=== PATIENT | female | born 1950 | race Caucasian/White ===

== ENCOUNTER → 2018-07-31 08:36 | Outpatient (CLI) | payer MEDICARE, OTHER, SELFPAY | PROVIDERS: PCP Nurse Practitioner Family; Visit Provider Physician Assistant | DX: R05 Cough (principal) | CPT/HCPCS: 87070; 87205 ==

== ENCOUNTER → 2018-12-16 09:51 | Outpatient (CLI) | payer MEDICARE, OTHER, SELFPAY ==
--- NOTE | 2018-12-16 | CA_ITS ---
PROCEDURE: 2-D M-mode and color Doppler study INDICATIONS FOR THE TEST: Chest pain COPD Heart Murmur Tobacco Smoking Palpitations+ Fatigue Syncope Edema Hypertension+Diabetes Mellitus Rheumatic Fever SOB+FERNANDEZ Obesity Hyperlipidemia+ Family History HD Additional History stents,cad,cabg PATIENT INFORMATION HEIGHT: 64 WEIGHT:187 GENDER: Female B/P:160/85 2-D/M-MODE INTERPRETATION: 2-D MEASUREMENTS OBSERVED VALUES IN CMS Right Ventricular Dimension (RVDd) 2.5 Interventricular Septum (Thickness)(IVsd) 0.9 Left Ventricular Internal Dimensions(LVIDd) 4.3 Left Ventricular Posterior Wall (Thickness)(LVPWd) 1.1 Aortic Root 3.0 Aortic Cusp Separation 1.6 Left Atrial Dimensions (LAD) 4.2 2D 1. Left atrium is mildly enlarged, left ventricle is mildly dilated, there is mild concentric left ventricular hypertrophy, visually estimated ejection fraction 50% with no regional wall motion abnormality. 2. The right atrium is mildly enlarged, right ventricle is mildly dilated with normal contractility. 3. The aortic valve is minimally thickened and fibrosed. 4. The mitral and tricuspid valve leaflets are minimally thickened. 5. The pulmonic valve is poorly visualized. 6. No significant pericardial effusion noted. DOPPLER INTERROGATION: Doppler interrogation of the aortic, mitral and tricuspid valvular presence of mild mitral and tricuspid regurgitation, tricuspid regurgitation jet velocity is inadequate for calculation of the right ventricular systolic pressure, diastolic parameters are inconclusive. CONCLUSION: 1. Biatrial enlargement, mildly dilated left ventricle, visually estimated ejection fraction of 50% with no regional wall motion abnormality, diastolic parameters are inconclusive. 2. Mildly enlarged right ventricle with normal contractility. 3. Mild mitral and tricuspid regurgitation 4. No significant pericardial effusion noted.
== END ==
PROVIDERS: PCP Nurse Practitioner Family; Visit Provider Nurse Practitioner Family
DX: R00.2 Palpitations (principal); I48.91 Unspecified atrial fibrillation; I25.10 Atherosclerotic heart disease of native coronary artery without angina pectoris
CPT/HCPCS: 93306

== ENCOUNTER → 2018-12-26 07:10 | Outpatient (CLI) | payer MEDICARE, OTHER, SELFPAY ==
--- NOTE | 2018-12-26 07:12 | NM_ITS ---
History and Indications: Hyperlipidemia, coronary artery disease, atrial fibrillation, status post bypass surgery. Procedure: Patient received 0.4 mg of intravenous Lexiscan, resting heart rate was 61 bpm resting blood pressure 157/82. With Lexiscan maximum heart rate achieved was 84 bpm which is less than 85% of the maximum predicted heart rate and a blood pressure was 139/88. With Lexiscan patient complained of shortness of breath and headache. Electrocardiogram: Resting echocardiogram showed atrial fibrillation nonspecific ST-T changes, with Lexiscan there is less than 1.[address] segment depression noted from the baseline EKG. The EKG portion of the Lexiscan Myoview is nondiagnostic. Cardiac stress and resting SPECT images: Cardiac stress and resting SPECT images were obtained using technetium 99 Myoview 31.8 mCi stress and 10.1 mCi at rest. Gated SPECT further analysis of segmental wall motion and calculation of the ejection fraction also done. Cardiac stress and resting SPECT show uniform myocardial activity without segmental abnormality, computer derived ejection fraction is 55% with no regional wall motion abnormality, right ventricle is normal size and contractility. Conclusion: 1. The EKG portion of the Lexiscan Myoview is nondiagnostic. 2. No scintigraphic evidence of reversible ischemia seen, greater derived ejection fraction is 55% with no regional wall motion abnormality, right ventricle is normal size and contractility. 3. Normal Lexiscan Myoview study.
--- NOTE | 2018-12-26 07:12 | CI_ITS ---
Cerebrovascular Exam Indications: 780.4 Dizziness and giddiness. AF IMPRESSIONS 1. The bilateral vertebral arteries are patent with normal antegrade flow. 2. Study suggests less than 20% stenosis involving the right internal carotid artery and the left internal carotid artery. 3. Tortuous carotid arteries seen bilaterally. Carotid duplex study. Complete study and Doppler flow study including spectral analysis, color and [place] scale imaging. Height: Height: 162.6cm. Height: 64in. Weight: Weight: 84.8kg. Weight: 186.6lb. Body mass index: BMI: 32.1kg/m^2. Body surface area: BSA: 1.99m^2. Location: Vascular laboratory. Patient status: Outpatient. Tables: Arterial flow: + +--------+--------+ Location V sys V ed + +--------+--------+ Right CCA - proximal 69.1cm/s 20.4cm/s + +--------+--------+ Right CCA - distal 53.4cm/s 17.3cm/s + +--------+--------+ Right ECA 63.6cm/s -------- + +--------+--------+ Right ICA - proximal 53.4cm/s 12.6cm/s + +--------+--------+ Right ICA - mid 64.4cm/s 26.7cm/s + +--------+--------+ Right ICA - distal 54.2cm/s 20.4cm/s + +--------+--------+ Right vertebral 46.4cm/s -------- + +--------+--------+ Left CCA - proximal 64cm/s 18.8cm/s + +--------+--------+ Left CCA - distal 40.1cm/s 16.5cm/s + +--------+--------+ Left ECA 63.6cm/s -------- + +--------+--------+ Left ICA - proximal 40.9cm/s 15.7cm/s + +--------+--------+ Left ICA - mid 77.8cm/s 27.5cm/s + +--------+--------+ Left ICA - distal 44cm/s 18.1cm/s + +--------+--------+ Left vertebral 36.9cm/s -------- + +--------+--------+ Velocity ratios: + + + + + + Right, V sys Right, V ed Left, V sys Left, V ed + + + + + + Max ICA/dist CCA 1.21 1.54 1.94 1.67 + + + + + + (Report amended ) Electronically signed by: Zhao Paul [id number]
--- NOTE | 2018-12-26 09:51 | HMH.ITSHM ---
Current Home Medications as stated by this patient Supriya Andres or call center support representative. []eliquis atorvastatin asa metoprolol
== END ==
PROVIDERS: PCP Nurse Practitioner Family; Visit Provider Internal Medicine Cardiovascular Disease
DX: E66.9 Obesity, unspecified (principal); E78.5 Hyperlipidemia, unspecified; I10 Essential (primary) hypertension; I25.10 Atherosclerotic heart disease of native coronary artery without angina pectoris; I25.2 Old myocardial infarction; I48.91 Unspecified atrial fibrillation; J44.9 Chronic obstructive pulmonary disease, unspecified; R06.83 Snoring; R09.89 Other specified symptoms and signs involving the circulatory and respiratory systems; R40.0 Somnolence; R53.83 Other fatigue; Z87.891 Personal history of nicotine dependence; Z95.1 Presence of aortocoronary bypass graft
CPT/HCPCS: 78452; 93017; 93880; A9502; J2785

== ENCOUNTER → 2019-01-16 11:45 | Outpatient (CLI) | payer MEDICARE, OTHER, SELFPAY ==
--- NOTE | 2019-01-16 12:00 | XR_ITS ---
XR chest 2V HISTORY: ITS.REASON: amiodarone therapy/pre start ORDERING PHYSICIAN: Heath Noriega MD PATIENT AGE: 68 years COMPARISON: None FINDINGS: Prior CABG. Normal heart size. No lobar consolidation or collapse or significant chronic changes evident. Minimal increased density is present in the left CP angle nonspecific. Follow-up may confirm stability. Coronary artery calcification and/or stent noted. No acute bony findings. There is an old left humeral neck fracture IMPRESSION: Prior CABG. Opacity noted in the left CP angle nonspecific. No significant fibrotic change evident
[2019-01-16 13:17] LABS: Alanine Aminotransferase 26 U/L (12-78); Albumin Level 3.5 gm/dL (3.4-5.0); Alkaline Phosphatase 114 U/L (46-116); Aspartate Amino Transferase 15 U/L (15-37); Bilirubin,Direct 0.2 mg/dL (0.0-0.2); Bilirubin,Indirect 0.6 mg/dL (0.0-0.9); Bilirubin,Total 0.8 mg/dL (0.2-1.0); Free T4 (Free Thyroxine) 0.95 ng/dl (0.76-1.46); Thyroid Stimulating Hormone 1.17 uIU/ml (0.358-3.740); Total Protein,Serum 6.6 gm/dL (6.4-8.2)
== END ==
PROVIDERS: Visit Provider Internal Medicine Cardiovascular Disease
DX: E78.5 Hyperlipidemia, unspecified (principal); I10 Essential (primary) hypertension; I25.10 Atherosclerotic heart disease of native coronary artery without angina pectoris; I25.2 Old myocardial infarction; I48.91 Unspecified atrial fibrillation; J44.9 Chronic obstructive pulmonary disease, unspecified; R06.02 Shortness of breath; R53.83 Other fatigue; Z79.899 Other long term (current) drug therapy; Z87.891 Personal history of nicotine dependence; Z95.1 Presence of aortocoronary bypass graft
CPT/HCPCS: 36415; 71046; 80076; 84439; 84443

== ENCOUNTER 2019-05-08 16:28 | Observation (INO) ==
--- NOTE | 2019-05-08 16:46 | Emergency Department Note ---
ED Disposition Clinical Impression: Thoracic compression fracture, Troponin level elevated Disposition: Admitted as Observation Condition on Discharge: Good Referrals: Provider,Referral, [Referring] - Time of Disposition: 20:25 - Critical Care Critical Care Time: No Attestation: On 05/08/19, the high probability of a clinically significant, sudden or life threatening deterioration of the following system(s) required my full and direct attention, intervention and personal management. The time I documented below is in addition to time spent performing reported procedures but includes the following listed in this critical care notation. Medical Decision Making - Medical Records Medical records reviewed: Yes: I reviewed the patient's medical records. - Donald Inquiry Pt receiving controlled substance: No Donald was queried for this patient: No Vital Signs: 05/08/19 16:29 05/08/19 16:41 05/08/19 20:10 Temperature 97.7 F 98.2 F Temperature Source Temporal Artery Scan Oral Pulse Rate [Left Radial] 138 H 74 55 L Respiratory Rate 22 18 Blood Pressure [Left Arm] 110/73 107/75 L 117/69 Blood Pressure Mean [Left Arm] 85 85 85 Blood Pressure Source [Left Arm] Automatic Cuff Automatic Cuff Blood Pressure Position [Left Arm] Sitting Supine 02 Sat by Pulse Oximetry 96 95 99 Oxygen Delivery Method Room Air Room Air - Lab Data Lab results reviewed: Yes: I reviewed the patient's lab results. Lab Results 05/08/19 16:30: WBC 7.6, RBC 5.33, Hgb 15.5, Hct 47.5 H, MCV 89.2, MCH 29.1, MCHC 32.6, RDW 13.8, Plt Count 360, MPV 7.4, Neut % (Auto) 38.9, Lymph % (Auto) 53.9 H, [place] % (Auto) 4.0, Eos % (Auto) 2.9, Baso % (Auto) 0.3, Neut # (Auto) 3.0, Lymph # (Auto) 4.1, [place] # (Auto) 0.3, Eos # (Auto) 0.2, Baso # (Auto) 0.0, Total Counted 100, Neutrophils % (Manual) 42, Lymphocytes % (Manual) 52 H, Monocytes % (Manual) 4, Eosinophils % (Manual) 2, Platelet Estimate Clumped, RBC Morphology Normal 05/08/19 16:30: Sodium 141, Potassium 3.8, Chloride 106, Carbon Dioxide 26, Anion Gap 12.8, BUN 13, Creatinine 1.07 H, Estimated Creat Clear 68, Estimated GFR 51 L, Est GFR ( Amer) 62, Glucose 143 H, Calcium 9.1, Total Bilirubin 0.8, AST 22, ALT 31, Alkaline Phosphatase 116, Troponin I < 0.02, Total Protein 6.8, Albumin 3.6, Globulin 3.2, Albumin/Globulin Ratio 1.1 05/08/19 16:30: D-Dimer 550 H* 05/08/19 16:30: B-Natriuretic Peptide 75 05/08/19 18:40: Troponin I 0.10 H Result diagrams: 05/08/19 16:30 05/08/19 16:30 Orders (Tests/Meds): ED MEDICATIONS Discontinued Medications Generic Name Dose Route Start Last Admin Trade Name Freq PRN Reason Stop Dose Admin Ioversol 75 ml 05/08/19 19:07 05/08/19 19:07 Rad-Optiray 350 100ml Vial IV 05/08/19 19:08 75 ml ONCE ONE Administration Protocol Ketorolac Tromethamine 15 mg 05/08/19 16:42 05/08/19 16:59 Toradol 30mg/Ml Vial IV 05/08/19 16:43 15 mg ONCE ONE Administration Morphine Sulfate 2 mg 05/08/19 16:40 Morphine 2mg/Ml Syringe IV 05/08/19 16:41 ONCE ONE Ondansetron HCl 4 mg 05/08/19 16:40 05/08/19 16:58 Zofran 4mg/2ml Vial IV 05/08/19 16:41 4 mg ONCE ONE Administration Sodium Chloride 10 ml 05/08/19 19:07 05/08/19 19:07 Rad-Saline Flush 10ml Syringe IV 05/08/19 19:08 10 ml ONCE ONE Administration ORDERS Category Date Time Status CT chest w con Stat Cat Scan 05/08/19 18:30 Taken EKG Request [ECG Request by /Nse] Stat Y 05/08/19 19:49 Ordered - PAULINE Score for Non-Stemi Age of Patient: 60-69 years old Heart Rate: 70-89 bpm Systolic Blood Pressure: 100-119 mmHg CHF [place] Class: I-No CHF Other Risk Factors: None General Adult HPI - General Chief complaint: Shortness of Breath/Dyspnea Stated complaint: sudden onset of diaphoresis, soa Time Seen by Provider: 05/08/19 16:43 Mode of Arrival: EMS Source of Information: Patient, Relative Limitations: No Limitations Description of Symptoms (Recalled from ER Triage Doc. by RN): pt with onset of pain in between her shoulder blades and diaphoresis; history of afib, which she is gonna be treated with an ablation next week - History of Present Illness HPI narrative: two weeks mid-thoracic back pain, markedly worsened today. Severe dyspnea associated with the pain, somewhat better by arrival. History of remote CABG. AFib, due to appointment for ablation next week at - Related Data Home Medications Medication Instructions Recorded Confirmed apixaban 5 mg tablet 5 mg PO BID 12/19/18 05/08/19 atorvastatin 40 mg tablet 40 mg PO DAILY 12/19/18 05/08/19 fluticasone fur. 100 mcg-umeclid 1 inh INHALATION DAILY 12/19/18 05/08/19 62.5 mcg-vilant 25 mcg inhalat.powder metoprolol succinate ER 50 mg 50 mg PO DAILY 12/19/18 05/08/19 tablet,extended release 24 hr ropinirole 1 mg tablet 1 mg PO BID tab 12/19/18 05/08/19 sennosides 8.6 mg tablet 8.6 mg PO BID PRN 12/19/18 05/08/19 temazepam 15 mg capsule 15 mg PO DAILY PRN cap 12/19/18 05/08/19 Guaifenesin/Dextromethorphan 1 tab PO BID 05/08/19 05/08/19 [Mucinex Dm ER 1,200-60 mg Tab] Allergies Allergy/AdvReac Type Severity Reaction Status Date / Time codeine Allergy Mild Verified 01/31/19 11:11 diazepam [From Valium] Allergy Mild Verified 01/31/19 11:11 diphenhydramine Allergy Mild Verified 01/31/19 11:11 [From Benadryl] Penicillins Allergy Mild Verified 01/31/19 11:11 [facility] History - Hepatitis A Screen Drug use history?: No High risk sexual behaviors?: No History of sexually transmitted infection?: No Currently employed?: No Childcare worker?: No Do you have indoor plumbing?: Yes Do you have electricity?: Yes Attestation statement:: This patient has been screened for Hepatitis A risk factors. I have reviewed the patient's past medical history: Yes Medical History: Reports:: Atrial Fibrillation, Chronic Obstructive Pulmonary Disease (COPD), Coronary Artery Disease, Hyperlipidemia, Hypertension Denies:: Internal Pacemaker, Seizures Other Medical History: Denies: Blood Transfusion Reaction Other Surgeries: Yes: CABG, Colonoscopy, Hysterectomy-Total, Other (cardioversionX2). No: Pacemaker Amputation: No Fractures: No - Social History Smoking Status: Former smoker Tobacco Type: cigarettes #Yrs smoked (if former smoker): 45 Alcohol Intake: never Substance Use Type: denies use Occupational Status: retired Housing: house Household Members: spouse Family Hx:: Coronary Artery Disease, Heart Attack Comment: Mother-[place]@60's. Father-[place]@unknown age. Sister-CAD ROS Obtained: Yes All systems reviewed & no additional complaints - Constitutional Constitutional: Denies fever(s) - Eyes Eyes: Denies blurry vision - Cardiovascular Cardiovascular: Denies chest pain, Denies chest pain at rest, Reports dyspnea - Respiratory Respiratory: Yes chest congestion, Yes cough - Gastrointestinal Gastrointestingal: Denies: abdominal pain, diarrhea, vomiting - Musculoskeletal Musculoskeletal: Denies joint swelling, Denies limited range of motion, Denies muscle cramps, Denies muscle weakness - Neurologic Neurologic: Denies tingling/numbness/burning sensations - Hematologic/Lymphatic Henatologic/Lymphatic: Denies easy bleeding, Denies easy bruising Physical Exam - General General appearance: alert, in distress - Eye Eye exam: Present: normal appearance, PERRL, EOMI - ENT ENT exam: Present: normal exam, normal oropharynx, mucous membranes moist, TM's normal bilaterally, normal external ear exam - Neck Neck exam: Present: normal inspection, full ROM, trachea midline. Absent: meningismus, lymphadenopathy - Chest Chest inspection: Present: other (cabg scar). Absent: normal inspection - Respiratory Respiratory exam: Absent: normal lung sounds bilaterally, respiratory distress, wheezes - Cardiovascular Cardiovascular exam: Present: regular rate, normal rhythm. Absent: JVD - Abdominal Exam Abdominal exam: Present: soft. Absent: distention, tenderness, guarding, pulsatile mass, hernia - Extremities Exam Extremities exam: Present: normal inspection, full ROM, normal capillary refill. Absent: calf tenderness - Back Exam Back exam: Present: normal inspection. Absent: tenderness - Neurological Exam Neurological exam: Present: alert, oriented X3 - Psychiatric Psychiatric exam: Present: normal affect, normal mood - Skin Skin exam: Present: warm, dry, intact, normal color
[2019-05-08 16:48] LABS: Basophils % 0.3 % (0.1-2.0); Eosinophils # 0.2 K/mm3 (0.0-0.4); Eosinophils % 2.9 % (0.1-12.0); Hematocrit 47.5 % (37.0-47.0); Hemoglobin 15.5 g/dL (12.2-16.2); Lymphocytes # 4.1 K/mm3 (0.7-4.5); Lymphocytes % 53.9 % (10-50); Mean Corpuscular HGB Conc 32.6 g/dL (31.8-35.4); Mean Corpuscular Volume 89.2 fl (81-99); Mean Platelet Volume 7.4 fl (7.4-10.4); Monocytes # 0.3 K/mm3 (0.1-1.0); Neutrophils % 38.9 % (37.0-80.0); Platelet Count 360 K/mm3 (142-424); Red Blood Count 5.33 M/mm3 (4.20-5.40); Red Cell Distribution Width 13.8 % (11.5-17.5); White Blood Count 7.6 K/mm3 (4.8-10.8)
[2019-05-08 16:59] LABS: Alanine Aminotransferase 31 U/L (12-78); Albumin Level 3.6 gm/dL (3.4-5.0); Albumin/Globulin Ratio 1.1 (1.1-1.8); Alkaline Phosphatase 116 U/L (46-116); Anion Gap 12.8 mEq/L (5-15); Aspartate Amino Transferase 22 U/L (15-37); Bilirubin,Total 0.8 mg/dL (0.2-1.0); Blood Urea Nitrogen 13 mg/dL (7-18); Calcium 9.1 mg/dL (8.5-10.1); Carbon Dioxide 26 mmol/L (21.0-32.0); Chloride 106 mmol/L (98-107); Globulin 3.2 gm/dl (1.3-3.2); Glucose 143 mg/dL (74-106); Sodium 141 mmol/L (136-145); Total Protein,Serum 6.8 gm/dL (6.4-8.2)
[2019-05-08 17:32] LABS: Eosinophils % 2 % (0-3); Lymphocytes % 52 % (10-50); Monocytes % 4 % (2-9); Neutrophils % 42 % (42-76); RBC Morphology Normal; Total Cells Counted 100
[2019-05-09 05:57] LABS: Basophils % 0.5 % (0.1-2.0); Eosinophils # 0.5 K/mm3 (0.0-0.4); Eosinophils % 8.2 % (0.1-12.0); Hematocrit 38.5 % (37.0-47.0); Mean Corpuscular Volume 90.3 fl (81-99); Mean Platelet Volume 7.6 fl (7.4-10.4); Monocytes # 0.4 K/mm3 (0.1-1.0); Monocytes % 6.1 % (1.7-9.3); Neutrophils # 3.6 K/mm3 (1.8-7.8); Neutrophils % 55.2 % (37.0-80.0); Platelet Count 259 K/mm3 (142-424); Red Blood Count 4.26 M/mm3 (4.20-5.40); Red Cell Distribution Width 13.8 % (11.5-17.5); White Blood Count 6.6 K/mm3 (4.8-10.8)
[2019-05-09 06:11] LABS: Calcium 8.2 mg/dL (8.5-10.1)
[2019-05-09 06:24] LABS: Hemoglobin 12.3 g/dL (12.2-16.2)
--- NOTE | 2019-05-09 08:42 | History & Physical Report ---
*Admission Date: 05/08/19 *Chief complaint: Back pain/chest pain/shortness of air *History of present illness: 68-year-old white female with history of coronary disease, atrial fibrillation- scheduled for ablation early next week-who was found by a friend of hers with shortness of air, chest pain and back pain. Encouraged to come to the hospital. She was found to have acute compression fracture of T7, old compression fracture of T4-but she adamantly denies any kind of mechanism of injury. She was also found to have mildly elevated troponin levels. Admitted overnight for further evaluation. [facility] History I have reviewed the patient's past medical history: Yes Medical History: Reports:: Arrhythmia, Atrial Fibrillation, Cancer, Congestive Heart Failure, Chronic Obstructive Pulmonary Disease (COPD), Coronary Artery Disease, Hyperlipidemia, Hypertension, Myocardial Infarction (THREE) Denies:: Diabetes Mellitus Type 1, Diabetes Mellitus Type 2, Internal Pacemaker, MRSA, Seizures *Have you ever received a pneumonia vaccine?: Yes *Have you received a flu vaccine this season?: Yes Other Medical History: Reports: Chemotherapy. Denies: Blood Transfusion Reacti on Laterality Cases: Bilateral: Total Knee Replacement Other Surgeries: Yes: CABG, Cardiac Catheterization, Colonoscopy, Colon Resection, Hysterectomy-Total, Hysterectomy-Partial, Other (cardioversionX2). No: Pacemaker Amputation: No Fractures: No - *Social History Educational Level: Attended College Smoking Status: Former smoker Tobacco Type: cigarettes #Yrs smoked (if former smoker): 45 Alcohol Intake: never Substance Use Type: denies use *Occupational Status:: retired Housing: house Household Members: spouse *Travel in the last 8 weeks: None - Psychiatric History Expresses thoughts of harming self/others: None Suicide Plan Description: No Plan Family Hx:: Cancer, Coronary Artery Disease, Diabetes, Heart Attack, Hyperlipidemia, Hypertension Review of Systems - Review of Systems Review of systems:: pertinent systems reviewed and negative unless documented below - Constitutional Reports excessive sweating, Reports lack of energy, Denies anorexia, Denies body ache(s) - Eyes Denies blind spots, Denies blurry vision - ENT Denies abnormal hearing - *Cardiovascular Reports chest pain, Reports chest pain at rest, Reports excessive sweating, Reports shortness of breath - *Respiratory Denies change in phlegm color, Denies chest congestion, Denies cough - *Gastrointestinal Reports abdominal pain, Reports belching, Reports bloating - *Musculoskeletal Denies abnormal walking, Denies joint pain - Integumentary/Breasts Denies acne - *Neurologic Reports abnormal walking, Denies tingling/numbness/burning sensations - Psychiatric Denies abnormal sleep pattern, Denies lack of enjoyment - Endocrine Denies cold intolerance, Denies excessive sweating Meds Home Medications Medication Instructions Recorded Confirmed Type apixaban 5 mg tablet 5 mg PO BID 12/19/18 05/08/19 History atorvastatin 40 mg tablet 40 mg PO DAILY 12/19/18 05/08/19 History fluticasone fur. 100 mcg-umeclid 1 inh INHALATION DAILY 12/19/18 05/08/19 History 62.5 mcg-vilant 25 mcg inhalat.powder metoprolol succinate ER 50 mg 100 mg PO DAILY 12/19/18 05/08/19 History tablet,extended release 24 hr ropinirole 1 mg tablet 2 mg PO HS tab 12/19/18 05/08/19 History sennosides 8.6 mg tablet 8.6 mg PO DAILY 12/19/18 05/08/19 History temazepam 15 mg capsule 15 mg PO DAILY PRN cap 12/19/18 05/08/19 History Guaifenesin/Dextromethorphan 1 tab PO BID 05/08/19 05/08/19 History [Mucinex Dm ER 1,200-60 mg Tab] Allergies Allergy/AdvReac Type Severity Reaction Status Date / Time codeine Allergy Mild Verified 01/31/19 11:11 diazepam [From Valium] Allergy Mild Verified 01/31/19 11:11 diphenhydramine Allergy Mild Verified 01/31/19 11:11 [From Benadryl] Penicillins Allergy Mild Verified 01/31/19 11:11 Exam Vital signs and Labs for Last 24 Hours: Temp Pulse Resp BP Pulse Ox 98.2 F 51 L 22 112/65 98 05/09/19 04:00 05/09/19 04:00 05/09/19 08:19 05/09/19 04:00 05/09/19 04:00 Laboratory Results - last 24 hr 05/08/19 16:30: WBC 7.6, RBC 5.33, Hgb 15.5, Hct 47.5 H, MCV 89.2, MCH 29.1, MCHC 32.6, RDW 13.8, Plt Count 360, MPV 7.4, Neut % (Auto) 38.9, Lymph % (Auto) 53.9 H, [place] % (Auto) 4.0, Eos % (Auto) 2.9, Baso % (Auto) 0.3, Neut # (Auto) 3.0, Lymph # (Auto) 4.1, [place] # (Auto) 0.3, Eos # (Auto) 0.2, Baso # (Auto) 0.0, Total Counted 100, Neutrophils % (Manual) 42, Lymphocytes % (Manual) 52 H, Monocytes % (Manual) 4, Eosinophils % (Manual) 2, Platelet Estimate Clumped, RBC Morphology Normal 05/08/19 16:30: Sodium 141, Potassium 3.8, Chloride 106, Carbon Dioxide 26, Anion Gap 12.8, BUN 13, Creatinine 1.07 H, Estimated Creat Clear 68, Estimated GFR 51 L, Est GFR ( Amer) 62, Glucose 143 H, Calcium 9.1, Total Bilirubin 0.8, AST 22, ALT 31, Alkaline Phosphatase 116, Troponin I < 0.02, Total Protein 6.8, Albumin 3.6, Globulin 3.2, Albumin/Globulin Ratio 1.1 05/08/19 16:30: D-Dimer 550 H* 05/08/19 16:30: B-Natriuretic Peptide 75 05/08/19 18:40: Troponin I 0.10 H 05/08/19 23:42: Troponin I 0.11 H 05/09/19 05:38: WBC 6.6, RBC 4.26, Hgb 12.3 D, Hct 38.5, MCV 90.3, MCH 28.9, MCHC 32.0, RDW 13.8, Plt Count 259 D, MPV 7.6, Neut % (Auto) 55.2, Lymph % (Auto) 30.0, [place] % (Auto) 6.1, Eos % (Auto) 8.2, Baso % (Auto) 0.5, Neut # (Auto) 3.6, Lymph # (Auto) 2.0, [place] # (Auto) 0.4, Eos # (Auto) 0.5 H, Baso # (Auto) 0.0 05/09/19 05:38: Sodium 143, Potassium 4.0, Chloride 110 H, Carbon Dioxide 27, Anion Gap 10.0, BUN 11, Creatinine 0.87, Estimated Creat Clear 74, Estimated GFR 65, Est GFR ( Amer) 79 D, Glucose 99 D, Calcium 8.2 L I & O for Last 24 hours: Intake & Output 05/06/19 05/07/19 05/08/19 05/09/19 11:59 11:59 11:59 11:59 Intake Total 1295 / 1295 Balance 1295 / 1295 Weight 189 lb 9 oz Narrative: Patient is awake, alert, pleasant. Obesity noted. Lungs are clear back patient cannot take a deep breath because of some splinting pain in her back. No overt back tenderness or gibbus deformity noted. Patient is able to move her arms and legs well and equally. Heart rate irregular but rate controlled. Abdomen soft. No visible JVD or edema, otherwise ENT exam intact. Assessment and Plan (1) Atrial fibrillation Current visit: Yes Status: Acute Category: Medical Code(s): I48.91 - Unspecified atrial fibrillation Currently on appropriate anticoagulation although patient is only been taking her medication once a day because of cost reasons. Continue to take this medication. Plan for catheterization given her symptoms in preparation for ablation on Sunday. (2) Thoracic compression fracture Current visit: Yes Status: Acute Category: Medical Code(s): S22.000A - Wedge compression fracture of unspecified thoracic vertebra, initial encounter for closed fracture I think this is the cause of most of her pain. Pain clinic evaluation for kyphoplasty evaluation. Continue morphine. If cleared by cardiology can go home with oral pain medication after catheterization procedure (3) Troponin level elevated Current visit: Yes Status: Acute Category: Medical Code(s): R74.8 - Abnormal levels of other serum enzymes See above notes. (4) CAD (coronary artery disease) Current visit: No Status: Chronic Qualifiers: Coronary Disease-Associated Artery/Lesion type: [place] artery [place] vs. transplanted heart: [place] heart Associated angina: with other forms of angina Qualified Code(s): I25.118 - Atherosclerotic heart disease of [place] coronary artery with other forms of angina pectoris Category: Medical Code(s): I25.10 - Atherosclerotic heart disease of [place] coronary artery without angina pectoris See above notes.
--- NOTE | 2019-05-09 09:01 | Consult Report ---
History of Present Illness Consult date: 05/09/19 Requesting physician: Michael Baez Consult reason: chest pain Chief complaint: SOA, chest discomfort Additional Medical History:: 1. CAD A. CABG, 2002 B. History of SD's C. History of AMY with last one about 2014, [place], [place] 2. Atrial fibrillation, permanent, on anticoagulation therapy A. 2 failed cardioversions with plans for ablation therapy, 04/2019, at 3. Compression fractures of thoracic spine, discovered 04/2019 4. Hypertension 5. Hyperlipidemia 6. COPD History of present illness: 68-year-old white female with history of coronary disease, atrial fibrillation- scheduled for ablation early next week-who was found by a friend of hers with shortness of air, chest pain and back pain. Encouraged to come to the hospital. She was found to have acute compression fracture of T7, old compression fracture of T4-but she adamantly denies any kind of mechanism of injury. She was also found to have mildly elevated troponin levels. Admitted overnight for further evaluation The above per Dr. Baez Patient relates some mid back discomfort radiating around to underneath the right breast for 1 to 2 weeks. However yesterday while out fishing with her grandson patient did develop some mid scapular discomfort that was worse with movement and deep breathing but was associated with a new complaint of shortness of breath. Upon returning home and taking a shower the patient states symptoms worsened. After finishing her shower and having her grandson rubs some central wall on her back for pain relief patient developed severe anterior redness and diaphoresis which was very concerning to her. Shortness of breath did worsen. Upon advisement from a family member patient did come to the emergency department via EMS for further evaluation. Previous episodes of angina did include shortness of breath and chest discomfort. EKG here shows sinus rhythm with no acute ST segment changes. Initial troponin was normal but follow-up troponins have returned mildly elevated. Cardiology consulted for evaluation recommendation. [facility] History Medical History: Reports:: Arrhythmia, Atrial Fibrillation, Cancer, Congestive Heart Failure, Chronic Obstructive Pulmonary Disease (COPD), Coronary Artery Disease, Hyperlipidemia, Hypertension, Myocardial Infarction (THREE) Denies:: Diabetes Mellitus Type 1, Diabetes Mellitus Type 2, Internal Pacemaker, MRSA, Seizures *Have you ever received a pneumonia vaccine?: Yes *Have you received a flu vaccine this season?: Yes Other Medical History: Reports: Chemotherapy. Denies: Blood Transfusion Reaction Laterality Cases: Bilateral: Total Knee Replacement Other Surgeries: Yes: CABG, Cardiac Catheterization, Colonoscopy, Colon Resection, Hysterectomy-Total, Hysterectomy-Partial, Other (cardioversionX2). No: Pacemaker Amputation: No Fractures: No - *Social History Educational Level: Attended College Smoking Status: Former smoker Tobacco Type: cigarettes #Yrs smoked (if former smoker): 45 Alcohol Intake: never Substance Use Type: denies use *Occupational Status:: retired Housing: house Household Members: spouse *Travel in the last 8 weeks: None - Psychiatric History Expresses thoughts of harming self/others: None Suicide Plan Description: No Plan Family Hx:: Cancer, Coronary Artery Disease, Diabetes, Heart Attack, Hyperlipidemia, Hypertension Meds Home Medications Medication Instructions Recorded Confirmed Type apixaban 5 mg tablet 5 mg PO BID 12/19/18 05/08/19 History atorvastatin 40 mg tablet 40 mg PO DAILY 12/19/18 05/08/19 History fluticasone fur. 100 mcg-umeclid 1 inh INHALATION DAILY 12/19/18 05/08/19 History 62.5 mcg-vilant 25 mcg inhalat.powder metoprolol succinate ER 50 mg 100 mg PO DAILY 12/19/18 05/08/19 History tablet,extended release 24 hr ropinirole 1 mg tablet 2 mg PO HS tab 12/19/18 05/08/19 History sennosides 8.6 mg tablet 8.6 mg PO DAILY 12/19/18 05/08/19 History temazepam 15 mg capsule 15 mg PO DAILY PRN cap 12/19/18 05/08/19 History Guaifenesin/Dextromethorphan 1 tab PO BID 05/08/19 05/08/19 History [Mucinex Dm ER 1,200-60 mg Tab] Allergies Allergy/AdvReac Type Severity Reaction Status Date / Time codeine Allergy Mild Verified 01/31/19 11:11 diazepam [From Valium] Allergy Mild Verified 01/31/19 11:11 diphenhydramine Allergy Mild Verified 01/31/19 11:11 [From Benadryl] Penicillins Allergy Mild Verified 01/31/19 11:11 Review of Systems - *Cardiovascular Reports chest pain with activity, Reports shortness of breath - *Respiratory Reports shortness of breath, Reports shortness of breath with activity - *Gastrointestinal Denies abdominal pain, Denies loose stools, Denies nausea, Denies vomiting - *Genitourinary Denies blood in urine - *Musculoskeletal Reports back pain, Denies joint pain - *Neurologic Reports abnormal walking, Denies abnormal hearing, Denies tingling/numbness/burning sensations Exam Vital signs and Labs for Last 24 Hours: Temp Pulse Resp BP Pulse Ox 98.5 F 54 L 22 129/84 94 L 05/09/19 08:00 05/09/19 08:00 05/09/19 08:19 05/09/19 08:00 05/09/19 08:00 Laboratory Results - last 24 hr 05/08/19 16:30: WBC 7.6, RBC 5.33, Hgb 15.5, Hct 47.5 H, MCV 89.2, MCH 29.1, MCHC 32.6, RDW 13.8, Plt Count 360, MPV 7.4, Neut % (Auto) 38.9, Lymph % (Auto) 53.9 H, [place] % (Auto) 4.0, Eos % (Auto) 2.9, Baso % (Auto) 0.3, Neut # (Auto) 3.0, Lymph # (Auto) 4.1, [place] # (Auto) 0.3, Eos # (Auto) 0.2, Baso # (Auto) 0.0, Total Counted 100, Neutrophils % (Manual) 42, Lymphocytes % (Manual) 52 H, Monocytes % (Manual) 4, Eosinophils % (Manual) 2, Platelet Estimate Clumped, RBC Morphology Normal 05/08/19 16:30: Sodium 141, Potassium 3.8, Chloride 106, Carbon Dioxide 26, Anion Gap 12.8, BUN 13, Creatinine 1.07 H, Estimated Creat Clear 68, Estimated GFR 51 L, Est GFR ( Amer) 62, Glucose 143 H, Calcium 9.1, Total Bilirubin 0.8, AST 22, ALT 31, Alkaline Phosphatase 116, Troponin I < 0.02, Total Protein 6.8, Albumin 3.6, Globulin 3.2, Albumin/Globulin Ratio 1.1 05/08/19 16:30: D-Dimer 550 H* 05/08/19 16:30: B-Natriuretic Peptide 75 05/08/19 18:40: Troponin I 0.10 H 05/08/19 23:42: Troponin I 0.11 H 05/09/19 05:38: WBC 6.6, RBC 4.26, Hgb 12.3 D, Hct 38.5, MCV 90.3, MCH 28.9, MCHC 32.0, RDW 13.8, Plt Count 259 D, MPV 7.6, Neut % (Auto) 55.2, Lymph % (Auto) 30.0, [place] % (Auto) 6.1, Eos % (Auto) 8.2, Baso % (Auto) 0.5, Neut # (Auto) 3.6, Lymph # (Auto) 2.0, [place] # (Auto) 0.4, Eos # (Auto) 0.5 H, Baso # (Auto) 0.0 05/09/19 05:38: Sodium 143, Potassium 4.0, Chloride 110 H, Carbon Dioxide 27, Anion Gap 10.0, BUN 11, Creatinine 0.87, Estimated Creat Clear 74, Estimated GFR 65, Est GFR ( Amer) 79 D, Glucose 99 D, Calcium 8.2 L I & O for Last 24 hours: Intake & Output 05/06/19 05/07/19 05/08/19 05/09/19 11:59 11:59 11:59 11:59 Intake Total 1295 / 1295 Balance 1295 / 1295 Weight 189 lb 9 oz - *Routine HEENT Exam Head: Present: normocephalic Eye: Present: EOMI, PERRL ENT: Present: mucous membranes moist - *Routine Neck Exam Present: supple. Absent: JVD, carotid bruit - *Routine Respiratory Exam Present: CTA bilaterally. Absent: accessory muscle use, rales, rhonchi, wheezes - *Routine Cardiovascular Exam Present: irregularly irregular. Absent: murmur, gallop, rubs - *Routine Abdominal Exam Present: soft. Absent: tenderness, distended, guarding - *Routine Extremities Exam Absent: edema, calf tenderness - *Routine Neurological Exam Present: alert, oriented X3, moving all extremities Assessment and Plan (1) Angina pectoris Current visit: Yes Status: Acute Category: Medical Code(s): I20.9 - Angina pectoris, unspecified (2) Troponin level elevated Current visit: Yes Status: Acute Category: Medical Code(s): R74.8 - Abnormal levels of other serum enzymes (3) Thoracic compression fracture Current visit: Yes Status: Acute Category: Medical Code(s): S22.000A - Wedge compression fracture of unspecified thoracic vertebra, initial encounter for closed fracture (4) Atrial fibrillation Current visit: Yes Status: Acute Category: Medical Code(s): I48.91 - Unspecified atrial fibrillation (5) CAD (coronary artery disease) Current visit: No Status: Chronic Qualifiers: Coronary Disease-Associated Artery/Lesion type: [place] artery [place] vs. transplanted heart: [place] heart Associated angina: with other forms of angina Qualified Code(s): I25.118 - Atherosclerotic heart disease of [place] coronary artery with other forms of angina pectoris Category: Medical Code(s): I25.10 - Atherosclerotic heart disease of [place] coronary artery without angina pectoris (6) COPD (chronic obstructive pulmonary disease) Current visit: No Status: Chronic Qualifiers: COPD type: unspecified COPD Qualified Code(s): J44.9 - Chronic obstructive pulmonary disease, unspecified Category: Medical Code(s): J44.9 - Chronic obstructive pulmonary disease, unspecified (7) HTN (hypertension) Current visit: No Status: Chronic Qualifiers: Hypertension type: essential hypertension Qualified Code(s): I10 - Essential (primary) hypertension Category: Medical Code(s): I10 - Essential (primary) hypertension (8) Hx of CABG Current visit: No Status: Chronic Category: Surgical Code(s): Z95.1 - Presence of aortocoronary bypass graft - Assessment and plan all Dx Assessment and Plan for all problems:: 1. With acute worsening shortness of breath in a patient with coronary artery disease and bypass surgery 16 years ago with subsequent coronary stenting since then with plans for atrial fibrillation ablation therapy next week and elevated troponins at this time, would recommend proceeding with left heart catheterization to evaluate for recurrent coronary artery disease. Patient is very concerned that something is wrong and would like to proceed with this. 2. Compression fracture discomfort per Dr. Baez 3. Further recommendations pending above results.
--- NOTE | 2019-05-09 09:21 | Pharmacy Consult Notes ---
[facility] Pharmacy VTE Monitoring - Patient Demographics Admission date: 05/08/19 Report Date: 05/09/19 Time: 09:20 Allergies/Adverse Reactions: Patient Allergies codeine Allergy (Mild, Verified 01/31/19 11:11) diazepam [From Valium] Allergy (Mild, Verified 01/31/19 11:11) diphenhydramine [From Benadryl] Allergy (Mild, Verified 01/31/19 11:11) Penicillins Allergy (Mild, Verified 01/31/19 11:11) Height: 1.63 m Weight: 85.984 kg Patient Problems: Current Active Problems (Updated 05/09/19 @ 09:12 by EMMY Roblero) Thoracic compression fracture (Acute) Troponin level elevated (Acute) Atrial fibrillation (Acute) Angina pectoris (Acute) - VTE Risk Labs: VTE Related Lab Results Hgb 12.3 g/dL (12.2-16.2) D 05/09/19 05:38 Hct 38.5 % (37.0-47.0) 05/09/19 05:38 Plt Count 259 K/mm3 (142-424) D 05/09/19 05:38 BUN 11 mg/dL (7-18) 05/09/19 05:38 Creatinine 0.87 mg/dL (0.55-1.02) 05/09/19 05:38 Estimated Creat Clear 74 mL/min (50-200) 05/09/19 05:38 - Prophylaxis VTE Prophylaxis Ordered?: Yes Types of VTE Prophylaxis: Pharmacological Pharmacologic Type: Other (ELIQUIS) - VTE Diagnosis Confirmed Treatment or plan recommended: Continue Current Treatment
[2019-05-10 04:47] LABS: Anion Gap 11.2 mEq/L (5-15); Calcium 7.9 mg/dL (8.5-10.1)
[2019-05-10 04:58] LABS: Basophils % 0.5 % (0.1-2.0); Eosinophils # 0.5 K/mm3 (0.0-0.4); Eosinophils % 9.1 % (0.1-12.0); Hemoglobin 12.1 g/dL (12.2-16.2); Lymphocytes # 1.7 K/mm3 (0.7-4.5); Lymphocytes % 31.6 % (10-50); Mean Corpuscular Volume 92.5 fl (81-99); Mean Platelet Volume 7.4 fl (7.4-10.4); Monocytes # 0.3 K/mm3 (0.1-1.0); Monocytes % 6.4 % (1.7-9.3); Neutrophils # 2.8 K/mm3 (1.8-7.8); Neutrophils % 52.4 % (37.0-80.0); Platelet Count 250 K/mm3 (142-424); Red Blood Count 4.11 M/mm3 (4.20-5.40); Red Cell Distribution Width 13.9 % (11.5-17.5); White Blood Count 5.3 K/mm3 (4.8-10.8)
--- NOTE | 2019-05-10 10:43 | Progress Note ---
Internal Medicine - PN: Subj *Date: 05/10/19 *Time: 10:39 Interval history: [facility] yesterday.... results as noted. Still with severe back pain at site of compression fracture. No edema... less SOA and no angina Exam Vital signs and Labs for Last 24 Hours: Temp Pulse Resp BP Pulse Ox 98.1 F 48 L 20 131/47 L 95 05/10/19 08:00 05/10/19 08:00 05/10/19 08:00 05/10/19 08:00 05/10/19 08:00 Laboratory Results - last 24 hr 05/09/19 17:12: Activated Clotting Time 317 H* 05/10/19 04:15: WBC 5.3, RBC 4.11 L, Hgb 12.1 L, Hct 38.0, MCV 92.5, MCH 29.6, MCHC 32.0, RDW 13.9, Plt Count 250, MPV 7.4, Neut % (Auto) 52.4, Lymph % (Auto) 31.6, [place] % (Auto) 6.4, Eos % (Auto) 9.1, Baso % (Auto) 0.5, Neut # (Auto) 2.8, Lymph # (Auto) 1.7, [place] # (Auto) 0.3, Eos # (Auto) 0.5 H, Baso # (Auto) 0.0 05/10/19 04:15: Sodium 145, Potassium 4.2, Chloride 111 H, Carbon Dioxide 27, Anion Gap 11.2, BUN 15 D, Creatinine 0.96, Estimated Creat Clear 74, Estimated GFR 58 L, Est GFR ( Amer) 70, Glucose 103, Calcium 7.9 L I & O for Last 24 hours: Intake & Output 05/07/19 05/08/19 05/09/19 05/10/19 11:59 11:59 11:59 11:59 Intake Total 1295 / 1295 2406 / 2406 Output Total 200 / 200 150 / 150 Balance 1095 / 1095 2256 / 2256 Weight 189 lb 9 oz 198 lb Narrative: A and O times three. LUngs clear. Irregular but rate controlled - soft murmur. Lots of thoracic pain -unchanged. Able to move legs/arms. No neuro deficits. No edema Assessment and Plan (1) Angina pectoris Current visit: Yes Status: Acute Category: Medical Code(s): I20.9 - Angina pectoris, unspecified (2) Troponin level elevated Current visit: Yes Status: Acute Category: Medical Code(s): R74.8 - Abnormal levels of other serum enzymes (3) Thoracic compression fracture Current visit: Yes Status: Acute Category: Medical Code(s): S22.000A - Wedge compression fracture of unspecified thoracic vertebra, initial encounter for closed fracture (4) Atrial fibrillation Current visit: Yes Status: Acute Category: Medical Code(s): I48.91 - Unspecified atrial fibrillation (5) CAD (coronary artery disease) Current visit: No Status: Chronic Qualifiers: Coronary Disease-Associated Artery/Lesion type: [place] artery [place] vs. transplanted heart: [place] heart Associated angina: with other forms of angina Qualified Code(s): I25.118 - Atherosclerotic heart disease of [place] coronary artery with other forms of angina pectoris Category: Medical Code(s): I25.10 - Atherosclerotic heart disease of [place] coronary artery without angina pectoris (6) COPD (chronic obstructive pulmonary disease) Current visit: No Status: Chronic Qualifiers: COPD type: unspecified COPD Qualified Code(s): J44.9 - Chronic obstructive pulmonary disease, unspecified Category: Medical Code(s): J44.9 - Chronic obstructive pulmonary disease, unspecified (7) HTN (hypertension) Current visit: No Status: Chronic Qualifiers: Hypertension type: essential hypertension Qualified Code(s): I10 - Essential (primary) hypertension Category: Medical Code(s): I10 - Essential (primary) hypertension (8) Hx of CABG Current visit: No Status: Chronic Category: Surgical Code(s): Z95.1 - Presence of aortocoronary bypass graft - Assessment and plan all Dx Assessment and Plan for all problems:: Appreciate cards and input. Continue pain rx. ? PT eval. Close f/u and ? DC in AM... if unable to ambulate would recommend inpatient pain eval on Sunday
--- NOTE | 2019-05-11 08:21 | Progress Note ---
Internal Medicine - PN: Subj *Date: 05/11/19 *Time: 08:19 Interval history: Patient has had no cardiac symptoms overnight. Has been able to get up and go to the bathroom with significant assistance because of significant pain and immobility. She has significant thoracic pain radiating into the left scapular area. P.o. hydrocodone is minimally effective, morphine is also minimally effective but works faster. Exam Vital signs and Labs for Last 24 Hours: Temp Pulse Resp BP Pulse Ox 98.0 F 49 L 17 158/92 H 95 05/11/19 07:59 05/11/19 07:59 05/11/19 07:59 05/11/19 07:59 05/11/19 07:59 I & O for Last 24 hours: Intake & Output 05/08/19 05/09/19 05/10/19 05/11/19 11:59 11:59 11:59 11:59 Intake Total 1295 / 1295 2406 / 2406 1952 Output Total 200 / 200 151 / 151 Balance 1095 / 1095 2255 / 2255 1952 Weight 189 lb 9 oz 198 lb 203 lb Narrative: Pleasant, alert, oriented x3. Respiratory status is excellent with good air movement. Heart rate regular. No murmurs. Abdomen soft and nontender. No ankle edema. Significant pain in the mid thoracic area. Assessment and Plan (1) Angina pectoris Current visit: Yes Status: Acute Category: Medical Code(s): I20.9 - Angina pectoris, unspecified (2) Troponin level elevated Current visit: Yes Status: Acute Category: Medical Code(s): R74.8 - Abnormal levels of other serum enzymes (3) Thoracic compression fracture Current visit: Yes Status: Acute Category: Medical Code(s): S22.000A - Wedge compression fracture of unspecified thoracic vertebra, initial encounter for closed fracture (4) Atrial fibrillation Current visit: Yes Status: Acute Category: Medical Code(s): I48.91 - Unspecified atrial fibrillation (5) CAD (coronary artery disease) Current visit: No Status: Chronic Qualifiers: Coronary Disease-Associated Artery/Lesion type: [place] artery [place] vs. transplanted heart: [place] heart Associated angina: with other forms of angina Qualified Code(s): I25.118 - Atherosclerotic heart disease of [place] coronary artery with other forms of angina pectoris Category: Medical Code(s): I25.10 - Atherosclerotic heart disease of [place] coronary artery without angina pectoris (6) COPD (chronic obstructive pulmonary disease) Current visit: No Status: Chronic Qualifiers: COPD type: unspecified COPD Qualified Code(s): J44.9 - Chronic obstructive pulmonary disease, unspecified Category: Medical Code(s): J44.9 - Chronic obstructive pulmonary disease, unspecified (7) HTN (hypertension) Current visit: No Status: Chronic Qualifiers: Hypertension type: essential hypertension Qualified Code(s): I10 - Essential (primary) hypertension Category: Medical Code(s): I10 - Essential (primary) hypertension (8) Hx of CABG Current visit: No Status: Chronic Category: Surgical Code(s): Z95.1 - Presence of aortocoronary bypass graft - Assessment and plan all Dx Assessment and Plan for all problems:: Overall patient is stable from a cardiac standpoint. Unfortunately, pain is not well controlled on oral agents. Pain and immobility issues are a significant safety risk to this patient. Transition to Percocet tablets to see if this helps her pain a little better for this acute fracture issue, pain consultation tomorrow.
--- NOTE | 2019-05-12 08:04 | Progress Note ---
Internal Medicine - PN: Subj *Date: 05/12/19 *Time: 08:03 Interval history: Patient continues to have lots of back pain, notes that Percocet might last a little bit longer than the [place]. No cardiac complaints Exam Vital signs and Labs for Last 24 Hours: Temp Pulse Resp BP Pulse Ox 98.3 F 53 L 20 131/89 94 L 05/12/19 04:00 05/12/19 04:00 05/12/19 04:00 05/12/19 04:00 05/12/19 04:00 I & O for Last 24 hours: Intake & Output 05/09/19 05/10/19 05/11/19 05/12/19 11:59 11:59 11:59 11:59 Intake Total 1295 / 1295 2406 / 2406 1952 480 / 480 Output Total 200 / 200 151 / 151 Balance 1095 / 1095 2255 / 2255 1952 480 / 480 Weight 189 lb 9 oz 198 lb 203 lb 199 lb 9 oz Narrative: Heart rate regular. Lungs clear. Abdomen soft, no edema. Continues to have some pain from her thoracic movements. Assessment and Plan (1) Angina pectoris Current visit: Yes Status: Acute Category: Medical Code(s): I20.9 - Angina pectoris, unspecified (2) Troponin level elevated Current visit: Yes Status: Acute Category: Medical Code(s): R74.8 - Abnormal levels of other serum enzymes (3) Thoracic compression fracture Current visit: Yes Status: Acute Category: Medical Code(s): S22.000A - Wedge compression fracture of unspecified thoracic vertebra, initial encounter for closed fracture (4) Atrial fibrillation Current visit: Yes Status: Acute Category: Medical Code(s): I48.91 - Unspecified atrial fibrillation (5) CAD (coronary artery disease) Current visit: No Status: Chronic Qualifiers: Coronary Disease-Associated Artery/Lesion type: [place] artery [place] vs. transplanted heart: [place] heart Associated angina: with other forms of angina Qualified Code(s): I25.118 - Atherosclerotic heart disease of [place] coronary artery with other forms of angina pectoris Category: Medical Code(s): I25.10 - Atherosclerotic heart disease of [place] coronary artery without angina pectoris (6) COPD (chronic obstructive pulmonary disease) Current visit: No Status: Chronic Qualifiers: COPD type: unspecified COPD Qualified Code(s): J44.9 - Chronic obstructive pulmonary disease, unspecified Category: Medical Code(s): J44.9 - Chronic obstructive pulmonary disease, unspecified (7) HTN (hypertension) Current visit: No Status: Chronic Qualifiers: Hypertension type: essential hypertension Qualified Code(s): I10 - Essential (primary) hypertension Category: Medical Code(s): I10 - Essential (primary) hypertension (8) Hx of CABG Current visit: No Status: Chronic Category: Surgical Code(s): Z95.1 - Presence of aortocoronary bypass graft - Assessment and plan all Dx Assessment and Plan for all problems:: Slight improvement. Pain management consult today. Once this is done she can go home with Percocet therapy or other agents as recommended by pain clinic. Cardiology follow-up scheduled for tomorrow with EP.
--- NOTE | 2019-05-12 10:40 | Progress Note ---
Subjective Date: 05/12/19 Time: 10:37 Principal diagnosis: SOA Interval history: 68 yo WF in bed. Still with back pain. Pain management consult pending. No chest pain. Exam Vital signs and Labs for Last 24 Hours: Temp Pulse Resp BP Pulse Ox 97.9 F 53 L 18 155/82 H 94 L 05/12/19 08:00 05/12/19 08:35 05/12/19 08:00 05/12/19 08:00 05/12/19 08:35 I & O for Last 24 hours: Intake & Output 05/09/19 05/10/19 05/11/19 05/12/19 11:59 11:59 11:59 11:59 Intake Total 1295 / 1295 2406 / 2406 1952 600 / 600 Output Total 200 / 200 151 / 151 Balance 1095 / 1095 2255 / 2255 1952 600 / 600 Weight 189 lb 9 oz 198 lb 203 lb 199 lb 9 oz - *Routine HEENT Exam Head: Present: normocephalic Eye: Present: EOMI, PERRL ENT: Present: mucous membranes moist - *Routine Respiratory Exam Present: CTA bilaterally. Absent: accessory muscle use, rales, rhonchi, wheezes - *Routine Cardiovascular Exam Present: RRR. Absent: murmur, gallop, rubs - *Routine Extremities Exam Absent: edema, calf tenderness - *Routine Neurological Exam Present: alert, oriented X3, moving all extremities Progress Note: A&P (1) Angina pectoris Status: Acute Current Visit: Yes (2) Troponin level elevated Status: Acute Current Visit: Yes (3) Thoracic compression fracture Status: Acute Current Visit: Yes (4) Atrial fibrillation Status: Acute Current Visit: Yes (5) CAD (coronary artery disease) Status: Chronic Current Visit: No (6) COPD (chronic obstructive pulmonary disease) Status: Chronic Current Visit: No (7) HTN (hypertension) Status: Chronic Current Visit: No (8) Hx of CABG Status: Chronic Current Visit: No Assessment and Plan for All Diagnoses:: 1. s/p AMY to LAD, on ASA and plavix. In 30 days, ASA can be discontinued. 2. A. fib, now sinus rhythm. On Eliquis. 3. Bradycardia, on metoprolol which was recently increased due to HTN. Will reduce to 50 mg daily. 4. HTN, partially exacerbated by pain. Monitor once pain is under better control. Recommend adding losartan 25 mg daily and titrating as needed. 5. Cardiac status stable. OK for discharge when ready by PCP.
--- NOTE | 2019-05-12 13:55 | Discharge Summary ---
General - General Admission date:: 05/08/19 Discharge date: 05/12/19 HPI HPI: 68-year-old white female with history of coronary disease, atrial fibrillation- scheduled for ablation early next week-who was found by a friend of hers with shortness of air, chest pain and back pain. Encouraged to come to the hospital. She was found to have acute compression fracture of T7, old compression fracture of T4-but she adamantly denies any kind of mechanism of injury. She was also found to have mildly elevated troponin levels. Admitted overnight for further evaluation. Hospital Course Hospital Course: Patient was admitted, found to have acute coronary syndrome, and taken to heart cath which revealed the following anatomy and stent was placed as noted below: ANGIOGRAPHIC RESULTS: 1. The left main artery normal 2. The left anterior descending artery has a stent in the proximal segment which is widely patent however right at the junction between the mid and proximal LAD is a focal 80-90% stenosis. The mid LAD has a stent which has 80% concentric in-stent restenosis. 3. The circumflex artery vessel and has 10-20% stenoses 4. The right coronary artery is a dominant vessel and has proximal 20-30% stenosis with mid vessel 20% stenoses and distal 20-30% stenoses 5. The NAYAK ventriculogram reveals ejection fraction of 45% with mid anterior apical hypokinesis 6. The left ventricular end-diastolic pressure 20 mmHg 7. The left internal mammary artery is atretic and physiologically occluded IMPRESSION: 1. Severe proximal to mid LAD disease as described above 2. Successful stenting of the proximal to mid LAD severe to critical disease reduced to 0% with 2 drug-eluting stents in a contiguous manner 3. Left ventricular dysfunction with regional wall motion abnormality accompanied by mildly elevated LVEDP 4. Physiologically and anatomically occluded OLIVO graft PLAN: 1. Aspirin and Plavix plus Xarelto 15 mg daily for one month. Following one month aspirin can be discontinued and Plavix 75 mg daily should be continued combined with Xarelto 15 mg daily for chronic atrial fibrillation 2. LDL less than 55 3. Cardiac rehabilitation 4. Risk factor modification Patient did well from a cardiac perspective but continued to have intractable back pain and was kept for intravenous pain medication and transitioning to p.o. narcotics. She was able to do fairly well with oxycodone over the past 24 hours and pain clinic was consulted, unfortunately they cannot offer intervention because of the blood thinner situation for the next 6 months but recommended follow-up in 3 weeks with thoracic bracing and narcotic therapy as noted. Patient will be discharged today with Percocet therapy, she has an appointment tomorrow with electrophysiology for atrial fibrillation reevaluation. She will see us in our office on . Objective Vital signs: Temp Pulse Resp BP Pulse Ox 97.9 F 60 16 145/89 H 97 05/12/19 11:24 05/12/19 11:24 05/12/19 11:24 05/12/19 11:24 05/12/19 11:24 Narrative: See notes from exam dated this morning DS: Diagnosis - Discharge Diagnosis (1) Angina pectoris Status: Resolved (2) Troponin level elevated Status: Resolved (3) Thoracic compression fracture Status: Acute (4) Atrial fibrillation Status: Chronic (5) CAD (coronary artery disease) Status: Chronic (6) COPD (chronic obstructive pulmonary disease) Status: Chronic (7) HTN (hypertension) Status: Chronic (8) Hx of CABG Status: Chronic (9) Acute coronary syndrome Status: Acute Discharge Plan - Patient Discharge Instructions ACTIVITY: Continue current activity DIET: continue same diet Patient Instructions: Cardiac Catheterization, DI for Cardiac Catheterization, DI for Shortness of Breath, DI for Surgical Site Infection, DI for Chest Pain - Follow up Plan Follow up with: Uriel Sharma MD [Staff Physician] - 06/09/19 10:45 am Kalpana Mcguire APRN [Primary Care Provider] - 05/15/19 Disposition: Home, Self-Intermediate Medications: Home Medications Medication Instructions Recorded Confirmed Type apixaban 5 mg tablet 5 mg PO BID 12/19/18 05/08/19 History atorvastatin 40 mg tablet 40 mg PO DAILY 12/19/18 05/08/19 History fluticasone fur. 100 mcg-umeclid 1 inh INHALATION DAILY 12/19/18 05/08/19 History 62.5 mcg-vilant 25 mcg inhalat.powder metoprolol succinate ER 50 mg 50 mg PO BID 12/19/18 05/09/19 History tablet,extended release 24 hr ropinirole 1 mg tablet 2 mg PO HS tab 12/19/18 05/08/19 History sennosides 8.6 mg tablet 8.6 mg PO DAILY 12/19/18 05/08/19 History temazepam 15 mg capsule 15 mg PO HSP PRN cap 12/19/18 05/09/19 History Guaifenesin/Dextromethorphan 1 tab PO BID 05/08/19 05/08/19 History [Mucinex Dm ER 1,200-60 mg Tab] Clopidogrel Bisulfate [Plavix 75mg 75 mg PO DAILY #30 tab 05/12/19 Rx Tab] Oxycodone HCl/Acetaminophen 1 tab PO Q4H PRN #30 tab 05/12/19 Rx [Percocet 5/325mg tablet] Prescriptions/Medication Reconciliation: New Aspirin [Aspirin 81mg chewable tab] 81 mg PO DAILY tab.chew Oxycodone HCl/Acetaminophen [Percocet 5/325mg tablet] 1 tab PO Q4H PRN #30 tab PRN Reason: Moderate To Severe Pain Clopidogrel Bisulfate [Plavix 75mg Tab] 75 mg PO DAILY #30 tab Continued temazepam 15 mg capsule 15 mg PO HSP PRN cap PRN Reason: Sleep ropinirole 1 mg tablet 2 mg PO HS tab apixaban 5 mg tablet 5 mg PO BID atorvastatin 40 mg tablet 40 mg PO DAILY metoprolol succinate ER 50 mg tablet,extended release 24 hr 50 mg PO BID sennosides 8.6 mg tablet 8.6 mg PO DAILY fluticasone fur. 100 mcg-umeclid 62.5 mcg-vilant 25 mcg inhalat.powder 1 inh INHALATION DAILY Guaifenesin/Dextromethorphan [Mucinex Dm ER 1,200-60 mg Tab] 1 tab PO BID
--- NOTE | 2019-06-16 09:08 | Consult Report ---
[facility] Pain Management SOAP Note Subjective:: Date of service 05/12/2019 Patient is a pleasant 68-year-old white female who is inpatient for a fracture of the T7 spinal level. Patient and I discussed a kyphoplasty she is having quite a bit of pain rating her pain a 9 out of 10 she states that opioids or not being very beneficial in relieving this. Patient I talked about options including kyphoplasty, epidurals, bracing. Patient is interested in this however patient is on multiple anticoagulation therapy. After contacting the cardiology office it was determined she cannot come off of this at this time. Patient and I discussed bracing and potential kyphoplasty in the future. We will see her back in the office. At this time I believe a short course of narcotics will be beneficial for her. She is been instructed to call the office if she has any issues. We will have a lumbar brace ordered for her. Dr. Sharma has reviewed this note and agrees with this plan of care. This note was dictated using voice recognition software and may contain errors or omissions
== END 2019-05-12 15:22 | disposition home or self-care (01) ==
LOC: ER 16:28 → 2ND 21:03 → INTOOBSV 21:13 → 2ND 21:14
PROVIDERS: ADMIT Family Medicine; ATTEND Internal Medicine Adolescent Medicine
CPT/HCPCS: 36415; 71010; 71045; 71260; 80048; 80053; 83880; 84484; 85007; 85025; 85347; 85378; 92928; 93005; 93459; 96374; 96375; 99152; 99153; 99285; C1725; C1760; C1769; C1874; C1876; C1894; C9600; G0378; J1644; J2405; Q9967

== ENCOUNTER → 2019-05-16 10:03 | Outpatient (POV) | payer MEDICARE, OTHER, SELFPAY ==
[2019-05-16 10:46] LABS: Hematocrit 43.2 % (37.0-47.0); Hemoglobin 13.6 g/dL (12.2-16.2)
[2019-05-16 11:43] LABS: Blood Urea Nitrogen 16 mg/dL (7-18); Estimated Glomerular Filt Rate 50 ml/min (>60); GFR (African American) 60 ML/MIN (>60)
== END ==
PROVIDERS: Internal Medicine; PCP Nurse Practitioner Family; Visit Provider Anesthesiology
DX: I48.1 Persistent atrial fibrillation (principal)
CPT/HCPCS: 36415; 82565; 84520; 85014; 85018; 93005

== ENCOUNTER → 2019-05-26 09:33 | Outpatient (CLI) | payer MEDICARE, SELFPAY ==
--- NOTE | 2019-05-26 09:34 | CA_ITS ---
PROCEDURE: 2-D M-mode and color Doppler study INDICATIONS FOR THE TEST: Chest pain COPD + Heart Murmur Tobacco Smoking Palpitations Fatigue Syncope Edema Hypertension+Diabetes Mellitus Rheumatic Fever SOB+FERNANDEZ Obesity Hyperlipidemia+ Family History HD Additional History BRADYCARDIA HR DROPPED TO THE 40'S PATIENT INFORMATION HEIGHT: 64 WEIGHT:195 GENDER: Female B/P:122/74 2-D/M-MODE INTERPRETATION: 2-D MEASUREMENTS OBSERVED VALUES IN CMS Right Ventricular Dimension (RVDd) 2.7 Interventricular Septum (Thickness)(IVsd) 1.1 Left Ventricular Internal Dimensions(LVIDd) 5.5 Left Ventricular Posterior Wall (Thickness)(LVPWd) 0.8 Aortic Root 3.0 Aortic Cusp Separation 1.9 Left Atrial Dimensions (LAD) 4.3 2D 1. Left Atrium is mildly enlarged, left ventricle is normal size, mild concentric left ventricular hypertrophy, visually estimated ejection fraction 50% with no regional wall motion abnormality. 2. The right atrium and right ventricle are mildly enlarged with normal contractility. 3. The aortic valve is thickened and calcified leaflet continue to display mobility. 4. The mitral and tricuspid valve leaflets are minimally thickened 5. The pulmonic valve is poorly visualized. 6. No significant pericardial effusion noted. DOPPLER INTERROGATION: Doppler interrogation of the aortic, mitral and tricuspid valvular presence of mild aortic, moderate mitral and mild tricuspid regurgitation, calculated right ventricular systolic pressure 39 mmHg consistent with mild pulmonary hypertension, grade 1 diastolic dysfunction seen with tissue Doppler evidence of raised left atrial pressure. CONCLUSION: 1. Biatrial enlargement, normal left ventricular size, visually estimated ejection fraction 50% with no regional wall motion abnormality, mild concentric left ventricular hypertrophy seen. Grade 1 diastolic dysfunction seen with tissue Doppler evidence of raised left atrial pressure. 2. Mildly enlarged right ventricle with normal contractility. 3. Thickened and calcified aortic valve without aortic stenosis, there is mild aortic insufficiency. 4. Moderate mitral and mild tricuspid regurgitation, calculated right ventricular systolic pressure 39 mmHg consistent with mild pulmonary hypertension. 5. No significant pericardial effusion noted.
== END ==
PROVIDERS: PCP Nurse Practitioner Family; Visit Provider Internal Medicine Cardiovascular Disease
DX: E78.2 Mixed hyperlipidemia (principal); I10 Essential (primary) hypertension; I24.9 Acute ischemic heart disease, unspecified; I25.118 Atherosclerotic heart disease of native coronary artery with other forms of angina pectoris; I25.2 Old myocardial infarction; I48.0 Paroxysmal atrial fibrillation; J44.9 Chronic obstructive pulmonary disease, unspecified; R06.02 Shortness of breath; S22.020S Wedge compression fracture of second thoracic vertebra, sequela; Z87.891 Personal history of nicotine dependence; Z95.1 Presence of aortocoronary bypass graft
CPT/HCPCS: 93306

== ENCOUNTER → 2019-06-09 10:36 | Outpatient (POV) | payer MEDICARE, SELFPAY ==
[2019-06-09 10:51] VITALS: BP 153/75; PULSE 53; RESP 18; O2SAT 98; BMI 30.9
--- NOTE | 2019-06-09 11:11 | HMH.PAINSOAP ---
[facility] Pain Management SOAP Note Subjective:: Patient is a pleasant 68-year-old who presents today for follow-up. Patient was recently in the hospital for [place], and coincidentally at that time was found to have a compression fracture. Patient was referred to us for pain management. At that time we planned for an L4-L5 epidural steroid injection, however the patient was unable to come off of her Plavix at that time. As a result, we were unable to perform the procedure. The patient is currently taking Percocet 5 mg 1 p.o. 3 times daily. It is ordered for 4 times daily, but the patient says she is able to take 3 a day and manage her pain. She rates her pain a 6 out of 10 today. Patient says that her pain is tolerable if she is at rest. She is limited her activity due to the pain. She is still interested in injective therapy. She is scheduled to see her jewel sorter on Sunday to discuss holding her Plavix for an epidural. Review of Systems General: No recent weight changes, no fever, no sleep disturbances Respiratory: No cough, no shortness of air, no recurring pulmonary infections Cardiovascular/peripheral vascular: No chest pain, no palpitations, no edema, no shortness of breath Gastrointestinal: No new onset incontinence, normal bowel movements reported Genitourinary: No new onset incontinence Musculoskeletal: Back pain Psychiatric: Normal mood/affect Neurological: [Denies weakness in extremities], [denies balance issues] Objective:: Physical exam General: Alert and oriented x3, no acute distress, pleasant and cooperative, [on room air] Lungs: Respirations even and unlabored, symmetrical chest expansion Eyes: PERRL Musculoskeletal: Flexion and extension of lumbar spine somewhat guarded secondary to pain, deep tendon reflexes normal, strength in upper and lower extremities [5/5], [abnormal gait noted] Neurological: Speech clear, remarketing manager equal, no gross sensory deficit Assessment:: Back pain Plan:: The patient will see her jewel sorter this upcoming week to determine if she is able to come off her Plavix. We will see her back in 2 weeks to discuss possible epidural steroid injection at L4 and L5. She will continue anti-inflammatories and a home stretching program until we see her back. She is been instructed to call the office if she has any concerns prior to her next appointment. Dr. Sharma has reviewed this note and agrees with this plan of care. This note was dictated using voice recognition software and make contain errors or omissions.
--- NOTE | 2019-06-09 11:14 | P.CONS_ITS ---
[facility] Pain Management SOAP Note Subjective:: Patient is a pleasant 68-year-old who presents today for follow-up. Patient was recently in the hospital for [place], and coincidentally at that time was found to have a compression fracture. Patient was referred to us for pain management. At that time we planned for an L4-L5 epidural steroid injection, however the patient was unable to come off of her Plavix at that time. As a result, we were unable to perform the procedure. The patient is currently taking Percocet 5 mg 1 p.o. 3 times daily. It is ordered for 4 times daily, but the patient says she is able to take 3 a day and manage her pain. She rates her pain a 6 out of 10 today. Patient says that her pain is tolerable if she is at rest. She is limited her activity due to the pain. She is still interested in injective therapy. She is scheduled to see her coin teller on Sunday to discuss holding her Plavix for an epidural. Review of Systems General: No recent weight changes, no fever, no sleep disturbances Respiratory: No cough, no shortness of air, no recurring pulmonary infections Cardiovascular/peripheral vascular: No chest pain, no palpitations, no edema, no shortness of breath Gastrointestinal: No new onset incontinence, normal bowel movements reported Genitourinary: No new onset incontinence Musculoskeletal: Back pain Psychiatric: Normal mood/affect Neurological: [Denies weakness in extremities], [denies balance issues] Objective:: Physical exam General: Alert and oriented x3, no acute distress, pleasant and cooperative, [on room air] Lungs: Respirations even and unlabored, symmetrical chest expansion Eyes: PERRL Musculoskeletal: Flexion and extension of lumbar spine somewhat guarded secondary to pain, deep tendon reflexes normal, strength in upper and lower extremities [5/5], [abnormal gait noted] Neurological: Speech clear, extract operator equal, no gross sensory deficit Assessment:: Back pain Plan:: The patient will see her coin teller this upcoming week to determine if she is able to come off her Plavix. We will see her back in 2 weeks to discuss possible epidural steroid injection at L4 and L5. She will continue anti- inflammatories and a home stretching program until we see her back. She is been instructed to call the office if she has any concerns prior to her next appointment. Dr. Sharma has reviewed this note and agrees with this plan of care. This note was dictated using voice recognition software and make contain errors or omissions.
== END ==
PROVIDERS: PCP Nurse Practitioner Family; Visit Provider Clinical Nurse Specialist Family Health
DX: M54.9 Dorsalgia, unspecified (principal)
CPT/HCPCS: 99212

== ENCOUNTER → 2019-06-23 08:53 | Outpatient (POV) | payer MEDICARE, OTHER, SELFPAY ==
[2019-06-23 09:00] VITALS: BP 137/78; PULSE 58; RESP 18; O2SAT 92
--- NOTE | 2019-06-23 09:12 | HMH.PAINSOAP ---
[facility] Pain Management SOAP Note Subjective:: Patient is a pleasant 68-year-old white female who presents today for follow-up. Patient had a T7 spinal compression fracture. She is having quite a lot of pain in her thoracic spine radiating into her intercostal space. She rates her pain a 6 out of 10. She is on narcotic medication however she feels like she would rather not take it. Patient I discussed a short term of anti-inflammatories along with low-dose gabapentin at nighttime. She is currently on Plavix and is unable to come off of it for another 4-1/2 months. ROS General: no recent weight change, no fever, no sleep disturbances Respiratory: no cough, no shortness of air, no recurring pulmonary infections Cardiovascular/Peripheral Vascular: No chest pain, No palpitations, no edema, no shortness of breath. Gastrointestinal: no incontinence, normal bowel movements reported Genitourinary: no incontinence Musculoskeletal: Back pain Psychiatric: normal mood/ affect Neurological: [denies weakness in extremities], [denies balance issues] Objective:: Physical Exam General: Alert and oriented x3, no acute distress, pleasant and cooperative, [on room air] Lungs: Resps E/U, Symmetrical chest expansion, Eyes: PERRL Musculoskeletal: Flexion and extension of thoracic spine somewhat guarded secondary to pain, deep tendon reflexes normal, strength in upper and lower extremities [5/5], slightly antalgic gait noted Neurological: speech clear, analytical lab analyst equal, no gross sensory deficits Assessment:: T7 compression fracture Plan:: We will send the patient for physical therapy evaluation. We will also start her on some anti-inflammatories for short round diclofenac 75 mg 1 p.o. twice daily we will also start her on gabapentin 100 mg at nighttime to see if this is beneficial she is been instructed to call the office if she has any issues prior to her next appointment we will see her in 1 month reassess her symptoms at that time. Dr. Sharma has reviewed this note and agrees with this plan of care. This note was dictated using voice recognition software and may contain errors or omissions
--- NOTE | 2019-06-23 09:16 | P.CONS_ITS ---
[facility] Pain Management SOAP Note Subjective:: Patient is a pleasant 68-year-old white female who presents today for follow-up. Patient had a T7 spinal compression fracture. She is having quite a lot of pain in her thoracic spine radiating into her intercostal space. She rates her pain a 6 out of 10. She is on narcotic medication however she feels like she would rather not take it. Patient I discussed a short term of anti- inflammatories along with low-dose gabapentin at nighttime. She is currently on Plavix and is unable to come off of it for another 4-1/2 months. ROS General: no recent weight change, no fever, no sleep disturbances Respiratory: no cough, no shortness of air, no recurring pulmonary infections Cardiovascular/Peripheral Vascular: No chest pain, No palpitations, no edema, no shortness of breath. Gastrointestinal: no incontinence, normal bowel movements reported Genitourinary: no incontinence Musculoskeletal: Back pain Psychiatric: normal mood/ affect Neurological: [denies weakness in extremities], [denies balance issues] Objective:: Physical Exam General: Alert and oriented x3, no acute distress, pleasant and cooperative, [on room air] Lungs: Resps E/U, Symmetrical chest expansion, Eyes: PERRL Musculoskeletal: Flexion and extension of thoracic spine somewhat guarded secondary to pain, deep tendon reflexes normal, strength in upper and lower extremities [5/5], slightly antalgic gait noted Neurological: speech clear, occasional babysitter equal, no gross sensory deficits Assessment:: T7 compression fracture Plan:: We will send the patient for physical therapy evaluation. We will also start her on some anti-inflammatories for short round diclofenac 75 mg 1 p.o. twice daily we will also start her on gabapentin 100 mg at nighttime to see if this is beneficial she is been instructed to call the office if she has any issues prior to her next appointment we will see her in 1 month reassess her symptoms at that time. Dr. Sharma has reviewed this note and agrees with this plan of care. This note was dictated using voice recognition software and may contain errors or omissions
== END ==
PROVIDERS: PCP Nurse Practitioner Family; Visit Provider Clinical Nurse Specialist Family Health
DX: M48.54XD Collapsed vertebra, not elsewhere classified, thoracic region, subsequent encounter for fracture with routine healing
CPT/HCPCS: 99212

== ENCOUNTER → 2019-07-09 10:26 | Outpatient (CLI) | payer MEDICARE, SELFPAY ==
[2019-07-09 15:54] LABS: Alanine Aminotransferase 30 U/L (12-78); Albumin Level 3.5 gm/dL (3.4-5.0); Alkaline Phosphatase 95 U/L (46-116); Aspartate Amino Transferase 23 U/L (15-37); Bilirubin,Direct 0.1 mg/dL (0.0-0.2); Bilirubin,Indirect 0.5 mg/dL (0.0-0.9); Bilirubin,Total 0.6 mg/dL (0.2-1.0); Cholesterol 183 mg/dL (140-200); HDL Cholesterol 46 mg/dL (29-89); LDL Cholesterol 98 mg/dL (0-130); Total Protein,Serum 6.7 gm/dL (6.4-8.2); Triglycerides 197 mg/dL (30-200); VLDL Cholesterol 39 mg/dL (0-40)
[2019-07-09 17:45] LABS: Anion Gap 11.4 mEq/L (5-15); Blood Urea Nitrogen 23 mg/dL (7-18); Calcium 9.3 mg/dL (8.5-10.1); Carbon Dioxide 30 mmol/L (21.0-32.0); Chloride 105 mmol/L (98-107); Creatinine,Serum 1.05 mg/dL (0.55-1.02); Estimated Glomerular Filt Rate 52 ml/min (>60); GFR (African American) 63 ML/MIN (>60); Glucose 86 mg/dL (74-106); Potassium 4.4 mmoL/L (3.5-5.1); Sodium 142 mmol/L (136-145)
== END ==
PROVIDERS: Internal Medicine; Visit Provider Internal Medicine Cardiovascular Disease
DX: R06.02 Shortness of breath; I25.118 Atherosclerotic heart disease of native coronary artery with other forms of angina pectoris; I48.0 Paroxysmal atrial fibrillation; E78.2 Mixed hyperlipidemia; I25.2 Old myocardial infarction; Z87.891 Personal history of nicotine dependence; Z95.1 Presence of aortocoronary bypass graft
CPT/HCPCS: 36415; 80048; 80061; 80076

== ENCOUNTER 2019-07-10 14:00 | Outpatient (RCR) | payer MEDICARE, SELFPAY ==
--- NOTE | 2019-06-25 11:48 | HMH.PTOPEV ---
PT Outpatient Evaluation Rehab PT Outpatient Evaluation Start: 06/25/19 11:27 Freq: Status: Active Protocol: Document 06/25/19 11:30 JARED (Rec: 06/25/19 11:48 JARED [id number]) Electronically Signed By Ac Bennett, PT 06/25/19 11:30 Outpatient Therapy Subjective History Subjective History Pt reports acute onset LBP following a lifting injury in mid April 2019. Pt reports midline LBP and mid back pain, with intermittent referred/ radicular pain into B lower ribs, and L LE/hip/glut area. Recent Xrays have revealed acute compression @T7, old compression fx @T4. Pt reports increased anxiety during this episode of pain, and subsequently sustained an CA, and underwent stent placement in April as well. PMH: LBP, COPD Chief Complaint Pain,Stiff Symptom Type Ache,Throb,Sharp,Dull,Stabbing ,Burning Symptoms Relieved By Rest/Positioning,Heat Symptoms Aggravated By Sitting,Standing,Bending/ Stooping,Physical Activity, Twisting,Walking Prior Functional Limitations None Current Functional Limitations Reaching,Lifting,Housework, Standing,Sitting,Walking Symptom Description Constant but Variable Level of pain today (0-10) 5 Pain scale - at its best (0-10) 5 Pain scale - at its worst (0-10) 10 Lumbopelvic Eval Posture Thoracic Spine Posture Standing Position Neutral Lumbar Spine Posture Standing Position Neutral Gait Observation General Gait Pattern Observation Antalgic Gait Palapation tenderness left thoracic spinal tenderness Yes: 3/4 lumbar spinal tenderness Yes: 3/4 paraspinal tenderness Yes: 3/4 buttock tenderness Yes: 3/4 Lumbar/Sacral Palpation Findings Tenderness,Muscle Guarding right thoracic spinal tenderness Yes: 2/4 lumbar spinal tenderness Yes: 3/4 paraspinal tenderness Yes: 3/4 buttock tenderness Yes: 1/4 Lumbar/Sacral Palpation Findings Tenderness,Muscle Guarding Accessory Movement T-spine Vertebrae Accessory Movements Central P/A [place] that Elicit Symptoms T10 bilateral T11 bilateral T12 bilateral L-spine Vertebrae Accessory Movements Central P/A [place] that Elicit Symptoms
== END 2019-07-10 14:05 | disposition home or self-care (01) ==
LOC: PT 14:00
PROVIDERS: PCP Nurse Practitioner Family; Visit Provider Clinical Nurse Specialist Family Health
DX: M54.5 Low back pain (principal)
CPT/HCPCS: 97010; 97014; 97035; 97163; G0283

== ENCOUNTER → 2019-07-21 11:08 | Outpatient (POV) | payer MEDICARE, OTHER, SELFPAY ==
[2019-07-21 11:33] VITALS: BP 126/81; PULSE 55; RESP 18; O2SAT 99
--- NOTE | 2019-07-21 11:33 | P.CONS_ITS ---
[facility] Pain Management SOAP Note Subjective:: Patient is a pleasant 68-year-old white female who presents today for follow-up. She rates her pain a 0 out of 10 she is doing extremely well she is status post a T7 spinal compression fracture. She is been doing diclofenac 75 mg 1 p.o. twice daily along with gabapentin 100 mg at nighttime along with physical therapy. Overall she is doing extremely well. Very happy with her progress. ROS General: no recent weight change, no fever, no sleep disturbances Respiratory: no cough, no shortness of air, no recurring pulmonary infections Cardiovascular/Peripheral Vascular: No chest pain, No palpitations, no edema, no shortness of breath. Gastrointestinal: no incontinence, normal bowel movements reported Genitourinary: no incontinence Musculoskeletal: Back pain intermittently Psychiatric: normal mood/ affect Neurological: [denies weakness in extremities], [denies balance issues] Objective:: Physical Exam General: Alert and oriented x3, no acute distress, pleasant and cooperative, [on room air] Lungs: Resps E/U, Symmetrical chest expansion, Eyes: PERRL Musculoskeletal: Flexion and extension of thoracic spine somewhat guarded secondary to pain, deep tendon reflexes normal, strength in upper and lower extremities [5/5], slightly antalgic gait noted Neurological: speech clear, security and compliance analyst equal, no gross sensory deficits Assessment:: T7 compression fracture Plan:: We will continue the physical therapy along with diclofenac 75 mg 1 p.o. twice daily and gabapentin 100 mg at nighttime given the efficacy of this we will make sure that she has refills on this. We will also see her back in 8 weeks reassess her symptoms at that time she is been instructed to call the office if she has any issues prior to her next appointment. Dr. Sharma has reviewed this note and agrees with this plan of care. This note was dictated using voice recognition software and may contain errors or omissions Pain Management Hx Components *Have you ever received a pneumonia vaccine?: No *Have you received a flu vaccine this season?: No - *Social History *Occupational Status:: retired *Travel in the last 8 weeks: None
--- NOTE | 2019-08-25 12:15 | PC.NURSE ---
DICLOFENAC 75MG BID AND GABAPENTIN 100MG QHS WITH 2 REFILLS CALLED INTO [facility] PER PROVIDER ORDER
== END ==
PROVIDERS: PCP Nurse Practitioner Family; Visit Provider Clinical Nurse Specialist Family Health
DX: M48.54XD Collapsed vertebra, not elsewhere classified, thoracic region, subsequent encounter for fracture with routine healing (principal)
CPT/HCPCS: 99212

== ENCOUNTER → 2019-08-19 09:57 | Outpatient (POV) | payer MEDICARE, SELFPAY | PROVIDERS: Visit Provider Dermatology | DX: Z00.00 Encounter for general adult medical examination without abnormal findings (principal) ==

== ENCOUNTER → 2019-09-16 09:03 | Outpatient (POV) | payer MEDICARE, SELFPAY ==
[2019-09-16 09:21] VITALS: BP 150/90; PULSE 54; RESP 18; O2SAT 99; BMI 30.9
--- NOTE | 2019-09-16 09:23 | HMH.PAINSOAP ---
[facility] Pain Management SOAP Note Subjective:: Patient is a pleasant 68-year-old white female who presents today for follow-up. She is being treated for T7 compression fracture. Patient wanted to have epidural steroid injections for pain relief, however, the patient says that during the time of her planned injection, the patient had a myocardial infarction. As a result, she is now on anticoagulation therapy and unable to come off her medication at this time for an injection. Patient is scheduled to see her caregivers homecare today to discuss plans to hold her anticoagulation for possible injection. Patient currently takes diclofenac 75 mg 1 tablet p.o. twice daily and gabapentin 100 mg at bedtime. Patient says she gets most relief at night. She does rate her pain a 6 out of 10 today. She denies any side effects to her medications. She would like to increase her gabapentin today to see if she can get more relief. Review of Systems General: No recent weight changes, no fever, no sleep disturbances Respiratory: No cough, no shortness of air, no recurring pulmonary infections Cardiovascular/peripheral vascular: No chest pain, no palpitations, no edema, no shortness of breath Gastrointestinal: No new onset incontinence, normal bowel movements reported Genitourinary: No new onset incontinence Musculoskeletal: Back pain Psychiatric: Normal mood/affect Neurological: [Denies weakness in extremities], [denies balance issues] Objective:: Physical exam General: Alert and oriented x3, no acute distress, pleasant and cooperative, [on room air] Lungs: Respirations even and unlabored, symmetrical chest expansion Eyes: PERRL Musculoskeletal: Flexion and extension of thoracic and lumbar spine somewhat guarded secondary to pain, deep tendon reflexes normal, strength in upper and lower extremities [5/5], normal gait noted Neurological: Speech clear, shirt sorter equal, no gross sensory deficit Assessment:: T7 compression fracture Plan:: We will increase the patient's gabapentin 200 mg 1 tablet p.o. twice daily. She will continue with diclofenac 75 mg 1 tablet p.o. twice daily. Patient will also continue with a home stretching program. We will see the patient back in 2 weeks to reassess her symptoms. She has been instructed to contact the clinic if she has any concerns before her next appointment. Dr. Sharma has reviewed this note and agrees with this plan of care. This note was dictated using voice recognition software and make contain errors or omissions. [facility] History Medical History: Reports:: Arrhythmia, Atrial Fibrillation, Cancer, Congestive Heart Failure, Chronic Obstructive Pulmonary Disease (COPD), Coronary Artery Disease, Hyperlipidemia, Hypertension, Myocardial Infarction Denies:: Diabetes Mellitus Type 1, Diabetes Mellitus Type 2, Internal Pacemaker, MRSA, Seizures *Have you ever received a pneumonia vaccine?: Yes *Have you received a flu vaccine this season?: Yes Other Medical History: Reports: Chemotherapy. Denies: Blood Transfusion Reaction Other Surgeries: Yes: CABG, Cardiac Catheterization, Colonoscopy, Colon Resection, Coronary Stent, Hysterectomy-Total, Hysterectomy-Partial, Other (cardioversionX2). No: Pacemaker Amputation: No Fractures: No - *Social History Smoking Status: Former smoker Tobacco Type: cigarettes #Yrs smoked (if former smoker): 45 Alcohol Intake: never Substance Use Type: denies use *Occupational Status:: other Housing: house Household Members: spouse *Travel in the last 8 weeks: None Family Hx:: Cancer, Coronary Artery Disease, Diabetes, Heart Attack, Hyperlipidemia, Hypertension
--- NOTE | 2019-09-16 09:26 | P.CONS_ITS ---
[facility] Pain Management SOAP Note Subjective:: Patient is a pleasant 68-year-old white female who presents today for follow-up. She is being treated for T7 compression fracture. Patient wanted to have epidural steroid injections for pain relief, however, the patient says that during the time of her planned injection, the patient had a myocardial infarction. As a result, she is now on anticoagulation therapy and unable to come off her medication at this time for an injection. Patient is scheduled to see her caser today to discuss plans to hold her anticoagulation for possible injection. Patient currently takes diclofenac 75 mg 1 tablet p.o. twice daily and gabapentin 100 mg at bedtime. Patient says she gets most relief at night. She does rate her pain a 6 out of 10 today. She denies any side effects to her medications. She would like to increase her gabapentin today to see if she can get more relief. Review of Systems General: No recent weight changes, no fever, no sleep disturbances Respiratory: No cough, no shortness of air, no recurring pulmonary infections Cardiovascular/peripheral vascular: No chest pain, no palpitations, no edema, no shortness of breath Gastrointestinal: No new onset incontinence, normal bowel movements reported Genitourinary: No new onset incontinence Musculoskeletal: Back pain Psychiatric: Normal mood/affect Neurological: [Denies weakness in extremities], [denies balance issues] Objective:: Physical exam General: Alert and oriented x3, no acute distress, pleasant and cooperative, [on room air] Lungs: Respirations even and unlabored, symmetrical chest expansion Eyes: PERRL Musculoskeletal: Flexion and extension of thoracic and lumbar spine somewhat guarded secondary to pain, deep tendon reflexes normal, strength in upper and lower extremities [5/5], normal gait noted Neurological: Speech clear, 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 twice daily. She will continue with diclofenac 75 mg 1 tablet p.o. twice daily. Patient will also continue with a home stretching program. We will see the patient back in 2 weeks to reassess her symptoms. She has been instructed to contact the clinic if she has any concerns before her next appointment. Dr. Sharma has reviewed this note and agrees with this plan of care. This note was dictated using voice recognition software and make contain errors or omissions. [facility] History Medical History: Reports:: Arrhythmia, Atrial Fibrillation, Cancer, Congestive Heart Failure, Chronic Obstructive Pulmonary Disease (COPD), Coronary Artery Disease, Hyperlipidemia, Hypertension, Myocardial Infarction Denies:: Diabetes Mellitus Type 1, Diabetes Mellitus Type 2, Internal Pacemaker, MRSA, Seizures *Have you ever received a pneumonia vaccine?: Yes *Have you received a flu vaccine this season?: Yes Other Medical History: Reports: Chemotherapy. Denies: Blood Transfusion Reaction Other Surgeries: Yes: CABG, Cardiac Catheterization, Colonoscopy, Colon Resection, Coronary Stent, Hysterectomy-Total, Hysterectomy-Partial, Other (cardioversionX2). No: Pacemaker Amputation: No Fractures: No - *Social History Smoking Status: Former smoker Tobacco Type: cigarettes #Yrs smoked (if former smoker): 45 Alcohol Intake: never Substance Use Type: denies use *Occupational Status:: other Housing: house Household Members: spouse *Travel in the last 8 weeks: None Family Hx:: Cancer, Coronary Artery Disease, Diabetes, Heart Attack, Hyperlipidemi
== END ==
PROVIDERS: PCP Nurse Practitioner Family; Visit Provider Clinical Nurse Specialist Family Health
DX: M48.56XA Collapsed vertebra, not elsewhere classified, lumbar region, initial encounter for fracture
CPT/HCPCS: 99212

== ENCOUNTER → 2019-09-30 11:22 | Outpatient (POV) | payer MEDICARE, SELFPAY ==
[2019-09-30 11:35] VITALS: BP 168/87; PULSE 70; RESP 18; O2SAT 98; BMI 30.9
--- NOTE | 2019-09-30 13:08 | HMH.PAINSOAP ---
[facility] Pain Management SOAP Note Subjective:: Patient is a pleasant 68-year-old white female who presents today for follow-up. Patient was increased in regards to her at gabapentin and was doing well with this. Patient still rates her pain a 6 out of 10 her pain is worse at nighttime. She is currently waiting for an ablation for her A. fib. She is on chronic anticoagulation therapy that she cannot come off of it at this time. Also her pain is in her back and legs. ROS General: no recent weight change, no fever, no sleep disturbances Respiratory: no cough, no shortness of air, no recurring pulmonary infections Cardiovascular/Peripheral Vascular: No chest pain, No palpitations, no edema, no shortness of breath. Gastrointestinal: no new onset incontinence, normal bowel movements reported Genitourinary: no new onset incontinence Musculoskeletal: Back pain, leg pain Psychiatric: normal mood/ affect Neurological: [denies new onset weakness in extremities], [denies new onset balance issues] Objective:: Physical Exam General: Alert and oriented x3, no acute distress, pleasant and cooperative, [on room air] Lungs: Resps E/U, Symmetrical chest expansion, Eyes: PERRL Musculoskeletal: Flexion and extension of lumbar spine somewhat guarded secondary to pain, deep tendon reflexes normal, strength in upper and lower extremities [5/5], antalgic gait noted Neurological: speech clear, transportation design engineer equal, no gross sensory deficits Assessment:: T7 compression fracture Plan:: We will increase the patient's gabapentin 100 mg 1 p.o. 4 times daily patient can take 2 pills at nighttime. I will follow-up with her after her ablation reassess her symptoms at that time she is been instructed to call the office if she has any issues prior to her next appointment. Dr. Sharma has reviewed this note and agrees with this plan of care. This note was dictated using voice recognition software and may contain errors or omissions [facility] History I have reviewed the patient's past medical history: Yes Medical History: Reports:: Arrhythmia, Atrial Fibrillation, Cancer, Congestive Heart Failure, Chronic Obstructive Pulmonary Disease (COPD), Coronary Artery Disease, Hyperlipidemia, Hypertension, Myocardial Infarction Denies:: Diabetes Mellitus Type 1, Diabetes Mellitus Type 2, Internal Pacemaker, MRSA, Seizures *Have you ever received a pneumonia vaccine?: No *Have you received a flu vaccine this season?: No Other Medical History: Reports: Chemotherapy. Denies: Blood Transfusion Reaction Other Surgeries: Yes: CABG, Cardiac Catheterization, Colonoscopy, Colon Resection, Coronary Stent, Hysterectomy-Total, Hysterectomy-Partial, Other (cardioversionX2). No: Pacemaker Amputation: No Fractures: No - *Social History Smoking Status: Former smoker Tobacco Type: cigarettes #Yrs smoked (if former smoker): 45 Alcohol Intake: never Substance Use Type: denies use *Occupational Status:: other Housing: house Household Members: spouse *Travel in the last 8 weeks: None Family Hx:: Cancer, Coronary Artery Disease, Diabetes, Heart Attack, Hyperlipidemia, Hypertension
== END ==
PROVIDERS: PCP Nurse Practitioner Family; Visit Provider Clinical Nurse Specialist Family Health
DX: M48.56XA Collapsed vertebra, not elsewhere classified, lumbar region, initial encounter for fracture (principal)
CPT/HCPCS: 99212

== ENCOUNTER → 2019-12-03 16:09 | Outpatient (CLI) | payer MEDICARE, SELFPAY ==
[2019-12-03 18:47] LABS: Blood Urea Nitrogen 16 mg/dL (7-18); Creatinine,Serum 1.08 mg/dL (0.55-1.02); Estimated Glomerular Filt Rate 51 ml/min (>60); GFR (African American) 61 ML/MIN (>60)
[2019-12-05 15:24] LABS: Alanine Aminotransferase 17 U/L (12-78); Albumin Level 3.9 gm/dL (3.4-5.0); Albumin/Globulin Ratio 1.1 (1.1-1.8); Alkaline Phosphatase 107 U/L (46-116); Anion Gap 11.9 mEq/L (5-15); Aspartate Amino Transferase 11 U/L (15-37); Bilirubin,Total 0.6 mg/dL (0.2-1.0); Blood Urea Nitrogen 16 mg/dL (7-18); Calcium 9.4 mg/dL (8.5-10.1); Carbon Dioxide 31 mmol/L (21.0-32.0); Chloride 105 mmol/L (98-107); Chol/HDL Ratio 5.7 (1-3.5); Cholesterol 306 mg/dL (140-200); Creatinine,Serum 1.04 mg/dL (0.55-1.02); Estimated Glomerular Filt Rate 53 ml/min (>60); GFR (African American) 64 ML/MIN (>60); Globulin 3.6 gm/dl (1.3-3.2); Glucose 91 mg/dL (74-106); HDL Cholesterol 54 mg/dL (29-89); LDL Cholesterol 191 mg/dL (0-130); Potassium 4.9 mmoL/L (3.5-5.1); Sodium 143 mmol/L (136-145); Thyroid Stimulating Hormone 1.48 uIU/ml (0.358-3.740); Total Protein,Serum 7.5 gm/dL (6.4-8.2); Triglycerides 307 mg/dL (30-200); VLDL Cholesterol 61 mg/dL (0-40)
== END ==
PROVIDERS: Visit Provider Nurse Practitioner Family
DX: I10 Essential (primary) hypertension (principal); Z79.899 Other long term (current) drug therapy
CPT/HCPCS: 36415; 80053; 80061; 82565; 84443; 84520

== ENCOUNTER → 2019-12-10 13:35 | Outpatient (CLI) | payer MEDICARE, SELFPAY ==
--- NOTE | 2019-12-10 13:38 | CT_ITS ---
PROCEDURE: CT CHEST W CON CLINCAL INDICATION: LUNG NODULE Follow-up lung nodule, COPD, shortness of air COMPARISON: CHESTW CT chest w con from 05/08/2019 TECHNIQUE: IV Contrast: 75ml Optiray 350 Axial images obtained with sagittal and coronal reformats. All CT scans at the facility use one or more dose reduction, viz: automated exposure control, ma/kV adjustment per patient size (including targeted exams where dose is matched to indication, i.e. head), or iterative reconstruction technique. FINDINGS: Prior CABG. There is tortuosity/mild ectasia the thoracic aorta. No evidence of aortic dissection. No evidence of pulmonary embolus. The right hemidiaphragm is elevated with consolidation in the right lower lobe posteriorly with air bronchograms and atelectatic changes in the right lung base centrally. Patchy density is present in the left lower lobe laterally suggesting some mild pneumonitis in this region. The noncalcified nodule in the right middle lobe previously described is not reproduced on today's exam. The left upper lobe nodule now appear to contain a focus of calcification. No new nodules are evident. Increasing wedge compression changes are present at T7 vertebral body with loss of height anteriorly of approximately 50 percent with a well-circumscribed lucent defect in the mid aspect of the vertebral body. There is a small hiatal hernia. IMPRESSION: 1. Previously noted left upper lobe nodule appears to contain a focus of calcification consistent with a granuloma. Previously noted right middle lobe nodule is not identified on today's exam. 2. Consolidation in the right lower lobe posteriorly with air bronchograms consistent with pneumonia with elevated right hemidiaphragm and right basilar atelectasis. Patchy density is present in the left lung base laterally consistent with an area of pneumonitis. 3. Increasing wedge compression changes of T7 without obvious retropulsion Dictated by: Zhao Paul MD 12/11/2019 14:02 Electronically signed by Zhao Paul MD in [facility] 12/11/2019 14:02
== END ==
PROVIDERS: PCP Nurse Practitioner Family; Visit Provider Nurse Practitioner Family
DX: R91.1 Solitary pulmonary nodule (principal)
CPT/HCPCS: 71260; Q9967

== ENCOUNTER → 2020-02-05 16:00 | Outpatient (CLI) | payer MEDICARE, SELFPAY ==
--- NOTE | 2020-02-05 16:08 | XR_ITS ---
PROCEDURE: XR CHEST 2V CLINICAL HISTORY: FATIGUE,SOB,DIZZINESS Fatigue and shortness of breath COMPARISON: CXR2V XR chest 2V from 01/16/2019 CT CHEST W CON from 12/10/2019 FINDINGS: There has been a prior CABG. Coronary artery stent is present as well. Atelectatic changes are present in the left lung base. There is increased density in the right lung base consistent with right-sided effusion with volume loss with elevation of the hemidiaphragm. Upper lobes are clear. There are wedge compression changes involving T7 which is increased compared to the previous exam. There is an old left humeral neck fracture. IMPRESSION: Right-sided pleural effusion with right basilar volume loss and left basilar atelectasis. Wedge compression changes of T7 with loss of height of approximately 50 percent which has developed since the previous exam. Dictated by: Zhao Paul MD 02/05/2020 16:26 Electronically signed by Zhao Paul MD in [facility] 02/05/2020 16:26
[2020-02-05 17:04] LABS: Basophils # 0.1 K/mm3 (0-0.2); Basophils % 0.8 % (0.1-2.0); Eosinophils # 0.3 K/mm3 (0.0-0.4); Eosinophils % 3.6 % (0.1-12.0); Hematocrit 44.4 % (37.0-47.0); Hemoglobin 14.9 g/dL (12.2-16.2); Lymphocytes # 2.1 K/mm3 (0.7-4.5); Lymphocytes % 24.2 % (10-50); Mean Corpuscular HGB Conc 33.5 g/dL (31.8-35.4); Mean Corpuscular Hemoglobin 30.5 pg (27.0-31.2); Mean Corpuscular Volume 90.9 fl (81-99); Mean Platelet Volume 7.9 fl (7.4-10.4); Monocytes # 0.4 K/mm3 (0.1-1.0); Monocytes % 4.7 % (1.7-9.3); Neutrophils # 5.8 K/mm3 (1.8-7.8); Neutrophils % 66.7 % (37.0-80.0); Platelet Count 295 K/mm3 (142-424); Red Blood Count 4.88 M/mm3 (4.20-5.40); White Blood Count 8.6 K/mm3 (4.8-10.8)
[2020-02-05 18:23] LABS: Alanine Aminotransferase 17 U/L (12-78); Albumin Level 4.3 g/dl (3.5-5.0); Albumin/Globulin Ratio 1.6 (1.1-1.8); Alkaline Phosphatase 78 U/L (38-126); Anion Gap 16.2 mEq/L (5-15); Aspartate Amino Transferase 23 U/L (14-36); Bilirubin,Total 1.2 mg/dl (0.2-1.3); Blood Urea Nitrogen 20 mg/dl (7-17); Calcium 10.2 mg/dl (8.4-10.2); Carbon Dioxide 28 mmol/L (22.0-30.0); Chloride 102 mmol/L (98-107); Estimated Glomerular Filt Rate 41 ml/min (>60); GFR (African American) 49 ML/MIN (>60); Globulin 2.7 g/dL (1.3-3.2); Glucose 92 mg/dl (74-100); Potassium 4.2 mmoL/L (3.5-5.1); Sodium 142 mmol/L (136-145)
[2020-02-05 18:53] LABS: Thyroid Stimulating Hormone 0.04 uIU/mL (0.465-4.68)
[2020-02-06 19:15] LABS: Triiodothryronine (T3) Uptake 41 % (23.5-40.5)
[2020-02-06 20:55] LABS: Free T4 (Free Thyroxine) 1.18 ng/dl (0.78-2.19)
[2020-02-07 04:43] LABS: Vitamin B12 1370 pg/mL (232-1245)
[2020-02-07 09:38] LABS: Vitamin D 25 Hydroxy 18.2 ng/mL (30.0-100.0)
[2020-02-09 14:05] LABS: Thyroid Peroxidase Antibodies 19 IU/mL (0-34)
== END ==
PROVIDERS: PCP Nurse Practitioner Family; Visit Provider Nurse Practitioner Family
DX: R42 Dizziness and giddiness (principal); R06.02 Shortness of breath; R53.83 Other fatigue; E55.9 Vitamin D deficiency, unspecified
CPT/HCPCS: 36415; 71046; 80053; 82607; 82652; 84439; 84443; 84479; 85025; 86376; 93225; 93226

== ENCOUNTER → 2020-02-11 07:39 | Outpatient (CLI) | payer MEDICARE, SELFPAY | PROVIDERS: PCP Nurse Practitioner Family; Visit Provider Nurse Practitioner Family | DX: R42 Dizziness and giddiness (principal); R06.02 Shortness of breath; R53.83 Other fatigue | CPT/HCPCS: 93306 ==

== ENCOUNTER → 2020-02-16 06:52 | Outpatient (CLI) | payer MEDICARE, SELFPAY ==
--- NOTE | 2020-02-16 06:55 | NM_ITS ---
PROCEDURE: NM THYROID IMAGE UPTAKE CLINICAL INDICATION: HYPERTHYROIDISM COMPARISON: No exams were available for comparison TECHNIQUE: Dose: 347 uCi I 123 p.o. FINDINGS: Uptake: 6 hour uptake is 7 percent. 24 hour uptake is 11 percent. These values are within normal limits. The thyroid gland is mildly enlarged on both sides with mild prominence of the isthmus. No hot or cold nodules are evident. IMPRESSION: Normal 6 and 24 hour radioiodine uptake with thyromegaly without obvious hyper or hypoactive nodule Dictated by: Zhao Paul MD 02/17/2020 15:56 Electronically signed by Zhao Paul MD in [facility] 02/17/2020 15:56
--- NOTE | 2020-02-16 07:26 | HMH.ITSHM ---
Current Home Medications as stated by this patient Supriya Andres or senior account representative. []TEMAZEPAM ROPINIROLE LOSARTAN FUROSEMIDE FLUTICASONE FAMOTIDINE ATORVASTATIN APIXABAN CLOPIDOGREL
== END ==
PROVIDERS: PCP Nurse Practitioner Family; Visit Provider Nurse Practitioner Family
DX: E05.90 Thyrotoxicosis, unspecified without thyrotoxic crisis or storm (principal)
CPT/HCPCS: 78014; A9516

== ENCOUNTER → 2020-02-17 06:55 | Outpatient (CLI) | payer MEDICARE, SELFPAY ==
--- NOTE | 2020-02-17 07:02 | FL_ITS ---
PROCEDURE: FLUORO UP TO 1 HOUR CLINICAL INDICATION: ELEVATED DIAPHRAM COMPARISON: XR CHEST 2V from 02/05/2020 FINDINGS: Fluoroscopy time: 47 seconds. The patient was observed and instructed to take deep sniff is in. There was paradoxical motion of the right hemidiaphragm with the hemidiaphragm initially moving up on inspiration. Later during the inspiration the diaphragm did move downward. There was normal downward excursion motion of the left hemidiaphragm IMPRESSION: Paradoxical motion of the right hemidiaphragm on inspiration consistent with paralysis of the right hemidiaphragm Dictated by: Zhao Paul MD 02/17/2020 15:49 Electronically signed by Zhao Paul MD in [facility] 02/17/2020 15:49
== END ==
PROVIDERS: PCP Nurse Practitioner Family; Visit Provider Nurse Practitioner Family
DX: J98.6 Disorders of diaphragm (principal); E05.90 Thyrotoxicosis, unspecified without thyrotoxic crisis or storm
CPT/HCPCS: 76000

== ENCOUNTER → 2020-02-18 07:42 | Outpatient (CLI) | payer MEDICARE, SELFPAY ==
--- NOTE | 2020-02-18 | CA_ITS ---
APPROVED REPORT Exam: Pharmacologic Technologist: Francine Davis Ht: 5 ft 4 in Wt: 180 lbs BSA: 1.87 m2 HR: 63 bpm BP: 106/74 mmHg Indications: Chest pain Medical History Medications: Furosemide (LASIX),,,,, Losartan,,,,, Atorvastatin,,,,, Temazepam,,,,, CloPIdogrel,,,,, Famotidine,,,,, BisOPROLOL,,,,, Apixaban,,,,, Evolocumab,,,,, Stress Test Details Test: LEXISCAN HR Resting HR: 62 bpm Max Heart Rate (APMHR): 152 bpm Max HR Achieved: 90 bpm Target HR (85% APMHR): 129 bpm % of APMHR: 59 Recovery HR: 73 bpm BP Resting BP: 106.0/74.0 mmHg Max BP: 126.0/75.0 mmHg Recovery BP: 116.0/73.0 mmHg ECG Clinical Exercise duration: 04:03 min Highest Stage Achieved: Exercise capacity: 1.0 METs Stress ECG Conclusion Resting ECG: Normal sinus rhythm, right axis deviation, NS ST abnormalties Symptoms: Shortness of air, malaise. No chest pain Arrhythmias/Ectopy: None ST-T Changes: Approximately 1mm downsloping ST depression inferiorly and 0.75mm laterally. Conclusion: Non-diagnostic Lexiscan stress. Myoview images reported separately. Electronically signed by : Heath Noriega, 02/19/2020 15:32:31
--- NOTE | 2020-02-18 07:42 | NM_ITS ---
APPROVED REPORT Exam: Nuclear Stress Test Indication: cad, 5 stints, cabg, htn, hyperlipidemia, former tob user, c.p., sob Patient Location: Outpatient Stress Tech: Francine Davis NC Tech:Sharon Sanchez, ARRT, RT (R)(N) Ht: 5 ft 4 in Wt: 180 lbs Bra Size: 38c HR: 63 bpm BP: 106/74 mmHg BSA: 1.87 m2 BMI: 30.8 History: cad, 5 stints, cabg, htn, hyperlipidemia, former tob user, c.p., sob Procedure: Patient received a 0.4 mg of intravenous Lexiscan, resting heart rate 63 bpm, resting blood pressure 106/74 mmHg, with Lexiscan maximum heart rate achived was 87 bpm which is Less than 85 % of the maximum predicted heart rate and blood pressure was 126/75 mmHg. soa, malaise Electrocardiogram Resting electrocardiogram showed sinus rhythm nonspecific ST-T changes, with Lexiscan there is additional [address] segment depression noted from the baseline EKG. The EKG portion of the Lexiscan Myoview is nondiagnostic due to baseline abnormality, however due to marked ST segment depression with Lexiscan additional ischemia cannot be excluded. Cardiac Stress and Resting SPECT Images: Cardiac Stress and Resting SPECT images were obtained using technetium 99m Myoview 32.3 mCi stress and 10.29 mCi at rest. Gated SPECT for analysis of segmental wall motion and calculation of the ejection fraction also done. Cardiac stress and resting SPECT images show uniform myocardial activity without segmental perfusion abnormality, computer derived ejection fraction is 52% with no regional wall motion abnormality, right ventricle is mildly enlarged with normal contractility. Conclusion: 1. The EKG portion of the Lexiscan Myoview is nondiagnostic due to baseline abnormal EKG. However due to marked ST segment depression from abnormal baseline EKG additional ischemia cannot be excluded. 2. No scintigraphic evidence of reversible ischemia, computer derived ejection fraction is 52% with no regional wall motion abnormality however due to EKG changes with Lexiscan possibility of balanced ischemia cannot be excluded. 3. Likely abnormal Lexiscan Myoview study. Electronically signed by : Heath Noriega, 02/19/2020 15:35:43
--- NOTE | 2020-02-18 07:59 | HMH.ITSHM ---
Current Home Medications as stated by this patient Supriya Andres or shared services representative. []TEMAZEPAM ROPINIROLE LOSARTAN FUROSEMIDE FLUTICASONE FAMOTIDINE EVOLOCUMAB BISOPROLOL ATORVASTATIN APIXABAN CLOPIDOGREL
== END ==
PROVIDERS: PCP Nurse Practitioner Family; Visit Provider Nurse Practitioner Family
DX: I25.118 Atherosclerotic heart disease of native coronary artery with other forms of angina pectoris (principal); R06.02 Shortness of breath
CPT/HCPCS: 78452; 93017; A9502; J2785

== ENCOUNTER → 2020-02-20 07:46 | Outpatient (CLI) | payer MEDICARE, SELFPAY ==
[2020-02-20 09:34] LABS: Chloride 101 mmol/L (98-107); Potassium 4.2 mmoL/L (3.5-5.1); Sodium 139 mmol/L (136-145)
[2020-02-20 09:37] LABS: Anion Gap 12.2 mEq/L (5-15); Blood Urea Nitrogen 32 mg/dl (7-17); Calcium 9.1 mg/dl (8.4-10.2); Carbon Dioxide 30 mmol/L (22.0-30.0); Estimated Glomerular Filt Rate 37 ml/min (>60); GFR (African American) 45 ML/MIN (>60); Glucose 99 mg/dl (74-100)
== END ==
PROVIDERS: Visit Provider Nurse Practitioner Family
DX: I50.9 Heart failure, unspecified (principal); R06.02 Shortness of breath
CPT/HCPCS: 36415; 80048

== ENCOUNTER → 2020-04-23 12:45 | Outpatient (CLI) | payer MEDICARE, SELFPAY ==
--- NOTE | 2020-04-23 12:48 | MM_ITS ---
PROCEDURE: MM DIG SCREENING MAMM BI W/CAD Digital Breast Tomosynthesis Included CLINICAL INDICATION: SCREENING There is no personal or family history of breast cancer. COMPARISON: The patient has had previous mammograms but is not sure where they were obtained and when TECHNIQUE: Standard CC and MLO images and 3D Tomosynthesis was obtained. R2 CAD reviewed. FINDINGS: Minimal fibroglandular densities are seen in the subareolar regions and central portions of both breast on a background of fatty breast parenchyma. There is faint arterial calcification in each breast. There are 2 small nodular densities left breast with benign features however since there are no previous studies for comparison recommend the patient return for six-month follow-up left mammogram to assure interval stability. There is no suspicious lesion in either breast and no suspicious microcalcifications. IMPRESSION: Fatty type breast parenchyma with 2 nodular benign-appearing densities left breast BI-RAD Category: 3 Probably Benign Finding Short Term Follow-up FOLLOW-UP: 6M 6Month Follow-up (A letter has been sent to the patient regarding results of the study.) Dictated by: Dr. Reji Dave MD 04/23/2020 14:[address] Reji Dave MD in [facility] 04/23/2020 14:09
== END ==
PROVIDERS: PCP Nurse Practitioner Family; Visit Provider Internal Medicine Adolescent Medicine
DX: Z12.31 Encounter for screening mammogram for malignant neoplasm of breast (principal)
CPT/HCPCS: 77063; 77067

== ENCOUNTER 2020-04-30 07:40 | Day surgery (SDC) | payer MEDICARE, SELFPAY ==
[2020-04-30] VITALS (11 sets, daily range): BP systolic 100–131; BP diastolic 56–85; PULSE 46–57; RESP 16–20; TEMP 36.7; O2SAT 94–99; BMI 30.9
[2020-04-30 08:12] LABS: Basophils # 0.1 K/mm3 (0-0.2); Basophils % 0.7 % (0.1-2.0); Eosinophils # 0.4 K/mm3 (0.0-0.4); Eosinophils % 4.6 % (0.1-12.0); Hematocrit 42.5 % (37.0-47.0); Hemoglobin 14.7 g/dL (12.2-16.2); Lymphocytes # 2.9 K/mm3 (0.7-4.5); Lymphocytes % 33.2 % (10-50); Mean Corpuscular HGB Conc 34.5 g/dL (31.8-35.4); Mean Corpuscular Hemoglobin 31.8 pg (27.0-31.2); Mean Corpuscular Volume 92.2 fl (81-99); Mean Platelet Volume 7.9 fl (7.4-10.4); Monocytes # 0.5 K/mm3 (0.1-1.0); Monocytes % 5.9 % (1.7-9.3); Neutrophils # 4.8 K/mm3 (1.8-7.8); Neutrophils % 55.6 % (37.0-80.0); Platelet Count 317 K/mm3 (142-424); Red Blood Count 4.61 M/mm3 (4.20-5.40); White Blood Count 8.6 K/mm3 (4.8-10.8)
[2020-04-30 08:18] LABS: Chloride 107 mmol/L (98-107)
[2020-04-30 08:19] LABS: Sodium 140 mmol/L (136-145)
[2020-04-30 08:21] LABS: Blood Urea Nitrogen 20 mg/dl (7-17); Creatinine Clearance Estimated 58 mL/min (50-200); Estimated Glomerular Filt Rate 45 ml/min (>60); GFR (African American) 54 ML/MIN (>60)
[2020-04-30 08:22] LABS: Calcium 9.3 mg/dl (8.4-10.2); Carbon Dioxide 27 mmol/L (22.0-30.0); Glucose 111 mg/dl (74-100)
--- NOTE | 2020-04-30 10:00 | IR_ITS ---
APPROVED REPORT Patient Location: Outpatient Poly Operator: GLENN Louise RT (R) PROCEDURES Right heart catheterization Left heart catheterization Left ventriculogram Selective coronary angiogram Left internal mammary angiography Drug-eluting stent deployment to the mid LAD INDICATION Coronary artery disease, Pulmonary hypertension, Recalcitrant angina pectoris, Abnormal stress test, History of coronary bypass surgery Informed consent was obtained prior to the procedure. COMPLICATIONS NONE Estimated Blood Loss: LESS THAN 10 MLS TECHNIQUE One percent lidocaine used to anesthetize the right groin. The right femoral artery was accessed via the Seldinger technique and a 5 Slovak sheath was placed in the right femoral artery. A JL 4, JR4 catheter were used to perform left heart catheterization, left ventriculogram selective coronary angiography as well as selective engagement of the left internal mammary artery. A 7 Slovak sheath was also placed in the right femoral vein. Therapeutic heparin was administered and a JL4 guide catheter was placed in the left main artery after the 5 Slovak arterial sheath was exchanged for a 6 Slovak sheath. A choice floppy wire was placed distal [place]ul in the LAD where a 2.25 x 12 mm resolute adelso stent was deployed at 22 dennise reducing the stenosis. There was a an eccentric kink or depression in the stent therefore a 2.5 x 8 mm noncompliant balloon was then deployed at 24 dennise reducing this eccentric kink to less than 10%. RADHA-3 flow was present before and after the procedure. At the end of the procedure the apparatus was removed the groin was reprepped gloves were changed sheath was removed good hemostasis was achieved using Perclose device. At this point the femoral venous sheath was used to perform right heart catheterization where saturations were performed as well as a hemodynamic profile. At the end of the procedure the patient was transferred to the postop holding area in stable addition for sheath removal. ANGIOGRAPHIC RESULTS The left main artery Normal The left anterior descending artery Has a stent in the proximal through mid segment which is widely patent in the proximal segment however there is a 90% focal in-stent restenotic lesion in the distal portion of the mid LAD. Distal to the stent there is a 30% transitioning stenosis. No competitive flow is identified from the left internal mammary artery The circumflex artery Is a nondominant vessel and has mild 10% luminal irregularities The right coronary artery Is a large dominant vessel with mild calcified 20 to 30% proximal and mid vessel and distal stenoses. The posterior descending artery has a proximal concentric 40% stenosis The NAYAK ventriculogram reveals Mildly reduced at 45 to 50% The left ventricular end-diastolic pressure 12 mmHg The left internal mammary artery is physiologically occluded in its ostial proximal segment and provides no antegrade flow to the LAD Right atrial pressure 10 mmHg Pulmonary pressure 42/18 mmHg Pulmonary occlusion pressure 12 mmHg Right atrial saturation 81% Pulmonary artery saturation 81% IMPRESSION Occluded left internal mammary artery graft Severe stenosis in the mid LAD Successful stenting of the mid LAD severe stenosis reduced to less than 10% with one drug-eluting stent Mildly reduced ejection fraction Moderate pulmonary hypertension Normal to mildly elevated left-sided filling pressures PLAN 1. Dual antiplatelet therapy 2. Risk factor modification 3. Cardiac rehabilitation 4. Avoidance of tobacco products Electronically signed by : Frank Abdalla, 04/30/2020 10:48:58
[2020-04-30 12:54] LABS: CATHL Arterial O2 SAT 81.5 % (90-100)
[2020-04-30 13:01] LABS: CATHL Venous O2 SAT 81.9 % (75-80)
[2020-04-30 13:04] LABS: CATHL Activated Clotting Time 333 SEC (74-125)
--- NOTE | 2020-04-30 14:15 | HMH.PHACLD ---
Supriya Andres has received discharge medication counseling on the following medications: PATIENT IS CURRENTLY TAKING ATORVASTATIN 40 MG HS, LOSARTAN 25 MG DAILY, BISOPROLOL 5 MG, AND CLOPIDOGREL 75 MG DAILY. MD NOT WANTING TO START ASPIRIN AT THIS TIME.
== END 2020-04-30 14:30 | disposition home or self-care (01) ==
LOC: CATHLAB 07:42
PROVIDERS: PCP Nurse Practitioner Family; Visit Provider Internal Medicine
DX: I25.118 Atherosclerotic heart disease of native coronary artery with other forms of angina pectoris; I27.20 Pulmonary hypertension, unspecified; E78.2 Mixed hyperlipidemia; I10 Essential (primary) hypertension; Z95.1 Presence of aortocoronary bypass graft; I48.91 Unspecified atrial fibrillation; Z79.01 Long term (current) use of anticoagulants; Z88.0 Allergy status to penicillin; Z88.8 Allergy status to other drugs, medicaments and biological substances; I25.728 Atherosclerosis of autologous artery coronary artery bypass graft(s) with other forms of angina pectoris; Z88.5 Allergy status to narcotic agent; J44.9 Chronic obstructive pulmonary disease, unspecified; Z79.899 Other long term (current) drug therapy
CPT/HCPCS: 80048; 82810; 85025; 85347; 92928; 93461; 99152; 99153; C1725; C1760; C1769; C1876; C1894; C9600; J1644; Q9967

== ENCOUNTER 2020-05-18 08:55 | Outpatient (RCR) | payer MEDICARE, MEDICAID, SELFPAY | END 2020-09-02 13:41 | disposition home or self-care (01) | LOC: PT 08:55 | PROVIDERS: Visit Provider Internal Medicine | DX: Z95.5 Presence of coronary angioplasty implant and graft (principal) | CPT/HCPCS: 93798 ==

== ENCOUNTER → 2020-06-09 14:31 | Outpatient (CLI) | payer MEDICARE, MEDICAID, SELFPAY ==
[2020-06-09 15:38] LABS: Chloride 101 mmol/L (98-107); Potassium 4.8 mmoL/L (3.5-5.1); Sodium 141 mmol/L (136-145)
[2020-06-09 15:41] LABS: Anion Gap 14.8 mEq/L (5-15); Blood Urea Nitrogen 14 mg/dl (7-17); Calcium 10.2 mg/dl (8.4-10.2); Carbon Dioxide 30 mmol/L (22.0-30.0); Estimated Glomerular Filt Rate 45 ml/min (>60); GFR (African American) 54 ML/MIN (>60); Glucose 98 mg/dl (74-100)
[2020-06-09 15:41] LABS: Bilirubin,Unconjugated 0.9 mg/dL (0.0-1.1)
[2020-06-09 15:42] LABS: Alanine Aminotransferase 14 U/L (12-78); Albumin Level 4.3 g/dl (3.5-5.0); Alkaline Phosphatase 85 U/L (38-126); Aspartate Amino Transferase 24 U/L (14-36); Bilirubin,Direct 0.1 mg/dl (0.0-0.4); Bilirubin,Indirect 0.9 mg/dL (0.0-0.9); Chol/HDL Ratio 1.4 (1-3.5); Cholesterol 103 mg/dl (140-200); HDL Cholesterol 76 mg/dl (40-60); Total Protein,Serum 7.1 g/dl (6.3-8.2); Triglycerides 154 mg/dl (30-150); VLDL Cholesterol 31 mg/dL (0-40)
[2020-06-09 15:54] LABS: Direct LDL Cholesterol < 30.00 mg/dL (100-129)
== END ==
PROVIDERS: Nurse Practitioner Family; Visit Provider Internal Medicine Cardiovascular Disease
DX: I10 Essential (primary) hypertension (principal); I25.10 Atherosclerotic heart disease of native coronary artery without angina pectoris; R06.02 Shortness of breath; E78.5 Hyperlipidemia, unspecified; I48.91 Unspecified atrial fibrillation; Z86.79 Personal history of other diseases of the circulatory system; Z95.1 Presence of aortocoronary bypass graft; Z98.890 Other specified postprocedural states
CPT/HCPCS: 36415; 80048; 80061; 80076

== ENCOUNTER → 2020-06-18 14:15 | Outpatient (CLI) | payer MEDICARE, MEDICAID, SELFPAY ==
[2020-06-18 16:04] LABS: Chol/HDL Ratio 1.4 (1-3.5); Cholesterol 92 mg/dl (140-200); HDL Cholesterol 68 mg/dl (40-60); Triglycerides 151 mg/dl (30-150); VLDL Cholesterol 30 mg/dL (0-40)
[2020-06-18 16:28] LABS: Direct LDL Cholesterol < 30.00 mg/dL (100-129)
== END ==
PROVIDERS: Visit Provider Nurse Practitioner Family
DX: E78.5 Hyperlipidemia, unspecified (principal)
CPT/HCPCS: 36415; 80061

== ENCOUNTER → 2020-07-08 13:28 | Outpatient (POV) | payer MEDICARE, MEDICAID, SELFPAY ==
[2020-07-08 13:53] VITALS: BP 133/72; PULSE 72; RESP 18; O2SAT 98; BMI 29.0
--- NOTE | 2020-07-08 15:25 | HMH.PAINSOAP ---
[facility] Pain Management SOAP Note Subjective:: Patient is a pleasant 68-year-old white female who presents today for follow-up. She is being treated for low back pain that is going into her left buttock left groin and the back of her left leg. Patient does have a history of a T7 compression fracture. Unfortunately, she was unable to undergo kyphoplasty because she is on Eliquis and Plavix for a history of atrial fibrillation. She did go for an ablation for her atrial fibrillation. Patient says she has had this low back pain with radiation into her left buttock and legs for about 6 months. The pain has progressively gotten worse. She does rate her pain an 8 out of 10 today. She does have tenderness over her left SI joint. Review of Systems General: No recent weight changes, no fever, no sleep disturbances Respiratory: No cough, no shortness of air, no recurring pulmonary infections Cardiovascular/peripheral vascular: No chest pain, no palpitations, no edema, no shortness of breath Gastrointestinal: No new onset incontinence, normal bowel movements reported Genitourinary: No new onset incontinence Musculoskeletal: Low back pain, left buttock pain, left groin pain Psychiatric: Normal mood/affect Neurological: [Denies weakness in extremities], [denies balance issues] Objective:: Physical exam General: Alert and oriented x3, no acute distress, pleasant and cooperative, [on room air] Lungs: Respirations even and unlabored, symmetrical chest expansion Eyes: PERRL Musculoskeletal: Flexion and extension of lumbar spine somewhat guarded secondary to pain, deep tendon reflexes normal, strength in upper and lower extremities [5/5], [abnormal gait noted], positive [place]'s test, positive Angel Luis's test, positive distraction test Neurological: Speech clear, 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 She has a positive Johnny, Angel Luis's, distraction test as well. We will schedule her for a left SI joint injection to see if this gives her relief. She will follow-up with us in the clinic after her injection to reassess her symptoms. She has been instructed to contact clinic if she has any concerns before next appointment. The patient and I specifically discussed risk factors for COVID19. These risks include, but are not limited to age greater than 60, heart or lung disease, diabetes, immunosuppression, and travel. We also discussed NSAIDs may worsen COVID19 infection or symptoms. Patient should not use NSAIDs to treat COVID19 signs or symptoms. Patient was also informed that any type of corticosteroid of any form (oral or injection) will decrease the patient's immune system response and may increase the likelihood of COVID19 infection and symptoms. And [facility] History I have reviewed the patient's past medical history: Yes Medical History: Reports:: Arrhythmia, Atrial Fibrillation, Congestive Heart Failure, Chronic Obstructive Pulmonary Disease (COPD), Coronary Artery Disease, Diabetes Mellitus Type 2, Hyperlipidemia, Hypertension, Myocardial Infarction Denies:: Cancer, Diabetes Mellitus Type 1, Internal Pacemaker, MRSA, Seizures *Have you ever received a pneumonia vaccine?: Yes *Have you received a flu vaccine this season?: Yes Other Medical History: Reports: Chemotherapy. Denies: Blood Transfusion Reaction Other Surgeries: Yes: CABG, Cardiac Catheterization, Colonoscopy, Colon Resection, Coronary Stent, Hysterectomy-Total, Hysterectomy-Partial, Other (cardioversionX2). No: Pacemaker Amputation: No Fractures: No - *Social History Smoking Status: Never smoker Tobacco Type: cigarettes #Yrs smoked (if former smoker): 45 Alcohol Intake: never Substance Use Type: denies use *Occupational Status:: other Housing: house Household Members: spouse
== END ==
PROVIDERS: PCP Nurse Practitioner Family; Visit Provider Clinical Nurse Specialist Family Health
DX: S22.000A Wedge compression fracture of unspecified thoracic vertebra, initial encounter for closed fracture (principal); M46.1 Sacroiliitis, not elsewhere classified
CPT/HCPCS: 99212

== ENCOUNTER 2020-07-16 11:04 | Day surgery (SDC) | payer MEDICARE, OTHER, SELFPAY ==
[2020-07-16 11:18] VITALS: BP 136/79; PULSE 55; RESP 18; TEMP 36.1; O2SAT 94; BMI 28.3
--- NOTE | 2020-07-16 12:10 | HMH.PMPROC ---
- Procedure Date: 07/16/20 Time: 12:10 Anesthesiologist:: Uriel Sharma MD Complications:: None Pre-procedure Diagnosis:: Sacroiliitis Post-procedure Diagnosis:: Same Indications for Procedure:: This patient is a pleasant 69-year-old white female who we have been treating for previous compression fracture at the T7 vertebral body. She is unable to come off her anticoagulation so she cannot have a kyphoplasty. She is also tender over her left SI joint. She has positive Angel Luis's test on left side. She is positive Johnny test on left side. She has a positive SI joint compression test on left side. We will do a left SI joint injection under fluoroscopy today to help her with her pain symptoms. Procedure Details:: Left SI joint injection under fluoroscopy Informed consent was obtained and the risks and benefits of the procedure was explained to the patient. Patient was taken to the procedure room. Patient was placed prone on the procedure table. The left hip was prepped using ChloraPrep. The skin and subcutaneous tissues were anesthetized using lidocaine. I placed a 22-gauge spinal needle into the inferior aspect of the left SI joint. Needle placement was confirmed with dye. After this we injected 5 mL bupivacaine 0.25% and Depo-Medrol 40 mg into the left SI joint. The patient tolerated the procedure well with no complication. Plan and Disposition:: We will follow-up with her in 2 weeks. Will reevaluate symptoms at that time.
[2020-07-16 12:17] VITALS: BP 116/78; PULSE 85; RESP 18
[2020-07-16 12:19] VITALS: BP 118/78; PULSE 71; RESP 18
[2020-07-16 12:25] VITALS: BP 120/68; PULSE 50; RESP 20; O2SAT 94
== END 2020-07-16 12:25 | disposition home or self-care (01) ==
LOC: SC.PAINP 11:05
PROVIDERS: PCP Nurse Practitioner Family; Visit Provider Anesthesiology
DX: M46.1 Sacroiliitis, not elsewhere classified (principal); I10 Essential (primary) hypertension; I25.10 Atherosclerotic heart disease of native coronary artery without angina pectoris; E78.5 Hyperlipidemia, unspecified; J44.9 Chronic obstructive pulmonary disease, unspecified; Z82.49 Family history of ischemic heart disease and other diseases of the circulatory system; Z95.818 Presence of other cardiac implants and grafts; Z95.1 Presence of aortocoronary bypass graft; I48.91 Unspecified atrial fibrillation; Z88.0 Allergy status to penicillin; Z88.8 Allergy status to other drugs, medicaments and biological substances; Z79.899 Other long term (current) drug therapy
CPT/HCPCS: 27096; G0260; J1040; Q9966

== ENCOUNTER → 2020-08-05 08:45 | Outpatient (CLI) | payer MEDICARE, MEDICAID, SELFPAY ==
--- NOTE | 2020-08-05 08:54 | XR_ITS ---
PROCEDURE: XR CHEST PORTABLE CLINICAL HISTORY: SHORTNESS OF BREATH COMPARISON: CR CXR2V XR chest 2V from 01/16/[address] CHEST W CON from 12/10/2019 CR XR CHEST 2V from 02/05/2020 FINDINGS: There has been a prior median sternotomy. The heart size is normal. Coronary artery stent is present on the left. Right hemidiaphragm is elevated. There is infiltrate in the right lung base. There is suggestion of a small right pleural effusion. There are degenerative changes of the shoulders. No acute bony abnormalities. IMPRESSION: Right lower lobe pneumonia with possible small effusion Dictated by: Zhao Paul MD 08/05/2020 09:30 Zhao Paul MD in [facility] 08/05/2020 09:30
[2020-08-06 13:04] LABS: Covid-19 Nasal PCR Sendout Lex Positive
== END ==
PROVIDERS: PCP Nurse Practitioner Family; Visit Provider Nurse Practitioner Family
DX: R06.02 Shortness of breath (principal); Z20.828 Contact with and (suspected) exposure to other viral communicable diseases
CPT/HCPCS: 71045; U0004

== ENCOUNTER 2020-08-08 21:05 | Emergency (ER) | payer MEDICARE, MEDICAID, SELFPAY ==
[2020-08-08 21:20] VITALS: BP 112/75; PULSE 79; RESP 16; TEMP 36.6; O2SAT 98; BMI 28.8
--- NOTE | 2020-08-08 21:37 | XR_ITS ---
PROCEDURE: XR CHEST PORTABLE CLINICAL INDICATION: cough COMPARISON: CR CXR2V XR chest 2V from 01/16/[address] CHEST W CON from 12/10/2019 CR XR CHEST 2V from 02/05/2020 CR XR CHEST PORTABLE from 08/05/2020 FINDINGS: Prior CABG. Unremarkable cardiovascular structures. Coronary artery calcifications. Infiltrate present in the right mid lower lung zone slightly improved. There is some increased markings in the left lung base suggesting atelectasis or infiltrate. This has developed since the previous exam. There is an old left humeral neck fracture IMPRESSION: Mixed response with persistent but improving infiltrate in the right lower lobe and right midlung with increased markings in the left lower lobe which may be due to atelectasis or developing infiltrate. Dictated by: Zhao Paul MD 08/09/2020 07:53 Zhao Paul MD in [facility] 08/09/2020 07:53
[2020-08-08 21:59] VITALS: BP 124/86; PULSE 65; RESP 18; O2SAT 93
[2020-08-08 22:00] LABS: Basophils % 0.2 % (0.1-2.0); Eosinophils % 0.4 % (0.1-12.0); Hematocrit 42.3 % (37.0-47.0); Hemoglobin 14.7 g/dL (12.2-16.2); Lymphocytes # 1.4 K/mm3 (0.7-4.5); Lymphocytes % 31.3 % (10-50); Mean Corpuscular HGB Conc 34.8 g/dL (31.8-35.4); Mean Corpuscular Hemoglobin 31.9 pg (27.0-31.2); Mean Corpuscular Volume 91.9 fl (81-99); Monocytes # 0.3 K/mm3 (0.1-1.0); Monocytes % 7.1 % (1.7-9.3); Neutrophils # 2.7 K/mm3 (1.8-7.8); Platelet Count 213 K/mm3 (142-424); Red Cell Distribution Width 13.6 % (11.5-17.5); White Blood Count 4.4 K/mm3 (4.8-10.8)
[2020-08-08 22:02] LABS: Chloride 101 mmol/L (98-107); Sodium 134 mmol/L (136-145)
[2020-08-08 22:03] LABS: Potassium 3.5 mmoL/L (3.5-5.1)
[2020-08-08 22:05] LABS: Alanine Aminotransferase 16 U/L (12-78); Albumin Level 3.9 g/dl (3.5-5.0); Albumin/Globulin Ratio 1.1 (1.1-1.8); Alkaline Phosphatase 74 U/L (38-126); Anion Gap 14.5 mEq/L (5-15); Aspartate Amino Transferase 41 U/L (14-36); Bilirubin,Total 0.9 mg/dl (0.2-1.3); Blood Urea Nitrogen 10 mg/dl (7-17); Carbon Dioxide 22 mmol/L (22.0-30.0); Creatinine Clearance Estimated 65 mL/min (50-200); Estimated Glomerular Filt Rate 62 ml/min (>60); GFR (African American) 75 ML/MIN (>60); Globulin 3.7 g/dL (1.3-3.2); Glucose 105 mg/dl (74-100); Total Protein,Serum 7.6 g/dl (6.3-8.2)
[2020-08-08 22:11] VITALS: BP 100/83; PULSE 77; RESP 18; O2SAT 93
[2020-08-08 22:11] LABS: C-Reactive Protein 62.1 mg/L (0-4)
[2020-08-08 22:14] LABS: Microscopic, Urine URINE MICROSCOPIC (MICROSCOPIC)
[2020-08-08 22:25] LABS: Appearance,Urine CLOUDY (Clear); Blood, Urine TRACE-I (Negative); Color,Urine DK YELLOW (Yellow); Glucose,Urine (UA) Negative (Negative); Ketones,Urine TRACE (Negative); Leukocyte Esterase,Urine Negative (Negative); Nitrate,Urine Negative (Negative); PH,Urine 5.5 (5.0-8.5); Protein,Urine 1+ (Negative); Specific Gravity, Urine >= 1.030 (1.005-1.030); Urobilinogen,Urine 0.2 EU/dl (0.2)
[2020-08-08 22:28] LABS: Erythrocyte Sedimentation Rate 26 mm/hr (0-30)
[2020-08-08 22:29] LABS: Bilirubin,Urine Negative (Negative)
[2020-08-08 22:30] LABS: Mucus,Urine 1+ /lpf; Squamous Epithelial Cell,Urine 50-100 #/hpf (0-5)
--- NOTE | 2020-08-08 22:45 | PC.NURSE ---
called respiratory for albuterol inhaler puff. spoke with will.
[2020-08-08 23:00] VITALS: BP 101/69; PULSE 76; RESP 16; O2SAT 95
[2020-08-08 23:30] VITALS: BP 114/77; PULSE 62; RESP 14; O2SAT 96
--- NOTE | 2020-08-08 23:35 | PC.NURSE ---
pt unable to give sample at this time. sitting upright in bed, family at bedside.
--- NOTE | 2020-08-08 23:57 | HMH.EDNVD ---
ED Disposition Clinical Impression: Gastroenteritis, COVID-19 Disposition: Home, Self-Care Condition on Discharge: Good Instructions: DI for Diarrhea and Traveler's Diarrhea -- Adult Additional Instructions: fluids and call pcp this am Referrals: Kalpana Mcguire APRN [Primary Care Provider] - - Critical Care Critical Care Time: No Attestation: On 08/08/20, the high probability of a clinically significant, sudden or life threatening deterioration of the following system(s) required my full and direct attention, intervention and personal management. The time I documented below is in addition to time spent performing reported procedures but includes the following listed in this critical care notation. Medical Decision Making - Medical Records Medical records reviewed: Yes: I reviewed the patient's medical records. - Donald Inquiry Pt receiving controlled substance: No Vital Signs: 08/08/20 21:20 08/08/20 21:59 08/08/20 22:11 Temperature 97.8 F Temperature Source Oral Pulse Rate [Right Brachial] 79 65 77 Respiratory Rate 16 18 18 Blood Pressure [Right Arm] 112/75 124/86 100/83 L Blood Pressure Mean [Right Arm] 87 98 88 Blood Pressure Source [Right Arm] Automatic Cuff Blood Pressure Position [Right Arm] Sitting 02 Sat by Pulse Oximetry 98 93 L 93 L Oxygen Delivery Method Room Air Room Air Room Air Oxygen Flow Rate (LPM) 08/08/20 23:00 08/08/20 23:30 08/09/20 00:00 Temperature Temperature Source Pulse Rate [Right Brachial] 76 62 70 Respiratory Rate 16 14 15 Blood Pressure [Right Arm] 101/69 L 114/77 99/48 L Blood Pressure Mean [Right Arm] 79 89 65 Blood Pressure Source [Right Arm] Automatic Cuff Automatic Cuff Automatic Cuff Blood Pressure Position [Right Arm] Sitting Sitting Sitting 02 Sat by Pulse Oximetry 95 96 93 L Oxygen Delivery Method Nasal Cannula Room Air Nasal Cannula Oxygen Flow Rate (LPM) 2 08/09/20 00:30 08/09/20 01:00 08/09/20 02:51 Temperature Temperature Source Pulse Rate [Right Brachial] 78 66 66 Respiratory Rate 15 16 18 Blood Pressure [Right Arm] 104/73 L 116/94 H 109/75 L Blood Pressure Mean [Right Arm] 83 101 86 Blood Pressure Source [Right Arm] Automatic Cuff Blood Pressure Position [Right Arm] Sitting 02 Sat by Pulse Oximetry 92 L 94 L 95 Oxygen Delivery Method Nasal Cannula Room Air Oxygen Flow Rate (LPM) 2 - Lab Data Lab results reviewed: Yes: I reviewed the patient's lab results. Lab Results 08/08/20 21:09: WBC 4.4 L, RBC 4.60, Hgb 14.7, Hct 42.3, MCV 91.9, MCH 31.9 H, MCHC 34.8, RDW 13.6, Plt Count 213, MPV 9.0, Neut % (Auto) 61.0, Lymph % (Auto) 31.3, [place] % (Auto) 7.1, Eos % (Auto) 0.4, Baso % (Auto) 0.2, Neut # (Auto) 2.7, Lymph # (Auto) 1.4, [place] # (Auto) 0.3, Eos # (Auto) 0.0, Baso # (Auto) 0.0, ESR 26 08/08/20 21:09: Sodium 134 L, Potassium 3.5, Chloride 101, Carbon Dioxide 22, Anion Gap 14.5, BUN 10, Creatinine 0.90, Estimated Creat Clear 65, Estimated GFR 62, Est GFR ( Amer) 75, Glucose 105 H, Calcium 9.0, Total Bilirubin 0.9, AST 41 H, ALT 16, Alkaline Phosphatase 74, C-Reactive Protein 62.1 H, Total Protein 7.6, Albumin 3.9, Globulin 3.7 H, Albumin/Globulin Ratio 1.1 08/08/20 21:09: Lactate 1.0 08/08/20 22:09: Urine Color Dk yellow, Urine Appearance Cloudy, Urine pH 5.5, Ur Specific [place] >= 1.030, Urine Protein 1+, Urine Glucose (UA) Negative, Urine Ketones Trace, Urine Blood Trace-i, Urine Nitrate Negative, Urine Bilirubin Negative, Urine Urobilinogen 0.2, Ur Leukocyte Esterase Negative, Urine RBC 3-5, Urine WBC 3-5, Ur Squamous Epith Cells 50-100, Urine Mucus 1+ 08/09/20 00:36: Stl Aeromonas (PCR) Not detected, Stl C. cayetanensis PCR Not detected, Stool Rotavirus (PCR) Not detected, Stl Adenov F 40/41 PCR Not detected, Stool Astrovirus (PCR) Not detected, Stool Campylobacter PCR Not detected, Stl C.difficile Tox PCR Not detected, Stool Cryptosporidium PCR Not detected, Stl E.coli Shiga Tox PCR Not detected, Stool E coli O157 P
[2020-08-09] VITALS: BP 99/48; PULSE 70; RESP 15; O2SAT 93
[2020-08-09 00:30] VITALS: BP 104/73; PULSE 78; RESP 15; O2SAT 92
[2020-08-09 00:45] LABS: Adenovirus F 40/41, stool Not Detected (NotDetected); Astrovirus Not Detected (NotDetected); Campylobacter Not Detected (NotDetected); Clostridium Difficile A/B, PCR Not Detected (NotDetected); Cryptosporidium Not Detected (NotDetected); Cyclospora Cayetanesis Not Detected (NotDetected); Entamoeba histolytica Not Detected (NotDetected); Enteroaggregative E coli Not Detected (NotDetected); Enteropathogenic E coli Not Detected (NotDetected); Enterotoxigenic E coli Not Detected (NotDetected); Giardia lamblia Not Detected (NotDetected); Norovirus Not Detected (NotDetected); Plesimonas Shigalloides, PCR Not Detected (NotDetected); Rotavirus A Not Detected (NotDetected); Salmonella, PCR Not Detected (NotDetected); Sapovirus Not Detected (NotDetected); Shiga-like toxin E coli Not Detected (NotDetected); Shigella Enterovasive E coli Not Detected (NotDetected); Vibrio Cholerae Not Detected (NotDetected); Vibrio, PCR Not Detected (NotDetected); Yersinia Entercolitica, PCR Not Detected (NotDetected)
[2020-08-09 01:00] VITALS: BP 116/94; PULSE 66; RESP 16; O2SAT 94
[2020-08-09 02:51] VITALS: BP 109/75; PULSE 66; RESP 18; O2SAT 95
[2020-08-09 03:33] VITALS: BP 109/75; PULSE 66; RESP 24; TEMP 36.9; O2SAT 95
== END 2020-08-09 03:38 | disposition home or self-care (01) ==
PROVIDERS: Emergency Provider Emergency Medicine; PCP Nurse Practitioner Family
DX: K52.9 Noninfective gastroenteritis and colitis, unspecified (principal); U07.1 COVID-19; J18.9 Pneumonia, unspecified organism; I48.20 Chronic atrial fibrillation, unspecified; I25.2 Old myocardial infarction; E78.5 Hyperlipidemia, unspecified; I10 Essential (primary) hypertension; Z79.899 Other long term (current) drug therapy; Z88.0 Allergy status to penicillin; Z88.6 Allergy status to analgesic agent; Z88.8 Allergy status to other drugs, medicaments and biological substances
CPT/HCPCS: 71045; 80053; 81001; 83605; 85025; 85651; 86140; 87040; 87506; 96365; 96375; 99284; J2405

== ENCOUNTER 2020-08-11 15:27 | Inpatient (IN) | payer MEDICARE, MEDICAID, SELFPAY ==
[2020-08-11] VITALS (10 sets, daily range): BP systolic 109–127; BP diastolic 72–79; PULSE 58–81; RESP 18–22; TEMP 36.4–37.3; O2SAT 83–100; BMI 34.3; BMI 28.8
--- NOTE | 2020-08-11 15:35 | HMH.EDGENADL ---
ED Disposition Clinical Impression: COVID-19 Respiratory failure with hypoxia Qualifiers: Chronicity: acute Qualified Code(s): J96.01 - Acute respiratory failure with hypoxia Disposition: Admitted As Inpatient Condition on Discharge: Good Referrals: PCP,No [Non-Staff] - - Critical Care Critical Care Time: No Attestation: On , the high probability of a clinically significant, sudden or life threatening deterioration of the following system(s) required my full and direct attention, intervention and personal management. The time I documented below is in addition to time spent performing reported procedures but includes the following listed in this critical care notation. Medical Decision Making - Medical Records Medical records reviewed: Yes: I reviewed the patient's medical records. MR Comment: 69-year-old female presents the emergency department stating that she has been feeling weak, has not been able to eat over the last 4 to 5 days, has a recent diagnosis of COVID + status. She arrives the ED hemodynamically stable but is 83 to 84% on room air, does not normally have an oxygen requirement. She is 93 to 94% on 3 L and appears more comfortable. She states that she aches all over, but denies any chest pain other worrisome complaint at this time. Will get labs including lactate, chest x-ray, EKG, treat with Decadron and a bolus of fluids given that she is dehydrated and reassess. Reassessment, patient remained stable on 3 L supplemental oxygen. Labs at this time are nonactionable. Chest x-ray personally reviewed and shows patchy bilateral infiltrates. Started an oral Z-Fredo, maintenance fluids, and she will be admitted for further treatment. - Donald Inquiry Pt receiving controlled substance: No Vital Signs: 08/11/20 15:27 08/11/20 16:15 Temperature 99.1 F Temperature Source Oral Pulse Rate [Left Radial] 81 72 Respiratory Rate 19 Blood Pressure [Right Arm] 109/75 L 119/72 Blood Pressure Mean [Right Arm] 86 87 Blood Pressure Source [Right Arm] Automatic Cuff Automatic Cuff Blood Pressure Position [Right Arm] Sitting Sitting 02 Sat by Pulse Oximetry 83 L 93 L Oxygen Delivery Method Room Air Room Air - Lab Data Lab Results 08/11/20 15:40: WBC 5.3, RBC 4.49, Hgb 14.3, Hct 40.2, MCV 89.5, MCH 31.9 H, MCHC 35.7 H, RDW 14.0, Plt Count 304 D, MPV 8.5, Neut % (Auto) 72.1, Lymph % (Auto) 22.3, [place] % (Auto) 4.6, Eos % (Auto) 0.4, Baso % (Auto) 0.5, Neut # (Auto) 3.8, Lymph # (Auto) 1.2, [place] # (Auto) 0.3, Eos # (Auto) 0.0, Baso # (Auto) 0.0 08/11/20 15:40: Sodium 137, Potassium 3.4 L, Chloride 97 L, Carbon Dioxide 29 D, Anion Gap 14.4, BUN 10, Creatinine 0.80, Estimated Creat Clear 77, Estimated GFR 71, Est GFR ( Amer) 86, Glucose 108 H, Calcium 9.3, Total Bilirubin 0.8, AST 32, ALT 13, Alkaline Phosphatase 89, Total Protein 7.0, Albumin 3.6, Globulin 3.4 H, Albumin/Globulin Ratio 1.1 08/11/20 15:40: Lactate 1.3 08/11/20 15:40: Troponin I < 0.01 Result diagrams: 08/11/20 15:40 08/11/20 15:40 Orders (Tests/Meds): ED MEDICATIONS Generic Name Dose Route Start Last Admin Trade Name Freq PRN Reason Stop Dose Admin Dexamethasone Sodium Phosphate 8 mg 08/11/20 16:45 Decadron 4mg/Ml 5ml Mdv IV 09/10/20 16:44 Q12H CORDELIA Sodium Chloride 1,000 mls @ 999 mls/hr 08/11/20 16:00 08/11/20 16:22 Sod Chlor 0.9% 1000ml Bag IV 08/11/20 17:00 999 mls/hr .Q1H1M CORDELIA Administration Sodium Chloride 1,000 mls @ 75 mls/hr 08/11/20 16:45 Sod Chlor 0.9% 1000ml Bag IV 09/10/20 16:44 .[id number] CORDELIA Discontinued Medications Generic Name Dose Route Start Last Admin Trade Name Freq PRN Reason Stop Dose Admin Azithromycin 500 mg 08/11/20 16:38 Zithromax 250mg Tablet PO 08/11/20 16:39 ONCE ONE Protocol Dexamethasone Sodium Phosphate 10 mg 08/11/20 15:48 08/11/20 16:22 Decadron 4mg/Ml 1ml Vial IV 08/11/20 15:49 10 mg ONCE ONE Administration ORDERS Categ
--- NOTE | 2020-08-11 15:45 | XR_ITS ---
PROCEDURE: XR CHEST PORTABLE CLINICAL HISTORY: cough, SOA Cough, shortness of air, positive [place] virus COMPARISON: CT CT CHEST W CON from 12/10/2019 CR XR CHEST 2V from 02/05/2020 CR XR CHEST PORTABLE from 08/05/2020 CR XR CHEST PORTABLE from 08/08/2020 FINDINGS: Prior CABG. Coronary artery stent is present. Chronic changes are present with increased density in the right upper and right lower lobe and left lower lobe consistent with bilateral pneumonia which is worse. There are degenerative changes of the shoulders. No acute bony abnormalities. IMPRESSION: Worsening bilateral pneumonia Dictated by: Zhao Paul MD 08/11/2020 16:20 Zhao Paul MD in [facility] 08/11/2020 16:20
[2020-08-11 15:58] LABS: Basophils % 0.5 % (0.1-2.0); Eosinophils % 0.4 % (0.1-12.0); Hematocrit 40.2 % (37.0-47.0); Hemoglobin 14.3 g/dL (12.2-16.2); Lymphocytes # 1.2 K/mm3 (0.7-4.5); Lymphocytes % 22.3 % (10-50); Mean Corpuscular HGB Conc 35.7 g/dL (31.8-35.4); Mean Corpuscular Hemoglobin 31.9 pg (27.0-31.2); Mean Corpuscular Volume 89.5 fl (81-99); Mean Platelet Volume 8.5 fl (7.4-10.4); Monocytes # 0.3 K/mm3 (0.1-1.0); Monocytes % 4.6 % (1.7-9.3); Neutrophils # 3.8 K/mm3 (1.8-7.8); Neutrophils % 72.1 % (37.0-80.0); Platelet Count 304 K/mm3 (142-424); Red Blood Count 4.49 M/mm3 (4.20-5.40); White Blood Count 5.3 K/mm3 (4.8-10.8)
[2020-08-11 16:03] LABS: Alanine Aminotransferase 13 U/L (12-78); Albumin Level 3.6 g/dl (3.5-5.0); Albumin/Globulin Ratio 1.1 (1.1-1.8); Alkaline Phosphatase 89 U/L (38-126); Anion Gap 14.4 mEq/L (5-15); Aspartate Amino Transferase 32 U/L (14-36); Bilirubin,Total 0.8 mg/dl (0.2-1.3); Blood Urea Nitrogen 10 mg/dl (7-17); Calcium 9.3 mg/dl (8.4-10.2); Carbon Dioxide 29 mmol/L (22.0-30.0); Chloride 97 mmol/L (98-107); Creatinine Clearance Estimated 77 mL/min (50-200); Estimated Glomerular Filt Rate 71 ml/min (>60); GFR (African American) 86 ML/MIN (>60); Globulin 3.4 g/dL (1.3-3.2); Glucose 108 mg/dl (74-100); Potassium 3.4 mmoL/L (3.5-5.1); Sodium 137 mmol/L (136-145)
[2020-08-11 16:08] LABS: Lactic Acid 1.3 mmol/L (0.7-2.1)
--- NOTE | 2020-08-11 16:20 | PC.NURSE ---
Spoke with pt's daughter Yin Hartman, made her aware of the visitor policy and she understood. She is sitting in the car and would like to have updates as they become available. [phone]
--- NOTE | 2020-08-11 16:22 | PC.NURSE ---
Dr Sasha leija. He is with another pt at this time and will return call.
--- NOTE | 2020-08-11 16:35 | PC.NURSE ---
Dr Blackburn speaking with Dr Baez at this time.
[2020-08-11 16:38] LABS: Troponin I < 0.01 ng/ml (0.00-0.034)
--- NOTE | 2020-08-11 16:56 | PC.NURSE ---
Pt to be admitted to 263 per Entry Level Mechanical Engineer.
[2020-08-11 16:57] LABS: C-Reactive Protein 120.3 mg/L (0-4)
--- NOTE | 2020-08-11 17:06 | PC.NURSE ---
Dr Blackburn speaking with pt's daughter at this time.
--- NOTE | 2020-08-11 17:15 | PC.NURSE ---
contacted the covid unit to attempt give report on pt, spoke with Rose Davis,RN stated staff is in with another critical pt at this time, unable to take report at this time. tile layer supervisor is aware of situation with critical pt and delay in report. Will continue to monitor pt in ER until staff is able to take report.
[2020-08-11 17:30] LABS: Ferritin 411 ng/ml (11.1-264)
--- NOTE | 2020-08-11 17:50 | PC.NURSE ---
pt resting comfortably in bed at this time, will continue to monitor
--- NOTE | 2020-08-11 18:33 | PC.NURSE ---
report called to kaylee thomson rn will transport pt to [facility] unit
--- NOTE | 2020-08-11 19:21 | PC.NURSE ---
Pt to floor at approx 1900. Report given to S Yolanda, RN. Did page Dr. Nguyễn, mason apprentice to make aware of consult. Haven't spoke with him at this time. VSS when arriving to floor.
[2020-08-12] VITALS (7 sets, daily range): BP systolic 104–148; BP diastolic 74–89; PULSE 40–63; RESP 18–22; TEMP 36.4–37.1; O2SAT 90–96; BMI 28.8
--- NOTE | 2020-08-12 01:21 | PC.NURSE ---
She is A&Ox4. She has some home meds that are in a biohazard bag in her room. Not all of her home meds are in that bag. She was incontinent of urine. Mary-care provided per staff. Is currently wearing a depends. She continues in contact and airborne precautions. She denies pain other than restless legs. MD customer retention specialist was paged and she received a 2mg dose of requip which is a home medication. She reports a non-productive cough. Denies weakness and nausea. She had one BM that was diarrhea this shift.
--- NOTE | 2020-08-12 04:19 | PC.NURSE ---
She continues to be incontinent of bowel. Non-productive cough noted. Continues on 4LPM n/c.
[2020-08-12 07:14] LABS: ABG Base Excess -1.2 mmol/L (-2.4-2.3); ABG HCO3 23.4 mmhg (22.0-26.0); ABG Oxygen Saturation 89 % (90-100); ABG PH 7.42 mmol/L (7.35-7.45); ABG PO2 56.7 mmhg (80-100); ABG TCO2 24.5 mmhg (23-27)
[2020-08-12 07:18] LABS: Allen's Test ACCEPTABLE; Oxygen 4LPM %; Source L RADIAL
--- NOTE | 2020-08-12 07:20 | HMH.HP ---
*Admission Date: 08/11/20 *Chief complaint: Cough/shortness of air *History of present illness: MR Comment: 69-year-old female presents the emergency department stating that she has been feeling weak, has not been able to eat over the last 4 to 5 days, has a recent diagnosis of COVID + status. She arrives the ED hemodynamically stable but is 83 to 84% on room air, does not normally have an oxygen requirement. She is 93 to 94% on 3 L and appears more comfortable. She states that she aches all over, but denies any chest pain other worrisome complaint at this time. Will get labs including lactate, chest x-ray, EKG, treat with Decadron and a bolus of fluids given that she is dehydrated and reassess. Reassessment, patient remained stable on 3 L supplemental oxygen. Labs at this time are nonactionable. Chest x-ray personally reviewed and shows patchy bilateral infiltrates. Started an oral Z-Fredo, maintenance fluids, and she will be admitted for further treatment. History as above per emergency department. Patient was seen in our office about 10 days ago, diagnosed with the coronavirus 19 pneumonitis as noted above but did have lobar infiltrates and was given azithromycin and Omnicef p.o. She initially improved but then began to have increasing dyspnea, increasing oxygen requirement and admitted through the ER as noted above. [facility] History I have reviewed the patient's past medical history: Yes Medical History: Reports:: Arrhythmia, Atrial Fibrillation, Cancer (Sarcoma), Congestive Heart Failure, Chronic Obstructive Pulmonary Disease (COPD), Coronary Artery Disease, Hyperlipidemia, Hypertension, Myocardial Infarction Denies:: Diabetes Mellitus Type 1, Diabetes Mellitus Type 2, Internal Pacemaker, MRSA, Seizures *Have you ever received a pneumonia vaccine?: No *Have you received a flu vaccine this season?: No Other Medical History: Reports: Chemotherapy. Denies: Blood Transfusion Reaction Other Surgeries: Yes: CABG, Cardiac Catheterization, Colonoscopy, Colon Resection, Coronary Stent, Hysterectomy-Total, Hysterectomy-Partial, Open Heart Surgery, Other (cardioversionX2). No: Pacemaker Amputation: No Fractures: No - *Social History Last grade of school completed: 11th or 12th Smoking Status: Never smoker Tobacco Type: cigarettes #Yrs smoked (if former smoker): 45 Alcohol Intake: never Substance Use Type: denies use *Occupational Status:: retired Housing: house Household Members: spouse *Travel in the last 8 weeks: None Family Hx:: Other Review of Systems - Review of Systems Review of systems:: pertinent systems reviewed and negative unless documented below Meds Home Medications Medication Instructions Recorded Confirmed Type apixaban 5 mg tablet 5 mg PO BID 12/19/18 08/11/20 History fluticasone fur. 100 mcg-umeclid 1 inh INHALATION DAILY 12/19/18 08/11/20 History 62.5 mcg-vilant 25 mcg inhalat.powder ropinirole 1 mg tablet 2 mg PO HS tab 12/19/18 08/11/20 History temazepam 15 mg capsule 15 mg PO HSP PRN cap 12/19/18 08/11/20 History famotidine 20 mg tablet 20 mg PO DAILY 05/16/19 08/11/20 History Clopidogrel Bisulfate [Plavix 75mg 75 mg PO DAILY 06/23/19 08/11/20 History Tab] atorvastatin 40 mg tablet 80 mg PO DAILY tab 02/12/20 08/11/20 History evolocumab 140 mg/mL subcutaneous 140 mg SQ Q2W 02/12/20 08/11/20 History pen injector ergocalciferol (vitamin D2) 1,250 1,250 mcg PO QWEEK cap 04/22/20 08/11/20 History mcg (50,000 unit) capsule escitalopram oxalate 20 mg tablet 20 mg PO DAILY tab 04/22/20 08/11/20 History aspirin 81 mg tablet,delayed 81 mg PO DAILY 05/13/20 08/11/20 History release Furosemide [Furosemide 40MG tAB] 40 mg PO DAILY 07/16/20 08/11/20 History Spironolactone [Spironolactone 25 mg PO DAILY 07/16/20 08/11/20 History 25mg Tablet] bisoproloL fumarate [Bisoprolol 5 mg PO DAILY 07/16/20 08/11/20 History Fumarate] L.acidoph,Paracasei, B.lactis 1 each PO DAILY 08/11/20 08/11/20 His
[2020-08-12 07:25] LABS: Anion Gap 11.9 mEq/L (5-15); Blood Urea Nitrogen 12 mg/dl (7-17); Calcium 8.7 mg/dl (8.4-10.2); Carbon Dioxide 30 mmol/L (22.0-30.0); Chloride 101 mmol/L (98-107); Creatinine Clearance Estimated 65 mL/min (50-200); Estimated Glomerular Filt Rate 83 ml/min (>60); GFR (African American) 101 ML/MIN (>60); Glucose 138 mg/dl (74-100); Potassium 3.9 mmoL/L (3.5-5.1); Sodium 139 mmol/L (136-145)
[2020-08-12 07:27] LABS: INR 1.06 (0.9-1.1); Prothrombin Time 10.9 seconds (9.4-11.8)
[2020-08-12 07:30] LABS: Basophils % 0.6 % (0.1-2.0); C-Reactive Protein 98.1 mg/L (0-4); Eosinophils % 0.2 % (0.1-12.0); Lymphocytes # 0.4 K/mm3 (0.7-4.5); Lymphocytes % 15.8 % (10-50); Mean Corpuscular HGB Conc 34.2 g/dL (31.8-35.4); Mean Corpuscular Hemoglobin 31.5 pg (27.0-31.2); Mean Corpuscular Volume 92.2 fl (81-99); Mean Platelet Volume 8.6 fl (7.4-10.4); Monocytes # 0.1 K/mm3 (0.1-1.0); Neutrophils # 2.1 K/mm3 (1.8-7.8); Neutrophils % 79.5 % (37.0-80.0); Platelet Count 284 K/mm3 (142-424); Red Blood Count 4.12 M/mm3 (4.20-5.40); Red Cell Distribution Width 13.7 % (11.5-17.5); White Blood Count 2.6 K/mm3 (4.8-10.8)
--- NOTE | 2020-08-12 08:19 | PC.NURSE ---
did relay to pulmonology that patient had consult. spoke with nelson in office
--- NOTE | 2020-08-12 09:56 | P.CONPHA_ITS ---
[facility] Pharmacy VTE Monitoring - Patient Demographics Admission date: 08/11/20 Report Date: 08/12/20 Time: 09:56 Allergies/Adverse Reactions: Patient Allergies codeine Allergy (Mild, Verified 07/16/20 11:25) diphenhydramine [From Benadryl] Allergy (Mild, Verified 07/16/20 11:25) Penicillins Allergy (Mild, Verified 08/11/20 22:03) isosorbide Adverse Reaction (Intermediate, Verified 07/16/20 11:25) Severe CH[place]Y diazepam [From Valium] Adverse Reaction (Mild, Verified 07/16/20 11:25) Agitated Height: 1.63 m Weight: 76.204 kg Patient Problems: Current Active Problems COVID-19 (Acute) Respiratory failure with hypoxia (Acute) Lobar pneumonia (Acute) - VTE Risk Labs: VTE Related Lab Results Hgb 13.0 g/dL (12.2-16.2) 08/12/20 05:20 Hct 38.0 % (37.0-47.0) 08/12/20 05:20 Plt Count 284 K/mm3 (142-424) 08/12/20 05:20 PT 10.9 seconds (9.4-11.8) 08/12/20 05:20 INR 1.06 (0.9-1.1) 08/12/20 05:20 BUN 12 mg/dl (7-17) 08/12/20 05:20 Creatinine 0.70 mg/dl (0.52-1.04) 08/12/20 05:20 Estimated Creat Clear 65 mL/min (50-200) 08/12/20 05:20 - Prophylaxis VTE Prophylaxis Ordered?: Yes Types of VTE Prophylaxis: Pharmacological Pharmacologic Type: Other (ELIQUIS)
--- NOTE | 2020-08-12 10:43 | HMH.PULMCON ---
*Admission Date: 08/11/20 *Reason for consult:: Acute hypoxic respiratory failure. *History of present illness: Ms. Andres is a 69-year-old female more than [id number] smoking history last smoked 6 months ago on Trelegy inhaler at home, not on any home oxygen, CAD status post bypass surgery was presented to the ER with worsening respiratory failure. On further cording patient states that she was diagnosed with COVID-19 infection by nasal MRSA PCR 03 September during which she was discharged home with azithromycin antibiotics. However her clinical status gradually declined and presented to the ED during which her O2 sats were at 8485% and she was eventually admitted to the hospital for further management and pulmonary was consulted. During the last 1 week other than worsening shortness of breath patient denies any fevers, muscle aches, denies any productive cough. [facility] History Medical History: Reports:: Arrhythmia, Atrial Fibrillation, Cancer (Sarcoma), Congestive Heart Failure, Chronic Obstructive Pulmonary Disease (COPD), Coronary Artery Disease, Hyperlipidemia, Hypertension, Myocardial Infarction Denies:: Diabetes Mellitus Type 1, Diabetes Mellitus Type 2, Internal Pacemaker, MRSA, Seizures *Have you ever received a pneumonia vaccine?: No *Have you received a flu vaccine this season?: No Other Medical History: Reports: Chemotherapy. Denies: Blood Transfusion Reaction Other Surgeries: Yes: CABG, Cardiac Catheterization, Colonoscopy, Colon Resection, Coronary Stent, Hysterectomy-Total, Hysterectomy-Partial, Open Heart Surgery, Other (cardioversionX2). No: Pacemaker Amputation: No Fractures: No - *Social History Last grade of school completed: 11th or 12th Smoking Status: Never smoker Tobacco Type: cigarettes #Yrs smoked (if former smoker): 45 Alcohol Intake: never Substance Use Type: denies use *Occupational Status:: retired Housing: house Household Members: spouse *Travel in the last 8 weeks: None Family Hx:: Other [facility] Pulmonology ROS - Eyes Denies blind spots, Denies blurry vision - ENT Denies abnormal hearing, Denies bleeding gums - *Cardiovascular Denies chest pain, Denies chest pain at rest, Denies chest pain with activity - *Respiratory Respiratory: Yes shortness of breath, Yes chest congestion, Yes non-productive cough, Yes dyspnea, Yes dyspnea on exertion - *Gastrointestinal Gastrointestingal: Reports: system reviewed and no additional complaints, except as docu - *Musculoskeletal Musculoskeletal: Reports system reviewed and no additional complaints, except as docu - Endocrine Denies cold intolerance, Denies excessive sweating - Hematologic/Lymphatic Denies easy bleeding Meds Home Medications Medication Instructions Recorded Confirmed Type apixaban 5 mg tablet 5 mg PO BID 12/19/18 08/11/20 History fluticasone fur. 100 mcg-umeclid 1 inh INHALATION DAILY 12/19/18 08/11/20 History 62.5 mcg-vilant 25 mcg inhalat.powder ropinirole 1 mg tablet 2 mg PO HS tab 12/19/18 08/11/20 History temazepam 15 mg capsule 15 mg PO HSP PRN cap 12/19/18 08/11/20 History famotidine 20 mg tablet 20 mg PO DAILY 05/16/19 08/11/20 History Clopidogrel Bisulfate [Plavix 75mg 75 mg PO DAILY 06/23/19 08/11/20 History Tab] atorvastatin 40 mg tablet 80 mg PO DAILY tab 02/12/20 08/11/20 History evolocumab 140 mg/mL subcutaneous 140 mg SQ Q2W 02/12/20 08/11/20 History pen injector ergocalciferol (vitamin D2) 1,250 1,250 mcg PO QWEEK cap 04/22/20 08/11/20 History mcg (50,000 unit) capsule escitalopram oxalate 20 mg tablet 20 mg PO DAILY tab 04/22/20 08/11/20 History aspirin 81 mg tablet,delayed 81 mg PO DAILY 05/13/20 08/11/20 History release Furosemide [Furosemide 40MG tAB] 40 mg PO DAILY 07/16/20 08/11/20 History Spironolactone [Spironolactone 25 mg PO DAILY 07/16/20 08/11/20 History 25mg Tablet] bisoproloL fumarate [Bisoprolol 5 mg PO DAILY 07/16/20 08/11/20 History Fumarate] Gary William B.l
--- NOTE | 2020-08-12 12:11 | HMH.PHAINT ---
MEDICATION RECONCILIATION COMPLETED ON PATIENT USING EXTERNAL FILL HISTORY FROM PHARMACY AND LIST FROM MD OFFICE. -GALDINO LEALD
--- NOTE | 2020-08-12 16:28 | PC.NURSE ---
Addendum entered by Shahid Landers RN 08/12/20 16:46: PT CURRENTLY ON 5LNC Original Note: PT HAS BEEN AO*4 T/O SHIFT, PT CURRENTLY ON 4L NC O2 SAT 93%, LUNGS SOUNDS DIMINISHED BUT CLEAR, PT AFEBRILE T/O SHIFT, UP TO BSC *2, DIARRHEA NOTED *1, PT HAS HAD LITTLE APPETITE, PO INTAKE OF FLUIDS ENCOURAGED BUT STILL INADEQUATE, PT HAS RESTED MOST OF DAY STATING THAT SHE DID NOT SLEEP WELL LAST NIGHT. NO NEEDS AT THIS TIME. WILL CONTINUE TO MONITOR.
--- NOTE | 2020-08-12 21:40 | PC.NURSE ---
in the amount of time that it takes patient to get to bedside commode, reapply brief and get back to bed patient desats to 67% on 5 l nc. patient return to mid 80s on 5 l nc within 5 min but it takes approximately 30 minutes to recover back up into the 90s. discussed with patient the need to decrease activity level. next plan will be to leave the brief off when getting up to bedside commode. nurse will also place venturi mask and non rebreather at bedside.
[2020-08-13] VITALS (11 sets, daily range): BP systolic 101–141; BP diastolic 64–81; PULSE 46–78; RESP 18–26; TEMP 36.2–37; O2SAT 91–98; BMI 29.7
--- NOTE | 2020-08-13 01:51 | PC.NURSE ---
0000 patient began coughing and complaining of nausea. dr. cheyenne leija. with coughing and gagging episode patient o2 sats drop to 87% on 5 l nc. when patient coughs she has an episode of diarrhea, and desats back to 86-87 on 5 lnc with any activity. 0115 have made numerous attempts to contact physician, warehouse distribution specialist notified of current condition of patient. one time dose of zofran ordered. patient continues to desat and taking longer amount of time to recover to 89%. 0130 unable to achieve sats of 88% switched to venturi mask at 50% dr. cheyenne leija. 0145 continue to be able to get o2 sats greater than 87%, switched to non rebreather. have been unable to reach provider relations advocate physician. 0200 o2 sats now 95% on non rebreather.
--- NOTE | 2020-08-13 05:14 | PC.NURSE ---
patient has had rough shift. breath sounds have remained diminished throughout, has become more difficult to main sats greater than 90% without use of non rebreather. since non rebreather placed o2 sats have remained 93-96%. respiratory rate has remain below 20. cough has become more persistent but remains non productive. patient continues to gag when coughing.
[2020-08-13 06:01] LABS: Basophils % 0.3 % (0.1-2.0); Eosinophils % 0.1 % (0.1-12.0); Hemoglobin 13.7 g/dL (12.2-16.2); Lymphocytes % 10.9 % (10-50); Mean Corpuscular Hemoglobin 32.8 pg (27.0-31.2); Mean Corpuscular Volume 91.1 fl (81-99); Mean Platelet Volume 8.1 fl (7.4-10.4); Monocytes # 0.4 K/mm3 (0.1-1.0); Monocytes % 4.7 % (1.7-9.3); Neutrophils # 7.3 K/mm3 (1.8-7.8); Neutrophils % 83.9 % (37.0-80.0); Platelet Count 381 K/mm3 (142-424); Red Blood Count 4.17 M/mm3 (4.20-5.40); Red Cell Distribution Width 13.6 % (11.5-17.5); White Blood Count 8.7 K/mm3 (4.8-10.8)
[2020-08-13 06:03] LABS: Chloride 106 mmol/L (98-107); Sodium 142 mmol/L (136-145)
[2020-08-13 06:04] LABS: Potassium 3.6 mmoL/L (3.5-5.1)
[2020-08-13 06:06] LABS: Alanine Aminotransferase 16 U/L (12-78); Albumin Level 3.2 g/dl (3.5-5.0); Alkaline Phosphatase 66 U/L (38-126); Aspartate Amino Transferase 33 U/L (14-36); Bilirubin,Total 0.7 mg/dl (0.2-1.3); Blood Urea Nitrogen 16 mg/dl (7-17); Creatinine Clearance Estimated 67 mL/min (50-200); Estimated Glomerular Filt Rate 83 ml/min (>60); GFR (African American) 101 ML/MIN (>60); Globulin 3.1 g/dL (1.3-3.2); Total Protein,Serum 6.3 g/dl (6.3-8.2)
[2020-08-13 06:07] LABS: Anion Gap 10.6 mEq/L (5-15); Calcium 9.1 mg/dl (8.4-10.2); Carbon Dioxide 29 mmol/L (22.0-30.0); Glucose 112 mg/dl (74-100)
[2020-08-13 06:12] LABS: C-Reactive Protein 50.2 mg/L (0-4)
--- NOTE | 2020-08-13 08:06 | HMH.ACPN2 ---
Internal Medicine - PN: Subj *Date: 08/13/20 *Time: 13:56 Interval history: 69-year-old with COVID-19 positive pneumonia. Worsening respiratory distress overnight. Transition to high flow nasal cannula this morning. Pulmonology assisting in care, appreciate their recommendations. Patient with poor p.o. intake, encouraging boost/protein supplement shakes. Remains afebrile, very fatigued. Reports feeling short of breath. Denies nausea or vomiting. Exam Vital signs and Labs for Last 24 Hours: Temp Pulse Resp BP Pulse Ox 97.8 F 52 L 20 135/80 98 08/13/20 00:00 08/13/20 04:00 08/13/20 02:27 08/13/20 02:27 08/13/20 02:27 Laboratory Results - last 24 hr 08/13/20 05:20: WBC 8.7 D, RBC 4.17 L, Hgb 13.7, Hct 38.0, MCV 91.1, MCH 32.8 H, MCHC 36.0 H, RDW 13.6, Plt Count 381 D, MPV 8.1, Neut % (Auto) 83.9 H, Lymph % (Auto) 10.9, [place] % (Auto) 4.7, Eos % (Auto) 0.1, Baso % (Auto) 0.3, Neut # (Auto) 7.3, Lymph # (Auto) 1.0, [place] # (Auto) 0.4, Eos # (Auto) 0.0, Baso # (Auto) 0.0 08/13/20 05:20: Sodium 142, Potassium 3.6, Chloride 106, Carbon Dioxide 29, Anion Gap 10.6, BUN 16 D, Creatinine 0.70, Estimated Creat Clear 67, Estimated GFR 83, Est GFR ( Amer) 101, Glucose 112 H, Calcium 9.1, Total Bilirubin 0.7, AST 33, ALT 16, Alkaline Phosphatase 66, C-Reactive Protein 50.2 H D, Total Protein 6.3, Albumin 3.2 L, Globulin 3.1, Albumin/Globulin Ratio 1.0 L I & O for Last 24 hours: Intake & Output 08/10/20 08/11/20 08/12/20 08/13/20 23:59 23:59 23:59 23:59 Intake Total 1184 / 2385 1201 / 1201 Output Total 880 / 883 3 / 3 Balance 304 / 1502 1198 / 1198 Weight 76.204 kg 76.204 kg 79 kg - Constitutional moderate distress - *Routine HEENT Exam Head: Present: normocephalic Eye: Present: EOMI, PERRL ENT: Present: mucous membranes moist - *Routine Neck Exam Present: supple. Absent: lymphadenopathy - *Routine Respiratory Exam Present: accessory muscle use, CTA bilaterally. Absent: wheezes - *Routine Cardiovascular Exam Present: RRR - *Routine Abdominal Exam Present: soft, normoactive bowel sounds. Absent: tenderness - *Routine Extremities Exam Absent: cyanosis, clubbing, edema - *Routine Skin Exam Present: warm. Absent: rash - *Routine Neurological Exam Present: alert, oriented X3 Assessment and Plan (1) COVID-19 Current visit: Yes Status: Acute Category: Medical Code(s): U07.1 - COVID-19 (2) Lobar pneumonia Current visit: Yes Status: Acute Category: Medical Code(s): J18.1 - Lobar pneumonia, unspecified organism (3) Respiratory failure with hypoxia Current visit: Yes Status: Acute Qualifiers: Chronicity: acute Qualified Code(s): J96.01 - Acute respiratory failure with hypoxia Category: Medical Code(s): J96.91 - Respiratory failure, unspecified with hypoxia (4) CAD (coronary artery disease) Current visit: No Status: Chronic Qualifiers: Category: Medical Code(s): I25.10 - Atherosclerotic heart disease of [place] coronary artery without angina pectoris (5) COPD (chronic obstructive pulmonary disease) Current visit: No Status: Chronic Qualifiers: Category: Medical Code(s): J44.9 - Chronic obstructive pulmonary disease, unspecified (6) HTN (hypertension) Current visit: No Status: Chronic Qualifiers: Category: Medical Code(s): I10 - Essential (primary) hypertension - Assessment and plan all Dx Assessment and Plan for all problems:: 69-year-old female with acute hypoxemic respiratory failure secondary to COVID-19 pna. Continue high flow nasal cannula with goal saturation greater than 92%. At this time we will continue Remdesivir, dexamethasone, vitamin supplementation, and anticoagulation. Pulmonology consulted, appreciate recommendations. Blood cultures are pending, continue broad-spectrum antibiotics in the meantime. Improvement in her inflammatory markers with decrease in CRP. Continue sup
--- NOTE | 2020-08-13 09:36 | PC.NURSE ---
RT Placed pt on Vapotherm at this time 30L,60%. Sats ranging from 88-94%
--- NOTE | 2020-08-13 10:02 | HMH.PULMPN ---
Internal Medicine - PN: Subj *Date: 08/13/20 *Time: 10:02 Interval history: Patient oxygen requirements escalated overnight needing nonrebreather. This morning patient is saturating 99% on 100% nonrebreather. Exam Vital signs and Labs for Last 24 Hours: Temp Pulse Resp BP Pulse Ox 97.8 F 52 L 20 135/80 92 L 08/13/20 00:00 08/13/20 08:00 08/13/20 02:27 08/13/20 02:27 08/13/20 09:35 Laboratory Results - last 24 hr 08/13/20 05:20: WBC 8.7 D, RBC 4.17 L, Hgb 13.7, Hct 38.0, MCV 91.1, MCH 32.8 H, MCHC 36.0 H, RDW 13.6, Plt Count 381 D, MPV 8.1, Neut % (Auto) 83.9 H, Lymph % (Auto) 10.9, [place] % (Auto) 4.7, Eos % (Auto) 0.1, Baso % (Auto) 0.3, Neut # (Auto) 7.3, Lymph # (Auto) 1.0, [place] # (Auto) 0.4, Eos # (Auto) 0.0, Baso # (Auto) 0.0 08/13/20 05:20: Sodium 142, Potassium 3.6, Chloride 106, Carbon Dioxide 29, Anion Gap 10.6, BUN 16 D, Creatinine 0.70, Estimated Creat Clear 67, Estimated GFR 83, Est GFR ( Amer) 101, Glucose 112 H, Calcium 9.1, Total Bilirubin 0.7, AST 33, ALT 16, Alkaline Phosphatase 66, C-Reactive Protein 50.2 H D, Total Protein 6.3, Albumin 3.2 L, Globulin 3.1, Albumin/Globulin Ratio 1.0 L I & O for Last 24 hours: Intake & Output 08/10/20 08/11/20 08/12/20 08/13/20 23:59 23:59 23:59 23:59 Intake Total 1184 / 2385 1201 / 1201 Output Total 880 / 883 3 / 3 Balance 304 / 1502 1198 / 1198 Weight 168 lb 168 lb 174 lb 2.643 oz - Constitutional mild distress - *Routine Respiratory Exam Present: rhonchi. Absent: accessory muscle use - *Routine Abdominal Exam Present: soft, normoactive bowel sounds. Absent: tenderness, distended, rebound - *Routine Extremities Exam Absent: cyanosis, clubbing, edema Assessment and Plan (1) Lobar pneumonia Current visit: Yes Status: Acute Category: Medical Code(s): J18.1 - Lobar pneumonia, unspecified organism (2) COVID-19 Current visit: Yes Status: Acute Category: Medical Code(s): U07.1 - COVID-19 (3) Respiratory failure with hypoxia Current visit: Yes Status: Acute Qualifiers: Chronicity: acute Qualified Code(s): J96.01 - Acute respiratory failure with hypoxia Category: Medical Code(s): J96.91 - Respiratory failure, unspecified with hypoxia (4) CAD (coronary artery disease) Current visit: No Status: Chronic Qualifiers: Category: Medical Code(s): I25.10 - Atherosclerotic heart disease of [place] coronary artery without angina pectoris (5) COPD (chronic obstructive pulmonary disease) Current visit: No Status: Chronic Qualifiers: Category: Medical Code(s): J44.9 - Chronic obstructive pulmonary disease, unspecified (6) HTN (hypertension) Current visit: No Status: Chronic Qualifiers: Category: Medical Code(s): I10 - Essential (primary) hypertension - Assessment and plan all Dx Assessment and Plan for all problems:: #COVID-19 pneumonia: #Acute hypoxic respiratory failure: 69-year-old female with history of COPD on triple inhaler therapy, CAD status post bypass, on anticoagulation and apixaban at home presented with worsening COVID-19 infection. Chest x-ray showed bilateral worsening pulmonary infiltrates compared to prior consistent with worsening hypoxic respiratory failure Blood cultures pending. Lymphopenia noted on CBC along with elevated ferritin and CRP. Plan: -Change oxygen supplementation to high flow nasal cannula, starting 100% at 40 L. Will wean FiO2 as tolerated with O2 sat goal of 92% and above while patient is awake. -Nutrition consult to maintain adequate calorie goal intake. If patient is unable to attain her calorie goal would consider tube feeding. -Continue Remdesavir and dexamethasone -Community-acquired pneumonia treatment with ceftriaxone and azithromycin -Consider obtaining viral PCR -Continue Trelegy inhaler along with Albuterol as needed Q6 hrs Thank you for involving pulmonary in this patient care. We will continue to follow.
[2020-08-13 10:38] LABS: Adenovirus F 40/41, stool Not Detected (NotDetected); Astrovirus Not Detected (NotDetected); Campylobacter Not Detected (NotDetected); Clostridium Difficile A/B, PCR Not Detected (NotDetected); Cryptosporidium Not Detected (NotDetected); Cyclospora Cayetanesis Not Detected (NotDetected); Entamoeba histolytica Not Detected (NotDetected); Enteroaggregative E coli Not Detected (NotDetected); Enteropathogenic E coli Not Detected (NotDetected); Enterotoxigenic E coli Not Detected (NotDetected); Giardia lamblia Not Detected (NotDetected); Norovirus Not Detected (NotDetected); Plesimonas Shigalloides, PCR Not Detected (NotDetected); Rotavirus A Not Detected (NotDetected); Salmonella, PCR Not Detected (NotDetected); Sapovirus Not Detected (NotDetected); Shiga-like toxin E coli Not Detected (NotDetected); Shigella Enterovasive E coli Not Detected (NotDetected); Vibrio Cholerae Not Detected (NotDetected); Vibrio, PCR Not Detected (NotDetected); Yersinia Entercolitica, PCR Not Detected (NotDetected)
--- NOTE | 2020-08-13 15:04 | PC.NURSE ---
RT attempted to get sputum sample, pt stated that she had coughed up stuff earlier in the day and would cough what she could in the cup. No sodium chloride neb ordered at this time.
--- NOTE | 2020-08-13 21:54 | PC.NURSE ---
2100 patient complaining of nausea at this time, dr. sheppard paged, new orders placed by physician.
--- NOTE | 2020-08-13 21:55 | PC.NURSE ---
2140 phenergan 12.5 mg ivpb given per order.
[2020-08-14] VITALS (10 sets, daily range): BP systolic 102–135; BP diastolic 66–83; PULSE 45–72; RESP 16–26; TEMP 36.2–37; O2SAT 91–97
--- NOTE | 2020-08-14 06:17 | PC.NURSE ---
patient has remained complaint free of nausea since receiving phenergan. rested with eyes closed. o2 sats have remained 90-92% on vapotherm 30 l and 60 % fio2. resp rate has been less than 20,patient appears unlabored at rest but continues to be soa with activity. breath sounds remain diminished throughout all sanders.
[2020-08-14 06:40] LABS: Basophils % 0.1 % (0.1-2.0); Eosinophils % 0.2 % (0.1-12.0); Hematocrit 33.5 % (37.0-47.0); Hemoglobin 11.6 g/dL (12.2-16.2); Lymphocytes # 0.8 K/mm3 (0.7-4.5); Lymphocytes % 11.1 % (10-50); Mean Corpuscular HGB Conc 34.7 g/dL (31.8-35.4); Mean Corpuscular Hemoglobin 32.1 pg (27.0-31.2); Mean Corpuscular Volume 92.5 fl (81-99); Mean Platelet Volume 7.9 fl (7.4-10.4); Monocytes # 0.4 K/mm3 (0.1-1.0); Monocytes % 6.5 % (1.7-9.3); Neutrophils # 5.6 K/mm3 (1.8-7.8); Platelet Count 342 K/mm3 (142-424); Red Blood Count 3.62 M/mm3 (4.20-5.40); Red Cell Distribution Width 13.7 % (11.5-17.5); White Blood Count 6.9 K/mm3 (4.8-10.8)
[2020-08-14 06:47] LABS: Chloride 108 mmol/L (98-107); Potassium 3.2 mmoL/L (3.5-5.1); Sodium 140 mmol/L (136-145)
[2020-08-14 06:49] LABS: Alanine Aminotransferase 11 U/L (12-78); Aspartate Amino Transferase 22 U/L (14-36); Blood Urea Nitrogen 15 mg/dl (7-17); Creatinine Clearance Estimated 67 mL/min (50-200); Estimated Glomerular Filt Rate 99 ml/min (>60); GFR (African American) 120 ML/MIN (>60)
[2020-08-14 06:50] LABS: Albumin Level 2.5 g/dl (3.5-5.0); Alkaline Phosphatase 55 U/L (38-126); Anion Gap 8.2 mEq/L (5-15); Bilirubin,Total 0.5 mg/dl (0.2-1.3); Carbon Dioxide 27 mmol/L (22.0-30.0); Globulin 2.6 g/dL (1.3-3.2); Glucose 90 mg/dl (74-100); Magnesium 1.7 mg/dl (1.6-2.3); Total Protein,Serum 5.1 g/dl (6.3-8.2)
--- NOTE | 2020-08-14 07:38 | HMH.ACPN2 ---
Internal Medicine - PN: Subj *Date: 08/14/20 *Time: 14:18 Interval history: Ms. Andres reports feeling fatigued this morning but somewhat better. She is stable on high flow nasal cannula with ability to wean to an FiO2 of 60%, flow of 30 L. Overall appears slightly better than yesterday, not in as much distress. Remains afebrile. Nausea improving, diarrhea improving with Imodium. Tolerating 25 to 50% of her trays. Denies chest pain, confusion, emesis. Exam Vital signs and Labs for Last 24 Hours: Temp Pulse Resp BP Pulse Ox 97.6 F 56 L 20 120/68 91 L 08/14/20 04:00 08/14/20 04:00 08/14/20 04:00 08/14/20 04:00 08/14/20 04:00 Laboratory Results - last 24 hr 08/13/20 08:00: Stl Aeromonas (PCR) Not detected, Stl C. cayetanensis PCR Not detected, Stool Rotavirus (PCR) Not detected, Stl Adenov F 40/41 PCR Not detected, Stool Astrovirus (PCR) Not detected, Stool Campylobacter PCR Not detected, Stl C.difficile Tox PCR Not detected, Stool Cryptosporidium PCR Not detected, Stl E.coli Shiga Tox PCR Not detected, Stool E coli O157 PCR Not detected, Stl Enterotoxigenic E PCR Not detected, Stool EPEC (PCR) Not detected, Stool EAEC (PCR) Not detected, Stl E. histolytica PCR Not detected, Stool Giardia Lamblia PCR Not detected, Stool Salmonella PCR Not detected, Stool Sapovirus (PCR) Not detected, Stl P. shigelloides PCR Not detected, Stl Shigella/EIEC PCR Not detected, St Y.enterocolitica PCR Not detected, Stool Vibrio (PCR) Not detected, Stl Vibrio cholerae PCR Not detected, Stl Norovirus GI/GII PCR Not detected 08/14/20 06:05: WBC 6.9, RBC 3.62 L, Hgb 11.6 L, Hct 33.5 L, MCV 92.5, MCH 32.1 H, MCHC 34.7, RDW 13.7, Plt Count 342, MPV 7.9, Neut % (Auto) 82.0 H, Lymph % (Auto) 11.1, [place] % (Auto) 6.5, Eos % (Auto) 0.2, Baso % (Auto) 0.1, Neut # (Auto) 5.6, Lymph # (Auto) 0.8, [place] # (Auto) 0.4, Eos # (Auto) 0.0, Baso # (Auto) 0.0 08/14/20 06:05: Sodium 140, Potassium 3.2 L, Chloride 108 H, Carbon Dioxide 27, Anion Gap 8.2, BUN 15, Creatinine 0.60, Estimated Creat Clear 67, Estimated GFR 99, Est GFR ( Amer) 120, Glucose 90, Calcium 8.0 L D, Magnesium 1.7, Total Bilirubin 0.5, AST 22 D, ALT 11 L D, Alkaline Phosphatase 55, Total Protein 5.1 L, Albumin 2.5 L D, Globulin 2.6, Albumin/Globulin Ratio 1.0 L I & O for Last 24 hours: Intake & Output 08/11/20 08/12/20 08/13/20 08/14/20 23:59 23:59 23:59 23:59 Intake Total 1184 / 2385 2414 / 2414 900 / 900 Output Total 880 / 883 3 / 3 400 / 400 Balance 304 / 1502 2411 / 2411 500 / 500 Weight 76.204 kg 76.204 kg 79 kg Microbiology Reports for the Last 24 Hours: Microbiology 08/11/20 15:40 Blood Blood Culture - Preliminary NO GROWTH AFTER 48 HOURS 08/11/20 15:40 Blood Blood Culture - Preliminary NO GROWTH AFTER 48 HOURS Narrative: - Constitutional interval improvement in distress, less labored on Vapotherm - *Routine HEENT Exam Head: Present: normocephalic Eye: Present: EOMI, PERRL ENT: Present: mucous membranes moist - *Routine Neck Exam Present: supple. Absent: lymphadenopathy - *Routine Respiratory Exam Present: accessory muscle use, CTA bilaterally. Absent: wheezes - *Routine Cardiovascular Exam Present: RRR - *Routine Abdominal Exam Present: soft, normoactive bowel sounds. Absent: tenderness - *Routine Extremities Exam Absent: cyanosis, clubbing, edema - *Routine Skin Exam Present: warm. Absent: rash - *Routine Neurological Exam Present: alert, oriented X3 Assessment and Plan (1) COVID-19 Current visit: Yes Status: Acute Category: Medical Code(s): U07.1 - COVID-19 (2) Lobar pneumonia Current visit: Yes Status: Acute Category: Medical Code(s): J18.1 - Lobar pneumonia, unspecified organism (3) Respiratory failure with hypoxia Current visit: Yes Status: Acute Qualifiers: Chronicity: acute Qualified Code(s): J96.01 - Acute respiratory failure
--- NOTE | 2020-08-14 14:45 | PC.NURSE ---
1400 - Vapotherm settings weaned to 30 L @ 50 %. Pt tolerating well w/ current sat 93 % at rest.
--- NOTE | 2020-08-14 18:12 | PC.NURSE ---
Pt remains on vapotherm tolerating settings well of FIO2 of 50% on 30 L. Sats have maintained > 90% w/ it currently 94% at rest. Lungs are diminished throughout upon auscultation Pt has had more of a productive cough this shift compared to yesterday. Duonebs have been added to JAN. Sputum was collected this shift and sent to lab. Does have coughing episodes in which she will desat to mid 80's and takes a few minutes to recover. Pt appear unlabored while resting in bed, but resp rate does increase up to 30 times a min w/ activity. Incentive spirometer available at bedside, this nurse educated pt on use and witnessed teach back. IS @ best this shift is 500. No peripheral edema noted. Pulses present and equal. Bed bath and linens changed per staff this shift. Rectum noted to be excoriated d/t multiple episodes of diarrhea from yesterday, barrier cream applied as needed. No BM this shift. Has voided per bedpan this shift, d/t weakness and labored breathing. Pt did get up to BSC this afternoon and did well w/ only slight desat to high 80's during transfer, but recovering quickly once in bed. Urine is clear and straw colored. No BM this shift. No needs voiced this shift. Pt is currently resting in bed using cellphone. Call emilia w/in reach. Report to be given to oncoming nurse.
[2020-08-15] VITALS (12 sets, daily range): BP systolic 135–163; BP diastolic 74–91; PULSE 48–67; RESP 20–22; TEMP 36.4–36.9; O2SAT 91–97; BMI 30.6
--- NOTE | 2020-08-15 02:36 | PC.NURSE ---
have been unable to titrate oxygen down this shift. sats remaining 90-91% while sleeping. patient has been resting well with unlabored breathing pattern.
--- NOTE | 2020-08-15 06:01 | PC.NURSE ---
patient has been awake since 0400 vitals signs. vapotherm settings remain the same. o2 sats greater than 90 except with coughing episode. patient coughing episodes increased this am as well but remain non production. states that chest feels tight, improved after breathing treatment.
[2020-08-15 06:04] LABS: Basophils % 0.3 % (0.1-2.0); Eosinophils % 0.2 % (0.1-12.0); Hematocrit 36.2 % (37.0-47.0); Hemoglobin 12.3 g/dL (12.2-16.2); Lymphocytes # 0.9 K/mm3 (0.7-4.5); Mean Corpuscular HGB Conc 33.9 g/dL (31.8-35.4); Mean Corpuscular Hemoglobin 31.8 pg (27.0-31.2); Mean Corpuscular Volume 93.6 fl (81-99); Mean Platelet Volume 7.8 fl (7.4-10.4); Monocytes # 0.6 K/mm3 (0.1-1.0); Monocytes % 6.6 % (1.7-9.3); Neutrophils # 6.8 K/mm3 (1.8-7.8); Neutrophils % 81.9 % (37.0-80.0); Platelet Count 372 K/mm3 (142-424); Red Blood Count 3.87 M/mm3 (4.20-5.40); Red Cell Distribution Width 13.8 % (11.5-17.5); White Blood Count 8.3 K/mm3 (4.8-10.8)
[2020-08-15 06:12] LABS: Chloride 108 mmol/L (98-107); Potassium 3.6 mmoL/L (3.5-5.1); Sodium 141 mmol/L (136-145)
[2020-08-15 06:14] LABS: Blood Urea Nitrogen 16 mg/dl (7-17); Creatinine Clearance Estimated 69 mL/min (50-200); Estimated Glomerular Filt Rate 83 ml/min (>60); GFR (African American) 101 ML/MIN (>60)
[2020-08-15 06:15] LABS: Alanine Aminotransferase 15 U/L (12-78); Albumin Level 2.7 g/dl (3.5-5.0); Alkaline Phosphatase 67 U/L (38-126); Anion Gap 8.6 mEq/L (5-15); Aspartate Amino Transferase 24 U/L (14-36); Bilirubin,Total 0.6 mg/dl (0.2-1.3); Calcium 8.5 mg/dl (8.4-10.2); Carbon Dioxide 28 mmol/L (22.0-30.0); Globulin 2.8 g/dL (1.3-3.2); Glucose 101 mg/dl (74-100); Magnesium 1.8 mg/dl (1.6-2.3); Total Protein,Serum 5.5 g/dl (6.3-8.2)
--- NOTE | 2020-08-15 08:34 | HMH.ACPN ---
Internal Medicine - PN: Subj *Date: 08/15/20 *Time: 08:34 Exam Vital signs and Labs for Last 24 Hours: Temp Pulse Resp BP Pulse Ox 97.8 F 58 L 20 135/74 91 L 08/15/20 08:00 08/15/20 08:00 08/15/20 08:00 08/15/20 08:00 08/15/20 08:00 Laboratory Results - last 24 hr 08/15/20 05:35: WBC 8.3, RBC 3.87 L, Hgb 12.3, Hct 36.2 L, MCV 93.6, MCH 31.8 H, MCHC 33.9, RDW 13.8, Plt Count 372, MPV 7.8, Neut % (Auto) 81.9 H, Lymph % (Auto) 11.0, [place] % (Auto) 6.6, Eos % (Auto) 0.2, Baso % (Auto) 0.3, Neut # (Auto) 6.8, Lymph # (Auto) 0.9, [place] # (Auto) 0.6, Eos # (Auto) 0.0, Baso # (Auto) 0.0 08/15/20 05:35: Sodium 141, Potassium 3.6, Chloride 108 H, Carbon Dioxide 28, Anion Gap 8.6, BUN 16, Creatinine 0.70, Estimated Creat Clear 69, Estimated GFR 83, Est GFR ( Amer) 101, Glucose 101 H, Calcium 8.5, Magnesium 1.8, Total Bilirubin 0.6, AST 24, ALT 15 D, Alkaline Phosphatase 67, Total Protein 5.5 L, Albumin 2.7 L, Globulin 2.8, Albumin/Globulin Ratio 1.0 L I & O for Last 24 hours: Intake & Output 08/12/20 08/13/20 08/14/20 08/15/20 23:59 23:59 23:59 23:59 Intake Total 1184 / 2385 2414 / 2414 2759 / 2759 240 / 240 Output Total 880 / 883 3 3 1350 / 1350 400 / 400 Balance 304 / 1502 2411 / 2411 1409 / 1409 -160 / -160 Weight 76.204 kg 79 kg 81.363 kg Microbiology Reports for the Last 24 Hours: Microbiology 08/14/20 15:00 Sputum - Expectorated Sputum Gram Stain - Final 08/14/20 15:00 Sputum - Expectorated Sputum Sputum Culture - Preliminary Assessment and Plan (1) COVID-19 Current visit: Yes Status: Acute Category: Medical Code(s): U07.1 - COVID-19 (2) Lobar pneumonia Current visit: Yes Status: Acute Category: Medical Code(s): J18.1 - Lobar pneumonia, unspecified organism (3) Respiratory failure with hypoxia Current visit: Yes Status: Acute Qualifiers: Chronicity: acute Qualified Code(s): J96.01 - Acute respiratory failure with hypoxia Category: Medical Code(s): J96.91 - Respiratory failure, unspecified with hypoxia (4) CAD (coronary artery disease) Current visit: No Status: Chronic Qualifiers: Category: Medical Code(s): I25.10 - Atherosclerotic heart disease of [place] coronary artery without angina pectoris (5) COPD (chronic obstructive pulmonary disease) Current visit: No Status: Chronic Qualifiers: Category: Medical Code(s): J44.9 - Chronic obstructive pulmonary disease, unspecified (6) HTN (hypertension) Current visit: No Status: Chronic Qualifiers: Category: Medical Code(s): I10 - Essential (primary) hypertension The patient's infection will respond to the chosen ABx?: Yes Is the patient receiving the right drug, dose, and route?: Yes Could a more targeted ABx be ordered?: No (SPUTUM CX PENDING OF DOCUMENTATION)
--- NOTE | 2020-08-15 08:43 | HMH.ACPN2 ---
Internal Medicine - PN: Subj *Date: 08/15/20 *Time: 11:00 Interval history: Patient remained stable. Diarrhea has slowed. Remains afebrile. Tolerating Vapotherm at 50% FiO2. Complains of significant fatigue, shortness of breath stable. No chest pain or confusion. Eating 25-50% of her trays. Exam Vital signs and Labs for Last 24 Hours: Temp Pulse Resp BP Pulse Ox 97.8 F 58 L 20 135/74 91 L 08/15/20 08:00 08/15/20 08:00 08/15/20 08:00 08/15/20 08:00 08/15/20 08:00 Laboratory Results - last 24 hr 08/15/20 05:35: WBC 8.3, RBC 3.87 L, Hgb 12.3, Hct 36.2 L, MCV 93.6, MCH 31.8 H, MCHC 33.9, RDW 13.8, Plt Count 372, MPV 7.8, Neut % (Auto) 81.9 H, Lymph % (Auto) 11.0, [place] % (Auto) 6.6, Eos % (Auto) 0.2, Baso % (Auto) 0.3, Neut # (Auto) 6.8, Lymph # (Auto) 0.9, [place] # (Auto) 0.6, Eos # (Auto) 0.0, Baso # (Auto) 0.0 08/15/20 05:35: Sodium 141, Potassium 3.6, Chloride 108 H, Carbon Dioxide 28, Anion Gap 8.6, BUN 16, Creatinine 0.70, Estimated Creat Clear 69, Estimated GFR 83, Est GFR ( Amer) 101, Glucose 101 H, Calcium 8.5, Magnesium 1.8, Total Bilirubin 0.6, AST 24, ALT 15 D, Alkaline Phosphatase 67, Total Protein 5.5 L, Albumin 2.7 L, Globulin 2.8, Albumin/Globulin Ratio 1.0 L I & O for Last 24 hours: Intake & Output 08/12/20 08/13/20 08/14/20 08/15/20 23:59 23:59 23:59 23:59 Intake Total 1184 / 2385 2414 / 2414 2759 / 2759 240 / 240 Output Total 880 / 883 3 / 3 1350 / 1350 400 / 400 Balance 304 / 1502 2411 / 2411 1409 / 1409 -160 / -160 Weight 76.204 kg 79 kg 81.363 kg Microbiology Reports for the Last 24 Hours: Microbiology 08/14/20 15:00 Sputum - Expectorated Sputum Gram Stain - Final 08/14/20 15:00 Sputum - Expectorated Sputum Sputum Culture - Preliminary Narrative: - Constitutional Mild distress, minimal labored breathing on Vapotherm - *Routine HEENT Exam Head: Present: normocephalic Eye: Present: EOMI, PERRL ENT: Present: mucous membranes moist - *Routine Neck Exam Present: supple. Absent: lymphadenopathy - *Routine Respiratory Exam Present: accessory muscle use, crackles diffusely through posterior lung sanders. No wheezes - *Routine Cardiovascular Exam Present: bradycardia, reg rhythm - *Routine Abdominal Exam Present: soft, normoactive bowel sounds. Absent: tenderness - *Routine Extremities Exam Absent: cyanosis, clubbing, edema - *Routine Skin Exam Present: warm. Absent: rash - *Routine Neurological Exam Present: alert, oriented X3 Assessment and Plan (1) COVID-19 Current visit: Yes Status: Acute Category: Medical Code(s): U07.1 - COVID-19 (2) Lobar pneumonia Current visit: Yes Status: Acute Category: Medical Code(s): J18.1 - Lobar pneumonia, unspecified organism (3) Respiratory failure with hypoxia Current visit: Yes Status: Acute Qualifiers: Chronicity: acute Qualified Code(s): J96.01 - Acute respiratory failure with hypoxia Category: Medical Code(s): J96.91 - Respiratory failure, unspecified with hypoxia (4) CAD (coronary artery disease) Current visit: No Status: Chronic Qualifiers: Category: Medical Code(s): I25.10 - Atherosclerotic heart disease of [place] coronary artery without angina pectoris (5) COPD (chronic obstructive pulmonary disease) Current visit: No Status: Chronic Qualifiers: Category: Medical Code(s): J44.9 - Chronic obstructive pulmonary disease, unspecified (6) HTN (hypertension) Current visit: No Status: Chronic Qualifiers: Category: Medical Code(s): I10 - Essential (primary) hypertension (7) Gastroenteritis Current visit: No Status: Acute Category: Medical Code(s): K52.9 - Noninfective gastroenteritis and colitis, unspecified Suspect secondary to COVID-19 infection. Stool sample was negative for infectious etiology. Diarrhea and nausea have become well documented symptoms of COVID-19. Imodium as needed to slow diarrhea. PRN t
--- NOTE | 2020-08-15 08:46 | XR_ITS ---
PROCEDURE: XR CHEST PORTABLE Referring Doctor: Phi Green Patient Age:69Y CLINICAL HISTORY: Pneumonia, worsening SOA Covid positive COMPARISON: 08/11/2020, 08/08/2020 08/05/[address] chest from November 2019 FINDINGS: AP portable upright CXR performed today and compared to most recent 08/11/2020 and 08/08/2020 CXR Today's study shows significant progression of bilateral pneumonia. These rather diffuse progressive bilateral patchy infiltrates are most pronounced at the periphery of both right and left lung Right lung:. Progressive pneumonic infiltrate is seen throughout the right lung only sparing the right apex. Infiltrate is most pronounced peripherally at the right mid lung involving the right upper lobe but also with additional infiltrate more evident at the right infrahilar region and throughout RLL Left lung: Patchy areas infiltrate most evident at periphery of left mid lung Additional infiltrate is also seen throughout the left lower lobe most evident at medial left base retrocardiac region of left. The left hemidiaphragm most obscured in this retrocardiac region; and overall otherwise is less well-defined reflecting the more diffuse left lower lobe airspace disease. Cardiac silhouette appears slightly enlarged compared to previous studies...-This may in part be due to less optimal inspiration and the slight lordotic projection but I believe is there is a additional finding to be noted. Median sternotomy again observed. Pulmonary vasculature appears more pronounced today with suggestion of mild vascular engorgement. Osseous structures unremarkable IMPRESSION: 1... Appears to be significant progression Of Bilateral Pneumonic Infiltrates radiographically, since 08/11/2020 CXR (Final note: On further review would question some extrinsic overlying densities which may exaggerate these findings-particularly the bilateral peripheral infiltrates. Recommend follow-up CXR in a.m. to better evaluate) 2.. Cardiac silhouette appears slight larger with additional mild vascular engorgement suggested. This may in part due to less optimal inspiration but is noted Dictated by: Loc Stack MD 08/15/2020 12:00 Loc Stack MD in [place] 08/15/2020 12:00
--- NOTE | 2020-08-15 10:41 | PC.NURSE ---
IS @ best this AM = 250
--- NOTE | 2020-08-15 15:57 | PC.NURSE ---
Pt's SPO2 consistently above 95%, RT at bedside now to wean to 45% FIO2.
--- NOTE | 2020-08-15 16:19 | PC.NURSE ---
Has been up to chair since before lunch time. Tolerating settings on vapotherm w/ no c/o being SOA while resting. Pt continues to have productive cough occasionally, usually provoked by activity. Has been assisted back and forth to BSC, tolerates activity well. Pt does desat for breif time to high 80's but recovers quickly. At rest pt does not appear labored or in distress. IS remains at bedside, pt does use indendently throughout shift w/ encouragement. Is sinus edward on tely. Voiding clear straw colored urine w/o difficulty. Has had one BM this shift. Daughter was updated on pt's current status this AM by this nurse and Dr. Green and again this afternoon by telephone. No needs voiced by pt at this time. Will continue to monitor.
[2020-08-16] VITALS (16 sets, daily range): BP systolic 105–162; BP diastolic 64–93; PULSE 48–79; RESP 18–24; TEMP 36.2–37; O2SAT 84–97; BMI 30.7
[2020-08-16 06:42] LABS: Basophils % 0.2 % (0.1-2.0); Eosinophils % 0.4 % (0.1-12.0); Hematocrit 34.5 % (37.0-47.0); Hemoglobin 11.8 g/dL (12.2-16.2); Lymphocytes # 0.9 K/mm3 (0.7-4.5); Lymphocytes % 10.2 % (10-50); Mean Corpuscular HGB Conc 34.4 g/dL (31.8-35.4); Mean Corpuscular Hemoglobin 32.1 pg (27.0-31.2); Mean Corpuscular Volume 93.3 fl (81-99); Mean Platelet Volume 8.1 fl (7.4-10.4); Monocytes # 0.7 K/mm3 (0.1-1.0); Monocytes % 7.6 % (1.7-9.3); Neutrophils # 7.3 K/mm3 (1.8-7.8); Neutrophils % 81.6 % (37.0-80.0); Platelet Count 393 K/mm3 (142-424); Red Blood Count 3.69 M/mm3 (4.20-5.40); Red Cell Distribution Width 13.8 % (11.5-17.5)
[2020-08-16 06:46] LABS: Chloride 105 mmol/L (98-107); Potassium 3.2 mmoL/L (3.5-5.1); Sodium 139 mmol/L (136-145)
[2020-08-16 06:48] LABS: Alanine Aminotransferase 16 U/L (12-78); Aspartate Amino Transferase 25 U/L (14-36); Blood Urea Nitrogen 13 mg/dl (7-17); Creatinine Clearance Estimated 69 mL/min (50-200); Estimated Glomerular Filt Rate 99 ml/min (>60); GFR (African American) 120 ML/MIN (>60)
[2020-08-16 06:49] LABS: Albumin Level 2.6 g/dl (3.5-5.0); Albumin/Globulin Ratio 0.9 (1.1-1.8); Alkaline Phosphatase 65 U/L (38-126); Anion Gap 9.2 mEq/L (5-15); Bilirubin,Total 0.7 mg/dl (0.2-1.3); Calcium 8.2 mg/dl (8.4-10.2); Carbon Dioxide 28 mmol/L (22.0-30.0); Globulin 2.8 g/dL (1.3-3.2); Glucose 101 mg/dl (74-100); Magnesium 1.7 mg/dl (1.6-2.3); Total Protein,Serum 5.4 g/dl (6.3-8.2)
--- NOTE | 2020-08-16 06:52 | PC.NURSE ---
patient has better night than previously. patient able to get up and down to bedside commode, lowest sats has been 82% with activity and recovers back to 90-92% and sustains while at rest. breath sounds course and diminished throughout all sanders, breathing does become labored with activity and coughing episode. heart rate has sustained 40s to 50s.
[2020-08-16 06:55] LABS: C-Reactive Protein 56.6 mg/L (0-4)
--- NOTE | 2020-08-16 08:12 | HMH.ACPN2 ---
Internal Medicine - PN: Subj *Date: 08/16/20 *Time: 08:12 Interval history: Overall patient did well through the night. Remains on high flow nasal cannula oxygen but FiO2 was able to be reduced to 35%. She feels well and is alert, pleasant and oriented. Exam Vital signs and Labs for Last 24 Hours: Temp Pulse Resp BP Pulse Ox 97.1 F L 60 18 162/91 H 94 L 08/16/20 04:38 08/16/20 07:00 08/16/20 04:38 08/16/20 04:38 08/16/20 07:00 Laboratory Results - last 24 hr 08/16/20 05:55: WBC 9.0, RBC 3.69 L, Hgb 11.8 L, Hct 34.5 L, MCV 93.3, MCH 32.1 H, MCHC 34.4, RDW 13.8, Plt Count 393, MPV 8.1, Neut % (Auto) 81.6 H, Lymph % (Auto) 10.2, [place] % (Auto) 7.6, Eos % (Auto) 0.4, Baso % (Auto) 0.2, Neut # (Auto) 7.3, Lymph # (Auto) 0.9, [place] # (Auto) 0.7, Eos # (Auto) 0.0, Baso # (Auto) 0.0 08/16/20 05:55: Sodium 139, Potassium 3.2 L, Chloride 105, Carbon Dioxide 28, Anion Gap 9.2, BUN 13, Creatinine 0.60, Estimated Creat Clear 69, Estimated GFR 99, Est GFR ( Amer) 120, Glucose 101 H, Calcium 8.2 L, Magnesium 1.7, Total Bilirubin 0.7, AST 25, ALT 16, Alkaline Phosphatase 65, C-Reactive Protein 56.6 H, Total Protein 5.4 L, Albumin 2.6 L, Globulin 2.8, Albumin/Globulin Ratio 0.9 L I & O for Last 24 hours: Intake & Output 08/13/20 08/14/20 08/15/20 08/16/20 11:59 11:59 11:59 11:59 Intake Total 1831 / 1831 2433 / 2433 1659 / 1659 2579 / 2579 Output Total 383 / 383 850 / 850 1300 / 1300 1550 / 1550 Balance 1448 / 1448 1583 / 1583 359 / 359 1029 / 1029 Weight 174 lb 2.643 oz 179 lb 6 oz 180 lb Microbiology Reports for the Last 24 Hours: Microbiology 08/14/20 15:00 Sputum - Expectorated Sputum Gram Stain - Final 08/14/20 15:00 Sputum - Expectorated Sputum Sputum Culture - Preliminary Narrative: Patient is alert, oriented. No complaints of dyspnea. Heart rate regular. Lungs have good air movement. Abdomen soft and nontender. No rash. Cranial nerves intact. No conjunctivitis. Oropharynx clear. Assessment and Plan (1) COVID-19 Current visit: Yes Status: Acute Category: Medical Code(s): U07.1 - COVID-19 (2) Lobar pneumonia Current visit: Yes Status: Acute Category: Medical Code(s): J18.1 - Lobar pneumonia, unspecified organism (3) Respiratory failure with hypoxia Current visit: Yes Status: Acute Qualifiers: Chronicity: acute Qualified Code(s): J96.01 - Acute respiratory failure with hypoxia Category: Medical Code(s): J96.91 - Respiratory failure, unspecified with hypoxia (4) CAD (coronary artery disease) Current visit: No Status: Chronic Qualifiers: Category: Medical Code(s): I25.10 - Atherosclerotic heart disease of [place] coronary artery without angina pectoris (5) COPD (chronic obstructive pulmonary disease) Current visit: No Status: Chronic Qualifiers: Category: Medical Code(s): J44.9 - Chronic obstructive pulmonary disease, unspecified (6) HTN (hypertension) Current visit: No Status: Chronic Qualifiers: Category: Medical Code(s): I10 - Essential (primary) hypertension (7) Gastroenteritis Current visit: No Status: Acute Category: Medical Code(s): K52.9 - Noninfective gastroenteritis and colitis, unspecified - Assessment and plan all Dx Assessment and Plan for all problems:: Patient is stabilized and slightly improved. We will continue current management in regards to antivirals, supportive care in the ICU and continue to wean oxygen as tolerated. She is done a good job of being up to the chair and moving about in her room.
--- NOTE | 2020-08-16 09:40 | DIET.NUTRFU ---
Pt with small PO improvements with 25% recorded at dinner yesterday and 75% at lunch. Pt diet is being supplemented with Ensure shakes TID and an additional scoop of Beneprotein added to appropriate food at each meal. Will continue to monitor pt for PO improvements.
--- NOTE | 2020-08-16 09:44 | HMH.PULMPN ---
Internal Medicine - PN: Subj *Date: 08/16/20 *Time: 09:44 Interval history: No acute events overnight. Patient respiratory status improved now on 35 L and 40% FiO2, saturating 92% to 94% Exam Vital signs and Labs for Last 24 Hours: Temp Pulse Resp BP Pulse Ox 97.1 F L 60 18 162/91 H 94 L 08/16/20 04:38 08/16/20 07:00 08/16/20 04:38 08/16/20 04:38 08/16/20 07:00 Laboratory Results - last 24 hr 08/16/20 05:55: WBC 9.0, RBC 3.69 L, Hgb 11.8 L, Hct 34.5 L, MCV 93.3, MCH 32.1 H, MCHC 34.4, RDW 13.8, Plt Count 393, MPV 8.1, Neut % (Auto) 81.6 H, Lymph % (Auto) 10.2, [place] % (Auto) 7.6, Eos % (Auto) 0.4, Baso % (Auto) 0.2, Neut # (Auto) 7.3, Lymph # (Auto) 0.9, [place] # (Auto) 0.7, Eos # (Auto) 0.0, Baso # (Auto) 0.0 08/16/20 05:55: Sodium 139, Potassium 3.2 L, Chloride 105, Carbon Dioxide 28, Anion Gap 9.2, BUN 13, Creatinine 0.60, Estimated Creat Clear 69, Estimated GFR 99, Est GFR ( Amer) 120, Glucose 101 H, Calcium 8.2 L, Magnesium 1.7, Total Bilirubin 0.7, AST 25, ALT 16, Alkaline Phosphatase 65, C-Reactive Protein 56.6 H, Total Protein 5.4 L, Albumin 2.6 L, Globulin 2.8, Albumin/Globulin Ratio 0.9 L I & O for Last 24 hours: Intake & Output 08/13/20 08/14/20 08/15/20 08/16/20 23:59 23:59 23:59 23:59 Intake Total 2414 / 2414 2759 / 2759 2294 / 2294 525 / 525 Output Total 3 / 3 1350 / 1350 1150 / 1150 1200 / 1200 Balance 2411 / 2411 1409 / 1409 1144 / 1144 -675 / -675 Weight 174 lb 2.643 oz 179 lb 6 oz 180 lb Microbiology Reports for the Last 24 Hours: Microbiology 08/14/20 15:00 Sputum - Expectorated Sputum Gram Stain - Final 08/14/20 15:00 Sputum - Expectorated Sputum Sputum Culture - Preliminary Radiology Reports for the Last 24 Hours: Chest x-ray from yesterday showed bilateral worsening pulmonary infiltrates. - Constitutional mild distress - *Routine HEENT Exam Head: Present: normocephalic, atraumatic. Absent: cushingoid faces - *Routine Neck Exam Present: supple, full ROM. Absent: JVD, carotid bruit, lymphadenopathy, thyromegaly - *Routine Respiratory Exam Present: rhonchi, wheezes. Absent: accessory muscle use, distant breath sounds - *Routine Abdominal Exam Present: soft, normoactive bowel sounds. Absent: tenderness, distended, rebound - *Routine Extremities Exam Absent: cyanosis, clubbing, edema Assessment and Plan (1) COVID-19 Current visit: Yes Status: Acute Category: Medical Code(s): U07.1 - COVID-19 (2) Lobar pneumonia Current visit: Yes Status: Acute Category: Medical Code(s): J18.1 - Lobar pneumonia, unspecified organism (3) Respiratory failure with hypoxia Current visit: Yes Status: Acute Qualifiers: Chronicity: acute Qualified Code(s): J96.01 - Acute respiratory failure with hypoxia Category: Medical Code(s): J96.91 - Respiratory failure, unspecified with hypoxia (4) CAD (coronary artery disease) Current visit: No Status: Chronic Qualifiers: Category: Medical Code(s): I25.10 - Atherosclerotic heart disease of [place] coronary artery without angina pectoris (5) COPD (chronic obstructive pulmonary disease) Current visit: No Status: Chronic Qualifiers: Category: Medical Code(s): J44.9 - Chronic obstructive pulmonary disease, unspecified (6) HTN (hypertension) Current visit: No Status: Chronic Qualifiers: Category: Medical Code(s): I10 - Essential (primary) hypertension (7) Gastroenteritis Current visit: No Status: Acute Category: Medical Code(s): K52.9 - Noninfective gastroenteritis and colitis, unspecified - Assessment and plan all Dx Assessment and Plan for all problems:: #COVID-19 pneumonia: #Acute hypoxic respiratory failure: 69-year-old female with history of COPD on triple inhaler therapy, CAD status post bypass, on anticoagulation and apixaban at home presented with worsening COVID-19 infection. Repeat chest x-ray from over the weekend chest x-ray showe
--- NOTE | 2020-08-16 11:22 | PC.NURSE ---
0900 - VAPOTHERM DECREASED TO 20 L @ 45% BY DR. ESCOBAR.
--- NOTE | 2020-08-16 13:40 | PC.NURSE ---
Pt has productive cough with large amount of thick dark colored sputum.
--- NOTE | 2020-08-16 17:25 | PC.NURSE ---
Addendum entered by Gricel Dean RN 08/16/20 17:55: PRODUCTIVE COUGH* Original Note: A&OX4. PT HAS TOLERATED 20L 45% ON THE VAPOTHERM THROUHGOUT SHIFT. RESPIRATIONS REGULAR AND UNLABORED. RUL NOTED W FINE CRACKLES. DIMINISHED THROUGHOUT. OCCASIONAL NONPRODUCTIVE COUGH NOTED. NO EDEMA NOTED. HAND PIZZA COOK EQUAL. +2 PULSES NOTED THROUGHOUT. PT HAS BEEN SINUS [place]ABELA TO NSR ON TELE. NO COMPLAINTS OF SOB OR PAIN THUS FAR. PT RECEIVED A BATH AND LINEN CHANGE TODAY AND TOLERATED WELL. SHE VOIDS PER BSC WITH STANDBY ASSIST. CLEAR YELLOW URINE NOTED. PT HAS HAD 2 BMS TODAY THAT HAVE BEEN BROWN AND LOOSE. ACTIVE BOWEL SOUNDS HEARD IN ALL 4 QUADRANTS. SOFT AND NONTENDER ABDOMEN. PT HAS REMAINED AFEBRILE. NS INFUSING AT 75ML/HR. PT'S APPETITE HAS BEEN A LITTLE BETTER TODAY SINCE ADMISSION. PT IS CURRENTLY LYING IN BED W CALL LIGHT WITHIN REACH. BED IN LOWEST POSITION. VSS. WILL CONTINUE TO MONITOR.
[2020-08-17] VITALS (16 sets, daily range): BP systolic 115–144; BP diastolic 66–93; PULSE 50–75; RESP 14–22; TEMP 36.7–37.1; O2SAT 89–97; BMI 31.3
--- NOTE | 2020-08-17 00:49 | PC.NURSE ---
at 0000 pt's sats between 84-86% and sustaining, RT called and adjustments to Vapotherm made, 25 LPM and 50 % FiO2
--- NOTE | 2020-08-17 06:59 | HMH.ACPN2 ---
Internal Medicine - PN: Subj *Date: 08/17/20 *Time: 14:33 Interval history: Ms. Andres had some desaturations overnight with a decrease to flow of 20 L on Vapotherm. Required increase of her FiO2 to 50% to maintain saturations of approximately 88 to 89%. Continues to appear fatigued however remains stable. Up with assistance to bedside commode. Tolerating p.o. intake Exam Vital signs and Labs for Last 24 Hours: Temp Pulse Resp BP Pulse Ox 98.8 F 56 L 20 142/86 H 89 L 08/17/20 04:00 08/17/20 04:00 08/17/20 04:00 08/17/20 04:00 08/17/20 04:00 I & O for Last 24 hours: Intake & Output 08/14/20 08/15/20 08/16/20 08/17/20 23:59 23:59 23:59 23:59 Intake Total 2759 / 2759 2294 / 2294 2268 / 2388 120 / 120 Output Total 1350 / 1350 1150 / 1150 1202 / 1202 Balance 1409 / 1409 1144 / 1144 1066 / 1186 120 / 120 Weight 81.363 kg 81.647 kg 83.121 kg Microbiology Reports for the Last 24 Hours: Microbiology 08/11/20 15:40 Blood Blood Culture - Final NO GROWTH AFTER 5 DAYS 08/11/20 15:40 Blood Blood Culture - Final NO GROWTH AFTER 5 DAYS 08/14/20 15:00 Sputum - Expectorated Sputum Gram Stain - Final 08/14/20 15:00 Sputum - Expectorated Sputum Sputum Culture - Preliminary Narrative: - Constitutional Mild distress, minimal labored breathing on Vapotherm - *Routine HEENT Exam Head: Present: normocephalic Eye: Present: EOMI, PERRL ENT: Present: mucous membranes moist - *Routine Neck Exam Present: supple. Absent: lymphadenopathy - *Routine Respiratory Exam Present: accessory muscle use, crackles intervally improved but still present diffusely with deep inspiration through posterior lung sanders. No wheezes - *Routine Cardiovascular Exam Present: bradycardia, reg rhythm - *Routine Abdominal Exam Present: soft, normoactive bowel sounds. Absent: tenderness - *Routine Extremities Exam Absent: cyanosis, clubbing, edema - *Routine Skin Exam Present: warm. Absent: rash - *Routine Neurological Exam Present: alert, oriented X3 Assessment and Plan (1) COVID-19 Current visit: Yes Status: Acute Category: Medical Code(s): U07.1 - COVID-19 (2) Lobar pneumonia Current visit: Yes Status: Acute Category: Medical Code(s): J18.1 - Lobar pneumonia, unspecified organism (3) Respiratory failure with hypoxia Current visit: Yes Status: Acute Qualifiers: Chronicity: acute Qualified Code(s): J96.01 - Acute respiratory failure with hypoxia Category: Medical Code(s): J96.91 - Respiratory failure, unspecified with hypoxia (4) CAD (coronary artery disease) Current visit: No Status: Chronic Qualifiers: Category: Medical Code(s): I25.10 - Atherosclerotic heart disease of [place] coronary artery without angina pectoris (5) COPD (chronic obstructive pulmonary disease) Current visit: No Status: Chronic Qualifiers: Category: Medical Code(s): J44.9 - Chronic obstructive pulmonary disease, unspecified (6) HTN (hypertension) Current visit: No Status: Chronic Qualifiers: Category: Medical Code(s): I10 - Essential (primary) hypertension (7) Gastroenteritis Current visit: No Status: Acute Category: Medical Code(s): K52.9 - Noninfective gastroenteritis and colitis, unspecified - Assessment and plan all Dx Assessment and Plan for all problems:: 69-year-old female with ARDS, acute hypoxemic respiratory failure, COVID-19 pneumonia. Continues to tolerate Vapotherm. Some mild improvement in her FiO2 requirement. Pulmonology consulted to assist in care, appreciate their recommendations. Continue p.o. nutrition, tolerating well. Plan as follows: -Continue oxygen supplementation via high flow nasal cannula -if oxygen saturations remained stable on current high flow settings, will wean to 6 L nasal cannula -Continue Remdesavir and dexamethasone, plan to comp
--- NOTE | 2020-08-17 07:30 | PC.NURSE ---
shift summary, pt rested well t/o shift, up to BSC one time during shift, pt O2 did drop to 84% when up, O2 sats while at rest have been between 89-93 %, HR has been between 56-75, lungs are diminished t/o with fine crackles on the right and diminished t/o,
[2020-08-17 07:44] LABS: Chloride 108 mmol/L (98-107); Sodium 141 mmol/L (136-145)
[2020-08-17 07:45] LABS: Potassium 3.3 mmoL/L (3.5-5.1)
[2020-08-17 07:47] LABS: Alanine Aminotransferase 20 U/L (12-78); Albumin Level 2.4 g/dl (3.5-5.0); Albumin/Globulin Ratio 0.9 (1.1-1.8); Alkaline Phosphatase 67 U/L (38-126); Anion Gap 7.3 mEq/L (5-15); Aspartate Amino Transferase 31 U/L (14-36); Bilirubin,Total 0.5 mg/dl (0.2-1.3); Blood Urea Nitrogen 18 mg/dl (7-17); Carbon Dioxide 29 mmol/L (22.0-30.0); Creatinine Clearance Estimated 71 mL/min (50-200); Estimated Glomerular Filt Rate 99 ml/min (>60); GFR (African American) 120 ML/MIN (>60); Globulin 2.7 g/dL (1.3-3.2); Glucose 90 mg/dl (74-100); Total Protein,Serum 5.1 g/dl (6.3-8.2)
[2020-08-17 07:56] LABS: Basophils % 0.1 % (0.1-2.0); Eosinophils % 0.4 % (0.1-12.0); Hematocrit 34.5 % (37.0-47.0); Hemoglobin 11.7 g/dL (12.2-16.2); Lymphocytes % 10.3 % (10-50); Mean Corpuscular HGB Conc 33.9 g/dL (31.8-35.4); Mean Corpuscular Hemoglobin 31.9 pg (27.0-31.2); Mean Platelet Volume 8.3 fl (7.4-10.4); Monocytes # 0.6 K/mm3 (0.1-1.0); Monocytes % 6.7 % (1.7-9.3); Neutrophils # 7.8 K/mm3 (1.8-7.8); Neutrophils % 82.5 % (37.0-80.0); Platelet Count 379 K/mm3 (142-424); Red Blood Count 3.67 M/mm3 (4.20-5.40); Red Cell Distribution Width 14.1 % (11.5-17.5); White Blood Count 9.5 K/mm3 (4.8-10.8)
--- NOTE | 2020-08-17 08:34 | HMH.PULMPN ---
Internal Medicine - PN: Subj *Date: 08/17/20 *Time: 09:37 Interval history: She denies any new complaints. No acute events overnight. Oxygen requirements remain stable. Exam Vital signs and Labs for Last 24 Hours: Temp Pulse Resp BP Pulse Ox 98.2 F 73 18 121/77 92 L 08/17/20 08:00 08/17/20 08:00 08/17/20 08:00 08/17/20 08:00 08/17/20 08:00 Laboratory Results - last 24 hr 08/17/20 05:50: WBC 9.5, RBC 3.67 L, Hgb 11.7 L, Hct 34.5 L, MCV 94.0, MCH 31.9 H, MCHC 33.9, RDW 14.1, Plt Count 379, MPV 8.3, Neut % (Auto) 82.5 H, Lymph % (Auto) 10.3, [place] % (Auto) 6.7, Eos % (Auto) 0.4, Baso % (Auto) 0.1, Neut # (Auto) 7.8, Lymph # (Auto) 1.0, [place] # (Auto) 0.6, Eos # (Auto) 0.0, Baso # (Auto) 0.0 08/17/20 05:50: Sodium 141, Potassium 3.3 L, Chloride 108 H, Carbon Dioxide 29, Anion Gap 7.3, BUN 18 H D, Creatinine 0.60, Estimated Creat Clear 71, Estimated GFR 99, Est GFR ( Amer) 120, Glucose 90, Calcium 8.0 L, Total Bilirubin 0.5, AST 31, ALT 20, Alkaline Phosphatase 67, Total Protein 5.1 L, Albumin 2.4 L, Globulin 2.7, Albumin/Globulin Ratio 0.9 L I & O for Last 24 hours: Intake & Output 08/14/20 08/15/20 08/16/20 08/17/20 23:59 23:59 23:59 23:59 Intake Total 2759 / 2759 2294 / 2294 2268 / 2388 600 / 600 Output Total 1350 / 1350 1150 / 1150 1202 / 1202 250 / 250 Balance 1409 / 1409 1144 / 1144 1066 / 1186 350 / 350 Weight 179 lb 6 oz 180 lb 183 lb 4 oz Microbiology Reports for the Last 24 Hours: Microbiology 08/14/20 15:00 Sputum - Expectorated Sputum Gram Stain - Final 08/14/20 15:00 Sputum - Expectorated Sputum Sputum Culture - Preliminary 08/11/20 15:40 Blood Blood Culture - Final NO GROWTH AFTER 5 DAYS 08/11/20 15:40 Blood Blood Culture - Final NO GROWTH AFTER 5 DAYS - Constitutional mild distress - *Routine HEENT Exam Head: Present: normocephalic, atraumatic - *Routine Neck Exam Present: supple, full ROM. Absent: JVD - *Routine Respiratory Exam Present: respiratory distress, rhonchi. Absent: accessory muscle use - *Routine Cardiovascular Exam Present: Normal S1, Normal S2 - *Routine Abdominal Exam Present: soft, normoactive bowel sounds. Absent: tenderness, distended, rebound - *Routine Extremities Exam Present: cyanosis, clubbing, edema Assessment and Plan (1) COVID-19 Current visit: Yes Status: Acute Category: Medical Code(s): U07.1 - COVID-19 (2) Lobar pneumonia Current visit: Yes Status: Acute Category: Medical Code(s): J18.1 - Lobar pneumonia, unspecified organism (3) Respiratory failure with hypoxia Current visit: Yes Status: Acute Qualifiers: Chronicity: acute Qualified Code(s): J96.01 - Acute respiratory failure with hypoxia Category: Medical Code(s): J96.91 - Respiratory failure, unspecified with hypoxia (4) CAD (coronary artery disease) Current visit: No Status: Chronic Qualifiers: Category: Medical Code(s): I25.10 - Atherosclerotic heart disease of [place] coronary artery without angina pectoris (5) COPD (chronic obstructive pulmonary disease) Current visit: No Status: Chronic Qualifiers: Category: Medical Code(s): J44.9 - Chronic obstructive pulmonary disease, unspecified (6) HTN (hypertension) Current visit: No Status: Chronic Qualifiers: Category: Medical Code(s): I10 - Essential (primary) hypertension (7) Gastroenteritis Current visit: No Status: Acute Category: Medical Code(s): K52.9 - Noninfective gastroenteritis and colitis, unspecified - Assessment and plan all Dx Assessment and Plan for all problems:: #COVID-19 pneumonia: #Acute hypoxic respiratory failure: 69-year-old female with history of COPD on triple inhaler therapy, CAD status post bypass, on anticoagulation and apixaban at home presented with worsening COVID-19 infection. Blood cultures no growth 48 hours. Oxygen requirements i
--- NOTE | 2020-08-17 18:00 | PC.NURSE ---
Pt has been pleasant and cooperative this shift. A&O X4. No complaints of pain or SOA. Pt is currently receiving O2 @ 6 LPM via NC with sats. >90%. Lung sounds reveal fine crackles on the RT side. LT side lung sounds are diminished. Skin is C/D/I. No edema noted. Pt ambulates independently to the BS and voids clear, yellow urine without issue. 1 large, soft, brown BM this shift. 20 G peripheral IV in the LT AC and 22 G peripheral IV in the LT wrist DC'd today due to dislodgment. A new 20 G peripheral IV in the LT forearm was inserted. NS is infusing @ 75 ML/HR. VSS. Call light within reach. Will continue to monitor.
[2020-08-18] VITALS (13 sets, daily range): BP systolic 127–144; BP diastolic 76–89; PULSE 58–70; RESP 16–24; TEMP 36.4–36.9; O2SAT 92–98; BMI 31.9
--- NOTE | 2020-08-18 03:43 | PC.NURSE ---
Addendum entered by Francia Connors RN 08/18/20 05:56: Note to add: this nurse applied humidification to pt's o2 this shift. Original Note: Pt has rested intermittently this shift. Pt has continued to tolerate 6 L nc appropriately. Pt does desat when getting up to use the BSC between 83-86%, but will go back up to 90-94% within seconds. Expiratory wheezing is heard bilaterally upon auscultation with fine crackles heard in the RUL. IS used q1hwa. Active bowel sounds in all 4 quads. PIV in LFA remains patent and is infusing NS @ 75 ml/hr. Pt is able to ambulate independently to BSC with a steady gait and satisfactory balance. Pt is urinating clear, yellow urine. Pt has had one BM this shift. BM was soft and brown with a mild odor. Call light is within reach. No other acute changes or complaints at this time. Will continue to monitor.
[2020-08-18 06:07] LABS: Basophils % 0.3 % (0.1-2.0); Chloride 105 mmol/L (98-107); Eosinophils # 0.1 K/mm3 (0.0-0.4); Eosinophils % 1.2 % (0.1-12.0); Hematocrit 34.3 % (37.0-47.0); Hemoglobin 11.2 g/dL (12.2-16.2); Lymphocytes # 0.8 K/mm3 (0.7-4.5); Lymphocytes % 8.6 % (10-50); Mean Corpuscular HGB Conc 32.7 g/dL (31.8-35.4); Mean Corpuscular Hemoglobin 31.3 pg (27.0-31.2); Mean Corpuscular Volume 95.8 fl (81-99); Mean Platelet Volume 8.7 fl (7.4-10.4); Monocytes # 0.5 K/mm3 (0.1-1.0); Monocytes % 5.3 % (1.7-9.3); Neutrophils # 7.4 K/mm3 (1.8-7.8); Neutrophils % 84.5 % (37.0-80.0); Platelet Count 266 K/mm3 (142-424); Potassium 3.4 mmoL/L (3.5-5.1); Red Blood Count 3.59 M/mm3 (4.20-5.40); Sodium 140 mmol/L (136-145); White Blood Count 8.7 K/mm3 (4.8-10.8)
[2020-08-18 06:10] LABS: Alanine Aminotransferase 23 U/L (12-78); Albumin Level 2.6 g/dl (3.5-5.0); Alkaline Phosphatase 67 U/L (38-126); Anion Gap 9.4 mEq/L (5-15); Aspartate Amino Transferase 33 U/L (14-36); Bilirubin,Total 0.6 mg/dl (0.2-1.3); Blood Urea Nitrogen 21 mg/dl (7-17); Calcium 8.2 mg/dl (8.4-10.2); Carbon Dioxide 29 mmol/L (22.0-30.0); Creatinine Clearance Estimated 72 mL/min (50-200); Estimated Glomerular Filt Rate 99 ml/min (>60); GFR (African American) 120 ML/MIN (>60); Globulin 2.7 g/dL (1.3-3.2); Glucose 111 mg/dl (74-100); Magnesium 1.6 mg/dl (1.6-2.3); Total Protein,Serum 5.3 g/dl (6.3-8.2)
[2020-08-18 06:15] LABS: C-Reactive Protein 42.3 mg/L (0-4)
--- NOTE | 2020-08-18 07:51 | HMH.ACPN2 ---
Internal Medicine - PN: Subj *Date: 08/18/20 *Time: 07:51 Interval history: Patient is pleasant, talkative, oriented x3. In good spirits, eating breakfast well. Exam Vital signs and Labs for Last 24 Hours: Temp Pulse Resp BP Pulse Ox 98.4 F 62 20 134/89 98 08/18/20 04:00 08/18/20 07:03 08/18/20 04:00 08/18/20 04:00 08/18/20 07:03 Laboratory Results - last 24 hr 08/17/20 05:50: WBC 9.5, RBC 3.67 L, Hgb 11.7 L, Hct 34.5 L, MCV 94.0, MCH 31.9 H, MCHC 33.9, RDW 14.1, Plt Count 379, MPV 8.3, Neut % (Auto) 82.5 H, Lymph % (Auto) 10.3, [place] % (Auto) 6.7, Eos % (Auto) 0.4, Baso % (Auto) 0.1, Neut # (Auto) 7.8, Lymph # (Auto) 1.0, [place] # (Auto) 0.6, Eos # (Auto) 0.0, Baso # (Auto) 0.0 08/18/20 05:20: WBC 8.7, RBC 3.59 L, Hgb 11.2 L, Hct 34.3 L, MCV 95.8, MCH 31.3 H, MCHC 32.7, RDW 14.0, Plt Count 266 D, MPV 8.7, Neut % (Auto) 84.5 H, Lymph % (Auto) 8.6 L, [place] % (Auto) 5.3, Eos % (Auto) 1.2, Baso % (Auto) 0.3, Neut # (Auto) 7.4, Lymph # (Auto) 0.8, [place] # (Auto) 0.5, Eos # (Auto) 0.1, Baso # (Auto) 0.0 08/18/20 05:20: Magnesium 1.6, C-Reactive Protein 42.3 H D 08/18/20 05:20: Sodium 140, Potassium 3.4 L, Chloride 105, Carbon Dioxide 29, Anion Gap 9.4, BUN 21 H, Creatinine 0.60, Estimated Creat Clear 72, Estimated GFR 99, Est GFR ( Amer) 120, Glucose 111 H D, Calcium 8.2 L, Total Bilirubin 0.6, AST 33, ALT 23, Alkaline Phosphatase 67, Total Protein 5.3 L, Albumin 2.6 L, Globulin 2.7, Albumin/Globulin Ratio 1.0 L I & O for Last 24 hours: Intake & Output 08/15/20 08/16/20 08/17/20 08/18/20 11:59 11:59 11:59 11:59 Intake Total 1659 / 1659 2579 / 2579 2343 / 2343 2892 / 2892 Output Total 1300 / 1300 1551 / 1551 251 / 251 1380 / 1380 Balance 359 / 359 1028 / 1028 2092 / 2092 1512 / 1512 Weight 179 lb 6 oz 180 lb 183 lb 4 oz 187 lb 3.2 oz Microbiology Reports for the Last 24 Hours: Microbiology 08/14/20 15:00 Sputum - Expectorated Sputum Gram Stain - Final 08/14/20 15:00 Sputum - Expectorated Sputum Sputum Culture - Preliminary Narrative: Patient's oxygen levels have improved, she is been weaned down to 6 L nasal cannula, no Vapotherm. Lungs have some dry fibrous crackles but air movement is symmetric. Heart rate regular. Abdomen soft. No edema or clubbing. Good distal perfusion. Neurologic exam intact. Assessment and Plan (1) COVID-19 Current visit: Yes Status: Acute Category: Medical Code(s): U07.1 - COVID-19 (2) Lobar pneumonia Current visit: Yes Status: Acute Category: Medical Code(s): J18.1 - Lobar pneumonia, unspecified organism (3) Respiratory failure with hypoxia Current visit: Yes Status: Acute Qualifiers: Chronicity: acute Qualified Code(s): J96.01 - Acute respiratory failure with hypoxia Category: Medical Code(s): J96.91 - Respiratory failure, unspecified with hypoxia (4) CAD (coronary artery disease) Current visit: No Status: Chronic Qualifiers: Category: Medical Code(s): I25.10 - Atherosclerotic heart disease of [place] coronary artery without angina pectoris (5) COPD (chronic obstructive pulmonary disease) Current visit: No Status: Chronic Qualifiers: Category: Medical Code(s): J44.9 - Chronic obstructive pulmonary disease, unspecified (6) HTN (hypertension) Current visit: No Status: Chronic Qualifiers: Category: Medical Code(s): I10 - Essential (primary) hypertension (7) Gastroenteritis Current visit: No Status: Acute Category: Medical Code(s): K52.9 - Noninfective gastroenteritis and colitis, unspecified - Assessment and plan all Dx Assessment and Plan for all problems:: Overall improvement. Continue current supportive care and oxygen therapy. Continue current excepted cocktail for COVID-19. Anticipate discharge in the next couple of days if we can get her oxygen down to the 4 L range.
--- NOTE | 2020-08-18 11:02 | HMH.PULMPN ---
Internal Medicine - PN: Subj *Date: 08/18/20 *Time: 11:02 Interval history: No acute events overnight. Patient respiratory status improved, currently on 5 L nasal cannula Exam Vital signs and Labs for Last 24 Hours: Temp Pulse Resp BP Pulse Ox 98.2 F 67 24 127/79 94 L 08/18/20 08:00 08/18/20 08:00 08/18/20 08:00 08/18/20 08:00 08/18/20 08:00 Laboratory Results - last 24 hr 08/18/20 05:20: WBC 8.7, RBC 3.59 L, Hgb 11.2 L, Hct 34.3 L, MCV 95.8, MCH 31.3 H, MCHC 32.7, RDW 14.0, Plt Count 266 D, MPV 8.7, Neut % (Auto) 84.5 H, Lymph % (Auto) 8.6 L, [place] % (Auto) 5.3, Eos % (Auto) 1.2, Baso % (Auto) 0.3, Neut # (Auto) 7.4, Lymph # (Auto) 0.8, [place] # (Auto) 0.5, Eos # (Auto) 0.1, Baso # (Auto) 0.0 08/18/20 05:20: Magnesium 1.6, C-Reactive Protein 42.3 H D 08/18/20 05:20: Sodium 140, Potassium 3.4 L, Chloride 105, Carbon Dioxide 29, Anion Gap 9.4, BUN 21 H, Creatinine 0.60, Estimated Creat Clear 72, Estimated GFR 99, Est GFR ( Amer) 120, Glucose 111 H D, Calcium 8.2 L, Total Bilirubin 0.6, AST 33, ALT 23, Alkaline Phosphatase 67, Total Protein 5.3 L, Albumin 2.6 L, Globulin 2.7, Albumin/Globulin Ratio 1.0 L I & O for Last 24 hours: Intake & Output 08/15/20 08/16/20 08/17/20 08/18/20 23:59 23:59 23:59 23:59 Intake Total 2294 / 2294 2268 / 2388 2267 / 2627 1225 / 1225 Output Total 1150 / 1150 1202 / 1202 980 / 1630 650 / 650 Balance 1144 / 1144 1066 / 1186 1287 / 997 575 / 575 Weight 179 lb 6 oz 180 lb 183 lb 4 oz 187 lb 3.2 oz Microbiology Reports for the Last 24 Hours: Microbiology 08/14/20 15:00 Sputum - Expectorated Sputum Gram Stain - Final 08/14/20 15:00 Sputum - Expectorated Sputum Sputum Culture - Final Yeast - Constitutional mild distress Assessment and Plan (1) COVID-19 Current visit: Yes Status: Acute Category: Medical Code(s): U07.1 - COVID-19 (2) Lobar pneumonia Current visit: Yes Status: Acute Category: Medical Code(s): J18.1 - Lobar pneumonia, unspecified organism (3) Respiratory failure with hypoxia Current visit: Yes Status: Acute Qualifiers: Chronicity: acute Qualified Code(s): J96.01 - Acute respiratory failure with hypoxia Category: Medical Code(s): J96.91 - Respiratory failure, unspecified with hypoxia (4) CAD (coronary artery disease) Current visit: No Status: Chronic Qualifiers: Category: Medical Code(s): I25.10 - Atherosclerotic heart disease of [place] coronary artery without angina pectoris (5) COPD (chronic obstructive pulmonary disease) Current visit: No Status: Chronic Qualifiers: Category: Medical Code(s): J44.9 - Chronic obstructive pulmonary disease, unspecified (6) HTN (hypertension) Current visit: No Status: Chronic Qualifiers: Category: Medical Code(s): I10 - Essential (primary) hypertension (7) Gastroenteritis Current visit: No Status: Acute Category: Medical Code(s): K52.9 - Noninfective gastroenteritis and colitis, unspecified - Assessment and plan all Dx Assessment and Plan for all problems:: #COVID-19 pneumonia: #Acute hypoxic respiratory failure: Clinical status improving, currently requiring 5 L nasal cannula. Febrile no evidence of leukocytosis Sputum culture showing yeast, likely contaminant. Will opt not to treat at this point of time given clinical improvement. Completed 5-day treatment for her community-acquired pneumonia. Plan: -Wean oxygen supplementation via nasal cannula to maintain saturations 92 or above -Continue Remdesavir and dexamethasone -Continue Trelegy inhaler along with Albuterol as needed Q6 hrs Thank you for involving pulmonary in this patient care. We will continue to follow.
--- NOTE | 2020-08-18 11:47 | DIET.NUTRFU ---
Pt PO intake has improved with an 81% average at her last 4 meals. Pt is receiving ensure shakes TID and beneprotein to help supplement diet. Will continue to monitor.
--- NOTE | 2020-08-18 14:44 | HMH.PTEV ---
Physical Therapy Evaluation Rehab PT IP Evaluation Start: 08/18/20 12:11 Freq: ONCE Status: Active Protocol: Document 08/18/20 14:13 IVANA (Rec: 08/18/20 14:43 IVANA [id number]) Subjective/History History History Pt. reported to ED on 08/11/20 with feeling of weakness and not able to eat for 4-5 days, with a recent + COVID test. Tom Comfort SPT Subjective Subjective Pt. reported that she has some weakness but is doing better. She reported that if she gets rid of her cough she would feel much better. Rehab PT IP Eval Objective Appearance Patient Behavior Appropriate,Cooperative Patient Orientation Person,Place,Name,Birthday Difficulty following instructions none Speech Pattern Clear,Appropriate Ambulation Patient Able to Ambulate Yes Ambulation Observation IP General Gait Pattern Observation No Deviations/Normal Ambulation Distance (feet) 10 Ambulation Assistive Device None Ambulation Ability Supervision/Stand by,Contact Guard/Hand Hold Balance Ability to Arise Able, uses arms to help Sitting Balance Steady, safe Standing Balance Unsteady Dynamic Sitting Balance Ability Good Transfers Bed Transfer Ability Independent Chair Transfer Ability Independent,Supervision/Stand by Sit to Stand Bed Transfer Ability Supervision/Stand by Sit to Stand Chair Transfer Ability Supervision/Stand by ROM All Extremities PT ROM Status WFL MMT All Extremities PT MMT WFL Rehab PT IP prob,goals,plan Problems Date of Evaluation: 08/18/20 PT IP Problems Transfers,Gait,Self care Rehab Potential Rehab Potential Fair Equipment Needs Assistive Devices Straight Cane Plan PT Intervention Plan Transfers,Gait,Self care, Safety,Therapeutic Exercise PT Plan Frequency BID Duration LOS Discharge Goals Bed Transfer Ability Independent Sit to Stand Chair Transfer Ability Independent Ambulation Assistive Device Straight Cane Ambulation Distance (feet) 30 Discharge Plan PT Discharge Plan Pt. would benefit from home [facility] to be able to increase cardiopulmonary endurance as well as improve overall
--- NOTE | 2020-08-18 15:21 | PC.NURSE ---
PATIENT A&OX4, LUNG SOUNDS: EXPIRATORY RHONCHI NOTED. PULSES EQUAL, EDEMA NOTED ON MID RIGHT ARM. THIS RN INSTRUCTED TO PATIENT TO NOT LEAN ON RIGHT SIDE. PATIENT VERBALIZED AN UNDERSTANDING BUT CONTINUES TO DO SO. PATIENT HAS HAD SEVERAL EPISODES OF COUGHING. PATIENT O2 DROPS IN THE LOW 80S AND RECOVERS TO MID 90S QUICKLY. PATIENT IS NOW ON 3L NC, STATS MID 90S. PATIENT UP TO BEDSIDE COMMODE, PATIENT FEELS WEAK. THIS RN ORDERED PT CONSULT PER DR. HAYNES. NO OTHER CONCERNS AT THIS TIME.
[2020-08-19] VITALS: PULSE 70
[2020-08-19 03:37] VITALS: BP 138/90; PULSE 58; RESP 16; TEMP 36.3; O2SAT 92
--- NOTE | 2020-08-19 03:53 | PC.NURSE ---
Pt continues to be unable to sleep, Temazepam administered without effectiveness. Pt has had intermittent non-productive, has denies need for guafenesin. Pt receiving oxygen at 2.5L/min via nc with sats >=92. Pt c/o headache earlier in shift, tylenol administered as ordered. Tylenol was somewhat effective per pt with pain decrease from 8 to 4. Per pt, her biggest problem is the inability to sleep.
[2020-08-19 04:00] VITALS: PULSE 60
--- NOTE | 2020-08-19 04:09 | PC.NURSE ---
At approximately 0345, pt cardiac rhythm changed from NSR to Afib with rate in the 50's and 60's.
[2020-08-19 04:35] LABS: Chloride 107 mmol/L (98-107)
[2020-08-19 04:36] LABS: Sodium 140 mmol/L (136-145)
[2020-08-19 04:38] LABS: Alanine Aminotransferase 21 U/L (12-78); Alkaline Phosphatase 68 U/L (38-126); Aspartate Amino Transferase 26 U/L (14-36); Bilirubin,Total 0.5 mg/dl (0.2-1.3); Blood Urea Nitrogen 23 mg/dl (7-17); Creatinine Clearance Estimated 72 mL/min (50-200); Estimated Glomerular Filt Rate 99 ml/min (>60); GFR (African American) 120 ML/MIN (>60)
[2020-08-19 04:39] LABS: Albumin Level 2.5 g/dl (3.5-5.0); Albumin/Globulin Ratio 0.9 (1.1-1.8); Calcium 8.4 mg/dl (8.4-10.2); Carbon Dioxide 29 mmol/L (22.0-30.0); Globulin 2.7 g/dL (1.3-3.2); Glucose 95 mg/dl (74-100); Total Protein,Serum 5.2 g/dl (6.3-8.2)
[2020-08-19 05:00] VITALS: BMI 32.4
[2020-08-19 06:05] VITALS: PULSE 62; PULSE 66; O2SAT 92
[2020-08-19 08:00] VITALS: BP 118/64; PULSE 60; PULSE 70; RESP 20; O2SAT 94; O2SAT 95
--- NOTE | 2020-08-19 08:10 | HMH.DCSUM ---
General - General Admission date:: 08/11/20 Discharge date: 08/19/20 HPI HPI: MR Comment: 69-year-old female presents the emergency department stating that she has been feeling weak, has not been able to eat over the last 4 to 5 days, has a recent diagnosis of COVID + status. She arrives the ED hemodynamically stable but is 83 to 84% on room air, does not normally have an oxygen requirement. She is 93 to 94% on 3 L and appears more comfortable. She states that she aches all over, but denies any chest pain other worrisome complaint at this time. Will get labs including lactate, chest x-ray, EKG, treat with Decadron and a bolus of fluids given that she is dehydrated and reassess. Reassessment, patient remained stable on 3 L supplemental oxygen. Labs at this time are nonactionable. Chest x-ray personally reviewed and shows patchy bilateral infiltrates. Started an oral Z-Fredo, maintenance fluids, and she will be admitted for further treatment. History as above per emergency department. Patient was seen in our office about 10 days ago, diagnosed with the coronavirus 19 pneumonitis as noted above but did have lobar infiltrates and was given azithromycin and Omnicef p.o. She initially improved but then began to have increasing dyspnea, increasing oxygen requirement and admitted through the ER as noted above. Hospital Course Hospital Course: Patient was admitted to hospital. Pulmonary was consulted given her significant pulmonary comorbidities. High flow oxygen was started for a couple of days with Vapotherm device, peak FiO2 was at 45%. Patient was started on the currently accepted coronavirus 19 cocktail including vitamins, Remdesivir and anticoagulation therapy. She improved over the next 3 or 4 days, high flow oxygen was able to be weaned and she was weaned down to a 2 L nasal cannula yesterday. She did very nicely overnight, this is her oxygen baseline. This morning she was doing great. She will be discharged home with home health for PT/OT/correction for oxygenation monitoring, and she will follow-up with our office in 5 days. Please note that I performed a [id number] visit with the patient today, she can leave her house only with a great deal of difficulty and dyspnea. She is suitable for the above-noted home health services. Objective Vital signs: Temp Pulse Resp BP Pulse Ox 97.4 F L 66 16 138/90 92 L 08/19/20 03:37 08/19/20 06:05 08/19/20 03:37 08/19/20 03:37 08/19/20 06:05 no acute distress - *Routine HEENT Exam Head: Present: normocephalic Eye: Present: EOMI, PERRL ENT: Present: mucous membranes moist - *Routine Neck Exam Present: supple - *Routine Respiratory Exam Present: prolonged expiratory phase, rales, wheezes Comments: Pulmonary exam back to baseline. Much better air excursion - *Routine Cardiovascular Exam Present: RRR - *Routine Abdominal Exam Present: soft, normoactive bowel sounds. Absent: tenderness - *Routine Extremities Exam Absent: cyanosis, clubbing, edema - *Routine Skin Exam Present: warm. Absent: rash - Detailed Eye Exam Eyelids: Bilateral normal inspection Results Labs on day of discharge: Labs from last 24 hours 08/19/20 04:00 Sodium 140 Potassium 4.0 Chloride 107 Carbon Dioxide 29 Anion Gap 8.0 BUN 23 H Creatinine 0.60 Estimated Creat Clear 72 Estimated GFR 99 Est GFR ( Amer) 120 Glucose 95 Calcium 8.4 Total Bilirubin 0.5 AST 26 ALT 21 Alkaline Phosphatase 68 Total Protein 5.2 L Albumin 2.5 L Globulin 2.7 Albumin/Globulin Ratio 0.9 L DS: Diagnosis - Discharge Diagnosis (1) COVID-19 Status: Resolved (2) Lobar pneumonia Status: Resolved (3) Respiratory failure with hypoxia Status: Resolved (4) CAD (coronary artery disease) Status: Chronic (5) COPD (chronic obstructive pulmonary disease) Status: Chronic (6) HTN (hypertension) Status: Chronic
--- NOTE | 2020-08-19 08:15 | SW/DCPLANNER ---
Addendum entered by Silvia Carreon 08/19/20 11:20: PATIENT CHOSE [facility] AND REFERRAL WAS SENT AND CONFIRMED FOR SERVICES TO START IN THE AM... PATIENT WILL LEAVE THIS AFTERNOON WHEN FAMILY CAN COME AND GET HER... Original Note: PATIENT ADMITTED TO [facility] ON 08/11 WITH A POSITIVE COVID... SHE HAS DONE WELL AND IS READY FOR A DISPOSITION HOME WITH HOME HEALTH SERVICES.... SHE WILL RECEIVE PT/OT AND [facility]...THIS WILL BE SET UP AND CONFIRMED ONCE PATIENT LETS ME KNOW THE AGENCY SHE WISHES TO USE...
--- NOTE | 2020-08-19 09:26 | HMH.PULMPN ---
Internal Medicine - PN: Subj *Date: 08/19/20 *Time: 09:30 Interval history: Patient denies any new complaints. No acute events overnight. Exam Vital signs and Labs for Last 24 Hours: Temp Pulse Resp BP Pulse Ox 97.4 F L 70 20 118/64 94 L 08/19/20 03:37 08/19/20 08:00 08/19/20 08:00 08/19/20 08:00 08/19/20 08:00 Laboratory Results - last 24 hr 08/19/20 04:00: Sodium 140, Potassium 4.0, Chloride 107, Carbon Dioxide 29, Anion Gap 8.0, BUN 23 H, Creatinine 0.60, Estimated Creat Clear 72, Estimated GFR 99, Est GFR ( Amer) 120, Glucose 95, Calcium 8.4, Total Bilirubin 0.5, AST 26, ALT 21, Alkaline Phosphatase 68, Total Protein 5.2 L, Albumin 2.5 L, Globulin 2.7, Albumin/Globulin Ratio 0.9 L I & O for Last 24 hours: Intake & Output 08/16/20 08/17/20 08/18/20 08/19/20 23:59 23:59 23:59 23:59 Intake Total 2268 / 2388 2267 / 2627 2204 / 2204 1182 / 1182 Output Total 1202 / 1202 980 / 1630 1250 / 1600 900 / 900 Balance 1066 / 1186 1287 / 997 954 / 604 282 / 282 Weight 180 lb 183 lb 4 oz 187 lb 3.2 oz 190 lb 1.6 oz Microbiology Reports for the Last 24 Hours: Microbiology 08/14/20 15:00 Sputum - Expectorated Sputum Gram Stain - Final 08/14/20 15:00 Sputum - Expectorated Sputum Sputum Culture - Final Yeast - *Routine HEENT Exam Head: Present: normocephalic, atraumatic - *Routine Neck Exam Present: supple, full ROM. Absent: JVD, carotid bruit - *Routine Respiratory Exam Present: rhonchi. Absent: accessory muscle use, respiratory distress - *Routine Cardiovascular Exam Present: Normal S1, Normal S2 - *Routine Abdominal Exam Present: soft, normoactive bowel sounds. Absent: tenderness, distended - *Routine Extremities Exam Absent: cyanosis, clubbing, edema Assessment and Plan (1) COVID-19 Current visit: Yes Status: Resolved Category: Medical Code(s): U07.1 - COVID-19 (2) Lobar pneumonia Current visit: Yes Status: Resolved Category: Medical Code(s): J18.1 - Lobar pneumonia, unspecified organism (3) Respiratory failure with hypoxia Current visit: Yes Status: Resolved Qualifiers: Chronicity: acute Qualified Code(s): J96.01 - Acute respiratory failure with hypoxia Category: Medical Code(s): J96.91 - Respiratory failure, unspecified with hypoxia (4) CAD (coronary artery disease) Current visit: No Status: Chronic Qualifiers: Category: Medical Code(s): I25.10 - Atherosclerotic heart disease of [place] coronary artery without angina pectoris (5) COPD (chronic obstructive pulmonary disease) Current visit: No Status: Chronic Qualifiers: Category: Medical Code(s): J44.9 - Chronic obstructive pulmonary disease, unspecified (6) HTN (hypertension) Current visit: No Status: Chronic Qualifiers: Category: Medical Code(s): I10 - Essential (primary) hypertension - Assessment and plan all Dx Assessment and Plan for all problems:: #COVID-19 pneumonia: #Acute hypoxic respiratory failure: Clinical status and oxygen requirements improving Febrile no evidence of leukocytosis Sputum culture showing yeast, likely contaminant. Will opt not to treat at this point of time given clinical improvement. Completed 5-day treatment for her community-acquired pneumonia. Plan: -Wean oxygen supplementation via nasal cannula to maintain saturations 92 or above -Continue Remdesavir to complete a total of 5-day course -Stop dexamethasone on discharge -Assess the need for home oxygen before discharge -Continue Trelegy inhaler along with Albuterol as needed Q6 hrs -We will follow in the pulmonary clinic 4 weeks after discharge with full PFTs and lung volumes
[2020-08-19 10:45] VITALS: PULSE 74; PULSE 75
[2020-08-19 14:58] LABS: Covid-19 Nasal PCR Sendout Lex POSITIVE
== END 2020-08-19 11:39 | disposition home health service (06) | DRG 177 ==
LOC: ER 16:15 → ICU 16:57
PROVIDERS: Internal Medicine Adolescent Medicine; Internal Medicine Pulmonary Disease; Admitting Provider Internal Medicine Adolescent Medicine; Emergency Provider Emergency Medicine; PCP Nurse Practitioner Family; Visit Provider Internal Medicine Adolescent Medicine
DX: U07.1 COVID-19 (principal); J12.89 Other viral pneumonia; J96.01 Acute respiratory failure with hypoxia; I25.10 Atherosclerotic heart disease of native coronary artery without angina pectoris; Z95.5 Presence of coronary angioplasty implant and graft; J44.9 Chronic obstructive pulmonary disease, unspecified; Z95.1 Presence of aortocoronary bypass graft; I25.2 Old myocardial infarction; I11.0 Hypertensive heart disease with heart failure; I50.9 Heart failure, unspecified; I48.91 Unspecified atrial fibrillation; K52.9 Noninfective gastroenteritis and colitis, unspecified; E78.5 Hyperlipidemia, unspecified; Z79.52 Long term (current) use of systemic steroids; Z79.01 Long term (current) use of anticoagulants; Z79.02 Long term (current) use of antithrombotics/antiplatelets; Z79.82 Long term (current) use of aspirin; Z88.0 Allergy status to penicillin; Z88.8 Allergy status to other drugs, medicaments and biological substances; Z88.5 Allergy status to narcotic agent
CPT/HCPCS: 36415; 71045; 80048; 80053; 81001; 82728; 82803; 83605; 83735; 84484; 85025; 85610; 85651; 86140; 87040; 87070; 87205; 87506; 87507; 94640; 94760; 94761; 96365; 96375; 97161; 99284; 99285; J2405; U0004

== ENCOUNTER → 2020-10-25 12:49 | Outpatient (CLI) | payer MEDICARE, MEDICAID, SELFPAY ==
--- NOTE | 2020-10-25 12:56 | MM_ITS ---
PROCEDURE: MM DIG MAMM DX UNILAT LT CAD Digital Breast Tomosynthesis Included CLINICAL INDICATION: Follow-up abnormal mammogram COMPARISON: MG MM DIG SCREENING MAMM BI W/CAD from 04/23/2020 TECHNIQUE: Standard CC and MLO images and 3D Tomosynthesis was obtained. R2 CAD reviewed. FINDINGS: There is average fibroglandular tissue. No malignant appearing mass or malignant-appearing microcalcification is evident. The nodular area of concern on the previous mammogram is once again noted and represents a skin lesion. Marker was placed over this nodule for confirmation. IMPRESSION: Benign findings. Recommend resume screening mammogram bilaterally March 2021 BI-RAD Category: 2 Benign Finding(s) FOLLOW-UP: 6M 6Month Follow-up (A letter has been sent to the patient regarding results of the study.) Dictated by: Zhao Paul MD 11/05/2020 10:22 Zhao Paul MD in [place] 11/05/2020 10:22
== END ==
PROVIDERS: PCP Nurse Practitioner Family; Visit Provider Internal Medicine Adolescent Medicine
DX: R92.8 Other abnormal and inconclusive findings on diagnostic imaging of breast (principal)
CPT/HCPCS: 77061; 77065; G0279

== ENCOUNTER → 2020-11-08 09:31 | Outpatient (POV) | payer MEDICARE, MEDICAID, SELFPAY ==
[2020-11-08 10:04] VITALS: BP 125/92; PULSE 75; RESP 18; TEMP 36.8; O2SAT 98; BMI 29.2
--- NOTE | 2020-11-08 10:21 | P.CONS_ITS ---
[facility] Pain Management SOAP Note Subjective:: Patient is a pleasant 69-year-old white female who we are treating for left hip pain. Patient after her left SI joint injection was diagnosed with Covid and was unable to return for any appointments. This time she is doing well however her left hip pain is significant. She has a positive Johnny test Angel Luis's test SI joint compression test and distraction test on the left side. She is extremely tender over left greater trochanteric bursa. She rates her pain today a 7 out of 10. She is interested in injection therapy. Patient's tried and failed over 3 months of anti-inflammatory medications. ROS General: no recent weight change, no fever, no sleep disturbances Respiratory: no cough, no shortness of air, no recurring pulmonary infections Cardiovascular/Peripheral Vascular: No chest pain, No palpitations, no edema, no shortness of breath. Gastrointestinal: no new onset incontinence, normal bowel movements reported Genitourinary: no new onset incontinence Musculoskeletal: Left hip pain left SI joint pain Psychiatric: normal mood/ affect Neurological: [denies new onset weakness in extremities], [denies new onset balance issues] Objective:: Physical Exam General: Alert and oriented x3, no acute distress, pleasant and cooperative, [on room air] Lungs: Resps E/U, Symmetrical chest expansion, Eyes: PERRL Musculoskeletal: Flexion and extension of lumbar spine somewhat guarded secondary to pain, deep tendon reflexes normal, strength in upper and lower extremities [5/5], [abnormal gait noted] Neurological: speech clear, acid wash operator equal, no gross sensory deficits Assessment:: Sacroiliitis, greater trochanteric bursitis Plan:: We will schedule the patient for left greater trochanteric bursa injection and left SI joint injection. I will follow-up with the patient after this reassess her symptoms at that time she has been instructed to call the office if she has any issues prior to her next appointment. Dr. Sharma has reviewed this note and agrees with this plan of care. This note was dictated using voice recognition software and may contain errors or omissions [facility] History I have reviewed the patient's past medical history: Yes Medical History: Reports:: Arrhythmia, Atrial Fibrillation, Cancer (Sarcoma), Congestive Heart Failure, Chronic Obstructive Pulmonary Disease (COPD), Coronary Artery Disease, Hyperlipidemia, Hypertension, Myocardial Infarction Denies:: Diabetes Mellitus Type 1, Diabetes Mellitus Type 2, Internal Pacemaker, MRSA, Seizures *Have you ever received a pneumonia vaccine?: Yes *Have you received a flu vaccine this season?: Yes Other Medical History: Reports: Chemotherapy. Denies: Blood Transfusion Reaction Other Surgeries: Yes: CABG, Cardiac Catheterization, Colonoscopy, Colon Resection, Coronary Stent, Hysterectomy-Total, Hysterectomy-Partial, Open Heart Surgery, Other (cardioversionX2). No: Pacemaker Amputation: No Fractures: No - *Social History Smoking Status: Never smoker Tobacco Type: cigarettes #Yrs smoked (if former smoker): 45 Alcohol Intake: never Substance Use Type: denies use *Occupational Status:: other Housing: house Household Members: spouse *Travel in the last 8 weeks: None Family Hx:: Other
== END ==
PROVIDERS: PCP Internal Medicine Adolescent Medicine; Visit Provider Clinical Nurse Specialist Family Health
DX: M46.1 Sacroiliitis, not elsewhere classified (principal)
CPT/HCPCS: 99212

== ENCOUNTER 2020-11-15 15:13 | Day surgery (SDC) | payer MEDICARE, MEDICAID, SELFPAY ==
[2020-11-15 15:18] VITALS: BP 148/82; PULSE 68; RESP 18; TEMP 36.6; O2SAT 98
[2020-11-15 15:53] VITALS: BP 133/72; BP 133/74; PULSE 73; PULSE 85; RESP 18; O2SAT 98
--- NOTE | 2020-11-15 15:58 | HMH.PMPROC ---
- Procedure Date: 11/15/20 Time: 15:58 Anesthesiologist:: Alyssa Peres APRN Complications:: None Pre-procedure Diagnosis:: Sacroiliitis, bursitis Post-procedure Diagnosis:: Same Indications for Procedure:: Patient is a pleasant 61-year-old white female who returns for left hip pain. Patient after her last left SI joint injection was diagnosed with Covid and was unable to return for any appointments. This time she is doing well however her left pain is significantly worse. She has a positive Johnny test Angel Luis's test SI joint compression test distraction test on the left side. She is also extremely tender over the left greater trochanteric bursa. She rates her pain today a 7 out of 10. We will set her up for left SI left greater trochanteric bursa today. Procedure Details:: Informed consent was obtained and the risks and benefits of the procedure were explained to the patient. Patient was taken to the procedure room. Patient was placed prone on the procedure table. The left hip was prepped using ChloraPrep as a cleansing solution. The skin and subcutaneous tissues were anesthetized using lidocaine. Using fluoroscopic guidance I placed a 22-gauge spinal needle into the inferior aspect of the left SI joint. After this I injected 5 mL bupivacaine 0.25% and Depo-Medrol 40 mg into the left SI joint. The patient tolerated the procedure well with no complication. We then moved onto the left greater trochanteric bursa After informed consent was obtained and the risk and benefits were explained to the patient the patient was taken to the procedure room and placed in supine position. Under fluoroscopic guidance the area of maximal tenderness was identified. The skin overlying the left hip region was prepped with ChloraPrep and draped in sterile fashion. Strict aseptic technique was observed throughout the entire procedure. The skin was anesthetized with 1% lidocaine without epinephrine. A 22-gauge spinal needle was passed to the area of the greater trochanteric bursa using fluoroscopic guidance. 1.5 mL's of Omnipaque 300 preservative-free contrast was injected into the joint to confirm location 3 mL's of a solution containing 0.25% bupivacaine and 40 mg of Depo-Medrol were injected into the bursa the patient tolerated this well with no complications. The needle was withdrawn and bandages were placed over the puncture site. Plan and Disposition:: We will see the patient back in several weeks reassess her symptoms at that time she has been instructed to call the office if she has any issues prior to her next appointment. Dr. Sharma has reviewed this note and agrees with this plan of care. This note was dictated using voice recognition software and may contain errors or omissions
[2020-11-15 16:05] VITALS: BP 134/82; PULSE 63; RESP 18; O2SAT 98
== END 2020-11-15 16:05 | disposition home or self-care (01) ==
LOC: SC.PAINP 15:18
PROVIDERS: PCP Internal Medicine Adolescent Medicine; Visit Provider Clinical Nurse Specialist Family Health
DX: M46.1 Sacroiliitis, not elsewhere classified (principal); M71.9 Bursopathy, unspecified
CPT/HCPCS: 20610; 27096; 77002; G0260; J1030; Q9966

== ENCOUNTER → 2020-12-09 11:11 | Outpatient (POV) | payer MEDICARE, MEDICAID, SELFPAY ==
[2020-12-09 12:06] VITALS: BP 132/78; PULSE 74; RESP 18; TEMP 36.6; O2SAT 98; BMI 29.3
--- NOTE | 2020-12-09 12:28 | HMH.PAINSOAP ---
[facility] Pain Management SOAP Note Subjective:: Patient is a pleasant 70-year-old white female who presents today for follow-up after left SI joint injection left greater trochanteric bursa injection. Patient is doing very well. She rates her pain today a 3 out of 10. She would like to see how long this injection last for her. She has had 80% relief of her symptomology. She is much more active. ROS General: no recent weight change, no fever, no sleep disturbances Respiratory: no cough, no shortness of air, no recurring pulmonary infections Cardiovascular/Peripheral Vascular: No chest pain, No palpitations, no edema, no shortness of breath. Gastrointestinal: no new onset incontinence, normal bowel movements reported Genitourinary: no new onset incontinence Musculoskeletal: Left hip pain left SI joint pain Psychiatric: normal mood/ affect Neurological: [denies new onset weakness in extremities], [denies new onset balance issues] Objective:: Physical Exam General: Alert and oriented x3, no acute distress, pleasant and cooperative, [on room air] Lungs: Resps E/U, Symmetrical chest expansion, Eyes: PERRL Musculoskeletal: Flexion and extension of lumbar spine somewhat guarded secondary to pain, deep tendon reflexes normal, strength in upper and lower extremities [5/5], slightly antalgic gait noted Neurological: speech clear, sausage stringer equal, no gross sensory deficits Assessment:: Sacroiliitis, bursitis Plan:: We will see the patient back on an as-needed basis. Patient will call our office if her pain begins to return. Dr. Sharma has reviewed this note and agrees with this plan of care. This note was dictated using voice recognition software and may contain errors or omissions [facility] History I have reviewed the patient's past medical history: Yes Medical History: Reports:: Arrhythmia, Atrial Fibrillation, Congestive Heart Failure, Chronic Obstructive Pulmonary Disease (COPD), Coronary Artery Disease, Hyperlipidemia, Hypertension, Myocardial Infarction Denies:: Cancer, Diabetes Mellitus Type 1, Diabetes Mellitus Type 2, Internal Pacemaker, MRSA, Seizures *Have you ever received a pneumonia vaccine?: Yes *Have you received a flu vaccine this season?: Yes Other Medical History: Reports: Chemotherapy. Denies: Blood Transfusion Reaction Other Surgeries: Yes: CABG, Cardiac Catheterization, Colonoscopy, Colon Resection, Coronary Stent, Hysterectomy-Total, Hysterectomy-Partial, Open Heart Surgery, Other (cardioversionX2). No: Pacemaker Amputation: No Fractures: No - *Social History Smoking Status: Never smoker Tobacco Type: cigarettes #Yrs smoked (if former smoker): 45 Alcohol Intake: never Substance Use Type: denies use *Occupational Status:: other Housing: house Household Members: spouse *Travel in the last 8 weeks: None Family Hx:: Other
== END ==
PROVIDERS: PCP Internal Medicine Adolescent Medicine; Visit Provider Clinical Nurse Specialist Family Health
DX: M46.1 Sacroiliitis, not elsewhere classified (principal); M71.9 Bursopathy, unspecified
CPT/HCPCS: 99212; G0463

== ENCOUNTER 2021-01-11 09:25 | Emergency (ER) | payer MEDICARE, MEDICAID, SELFPAY ==
--- NOTE | 2021-01-11 09:35 | XR_ITS ---
CLINICAL INDICATION: Cough, shortness of air, nonsmoker, history of CABG COMPARISON: CR CXR2V XR chest 2V from 01/16/[address] CHEST W CON from 12/10/2019 CR XR CHEST 2V from 02/05/2020 CR XR CHEST PORTABLE from 08/11/2020 CR XR CHEST PORTABLE from 08/15/2020 FINDINGS: Two AP portable upright chest images revealed prior median sternotomy and coronary stent placement. Bibasilar increased markings suspicious for infiltrate. Clinical correlation to exclude COVID pneumonia is recommended. Cardiac silhouette is upper limits of normal for portable technique. There is atherosclerotic calcification of the aortic arch. Mediastinal structures are otherwise unremarkable. There is persistent deformity from old left humeral head fracture. IMPRESSION: Bibasilar infiltrate. Consider COVID pneumonia as a possibility. Other chronic findings as described above. Dictated by: Nitza Alvarez 01/11/2021 11:24 Nitza Alvarez in [place] 01/11/2021 11:24
--- NOTE | 2021-01-11 09:35 | ECG_ITS ---
APPROVED REPORT Exam: Resting ECG HR:85 bpm ECG Measurements Heart Rate 85 AXES NJ 164 P 67 QRSd 98 QRS 49 QT 410 T 8 QTc 487 Conclusion Normal sinus rhythm with sinus arrhythmia Nonspecific ST and T wave abnormality Prolonged QT Abnormal ECG Electronically signed by : Michael Baez, 01/11/2021 18:54:22
--- NOTE | 2021-01-11 09:37 | HMH.EDGENADL ---
ED Disposition Clinical Impression: COPD exacerbation Disposition: Home, Self-Care Condition on Discharge: Fair Instructions: DI for Chronic Obstructive Pulmonary Disease, DI for Shortness of Breath Additional Instructions: You have been evaluated for dyspnea, diagnosed with a COPD exacerbation. Please take steroids and antibiotics as prescribed. Use steroid and albuterol inhalers at home. Follow-up with your primary care doctor before the end of the week. Return to the emergency department for any new or worsening symptoms, chest pain, shortness of breath, other concerns. Prescriptions: Ipratropium/Albuterol Sulfate [Combivent Respimat Inh] 2 puff IH QID #1 inh Transmission Status: Pending to [facility] levoFLOXacin [Levaquin 750mg tablet] 750 mg PO DAILY #5 tab Transmission Status: Pending to [facility] predniSONE [Prednisone 20mg Tab] 40 mg PO DAILY 5 Days #10 tab Transmission Status: Pending to [facility] Referrals: Kalpana Mcguire APRN [Primary Care Provider] - Time of Disposition: 11:17 - Critical Care Critical Care Time: No Attestation: On , the high probability of a clinically significant, sudden or life threatening deterioration of the following system(s) required my full and direct attention, intervention and personal management. The time I documented below is in addition to time spent performing reported procedures but includes the following listed in this critical care notation. Medical Decision Making - Medical Records Medical records reviewed: Yes: I reviewed the patient's medical records. - Donald Inquiry Pt receiving controlled substance: No Vital Signs: 01/11/21 09:46 01/11/21 09:51 01/11/21 11:03 Temperature 98.7 F Temperature Source Oral Pulse Rate [Left Radial] 99 H 86 82 Respiratory Rate 22 Blood Pressure [Right Arm] 118/76 116/72 100/54 L Blood Pressure Mean [Right Arm] 90 86 69 Blood Pressure Source [Right Arm] Automatic Cuff Automatic Cuff Automatic Cuff Blood Pressure Position [Right Arm] Sitting Sitting Sitting 02 Sat by Pulse Oximetry 93 L 94 L 96 Oxygen Delivery Method Nasal Cannula Nasal Cannula Nasal Cannula Oxygen Flow Rate (LPM) 4 4 4 - Lab Data Lab Results 01/11/21 09:15: WBC 7.7, RBC 4.62, Hgb 13.8, Hct 41.8, MCV 90.5, MCH 29.9, MCHC 33.1, RDW 13.8, Plt Count 306, MPV 7.7, Neut % (Auto) 65.4, Lymph % (Auto) 22.0, [place] % (Auto) 5.7, Eos % (Auto) 6.0, Baso % (Auto) 0.8, Neut # (Auto) 5.0, Lymph # (Auto) 1.7, [place] # (Auto) 0.4, Eos # (Auto) 0.5 H, Baso # (Auto) 0.1 01/11/21 09:15: Sodium 141, Potassium 3.7, Chloride 104, Carbon Dioxide 31 H, Anion Gap 9.7, BUN 9, Creatinine 1.00, Estimated Creat Clear 68, Estimated GFR 55 L, Est GFR ( Amer) 67, Glucose 107 H, Calcium 9.9, Total Bilirubin 0.5, AST 31, ALT 21, Alkaline Phosphatase 100, Troponin I < 0.01, Total Protein 7.6 D, Albumin 4.3, Globulin 3.3 H, Albumin/Globulin Ratio 1.3 01/11/21 09:15: NT-Pro-B Natriuret Pep 678 H 01/11/21 10:12: D-Dimer 0.47 Result diagrams: 01/11/21 09:15 01/11/21 09:15 Orders (Tests/Meds): ED MEDICATIONS Discontinued Medications Generic Name Dose Route Start Last Admin Trade Name Tigreq PRN Reason Stop Dose Admin Albuterol/Ipratropium 3 ml 01/11/21 09:36 01/11/21 10:39 Albuterol/Ipratropium 3 Ml Neb 01/11/21 09:37 Not Given ONCE ONE Albuterol/Ipratropium 2 puff 01/11/21 10:36 01/11/21 10:30 Combivent 20mcg/100mcg Respimat Inhaler 01/11/21 10:37 2 puff ONCE ONE Administration Methylprednisolone Sodium Succinate 125 mg 01/11/21 09:36 01/11/21 10:04 Methylprednisolone Sod Succ 125mg Vial IV 01/11/21 09:37 125 mg ONCE ONE Administration Miscellaneous 1 unit 01/11/21 10:36 Aerochamber/Optihaler MC 01/11/21 10:37 ONCE ONE ORDERS Category Date Time Status CXR AP view [XR chest AP] Stat Exams 01/11/21 09:35 Taken Covid-19 Nasal PCR ([facility]) Routine L
[2021-01-11 09:46] VITALS: BP 118/76; PULSE 99; RESP 22; TEMP 37.1; O2SAT 93; BMI 29.0
[2021-01-11 09:51] VITALS: BP 116/72; PULSE 86; O2SAT 94
--- NOTE | 2021-01-11 09:59 | PC.NURSE ---
Rad at bedside
[2021-01-11 10:10] LABS: VBG Base Excess 2.8 mmol/L (-2.4-2.3); VBG HCO3 28.6 mmol/L (23-30); VBG Oxygen Saturation 88.8 % (50-70); VBG PH 7.34 mmol/L (7.31-7.41); VBG PO2 56.4 mmol/L (28-40); VBG Total CO2 30.2 mmol/L (23-27)
[2021-01-11 10:11] LABS: Basophils # 0.1 K/mm3 (0-0.2); Basophils % 0.8 % (0.1-2.0); Eosinophils # 0.5 K/mm3 (0.0-0.4); Hematocrit 41.8 % (37.0-47.0); Hemoglobin 13.8 g/dL (12.2-16.2); Lymphocytes # 1.7 K/mm3 (0.7-4.5); Mean Corpuscular HGB Conc 33.1 g/dL (31.8-35.4); Mean Corpuscular Hemoglobin 29.9 pg (27.0-31.2); Mean Corpuscular Volume 90.5 fl (81-99); Mean Platelet Volume 7.7 fl (7.4-10.4); Monocytes # 0.4 K/mm3 (0.1-1.0); Monocytes % 5.7 % (1.7-9.3); Neutrophils % 65.4 % (37.0-80.0); Platelet Count 306 K/mm3 (142-424); Red Blood Count 4.62 M/mm3 (4.20-5.40); Red Cell Distribution Width 13.8 % (11.5-17.5); White Blood Count 7.7 K/mm3 (4.8-10.8)
[2021-01-11 10:13] LABS: Chloride 104 mmol/L (98-107); Sodium 141 mmol/L (136-145)
[2021-01-11 10:16] LABS: Alanine Aminotransferase 21 U/L (12-78); Albumin Level 4.3 g/dl (3.5-5.0); Albumin/Globulin Ratio 1.3 (1.1-1.8); Alkaline Phosphatase 100 U/L (38-126); Aspartate Amino Transferase 31 U/L (14-36); Bilirubin,Total 0.5 mg/dl (0.2-1.3); Blood Urea Nitrogen 9 mg/dl (7-17); Carbon Dioxide 31 mmol/L (22.0-30.0); Creatinine Clearance Estimated 68 mL/min (50-200); Estimated Glomerular Filt Rate 55 ml/min (>60); GFR (African American) 67 ML/MIN (>60); Globulin 3.3 g/dL (1.3-3.2); Total Protein,Serum 7.6 g/dl (6.3-8.2)
[2021-01-11 10:17] LABS: Calcium 9.9 mg/dl (8.4-10.2); Glucose 107 mg/dl (74-100)
[2021-01-11 10:26] LABS: NT Pro Brain Natriuretic Pep. 678 pg/mL (0-125)
[2021-01-11 10:30] LABS: Troponin I < 0.01 ng/ml (0.00-0.034)
[2021-01-11 10:34] LABS: Anion Gap 9.7 mEq/L (5-15); Potassium 3.7 mmoL/L (3.5-5.1)
[2021-01-11 10:35] LABS: D-Dimer 0.47 ug/mL (0.0-0.5)
[2021-01-11 11:03] VITALS: BP 100/54; PULSE 82; O2SAT 96
[2021-01-11 11:42] VITALS: BP 101/66; PULSE 84; RESP 18; TEMP 36.6; O2SAT 96
--- NOTE | 2021-01-11 13:01 | PC.NURSE ---
notified pt of positive covid swab
[2021-01-12 05:49] LABS: VBG PCO2 54.3 mmol/L (35-51)
== END 2021-01-11 11:45 | disposition home or self-care (01) ==
PROVIDERS: Emergency Provider Emergency Medicine; PCP Nurse Practitioner Family
DX: U07.1 COVID-19 (principal); J44.1 Chronic obstructive pulmonary disease with (acute) exacerbation; I25.10 Atherosclerotic heart disease of native coronary artery without angina pectoris; Z86.16 Personal history of COVID-19; I48.91 Unspecified atrial fibrillation; E78.5 Hyperlipidemia, unspecified; I10 Essential (primary) hypertension; I25.2 Old myocardial infarction; Z90.79 Acquired absence of other genital organ(s); Z79.899 Other long term (current) drug therapy; Z88.0 Allergy status to penicillin; Z88.8 Allergy status to other drugs, medicaments and biological substances
CPT/HCPCS: 71045; 80053; 82803; 83880; 84484; 85025; 85378; 93005; 96374; 99283; U0003

== ENCOUNTER → 2021-01-27 10:56 | Outpatient (CLI) | payer MEDICARE, MEDICAID, SELFPAY ==
[2021-01-27 12:27] LABS: Chol/HDL Ratio 1.8 (1-3.5); Cholesterol 110 mg/dl (140-200); HDL Cholesterol 62 mg/dl (40-60); Triglycerides 140 mg/dl (30-150); VLDL Cholesterol 28 mg/dL (0-40)
[2021-01-27 12:39] LABS: Direct LDL Cholesterol < 30.00 mg/dL (100-129)
[2021-01-27 12:43] LABS: 25-OH Vitamin D, Total 43.7 ng/mL (30-100)
[2021-01-27 13:34] LABS: Hemoglobin A1C 5.8 % (4.0-6.0)
== END ==
PROVIDERS: Visit Provider Nurse Practitioner Family
DX: I25.10 Atherosclerotic heart disease of native coronary artery without angina pectoris (principal); E78.5 Hyperlipidemia, unspecified; E55.9 Vitamin D deficiency, unspecified; R73.09 Other abnormal glucose
CPT/HCPCS: 36415; 80061; 82306; 83036

== ENCOUNTER → 2021-02-07 08:58 | Outpatient (POV) | payer MEDICARE, MEDICAID, SELFPAY ==
[2021-02-07 09:24] VITALS: BP 142/74; PULSE 74; RESP 18; O2SAT 98; BMI 30.9
--- NOTE | 2021-02-07 09:29 | P.CONS_ITS ---
[facility] Pain Management SOAP Note Subjective:: Patient is a pleasant 70-year-old white female who presents today for follow-up. Patient had a left SI joint injection left greater trochanteric bursa injection back in October and did extremely well until just recently. She had over 80% relief for over 3 months. She rates her pain a 7 out of 10 it is returning. Patient has a positive Johnny test SI joint compression test Angel Luis's test and distraction test on the left side she also has extreme point tenderness over the left greater trochanteric bursa. ROS General: no recent weight change, no fever, no sleep disturbances Respiratory: no cough, no shortness of air, no recurring pulmonary infections Cardiovascular/Peripheral Vascular: No chest pain, No palpitations, no edema, no shortness of breath. Gastrointestinal: no new onset incontinence, normal bowel movements reported Genitourinary: no new onset incontinence Musculoskeletal: Hip pain, left SI joint pain Psychiatric: normal mood/ affect Neurological: [denies new onset weakness in extremities], [denies new onset balance issues] Objective:: Physical Exam General: Alert and oriented x3, no acute distress, pleasant and cooperative, [on room air] Lungs: Resps E/U, Symmetrical chest expansion, Eyes: PERRL Musculoskeletal: Flexion and extension of lumbar spine somewhat guarded secondary to pain, deep tendon reflexes normal, strength in upper and lower extremities [5/5], [abnormal gait noted] Neurological: speech clear, library media technician equal, no gross sensory deficits Assessment:: Sacroiliitis, bursitis Plan:: We will schedule the patient for a left SI joint injection left greater tro chanteric bursa injection given the efficacy of this in the past I do believe it would benefit her. She has been instructed to call the office if she has any issues prior to her next appointment. Dr. Sharma has reviewed this note and agrees with this plan of care. This note was dictated using voice recognition software and may contain errors or omissions [facility] History I have reviewed the patient's past medical history: Yes Medical History: Reports:: Arrhythmia, Atrial Fibrillation, Congestive Heart Failure, Chronic Obstructive Pulmonary Disease (COPD), Coronary Artery Disease, Hyperlipidemia, Hypertension, Myocardial Infarction Denies:: Cancer, Diabetes Mellitus Type 1, Diabetes Mellitus Type 2, Internal Pacemaker, MRSA, Seizures *Have you ever received a pneumonia vaccine?: Yes *Have you received a flu vaccine this season?: No Other Medical History: Reports: Chemotherapy. Denies: Blood Transfusion Reaction Other Surgeries: Yes: CABG, Cardiac Catheterization, Colonoscopy, Colon Resection, Coronary Stent, Hysterectomy-Total, Hysterectomy-Partial, Open Heart Surgery, Other (cardioversionX2). No: Pacemaker Amputation: No Fractures: No - *Social History Smoking Status: Unknown if ever smoked Tobacco Type: cigarettes #Yrs smoked (if former smoker): 45 Alcohol Intake: never Substance Use Type: denies use *Occupational Status:: other Housing: house Household Members: spouse *Travel in the last 8 weeks: None Family Hx:: Other
== END ==
PROVIDERS: PCP Internal Medicine Adolescent Medicine; Visit Provider Clinical Nurse Specialist Family Health
DX: M46.1 Sacroiliitis, not elsewhere classified (principal); M71.9 Bursopathy, unspecified
CPT/HCPCS: 99212; G0463

== ENCOUNTER 2021-02-11 09:58 | Day surgery (SDC) | payer MEDICARE, MEDICAID, SELFPAY ==
[2021-02-11 10:35] VITALS: BP 142/73; PULSE 61; RESP 20; TEMP 36.2; O2SAT 97; BMI 30.9
[2021-02-11 11:38] VITALS: BP 132/78; PULSE 85; RESP 18; O2SAT 99
--- NOTE | 2021-02-11 11:39 | P.PCN_ITS ---
- Procedure Date: 02/11/21 Time: 11:39 Anesthesiologist:: Uriel Sharma MD Complications:: None Pre-procedure Diagnosis:: Sacroiliitis and trochanteric bursitis Post-procedure Diagnosis:: Same Indications for Procedure:: This patient is a pleasant 70-year-old white female who we are treating for left-sided hip pain. She previously had a left SI joint injection left trochanteric bursa injection back in October. She did very well for approximately 3 months. Her pain is just now starting to return. She presents for repeat left SI joint injection left trochanteric bursa injection under fluoroscopy today. Procedure Details:: Left SI joint injection under fluoroscopy Informed consent was obtained and the risks and benefits of the procedure was explained to the patient. Patient was taken to the procedure room. Patient was placed prone on the procedure table. The left hip was prepped using ChloraPrep. The skin and subcutaneous tissues were anesthetized using lidocaine. I placed a 22-gauge spinal needle into the inferior aspect of the left SI joint. Needle placement was confirmed with dye. After this we injected 5 mL bupivacaine 0.25% and Depo-Medrol 40 mg into the left SI joint. The patient tolerated the procedure well with no complication. Left trochanteric bursa injection under fluoroscopy informed consent was obtained and the risk and benefits of the procedure was explained to the patient. The patient was taken to procedure room and placed prone on the procedure table. The left hip was prepped using ChloraPrep. The skin and subcutaneous tissues were anesthetized using lidocaine. I placed a 22- gauge spinal needle under fluoroscopic guidance and advanced until it contacted the left greater trochanter. Needle placement was confirmed with dye. After this we injected 5 mL bupivacaine 0.25% and Depo-Medrol 40 mg. Patient tolerated the procedure well with no complications. Plan and Disposition:: We will follow-up with her in 2 weeks. Will reevaluate her symptoms at that time.
[2021-02-11 12:00] VITALS: BP 117/77; PULSE 57; RESP 20; O2SAT 97
== END 2021-02-11 12:00 | disposition home or self-care (01) ==
LOC: SC.PAINP 10:01
PROVIDERS: PCP Internal Medicine Adolescent Medicine; Visit Provider Anesthesiology
DX: M46.1 Sacroiliitis, not elsewhere classified (principal); M70.62 Trochanteric bursitis, left hip; J44.9 Chronic obstructive pulmonary disease, unspecified; I10 Essential (primary) hypertension; I25.10 Atherosclerotic heart disease of native coronary artery without angina pectoris; E78.5 Hyperlipidemia, unspecified; I48.19 Other persistent atrial fibrillation; Z87.39 Personal history of other diseases of the musculoskeletal system and connective tissue; Z88.0 Allergy status to penicillin; Z88.6 Allergy status to analgesic agent; Z88.8 Allergy status to other drugs, medicaments and biological substances; Z79.899 Other long term (current) drug therapy
CPT/HCPCS: 20610; 27096; 77002; G0260; J1030; Q9966

== ENCOUNTER → 2021-03-10 11:09 | Outpatient (POV) | payer MEDICARE, MEDICAID, SELFPAY ==
[2021-03-10 11:16] VITALS: BP 132/71; PULSE 69; RESP 18; O2SAT 98; BMI 30.9
--- NOTE | 2021-03-10 11:28 | P.CONS_ITS ---
[facility] Pain Management SOAP Note Subjective:: Patient is a pleasant 70-year-old white female who presents today for follow-up after left SI joint injection. She rates her pain a 0 out of 10 overall doing extremely well at her last injection she got over 3 months relief. Patient would like to follow-up on an as-needed basis. ROS General: no recent weight change, no fever, no sleep disturbances Respiratory: no cough, no shortness of air, no recurring pulmonary infections Cardiovascular/Peripheral Vascular: No chest pain, No palpitations, no edema, no shortness of breath. Gastrointestinal: no new onset incontinence, normal bowel movements reported Genitourinary: no new onset incontinence Musculoskeletal: SI joint pain at times Psychiatric: normal mood/ affect Neurological: [denies new onset weakness in extremities], [denies new onset balance issues] Objective:: Physical Exam General: Alert and oriented x3, no acute distress, pleasant and cooperative, [on room air] Lungs: Resps E/U, Symmetrical chest expansion, Eyes: PERRL Musculoskeletal: Flexion and extension of lumbar spine somewhat guarded secondary to pain, deep tendon reflexes normal, strength in upper and lower extremities [5/5], normal gait noted Neurological: speech clear, gear shaver set up operator equal, no gross sensory deficits Assessment:: Sacroiliitis Plan:: We will follow up with the patient on an as-needed basis she has been instructed to call our office if her pain begins to return. Dr. Sharma has reviewed this note and agrees with this plan of care. This note was dictated using voice recognition software and may contain errors or omissions [facility] History I have reviewed the patient's past medical history: Yes Medical History: Reports:: Arrhythmia, Atrial Fibrillation, Congestive Heart Failure, Chronic Obstructive Pulmonary Disease (COPD), Coronary Artery Disease, Hyperlipidemia, Hypertension, Myocardial Infarction Denies:: Cancer, Diabetes Mellitus Type 1, Diabetes Mellitus Type 2, Internal Pacemaker, MRSA, Seizures *Have you ever received a pneumonia vaccine?: Yes *Have you received a flu vaccine this season?: Yes Other Medical History: Reports: Chemotherapy. Denies: Blood Transfusion Reaction Other Surgeries: Yes: CABG, Cardiac Catheterization, Colonoscopy, Colon Resection, Coronary Stent, Hysterectomy-Total, Hysterectomy-Partial, Open Heart Surgery, Other (cardioversionX2). No: Pacemaker Amputation: No Fractures: No - *Social History Smoking Status: Unknown if ever smoked Tobacco Type: cigarettes #Yrs smoked (if former smoker): 45 Alcohol Intake: never Substance Use Type: denies use *Occupational Status:: retired Housing: house Household Members: spouse *Travel in the last 8 weeks: None Family Hx:: Other
== END ==
PROVIDERS: PCP Internal Medicine Adolescent Medicine; Visit Provider Clinical Nurse Specialist Family Health
DX: M46.1 Sacroiliitis, not elsewhere classified (principal)
CPT/HCPCS: 99212; G0463

== ENCOUNTER → 2021-05-26 14:51 | Outpatient (CLI) | payer MEDICARE, MEDICAID, SELFPAY ==
[2021-05-26 15:44] LABS: Basophils # 0.1 K/mm3 (0-0.2); Eosinophils # 0.3 K/mm3 (0.0-0.4); Eosinophils % 3.3 % (0.1-12.0); Hematocrit 44.6 % (37.0-47.0); Hemoglobin 15.2 g/dL (12.2-16.2); Lymphocytes # 2.8 K/mm3 (0.7-4.5); Lymphocytes % 34.9 % (10-50); Mean Corpuscular Hemoglobin 30.8 pg (27.0-31.2); Mean Corpuscular Volume 90.5 fl (81-99); Monocytes # 0.6 K/mm3 (0.1-1.0); Monocytes % 7.1 % (1.7-9.3); Neutrophils # 4.3 K/mm3 (1.8-7.8); Neutrophils % 53.7 % (37.0-80.0); Platelet Count 325 K/mm3 (142-424); Red Blood Count 4.93 M/mm3 (4.20-5.40); Red Cell Distribution Width 14.2 % (11.5-17.5); White Blood Count 8.1 K/mm3 (4.8-10.8)
[2021-05-26 16:01] LABS: Hemoglobin A1C 5.6 % (4.0-6.0)
[2021-05-26 16:25] LABS: 25-OH Vitamin D, Total 61.1 ng/mL (30-100)
[2021-05-26 16:36] LABS: Alanine Aminotransferase 20 U/L (12-78); Albumin Level 4.2 g/dl (3.5-5.0); Albumin/Globulin Ratio 1.6 (1.1-1.8); Alkaline Phosphatase 103 U/L (38-126); Anion Gap 10.9 mEq/L (5-15); Aspartate Amino Transferase 26 U/L (14-36); Bilirubin,Total 0.8 mg/dl (0.2-1.3); Blood Urea Nitrogen 12 mg/dl (7-17); Calcium 9.6 mg/dl (8.4-10.2); Carbon Dioxide 29 mmol/L (22.0-30.0); Chloride 103 mmol/L (98-107); Chol/HDL Ratio 1.4 (1-3.5); Cholesterol 129 mg/dl (140-200); Estimated Glomerular Filt Rate 55 ml/min (>60); GFR (African American) 67 ML/MIN (>60); Globulin 2.6 g/dL (1.3-3.2); Glucose 95 mg/dl (74-100); HDL Cholesterol 89 mg/dl (40-60); Potassium 3.9 mmoL/L (3.5-5.1); Sodium 139 mmol/L (136-145); Total Protein,Serum 6.8 g/dl (6.3-8.2); Triglycerides 105 mg/dl (30-150); VLDL Cholesterol 21 mg/dL (0-40)
[2021-05-26 16:51] LABS: Direct LDL Cholesterol < 30.00 mg/dL (100-129)
== END ==
PROVIDERS: Visit Provider Nurse Practitioner Family
DX: Z00.00 Encounter for general adult medical examination without abnormal findings (principal); I25.10 Atherosclerotic heart disease of native coronary artery without angina pectoris; R73.09 Other abnormal glucose; E78.5 Hyperlipidemia, unspecified; E55.9 Vitamin D deficiency, unspecified
CPT/HCPCS: 36415; 80053; 80061; 82306; 83036; 85025

== ENCOUNTER → 2021-06-20 09:31 | Outpatient (POV) | payer MEDICARE, MEDICAID, SELFPAY ==
[2021-06-20 09:36] VITALS: BP 137/82; PULSE 63; RESP 18; O2SAT 95
--- NOTE | 2021-06-20 11:08 | HMH.PAINSOAP ---
[facility] Pain Management SOAP Note Subjective:: Patient is a 70-year-old white female who presents today for follow-up. She was last seen in the clinic on 03/10/2021 for sacroiliitis. Patient is here today with complaints of left low back pain with radiation into her left buttock, left leg and groin. She says that it is radiating intermittently to her left leg and foot. Pain presented about 10 days ago and is progressively worsened. Patient says that she got excellent relief with her previous SI injection since February until 10 days ago. She got up to 90% relief. Her pain is a 7 out of 10 today. She is having difficulty sitting in the chair without repositioning often. She is also having pain with standing or walking. Patient is unable to take anti-inflammatories due to history of GI upset. She has tried and failed physical therapy along with continued home stretching. Patient is very tearful today, as she is planning bypass surgery with her this upcoming week. She says that she needs to have relief and be more functional so that she can care for him following the surgery. She is tender to palpation to her left SI joint today. She has a positive Angel Luis's, compression, distraction test. Review of Systems General: No recent weight changes, no fever, no sleep disturbances Respiratory: No cough, [no shortness of air], no recurring pulmonary infections Cardiovascular/peripheral vascular: No chest pain, no palpitations, [no edema], no shortness of breath Gastrointestinal: No new onset incontinence, normal bowel movements reported Genitourinary: No new onset incontinence Musculoskeletal: [] Left low back pain, left groin pain, left leg pain, left hip pain Psychiatric: [Normal mood/affect] Neurological: [Denies weakness in extremities], [denies balance issues] Objective:: Physical exam General: Alert and oriented x3, no acute distress, pleasant and cooperative, [on room air] Lungs: Respirations even and unlabored, symmetrical chest expansion Eyes: PERRL Musculoskeletal: Flexion and extension of [] lumbar [spine] somewhat guarded secondary to pain, strength in upper and lower extremities [5/5], [antalgic gait noted], positive Angel Luis's, compression, distraction test Neurological: Speech clear, [cell pourer equal], no gross sensory deficit Assessment:: Sacroiliitis left Plan:: We will plan for left SI joint injection today in the clinic. Patient is having low back pain with radiation into her left buttock, left hip, left groin. She has had this injection in the past and got excellent relief. We will see her back after her injection for reevaluation of symptoms. Risks and benefits of the procedure have been explained to the patient. Patient would like to proceed with the procedure. Possible side effects of corticosteroids have been discussed with the patient. Patient has been instructed to contact the clinic with any concerns before the next appointment. Dr. Sharma has reviewed this note and agrees with this plan of care. This note was dictated using voice recognition software and make contain errors or omissions. [facility] History I have reviewed the patient's past medical history: Yes Medical History: Reports:: Arrhythmia, Atrial Fibrillation, Congestive Heart Failure, Chronic Obstructive Pulmonary Disease (COPD), Coronary Artery Disease, Hyperlipidemia, Hypertension, Myocardial Infarction Denies:: Cancer, Diabetes Mellitus Type 1, Diabetes Mellitus Type 2, Internal Pacemaker, MRSA, Seizures *Have you ever received a pneumonia vaccine?: Yes *Have you received a flu vaccine this season?: Yes Other Medical History: Reports: Chemotherapy. Denies: Blood Transfusion Reaction Other Surgeries: Yes: CABG, Cardiac Catheterization, Colonoscopy, Colon Resection, Coronary Stent, Hysterectomy-Total, Hysterectomy-Partial, Open Heart Surgery, Other (cardioversionX2). No: Pacemaker Amputation: No Fractures: No - *Social History Smoking Status: Unkn
== END ==
PROVIDERS: PCP Internal Medicine Adolescent Medicine; Visit Provider Clinical Nurse Specialist Family Health
DX: M46.1 Sacroiliitis, not elsewhere classified (principal)
CPT/HCPCS: 99212; G0463

== ENCOUNTER 2021-06-20 14:46 | Day surgery (SDC) | payer MEDICARE, MEDICAID, SELFPAY ==
[2021-06-20 15:02] VITALS: BP 134/89; PULSE 66; RESP 18; TEMP 36.6; O2SAT 97
[2021-06-20 15:46] VITALS: BP 127/85; PULSE 55; RESP 18; O2SAT 95
[2021-06-20 15:48] VITALS: BP 116/68; PULSE 57; RESP 18; O2SAT 94
--- NOTE | 2021-06-20 15:51 | HMH.PMPROC ---
- Procedure Date: 06/20/21 Time: 15:51 Anesthesiologist:: Chelsea Alcocer APRN Complications:: None Pre-procedure Diagnosis:: Sacroiliitis left Post-procedure Diagnosis:: Same Indications for Procedure:: Patient is a pleasant 70-year-old white female who presents today for left low back pain. Her pain is radiating into the left buttock, left hip and left groin. It is also going into the leg. Patient says her pain is worse with standing or walking and does improve somewhat with sitting. She is planning to care for her who will be undergoing bypass surgery on Sunday. She was tearful today in clinic. As result, we did discuss doing an injection this evening to see if she can get relief before caring for her . She does have a positive Angel Luis's, compression, distraction test which was noted in the clinic today. She rated her pain a 9 or 10 out of 10. She is tender to palpation to her left SI joint as well today. Risks and benefits of the procedure have been explained to the patient. Patient would like to proceed with the procedure. Possible side effects of corticosteroids have been discussed with the patient. Physical exam General: Alert and oriented x3, no acute distress, pleasant and cooperative, [on room air] Lungs: Respirations even and unlabored, symmetrical chest expansion Eyes: PERRL Musculoskeletal: Flexion and extension of lumbar [spine] somewhat guarded secondary to pain, strength in upper and lower extremities [5/5], [antalgic gait noted] Neurological: Speech clear, [district administrative assistant equal], no gross sensory deficit Procedure Details:: Informed consent was obtained and the risk and benefits of the procedure were explained to the patient. The patient was taken to the procedure room and noninvasive monitors were placed including noninvasive blood pressure cuff and pulse oximeter. The patient was placed prone on the procedure table. The left hip was cleansed using chlorhexidine as a cleansing solution. C-arm fluoroscopy was used to view the left SI joint. The skin and subcutaneous tissue were anesthetized using lidocaine 1.5% and 25-gauge needle. After this a 22-gauge spinal needle was inserted under fluoroscopic guidance into the inferior aspect of the right SI joint. Omnipaque dye was injected and good spread was seen throughout the joint. After this approximately 5 mils of bupivacaine 0.25% and Depo-Medrol 40 mg were incrementally injected into the sacroiliac joint. The patient tolerated the procedure well with no complications. Plan and Disposition:: We will see the patient back 2 weeks. She has been instructed to contact the clinic if she has any concerns before her next appointment. Patient has been instructed to contact the clinic with any concerns before the next appointment. Dr. Sharma has reviewed this note and agrees with this plan of care. This note was dictated using voice recognition software and make contain errors or omissions.
[2021-06-20 15:56] VITALS: BP 123/75; PULSE 54; RESP 20; O2SAT 98
== END 2021-06-20 15:57 | disposition home or self-care (01) ==
LOC: SC.PAINP 14:47
PROVIDERS: PCP Internal Medicine Adolescent Medicine; Visit Provider Clinical Nurse Specialist Family Health
DX: M46.1 Sacroiliitis, not elsewhere classified (principal)
CPT/HCPCS: 27096; 99212; G0260; G0463; J1040; Q9966

== ENCOUNTER → 2021-07-25 10:37 | Outpatient (POV) | payer MEDICARE, MEDICAID, SELFPAY ==
[2021-07-25 10:44] VITALS: BP 124/64; PULSE 72; RESP 18; O2SAT 94
--- NOTE | 2021-07-25 10:55 | HMH.PAINSOAP ---
[facility] Pain Management SOAP Note Subjective:: Patient is a 70-year-old white female who presents today for follow-up after left SI joint injection. Patient says little to no relief with her last injection. She does admit, however, to having to spend nights in the hospital immediately after the injection. She spent time in the hospital with her who was undergoing bypass surgery Patient says that the pain did worsen as she was sitting for prolonged periods. She is having difficulty sitting on her left side at this time. Patient has pain in her left low back with radiation into left buttock, left hip and groin. She feels a catching sensation in her left groin as well. She has had left SI injections in the past with Dr. Sharma and is gotten significant relief up to 80% relief for greater than 2 to 3 weeks. We did discuss proceeding with repeat injection with Dr. Sharma. She is in agreement. She does have a positive Angel Luis's, compression, distraction test. She is tender to palpation to her left SI joint today. She does continue with home stretching and anti-inflammatories. Review of Systems General: No recent weight changes, no fever, no sleep disturbances Respiratory: No cough, no shortness of air, no recurring pulmonary infections Cardiovascular/peripheral vascular: No chest pain, no palpitations, no edema, no shortness of breath Gastrointestinal: No new onset incontinence, normal bowel movements reported Genitourinary: No new onset incontinence Musculoskeletal: Left low back pain with radiation into left buttock, left groin, left hip Psychiatric: [Normal mood/affect] Neurological: [Denies weakness in extremities], [denies balance issues] Objective:: Physical exam General: Alert and oriented x3, no acute distress, pleasant and cooperative, [on room air] Lungs: Respirations even and unlabored, symmetrical chest expansion Eyes: PERRL Musculoskeletal: Flexion and extension of lumbar [spine] somewhat guarded secondary to pain, strength in upper and lower extremities [5/5], [antalgic gait noted], positive Angel Luis's test, positive compression test, positive distraction test Neurological: Speech clear, [charge weigher equal], no gross sensory deficit Assessment:: Sacroiliitis left, low back pain Plan:: We will schedule the patient for left SI joint injection and see her back in the clinic afterwards for reevaluation of symptoms. Dr. Sharma has performed this injection in the past but she is gotten significant relief. Risks and benefits of the procedure have been explained to the patient. Patient would like to proceed with the procedure. Possible side effects of corticosteroids have been discussed with the patient. Patient has been instructed to contact the clinic with any concerns before the next appointment. Dr. Sharma has reviewed this note and agrees with this plan of care. This note was dictated using voice recognition software and make contain errors or omissions. [facility] History I have reviewed the patient's past medical history: Yes Medical History: Reports:: Arrhythmia, Atrial Fibrillation, Congestive Heart Failure, Chronic Obstructive Pulmonary Disease (COPD), Coronary Artery Disease, Hyperlipidemia, Hypertension, Myocardial Infarction Denies:: Cancer, Diabetes Mellitus Type 1, Diabetes Mellitus Type 2, Internal Pacemaker, MRSA, Seizures *Have you ever received a pneumonia vaccine?: No *Have you received a flu vaccine this season?: No Other Medical History: Reports: Chemotherapy. Denies: Blood Transfusion Reaction Other Surgeries: Yes: CABG, Cardiac Catheterization, Cardiac Surgery, Colonoscopy, Colon Resection, Coronary Stent, Hysterectomy-Total, Hysterectomy-Partial, Open Heart Surgery, Other (cardioversionX2). No: Pacemaker Amputation: No Fractures: No - *Social History Smoking Status: Unknown if ever smoked Tobacco Type: cigarettes #Yrs smoked (if former smoker): 45 Alcohol Intake: never Substance Use Type: denies use *Occu
== END ==
PROVIDERS: Visit Provider Clinical Nurse Specialist Family Health
DX: M46.1 Sacroiliitis, not elsewhere classified (principal); M54.5 Low back pain
CPT/HCPCS: 99212; G0463

== ENCOUNTER 2021-07-29 14:28 | Day surgery (SDC) | payer MEDICARE, MEDICAID, SELFPAY ==
[2021-07-29 14:40] VITALS: BP 133/84; PULSE 61; RESP 18; TEMP 36.4; O2SAT 96; BMI 29.2
[2021-07-29 14:44] VITALS: BP 141/81; PULSE 53; RESP 18; O2SAT 97
[2021-07-29 14:45] VITALS: BP 132/72; PULSE 52; RESP 18; O2SAT 97
--- NOTE | 2021-07-29 14:56 | P.PCN_ITS ---
- Procedure Date: 07/29/21 (n) Time: 14:59 Anesthesiologist:: Uriel Sharma MD Complications:: None Pre-procedure Diagnosis:: Sacroiliitis Post-procedure Diagnosis:: Same Indications for Procedure:: Patient is a pleasant 70-year-old white female who we are treating for left- sided hip pain. She is tender over the left SI joint. She does have a positive Angel Luis's test on left side. She has positive SI joint compression test on the left side. She has a positive distraction test on left side. We will do a left SI joint injection under fluoroscopy today to help her with her pain symptoms. Procedure Details:: Left SI joint injection under fluoroscopy Informed consent was obtained and the risks and benefits of the procedure was explained to the patient. Patient was taken to the procedure room. Patient was placed prone on the procedure table. The left hip was prepped using ChloraPrep. The skin and subcutaneous tissues were anesthetized using lidocaine. I placed a 22-gauge spinal needle into the inferior aspect of the left SI joint. Needle placement was confirmed with dye. After this we injected 5 mL bupivacaine 0.25% and Depo-Medrol 40 mg into the left SI joint. The patient tolerated the procedure well with no complication. Plan and Disposition:: We will follow-up with her in 2 weeks. Will reevaluate symptoms at that time.
[2021-07-29 15:00] VITALS: BP 128/90; PULSE 61; RESP 20; O2SAT 96
== END 2021-07-29 15:00 | disposition home or self-care (01) ==
LOC: SC.PAINP 14:29
PROVIDERS: PCP Nurse Practitioner Family; Visit Provider Anesthesiology
DX: M46.1 Sacroiliitis, not elsewhere classified (principal); I25.2 Old myocardial infarction; E78.5 Hyperlipidemia, unspecified; I11.0 Hypertensive heart disease with heart failure; I50.9 Heart failure, unspecified; I48.91 Unspecified atrial fibrillation; J44.9 Chronic obstructive pulmonary disease, unspecified; Z95.5 Presence of coronary angioplasty implant and graft
CPT/HCPCS: 27096; G0260; J1040; Q9966

== ENCOUNTER → 2021-08-25 14:33 | Outpatient (POV) | payer MEDICARE, MEDICAID, SELFPAY ==
[2021-08-25 14:40] VITALS: BP 141/80; PULSE 63; RESP 18; O2SAT 97; BMI 30.5
--- NOTE | 2021-08-25 14:48 | HMH.PAINSOAP ---
[facility] Pain Management SOAP Note Subjective:: Patient is a 70-year-old white female who presents today for follow-up. She has been treated for sacroiliitis. She does report to have gotten excellent relief with the injection. She typically gets between 2 to 3 months of relief following the injections. She primarily has pain on the left side. She rates her pain a 0 out of 10 today. Review of Systems General: No recent weight changes, no fever, no sleep disturbances Respiratory: No cough, no shortness of air, no recurring pulmonary infections Cardiovascular/peripheral vascular: No chest pain, no palpitations, no edema, no shortness of breath Gastrointestinal: No new onset incontinence, normal bowel movements reported Genitourinary: No new onset incontinence Musculoskeletal: No pain at this time Psychiatric: [Normal mood/affect] Neurological: [Denies weakness in extremities], [denies balance issues] Objective:: Physical exam General: Alert and oriented x3, no acute distress, pleasant and cooperative, [on room air] Lungs: Respirations even and unlabored, symmetrical chest expansion Eyes: PERRL Musculoskeletal: Flexion and extension of [] [spine] nonguarded, strength in upper and lower extremities [5/5], normal gait noted Neurological: Speech clear, [mineralogy professor equal], no gross sensory deficit Assessment:: Sacroiliitis left Plan:: Patient is doing well following her injection. She would like to follow-up with us as needed. She has been instructed to contact clinic if she has any concerns for next visit. Patient has been instructed to contact the clinic with any concerns before the next appointment. Dr. Sharma has reviewed this note and agrees with this plan of care. This note was dictated using voice recognition software and make contain errors or omissions. [facility] History I have reviewed the patient's past medical history: Yes Medical History: Reports:: Arrhythmia, Atherosclerotic Heart Disease, Atrial Fibrillation, Congestive Heart Failure, Chronic Obstructive Pulmonary Disease (COPD), Coronary Artery Disease, Hyperlipidemia, Hypertension, Myocardial Infarction Denies:: Cancer, Diabetes Mellitus Type 1, Diabetes Mellitus Type 2, Internal Pacemaker, MRSA, Seizures *Have you ever received a pneumonia vaccine?: Yes *Have you received a flu vaccine this season?: Yes Other Medical History: Reports: Arthritis, Chemotherapy. Denies: Blood Transfusion Reaction Other Surgeries: Yes: CABG, Cardiac Catheterization, Cardiac Surgery, Colonoscopy, Colon Resection, Coronary Stent, Hysterectomy-Total, Hysterectomy-Partial, Open Heart Surgery, Other (cardioversionX2). No: Pacemaker Amputation: No Fractures: No - *Social History Smoking Status: Unknown if ever smoked Tobacco Type: cigarettes #Yrs smoked (if former smoker): 45 Alcohol Intake: never Substance Use Type: denies use *Occupational Status:: unemployed Housing: house Household Members: spouse *Travel in the last 8 weeks: None Family Hx:: Other
== END ==
PROVIDERS: Visit Provider Clinical Nurse Specialist Family Health
DX: M46.1 Sacroiliitis, not elsewhere classified (principal)
CPT/HCPCS: 99212; G0463

== ENCOUNTER → 2021-09-12 08:58 | Outpatient (CLI) | payer MEDICARE, MEDICAID, SELFPAY ==
[2021-09-12 09:59] LABS: Chloride 106 mmol/L (98-107); Potassium 4.7 mmoL/L (3.5-5.1); Sodium 141 mmol/L (136-145)
[2021-09-12 10:01] LABS: Alanine Aminotransferase 17 U/L (12-78); Aspartate Amino Transferase 26 U/L (14-36); Blood Urea Nitrogen 10 mg/dl (7-17); Estimated Glomerular Filt Rate 71 ml/min (>60); GFR (African American) 86 ML/MIN (>60)
[2021-09-12 10:02] LABS: Albumin Level 3.5 g/dl (3.5-5.0); Albumin/Globulin Ratio 1.3 (1.1-1.8); Alkaline Phosphatase 103 U/L (38-126); Anion Gap 10.7 mEq/L (5-15); Bilirubin,Total 0.5 mg/dl (0.2-1.3); Calcium 9.3 mg/dl (8.4-10.2); Carbon Dioxide 29 mmol/L (22.0-30.0); Globulin 2.7 g/dL (1.3-3.2); Glucose 114 mg/dl (74-100); Total Protein,Serum 6.2 g/dl (6.3-8.2)
== END ==
PROVIDERS: Visit Provider Nurse Practitioner Family
DX: E78.2 Mixed hyperlipidemia (principal)
CPT/HCPCS: 36415; 80053

== ENCOUNTER → 2021-09-13 12:58 | Outpatient (CLI) | payer MEDICARE, MEDICAID, SELFPAY ==
--- NOTE | 2021-09-13 13:02 | XR_ITS ---
PROCEDURE: XR CHEST 2V CLINICAL HISTORY: SOB COMPARISON: CT CT CHEST W CON from 12/10/2019 CR XR CHEST PORTABLE from 08/11/2020 CR XR CHEST PORTABLE from 08/15/2020 CR XR CHEST AP from 01/11/2021 FINDINGS: Prior CABG. Borderline cardiomegaly without failure with coronary artery stents and or calcification noted. The lungs are clear without infiltrates, suspicious nodules, or pleural effusions. No acute bony abnormalities. IMPRESSION: No acute findings. Dictated by: Zhao Paul MD 09/13/2021 13:59 Zhao Paul MD in [place] 09/13/2021 13:59
== END ==
PROVIDERS: PCP Nurse Practitioner Family; Visit Provider Nurse Practitioner Family
DX: R06.02 Shortness of breath (principal)
CPT/HCPCS: 71046

== ENCOUNTER → 2021-10-05 10:13 | Outpatient (CLI) | payer MEDICARE, MEDICAID, SELFPAY ==
[2021-10-05 13:45] LABS: Chol/HDL Ratio 4.2 (1-3.5); Cholesterol 226 mg/dl (140-200); HDL Cholesterol 54 mg/dl (40-60); Triglycerides 339 mg/dl (30-150); VLDL Cholesterol 68 mg/dL (0-40)
[2021-10-05 13:56] LABS: Direct LDL Cholesterol 89.17 mg/dL (100-129)
== END ==
PROVIDERS: Visit Provider Nurse Practitioner Family
DX: E78.2 Mixed hyperlipidemia (principal)
CPT/HCPCS: 36415; 80061

== ENCOUNTER → 2021-10-08 10:27 | Outpatient (CLI) | payer MEDICARE, MEDICAID, SELFPAY ==
[2021-10-08 10:47] LABS: Basophils # 0.1 K/mm3 (0-0.2); Basophils % 1.1 % (0.1-2.0); Eosinophils # 0.3 K/mm3 (0.0-0.4); Hematocrit 44.6 % (37.0-47.0); Hemoglobin 14.8 g/dL (12.2-16.2); Lymphocytes # 1.7 K/mm3 (0.7-4.5); Mean Corpuscular HGB Conc 33.2 g/dL (31.8-35.4); Mean Corpuscular Hemoglobin 31.7 pg (27.0-31.2); Mean Corpuscular Volume 95.5 fl (81-99); Mean Platelet Volume 8.3 fl (7.4-10.4); Monocytes # 0.5 K/mm3 (0.1-1.0); Monocytes % 7.6 % (1.7-9.3); Neutrophils # 3.6 K/mm3 (1.8-7.8); Neutrophils % 58.3 % (37.0-80.0); Platelet Count 355 K/mm3 (142-424); Red Blood Count 4.67 M/mm3 (4.20-5.40); Red Cell Distribution Width 14.3 % (11.5-17.5); White Blood Count 6.2 K/mm3 (4.8-10.8)
[2021-10-08 13:03] LABS: Alanine Aminotransferase 21 U/L (12-78); Albumin/Globulin Ratio 1.5 (1.1-1.8); Alkaline Phosphatase 100 U/L (38-126); Anion Gap 8.4 mEq/L (5-15); Aspartate Amino Transferase 38 U/L (14-36); Bilirubin,Total 0.6 mg/dl (0.2-1.3); Blood Urea Nitrogen 11 mg/dl (7-17); Calcium 9.5 mg/dl (8.4-10.2); Carbon Dioxide 28 mmol/L (22.0-30.0); Chloride 105 mmol/L (98-107); Estimated Glomerular Filt Rate 71 ml/min (>60); GFR (African American) 86 ML/MIN (>60); Globulin 2.7 g/dL (1.3-3.2); Glucose 103 mg/dl (74-100); Potassium 4.4 mmoL/L (3.5-5.1); Sodium 137 mmol/L (136-145); Total Protein,Serum 6.7 g/dl (6.3-8.2)
[2021-10-08 13:32] LABS: Thyroid Stimulating Hormone 1.47 uIU/mL (0.465-4.68)
[2021-10-08 13:50] LABS: Vitamin B12 962 pg/mL (239-931)
== END ==
PROVIDERS: Visit Provider Nurse Practitioner Family
DX: R53.83 Other fatigue (principal)
CPT/HCPCS: 36415; 80053; 82607; 82652; 84443; 85025

== ENCOUNTER 2021-11-04 09:55 | Day surgery (SDC) | payer MEDICARE, MEDICAID, SELFPAY ==
[2021-11-04 10:08] VITALS: BP 135/93; PULSE 61; RESP 18; TEMP 36.5; O2SAT 97; BMI 29.2
[2021-11-04 10:21] VITALS: BP 120/78; PULSE 54; RESP 18; O2SAT 96
[2021-11-04 10:25] VITALS: BP 120/78; PULSE 55; RESP 18; O2SAT 96
--- NOTE | 2021-11-04 10:27 | P.PCN_ITS ---
- Procedure Date: 11/04/21 Time: 10:27 Anesthesiologist:: Uriel Sharma MD Complications:: None Pre-procedure Diagnosis:: Sacroiliitis Post-procedure Diagnosis:: Same Indications for Procedure:: Patient is a pleasant 70-year-old white female who we are treating for left- sided hip pain. She is tender over her left SI joint. She does have a positive Angel Luis's test on the left side. Positive Johnny test on the left side. Positive SI joint compression test on the left side. Positive distraction test on the left side. We will plan on the left SI joint injection today. She does get good relief from these injections about 80 to 90% for several months. Procedure Details:: Left SI joint injection under fluoroscopy Informed consent was obtained and the risks and benefits of the procedure was explained to the patient. Patient was taken to the procedure room. Patient was placed prone on the procedure table. The left hip was prepped using ChloraPrep. The skin and subcutaneous tissues were anesthetized using lidocaine. I placed a 22-gauge spinal needle into the inferior aspect of the left SI joint. Needle placement was confirmed with dye. After this we injected 5 mL bupivacaine 0.25% and Depo-Medrol 40 mg into the left SI joint. The patient tolerated the procedure well with no complication. Plan and Disposition:: We will follow-up with her in 2 weeks. Will reevaluate symptoms at that time.
[2021-11-04 10:35] VITALS: BP 144/82; PULSE 51; RESP 20; O2SAT 94
== END 2021-11-04 10:35 | disposition home or self-care (01) ==
LOC: SC.PAINP 09:56
PROVIDERS: PCP Nurse Practitioner Family; Visit Provider Anesthesiology
DX: M46.1 Sacroiliitis, not elsewhere classified (principal); I25.2 Old myocardial infarction; I50.9 Heart failure, unspecified; I25.10 Atherosclerotic heart disease of native coronary artery without angina pectoris; E78.5 Hyperlipidemia, unspecified; I48.91 Unspecified atrial fibrillation; I11.0 Hypertensive heart disease with heart failure; J44.9 Chronic obstructive pulmonary disease, unspecified; Z99.81 Dependence on supplemental oxygen; G43.909 Migraine, unspecified, not intractable, without status migrainosus; F41.9 Anxiety disorder, unspecified; Z95.5 Presence of coronary angioplasty implant and graft
CPT/HCPCS: 27096; G0260; J1040; Q9966

== ENCOUNTER → 2021-11-21 10:38 | Outpatient (POV) | payer MEDICARE, MEDICAID, SELFPAY ==
--- NOTE | 2021-11-21 10:51 | P.CONS_ITS ---
[facility] Pain Management SOAP Note Subjective:: Patient is a pleasant 70-year-old female who comes in here today for follow-up after a left SI joint injection on November 04, 2021. Patient is currently being treated for sacroiliitis. Patient says that she gets an SI injection almost every 3 months and historically gets significant relief. After the procedure, patient says she had tremendous relief of about 90 to 100%. She rates her pain today as 0 out of 10. She denies any issues after the procedure. [facility] #[id number] with an active morphine equivalent of 0. Drug screens have been reviewed and appropriate. General: No recent weight changes, no fever, no sleep disturbances Respiratory: No cough, no shortness of air, no recurring pulmonary infections Cardiovascular/peripheral vascular: No chest pain, no palpitations, no edema, no shortness of breath Gastrointestinal: No new onset incontinence, normal bowel movements reported Genitourinary: No new onset incontinence Musculoskeletal: left hip pain Psychiatric: [Normal mood/affect] Neurological: [Denies weakness in extremities], [denies balance issues] No of Objective:: General: Alert and oriented x3, no acute distress, pleasant and cooperative, [on room air] Lungs: Respirations even and unlabored, symmetrical chest expansion Eyes: PERRL Musculoskeletal: improving left hip pain, +obdulio, +fortine, +compression and distraction Neurological: Speech clear, no gross sensory deficit Assessment:: Sacroiliitis Plan:: Patient had significant relief of about 90-100% after the left SI injection. She will call us if she needs another injection in about 2-3 months. Patient has been instructed to contact the clinic with any concerns before the next appointment. This note was dictated using voice recognition software and make contain errors or omissions. [facility] History Medical History: Reports:: Arrhythmia, Atherosclerotic Heart Disease, Atrial Fibrillation, Congestive Heart Failure, Chronic Obstructive Pulmonary Disease (COPD), Coronary Artery Disease, Hyperlipidemia, Hypertension, Myocardial Infarction Denies:: Cancer, Diabetes Mellitus Type 1, Diabetes Mellitus Type 2, Internal Pacemaker, MRSA, Seizures *Have you ever received a pneumonia vaccine?: No *Have you received a flu vaccine this season?: No Other Medical History: Reports: Arthritis, Chemotherapy. Denies: Blood Transfusion Reaction Other Surgeries: Yes: CABG, Cardiac Catheterization, Cardiac Surgery, Colonoscopy, Colon Resection, Coronary Stent, Hysterectomy-Total, Hysterectomy- Partial, Open Heart Surgery, Other (cardioversionX2). No: Pacemaker Amputation: No Fractures: No - *Social History Smoking Status: Unknown if ever smoked Tobacco Type: cigarettes #Yrs smoked (if former smoker): 45 Alcohol Intake: never Substance Use Type: denies use *Occupational Status:: retired Housing: house Household Members: spouse *Travel in the last 8 weeks: None Family Hx:: Other
[2021-11-21 10:53] VITALS: BP 112/82; PULSE 65; RESP 18; O2SAT 97
== END ==
PROVIDERS: Visit Provider Family Medicine
DX: M46.1 Sacroiliitis, not elsewhere classified (principal)
CPT/HCPCS: 99202; G0463

== ENCOUNTER 2022-01-20 10:31 | Day surgery (SDC) | payer MEDICARE, MEDICAID, SELFPAY ==
[2022-01-20 11:02] VITALS: BP 146/92; PULSE 65; RESP 20; TEMP 36.6; O2SAT 96; BMI 30.9
[2022-01-20 11:33] VITALS: BP 165/94; PULSE 61; RESP 18; O2SAT 96
[2022-01-20 11:34] VITALS: BP 162/92; PULSE 55; RESP 20; O2SAT 95
[2022-01-20 11:50] VITALS: BP 145/96; PULSE 65; RESP 20; O2SAT 96
--- NOTE | 2022-01-20 12:30 | HMH.PMPROC ---
- Procedure Date: 01/20/22 Time: 12:34 Anesthesiologist:: Jina Karimi MD Complications:: None Pre-procedure Diagnosis:: Left-sided sacroiliitis, left-sided hip pain, chronic low back pain Post-procedure Diagnosis:: Same Indications for Procedure:: Patient is a very pleasant 71-year-old white female who presents today with chronic low back pain and left-sided hip pain related to the above diagnosis. She has tried and failed conservative treatment including oral pain medications and home stretching program for greater than 6 weeks. She is previously undergone a left-sided SI joint injection on November 04, 2021 and typically gets about 90 to 100% pain relief for approximately 3 months. She states that her pain has since returned and she is requesting a repeat injection today. The plan for today is for the patient to undergo a repeat left-sided SI joint injection under fluoroscopy. Procedure Details:: Left SI joint injection under fluoroscopy Informed consent was obtained and the risks and benefits of the procedure was explained to the patient. Patient was taken to the procedure room. Patient was placed prone on the procedure table. The left hip was prepped using ChloraPrep. The skin and subcutaneous tissues were anesthetized using lidocaine. I placed a 22-gauge spinal needle into the inferior aspect of the left SI joint. Needle placement was confirmed with dye. After this we injected 5 mL bupivacaine 0.25% and Depo-Medrol 40 mg into the left SI joint. The patient tolerated the procedure well with no complication. Plan and Disposition:: We will follow-up with this patient in 2 weeks. Will reevaluate pain symptoms at that time.
== END 2022-01-20 11:50 | disposition home or self-care (01) ==
LOC: SC.PAINP 10:32
PROVIDERS: PCP Nurse Practitioner Family; Visit Provider Anesthesiology Pain Medicine
DX: M46.1 Sacroiliitis, not elsewhere classified (principal); M25.552 Pain in left hip; M54.50 Low back pain, unspecified; G89.29 Other chronic pain
CPT/HCPCS: 27096; G0260; J1040; Q9966

== ENCOUNTER → 2022-02-09 11:18 | Outpatient (POV) | payer MEDICARE, MEDICAID, SELFPAY ==
[2022-02-09 11:39] VITALS: BP 134/89; PULSE 76; RESP 20; TEMP 36.8; O2SAT 100
--- NOTE | 2022-02-09 12:56 | HMH.PAINSOAP ---
[facility] Pain Management SOAP Note Subjective:: Patient is a pleasant 71-year-old female who is here for a follow up after a left SI injection on January 20, 2022. Patient is currently being treated for left-sided sacroiliitis, left-sided hip pain, chronic low back pain. After the procedure, patients reports significant relief of about 90 to 100% relief and rates pain today at 0 out of 10. Patient denies any issues after the procedure. ORT score is low risk. Donald number [id number] with an active morphine equivalent 0. Drug screens have been reviewed and appropriate. General: No recent weight changes, no fever, no sleep disturbances Respiratory: No cough, no shortness of air, no recurring pulmonary infections Cardiovascular/peripheral vascular: No chest pain, no palpitations, no edema, no shortness of breath Gastrointestinal: No new onset incontinence, normal bowel movements reported Genitourinary: No new onset incontinence Musculoskeletal: Improving left hip pain Psychiatric: [Normal mood/affect] Neurological: [Denies weakness in extremities], [denies balance issues] Objective:: General: Alert and oriented x3, no acute distress, pleasant and cooperative, [on room air] Lungs: Respirations even and unlabored, symmetrical chest expansion Eyes: PERRL Musculoskeletal: Increased range of motion of the left hip;Flexion and extension of [lumbar] [spine] somewhat guarded secondary to pain Neurological: Speech clear, no gross sensory deficit Assessment:: Left sacroiliitis Chronic low back pain Plan:: Patient had significant relief of about 90 to 100% after her left SI injection. She reports no issues with this injection. We will follow with this patient 3 months. Patient has been instructed to contact the clinic with any concerns before the next appointment. Dr. Sharma has reviewed this note and agrees with this plan of care. This note was dictated using voice recognition software and make contain errors or omissions. [facility] History Medical History: Reports:: Arrhythmia, Atherosclerotic Heart Disease, Atrial Fibrillation, Congestive Heart Failure, Chronic Obstructive Pulmonary Disease (COPD), Coronary Artery Disease, Hyperlipidemia, Hypertension, Myocardial Infarction Denies:: Cancer, Diabetes Mellitus Type 1, Diabetes Mellitus Type 2, Internal Pacemaker, MRSA, Seizures *Have you ever received a pneumonia vaccine?: Yes *Have you received a flu vaccine this season?: Yes Other Medical History: Reports: Arthritis, Chemotherapy. Denies: Blood Transfusion Reaction Other Surgeries: Yes: CABG, Cardiac Catheterization, Cardiac Surgery, Colonoscopy, Colon Resection, Coronary Stent, Hysterectomy-Total, Hysterectomy-Partial, Open Heart Surgery, Other (cardioversionX2). No: Pacemaker Amputation: No Fractures: No - *Social History Smoking Status: Unknown if ever smoked Tobacco Type: cigarettes #Yrs smoked (if former smoker): 45 Alcohol Intake: never Substance Use Type: denies use *Occupational Status:: retired Housing: house Household Members: spouse *Travel in the last 8 weeks: None Family Hx:: No significant family history
== END ==
PROVIDERS: Visit Provider Student in an Organized Health Care Education/Training Program
DX: M46.1 Sacroiliitis, not elsewhere classified (principal); M54.50 Low back pain, unspecified; G89.29 Other chronic pain
CPT/HCPCS: 99212; G0463

== ENCOUNTER → 2022-03-28 08:39 | Outpatient (CLI) | payer MEDICARE, MEDICAID, SELFPAY ==
[2022-03-28 10:39] LABS: Chol/HDL Ratio 5.2 (1-3.5); Cholesterol 281 mg/dl (140-200); HDL Cholesterol 54 mg/dl (40-60); Triglycerides 279 mg/dl (30-150); VLDL Cholesterol 56 mg/dL (0-40)
[2022-03-28 10:50] LABS: Direct LDL Cholesterol 125.38 mg/dL (100-129)
== END ==
PROVIDERS: Visit Provider Nurse Practitioner Family
DX: E78.2 Mixed hyperlipidemia (principal)
CPT/HCPCS: 36415; 80061

== ENCOUNTER → 2022-05-18 09:47 | Outpatient (POV) | payer MEDICARE, SELFPAY ==
--- NOTE | 2022-05-18 10:45 | P.CONS_ITS ---
[facility] Pain Management SOAP Note Subjective:: Patient is a pleasant 71-year-old white female who is here for 3-month follow-up after a left SI injection on January 20, 2022. Patient is currently being treated for left-sided sacroiliitis, left-sided hip pain, chronic low back pain. Patient states that her pain is a 0 out of 10 today. She reports that the injection gave her significant relief of 100% overall and denies any problems following the procedure. Her Donald number is [id number]. It has been reviewed and is appropriate. Review of Systems: General: No recent weight changes, no fever, no sleep disturbances Respiratory: No cough, no shortness of air, no recurring pulmonary infections Cardiovascular/peripheral vascular: No chest pain, no palpitations, no edema, no shortness of breath Gastrointestinal: No new onset incontinence, normal bowel movements reported Genitourinary: No new onset incontinence Musculoskeletal: Low back pain Psychiatric: [Normal mood/affect] Neurological: [Denies weakness in extremities], [denies balance issues] Objective:: Physical Exam: General: Alert and oriented x3, no acute distress, pleasant and cooperative Lungs: Respirations even and unlabored, symmetrical chest expansion Eyes: PERRL Musculoskeletal: Flexion and extension of lumbar [spine] somewhat guarded seco ndary to pain, [antalgic gait noted] Neurological: Speech clear, no gross sensory deficit Assessment:: Patient is being treated for left-sided sacroiliitis, left-sided hip pain, chronic low back pain Plan:: Patient states she has continued to have significant relief of 100% from her previous left SI injection. she reports no issues with the injection. Patient will return to clinic in 3 months for follow-up. If at the upcoming follow up visit she continues to have minimal to no pain we will schedule her for a 6- month follow-up. Patient has been instructed to contact the clinic with any concerns before the next appointment. Dr. Sharma has reviewed this note and agrees with this plan of care. This note was dictated using voice recognition software and make contain errors or omissions. [facility] History I have reviewed the patient's past medical history: Yes Medical History: Reports:: Arrhythmia, Atherosclerotic Heart Disease, Atrial Fibrillation, Congestive Heart Failure, Chronic Obstructive Pulmonary Disease (COPD), Coronary Artery Disease, Hyperlipidemia, Hypertension, Myocardial Infarction Denies:: Cancer, Diabetes Mellitus Type 1, Diabetes Mellitus Type 2, Internal Pacemaker, MRSA, Seizures *Have you ever received a pneumonia vaccine?: Yes *Have you received a flu vaccine this season?: Yes Other Medical History: Reports: Arthritis, Chemotherapy. Denies: Blood Transfusion Reaction Other Surgeries: Yes: CABG, Cardiac Catheterization, Cardiac Surgery, Colonoscopy, Colon Resection, Coronary Stent, Hysterectomy-Total, Hysterectomy- Partial, Open Heart Surgery, Other (cardioversionX2). No: Pacemaker Amputation: No Fractures: No - *Social History Smoking Status: Unknown if ever smoked Tobacco Type: cigarettes #Yrs smoked (if former smoker): 45 Alcohol Intake: never Substance Use Type: denies use *Occupational Status:: retired Housing: house Household Members: spouse *Travel in the last 8 weeks: Inside the [place] Family Hx:: No significant family history
[2022-05-18 11:00] VITALS: BP 162/98; PULSE 94; RESP 20; O2SAT 95; BMI 31.7
== END ==
PROVIDERS: Visit Provider Student in an Organized Health Care Education/Training Program
DX: M46.1 Sacroiliitis, not elsewhere classified (principal); M54.50 Low back pain, unspecified; G89.29 Other chronic pain
CPT/HCPCS: 99212; G0463

== ENCOUNTER 2022-07-10 21:00 | Emergency (ER) | payer MEDICARE, SELFPAY ==
[2022-07-10 21:02] VITALS: BP 152/125; PULSE 78; RESP 20; TEMP 36.8; O2SAT 96; BMI 30.9
--- NOTE | 2022-07-10 21:11 | ECG_ITS ---
APPROVED REPORT Exam: Resting ECG HR:73 bpm ECG Measurements Heart Rate 73 AXES PA 177 P 30 QRSd 104 QRS -1 QT 413 T -25 QTc 438 Conclusion SINUS RHYTHM WITH MARKED SINUS ARRHYTHMIA MINIMAL VOLTAGE CRITERIA FOR LVH, CONSIDER NORMAL VARIANT [MEETS CRITERIA IN ONE OF: R(aVL), S(V1), R(V5), R(V5/V6)+S(V1)] ST DEVIATION AND MODERATE T-WAVE ABNORMALITY, CONSIDER ANTEROLATERAL ISCHEMIA [-0.1+ mV T-WAVE IN V3-V6] ST DEVIATION AND MODERATE T-WAVE ABNORMALITY, CONSIDER INFERIOR ISCHEMIA [-0.1+ mV T-WAVE IN II/aVF] ABNORMAL ECG INTERPRETATION BASED ON A DEFAULT AGE OF 40 YEARS UNCONFIRMED REPORT Electronically signed by : Michael Baez MD 07/11/2022 13:51:06
--- NOTE | 2022-07-10 21:24 | XR_ITS ---
PROCEDURE INFORMATION: Exam: XR Chest Exam date and time: 07/10/2022 9:35 PM Age: 71 years old Clinical indication: Chest wall pain; Prior surgery; Additional info: Rib pain TECHNIQUE: Imaging protocol: Radiologic exam of the chest. Views: 2 views. COMPARISON: CR XR CHEST 2V 09/13/2021 1:35 PM FINDINGS: Lungs: No focal consolidation. Pleural spaces: No pleural effusion. No pneumothorax. Heart/Mediastinum: Unremarkable cardiomediastinal silhouette. Bones/joints: No acute osseous findings. IMPRESSION: No focal consolidation.
--- NOTE | 2022-07-10 21:38 | CT_ITS ---
PROCEDURE INFORMATION: Exam: CTA Chest With Contrast Exam date and time: 07/10/2022 9:52 PM Age: 71 years old Clinical indication: Chest wall pain and left-sided; Prior surgery; Additional info: Rib pain TECHNIQUE: Imaging protocol: Computed tomographic angiography of the chest with contrast. 3D rendering (Not supervised by radiologist): MIP and/or 3D reconstructed images were created by the technologist. Radiation optimization: All CT scans at this facility use at least one of these dose optimization techniques: automated exposure control; mA and/or kV adjustment per patient size (includes targeted exams where dose is matched to clinical indication); or iterative reconstruction. Contrast material: ISOVUE; Contrast volume: 70 ml; Contrast route: INTRAVENOUS (IV); COMPARISON: CT CHEST W CON 12/10/2019 1:50 PM FINDINGS: Pulmonary arteries: The study is somewhat limited secondary to respiratory motion artifact without definite evidence of pulmonary embolism. Aorta: Atherosclerotic calcifications in the aorta. Lungs: Nonspecific bibasilar opacities, favoring atelectasis or pneumonia. Several calcified lung granulomas. Pleural spaces: No pneumothorax. No pleural effusion. Heart: Coronary artery disease. Cardiomegaly. Lymph nodes: No axillary or intrathoracic lymphadenopathy. Diaphragm: Small hiatal hernia. Gallbladder and bile ducts: Cholelithiasis. Spleen: Several calcified granulomas in the spleen. Adrenal glands: Mild left adrenal thickening. Bones/joints: Median sternotomy. Stable moderate compression deformity of the midthoracic vertebral body. Soft tissues: No discreet soft tissue mass. IMPRESSION: 1. The study is somewhat limited secondary to respiratory motion artifact without definite evidence of pulmonary embolism. 2. Nonspecific bibasilar opacities, favoring atelectasis or pneumonia. Recommend imaging follow-up until complete resolution.
--- NOTE | 2022-07-10 21:38 | HMH.EDGENADL ---
ED Disposition Clinical Impression: Acute costochondritis Cholelithiasis Qualifiers: Cholelithiasis location: gallbladder Cholecystitis presence: without cholecystitis Biliary obstruction: without biliary obstruction Qualified Code(s): K80.20 - Calculus of gallbladder without cholecystitis without obstruction Disposition: Home, Self-Care Condition on Discharge: Good Instructions: DI for Acute Pain -- Adult Additional Instructions: call pcp in am Referrals: Kalpana Mcguire APRN [Primary Care Provider] - - Critical Care Critical Care Time: No Attestation: On 07/10/22, the high probability of a clinically significant, sudden or life threatening deterioration of the following system(s) required my full and direct attention, intervention and personal management. The time I documented below is in addition to time spent performing reported procedures but includes the following listed in this critical care notation. Medical Decision Making - Medical Records Medical records reviewed: Yes: I reviewed the patient's medical records. - Donald Inquiry Pt receiving controlled substance: No Vital Signs: 07/10/22 21:02 07/10/22 23:22 Temperature 98.3 F 98.1 F Temperature Source Oral Oral Pulse Rate 61 Pulse Rate [Left Radial] 78 Respiratory Rate 20 16 Blood Pressure 150/91 H Blood Pressure [Right Arm] 152/125 H Blood Pressure Mean [Right Arm] 134 02 Sat by Pulse Oximetry 96 Oxygen Delivery Method Room Air Room Air - Lab Data Lab results reviewed: Yes: I reviewed the patient's lab results. Lab Results 07/10/22 21:24: WBC 10.3, RBC 4.63, Hgb 14.2, Hct 44.5, MCV 96.2, MCH 30.7, MCHC 31.9, RDW 13.9, Plt Count 396, MPV 7.7, Neut % (Auto) 81.2 H, Lymph % (Auto) 13.9, [place] % (Auto) 3.2, Eos % (Auto) 1.2, Baso % (Auto) 0.5, Neut # (Auto) 8.4 H, Lymph # (Auto) 1.4, [place] # (Auto) 0.3, Eos # (Auto) 0.1, Baso # (Auto) 0.1, ESR 11 07/10/22 21:24: Sodium 134 L, Potassium 4.6, Chloride 104, Carbon Dioxide 26, Anion Gap 8.6, BUN 15, Creatinine 0.80, Estimated Creat Clear 67, Estimated GFR 71, Est GFR ( Amer) 86, Glucose 100, Calcium 9.2, Total Bilirubin 0.4, AST 38 H, ALT 30, Alkaline Phosphatase 105, Total Protein 6.6, Albumin 3.8, Globulin 2.8, Albumin/Globulin Ratio 1.4 07/10/22 21:24: C-Reactive Protein 10.7 H, Amylase 38, Procalcitonin 0.058 07/10/22 21:24: Troponin I < 0.01, Lipase 100 Result diagrams: 07/10/22 21:24 07/10/22 21:24 Orders (Tests/Meds): ED MEDICATIONS Generic Name Dose Route Start Last Admin Trade Name Freq PRN Reason Stop Dose Admin Sodium Chloride 1,000 mls @ 999 mls/hr 07/10/22 21:30 07/10/22 22:10 Sod Chlor 0.9% 1000ml Bag IV 07/10/22 22:30 999 mls/hr .Q1H1M CORDELIA Administration Sodium Chloride 10 ml 07/10/22 21:27 Sodium Chloride 0.9% 10ml Flush Syringe IV 08/09/22 21:26 NEEDED PRN Maintain IV Site Discontinued Medications Generic Name Dose Route Start Last Admin Trade Name Freq PRN Reason Stop Dose Admin Hydromorphone HCl 1 mg 07/10/22 22:54 07/10/22 23:16 Hydromorphone 2mg/Ml Syringe IV 07/10/22 22:55 1 mg ONCE ONE Administration Iopamidol 70 ml 07/10/22 22:07 07/10/22 22:09 Iopamidol-370 (76%);100ml Bottle IV 07/10/22 22:08 70 ml ONCE ONE Administration Ketorolac Tromethamine 30 mg 07/10/22 21:42 07/10/22 23:29 Ketorolac 30mg/Ml Vial IV 07/10/22 21:43 Not Given ONCE ONE Ketorolac Tromethamine 15 mg 07/10/22 21:48 07/10/22 22:11 Ketorolac 30mg/Ml Vial IV 07/10/22 21:49 15 mg ONCE ONE Administration Methylprednisolone Sodium Succinate 125 mg 07/10/22 21:43 07/10/22 22:10 Methylprednisolone Sod Succ 125mg Vial IV 07/10/22 21:44 125 mg ONCE ONE Administration Sodium Chloride 50 ml 07/10/22 22:07 07/10/22 22:09 0.9 % Sodium Chloride 50 Ml Vial IV 07/10/22 22:08 50 ml ONCE ONE Administration Sodium Chloride 10 ml 07/10/22 22:07 07/10/22 22:09 Sodium Chloride 0.9% 10ml Syr (
[2022-07-10 21:45] LABS: Basophils # 0.1 K/mm3 (0-0.2); Basophils % 0.5 % (0.1-2.0); Eosinophils # 0.1 K/mm3 (0.0-0.4); Eosinophils % 1.2 % (0.1-12.0); Hematocrit 44.5 % (37.0-47.0); Hemoglobin 14.2 g/dL (12.2-16.2); Lymphocytes # 1.4 K/mm3 (0.7-4.5); Lymphocytes % 13.9 % (10-50); Mean Corpuscular HGB Conc 31.9 g/dL (31.8-35.4); Mean Corpuscular Hemoglobin 30.7 pg (27.0-31.2); Mean Corpuscular Volume 96.2 fl (81-99); Mean Platelet Volume 7.7 fl (7.4-10.4); Monocytes # 0.3 K/mm3 (0.1-1.0); Monocytes % 3.2 % (1.7-9.3); Neutrophils # 8.4 K/mm3 (1.8-7.8); Neutrophils % 81.2 % (37.0-80.0); Platelet Count 396 K/mm3 (142-424); Red Blood Count 4.63 M/mm3 (4.20-5.40); Red Cell Distribution Width 13.9 % (11.5-17.5); White Blood Count 10.3 K/mm3 (4.8-10.8)
[2022-07-10 21:47] LABS: Alanine Aminotransferase 30 U/L (12-78); Albumin Level 3.8 g/dl (3.5-5.0); Albumin/Globulin Ratio 1.4 (1.1-1.8); Alkaline Phosphatase 105 U/L (38-126); Anion Gap 8.6 mEq/L (5-15); Aspartate Amino Transferase 38 U/L (14-36); Bilirubin,Total 0.4 mg/dl (0.2-1.3); Blood Urea Nitrogen 15 mg/dl (7-17); Calcium 9.2 mg/dl (8.4-10.2); Carbon Dioxide 26 mmol/L (22.0-30.0); Chloride 104 mmol/L (98-107); Creatinine Clearance Estimated 67 mL/min (50-200); Estimated Glomerular Filt Rate 71 ml/min (>60); GFR (African American) 86 ML/MIN (>60); Globulin 2.8 g/dL (1.3-3.2); Glucose 100 mg/dl (74-100); Potassium 4.6 mmoL/L (3.5-5.1); Sodium 134 mmol/L (136-145); Total Protein,Serum 6.6 g/dl (6.3-8.2)
[2022-07-10 21:49] LABS: Amylase 38 U/L (30-110); Lipase 100 U/L (23-300)
[2022-07-10 21:55] LABS: C-Reactive Protein 10.7 mg/L (0-4)
[2022-07-10 22:00] LABS: Troponin I < 0.01 ng/ml (0.00-0.034)
[2022-07-10 22:08] LABS: Procalcitonin 0.058 ng/mL (0.0-2.0)
[2022-07-10 22:26] LABS: Erythrocyte Sedimentation Rate 11 mm/hr (0-30)
[2022-07-10 23:22] VITALS: BP 150/91; PULSE 61; RESP 16; TEMP 36.7; O2SAT 96
== END 2022-07-10 23:39 | disposition home or self-care (01) ==
PROVIDERS: Emergency Provider Emergency Medicine; PCP Nurse Practitioner Family
DX: M94.0 Chondrocostal junction syndrome [Tietze] (principal); K80.20 Calculus of gallbladder without cholecystitis without obstruction
CPT/HCPCS: 71046; 71275; 80053; 82150; 83690; 84145; 84484; 85025; 85651; 86140; 93005; 96361; 96374; 96375; 99285; Q9967

== ENCOUNTER 2022-07-19 16:00 | Outpatient (RCR) | payer MEDICARE, MEDICAID, SELFPAY ==
--- NOTE | 2022-07-13 10:56 | HMH.PTOPEV ---
PT Outpatient Evaluation Rehab PT Outpatient Evaluation Start: 07/13/22 10:04 Freq: Status: Active Protocol: Document 07/13/22 10:37 CECILY (Rec: 07/13/22 10:56 CECILY [id number]) Electronically Signed By Miguel Cox, PT 07/13/22 10:37 Outpatient Therapy Subjective History Subjective History Patient is a 71 year old female presenting to outpatient PT with reports of L sided anterolateral/ posterior rib pain between segements T5-T10. Initial injury occurred while performing a reaching/pulling activity with the left hand while having the L foot elevated approx 1 week ago. Patient reports that she felt/ head an audible pop prior to onset of pain. No recent imaging to report. Comorbidities include hx of COPD, cardio bypass, multiple SC's, HTN, HL and B TKA. Chief Complaint Pain,Spasms Symptom Type Ache,Throb Symptoms Relieved By Rest/Positioning,Heat,Ice,OTC Meds Symptoms Aggravated By Bending/Stooping,Physical Activity,Lifting Prior Functional Limitations None Current Functional Limitations Reaching,Lifting,Housework, Dressing,Sleeping,Standing, Recreation Activity,Walking, Bending/Stooping Symptom Description Constant but Variable Level of pain today (0-10) 8 Pain scale - at its best (0-10) 7 Pain scale - at its worst (0-10) 10 Cervical Eval Palpation Cervical Muscles L Thoracic Paraspinals Cervical/Thoracic Palpation Findings Tenderness,Spasm Posture Head/C-Spine Posture Sitting Position Extended Head/C-Spine Posture Standing Position Extended Flexibility Deficits Pectoralis Minor Muscle Length (R) Moderate Tightness,(L) Moderate Tightness Passive Joint Mobility Cervical PIVM WNL: R OA L OA R AA L AA R C2/3 L C2/3 R C3/4 L C3/4 R C4/5 L C4/5
--- NOTE | 2022-07-19 16:16 | XR_ITS ---
PROCEDURE INFORMATION: Exam: XR Thoracic Spine Exam date and time: 07/19/2022 5:00 PM Age: 71 years old Clinical indication: Pain in thoracic spine; Additional info: Thoracic pain TECHNIQUE: Imaging protocol: Radiologic exam of the thoracic spine. Views: 3 views. COMPARISON: CR XR CHEST 2V 07/10/2022 9:35 PM FINDINGS: Bones/joints: Generalized osteopenia. Compression fracture deformity T7 vertebral body, age indeterminate. Soft tissues: Unremarkable. IMPRESSION: 1. Generalized osteopenia. 2. Compression fracture deformity T7 vertebral body, age indeterminate.
== END 2022-07-19 16:05 | disposition home or self-care (01) ==
LOC: PT 16:00
PROVIDERS: PCP Nurse Practitioner Family; Visit Provider Nurse Practitioner Family
DX: R07.81 Pleurodynia (principal)
CPT/HCPCS: 72072; 97010; 97110; 97140; 97163

== ENCOUNTER → 2022-07-19 16:58 | Outpatient (CLI) | payer MEDICARE, MEDICAID, SELFPAY | PROVIDERS: PCP Nurse Practitioner Family; Visit Provider Nurse Practitioner Family | DX: M54.6 Pain in thoracic spine (principal) ==

== ENCOUNTER 2022-10-12 09:18 | Emergency (ER) | payer MEDICARE, MEDICAID, SELFPAY ==
[2022-10-12] VITALS (7 sets, daily range): BP systolic 105–155; BP diastolic 86–94; PULSE 80–86; RESP 16–22; TEMP 36.8; O2SAT 92–96; BMI 31.7
--- NOTE | 2022-10-12 09:22 | ECG_ITS ---
APPROVED REPORT Exam: Resting ECG HR:84 bpm ECG Measurements Heart Rate 84 AXES AZ 171 P 77 QRSd 132 QRS -12 QT 441 T -82 QTc 482 Conclusion SINUS RHYTHM WITH SINUS ARRHYTHMIA INTRAVENTRICULAR CONDUCTION DELAY [130+ ms QRS DURATION] ABNORMAL ECG UNCONFIRMED REPORT Electronically signed by : Michael Baez MD 10/12/2022 21:14:57
--- NOTE | 2022-10-12 09:28 | XR_ITS ---
FINAL REPORT CLINICAL HISTORY: pneumonia vs CHF exacerbation COMPARISON: June 2022 FINDINGS: There is mild cardiomegaly. Multiple sternotomy wires are present. The aorta is unfolded. There are mild chronic changes in the lung bases. There is no acute cardiopulmonary process. There is no pleural effusion. There is no pneumothorax. The bony thorax is intact. IMPRESSION: No acute cardiopulmonary process. Reviewed, Interpreted and Dictated by Luciano Apple MD Transcribed by Joe Sosa Authenticated and [facility]
--- NOTE | 2022-10-12 09:31 | HMH.EDGENADL ---
Discharge Plan Disposition Patient Disposition: Home, Self-Care Condition: Good Prescriptions Prescriptions: New prednisone 50 mg tablet 50 mg PO DAILY 5 Days Qty: 5 0RF doxycycline hyclate 100 mg tablet 100 mg PO BID 5 Days Qty: 10 0RF No Action Repatha SureClick 140 mg/mL pen injector 140 mg SQ Q2W escitalopram oxalate 20 mg tablet 20 mg PO DAILY temazepam 15 mg capsule 15 mg PO HSP PRN (Reason: Sleep) Eliquis 5 mg tablet 5 mg PO BID Trelegy Ellipta 100-62.5-25 mcg blister with device 1 puff IH DAILY famotidine [Pepcid] 20 mg tablet 20 mg PO BID aspirin [Adult Low Dose Aspirin] 81 mg tablet,delayed release (DR/EC) 81 mg PO DAILY spironolactone 25 mg tablet 25 mg PO DAILY Qty: 90 1RF furosemide 40 mg tablet 40 mg PO DAILY Qty: 90 1RF clopidogrel 75 MG tablet 75 mg PO DAILY bisoprolol fumarate 5 MG tablet See Rx Instructions .Route .COMPLEX Rx Instructions: TAKE ONE TABLET BY MOUTH ONCE A DAY bupropion HCl 300 MG tablet extended release 24 hr 300 mg PO DAILY zinc gluconate 50 MG tablet 250 mg PO DAILY L.acidoph, paracasei,B. lactis 1 EACH capsule 1 each PO DAILY atorvastatin 80 MG tablet 80 mg PO DAILY ropinirole 1 MG tablet 2 mg PO HS omeprazole 40 MG capsule,delayed release(DR/EC) 40 mg PO DAILY losartan 25 MG tablet 25 mg PO DAILY cholecalciferol (vitamin D3) 1,250 MCG capsule 50,000 unit PO WEEKLY cholecalciferol (vitamin D3) 50 MCG tablet 2,000 unit PO DAILY ipratropium-albuterol 120 PUFF mist 2 puff IH QID Clinical Impressions Clinical Impression: COPD exacerbation Instructions Patient Instructions: DI for Chronic Obstructive Pulmonary Disease Discharge ED Provider: Ac Caraballo General Adult HPI General Chief complaint: Shortness of Breath/Dyspnea Stated complaint: Shortness of Breath Time Seen by Provider: 10/12/22 09:20 History of Present Illness HPI narrative: Patient is a 71-year-old female with a past medical history of atrial fibrillation, shortness of breath, COPD, hypertension, hyperlipidemia, CAD who presents with concern for shortness of breath. She states that over the last week she is gotten progressively more short of breath. She said that she had some abnormal sputum production a few days ago but has since slowed down because she feels like she cannot cough it up anymore. She says that she is unable to lie flat and is actually sleeping almost upright. She states that she does have oxygen at home that she has been wearing intermittently. She says at rest she feels okay but if she gets up and moves around her symptoms get substantially worse. Denies any chest pain. Denies any nausea or vomiting. Denies any fever or chills. Related Data Home Medications Medication Instructions Recorded Confirmed apixaban 5 mg tablet (Eliquis) 5 mg PO BID Blood thinner 12/19/18 02/09/22 fluticasone fur. 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 lactis 10 1 each PO DAILY Diet supplement 08/11/20 02/09/22 billion cell capsule zinc gluconate 50 mg tablet 250 mg PO DAILY vitamins 08/11/20 02/09/22 atorvastatin 80 mg tablet 80 mg PO DAILY Cholesterol 08/12/20 02/09/22 cholecalciferol (vitamin D3) 1,250 50,000 unit PO WEEKLY Suppl
[2022-10-12 09:42] LABS: Basophils # 0.1 K/mm3 (0-0.2); Eosinophils # 0.8 K/mm3 (0.0-0.4); Eosinophils % 12.5 % (0.1-12.0); Hematocrit 42.1 % (37.0-47.0); Hemoglobin 13.7 g/dL (12.2-16.2); Lymphocytes # 1.6 K/mm3 (0.7-4.5); Lymphocytes % 26.3 % (10-50); Mean Corpuscular HGB Conc 32.6 g/dL (31.8-35.4); Mean Corpuscular Hemoglobin 31.4 pg (27.0-31.2); Mean Corpuscular Volume 96.1 fl (81-99); Mean Platelet Volume 8.2 fl (7.4-10.4); Monocytes # 0.3 K/mm3 (0.1-1.0); Monocytes % 5.5 % (1.7-9.3); Neutrophils # 3.4 K/mm3 (1.8-7.8); Neutrophils % 54.7 % (37.0-80.0); Platelet Count 336 K/mm3 (142-424); Red Blood Count 4.37 M/mm3 (4.20-5.40); Red Cell Distribution Width 14.8 % (11.5-17.5); White Blood Count 6.2 K/mm3 (4.8-10.8)
[2022-10-12 09:51] LABS: Coronavirus 19, PCR Not Detected (NotDetected); Influenza A, PCR Not Detected (NotDetected); Influenza B, PCR Not Detected (NotDetected)
[2022-10-12 09:56] LABS: Alanine Aminotransferase 22 U/L (12-78); Albumin Level 4.3 g/dl (3.5-5.0); Albumin/Globulin Ratio 1.5 (1.1-1.8); Alkaline Phosphatase 96 U/L (38-126); Anion Gap 13.6 mEq/L (5-15); Aspartate Amino Transferase 43 U/L (14-36); Bilirubin,Total 0.7 mg/dl (0.2-1.3); Blood Urea Nitrogen 12 mg/dl (7-17); Calcium 9.5 mg/dl (8.4-10.2); Carbon Dioxide 27 mmol/L (22.0-30.0); Chloride 105 mmol/L (98-107); Creatinine Clearance Estimated 69 mL/min (50-200); Estimated Glomerular Filt Rate 62 ml/min (>60); GFR (African American) 75 ML/MIN (>60); Globulin 2.8 g/dL (1.3-3.2); Glucose 106 mg/dl (74-100); Potassium 3.6 mmoL/L (3.5-5.1); Sodium 142 mmol/L (136-145); Total Protein,Serum 7.1 g/dl (6.3-8.2)
[2022-10-12 10:01] LABS: C-Reactive Protein 4.7 mg/L (0-4)
[2022-10-12 10:10] LABS: NT Pro Brain Natriuretic Pep. 640 pg/mL (0-125)
[2022-10-12 10:13] LABS: Troponin I < 0.01 ng/ml (0.00-0.034)
[2022-10-12 10:15] LABS: Procalcitonin 0.055 ng/mL (0.0-2.0)
--- NOTE | 2022-10-12 10:22 | PC.NURSE ---
Updated pt. Call light within reach. No concerns voiced at this time.
--- NOTE | 2022-10-12 11:33 | INFXCTL.NOTE ---
Updated pt. Daughter at bedside. Call light within reach.
== END 2022-10-12 11:47 | disposition home or self-care (01) ==
PROVIDERS: Emergency Provider Student in an Organized Health Care Education/Training Program; PCP Nurse Practitioner Family
DX: J44.1 Chronic obstructive pulmonary disease with (acute) exacerbation (principal); Z86.16 Personal history of COVID-19; I10 Essential (primary) hypertension; E78.5 Hyperlipidemia, unspecified; Z99.81 Dependence on supplemental oxygen; I25.10 Atherosclerotic heart disease of native coronary artery without angina pectoris; I48.91 Unspecified atrial fibrillation
CPT/HCPCS: 71045; 80053; 83880; 84145; 84484; 85025; 86140; 93005; 94640; 96374; 99285; C9803; U0003; U0005

== ENCOUNTER 2022-10-15 22:56 | Inpatient (IN) | payer MEDICARE, MEDICAID, SELFPAY ==
--- NOTE | 2022-10-15 | ECG_ITS ---
APPROVED REPORT Exam: Resting ECG HR:76 bpm ECG Measurements Heart Rate 76 AXES OK 161 P 86 QRSd 99 QRS 63 QT 385 T 257 QTc [address] DEVIATION AND MODERATE T-WAVE ABNORMALITY, CONSIDER ANTEROLATERAL ISCHEMIA [-0.1+ mV T-WAVE IN V3-V6] ST DEVIATION AND MODERATE T-WAVE ABNORMALITY, CONSIDER INFERIOR ISCHEMIA [-0.1+ mV T-WAVE IN II/aVF] ABNORMAL ECG UNCONFIRMED REPORT Electronically signed by : Michael Baez MD 10/16/2022 19:45:42
[2022-10-15 22:56] VITALS: BP 153/100; PULSE 74; RESP 20; TEMP 37.2; O2SAT 93; BMI 30.9
[2022-10-15 23:12] LABS: ABG Base Excess 2.1 mmol/L (-2.4-2.3); ABG HCO3 26.4 mmhg (22.0-26.0); ABG Oxygen Saturation 93 % (90-100); ABG PH 7.43 mmol/L (7.35-7.45); ABG PO2 63.4 mmhg (80-100); ABG TCO2 27.7 mmhg (23-27); Allen's Test Y; Oxygen 2 %
[2022-10-15 23:13] LABS: Source Right Radial
--- NOTE | 2022-10-15 23:20 | XR_ITS ---
PROCEDURE INFORMATION: Exam: XR Chest Exam date and time: 10/15/2022 11:25 PM Age: 71 years old Clinical indication: Shortness of breath; Prior surgery; Surgery date: 6+ months; Surgery type: Open heart; Additional info: Short of breath TECHNIQUE: Imaging protocol: Radiologic exam of the chest. Views: 2 views. COMPARISON: CR XR CHEST PORTABLE 10/12/2022 9:59 AM FINDINGS: Lungs: Mild hyperexpansion and hyperlucency with mild diaphragmatic flattening suggesting possible COPD. Mild central vascular congestion. No gross pulmonary infiltrates or pulmonary edema pattern. Mild bronchial wall thickening suspected which could indicate bronchitis or bronchial edema. Pleural spaces: No pleural effusion. No pneumothorax. Heart/Mediastinum: Mild cardiomegaly. Prior median sternotomy. No tracheal/mediastinal shift. Vasculature: Moderate aortic ectasia/tortuosity and calcific atherosclerosis. Bones/joints: No acute osseous abnormalities are identified. Osteopenia. Chronic moderate anterior wedge compression deformity T7 unchanged. Chronic appearing fracture left anterolateral 5th rib. IMPRESSION: 1. Evidence of COPD. 2. Cardiomegaly and vascular congestive changes without gross features of acute decompensation. 3. Minor bronchial wall thickening is suspected which could represent changes of bronchitis or bronchial edema. 4. Additional nonemergent findings detailed above.
[2022-10-15 23:34] LABS: Alanine Aminotransferase 30 U/L (12-78); Albumin Level 4.5 g/dl (3.5-5.0); Albumin/Globulin Ratio 1.5 (1.1-1.8); Alkaline Phosphatase 89 U/L (38-126); Anion Gap 13.9 mEq/L (5-15); Aspartate Amino Transferase 48 U/L (14-36); Bilirubin,Total 0.7 mg/dl (0.2-1.3); Blood Urea Nitrogen 24 mg/dl (7-17); Calcium 9.8 mg/dl (8.4-10.2); Carbon Dioxide 31 mmol/L (22.0-30.0); Chloride 103 mmol/L (98-107); Creatinine Clearance Estimated 67 mL/min (50-200); Estimated Glomerular Filt Rate 62 ml/min (>60); GFR (African American) 75 ML/MIN (>60); Glucose 103 mg/dl (74-100); Potassium 3.9 mmoL/L (3.5-5.1); Sodium 144 mmol/L (136-145); Total Protein,Serum 7.5 g/dl (6.3-8.2)
[2022-10-15 23:36] LABS: Basophils # 0.1 K/mm3 (0-0.2); Basophils % 0.8 % (0.1-2.0); Eosinophils # 0.1 K/mm3 (0.0-0.4); Eosinophils % 0.8 % (0.1-12.0); Hematocrit 47.3 % (37.0-47.0); Hemoglobin 15.3 g/dL (12.2-16.2); Lymphocytes % 22.5 % (10-50); Mean Corpuscular HGB Conc 32.4 g/dL (31.8-35.4); Mean Corpuscular Hemoglobin 31.2 pg (27.0-31.2); Mean Corpuscular Volume 96.2 fl (81-99); Mean Platelet Volume 8.1 fl (7.4-10.4); Monocytes # 0.7 K/mm3 (0.1-1.0); Monocytes % 8.4 % (1.7-9.3); Neutrophils % 67.6 % (37.0-80.0); Platelet Count 453 K/mm3 (142-424); Red Blood Count 4.91 M/mm3 (4.20-5.40); Red Cell Distribution Width 13.9 % (11.5-17.5); White Blood Count 8.9 K/mm3 (4.8-10.8)
[2022-10-15 23:39] LABS: C-Reactive Protein 2.2 mg/L (0-4)
[2022-10-15 23:48] LABS: Troponin I < 0.01 ng/ml (0.00-0.034)
[2022-10-15 23:53] LABS: Procalcitonin 0.049 ng/mL (0.0-2.0)
[2022-10-16] VITALS (15 sets, daily range): BP systolic 148–181; BP diastolic 07–109; PULSE 20–92; RESP 18–24; TEMP 36.6–37.2; O2SAT 2–99; BMI 32.0
--- NOTE | 2022-10-16 00:13 | HMH.EDSOB ---
Discharge Plan Disposition Patient Disposition: Admitted As Inpatient Chief Complaint: Shortness of Breath/Dyspnea Prescriptions Prescriptions: No Action Repatha SureClick 140 mg/mL pen injector 140 mg SQ Q2W escitalopram oxalate 20 mg tablet 20 mg PO DAILY temazepam 15 mg capsule 15 mg PO HSP PRN (Reason: Sleep) Eliquis 5 mg tablet 5 mg PO BID Trelegy Ellipta 100-62.5-25 mcg blister with device 1 puff IH DAILY famotidine [Pepcid] 20 mg tablet 20 mg PO BID aspirin [Adult Low Dose Aspirin] 81 mg tablet,delayed release (DR/EC) 81 mg PO DAILY spironolactone 25 mg tablet 25 mg PO DAILY Qty: 90 1RF furosemide 40 mg tablet 40 mg PO DAILY Qty: 90 1RF clopidogrel 75 MG tablet 75 mg PO DAILY bisoprolol fumarate 5 MG tablet See Rx Instructions .Route .COMPLEX Rx Instructions: TAKE ONE TABLET BY MOUTH ONCE A DAY bupropion HCl 300 MG tablet extended release 24 hr 300 mg PO DAILY zinc gluconate 50 MG tablet 250 mg PO DAILY L.acidoph, paracasei,B. lactis 1 EACH capsule 1 each PO DAILY atorvastatin 80 MG tablet 80 mg PO DAILY ropinirole 1 MG tablet 2 mg PO HS omeprazole 40 MG capsule,delayed release(DR/EC) 40 mg PO DAILY losartan 25 MG tablet 25 mg PO DAILY cholecalciferol (vitamin D3) 1,250 MCG capsule 50,000 unit PO WEEKLY cholecalciferol (vitamin D3) 50 MCG tablet 2,000 unit PO DAILY ipratropium-albuterol 120 PUFF mist 2 puff IH QID prednisone 50 mg tablet 50 mg PO DAILY 5 Days Qty: 5 0RF doxycycline hyclate 100 mg tablet 100 mg PO BID 5 Days Qty: 10 0RF Referrals Follow up/Referrals: Michael Baez MD [Primary Care Provider] - See instructions Clinical Impressions Clinical Impression: Acute exacerbation of chronic obstructive airways disease Discharge ED Provider: Antwan Bae Resp/SOB HPI General Chief Complaint: Shortness of Breath/Dyspnea Stated Complaint: SOA Time Seen by Provider: 10/16/22 00:13 Mode of Arrival: EMS Source of Information: Patient, EMS and Medical Record Limitations: No Limitations Description of Symptoms (Recalled from ER Triage Doc. by RN): pt states that her breathing as gotten bad over the past 2 weeks she called for short of air and difficulty breathing because she couldnt take it any more History of Present Illness pt with hx of copd and ht dis and was seen in the ed a few days ago - has pavel mclain MD Complaint: shortness of breath and cough Onset (ago): day(s) Context: recent illness Severity: moderate Consistency/Duration: intermittent Known history of: COPD Associated symptoms: denies other symptoms Treatment prior to arrival: none Related Data Home oxygen amount: none Home Medications Medication Instructions Recorded Confirmed apixaban 5 mg tablet (Eliquis) 5 mg PO BID Blood thinner 12/19/18 02/09/22 fluticasone fur. 100 mcg-umeclid 1 puff IH DAILY COPD 12/19/18 02/09/22 62.5 mcg-vilant 25 mcg inhalat.powder (Trelegy Ellipta) temazepam 15 mg capsule 15 mg PO HSP PRN Sleep 12/19/18 02/09/22 famotidine 20 mg tablet (Pepcid) 20 mg PO BID GERD 05/16/19 02/09/22 clopidogrel 75 mg tablet 75 mg PO DAILY PLATELET INHIBITOR 06/23/19 02/09/22 evolocumab 140 mg/mL subcutaneous 140 mg SQ Q2W Cholesterol 02/12/20 02/09/22 pen injector (Repatha SureClick) escitalopram oxalate 20 mg tablet 20 mg PO DAILY Depression 04/22/20 02/09/22 aspirin 81 mg tablet,delayed 81 mg PO DAILY HEART HEALTH 05/13/20 02/09/22 release (Adult Low Dose Aspirin) L.acidoph, paracasei,B. lactis 10 1 each PO DAILY Diet supplement 08/11/20 02/09/22 billion cell capsule zinc gluconate 50 mg tablet 250 mg PO DAILY vitamins 08/11/20 02/09/22 atorvastatin 80 mg tablet 80 mg PO DAILY Cholesterol 08/12/20 02/09/22 cholecalciferol (vitamin D3) 1,250 50,000 unit PO WEEKLY Supplement 08/12/20 02/09/22 mcg (50,000 unit) capsule cholecalciferol (vitamin
[2022-10-16 00:19] LABS: Coronavirus 19, PCR Not Detected (NotDetected); Influenza A, PCR Not Detected (NotDetected); Influenza B, PCR Not Detected (NotDetected)
[2022-10-16 00:22] LABS: Microscopic, Urine URINE MICROSCOPIC (MICROSCOPIC)
[2022-10-16 00:23] LABS: Appearance,Urine CLEAR (Clear); Blood, Urine Negative (Negative); Color,Urine YELLOW (Yellow); Glucose,Urine (UA) Negative (Negative); Ketones,Urine TRACE (Negative); Leukocyte Esterase,Urine Negative (Negative); Nitrate,Urine Negative (Negative); Protein,Urine Negative (Negative); Specific Gravity, Urine >= 1.030 (1.005-1.030); Urobilinogen,Urine 0.2 EU/dl (0.2)
[2022-10-16 00:25] LABS: Bilirubin,Urine 1+ (Negative)
[2022-10-16 00:26] LABS: Bacteria,Urine Trace /lpf; Calcium Oxalate Crystals,Urine Trace /lpf; Lactic Acid 1.5 mmol/L (0.7-2.1)
[2022-10-16 00:39] LABS: NT Pro Brain Natriuretic Pep. 947 pg/mL (0-125)
[2022-10-16 00:56] LABS: Adenovirus,PCR Not Detected (NotDetected); Bordetella Pertussis Not Detected (NotDetected); Chlamydophila Pneumoniae, PCR Not Detected (NotDetected); Coronavirus 19, PCR Not Detected (NotDetected); Coronavirus 229E Not Detected (NotDetected); Coronavirus NL63 Not Detected (NotDetected); Coronavirus OC43 Not Detected (NotDetected); Coronovirus HKU1,PCR Not Detected (NotDetected); Human Metapneumovirus Not Detected (NotDetected); Influenza A, PCR Not Detected (NotDetected); Influenza AH1, 2009 Not Detected (NotDetected); Influenza AH1, PCR Not Detected (NotDetected); Influenza AH3,PCR Not Detected (NotDetected); Influenza B, PCR Not Detected (NotDetected); Mycoplasma Pneumoniae, PCR Not Detected (NotDetected); Parainfluenza 1, PCR Not Detected (NotDetected); Parainfluenza 2, PCR Not Detected (NotDetected); Parainfluenza 3, PCR Not Detected (NotDetected); Parainfluenza 4, PCR Not Detected (NotDetected); Respiratory Syncytial Virus Not Detected (NotDetected); Rhinovirus/Enterovirus Not Detected (NotDetected)
--- NOTE | 2022-10-16 01:07 | EXP.HP ---
History of Present Illness *Admission Date: 10/16/22 *Reason for visit:: Shortness of air, cough *History of present illness: Ms. Andres is a 71-year-old female with a past medical history that is positive for COPD, uses home oxygen as needed, Chronic Atrial Fibrillation on chronic anticoagulation, Depression, Anxiety, RLS and Hypertension. She presents to [facility] due to ongoing shortness of air associated with a non-productive cough x 1 week duration, orthopnea and paroxysmal nocturnal dyspnea. The patient was previously seen in the ER on 10/12/2022 and diagnosed with COPD exacerbation. She reports that she was given Prednisone and Doxycycline and took as prescribed, however despite taking the medications she continued to feel extremely short of air and is now having to wear her oxygen constantly. Cxray performed in the ER was concerning for COPD and vascular congestion. ABG obtained showed a mild hypoxemia, EKG showed a Sinus Arrythmia. Troponin was within the normal limits. The patient will be admitted with initial impression: Acute Exacerbation of COPD, a full respiratory panel will be ordered, the patient was given Steroids in the ER, she will be started on long-acting bronchodilator therapy, continued on inhaled corticosteroids, and given antibiotics. The plan of care was discussed in length and detail with the patient at bedside. She verbalized understanding and agreement with the plan of care. [facility] Medical History Anxiety Atrial fibrillation COPD (chronic obstructive pulmonary disease) Depression SOB (shortness of breath) Surgical History (Updated 10/16/22 @ 04:12 by Abby Austin RN) H/O: hysterectomy History of bilateral knee replacement History of colon resection Social History (Updated 10/16/22 @ 03:34 by Abby Austin RN) Smoking Status: Former smoker pack-years: 45 years smoked: 56 how long ago did patient quit smoking: july 2022 quit status: quit date established second hand exposure: No alcohol intake: never substance use type: denies use current occupational status: retired and other Travel in the last 8 weeks: None household members: spouse and children housing: house lives independently: No marital status: education level: college current occupational exposures/hazards: No caffeine: Yes Review of Systems Review of Systems Review of systems:: pertinent systems reviewed and negative unless documented below Constitutional Constitutional: Reports system reviewed and no additional complaints, except as documented Eyes Eyes: Reports system reviewed and no additional complaints, except as documented ENT Ears, Nose, Mouth, and Throat: Reports system reviewed and no additional complaints, except as documented *Cardiovascular Cardiovascular: Reports dyspnea, Reports dyspnea on exertion and Reports orthopnea *Respiratory Respiratory: Reports cough, Reports dyspnea and Reports dyspnea on exertion *Gastrointestinal Gastrointestinal: Reports system reviewed and no additional complaints, except as documented *Genitourinary Genitourinary: Reports system reviewed and no additional complaints, except as documented *Musculoskeletal Musculoskeletal: Reports system reviewed and no additional complaints, except as documented Integumentary/Breasts Skin/Breast: Reports system reviewed and no additional complaints, except as documented *Neurologic Neurologic: Reports system reviewed and no additional complaints, except as documented Psychiatric Psychiatric: Reports system reviewed and no additional complaints, except as documented Endocrine Endocrine: Reports system reviewed and no additional complaints, except as documented Hematologic/Lymphatic Hematologic/Lymphatic: Reports system reviewed and no additional complaints, except as documented Allergic/Immunologic Allergic/Immunologic:
--- NOTE | 2022-10-16 01:21 | PC.NURSE ---
PT ARRIVED TO FLOOR AT THIS TIME
[2022-10-16 02:44] LABS: Troponin I < 0.01 ng/ml (0.00-0.034)
--- NOTE | 2022-10-16 04:37 | PC.NURSE ---
pt admitted this shift, pt is alert and oriented x4, skin pwd without edema, lung sounds with expiratory rhonchi and inspiratory wheezes noted, o2 sats 94% on 2L pnc, telemetry reveals NSR, pt unable to lay flat and sits up to sleep, Rachid VANN called regarding vte prophylaxis, pt with HTN noted and that medication list was updated, no new orders at this time and stated pt does not need vte prophylaxis, no other issues or concerns at this time.
[2022-10-16 06:13] LABS: Troponin I < 0.01 ng/ml (0.00-0.034)
--- NOTE | 2022-10-16 08:09 | HMH.PHAINT1 ---
Pharmacy Intervention Comments: Medication reconciliation completed via external fill history and patient interview. Of note, patient takes senokot every night due to previous colon surgeries. -Lucila Talamantes, PharmD Candidate 2022
--- NOTE | 2022-10-16 15:14 | PC.NURSE ---
PRE NANDINI, ORDER REQUIP 2MG PO NOW.
[2022-10-17] VITALS (17 sets, daily range): BP systolic 136–167; BP diastolic 88–97; PULSE 71–88; RESP 17–18; TEMP 36.6–37.4; O2SAT 92–99; BMI 32.5
--- NOTE | 2022-10-17 06:00 | PC.NURSE ---
no changes from previous assessment, pt is alert and oriented x4, lung sounds with inspiratory and expiratory rhonchi and scattered wheezes, no acute distress, 02 sats remain 93-96% on 2L of O2, pt with cough most of night, will along to oncoming RN pt requests cough medication or expectorant, states she gets SOA during coughing, no edema noted, no other issues or concerns noted at this time.
--- NOTE | 2022-10-17 14:25 | EXP.PHA.CONS ---
Pharmacy Consult Date: 10/17/22 Time: 14:25 Referring provider: DR. Dot PAZ Reason for Consult:: VANCOMYCIN DOSING Allergies Allergy/AdvReac Type Severity Reaction Status Date / Time codeine Allergy Mild Verified 11/04/21 10:14 diphenhydramine Allergy Mild Verified 11/04/21 10:14 [From Benadryl] Penicillins Allergy Mild Verified 11/04/21 10:14 isosorbide AdvReac Intermediate Severe CHENEY Verified 11/04/21 10:14 diazepam [From Valium] AdvReac Mild Agitated Verified 11/04/21 10:14 Home Medications Medication Instructions Recorded Confirmed Type apixaban 5 mg tablet (Eliquis) 5 mg PO BID Blood thinner 12/19/18 10/16/22 History temazepam 15 mg capsule 15 mg PO HSP PRN Sleep 12/19/18 10/16/22 History famotidine 20 mg tablet (Pepcid) 20 mg PO BID GERD 05/16/19 10/16/22 History evolocumab 140 mg/mL subcutaneous 140 mg SQ Q2W Cholesterol 02/12/20 10/16/22 History pen injector (Naeem Burton) escitalopram oxalate 20 mg tablet 20 mg PO DAILY Depression 04/22/20 10/16/22 History aspirin 81 mg tablet,delayed 81 mg PO DAILY HEART HEALTH 05/13/20 10/16/22 History release (Adult Low Dose Aspirin) L.acidoph, paracasei,B. lactis 10 1 each PO DAILY Diet supplement 08/11/20 10/16/22 History billion cell capsule atorvastatin 80 mg tablet 80 mg PO DAILY Cholesterol 08/12/20 10/16/22 History losartan 25 mg tablet 25 mg PO DAILY Hypertension 08/12/20 10/16/22 History ropinirole 1 mg tablet 2 mg PO HS SLEEP 08/12/20 10/16/22 History bisoprolol fumarate 5 mg tablet 5 mg PO DAILY Hypertension 06/20/21 10/16/22 History bupropion HCl 300 mg 24 hr tablet, 300 mg PO DAILY Anxiety 11/04/21 10/16/22 History extended release doxycycline hyclate 100 mg tablet 100 mg PO BID 5 days #10 tabs 10/12/22 10/16/22 Rx budesonide 160 mcg-glycopyr 9 2 inh inhalation BID COPD 10/16/22 10/16/22 History mcg-formot 4.8 mcg/actuation HFA inhaler (Breztri Aerosphere) cetirizine 10 mg tablet 10 mg PO DAILY allergies 10/16/22 10/16/22 History furosemide 20 mg tablet 20 mg PO DAILY Edema 10/16/22 10/16/22 History ipratropium 20 mcg-albuterol 100 1 puff inhalation Q3H PRN copd 10/16/22 10/16/22 History mcg/actuation mist for inhalation (Combivent Respimat) prednisone 10 mg tablet 50 mg PO DAILY COPD 10/16/22 10/16/22 History sennosides 8.6 mg tablet (Senokot) 8.6 mg PO HS constipation 10/16/22 10/16/22 History New Prescriptions to Start Prescriptions: Height: 1.63 m Weight: 86.296 kg Laboratory Results:: N/A Medical History: Medical History (Updated 10/16/22 @ 01:21 by Rachid Torres DNP) Anxiety Atrial fibrillation COPD (chronic obstructive pulmonary disease) Depression SOB (shortness of breath) Assessment and Plan Assessment and plan all Dx Assessment and Plan for all problems:: Pharmacokinetic dosing service Objective: Patient: Floor: Age: 71 yo Serum creatinine: 0.90 mg/dL Height: 64.2 Inches Weight (kg): 86.3 Assessment: IBW (kg): 55.16 Dosing wt(kg): 86.3 Estimated Creatinine clearance (ml/min): 50.6 CRCL method: Cockcroft and Gault using ibw(default). Drug selected: Vancomycin Loading dose (mg): Vd (liters): 64.7 (factor used: 0.75 L/kg) Abdirahman (hr-1): 0.046 Half life (hrs): 15.07 CLvanco=?? 2.976 L/hr Recommended dose: 1500 mg Interval: 24 hrs Infusion time (hrs): 2.0 Predicted peak (mcg/mL): 33.1 Predicted trough (mcg/mL): 12.03 Total body weight is being used for vancomycin dosing. Recommendations: Give Vancomycin 1500 mg q 24 hrs with an expected Cpeak of 33.1 mcg/ml and an expected Ctrough of 12.03 mcg/ml AUC 0-24 /GABY Data: GABY 0.5 mcg/mL:?? AUC/GABY:? 1008.1 GABY 1.0 mcg/mL:?? AUC/GABY:? 504.0 --------- GABY 1.5 mcg/mL:?? AUC/GABY:? 336.0 GABY 2.0 mcg/mL:?? AUC/M
--- NOTE | 2022-10-17 15:25 | HMH.OTEV ---
OT Inpatient Evaluation Rehab OT IP Evaluation Start: 10/17/22 13:42 Freq: ONCE Status: Complete Protocol: [facility] 10/17/22 15[facility] (Rec: 10/17/22 15:25 [facility] [id number]) Rehab OT IP Assessment Subjective History Pt oriented x 4 on arrival. Pt agreeable to engage in therapy evaluation. Pt was admitted via ED on 10/16/22 due to Shortness of air and cough. Prior to being in the hospital, pt lived at home with her . Pt reports she was independent with all ADLs and IADLs. She did not require any type of AE during ambulation or ADLs. She did wear oxygen at times. Pt was still driving. Pt has a past medical history of: Anxiety Atrial fibrillation COPD (chronic obstructive pulmonary disease) Depression SOB (shortness of breath) Subjective I do feel better now. Objective Patient Orientation Person,Place,Year Upper Extremity Gross ROM WFL Bed Mobility bed mobility-scooting,bed mobility - supine/sit,bed mobility - rolling Assist Level Independent Transfer Training Sit/Stand Transfer Assist Level Independent Chair Transfer Ability Independent Chair Transfer Technique Sit to/from Ambulatory Chair Transfer Assistive Devices None Lower Body Dressing Ability Independent Rehab OT IP prob,goals,plan Problems Date of Evaluation: 10/17/22 Rehab Potential Rehab Potential Innapropriate for Skilled Therapy Discharge Plan OT Discharge Plan At this time, pt appears to be at her baseline with functional transfers and ADLs. Pt can return home once medically stable per physician . Thank you for having OT a part of patients plan of care. Eval Complexity Eval Charge Codes 57812 - Moderate Complexity G Codes G -code Required No PHYSICIAN
--- NOTE | 2022-10-17 15:41 | HMH.PTEV ---
Physical Therapy Evaluation Rehab PT IP Evaluation Start: 10/17/22 13:42 Freq: ONCE Status: Active Protocol: Document 10/17/22 15:38 IVANA (Rec: 10/17/22 15:41 IANROSINA [id number]) Subjective/History History History Mrs. Andres is a 71 y/o female admitted to [facility] for COPD exacerbation Subjective Subjective Pt reports I PLOF - only imtermittant uses of supp O2 and AD's Rehab PT IP Eval Objective Appearance Patient Behavior Appropriate,Cooperative Patient Orientation Place,Name,Birthday,Year, Situation Difficulty following instructions none Speech Pattern Clear,Appropriate Ambulation Patient Able to Ambulate Yes Ambulation Observation IP General Gait Pattern Observation No Deviations/Normal Ambulation Distance (feet) 300 Ambulation Assistive Device None Ambulation Ability Independent,Supervision/Stand by Balance Ability to Arise Able, uses arms to help Sitting Balance Steady, safe Standing Balance Narrow stance w/o support Dynamic Sitting Balance Ability Normal Dynamic Standing Balance Ability Good Transfers Bed Transfer Ability Independent Chair Transfer Ability Independent Sit to Stand Bed Transfer Ability Independent Sit to Stand Chair Transfer Ability Independent Rehab PT IP prob,goals,plan Problems Date of Evaluation: 10/17/22 Rehab Potential Rehab Potential Innapropriate for Skilled Therapy Discharge Plan PT Discharge Plan Pt has no need for skilled therapy at this time - pt safe to return home once medically stable G -code Required Yes Eval Complexity Eval Charge Codes 96824 - Low Complexity G Codes PT Current Status Mobility PT Current Status Modifier CH-0% impaired, limited or restricted PT Goal Status Mobility PT Goal Status Modifer CH-0% impaired, limited or restricted PHYSICIAN CERTIFICATION: I certify the specified therapy services for Supriya Andres are required, authorized, and reviewed every 30 days.
--- NOTE | 2022-10-17 16:00 | EXP.PULM.CON ---
History of Present Illness History of present illness: Ms. Andres is a 71-year-old female greater than [id number] smoking history carries a diagnosis of asthma COPD overlap syndrome on triple inhaler therapy at home presented to the hospital complaining of worsening respiratory's along with worsening wheezing and shortness of breath and pulmonary was called for further management. [facility] Medical History (Updated 10/17/22 @ 16:04 by Virgilio Nguyễn MD) Acute respiratory failure with hypoxia Anxiety Atrial fibrillation COPD (chronic obstructive pulmonary disease) COPD exacerbation Depression SOB (shortness of breath) Surgical History (Updated 10/16/22 @ 04:12 by Abby Austin, RN) H/O: hysterectomy History of bilateral knee replacement History of colon resection Social History (Updated 10/16/22 @ 03:34 by Abby Austin, RN) Smoking Status: Former smoker pack-years: 45 years smoked: 56 how long ago did patient quit smoking: july 2022 quit status: quit date established second hand exposure: No alcohol intake: never substance use type: denies use current occupational status: retired and other Travel in the last 8 weeks: None household members: spouse and children housing: house lives independently: No marital status: education level: college current occupational exposures/hazards: No caffeine: Yes Review of Systems Constitutional Constitutional: Reports anorexia, Reports body ache(s) and Reports fatigue Eyes Eyes: Denies eye discharge, Denies dry eyes, Denies irritation and Denies itchy eyes ENT Ears, Nose, Mouth, and Throat: Denies epistaxis, Denies facial pain, Denies lip swelling and Denies throat swelling *Cardiovascular Cardiovascular: Reports dyspnea and Reports dyspnea on exertion *Respiratory Respiratory: Reports chest congestion, Reports cough, Reports dyspnea, Reports dyspnea on exertion, Reports excessive phlegm production and Reports wheezing *Gastrointestinal Gastrointestinal: Denies abdominal pain, Denies belching and Denies cramping *Musculoskeletal Musculoskeletal: Reports back pain, Reports myalgias and Reports other (No small joint swelling or Pain) *Neurologic Neurologic: Reports system reviewed and no additional complaints, except as documented Psychiatric Psychiatric: Denies homicidal ideation and Denies suicidal ideation Endocrine Endocrine: Reports fatigue and Denies heat intolerance Hematologic/Lymphatic Hematologic/Lymphatic: Denies easy bleeding and Denies lymphadenopathy Allergic/Immunologic Allergic/Immunologic: Denies itchy eyes, Denies lip swelling, Denies throat swelling and Reports wheezing Pulmonology Exam Inpatient Vital signs and Labs for Last 24 Hours: Temp Pulse Resp BP Pulse Ox 99.4 F 80 17 157/88 H 92 L 10/17/22 15:23 10/17/22 15:23 10/17/22 15:23 10/17/22 15:23 10/17/22 15:23 I & O for Labs for Last 24 Hours: Intake & Output 10/14/22 10/15/22 10/16/22 10/17/22 23:59 23:59 23:59 23:59 Intake Total 1340 / 1340 600 / 600 Output Total 0 / 0 0 / 0 Balance 1340 / 1340 600 / 600 Weight 180 lb 187 lb 9 oz 190 lb 4 oz Microbiology Reports for the Last 24 Hours: Microbiology 10/15/22 23:59 Blood Blood Culture - Preliminary 10/15/22 23:59 Blood Blood Culture - Preliminary 10/16/22 04:22 Sputum - Expectorated Sputum Gram Stain - Final 10/16/22 04:22 Sputum - Expectorated Sputum Sputum Culture - Preliminary Head: Present normocephalic and atraumatic ENT: Present normal exam, normal oropharynx and mucous membranes moist Neck: Present normal inspection and full ROM Respiratory: Present respiratory distress, wheezes, diminished air movement and able to speak in complete sentences Cardiac: Present S1/S2, Tachycardia and radial pulses present GI: Present soft and distention; Absent tenderness or guarding Rectal (female): Present deferred (female): Present deferred Skin: Pres
--- NOTE | 2022-10-17 18:56 | PC.NURSE ---
PT HAS BEEN PLEASANT THIS SHIFT. C/O SOA ON EXERTION/RESTING, MD NOTIFIED IN AM ROUNDS. RHONCHI T/O BILAT LUNGS, O2 ON 2L TOLERATING WELL AT 97%, PRODUCTIVE COUGH. NO C/O N/V/P. TELE WITH NSR. CB AND PERSONAL ITEMS WITHIN REACH. NO CONCERNS VOICED AT THIS TIME.
--- NOTE | 2022-10-17 20:07 | EXP.ACUTE.PN ---
Subjective *Date: 10/17/22 *Time: 11:00 Interval history: Doing well, feels improved. Wants to stay an extra day to make sure she gets better. Medical Exam Vital signs and Labs for Last 24 Hours: Vital Signs Temp Pulse Pulse Resp BP Pulse Ox FiO2 10/17/22 18:48 28 10/17/22 18:47 79 10/17/22 18:47 71 10/17/22 16:00 84 10/17/22 15:23 99.4 F 80 17 157/88 H 92 L 10/17/22 14:35 79 10/17/22 14:35 77 10/17/22 12:00 83 10/17/22 11:07 98.8 F 88 17 140/97 H 95 10/17/22 10:26 85 10/17/22 10:26 87 10/17/22 10:26 95 10/17/22 08:00 83 10/17/22 07:35 98.8 F 82 18 144/90 H 93 L 10/17/22 06:01 76 10/17/22 06:01 86 10/17/22 06:01 96 10/17/22 04:00 80 10/17/22 00:00 80 10/17/22 00:00 94 L 10/17/22 03:56 98.5 F 87 18 136/91 H 92 L 10/17/22 01:53 71 10/17/22 01:53 85 10/16/22 23:29 98.3 F 75 20 161/105 H 94 L Intake and Output 10/17/22 10/17/22 10/17/22 07:59 15:59 23:59 Intake Total 300 / 840 300 / 840 240 / 840 Output Total 0 / 0 0 / 0 0 / 0 Balance 300 / 840 300 / 840 240 / 840 Intake: Intake, Oral Amount 300 / 840 300 / 840 240 / 840 Output: Output, Urine Amount 0 / 0 0 / 0 0 / 0 Other: Number of Unmeasured Voids 1 1 1 Weight 86.296 kg 86.296 kg Patient Weight 10/17/22 23:59 Weight 86.296 kg I & O for Labs for Last 24 Hours: Intake & Output 10/14/22 10/15/22 10/16/22 10/17/22 23:59 23:59 23:59 23:59 Intake Total 1340 / 1340 840 / 840 Output Total 0 / 0 0 / 0 Balance 1340 / 1340 840 / 840 Weight 81.647 kg 85.077 kg 86.296 kg Microbiology Reports for the Last 24 Hours: Microbiology 10/15/22 23:59 Blood Blood Culture - Preliminary 10/15/22 23:59 Blood Blood Culture - Preliminary 10/16/22 04:22 Sputum - Expectorated Sputum Gram Stain - Final 10/16/22 04:22 Sputum - Expectorated Sputum Sputum Culture - Preliminary Constitutional: Present no acute distress and chronically ill appearing Respiratory: Present accessory muscle use, rhonchi and wheezes Cardiac: Present Reg Rate and Rhythm and S1/S2 GI: Present soft; Absent tenderness Rectal (female): Present deferred (female): Present deferred Extremities: Absent tenderness Skin: Present intact Assessment and Plan *Assessment and plan (1) COPD with acute exacerbation: Status: Acute Category: Medical Code(s): J44.1 - Chronic obstructive pulmonary disease with (acute) exacerbation (2) Atrial fibrillation: Status: Acute Category: Medical Code(s): I48.91 - Unspecified atrial fibrillation (3) Hypertension: Status: Acute Category: Medical Code(s): I10 - Essential (primary) hypertension (4) Hyperlipidemia: Status: Acute Category: Medical Code(s): E78.5 - Hyperlipidemia, unspecified (5) Restless leg syndrome: Status: Acute Category: Medical Code(s): G25.81 - Restless legs syndrome (6) Elevated brain natriuretic peptide (BNP) level: Status: Acute Category: Medical Code(s): R79.89 - Other specified abnormal findings of blood chemistry Plan 71-year-old female with past medical history COPD presents with ongoing shortness of air with COPD exacerbation clinically improving Acute Exacerbation of COPD -Continue oxygen supplementation to maintain O2 saturation goal of 90% above.? Wean as tolerated. DuoNebs every 4 hours scheduled along with budesonide every 12 scheduled Continue ceftriaxone azithromycin for her PNM, can be weaned to levofloxacin upon discharge Continue prednisone 40 mg daily.? We will closely monitor. - Elevated BNP The patient is reporting Orthopnea and Paroxysmal nocturnal dyspnea Elevated BNP Gave dose of Lasix Will obtain Echo in the am for evaluation - Atrial Fibrillation Will continue home
[2022-10-18] VITALS (11 sets, daily range): BP systolic 143–159; BP diastolic 78–97; PULSE 74–89; RESP 17–18; TEMP 36.6–36.7; O2SAT 93–99; BMI 32.3
--- NOTE | 2022-10-18 05:17 | PC.NURSE ---
Addendum entered by Abby Austin RN 10/18/22 05:19: pt remains htn with sbp noted 150-160's and dpb 88-97. Original Note: pt has slept intermittently through the night, pt is alert and oriented x4, lung sounds bilaterally with expiratory rhonchi, 02 sats 93-99% on 02 at 2L pnc, telemetry reveals NSR, skin pwd without edema, no acute distress, no other issues or concerns at this time.
[2022-10-18 06:31] LABS: Basophils # 0.1 K/mm3 (0-0.2); Basophils % 0.5 % (0.1-2.0); Eosinophils # 0.1 K/mm3 (0.0-0.4); Eosinophils % 0.7 % (0.1-12.0); Hemoglobin 13.5 g/dL (12.2-16.2); Lymphocytes # 3.5 K/mm3 (0.7-4.5); Lymphocytes % 29.7 % (10-50); Mean Corpuscular Hemoglobin 31.1 pg (27.0-31.2); Mean Corpuscular Volume 97.1 fl (81-99); Mean Platelet Volume 8.3 fl (7.4-10.4); Monocytes % 8.3 % (1.7-9.3); Neutrophils # 7.2 K/mm3 (1.8-7.8); Neutrophils % 60.9 % (37.0-80.0); Platelet Count 413 K/mm3 (142-424); Red Blood Count 4.33 M/mm3 (4.20-5.40); White Blood Count 11.9 K/mm3 (4.8-10.8)
[2022-10-18 06:39] LABS: Alanine Aminotransferase 24 U/L (12-78); Albumin Level 3.5 g/dl (3.5-5.0); Albumin/Globulin Ratio 1.4 (1.1-1.8); Alkaline Phosphatase 102 U/L (38-126); Aspartate Amino Transferase 33 U/L (14-36); Bilirubin,Total 0.6 mg/dl (0.2-1.3); Blood Urea Nitrogen 19 mg/dl (7-17); Calcium 9.1 mg/dl (8.4-10.2); Carbon Dioxide 27 mmol/L (22.0-30.0); Chloride 99 mmol/L (98-107); Creatinine Clearance Estimated 71 mL/min (50-200); Estimated Glomerular Filt Rate 71 ml/min (>60); GFR (African American) 86 ML/MIN (>60); Globulin 2.5 g/dL (1.3-3.2); Glucose 91 mg/dl (74-100); Magnesium 1.6 mg/dl (1.6-2.3); Phosphorous 3.5 mg/dl (2.5-4.5)
--- NOTE | 2022-10-18 06:44 | PC.NURSE ---
critical potassium level 3.0 called to Nitza VANN, stated she will put orders in for oral potassium.
--- NOTE | 2022-10-18 06:45 | PC.NURSE ---
lab called with critical potassium 3.0; called Nitza VANN with results and stated she will put orders in to give some po potassium
--- NOTE | 2022-10-18 09:56 | EXP.PULM.PN ---
Subjective *Date: 10/18/22 *Time: 13:38 Interval history: No acute respiratory vents overnight. Patient continued be needing oxygen requirements. Admits improving respiratory distress, continue to have wheezing and shortness of breath. Pulmonology Exam Inpatient Vital signs and Labs for Last 24 Hours: Temp Pulse Resp BP Pulse Ox FiO2 97.8 F 79 17 159/88 H 99 28 10/18/22 07:20 10/18/22 07:20 10/18/22 07:20 10/18/22 07:20 10/18/22 07:20 10/17/22 18:48 Laboratory Results - last 24 hr 10/18/22 05:58: WBC 11.9 H D, RBC 4.33, Hgb 13.5, Hct 42.0, MCV 97.1, MCH 31.1, MCHC 32.0, RDW 14.0, Plt Count 413, MPV 8.3, Neut % (Auto) 60.9, Lymph % (Auto) 29.7, [place] % (Auto) 8.3, Eos % (Auto) 0.7, Baso % (Auto) 0.5, Neut # (Auto) 7.2, Lymph # (Auto) 3.5, [place] # (Auto) 1.0, Eos # (Auto) 0.1, Baso # (Auto) 0.1 10/18/22 05:58: Sodium 129 L, Potassium 3.0 L D, Chloride 99, Carbon Dioxide 27, Anion Gap 6.0, BUN 19 H, Creatinine 0.80, Estimated Creat Clear 71, Estimated GFR 71, Est GFR ( Amer) 86, Glucose 91, Calcium 9.1, Phosphorus 3.5, Magnesium 1.6, Total Bilirubin 0.6, AST 33 D, ALT 24, Alkaline Phosphatase 102, Total Protein 6.0 L, Albumin 3.5, Globulin 2.5, Albumin/Globulin Ratio 1.4 I & O for Labs for Last 24 Hours: Intake & Output 10/15/22 10/16/22 10/17/22 10/18/22 23:59 23:59 23:59 23:59 Intake Total 1340 / 1340 840 / 1090 550 / 550 Output Total 0 / 0 0 / 0 250 / 250 Balance 1340 / 1340 840 / 1090 300 / 300 Weight 180 lb 187 lb 9 oz 190 lb 4 oz 189 lb 3.2 oz Microbiology Reports for the Last 24 Hours: Microbiology 10/15/22 23:59 Blood Blood Culture - Preliminary 10/15/22 23:59 Blood Blood Culture - Preliminary 10/16/22 04:22 Sputum - Expectorated Sputum Gram Stain - Final 10/16/22 04:22 Sputum - Expectorated Sputum Sputum Culture - Preliminary Constitutional: Present mild distress Head: Present normocephalic and atraumatic ENT: Present normal exam, normal oropharynx and mucous membranes moist Neck: Present normal inspection and full ROM Respiratory: Present respiratory distress, wheezes and able to speak in complete sentences Cardiac: Present S1/S2, Tachycardia and radial pulses present GI: Present soft and distention; Absent tenderness or guarding Rectal (female): Present deferred (female): Present deferred Skin: Present intact; Absent cyanosis or jaundice Neuro: Present alert, awake and oriented x 3 Extremities: Present normal inspection; Absent clubbing or cyanosis Psychiatric: Present normal affect and cooperative Assessment and Plan *Assessment and plan (1) COPD exacerbation: Status: Acute Category: Medical Code(s): J44.1 - Chronic obstructive pulmonary disease with (acute) exacerbation (2) Acute respiratory failure with hypoxia: Status: Acute Category: Medical Code(s): J96.01 - Acute respiratory failure with hypoxia Plan #COPD exacerbation: #Acute respiratory failure with hypoxia: Ms. Andres is a 71-year-old female greater than [id number] smoking history carries a diagnosis of asthma COPD overlap syndrome on triple inhaler therapy at home presented to the hospital complaining of worsening respiratory's along with worsening wheezing and shortness of breath and pulmonary was called for further management. Chest x-ray on admission no acute airspace disease/dense consolidation. No evidence of leukocytosis. Auscultation bilateral diffuse expiratory wheezing. Patient needing 2 to 3 L. Oxygen supplementation to maintain O2 saturation goal of 90% and above. She only uses oxygen at as-needed basis at baseline. Significant peripheral eosinophilia noted. No PFTs available for review. Interval update: Echo performed, EF 50 to 55% with septal akinesis. RVSP normal at less than 35. Blood cultures in both bottles grew staph epi mec-A gene positive. Currently receiving vancomycin, plan was made to repeat blood cultures today, discharge on Linezolid
[2022-10-18 10:29] LABS: Sodium 138 mmol/L (136-145)
--- NOTE | 2022-10-18 11:34 | EXP.DC.SUM ---
General Admission date:: 10/16/22 Discharge date: 10/18/22 HPI HPI HPI: Ms. Andres is a 71-year-old female with a past medical history that is positive for COPD, uses home oxygen as needed, Chronic Atrial Fibrillation on chronic anticoagulation, Depression, Anxiety, RLS and Hypertension. She presents to [facility] due to ongoing shortness of air associated with a non-productive cough x 1 week duration, orthopnea and paroxysmal nocturnal dyspnea. The patient was previously seen in the ER on 10/12/2022 and diagnosed with COPD exacerbation. She reports that she was given Prednisone and Doxycycline and took as prescribed, however despite taking the medications she continued to feel extremely short of air and is now having to wear her oxygen constantly. Cxray performed in the ER was concerning for COPD and vascular congestion. ABG obtained showed a mild hypoxemia, EKG showed a Sinus Arrythmia. Troponin was within the normal limits. The patient will be admitted with initial impression: Acute Exacerbation of COPD, a full respiratory panel will be ordered, the patient was given Steroids in the ER, she will be started on long-acting bronchodilator therapy, continued on inhaled corticosteroids, and given antibiotics. The plan of care was discussed in length and detail with the patient at bedside. She verbalized understanding and agreement with the plan of care. Hospital Course Hospital Course Hospital Course: Patient was admitted for COPD exacerbation and started on antibiotics and prednisone and inhalers.The patient had clinical improvement first 24 hours of admission. Pulmonology was consulted for recommendations regarding severe COPD. Patient was continued on duo nebs and budesonide And oral steroids. Patient had continued clinical improvement and felt good to go home with home health therapy.. Blood cultures obtained on admission returned positive in 2 bottles for staph epidermidis. Patient clinically did not appear bacteremic, however since both bottles were positive it was considered a true result. Risks and benefits of long-term antibiotics and PICC line were discussed with the patient. Following shared decision making with consultant dietitian and patient it was decided to discharge patient the patient with short-term primary care follow-up on linezolid p.o. Blood cultures were obtained prior to discharge and will continue to be followed. Recommend outpatient Zyvox with early PCP follow-up and following blood cultures obtained prior to discharge. Will need home health therapy. Exam Data for Last 24 hours Vital signs and Labs for Last 24 Hours: Temp Pulse Resp BP Pulse Ox FiO2 97.9 F 82 17 143/81 H 96 28 10/18/22 10:50 10/18/22 10:50 10/18/22 10:50 10/18/22 10:50 10/18/22 10:50 10/17/22 18:48 Laboratory Results - last 24 hr 10/15/22 23:59: Urine Color Yellow, Urine Appearance Clear, Urine pH 5.0, Ur Specific [place] >= 1.030, Urine Protein Negative, Urine Glucose (UA) Negative, Urine Ketones Trace, Urine Blood Negative, Urine Nitrate Negative, Urine Bilirubin 1+ A, Urine Urobilinogen 0.2, Ur Leukocyte Esterase Negative, Urine RBC 3-5, Urine WBC 3-5, Ur Squamous Epith Cells 5-10, Calcium Oxalate Crystal Trace, Urine Bacteria Trace 10/18/22 05:58: WBC 11.9 H D, RBC 4.33, Hgb 13.5, Hct 42.0, MCV 97.1, MCH 31.1, MCHC 32.0, RDW 14.0, Plt Count 413, MPV 8.3, Neut % (Auto) 60.9, Lymph % (Auto) 29.7, [place] % (Auto) 8.3, Eos % (Auto) 0.7, Baso % (Auto) 0.5, Neut # (Auto) 7.2, Lymph # (Auto) 3.5, [place] # (Auto) 1.0, Eos # (Auto) 0.1, Baso # (Auto) 0.1 10/18/22 05:58: Sodium 138, Potassium 3.0 L D, Chloride 99, Carbon Dioxide 27, Anion Gap 15.0, BUN 19 H, Creatinine 0.80, Estimated Creat Clear 71, Estimated GFR 71, Est GFR ( Amer) 86, Glucose 91, Calcium 9.1, Phosphorus 3.5, Magnesium 1.6, Total Bilirubin 0.6, AST 33 D, ALT 24, Alkaline Phosphatase 102, Total Protein 6.0 L, Albumin 3.5, Globulin 2.5, Albumin/Glob
[2022-10-18 11:37] LABS: Potassium 3.5 mmoL/L (3.5-5.1)
--- NOTE | 2022-10-18 13:56 | CARE MANAGER ---
MD ordered home health for patient, referral was sent to [facility] due to insurance contract. They will see the patient upon discharge.
--- NOTE | 2022-10-18 14:07 | HMH.PHAINT1 ---
Pharmacy Intervention Comments: Discharge counseling completed at bedside with the patient. Discussed new medications (linezolid and prednisone taper), continued medications, and discontinued/changed medications. Overviewed indication and possible side effects/mitigation strategies of each no medication. Discussed signs of serotonin syndrome with patient and she verbalized her understanding. 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 No other questions or concerns at this time.
--- NOTE | 2022-10-18 14:24 | PC.NURSE ---
Pt RA sat was 88% at rest
--- NOTE | 2022-10-18 14:49 | PC.NURSE ---
Spoke with Dr. Dot Abdalla about pt getting IV Vanc. He stated that he was going to d/c Vanc and can take PO ABX.
--- NOTE | 2022-10-18 15:10 | PC.NURSE ---
Spoke with Dr. Rendon and he stated that he was going to call in [facility] to [place] for pt.
--- NOTE | 2022-10-23 15:04 | CARE MANAGER ---
Attempted post-discharge phone call, no answer.
== END 2022-10-18 15:21 | disposition home health service (06) | DRG 177 ==
LOC: ER 10-16 00:34 → 2ND 10-16 01:37
PROVIDERS: Nurse Practitioner Critical Care Medicine; Nurse Practitioner Family; Admitting Provider Student in an Organized Health Care Education/Training Program; Emergency Provider Emergency Medicine; PCP Internal Medicine Adolescent Medicine; Visit Provider Student in an Organized Health Care Education/Training Program
DX: J15.6 Pneumonia due to other Gram-negative bacteria (principal); J96.01 Acute respiratory failure with hypoxia; J44.1 Chronic obstructive pulmonary disease with (acute) exacerbation; I48.20 Chronic atrial fibrillation, unspecified; J44.0 Chronic obstructive pulmonary disease with (acute) lower respiratory infection; I10 Essential (primary) hypertension; E78.5 Hyperlipidemia, unspecified; G25.81 Restless legs syndrome; Z79.01 Long term (current) use of anticoagulants; Z79.899 Other long term (current) drug therapy; Z87.891 Personal history of nicotine dependence; Z99.81 Dependence on supplemental oxygen; F41.9 Anxiety disorder, unspecified; F32.A Depression, unspecified; Z96.653 Presence of artificial knee joint, bilateral
CPT/HCPCS: 36415; 71046; 80053; 81001; 82803; 83605; 83735; 83880; 84100; 84132; 84145; 84484; 85025; 85378; 86140; 87040; 87070; 87077; 87186; 87205; 87581; 87632; 87798; 93005; 93306; 94640; 94761; 97161; 97166; 99285; C9803; J0456; U0003; U0005

== ENCOUNTER → 2022-12-04 15:13 | Outpatient (POV) | payer MEDICARE, MEDICAID, SELFPAY ==
--- NOTE | 2022-12-04 15:38 | EXP.PAIN.SOA ---
[facility] Pain Management SOAP Note Subjective:: Patient is a pleasant 71-year-old female who presents today for follow-up. We are currently treating the patient for chronic sacroiliitis. Today she rates her pain a 8 out of 10. Patient denies any new trauma or injury. Patient states that approximately 3/4 few weeks ago she started having right-sided SI pain. Patient states she did wait to see if it was going to dissipate however it continued with no improvement. Previously the patient has had multiple left SI injections due to chronic sacroiliitis. Patient does get typically 100% relief lasting several months with these injections. Patient does describe this as a aching, throbbing sensation that is worse with increased activity. Patient cannot tolerate prolonged sitting, standing, walking due to the pain. Patient states this is affecting her ability to perform activities of daily living such as cooking and cleaning. Patient is currently managed with temazepam 15 mg daily from her primary care doctor. Patient denies any side effects from this medication. She states this medication does help with her anxiety. Her Donald is [phone]. Its been reviewed and appropriate. Review of Systems: General: No recent weight changes, no fever, no sleep disturbances Respiratory: No cough, no shortness of air, no recurring pulmonary infections Cardiovascular/peripheral vascular: No chest pain, no palpitations, no edema, no shortness of breath Gastrointestinal: No new onset incontinence, normal bowel movements reported Genitourinary: No new onset incontinence Musculoskeletal: Low back pain, right leg pain Psychiatric: [Normal mood/affect] Neurological: [Denies weakness in extremities], [denies balance issues] Objective:: Physical Exam: General: Alert and oriented x3, no acute distress, pleasant and cooperative Lungs: Respirations even and unlabored, symmetrical chest expansion Eyes: PERRL Musculoskeletal: Flexion and extension of lumbar [spine] somewhat guarded secondary to pain, [antalgic gait noted] extreme point tenderness along right SI and positive right, Angel Luis's, Edwin's, Gaenslen's, compression and distraction exam Neurological: Speech clear, no gross sensory deficit ORT score updated with minimal risk of 1 Assessment:: Low back pain, chronic sacroiliitis, chronic pain Plan:: Patient is experiencing significant pain along her low back radiating into her right leg. Patient did have limited range of motion of her lumbar spine and extreme point tenderness along her right SI with right positive Angel Luis's, Edwin's, Gaenslen's, compression and distraction exam. In the past the patient has gotten upwards of 90 to 100% relief with previous left SI injections. I have discussed with the patient that she may benefit from diagnostic right SI injection. Risk and benefits were discussed with the patient. She would like to proceed forward with this plan of care. I will order the patient prednisone 20 mg twice daily for 5 days and tizanidine 4 mg twice daily with a 14-day supply until we can get her in for this injection. We will schedule her for diagnostic right SI injection. Patient has been instructed to contact the clinic with any concerns before the next appointment. Dr. Sharma has reviewed this note and agrees with this plan of care. This note was dictated using voice recognition software and make contain errors or omissions. [facility] Disclaimer: The information contained in this section may have been updated after the patient was seen, as this information can be updated by other users. Medical History (Updated 11/06/22 @ 13:26 by Virgilio Nguyễn MD) Acute respiratory failure with hypoxia Allergic rhinitis Anxiety Asthma Atrial fibrillation COPD (chronic obstructive pulmonary disease) COPD (chronic obstructive pulmonary disease) COPD exacerbation Depression Dyspnea on exertion Encounter for screening for malignant neoplasm of lung in current smoker with 30
[2022-12-04 15:49] VITALS: BP 119/74; PULSE 79; RESP 18; O2SAT 97; BMI 33.5
== END | disposition home or self-care (01) ==
PROVIDERS: PCP Internal Medicine Adolescent Medicine; Visit Provider Nurse Practitioner Family
DX: M46.1 Sacroiliitis, not elsewhere classified (principal); M54.50 Low back pain, unspecified; G89.29 Other chronic pain
CPT/HCPCS: 99212; G0463

== ENCOUNTER → 2022-12-09 09:40 | Outpatient (CLI) | payer MEDICARE, MEDICAID, SELFPAY ==
[2022-12-09 10:44] LABS: Basophils % 0.4 % (0.1-2.0); Eosinophils % 0.2 % (0.1-12.0); Hemoglobin 14.5 g/dL (12.2-16.2); Lymphocytes # 2.3 K/mm3 (0.7-4.5); Lymphocytes % 26.4 % (10-50); Mean Corpuscular HGB Conc 31.5 g/dL (31.8-35.4); Mean Corpuscular Hemoglobin 30.9 pg (27.0-31.2); Mean Platelet Volume 7.5 fl (7.4-10.4); Monocytes # 0.6 K/mm3 (0.1-1.0); Monocytes % 6.3 % (1.7-9.3); Neutrophils # 5.8 K/mm3 (1.8-7.8); Neutrophils % 66.6 % (37.0-80.0); Platelet Count 517 K/mm3 (142-424); Red Cell Distribution Width 14.2 % (11.5-17.5); White Blood Count 8.8 K/mm3 (4.8-10.8)
[2022-12-09 10:56] LABS: Hemoglobin A1C 5.4 % (4.0-6.0)
[2022-12-09 11:03] LABS: Chloride 104 mmol/L (98-107)
[2022-12-09 11:04] LABS: Potassium 5.2 mmoL/L (3.5-5.1); Sodium 142 mmol/L (136-145)
[2022-12-09 11:06] LABS: Alanine Aminotransferase 19 U/L (12-78); Aspartate Amino Transferase 21 U/L (14-36); Blood Urea Nitrogen 21 mg/dl (7-17); Estimated Glomerular Filt Rate 49 ml/min (>60); GFR (African American) 59 ML/MIN (>60)
[2022-12-09 11:07] LABS: Albumin/Globulin Ratio 1.4 (1.1-1.8); Alkaline Phosphatase 89 U/L (38-126); Anion Gap 12.2 mEq/L (5-15); Bilirubin,Total 0.6 mg/dl (0.2-1.3); Calcium 9.6 mg/dl (8.4-10.2); Carbon Dioxide 31 mmol/L (22.0-30.0); Chol/HDL Ratio 2.6 (1-3.5); Cholesterol 201 mg/dl (140-200); Globulin 2.9 g/dL (1.3-3.2); Glucose 99 mg/dl (74-100); HDL Cholesterol 76 mg/dl (40-60); Total Protein,Serum 6.9 g/dl (6.3-8.2); Triglycerides 135 mg/dl (30-150); VLDL Cholesterol 27 mg/dL (0-40)
[2022-12-09 11:21] LABS: Direct LDL Cholesterol 66.75 mg/dL (100-129)
[2022-12-09 11:26] LABS: Free Thyroxine Index 2.4 ug/dL (5.93-13.13); T4 (Thyroxine) 7.7 ug/dl (5.53-11.0); Triiodothryronine (T3) Uptake 31 % (23.5-40.5)
[2022-12-09 11:40] LABS: Thyroid Stimulating Hormone 0.81 uIU/mL (0.465-4.68)
== END ==
LOC: LAB 09:41
PROVIDERS: PCP Internal Medicine Adolescent Medicine; Visit Provider Internal Medicine Adolescent Medicine
DX: I25.10 Atherosclerotic heart disease of native coronary artery without angina pectoris (principal); E78.5 Hyperlipidemia, unspecified; E05.90 Thyrotoxicosis, unspecified without thyrotoxic crisis or storm; E55.9 Vitamin D deficiency, unspecified; J43.9 Emphysema, unspecified; I48.91 Unspecified atrial fibrillation; Z79.899 Other long term (current) drug therapy
CPT/HCPCS: 36415; 80053; 80061; 83036; 84436; 84443; 84479; 85025

== ENCOUNTER → 2022-12-25 08:04 | Outpatient (CLI) | payer MEDICARE, MEDICAID, SELFPAY ==
--- NOTE | 2022-12-25 08:13 | MM_ITS ---
PROCEDURE INFORMATION: Exam: MG Bilateral Screening 3D Mammography Exam date and time: 12/25/2022 8:21 AM Age: 72 years old Clinical indication: Screening mammogram TECHNIQUE: Imaging protocol: Bilateral Screening tomosynthesis and 2D mammography including computer-aided detection (CAD) when performed. COMPARISON: 1. MG MM DIG MAMM DX UNILAT LT CAD 10/25/2020 1:00 PM 2. MG MM DIG SCREENING MAMM BI W/CAD 04/23/2020 1:10 PM FINDINGS: MAMMOGRAPHY: Breast composition: There are scattered areas of fibroglandular density. Mass: None. Architectural distortion: No new or suspicious architectural distortion. Calcifications: No new or suspicious calcifications are present Asymmetric density: No new or suspicious asymmetric density is present Skin thickening: None. Axillary adenopathy: None. IMPRESSION: No mammographic evidence of malignancy. Recommend annual screening mammography unless otherwise clinically indicated. ASSESSMENT: BI-RADS category 1: Negative
--- NOTE | 2022-12-25 08:14 | XR_ITS ---
FINAL REPORT TECHNIQUE: Bone densitometry calculations of the lumbar spine and hips were obtained. CLINICAL HISTORY: . post menopausal screening FINDINGS: DEXA BONE DENSITY AXIAL SKELETON Using L1-4, the bone mineral density of the spine is 0.924 g/cm2, corresponding to T-score of -1.1. Using the left hip, the bone mineral density of the femoral neck is 0.576 g/cm2, corresponding to a T-score of -2.5. Using the right hip, the bone mineral density of the femoral neck is 0.576 g/cm2, corresponding to a T-score of -2.5. NOTE: T-score: Standard deviation compared with peak bone mass of young adult mean. *Following the recommendations of the International Society of Bone Densitometry, classification of hip BMD is based on the lower of two T-scores; total hip or femoral neck. IMPRESSION: Osteoporosis: Lowest T-score is at or below -2.5. This patient's T-score meets the World Health Organization criteria for osteoporosis. FRAX not reported because: Some T-score at or spine total or hip total or femoral neck at or below -2.5. Reviewed, Interpreted and Dictated by Guillermo Banegas III, MD Transcribed by Rosetta Howard Authenticated and [facility]
== END ==
PROVIDERS: PCP Internal Medicine Adolescent Medicine; Visit Provider Internal Medicine Adolescent Medicine
DX: Z12.31 Encounter for screening mammogram for malignant neoplasm of breast (principal); Z78.0 Asymptomatic menopausal state
CPT/HCPCS: 77063; 77067; 77080

== ENCOUNTER → 2022-12-25 11:28 | Outpatient (POV) | payer MEDICARE, SELFPAY ==
--- NOTE | 2022-12-25 12:37 | EXP.PAIN.SOA ---
[facility] Pain Management SOAP Note Subjective:: Patient is a pleasant 72-year-old female who presents today for injection denial. We are currently treating the patient for chronic sacroiliitis. Today she rates her pain a 7 out of 10. Patient denies any new trauma or injury. Patient denies any change location or type of pain she experiences. Patient does describe this as a aching, throbbing sensation that is worse with increased activity. Patient cannot tolerate prolonged walking, standing, sitting due to the pain. Patient does state this affects her ability to perform activities of daily living such as cooking and cleaning. Patient is currently managed with temazepam 15 mg daily from her primary care doctor and baclofen 5 mg twice a day from our office. Patient denies any side effects from these medications. Patient does have a history of chronic sacroiliitis and had multiple injections in the past that provided upwards of 90 to 100% relief lasting several months. Patient does see physical therapy through home health and is been going for approximately 3 months with minimal improvement. Patient states she did just have an MRI at for follow-up of her scoliosis. Her Donald is [id number]. Its been reviewed and appropriate. Review of Systems: General: No recent weight changes, no fever, no sleep disturbances Respiratory: No cough, no shortness of air, no recurring pulmonary infections Cardiovascular/peripheral vascular: No chest pain, no palpitations, no edema, no shortness of breath Gastrointestinal: No new onset incontinence, normal bowel movements reported Genitourinary: No new onset incontinence Musculoskeletal: Low back pain, right leg pain Psychiatric: [Normal mood/affect] Neurological: [Denies weakness in extremities], [denies balance issues] Objective:: Physical Exam: General: Alert and oriented x3, no acute distress, pleasant and cooperative Lungs: Respirations even and unlabored, symmetrical chest expansion Eyes: PERRL Musculoskeletal: Flexion and extension of lumbar [spine] somewhat guarded secondary to pain, [antalgic gait noted] extreme point tenderness along right SI with positive right Angel Luis's, Edwin's, Gaenslen's, compression and distraction exam Neurological: Speech clear, no gross sensory deficit [facility] 12/22/2022 X-ray lumbar spine Findings: Multilevel degenerative changes identified diffusely throughout the thoracic and lumbar spine. No inducible instability in flexion or extension views with disc space narrowing most prominent at L3-L4 level. Mild anterior listhesis identified of L4 on L5 which is stable in both flexion and extension views. Mild curvature identified of the thoracic spine with convexity to the right of approximately 17 degrees Assessment:: Chronic sacroiliitis Plan:: Patient continues to experience significant pain in her low back along the right side with radiating symptoms into her right hip and groin. Patient did have limited range of motion of her lumbar spine along with positive right Angel Luis's, Edwin's, Gaenslen's, compression and distraction exam and extreme point tenderness along her right SI. Patient's updated imaging from [facility] did show multilevel degenerative disc disease with disc space narrowing most prominent at L3/L4 level and mild anterior listhesis of L4 on L5. I have discussed with the patient that she still may benefit from a diagnostic right SI injection. Risk and benefits were discussed with the patient. She would like to proceed forward with this plan of care. Patient's prior denial from insurance was related to not having any recent physical therapy, chiropractor or supervised home exercise program. Patient has and is currently seeing physical therapy through home health and has been going for approximately 3 months with minimal improvement. We will resubmit to insurance for a diagnostic right SI injection and contact the patient once we have approval. Patient has
[2022-12-25 12:43] VITALS: BP 134/80; PULSE 67; RESP 18; O2SAT 97; BMI 31.7
== END ==
PROVIDERS: PCP Internal Medicine Adolescent Medicine; Visit Provider Nurse Practitioner Family
DX: M46.1 Sacroiliitis, not elsewhere classified (principal)
CPT/HCPCS: 77063; 77067; 77080; 99212; G0463

== ENCOUNTER → 2023-01-02 09:43 | Outpatient (POV) | payer MEDICARE, MEDICAID, SELFPAY ==
[2023-01-02 10:06] VITALS: BP 155/93; PULSE 66; RESP 20; TEMP 36.7; O2SAT 97; BMI 31.7
--- NOTE | 2023-01-02 10:37 | A.OFFVIS_ITS ---
[facility] Pain Management SOAP Note Subjective:: This patient is a very pleasant 72-year-old female that comes to our clinic today for follow-up visit after receiving denial from insurance company regarding a right sacroiliac joint injection. Patient has had a right sacroiliac joint injection in the past with significant improvement terms of her overall symptoms. Symptoms include right low lumbar pain described as constant, sharp, stabbing at times. Right buttock pain with radiation into the right anterior thigh and knee joint. She rates her pain 8/10. Patient has positive Angel Luis's test on the right. Positive Gaenslen test on the right. Patient has tried and failed NSAIDs as well as acetaminophen. Patient has physical therapy which comes to her house once a week since August 2022 to present. The physical therapist comes every Sunday. The therapist is from [employer] [facility] [employer] [facility] [employer]. Patient states physical therapy seems to improve her overall symptoms in the lumbar spine. However, is not improving the right low lumbar back/buttock and right leg radicular symptoms. Patient continues with home exercise program which was provided to her from the physical therapy company. This does not seem to be helping the above symptoms. Upon examination patient has extreme point tenderness over the right sacroiliac joint. Patient's home exercise program includes stretching, ambulating and exercises. Objective:: Patient is awake alert Alva x3. In no acute distress. Flexion-extension lumbar spine very guarded secondary to pain. Deep tendon reflexes upper lower extremities normal. Motor strength upper lower extremities normal. There is no gross sensory deficit. Gait is normal. Assessment:: Degenerative disc disease lumbar spine multiple levels. Lumbar radiculopathy. Bilateral sacroiliitis. Plan:: Discussed in detail with the patient regarding treatment options. We will resubmit to insurance for right sacroiliac joint injection of cortisone. Patient has had this injection in the past with significant improvement lasting 3 to 6 months. She wishes to proceed. We will submit for approval. [facility] Disclaimer: The information contained in this section may have been updated after the patient was seen, as this information can be updated by other users. Medical History (Updated 11/06/22 @ 13:26 by Virgilio Nguyễn MD) Acute respiratory failure with hypoxia Allergic rhinitis Anxiety Asthma Atrial fibrillation COPD (chronic obstructive pulmonary disease) COPD (chronic obstructive pulmonary disease) COPD exacerbation Depression Dyspnea on exertion Encounter for screening for malignant neoplasm of lung in current smoker with 30 pack year history or greater Eosinophilia History of smoking 30 or more pack years SOB (shortness of breath) Surgical History H/O: hysterectomy History of bilateral knee replacement History of colon resection Family History Other No significant family history Social History Smoking Status: Former smoker pack-years: 45 years smoked: 56 how long ago did patient quit smoking: july 2022 quit status: quit date established second hand exposure: No alcohol intake: never substance use type: denies use current occupational status: other Travel in the last 8 weeks: None household members: spouse and children housing: house lives independently: No marital status: education level: college current occupational exposures/hazards: No caffeine:
== END ==
PROVIDERS: PCP Internal Medicine Adolescent Medicine; Visit Provider Nurse Anesthetist, Certified Registered
DX: M51.16 Intervertebral disc disorders with radiculopathy, lumbar region (principal); M46.1 Sacroiliitis, not elsewhere classified
CPT/HCPCS: 99212; G0463

== ENCOUNTER 2023-01-09 09:23 | Day surgery (SDC) | payer MEDICARE, MEDICAID, SELFPAY ==
[2023-01-09 09:40] VITALS: BP 147/86; PULSE 69; RESP 18; TEMP 36.4; O2SAT 96; BMI 31.7
[2023-01-09 09:47] VITALS: BP 152/85; PULSE 66; RESP 18; O2SAT 98
[2023-01-09 09:48] VITALS: BP 152/85; PULSE 66; RESP 18; O2SAT 98
[2023-01-09 09:52] VITALS: BP 157/91; PULSE 69; RESP 18; O2SAT 96
--- NOTE | 2023-01-09 10:06 | P.PCN_ITS ---
Procedure Date: 01/09/23 Time: 09:45 Anesthesiologist:: Romero Hough CRNA Complications:: None Pre-procedure Diagnosis:: Right sacroiliitis Post-procedure Diagnosis:: Same. Indications for Procedure:: Patient is a very pleasant 72-year-old female that comes our clinic today for right sacroiliac joint injection. Patient describes her right posterior hip pain as constant, dull, aching. Patient has had sacroiliac joint injections bilaterally in the past. Patient reports significant improvement in terms of her overall low lumbar and posterior hip pain. She rates her pain today 7/10. Procedure Details:: Procedure: Right sacroliliac joint injection under fluoroscopy Informed consent was obtained and the risk and benefits of the procedure were explained to the patient.~ The patient was taken to the procedure room and noninvasive monitors were placed including noninvasive blood pressure cuff and pulse oximeter.~ The patient was placed prone on the procedure table.~ The~ right hip was cleansed using Betadine as a cleansing solution.~ C-arm fluorosocpy was used to view the right SI joint.~ The skin and subcutaneous tissues were anesthetized using Lidocaine 1.5% and a 25-gauge needle.~ After this, a 22-gauge spinal needle was inserted under fluoroscopic guidance into the inferior aspect of the right SI joint.~ Omnipaque dye was injected and a good spread was seen throughout the joint.~ After this, approximately 5 mL of bupi vacaine 0.25% and Depo-Medrol 40 mg was incrementally injected into the sacroiliac joint.~ The patient tolerated the procedure well with no complications.~ The patient was observed in the Pain Clinic, then discharged home neurologically intact.~ Plan and Disposition:: Patient was discharged without incident.
== END 2023-01-09 09:52 | disposition home or self-care (01) ==
LOC: SC.PAINP 09:24
PROVIDERS: PCP Internal Medicine Adolescent Medicine; Visit Provider Nurse Anesthetist, Certified Registered
DX: M46.1 Sacroiliitis, not elsewhere classified (principal)
CPT/HCPCS: 27096; G0260; J1040

== ENCOUNTER → 2023-01-22 12:22 | Outpatient (CLI) | payer MEDICARE, MEDICAID, SELFPAY ==
--- NOTE | 2023-01-22 13:56 | PC.NURSE ---
Pt completed PFT and 6 Minute walk test. Albuterol 0.083% given via HHN, per protocol, Pt tolerated tx well.
--- NOTE | 2023-01-22 14:17 | CT_ITS ---
FINAL REPORT TECHNIQUE: Axial CT images of the chest were obtained without contrast. Low-dose protocol was utilized. This study was performed with techniques to keep radiation doses as low as reasonably achievable (ALARA). Individualized dose reduction techniques using automated exposure control or adjustment of mA and/or kV according to the patient's size were employed. CLINICAL HISTORY: quit smoking 2 months ago. smoked 2ppd x50 years copd, emphysema, cad, chf COMPARISON: CTA 07/10/2022 FINDINGS: CT CHEST WITHOUT, LOW DOSE SCREENING CT Di Vol: 2.90 mGy DLP: 96.38 mGy*cm There is no axillary, mediastinal, or hilar adenopathy. The heart size is normal. There are prominent coronary artery calcifications. There is no pleural or pericardial effusion. The lung windows show no suspicious mass or nodule. The lungs are clear. Limited images of the upper abdomen demonstrate probable gallstones in the gallbladder. Otherwise no abnormality identified. IMPRESSION: LR Category 1S: 12 month follow-up low-dose chest CT is recommended. S modifier: Prominent coronary artery calcifications. Reviewed, Interpreted and Dictated by Marisabel Lawson MD Transcribed by Silvia Sanford Authenticated and [facility]
== END ==
LOC: RT 12:22
PROVIDERS: PCP Internal Medicine Adolescent Medicine; Visit Provider Internal Medicine Pulmonary Disease
DX: R06.09 Other forms of dyspnea (principal); Z87.891 Personal history of nicotine dependence; Z12.2 Encounter for screening for malignant neoplasm of respiratory organs
CPT/HCPCS: 71271; 94060; 94618; 94726; 94729

== ENCOUNTER → 2023-01-31 15:12 | Outpatient (CLI) | payer MEDICARE, MEDICAID, SELFPAY ==
[2023-01-31 16:16] LABS: Basophils # 0.1 K/mm3 (0-0.2); Basophils % 1.5 % (0.1-2.0); Eosinophils # 0.3 K/mm3 (0.0-0.4); Eosinophils % 3.3 % (0.1-12.0); Hematocrit 49.5 % (37.0-47.0); Hemoglobin 16.4 g/dL (12.2-16.2); Lymphocytes # 2.6 K/mm3 (0.7-4.5); Lymphocytes % 33.6 % (10-50); Mean Corpuscular HGB Conc 33.2 g/dL (31.8-35.4); Mean Corpuscular Hemoglobin 31.5 pg (27.0-31.2); Monocytes # 0.5 K/mm3 (0.1-1.0); Monocytes % 6.3 % (1.7-9.3); Neutrophils # 4.3 K/mm3 (1.8-7.8); Neutrophils % 55.3 % (37.0-80.0); Platelet Count 374 K/mm3 (142-424); Red Blood Count 5.21 M/mm3 (4.20-5.40); Red Cell Distribution Width 13.9 % (11.5-17.5); White Blood Count 7.9 K/mm3 (4.8-10.8)
[2023-02-04 20:18] LABS: D001-IgE D pteronyssinus <0.10 kU/L (Class 0); D002-IgE D farinae <0.10 kU/L (Class 0); E001-IgE Cat Dander <0.10 kU/L (Class 0); E005-IgE Dog Dander 0.15 kU/L (Class 0/I); E072-IgE Mouse Urine <0.10 kU/L (Class 0); G002-IgE Bermuda Grass <0.10 kU/L (Class 0); G006-IgE Timothy Grass <0.10 kU/L (Class 0); I006-IgE Cockroach, German <0.10 kU/L (Class 0); Immunoglobulin E, Total 919 IU/mL (6-495); M001-IgE Penicillium chrysogen <0.10 kU/L (Class 0); M002-IgE Cladosporium herbarum <0.10 kU/L (Class 0); M003-IgE Aspergillus fumigatus <0.10 kU/L (Class 0); M006-IgE Alternaria alternata <0.10 kU/L (Class 0); T001-IgE Maple/Box Elder <0.10 kU/L (Class 0); T003-IgE Common Silver Birch <0.10 kU/L (Class 0); T006-IgE Cedar, Mountain <0.10 kU/L (Class 0); T007-IgE Oak, White <0.10 kU/L (Class 0); T008-IgE Elm, American <0.10 kU/L (Class 0); T010-IgE Walnut <0.10 kU/L (Class 0); T011-IgE Maple Leaf Sycamore <0.10 kU/L (Class 0); T014-IgE Cottonwood <0.10 kU/L (Class 0); T015-IgE Ash, White <0.10 kU/L (Class 0); T022-IgE Pecan, Hickory <0.10 kU/L (Class 0); T070-IgE White Mulberry <0.10 kU/L (Class 0); W001-IgE Ragweed, Short <0.10 kU/L (Class 0); W011-IgE Thistle, Russian <0.10 kU/L (Class 0); W014-IgE Pigweed, Common <0.10 kU/L (Class 0); W018-IgE Sheep Sorrel <0.10 kU/L (Class 0)
[2023-02-05 16:14] LABS: Strongyloides IgG Antibody Negative (Negative)
== END ==
LOC: LAB 15:13
PROVIDERS: PCP Internal Medicine Adolescent Medicine; Visit Provider Internal Medicine Pulmonary Disease
DX: J45.909 Unspecified asthma, uncomplicated (principal); D72.19 Other eosinophilia
CPT/HCPCS: 36415; 82785; 85025; 86003; 86682

== ENCOUNTER 2023-02-07 13:02 | Outpatient (CLI) | payer MEDICARE, MEDICAID, SELFPAY ==
[2023-02-07 13:12] VITALS: BP 127/78; PULSE 73; RESP 18; TEMP 36.6; O2SAT 97
== END 2023-02-07 13:40 | disposition home or self-care (01) ==
LOC: INF 13:02
PROVIDERS: PCP Nurse Practitioner Family; Visit Provider Nurse Practitioner Family
DX: M81.0 Age-related osteoporosis without current pathological fracture (principal)
CPT/HCPCS: 96372; J0897

== ENCOUNTER → 2023-02-07 14:00 | Outpatient (POV) | payer MEDICARE, MEDICAID, SELFPAY ==
--- NOTE | 2023-02-07 14:31 | EXP.PAIN.SOA ---
[facility] Pain Management SOAP Note Subjective:: Patient is a pleasant 72-year-old female who presents today for follow-up of right SI injection on 01/09/2023. We are currently treating the patient for degenerative disc disease of lumbar spine multilevels with lumbar radiculopathy symptoms, bilateral sacroiliitis. Today she states that she had at least 60 to 70% improvement following that last injection lasting approximately 2 weeks. She states the last couple of weeks she has noticed that it slowly has came back to her baseline. She does rate her pain a 6 out of 10 today. Patient denies any new trauma or injury. Patient denies any change to the location or type of pain she experiences. Patient does state it is all in her right low back with radiating symptoms into her right hip and right upper thigh stopping before her knee. She does describe this as a aching, throbbing sensation that is worse with increased activity. She does state that she cannot tolerate activities of daily living such as cooking and cleaning. She states that even yesterday she was unable to complete doing the dishes because she had to frequently stop and take breaks due to her worsening pain. Patient has tried [id number] Tylenol and ibuprofen with minimal improvement. She is also been to physical therapy every Sunday however she still has not gotten additional improvement around her low back along the right side into her right leg. She is currently prescribed temazepam 15 mg daily from her primary care doctor. Patient denies any side effects from this medication. Her Donald is [phone]. Its been reviewed and appropriate. Review of Systems: General: No recent weight changes, no fever, no sleep disturbances Respiratory: No cough, no shortness of air, no recurring pulmonary infections Cardiovascular/peripheral vascular: No chest pain, no palpitations, no edema, no shortness of breath Gastrointestinal: No new onset incontinence, normal bowel movements reported Genitourinary: No new onset incontinence Musculoskeletal: Low back pain, right leg pain Psychiatric: [Normal mood/affect] Neurological: [Denies weakness in extremities], [denies balance issues] Objective:: Physical Exam: General: Alert and oriented x3, no acute distress, pleasant and cooperative Lungs: Respirations even and unlabored, symmetrical chest expansion Eyes: PERRL Musculoskeletal: Flexion and extension of lumbar [spine] somewhat guarded secondary to pain, [antalgic gait noted] extreme point tenderness along right SI with positive right Angel Luis's, Edwin's, Gaenslen's, compression and distraction exam Neurological: Speech clear, no gross sensory deficit Assessment:: Degenerative disc disease of lumbar spine multilevels with lumbar radiculopathy symptoms, bilateral sacroiliitis Plan:: Patient is experiencing worsening pain in her right low back with radiating symptoms into her right upper thigh. Patient did have limited range of motion of her lumbar spine along with extreme point tenderness at her right SI. Patient did have a positive right Angel Luis's, Edwin's, Gaenslen's, compression and distraction exam. I have discussed with the patient that she may benefit from a repeat right SI injection. Risk and benefits were discussed with the patient and she would like to proceed forward with this plan of care. We will schedule her for a right SI injection. Patient has been instructed to contact the clinic with any concerns before the next appointment. Dr. Sharma has reviewed this note and agrees with this plan of care. This note was dictated using voice recognition software and make contain errors or omissions. [facility] Disclaimer: The information contained in this section may have been updated after the patient was seen, as this information can be updated by other users. Medical History Acute respiratory failure with hypoxia Allergic rhinitis Anxiety Asthma Atrial fi
[2023-02-07 15:06] VITALS: BP 136/84; PULSE 72; RESP 20; BMI 31.7
== END ==
LOC: SC.PAIN 14:01
PROVIDERS: PCP Internal Medicine Adolescent Medicine; Visit Provider Nurse Practitioner Family
DX: M51.16 Intervertebral disc disorders with radiculopathy, lumbar region (principal); M46.1 Sacroiliitis, not elsewhere classified
CPT/HCPCS: 96372; 99212; G0463; J0897

== ENCOUNTER 2023-02-20 08:32 | Day surgery (SDC) | payer MEDICARE, MEDICAID, SELFPAY ==
[2023-02-20 08:41] VITALS: BP 129/80; PULSE 70; RESP 18; TEMP 36.3; O2SAT 92; BMI 31.7
[2023-02-20 09:01] VITALS: BP 120/87; PULSE 71; RESP 18; O2SAT 96
[2023-02-20 09:02] VITALS: BP 120/87; PULSE 71; RESP 18; O2SAT 96
--- NOTE | 2023-02-20 09:06 | EXP.PAIN.PRO ---
Procedure Date: 02/20/23 Time: 09:00 Anesthesiologist:: Romero Hough CRNA Complications:: None Pre-procedure Diagnosis:: Right sacroiliitis Post-procedure Diagnosis:: Same Indications for Procedure:: Very pleasant 72-year-old female that comes our clinic today for right sacroiliac joint injection. Patient has had this in the past with significant improvement terms of her overall right posterior hip pain. Patient states today she has difficulty transitioning from sitting to standing. Difficulty ambulating for any length of time. She rates her pain 7/10. Procedure Details:: Procedure: Right sacroliliac joint injection under fluoroscopy Informed consent was obtained and the risk and benefits of the procedure were explained to the patient.~ The patient was taken to the procedure room and noninvasive monitors were placed including noninvasive blood pressure cuff and pulse oximeter.~ The patient was placed prone on the procedure table.~ The~ right hip was cleansed using Betadine as a cleansing solution.~ C-arm fluorosocpy was used to view the right SI joint.~ The skin and subcutaneous tissues were anesthetized using Lidocaine 1.5% and a 25-gauge needle.~ After this, a 22-gauge spinal needle was inserted under fluoroscopic guidance into the inferior aspect of the right SI joint.~ Omnipaque dye was injected and a good spread was seen throughout the joint.~ After this, approximately 5 mL of bupivacaine 0.25% and Depo-Medrol 40 mg was incrementally injected into the sacroiliac joint.~ The patient tolerated the procedure well with no complications.~ The patient was observed in the Pain Clinic, then discharged home neurologically intact.~ Plan and Disposition:: Patient was discharged without incident.
[2023-02-20 09:07] VITALS: BP 126/83; PULSE 69; RESP 18; O2SAT 93
== END 2023-02-20 09:07 | disposition home or self-care (01) ==
PROVIDERS: PCP Internal Medicine Adolescent Medicine; Visit Provider Nurse Anesthetist, Certified Registered
DX: M46.1 Sacroiliitis, not elsewhere classified (principal)
CPT/HCPCS: 27096; G0260; J1040

== ENCOUNTER → 2023-02-26 11:13 | Outpatient (POV) | payer MEDICARE, MEDICAID, SELFPAY ==
--- NOTE | 2023-02-26 11:40 | EXP.PAIN.SOA ---
[facility] Pain Management SOAP Note Subjective:: Patient is a pleasant 72-year-old female who presents today for follow-up of right SI injection on 02/20/2023. We are currently treating the patient for degenerative disc disease of lumbar spine multilevels with lumbar radiculopathy symptoms, bilateral sacroiliitis.? Today she states she has had upwards of 85 percent relief following this injection however now she is experiencing a pain in a new location. Patient does state that she is having significant sharp aching pains in the middle of her right buttocks. Patient denies any new trauma or injury. She states that it is constant and worse with activity such as walking. Patient cannot tolerate prolonged sitting, standing, walking due to her pain. Patient states that it does have some tingling symptoms going down into her right thigh. She states the pain makes it that she cannot do any activities of daily living such as cooking and cleaning.? Patient has tried [id number] Tylenol and ibuprofen with minimal improvement.? She has been to physical therapy every Sunday however she has not gotten significant relief.? She is currently prescribed temazepam 15 mg daily from her primary care doctor.? Patient denies any side effects from this medication.? Her Donald is [phone].? Its been reviewed and appropriate. Review of Systems: General: No recent weight changes, no fever, no sleep disturbances Respiratory: No cough, no shortness of air, no recurring pulmonary infections Cardiovascular/peripheral vascular: No chest pain, no palpitations,? no edema, no shortness of breath Gastrointestinal: No new onset incontinence, normal bowel movements reported Genitourinary: No new onset incontinence Musculoskeletal: Right buttocks pain Psychiatric: [Normal mood/affect] Neurological: [Denies weakness in extremities], [denies balance issues] Objective:: Physical Exam: General: Alert and oriented x3, no acute distress, pleasant and cooperative Lungs: Respirations even and unlabored, symmetrical chest expansion Eyes: PERRL Musculoskeletal: Flexion and extension of lumbar [spine] somewhat guarded secondary to pain, [antalgic gait noted] Neurological: Speech clear, no gross sensory deficit Assessment:: Degenerative disc disease of lumbar spine multilevels with lumbar radiculopathy symptoms, bilateral sacroiliitis, right piriformis syndrome Plan:: Patient is experiencing significant pain in her right buttocks with limited range of motion of her lumbar spine. Patient did have extreme point tenderness along her right piriformis muscle. I have discussed with the patient that she may benefit from piriformis injection. Risk and benefits were discussed with the patient and she would like to proceed forward with this plan of care. I will also order the patient methocarbamol 500 mg twice daily and provide a 2-week supply of this medication. I have counseled the patient to discontinue all other muscle relaxers while taking this medication. Patient will be scheduled for a right piriformis injection. Patient has been instructed to contact the clinic with any concerns before the next appointment. Dr. Sharma has reviewed this note and agrees with this plan of care. This note was dictated using voice recognition software and make contain errors or omissions. [facility] Disclaimer: The information contained in this section may have been updated after the patient was seen, as this information can be updated by other users. Medical History Acute respiratory failure with hypoxia Allergic rhinitis Anxiety Asthma Atrial fibrillation COPD (chronic obstructive pulmonary disease) COPD (chronic obstructive pulmonary disease) COPD exacerbation Depression Dyspnea on exertion Encounter for screening for malignant neoplasm of lung in current smoker with 30 pack year history or greater Eosinophilia History of smoking 30 or more pack years SOB (
[2023-02-26 12:45] VITALS: BP 160/90; PULSE 77; RESP 18; O2SAT 97; BMI 38.4
== END | disposition home or self-care (01) ==
PROVIDERS: PCP Internal Medicine Adolescent Medicine; Visit Provider Nurse Practitioner Family
DX: M51.16 Intervertebral disc disorders with radiculopathy, lumbar region (principal); M46.1 Sacroiliitis, not elsewhere classified; G57.01 Lesion of sciatic nerve, right lower limb
CPT/HCPCS: 99212; G0463

== ENCOUNTER 2023-03-06 09:17 | Day surgery (SDC) | payer MEDICARE, MEDICAID, SELFPAY ==
[2023-03-06 09:34] VITALS: BP 139/85; PULSE 64; RESP 18; TEMP 36.4; O2SAT 94; BMI 31.7
[2023-03-06 09:44] VITALS: BP 138/87; BP 154/91; PULSE 66; PULSE 72; RESP 18; O2SAT 94; O2SAT 98
--- NOTE | 2023-03-06 09:44 | EXP.PAIN.PRO ---
Procedure Date: 03/06/23 Time: 09:44 Anesthesiologist:: Romero Hough CRNA Complications:: None Pre-procedure Diagnosis:: Right piriformis syndrome. Post-procedure Diagnosis:: Same Indications for Procedure:: Very pleasant 72-year-old female that comes our clinic today with right piriformis syndrome pain. She has extreme point tenderness over the right piriformis muscle. She rates the pain 7/10. Procedure Details:: Details of the procedure explained to the patient. The patient taken the procedure room placed in the prone position on the fluoroscopy table. The area over the right buttock was cleaned using chlorhexidine as a cleansing solution. Using fluoroscopy guidance and a 22-gauge 3-1/2 inch spinal needle the right piriformis muscle was accessed. Needle position was confirmed using 0.5 cc of contrast dye with lateral spread noted. At this time after negative aspiration 4 cc of 0.25% Marcaine +40 mg Depo-Medrol was injected. Patient tolerated procedure without difficulty. No complications. Plan and Disposition:: Patient was discharged without incident.
== END 2023-03-06 09:44 | disposition home or self-care (01) ==
PROVIDERS: PCP Internal Medicine Adolescent Medicine; Visit Provider Nurse Anesthetist, Certified Registered
DX: G57.01 Lesion of sciatic nerve, right lower limb (principal)
CPT/HCPCS: 20552; 77002; J1040; Q9966

== ENCOUNTER → 2023-03-21 09:57 | Outpatient (POV) | payer MEDICARE, MEDICAID, SELFPAY ==
--- NOTE | 2023-03-21 10:25 | EXP.PAIN.SOA ---
[facility] Pain Management SOAP Note Subjective:: Patient is a pleasant 72-year-old female who presents today for follow-up of right piriformis injection on 03/06/2023. We are currently treating the patient for degenerative disc disease of lumbar spine multilevels with lumbar radiculopathy symptoms, bilateral sacroiliitis, right-sided piriformis syndrome. Today she states that she only had a few hours of relief following this injection. During those few hours she did state that her pain was 90% improved or better. She does rate her pain a 8 out of 10. Patient states she cannot tolerate prolonged sitting, standing or walking due to the pain. She does state that she has some difficulty ambulating with her hip on the right side. Activities such as going up the stairs or getting into a vehicle are difficult. Patient does use a cane for help with ambulation. She does state that she recently had a arthritis injection from her primary care doctor that is an injection every 6 months and that her pain seemed to change following this. Patient was recently started on methocarbamol 500 mg twice a day and she states that this did help however she only took it at night. Patient states that it did seem like it worked well with her sleeping medication to provide additional relief when she got up. Patient has tried [id number] Tylenol and ibuprofen with no additional relief. She has been to physical therapy with no additional improvement. Patient is currently prescribed temazepam 15 mg daily from her primary care doctor. Patient denies any side effects from this medication. Her Donald is [phone]. Its been reviewed and appropriate. Review of Systems: General: No recent weight changes, no fever, no sleep disturbances Respiratory: No cough, no shortness of air, no recurring pulmonary infections Cardiovascular/peripheral vascular: No chest pain, no palpitations, no edema, no shortness of breath Gastrointestinal: No new onset incontinence, normal bowel movements reported Genitourinary: No new onset incontinence Musculoskeletal: Right buttocks pain, right hip pain Psychiatric: [Normal mood/affect] Neurological: [Denies weakness in extremities], [denies balance issues] Objective:: Physical Exam: General: Alert and oriented x3, no acute distress, pleasant and cooperative Lungs: Respirations even and unlabored, symmetrical chest expansion Eyes: PERRL Musculoskeletal: Flexion and extension of right hip, lumbar [spine] somewhat guarded secondary to pain, [antalgic gait noted] Neurological: Speech clear, no gross sensory deficit Assessment:: Degenerative disc disease of lumbar spine multilevels with lumbar radiculopathy symptoms, bilateral sacroiliitis, right piriformis syndrome Plan:: Patient continues to experience significant pain in her right buttocks/hip area with limited range of motion. I have discussed with the patient that she may benefit from a intra-articular hip injection. Patient has tried and failed conservative therapy such as oral medications, heat and ice, topicals, physical therapy, at home stretching and exercise for longer than 6 weeks risk and benefits were discussed with the patient and she would like to proceed forward with this plan of care. I will also increase the methocarbamol to 750 mg and change it to at bedtime and order her compounding cream. Patient will be scheduled for a right hip intra-articular injection. Patient has been instructed to contact the clinic with any concerns before the next appointment. Dr. Sharma has reviewed this note and agrees with this plan of care. This note was dictated using voice recognition software and make contain errors or omissions. [facility] Disclaimer: The information contained in this section may have been updated after the patient was seen, as this information can be updated by other users. Medical History Acute respiratory failure with hypoxia Allerg
[2023-03-21 10:39] VITALS: BP 145/96; PULSE 72; RESP 20; O2SAT 97; BMI 34.1
== END | disposition home or self-care (01) ==
PROVIDERS: PCP Internal Medicine Adolescent Medicine; Visit Provider Nurse Practitioner Family
DX: M51.16 Intervertebral disc disorders with radiculopathy, lumbar region (principal); M46.1 Sacroiliitis, not elsewhere classified; G57.01 Lesion of sciatic nerve, right lower limb
CPT/HCPCS: 99212; G0463

== ENCOUNTER 2023-03-27 08:06 | Day surgery (SDC) | payer MEDICARE, MEDICAID, SELFPAY ==
[2023-03-27 08:20] VITALS: BP 166/98; PULSE 77; RESP 16; TEMP 36.4; O2SAT 96; BMI 31.7
[2023-03-27 08:48] VITALS: BP 141/87; PULSE 79; RESP 18; O2SAT 96
[2023-03-27 08:49] VITALS: BP 141/87; PULSE 79; RESP 19; O2SAT 96
[2023-03-27 08:58] VITALS: BP 151/91; PULSE 69; RESP 18; O2SAT 96
--- NOTE | 2023-03-27 09:21 | EXP.PAIN.PRO ---
Procedure Date: 03/27/23 Time: 08:45 Anesthesiologist:: Romero Hough CRNA Complications:: None Pre-procedure Diagnosis:: Osteoarthritis right hip Post-procedure Diagnosis:: Same. Indications for Procedure:: Patient is a pleasant 72-year-old female comes our clinic today for a right intra-articular hip injection. Patient has had bilateral intra-articular hip injections in the past. Patient reports left hip doing very well since initial injection. However, right hip is painful. She has difficulty with ambulation. She rates pain 8/10. She reports the initial intra-articular hip injection on the right only lasted 10 to 12 days. I discussed in detail with the patient regarding arthritis in the right hip and the need for a surgical consultation. She is requesting a consultation at the [facility]. We will arrange this for her. Procedure Details:: Details of the procedure were explained to the patient. The patient was taken to procedure room placed in the supine position. The area over the right hip was cleaned using chlorhexidine as a cleansing solution. Using fluoroscopy guidance a 3 and half inch 22-gauge spinal needle was used to access the right hip joint without difficulty. After negative aspiration 3 cc of 1% lidocaine +3 cc of 0.25% Marcaine and 40 mg of Depo-Medrol was injected. Needle was withdrawn. Band-Aid applied. Patient tolerated procedure without difficulty. There are no complications. Plan and Disposition:: Patient was discharged without incident.
== END 2023-03-27 08:58 | disposition home or self-care (01) ==
LOC: SC.PAINP 08:08
PROVIDERS: PCP Internal Medicine Adolescent Medicine; Visit Provider Nurse Anesthetist, Certified Registered
DX: M16.11 Unilateral primary osteoarthritis, right hip (principal)
CPT/HCPCS: 20610; 77002; J1040

== ENCOUNTER → 2023-04-11 09:09 | Outpatient (POV) | payer MEDICARE, MEDICAID, SELFPAY ==
--- NOTE | 2023-04-11 09:19 | EXP.PAIN.SOA ---
[facility] Pain Management SOAP Note Subjective:: Patient is a pleasant 72-year-old female who presents today for follow-up of right intra-articular injection on 03/27/2023.? We are currently treating the patient for degenerative disc disease of lumbar spine multilevels with lumbar radiculopathy symptoms, bilateral sacroiliitis, right-sided piriformis syndrome.? She states she had no improvement following this injection. She does rate her pain today an 8 out of 10. Patient denies any changes to the location or type of pain she experiences or any additional trauma or injury. Patient previously had a piriformis injection but only lasted a few hours giving 90% relief. She continues to be unable to tolerate prolonged sitting, standing or walking due to the pain.? She does state that she has some difficulty ambulating with her hip on the right side.? Activities such as going up the stairs or getting into a vehicle are difficult.? Patient does use a cane for help with ambulation.? At her last visit we did increase her methocarbamol to 750 mg at bedtime and order her compounding cream. Today she states that the muscle relaxer increase did help specifically helping her rest more. She does state that she has not noticed significant relief with the compounding cream. Patient has had bilateral knee replacements in the past by Dr. Lopez. At her last injection she was sent for referral for however she states she has not heard anything today she is requesting that we send a referral to Dr. Lopez for possible hip replacement. She has tried [id number] medications such as Tylenol and ibuprofen along with physical therapy with no additional relief. She is managed with temazepam 15 mg daily from her primary care doctor.? Patient denies any side effects from this medication.? Her Donald is [phone].? Its been reviewed and appropriate. Review of Systems: General: No recent weight changes, no fever, no sleep disturbances Respiratory: No cough, no shortness of air, no recurring pulmonary infections Cardiovascular/peripheral vascular: No chest pain, no palpitations,? no edema, no shortness of breath Gastrointestinal: No new onset incontinence, normal bowel movements reported Genitourinary: No new onset incontinence Musculoskeletal: Right buttocks pain, right hip pain Psychiatric: [Normal mood/affect] Neurological: [Denies weakness in extremities], [denies balance issues] Objective:: Physical Exam: General: Alert and oriented x3, no acute distress, pleasant and cooperative Lungs: Respirations even and unlabored, symmetrical chest expansion Eyes: PERRL Musculoskeletal: Flexion and extension of lumbar [spine] somewhat guarded secondary to pain, [antalgic gait noted] Neurological: Speech clear, no gross sensory deficit Assessment:: Degenerative disc disease of lumbar spine multilevels with lumbar radiculopathy symptoms, bilateral sacroiliitis, right-sided piriformis syndrome, right hip pain Plan:: Patient continues to have extensive pain in her right hip. I will send a referral today for Dr. Lopez for possible right hip replacement. I will send in a refill of her methocarbamol 750 mg at bedtime and provide a 1 month supply of this medication. Patient will follow-up in clinic for reevaluation of symptoms and follow-up in 1 month. Patient has been instructed to contact the clinic with any concerns before the next appointment. Dr. Sharma has reviewed this note and agrees with this plan of care. This note was dictated using voice recognition software and make contain errors or omissions. [facility] Disclaimer: The information contained in this section may have been updated after the patient was seen, as this information can be updated by other users. Medical History Acute respiratory failure with hypoxia Allergic rhinitis Anxiety Asthma Atrial fibrillation COPD (chronic obstructive pulmonary disease) COPD (chronic obstructive
[2023-04-11 09:21] VITALS: BP 124/85; PULSE 76; RESP 20; O2SAT 94; BMI 31.6
== END | disposition home or self-care (01) ==
PROVIDERS: PCP Internal Medicine Adolescent Medicine; Visit Provider Nurse Practitioner Family
DX: M51.16 Intervertebral disc disorders with radiculopathy, lumbar region (principal); M46.1 Sacroiliitis, not elsewhere classified; G57.01 Lesion of sciatic nerve, right lower limb; M25.551 Pain in right hip
CPT/HCPCS: 99212; G0463

== ENCOUNTER → 2023-04-16 10:32 | Outpatient (CLI) | payer MEDICARE, MEDICAID, SELFPAY ==
--- NOTE | 2023-04-16 10:46 | XR_ITS ---
FINAL REPORT CLINICAL HISTORY: RT HIP PAIN FINDINGS: RIGHT HIP Two views of the right hip an AP view of the pelvis demonstrate no acute fracture or dislocation. There are moderate degenerative changes of the right hip with moderate to severe degenerative changes of the left hip. There is a chronic calcification superior to the right greater trochanter. Degenerative changes are seen of the lower lumbar spine. Soft tissues are without acute abnormality. IMPRESSION: Degenerative changes without acute bony abnormality. Reviewed, Interpreted and Dictated by Guillermo Banegas III, MD Transcribed by Violette Sparks Authenticated and [facility]
== END ==
PROVIDERS: PCP Internal Medicine Adolescent Medicine; Visit Provider Anesthesiology
DX: M25.551 Pain in right hip (principal)
CPT/HCPCS: 73502

== ENCOUNTER → 2023-05-03 13:54 | Outpatient (CLI) | payer MEDICARE, MEDICAID, SELFPAY ==
--- NOTE | 2023-05-03 14:01 | XR_ITS ---
FINAL REPORT CLINICAL HISTORY: Shortness of breath COMPARISON: 10/15/2022 FINDINGS: There is no evidence of effusion or other pleural disease. The mediastinum has a normal appearance. The cardiac silhouette is unremarkable. Status post CABG. IMPRESSION: Unremarkable chest exam. Reviewed, Interpreted and Dictated by Shameka Kilgore MD Transcribed by Silvia Sanford Authenticated and [facility]
== END ==
LOC: RAD 13:55
PROVIDERS: PCP Internal Medicine Adolescent Medicine; Visit Provider Internal Medicine Pulmonary Disease
DX: R06.02 Shortness of breath (principal)
CPT/HCPCS: 71046

== ENCOUNTER → 2023-05-10 14:04 | Outpatient (POV) | payer MEDICARE, MEDICAID, SELFPAY ==
--- NOTE | 2023-05-10 14:20 | EXP.PAIN.SOA ---
[facility] Pain Management SOAP Note Subjective:: Patient is a pleasant 72-year-old female who presents today for follow-up. We are currently treating the patient for degenerative disc disease of lumbar spine with lumbar radiculopathy symptoms, chronic sacroiliitis, right-sided piriformis syndrome, chronic pain syndrome. Today she rates her pain an 8 out of 10. Patient denies any new trauma or injury. Patient denies any change to location or type of pain she experiences. Patient does continue to have significant pain in her low back and legs as well as her right hip. Patient does state her pain is an aching, throbbing sensation that is worse with increased activity. She states the pain does interfere with her ability to perform activities of daily living such as cooking or cleaning or even simple ambulation. Patient does state that she feels like she has no life due to her constant pain symptoms. She does state that she has finally heard from Dr. Lopez's office and that she is scheduled for May 21 for consultation. Patient has tried skmp-olx-pyuxdod medications such as Tylenol and ibuprofen along with heat and ice and topicals along with physical therapy with no additional relief. Patient does continue to do exercises at home however this is dependent on how bad her pain is from day-to-day. Patient is currently managed with temazepam 15 mg daily from her primary care doctor and compounding cream and methocarbamol 750 mg at bedtime from our office. Patient denies any side effects from these medications. She states she did notice some improvement with the muscle relaxer at bedtime however she continues to have constant pain. Her Donald is [id number]. Its been reviewed and appropriate. Review of Systems: General: No recent weight changes, no fever, no sleep disturbances Respiratory: No cough, no shortness of air, no recurring pulmonary infections Cardiovascular/peripheral vascular: No chest pain, no palpitations, no edema, no shortness of breath Gastrointestinal: No new onset incontinence, normal bowel movements reported Genitourinary: No new onset incontinence Musculoskeletal: Low back pain, bilateral leg pain Psychiatric: [Normal mood/affect] Neurological: [Denies weakness in extremities], [denies balance issues] Objective:: Physical Exam: General: Alert and oriented x3, no acute distress, pleasant and cooperative Lungs: Respirations even and unlabored, symmetrical chest expansion Eyes: PERRL Musculoskeletal: Flexion and extension of lumbar [spine] somewhat guarded secondary to pain, [antalgic gait noted] Neurological: Speech clear, no gross sensory deficit Assessment:: Degenerative disc disease of lumbar spine with lumbar radiculopathy symptoms, chronic sacroiliitis, right-sided piriformis syndrome, chronic pain syndrome Plan:: Patient is experiencing significant pain in her low back and legs with limited range of motion. I have discussed with the patient that she may benefit from a lumbar epidural steroid injection. Risk and benefits were discussed with the patient and she would like to proceed forward with this plan of care. Patient is on Eliquis and will have to come off this medication prior to her injection. I will also change her methocarbamol to 1000 mg at bedtime and provide a 1 month supply of this medication. Patient has tried and failed conservative therapy such as oral medications, heat and ice, topicals, physical therapy, at home stretching exercises for longer than 6 weeks. Patient will be scheduled for an LESI L4-L5. Patient has been instructed to contact the clinic with any concerns before the next appointment. Dr. Sharma has reviewed this note and agrees with this plan of care. This note was dictated using voice recognition software and make contain errors or omissions. [facility] Disclaimer: The information contained in this section may have been updated after the patient was seen, as this information can be updated by other users. [facility]
[2023-05-10 15:15] VITALS: BP 144/92; PULSE 85; RESP 18; TEMP 36.6; O2SAT 98; BMI 31.7
== END | disposition home or self-care (01) ==
PROVIDERS: PCP Internal Medicine Adolescent Medicine; Visit Provider Nurse Practitioner Family
DX: M51.16 Intervertebral disc disorders with radiculopathy, lumbar region (principal); M46.1 Sacroiliitis, not elsewhere classified; G57.01 Lesion of sciatic nerve, right lower limb; G89.4 Chronic pain syndrome
CPT/HCPCS: 99212; G0463

== ENCOUNTER 2023-05-22 08:39 | Day surgery (SDC) | payer MEDICARE, MEDICAID, SELFPAY ==
[2023-05-22 08:59] VITALS: BP 131/79; PULSE 84; RESP 18; TEMP 36.9; O2SAT 92; BMI 32.5
[2023-05-22 09:13] VITALS: BP 171/93; PULSE 82; RESP 18; O2SAT 96
[2023-05-22 09:14] VITALS: BP 171/93; PULSE 82; RESP 18; O2SAT 96
--- NOTE | 2023-05-22 09:20 | EXP.PAIN.PRO ---
Procedure Date: 05/22/23 Time: 09:05 Anesthesiologist:: Romero Hough CRNA Complications:: None Pre-procedure Diagnosis:: Degenerative disc lumbar spine. Lumbar radiculopathy. Lumbar spondylosis. Multilevel lumbar facet arthropathy. Post-procedure Diagnosis:: Same Indications for Procedure:: Patient is a very pleasant 72-year-old female that comes our clinic today for lumbar epidural steroid injection at the L4-5 level. Patient complains of low back pain as well as bilateral hip and leg radicular symptoms. Patient rates her pain 7/10. Procedure Details:: Procedure: Lumbar epidural steroid injection under fluoroscopy Informed consent was obtained and the risks and benefits of the procedure were explained to the patient. The patient was taken to the procedure room and noninvasive monitors placed, including noninvasive blood pressure cuff and pulse oximeter. The back was viewed using C-arm Fluoroscopy and prepped using Chloraprep as a cleansing solution and the L4-L5 interspace was palpated. Skin and subcutaneous tissues were anesthetized using lidocaine 1.5% and a 25-gauge needle. After this, an 18-gauge Touhy epidural needle was placed into the L4-L5 interspace and advanced using fluoroscopic guidance and loss of resistance to air until the epidural space was encountered. After confirmation of needle placement in the epidural space, with dye, a solution containing normal saline, 3 mL and Depo-Medrol 80 mg were incrementally injected into the lumbar epidural space. The patient tolerated the procedure well with no complications. The patient was observed in the Pain Clinic and then discharged home neurologically intact. Plan and Disposition:: Patient was discharged without incident.
[2023-05-22 09:27] VITALS: BP 140/95; PULSE 77; RESP 18; O2SAT 92
== END 2023-05-22 09:27 | disposition home or self-care (01) ==
PROVIDERS: PCP Internal Medicine Adolescent Medicine; Visit Provider Nurse Anesthetist, Certified Registered
DX: M51.16 Intervertebral disc disorders with radiculopathy, lumbar region (principal); M47.26 Other spondylosis with radiculopathy, lumbar region
CPT/HCPCS: 62323; J1040

== ENCOUNTER → 2023-06-06 09:35 | Outpatient (POV) | payer MEDICARE, MEDICAID, SELFPAY ==
[2023-06-06 09:46] VITALS: BP 136/89; PULSE 56; RESP 18; O2SAT 96; BMI 31.2
--- NOTE | 2023-06-06 09:50 | EXP.PAIN.SOA ---
[facility] Pain Management SOAP Note Subjective:: Patient is a pleasant 72-year-old female who presents today for follow-up of lumbar epidural steroid injection L4-L5 on 05/22/2023. We are currently treating the patient for degenerative disc disease of lumbar spine with lumbar radiculopathy symptoms, chronic sacroiliitis, right-sided piriformis syndrome, chronic pain, bilateral hip pain. Today she states that she has had at least 80% improvement of her low back symptoms and feels like it is still continuing to provide additional relief. She does rate her pain today a 7 out of 10 but states this is more related to her bilateral hip pain. She does describe this as an aching, throbbing sensation that is worse with increased activity and ambulation. It does interfere with her ability perform activities of daily living such as cooking and cleaning. She does believe that a lot of it does have to do with her arthritis. She is currently managed with temazepam 15 mg daily from her primary care doctor and methocarbamol 1000 mg at bedtime from our office along with compounding cream. Patient denies any side effects from these medications. She is requesting a refill of her muscle relaxer. She does continue to use a cane to help with ambulation. Her Donald is [id number]. Its been reviewed and appropriate. Review of Systems: General: No recent weight changes, no fever, no sleep disturbances Respiratory: No cough, no shortness of air, no recurring pulmonary infections Cardiovascular/peripheral vascular: No chest pain, no palpitations, no edema, no shortness of breath Gastrointestinal: No new onset incontinence, normal bowel movements reported Genitourinary: No new onset incontinence Musculoskeletal: Bilateral hip pain Psychiatric: [Normal mood/affect] Neurological: [Denies weakness in extremities], [denies balance issues] Objective:: Physical Exam: General: Alert and oriented x3, no acute distress, pleasant and cooperative Lungs: Respirations even and unlabored, symmetrical chest expansion Eyes: PERRL Musculoskeletal: Flexion and extension of bilateral hips somewhat guarded secondary to pain, [antalgic gait noted] Neurological: Speech clear, no gross sensory deficit Assessment:: Degenerative disc disease of lumbar spine with lumbar radiculopathy symptoms, chronic sacroiliitis, right-sided piriformis syndrome, chronic pain, bilateral hip pain Plan:: Patient has done extremely well with her lumbar epidural steroid injection and has had significant improvement of her low back pain. Patient is experiencing worsening pain in her bilateral hips with limited range of motion. I have discussed with the patient that she may benefit from bilateral hip injections. Risk and benefits were discussed with the patient and she would like to proceed forward with this plan of care. I will refill the patient's methocarbamol 1000 mg at bedtime and provide a 1 month supply of this medication. Patient will be scheduled for bilateral hip intra-articular injections. Patient has been instructed to contact the clinic with any concerns before the next appointment. Dr. Sharma has reviewed this note and agrees with this plan of care. This note was dictated using voice recognition software and make contain errors or omissions. [facility] Disclaimer: The information contained in this section may have been updated after the patient was seen, as this information can be updated by other users. Medical History (Updated 05/24/23 @ 11:39 by Virgilio Nguyễn MD) Acute respiratory failure with hypoxia Allergic rhinitis Anxiety Asthma Asthma exacerbation Atrial fibrillation COPD (chronic obstructive pulmonary disease) COPD (chronic obstructive pulmonary disease) COPD exacerbation Depression Dyspnea on exertion Encounter for screening for malignant neoplasm of lung in current smoker with 30 pack year history or greater Eosinophilia History of smoking 30 or more pack years Pneumonia SOB (shortness
== END | disposition home or self-care (01) ==
PROVIDERS: PCP Internal Medicine Adolescent Medicine; Visit Provider Nurse Practitioner Family
DX: M51.16 Intervertebral disc disorders with radiculopathy, lumbar region (principal); M46.1 Sacroiliitis, not elsewhere classified; G57.01 Lesion of sciatic nerve, right lower limb; G89.29 Other chronic pain; M25.551 Pain in right hip; M25.552 Pain in left hip
CPT/HCPCS: 99212; G0463

== ENCOUNTER 2023-06-19 08:47 | Day surgery (SDC) | payer MEDICARE, MEDICAID, SELFPAY ==
[2023-06-19 09:00] VITALS: BP 143/93; PULSE 80; RESP 18; TEMP 36.4; O2SAT 97; BMI 31.7
--- NOTE | 2023-06-19 09:33 | P.PCN_ITS ---
Procedure Date: 06/19/23 Time: 09:20 Anesthesiologist:: Romero Hough CRNA Complications:: None Pre-procedure Diagnosis:: Degenerative osteoarthritis bilateral hips. Chronic hip pain. Post-procedure Diagnosis:: Same. Indications for Procedure:: Patient is a very pleasant 72-year-old female that comes our clinic today for bilateral intra-articular hip injections. Patient complains of anterior hip pain bilaterally. Difficulty with ambulation due to bilateral hip pain. Transitioning from sitting to standing increases pain. She rates her pain 8/10 Procedure Details:: Details of the procedure were explained to the patient. The patient was taken to procedure room placed in the supine position. The area over the right hip was cleaned using chlorhexidine as a cleansing solution. Using fluoroscopy guidance a 3 and half inch 22-gauge spinal needle was used to access the right hip joint without difficulty. After negative aspiration 3 cc of 1% lidocaine +3 cc of 0.25% Marcaine and 40 mg of Depo-Medrol was injected. Needle was wi thdrawn. Band-Aid applied. Patient tolerated procedure without difficulty. There are no complications. Plan and Disposition:: Patient was discharged without incident.
[2023-06-19 09:39] VITALS: BP 144/94; PULSE 75; RESP 18; O2SAT 99
== END 2023-06-19 09:36 | disposition home or self-care (01) ==
PROVIDERS: PCP Internal Medicine Adolescent Medicine; Visit Provider Nurse Anesthetist, Certified Registered
DX: M16.0 Bilateral primary osteoarthritis of hip (principal); M25.551 Pain in right hip; M25.552 Pain in left hip; G89.29 Other chronic pain
CPT/HCPCS: 20610; 77002; J1040

== ENCOUNTER → 2023-07-04 09:28 | Outpatient (POV) | payer MEDICARE, MEDICAID, SELFPAY ==
[2023-07-04 09:44] VITALS: BP 132/91; PULSE 65; RESP 18; O2SAT 94; BMI 30.9
--- NOTE | 2023-07-04 09:58 | EXP.PAIN.SOA ---
[facility] Pain Management SOAP Note Subjective:: Patient is a pleasant 72-year-old female who presents today for follow-up of bilateral intra-articular hip injections on 06/19/2023. We are currently treating the patient for degenerative disc disease of lumbar spine with lumbar radiculopathy symptoms, bilateral hip pain, chronic pain, chronic sacroiliitis, right-sided piriformis syndrome. Today she rates her pain a 7 out of 10. Patient denies any new trauma or injury or any change location or type of pain she experiences. Patient states she did have 90 to 100% relief on her right hip and feels like it still providing additional relief however her left hip only gave approximately 70% relief lasting only 3 days. Today she does state that her pain is all in her left hip and describes it as an aching sensation that is worse with increased activity. Patient does state the pain interferes with her ability to perform activities of daily living such as cooking and cleaning. Patient does use a cane to help with ambulation. Patient is currently prescribed temazepam 15 mg daily from her PCP and methocarbamol 1000 milligrams at bedtime from our office along with compounding cream. She denies any side effects from this medication. Her Donald is [id number]. It has been reviewed and appropriate. Review of Systems: General: No recent weight changes, no fever, no sleep disturbances Respiratory: No cough, no shortness of air, no recurring pulmonary infections Cardiovascular/peripheral vascular: No chest pain, no palpitations, no edema, no shortness of breath Gastrointestinal: No new onset incontinence, normal bowel movements reported Genitourinary: No new onset incontinence Musculoskeletal: Left hip pain Psychiatric: [Normal mood/affect] Neurological: [Denies weakness in extremities], [denies balance issues] Objective:: Physical Exam: General: Alert and oriented x3, no acute distress, pleasant and cooperative Lungs: Respirations even and unlabored, symmetrical chest expansion Eyes: PERRL Musculoskeletal: Flexion and extension of left hip somewhat guarded secondary to pain, [antalgic gait noted] Neurological: Speech clear, no gross sensory deficit Assessment:: Degenerative disc disease of lumbar spine with lumbar radiculopathy symptoms, bilateral hip pain, chronic pain syndrome, chronic sacroiliitis, right piriformis syndrome Plan:: Patient has had 90 to 100% improvement of her right hip sensations however she is experiencing worsening pain in her left hip with limited range of motion. I have discussed with the patient that she may benefit from a repeat left hip intra-articular injection. Risk and benefits were discussed with patient and she would like to proceed forward with this plan of care. I will also send in refills of her methocarbamol 1000 mg at bedtime and provide a 1 month supply of this medication. Patient will be scheduled for a left hip intra-articular injection. Patient has been instructed to contact the clinic with any concerns before the next appointment. Dr. Sharma has reviewed this note and agrees with this plan of care. This note was dictated using voice recognition software and make contain errors or omissions. [facility] Disclaimer: The information contained in this section may have been updated after the patient was seen, as this information can be updated by other users. Medical History Acute respiratory failure with hypoxia Allergic rhinitis Anxiety Asthma Asthma exacerbation Atrial fibrillation Centrilobular emphysema COPD (chronic obstructive pulmonary disease) COPD (chronic obstructive pulmonary disease) COPD exacerbation Depression Dyspnea on exertion Encounter for screening for malignant neoplasm of lung in current smoker with 30 pack year history or greater Eosinophilia History of smoking 30 or more pack years Peripheral eosinophilia Pneumonia Severe persistent asthma SOB (shortness of breath) Stopped smoking with greater than 30 p
== END | disposition home or self-care (01) ==
PROVIDERS: PCP Internal Medicine Adolescent Medicine; Visit Provider Nurse Practitioner Family
DX: M51.16 Intervertebral disc disorders with radiculopathy, lumbar region (principal); M25.551 Pain in right hip; M25.552 Pain in left hip; G89.29 Other chronic pain; M46.1 Sacroiliitis, not elsewhere classified; G57.01 Lesion of sciatic nerve, right lower limb
CPT/HCPCS: 99212; G0463

== ENCOUNTER 2023-07-17 08:52 | Day surgery (SDC) | payer MEDICARE, MEDICAID, SELFPAY ==
[2023-07-17 09:14] VITALS: BP 123/84; PULSE 73; RESP 18; TEMP 36.8; O2SAT 91; BMI 30.9
[2023-07-17 09:25] VITALS: BP 121/85; PULSE 71; RESP 18; O2SAT 96
[2023-07-17 09:27] VITALS: BP 121/85; PULSE 71; RESP 18; O2SAT 96
[2023-07-17 09:32] VITALS: BP 139/68; PULSE 68; RESP 18; O2SAT 91
--- NOTE | 2023-07-17 09:44 | P.PCN_ITS ---
Procedure Date: 07/17/23 Time: 09:00 Anesthesiologist:: Romero Hough CRNA Complications:: None Pre-procedure Diagnosis:: Osteoarthritis left hip. Chronic left hip pain. Post-procedure Diagnosis:: Same. Indications for Procedure:: Very pleasant 72-year-old female that comes our clinic today for intra-articular left hip injection. She has had this procedure in the past with significant improvements lasting 2 to 3 months. She complains of left hip pain while sitting, standing, ambulating. Pain intensifies with activity. She rates her pain 9/10. Procedure Details:: Details of the procedure were explained to the patient. The patient was taken to procedure room placed in the supine position. The area over the right hip was cleaned using chlorhexidine as a cleansing solution. Using fluoroscopy guidance a 3 and half inch 22-gauge spinal needle was used to access the right hip joint without difficulty. After negative aspiration 3 cc of 1% lidocaine +3 cc of 0.25% Marcaine and 40 mg of Depo-Medrol was injected. Needle was wit hdrawn. Band-Aid applied. Patient tolerated procedure without difficulty. There are no complications. Plan and Disposition:: Patient was discharged without incident.
== END 2023-07-17 09:32 | disposition home or self-care (01) ==
PROVIDERS: PCP Internal Medicine Adolescent Medicine; Visit Provider Nurse Anesthetist, Certified Registered
DX: M16.12 Unilateral primary osteoarthritis, left hip (principal); M25.552 Pain in left hip; G89.29 Other chronic pain
CPT/HCPCS: 20610; 77002; J1040

== ENCOUNTER 2023-08-20 14:32 | Outpatient (CLI) | payer MEDICARE, MEDICAID, SELFPAY ==
[2023-08-20 14:51] VITALS: BP 135/89; PULSE 67; RESP 18; O2SAT 96
== END 2023-08-20 14:51 | disposition home or self-care (01) ==
LOC: INF 14:34
PROVIDERS: PCP Internal Medicine Adolescent Medicine; Visit Provider Nurse Practitioner Family
DX: M81.0 Age-related osteoporosis without current pathological fracture (principal)
CPT/HCPCS: 96372; J0897

== ENCOUNTER → 2023-09-20 13:26 | Outpatient (CLI) | payer MEDICARE, MEDICAID, SELFPAY ==
--- NOTE | 2023-09-20 13:30 | XR_ITS ---
FINAL REPORT CLINICAL HISTORY: SOB COMPARISON: 05/03/2023 FINDINGS: TWO-VIEW CHEST There is cardiomegaly. The patient is status post median sternotomy. There is mild atelectasis at the lung bases. There is no pneumothorax. IMPRESSION: Bibasilar atelectasis. Reviewed, Interpreted and Dictated by Guillermo Banegas III, MD Transcribed by Ilda Rodriguez Authenticated and [facility]
== END ==
PROVIDERS: PCP Internal Medicine Adolescent Medicine; Visit Provider Internal Medicine Pulmonary Disease
DX: R06.02 Shortness of breath (principal)
CPT/HCPCS: 71046

== ENCOUNTER → 2023-10-24 15:21 | Outpatient (POV) | payer MEDICARE, SELFPAY ==
--- NOTE | 2023-10-24 15:37 | EXP.PAIN.SOA ---
[facility] Pain Management SOAP Note Subjective:: Patient is a pleasant 72-year-old female who presents today for follow-up. We are currently treating the patient for degenerative disc disease of lumbar spine with lumbar radiculopathy symptoms, bilateral hip pain, chronic pain, chronic sacroiliitis, right-sided piriformis syndrome. Today she rates her pain a 8 out of 10. Patient denies any new trauma or injury. She does state that she has back to having a sacroiliitis flareup along the left side. She does describe this as an aching, throbbing sensation with it radiating into her hip and groin. Patient does state the pain interferes with her ability perform activities of daily living such as cooking and cleaning. Patient also cannot tolerate prolonged sitting along the left side. Patient has previously had significant relief following SI injections and is interested in repeating this at today's visit. Patient continues to use a cane to help with ambulation. Patient is currently prescribed temazepam 15 mg daily from her PCP and methocarbamol 1000 mg at bedtime from our office with compounding cream. She denies any side effects from this medication. She is requesting a refill of her muscle relaxer at today's visit. Her Donald has been reviewed and appropriate. Review of Systems: General: No recent weight changes, no fever, no sleep disturbances Respiratory: No cough, no shortness of air, no recurring pulmonary infections Cardiovascular/peripheral vascular: No chest pain, no palpitations, no edema, no shortness of breath Gastrointestinal: No new onset incontinence, normal bowel movements reported Genitourinary: No new onset incontinence Musculoskeletal: Left hip pain, left groin pain Psychiatric: [Normal mood/affect] Neurological: [Denies weakness in extremities], [denies balance issues] Objective:: Physical Exam: General: Alert and oriented x3, no acute distress, pleasant and cooperative Lungs: Respirations even and unlabored, symmetrical chest expansion Eyes: PERRL Musculoskeletal: Flexion and extension of lumbar [spine] somewhat guarded secondary to pain, [antalgic gait noted] positive point tenderness along left SI and left greater trochanteric bursa with a positive Angel Luis's, Edwin's, Gaenslen's, compression and distraction exam Neurological: Speech clear, no gross sensory deficit Assessment:: Degenerative disc disease of lumbar spine with lumbar radiculopathy symptoms, bilateral hip pain, chronic pain syndrome, chronic sacroiliitis, right-sided piriformis syndrome Plan:: Patient is experiencing worsening pain in her low back along the left side and into her left hip and left groin. Patient did have a positive point tenderness along her left SI and left greater trochanteric bursa with a positive Angel Luis's, Edwin's, Gaenslen's, compression and distraction exam. I have discussed with the patient that she may benefit from left SI and left bursa injection. Risk and benefits were discussed with the patient and she would like to proceed forward with this plan of care. Patient does have a history of chronic sacroiliitis. We will schedule the patient for a left SI and left bursa injection. I will refill the patient's methocarbamol 1000 mg at bedtime and provide a 1 month supply of this medication. Patient has been instructed to contact the clinic with any concerns before the next appointment. Dr. Sharma has reviewed this note and agrees with this plan of care. This note was dictated using voice recognition software and make contain errors or omissions. [facility] Disclaimer: The information contained in this section may have been updated after the patient was seen, as this information can be updated by other users. Medical History Acute respiratory failure with hypoxia Allergic rhinitis Anxiety Asthma Asthma exacerbation Atrial fibrillation Centrilobular emphysema COPD (chronic obstructive pulmonary disease) COPD (chronic obstructive pulmonary disease)
[2023-10-24 15:54] VITALS: BP 161/94; PULSE 71; RESP 18; O2SAT 95; BMI 29.2
== END | disposition home or self-care (01) ==
PROVIDERS: PCP Internal Medicine Adolescent Medicine; Visit Provider Nurse Practitioner Family
DX: M51.16 Intervertebral disc disorders with radiculopathy, lumbar region (principal); M25.551 Pain in right hip; M25.552 Pain in left hip; G89.4 Chronic pain syndrome; M46.1 Sacroiliitis, not elsewhere classified; G57.01 Lesion of sciatic nerve, right lower limb
CPT/HCPCS: 99212; G0463

== ENCOUNTER 2023-12-05 18:55 | Emergency (ER) | payer MEDICARE, SELFPAY ==
[2023-12-05 19:09] VITALS: BP 164/109; PULSE 52; RESP 22; TEMP 36.9; O2SAT 96; BMI 29.2
[2023-12-05 19:21] VITALS: BP 171/105; PULSE 52; RESP 15; O2SAT 94
--- NOTE | 2023-12-05 19:28 | PC.NURSE ---
in room talking with patient at this time.
[2023-12-05 19:32] VITALS: BP 195/125; PULSE 57; RESP 14; O2SAT 93
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
[2023-12-05] MEDS: APIXABAN 5MG TABLET 5 MG PO (20:08)
[2023-12-05] MEDS: BISOPROLOL 5MG TABLET 5 MG PO (20:09)
[2023-12-05] MEDS: METHOCARBAMOL 500MG TABLET 1000 MG PO (20:09)
[2023-12-05] MEDS: LORATADINE 10MG TABLET 10 MG PO (20:09)
[2023-12-05] MEDS: ROPINIROLE 1MG TABLET 2 MG PO (20:09)
[2023-12-05] MEDS: FAMOTIDINE 20MG TABLET 20 MG PO (20:10)
[2023-12-05] MEDS: FUROSEMIDE 40 MG TABLET 20 MG PO (20:10)
[2023-12-05] MEDS: CITALOPRAM 40MG TABLET 20 MG PO (20:19)
[2023-12-05] MEDS: TEMAZEPAM 15MG CAPSULE 15 MG PO (20:19)
[2023-12-05] MEDS: ASPIRIN EC 81MG TABLET 81 MG PO (20:20)
[2023-12-05 20:31] VITALS: BP 195/125; PULSE 57; RESP 20; TEMP 36.9; O2SAT 93
== END 2023-12-05 20:40 | disposition home or self-care (01) ==
PROVIDERS: Emergency Provider Emergency Medicine; PCP Internal Medicine Adolescent Medicine
DX: G25.81 Restless legs syndrome (principal); I10 Essential (primary) hypertension; I25.10 Atherosclerotic heart disease of native coronary artery without angina pectoris; J44.9 Chronic obstructive pulmonary disease, unspecified; I48.91 Unspecified atrial fibrillation; F17.210 Nicotine dependence, cigarettes, uncomplicated
CPT/HCPCS: 99283

== ENCOUNTER 2023-12-25 09:54 | Day surgery (SDC) | payer MEDICARE, SELFPAY ==
[2023-12-25 10:17] VITALS: BP 151/83; PULSE 63; RESP 16; TEMP 36.5; O2SAT 96; BMI 28.3
[2023-12-25] MEDS: BUPIVACAINE 0.25% 10ML INJ 25 MG IJ (10:27)
[2023-12-25] MEDS: LIDOCAINE 1% 5ML PF VIAL 5 ML (10:29)
[2023-12-25 10:30] VITALS: BP 156/94; PULSE 63; RESP 18; O2SAT 96
[2023-12-25] MEDS: methylPREDNISolone ACETATE 80MG/ML VIAL 80 MG (10:30)
--- NOTE | 2023-12-25 10:38 | EXP.PAIN.PRO ---
Procedure Date: 12/25/23 Time: 10:30 Anesthesiologist:: Romero Hough CRNA Complications:: None Pre-procedure Diagnosis:: Left sacroiliitis Post-procedure Diagnosis:: Same Indications for Procedure:: Patient is a very pleasant 73-year-old female comes our clinic today for left sacroiliac joint injection. She has extreme point tenderness over the left sacroiliac joint area. She reports difficulty transitioning from sitting to standing. Difficulty with ambulation for any distance due to left posterior hip pain. She rates her pain 8/10. Procedure Details:: Procedure: Left sacroiliac injection under fluoroscopy Informed consent was obtained and the risk and benefits of the procedure were explained to the patient.~ The patient was taken to the procedure room and noninvasive monitors were placed including noninvasive blood pressure cuff and pulse oximeter.~ The patient was placed prone on the procedure table.~ The~ left hip was cleansed using Betadine as a cleansing solution.~ C-arm fluorosocpy was used to view the left SI joint.~ The skin and subcutaneous tissues were anesthetized using Lidocaine 1.5% and a 25-gauge needle.~ After this, a 22-gauge spinal needle was inserted under fluoroscopic guidance into the inferior aspect of the left SI joint.~ Omnipaque dye was injected and a good spread was seen throughout the joint.~ After this, approximately 5 mL of bupivacaine 0.25% and Depo-Medrol 40 mg was incrementally injected into the sacroiliac joint.~ The patient tolerated the procedure well with no complications.~ The patient was observed in the Pain Clinic for a period of 30-45 minutes, then discharged home neurologically intact.~ Plan and Disposition:: Patient was discharged without incident.
[2023-12-25 10:39] VITALS: BP 156/94; PULSE 63; RESP 18; O2SAT 96
[2023-12-25 10:44] VITALS: BP 159/99; PULSE 63; RESP 18; O2SAT 96
== END 2023-12-25 10:44 | disposition home or self-care (01) ==
PROVIDERS: PCP Internal Medicine Adolescent Medicine; Visit Provider Nurse Anesthetist, Certified Registered
DX: M46.1 Sacroiliitis, not elsewhere classified (principal)
CPT/HCPCS: 27096; G0260; J1040

== ENCOUNTER 2024-01-08 08:20 | Day surgery (SDC) | payer MEDICARE, SELFPAY ==
[2024-01-08 08:51] VITALS: BP 181/95; PULSE 68; RESP 18; TEMP 36.5; O2SAT 96; BMI 29.0
[2024-01-08] MEDS: BUPIVACAINE 0.25% 10ML INJ 25 MG IJ (09:24)
[2024-01-08] MEDS: LIDOCAINE 1% 5ML PF VIAL 5 ML (09:24)
[2024-01-08] MEDS: methylPREDNISolone ACETATE 80MG/ML VIAL 80 MG (09:24)
[2024-01-08 09:30] VITALS: BP 183/96; PULSE 61; RESP 18; O2SAT 96
--- NOTE | 2024-01-08 09:44 | P.PCN_ITS ---
Procedure Date: 01/08/24 Time: 09:20 Anesthesiologist:: Romero Hough CRNA Complications:: None Pre-procedure Diagnosis:: Left trochanteric bursitis Post-procedure Diagnosis:: Same. Indications for Procedure:: Very pleasant 71-year-old female who comes our clinic today for left trochanteric bursa injection. She has extreme point tenderness over the left lateral hip area. She rates her pain 9/10. Patient states she is unable to sleep at night on that side due to intense pain. Ambulation is causing pain over the left lateral hip. Procedure Details:: Procedure:Left trochanteric bursa injection under fluoroscopy We then moved to the left trochanteric bursa.~ C-arm fluoroscopy was used to view the left greater trochanter.~ The skin and subcutaneous tissues overlying the left greater trochanter were anesthetized using lidocaine, 1.5% and a 25- gauge needle.~ After this, a 22-gauge spinal needle was inserted and advanced until it contacted the left greater trochanter.~ Dye was injected and good spread was seen throughout the left trochanteric bursa. After this, approximately 5 mL of bupivacaine, 0.25% and Depo-Medrol, 40 mg was incrementally injected into the left trochanteric bursa.~ The patient tolerated the procedure well with no complications. Plan and Disposition:: Patient was discharged without incident.
== END 2024-01-08 09:30 | disposition home or self-care (01) ==
LOC: SC.PAINP 08:21
PROVIDERS: PCP Internal Medicine Adolescent Medicine; Visit Provider Nurse Anesthetist, Certified Registered
DX: M70.62 Trochanteric bursitis, left hip (principal)
CPT/HCPCS: 20610; J1040

== ENCOUNTER 2024-01-11 12:19 | Outpatient (CLI) | payer MEDICARE, SELFPAY ==
[2024-01-11 13:34] LABS: Basophils % 0.3 % (0.1-2.0); Eosinophils % 0.2 % (0.1-12.0); Hematocrit 48.6 % (37.0-47.0); Hemoglobin 16.1 g/dL (12.2-16.2); Lymphocytes # 2.4 K/mm3 (0.7-4.5); Lymphocytes % 20.6 % (10-50); Mean Corpuscular HGB Conc 33.2 g/dL (31.8-35.4); Mean Corpuscular Hemoglobin 31.2 pg (27.0-31.2); Mean Corpuscular Volume 93.9 fl (81-99); Mean Platelet Volume 8.2 fl (7.4-10.4); Monocytes # 0.6 K/mm3 (0.1-1.0); Neutrophils # 8.5 K/mm3 (1.8-7.8); Neutrophils % 73.9 % (37.0-80.0); Platelet Count 313 K/mm3 (142-424); Red Blood Count 5.18 M/mm3 (4.20-5.40); Red Cell Distribution Width 13.6 % (11.5-17.5); White Blood Count 11.5 K/mm3 (4.8-10.8)
[2024-01-11 14:10] LABS: Alanine Aminotransferase 22 U/L (12-78); Albumin Level 3.8 g/dl (3.5-5.0); Albumin/Globulin Ratio 1.6 (1.1-1.8); Alkaline Phosphatase 65 U/L (38-126); Aspartate Amino Transferase 24 U/L (14-36); Bilirubin,Total 0.6 mg/dl (0.2-1.3); Blood Urea Nitrogen 10 mg/dl (7-17); Carbon Dioxide 27 mmol/L (22.0-30.0); Chloride 108 mmol/L (98-107); Chol/HDL Ratio 2.4 (1-3.5); Cholesterol 196 mg/dl (140-200); Estimated Glomerular Filt Rate 71 ml/min (>60); GFR (African American) 85 ML/MIN (>60); Globulin 2.4 g/dL (1.3-3.2); Glucose 93 mg/dl (74-100); HDL Cholesterol 82 mg/dl (40-60); Sodium 140 mmol/L (136-145); Total Protein,Serum 6.2 g/dl (6.3-8.2); Triglycerides 194 mg/dl (30-150); VLDL Cholesterol 39 mg/dL (0-40)
[2024-01-11 14:21] LABS: Direct LDL Cholesterol 76.71 mg/dL (100-129)
[2024-01-11 14:41] LABS: Thyroid Stimulating Hormone 2.22 uIU/mL (0.465-4.68)
== END 2024-01-11 23:59 ==
LOC: LAB 12:20
PROVIDERS: PCP Internal Medicine Adolescent Medicine; Visit Provider Internal Medicine Adolescent Medicine
DX: I25.10 Atherosclerotic heart disease of native coronary artery without angina pectoris (principal); E78.5 Hyperlipidemia, unspecified; G25.81 Restless legs syndrome; F17.210 Nicotine dependence, cigarettes, uncomplicated
CPT/HCPCS: 36415; 80053; 80061; 84443; 85025

== ENCOUNTER 2024-01-18 10:11 | Outpatient (CLI) | payer MEDICARE, SELFPAY ==
--- NOTE | 2024-01-18 10:18 | CT_ITS ---
FINAL REPORT TECHNIQUE: Thin section axial images were obtained from the lung apices to the upper abdomen by computed tomography. Reformatted images were obtained and reviewed. This study was performed with techniques to keep radiation doses al low as reasonably achievable (ALARA). Individualized dose reduction techniques using automated exposure control or adjustment of mA and/or kV according to the patient's size were employed. CLINICAL HISTORY: lung cancer screening COMPARISON: 01/22/2023 FINDINGS: CHEST CT LOW DOSE 72-year-old female, former smoker who quit 1 year ago, [id number] history. CTDI vol (mGy): 2.9 DLP (mGy-cm): 86.47 There is no axillary adenopathy. There is no mediastinal or hilar mass or adenopathy. The heart is normal in size, with dense coronary artery calcifications present.. There is no pericardial or pleural effusion. A left upper lobe calcified granuloma is present. There are median sternotomy wires present. Lung window images demonstrate no suspicious infiltrate or nodule. Limited images of the upper abdomen are unremarkable. Notes that the gallbladder is not well-visualized on this examination. IMPRESSION: Lung-RADS category 1S, with the S recommendation for severe coronary artery changes.. Recommend 12 month follow up low dose chest CT. Reviewed, Interpreted and Dictated by Luciano Apple MD Transcribed by Antonia Sepulveda Authenticated and . [facility]
== END 2024-01-18 23:59 ==
LOC: RAD 10:12
PROVIDERS: PCP Internal Medicine Adolescent Medicine; Visit Provider Internal Medicine Pulmonary Disease
DX: F17.210 Nicotine dependence, cigarettes, uncomplicated (principal)
CPT/HCPCS: 71271

== ENCOUNTER 2024-02-06 11:44 | Outpatient (POV) | payer MEDICARE, SELFPAY ==
[2024-02-06 11:57] VITALS: BP 168/101; PULSE 68; RESP 18; O2SAT 97; BMI 31.2
--- NOTE | 2024-02-06 12:11 | A.OFFVIS_ITS ---
[facility] Pain Management SOAP Note Subjective:: Patient is a pleasant 73-year-old female who presents today for follow-up of left greater trochanteric bursa injection on 01/08/2024 today she rates her pain a 9 out of 10. She denies any new trauma or injury. She states that she did have about 60% improvement following this injection and it did last about 2 weeks however she is back to her baseline. Patient does state today that her symptoms are more involving the entire left leg. She states the pain radiates from her low back to her hip down all the way to her foot. Patient states that this is a constant aching, throbbing sensation with numbness and tingling. She states the pain is interfering with her activities of daily living such as cooking and cleaning and that she has no quality of life. Patient states that due to her heart history she has very limited options for medication. Patient states the pain is just debilitating and all she wants to do is laying down due to the constant pain. Patient continues to use a cane to help with ambulation. Patient is currently prescribed temazepam 15 mg daily from her PCP and me thocarbamol 1000 mg at bedtime from our office with compounding cream. She denies any side effects from this medication. She does state due to the worsening pain she has taken one of the methocarbamol 500 mg during the day and it has helped a little bit. Patient does also continue to use her restless leg medication from her primary care provider for her charley horses that she experiences on a regular basis in her feet. Her Donald has been reviewed and appropriate. Review of Systems: General: No recent weight changes, no fever, no sleep disturbances Respiratory: No cough, no shortness of air, no recurring pulmonary infections Cardiovascular/peripheral vascular: No chest pain, no palpitations, no edema, no shortness of breath Gastrointestinal: No new onset incontinence, normal bowel movements reported Genitourinary: No new onset incontinence Musculoskeletal: Low back pain, left hip pain, left leg pain, left foot pain Psychiatric: [Normal mood/affect] Neurological: [Denies weakness in extremities], [denies balance issues] Objective:: Physical Exam: General: Alert and oriented x3, no acute distress, pleasant and cooperative Lungs: Respirations even and unlabored, symmetrical chest expansion Eyes: PERRL Musculoskeletal: Flexion and extension of lumbar [spine] somewhat guarded secondary to pain, [antalgic gait noted] positive left leg raise with decreased sensation to light touch and decreased reflexes Neurological: Speech clear, no gross sensory deficit Assessment:: degenerative disc disease of lumbar spine with lumbar radiculopathy symptoms, bilateral hip pain, chronic pain, chronic sacroiliitis, right-sided piriformis syndrome, left leg pain Plan:: Patient is experiencing worsening pain in her low back with radiating symptoms down her entire left extremity. Patient did have limited range of motion of her lumbar spine with a positive left leg raise and decreased sensation to light touch and decreased reflexes during today's exam. I have discussed with the patient that she may benefit from a left transforaminal epidural steroid injection. Risk and benefits were discussed with patient and she would like to proceed forward with this plan of care. Patient is not on any blood thinners. I have counseled the patient in future we will plan on increasing her methocarbamol prescription to 500 mg 4 times daily to allow for her to take this twice during the day and 2 tablets at night. Patient is agreeable to this change. Patient has tried and failed conservative therapy such as oral medication, heat and ice, topicals, previous history of physical therapy and at home stretching exercise. Patient does have significant comorbidities including coronary artery disease, atrial fibrillation and significant COPD that do not allow for her to have current physical therapy due to the aggravating symptoms. Patient will be scheduled for a left transforaminal epidural steroid injection L4-L5 and L5-S1 under fluoroscopy. Patient has not had this injection in the past. Patient has been instructed to contact the clinic with any concerns before the next appointment. Dr. Sharma has reviewed this note and agrees with this plan of care. This note was dictated using voice recognition software and make contain errors or omissions. [facility] Disclaimer: The information contained in this section may have been updated after the patient was seen, as this information can be updated by other users. Medical History Acute respiratory failure with hypoxia Allergic rhinitis Anxiety Asthma Asthma exacerbation Atrial fibrillation Centrilobular emphysema COPD (chronic obstructive pulmonary disease) COPD (chronic obstructive pulmonary disease) COPD exacerbation Depression Dyspnea on exertion Encounter for screening for malignant neoplasm of lung in current smoker with 30 pack year history or greater Eosinophilia History of smoking 30 or more pack years Peripheral eosinophilia Pneumonia Severe persistent asthma SOB (shortness of breath) Stopped smoking with greater than 30 pack year history Surgical History H/O: hysterectomy History of bilateral knee replacement History of colon resection Family History Other No significant family history Social History Smoking Status: Current every day smoker tobacco type: cigarettes years smoked: 56 how long ago did patient quit smoking: july 2022 quit status: quit date established second hand exposure: No alcohol intake: never substance use type: denies use current occupational status: retired Travel in the last 8 weeks: None household members: spouse and children housing: house lives independently: No marital status: education level: college current occupational exposures/hazards: No caffeine: Yes
== END 2024-02-06 23:59 ==
LOC: SC.PAIN 11:45
PROVIDERS: PCP Internal Medicine Adolescent Medicine; Visit Provider Nurse Practitioner Family
DX: M51.16 Intervertebral disc disorders with radiculopathy, lumbar region (principal); M25.551 Pain in right hip; M25.552 Pain in left hip; G89.29 Other chronic pain; M46.1 Sacroiliitis, not elsewhere classified; G57.01 Lesion of sciatic nerve, right lower limb; M79.605 Pain in left leg
CPT/HCPCS: 99212; G0463

== ENCOUNTER 2024-03-11 13:01 | Day surgery (SDC) | payer MEDICARE, SELFPAY ==
[2024-03-11 13:21] VITALS: BP 141/97; PULSE 60; RESP 18; O2SAT 96; BMI 29.2
[2024-03-11 13:41] VITALS: BP 172/94; PULSE 62; RESP 18; O2SAT 98
[2024-03-11] MEDS: methylPREDNISolone ACETATE 80MG/ML VIAL 80 MG (13:41)
[2024-03-11] MEDS: IOPAMIDOL-200 (41%);10ML VIAL 2 ML IV (13:41)
[2024-03-11] MEDS: LIDOCAINE 1% 5ML PF VIAL 5 ML (13:41)
[2024-03-11 13:42] VITALS: BP 172/94; PULSE 62; RESP 18; O2SAT 94
--- NOTE | 2024-03-11 13:47 | EXP.PAIN.PRO ---
Procedure Date: 03/11/24 Time: 13:20 Anesthesiologist:: Romero Hough CRNA Complications:: None Pre-procedure Diagnosis:: Degenerative disc lumbar spine multilevels. Lumbar radiculopathy. Lumbar spondylosis. Multilevel lumbar facet arthropathy. Lumbar spondylolisthesis 4 5. Post-procedure Diagnosis:: Same. Indications for Procedure:: Patient is a very pleasant 73-year-old female comes our clinic today for left transforaminal epidural steroid injection L4-5, L5-S1. Patient has low lumbar back pain left greater than right. Left hip and leg radicular pain to the foot. She rates her pain today 9/10. She describes the pain as constant, dull, sharp, stabbing. Procedure Details:: Details of the procedure were explained to the patient. The patient was taken the procedure room placed in the prone position. The area of the lumbar spine was cleansed using chlorhexidine as a cleansing solution. At this time using fluoroscopy guidance markers were placed on the left lateral border of the L4 and L5 vertebral body. The skin and subcutaneous tissue was anesthetized using 1% lidocaine and 25-gauge needle. At this time using a 22-gauge 3-1/2 inch spinal needle the left upper one third of the L4-5 foramen was accessed. The same was done at the left L5-S1 foramen. Needle positions were confirmed and a lateral view using fluoroscopy and contrast dye. At this time 1 cc of 1% lidocaine +20 mg of Depo-Medrol was injected at each level after negative aspiration. Lucas were removed. Band-Aid applied. Patient tolerated the procedure without difficulty. There are no complications. Plan and Disposition:: Patient was discharged without incident.
[2024-03-11 13:50] VITALS: BP 139/89; PULSE 59; RESP 18; O2SAT 96
== END 2024-03-11 13:50 | disposition home or self-care (01) ==
PROVIDERS: PCP Internal Medicine Adolescent Medicine; Visit Provider Nurse Anesthetist, Certified Registered
DX: M51.16 Intervertebral disc disorders with radiculopathy, lumbar region (principal); M47.26 Other spondylosis with radiculopathy, lumbar region; M43.16 Spondylolisthesis, lumbar region
CPT/HCPCS: 64483; 64484; J1010; Q9966

== ENCOUNTER 2024-03-20 10:41 | Outpatient (CLI) | payer MEDICARE, SELFPAY ==
[2024-03-20 10:55] VITALS: BP 155/87; PULSE 66; RESP 16; TEMP 36.9; O2SAT 97
[2024-03-20] MEDS: DENOSUMAB 60 MG/ML SYRINGE SQ (10:55)
== END 2024-03-20 11:10 | disposition home or self-care (01) ==
LOC: INF 10:41
PROVIDERS: PCP Internal Medicine Adolescent Medicine; Visit Provider Internal Medicine Adolescent Medicine
DX: M81.0 Age-related osteoporosis without current pathological fracture (principal); M19.90 Unspecified osteoarthritis, unspecified site
CPT/HCPCS: 96372; J0897

== ENCOUNTER 2024-03-26 10:19 | Outpatient (POV) | payer MEDICARE, SELFPAY ==
[2024-03-26 10:30] VITALS: BP 155/96; PULSE 82; RESP 18; O2SAT 95; BMI 31.2
--- NOTE | 2024-03-26 11:16 | A.OFFVIS_ITS ---
[facility] Pain Management SOAP Note Subjective:: Patient is a pleasant 73-year-old female who presents today for follow-up of left transforaminal epidural steroid injection L4-L5 and L5-S1 on 03/11/2024. Today she rates her pain a 0 out of 10. Patient states she has had at least 90% improvement feels like it is continuing to help. Patient states that this is by far the best injection she has gotten. She states she has improved function and is able to do more with decreased pain symptoms. Patient does state that she still has some pain however it is much more manageable. She states that the left groin pain comes and goes with increased ambulation but it is still better than what it had been. Her Donald has been reviewed and is appropriate. Review of Systems: General: No recent weight changes, no fever, no sleep disturbances Respiratory: No cough, no shortness of air, no recurring pulmonary infections Cardiovascular/peripheral vascular: No chest pain, no palpitations, no edema, no shortness of breath Gastrointestinal: No new onset incontinence, normal bowel movements reported Genitourinary: No new onset incontinence Musculoskeletal: Low back pain Psychiatric: [Normal mood/affect] Neurological: [Denies weakness in extremities], [denies balance issues] Objective:: Physical Exam: General: Alert and oriented x3, no acute distress, pleasant and cooperative Lungs: Respirations even and unlabored, symmetrical chest expansion Eyes: PERRL Musculoskeletal: Flexion and extension of lumbar [spine] somewhat guarded secondary to pain, [antalgic gait noted] Neurological: Speech clear, no gross sensory deficit Assessment:: Degenerative disc disease of lumbar spine with lumbar radiculopathy symptoms, lumbar spondylosis, lumbar facet arthropathy, chronic pain syndrome Plan:: Patient has had significant improvement following her left transforaminal epidural does not require any additional injection therapy. Patient will return to clinic in 1 month for reevaluation of symptoms and plan of care. Patient has been instructed to contact the clinic with any concerns before the next appointment. Dr. Sharma has reviewed this note and agrees with this plan of care. This note was dictated using voice recognition software and make contain errors or omissions. [facility] Disclaimer: The information contained in this section may have been updated after the patient was seen, as this information can be updated by other users. Medical History Peripheral eosinophilia Severe persistent asthma Stopped smoking with greater than 30 pack year history Centrilobular emphysema Asthma exacerbation Pneumonia Eosinophilia Allergic rhinitis Dyspnea on exertion Encounter for screening for malignant neoplasm of lung in current smoker with 30 pack year history or greater Asthma History of smoking 30 or more pack years Acute respiratory failure with hypoxia COPD exacerbation Atrial fibrillation Anxiety Depression COPD (chronic obstructive pulmonary disease) SOB (shortness of breath) COPD (chronic obstructive pulmonary disease) Surgical History History of colon resection History of bilateral knee replacement H/O: hysterectomy Family History Other No significant family history Social History (Updated 03/20/24 @ 14:24 by Bethany Marquez) Smoking Status: Former smoker years smoked: 56 how long ago did patient quit smoking: july 2022 quit status: quit date established second hand exposure: No alcohol intake: never substance use type: denies use current occupational status: retired Travel in the last 8 weeks: None household members: spouse and children housing: house lives independently: No marital status: education level: college current occupational exposures/hazards: No caffeine: Yes
== END 2024-03-26 23:59 | disposition home or self-care (01) ==
LOC: SC.PAIN 10:19
PROVIDERS: PCP Internal Medicine Adolescent Medicine; Visit Provider Nurse Practitioner Family
DX: M51.16 Intervertebral disc disorders with radiculopathy, lumbar region (principal); M47.26 Other spondylosis with radiculopathy, lumbar region; G89.4 Chronic pain syndrome
CPT/HCPCS: 99212; G0463

== ENCOUNTER 2024-04-10 15:03 | Emergency (ER) | payer MEDICARE, SELFPAY ==
[2024-04-10 15:04] VITALS: BP 135/89; PULSE 65; RESP 16; TEMP 36.5; O2SAT 93
[2024-04-10 15:25] LABS: Microscopic, Urine URINE MICROSCOPIC (MICROSCOPIC)
[2024-04-10 15:37] LABS: Appearance,Urine CLEAR (Clear); Blood, Urine TRACE-I (Negative); Color,Urine DARK YELLOW (Yellow); Glucose,Urine (UA) Negative (Negative); Ketones,Urine TRACE (Negative); Leukocyte Esterase,Urine Negative (Negative); Nitrate,Urine Negative (Negative); Protein,Urine 1+ (Negative); Specific Gravity, Urine >= 1.030 (1.005-1.030); Urobilinogen,Urine 0.2 EU/dl (0.2)
[2024-04-10 15:38] LABS: Bilirubin,Urine 2+ (Negative)
[2024-04-10 16:00] VITALS: BP 135/89; PULSE 63; O2SAT 95
[2024-04-10 16:06] LABS: Bacteria,Urine Trace /lpf; RBC,Urine Occasional #/hpf (0-3)
--- NOTE | 2024-04-10 16:09 | CT_ITS ---
PROCEDURE INFORMATION: Exam: CT Abdomen And Pelvis With Contrast Exam date and time: 04/10/2024 5:33 PM Age: 73 years old Clinical indication: Abdominal pain; Flank; Right; Additional info: Abdominal pain, R flank rad to rlq TECHNIQUE: Imaging protocol: Computed tomography of the abdomen and pelvis with contrast. Radiation optimization: All CT scans at this facility use at least one of these dose optimization techniques: automated exposure control; mA and/or kV adjustment per patient size (includes targeted exams where dose is matched to clinical indication); or iterative reconstruction. Contrast material: ISOVUE; Contrast volume: 75 ml; Contrast route: IV; COMPARISON: CR XR HIP RT 2-3V W/PELVIS 04/16/2023 10:48 AM FINDINGS: Lungs: Mild atelectasis in the lung bases. Small fatty Bochdalek's hernia in the posterior right basilar distribution with no evidence of associated bowel herniation or solid organ herniation. Heart: Mild cardiomegaly. Coronary arteries: Moderate coronary artery calcification. Esophagus: The visualized distal esophagus is largely contracted without gross abnormality. Liver: Normal contour. Subcentimeter probable cyst in the posterior right hepatic lobe which does not require further evaluation. No intrahepatic biliary ductal dilatation. Gallbladder and bile ducts: Normal. No calcified stones. No ductal dilation. Pancreas: Normal. No inflammatory changes or ductal dilation. Spleen: Normal. No splenomegaly. Adrenal glands: Left adrenal nodule measuring 9 mm short axis, unchanged from 07/10/2022 where it measured -5 Hounsfield units on early phase chest CTA consistent with benign adenoma. This does not require further assessment. Right adrenal gland is unremarkable. Kidneys and ureters: No acute abnormalities. No hydronephrosis or hydroureter. No urinary tract stones are identified. Stomach and bowel: The stomach is largely contracted. Small bowel is nondilated. Mildly excessive fluid content in the distal small bowel. Moderate fluid content throughout the colon. This suggests diarrheal state, possibly mild generalized enterocolitis or ileus. Moderate distal colonic diverticulosis without diverticulitis. Appendix: The appendix is normal in caliber and demonstrates no evidence of appendicitis. Intraperitoneal space: No peritoneal free fluid or air. Vasculature: No acute process. No abdominal aortic aneurysm. Moderate calcific atherosclerosis. Lymph nodes: No adenopathy. Urinary bladder: Unremarkable as visualized. Reproductive: Prior hysterectomy. Bones/joints: There is mild superior endplate compression deformity of L2 which is new since 01/18/[address] lateral tie man image, with about 15% loss of vertebral body height. No retropulsion. Minor paraspinous swelling. No hematoma. Prior median sternotomy. Severe disc degenerative changes L5-S1 and L2-L3. Grade 1 anterolisthesis L4-L5. Soft tissues: Small fatty bilateral inguinal hernias with no asociated bowel herniation or strangulation. IMPRESSION: 1. Acute appearing mild superior endplate compression deformity of L2 with minor paraspinous swelling but no hematoma or retropulsion. 2. Moderate fluid content throughout the colon and to a lesser degree the distal small bowel suggesting diarrheal state, possibly mild generalized enterocolitis or ileus. No evidence of obstruction or perforation. 3. Diverticulosis without diverticulitis. 4. Additional nonemergent findings detailed above.
[2024-04-10 16:30] VITALS: BP 147/91; PULSE 63; O2SAT 93
--- NOTE | 2024-04-10 16:34 | [facility].EDGENADL ---
Discharge Plan Disposition Patient Disposition: Home, Self-Care Condition: Good Prescriptions Prescriptions: New naproxen 500 mg tablet 500 mg PO BID Qty: 20 0RF metoclopramide HCl [Reglan] 5 mg tablet 5 mg PO Q8HP PRN (Reason: nausea and vomiting) Qty: 12 0RF No Action Repatha SureClick 140 mg/mL pen injector 140 mg SQ Q2W Rx Instructions: Missed 10/13 dose ipratropium-albuterol 0.5 mg-3 mg(2.5 mg base)/3 mL solution for nebulization 3 ml inhalation QID PRN (Reason: shortness of breath or wheezing) 90 Days Qty: 360 3RF Combivent Respimat 20-100 mcg/actuation mist 1 puff inhalation Q6H PRN (Reason: shortness of breath or wheezing) 90 Days Qty: 4 3RF azelastine 137 mcg (0.1 %) aerosol,spray 2 spray intranasal HS 90 Days Qty: 30 2RF Rx Instructions: administer into each nostril fluticasone propionate [Flonase Allergy Relief] 50 mcg/actuation spray,suspension 2 spray intranasal DAILY 90 Days Qty: 16 2RF Rx Instructions: administer into each nostril Breztri Aerosphere 160-9-4.8 mcg/actuation HFA aerosol inhaler 2 inh inhalation BID 90 Days Qty: 10.7 3RF montelukast 10 mg tablet 10 mg PO DAILY 90 Days Qty: 90 3RF cetirizine 10 mg tablet 10 mg PO DAILY Fasenra Pen 30 mg/mL auto-injector 30 mg SQ Q4W Rx Instructions: 30 mg administered once every 4 weeks for the first 3 doses, and then once every 8 weeks thereafter by subcutaneous injection azelastine 137 mcg (0.1 %) aerosol,spray 2 spray intranasal BID Rx Instructions: administer into each nostril fluticasone propionate [Flonase Allergy Relief] 50 mcg/actuation spray,suspension 2 spray intranasal DAILY Rx Instructions: administer into each nostril aspirin [Adult Low Dose Aspirin] 81 mg tablet,delayed release (DR/EC) 81 mg PO DAILY 3 Days Qty: 3 0RF ropinirole 1 MG tablet 2 mg PO HS 3 Days Qty: 6 0RF bisoprolol fumarate 5 MG tablet 5 mg PO DAILY 3 Days Qty: 3 0RF famotidine [Pepcid] 20 mg tablet 20 mg PO BID 3 Days Qty: 0 0RF temazepam 15 mg capsule 15 mg PO HSP PRN (Reason: Sleep) 3 Days Qty: 3 0RF furosemide 20 mg tablet 20 mg PO DAILY 3 Days Qty: 0 0RF escitalopram oxalate 20 mg tablet 20 mg PO DAILY 3 Days Qty: 3 0RF bupropion HCl 300 MG tablet extended release 24 hr 150 mg PO DAILY Qty: 3 0RF Eliquis 5 mg tablet 5 mg PO BID 3 Days Qty: 6 0RF methocarbamol 500 mg tablet See Rx Instructions .ROUTE .COMPLEX Qty: 60 0RF Dose Instruction: TAKE TWO TABLETS (1,000 MG) BY MOUTH AT BEDTIME Rx Instructions: TAKE TWO TABLETS (1,000 MG) BY MOUTH AT BEDTIME Referrals Follow up/Referrals: Michael Baez MD [Primary Care Provider] - See instructions Activity Restrictions/Add. Instructions Additional Instructions/Restrictions: You were evaluated in the emergency department today. Please follow-up closely with your primary care provider. 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 You may also take Tylenol as needed for pain. Return to the emergency department for new or worsening symptoms. Clinical Impressions Clinical Impression: Enterocolitis Instructions Patient Instructions: DI for Low Back Pain, DI for Colitis Discharge ED Provider: Brianna Keith General Adult HPI General Chief complaint: PAIN Stated complaint: back pain, abd pain Time Seen by Provider: 04/10/24 15:54 Mode of Arrival: Ambulatory Source of Information: Patient Limitations: No Limitations Description of Symptoms (Recalled from ER Triage Doc. by RN): Pt c/o RLQ and right flank pain that started aprox. 7-10 days ago. She denies any changes in bowel or bladder. Denies N/V/D. Pt states pain is different than her normal chronic back pain. She rates this pain 8 out of 10 and it is worse with movement. Minimally tender on palpation. History of Present Illness HPI narrative: This patient is a 73-year-old female who reports a history of colitis, diverticulitis, hypertension, hyperlipidemia, COPD, atrial fibrillation, cholelithiasis, prior colon resection, and prior hysterectomy presenting to the emergency department for evaluation with concern for right-sided flank pain radiating into her right lower quadrant. She states it initially started in the left flank approximate 7 to 10 days ago but then progressed to the right and has become severe. She also states that she has a little bit of burning when she pees. She cannot get comfortable and and it does not seem to be positional according to the patient. No saddle anesthesia, incontinence, retention, new numbness or tingling, or other concerns. She also had no fevers, changes in bowel movements, nausea, or vomiting. Related Data Home Medications Medication Instructions Recorded Confirmed evolocumab 140 mg/mL subcutaneous 140 mg SQ Q2W Cholesterol 02/12/20 03/26/24 pen injector (Naeem Burton) cetirizine 10 mg tablet 10 mg PO DAILY allergies 10/16/22 03/26/24 azelastine 137 mcg (0.1 %) nasal 2 spray intranasal BID Breathing 12/04/22 03/26/24 spray aerosol problems fluticasone propionate 50 2 spray intranasal DAILY Breathing 12/04/22 03/26/24 mcg/actuation nasal problems spray,suspension (Flonase Allergy Relief) benralizumab 30 mg/mL subcutaneous 30 mg SQ Q4W Breathing Problems 06/06/23 03/26/24 auto-injector (Fasenra Pen) Previous Rx's Medication Instructions Recorded apixaban 5 mg tablet (Eliquis) 5 mg PO BID Blood thinner 3 days 12/05/23 #6 tabs aspirin 81 mg tablet,delayed 81 mg PO DAILY HEART HEALTH 3 days 12/05/23 release (Adult Low Dose Aspirin) #3 tabs bisoprolol fumarate 5 mg tablet 5 mg PO DAILY Hypertension 3 days 12/05/23 #3 tabs bupropion HCl 300 mg 24 hr tablet, 150 mg (1/2 x 300 mg) PO DAILY 12/05/23 extended release Anxiety #3 tabs escitalopram oxalate 20 mg tablet 20 mg PO DAILY Depression 3 days 12/05/23 #3 tabs famotidine 20 mg tablet (Pepcid) 20 mg PO BID GERD 3 days #0 tabs 12/05/23 furosemide 20 mg tablet 20 mg PO DAILY Edema 3 days #0 tabs 12/05/23 ropinirole 1 mg tablet 2 mg (2 x 1 mg) PO HS SLEEP 3 days 12/05/23 #6 tabs temazepam 15 mg capsule 15 mg PO HSP PRN Sleep 3 days #3 12/05/23 caps budesonide 160 mcg-glycopyr 9 2 inh inhalation BID 90 days #10.7 12/24/23 mcg-formot 4.8 mcg/actuation HFA grams inhaler (Breztri Aerosphere) montelukast 10 mg tablet 10 mg PO DAILY 90 days #90 tabs 12/24/23 azelastine 137 mcg (0.1 %) nasal 2 spray intranasal HS 90 days #30 01/01/24 spray aerosol mL fluticasone propionate 50 2 spray intranasal DAILY 90 days 01/01/24 mcg/actuation nasal #16 grams spray,suspension (Flonase Allergy Relief) ipratropium 0.5 mg-albuterol 3 mg 3 ml inhalation QID PRN shortness 01/01/24 (2.5 mg base)/3 mL nebulization of breath or wheezing 90 days #360 soln mL ipratropium 20 mcg-albuterol 100 1 puff inhalation Q6H PRN 01/01/24 mcg/actuation mist for inhalation shortness of breath or wheezing 90 (Combivent Respimat) days #4 grams methocarbamol 500 mg tablet See Rx Instructions .Route 02/20/24 .COMPLEX #60 tabs metoclopramide HCl 5 mg tablet 5 mg PO Q8HP PRN nausea and 04/10/24 (Reglan) vomiting #12 tabs naproxen 500 mg tablet 500 mg PO BID #20 tabs 04/10/24 Allergies Allergy/AdvReac Type Severity Reaction Status Date / Time codeine Allergy Mild Verified 03/20/24 14:23 diphenhydramine Allergy Mild Verified 03/20/24 14:23 [From Benadryl] Penicillins Allergy Mild Verified 03/20/24 14:23 isosorbide AdvReac Intermediate Severe CH[place]Y Verified 03/20/24 14:23 diazepam [From Valium] AdvReac Mild Agitated Verified 03/20/24 14:23 PFSH PFSH Disclaimer: The information contained in this section may have been updated after the patient was seen, as this information can be updated by other users. Medical History Peripheral eosinophilia Severe persistent asthma Stopped smoking with greater than 30 pack year history Centrilobular emphysema Asthma exacerbation Pneumonia Eosinophilia Allergic rhinitis Dyspnea on exertion Encounter for screening for malignant neoplasm of lung in current smoker with 30 pack year history or greater Asthma History of smoking 30 or more pack years Acute respiratory failure with hypoxia COPD exacerbation Atrial fibrillation Anxiety Depression COPD (chronic obstructive pulmonary disease) SOB (shortness of breath) COPD (chronic obstructive pulmonary disease) Surgical History History of colon resection History of bilateral knee replacement H/O: hysterectomy Family History Other No significant family history Social History Smoking Status: Never smoker years smoked: 56 how long ago did patient quit smoking: july 2022 quit status: quit date established second hand exposure: No alcohol intake: never substance use type: denies use current occupational status: retired Travel in the last 8 weeks: None household members: spouse and children housing: house lives independently: No marital status: education level: college current occupational exposures/hazards: No caffeine: Yes ROS Obtained: Yes All systems reviewed & no additional complaints except as documented Physical Exam General General appearance: alert and in no apparent distress Comment: Uncomfortable appearing Head Head exam: atraumatic and normocephalic Eye Eye exam: Present normal appearance, PERRL and EOMI ENT ENT exam: Present normal exam, normal oropharynx, mucous membranes moist and normal external ear exam Neck Neck exam: Present normal inspection, full ROM and trachea midline; Absent tenderness Chest Chest inspection: Present normal inspection and symmetric chest wall rise; Absent tenderness Respiratory Respiratory exam: Present normal lung sounds bilaterally; Absent respiratory distress, wheezes, stridor or accessory muscle use Cardiovascular Cardiovascular exam: Present regular rate and normal rhythm Abdominal Exam Abdominal exam: Present soft and tenderness (R sided); Absent distention, guarding, rebound or rigidity Extremities Exam Extremities exam: Present normal inspection, full ROM and normal capillary refill; Absent tenderness or edema Back Exam Back exam: Present normal inspection and full ROM; Absent tenderness Neurological Exam Neurological exam: Present alert, oriented X3, CN II-XII intact and normal gait; Absent motor sensory deficit Psychiatric Psychiatric exam: Present normal affect and normal mood Skin Skin exam: Present warm and dry Medical Decision Making Medical Records Medical records reviewed: Yes I reviewed the patient's medical records. Donald Inquiry Pt receiving controlled substance: No Vital Signs: 04/10/24 15:04 04/10/24 16:00 04/10/24 16:30 Temperature 97.7 F Temperature Source Oral Pulse Rate 63 63 Pulse Rate [Right Radial] 65 Respiratory Rate 16 Blood Pressure 135/89 147/91 H Blood Pressure [Right Arm] 135/89 Blood Pressure Mean [Right Arm] 104 Blood Pressure Source [Right Arm] Automatic Cuff Blood Pressure Position [Right Arm] Sitting 02 Sat by Pulse Oximetry 93 L 95 93 L Oxygen Delivery Method Room Air Room Air Room Air 04/10/24 17:00 04/10/24 18:00 04/10/24 19:14 Temperature 97.7 F Temperature Source Oral Pulse Rate 54 L 54 L 59 L Pulse Rate [Right Radial] Respiratory Rate 20 Blood Pressure 154/89 H 157/102 H 158/93 H Blood Pressure [Right Arm] Blood Pressure Mean [Right Arm] Blood Pressure Source [Right Arm] Blood Pressure Position [Right Arm] 02 Sat by Pulse Oximetry 93 L 95 Oxygen Delivery Method Room Air Room Air Room Air Lab Data Lab results reviewed: Yes I reviewed the patient's lab results. Lab Results 04/10/24 15:15: Urine Color Dark yellow, Urine Appearance Clear, Urine pH 6.0, Ur Specific [place] >= 1.030, Urine Protein 1+, Urine Glucose (UA) Negative, Urine Ketones Trace, Urine Blood Trace-i, Urine Nitrate Negative, Urine Bilirubin 2+ A, Urine Urobilinogen 0.2, Ur Leukocyte Esterase Negative, Urine RBC Occasional, Urine WBC 3-5, Ur Squamous Epith Cells 5-10, Urine Bacteria Trace 04/10/24 16:47: WBC 8.4, RBC 4.68, Hgb 14.7, Hct 46.0, MCV 98.5, MCH 31.4 H, MCHC 31.9, RDW 14.4, Plt Count 347, MPV 7.5, Neut % (Auto) 66.1, Lymph % (Auto) 26.3, Vance % (Auto) 6.9, Eos % (Auto) 0.2, Baso % (Auto) 0.6, Neut # (Auto) 5.5, Lymph # (Auto) 2.2, Vance # (Auto) 0.6, Eos # (Auto) 0.0, Baso # (Auto) 0.1, Sodium 141, Potassium 3.7, Chloride 110 H, Carbon Dioxide 27, Anion Gap 7.7, BUN 12, Creatinine 0.80, Estimated Creat Clear 64, Estimated GFR 71, Est GFR ( Amer) 85, Glucose 96, Calcium 8.2 L, Total Bilirubin 0.6, AST 28, ALT 18, Alkaline Phosphatase 84, Total Protein 6.5, Albumin 3.6, Globulin 2.9, Albumin/Globulin Ratio 1.2, Lipase 75 04/10/24 16:47 04/10/24 16:47 Orders (Tests/Meds): ED MEDICATIONS Discontinued Medications Generic Name Dose Route Start Last Admin Trade Name Freq PRN Reason Stop Dose Admin Acetaminophen 1,000 mg 04/10/24 16:10 04/10/24 17:05 Acetaminophen 1,000mg/100ml Vial IV 04/10/24 16:11 1,000 mg ONCE ONE Administration Lactated Ringer's 500 mls @ 999 mls/hr 04/10/24 16:10 04/10/24 17:05 Lactated Ringer's 1000 Ml Bag IV 04/10/24 16:40 999 mls/hr .Q31M ONE Administration Iopamidol 75 ml 04/10/24 17:33 04/10/24 17:34 Iopamidol-370 (76%);100ml Bottle IV 04/10/24 17:34 75 ml ONCE ONE Administration Ketorolac Tromethamine 15 mg 04/10/24 16:10 04/10/24 17:05 Ketorolac 30mg/Ml Vial IV 04/10/24 16:11 15 mg ONCE ONE Administration Sodium Chloride 10 ml 04/10/24 17:33 04/10/24 17:33 Sodium Chloride 0.9% 10ml Syr (Rad Only) IV 04/10/24 17:34 10 ml ONCE ONE Administration ORDERS Category Date Time Status CT abdomen pelvis w con Stat Cat Scan 04/10/24 16:09 Completed Complete Blood Count Auto Diff Stat Lab 04/10/24 16:47 Completed Comprehensive Metabolic Panel Stat Lab 04/10/24 16:47 Completed Lipase Stat Lab 04/10/24 16:47 Completed UA [Urinalysis and Microscopic] Stat Lab 04/10/24 15:15 Completed Medical Decision Narrative: In summary, this patient is a 73-year-old female presenting to the Emergency Department for evaluation of right flank and right lower quadrant abdominal pain as well as back pain. Differential diagnoses considered include but are not limited to cholecystitis, cholelithiasis, colitis, appendicitis, cystitis, pyelonephritis, ureterolithiasis, musculoskeletal pain. Ruling out the most morbid conditions drove assessment. It should be noted patient's history includes chronic back pain, COPD, hypertension, hyperlipidemia, CAD which [] at goal therapy. This complicates all aspects of care by increasing patient's risk for morbidity. On exam, the patient is uncomfortable appearing with relatively benign abdominal exam. She is neurologically intact without alarm findings concerning for spinal cord compression or other acute pathology involving the spine. Workup included CBC, CMP, lipase, lactic acid, urinalysis, and CT abdomen pelvis with IV contrast. She was given a bolus of IV fluids as well as IV acetaminophen and Toradol for symptomatic improvement. I independently interpreted CT scan prior to the radiologist read and noted findings concerning for potential colitis. Please see their read for final interpretation. They noted enterocolitis. They also noted L2 fracture, which patient states that she already knows about and is receiving treatment for. She states this is chronic. Labs were obtained that demonstrated no acutely concerning abnormalities.. On reassessment, patient had good improvement after administration of event as above. She is resting comfortably. I advised her that she likely has enterocolitis at this time and advised that I feel she is appropriate for discharge home with instructions for supportive management and very close follow-up with her primary care provider given her extensive colonic history. I do not feel that antibiotics are beneficial, as she does not have any complication such as abscess or perforation. She was given prescription for naproxen to take as well as prescription for Zofran to have on hand as needed for nausea and vomiting. She was discharged after all questions were answered. Critical Care Critical Care Time Critical Care Time: No
[2024-04-10 17:00] VITALS: BP 154/89; PULSE 54; O2SAT 93
[2024-04-10 17:00] LABS: Basophils # 0.1 K/mm3 (0-0.2); Basophils % 0.6 % (0.1-2.0); Eosinophils % 0.2 % (0.1-12.0); Hemoglobin 14.7 g/dL (12.2-16.2); Lymphocytes # 2.2 K/mm3 (0.7-4.5); Lymphocytes % 26.3 % (10-50); Mean Corpuscular HGB Conc 31.9 g/dL (31.8-35.4); Mean Corpuscular Hemoglobin 31.4 pg (27.0-31.2); Mean Corpuscular Volume 98.5 fl (81-99); Mean Platelet Volume 7.5 fl (7.4-10.4); Monocytes # 0.6 K/mm3 (0.1-1.0); Monocytes % 6.9 % (1.7-9.3); Neutrophils # 5.5 K/mm3 (1.8-7.8); Neutrophils % 66.1 % (37.0-80.0); Platelet Count 347 K/mm3 (142-424); Red Blood Count 4.68 M/mm3 (4.20-5.40); Red Cell Distribution Width 14.4 % (11.5-17.5); White Blood Count 8.4 K/mm3 (4.8-10.8)
[2024-04-10] MEDS: LACTATED RINGERS 1000ML 500 ML 999 ML IV (17:05)
[2024-04-10] MEDS: KETOROLAC 30MG/ML VIAL 15 MG IV (17:05)
[2024-04-10] MEDS: ACETAMINOPHEN 1,000MG/100ML VIAL 1000 MG IV (17:05)
[2024-04-10 17:10] LABS: Chloride 110 mmol/L (98-107); Sodium 141 mmol/L (136-145)
[2024-04-10 17:11] LABS: Potassium 3.7 mmoL/L (3.5-5.1)
[2024-04-10 17:13] LABS: Alanine Aminotransferase 18 U/L (12-78); Alkaline Phosphatase 84 U/L (38-126); Anion Gap 7.7 mEq/L (5-15); Aspartate Amino Transferase 28 U/L (14-36); Bilirubin,Total 0.6 mg/dl (0.2-1.3); Blood Urea Nitrogen 12 mg/dl (7-17); Calcium 8.2 mg/dl (8.4-10.2); Carbon Dioxide 27 mmol/L (22.0-30.0); Creatinine Clearance Estimated 64 mL/min (50-200); Estimated Glomerular Filt Rate 71 ml/min (>60); GFR (African American) 85 ML/MIN (>60); Glucose 96 mg/dl (74-100); Lipase 75 U/L (23-300)
[2024-04-10 17:14] LABS: Albumin Level 3.6 g/dl (3.5-5.0); Albumin/Globulin Ratio 1.2 (1.1-1.8); Globulin 2.9 g/dL (1.3-3.2); Total Protein,Serum 6.5 g/dl (6.3-8.2)
[2024-04-10] MEDS: SODIUM CHLORIDE 0.9% 10ML SYR (RAD ONLY) 10 ML IV (17:33)
[2024-04-10] MEDS: IOPAMIDOL-370 (76%);100ML BOTTLE 75 ML IV (17:34)
[2024-04-10 18:00] VITALS: BP 157/102; PULSE 54; O2SAT 95
[2024-04-10 19:14] VITALS: BP 158/93; PULSE 59; RESP 20; TEMP 36.5; O2SAT 95
== END 2024-04-10 19:17 | disposition home or self-care (01) ==
PROVIDERS: Emergency Provider Emergency Medicine; PCP Internal Medicine Adolescent Medicine
DX: R10.31 Right lower quadrant pain (principal); K52.9 Noninfective gastroenteritis and colitis, unspecified; J44.9 Chronic obstructive pulmonary disease, unspecified; E78.5 Hyperlipidemia, unspecified; I10 Essential (primary) hypertension; I48.0 Paroxysmal atrial fibrillation; Z87.19 Personal history of other diseases of the digestive system
CPT/HCPCS: 74177; 80053; 81001; 83690; 85025; 96374; 96375; 99284; J0131; Q9967

== ENCOUNTER 2024-04-18 11:45 | Outpatient (POV) | payer MEDICARE, SELFPAY ==
--- NOTE | 2024-04-18 12:21 | A.OFFVIS_ITS ---
[facility] Pain Management SOAP Note Subjective:: Patient is a pleasant 73-year-old female who presents today for follow-up of ER visit. Today she rates her pain a 10 out of 10. Patient states her pain is all they are in her low back. Patient denies any recent fall or injuries. She states that she thought that she had a possible kidney stone and went to the ER for evaluation and it was determined that she actually had a compression fracture of L2. Patient had recently had imaging as new as January 18, 2024 that did not show this compression fracture. Patient does have a significant history of osteoporosis and is on injection therapy for this. Patient does state the pain is a sharp shooting pain that does interfere with the simplest activities such as cooking or cleaning or even simple ambulation or sitting still. She states the pain is constant and is debilitating. Patient states that the pain is so severe she even feels nauseous currently. Patient does have a heart history and is on blood thinner from a provider in [place]. Her Donald has been reviewed and is appropriate. Review of Systems: General: No recent weight changes, no fever, no sleep disturbances Respiratory: No cough, no shortness of air, no recurring pulmonary infections Cardiovascular/peripheral vascular: No chest pain, no palpitations, no edema, no shortness of breath Gastrointestinal: No new onset incontinence, normal bowel movements reported Genitourinary: No new onset incontinence Musculoskeletal: Low back pain Psychiatric: [Normal mood/affect] Neurological: [Denies weakness in extremities], [denies balance issues] Objective:: Physical Exam: General: Alert and oriented x3, no acute distress, pleasant and cooperative Lungs: Respirations even and unlabored, symmetrical chest expansion Eyes: PERRL Musculoskeletal: Flexion and extension of lumbar [spine] somewhat guarded secondary to pain, [antalgic gait noted] Neurological: Speech clear, no gross sensory deficit TECHNIQUE: Imaging protocol: Computed tomography of the abdomen and pelvis with contrast. Radiation optimization: All CT scans at this facility use at least one of these dose optimization techniques: automated exposure control; mA and/or kV adjustment per patient size (includes targeted exams where dose is matched to clinical indication); or iterative reconstruction. Contrast material: ISOVUE; Contrast volume: 75 ml; Contrast route: IV; COMPARISON: CR XR HIP RT 2-3V W/PELVIS 04/16/2023 10:48 AM FINDINGS: Lungs: Mild atelectasis in the lung bases. Small fatty Bochdalek's hernia in the posterior right basilar distribution with no evidence of associated bowel herniation or solid organ herniation. Heart: Mild cardiomegaly. Coronary arteries: Moderate coronary artery calcification. Esophagus: The visualized distal esophagus is largely contracted without gross abnormality. Liver: Normal contour. Subcentimeter probable cyst in the posterior right hepatic lobe which does not require further evaluation. No intrahepatic biliary ductal dilatation. Gallbladder and bile ducts: Normal. No calcified stones. No ductal dilation. Pancreas: Normal. No inflammatory changes or ductal dilation. Spleen: Normal. No splenomegaly. Adrenal glands: Left adrenal nodule measuring 9 mm short axis, unchanged from 07/10/2022 where it measured -5 Hounsfield units on early phase chest CTA consistent with benign adenoma. This does not require further assessment. Right adrenal gland is unremarkable. Kidneys and ureters: No acute abnormalities. No hydronephrosis or hydroureter. No urinary tract stones are identified. Stomach and bowel: The stomach is largely contracted. Small bowel is nondilated. Mildly excessive fluid content in the distal small bowel. Moderate fluid content throughout the colon. This suggests diarrheal state, possibly mild generalized enterocolitis or ileus. Moderate distal colonic diverticulosis without diverticulitis. Appendix: The appendix is normal in caliber and demonstrates no evidence of appendicitis. Intraperitoneal space: No peritoneal free fluid or air. Vasculature: No acute process. No abdominal aortic aneurysm. Moderate calcific atherosclerosis. Lymph nodes: No adenopathy. Urinary bladder: Unremarkable as visualized. Reproductive: Prior hysterectomy. Bones/joints: There is mild superior endplate compression deformity of L2 which is new since 01/18/[address] lateral management assistant image, with about 15% loss of vertebral body height. No retropulsion. Minor paraspinous swelling. No hematoma. Prior median sternotomy. Severe disc degenerative changes L5-S1 and L2-L3. Grade 1 anterolisthesis L4-L5. Soft tissues: Small fatty bilateral inguinal hernias with no asociated bowel herniation or strangulation. IMPRESSION: 1. Acute appearing mild superior endplate compression deformity of L2 with minor paraspinous swelling but no hematoma or retropulsion. 2. Moderate fluid content throughout the colon and to a lesser degree the distal small bowel suggesting diarrheal state, possibly mild generalized enterocolitis or ileus. No evidence of obstruction or perforation. 3. Diverticulosis without diverticulitis. 4. Additional nonemergent findings detailed above. Assessment:: Degenerative disc disease of lumbar spine with lumbar radiculopathy symptoms, lumbar facet arthropathy, lumbar spondylosis, chronic paibn syndrome, acute L2 compression fracture Plan:: Patient is experiencing significant pain related to a new compression fracture. I have discussed with patient that she may be a beneficial candidate of the kyphoplasty procedure. Risk and benefits and educational handouts were given to the patient and she would like to proceed forward with this plan of care. I will order MRI without contrast of her lumbar spine. Due to the prolonged positioning I will send in a one-time dose of diazepam 2 mg to be given approximately 1 hour prior to this imaging. Patient agrees with this plan of care. I will also send in a prescription of [place] 5 mg 3 times daily as needed with a 2-week supply of this medication. Patient will be ordered a back brace to add support and stabilization and take away some pressure around the L2 compression fracture. Patient was also counseled that we will try and get her in for a lumbar epidural steroid injection. Risk and benefits were discussed with the patient and she would like to proceed forward with this option as well. We will reach out to her salvage inspector wood [employer] in [place] and confirm she can stop her Eliquis temporarily for this injection. Patient will be scheduled for an L1-L2 lumbar epidural steroid injection under fluoroscopy. Patient did previously have a lumbar epidural back of April 2023 that did provide 80% relief lasting several months. Patient is unable to tolerate current physical therapy due to the acute compression fracture and comorbidities. Patient is agreeable to have the kyphoplasty done in [place] if needed due to Dr. Sharma not being back in the operating room until May 23. Risks and benefits of the medication have been explained in detail to the patient. The patient does understand the risk of dependence on the medication when given over a prolonged period. Patient has been advised of risks of oversedation with the prescribed medication. Narcan has been offered to the paitent in the event of oversedation. Patient has been advised that a family member should also be educated regarding administration of Narcan. The patient has been advised to consult with his/her primary care provider and pharmacist regarding drug-drug interaction of medications currently prescribed. Patient has been prescribed a controlled substance after being counseled on the medication, medication safety, and possible side effects. Opioid contract was reviewed and signed by the patient, and that they have agreed to all of the terms set forth by our compliance program. Patient has been instructed to contact the clinic with any concerns before the next appointment. Dr. Sharma has reviewed this note and agrees with this plan of care. This note was dictated using voice recognition software and make contain errors or omissions. [facility] Disclaimer: The information contained in this section may have been updated after the patient was seen, as this information can be updated by other users. Medical History Peripheral eosinophilia Severe persistent asthma Stopped smoking with greater than 30 pack year history Centrilobular emphysema Asthma exacerbation Pneumonia Eosinophilia Allergic rhinitis Dyspnea on exertion Encounter for screening for malignant neoplasm of lung in current smoker with 30 pack year history or greater Asthma History of smoking 30 or more pack years Acute respiratory failure with hypoxia COPD exacerbation Atrial fibrillation Anxiety Depression COPD (chronic obstructive pulmonary disease) SOB (shortness of breath) COPD (chronic obstructive pulmonary disease) Surgical History History of colon resection History of bilateral knee replacement H/O: hysterectomy Family History Other No significant family history Social History Smoking Status: Never smoker years smoked: 56 how long ago did patient quit smoking: july 2022 quit status: quit date established second hand exposure: No alcohol intake: never substance use type: denies use current occupational status: other Travel in the last 8 weeks: None household members: spouse and children housing: house lives independently: No marital status: education level: college current occupational exposures/hazards: No caffeine: Yes
[2024-04-18 12:24] VITALS: BP 186/101; PULSE 65; RESP 18; O2SAT 97; BMI 66.2
== END 2024-04-18 23:59 | disposition home or self-care (01) ==
PROVIDERS: PCP Internal Medicine Adolescent Medicine; Visit Provider Nurse Practitioner Family
DX: M51.16 Intervertebral disc disorders with radiculopathy, lumbar region (principal); M47.26 Other spondylosis with radiculopathy, lumbar region; G89.4 Chronic pain syndrome; M48.56XA Collapsed vertebra, not elsewhere classified, lumbar region, initial encounter for fracture
CPT/HCPCS: 99212; G0463

== ENCOUNTER 2024-04-29 13:50 | Day surgery (SDC) | payer MEDICARE, SELFPAY ==
[2024-04-29 14:04] VITALS: BP 135/90; PULSE 69; RESP 18; TEMP 36.2; O2SAT 93
--- NOTE | 2024-04-29 14:07 | P.PCN_ITS ---
Procedure Date: 04/29/24 Time: 14:00 Anesthesiologist:: Romero Hough CRNA Complications:: None Pre-procedure Diagnosis:: Degenerative disc lumbar spine multilevels. Lumbar radiculopathy. Lumbar spondylosis. Multilevel lumbar facet arthropathy. Compression fracture L2. Post-procedure Diagnosis:: Same. Indications for Procedure:: Patient is a pleasant 73-year-old female comes our clinic today for L1-2 epidural steroid injection. Patient has L2 compression fracture. Patient reports thoracolumbar pain is significant. She describes pain as constant, dull, aching. She rates her pain 9/10. Procedure Details:: Procedure: Lumbar epidural steroid injection under fluoroscopy Informed consent was obtained and the risks and benefits of the procedure were explained to the patient. The patient was taken to the procedure room and noninv asive monitors placed, including noninvasive blood pressure cuff and pulse oximeter. The back was viewed using C-arm Fluoroscopy and prepped using Chloraprep as a cleansing solution and the L1-2 interspace was palpated. Skin and subcutaneous tissues were anesthetized using lidocaine 1.5% and a 25-gauge needle. After this, an 18-gauge Touhy epidural needle was placed into the L1-2 interspace and advanced using fluoroscopic guidance and loss of resistance to air until the epidural space was encountered. After confirmation of needle placement in the epidural space, with dye, a solution containing normal saline, 3 mL and Depo-Medrol 80 mg were incrementally injected into the lumbar epidural space. The patient tolerated the procedure well with no complications. The patient was observed in the Pain Clinic and then discharged home neurologically intact. Plan and Disposition:: Patient was discharged without incident.
[2024-04-29 14:25] VITALS: BP 145/85; PULSE 65; RESP 18; TEMP 36.7; O2SAT 95
[2024-04-29] MEDS: methylPREDNISolone ACETATE 80MG/ML VIAL 80 MG (14:25)
[2024-04-29 14:30] VITALS: BP 158/99; PULSE 58; RESP 20; O2SAT 96
[2024-04-29 14:31] VITALS: BP 158/99; PULSE 58; RESP 20; O2SAT 96
== END 2024-04-29 14:25 | disposition home or self-care (01) ==
PROVIDERS: PCP Internal Medicine Adolescent Medicine; Visit Provider Nurse Anesthetist, Certified Registered
DX: M51.16 Intervertebral disc disorders with radiculopathy, lumbar region (principal); M47.26 Other spondylosis with radiculopathy, lumbar region
CPT/HCPCS: 62323; J1010

== ENCOUNTER 2024-05-03 09:48 | Outpatient (CLI) | payer MEDICARE, SELFPAY ==
--- NOTE | 2024-05-03 | MR_ITS ---
FINAL REPORT CLINICAL HISTORY: . FINDINGS: Multiplanar MR imaging of the lumbar spine was performed without contrast. There is motion artifact on many sequences. On the sagittal T2-weighted images, disc degeneration is seen throughout. There is mild retrolisthesis of L1 on L2 and L2 on L3. There is a mild, L2 superior endplate compression fracture with approximately 40% loss of anterior height. A Schmorl's node is seen in the inferior endplate of L1. No bony mass is identified. The conus is seen at approximately the L1 level and has an unremarkable appearance. T12-L1: Annular disc bulge. L1-2: Annular disc bulge with facet arthropathy and osteophytes. There is moderate bilateral neuroforaminal narrowing. L2-3: Annular disc bulge with facet arthropathy and osteophytes. There is severe right and moderate left neuroforaminal narrowing. L3-4: Annular disc bulge with facet arthropathy. There is mild bilateral neuroforaminal narrowing. L4-5: Annular disc bulge with facet arthropathy. There is mild right and moderate left neuroforaminal narrowing. L5-S1: Annular disc bulge with facet arthropathy and osteophytes. There is mild bilateral neuroforaminal narrowing. IMPRESSION: Multilevel degenerative disc disease with severe right neuroforaminal narrowing at L2-3. Mild L2 superior endplate compression fracture with 40% loss of height. Reviewed, Interpreted and Dictated by Guillermo Banegas III, MD Transcribed by Violette Sparks Authenticated and [facility]
== END 2024-05-03 23:59 | disposition home or self-care (01) ==
LOC: RAD 09:50
PROVIDERS: PCP Nurse Practitioner Family; Visit Provider Nurse Practitioner Family
DX: M48.56XA Collapsed vertebra, not elsewhere classified, lumbar region, initial encounter for fracture (principal); M54.50 Low back pain, unspecified
CPT/HCPCS: 72148; 76376

== ENCOUNTER 2024-05-07 13:07 | Outpatient (POV) | payer MEDICARE, SELFPAY ==
[2024-05-07 13:35] VITALS: BP 160/94; BP 176/100; PULSE 62; RESP 16; O2SAT 97; BMI 29.2
--- NOTE | 2024-05-07 14:25 | EXP.PAIN.SOA ---
[facility] Pain Management SOAP Note Subjective:: Patient denies anyPatient is a pleasant 73-year-old female who presents today for MRI follow-up. Today she rates her pain a 7 out of 10 while sitting however immediately when she goes to standing it is a 10 out of 10. A new trauma or injury. She states she still continues to have the chronic pain they are at her mid to low back related to her compression fracture with radiating symptoms down. Patient does state that the lumbar epidural did help provide some relief however it is only more noticeable with sitting. Patient states that pain is still very severe and interferes with her ability perform activities of daily living such as cooking and cleaning. Patient at her last visit was prescribed [place] 5 mg 3 times a day however she states that she had severe itching and could not take this and discontinued its use. Patient does state that she takes methocarbamol for muscle spasms however it really only helps when she takes it at bedtime. Patient states that she really has not tried other medications. Patient is still using her back brace to help allow additional support for her compression fracture. Patient does state that she would like to still proceed forward with a kyphoplasty. Her Donald has been reviewed and is appropriate. Review of Systems: General: No recent weight changes, no fever, no sleep disturbances Respiratory: No cough, no shortness of air, no recurring pulmonary infections Cardiovascular/peripheral vascular: No chest pain, no palpitations, no edema, no shortness of breath Gastrointestinal: No new onset incontinence, normal bowel movements reported Genitourinary: No new onset incontinence Musculoskeletal: Low back pain Psychiatric: [Normal mood/affect] Neurological: [Denies weakness in extremities], [denies balance issues] Objective:: Physical Exam: General: Alert and oriented x3, no acute distress, pleasant and cooperative Lungs: Respirations even and unlabored, symmetrical chest expansion Eyes: PERRL Musculoskeletal: Flexion and extension of lumbar [spine] somewhat guarded secondary to pain, [antalgic gait noted] Neurological: Speech clear, no gross sensory deficit Assessment:: Degenerative disc disease of lumbar spine with lumbar radiculopathy symptoms, lumbar facet arthropathy, lumbar spondylosis, chronic pain syndrome, acute L2 compression fracture Plan:: I have discussed with the patient that we will plan on proceeding forward with a kyphoplasty. Again I did review over the risk and benefits and she would like to move forward with this. Patient states the pain is very unbearable and does radiate down. I will send in baclofen 5 mg 3 times daily and provide a 2-week supply of this medication as well as send in a prescription of tramadol 50 mg 3 times daily with a 2-week supply of this medication. Patient is scheduled to go on a family vacation that they are leaving on Sunday. We will plan on having her and for her kyphoplasty at the [facility] location on 19 May. Risks and benefits of the medication have been explained in detail to the patient. The patient does understand the risk of dependence on the medication when given over a prolonged period. Patient has been advised of risks of oversedation with the prescribed medication. Narcan has been offered to the paitent in the event of oversedation. Patient has been advised that a family member should also be educated regarding administration of Narcan. The patient has been advised to consult with his/her primary care provider and pharmacist regarding drug-drug interaction of medications currently prescribed. Patient has been prescribed a controlled substance after being counseled on the medication, medication safety, and possible side effects. Opioid contract was reviewed and signed by the patient, and that they have agreed to all of the terms set forth by our compliance program. Patient has been instructed to contact the clinic with any concerns before the next appointment. Dr. Sharma has reviewed this note and agrees with this plan of care. This note was dictated using voice recognition software and make contain errors or omissions. [facility] Disclaimer: The information contained in this section may have been updated after the patient was seen, as this information can be updated by other users. Medical History Peripheral eosinophilia Severe persistent asthma Stopped smoking with greater than 30 pack year history Centrilobular emphysema Asthma exacerbation Pneumonia Eosinophilia Allergic rhinitis Dyspnea on exertion Encounter for screening for malignant neoplasm of lung in current smoker with 30 pack year history or greater Asthma History of smoking 30 or more pack years Acute respiratory failure with hypoxia COPD exacerbation Atrial fibrillation Anxiety Depression COPD (chronic obstructive pulmonary disease) SOB (shortness of breath) COPD (chronic obstructive pulmonary disease) Surgical History History of colon resection History of bilateral knee replacement H/O: hysterectomy Family History Other No significant family history Social History Smoking Status: Never smoker years smoked: 56 how long ago did patient quit smoking: july 2022 quit status: quit date established second hand exposure: No alcohol intake: never substance use type: denies use current occupational status: other Travel in the last 8 weeks: None household members: spouse and children housing: house lives independently: No marital status: education level: college current occupational exposures/hazards: No caffeine: Yes
--- NOTE | 2024-05-07 14:33 | A.OFFVIS_ITS ---
[facility] Pain Management SOAP Note Subjective:: Patient is a pleasant 73-year-old female who presents today for MRI follow-up. Today she rates her pain a 7 out of 10 while sitting but goes to a 10 out of 10 with standing. Patient does states she continues to have constant chronic pain related to her acute compression fracture. Patient states she did read up on the information regarding the kyphoplasty and would like to proceed forward with this plan of care. She does state that she is scheduled to leave on vacation with her family coming up on Sunday and will be gone a week. Patient does state the pain medication we sent and she had a severe itching reaction and discontinued this. Patient was prescribed [place] 5 mg 3 times daily. Patient does states she takes methocarbamol at night and it seems to help okay. Patient is interested in any options we can provide to help improve her pain between now and her surgical procedure. Her Donald has been reviewed and is appropriate. Review of Systems: General: No recent weight changes, no fever, no sleep disturbances Respiratory: No cough, no shortness of air, no recurring pulmonary infections Cardiovascular/peripheral vascular: No chest pain, no palpitations, no edema, no shortness of breath Gastrointestinal: No new onset incontinence, normal bowel movements reported Genitourinary: No new onset incontinence Musculoskeletal: Low back pain Psychiatric: [Normal mood/affect] Neurological: [Denies weakness in extremities], [denies balance issues] Objective:: Physical Exam: General: Alert and oriented x3, no acute distress, pleasant and cooperative Lungs: Respirations even and unlabored, symmetrical chest expansion Eyes: PERRL Musculoskeletal: Flexion and extension of lumbar [spine] somewhat guarded secondary to pain, [antalgic gait noted] Neurological: Speech clear, no gross sensory deficit Assessment:: Degenerative disc disease of lumbar spine with lumbar radiculopathy symptoms, lumbar facet arthropathy, lumbar spondylosis, chronic pain syndrome, acute L2 compression fracture Plan:: Patient continues to experience significant pain throughout her low back with radiating symptoms due to her acute compression fracture. Patient has already been submitted to insurance for the kyphoplasty and we will plan on doing this in [place] in order to get her in as soon as possible. We will discontinue the [place] and send in a 2-week supply for tramadol 50 mg 3 times daily and baclofen 5 mg 3 times daily. Patient has been instructed to contact our office with any questions or concerns between now and her next visit. Patient did present today still wearing her back brace to help with additional support around her compression fracture site. Risks and benefits of the medication have been explained in detail to the patient. The patient does understand the risk of dependence on the medication when given over a prolonged period. Patient has been advised of risks of oversedation with the prescribed medica tion. Narcan has been offered to the paitent in the event of oversedation. Patient has been advised that a family member should also be educated regarding administration of Narcan. The patient has been advised to consult with his/her primary care provider and pharmacist regarding drug-drug interaction of medications currently prescribed. Patient has been prescribed a controlled substance after being counseled on the medication, medication safety, and possible side effects. Opioid contract was reviewed and signed by the patient, and that they have agreed to all of the terms set forth by our compliance program. Patient has been instructed to contact the clinic with any concerns before the next appointment. Dr. Sharma has reviewed this note and agrees with this plan of care. This note was dictated using voice recognition software and make contain errors or omissions. [facility] Disclaimer: The information contained in this section may have been updated after the patient was seen, as this information can be updated by other users. Medical History Peripheral eosinophilia Severe persistent asthma Stopped smoking with greater than 30 pack year history Centrilobular emphysema Asthma exacerbation Pneumonia Eosinophilia Allergic rhinitis Dyspnea on exertion Encounter for screening for malignant neoplasm of lung in current smoker with 30 pack year history or greater Asthma History of smoking 30 or more pack years Acute respiratory failure with hypoxia COPD exacerbation Atrial fibrillation Anxiety Depression COPD (chronic obstructive pulmonary disease) SOB (shortness of breath) COPD (chronic obstructive pulmonary disease) Surgical History History of colon resection History of bilateral knee replacement H/O: hysterectomy Family History Other No significant family history Social History Smoking Status: Never smoker years smoked: 56 how long ago did patient quit smoking: july 2022 quit status: quit date established second hand exposure: No alcohol intake: never substance use type: denies use current occupational status: other Travel in the last 8 weeks: None household members: spouse and children housing: house lives independently: No marital status: education level: college current occupational exposures/hazards: No caffeine: Yes
== END 2024-05-07 23:59 | disposition home or self-care (01) ==
PROVIDERS: PCP Internal Medicine Adolescent Medicine; Visit Provider Nurse Practitioner Family
DX: M51.16 Intervertebral disc disorders with radiculopathy, lumbar region (principal); M47.26 Other spondylosis with radiculopathy, lumbar region; G89.4 Chronic pain syndrome; M48.56XD Collapsed vertebra, not elsewhere classified, lumbar region, subsequent encounter for fracture with routine healing
CPT/HCPCS: 99212; G0463

== ENCOUNTER 2024-05-19 13:48 | Outpatient (POV) | payer MEDICARE, SELFPAY ==
[2024-05-19 14:03] VITALS: BP 156/94; PULSE 58; RESP 18; TEMP 36.8; O2SAT 98; BMI 36.6
--- NOTE | 2024-05-19 14:12 | A.OFFVIS_ITS ---
[facility] Pain Management SOAP Note Subjective:: Patient is a pleasant 73-year-old female who presents today for medication refill and follow-up. Today she rates her pain a 7 out of 10. She denies any new trauma or injury. Patient is scheduled for kyphoplasty on June 05 there in the [facility] location. Patient does state from our last visit that the medication we prescribed is working much better and that she has been able to sleep easier with overall improvement. Patient is still wearing her back brace and states that she did end up going on vacation and that there were times that were more painful however she did still have a very nice time with her family and that it helped having the distraction. Patient is currently managed with tramadol 50 mg 3 times a day and baclofen 5 mg 3 times daily. She denies any side effects to this medication. She is requesting a refill. Her Donald has been reviewed and is appropriate. Review of Systems: General: No recent weight changes, no fever, no sleep disturbances Respiratory: No cough, no shortness of air, no recurring pulmonary infections Cardiovascular/peripheral vascular: No chest pain, no palpitations, no edema, no shortness of breath Gastrointestinal: No new onset incontinence, normal bowel movements reported Genitourinary: No new onset incontinence Musculoskeletal: Low back pain Psychiatric: [Normal mood/affect] Neurological: [Denies weakness in extremities], [denies balance issues] Objective:: Physical Exam: General: Alert and oriented x3, no acute distress, pleasant and cooperative Lungs: Respirations even and unlabored, symmetrical chest expansion Eyes: PERRL Musculoskeletal: Flexion and extension of lumbar [spine] somewhat guarded secondary to pain, [antalgic gait noted] Neurological: Speech clear, no gross sensory deficit Assessment:: Degenerative disc disease of lumbar spine with lumbar radiculopathy symptoms, lumbar facet arthropathy, lumbar spondylosis, chronic pain syndrome, acute L2 compression fracture Plan:: I will refill the patient's tramadol and baclofen and provide a 1 month supply of this medication. Patient will return to clinic in 1 month for reevaluation of symptoms and plan of care. Medication [facility] Disclaimer: The information contained in this section may have been updated after the patient was seen, as this information can be updated by other users. Medical History Peripheral eosinophilia Severe persistent asthma Stopped smoking with greater than 30 pack year history Centrilobular emphysema Asthma exacerbation Pneumonia Eosinophilia Allergic rhinitis Dyspnea on exertion Encounter for screening for malignant neoplasm of lung in current smoker with 30 pack year history or greater Asthma History of smoking 30 or more pack years Acute respiratory failure with hypoxia COPD exacerbation Atrial fibrillation Anxiety Depression COPD (chronic obstructive pulmonary disease) SOB (shortness of breath) COPD (chronic obstructive pulmonary disease) Surgical History History of colon resection History of bilateral knee replacement H/O: hysterectomy Family History Other No significant family history Social History Smoking Status: Never smoker years smoked: 56 how long ago did patient quit smoking: july 2022 quit status: quit date established second hand exposure: No alcohol intake: never substance use type: denies use current occupational status: other Travel in the last 8 weeks: None household members: spouse and children housing: house lives independently: No marital status: education level: college current occupational exposures/hazards: No caffeine: Yes
== END 2024-05-19 23:59 | disposition home or self-care (01) ==
PROVIDERS: Visit Provider Nurse Practitioner Family
DX: G89.4 Chronic pain syndrome (principal); M47.26 Other spondylosis with radiculopathy, lumbar region; M51.36 Other intervertebral disc degeneration, lumbar region
CPT/HCPCS: 99212; G0463

== ENCOUNTER 2024-06-24 09:42 | Outpatient (CLI) | payer MEDICARE, SELFPAY ==
[2024-06-24] MEDS: ALBUTEROL 0.083% 2.5 MG/3 ML NEB IH (13:23)
--- NOTE | 2024-06-24 13:23 | PC.NURSE ---
Pre and Post Spirometry completed without incident, Albuterol 0.083% given via HHN per written protocol, Pt tolerated tx well.
== END 2024-06-24 23:59 | disposition home or self-care (01) ==
LOC: RT 09:44
PROVIDERS: PCP Internal Medicine Adolescent Medicine; Visit Provider Internal Medicine Pulmonary Disease
DX: R06.02 Shortness of breath (principal); J44.9 Chronic obstructive pulmonary disease, unspecified; Z87.891 Personal history of nicotine dependence
CPT/HCPCS: 94060; J7613

== ENCOUNTER 2024-07-22 12:18 | Outpatient (CLI) | payer MEDICARE, SELFPAY ==
--- NOTE | 2024-07-22 12:21 | MM_ITS ---
PROCEDURE INFORMATION: Exam: MG Bilateral Screening 3D Mammography Exam date and time: 07/22/2024 12:53 PM Age: 73 years old Clinical indication: Screening examination TECHNIQUE: Imaging protocol: Bilateral Screening tomosynthesis and 2D mammography including computer-aided detection (CAD) when performed. COMPARISON: 1. MG MM DIG SCREENING MAMM BI W/CAD 12/25/2022 8:21 AM 2. MG MM DIG MAMM DX UNILAT LT CAD 10/25/2020 1:00 PM FINDINGS: MAMMOGRAPHY: Breast composition: There are scattered areas of fibroglandular density. Mass: None. Architectural distortion: None. Calcifications: No suspicious calcifications. Asymmetric density: None. Skin thickening: None. Axillary adenopathy: None. IMPRESSION: No mammographic evidence of malignancy. Annual screening is recommended unless otherwise clinically indicated. ASSESSMENT: BI-RADS Category 1: Negative
--- NOTE | 2024-07-22 12:22 | CT_ITS ---
FINAL REPORT CLINICAL HISTORY: SCREENING FORMER SMOKER QUIT 2 YEARS AGO, 2PPD X52 YEARS WHEN SMOKING COMPARISON: 01/18/2024 FINDINGS: Axial images were obtained from the lung apex to the mid abdomen by computed tomography. Low-dose protocol was utilized. CTDl vol(mGy): 2.90 DLP (mGy-cm): 84.65 FINDINGS: There is no axillary adenopathy. There is no hilar or mediastinal adenopathy. There are marked coronary artery calcifications. The heart size is normal. There is no pericardial or pleural effusion. Limited images of the upper abdomen are unremarkable. Lung window images demonstrate calcified granuloma in the left upper lobe. There is scarring in the lung bases. There is no suspicious pulmonary nodule. IMPRESSION: Lung RADS category 1. Recommend 12 month follow-up low-dose chest CT. Reviewed, Interpreted and Dictated by Luciano Apple MD Transcribed by Fariba Armijo Authenticated and [facility]
== END 2024-07-22 23:59 | disposition home or self-care (01) ==
LOC: RAD 12:18
PROVIDERS: PCP Internal Medicine Adolescent Medicine; Visit Provider Internal Medicine Adolescent Medicine
DX: Z12.31 Encounter for screening mammogram for malignant neoplasm of breast (principal); Z87.891 Personal history of nicotine dependence
CPT/HCPCS: 71271; 77063; 77067

== ENCOUNTER 2024-09-01 11:16 | Outpatient (CLI) | payer MEDICARE, SELFPAY ==
--- NOTE | 2024-09-01 11:25 | XR_ITS ---
FINAL REPORT CLINICAL HISTORY: PAIN IN RIGHT HIP, CHRONIC FINDINGS: RIGHT HIP Two views of the right hip demonstrate no acute fracture or dislocation. There is moderate to severe right and severe left degenerative change. The visualized bony structures are well aligned. No soft tissue abnormality is seen. IMPRESSION: Moderate to severe degenerative changes of the hips without acute bony abnormality. Reviewed, Interpreted and Dictated by Guillermo Banegas III, MD Transcribed by Violette Sparks Authenticated and [facility]
== END 2024-09-01 23:59 | disposition home or self-care (01) ==
LOC: RAD 11:18
PROVIDERS: PCP Internal Medicine Adolescent Medicine; Visit Provider Anesthesiology
DX: M25.551 Pain in right hip (principal)
CPT/HCPCS: 73502

== ENCOUNTER 2024-09-22 10:50 | Outpatient (CLI) | payer MEDICARE, SELFPAY ==
[2024-09-22] MEDS: DENOSUMAB 60 MG/ML SYRINGE SUBCUT (11:30)
[2024-09-22 11:33] VITALS: BP 133/80; PULSE 62; RESP 19; O2SAT 95
== END 2024-09-22 11:33 | disposition home or self-care (01) ==
LOC: INF 10:51
PROVIDERS: PCP Internal Medicine Adolescent Medicine; Visit Provider Internal Medicine Adolescent Medicine
DX: M19.90 Unspecified osteoarthritis, unspecified site (principal)
CPT/HCPCS: 96372; J0897

== ENCOUNTER 2024-10-12 20:24 | Inpatient (IN) | payer MEDICARE, SELFPAY ==
[2024-10-12] VITALS (10 sets, daily range): BP systolic 138–159; BP diastolic 97–117; PULSE 103–118; RESP 21–42; TEMP 36.8–37.2; O2SAT 92–97; BMI 25.7
--- NOTE | 2024-10-12 20:32 | XR_ITS ---
PROCEDURE INFORMATION: Exam: XR Chest Exam date and time: 10/12/2024 8:39 PM Age: 73 years old Clinical indication: Shortness of breath TECHNIQUE: Imaging protocol: Radiologic exam of the chest. Views: 1 view. COMPARISON: CT LUNG SCREENING 07/22/2024 12:27 PM FINDINGS: Lungs: No evidence of acute pulmonary disease or infiltrates Pleural spaces: No large effusion or pneumothorax. Heart/Mediastinum: No evidence of mediastinal widening or cardiac silhouette enlargement; the mediastinum and heart appear within normal limits for contour and size. Vasculature: There are calcifications of the aortic arch. Bones/joints: Old left proximal humeral fracture. The patient is status post median sternotomy. IMPRESSION: No dense parenchymal consolidation, pleural effusion, or pneumothorax.
[2024-10-12 20:38] LABS: Basophils # 0.1 K/mm3 (0-0.2); Basophils % 0.5 % (0.1-2.0); Hematocrit 47.3 % (37.0-47.0); Lymphocytes # 2.6 K/mm3 (0.7-4.5); Lymphocytes % 23.1 % (10-50); Mean Corpuscular HGB Conc 33.8 g/dL (31.8-35.4); Mean Corpuscular Hemoglobin 31.1 pg (27.0-31.2); Mean Corpuscular Volume 91.8 fl (81-99); Monocytes # 0.7 K/mm3 (0.1-1.0); Monocytes % 6.2 % (1.7-9.3); Neutrophils # 7.9 K/mm3 (1.8-7.8); Neutrophils % 70.1 % (37.0-80.0); Platelet Count 362 K/mm3 (142-424); Red Blood Count 5.16 M/mm3 (4.20-5.40); Red Cell Distribution Width 14.2 % (11.5-17.5); White Blood Count 11.2 K/mm3 (4.8-10.8)
[2024-10-12 20:43] LABS: VBG Base Excess -1.1 mmol/L (-2.4-2.3); VBG HCO3 24.9 mmol/L (23-30); VBG Oxygen Saturation 93.4 % (50-70); VBG PCO2 49.4 mmol/L (35-51); VBG PH 7.32 mmol/L (7.31-7.41); VBG PO2 68.1 mmol/L (28-40); VBG Total CO2 26.5 mmol/L (23-27)
[2024-10-12 20:48] LABS: Albumin Level 3.8 g/dl (3.5-5.0); Chloride 111 mmol/L (98-107); Sodium 141 mmol/L (136-145)
[2024-10-12 20:49] LABS: Potassium 3.4 mmoL/L (3.5-5.1)
[2024-10-12 20:51] LABS: Alanine Aminotransferase 14 U/L (12-78); Albumin/Globulin Ratio 1.5 (1.1-1.8); Alkaline Phosphatase 62 U/L (38-126); Anion Gap 9.4 mEq/L (5-15); Aspartate Amino Transferase 27 U/L (14-36); Bilirubin,Total 0.9 mg/dl (0.2-1.3); Blood Urea Nitrogen 6 mg/dl (7-17); Calcium 7.8 mg/dl (8.4-10.2); Carbon Dioxide 24 mmol/L (22.0-30.0); Creatinine Clearance Estimated 55 mL/min (50-200); Estimated Glomerular Filt Rate 121 ml/min (>60); GFR (African American) 147 ML/MIN (>60); Globulin 2.6 g/dL (1.3-3.2); Glucose 115 mg/dl (74-100); Total Protein,Serum 6.4 g/dl (6.3-8.2)
[2024-10-12] MEDS: IPRATROPIUM/ALBUTEROL 3 ML NEB 9 ML IH (20:52)
[2024-10-12] MEDS: ACETAMINOPHEN 1,000MG/100ML VIAL 1000 MG IV (20:54)
[2024-10-12] MEDS: 0.9 % SODIUM CHLORIDE 500 ML IV (20:54)
[2024-10-12] MEDS: CEFTRIAXONE SODIUM 2 GM in 0.9 % SODIUM CHLORIDE 100 ML IV (20:55)
[2024-10-12] MEDS: AZITHROMYCIN 500 MG in 0.9 % SODIUM CHLORIDE 250 ML 250 MG IV (20:55)
[2024-10-12 20:58] LABS: Adenovirus,PCR Not Detected (NotDetected); Bordetella Pertussis Not Detected (NotDetected); Chlamydophila Pneumoniae, PCR Not Detected (NotDetected); Coronavirus 19, PCR Not Detected (NotDetected); Coronavirus 229E Not Detected (NotDetected); Coronavirus NL63 Not Detected (NotDetected); Coronavirus OC43 Not Detected (NotDetected); Coronovirus HKU1,PCR Not Detected (NotDetected); Human Metapneumovirus Not Detected (NotDetected); Influenza A, PCR Not Detected (NotDetected); Influenza AH1, 2009 Not Detected (NotDetected); Influenza AH1, PCR Not Detected (NotDetected); Influenza AH3,PCR Not Detected (NotDetected); Influenza B, PCR Not Detected (NotDetected); Mycoplasma Pneumoniae, PCR Not Detected (NotDetected); Parainfluenza 1, PCR Not Detected (NotDetected); Parainfluenza 2, PCR Not Detected (NotDetected); Parainfluenza 3, PCR Not Detected (NotDetected); Parainfluenza 4, PCR Not Detected (NotDetected); Respiratory Syncytial Virus Not Detected (NotDetected); Rhinovirus/Enterovirus Not Detected (NotDetected)
[2024-10-12 21:11] LABS: Magnesium 1.8 mg/dl (1.6-2.3)
--- NOTE | 2024-10-12 21:14 | HMH.EDGENADL ---
Discharge Plan Disposition Patient Disposition: Admitted Clinical Impressions Clinical Impression: SOB (shortness of breath), Pneumonia, Acute hypoxemic respiratory failure Discharge ED Provider: Joe Michelle General Adult HPI <Kenyatta Bach (ED), LENS BLOCK GAUGER - Last Filed: 10/12/24 21:16> General Chief complaint: Shortness of Breath/Dyspnea Stated complaint: shortness of air Time Seen by Provider: 10/12/24 20:31 Mode of Arrival: EMS Source of Information: Patient, Relative and EMS Limitations: No Limitations Description of Symptoms (Recalled from ER Triage Doc. by RN): 73 F presents from home via EMS with c/o increased shortness of air. Patient arrives on 2L/NC in the tripod position with purse lip breathing. Patient has history of COPD with acute exacerbations at times. Patient reports this episode started a few hours ago and has gotten worse. Room air saturation was 91%, but patient wears the 2L/NC prn and requests it stay on. Related Data Home Medications ?Medication ?Instructions ?Recorded ?Confirmed albuterol sulfate 90 mcg/actuation 2 inh inhalation Q4-6H PRN 10/12/24 10/13/24 aerosol inhaler Shortness of breath apixaban 5 mg tablet (Eliquis) 5 mg PO BID 10/12/24 10/13/24 bisoprolol fumarate 5 mg tablet 5 mg PO DAILY 10/12/24 10/13/24 escitalopram oxalate 20 mg tablet 20 mg PO DAILY 10/12/24 10/13/24 famotidine 20 mg tablet 20 mg PO BID 10/12/24 10/13/24 montelukast 10 mg tablet 10 mg PO DAILY 10/12/24 10/13/24 ropinirole 1 mg tablet 3 mg PO HS 10/12/24 10/13/24 temazepam 15 mg capsule 15 mg PO HS 10/12/24 10/13/24 trazodone 50 mg tablet 50 mg PO HS 10/12/24 10/13/24 vibegron 75 mg tablet (Gemtesa) 75 mg PO DAILY 10/12/24 10/13/24 benralizumab 30 mg/mL subcutaneous 30 mg SQ Q56D 10/13/24 10/13/24 auto-injector (Fasenra Pen) budesonide 160 mcg-glycopyr 9 2 inh inhalation BID 10/13/24 10/13/24 mcg-formot 4.8 mcg/actuation HFA inhaler (Breztri Aerosphere) evolocumab 140 mg/mL subcutaneous 140 mg SQ Q14D 10/13/24 10/13/24 pen injector (Repatha SureClick) fluticasone propionate 50 2 spray intranasal DAILY 10/13/24 10/13/24 mcg/actuation nasal spray,suspension Allergies Allergy/AdvReac Type Severity Reaction Status Date / Time codeine Allergy Mild Gastrointestinal Verified 10/12/24 22:19 Upset diphenhydramine (From Allergy Mild Flushing Verified 10/12/24 22:19 Benadryl) Penicillins Allergy Mild Hives Verified 10/12/24 22:19 isosorbide AdvReac Intermediate Severe [place] Verified 06/24/24 10:58 diazepam (From Valium) AdvReac Mild Agitated Verified 06/24/24 10:58 <Joe Michelle MD - Last Filed: 10/13/24 15:27> History of Present Illness HPI narrative: Please note that above description of symptoms, in this electronic medical record under categorization of recalled from ER triage doctor by RN are reflective of an initial nursing assessment, however, is not reflective of my full history and physical exam that was personally taken and clarified. Consequentially, this preceding description of symptoms, which may include the patient's categorized chief complaint in the EMR, do not reflect my personal clinical impression, and the ultimate description of history of present illness and patient stated complaints should be deferred to this section of the note. Unless stated otherwise or congruent with this section of the note, additional signs, symptoms, or incongruence should be interpreted as inaccurate with my clinical impression. [facility] <Kenyatta Bach (RUPAL)EDWAR - Last Filed: 10/12/24 21:16> [facility] Disclaimer: The information contained in this section may have been updated after the patient was seen, as this information can be updated by other users. Medical History (Updated 10/13/24 @ 02:04 by Franky Jones APRN) Thoracic compression fracture Former smoker Fatigue Angina pectoris Gastroenteritis COVID-19 COPD exacerbation Acute costochondritis COPD exacerbation COPD with acute exacerbation Restless leg syndrome Enterocolitis Peripheral eosinophilia Severe persistent asthma Stopped smoking with greater than 30 pack year history Centrilobular emphysema Asthma exacerbation Pneumonia Eosinophilia (Unknown) Allergic rhinitis Dyspnea on exertion Encounter for screening for malignant neoplasm of lung in current smoker with 30 pack year history or greater Asthma History of smoking 30 or more pack years Acute respiratory failure with hypoxia COPD exacerbation Atrial fibrillation Anxiety Depression COPD (chronic obstructive pulmonary disease) SOB (shortness of breath) COPD (chronic obstructive pulmonary disease) Surgical History (Updated 10/13/24 @ 02:00 by Franky Jones APRN) Hx of CABG Status post ablation of atrial fibrillation History of colon resection History of bilateral knee replacement H/O: hysterectomy Family History Other No significant family history Social History (Updated 10/13/24 @ 00:01 by Maria T Stratton RN) Smoking Status: Former smoker years smoked: 56 how long ago did patient quit smoking: july 2022 quit status: quit date established second hand exposure: No alcohol intake: never substance use type: denies use current occupational status: retired and other Travel in the last 8 weeks: None household members: spouse and children housing: house lives independently: No marital status: education level: college current occupational exposures/hazards: No caffeine: Yes Other Medical History Have you received the Flu Vaccine for this season: Yes Have you received the Pneumonia Vaccine: Yes <Joe Michelle MD - Last Filed: 10/13/24 15:27> ROS Obtained: Yes All systems reviewed & no additional complaints except as documented Physical Exam <Joe Michelle MD - Last Filed: 10/13/24 15:27> General General appearance: alert, anxious and in distress (Respiratory, anxious) Head Head exam: atraumatic and normocephalic Eye Eye exam: Present normal appearance, PERRL and EOMI Neck Neck exam: Present normal inspection, full ROM and trachea midline Respiratory Respiratory exam: Present wheezes (Diffuse end expiratory wheezes, but quiet breath sounds throughout), accessory muscle use and prolonged expiratory phase; Absent respiratory distress or stridor Cardiovascular Cardiovascular exam: Present normal rhythm, tachycardia and other (Pulses equal symmetric in upper and lower extremities) Abdominal Exam Abdominal exam: Present soft; Absent distention, tenderness or pulsatile mass Extremities Exam Extremities exam: Absent edema Neurological Exam Neurological exam: Present alert, oriented X3 and CN II-XII intact; Absent motor sensory deficit Skin Skin exam: Present warm and dry; Absent diaphoresis or erythema Medical Decision Making <Kenyatta Bach (ED), LENS BLOCK GAUGER - Last Filed: 10/12/24 21:16> Medical Records Screening: Per USPSTF and CDC recommendations, given the prevalence of disease in our region, it is our hospital?s policy to screen for HIV and viral Hepatitis for all patients aged 18 and over and those with ongoing risk factors. Vital Signs: 10/12/24 20:24 10/12/24 21:00 10/12/24 21:17 Temperature 99 F Temperature Source Oral Pulse Rate 103 H 118 H Pulse Rate [Apical] 106 H Respiratory Rate 30 H 21 33 H Blood Pressure 138/99 H 141/117 H Blood Pressure [Right Arm] 142/106 H Blood Pressure Mean Blood Pressure Mean [Right Arm] 118 Blood Pressure Source Blood Pressure Source [Right Arm] Automatic Cuff Blood Pressure Position Blood Pressure Position [Right Arm] Sitting 02 Sat by Pulse Oximetry 92 L 96 94 L Oxygen Delivery Method Nasal Cannula Oxygen Flow Rate (LPM) 2 10/12/24 21:30 10/12/24 21:45 10/12/24 22:15 Temperature Temperature Source Pulse Rate 113 H 116 H Pulse Rate [Apical] Respiratory Rate 21 27 H 28 H Blood Pressure 147/114 H 145/102 H 153/97 H Blood Pressure [Right Arm] Blood Pressure Mean 116 Blood Pressure Mean [Right Arm] Blood Pressure Source Blood Pressure Source [Right Arm] Blood Pressure Position Blood Pressure Position [Right Arm] 02 Sat by Pulse Oximetry 94 L 94 L Oxygen Delivery Method BiPAP Oxygen Flow Rate (LPM) 10/12/24 22:56 10/12/24 23:00 10/12/24 23:03 Temperature Temperature Source Pulse Rate Pulse Rate [Apical] Respiratory Rate 42 H Blood Pressure Blood Pressure [Right Arm] Blood Pressure Mean Blood Pressure Mean [Right Arm] Blood Pressure Source Blood Pressure Source [Right Arm] Blood Pressure Position Blood Pressure Position [Right Arm] 02 Sat by Pulse Oximetry Oxygen Delivery Method Vapotherm Vapotherm Vapotherm Oxygen Flow Rate (LPM) 30 10/12/24 23:16 10/12/24 23:21 Temperature 98.2 F Temperature Source Axillary Pulse Rate 116 H 110 H Pulse Rate [Apical] Respiratory Rate 32 H Blood Pressure 159/101 H Blood Pressure [Right Arm] Blood Pressure Mean Blood Pressure Mean [Right Arm] Blood Pressure Source Automatic Cuff Blood Pressure Source [Right Arm] Blood Pressure Position Sitting Blood Pressure Position [Right Arm] 02 Sat by Pulse Oximetry Oxygen Delivery Method Vapotherm Oxygen Flow Rate (LPM) 35 Lab Data Lab Results 10/12/24 20:22: WBC 11.2 H, RBC 5.16, Hgb 16.0, Hct 47.3 H, MCV 91.8, MCH 31.1, MCHC 33.8, RDW 14.2, Plt Count 362, MPV 7.0 L, Neut % (Auto) 70.1, Lymph % (Auto) 23.1, [place] % (Auto) 6.2, Eos % (Auto) 0.0 L, Baso % (Auto) 0.5, Neut # (Auto) 7.9 H, Lymph # (Auto) 2.6, [place] # (Auto) 0.7, Eos # (Auto) 0.0, Baso # (Auto) 0.1, Sodium 141, Potassium 3.4 L, Chloride 111 H, Carbon Dioxide 24, Anion Gap 9.4, BUN 6 L, Creatinine 0.50 L, Estimated Creat Clear 55, Estimated GFR 121, Est GFR ( Amer) 147, Glucose 115 H, Calcium 7.8 L, Total Bilirubin 0.9, AST 27, ALT 14, Alkaline Phosphatase 62, Total Protein 6.4, Albumin 3.8, Globulin 2.6, Albumin/Globulin Ratio 1.5, HIV 1&2 Antibody Rapid Nonreactive 10/12/24 20:41: VBG pH 7.32, VBG pCO2 49.4, VBG pO2 68.1 H, VBG HCO3 24.9, VBG Total CO2 26.5, VBG O2 Saturation 93.4 H, VBG Base Excess -1.1, VBG Lactic Acid 2.0 10/12/24 20:47: Lactate 1.0, Magnesium 1.8, Troponin I < 0.01, NT-Pro-B Natriuret Pep 709 H, Chlamy pneumoniae PCR Not detected, Adenovirus (PCR) Not detected, B. pertussis DNA (PCR) Not detected, Coronavirus OC43 (PCR) Not detected, Coronavirus HKU1 (PCR) Not detected, Coronavirus 229E (PCR) Not detected, SARS-CoV-2 (PCR) Not detected, Coronavirus NL63 (PCR) Not detected, Human Metapneumovir PCR Not detected, Influenza A (H1) PCR Not detected, Influ A (H1N1/09) PCR Not detected, Influenza A (H3) PCR Not detected, Influenza Type A (PCR) Not detected, Influenza Type B (PCR) Not detected, M. pneumoniae (PCR) Not detected, Parainfluenza 1 (PCR) Not detected, Parainfluenza 2 (PCR) Not detected, Parainfluenza 3 (PCR) Not detected, Parainfluenza 4 (PCR) Not detected, RSV (PCR) Not detected, Entero/Rhino (PCR) Not detected 10/13/24 05:20 10/13/24 05:20 Orders (Tests/Meds): ED MEDICATIONS Generic Name Dose Route Start Last Admin Trade Name Freq PRN Reason Stop Dose Admin Acetaminophen 650 mg 10/12/24 23:21 Acetaminophen 325mg Tab PO 11/11/24 23:20 Q6HP PRN Fever or Mild Pain (1-3) Albuterol/Ipratropium 3 ml 10/13/24 18:00 Ipratropium/Albuterol 3 Ml [facility] 11/12/24 17:59 Q4RT [facility] Apixaban 5 mg 10/13/24 09:00 10/13/24 08:53 Apixaban 5mg Tablet PO 11/12/24 08:59 5 mg BID CORDELIA Administration Azithromycin 500 mg 10/13/24 09:00 10/13/24 08:54 Azithromycin 250mg Tablet PO 10/17/24 08:59 500 mg DAILY CORDELIA Administration Bisoprolol Fumarate 5 mg 10/13/24 09:00 10/13/24 08:53 Bisoprolol 5mg Tablet PO 11/12/24 08:59 5 mg DAILY CORDELIA Administration Budesonide 0.5 mg 10/13/24 08:55 10/13/24 14:15 Budesonide 0.5mg/2ml [facility] 11/12/24 08:54 Not Given BIDRT CORDELIA Citalopram Hydrobromide 40 mg 10/13/24 09:00 10/13/24 08:53 Citalopram 40mg Tablet PO 11/12/24 08:59 40 mg DAILY CORDELIA Administration Famotidine 20 mg 10/13/24 09:00 10/13/24 08:53 Famotidine 20mg Tablet PO 11/12/24 08:59 20 mg BID CORDELIA Administration Guaifenesin 600 mg 10/13/24 01:00 10/13/24 08:53 Guaifenesin 600 Mg Tab.Er.12h PO 11/12/24 00:59 600 mg BID CORDELIA Administration Ceftriaxone Sodium 1 gm/ 50 mls @ 100 mls/hr 10/13/24 09:00 10/13/24 10:04 Sodium Chloride IV 10/18/24 09:59 100 mls/hr Q24H CORDELIA Administration Magnesium Hydroxide 30 ml 10/12/24 23:21 Milk Of Magnesia 30ml Udc PO 11/11/24 23:20 BIDP PRN Constipation Methylprednisolone Sodium Succinate 40 mg 10/13/24 09:00 10/13/24 10:04 Methylprednisolone Sod Succ 40mg Vial IV 11/12/24 08:59 40 mg DAILY CORDELIA Administration Morphine Sulfate 1 mg 10/13/24 00:08 Morphine 2mg/Ml Syringe IV 11/12/24 00:07 Q1HP PRN Severe Pain (7-10) Ondansetron HCl 4 mg 10/12/24 23:21 Ondansetron 4mg/2ml Vial IV 11/11/24 23:20 Q6HP PRN Nausea Ropinirole HCl 1 mg 10/13/24 21:00 Ropinirole 1mg Tablet PO 11/12/24 20:59 HS CORDELIA Sodium Chloride 10 ml 10/12/24 23:21 Sodium Chloride 0.9% 10ml Flush Syringe IV 11/11/24 23:20 NEEDED PRN Maintain IV Site Sodium Chloride 3 ml 10/13/24 09:21 10/13/24 09:38 Sodium Chloride 3% 15ml Neb 11/12/24 09:20 3 ml ONCE PRN Administration [employer] Temazepam 15 mg 10/13/24 21:00 Temazepam 15mg Capsule PO 11/12/24 20:59 HS [facility] Trazodone HCl 50 mg 10/13/24 21:00 Trazodone 50mg Tablet PO 11/12/24 20:59 HS [facility] Discontinued Medications Generic Name Dose Route Start Last Admin Trade Name Freq PRN Reason Stop Dose Admin Acetaminophen 1,000 mg 10/12/24 20:32 10/12/24 20:54 Acetaminophen 1,000mg/100ml Vial IV 10/12/24 20:33 1,000 mg ONCE ONE Administration Albuterol/Ipratropium 9 ml 10/12/24 20:44 10/12/24 20:52 Ipratropium/Albuterol 3 Ml Neb 10/12/24 20:45 9 ml ONCE ONE Administration Albuterol/Ipratropium 3 ml 10/13/24 12:00 10/13/24 14:19 Ipratropium/Albuterol 3 Ml Neb 11/12/24 11:59 3 ml Q6RT CORDELIA Administration Furosemide 20 mg 10/13/24 00:59 10/13/24 01:05 Furosemide 20 Mg/2 Ml Vial IV 10/13/24 01:00 20 mg ONCE ONE Administration Furosemide 40 mg 10/13/24 08:27 10/13/24 08:57 Furosemide 40mg/4ml Vial IV 10/13/24 08:28 Not Given ONCE ONE Haloperidol Lactate 2.5 mg 10/12/24 21:41 10/12/24 21:45 Haloperidol Lactate 5 Mg/Ml Vial IV 10/12/24 21:42 2.5 mg ONCE ONE Administration Haloperidol Lactate 2.5 mg 10/12/24 22:24 10/12/24 22:24 Haloperidol Lactate 5 Mg/Ml Vial IV 10/12/24 22:25 2.5 mg ONCE ONE Administration Ceftriaxone Sodium 2 gm/ 100 mls @ 200 mls/hr 10/12/24 20:45 10/12/24 20:55 Sodium Chloride IV 10/12/24 21:14 200 mls/hr ONCE ONE Administration Azithromycin 500 mg/ Sodium 250 mls @ 250 mls/hr 10/12/24 20:39 10/12/24 20:55 Chloride IV 10/12/24 20:40 250 mls/hr ONCE ONE Administration Sodium Chloride 500 mls @ 500 mls/hr 10/12/24 20:38 10/12/24 20:54 Sod Chloride 0.9% 500ml Bag IV 10/12/24 21:37 500 mls/hr .Q1H CORDELIA Administration Magnesium Sulfate 2 gm in 50 mls @ 50 mls/hr 10/12/24 21:28 10/12/24 21:31 Magnesium Sulfate 2gm/50ml Premix IV 10/12/24 22:27 50 mls/hr ONCE ONE Administration Magnesium Sulfate 2 gm in 50 mls @ 50 mls/hr 10/12/24 22:36 10/12/24 22:37 Magnesium Sulfate 2gm/50ml Premix IV 10/12/24 23:35 50 mls/hr ONCE ONE Administration Iopamidol 70 ml 10/12/24 22:11 10/12/24 22:12 Iopamidol-370 (76%);100ml Bottle IV 10/12/24 22:12 70 ml ONCE ONE Administration Ketamine HCl 20 mg 10/12/24 22:35 10/12/24 22:37 Ketamine 50mg/1ml Syringe IV 10/12/24 22:36 20 mg ONCE ONE Administration Levalbuterol HCl 3.75 mg 10/12/24 22:35 10/12/24 23:02 Levalbuterol 1.25mg/3ml Neb IH 10/12/24 22:36 3.75 mg ONCE ONE Administration Levalbuterol HCl 1.25 mg 10/13/24 06:00 10/13/24 06:29 Levalbuterol 1.25mg/3ml Neb 11/12/24 05:59 1.25 mg QIDRT CORDELIA Administration Lorazepam 1 mg 10/12/24 21:38 10/12/24 21:42 Lorazepam 2mg/Ml Vial IV 10/12/24 21:39 Not Given ONCE ONE Morphine Sulfate 2 mg 10/12/24 23:12 10/13/24 00:05 Morphine 2mg/Ml Syringe IV 10/12/24 23:13 2 mg ONCE ONE Administration Morphine Sulfate 2 mg 10/12/24 23:21 Morphine 2mg/Ml Syringe IV 11/11/24 23:20 Q2HP PRN Severe Pain (7-10) Ondansetron HCl 4 mg 10/12/24 21:38 10/12/24 21:39 Ondansetron 4mg/2ml Vial IV 10/12/24 21:39 4 mg ONCE ONE Administration Potassium Chloride 60 meq 10/12/24 21:29 10/12/24 21:31 Potassium Chloride 20meq Tab PO 10/12/24 21:30 60 meq ONCE ONE Administration Ropinirole HCl 1 mg 10/12/24 22:55 10/12/24 22:56 Ropinirole 1mg Tablet PO 10/12/24 22:56 1 mg ONCE ONE Administration Sodium Chloride 10 ml 10/12/24 20:32 Sodium Chloride 0.9% 10ml Flush Syringe IV 11/11/24 20:31 NEEDED PRN Maintain IV Site Sodium Chloride 10 ml 10/12/24 21:38 Sodium Chloride 0.9% 10ml Vial IV 11/11/24 21:37 NEEDED PRN to Dilute Lorazepam inj Sodium Chloride 50 ml 10/12/24 22:11 10/12/24 22:12 0.9 % Sodium Chloride 50 Ml Vial IV 10/12/24 22:12 50 ml ONCE ONE Administration Sodium Chloride 10 ml 10/12/24 22:11 10/12/24 22:13 Sodium Chloride 0.9% 10ml Syr (Rad Only) IV 11/11/24 22:10 10 ml NEEDED PRN Administration Maintain IV Site Tramadol HCl 50 mg 10/13/24 00:10 10/13/24 08:57 Tramadol 50mg Tablet PO 11/12/24 00:09 Not Given TID CORDELIA ORDERS Category Date Time Status CTA Chest [CT angio chest PE protocol] Stat Cat Scan 10/12/24 21:43 Completed XR chest portable Stat Exams 10/12/24 20:32 Completed CMP [Comprehensive Metabolic Panel] Stat Lab 10/12/24 20:22 Completed Complete Blood Count Auto Diff Stat Lab 10/12/24 20:22 Completed Full Resp Panel w/COVID ([facility]) Routine Lab 10/12/24 20:47 Completed HIV (1&2) Antibody Rapid Stat Lab 10/12/24 20:22 Completed Hep C Ab with Reflex to RNA Stat Lab 10/12/24 20:22 Received Lactic Acid Stat Lab 10/12/24 20:47 Completed Magnesium Stat Lab 10/12/24 20:47 Completed NT Pro Brain Natriuretic Pep. Stat Lab 10/12/24 20:47 Completed Troponin I Q3H Lab 10/13/24 00:15 Completed Troponin I Q3H Lab 10/13/24 02:55 Completed Troponin I Stat Lab 10/12/24 20:47 Completed Blood Culture Stat Micro 10/12/24 20:47 Received Venous Blood Gas Routine RT 10/12/24 20:41 Completed <Joe Michelle MD - Last Filed: 10/13/24 15:27> Medical Records Medical records reviewed: Yes I reviewed the patient's medical records. Donald Inquiry Pt receiving controlled substance: No Donald was queried for this patient: No Vital Signs: 10/12/24 20:24 10/12/24 21:00 10/12/24 21:17 Temperature 99 F Temperature Source Oral Pulse Rate 103 H 118 H Pulse Rate [Apical] 106 H Respiratory Rate 30 H 21 33 H Blood Pressure 138/99 H 141/117 H Blood Pressure [Right Arm] 142/106 H Blood Pressure Mean Blood Pressure Mean [Right Arm] 118 Blood Pressure Source Blood Pressure Source [Right Arm] Automatic Cuff Blood Pressure Position Blood Pressure Position [Right Arm] Sitting 02 Sat by Pulse Oximetry 92 L 96 94 L Oxygen Delivery Method Nasal Cannula Oxygen Flow Rate (LPM) 2 10/12/24 21:30 10/12/24 21:45 10/12/24 22:15 Temperature Temperature Source Pulse Rate 113 H 116 H Pulse Rate [Apical] Respiratory Rate 21 27 H 28 H Blood Pressure 147/114 H 145/102 H 153/97 H Blood Pressure [Right Arm] Blood Pressure Mean 116 Blood Pressure Mean [Right Arm] Blood Pressure Source Blood Pressure Source [Right Arm] Blood Pressure Position Blood Pressure Position [Right Arm] 02 Sat by Pulse Oximetry 94 L 94 L Oxygen Delivery Method BiPAP Oxygen Flow Rate (LPM) 10/12/24 22:56 10/12/24 23:00 10/12/24 23:03 Temperature Temperature Source Pulse Rate Pulse Rate [Apical] Respiratory Rate 42 H Blood Pressure Blood Pressure [Right Arm] Blood Pressure Mean Blood Pressure Mean [Right Arm] Blood Pressure Source Blood Pressure Source [Right Arm] Blood Pressure Position Blood Pressure Position [Right Arm] 02 Sat by Pulse Oximetry Oxygen Delivery Method Vapotherm Vapotherm Vapotherm Oxygen Flow Rate (LPM) 30 10/12/24 23:16 10/12/24 23:21 Temperature 98.2 F Temperature Source Axillary Pulse Rate 116 H 110 H Pulse Rate [Apical] Respiratory Rate 32 H Blood Pressure 159/101 H Blood Pressure [Right Arm] Blood Pressure Mean Blood Pressure Mean [Right Arm] Blood Pressure Source Automatic Cuff Blood Pressure Source [Right Arm] Blood Pressure Position Sitting Blood Pressure Position [Right Arm] 02 Sat by Pulse Oximetry Oxygen Delivery Method Vapotherm Oxygen Flow Rate (LPM) 35 Lab Data Lab Results 10/12/24 20:22: WBC 11.2 H, RBC 5.16, Hgb 16.0, Hct 47.3 H, MCV 91.8, MCH 31.1, MCHC 33.8, RDW 14.2, Plt Count 362, MPV 7.0 L, Neut % (Auto) 70.1, Lymph % (Auto) 23.1, [place] % (Auto) 6.2, Eos % (Auto) 0.0 L, Baso % (Auto) 0.5, Neut # (Auto) 7.9 H, Lymph # (Auto) 2.6, [place] # (Auto) 0.7, Eos # (Auto) 0.0, Baso # (Auto) 0.1, Sodium 141, Potassium 3.4 L, Chloride 111 H, Carbon Dioxide 24, Anion Gap 9.4, BUN 6 L, Creatinine 0.50 L, Estimated Creat Clear 55, Estimated GFR 121, Est GFR ( Amer) 147, Glucose 115 H, Calcium 7.8 L, Total Bilirubin 0.9, AST 27, ALT 14, Alkaline Phosphatase 62, Total Protein 6.4, Albumin 3.8, Globulin 2.6, Albumin/Globulin Ratio 1.5, HIV 1&2 Antibody Rapid Nonreactive 10/12/24 20:41: VBG pH 7.32, VBG pCO2 49.4, VBG pO2 68.1 H, VBG HCO3 24.9, VBG Total CO2 26.5, VBG O2 Saturation 93.4 H, VBG Base Excess -1.1, VBG Lactic Acid 2.0 10/12/24 20:47: Lactate 1.0, Magnesium 1.8, Troponin I < 0.01, NT-Pro-B Natriuret Pep 709 H, Chlamy pneumoniae PCR Not detected, Adenovirus (PCR) Not detected, B. pertussis DNA (PCR) Not detected, Coronavirus OC43 (PCR) Not detected, Coronavirus HKU1 (PCR) Not detected, Coronavirus 229E (PCR) Not detected, SARS-CoV-2 (PCR) Not detected, Coronavirus NL63 (PCR) Not detected, Human Metapneumovir PCR Not detected, Influenza A (H1) PCR Not detected, Influ A (H1N1/09) PCR Not detected, Influenza A (H3) PCR Not detected, Influenza Type A (PCR) Not detected, Influenza Type B (PCR) Not detected, M. pneumoniae (PCR) Not detected, Parainfluenza 1 (PCR) Not detected, Parainfluenza 2 (PCR) Not detected, Parainfluenza 3 (PCR) Not detected, Parainfluenza 4 (PCR) Not detected, RSV (PCR) Not detected, Entero/Rhino (PCR) Not detected Orders (Tests/Meds): ED MEDICATIONS Generic Name Dose Route Start Last Admin Trade Name Freq PRN Reason Stop Dose Admin Acetaminophen 650 mg 10/12/24 23:21 Acetaminophen 325mg Tab PO 11/11/24 23:20 Q6HP PRN Fever or Mild Pain (1-3) Albuterol/Ipratropium 3 ml 10/13/24 18:00 Ipratropium/Albuterol 3 Ml [facility] 11/12/24 17:59 Q4RT COR[facility] Apixaban 5 mg 10/13/24 09:00 10/13/24 08:53 Apixaban 5mg Tablet PO 11/12/24 08:59 5 mg BID CORDELIA Administration Azithromycin 500 mg 10/13/24 09:00 10/13/24 08:54 Azithromycin 250mg Tablet PO 10/17/24 08:59 500 mg DAILY CORDELIA Administration Bisoprolol Fumarate 5 mg 10/13/24 09:00 10/13/24 08:53 Bisoprolol 5mg Tablet PO 11/12/24 08:59 5 mg DAILY CORDELIA Administration Budesonide 0.5 mg 10/13/24 08:55 10/13/24 14:15 Budesonide 0.5mg/2ml [facility] 11/12/24 08:54 Not Given BIDRT CORDELIA Citalopram Hydrobromide 40 mg 10/13/24 09:00 10/13/24 08:53 Citalopram 40mg Tablet PO 11/12/24 08:59 40 mg DAILY CORDELIA Administration Famotidine 20 mg 10/13/24 09:00 10/13/24 08:53 Famotidine 20mg Tablet PO 11/12/24 08:59 20 mg BID CORDELIA Administration Guaifenesin 600 mg 10/13/24 01:00 10/13/24 08:53 Guaifenesin 600 Mg Tab.Er.12h PO 11/12/24 00:59 600 mg BID CORDELIA Administration Ceftriaxone Sodium 1 gm/ 50 mls @ 100 mls/hr 10/13/24 09:00 10/13/24 10:04 Sodium Chloride IV 10/18/24 09:59 100 mls/hr Q24H CORDELIA Administration Magnesium Hydroxide 30 ml 10/12/24 23:21 Milk Of Magnesia 30ml Udc PO 11/11/24 23:20 BIDP PRN Constipation Methylprednisolone Sodium Succinate 40 mg 10/13/24 09:00 10/13/24 10:04 Methylprednisolone Sod Succ 40mg Vial IV 11/12/24 08:59 40 mg DAILY CORDELIA Administration Morphine Sulfate 1 mg 10/13/24 00:08 Morphine 2mg/Ml Syringe IV 11/12/24 00:07 Q1HP PRN Severe Pain (7-10) Ondansetron HCl 4 mg 10/12/24 23:21 Ondansetron 4mg/2ml Vial IV 11/11/24 23:20 Q6HP PRN Nausea Ropinirole HCl 1 mg 10/13/24 21:00 Ropinirole 1mg Tablet PO 11/12/24 20:59 HS [facility] Sodium Chloride 10 ml 10/12/24 23:21 Sodium Chloride 0.9% 10ml Flush Syringe IV 11/11/24 23:20 NEEDED PRN Maintain IV Site Sodium Chloride 3 ml 10/13/24 09:21 10/13/24 09:38 Sodium Chloride 3% 15ml [facility] 11/12/24 09:20 3 ml ONCE PRN Administration [employer] Temazepam 15 mg 10/13/24 21:00 Temazepam 15mg Capsule PO 11/12/24 20:59 HS [facility] Trazodone HCl 50 mg 10/13/24 21:00 Trazodone 50mg Tablet PO 11/12/24 20:59 HS [facility] Discontinued Medications Generic Name Dose Route Start Last Admin Trade Name Freq PRN Reason Stop Dose Admin Acetaminophen 1,000 mg 10/12/24 20:32 10/12/24 20:54 Acetaminophen 1,000mg/100ml Vial IV 10/12/24 20:33 1,000 mg ONCE ONE Administration Albuterol/Ipratropium 9 ml 10/12/24 20:44 10/12/24 20:52 Ipratropium/Albuterol 3 Ml Neb 10/12/24 20:45 9 ml ONCE ONE Administration Albuterol/Ipratropium 3 ml 10/13/24 12:00 10/13/24 14:19 Ipratropium/Albuterol 3 Ml Neb 11/12/24 11:59 3 ml Q6RT CORDELIA Administration Furosemide 20 mg 10/13/24 00:59 11/18/24 01:05 Furosemide 20 Mg/2 Ml Vial IV 10/13/24 01:00 20 mg ONCE ONE Administration Furosemide 40 mg 10/13/24 08:27 10/13/24 08:57 Furosemide 40mg/4ml Vial IV 10/13/24 08:28 Not Given ONCE ONE Haloperidol Lactate 2.5 mg 10/12/24 21:41 10/12/24 21:45 Haloperidol Lactate 5 Mg/Ml Vial IV 10/12/24 21:42 2.5 mg ONCE ONE Administration Haloperidol Lactate 2.5 mg 10/12/24 22:24 10/12/24 22:24 Haloperidol Lactate 5 Mg/Ml Vial IV 10/12/24 22:25 2.5 mg ONCE ONE Administration Ceftriaxone Sodium 2 gm/ 100 mls @ 200 mls/hr 10/12/24 20:45 10/12/24 20:55 Sodium Chloride IV 10/12/24 21:14 200 mls/hr ONCE ONE Administration Azithromycin 500 mg/ Sodium 250 mls @ 250 mls/hr 10/12/24 20:39 10/12/24 20:55 Chloride IV 10/12/24 20:40 250 mls/hr ONCE ONE Administration Sodium Chloride 500 mls @ 500 mls/hr 10/12/24 20:38 10/12/24 20:54 Sod Chloride 0.9% 500ml Bag IV 10/12/24 21:37 500 mls/hr .Q1H CORDELIA Administration Magnesium Sulfate 2 gm in 50 mls @ 50 mls/hr 10/12/24 21:28 10/12/24 21:31 Magnesium Sulfate 2gm/50ml Premix IV 10/12/24 22:27 50 mls/hr ONCE ONE Administration Magnesium Sulfate 2 gm in 50 mls @ 50 mls/hr 10/12/24 22:36 10/12/24 22:37 Magnesium Sulfate 2gm/50ml Premix IV 10/12/24 23:35 50 mls/hr ONCE ONE Administration Iopamidol 70 ml 10/12/24 22:11 10/12/24 22:12 Iopamidol-370 (76%);100ml Bottle IV 10/12/24 22:12 70 ml ONCE ONE Administration Ketamine HCl 20 mg 10/12/24 22:35 10/12/24 22:37 Ketamine 50mg/1ml Syringe IV 10/12/24 22:36 20 mg ONCE ONE Administration Levalbuterol HCl 3.75 mg 10/12/24 22:35 10/12/24 23:02 Levalbuterol 1.25mg/3ml [facility] 10/12/24 22:36 3.75 mg ONCE ONE Administration Levalbuterol HCl 1.25 mg 10/13/24 06:00 10/13/24 06:29 Levalbuterol 1.25mg/3ml [facility] 11/12/24 05:59 1.25 mg QIDRT CORDELIA Administration Lorazepam 1 mg 10/12/24 21:38 10/12/24 21:42 Lorazepam 2mg/Ml Vial IV 10/12/24 21:39 Not Given ONCE ONE Morphine Sulfate 2 mg 10/12/24 23:12 10/13/24 00:05 Morphine 2mg/Ml Syringe IV 10/12/24 23:13 2 mg ONCE ONE Administration Morphine Sulfate 2 mg 10/12/24 23:21 Morphine 2mg/Ml Syringe IV 11/11/24 23:20 Q2HP PRN Severe Pain (7-10) Ondansetron HCl 4 mg 10/12/24 21:38 10/12/24 21:39 Ondansetron 4mg/2ml Vial IV 10/12/24 21:39 4 mg ONCE ONE Administration Potassium Chloride 60 meq 10/12/24 21:29 10/12/24 21:31 Potassium Chloride 20meq Tab PO 10/12/24 21:30 60 meq ONCE ONE Administration Ropinirole HCl 1 mg 10/12/24 22:55 10/12/24 22:56 Ropinirole 1mg Tablet PO 10/12/24 22:56 1 mg ONCE ONE Administration Sodium Chloride 10 ml 10/12/24 20:32 Sodium Chloride 0.9% 10ml Flush Syringe IV 11/11/24 20:31 NEEDED PRN Maintain IV Site Sodium Chloride 10 ml 10/12/24 21:38 Sodium Chloride 0.9% 10ml Vial IV 11/11/24 21:37 NEEDED PRN to Dilute Lorazepam inj Sodium Chloride 50 ml 10/12/24 22:11 10/12/24 22:12 0.9 % Sodium Chloride 50 Ml Vial IV 10/12/24 22:12 50 ml ONCE ONE Administration Sodium Chloride 10 ml 10/12/24 22:11 10/12/24 22:13 Sodium Chloride 0.9% 10ml Syr (Rad Only) IV 11/11/24 22:10 10 ml NEEDED PRN Administration Maintain IV Site Tramadol HCl 50 mg 10/13/24 00:10 10/13/24 08:57 Tramadol 50mg Tablet PO 11/12/24 00:09 Not Given TID CORDELIA ORDERS Category Date Time Status CTA Chest [CT angio chest PE protocol] Stat Cat Scan 10/12/24 21:43 Completed XR chest portable Stat Exams 10/12/24 20:32 Completed CMP [Comprehensive Metabolic Panel] Stat Lab 10/12/24 20:22 Completed Complete Blood Count Auto Diff Stat Lab 10/12/24 20:22 Completed Full Resp Panel w/COVID ([facility]) Routine Lab 10/12/24 20:47 Completed HIV (1&2) Antibody Rapid Stat Lab 10/12/24 20:22 Completed Hep C Ab with Reflex to RNA Stat Lab 10/12/24 20:22 Received Lactic Acid Stat Lab 10/12/24 20:47 Completed Magnesium Stat Lab 10/12/24 20:47 Completed NT Pro Brain Natriuretic Pep. Stat Lab 10/12/24 20:47 Completed Troponin I Q3H Lab 10/13/24 00:15 Completed Troponin I Q3H Lab 10/13/24 02:55 Completed Troponin I Stat Lab 10/12/24 20:47 Completed Blood Culture Stat Micro 10/12/24 20:47 Received Venous Blood Gas Routine RT 10/12/24 20:41 Completed ECG Data Tracing #1: I reviewed this ECG and interpreted as documented below: (Sinus tachycardia [address] depressions in V3 through V6 with no reciprocal elevations. Intermittent PVCs. Right axis deviation. DE 171, QRS 104, QTc 415) Medical Decision Narrative: 73-year-old female history of hypertension, hyperlipidemia, COPD 2 liters nasal cannula, CAD, CHF, paroxysmal A-fib on Eliquis presenting with shortness of breath. Patient was feeling fine and just before arrival, became acutely short of breath. No chest pain, nausea, vomiting, syncope, lower extremity edema, cough, fevers, chills, or any other concerns. Just severe respiratory distress. On arrival, patient tachypneic, tachycardic, increased work of breathing in moderate respiratory distress. Patient was given DuoNebs for almost no bilateral breath sounds, increased work of breathing. Placed on nonrebreather mask. Patient continued have increased work of breathing, so BiPAP was placed, patient given 3 more DuoNebs with BiPAP,resulting in improvement in respiratory rate as well as heart rate. Chest x-ray without acute intrathoracic abnormality. Patient also given Solu-Medrol. Continuing to have severe anxiety, patient states she is allergic to benzodiazepines as well as Benadryl. She was given 5 mg of Haldol prior to being told patient had restless leg syndrome. This worked temporarily. Shortly thereafter, stating her respiratory distress is getting worse, I feel patient and family are driving her anxiety in the setting of difficulty breathing, baseline severe anxiety, as well as restless leg syndrome having just gotten Haldol. Patient was given some dissociative ketamine, which helped significantly in terms of anxiety, respiratory rate, heart rate, oxygen saturation. Independent interpretation of workup largely nonconcerning. Nonactionable CBC, chemistry, VBG. CT PE was ordered out of abundance of concern, given no obvious explanation of patient's symptoms. This was negative on independent interpretation. EKG also independently interpreted and nonischemic. Troponins negative, BNP negative. Conversation had with family regarding comfort, I feel she does have the likelihood of tiring out, however I do not have a reason that she is in respiratory distress other than severe anxiety. Ultimately, opted out of intubation due to clinical concern for anxiety. Hospital medicine contacted and case was discussed, patient to be admitted for acute hypoxemic respiratory failure and respiratory distress as well as severe anxiety. Because patient high risk for clinical decompensation, deemed appropriate for inpatient admission. Results were relayed to patient who voiced understanding and patient was agreeable to inpatient admission and management. Patient was admitted to the hospital for further definitive management. [employer] Operator disclaimer Much of this encounter note is an electronic risk tech spoken language to printed text. Electronic risk tech of the spoken language may permit errors. Although I have reviewed the note, some errors may still exist. Critical Care <Joe Michelle MD - Last Filed: 10/13/24 15:27> Critical Care Time Critical Care Time: Yes (resp) Attestation: On 10/12/24, the high probability of a clinically significant, sudden or life threatening deterioration of the following system(s) required my full and direct attention, intervention and personal management. The time I documented below is in addition to time spent performing reported procedures but includes the following listed in this critical care notation. Total Time Total Critical Care Time: 120
[2024-10-12 21:15] LABS: HIV (1&2) Antibody Rapid NONREACTIVE (NONREACTIVE)
--- NOTE | 2024-10-12 21:16 | ECG_ITS ---
APPROVED REPORT Exam: Resting ECG HR:116 bpm ECG Measurements Heart Rate 116 AXES NJ 171 P 82 QRSd 104 QRS 95 QT 346 T 71 QTc 415 Conclusion SINUS TACHYCARDIA BORDERLINE RIGHT AXIS DEVIATION [QRS AXIS > 90] ST DEVIATION AND MODERATE T-WAVE ABNORMALITY, CONSIDER ANTEROLATERAL ISCHEMIA [-0.1+ mV T-WAVE IN V3-V6] ABNORMAL ECG Electronically signed by : FELIX ALVARADO, 10/16/2024 07:42:34
[2024-10-12 21:21] LABS: NT Pro Brain Natriuretic Pep. 709 pg/mL (0-125)
[2024-10-12 21:24] LABS: Troponin I < 0.01 ng/ml (0.00-0.034)
[2024-10-12] MEDS: POTASSIUM CHLORIDE 20MEQ TAB 60 MEQ PO (21:31)
[2024-10-12] MEDS: MAGNESIUM SULFATE IN WATER 2 GM/50 ML PIGGYBACK IV ×2 (21:31→22:37)
[2024-10-12] MEDS: ONDANSETRON 4MG/2ML VIAL 4 MG IV (21:39)
--- NOTE | 2024-10-12 21:43 | CT_ITS ---
PROCEDURE INFORMATION: Exam: CTA Chest With Contrast Exam date and time: 10/12/2024 9:55 PM Age: 73 years old Clinical indication: Shortness of breath and other: Resp distress; Additional info: New onset SOA, normal co2, resp distress TECHNIQUE: Imaging protocol: Computed tomographic angiography of the chest with contrast. Exam focused on the arteries. 3D rendering (Not supervised by radiologist): MIP and/or 3D reconstructed images were created by the technologist. Radiation optimization: All CT scans at this facility use at least one of these dose optimization techniques: automated exposure control; mA and/or kV adjustment per patient size (includes targeted exams where dose is matched to clinical indication); or iterative reconstruction. Contrast material: ISOUVE 370; Contrast volume: 70 ml; Contrast route: INTRAVENOUS (IV); COMPARISON: 1. CT ANGIO CHEST PE PROTOCOL 07/10/2022 9:[address] LUNG SCREENING 07/22/2024 12:[address] LUNG SCREENING 01/18/2024 10:20 AM FINDINGS: Pulmonary arteries: There is fair opacification of the pulmonary arterial tree. No central pulmonary arterial filling defect is seen. Aorta: Unremarkable. No aortic aneurysm. No aortic dissection. Other arteries: Subsegmental vessels are not well evaluated due to technical factors. Lungs: The calcified granulomas noted in the left upper lobe. There are some consolidative changes in the right middle lobe which could reflect early or resolving infection. Pleural spaces: Unremarkable. No pneumothorax. No pleural effusion. Heart: Unremarkable. No cardiomegaly. No pericardial effusion. Coronary arteries: There is moderate coronary atherosclerotic disease/calcification although evaluation is limited secondary to the non gated nature of the study. Lymph nodes: Unremarkable. No enlarged lymph nodes. Diaphragm: There is a small right Bochdalek hernia. Gallbladder and biliary ducts: There is cholelithiasis within an otherwise normal gallbladder. Pancreas: There is fatty replacement of the pancreas. Kidneys: Punctate nonobstructing left midpole intrarenal calculus. Intestine: There are scattered colonic diverticula. Bones/joints: There is cement material within the L2 vertebral body consistent with prior augmentation. The patient is status post median sternotomy. Soft tissues: Unremarkable. Other findings: Motion artifact mildly limits evaluation. IMPRESSION: 1. No central pulmonary arterial filling defect is seen. Subsegmental vessels are not well evaluated due to motion and technical factors. 2. There are some consolidative changes in the right middle lobe which could reflect early or resolving infection.
[2024-10-12] MEDS: HALOPERIDOL LACTATE 5 MG/ML VIAL 2.5 MG IV ×2 (21:45→22:24)
[2024-10-12] MEDS: IOPAMIDOL-370 (76%);100ML BOTTLE 70 ML IV (22:12)
[2024-10-12] MEDS: 0.9 % SODIUM CHLORIDE 50 ML VIAL IV (22:12)
[2024-10-12] MEDS: SODIUM CHLORIDE 0.9% 10ML SYR (RAD ONLY) 10 ML IV (22:13)
[2024-10-12] MEDS: KETAMINE 50MG/1ML SYRINGE 20 MG IV (22:37)
[2024-10-12] MEDS: ROPINIROLE 1MG TABLET 1 MG PO (22:56)
[2024-10-12] MEDS: LEVALBUTEROL 1.25MG/3ML NEB 3.75 MG IH (23:02)
[2024-10-12] MEDS: MORPHINE 2MG/ML SYRINGE 2 MG IV (23:13)
[2024-10-13] VITALS (16 sets, daily range): BP systolic 134–154; BP diastolic 88–108; PULSE 68–100; RESP 14–21; TEMP 36.4–36.8; O2SAT 92–97; BMI 25.7
[2024-10-13] MEDS: MORPHINE 2MG/ML SYRINGE 2 MG IV (00:05)
[2024-10-13] MEDS: TRAMADOL 50MG TABLET 50 MG PO (00:12)
--- NOTE | 2024-10-13 00:43 | P.HP_ITS ---
<Statement entered by Shahid Nunez MD - 10/17/24 13:12> I personally examined the patient with the following modifications to the plan of care. Patient presented with COPD/asthma exacerbation. Improved with Duonebs and steroids, and able to wean to 3L NC. History of Present Illness *Admission Date: 10/13/24 *Reason for visit:: Sudden attack of hypoxia/anxiety *History of present illness: This 73-year-old female, who is a 55-year smoker. Was at home today doing well when suddenly within an hour got to where she was unable to breathe. She was brought to the emergency room and fairly significant distress. Respiratory rates in the 40s saturations in the 80s despite oxygen. Multiple things were used including BiPAP, medication which she used to include Haldol, morphine. To try to calm the patient.. These did not appear to work well but once the patient was on the floor and received a second dose of morphine began to improve. She also had received multiple nebulizer treatments.. While in the room the nurse noted that the patient finally coughed and sounded very wet in her upper airway, and then actually improved and her breathing become less labored after that Unsure if it was a combination of medications and DuoNebs, that cleared the s ecretions that had the patient feeling better also treating her anxiety. Or that she just had a mucous plug and it finally moved after all the treatment. Oxygen saturation is back to her baseline. The patient's history consist of large amounts of pain issues that are chronic., I talked to the patient she said she had quit her tramadol a week ago. She said she stopped it because it was not working. She said she only had the 1 prescription. She only had 1 prescription in the end of April and 1 in August. Question whether or not if she has been taking on a regular basis that this was tramadol withdrawals?? 1 source that he can take as little as 10 days depending upon your health. Patient is now much more comfortable in the room, still on oxygen. Patient still reports feeling short of breath, family in the room. [facility] Disclaimer: The information contained in this section may have been updated after the patient was seen, as this information can be updated by other users. Medical History (Updated 10/13/24 @ 02:04 by Franky Karen, BOOK SALESM[employer]) Thoracic compression fracture Former smoker Fatigue Angina pectoris Gastroenteritis COVID-19 COPD exacerbation Acute costochondritis COPD exacerbation COPD with acute exacerbation Restless leg syndrome Enterocolitis Peripheral eosinophilia Severe persistent asthma Stopped smoking with greater than 30 pack year history Centrilobular emphysema Asthma exacerbation Pneumonia Eosinophilia (Unknown) Allergic rhinitis Dyspnea on exertion Encounter for screening for malignant neoplasm of lung in current smoker with 30 pack year history or greater Asthma History of smoking 30 or more pack years Acute respiratory failure with hypoxia COPD exacerbation Atrial fibrillation Anxiety Depression COPD (chronic obstructive pulmonary disease) SOB (shortness of breath) COPD (chronic obstructive pulmonary disease) Surgical History (Updated 10/13/24 @ 02:00 by Franky Jones APRN) Hx of CABG Status post ablation of atrial fibrillation History of colon resection History of bilateral knee replacement H/O: hysterectomy Family History Other No significant family history Social History (Updated 10/13/24 @ 00:01 by Maria T Stratton RN) Smoking Status: Former smoker years smoked: 56 how long ago did patient quit smoking: july 2022 quit status: quit date established second hand exposure: No alcohol intake: never substance use type: denies use current occupational status: retired and other Travel in the last 8 weeks: None household members: spouse and children housing: house lives independently: No marital status: education level: college current occupational exposures/hazards: No caffeine: Yes Other Medical History Have you received the Flu Vaccine for this season: Yes Have you received the Pneumonia Vaccine: Yes Review of Systems Review of Systems Review of systems:: pertinent systems reviewed and negative unless documented below Constitutional Constitutional: Reports as per HPI Comments: When patient first examined in the emergency room was in severe respiratory di stress,. also noting that she was given Haldol which caused her restless legs to become worse. But with medications multiple breathing treatments patient was moved to the room on the second floor. And she is 80% better now Eyes Eyes: Reports as per HPI ENT Ears, Nose, Mouth, and Throat: Reports as per HPI *Cardiovascular Cardiovascular: Reports as per HPI and Reports dyspnea Comments: Tachycardia history of A-fib *Respiratory Respiratory: Reports as per HPI, Reports chest congestion, Reports dyspnea and Reports wheezing *Gastrointestinal Gastrointestinal: Reports as per HPI *Genitourinary Genitourinary: Reports as per HPI *Musculoskeletal Musculoskeletal: Reports as per HPI Integumentary/Breasts Skin/Breast: Reports as per HPI *Neurologic Neurologic: Reports as per HPI Psychiatric Psychiatric: Reports as per HPI Endocrine Endocrine: Reports as per HPI Hematologic/Lymphatic Hematologic/Lymphatic: Reports as per HPI Allergic/Immunologic Allergic/Immunologic: Reports as per HPI and Reports wheezing Meds Home Medications and Allergies Home Medications ?Medication ?Instructions ?Recorded ?Confirmed ?Type albuterol sulfate 90 mcg/actuation 2 inh inhalation Q4-6H Shortness 10/12/24 10/12/24 History aerosol inhaler of breath apixaban 5 mg tablet (Eliquis) 5 mg PO BID 10/12/24 10/12/24 History bisoprolol fumarate 5 mg tablet 5 mg PO DAILY 10/12/24 10/12/24 History escitalopram oxalate 20 mg tablet 20 mg PO DAILY 10/12/24 10/12/24 History famotidine 20 mg tablet 20 mg PO DAILY 10/12/24 10/12/24 History montelukast 10 mg tablet 10 mg PO DAILY 10/12/24 10/12/24 History ropinirole 1 mg tablet 1 mg PO HS 10/12/24 10/12/24 History temazepam 15 mg capsule 15 mg PO HS 10/12/24 10/12/24 History tramadol 50 mg tablet 50 mg PO BID 10/12/24 10/12/24 History trazodone 50 mg tablet 50 mg PO HS 10/12/24 10/12/24 History vibegron 75 mg tablet (Gemtesa) 75 mg PO DAILY 10/12/24 10/12/24 History New Prescriptions to Start Prescriptions: Allergies Allergy/AdvReac Type Severity Reaction Status Date / Time codeine Allergy Mild Gastrointestinal Verified 10/12/24 22:19 Upset diphenhydramine (From Allergy Mild Flushing Verified 10/12/24 22:19 Benadryl) Penicillins Allergy Mild Hives Verified 10/12/24 22:19 isosorbide AdvReac Intermediate Severe CHENEY Verified 06/24/24 10:58 diazepam (From Valium) AdvReac Mild Agitated Verified 06/24/24 10:58 Exam Data for Last 24 hours Vital signs and Labs for Last 24 Hours: Temp Pulse Resp BP Pulse Ox O2 Del Method O2 Flow Rate 98.3 F 113 H 32 H 159/101 H 94 L Vapotherm 35 10/13/24 00:00 10/12/24 23:30 10/12/24 23:16 10/12/24 23:16 10/12/24 22:15 10/12/24 23:16 10/12/24 23:16 FiO2 50 10/12/24 23:03 Laboratory Results - last 24 hr 10/12/24 20:22: WBC 11.2 H, RBC 5.16, Hgb 16.0, Hct 47.3 H, MCV 91.8, MCH 31.1, MCHC 33.8, RDW 14.2, Plt Count 362, MPV 7.0 L, Neut % (Auto) 70.1, Lymph % (Auto) 23.1, Millard % (Auto) 6.2, Eos % (Auto) 0.0 L, Baso % (Auto) 0.5, Neut # (Auto) 7.9 H, Lymph # (Auto) 2.6, Millard # (Auto) 0.7, Eos # (Auto) 0.0, Baso # (Auto) 0.1, Sodium 141, Potassium 3.4 L, Chloride 111 H, Carbon Dioxide 24, Anion Gap 9.4, BUN 6 L, Creatinine 0.50 L, Estimated Creat Clear 55, Estimated GFR 121, Est GFR ( Amer) 147, Glucose 115 H, Calcium 7.8 L, Total Bilirubin 0.9, AST 27, ALT 14, Alkaline Phosphatase 62, Total Protein 6.4, Albumin 3.8, Globulin 2.6, Albumin/Globulin Ratio 1.5, HIV 1&2 Antibody Rapid Nonreactive 10/12/24 20:41: VBG pH 7.32, VBG pCO2 49.4, VBG pO2 68.1 H, VBG HCO3 24.9, VBG Total CO2 26.5, VBG O2 Saturation 93.4 H, VBG Base Excess -1.1, VBG Lactic Acid 2.0 10/12/24 20:47: Lactate 1.0, Magnesium 1.8, Troponin I < 0.01, NT-Pro-B Natriuret Pep 709 H, Chlamy pneumoniae PCR Not detected, Adenovirus (PCR) Not detected, B. pertussis DNA (PCR) Not detected, Coronavirus OC43 (PCR) Not detected, Coronavirus HKU1 (PCR) Not detected, Coronavirus 229E (PCR) Not detected, SARS-CoV-2 (PCR) Not detected, Coronavirus NL63 (PCR) Not detected, Human Metapneumovir PCR Not detected, Influenza A (H1) PCR Not detected, Influ A (H1N1/09) PCR Not detected, Influenza A (H3) PCR Not detected, Influenza Type A (PCR) Not detected, Influenza Type B (PCR) Not detected, M. pneumoniae (PCR) Not detected, Parainfluenza 1 (PCR) Not detected, Parainfluenza 2 (PCR) Not detected, Parainfluenza 3 (PCR) Not detected, Parainfluenza 4 (PCR) Not detected, RSV (PCR) Not detected, Entero/Rhino (PCR) Not detected I & O for Last 24 hours: Intake & Output 10/10/24 10/11/24 10/12/24 10/13/24 05:59 05:59 05:59 05:59 Output Total 0 / 0 Balance 0 / 0 Weight 150 lb Radiology Reports for the Last 24 Hours: CT scan of the rt lungs show 1 small area of infiltrate, but the rest is clear does not give a reason for why the patient is feeling short of breath. Trach and bronchus was examined could not see anything that would indicate a mucous plug. Constitutional Constitutional: severe distress, obese and chronically ill appearing *Routine HEENT Exam Head: Present normocephalic and atraumatic Eye: Present EOMI and PERRL ENT: Present mucous membranes dry, oropharynx clear and external ear normal Comments: Looks older than stated age *Routine Neck Exam Neck: Present supple and full ROM Comments: Auscultation of the throat gave sounds of clear airflow without restriction Routine Chest/Breast/Axilla Exam Comments: No tenderness was found throughout the chest wall *Routine Respiratory Exam Respiratory: Present accessory muscle use, decreased breath sounds, prolonged expiratory phase, rhonchi, wheezes, distant breath sounds and diminished air movement Comments: Patient was in respiratory distress with rate between 30-40 most of the time in the emergency room now has improved to being right around 30. Lung sounds remain equal bilaterally with slight crackles, has received multiple breathing treatments so there is no wheezing at this time *Routine Cardiovascular Exam Cardiovascular: Present Normal S1, Normal S2 and tachycardia (Rate in the 130s hard to auscultate) Comments: No significant murmurs heard *Routine Abdominal Exam Abdominal: Present soft, normoactive bowel sounds and obese *Routine Rectal Exam Rectal:: deferred *Routine Genitalia Exam Genitalia:: deferred *Routine Extremities Exam Extremities: Present full ROM and normal capillary refill Routine Back/Spine/Pelvis Exam Back/Spine: Present full ROM Comments: Patient has a long history of chronic back pain. But moves very well able to stand walk sit *Routine Skin Exam Skin: Present intact, warm and normal turgor Comments: Skin color were quite ashen when she was in the emergency room but now has returned to more of a pink *Routine Neurological Exam Neurological: Present alert Comments: Better now alert oriented able to speak but during the panic attack basically was too busy trying to breathe Routine Psychiatric Exam Psychiatric: Present cooperative Comments: 1 in the emergency room patient was in such distress hard to evaluate psychiatric. Now that she is on the floor she is able to answer my questions talks to me. States she still not able to breathe. But finding no significant psychiatric issues H&P: Result Impressions 1. Respiratory distress of unknown cause, 2. Tachycardia 3. Exacerbation of COPD. Imaging and Cardiology CT scan - chest: Status: image reviewed by me Additional comments: Right middle lobe show some consolidation early infection versus resolving, for [id number] smoker her lungs actually look pretty good Assessment and Plan *Assessment and plan (1) Acute hypoxemic respiratory failure: Status: Acute Category: Medical Code(s): J96.01 - Acute respiratory failure with hypoxia (2) Atrial fibrillation: Status: Acute Qualifiers: Atrial fibrillation type: persistent (not longstanding) Qualified Code(s): I48.19 - Other persistent atrial fibrillation Category: Medical Code(s): I48.91 - Unspecified atrial fibrillation (3) Dyspnea on exertion: Status: Chronic Category: Medical Code(s): R06.09 - Other forms of dyspnea (4) History of smoking 30 or more pack years: Status: Chronic Category: Social Hx Code(s): Z87.891 - Personal history of nicotine dependence (5) HTN (hypertension): Status: Chronic Qualifiers: Hypertension type: primary hypertension Qualified Code(s): I10 - Essential (primary) hypertension Category: Medical Code(s): I10 - Essential (primary) hypertension (6) Restless leg syndrome, uncontrolled: Status: Acute Category: Medical Code(s): G25.81 - Restless legs syndrome (7) Anxiety disorder: Status: Acute Qualifiers: Anxiety disorder type: unspecified anxiety disorder Qualified Code(s): F41.9 - Anxiety disorder, unspecified Category: Medical Code(s): F41.9 - Anxiety disorder, unspecified Plan 1. For respiratory failure with acute hypoxemia, patient was treated in the emergency room with multiple nebulizers. Tried on BiPAP, tried on different oxygen delivery mechanisms.. Patient also given Haldol, morphine,, . There has been some success after she was moved up to the floor able to keep her off of the BiPAP keeping her on the nasal cannul /. pulse air. Patient was once again given another dose of morphine.. Patient did have 1 prescription for Ultram she said she did not take the whole thing as it was not helping her chronic pain.. But had been on it for 2 weeks or more and decided to stop taking it. Question whether this was some type of withdrawal from the Ultram/tramadol. Patient is improved but says she still feels short of breath at the present time in her hospital room. But she is a able to talk in full sentences and does not appear to be distress and the color of her skin has improved immensely 2. Restless leg syndrome. Patient has medication for this but was given Haldol in the ER to try to calm her which made her restless legs even worse, presently has returned to normal 3. Chronic atrial fibs with tachycardia during this attack heart rate is now down to right around 100 bpm. 4. Smoker, greater than 55 years of smoking., Family indicated to me that patient is still continuing to smoke daily. Plan: Will also have cardiology and pulmonary consult, check medications to see if any of these are causing any type of anxiety problem. Will also restart tramadol give it 3 times a day while she is here if this was the cause by coming off the tramadol this should help her get back to baseline.
[2024-10-13 00:48] LABS: Troponin I 0.01 ng/ml (0.00-0.034)
[2024-10-13] MEDS: FUROSEMIDE 20 MG/2 ML VIAL IV (01:05)
[2024-10-13] MEDS: guaiFENesin 600 MG TAB.ER.12H PO ×2 (01:25→08:53)
[2024-10-13 03:22] LABS: Troponin I 0.02 ng/ml (0.00-0.034)
[2024-10-13] MEDS: LEVALBUTEROL 1.25MG/3ML NEB 1.25 MG IH (06:29)
[2024-10-13 06:50] LABS: Alanine Aminotransferase 18 U/L (12-78); Albumin Level 4.2 g/dl (3.5-5.0); Albumin/Globulin Ratio 1.4 (1.1-1.8); Alkaline Phosphatase 72 U/L (38-126); Anion Gap 13.5 mEq/L (5-15); Aspartate Amino Transferase 34 U/L (14-36); Bilirubin,Total 0.9 mg/dl (0.2-1.3); Blood Urea Nitrogen 9 mg/dl (7-17); Carbon Dioxide 23 mmol/L (22.0-30.0); Chloride 108 mmol/L (98-107); Creatinine Clearance Estimated 55 mL/min (50-200); Estimated Glomerular Filt Rate 98 ml/min (>60); GFR (African American) 119 ML/MIN (>60); Magnesium 2.4 mg/dl (1.6-2.3); Potassium 4.5 mmoL/L (3.5-5.1); Sodium 140 mmol/L (136-145); Total Protein,Serum 7.2 g/dl (6.3-8.2)
[2024-10-13 06:51] LABS: Calcium 7.9 mg/dl (8.4-10.2); Glucose 124 mg/dl (74-100)
[2024-10-13 07:53] LABS: Basophils % 0.2 % (0.1-2.0); Eosinophils % 0.1 % (0.1-12.0); Hematocrit 45.7 % (37.0-47.0); Hemoglobin 15.9 g/dL (12.2-16.2); Lymphocytes # 0.6 K/mm3 (0.7-4.5); Mean Corpuscular HGB Conc 34.7 g/dL (31.8-35.4); Mean Corpuscular Hemoglobin 31.5 pg (27.0-31.2); Mean Corpuscular Volume 90.8 fl (81-99); Mean Platelet Volume 7.5 fl (7.4-10.4); Monocytes # 0.4 K/mm3 (0.1-1.0); Monocytes % 3.7 % (1.7-9.3); Neutrophils # 8.7 K/mm3 (1.8-7.8); Platelet Count 347 K/mm3 (142-424); Red Blood Count 5.03 M/mm3 (4.20-5.40); Red Cell Distribution Width 14.4 % (11.5-17.5); White Blood Count 9.7 K/mm3 (4.8-10.8)
[2024-10-13 07:54] LABS: MANUAL DIFFERENTIAL MANUAL DIFFERENTIAL (MANUAL DIFF)
[2024-10-13 08:07] LABS: VBG Base Excess -1.1 mmol/L (-2.4-2.3); VBG HCO3 23.7 mmol/L (23-30); VBG Oxygen Saturation 99.2 % (50-70); VBG PCO2 39.4 mmol/L (35-51); VBG PO2 147.9 mmol/L (28-40)
[2024-10-13 08:09] LABS: Lactate Venous 2.2 mmol/L (0.4-2.0)
[2024-10-13 08:26] LABS: Lymphocytes % 9 % (10-50); Monocytes % 1 % (2-9); Neutrophils % 90 % (42-76); Total Cells Counted 100
[2024-10-13 08:27] LABS: Platelet Estimate Normal; RBC Morphology Normal
--- NOTE | 2024-10-13 08:27 | CA_ITS ---
APPROVED REPORT EXAM: Comprehensive 2D, Doppler, and color-flow Echocardiogram [employer] Manager: Aviva Simpson CRT Ht: 5 ft 4 in Wt: 150lbs BSA: 1.73 BP: 159/101 mmHg Indications: Atrial Fibrillation, ablation, CABG, anxiety, stenrs, eval HF 2D Dimensions LA Volume 25.90 mL LA Volume Index 14.60 mL/m2 (M/F) 16-34 M-Mode Dimensions RVDd 2.84 cm (0.9-2.6) LA Diam 3.66 cm (1.9-4.0) LVDd 4.78 cm (3.5-5.7) LVDs 3.46 cm (3.5-5.7) IVSd 1.34 cm (0.6-1.1) PWd 1.15 cm (0.6-1.1) EF (Teich) 53.50% FS 27.60% EDV (Teich) 106.50 mL TAPSE 2.56 (<1.7) ESV (Teich) 49.50 mL LV Diastology E Decel Time 150 (160-240 msec) E/A Ratio 1.21 MED A' 8.10 cm/s LAT A' 15.00 cm/s Aortic Valve AO Peak GR. 6.90 mmHg Mitral Valve MV E Max Radu. 76.0 (40-130 cm/s) MV A Velocity 63.0 (40-130 cm/s) E/A Ratio 1.21 MV PHT 44.0 ms Pulmonary Valve PV Peak Velocity 94.0 (50-150 cm/s) Tricuspid Valve TR P. Velocity 183.00 cm/s RAP Estimate 10.00 mmHg RVSP 23.50 mmHg Left Ventricle The left ventricle is normal size. The left ventricular systolic function is mildly to moderately reduced. There is normal left ventricular wall thickness. There is severe hypokinesis of the septal and anteroseptal LV enamorado. Diastolic function is indeterminate. LVEF is 40%. Right Ventricle The right ventricle is normal size. The right ventricular systolic function is normal. Atria Left atrium is mildly dilated. The right atrium is mildly dilated. There is no Doppler evidence of interatrial shunt. Aortic Valve The aortic valve is mildly thickened. Mild aortic regurgitation. There is no aortic valvular stenosis. Mitral Valve The mitral valve leaflets are mildly thickened. No evidence of mitral valve stenosis. Mild mitral regurgitation. Tricuspid Valve The tricuspid valve leaflets are thin and pliable. Trace tricuspid regurgitation. There is insufficient TR jet to estimate RVSP. Pulmonic Valve The pulmonary valve is normal in structure. Trace pulmonic regurgitation. Great Vessels The aortic root is normal in size. The ascending aorta is not well-visualized. IVC is normal in size and collapses >50% with inspiration. Pericardium There is no pericardial effusion. Other Information Study Quality: Fair Conclusion Mild to moderate reduction in LV systolic function (LVEF 40%). Severe hypokinesis of the septal and anteroseptal LV enamorado. Normal RV size and function.. Mild biatrial dilation. Mild AI, mild MR. Electronically signed by : Mary Chrsitiansen MD 10/13/2024 23:00:56
--- NOTE | 2024-10-13 08:44 | HMH.PHAINT1 ---
Pharmacy Intervention Comments: HOME MEDICATIONS VERIFIED VIA OUTPATIENT PHARMACY AND PATIENT INTERVIEW
[2024-10-13] MEDS: FAMOTIDINE 20MG TABLET 20 MG PO (08:53)
[2024-10-13] MEDS: BISOPROLOL 5MG TABLET 5 MG PO (08:53)
[2024-10-13] MEDS: CITALOPRAM 40MG TABLET 40 MG PO (08:53)
[2024-10-13] MEDS: APIXABAN 5MG TABLET 5 MG PO ×2 (08:53→20:13)
[2024-10-13] MEDS: AZITHROMYCIN 250MG TABLET 500 MG PO (08:54)
[2024-10-13] MEDS: SODIUM CHLORIDE 3% 15ML NEB 3 ML IH (09:38)
--- NOTE | 2024-10-13 09:46 | P.CONS_ITS ---
History of Present Illness History of present illness: Ms. Andres is a 73-year-old female 32-fllz-pvad smoking history asthma COPD overlap syndrome eosinophilia allergic rhinitis presented to the ER with sudden onset worsening shortness of breath and pulmonary was called for further evaluation and management. She at baseline not using any oxygen supplementation. Patient admits gradually worsening respiratory status for the last 4 to 5 days. Denies any known sick contacts. Admits worsening cough and productive phlegm, greenish PFSH PFSH Disclaimer: The information contained in this section may have been updated after the patient was seen, as this information can be updated by other users. Medical History (Updated 10/13/24 @ 02:04 by Franky Jones APRN) Thoracic compression fracture Former smoker Fatigue Angina pectoris Gastroenteritis COVID-19 COPD exacerbation Acute costochondritis COPD exacerbation COPD with acute exacerbation Restless leg syndrome Enterocolitis Peripheral eosinophilia Severe persistent asthma Stopped smoking with greater than 30 pack year history Centrilobular emphysema Asthma exacerbation Pneumonia Eosinophilia (Unknown) Allergic rhinitis Dyspnea on exertion Encounter for screening for malignant neoplasm of lung in current smoker with 30 pack year history or greater Asthma History of smoking 30 or more pack years Acute respiratory failure with hypoxia COPD exacerbation Atrial fibrillation Anxiety Depression COPD (chronic obstructive pulmonary disease) SOB (shortness of breath) COPD (chronic obstructive pulmonary disease) Surgical History (Updated 10/13/24 @ 02:00 by Franky Jones APRN) Hx of CABG Status post ablation of atrial fibrillation History of colon resection History of bilateral knee replacement H/O: hysterectomy Family History Other No significant family history Social History (Updated 10/13/24 @ 00:01 by Maria T Stratton RN) Smoking Status: Former smoker years smoked: 55 how long ago did patient quit smoking: july 2022 quit status: quit date established second hand exposure: No alcohol intake: never substance use type: denies use current occupational status: retired and other Travel in the last 8 weeks: None household members: spouse and children housing: house lives independently: No marital status: education level: college current occupational exposures/hazards: No caffeine: Yes Review of Systems Constitutional Constitutional: Reports anorexia, Reports body ache(s) and Reports fatigue Eyes Eyes: Denies eye discharge, Denies dry eyes, Denies irritation and Denies itchy eyes ENT Ears, Nose, Mouth, and Throat: Denies epistaxis, Denies facial pain, Denies lip swelling and Denies throat swelling *Cardiovascular Cardiovascular: Reports dyspnea and Reports dyspnea on exertion *Respiratory Respiratory: Reports change in phlegm color, Reports chest congestion, Reports cough, Reports dyspnea, Reports dyspnea on exertion, Reports excessive phlegm production and Reports wheezing *Gastrointestinal Gastrointestinal: Denies abdominal pain, Denies belching and Denies cramping *Musculoskeletal Musculoskeletal: Reports back pain, Reports myalgias and Reports other (No small joint swelling or Pain) *Neurologic Neurologic: Reports as per HPI Psychiatric Psychiatric: Denies homicidal ideation and Denies suicidal ideation Endocrine Endocrine: Reports fatigue and Denies heat intolerance Hematologic/Lymphatic Hematologic/Lymphatic: Denies easy bleeding and Denies lymphadenopathy Allergic/Immunologic Allergic/Immunologic: Denies itchy eyes, Denies lip swelling, Denies throat swelling and Reports wheezing Pulmonology Exam Inpatient Vital signs and Labs for Last 24 Hours: Temp Pulse Resp BP Pulse Ox O2 Del Method O2 Flow Rate 98.2 F 84 18 141/95 H 93 L Nasal Cannula 3 10/13/24 08:00 10/13/24 09:40 10/13/24 09:40 10/13/24 08:00 10/13/24 09:35 10/13/24 09:35 10/13/24 09:35 FiO2 40 10/13/24 08:00 Laboratory Results - last 24 hr 10/12/24 20:22: WBC 11.2 H, RBC 5.16, Hgb 16.0, Hct 47.3 H, MCV 91.8, MCH 31.1, MCHC 33.8, RDW 14.2, Plt Count 362, MPV 7.0 L, Neut % (Auto) 70.1, Lymph % (Auto) 23.1, [place] % (Auto) 6.2, Eos % (Auto) 0.0 L, Baso % (Auto) 0.5, Neut # (Auto) 7.9 H, Lymph # (Auto) 2.6, [place] # (Auto) 0.7, Eos # (Auto) 0.0, Baso # (Auto) 0.1, Sodium 141, Potassium 3.4 L, Chloride 111 H, Carbon Dioxide 24, Anion Gap 9.4, BUN 6 L, Creatinine 0.50 L, Estimated Creat Clear 55, Estimated GFR 121, Est GFR ( Amer) 147, Glucose 115 H, Calcium 7.8 L, Total Bilirubin 0.9, AST 27, ALT 14, Alkaline Phosphatase 62, Total Protein 6.4, Albumin 3.8, Globulin 2.6, Albumin/Globulin Ratio 1.5, HIV 1&2 Antibody Rapid Nonreactive 10/12/24 20:41: VBG pH 7.32, VBG pCO2 49.4, VBG pO2 68.1 H, VBG HCO3 24.9, VBG Total CO2 26.5, VBG O2 Saturation 93.4 H, VBG Base Excess -1.1, VBG Lactic Acid 2.0 10/12/24 20:47: Lactate 1.0, Magnesium 1.8, Troponin I < 0.01, NT-Pro-B Natriuret Pep 709 H, Chlamy pneumoniae PCR Not detected, Adenovirus (PCR) Not detected, B. pertussis DNA (PCR) Not detected, Coronavirus OC43 (PCR) Not detected, Coronavirus HKU1 (PCR) Not detected, Coronavirus 229E (PCR) Not detected, SARS-CoV-2 (PCR) Not detected, Coronavirus NL63 (PCR) Not detected, Human Metapneumovir PCR Not detected, Influenza A (H1) PCR Not detected, Influ A (H1N1/09) PCR Not detected, Influenza A (H3) PCR Not detected, Influenza Type A (PCR) Not detected, Influenza Type B (PCR) Not detected, M. pneumoniae (PCR) Not detected, Parainfluenza 1 (PCR) Not detected, Parainfluenza 2 (PCR) Not detected, Parainfluenza 3 (PCR) Not detected, Parainfluenza 4 (PCR) Not detected, RSV (PCR) Not detected, Entero/Rhino (PCR) Not detected 10/13/24 00:15: Troponin I 0.01 10/13/24 02:55: Troponin I 0.02 10/13/24 05:20: WBC 9.7, RBC 5.03, Hgb 15.9, Hct 45.7, MCV 90.8, MCH 31.5 H, MCHC 34.7, RDW 14.4, Plt Count 347, MPV 7.5, Neut % (Auto) 90.0 H, Lymph % (Auto) 6.0 L, [place] % (Auto) 3.7, Eos % (Auto) 0.1, Baso % (Auto) 0.2, Neut # (Auto) 8.7 H, Lymph # (Auto) 0.6 L, [place] # (Auto) 0.4, Eos # (Auto) 0.0, Baso # (Auto) 0.0, Total Counted 100, Neutrophils % (Manual) 90 H, Lymphocytes % (Manual) 9 L, Monocytes % (Manual) 1 L, Platelet Estimate Normal, RBC Morphology Normal, Sodium 140, Potassium 4.5 D, Chloride 108 H, Carbon Dioxide 23, Anion Gap 13.5, BUN 9 D, Creatinine 0.60, Estimated Creat Clear 55, Estimated GFR 98, Est GFR ( Amer) 119, Glucose 124 H, Calcium 7.9 L, Magnesium 2.4 H D, Total Bilirubin 0.9, AST 34 D, ALT 18 D, Alkaline Phosphatase 72, Total Protein 7.2, Albumin 4.2 D, Globulin 3.0, Albumin/Globulin Ratio 1.4 10/13/24 06:00: VBG pH 7.40, VBG pCO2 39.4, VBG pO2 147.9 H, VBG HCO3 23.7, VBG Total CO2 25.0, VBG O2 Saturation 99.2 H, VBG Base Excess -1.1, VBG Lactic Acid 2.2 H I & O for Labs for Last 24 Hours: Intake & Output 10/10/24 10/11/24 10/12/24 10/13/24 23:59 23:59 23:59 23:59 Intake Total 60 / 60 Output Total 0 / 0 1650 / 1650 Balance 0 / 0 -1590 / -1590 Weight 150 lb 150 lb 9.6 oz Constitutional: Present moderate distress Head: Present normocephalic and atraumatic ENT: Present normal exam, normal oropharynx and mucous membranes moist Neck: Present normal inspection and full ROM Respiratory: Present prolonged expiratory phase, respiratory distress and diminished air movement; Absent wheezes or able to speak in complete sentences Cardiac: Present S1/S2, Tachycardia and radial pulses present GI: Present soft and distention; Absent tenderness or guarding Rectal (female): Present deferred (female): Present deferred Skin: Present intact; Absent cyanosis or jaundice Neuro: Present alert, awake and oriented x 3 Extremities: Present normal inspection; Absent clubbing or cyanosis Psychiatric: Present normal affect and cooperative Meds Home Medications and Allergies Home Medications ?Medication ?Instructions ?Recorded ?Confirmed ?Type albuterol sulfate 90 mcg/actuation 2 inh inhalation Q4-6H PRN 10/12/24 10/13/24 History aerosol inhaler Shortness of breath apixaban 5 mg tablet (Eliquis) 5 mg PO BID 10/12/24 10/13/24 History bisoprolol fumarate 5 mg tablet 5 mg PO DAILY 10/12/24 10/13/24 History escitalopram oxalate 20 mg tablet 20 mg PO DAILY 10/12/24 10/13/24 History famotidine 20 mg tablet 20 mg PO BID 10/12/24 10/13/24 History montelukast 10 mg tablet 10 mg PO DAILY 10/12/24 10/13/24 History ropinirole 1 mg tablet 3 mg PO HS 10/12/24 10/13/24 History temazepam 15 mg capsule 15 mg PO HS 10/12/24 10/13/24 History trazodone 50 mg tablet 50 mg PO HS 10/12/24 10/13/24 History vibegron 75 mg tablet (Gemtesa) 75 mg PO DAILY 10/12/24 10/13/24 History benralizumab 30 mg/mL subcutaneous 30 mg SQ Q56D 10/13/24 10/13/24 History auto-injector (Fasenra Pen) budesonide 160 mcg-glycopyr 9 2 inh inhalation BID 10/13/24 10/13/24 History mcg-formot 4.8 mcg/actuation HFA inhaler (Breztri Aerosphere) evolocumab 140 mg/mL subcutaneous 140 mg SQ Q14D 10/13/24 10/13/24 History pen injector (Repatha SureClick) fluticasone propionate 50 2 spray intranasal DAILY 10/13/24 10/13/24 History mcg/actuation nasal spray,suspension New Prescriptions to Start Prescriptions: Allergies Allergy/AdvReac Type Severity Reaction Status Date / Time codeine Allergy Mild Gastrointestinal Verified 10/12/24 22:19 Upset diphenhydramine (From Allergy Mild Flushing Verified 10/12/24 22:19 Benadryl) Penicillins Allergy Mild Hives Verified 10/12/24 22:19 isosorbide AdvReac Intermediate Severe [place] Verified 06/24/24 10:58 diazepam (From Valium) AdvReac Mild Agitated Verified 06/24/24 10:58 Results Laboratory Findings 10/13/24 05:20 10/13/24 05:20 Abnormal lab findings: Abnormal Labs 10/12/24 10/12/24 10/12/24 20:22 20:41 20:47 WBC 11.2 H Hct 47.3 H MCH MPV 7.0 L Neut % (Auto) Lymph % (Auto) Eos % (Auto) 0.0 L Neut # (Auto) 7.9 H Lymph # (Auto) Neutrophils % (Manual) Lymphocytes % (Manual) Monocytes % (Manual) VBG pO2 68.1 H VBG O2 Saturation 93.4 H VBG Lactic Acid Potassium 3.4 L Chloride 111 H BUN 6 L Creatinine 0.50 L Glucose 115 H Calcium 7.8 L Magnesium NT-Pro-B Natriuret Pep 709 H 10/13/24 10/13/24 05:20 06:00 WBC Hct MCH 31.5 H MPV Neut % (Auto) 90.0 H Lymph % (Auto) 6.0 L Eos % (Auto) Neut # (Auto) 8.7 H Lymph # (Auto) 0.6 L Neutrophils % (Manual) 90 H Lymphocytes % (Manual) 9 L Monocytes % (Manual) 1 L VBG pO2 147.9 H VBG O2 Saturation 99.2 H VBG Lactic Acid 2.2 H Potassium Chloride 108 H BUN Creatinine Glucose 124 H Calcium 7.9 L Magnesium 2.4 H D NT-Pro-B Natriuret Pep Assessment and Plan *Assessment and plan (1) Acute hypoxemic respiratory failure: Status: Acute Category: Medical Code(s): J96.01 - Acute respiratory failure with hypoxia (2) Asthma exacerbation: Status: Chronic Qualifiers: Asthma severity: moderate Asthma persistence: persistent Qualified Code(s): J45.41 - Moderate persistent asthma with (acute) exacerbation Category: Medical Code(s): J45.901 - Unspecified asthma with (acute) exacerbation (3) Pneumonia: Status: Chronic Category: Medical Code(s): J18.9 - Pneumonia, unspecified organism Plan Ms. Andres is a 73-year-old female 21-cezf-xisp smoking history asthma COPD overlap syndrome eosinophilia allergic rhinitis presented to the ER with sudden onset worsening shortness of breath and pulmonary was called for further evaluation and management. She at baseline not using any oxygen supplementation. Patient admits gradually worsening respiratory status for the last 4 to 5 days. Denies any known sick contacts. Admits worsening cough and productive phlegm, greenish Febrile. Hemodynamically stable. Mild neutrophilic predominant leukocytosis. Blood gas upon admission did not show any evidence of hypoxic/hypercarbic respiratory failure. Comprehensive respiratory viral PCR panel negative. CT PE protocol suboptimal, no obvious segmental pulmonary embolism noted. Faint infiltrate in the right middle lobe. No other consolidative/airspace changes noted. Patient being managed for CAP and COPD exacerbation with ceftriaxone and azithromycin, nebulization therapies and steroids. Patient just received nebulization therapies but no significant wheezing noted on auscultation. New oxygen requirements. Plan: Continue oxygen supplementation maintain O2 saturation around 90% to maintain O2 saturation goal of 90% and above DuoNebs every 4 hours along with Pulmicort every 12 scheduled Continue ceftriaxone azithromycin Continue methylprednisolone 40 IV Q24 hrs Incentive spirometry and flutter valve next
[2024-10-13] MEDS: METHYLPREDNISOLONE SOD SUCC 40MG VIAL 40 MG IV (10:04)
[2024-10-13] MEDS: CEFTRIAXONE 1 GM 1 GM in 0.9 % SODIUM CHLORIDE 50 ML IV (10:04)
[2024-10-13] MEDS: IPRATROPIUM/ALBUTEROL 3 ML NEB IH ×4 (11:37→22:04)
[2024-10-13 12:08] LABS: Reflex Lactic Add Lactic Reflex
[2024-10-13 12:40] LABS: Lactic Acid Follow Up (RFLX 1) 0.9 mmol/L (0.7-2.1)
--- OUTSIDE RECORDS SUMMARY | 2024-10-13 13:24 | XMS_ITS | Encounter Summary ---
Author Organization [facility] Address [address] [place] [address] Care Team Providers Care Air Cargo Specialist Name Role Phone Michael Baez MD Primary Care Provider [phone] Acacia Scott BENZOL OPERATOR Unavailable [phone] Encounter Details Date Type Department Care Team (Late st Contact Info) Description 09/29/2024 3:30 PM EST Office Visit [facility] [place] [address], [address] [place] [address] Acacia Scott, BENZOL OPERATOR [address] [place] [address] Mixed hyperlipidemia (Primary Dx); Coronary artery disease involving [place] coronary artery of [place] heart without angina pectoris; PAF (paroxysmal atrial fibrillation) (CMS/HCC); Primary hypertension Social History Tobacco Use Types Packs/Day Years Used Date Smoking Tobacco: Former Cigarettes 2 63.1 0 11/26/1959 - 12/2022 Smokeless Tobacco: Never Tobacco Cessation:Counseling Given: Not Answered Alcohol Use Standard Drinks/Week Comments Never 0 (1 standard drink = 0.6 oz pur e alcohol) PHQ-2 Answer Date Recorded Patient Health Questionnaire-2 Score 0 03/31/2024 CAGE ASSESSMENT Answer Date Recorded Cage unable to access Not on file 08/17/2022 Cage max number of drinks Not on file 2021 Cage Beverages a week Not on file 08/17/2022 Have you ever felt you should CUT down on your d rinking? 0 08/17/2022 Have you been ANNOYED by people criticizing your drinking? 0 08/17/2022 Have you felt GUILTY about your drinking? 0 08/17/2022 Have you had a drink first t pippa in the morning ([employer]IST) to 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 0 08/17/2022 CAGE Questionnaire Score 0 022 Comments No Sex and Gender Information Value Date Recorded Sex Assigned at Not on file Legal Sex Female 7:36 PM EDT Gender Identity Not on file Sexual Orientation Not on file documented as of this encounter Last Filed Vital Signs Vital Sign Reading Time Taken Comments Blood Pressure 138/85 09/29/2024 2:55 PM EST Pulse 67 09/29/2024 2:55 PM EST Temperature - - Respiratory Rate - - Oxygen Saturation 97% 09/29/2024 2:55 PM EST Inhaled Oxygen Concentration - - Weight 69 kg (152 lb 1.9 oz) 09/29/2024 2:55 PM EST Height 162.6 cm (5' 4 ) 09/29/2024 2:55 PM EST Body Mass Index 26.11 09/29/2024 2:55 PM EST documented in this encounter Miscellaneous Notes * Progress Notes - Acacia Scott APRN - 09/29/2024 3:30 PM EST Images from the original note were not included. Supriya Andres is a 73 y.o. female with CAD s/p CABG, stent to LAD with AMY in May 2019 and as recent as 04/30/2020 she was found to have ISRS of the distal portion of the mid LAD with a mildly reduced EF of 45-50% (both done by Dr. Abdalla at [facility]). She also has a h/o AF, CORNELIA, HTN, and hyperlipidemia. She has been followed by Dr. Mar for the AF and underwent PVI on October 29, 2019. Today: Here for routine follow-up. Had c/o leg pain so repatha was held since last visit but no improvement in her symptoms so my PharmD encouraged her to resume it. She has lost about 20 lbs due to decreased appetite from severe hip pain. No formal exercise due to the hip pain. CMR- Ruled out possible apical outpouching/aneurysm. Cardiac Catherization 04/30/2020 -Left Main artery normal -Left anterior descending artery has a stent in the proximal through mid segment which is widely patent in the proximal segment however there is a 90% focal in stent restenotic lesion in the distal portion of the mid LAD. -Distal to the stent there is a 30% transitioning stenosis. -Circumflex artery is a nondominant vessel and has mild 10% luminal irregularities. -Right coronary artery is a large dominant vessel with mild calcified 20-30% proximal and mid vessel and distal stenoses. The posterior descending artery has a proximal concentric 40% stenosis. -EF 45-50% -the left internal mammary artery is physiologically occluded in its ostial proximal segment and provides no antegrade flow to the LAD Review of symptoms See HPI 14 Point ROS reviewed and is otherwise negative except as per HPI. Past Medical History Past Medical History: Diagnosis Date Abnormal ECG Asthma Atrial fibrillation ([facility]) CHF (congestive heart failure) ([facility]) 2002 COPD (chronic obstructive pulmonary disease) ([facility]) Coronary artery disease 2001 Gastroesophageal reflux disease without esophagitis Hypercholesteremia Hypertension CO (myocardial infarction) ([facility]) Obstructive sleep apnea (adult) (pediatric) CORNELIA on CPAP Old myocardial infarction History of myocardial infarction Restless leg syndrome Surgical History Past Surgical History: Procedure Laterality Date ABLATION OF DYSRHYTHMIC FOCUS AORTIC VALVE REPLACEMENT BILIARY DRAINAGE N/A Atrial Cardioversion from [facility] CARDIAC CATHETERIZATION CAROTID STENT CATH STENT PLACEMENT/ CATH PLACEMENT OF STENT N/A Cath Stent Placement from [facility] COLON SURGERY N/A Colon Surgery from [facility] CORONARY ANGIOPLASTY CORONARY ARTERY BYPASS GRAFT N/A CABG from [facility] CORONARY STENT PLACEMENT HYSTERECTOMY N/A Hysterectomy from [facility] TOTAL KNEE ARTHROPLASTY Bilateral Knee Replacement from [facility] Family History family history includes Coronary artery disease in her father and mother. Social History reports that she quit smoking about 21 months ago. Her smoking use included cigarettes. She startedsmoking about 64 years ago. She has a 126.2 pack-year smoking history. She has never used smokelesstobacco. She reports that she does not drink alcohol and does not use drugs. Medications Current Outpatient Medications Medication Sig Dispense Refill albuterol 108 (90 Base) MCG/ACT inhaler Inhale 2 puffs every 4 (four) hours if needed. aspirin 81 MG chewable tablet Chew 1 tablet (81 mg) 1 (one) time each day in the morning. Breztri Aerosphere 160-9-4.8 MCG/ACT aerosol Inhale 1 puff 2 (two) times a day. buPROPion XL (Wellbutrin XL) 300 MG 24 hr tablet Take 1 tablet (300 mg) by mouth 1 (one) time each day in the morning. Combivent Respimat 20-100 MCG/ACT inhaler Inhale 1 puff 4 (four) times a day. Eliquis 5 MG tablet Take 1 tablet (5 mg) by mouth 2 (two) times a day. 180 tablet 3 Evolocumab 140 MG/ML solution auto-injector Inject 1 mL (140 mg) under the skin every 14 (fourteen)days. 6 mL 1 famotidine (Pepcid) 20 MG tablet Take 1 tablet (20 mg) by mouth 2 (two) times a day if needed. Fasenra Pen 30 MG/ML solution auto-injector injection Inject 1 mL (30 mg) under the skin every 56 (Fifty-six) days. fluticasone (Flonase) 50 MCG/ACT nasal spray Administer 1 spray into each nostril 1 (one) time eachday. Gemtesa 75 MG tablet ipratropium-albuterol (Duo-Neb) 0.5-2.5 mg/3 mL nebulizer solution Take 3 mL by nebulization every 6 (six) hours if needed. isosorbide mononitrate ER (Imdur) 30 MG 24 hr tablet 1 tablet (30 mg). losartan (Cozaar) 25 MG tablet Take 1 tablet (25 mg total) by mouth 1 (one) time each day. (Patientnot taking: Reported on 10/07/2024) 90 tablet 3 montelukast (Singulair) 10 MG tablet Take 1 tablet (10 mg) by mouth every night. (Patient not taking: Reported on 10/07/2024) omalizumab (Xolair) 150 MG/ML injection every 28 (twenty-eight) days. (Patient not taking: Reportedon 10/07/2024) rOPINIRole (Requip) 1 MG tablet Take 1 tablet (1 mg) by mouth 3 (three) times a day. 1 tab in the morning, 1 tab in the evening, 1 tab nightly temazepam (Restoril) 15 MG capsule Take 1 capsule (15 mg) by mouth every night. amoxicillin (Amoxil) 500 MG capsule bisoprolol (Zebeta) 5 MG tablet Take 1 tablet (5 mg total) by mouth 1 (one) time each day in the morning. 30 tablet 0 cetirizine (ZyrTEC) 10 MG tablet Take 1 tablet (10 mg total) by mouth every night. 30 tablet 11 escitalopram (Lexapro) 20 MG tablet Take 1 tablet (20 mg total) by mouth 1 (one) time each day. 30 tablet 2 furosemide (Lasix) 20 MG tablet Take 1 tablet (20 mg total) by mouth 1 (one) time each day. 30 tablet 11 No current facility-administered medications for this visit. Physical Exam Constitutional: Appearance: Normal appearance. Cardiovascular: Rate and Rhythm: Normal rate and regular rhythm. Heart sounds: Normal heart sounds. Pulmonary: Effort: Pulmonary effort is normal. Breath sounds: Normal breath sounds. Skin: General: Skin is warm and dry. Neurological: General: No focal deficit present. Mental Status: She is alert and oriented to person, place, and time. Psychiatric: Mood and Affect: Mood normal. Behavior: Behavior normal. Visit Vitals BP 138/85 Pulse 67 Ht 1.626 m (5' 4 ) Wt 69 kg (152 lb 1.9 oz) SpO2 97% BMI 26.11 kg/m?? Cardiac Testing Imaging No echocardiogram results found for the past 12 months Labs Lab Results Component Value Date HGB 14.6 08/20/2022 HCT 42.9 08/20/2022 PLT 302 08/20/2022 ALT 14 03/31/2024 AST 24 03/31/2024 NA 143 03/31/2024 K 3.6 (L) 03/31/2024 CREATININE 0.86 03/31/2024 BUN 9 03/31/2024 CO2 26 03/31/2024 TSH 2.36 08/07/2022 INR 1.0 08/07/2022 Assessment and Plan CAD -s/p ISRS of LAD -AMY placed to mid LAD 2018 -asymptomatic and doing well -Continue Aspirin BB and repatha. -Continue cholesterol management-goal LDL <70 PAF -Continue f/u with EP -Rate controlled with BB -Anticoagulated with Eliquis for CHADS-VASC score of 3 HTN -BP WNL; continue to monitor at home -Continue current medications HLD -Continue Repatha; LDL <70 Pre-op risk assessment -Class III risk from a cardiac perspective if she wanted to pursue a hip replacement -LVEF normal per CMR 11/2022 -Will just need to get an updated EKG before surgery Follow-up in 6 months A total time of 30 minutes was spent addressing the current illness, reviewing records (prior imaging, lab work, etc), and formulating a plan. The patient is agreeable to the plan and all pertinent questions were answered. Acacia Scott APRN documented in this encounter Plan of Treatment Upcoming Encounters Date Type Department Care Team (Late st Contact Info) Description 03/30/2025 2:00 PM EDT Office Visit [facility] [place] [address], [address] [place] [address] Acacia Scott APRN [address] [place] [address] Scheduled Procedures Name Priority Associated Diagnoses Date/Ti me ARTHROPLASTY, HIP, TOTAL Arthritis of right hip documented as of this encounter Visit Diagnoses Diagnosis Mixed hyperlipidemia- Primary Coronary artery disease involving [place] coronary artery of [place] heart without angina pectoris PAF (paroxysmal atrial fibrillation) ([facility]) Atrial fibrillation Primary hypertension Unspecified essential hypertension documented in this encounter Additional Health Concerns Assessment Noted Time A fall risk assessment has been complete d for the patient 09/29/2024 3:09 PM EST A Body Mass Index follow-up plan has been documented for the patient 10/08/2024 9:40 PM EST documented as of this encounter Care Teams Air Cargo Specialist Relationship Specialty Start Date End Date Michael Baez MD [address] [place] [address] PCP - General 04/08/21 Acacia Scott APRN [address] [place] [address] Nurse Practitioner Cardiology 03/27/22 documented as of this encounter
--- OUTSIDE RECORDS SUMMARY | 2024-10-13 13:24 | XMS_ITS | Encounter Summary ---
Author Organization [facility] Address [address] [place] [address] Care Team Providers Care Crew Supervisor Name Role Phone Michael Baez MD Primary Care Provider + [phone] Acacia Scott FISCAL AGENT Unavailable [phone] Encounter Details Date Type Department Care Team (Late st Contact Info) Description 04/22/2024 Telephone [facility] [place] [address] [facility], [address] [place] [address] Teressa Burt, PharmD [address] [place] [address] Social History Tobacco Use Types Packs/Day Years Used Date Smoking Tobacco: Former Cigarettes 2 63.1 0 11/26/1959 - 12/2022 Smokeless Tobacco: Never Alcohol Use Standard Drinks/Week Comments Never 0 [...] drink first t pippa in the morning (EYE-HOST AND HOSTESS) to 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 0 08/17/2022 CAGE Questionnaire Score 0 022 Comments Unknown Sex and Gender Information Value Date Recorded Sex Assigned at Not on file Legal Sex Female 7:36 PM EDT Gender Identity Not on file Sexual Orientation Not on file documented as of this encounter Miscellaneous Notes * Telephone Encounter - Teressa Burt PharmD - 04/22/2024 11:50 AM EDT Called patient today for HLD management at the request of Acacia Scott. Patient did not answer so left a voicemail asking for return call to [phone]. Teressa Burt PharmD, BCACP [facility] [address] [address], [address] [place] [address] documented in this encounter Plan of Treatment Upcoming Encounters Date Type Department Care Team (Late st Contact Info) Description 03/30/2025 2:00 PM EDT Office Visit [facility] [place] [address] [facility], [address] [place] [address] Acacia Scott APRN [address] [place] [address] Scheduled Procedures Name Priority Associated Diagnoses Date/Ti me ARTHROPLASTY, HIP, TOTAL Arthritis of right hip documented as of this encounter Visit Diagnoses Not on filedocumented in this encounter Additional Health Concerns Assessment Noted Time A fall risk assessment has been complete d for the patient 03/31/2024 3:39 PM EDT A Body Mass Index follow-up plan has been documented for the patient 04/10/2024 10:45 PM EDT documented as of this encounter Care Teams Crew Supervisor Relationship Specialty Start Date End Date Michael Baez MD [address] [place] [address] PCP - General 04/08/21 Acacia Scott APRN [address] [place] [address] Nurse Practitioner Cardiology 03/27/22 documented as of this encounter
--- OUTSIDE RECORDS SUMMARY | 2024-10-13 13:24 | XMS_ITS | Encounter Summary ---
Author Organization [facility] Address [address] [place] [id number] Care Team Providers Care Power Transformer Repairer Name Role Phone Michael Baez MD Primary Care Provider [phone] Acacia Scott APRN Unavailable [phone] Virgilio Nguyễn MD Unavailable [phone] Reason for Visit * Reason Comments Consult * Consultation (Routine) - Closed Specialty Diagnoses / Procedures Referred By Contac t Referred To Contact Orthopaedic Surgery Diagnoses Pain in right hip Uriel Sharma MD [address] [facility] [address] [place] [address] Phone: tel: fax: Aubrey Gonzáles MD [address] [facility] [address] [place] [address] Phone: tel: fax: Referral ID Status Reason Start Date Expiration Date V isits Requested Visits Authorized [id number] Closed Specialty Services Required 09/24/2024 03/26/2026 1 1 Encounter Details Date Type Department Care Team ([facility] st Contact Info) Description 10/07/2024 11:40 AM EST Office Visit Medical Office Building [facility] [address] , [address] [place] [address] Romero Pizano MD [address] [facility] [address] [place] [address] Hip pain, right (Primary Dx); Pain in right hip Social History Tobacco Use Types Packs/Day Years [...] drink first t pippa in the morning (EYE-SLD INCLUSION TEACHER) to steady your nerves or to get [...] Sign Reading Time Taken Comments Blood Pressure 136/82 10/07/2024 11:22 AM EST Pulse 73 10/07/2024 11:22 AM EST Temperature - - Respiratory Rate - - Oxygen Saturation 95% 10/07/2024 11:22 AM EST Inhaled Oxygen Concentration - - Weight 69 kg (152 lb 1.9 oz) 10/07/2024 11:22 AM EST Height 162.6 cm (5' 4 ) 10/07/2024 11:22 AM EST Body Mass Index 26.11 10/07/2024 11:22 AM EST documented in this encounter Miscellaneous Notes * Progress Notes - Brianna Schneider, RN - 10/07/2024 11:40 AM EST Patient was provided with Total Joint Education Packet. Patient was educated using information provided in packet. Patient instructed to schedule PT appointment 4-7 days after surgery date and to schedule prior to having procedure. All questions answered. Contact information for Joint Replacement Nu rse given for patient to call should any questions arise before or after surgery. Pt then met with engineering director to arrange surgery and Joint Replacement Class date. Reviewed patients allergies, medications, medical and surgical history, and pharmacy verified. Instructed patient to stop NSAIDS, ASA, and OTC vitamins & supplements 1 week prior to procedure. Instructed to ensure any hormone replacement, if taken, is stopped 1 month prior to surgery. Also any dermatological procedures or dental work need to be performed 1 month prior to procedure. Patient instructed to review educational material and write down any questions or concerns in the notes section and bring the packet to the hospital and all appointments. Patient stated understanding. Cardiac clearance is in chart. Also requires pulmonology clearance. Request sent to Dr. Vahid Nguyễn. * Progress Notes - Romero Pizano MD - 10/07/2024 11:40 AM EST Chief complaint right hip pain History present illness patient is a 73-year-old female who is seen today for evaluation of right hip pain she has a long history with respect to chronic pain in both her left hip and her right hip she has had multiple injections currently takes narcotic pain medicine and is using a cane she statesthat the pain is in her right buttock radiates to the groin it is worse with activity better with re st the injections have given her good relief her last injection was 4-6 weeks ago and this is worn off and she is now in significant pain. She is here today requesting a total hip replacement. She denies any fevers chills or other constitutional signs or symptoms. Past medical history, surgical, social, family, history, medications, and allergies were all reviewed in the intake questionnaire. Patient completed a 15 point review of systems which is scanned into the medical documentation. Pertinent positives and negatives are listed in history of present illness. Patient is pleasant with normal affect. They are awake, alert, oriented and in no acute distress. Skin exam shows no sign of abnormal change. Cardiopulmonary examination shows a regular rate and rhythm with no respiratory difficulty on room air. Exam of the left lower extremity was difficult secondary to guarding and significant pain any motion around the hip cause significant pain in the groin patient did not tolerate internal external rotation of the hip her knee exam was benign low back examshowed a negative straight leg raise distal circulation motor and sensation were grossly intact. X-rays show moderate to severe osteoarthritis of the right hip with osteophytic changes subchondralsclerosis subchondral cyst and lack of joint space Assessment right hip arthritis in patient with chronic complex pain disorder I had a long pleasant discussion with the patient I do believe she would benefit from a total hip replacement however with her history with narcotics and chronic chronic complex pain I do worry that she will have a difficult time with the postoperative recovery as she states that she does not have any other options she was maximized all of her other treatment modalities she does wished to proceedvoiced understanding for the significant pain problems as well as with her cardiopulmonary function. She will need clearance prior to proceeding with total hip replacement we fill of the necessary paperwork and will proceed once she has this appropriate clear she will need to discontinue her Eliquis 3 days before she voiced understand documented in this encounter Plan of Treatment Upcoming Encounters Date Type Department Care Team (Late st Contact Info) Description 03/30/2025 2:00 PM EDT Office Visit [facility] [place] [address] [facility] [address], [address] [place] [address] [place] Acacia L, APARTMENT COMMUNITY ASSISTANT MANAGER [address] [place] [address] Scheduled Procedures Name Priority Associated Diagnoses Date/Ti me ARTHROPLASTY, HIP, TOTAL Arthritis of right hip documented as of this encounter Results * New Patient: XR Hip (AP Pelvis Standing with Waylon Marker / Frog Leg Lateral Standing) (10/07/2024 11:09 AM EST) Anatomical Region Laterality Modality Lower Extremities, Hip Right Digital R adiography Impressions 10/07/2024 12:11 PM EST 1. Mild osteoarthritis of the right hip. 2. Severe osteoarthritis of the left hip. CRITICAL RESULT: ?? No. COMMUNICATION: Per this written report. Drafted by Corey Thompson MD on 10/07/2024 12:09 PM Final report signed by Corey Thompson MD on 10/07/2024 12:11 PM Narrative 10/07/2024 12:11 PM EST CLINICAL INDICATION: hip pain TECHNIQUE: XR HIP RIGHT 2 OR 3 VIEWS COMPARISON: None. FINDINGS: 2 views of the right hip show osteophyte formation with normal hip joint space and alignment. Superior lateral left hip joint space narrowing with gltl-oh-qwzd articulation and osteophyte formation. Generalized osteopenia. Pubic symphysis is normal. Changes of vertebroplasty at L2. Moderate degenerative disc changes at L4-L5. No significant abnormality of the sacroiliac joints. Procedure Note Corey Thompson MD - 10/07/2024 CLINICAL INDICATION: hip pain TECHNIQUE: XR HIP RIGHT 2 OR 3 VIEWS COMPARISON: None. FINDINGS: 2 views of the right hip show osteophyte formation with normal hip jointspace and alignment. Superior lateral left hip joint space narrowing lgjyjwri-vd-lcjx articulation and osteophyte formation. Generalizedosteopenia. Pubic symphysis is normal. Changes of vertebroplasty at L2.Moderate degenerative disc changes at L4-L5. No significant abnormality ofthe sacroiliac joints. IMPRESSION: 1.Mild osteoarthritis of the right hip. 2.Severe osteoarthritis of the left hip. CRITICAL RESULT: No. COMMUNICATION: Per this written report. Drafted by Corey Thompson MD on 10/07/2024 12:09 PM Final report signed by Corey Thompson MD on 10/07/2024 12:11 PM Romero Pizano MD IMG XR PROCEDURES Final R esult documented in this encounter Visit Diagnoses Diagnosis Hip pain, right- Primary Pain in joint, pelvic region and thigh Pain in right hip Hip pain, right Pain in joint, pelvic region and thigh documented in this encounter Additional Health Concerns Assessment Noted Time A fall risk assessment has been complete d for the patient 10/07/2024 11:20 AM EST A Body Mass Index follow-up plan has been documented for the patient 10/07/2024 1:08 PM EST documented as of this encounter Care Teams Power Transformer Repairer Relationship Specialty Start Date End Date Michael Baez MD [address] [place] [address] PCP - General 04/08/21 Acacia Scott APRN [address] [place] [address] Nurse Practitioner Cardiology 03/27/22 Virgilio Nguyễn MD [address] [facility] [address] [place] [address] Referring Physician 10/07/24 documented as of this encounter
--- OUTSIDE RECORDS SUMMARY | 2024-10-13 13:24 | XMS_ITS | Encounter Summary ---
Author Organization Healthcare Address [address] [place] [address] Care Team Providers Care Cold Molding Press Operator Name Role Phone Michael Baez MD Primary Care Provider + [phone] Acacia Scott AUTOMOTIVE PAINTER HELPER Unavailable [phone] Encounter Details Date Type Department Care Team (Late st Contact Info) Description 08/05/2024 Telephone [facility] [address] [place] [phone] Kalani Godfrey, PharmD Special[facility] [address] [place] [address] Social History Tobacco Use Types Packs/Day Years [...] drink first t pippa in the morning (EYE-CUSTOMER ADVISOR) to 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 0 08/17/2022 CAGE Questionnaire Score 0 022 Comments Unknown Sex and Gender Information Value Date Recorded Sex Assigned at Not on file Legal Sex Female 7:36 PM EDT Gender Identity Not on file Sexual Orientation Not on file documented as of this encounter Plan of Treatment Upcoming Encounters Date Type Department Care Team ([facility] st Contact Info) Description 03/30/2025 2:00 PM EDT Office Visit [facility] [place] [address] [facility], [address] [place] [address] Acacia Scott APRN [address] [place] [address] Scheduled Procedures Name Priority Associated [...] documented as of this encounter Care Teams Cold Molding Press Operator Relationship Specialty Start Date End Date Michael Baez MD [address] [place] [address] PCP - General 04/08/21 Acacia Scott APRN [address] [place] [address] Nurse Practitioner Cardiology 03/27/22 documented as of this encounter
--- OUTSIDE RECORDS SUMMARY | 2024-10-13 13:24 | XMS_ITS | Encounter Summary ---
Author Organization Healthcare Address [address] [place] [address] Care Team Providers Care Director Of Critical Care Name Role Phone Michael Baez MD Primary Care Provider + [phone] Acacia Scott FOOD AND BEVERAGE ANALYST Unavailable [phone] Encounter Details Date Type Department Care Team (Latest Contact Info) Description 09/22/2024 Travel Social History Tobacco Use Types Packs/Day Years [...] drink first t pippa in the morning (EYE-HARDWARE INSTALLER) to steady your nerves or to get [...] Description 03/30/2025 2:00 PM EDT Office Visit [facility] [place] [address] [facility], [address] [place] [address] Acacia Scott APRN [address] [place] [address] Scheduled Procedures Name Priority Associated [...] documented as of this encounter Care Teams Director Of Critical Care Relationship Specialty Start Date End Date Michael Baez MD [address] [facility] [address] [place] [address] PCP - General 04/08/21 Acacia Scott APRN [address] [place] [phone] Nurse Practitioner Cardiology 03/27/22 documented as of this encounter
--- OUTSIDE RECORDS SUMMARY | 2024-10-13 13:24 | XMS_ITS | Encounter Summary ---
Author Organization [facility] Address [address] [place] [address] Care Team Providers Care Mock Up Builder Name Role Phone Michael Baez MD Primary Care Provider + [phone] Acacia Scott APRN Unavailable [phone] Virgilio Nguyễn MD Unavailable [phone] Encounter Details Date Type Department Care Team (Latest Contact Info) Description 10/07/2024 11:00 AM EST - 10/07/2024 11:59 PM EST Hospital Encounter Medical Office Building Radiology [address] [place] [address] Hip pain, right Discharge Disposition: Home or Self Care Social History Tobacco Use Types Packs/Day Years [...] drink first t pippa in the morning (EYE-CARBON ACCOUNTANT) to 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 0 08/17/2022 CAGE Questionnaire Score 0 022 Comments No Sex and Gender Information Value Date Recorded Sex Assigned at Not on file Legal Sex Female 7:36 PM EDT Gender Identity Not on file Sexual Orientation Not on file documented as of this encounter Medications at Time of Discharge albuterol 108 (90 Base) MCG/ACT inhaler Inhale 2 puffs every 4 (four) hours if needed. 02/05/2020 amoxicillin (Amoxil) 500 MG capsule 09/30/2024 aspirin 81 MG chewable tablet Chew 1 tablet (81 mg) 1 (one) time each day in the morning. Breztri Aerosphere 160-9-4.8 MCG/ACT aerosol Inhale 1 puff 2 (two) times a day. 08/14/2022 buPROPion XL (Wellbutrin XL) 300 MG 24 hr tablet Take 1 tablet (300 mg) by mouth 1 (one) time each day in the morning. 07/18/2022 Combivent Respimat 20-100 MCG/ACT inhaler Inhale 1 puff 4 (four) times a day. 01/11/2021 Eliquis 5 MG tablet Take 1 tablet (5 mg) by mouth 2 (two) times a day. 180 tablet 3 02/13/2024 5 Evolocumab 140 MG/ML solution auto-injector Inject 1 mL (140 mg) under the skin every 14 (fourteen) days. 6 mL 1 08/22/2024 famotidine (Pepcid) 20 MG tablet Take 1 tablet (20 mg) by mouth 2 (two) times a day if needed. 08/15/2021 Fasenra Pen 30 MG/ML solution auto-injector injection Inject 1 mL (30 mg) under the skin every 56 (Fifty-six) days. 03/13/2024 fluticasone (Flonase) 50 MCG/ACT nasal spray Administer 1 spray into each nostril 1 (one) time each day. 11/06/2022 Gemtesa 75 MG tablet ipratropium-albut willow (Duo-Neb) 0.5-2.5 mg/3 mL nebulizer solution Take 3 mL by nebulization every 6 (six) hours if needed. 06/16/2022 isosorbide mononitrate ER (Imdur) 30 MG 24 hr tablet 1 tablet (30 mg). losartan (Cozaar) 25 MG tablet Take 1 tablet (25 mg total) by mouth 1 (one) time each day. 90 tablet 3 08/18/2021 montelukast (Singulair) 10 MG tablet Take 1 tablet (10 mg) by mouth every night. 11/06/2022 omalizumab (Xolair) 150 MG/ML injection every 28 (twenty-eight) days. rOPINIRole (Requip) 1 MG tablet Take 1 tablet (1 mg) by mouth 3 (three) times a day. 1 tab in the morning, 1 tab in the evening, 1 tab nightly 08/15/2021 temazepam (Restoril) 15 MG capsule Take 1 capsule (15 mg) by mouth every night. 08/14/2022 documented as of this encounter Plan of Treatment Upcoming Encounters Date Type Department Care Team (Late st Contact Info) Description 03/30/2025 2:00 PM EDT Office Visit [facility] [place] [address] [facility], [address] [place] [address] Acacia Scott, SPLICING MACHINE OPERATOR [address] [place] [address] Scheduled Procedures Name Priority Associated Diagnoses Date/Ti me ARTHROPLASTY, HIP, TOTAL Arthritis of right hip documented as of this encounter Procedures Procedure Name Priority Date/Time Associated Diagnosis Comments XR HIP RIGHT 2 OR 3 VIEWS Routine 10/07/2024 11:09 AM EST Hip pain, right documented in this encounter Results * New Patient: XR [...] lateral left hip joint space narrowing with wnvp-tm-kzay articulation and osteophyte formation. Generalized osteopenia. Pubic [...] Superior lateral left hip joint space narrowing abdrxnel-aj-osjl articulation and osteophyte formation. Generalizedosteopenia. Pubic symphysis [...] this encounter Visit Diagnoses Diagnosis Hip pain, right Pain in joint, pelvic region and thigh documented in this encounter Additional Health Concerns Assessment Noted Time A fall risk assessment has been complete d for the patient 10/07/2024 11:20 AM EST A Body Mass Index follow-up plan has been documented for the patient 10/07/2024 1:08 PM EST documented as of this encounter Care Teams Mock Up Builder Relationship Specialty Start Date End Date Michael Baez MD [address] [place] [address] PCP - General 04/08/21 Acacia Scott APRN [address] [place] [address] Nurse Practitioner Cardiology 03/27/22 Virgilio Nguynễ MD [address] [facility] [address] [place] [address] Referring Physician 10/07/24 documented as of this encounter
--- OUTSIDE RECORDS SUMMARY | 2024-10-13 13:24 | XMS_ITS | Encounter Summary ---
Author Organization Healthcare Address [address] [place] [address] Care Team Providers Care Warper Creeler Name Role Phone Michael Baez MD Primary Care Provider + [phone] Acacia Scott ELECTRICAL INSTRUMENTATION TECHNICIAN Unavailable [phone] Encounter Details Date Type Department Care Team (Latest Contact Info) Description 09/29/2024 Travel Social History Tobacco Use Types Packs/Day [...] drink first t pippa in the morning (EYE-STRUCTURAL STEEL EQUIPMENT ERECTOR) to steady your nerves or to get [...] Description 03/30/2025 2:00 PM EDT Office Visit [facility] [place] [address] [facility], [address] [place] [address] Acacia Scott APRN [address] [place] [address] Scheduled Procedures Name Priority Associated [...] documented as of this encounter Care Teams Warper Creeler Relationship Specialty Start Date End Date Michael Baez MD [address] [place] [address] PCP - General 04/08/21 Acacia Scott APRN [address] [place] [address] Nurse Practitioner Cardiology 03/27/22 documented as of this encounter
--- OUTSIDE RECORDS SUMMARY | 2024-10-13 13:24 | XMS_ITS | Encounter Summary ---
Author Organization [facility] Address [address] [place] [address] Care Team Providers Care Security Flex Utility Officer Name Role Phone Michael Baez MD Primary Care Provider + [phone] Acacia Scott STEM THRESHING MACHINE OPERATOR Unavailable [phone] Reason for Visit * Reason Onset Date Comments Med Refill 08/22/2024 Encounter Details Date Type Department Care Team (Late st Contact Info) Description 08/22/2024 Refill [facility] [place] [address] [facility], [address] [place] [address] Acacia Scott, STEM THRESHING MACHINE OPERATOR [address] [place] [address] Social History Tobacco Use Types [...] drink first t pippa in the morning (EYE-DEVOPS ENGINEER) to steady your nerves or to get [...] Description 03/30/2025 2:00 PM EDT Office Visit [facility] [place] [address] [facility], [address] [place] [address] Acacia Scott APRN [address] [place] [address] Scheduled Procedures Name Priority Associated [...] documented as of this encounter Care Teams Security Flex Utility Officer Relationship Specialty Start Date End Date Michael Baez MD [address] [place] [address] PCP - General 04/08/21 Acacia Scott APRN [address] [place] [address] Nurse Practitioner Cardiology 03/27/22 documented as of this encounter
--- OUTSIDE RECORDS SUMMARY | 2024-10-13 13:24 | XMS_ITS | Encounter Summary ---
Author Organization [facility] Address [address] [place] [address] Care Team Providers Care Farebox Repairer Name Role Phone Michael Baez MD Primary Care Provider + [phone] Acacia Scott POULTRY HELPER Unavailable [phone] Reason for Visit * Reason Onset Date Comments Med Refill 04/29/2024 Encounter Details Date Type Department Care Team (Late st Contact Info) Description 04/29/2024 Refill [facility] [place] [address] [facility], [address] [place] [address] Acacia Scott, POULTRY HELPER [address] [place] [address] Social History Tobacco Use Types [...] drink first t pippa in the morning (EYE-GAS MASK ASSEMBLER) to steady your nerves or to get [...] Description 03/30/2025 2:00 PM EDT Office Visit [facility] [place] [address] [facility], [address] [place] [address] Acacia Scott APRN [address] [place] [address] Scheduled Procedures Name Priority Associated [...] documented as of this encounter Care Teams Farebox Repairer Relationship Specialty Start Date End Date Michael Baez MD [address] [place] [address] PCP - General 04/08/21 Acacia Scott APRN [address] [place] [address] Nurse Practitioner Cardiology 03/27/22 documented as of this encounter
--- OUTSIDE RECORDS SUMMARY | 2024-10-13 13:24 | XMS_ITS | Encounter Summary ---
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) to steady your nerves or to get [...] Upcoming Encounters Date Type Department Care Team ([facility] st Contact Info) Description 03/30/2025 2:00 PM EDT Office Visit [facility] [place] [address] [facility], [address] [place] [address] Acacia Scott APRN [address] [place] [address] Scheduled Procedures Name Priority Associated Diagnoses Date/Ti me ARTHROPLASTY, HIP, TOTAL Arthritis of right hip documented as of this encounter Procedures Procedure Name Priority Date/Time Associated Diagnosis Comments XR MSK OUTSIDE IMAGES 09/01/2024 11:29 AM EDT documented in this encounter Results * XR MSK OUTSIDE IMAGES (09/01/2024 11:29 AM EDT) Anatomical Region Laterality Modality Radiographic Debra ging 09/01/2024 11:2 9 AM EDT us External Provider IMG XR PROCEDURES Final Result documented in this encounter Visit Diagnoses Not on filedocumented in this encounter Additional Health Concerns Assessment Noted Time A fall risk assessment has been complete d for the patient 03/31/2024 3:39 PM EDT A Body Mass Index follow-up plan has been documented for the patient 04/10/2024 10:45 PM EDT documented as of this encounter Care Teams Predictive Maintenance Technician Relationship Specialty Start Date End Date Michael Baez MD [address] [place] [address] PCP - General 04/08/21 Acacia Scott APRN [address] [place] [address] Nurse Practitioner Cardiology 03/27/22 Virgilio Nguyễn MD [address] [place] [address] Referring Physician 10/07/24 documented as of this encounter"
--- OUTSIDE RECORDS SUMMARY | 2024-10-13 13:24 | XMS_ITS | Encounter Summary ---
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-VIBRATOR OPERATOR) to steady your nerves or to [...] Description 03/30/2025 2:00 PM EDT Office Visit [facility] [place] [address] [facility] [address], [address] [place] [id number] Acacia Scott APRN [address] [place] [address] Scheduled Procedures Name Priority Associated [...] documented as of this encounter Care Teams Bundle Clerk Relationship Specialty Start Date End Date Michael Baez MD [address] [facility] [address] [place] [address] PCP - General 04/08/21 Acacia Scott APRN [address] [place] [id number] Nurse Practitioner Cardiology 03/27/22 documented as of this encounter
--- OUTSIDE RECORDS SUMMARY | 2024-10-13 13:24 | XMS_ITS | Encounter Summary ---
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) to steady your nerves or to get [...] Description 03/30/2025 2:00 PM EDT Office Visit [facility] [place] [address] [facility], [address] [place] [address] Acacia Scott APRN [address] [place] [address] Scheduled Procedures Name Priority Associated [...] documented as of this encounter Care Teams Worm Grower Relationship Specialty Start Date End Date Michael Baez MD [address] [place] [address] PCP - General 04/08/21 Acacia Scott APRN [address] [place] [phone] Nurse Practitioner Cardiology 03/27/22 Virgilio Nguyễn MD [address] [place] [address] Referring Physician 10/07/24 documented as of this encounter
--- OUTSIDE RECORDS SUMMARY | 2024-10-13 13:24 | XMS_ITS | Clinical Summary ---
Author Organization [facility] Address [address] [place] [address] Care Team Providers Care Speech Writer Name Role Phone Michael Baez MD Primary Care Provider + [phone] Acacia Scott APRN Unavailable [phone] Virgilio Nguyễn MD Unavailable [phone] Allergies Active Allergy Reactions Criticality Noted Date Comments Codeine Hives,Itching,Nausea And Vomiting,Rash Medium 2008 Diazepam Other - please document in the comment field Low 2008 states it makes me crazy and antsy , paradoxical reaction Diphenhydramine Anaphylaxis,Hives,It ch ing,Rash High 2008 Isosorbide Headache High 03/11/2024 Penicillins Hives,Shortness of breath,Itching,Rash High 02/16/2009 Tolerated ceftriaxone for 5 days Medications albuterol 108 (90 Base) MCG/ACT inhaler Inhale 2 puffs every 4 (four) hours if needed. 0 Active aspirin 81 MG chewable tablet Chew 1 tablet (81 mg) 1 (one) time each day in the morning. Active famotidine (Pepcid) 20 MG tablet Take 1 tablet (20 mg) by mouth 2 (two) times a day if needed. 1 Active Combivent Respimat 20-100 MCG/ACT inhaler Inhale 1 puff 4 (four) times a day. 1 Active rOPINIRole (Requip) 1 MG tablet Take 1 tablet (1 mg) by mouth 3 (three) times a day. 1 tab in the morning, 1 tab in the evening, 1 tab nightly 1 Active losartan (Cozaar) 25 MG tablet Take 1 tablet (25 mg total) by mouth 1 (one) time each day. 90 tablet 3 1 Active Additional Information Patient not taking.Reported on 10/07/2024 Breztri Aerosphere 160-9-4.8 MCG/ACT aerosol Inhale 1 puff 2 (two) times a day. 2 Active buPROPion XL (Wellbutrin XL) 300 MG 24 hr tablet Take 1 tablet (300 mg) by mouth 1 (one) time each day in the morning. 2 Active ipratropium-alb uterol (Duo-Neb) 0.5-2.5 mg/3 mL nebulizer solution Take 3 mL by nebulization every 6 (six) hours if needed. 2 Active temazepam (Restoril) 15 MG capsule Take 1 capsule (15 mg) by mouth every night. 2 Active bisoprolol (Zebeta) 5 MG tablet Take 1 tablet (5 mg total) by mouth 1 (one) time each day in the morning. 30 tablet 2 Active cetirizine (ZyrTEC) 10 MG tablet Take 1 tablet (10 mg total) by mouth every night. 30 tablet 11 2 Active escitalopram (Lexapro) 20 MG tablet Take 1 tablet (20 mg total) by mouth 1 (one) time each day. 30 tablet 2 2 Active furosemide (Lasix) 20 MG tablet Take 1 tablet (20 mg total) by mouth 1 (one) time each day. 30 tablet 11 2 Active omalizumab (Xolair) 150 MG/ML injection every 28 (twenty-eight) days. Active fluticasone (Flonase) 50 MCG/ACT nasal spray Administer 1 spray into each nostril 1 (one) time each day. 2 Active montelukast (Singulair) 10 MG tablet Take 1 tablet (10 mg) by mouth every night. 2 Active Eliquis 5 MG tablet Take 1 tablet (5 mg) by mouth 2 (two) times a day. 180 tablet 3 4 02/08/20 25 Active Fasenra Pen 30 MG/ML solution auto-injector injection Inject 1 mL (30 mg) under the skin every 56 (Fifty-six) days. 4 Active Evolocumab 140 MG/ML solution auto-injector Inject 1 mL (140 mg) under the skin every 14 (fourteen) days. 6 mL 1 4 Active isosorbide mononitrate ER (Imdur) 30 MG 24 hr tablet 1 tablet (30 mg). Active Gemtesa 75 MG tablet Active amoxicillin (Amoxil) 500 MG capsule 4 Active Active Problems Problem Noted Date Diagnosed Date Arthritis of right hip 10/07/2024 Acute coronary syndrome 10/07/2024 Muscle cramps 04/10/2024 Abnormal echocardiogram 10/02/2022 COPD exacerbation 08/15/2022 Elevated troponin 08/15/2022 RLS (restless legs syndrome) 08/15/2022 Gastroesophageal reflux disease without esophagi tis 07/18/2022 Mixed hyperlipidemia 08/28/2021 Hypercholesterolemia 01/02/2020 Coronary artery disease invo lving [place] coronary artery of [place] heart without angina pectoris 05/13/2019 Compression fracture of vertebra 05/13/2019 Hypertension 05/02/2019 Palpitations 05/02/2019 Sleep apnea 05/02/2019 PAF (paroxysmal atrial fibrillation) 02/13/2019 Chronic obstructive lung disease 09/11/2017 Encounters Date Type Department Care Team Description 10/07/2024 11:40 AM EST Office Visit [facility] [address], [address] [place] [address] Romero Pizano MD Hip pain, right (Primary Dx); Pain in right hip 10/07/2024 11:00 AM EST - 10/07/2024 11:59 PM EST Hospital Encounter Medical Office Building Radiology [address] [place] [address] Hip pain, right Discharge Disposition: Home or Self Care 10/07/2024 Travel 09/29/2024 3:30 PM EST Office Visit [facility] [place] [address], [address] [place] [address] Acacia Scott, EQUINE PHARMACOLOGY TECHNICIAN Mixed hyperlipidemia (Primary Dx); Coronary artery disease involving [place] coronary artery of [place] heart without angina pectoris; PAF (paroxysmal atrial fibrillation) (CMS/HCC); Primary hypertension 09/29/2024 Travel 09/22/2024 Travel 09/01/2024 Orders Only External Location [address] [place] [address] Provider, External 08/22/2024 Refill [facility] [place] [address], [address] [place] [address] Acacia Scott APRN 08/05/2024 Telephone [facility] [address] [place] [address] Kalani Godfrey, PharmD from Last 3 Months Immunizations Name Administration Dates Next Due Influenza, high-dose, quadrivalent 12/11/2019, Pneumococcal Polysaccharide PPV23 05/26/2021 Family History Medical History Relation Name Comments Coronary artery disease Father Coronary artery disease Mother Relation Name Status Comments Father Mother Social History Tobacco Use Types Packs/Day Years [...] drink first t pippa in the morning (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 0 08/17/2022 CAGE Questionnaire Score 0 022 Comments No Sex and Gender Information Value Date Recorded Sex Assigned at Not on file Legal Sex Female 7:36 PM EDT Gender Identity Not on file Sexual Orientation Not on file Last Filed Vital Signs Vital Sign Reading Time Taken Comments Blood Pressure 136/82 10/07/2024 11:22 AM EST Pulse 73 10/07/2024 11:22 AM EST Temperature 36.8 ??C (98.3 ??F) 08/26/2022 8:34 AM ED T Respiratory Rate 16 08/26/2022 8:34 AM EDT Oxygen Saturation 95% 10/07/2024 11:22 AM EST Inhaled Oxygen Concentration - - Weight 69 kg (152 lb 1.9 oz) 10/07/2024 11:22 AM EST Height 162.6 cm (5' 4 ) 10/07/2024 11:22 AM EST Body Mass Index 26.11 10/07/2024 11:22 AM EST Plan of Treatment Upcoming Encounters Date Type Department Care Team (Late st Contact Info) Description 03/30/2025 2:00 PM EDT Office Visit [facility] [place] [address], [address] [place] [address] [place] Acacia L, EQUINE PHARMACOLOGY TECHNICIAN [address] [place] [address] Scheduled Procedures Name Priority Associated Diagnoses Date/Ti me ARTHROPLASTY, HIP, TOTAL Arthritis of right hip Health Maintenance Due Date Last Done Comments Dental Oral Exam 1950 Dental Prophylaxis 1950 Dental X-Ray: Bitewings 1950 Dental X-Ray: Full Mouth 1950 [facility]-Bone Density Scan 1950 [facility]Medicare Annual Wellness (AWV) 1950 [facility]-Infant/Child/Adol SDOH Screenings 1951 [facility]- SDOH Screenings 1969 [facility]-Adult SDOH Screenings 1969 [facility]-DTaP,Tdap,and Td Vaccines (1 - Tdap) 1970 CT Colonography 1996 Colonoscopy 1996 FIT-DNA 1996 FIT 1996 FOBT 1996 Sigmoidoscopy 1996 [facility]-Colorectal Cancer Screening 1996 [facility]-Breast Cancer Screening 2001 [facility]-Zoster Vaccines (1 of 2) 2001 [facility]-RSV Vaccine: 60+ Years or (1 - Risk 60-74 years 1-dose series) 2011 [facility]-Pneumococcal Vaccine: 65+ Years (2 of 2 - PCV) 05/26/2022 05/26/2021 [facility]-Lung Cancer Screening 08/07/2023 08/07/2022 [id number] Vaccine ( season) 2024 [facility]-Depression Screening 03/31/2025 03/31/2024 [facility]-Hepatitis C Screening Completed 08/07/2022 [facility]-Influenza Vaccine Completed 08/04/2024 , 12/11/2019, 08/22/2018 [facility]-Obesity Intervention Completed 024, 09/29/2024, 03/31/2024, Additional history exists [facility]-HIB Vaccines Aged Out No longer e ligible based on patient's age to complete this topic [facility]-HPV Vaccines Aged Out No longer e ligible based on patient's age to complete this topic [facility]-Hepatitis A Vaccines Aged Out No longer eligible based on patient's age to complete this topic [facility]-IPV Vaccines Aged Out No longer e ligible based on patient's age to complete this topic [facility]-Rotavirus Vaccines Aged Out No lo nger eligible based on patient's age to complete this topic Procedures Procedure Name Priority Date/Time Associated Diagnosis Comments XR HIP RIGHT 2 OR 3 VIEWS Routine 10/07/2024 11:09 AM EST Hip pain, right XR MSK OUTSIDE IMAGES 09/01/2024 11:[address] CHEST WO IV CONTRAST STAT 08/07/2022 1:12 PM EDT HEPATITIS C ANTIBODY - ED W/REFLEX TO HCV QUANT PCR STAT 08/07/2022 11:09 AM EDT from Last 3 Months or Most Recently Relevant to Health Maintenance Results * New Patient: XR Hip (AP [...] lateral left hip joint space narrowing with [id number] articulation and osteophyte formation. Generalized osteopenia. Pubic [...] Superior lateral left hip joint space narrowing [id number] articulation and osteophyte formation. Generalizedosteopenia. Pubic symphysis [...] Corey Thompson MD on 10/07/2024 12:11 PM us Romero Pizano MD IMG XR PROCEDURES Final R esult * XR MSK OUTSIDE IMAGES (09/01/2024 11:29 AM EDT) Anatomical Region Laterality Modality Radiographic Debra ging 09/01/2024 11:2 9 AM EDT us External Provider IMG XR PROCEDURES Final Result * CT Chest wo IV Contrast (08/07/2022 1:12 PM EDT) Anatomical Region Laterality Modality Chest Computed Tomogra phy Impressions 08/07/2022 1:47 PM EDT 1. No acute abnormality seen in the chest. Multiple incidental findings as described above. 2. No acute fracture or malalignment is appreciated. There is chronic appearing loss of vertebral height centrally at the T7 level. There is kyphosis centered around this deformity 3. No visualized acute abnormality. There is subtle irregularity of the anterior aspect of the mid to lower sacrum on the sagittal images. Consider correlation with point tenderness CRITICAL RESULT: ?? No. COMMUNICATION: Per this written report.. Dictated by Supriya Slaughter MD on 08/07/2022 1:25 PM Signed by Supriya Slaughter MD on 08/07/2022 1:47 PM Narrative 08/07/2022 1:47 PM EDT Exam/Procedure: CT LUMBAR SPINE WO IV CONTRAST, CT THORACIC SPINE WO IV CONTRAST, CT CHEST WO IV CONTRAST ordered by GUILLERMO PHILIP, [id number] CLINICAL INDICATION: Low back pain, no red flags TECHNIQUE: Imaging of the chest was performed from thoracic inlet through upper abdomen, using spiral technique, without administration of IV contrast. ??Reformatted images in the coronal and sagittal planes were generated from the axial data set to facilitate diagnostic accuracy. Axial images of the thoracic spine were obtained from the CT of the chest. Reformatted sagittal and coronal images were derived from the axial data set for additional evaluation and/or surgical planning. CT of the lumbar spine: Axial images were obtained from the L1 level through the proximal femurs without IV contrast. Reformatted sagittal and coronal images were derived from the axial data set Total DLP (Dose-Length Product): 857.69 mGy.cm. Please note: The reported value represents the total of one or more individual components during the CT acquisition on this date and at this time, and as such, the same value may appear in more than one CT report depending on the interpreting/reporting physicians. COMPARISON: None. FINDINGS: Chest: Lack of IV contrast limits evaluation of thoracic organs and vessels. Aorta/Vessels: Thoracic aorta is tortuous and there is a moderate degree of calcified atherosclerotic disease that also extends into the great vessels. ?? Pleural/Pericardial Space: No pneumothorax. No pleural effusions. No pericardial effusion. Lymph Nodes: There is a 1 cm short axis lymph node seen in the precarinal space Lungs: There is atelectasis in the posterior aspect of the lingula and linear atelectasis seen in the bilateral dependent lower lobes Mediastinum: There is cardiomegaly. There is calcified atherosclerotic disease. A coronary artery stent. Chest Wall: There are median sternotomy wires. Bones: There is mild loss of vertebral height and all levels of the thoracic spine. However at the T7 level where there is approximately 50% loss of vertebral height centrally. There is no acute abnormality. There is no retropulsion into the spinal canal. There is midthoracic dextroscoliosis and kyphosis. Anterior lateral left fifth rib chronic fracture. Upper Abdomen: Unremarkable. CT of the thoracic spine Vertebrae: No acute fracture. There is mild loss of vertebral height throughout the thoracic spine. This is most prominent with 50% loss of vertebral height centrally at the T7 vertebrae. At that level there is kyphosis. Alignment: There is kyphosis and there is angulation of the thoracic spine with the vertex rightward focused the T7 level. There is no acute malalignment. Paraspinal soft tissues. No acute abnormality. CT of the lumbar spine: Vertebrae: No acute fracture is appreciated. There is degenerative disc disease that is most prominent at the L2-3 level. There is sclerosis and endplate osteophytosis at all levels. At the lower portion of the sacrum on the lateral view there is concern for age-indeterminate fracture versus slightly expansile lesion. This is not well visualized on the ??axial images. Alignment: Grossly normal. Paraspinal soft tissues. No acute abnormality Procedure Note Supriya Slaughter MD - 08/07/2022 Exam/Procedure: CT LUMBAR SPINE WO IV CONTRAST, CT THORACIC SPINE WO IVCONTRAST, CT CHEST WO IV CONTRAST ordered by GUILLERMO PHILIP, [id number] CLINICAL INDICATION: Low back pain, no red flags TECHNIQUE: Imaging of the chest was performed from thoracic inlet through upperabdomen, using spiral technique, without administration of IV contrast.Reformatted images in the coronal and sagittal planes were generated fromthe axial data set to facilitate diagnostic accuracy. Axial images of the thoracic spine were obtained from the CT of the chest.Reformatted sagittal and coronal images were derived from the axial dataset for additional evaluation and/or surgical planning. CT of the lumbar spine: Axial images were obtained from the L1 levelthrough the proximal femurs without IV contrast. Reformatted sagittal and coronal images were derived from the axial dataset Total DLP (Dose-Length Product): 857.69 mGy.cm. Please note: The reportedvalue represents the total of one or more individual components during theCT acquisition on this date and at this time, and as such, the same valuemay appear in more than one CT report depending on theinterpreting/reporting physicians. COMPARISON: None. FINDINGS: Chest: Lack of IV contrast limits evaluation of thoracic organs and vessels. Aorta/Vessels: Thoracic aorta is tortuous and there is a moderate degreeof calcified atherosclerotic disease that also extends into the greatvessels. Pleural/Pericardial Space: No pneumothorax. No pleural effusions. Nopericardial effusion. Lymph Nodes: There is a 1 cm short axis lymph node seen in the precarinalspace Lungs: There is atelectasis in the posterior aspect of the lingula andlinear atelectasis seen in the bilateral dependent lower lobes Mediastinum: There is cardiomegaly. There is calcified atheroscleroticdisease. A coronary artery stent. Chest Wall: There are median sternotomy wires. Bones: There is mild loss of vertebral height and all levels of thethoracic spine. However at the T7 level where there is approximately 50%loss of vertebral height centrally. There is no acute abnormality. Thereis no retropulsion into the spinal canal. There is midthoracicdextroscoliosis and kyphosis. Anterior lateral left fifth rib chronicfracture. Upper Abdomen: Unremarkable. CT of the thoracic spine Vertebrae: No acute fracture. There is mild loss of vertebral heightthroughout the thoracic spine. This is most prominent with 50% loss ofvertebral height centrally at the T7 vertebrae. At that level there iskyphosis. Alignment: There is kyphosis and there is angulation of the thoracic spinewith the vertex rightward focused the T7 level. There is no acutemalalignment. Paraspinal soft tissues. No acute abnormality. CT of the lumbar spine: Vertebrae: No acute fracture is appreciated. There is degenerative discdisease that is most prominent at the L2-3 level. There is sclerosis andendplate osteophytosis at all levels. At the lower portion of the sacrumon the lateral view there is concern for age-indeterminate fracture versusslightly expansile lesion. This is not well visualized on the axialimages. Alignment: Grossly normal. Paraspinal soft tissues. No acute abnormality IMPRESSION: 1. No acute abnormality seen in the chest. Multiple incidental findings asdescribed above. 2. No acute fracture or malalignment is appreciated. There is chronicappearing loss of vertebral height centrally at the T7 level. There iskyphosis centered around this deformity 3. No visualized acute abnormality. There is subtle irregularity of theanterior aspect of the mid to lower sacrum on the sagittal images.Consider correlation with point tenderness CRITICAL RESULT: No. COMMUNICATION: Per this written report.. Dictated by Supriay Slaughter MD on 08/07/2022 1:25 PM Signed by Supriya Slaughter MD on 08/07/2022 1:47 PM Guillermo Philip MD IMG CT PROCEDURES Final R esult * Hepatitis C Antibody - ED (08/07/2022 11:09 AM EDT) Hepatitis C Antibody Negative Negative 08/07/2022 1:34 PM EDT [facility] Blood Venous blood specimen / Unknown Venipuncture / Unknown 08/07/2022 11:09 AM EDT 08/07/2022 11:15 AM EDT Guillermo Philip MD LAB BLOOD ORDERABLES Anastacia l Result [facility] [address] [place] [address] from Last 3 Months or Most Recently Relevant to Health Maintenance Insurance [employer] MEDICARE Advance Directives * Full Code (Latest Code Status on File) Date Activated Date Inactivated Comments 08/15/2022 10:23 PM 08/26/2022 6:51 PM Question Answer Comments Patient has decision-making capacity? Yes Care Teams Speech Writer Relationship Specialty Start Date End Date Michael Baez MD [address] [place] [address] PCP - General 04/08/21 Acacia Scott APRN [address] [place] [phone] Nurse Practitioner Cardiology 03/27/22 Virgilio Nguyễn MD [address] [place] [address] Referring Physician 10/07/24
--- OUTSIDE RECORDS SUMMARY | 2024-10-13 13:25 | XMS_ITS | Encounter Summary ---
Author Organization Healthcare Address [address] [place] [address] Care Team Providers Care Artificial Breeding Technician Name Role Phone Michael Baez MD Primary Care Provider + [phone] Acacia Scott SHREDDER OPERATOR Unavailable [phone] Encounter Details Date Type Department Care Team (Late st Contact Info) Description 12/22/2022 Telephone [facility] [address], [address] [place] [address] Amelia Bee W, SHREDDER OPERATOR, DNP [address] [place] [address] Social History Tobacco Use Types Packs/Day Years Used Date Smoking Tobacco: Some Days Cigarettes Smokeless Tobacco: Never Alcohol Use Standard Drinks/Week Comments Never 0 (1 standard drink = 0.6 oz pur e alcohol) CAGE ASSESSMENT Answer Date Recorded Cage unable [...] drink first t pippa in the morning (EYE-OXYGEN PLANT OPERATOR) to 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 0 08/17/2022 CAGE Questionnaire Score 0 022 Comments Unknown Sex and Gender Information Value Date Recorded Sex Assigned at Not on file Legal Sex Female 7:36 PM EDT Gender Identity Not on file Sexual Orientation Not on file COVID-19 Exposure Response Date Recorded In the last 10 days, have yo u been in contact with someone who was confirmed or suspected to have Coronavirus/COVID-19? No / Unsure 12/21/2022 10:49 AM EST documented as of this encounter Miscellaneous Notes * Telephone Encounter - Amelia Bee APRN, DNP - 12/22/2022 2:52 PM EST Attempted to call patient, call would not go through . Has active Agrivida, message sent. documented in this encounter Plan of Treatment Upcoming Encounters Date Type Department Care Team (Late st Contact Info) Description 03/30/2025 2:00 PM EDT Office Visit [facility] [place] [address] [facility], [address] [place] [address] Acacia Scott APRN [address] [place] [address] Scheduled Procedures Name Priority Associated Diagnoses Date/Ti me ARTHROPLASTY, HIP, TOTAL Arthritis of right hip documented as of this encounter Visit Diagnoses Not on filedocumented in this encounter Additional Health Concerns Assessment Noted Time A fall risk assessment has been complete d for the patient 12/22/2022 11:06 AM EST A Body Mass Index follow-up plan has been documented for the patient 12/22/2022 2:41 PM EST documented as of this encounter Care Teams Artificial Breeding Technician Relationship Specialty Start Date End Date Michael Baez MD [address] [place] [address] PCP - General 04/08/21 Acacia Scott APRN [address] [place] [address] Nurse Practitioner Cardiology 03/27/22 documented as of this encounter
--- OUTSIDE RECORDS SUMMARY | 2024-10-13 13:25 | XMS_ITS | Encounter Summary ---
Author Organization Healthcare Address [address] [place] [address] Care Team Providers Care Line Haul Driver Name Role Phone Michael Baez MD Primary Care Provider + [phone] Acacia Scott DISC PAD GRINDING MACHINE FEEDER Unavailable [phone] Encounter Details Date Type Department Care Team (Latest Contact Info) Description 12/15/2022 Travel Social History Tobacco Use Types Packs/Day [...] drink first t pippa in the morning (EYE-MEDICATION ASSISTANT) to steady your nerves or to get [...] suspected to have Coronavirus/COVID-19? No / Unsure 12/15/2022 1:03 PM EST documented as of this encounter Plan of Treatment Upcoming Encounters Date Type Department Care Team (Late st Contact Info) Description 03/30/2025 2:00 PM EDT Office Visit [facility] [place] [address] [facility], [address] [place] [address] Acacia Scott APRN [address] [place] [address] Scheduled Procedures Name Priority Associated Diagnoses Date/Ti me ARTHROPLASTY, HIP, TOTAL Arthritis of right hip documented as of this encounter Visit Diagnoses Not on filedocumented in this encounter Additional Health Concerns Assessment Noted Time A fall risk assessment has been complete d for the patient 11/03/2022 8:37 AM EST documented as of this encounter Care Teams Line Haul Driver Relationship Specialty Start Date End Date Michael Baez MD [facility] [address] [place] [address] PCP - General 04/08/21 Acacia Scott APRN [address] [place] [address] Nurse Practitioner Cardiology 03/27/22 documented as of this encounter
--- OUTSIDE RECORDS SUMMARY | 2024-10-13 13:25 | XMS_ITS | Encounter Summary ---
Author Organization Healthcare Address [address] [place] [address] Care Team Providers Care Burnisher Name Role Phone Michael Baez MD Primary Care Provider + [phone] BallingerAcacia hendricks WOOD LATHER Unavailable [phone] Encounter Details Date Type Department Care Team (Latest Contact Info) Description 12/20/2022 Travel Social History Tobacco Use Types Packs/Day [...] drink first t pippa in the morning (EYE-RAYON CONER) to steady your nerves or to get [...] suspected to have Coronavirus/COVID-19? No / Unsure 12/20/2022 10:06 AM EST documented as of this encounter Plan of Treatment Upcoming Encounters Date Type Department Care Team (Late st Contact Info) Description 03/30/2025 2:00 PM EDT Office Visit [facility] [place] [address] [facility], [address] [place] [address] Acacia Scott APRN [address] [place] [address] Scheduled Procedures Name Priority Associated Diagnoses Date/Ti me ARTHROPLASTY, HIP, TOTAL Arthritis of right hip documented as of this encounter Visit Diagnoses Not on filedocumented in this encounter Additional Health Concerns Assessment Noted Time A fall risk assessment has been complete d for the patient 11/03/2022 8:37 AM EST documented as of this encounter Care Teams Burnisher Relationship Specialty Start Date End Date Michael Baez MD [facility] [address] [place] [address] PCP - General 04/08/21 Acacia Scott APRN [address] [place] [address] Nurse Practitioner Cardiology 03/27/22 documented as of this encounter
--- OUTSIDE RECORDS SUMMARY | 2024-10-13 13:25 | XMS_ITS | Encounter Summary ---
Author Organization Healthcare Address [address] [place] [address] Care Team Providers Care Cage Maker Machine Name Role Phone Michael Baez MD Primary Care Provider + [phone] HenriettaAcacia hendricks HOME CARE ATTENDANT Unavailable [phone] Encounter Details Date Type Department Care Team (Latest Contact Info) Description 09/24/2023 Travel Social History Tobacco Use Types Packs/Day [...] drink first t pippa in the morning (EYE-TRACK LAYER HEAD) to steady your nerves or to get [...] Encounters Date Type Department Care Team (Late Contact Info) Description 03/30/2025 2:00 PM EDT Office Visit [facility] [place] [address] [facility], [address] [place] [address] Acacia Scott APRN [address] [place] [address] Scheduled Procedures Name Priority Associated Diagnoses Date/Ti me ARTHROPLASTY, HIP, TOTAL Arthritis of right hip documented as of this encounter Visit Diagnoses Not on filedocumented in this encounter Additional Health Concerns Assessment Noted Time A fall risk assessment has been complete d for the patient 12/26/2022 12:47 PM EST A Body Mass Index follow-up plan has been documented for the patient 12/26/2022 1:45 PM EST documented as of this encounter Care Teams Cage Maker Machine Relationship Specialty Start Date End Date Michael Baez MD [address] [place] [address] PCP - General 04/08/21 Acacia Scott APRN [address] [place] [address] Nurse Practitioner Cardiology 03/27/22 documented as of this encounter
--- OUTSIDE RECORDS SUMMARY | 2024-10-13 13:25 | XMS_ITS | Encounter Summary ---
Author Organization Healthcare Address [address] [place] [address] Care Team Providers Care Project Accountant Name Role Phone Michael Baez MD Primary Care Provider + [phone] Acacia Scott DESKTOP SPECIALIST Unavailable [phone] Encounter Details Date Type Department Care Team (Late st Contact Info) Description 12/26/2022 1:00 PM EST Office Visit [facility] [place] [address] [facility], [address] [place] [address] Acacia Scott, DESKTOP SPECIALIST [address] [place] [address] ASCVD (arteriosclerotic cardiovascular disease) (Primary Dx); Paroxysmal atrial fibrillation (CMS/HCC); Primary hypertension; Mixed hyperlipidemia Social History Tobacco Use Types Packs/Day Years Used Date Smoking Tobacco: Some Days Cigarettes Smokeless Tobacco: Never Tobacco Cessation:Ready to Q uit: Not Asked; Counseling Given: Not Answered Alcohol Use Standard Drinks/Week [...] drink first t pippa in the morning (EYE-ASSISTANT HEAD CASHIER) to steady your nerves or to get [...] AM EST documented as of this encounter Last Filed Vital Signs Vital Sign Reading Time Taken Comments Blood Pressure 138/82 12/26/2022 12:46 PM EST Pulse - - Temperature - - Respiratory Rate - - Oxygen Saturation - - Inhaled Oxygen Concentration - - Weight 85.7 kg (189 lb) 12/26/2022 12:46 PM EST Height 162.6 cm (5' 4 ) 12/26/2022 12:46 PM EST Body Mass Index 32.44 12/26/2022 12:46 PM EST documented in this encounter Miscellaneous Notes * Progress Notes - Acacia Scott APRN - 12/26/2022 1:00 PM EST Images from the original note were not included. Patient Verification Patient identity has been confirmed using name and date of ? Yes Authorizations and Agreements/Telemedicine Consent sent and consent confirmed? Yes Patient Location: Patient's Home Patient confirms they are physically located in [place]? Yes If the patient is not physically located in [place], the provider has confirmed with Legal thatthe provider is authorized to provide services in patient's stated location? Yes Provider Location: HealthCare Facility Audio and video or audio only? Audio and video Total visit time: 20 minutes Supriya Andres is a 72 y.o. female with CAD s/p CABG, stent to LAD with AMY in May 2019 and as recent as 04/30/2020 she was found to have ISRS of the distal portion of the mid LAD with a mildly reduced EF of 45-50% (both done by Dr. Abdalla at [facility]). She also has a h/o AF, CORNELIA, HTN, and hyperlipidemia. She has been followed by Dr. Mar for the AF and underwent PVI on October 29, 2019. Here today to follow-up on Cardiac MRI that was ordered after an incidental finding of apical inferior wall outpouching on echo during a hospital visit last fall. Has been doing well from a cardiac perspective. Denies any chest pain, orthopnea, palpitations, dizziness, syncope, fatigue or edema. She is having a lot of back pain that she is seeing a specialist for and insurance won't approve injections. She did have labs last week that we have requested but unavailable at time of visit. Still smoking Cardiac Catherization 04/30/2020 -Left Main artery normal [...] and provides no antegrade flow to the LAD. Review of symptoms See HPI 14 Point ROS reviewed and is otherwise negative except as per HPI. Past Medical History Past Medical History: Diagnosis Date Asthma Atrial fibrillation ([facility]) COPD (chronic obstructive pulmonary disease) (CMS/[facility]) Gastroesophageal reflux disease without esophagitis Hypercholesteremia Hypertension Obstructive sleep apnea (adult) (pediatric) CORNELIA on CPAP Old myocardial infarction History of myocardial infarction Restless leg syndrome Surgical History Past Surgical History: Procedure Laterality Date BILIARY DRAINAGE N/A Atrial Cardioversion from [facility] CATH STENT PLACEMENT/ CATH PLACEMENT OF STENT N/A Cath Stent Placement from [facility] COLON SURGERY N/A Colon Surgery from [facility] CORONARY ARTERY BYPASS GRAFT N/A CABG from [facility] HYSTERECTOMY N/A Hysterectomy from [facility] TOTAL KNEE ARTHROPLASTY N/A Knee Replacement from [facility] Family History family history includes Coronary artery disease in her father and mother. Social History reports that she has been smoking cigarettes. She has been smoking an average of .25 packs per day.She has never used smokeless tobacco. She reports that she does not drink alcohol and does not use drugs. Medications Current Outpatient Medications Medication Sig Dispense Refill albuterol 108 (90 Base) MCG/ACT inhaler Inhale 2 puffs every 4 (four) hours if needed. aspirin 81 MG chewable tablet Chew 81 mg 1 (one) time each day in the morning. Breztri Aerosphere 160-9-4.8 MCG/ACT aerosol Inhale 1 puff 2 (two) times a day. buPROPion XL (Wellbutrin XL) 300 MG 24 hr tablet Take 1 tablet by mouth 1 (one) time each day in the morning. cetirizine (ZyrTEC) 10 MG tablet Take 1 tablet (10 mg total) by mouth every night. 30 tablet 11 Combivent Respimat 20-100 MCG/ACT inhaler Inhale 1 puff 4 (four) times a day. EPINEPHrine (Epipen) 0.3 MG/0.3ML injection syringe Inject 1 Syringe into the muscle if needed for anaphylaxis. Inject into upper leg. Call 911 after use. Evolocumab (Repatha SureClick) 140 MG/ML solution auto-injector Inject 140 mg as directed every 14 (fourteen) days. Inject 140mg (1 pen) sub-q every 2 weeks 6 mL 1 famotidine (Pepcid) 20 MG tablet Take 20 mg by mouth 2 (two) times a day if needed. fluticasone (Flonase) 50 MCG/ACT nasal spray furosemide (Lasix) 20 MG tablet Take 1 tablet (20 mg total) by mouth 1 (one) time each day. 30 tablet 11 ipratropium-albuterol (Duo-Neb) 0.5-2.5 mg/3 mL nebulizer solution Take 3 mL by nebulization every 6 (six) hours if needed. losartan (Cozaar) 25 MG tablet Take 1 tablet (25 mg total) by mouth 1 (one) time each day. 90 tablet 3 methocarbamol (Robaxin) 500 MG tablet Take 1 tablet (500 mg total) by mouth at night if needed for muscle spasms. 15 tablet 0 montelukast (Singulair) 10 MG tablet omalizumab (Xolair) 150 MG/ML injection Xolair 150 mg/mL subcutaneous syringe Inject by subcutaneous route. rOPINIRole (Requip) 1 MG tablet Take 1 mg by mouth 3 (three) times a day. 1 tab in the morning, 1 tab in the evening, 1 tab nightly temazepam (Restoril) 15 MG capsule Take 1 capsule by mouth every night. bisoprolol (Zebeta) 5 MG tablet Take 1 tablet (5 mg total) by mouth 1 (one) time each day in the morning. 30 tablet 0 Eliquis 5 MG tablet Take 1 tablet (5 mg total) by mouth 2 (two) times a day. 180 tablet 1 escitalopram (Lexapro) 20 MG tablet Take 1 tablet (20 mg total) by mouth 1 (one) time each day. 30 tablet 2 No current facility-administered medications for this visit. Physical Exam (Video Visit only) Constitutional: Appearance: Normal appearance. Neurological: Mental Status: She is alert and oriented to person, place, and time. Psychiatric: Mood and Affect: Mood normal. Behavior: Behavior normal. Visit Vitals BP 138/82 Ht 1.626 m (5' 4 ) Wt 85.7 kg (189 lb) BMI 32.44 kg/m?? Cardiac Testing Imaging Echo, Adult Transthoracic Complete Result Date: 08/17/2022 Left Ventricle: The left ventricular systolic function is normal.The LVEF is visually estimated at 50 - 55%. The septal wall is akinetic. The septal motion is most consistent with a conduction abnormality. In the two chamber view, cannot exclude the presence of an outpouching at the apical inferiorwall. Suggest repeat echocardiography with contrast or cardiac MR to evaluate for possible aneurysmal formation in this region. Labs Lab Results Component Value Date HGB 14.6 08/20/2022 HCT 42.9 08/20/2022 PLT 302 08/20/2022 ALT 16 08/15/2022 AST 22 08/15/2022 NA 139 08/18/2022 K 3.9 08/18/2022 CREATININE 0.92 08/18/2022 BUN 14 08/18/2022 CO2 27 08/18/2022 TSH 2.36 08/07/2022 INR 1.0 08/07/2022 Assessment and Plan 1. CAD -s/p ISRS of LAD -AMY placed to mid LAD 2018 -asymptomatic and doing well -Continue Aspirin BB and repatha. -Requesting Labs per her PCP- Previously took statin with Repatha and need to make sure we don't need to put her back on statin 2. PAF -Continue f/u with EP -Rate controlled with BB -Anticoagulated with Eliquis for CHADS-VASC score of 3 3. Hyperlipidemia -Awaiting results from lipid panel -Continue Repatha, will verify that she is at goal with just PCSK9 4. HTN -BP WNL -Continue current medications Reviewed CMR that ruled out possible apical outpouching/aneurysm. No further cardiac Testing Follow-up in 6 months A total time of 20 minutes was spent addressing the current illness, reviewing records (prior imaging, lab work, etc), and formulating a plan. The patient is agreeable to the plan and all pertinent questions were answered. Acacia Scott APRN documented in this encounter Plan of Treatment Upcoming Encounters Date Type Department Care Team (Late st Contact Info) Description 03/30/2025 2:00 PM EDT Office Visit [facility] [place] [address] [facility] [facility], [address] [place] [address] Acacia Scott APRN [address] [place] [address] Scheduled Procedures Name Priority Associated Diagnoses Date/Ti me ARTHROPLASTY, HIP, TOTAL Arthritis of right hip documented as of this encounter Visit Diagnoses Diagnosis ASCVD (arteriosclerotic cardiovascular disease)- Primary Unspecified cardiovascular disease Paroxysmal atrial fibrillation (CMS/HCC) Atrial fibrillation Primary hypertension Unspecified essential hypertension Mixed hyperlipidemia documented in this encounter Additional Health Concerns Assessment Noted Time A fall risk assessment has been complete d for the patient 12/26/2022 12:47 PM EST A Body Mass Index follow-up plan has been documented for the patient 12/26/2022 1:45 PM EST documented as of this encounter Care Teams Project Accountant Relationship Specialty Start Date End Date Michael Baez MD [address] [place] [address] PCP - General 04/08/21 Acacia Scott APRN [address] [place] [address] Nurse Practitioner Cardiology 03/27/22 documented as of this encounter
--- OUTSIDE RECORDS SUMMARY | 2024-10-13 13:25 | XMS_ITS | Encounter Summary ---
Author Organization Healthcare Address [address] [place] [address] Care Team Providers Care Hims Coder Name Role Phone Michael Baez MD Primary Care Provider + [phone] Acacia Scott REPAIRER ART OBJECTS Unavailable [phone] Encounter Details Date Type Department Care Team (Late st Contact Info) Description 02/22/2024 Telephone [facility] [place] [address] [place] [address] Inna Barnes, RN [facility] Social History Tobacco Use Types Packs/Day Years Used Date Smoking Tobacco: Former Cigarettes Q uit: 12/2022 Smokeless Tobacco: Never Alcohol Use Standard [...] drink first t pippa in the morning (EYE-BUILDER BEAM) to steady your nerves or to get [...] Description 03/30/2025 2:00 PM EDT Office Visit [facility] [place] [address] [facility], [address] [place] [address] Acacia Scott APRN [address] [place] [address] Scheduled Procedures Name Priority Associated Diagnoses Date/Ti me ARTHROPLASTY, HIP, TOTAL Arthritis of right hip documented as of this encounter Visit Diagnoses Not on filedocumented in this encounter Additional Health Concerns Assessment Noted Time A fall risk assessment has been complete d for the patient 12/26/2022 12:47 PM EST A Body Mass Index follow-up plan has been documented for the patient 10/11/2023 10:41 PM EST documented as of this encounter Care Teams Hims Coder Relationship Specialty Start Date End Date Michael Baez MD [address] [place] [address] PCP - General 04/08/21 Acacia Scott APRN [address] [place] [phone] Nurse Practitioner Cardiology 03/27/22 documented as of this encounter
--- OUTSIDE RECORDS SUMMARY | 2024-10-13 13:25 | XMS_ITS | Encounter Summary ---
Author Organization Healthcare Address [address] [place] [address] Care Team Providers Care Neon Sign Maker Name Role Phone Michael Baez MD Primary Care Provider + [phone] Acacia Scott INSULATION HOSEMAN Unavailable [phone] Encounter Details Date Type Department Care Team (Late st Contact Info) Description 12/13/2022 Telephone [facility] [address] [place] [address] Amina Foote, RN [facility] Social History Tobacco Use Types Packs/Day Years [...] drink first t pippa in the morning (EYE-FINANCIAL SERVICES EDUCATION CONSULTANT) to steady your nerves or to get [...] Description 03/30/2025 2:00 PM EDT Office Visit [facility] [place] [address] [facility], [address] [place] [address] Acacia Scott APRN [address] [place] [address] Scheduled Procedures Name Priority Associated Diagnoses Date/Ti me ARTHROPLASTY, HIP, TOTAL Arthritis of right hip documented as of this encounter Visit Diagnoses Not on filedocumented in this encounter Additional Health Concerns Assessment Noted Time A fall risk assessment has been complete d for the patient 11/03/2022 8:37 AM EST documented as of this encounter Care Teams Neon Sign Maker Relationship Specialty Start Date End Date Michael Baez MD [address] [facility] [address] [place] [address] PCP - General 04/08/21 Acacia Scott APRN [address] [place] [address] Nurse Practitioner Cardiology 03/27/22 documented as of this encounter
--- OUTSIDE RECORDS SUMMARY | 2024-10-13 13:25 | XMS_ITS | Encounter Summary ---
Author Organization Healthcare Address [address] [place] [address] Care Team Providers Care Roving Sizer Name Role Phone Michael Baez MD Primary Care Provider + [phone] Acacia Scott TAG WRITER Unavailable [phone] Encounter Details Date Type Department Care Team (Latest Contact Info) Description 12/13/2022 Travel Social History Tobacco Use Types Packs/Day [...] drink first t pippa in the morning (EYE-AGRICULTURAL ECONOMIST) to steady your nerves or to get [...] suspected to have Coronavirus/COVID-19? No / Unsure 12/13/2022 2:46 PM EST documented as of this encounter Plan of Treatment Upcoming Encounters Date Type Department Care Team (Late st Contact Info) Description 03/30/2025 2:00 PM EDT Office Visit [facility] [place] [address] [facility], [address] [place] [address] Acacia Scott APRN [address] [place] [address] Scheduled Procedures Name Priority Associated Diagnoses Date/Ti me ARTHROPLASTY, HIP, TOTAL Arthritis of right hip documented as of this encounter Visit Diagnoses Not on filedocumented in this encounter Additional Health Concerns Assessment Noted Time A fall risk assessment has been complete d for the patient 11/03/2022 8:37 AM EST documented as of this encounter Care Teams Roving Sizer Relationship Specialty Start Date End Date Michael Baez MD [facility] [address] [place] [address] PCP - General 04/08/21 Acacia Scott APRN [address] [place] [address] Nurse Practitioner Cardiology 03/27/22 documented as of this encounter
--- OUTSIDE RECORDS SUMMARY | 2024-10-13 13:25 | XMS_ITS | Encounter Summary ---
Author Organization Healthcare Address [address] [place] [address] Care Team Providers Care Microbiology Instructor Name Role Phone Michael Baez MD Primary Care Provider + [phone] Acacia Scott SENIOR RESEARCH EXECUTIVE Unavailable [phone] Encounter Details Date Type Department Care Team (Late st Contact Info) Description 12/21/2022 Telephone [facility] [address] [place] [address] Amina Foote, RN [facility]NOST[facility] RADIOLOGY Social History [...] drink first t pippa in the morning (EYE-DOOR INSTALLER) to steady your nerves or to [...] Upcoming Encounters Date Type Department Care Team ([facility] st Contact Info) Description 03/30/2025 2:00 PM EDT Office Visit [facility] [place] [address] [facility], [address] [place] [address] Acacia Scott APRN [address] [place] [address] Scheduled Procedures Name Priority Associated Diagnoses Date/Ti me ARTHROPLASTY, HIP, TOTAL Arthritis of right hip documented as of this encounter Visit Diagnoses Not on filedocumented in this encounter Additional Health Concerns Assessment Noted Time A fall risk assessment has been complete d for the patient 11/03/2022 8:37 AM EST documented as of this encounter Care Teams Microbiology Instructor Relationship Specialty Start Date End Date Michael Baez MD [address] [place] [address] PCP - General 04/08/21 Acacia Scott APRN [address] [place] [address] Nurse Practitioner Cardiology 03/27/22 documented as of this encounter
--- OUTSIDE RECORDS SUMMARY | 2024-10-13 13:25 | XMS_ITS | Encounter Summary ---
Author Organization [facility] Address [address] [place] [address] Care Team Providers Care Weed Inspector Name Role Phone Michael Baez MD Primary Care Provider + [phone] Acacia Scott VISUAL COORDINATOR Unavailable [phone] Reason for Visit * Reason Onset Date Comments Med Refill 08/31/2023 Encounter Details Date Type Department Care Team (Late st Contact Info) Description 08/31/2023 Refill [facility] [place] [address] [facility], [address] [place] [address] Acacia Scott, VISUAL COORDINATOR [address] [place] [address] Social History Tobacco Use Types [...] drink first t pippa in the morning (EYE-SEASONAL CUSTOMER SERVICE ASSOCIATE) to steady your nerves or to get [...] Description 03/30/2025 2:00 PM EDT Office Visit [facility] [place] [address] [facility], [address] [place] [address] Acacia Scott APRN [address] [place] [address] Scheduled Procedures Name Priority Associated [...] documented as of this encounter Care Teams Weed Inspector Relationship Specialty Start Date End Date Michael Baez MD [address] [place] [address] PCP - General 04/08/21 Acacia Scott APRN [address] [place] [address] Nurse Practitioner Cardiology 03/27/22 documented as of this encounter
--- OUTSIDE RECORDS SUMMARY | 2024-10-13 13:25 | XMS_ITS | Encounter Summary ---
Author Organization Healthcare Address [address] [place] [address] Care Team Providers Care Dressage Instructor Name Role Phone Michael Baez MD Primary Care Provider + [phone] Acacia Scott BOWLING BALL FINISHER Unavailable [phone] Encounter Details Date Type Department Care Team (Late st Contact Info) Description 02/26/2023 Telephone [facility] [place] [address] [place] [address] Inna Barnes, RN [facility] Social History Tobacco Use Types Packs/Day Years [...] drink first t pippa in the morning (EYE-MODEL ENGINE MECHANIC) to steady your nerves or to get [...] Upcoming Encounters Date Type Department Care Team ([facility] st Contact Info) Description 03/30/2025 2:00 PM EDT Office Visit [facility] [place] [address] [facility], [address] [place] [address] Acacia Scott APRN [address] [place] [address] Scheduled Procedures Name Priority Associated [...] documented as of this encounter Care Teams Dressage Instructor Relationship Specialty Start Date End Date Michael Baez MD [address] [facility] [address] [place] [address] PCP - General 04/08/21 Acacia Scott APRN [address] [place] [id number] Nurse Practitioner Cardiology 03/27/22 documented as of this encounter
--- OUTSIDE RECORDS SUMMARY | 2024-10-13 13:25 | XMS_ITS | Encounter Summary ---
Author Organization Healthcare Address [address] [place] [address] Care Team Providers Care Leveler Helper Name Role Phone Micheal Baez MD Primary Care Provider + [phone] Acacia Scott SPAR MACHINE OPERATOR Unavailable Reason for Visit * Imaging (Routine) - Closed Specialty Diagnoses / Procedures Referred By Contac shanice Referred To Contact Cardiology Diagnoses Shortness of breath Procedures NM Myocardial Perfusion Stress Test Acacia Scott, SPAR MACHINE OPERATOR [address] [place] [address] Phone: tel: fax: Referral ID Status Reason Start Date Expiration Date Visits Re quested Visits Authorized [id number] Closed 02/26/2023 08/27/2024 1 1 Encounter Details Date Type Department Care Team (Latest Contact Info) Description 03/06/2023 12:51 PM EDT - 03/06/2023 11:59 PM EDT Hospital Encounter Cardiac Imaging [address] [place] [address] Discharge Disposition: Home or Self Care Social [...] drink first t pippa in the morning (EYE-CARROT TIER) to steady your nerves or to get [...] suspected to have Coronavirus/COVID-19? No / Unsure 03/06/2023 12:50 PM EDT documented as of this encounter Medications at Time of Discharge albuterol 108 (90 Base) MCG/ACT inhaler Inhale 2 puffs every 4 (four) hours if needed. 02/05/2020 aspirin 81 MG chewable tablet Chew 1 tablet (81 mg) 1 (one) time each day in the morning. bisoprolol (Zebeta) 5 MG tablet Take 1 tablet (5 mg total) by mouth 1 (one) time each day in the morning. 30 tablet 08/26/2022 Breztri Aerosphere 160-9-4.8 MCG/ACT aerosol Inhale 1 puff 2 (two) times a day. 08/14/2022 buPROPion XL (Wellbutrin XL) 300 MG 24 hr tablet Take 1 tablet (300 mg) by mouth 1 (one) time each day in the morning. 07/18/2022 cetirizine (ZyrTEC) 10 MG tablet Take 1 tablet (10 mg total) by mouth every night. 30 tablet 11 08/26/2022 Combivent Respimat 20-100 MCG/ACT inhaler Inhale 1 puff 4 (four) times a day. 01/11/2021 escitalopram (Lexapro) 20 MG tablet Take 1 tablet (20 mg total) by mouth 1 (one) time each day. 30 tablet 2 08/27/2022 famotidine (Pepcid) 20 MG tablet Take 1 tablet (20 mg) by mouth 2 (two) times a day if needed. 08/15/2021 fluticasone (Flonase) 50 MCG/ACT nasal spray Administer 1 spray into each nostril 1 (one) time each day. 11/06/2022 furosemide (Lasix) 20 MG tablet Take 1 tablet (20 mg total) by mouth 1 (one) time each day. 30 tablet 11 08/27/2022 ipratropium-albu terol (Duo-Neb) 0.5-2.5 mg/3 mL nebulizer solution Take 3 mL by nebulization every 6 (six) hours if needed. 06/16/2022 losartan (Cozaar) 25 MG tablet Take 1 [...] (15 mg) by mouth every night. 08/14/2022 Evolocumab (Repatha SureClick) 140 MG/ML solution auto-injector Inject 140 mg as directed every 14 (fourteen) days. Inject 140mg (1 pen) sub-q every 2 weeks 6 mL 1 11/06/2022 3 Eliquis 5 MG tablet Take 1 tablet (5 mg total) by mouth 2 (two) times a day. 180 tablet 1 01/25/2023 3 EPINEPHrine (Epipen) 0.3 MG/0.3ML injection syringe Inject 1 Syringe into the muscle if needed for anaphylaxis. Inject into upper leg. Call 911 after use. 3 methocarbamol (Robaxin) 500 MG tablet Take 1 tablet (500 mg total) by mouth at night if needed for muscle spasms. 15 tablet 12/22/2022 4 documented as of this encounter Plan of Treatment Upcoming Encounters Date Type Department Care Team (Late st Contact Info) Description 03/30/2025 2:00 PM EDT Office Visit [facility] [place] [address] [facility], [address] [place] [address] Acacia Scott, SPAR MACHINE OPERATOR [address] [place] [address] Scheduled Procedures Name Priority Associated Diagnoses Date/Ti me ARTHROPLASTY, HIP, TOTAL Arthritis of right hip documented as of this encounter Procedures Procedure Name Priority Date/Time Associated Diagnosis Comments NM MYOCARDIAL SPECT REGADENOSON STRESS (MULTI STUDY) Routine 03/06/2023 2:54 PM EDT Shortness of breath documented in this encounter Visit Diagnoses Not on filedocumented in this encounter Administered Medications Inactive Administered Medications - up to 3 most recent administrations Medication Order MAR Action Action Date Dose Rate Site aminophylline injection 75 mg 75 mg, Intravenous, Once, 1 dose, On Sun03/06/23 at 1500, Routine Given 03/06/2023 2:14 PM EDT 75 mg regadenoson (Lexiscan) injection 0.4 mg 0.4 mg, Intravenous, Once, 1 dose, On Sun03/06/23 at 1400, Routine Given 03/06/2023 2:11 PM EDT 0.4 mg technetium Tc-99m sestamibi (Cardiolite) radio-isotope injection 19.3 millicurie 19.3 millicurie, Intravenous, Once, 1 dose, On Sun03/06/23 at 1545, Routine Given 03/06/2023 3:27 PM EDT 19.3 millicuries documented in this encounter Additional Health Concerns Assessment Noted Time A fall risk assessment has been complete d for the patient 12/26/2022 12:47 PM EST A Body Mass Index follow-up plan has been documented for the patient 12/26/2022 1:45 PM EST documented as of this encounter Care Teams Leveler Helper Relationship Specialty Start Date End Date Michael Baez MD [address] [place] [address] PCP - General 04/08/21 Acacia Scott APRN [address] [place] [phone] Nurse Practitioner Cardiology 03/27/22 documented as of this encounter
--- OUTSIDE RECORDS SUMMARY | 2024-10-13 13:25 | XMS_ITS | Encounter Summary ---
Author Organization Healthcare Address [address] [place] [address] Care Team Providers Care Sample Tester Name Role Phone Michael Baez MD Primary Care Provider + [phone] Acacia Scott CHILDCARE DIRECTOR Unavailable [phone] Encounter Details Date Type Department Care Team (Late st Contact Info) Description 12/19/2022 Telephone [facility] [address] [place] [address] Amina Foote, RN [facility]-DIAGNOSTIC RADIOLOGY Social History [...] drink first t pippa in the morning (EYE-TOOTH CUTTER CLUTCH) to steady your nerves or to get [...] Upcoming Encounters Date Type Department Care Team ([facility] st Contact Info) Description 03/30/2025 2:00 PM EDT Office Visit [facility] [place] [address] [facility], [address] [place] [address] Acacia Scott APRN [address] [place] [address] Scheduled Procedures Name Priority Associated Diagnoses Date/Ti me ARTHROPLASTY, HIP, TOTAL Arthritis of right hip documented as of this encounter Visit Diagnoses Not on filedocumented in this encounter Additional Health Concerns Assessment Noted Time A fall risk assessment has been complete d for the patient 11/03/2022 8:37 AM EST documented as of this encounter Care Teams Sample Tester Relationship Specialty Start Date End Date Michael Baez MD [address] [place] [address] PCP - General 04/08/21 Acacia Scott APRN [address] [place] [address] Nurse Practitioner Cardiology 03/27/22 documented as of this encounter
--- OUTSIDE RECORDS SUMMARY | 2024-10-13 13:25 | XMS_ITS | Encounter Summary ---
Author Organization Healthcare Address [address] [place] [address] Care Team Providers Care Leather Seasoner Name Role Phone Michael Baez MD Primary Care Provider + [phone] Acacia Scott FLEET SALES MANAGER Unavailable [phone] Encounter Details Date Type Department Care Team (Late st Contact Info) Description 11/22/2023 [facility] [place] [address] [facility], [address] [place] [address] Acacia Scott, FLEET SALES MANAGER [address] [place] [address] Social History Tobacco Use Types [...] drink first t pippa in the morning (EYE-JERSEY KNITTER) to steady your nerves or to get [...] Upcoming Encounters Date Type Department Care Team ([facility] st Contact Info) Description 03/30/2025 2:00 PM EDT Office Visit [facility] [place] [address] [facility], [address] [place] [address] Acacia Scott APRN [address] [place] [address] Scheduled Procedures Name Priority Associated [...] documented as of this encounter Care Teams Leather Seasoner Relationship Specialty Start Date End Date Michael Baez MD [address] [place] [address] PCP - General 04/08/21 Acacia Scott APRN [address] [place] [address] Nurse Practitioner Cardiology 03/27/22 documented as of this encounter
--- OUTSIDE RECORDS SUMMARY | 2024-10-13 13:25 | XMS_ITS | Encounter Summary ---
Author Organization Healthcare Address [address] [place] [address] Care Team Providers Care Wood Window And Door Craftsman Name Role Phone Michael Baez MD Primary Care Provider + [phone] Acacia Scott PAINT SPRAYER SANDBLASTER Unavailable [phone] Encounter Details Date Type Department Care Team (Latest Contact Info) Description 02/27/2023 Travel Social History Tobacco Use Types Packs/Day [...] drink first t pippa in the morning (EYE-MANAGER AVIATION) to steady your nerves or to get [...] suspected to have Coronavirus/COVID-19? No / Unsure 02/27/2023 12:04 PM EDT documented as of this encounter Plan of Treatment Upcoming Encounters Date Type Department Care Team (Late st Contact Info) Description 03/30/2025 2:00 PM EDT Office Visit [facility] [place] [address] [facility], [address] [place] [address] Acacia Scott APRN [address] [place] [address] Scheduled Procedures Name Priority Associated [...] documented as of this encounter Care Teams Wood Window And Door Craftsman Relationship Specialty Start Date End Date Michael Baez MD [address] [place] [address] PCP - General 04/08/21 Acacia Scott APRN [address] [place] [phone] Nurse Practitioner Cardiology 03/27/22 documented as of this encounter
--- OUTSIDE RECORDS SUMMARY | 2024-10-13 13:25 | XMS_ITS | Encounter Summary ---
Author Organization [facility] Address [address] [id number] Care Team Providers Care Balance And Hairspring Assembler Name Role Phone Michael Baez MD Primary Care Provider + [phone] Acacia Scott APRN Unavailable [phone] Reason for Referral * Imaging (Routine) - Closed Specialty Diagnoses / Procedures Referred By Contac t Referred To Contact Radiology Diagnoses Lumbar spondylosis Intervertebral disc disorders with radiculopathy, lumbar region Procedures MR Lumbar Spine wo IV Contrast Amelia Ocampo APRN, DNP [address] [address] Phone: tel: fax: Referral ID Status Reason Start Date Expiration Date Visits Re quested Visits Authorized [id number] Closed 11/03/2022 05/04/2024 1 1 Reason for Visit * Imaging (Routine) - Closed Specialty Diagnoses / Procedures Referred By Contac t Referred To Contact Radiology Diagnoses Lumbar spondylosis Intervertebral disc disorders with radiculopathy, lumbar region Procedures MR Lumbar Spine wo IV Contrast Amelia Ocampo APRN, DNP [address] [address] Phone: tel: fax: Referral ID Status Reason Start Date Expiration Date Visits Re quested Visits Authorized [id number] Closed 11/03/2022 05/04/2024 1 1 Encounter Details Date Type Department Care Team (Latest Contact Info) Description 12/22/2022 8:45 AM EST - 12/22/2022 11:59 PM EST Hospital Encounter [facility] Radiology [address] [place] [address] Lumbar spondylosis; Intervertebral disc disorders with radiculopathy, lumbar region Discharge Disposition: Home or Self Care Social [...] drink first t pippa in the morning (EYE-SUPERVISOR PUBLICATIONS) to steady your nerves or to get [...] AM EST documented as of this encounter Medications at [...] (two) times a day. 180 tablet 1 06/26/2022 3 EPINEPHrine (Epipen) 0.3 MG/0.3ML injection syringe [...] Description 03/30/2025 2:00 PM EDT Office Visit [facility] [place] [address] [facility], [address] [place] [address] Acacia Scott, REMOTE SENSING RESEARCH SCIENTIST [address] [place] [address] Scheduled Procedures Name Priority Associated Diagnoses Date/Ti me ARTHROPLASTY, HIP, TOTAL Arthritis of right hip documented as of this encounter Procedures Procedure Name Priority Date/Time Associated Diagnosis Comments MR LUMBAR SPINE WO IV CONTRAST Routine 12/22/2022 10:23 AM EST Lumbar spondylosis Intervertebral disc disorders with radiculopathy, lumbar region documented in this encounter Results * MR Lumbar Spine wo IV Contrast (12/22/2022 10:23 AM EST) Anatomical Region Laterality Modality L-spine Magnetic Resonan ce Impressions 12/22/2022 4:29 PM EST Multilevel degenerative changes of the lumbar spine, greatest at the L3-L4 level with moderate to severe left neural foraminal stenosis. Unchanged mild anterolisthesis of L4 on L5. Multilevel facet hypertrophy and severe endplate degenerative changes at L2-L3 and L5-S1, as described above. CRITICAL RESULT: ?? No. COMMUNICATION: Per this written report. Approved by Nitin Gonzalez DO on 12/22/2022 10:41 AM By electronically signing this report, I, the attending physician, attest that I have personally reviewed the images/data for the above examination(s) and agree with the final edited report. Dictated by Nitin Gonzalez DO on 12/22/2022 10:41 AM Signed by Bert Vann MD on 12/22/2022 4:29 PM Narrative 12/22/2022 4:29 PM EST Exam/Procedure: MR LUMBAR SPINE WO IV CONTRAST ordered by AMELIA OCAMPO, [id number] CLINICAL INDICATION: Low back pain, > 6 wks TECHNIQUE: Multiplanar multiecho sequences were obtained through the lumbar spine utilizing T1 and T2 weighting without the administration of intravenous contrast. 6 series were obtained including localizer series. COMPARISON: Lumbar spine radiographs November 03, 2022. CT lumbar spine August 07, 2022. FINDINGS: Diagnostic Quality: Adequate. Anatomic Variants: None. Alignment: Minimal retrolisthesis of L2 on L3. Minimal anterolisthesis of L3 on L4. Mild anterolisthesis of L4 on L5. Marrow: Moderate degenerative endplate changes of L2-L3 and L5-S1 with T1 and T2 hyperintense fatty marrow changes compatible with Modic type II endplate changes. Vertebrae and Intervertebral Discs: Vertebral body heights are maintained. Moderate disc height loss at L2-L3 and L5-S1. Multilevel disc dehydration. Ligaments: The anterior and posterior longitudinal ligaments and interspinous ligaments are intact. Conus: The conus is of normal caliber without abnormal intrinsic signal. The conus terminates at the L1-L2 disc level. Degenerative changes are as follows: T12-L1: Mild bilateral facet arthropathy. No significant spinal canal or neural foraminal stenosis. L1-L2: Moderate diffuse disc bulge with superimposed tiny central disc protrusion. Small focus of T2 hyperintensity within the posterior disc likely representing a small annular tear. Mild bilateral facet hypertrophy. Minimal spinal canal stenosis. No significant neural foraminal stenosis. L2-L3: Mild to moderate diffuse disc bulge. Moderate bilateral facet hypertrophy. Mild bilateral ligamentum flavum hypertrophy. Mild spinal canal stenosis. Mild to moderate right and mild left neural foraminal stenosis. L3-L4: Mild diffuse disc bulge. Moderate to severe bilateral facet hypertrophy. Mild ligamentum flavum hypertrophy, left greater than right. No significant spinal canal stenosis. Minimal right and moderate to severe left neural foraminal stenosis. L4-L5: Mild diffuse disc bulge. Moderate to severe bilateral facet hypertrophy. Moderate left ligamentum flavum thickening. Mild spinal canal stenosis. Moderate bilateral neural foraminal stenosis. L5-S1: Mild diffuse disc bulge. Moderate bilateral facet hypertrophy. Mild ligamentum flavum hypertrophy. No significant spinal canal stenosis. [id number] bilateral neural foraminal stenosis. Prevertebral and Paraspinal Soft Tissues: There is no prevertebral or paraspinal soft tissue swelling or mass. Other Findings: None. Procedure Note Bert Stauffer MD - 12/22/2022 Exam/Procedure: MR LUMBAR SPINE WO IV CONTRAST ordered by AMELIA PHELPS, [id number] CLINICAL INDICATION: Low back pain, > 6 wks TECHNIQUE: Multiplanar multiecho sequences were obtained through the lumbar spineutilizing T1 and T2 weighting without the administration of intravenouscontrast. 6 series were obtained including localizer series. COMPARISON: Lumbar spine radiographs November 03, 2022. CT lumbar spine August 07, 2022. FINDINGS: Diagnostic Quality: Adequate. Anatomic Variants: None. Alignment: Minimal retrolisthesis of L2 on L3. Minimal anterolisthesis ofL3 on L4. Mild anterolisthesis of L4 on L5. Marrow: Moderate degenerative endplate changes of L2-L3 and L5-S1 with T1and T2 hyperintense fatty marrow changes compatible with Modic type IIendplate changes. Vertebrae and Intervertebral Discs: Vertebral body heights are maintained.Moderate disc height loss at L2-L3 and L5-S1. Multilevel disc dehydration. Ligaments: The anterior and posterior longitudinal ligaments andinterspinous ligaments are intact. Conus: The conus is of normal caliber without abnormal intrinsic signal.The conus terminates at the L1-L2 disc level. Degenerative changes are as follows: T12-L1: Mild bilateral facet arthropathy. No significant spinal canal orneural foraminal stenosis. L1-L2: Moderate diffuse disc bulge with superimposed tiny central discprotrusion. Small focus of T2 hyperintensity within the posterior disclikely representing a small annular tear. Mild bilateral facethypertrophy. Minimal spinal canal stenosis. No significant neuralforaminal stenosis. L2-L3: Mild to moderate diffuse disc bulge. Moderate bilateral facethypertrophy. Mild bilateral ligamentum flavum hypertrophy. Mild spinalcanal stenosis. Mild to moderate right and mild left neural foraminalstenosis. L3-L4: Mild diffuse disc bulge. Moderate to severe bilateral facethypertrophy. Mild ligamentum flavum hypertrophy, left greater than right.No significant spinal canal stenosis. Minimal right and moderate to severeleft neural foraminal stenosis. L4-L5: Mild diffuse disc bulge. Moderate to severe bilateral facethypertrophy. Moderate left ligamentum flavum thickening. Mild spinal canalstenosis. Moderate bilateral neural foraminal stenosis. L5-S1: Mild diffuse disc bulge. Moderate bilateral facet hypertrophy. Mildligamentum flavum hypertrophy. No significant spinal canal stenosis.[id number] bilateral neural foraminal stenosis. Prevertebral and Paraspinal Soft Tissues: There is no prevertebral orparaspinal soft tissue swelling or mass. Other Findings: None. IMPRESSION: Multilevel degenerative changes of the lumbar spine, greatest at the L3-A9leuqz with moderate to severe left neural foraminal stenosis. Unchangedmild anterolisthesis of L4 on L5. Multilevel facet hypertrophy and severeendplate degenerative changes at L2-L3 and L5-S1, as described above. CRITICAL RESULT: No. COMMUNICATION: Per this written report. Approved by Nitin Gonzalez DO on 12/22/2022 10:41 AM By electronically signing this report, I, the attending physician, attestthat I have personally reviewed the images/data for the aboveexamination(s) and agree with the final edited report. Dictated by Nitin Gonzalez DO on 12/22/2022 10:41 AM Signed by Bert Vann MD on 12/22/2022 4:29 PM us Amelia Ocampo APRN, ERIBERTO IMG MRI PROCEDURES F inal Result documented in this encounter Visit Diagnoses Diagnosis Lumbar spondylosis Lumbosacral spondylosis without myelopathy Intervertebral disc disorders with radiculopathy, lumbar region documented in this encounter Additional Health Concerns Assessment Noted Time A fall risk assessment has been complete d for the patient 12/22/2022 11:06 AM EST A Body Mass Index follow-up plan has been documented for the patient 12/22/2022 2:41 PM EST documented as of this encounter Care Teams Balance And Hairspring Assembler Relationship Specialty Start Date End Date Michael Baez MD [address] [place] [address] PCP - General 04/08/21 Acacia Scott APRN [address] [place] [phone] Nurse Practitioner Cardiology 03/27/22 documented as of this encounter
--- OUTSIDE RECORDS SUMMARY | 2024-10-13 13:25 | XMS_ITS | Encounter Summary ---
Author Organization Healthcare Address [address] [place] [address] Care Team Providers Care Cruller Maker Name Role Phone Michael Baez MD Primary Care Provider + [phone] Acacia Scott CARTON WAXING MACHINE OPERATOR Unavailable [phone] Encounter Details Date Type Department Care Team (Late st Contact Info) Description 12/26/2022 Telephone [facility] [address] [place] [address] Aemlia Bee, CARTON WAXING MACHINE OPERATOR, DNP [address] [facility] [address] [place] [address] Social History Tobacco Use Types [...] drink first t pippa in the morning (EYE-VISUAL ARTS TEACHER) to steady your nerves or to [...] encounter Miscellaneous Notes * Telephone Encounter - Shahid Brennan - 12/26/2022 1:42 PM EST Approved today Methocarbamol 500MG tablets Approved. This drug has been approved under the [facility] Part D benefit. Approved quantity: 15 units per 15 day(s). You may fill up to a 90 day supply except for those on Specialty Tier 5, which can be filled up to a 30 day supply. Please call thepharmacy to process the prescription claim. I have not been able to reach the patient phone is not working. * Telephone Encounter - Shahid Brennan - 12/26/2022 1:34 PM EST Submitted this morning pending review with plan documented in this encounter Plan of Treatment Upcoming Encounters Date Type Department Care Team (Late st Contact Info) Description 03/30/2025 2:00 PM EDT Office Visit [facility] [place] [address] [facility], [address] [place] [address] Acacia Scott, CARTON WAXING MACHINE OPERATOR [address] [place] [address] Scheduled Procedures Name Priority Associated [...] documented as of this encounter Care Teams Cruller Maker Relationship Specialty Start Date End Date Michael Baez MD [address] [place] [address] PCP - General 04/08/21 Acacia Scott APRN [address] [place] [phone] Nurse Practitioner Cardiology 03/27/22 documented as of this encounter
--- OUTSIDE RECORDS SUMMARY | 2024-10-13 13:25 | XMS_ITS | Encounter Summary ---
Author Organization Healthcare Address [address] [place] [address] Care Team Providers Care Inside Trucker Name Role Phone Michael Baez MD Primary Care Provider + [phone] Acacia Scott APRN Unavailable [phone] Encounter Details Date Type Department Care Team (Late st Contact Info) Description 12/22/2022 11:30 AM EST Office Visit [facility] [address] [place] [address] Amelia Bee, GENERAL MERCHANDISE MANAGER, DNP [address] [place] [address] Lumbar spondylosis (Primary Dx); Intervertebral disc disorders with radiculopathy, lumbar region; Sacroiliac joint pain; Facet arthritis of lumbar region Social History Tobacco Use Types Packs/Day Years [...] drink first t pippa in the morning (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-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) to steady your nerves or to get [...] Sign Reading Time Taken Comments Blood Pressure 126/85 12/22/2022 11:04 AM EST Pulse 85 12/22/2022 11:04 AM EST Temperature - - Respiratory Rate - - Oxygen Saturation 90% 12/22/2022 11:04 AM EST Inhaled Oxygen Concentration - - Weight 81.6 kg (180 lb) 12/22/2022 11:04 AM EST Height 162.6 cm (5' 4 ) 12/22/2022 11:04 AM EST Body Mass Index 30.9 12/22/2022 11:04 AM EST documented in this encounter Miscellaneous Notes * Progress Notes - Amelia Bee, GENERAL MERCHANDISE MANAGER, DNP - 12/22/2022 11:30 AM EST We had the pleasure of seeing your patient in our clinic today for continued Neurosurgical evaluation. Chief Complaint Follow-up after MRI History Of Present Illness Supriya Andres is a 72 y.o. female with a history of chronic low back pain returning today after completion of updated MRI of the lumbar spine which was completed earlier today. She was initially seen in neurosurgery clinic 11/03/2022 after an emergency department visit for an exacerbation of back pain after severe coughing episode, COPD exacerbations which had been ongoing since July 2022. Emergent evaluation revealed a chronic T7 compression fracture, no acute fractures, and did not require any intervention. At her follow-up visit, she had been complaining increase in her low back pain as well as lower extremity symptoms specifically into the left groin, posterior leg to the knee, at times medial thigh to the knee and 1 week of right low back and groin pain. Since her last visit, the right-sided symptoms have worsened. She has an increase in right low back, buttock pain with radiation into the groin, occasional posterior thigh to the knee. This is currently more severe thanher left-sided symptoms. Continues to have pain limited weakness. No paresthesias, bowel bladder incontinence. Rates pain today as a 9/10. Is having difficulty sleeping. She is unable to sleep in a bed as it does not provide enough lumbar support. She ends up sleeping in a recliner, but is only able to sleep therefore approximately 3 hours at a time. She was to follow up with Dr. Sharma whom she has been receiving injections from for some time, last around April 2022. She was scheduled for an additional injection, but this had to be canceled related to denial from insurance. Pending follow-up next week for further discussion. She has been continuing with physical therapy, home health once per week since around August 2022. She does exercises in between visits mostly consisting of stretching exercises, leg strengthening, and ambulation. She has multiple comorbidities including CAD, COPD, atrial fibrillation on Eliquis, sleep apnea. She is status post CABG and stent placement. Earlier this week she underwent a CMR as ordered by her cardiology provider for further characterization for a possible apical outpouching which was noted onecho during a recent hospitalization in the fall. Pending follow-up to review results. Past Medical History She has a past medical history of Asthma, Atrial fibrillation ([facility]), COPD (chronic obstructive pulmonary disease) ([facility]), Gastroesophageal reflux disease without esophagitis, Hypercholesteremia, Hypertension, Obstructive sleep apnea (adult) (pediatric), Old myocardial infarction, and Restless leg syndrome. Surgical History She has a past surgical history that includes Total knee arthroplasty (N/A); cath stent placement/ cath placement of stent (N/A); Coronary artery bypass graft (N/A); Hysterectomy (N/A); Biliary drainage (N/A); and Colon surgery (N/A). Family History Family History Problem Relation Name Age of Onset Coronary artery disease Mother Coronary artery disease Father Social History She reports that she has been smoking cigarettes. She has been smoking an average of .25 packs per day. She has never used smokeless tobacco. She reports [...] (two) times a day. 180 tablet 1 EPINEPHrine (Epipen) 0.3 MG/0.3ML injection syringe Inject [...] (one) time each day. 90 tablet 3 montelukast (Singulair) 10 MG tablet omalizumab (Xolair) [...] day in the morning. 30 tablet 0 escitalopram (Lexapro) 20 MG tablet Take 1 tablet (20 mg total) by mouth 1 (one) time each day. 30 tablet 2 No current facility-administered medications for this visit. Allergies Diphenhydramine, Penicillins, Codeine, and Diazepam Review of Systems 14 point review of systems was performed and was negative except as noted per HPI. Last Recorded Vitals Visit Vitals BP 126/85 Pulse 85 Ht 1.626 m (5' 4 ) Wt 81.6 kg (180 lb) SpO2 90% BMI 30.90 kg/m?? Smoking Status Some Days BSA 1.92 m?? Physical Exam GEN: well developed, no acute distress Head: normocephalic, atraumatic Eyes:EOMs intact Ears: normal auditory acuity PULM: Short of air at times MSK: no joint swelling, normal range of motion SKIN: warm and dry, capillary refill <2 seconds PSYCHE: normal mood and affect, appropriate historian Neuro Exam Strength 5/5 lower extremities except 4/5 right hip flexor, pain limited Sensation intact throughout DTRs 2+ achilles, absent patella Able to rise from chair but slowly. Exquisite ttp right SI Ambulates with cane Imaging I personally reviewed MRI of the lumbar spine completed today, 12/22/2022. Multilevel degenerative disc disease which is greatest at L5-S1, L2-3. Continued evidence of anterolisthesis of L4 on L5. Multilevel facet arthropathy also noted. Findings of foraminal stenosis greatest at L4-5 on the left L5-S1 on the left L2-3 left greater than right. Moderate central canal stenosis, but no overt compression. Awaiting final radiology read. Assessment and Plan Supriya Andres is a 72 y.o. female with chronic low back pain, lower extremity radiculopathy with an exacerbation of right-sided symptoms. With exquisite tenderness to palpation over the SI joint, feel that this is a huge pain contributor at this time. Recommend that when she see Dr. Sharma she follow-up for possible right SI joint injection. She does have multilevel degenerative changes with associated bilateral foraminal stenosis. At this time, I discussed that I feel most of her current pain is coming from her SI joints. I will follow up with her in 1 month to see how she has responded to that treatment with Dr Sharma and to check on current symptomatology. Based on that, will reach out to our neurosurgeons if she is not having any improvement in symptoms for further recommendations as she has tried other conservative management or encourage her to follow up as needed if she is havingbenefit. She would be high risk for any surgical procedure if needed. She is in agreement to avoid surgery at this time if possible. In order to try to help her rest, will prescribe a muscle relaxer, Robaxin, 500 mg at bedtime as needed. Assessment/Plan Problem List Items Addressed This Visit None Visit Diagnoses Lumbar spondylosis - Primary Intervertebral disc disorders with radiculopathy, lumbar region Sacroiliac joint pain Facet arthritis of lumbar region Amelia Bee APRN [facility] Department of Neurosurgery Thank you for allowing us to be a part of your patient's care. Please do not hesitate to contact [facility] if there are any questions or concerns. 30 minutes spent reviewing previous documentation, completion of today's documentation, review of imaging, [id number] visit, plan of care discussion. Answers submitted by the patient for this visit: Back Pain Questionnaire (Submitted on 12/15/2022) Chief Complaint: Back pain Chronicity: recurrent Onset: more than 1 month ago Frequency: constantly Progression since onset: gradually worsening Pain location: gluteal, sacro-iliac, thoracic spine Pain quality: aching, burning, shooting, stabbing Radiates to: right foot, right knee, right thigh Pain - numeric: 9/10 Pain is: the same all the time Aggravated by: bending, coughing, position, lying down, sitting, standing, stress, twisting Stiffness is present: at night, all day abdominal pain: No bladder incontinence: No bowel incontinence: No chest pain: No dysuria: No fever: No headaches: No leg pain: Yes numbness: Yes paresis: No paresthesias: Yes pelvic pain: Yes perianal numbness: No tingling: Yes weakness: Yes weight loss: No documented in this encounter Plan of Treatment Upcoming Encounters Date Type Department Care Team (Late st Contact Info) Description 03/30/2025 2:00 PM EDT Office Visit [facility] [place] [address] [facility] [address], [address] [place] [id number] Acacia Scott APRN [address] [place] [address] Scheduled Procedures Name Priority Associated Diagnoses Date/Ti me ARTHROPLASTY, HIP, TOTAL Arthritis of right hip documented as of this encounter Visit Diagnoses Diagnosis Lumbar spondylosis- Primary Lumbosacral spondylosis without myelopathy Intervertebral disc disorders with radiculopathy, lumbar region Sacroiliac joint pain Disorders of sacrum Facet arthritis of lumbar region documented in this encounter Additional Health Concerns Assessment Noted Time A fall risk assessment has been complete d for the patient 12/22/2022 11:06 AM EST A Body Mass Index follow-up plan has been documented for the patient 12/22/2022 2:41 PM EST documented as of this encounter Care Teams Inside Trucker Relationship Specialty Start Date End Date Michael Baez MD [address] [place] [address] PCP - General 04/08/21 Acacia Scott APRN [address] [place] [phone] Nurse Practitioner Cardiology 03/27/22 documented as of this encounter
--- OUTSIDE RECORDS SUMMARY | 2024-10-13 13:25 | XMS_ITS | Encounter Summary ---
Author Organization [facility] Address [address] [id number] Care Team Providers Care Jailkeeper Name Role Phone Michael Baez MD Primary Care Provider + [phone] Acacia Worthy FORM SETTER [employer]MS Unavailable Reason for Referral * Imaging (Routine) - Closed Specialty Diagnoses / Procedures Referred By Terrence prasad Referred To Contact Radiology Diagnoses Abnormal echocardiogram Procedures MR Cardiac Morphology and Function w and wo IV Contrast Acacia Worthy APRN [address] [place] [address] Phone: tel: fax: Referral ID Status Reason Start Date Expiration Date Visits Re quested Visits Authorized [id number] Closed 09/22/2022 03/23/2024 1 1 Reason for Visit * Imaging (Routine) - Closed Specialty Diagnoses / Procedures Referred By Terrence prasad Referred To Contact Radiology Diagnoses Abnormal echocardiogram Procedures MR Cardiac Morphology and Function w and wo IV Contrast Acacia Worthy APRN [address] [place] [address] Phone: tel: fax: Referral ID Status Reason Start Date Expiration Date Visits Re quested Visits Authorized [id number] Closed 09/22/2022 03/23/2024 1 1 Encounter Details Date Type Department Care Team (Latest Contact Info) Description 12/20/2022 10:15 AM EST - 12/20/2022 11:59 PM EST Hospital Encounter [facility] [address] [place] [address] Abnormal echocardiogram Discharge Disposition: Home or Self Care Social [...] drink first t pippa in the morning (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 Call 911 after use. 3 nystatin (Mycostatin) [id number] UNIT/ML suspension 10/25/2022 3 documented as of this encounter Plan of Treatment Upcoming Encounters Date Type Department Care Team (Late st Contact Info) Description 03/30/2025 2:00 PM EDT Office Visit [facility] [place] [address] [facility], [address] [place] [address] Acacia Worthy, FORM SETTER [employer] [address] [place] [address] Scheduled Procedures Name Priority Associated Diagnoses Date/Ti me ARTHROPLASTY, HIP, TOTAL Arthritis of right hip documented as of this encounter Procedures Procedure Name Priority Date/Time Associated Diagnosis Comments MR CARDIAC MORPHOLOGY AND FUNCTION W AND WO IV CONTRAST Routine 12/20/2022 12:25 PM EST Abnormal echocardiogram POCT CREATININE ISTAT UNSOLICITED RESULTS Routine 12/20/2022 11:15 AM EST documented in this encounter Results * MR Cardiac Morphology and Function w and wo IV Contrast (12/20/2022 12:25 PM EST) Anatomical Region Laterality Modality Heart Magnetic Resonan ce Impressions 12/22/2022 3:20 PM EST 1. Normal sized left ventricle with borderline normal global systolic function (EF 54%). Septal hypokinesis in the mid and distal left ventricle, most pronounced in the apical septal mid LV. 2. Normal sized right ventricle with normal global systolic function (EF 55%). 3. No CMR evidence for LV scar (fibrosis or infarction). 4. No significant valvular abnormalities. CRITICAL RESULT: No. COMMUNICATION: Per this written report. By electronically signing this report, I, the attending physician, attest that I have personally reviewed the images/data for the above examination(s) and agree with the final edited report. Dictated by RT Gabriel on 12/20/2022 2:12 PM Signed by Rigo Walters MD on 12/22/2022 3:20 PM Narrative 12/22/2022 3:20 PM EST Exam/Procedure: MR CARDIAC MORPHOLOGY AND FUNCTION W AND WO IV CONTRAST ordered by ACACIA WORTHY, [id number] CLINICAL INDICATION: Cardiomyopathy, undefined, further testing Age: 72 years old Heart rate: 72 beats/min Body Surface Area (BSA): 1.94 m2 COMPARISON: October 15, 2019 CTA cardiac noncoronary. TECHNIQUE: Cardiac MRI with and without contrast was performed on 3 Shirin Siemens Skyra MRI scanner. Imaging sequences included black blood axial stack with HASTE, cine with SSFP, complex flow analysis with phase contrast, ??first pass perfusion at rest, Long TI Inversion Recovery, and late gadolinium enhancement. Gadavist (Gadobutrol) 0.15mmol/kg was administered intravenously via a peripheral IV without any adverse effects at a rate of 4mL/sec. Patient tolerated the procedure well. Study Quality: Excellent Artifacts: Susceptibly artifact noted in the mediastinum post sternotomy and the proximal LAD from stent. FINDINGS: Measurements (normal values): (reference: Carol Couch et al. J Cardiovasc Magn Reson. 2015;17:29.) LVEF: 54 % (57 - 77) LVEDV: 133 ml (86 - 178) ? LVEDVI: 69 ml/m2 (56 - 96) LVESV: 61 ml (22 - 66) LVESVI: 32 ml/m2 (14 - 34) LV Mass(measured at end-diastole excluding papillary muscles): 56 gm (51 - 127) LV Mass Index: 47 gm/m2 (37 - 74) LV End-Diastolic Dimension: 53 mm (35 - 57) LV End-Systolic Dimension: 42 mm (22 - 40) Anteroseptal Wall Thickness: 8 mm (8 - 10) Inferolateral Wall Thickness: 5 mm (8 - 10) RVEF: 55 % (51 - 71) RVEDV: 120 ml (77 - 201) RVEDVI: 62 ml/m2 (48 - 112) RVESV: 54 ml (24 - 84) RVESVI: 20 ml/m2 (12 - 52) Left Atrial Volume Index: 33 mL/m2 ?? Aortic Root at the Sinuses of Valsalva: 32 mm (25 - 35) Mid-Ascending Aorta: 39 mm (27 - 35) Descending Aorta: 28 mm (20 - 28) Qualitative Measures: ?? LV Cavity Size: Normal LV Hypertrophy: None LV Global Function: Mild hypokinesis at the RV Cavity Size: Normal RV Hypertrophy: None RV Function: Normal Left Atrial Size: Normal Right Atrial Size: Normal Segmental Function (16 segment model): Basal LV: Normal. Mid LV: Septal hypokinesis, most significant at the apical septal segment Distal LV: Septal hypokinesis. Regional Wall Motion Score Index (Score/segments) = 1.0 (1.0 = normal; 1.0-1.5 = mild; 1.6-2.0 = moderate; >2.0 = severe) Valves: Aortic Valve: No significant stenosis or regurgitation Mitral Valve: No significant stenosis or regurgitation Tricuspid Valve: No significant stenosis or regurgitation Pulmonary Valve: Not well visualized Aorta: Left-sided arch, normal in size without aneurysmal changes or coarctation Pericardium: Normal, no pericardial effusion. Other: No significant extracardiac abnormalities. Rest Perfusion: Basal LV: No regional perfusion defect. Mid LV: No regional perfusion defect. Distal LV: No regional perfusion defect. Apical Cap: No regional perfusion defect. Late Gadolinium Enhancement (viability imaging,17 segment model): Basal LV: No late gadolinium enhancement Mid LV: No late gadolinium enhancement. Distal LV: No late gadolinium enhancement. Apical Cap: No late gadolinium enhancement. (Note: Transmural extent of infarct is a marker of viable myocardium: <25% is viable, 25-50% is mixed; likely viable, 50-75% is mixed; likely non-viable, >75% is non-viable) Procedure Note Rigo Walters MD - 12/22/2022 Exam/Procedure: MR CARDIAC MORPHOLOGY AND FUNCTION W AND WO IV CONTRASTordered by ACACIA WORTHY, [id number] CLINICAL INDICATION: Cardiomyopathy, undefined, further testing Age: 72 years old Heart rate: 72 beats/min Body Surface Area (BSA): 1.94 m2 COMPARISON: October 15, 2019 CTA cardiac noncoronary. TECHNIQUE: Cardiac MRI with and without contrast was performed on 3 Shirin Siemensyra MRI scanner. Imaging sequences included black blood axial stack withHASTE, cine with SSFP, complex flow analysis with phase contrast, firstpass perfusion at rest, Long TI Inversion Recovery, and late gadoliniumenhancement. Gadavist (Gadobutrol) 0.15mmol/kg was administeredintravenously via a peripheral IV without any adverse effects at a rate of4mL/sec. Patient tolerated the procedure well. Study Quality: Excellent Artifacts: Susceptibly artifact noted in the mediastinum post sternotomyand the proximal LAD from stent. FINDINGS: Measurements (normal values): (reference: Arti-Pk N, et al. J Cardiovasc Magn Reson. 2015;17:29.) LVEF: 54 % (57 - 77) LVEDV: 133 ml (86 - 178) LVEDVI: 69 ml/m2 (56 - 96) LVESV: 61 ml (22 - 66) LVESVI: 32 ml/m2 (14 - 34) LV Mass(measured at end-diastole excluding papillary muscles): 56 gm (51 -127) LV Mass Index: 47 gm/m2 (37 - 74) LV End-Diastolic Dimension: 53 mm (35 - 57) LV End-Systolic Dimension: 42 mm (22 - 40) Anteroseptal Wall Thickness: 8 mm (8 - 10) Inferolateral Wall Thickness: 5 mm (8 - 10) RVEF: 55 % (51 - 71) RVEDV: 120 ml (77 - 201) RVEDVI: 62 ml/m2 (48 - 112) RVESV: 54 ml (24 - 84) RVESVI: 20 ml/m2 (12 - 52) Left Atrial Volume Index: 33 mL/m2 Aortic Root at the Sinuses of Valsalva: 32 mm (25 - 35) Mid-Ascending Aorta: 39 mm (27 - 35) Descending Aorta: 28 mm (20 - 28) Qualitative Measures: LV Cavity Size: Normal LV Hypertrophy: None LV Global Function: Mild hypokinesis at the RV Cavity Size: Normal RV Hypertrophy: None RV Function: Normal Left Atrial Size: Normal Right Atrial Size: Normal Segmental Function (16 segment model): Basal LV: Normal. Mid LV: Septal hypokinesis, most significant at the apical septalsegment Distal LV: Septal hypokinesis. Regional Wall Motion Score Index (Score/segments) = 1.0 (1.0 = normal; 1.0-1.5 = mild; 1.6-2.0 = moderate; >2.0 = severe) Valves: Aortic Valve: No significant stenosis or regurgitation Mitral Valve: No significant stenosis or regurgitation Tricuspid Valve: No significant stenosis or regurgitation Pulmonary Valve: Not well visualized Aorta: Left-sided arch, normal in size without aneurysmal changes orcoarctation Pericardium: Normal, no pericardial effusion. Other: No significant extracardiac abnormalities. Rest Perfusion: Basal LV: No regional perfusion defect. Mid LV: No regional perfusion defect. Distal LV: No regional perfusion defect. Apical Cap: No regional perfusion defect. Late Gadolinium Enhancement (viability imaging,17 segment model): Basal LV: No late gadolinium enhancement Mid LV: No late gadolinium enhancement. Distal LV: No late gadolinium enhancement. Apical Cap: No late gadolinium enhancement. (Note: Transmural extent of infarct is a marker of viable myocardium: <25%is viable, 25-50% is mixed; likely viable, 50-75% is mixed; likelynon-viable, >75% is non-viable) IMPRESSION: 1. Normal sized left ventricle with borderline normal global systolicfunction (EF 54%). Septal hypokinesis in the mid and distal leftventricle, most pronounced in the apical septal mid LV. 2. Normal sized right ventricle with normal global systolic function (EF55%). 3. No CMR evidence for LV scar (fibrosis or infarction). 4. No significant valvular abnormalities. CRITICAL RESULT: No. COMMUNICATION: Per this written report. By electronically signing this report, I, the attending physician, attestthat I have personally reviewed the images/data for the aboveexamination(s) and agree with the final edited report. Dictated by RT Gabriel on 12/20/2022 2:12 PM Signed by Rigo Walters MD on 12/22/2022 3:20 PM Acaciadio Worthy FORM SETTER [employer] FORMS IMG MRI PROCEDURES Final Result * POCT creatinine (12/20/2022 11:15 AM EST) Creatinine, Point of Care 1.1 0.6 - 1.1 mg/dL 12/20/2022 11:25 AM EST [facility] POCT eGFR 54 mL/min/1. 73m*2 12/20/2022 11:25 AM EST [facility] [employer] ID Aleksandr Maya 12/20/2022 11:25 AM EST [facility] Device ID [id number] 12/20/2022 11:25 AM EST [facility] Comment 12/20/2022 11:25 AM EST [facility] Comment: Testing performed on i-STAT at the point of care. Reported eGFRcr in mL/min/1.73m2 is based the CKD-EPI 2021 equation that does not use a race coefficient. Effective 06/21/22 our laboratory changed the eGFR calculation to the CKD-EPI 2021 equation from the previously reported eGFR, based on the MDRD equation. For comparisons between the two equations, please see laboratory website: [email or web address] Blood Venous blood specimen / Unknown 12/20/2022 11:15 AM EST 12/20/2022 11:25 AM EST us Generic Provider Poct LAB POINT OF CARE TEST DOCKED DEVICE UNSOLICITED RESULTS Final Result [facility] [address] [place] [address] documented in this encounter Visit Diagnoses Diagnosis Abnormal echocardiogram Nonspecific (abnormal) findings on radiological and other examination of other intrathoracic organs documented in this encounter Administered Medications Inactive Administered Medications - up to 3 most recent administrations Medication Order MAR Action Action Date Dose Rate Site gadobutrol (Gadavist) injection 12.5 mmol 12.5 mmol (rounded from 12.45 mmol = 0.15 mmol/kg ? 83 kg), Intravenous, Once in imaging, 1 dose, Starting on Sun12/20/22 at 1232, Until Sun12/20/22 at 1202, Routine, Imaging Protocol Orders Given 12/20/2022 12:02 PM EST 12.5 mmol documented in this encounter Additional Health Concerns Assessment Noted Time A fall risk assessment has been complete d for the patient 11/03/2022 8:37 AM EST documented as of this encounter Care Teams Jailkeeper Relationship Specialty Start Date End Date Michael Baez MD [facility] [address] [place] [address] PCP - General 04/08/21 Acacia Worthy APRN [address] [place] [address] Nurse Practitioner Cardiology 03/27/22 documented as of this encounter
--- OUTSIDE RECORDS SUMMARY | 2024-10-13 13:25 | XMS_ITS | Encounter Summary ---
Author Organization [facility] Address [address] [place] [address] Care Team Providers Care Picker Tender Name Role Phone Michael Baez MD Primary Care Provider + [phone] Acacia Scott GROUND INSTRUCTOR [employer]VANC[employer] Unavailable [phone] Encounter Details Date Type Department Care Team (Late st Contact Info) Description 10/01/2023 3:30 PM EST Office Visit [facility] [place] [address] [facility], [address] [place] [address] Acacia Scott, GROUND INSTRUCTOR [employer]VANCED [address] [place] [address] Paroxysmal atrial fibrillation (CMS/HCC) (Primary Dx); Primary hypertension; Mixed hyperlipidemia; ASCVD (arteriosclerotic cardiovascular disease) Social History Tobacco Use Types Packs/Day Years [...] drink first t pippa in the morning (EYE-DRIER FEEDER) to steady your nerves or to get [...] Sign Reading Time Taken Comments Blood Pressure 155/98 10/01/2023 3:19 PM EST Pulse 78 10/01/2023 3:19 PM EST Temperature - - Respiratory Rate - - Oxygen Saturation 93% 10/01/2023 3:19 PM EST Inhaled Oxygen Concentration - - Weight 79.2 kg (174 lb 9.7 oz) 10/01/2023 3:19 P M EST Height 162.6 cm (5' 4 ) 10/01/2023 3:19 PM EST Body Mass Index 29.97 10/01/2023 3:19 PM EST documented in this encounter Miscellaneous Notes * Progress Notes - Acacia Scott APRN - 10/01/2023 3:30 PM EST Images from the original note were not included. Supriya Andres is a 72 y.o. female with CAD s/p CABG, stent to LAD with AMY in May 2019 and as recent as 04/30/2020 she was found to have ISRS of the distal portion of the mid LAD with a mildly reduced EF of 45-50% (both done by Dr. Abdalla at [facility]). She also has a h/o AF, CORNELIA, HTN, and hyperlipidemia. She has been followed by Dr. Mar for the AF and underwent PVI on October 29, 2019. Had a bout of asthma a couple of weeks ago-breathing is better right now. No chest pain, no palpitations, dizziness, syncope, or edema. Shortness of breath is the same-flaired up now Quit smoking in December. CMR- Ruled out possible apical outpouching/aneurysm. Cardiac [...] Medical History: Diagnosis Date Asthma Atrial fibrillation ([facility]) COPD (chronic obstructive pulmonary disease) (CMS/[facility]) Gastroesophageal reflux disease without esophagitis Hypercholesteremia Hypertension Obstructive sleep apnea (adult) (pediatric) CORNELIA on CPAP Old myocardial infarction History of myocardial infarction Restless leg syndrome Surgical History Past Surgical History: Procedure Laterality Date BILIARY DRAINAGE N/A Atrial Cardioversion from [facility] CATH STENT PLACEMENT/ CATH PLACEMENT OF STENT N/A Cath Stent Placement from [facility] COLON SURGERY N/A Colon Surgery from [facility] CORONARY ARTERY BYPASS GRAFT N/A CABG from [facility] HYSTERECTOMY N/A Hysterectomy from [facility] TOTAL KNEE ARTHROPLASTY N/A Knee Replacement from [facility] Family History family history includes Coronary artery disease in her father and mother. Social History reports that she quit smoking about 9 months ago. Her smoking use included cigarettes. She smoked an average of .25 packs per day. [...] day in the morning. 30 tablet 0 Breztri Aerosphere 160-9-4.8 MCG/ACT aerosol Inhale 1 [...] (one) time each day. 30 tablet 2 Evolocumab 140 MG/ML solution auto-injector Inject 140 mg under the skin every 14 (fourteen) days. 6 mL 1 famotidine (Pepcid) 20 MG [...] MG tablet omalizumab (Xolair) 150 MG/ML injection every 28 (twenty-eight) days. rOPINIRole (Requip) 1 MG tablet Take 1 tablet (1 mg) by mouth 3 (three) times a day. 1 tab in the morning, 1 tab in the evening, 1 tab nightly temazepam (Restoril) 15 MG capsule Take 1 capsule (15 mg) by mouth every night. methocarbamol (Robaxin) 500 MG tablet Take 1 tablet (500 mg total) by mouth at night if needed for muscle spasms. 15 tablet 0 No current facility-administered medications for this visit. [...] normal. Behavior: Behavior normal. Visit Vitals BP (!) 155/98 (BP Location: Right arm, Patient Position: Sitting, BP Cuff Size: Adult) Pulse 78 Ht 1.626 m (5' 4 ) Wt 79.2 kg (174 lb 9.7 oz) SpO2 93% BMI 29.97 kg/m?? Cardiac Testing Imaging No echocardiogram results [...] and repatha. -Continue cholesterol management-goal LDL <70 2. PAF -Continue f/u with EP -Rate controlled with BB -Anticoagulated with Eliquis for CHADS-VASC score of 3 3. Hyperlipidemia -Continue Repatha, Goal LDL <70 4. HTN -BP elevated; continue to monitor at home-she will notify us if stays elevated -Continue current medications Follow-up in 6 months A total time of 30 minutes was spent addressing the current illness, reviewing records (prior imaging, lab work, etc), and formulating a plan. The patient is agreeable to the plan and all pertinent questions were answered. Acacia Scott APRN documented in this encounter Plan of Treatment Upcoming Encounters Date Type Department Care Team ([facility] st Contact Info) Description 03/30/2025 2:00 PM EDT Office Visit [facility] [place] [address] [facility], [address] [place] [address] Acacia Scott APRN [address] [place] [address] Scheduled Procedures Name Priority Associated Diagnoses Date/Ti me ARTHROPLASTY, HIP, TOTAL Arthritis of right hip documented as of this encounter Visit Diagnoses Diagnosis Paroxysmal atrial fibrillation (CMS/HCC)- Primary Atrial fibrillation Primary hypertension Unspecified essential hypertension Mixed hyperlipidemia ASCVD (arteriosclerotic cardiovascular disease) Unspecified cardiovascular disease documented in this encounter Additional Health Concerns Assessment Noted Time A fall risk assessment has been complete d for the patient 12/26/2022 12:47 PM EST A Body Mass Index follow-up plan has been documented for the patient 10/11/2023 10:41 PM EST documented as of this encounter Care Teams Picker Tender Relationship Specialty Start Date End Date Michael Baez MD [facility] [address] [place] [address] PCP - General 04/08/21 Acacia Scott APRN [address] [place] [phone] Nurse Practitioner Cardiology 03/27/22 documented as of this encounter
--- OUTSIDE RECORDS SUMMARY | 2024-10-13 13:25 | XMS_ITS | Encounter Summary ---
Author Organization [facility] Address [address] [place] [address] Care Team Providers Care Elevator Worker Name Role Phone Michael Baez MD Primary Care Provider + [phone] Acacia Scott APRN Unavailable [phone] Reason for Referral * Imaging (Routine) - Closed Specialty Diagnoses / Procedures Referred By Terrence prasad Referred To Contact Cardiology Diagnoses Shortness of breath Procedures NM Myocardial Perfusion Stress Test Acacia Scott APRN [address] [place] [address] Phone: tel: fax: Referral ID Status Reason Start Date Expiration Date Visits Re quested Visits Authorized [id number] Closed 02/26/2023 08/27/2024 1 1 Encounter Details Date Type Department Care Team (Late st Contact Info) Description 02/26/2023 Orders Only [facility] [place] [address], [address] [place] [address] Acacia Scott APRN [address] [place] [address] Shortness of breath (Primary Dx) Social History Tobacco Use Types Packs/Day Years [...] drink first t pippa in the morning (EYE-POWDER HAND) to steady your nerves or to get [...] Upcoming Encounters Date Type Department Care Team ([facility] st Contact Info) Description 03/30/2025 2:00 PM EDT Office Visit [facility] [place] [address], [address] [place] [address] Acacia Scott, HALF SOLE FITTER [address] [place] [address] Scheduled Procedures Name Priority Associated Diagnoses Date/Ti me ARTHROPLASTY, HIP, TOTAL Arthritis of right hip documented as of this encounter Procedures Procedure Name Priority Date/Time Associated Diagnosis Comments NM MYOCARDIAL SPECT REGADENOSON STRESS (MULTI STUDY) Routine 03/06/2023 2:54 PM EDT Shortness of breath documented in this encounter Results * NM MYOCARDIAL SPECT REGADENOSON STRESS (MULTI STUDY) (03/06/2023 2:54 PM EDT) Target HR 127 bpm MUSE MPHR 149 bpm MUSE Resting HR 66 bpm MUSE Baseline Systolic BP 119 MUSE Baseline Diastolic BP 79 MUSE Pharma PK HR 92 bpm MUSE Pharmacologic Peak BP Systolic 156 mmHg MUSE Pharmacologic Peak BP Diastolic 116 mmHg MUSE Anatomical Region Laterality Modality Nuclear Medicine Narrative 03/06/2023 5:11 PM EDT ?Combined ECG/SPECT: This is a probably normal nuclear stress test. There is no ischemia. ?Stress ECG: No ischemic ST segment changes occurred with stress. ?Perfusion: SPECT images demonstrate probably normal myocardial perfusion. ?Function: Normal left ventricular cavity size. Gated SPECT images demonstrate normal systolic function. Regional wall motion is normal. LV wall thickening appears concordantly normal. LVEF: 65 - 69%. ?There is no previous examination/report available for comparison or correlation. ?? Technical Details A one-day protocol was followed. 6.5 mCi of Tc-99m sestamibi were injected intravenously at rest. After a waiting period of 45-60 minutes, SPECT imaging of the heart was performed in the sitting upright position with three-dimensional tomographic reconstructions. 0.4 mg of regadenoson was infused over 10-12 seconds followed by 19.3 mCi of Tc-99m sestamibi injected intravenously. After a waiting period of 60-90 minutes, post-stress SPECT imaging of the heart was performed in the sitting upright and supine positions with three-dimensional tomographic reconstructions. Gated SPECT data were obtained to calculate left ventricular volumes and ejection fraction post-stress. Motion correction was not applied to the rest and/or post-stress acquisitions. Stress Findings A pharmacological stress test was performed. The pharmacologic test was performed using regadenoson. The patient started with a baseline heart rate of 66bpm, and increased to 92bpm with stress pharmacologic agent. The patient's baseline blood pressure was 119/79, and changed to 156/116 with stress medication. The patient experienced no chest pain. The patient experienced symptoms of shortness of breath and severe coughing during the stress test. 75 mg IV aminophylline was given as a reversal medication. The patient reached the end of the planned protocol. Stress ECG Baseline ECG: The baseline ECG shows sinus arrhythmia and normal axis. Baseline ECG shows no ST segment deviation. Stress and Recovery ECG: ST segment changes were interpretable but limited. No ischemic ST segment changes occurred. There were no arrhythmias during stress. There were no arrhythmias during recovery. ECG Conclusion: No ischemic ST segment changes occurred with stress. The stress test was performed under direct supervision of the reading avionics electronics technician. Study Impression There is no significant patient motion noted. The SPECT images demonstrate a normal left ventricular cavity size with an estimated left ventricular end-diastolic volume of 86 mL (normal: <149 mL for males, < 102 mL for females, small: <45 mL). There is no stress-induced transient ischemic dilation (TID) of the left ventricular cavity. SPECT images demonstrate probably normal myocardial perfusion. There is a small, mild perfusion defect located in the distal anterior myocardium. The perfusion defect is fixed and looks worse on rest compared to stress favoring artifact. There is regular cardiac rhythm with optimal gating. The gated SPECT images demonstrate normal systolic function. Regional wall motion is normal. LV wall thickening appears concordantly normal. The calculated post-stress LVEF is 65 - 69%. Nuclear Conclusion Combined ECG/SPECT: This is a probably normal nuclear stress test. There is no previous examination/report available for comparison or correlation. Acacia Scott APRN CV STRESS PROCEDURES Fin al Result documented in this encounter Visit Diagnoses Diagnosis Shortness of breath- Primary documented in this encounter Additional Health Concerns Assessment Noted Time A fall risk assessment has been complete d for the patient 12/26/2022 12:47 PM EST A Body Mass Index follow-up plan has been documented for the patient 12/26/2022 1:45 PM EST documented as of this encounter Care Teams Elevator Worker Relationship Specialty Start Date End Date Michael Baez MD [address] [place] [address] PCP - General 04/08/21 Acacia Scott APRN [address] [place] [address] Nurse Practitioner Cardiology 03/27/22 documented as of this encounter
--- OUTSIDE RECORDS SUMMARY | 2024-10-13 13:25 | XMS_ITS | Encounter Summary ---
Author Organization [facility] Address [address] [place] [address] Care Team Providers Care Associate Professor Of Philosophy Name Role Phone Michael Baez MD Primary Care Provider + [phone] Acacia Scott ARTIST SUSPECT Unavailable [phone] Reason for Visit * Reason Onset Date Comments Med Refill 01/25/2023 Encounter Details Date Type Department Care Team (Late st Contact Info) Description 01/25/2023 Refill [facility] [place] [address] [place] [address] Acacia Scott, ARTIST SUSPECT [address] [place] [address] Social History Tobacco Use Types [...] drink first t pippa in the morning (EYE-DEXIGRAPH OPERATOR) to steady your nerves or to [...] Description 03/30/2025 2:00 PM EDT Office Visit [facility] [place] [address] [facility] [address] [facility], [address] [place] [address] Acacia Scott APRN [address] [place] [address] Scheduled Procedures Name Priority Associated [...] documented as of this encounter Care Teams Associate Professor Of Philosophy Relationship Specialty Start Date End Date Michael Baez MD [address] [place] [address] PCP - General 04/08/21 Acacia Scott APRN [address] [place] [address] Nurse Practitioner Cardiology 03/27/22 documented as of this encounter
--- OUTSIDE RECORDS SUMMARY | 2024-10-13 13:25 | XMS_ITS | Encounter Summary ---
Author Organization [facility] Address [address] [place] [address] Care Team Providers Care Back Facer Name Role Phone Michael Baez MD Primary Care Provider + [phone] Acacia Scott SATELLITE COMMUNICATIONS ENGINEER Unavailable [phone] Encounter Details Date Type Department Care Team (Latest Contact Info) Description 12/19/2022 Travel Social History Tobacco Use Types Packs/Day [...] drink first t pippa in the morning (EYE-CONVEX GRINDER) to steady your nerves or to get [...] suspected to have Coronavirus/COVID-19? No / Unsure 12/19/2022 9:16 AM EST documented as of this encounter Plan of Treatment Upcoming Encounters Date Type Department Care Team (Late st Contact Info) Description 03/30/2025 2:00 PM EDT Office Visit [facility] [place] [address], [address] [place] [address] Acacia Scott APRN [address] [place] [address] Scheduled Procedures Name Priority Associated Diagnoses Date/Ti me ARTHROPLASTY, HIP, TOTAL Arthritis of right hip documented as of this encounter Visit Diagnoses Not on filedocumented in this encounter Additional Health Concerns Assessment Noted Time A fall risk assessment has been complete d for the patient 11/03/2022 8:37 AM EST documented as of this encounter Care Teams Back Facer Relationship Specialty Start Date End Date Michael Baez MD [facility] [facility] [address] [place] [address] PCP - General 04/08/21 Acacia Scott APRN [address] [place] [address] Nurse Practitioner Cardiology 03/27/22 documented as of this encounter
--- OUTSIDE RECORDS SUMMARY | 2024-10-13 13:25 | XMS_ITS | Encounter Summary ---
Author Organization [facility] Address [address] [place] [address] Care Team Providers Care Market Asset Protection Manager Name Role Phone Michael Baez MD Primary Care Provider + [phone] Acacia Scott TEACHER OF FAMILY AND CONSUMER SCIENCE Unavailable [phone] Reason for Visit * Imaging (Routine) - Closed Specialty Diagnoses / Procedures Referred By Contac shanice Referred To Contact Cardiology Diagnoses Shortness of breath Procedures NM Myocardial Perfusion Stress Test Acacia Scott, TEACHER OF FAMILY AND CONSUMER SCIENCE [address] [place] [address] Phone: tel: fax: Referral ID Status Reason Start Date Expiration Date Visits Re quested Visits Authorized [id number] Closed 02/26/2023 08/27/2024 1 1 Encounter Details Date Type Department Care Team (Latest Contact Info) Description 03/06/2023 12:51 PM EDT - 03/06/2023 11:59 PM EDT Hospital Encounter Cardiac Imaging [address] [place] [id number] Discharge Disposition: Home or Self Care Social [...] first t pippa in the morning (EYE-SUPERVISOR CELL EFFICIENCY) to steady your nerves or to get [...] Description 03/30/2025 2:00 PM EDT Office Visit [facility] [place] [address], [address] [place] [address] Acacia Scott APRN [address] [place] [address] Scheduled Procedures Name Priority Associated [...] MAR Action Action Date Dose Rate Site technetium Tc-99m sestamibi (Cardiolite) radio-isotope injection 6.5 millicurie 6.5 millicurie, Intravenous, Once, 1 dose, On 03/06/23 at 1330, Routine Given 03/06/2023 1:12 PM EDT 6.5 millicuries documented in this encounter Additional Health Concerns Assessment Noted Time A fall risk assessment has been complete d for the patient 12/26/2022 12:47 PM EST A Body Mass Index follow-up plan has been documented for the patient 12/26/2022 1:45 PM EST documented as of this encounter Care Teams Market Asset Protection Manager Relationship Specialty Start Date End Date Michael Baez MD [address] [place] [address] PCP - General 04/08/21 Acacia Scott APRN [address] [place] [address] Nurse Practitioner Cardiology 03/27/22 documented as of this encounter
--- OUTSIDE RECORDS SUMMARY | 2024-10-13 13:25 | XMS_ITS | Encounter Summary ---
Author Organization [facility] Address [address] [place] [address] Care Team Providers Care Refrigerating Oiler Name Role Phone Michael Baez MD Primary Care Provider + [phone] Acacia Scott ENVIRONMENTAL PLANNING ENGINEER Unavailable [phone] Encounter Details Date Type Department Care Team (Late st Contact Info) Description 02/13/2024 [facility] [place] [address], [address] [place] [address] Acacia Scott, ENVIRONMENTAL PLANNING ENGINEER [address] [place] [address] Social History Tobacco Use Types [...] drink first t pippa in the morning (EYE-LABORER PIPELINE) to steady your nerves or to get [...] Upcoming Encounters Date Type Department Care Team ([facility] st Contact Info) Description 03/30/2025 2:00 PM EDT Office Visit [facility] [place] [address], [address] [place] [address] Acacia Scott APRN [address] [place] [address] Scheduled Procedures Name Priority Associated [...] documented as of this encounter Care Teams Refrigerating Oiler Relationship Specialty Start Date End Date Michael Baez MD [address] [place] [address] PCP - General 04/08/21 Acacia Scott APRN [address] [place] [address] Nurse Practitioner Cardiology 03/27/22 documented as of this encounter
--- OUTSIDE RECORDS SUMMARY | 2024-10-13 13:25 | XMS_ITS | Encounter Summary ---
Author Organization [facility] Address [address] [place] [address] Care Team Providers Care Personal Financial Planner Name Role Phone Michael Baez MD Primary Care Provider + [phone] Acacia Scott GRID OPERATOR Unavailable [phone] Reason for Visit * Reason Onset Date Comments HCN Clinical Concern/Question 09/03/2023 Encounter Details Date Type Department Care Team ([facility] st Contact Info) Description 09/03/2023 Telephone [facility] [place] [address], [address] [place] [address] Acacia Scott, GRID OPERATOR [address] [place] [address] HCN Clinical Concern/Question Social History Tobacco Use Types Packs/Day Years [...] drink first t pippa in the morning (EYE-ENAMEL SHADER) to 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 0 08/17/2022 CAGE Questionnaire Score 0 022 Comments Unknown Sex and Gender Information Value Date Recorded Sex Assigned at Not on file Legal Sex Female 7:36 PM EDT Gender Identity Not on file Sexual Orientation Not on file documented as of this encounter Miscellaneous Notes * Telephone Encounter - Alec Pat Calvin - 09/03/2023 12:55 PM EDT Clinical Concern/Question Reason for Call: [place] patient is requesting a call to schedule her yearly appointment. Best contact number: [phone] (mobile) Optimal time of day to reach caller: ANYTIME Additional comments/information from caller: None Note: Please do not reply to this message. Follow-up communication and further actions as a result of this message need to be communicated with the patient directly, if the patient is not active onMyChart. If the patient is active on MyChart, they will receive notification of the communication/outcome via [employer]. documented in this encounter Plan of Treatment Upcoming Encounters Date Type Department Care Team (Late st Contact Info) Description 03/30/2025 2:00 PM EDT Office Visit [facility] [place] [address], [address] [place] [address] Acacia Scott, GRID OPERATOR [address] [place] [address] Scheduled Procedures Name Priority Associated [...] documented as of this encounter Care Teams Personal Financial Planner Relationship Specialty Start Date End Date Michael Baez MD [address] [place] [address] PCP - General 04/08/21 Acacia Scott APRN [address] [place] [address] Nurse Practitioner Cardiology 03/27/22 documented as of this encounter
--- OUTSIDE RECORDS SUMMARY | 2024-10-13 13:25 | XMS_ITS | Encounter Summary ---
Author Organization [facility] Address [address] [place] [address] Care Team Providers Care Cloud Systems Administrator Name Role Phone Michael Baez MD Primary Care Provider + [phone] Acacia Scott STEAM CLEANING MACHINE OPERATOR Unavailable [phone] Reason for Visit * Reason Onset Date Comments Med Refill 06/08/2023 Encounter Details Date Type Department Care Team (Late st Contact Info) Description 06/08/2023 Refill [facility] [place] [address] [facility] [address], [address] [place] [address] Acacia Scott, STEAM CLEANING MACHINE OPERATOR [address] [place] [address] Social History Tobacco Use Types [...] drink first t pippa in the morning (EYE-DIRECTOR OF WOMEN'S SERVICES) to steady your nerves or to get [...] Description 03/30/2025 2:00 PM EDT Office Visit [facility] [place] [address], [address] [place] [address] Acacia Scott APRN [address] [place] [address] Scheduled Procedures Name Priority Associated [...] documented as of this encounter Care Teams Cloud Systems Administrator Relationship Specialty Start Date End Date Michael Baez MD [address] [place] [address] PCP - General 04/08/21 Acacia Scott APRN [address] [place] [address] Nurse Practitioner Cardiology 03/27/22 documented as of this encounter
--- OUTSIDE RECORDS SUMMARY | 2024-10-13 13:25 | XMS_ITS | Encounter Summary ---
Author Organization [facility] Address [address] [place] [address] Care Team Providers Care Hotel Or Motel Manager Name Role Phone Michael Baez MD Primary Care Provider + [phone] FaxonAcacia hendricks VENEER DRIER TAILER Unavailable [phone] Encounter Details Date Type Department Care Team (Latest Contact Info) Description 10/01/2023 Travel Social History Tobacco Use Types Packs/Day [...] drink first t pippa in the morning (EYE-ACQUISITIONS LOGISTICS ANALYST) to steady your nerves or to get [...] Description 03/30/2025 2:00 PM EDT Office Visit [facility] [place] [address], [address] [place] [address] Acacia Scott APRN [address] [place] [address] Scheduled Procedures Name Priority Associated [...] documented as of this encounter Care Teams Hotel Or Motel Manager Relationship Specialty Start Date End Date Michael Baez MD [address] [place] [address] PCP - General 04/08/21 Acacia Scott APRN [address] [place] [address] Nurse Practitioner Cardiology 03/27/22 documented as of this encounter
--- OUTSIDE RECORDS SUMMARY | 2024-10-13 13:25 | XMS_ITS | Encounter Summary ---
Author Organization [facility] Address [address] [place] [address] Care Team Providers Care Aircraft Engine Mechanic Overhaul Name Role Phone Michael Baez MD Primary Care Provider + [phone] Acacia Scott POWER SHOVEL ENGINEER Unavailable [phone] Encounter Details Date Type Department Care Team (Late st Contact Info) Description 03/31/2024 4:00 PM EDT Office Visit [facility] [place] [address], [address] [place] [address] Acacia Sctot, POWER SHOVEL ENGINEER [address] [place] [address] Muscle cramps (Primary Dx); Mixed hyperlipidemia; Coronary artery disease involving [place] coronary artery of [place] heart without angina pectoris; PAF (paroxysmal atrial [...] drink first t pippa in the morning (EYE-.NET DEVELOPER) to steady your nerves or to get [...] Sign Reading Time Taken Comments Blood Pressure 137/80 03/31/2024 3:30 PM EDT Pulse 74 03/31/2024 3:30 PM EDT Temperature - - Respiratory Rate - - Oxygen Saturation 98% 03/31/2024 3:30 PM EDT Inhaled Oxygen Concentration - - Weight 79.4 kg (175 lb 0.7 oz) 03/31/2024 3:30 P M EDT Height 162.6 cm (5' 4 ) 03/31/2024 3:30 PM EDT Body Mass Index 30.05 03/31/2024 3:30 PM EDT documented in this encounter Miscellaneous Notes * Progress Notes - Acacia Scott APRN - 03/31/2024 4:00 PM EDT Images from the original note were not included. Supriya Andres is a 73 y.o. female with CAD s/p CABG, stent to LAD with AMY in May 2019 and as recent as 04/30/2020 she was found to have ISRS of the distal portion of the mid LAD with a mildly reduced EF of 45-50% (both done by Dr. Abdalla at [facility]). She also has a h/o AF, CORNELIA, HTN, and hyperlipidemia. She has been followed by Dr. Mar for the AF and underwent PVI on October 29, 2019. Today: Muscle cramps for 3-4 months every day-hands mostly 12/2023 K- 4.0, sodium 140, calcium 9.0 Denies any chest pain, orthopnea, palpitations, dizziness, syncope, fatigue or edema. Chronic shortness of breath-stable CMR- Ruled out possible apical outpouching/aneurysm. Cardiac [...] Diagnosis Date Abnormal ECG Asthma Atrial fibrillation ([facility]) CHF (congestive heart failure) ([facility]) 2002 COPD (chronic obstructive pulmonary disease) ([facility]) Coronary artery disease 2002 Gastroesophageal reflux disease without esophagitis Hypercholesteremia Hypertension Obstructive sleep apnea (adult) (pediatric) CORNELIA on CPAP Old myocardial infarction History of myocardial infarction Restless leg syndrome Surgical History Past Surgical History: Procedure Laterality Date ABLATION OF DYSRHYTHMIC FOCUS AORTIC VALVE REPLACEMENT BILIARY DRAINAGE N/A Atrial Cardioversion from [facility] CARDIAC CATHETERIZATION CAROTID STENT CATH STENT PLACEMENT/ CATH PLACEMENT OF STENT N/A Cath Stent Placement from [facility] COLON SURGERY N/A Colon Surgery from [facility] CORONARY ANGIOPLASTY CORONARY ARTERY BYPASS GRAFT N/A CABG from [facility] CORONARY STENT PLACEMENT HYSTERECTOMY N/A Hysterectomy from [facility] TOTAL KNEE ARTHROPLASTY N/A Knee Replacement from [facility] Family History family history includes Coronary artery disease in her father and mother. Social History reports that she quit smoking about 15 months ago. Her smoking use included cigarettes. [...] (two) times a day. 180 tablet 3 escitalopram (Lexapro) 20 MG tablet Take 1 tablet (20 mg total) by mouth 1 (one) time each day. 30 tablet 2 Evolocumab 140 MG/ML solution auto-injector Inject 1 [...] into each nostril 1 (one) time eachday. furosemide (Lasix) 20 MG tablet Take 1 [...] tablet (10 mg) by mouth every night. omalizumab (Xolair) 150 MG/ML injection every 28 (twenty-eight) days. rOPINIRole (Requip) 1 MG tablet Take 1 tablet (1 mg) by mouth 3 (three) times a day. 1 tab in the morning, 1 tab in the evening, 1 tab nightly temazepam (Restoril) 15 MG capsule Take 1 capsule (15 mg) by mouth every night. No current facility-administered medications for this visit. Physical Exam Constitutional: Appearance: Normal appearance. Mildly obese Cardiovascular: Rate and Rhythm: Normal rate and regular rhythm. Heart sounds: Normal heart sounds. Pulmonary: Effort: Pulmonary effort is normal. Breath sounds: Normal breath sounds. Skin: General: Skin is warm and dry. Neurological: General: No focal deficit present. Mental Status: She is alert and oriented to person, place, and time. Psychiatric: Mood and Affect: Mood normal. Behavior: Behavior normal. Visit Vitals BP 137/80 (BP Location: Right arm, Patient Position: Sitting, BP Cuff Size: Adult) Pulse 74 Ht 1.626 m (5' 4 ) Wt 79.4 kg (175 lb 0.7 oz) SpO2 98% BMI 30.05 kg/m?? Cardiac Testing Imaging No echocardiogram results found for the past 12 months Labs Lab Results Component Value Date HGB 14.6 08/20/2022 HCT 42.9 08/20/2022 PLT 302 08/20/2022 ALT 14 03/31/2024 AST 24 03/31/2024 NA 143 03/31/2024 K 3.6 (L) 03/31/2024 CREATININE 0.86 03/31/2024 BUN 9 03/31/2024 CO2 26 03/31/2024 TSH 2.36 08/07/2022 INR 1.0 08/07/2022 Assessment and Plan HLD/Muscle cramps -Hold repatha-will have Teressa call her in 2 weeks to see if any relief -Could do Inclisiran CAD -s/p ISRS of LAD -AMY placed to mid LAD 2018 -asymptomatic and doing well -Continue Aspirin BB and repatha. -Continue cholesterol management-goal LDL <70 PAF -Continue f/u with EP -Rate controlled with BB -Anticoagulated with Eliquis for CHADS-VASC score of 3 HTN -BP WNL; continue to monitor at home -Continue current medications Follow-up in 6 months or sooner if needed. A total time of 30 minutes was [...] Description 03/30/2025 2:00 PM EDT Office Visit [facility] [place] [address], [address] [place] [address] Acacia Scott APRN [address] [place] [address] Scheduled Procedures Name Priority Associated Diagnoses Date/Ti me ARTHROPLASTY, HIP, TOTAL Arthritis of right hip documented as of this encounter Procedures Procedure Name Priority Date/Time Associated Diagnosis Comments MAGNESIUM, PLASMA Routine 03/31/2024 4:0 8 PM EDT Muscle cramps COMPREHENSIVE METABOLIC PANEL, PLASMA Routine 03/31/2024 4:08 PM EDT Muscle cramps documented in this encounter Results * Magnesium (03/31/2024 4:08 PM EDT) Pathologist [facility] Magnesium, Plasma 1.9 1.9 - 2.4 mg/dL 03/31/2024 6:11 PM EDT [facility] Blood Venous blood specimen / Unknown Venipuncture / Unknown 03/31/2024 4:08 PM EDT 03/31/2024 4:08 PM EDT us Acacia Scott APRN LAB BLOOD ORDERABLES Fin al Result [facility] [address] [place] [address] * (ABNORMAL) Comprehensive Metabolic Panel, Plasma (03/31/2024 4:08 PM EDT) Glucose, Plasma 98 74 - 99 mg/dL 03/31/2024 6:11 PM EDT [facility] BUN, Plasma 9 8 - 23 mg/dL 03/31/2024 6:11 PM EDT [facility] Creatinine, Plasma 0.86 0.60 - 1.10 mg/dL 03/31/2024 6:11 PM EDT [facility] BUN/Creatinine Ratio 10 03/31/2024 6:11 PM EDT [facility] Sodium, Plasma 143 136 - 145 mmol/L 03/31/2024 6:11 PM EDT [facility] Potassium, Plasma 3.6(L) 3.7 - 4.8 mmol/L 03/31/2024 6:11 PM EDT [facility] Chloride, Plasma 108(H) 97 - 107 mmol/L 03/31/2024 6:11 PM EDT [facility] CO2, Plasma 26 22 - 29 mmol/L 03/31/2024 6:11 PM T [facility] Anion Gap 9 6 - 16 mmol/L 03/31/2024 6:11 PM T [facility] Total Calcium, Plasma 9.2 8.9 - 10.2 mg/dL 03/31/2024 6:11 PM T [facility] Total Protein 6.5 6.3 - 7.9 g/dL 03/31/2024 6:11 PM [facility] Albumin, Plasma 4.0 3.5 - 5.2 g/dL 03/31/2024 6:11 PM [facility] AST, Plasma 24 10 - 35 U/L 03/31/2024 6:11 PM [facility] ALT, Plasma 14 10 - 35 U/L 03/31/2024 6:11 PM T [facility] Alkaline Phosphatase, Plasma 86 46 - 142 U/L 03/31/2024 6:11 PM T [facility] Total Bilirubin, Plasma 0.7 0.2 - 1.1 mg/dL 03/31/2024 6:11 PM EDT [facility] eGFRcr 71.9 mL/min/1.7 3m*2 03/31/2024 6:11 PM [facility] Comment:Reported eGFRcr in m L/min/1.73m2 is based the CKD-EPI 2020 equation that does not use a race coefficient. Blood Venous blood specimen / Unknown Venipuncture / Unknown 03/31/2024 4:08 PM EDT 03/31/2024 4:08 PM EDT Acacia Scott APRN LAB BLOOD ORDERABLES Fin al Result [facility] [address] [place] [address] documented in this encounter Visit Diagnoses Diagnosis Muscle cramps- Primary Mixed hyperlipidemia Coronary artery disease involving [place] coronary artery of [place] heart without angina pectoris PAF (paroxysmal atrial fibrillation) ([facility]) Atrial fibrillation Primary hypertension Unspecified essential hypertension documented in this encounter Additional Health Concerns Assessment Noted Time A fall risk assessment has been complete d for the patient 03/31/2024 3:39 PM EDT A Body Mass Index follow-up plan has been documented for the patient 04/10/2024 10:45 PM EDT documented as of this encounter Care Teams Aircraft Engine Mechanic Overhaul Relationship Specialty Start Date End Date Michael Baez MD [facility] [place] [address] PCP - General 04/08/21 Acacia Scott APRN [address] [place] [address] Nurse Practitioner Cardiology 03/27/22 documented as of this encounter
--- OUTSIDE RECORDS SUMMARY | 2024-10-13 13:25 | XMS_ITS | Encounter Summary ---
Author Organization Healthcare Address [address] [place] [address] Care Team Providers Care Brewing Technician Name Role Phone Michael Baez MD Primary Care Provider + [phone] Acacia Scott HAM STRIPPER Unavailable [phone] Encounter Details Date Type Department Care Team (Latest Contact Info) Description 03/06/2023 Travel Social History Tobacco Use Types Packs/Day [...] drink first t pippa in the morning (EYE-IT HELP DESK ASSOCIATE) to steady your nerves or to [...] Description 03/30/2025 2:00 PM EDT Office Visit [facility] [place] [address], [address] [place] [address] Acacia Scott APRN [address] [place] [address] Scheduled Procedures Name Priority Associated [...] documented as of this encounter Care Teams Brewing Technician Relationship Specialty Start Date End Date Michael Baez MD [address] [place] [address] PCP - General 04/08/21 Acacia Scott APRN [address] [place] [id number] Nurse Practitioner Cardiology 03/27/22 documented as of this encounter
--- OUTSIDE RECORDS SUMMARY | 2024-10-13 13:26 | XMS_ITS | Encounter Summary ---
Author Organization Healthcare Address [address] [place] [address] Care Team Providers Care Mate Ship Name Role Phone Michael Baez MD Primary Care Provider + [phone] Acacia Scott VP & GENERAL COUNSEL Unavailable [phone] Encounter Details Date Type Department Care Team (Late st Contact Info) Description 11/03/2022 [facility] [place] [address], [address] [place] [address] Acacia Scott, VP & GENERAL COUNSEL [address] [place] [address] Social History Tobacco Use Types [...] drink first t pippa in the morning (EYE-LAY UPS ASSEMBLER) to steady your nerves or to [...] suspected to have Coronavirus/COVID-19? No / Unsure 11/03/2022 8:26 AM EST documented as of this encounter Plan of Treatment Upcoming Encounters Date Type Department Care Team (Late st Contact Info) Description 03/30/2025 2:00 PM EDT Office Visit [facility] [place] [address], [address] [place] [address] Aaccia Scott APRN [address] [place] [address] Scheduled Procedures Name Priority Associated Diagnoses Date/Ti me ARTHROPLASTY, HIP, TOTAL Arthritis of right hip documented as of this encounter Visit Diagnoses Not on filedocumented in this encounter Additional Health Concerns Assessment Noted Time A fall risk assessment has been complete d for the patient 11/03/2022 8:37 AM EST documented as of this encounter Care Teams Mate Ship Relationship Specialty Start Date End Date Michael Baez MD [address] [place] [address] PCP - General 04/08/21 Acacia Scott APRN [address] [place] [address] Nurse Practitioner Cardiology 03/27/22 documented as of this encounter
--- OUTSIDE RECORDS SUMMARY | 2024-10-13 13:26 | XMS_ITS | Encounter Summary ---
Author Organization Healthcare Address [address] [place] [address] Care Team Providers Care Garment Patternmaker Name Role Phone Michael Baez MD Primary Care Provider + [phone] Acacia Scott INSTITUTION DIRECTOR Unavailable [phone] Encounter Details Date Type Department Care Team (Latest Contact Info) Description 08/15/2022 Travel Social History Tobacco Use Types Packs/Day Years Used Date Smoking Tobacco: Former Smokeless Tobacco: Never Comments Unknown Sex and Gender Information Value Date Recorded Sex Assigned at Not on file Legal Sex Female 7:36 PM EDT Gender Identity Not on file Sexual Orientation Not on file COVID-19 Exposure Response Date Recorded In the last 10 days, have yo u been in contact with someone who was confirmed or suspected to have Coronavirus/COVID-19? No / Unsure 08/15/2022 5:13 PM EDT documented as of this encounter Plan of Treatment Upcoming Encounters Date Type Department Care Team (Late st Contact Info) Description 03/30/2025 2:00 PM EDT Office Visit [facility] [place] [address], [address] [place] [address] Acacia Scott, INSTITUTION DIRECTOR [address] [place] [address] Scheduled Procedures Name Priority Associated Diagnoses Date/Ti me ARTHROPLASTY, HIP, TOTAL Arthritis of right hip documented as of this encounter Visit Diagnoses Not on filedocumented in this encounter Additional Health Concerns Assessment Noted Time A fall risk assessment has been complete d for the patient 03/24/2022 2:26 PM EDT documented as of this encounter Care Teams Garment Patternmaker Relationship Specialty Start Date End Date Michael Baez MD [address] [place] [address] PCP - General 04/08/21 Acacia Scott APRN [address] [place] [address] Nurse Practitioner Cardiology 03/27/22 documented as of this encounter
--- OUTSIDE RECORDS SUMMARY | 2024-10-13 13:26 | XMS_ITS | Encounter Summary ---
Author Organization [facility] Address [address] [place] [id number] Care Team Providers Care Radio Equipment Repairer Name Role Phone Michael Baez MD Primary Care Provider + [phone] Encounter Details Date Type Department Care Team (Late Contact Info) Description 01/18/2022 Refill [facility] [place] [address] , [address] [place] [address] Acacia Scott CANE BURNER [address] [place] [address] Social History Tobacco Use Types [...] Description 03/30/2025 2:00 PM EDT Office Visit [facility] [place] [address], [address] [place] [address] Acacia Scott CANE BURNER [address] [place] [address] Scheduled Procedures Name Priority Associated Diagnoses Date/Ti me ARTHROPLASTY, HIP, TOTAL Arthritis of right hip documented as of this encounter Visit Diagnoses Not on filedocumented in this encounter Additional Health Concerns Assessment Noted Time A fall risk assessment has been complete d for the patient 09/22/2021 3:05 PM EDT documented as of this encounter Care Teams Radio Equipment Repairer Relationship Specialty Start Date End Date Michael Baez MD [address] [place] [address] PCP - General 04/08/21 documented as of this encounter
--- OUTSIDE RECORDS SUMMARY | 2024-10-13 13:26 | XMS_ITS | Encounter Summary ---
Author Organization Healthcare Address [address] [place] [address] Care Team Providers Care Devulcanizer Head Name Role Phone Michael Baez MD Primary Care Provider + [phone] Acacia Scott DOUBLE NEEDLE STITCHER Unavailable [phone] Reason for Visit * Reason Onset Date Comments HCN - Patient Message 08/08/2022 ER Dischar ge patient with Active Referral seeks scheduling with Amelia Bee Encounter Details Date Type Department Care Team (Late st Contact Info) Description 08/08/2022 Telephone [place] [facility] [address] [place] [address] Amelia Bee W, DOUBLE NEEDLE STITCHER, DNP [address] [place] [address] HCN - Patient Message (ER Discharge patient with Active Referral seeks scheduling with Amelia Bee) Social History Tobacco Use Types Packs/Day Years Used Date Smoking Tobacco: Former Smokeless Tobacco: Never CAGE ASSESSMENT Answer Date Recorded Cage unable [...] drink first t pippa in the morning (EYE-COMMUNITY RECREATION COORDINATOR) to steady your nerves or to get [...] suspected to have Coronavirus/COVID-19? No / Unsure 08/17/2022 9:13 AM EDT documented as of this encounter Miscellaneous Notes * Telephone Encounter - Priti Ceja - 08/09/2022 2:06 PM EDT Attempted to call pt, msg stated not taking calls. Mailed reminder . If pt calls please give her the appt info * Telephone Encounter - Rosemary Roldan - 08/09/2022 9:43 AM EDT Patient Phone Message Reason for Call: Patient is calling back regarding m atter below. Please advise. Best contact number and optimal time of day to reach caller: [phone] Note: Please do not reply to this message. Follow-up communication and further actions as a result of this message need to be communicated with the patient directly, if the patient is not active onMyChart. If the patient is active on MyChart, they will receive notification of the communication/outcome via [employer]. * Telephone Encounter - Kai Hudson - 08/08/2022 11:15 AM EDT Patient Phone Message Reason for Call: ER Discharge patient with Active Referral seeks scheduling with Amelia Bee Best contact number and optimal time of day to reach caller: [phone]. Note: Please do not reply to this message. Follow-up communication and further actions as a result of this message need to be communicated with the patient directly, if the patient is not active onMyChart. If the patient is active on MyChart, they will receive notification of the communication/outcome via MyChart. documented in this encounter Plan of Treatment Upcoming Encounters Date Type Department Care Team (Late st Contact Info) Description 03/30/2025 2:00 PM EDT Office Visit [facility] [place] [address], [address] [place] [address] Acacia Scott APRN [address] [place] [address] Scheduled Procedures Name Priority Associated Diagnoses Date/Ti me ARTHROPLASTY, HIP, TOTAL Arthritis of right hip documented as of this encounter Visit Diagnoses Not on filedocumented in this encounter Additional Health Concerns Assessment Noted Time A fall risk assessment has been complete d for the patient 03/24/2022 2:26 PM EDT documented as of this encounter Care Teams Devulcanizer Head Relationship Specialty Start Date End Date Michael Baez MD [address] [place] [address] PCP - General 04/08/21 Acacia Scott APRN [address] [place] [address] Nurse Practitioner Cardiology 03/27/22 documented as of this encounter
--- OUTSIDE RECORDS SUMMARY | 2024-10-13 13:26 | XMS_ITS | Encounter Summary ---
Author Organization Healthcare Address [address] [place] [address] Care Team Providers Care Fur Blender Name Role Phone Michael Baez MD Primary Care Provider + [phone] Acacia Scott RACING SECRETARY AND HANDICAPPER Unavailable [phone] Encounter Details Date Type Department Care Team (Latest Contact Info) Description 11/02/2022 Travel Social History Tobacco Use Types Packs/Day Years Used Date Smoking Tobacco: Some Days Cigarettes Smokeless Tobacco: Never CAGE ASSESSMENT Answer Date [...] drink first t pippa in the morning (EYE-BLUEPRINT ENGINEER) to steady your nerves or to [...] Description 03/30/2025 2:00 PM EDT Office Visit [facility] [place] [address], [address] [place] [address] Acacia Scott APRN [address] [place] [address] Scheduled Procedures Name Priority Associated Diagnoses Date/Ti me ARTHROPLASTY, HIP, TOTAL Arthritis of right hip documented as of this encounter Visit Diagnoses Not on filedocumented in this encounter Additional Health Concerns Assessment Noted Time A fall risk assessment has been complete d for the patient 03/24/2022 2:26 PM EDT documented as of this encounter Care Teams Fur Blender Relationship Specialty Start Date End Date Michael Baez MD [address] [place] [address] PCP - General 04/08/21 Acacia Scott APRN [address] [place] [address] Nurse Practitioner Cardiology 03/27/22 documented as of this encounter
--- OUTSIDE RECORDS SUMMARY | 2024-10-13 13:26 | XMS_ITS | Encounter Summary ---
Author Organization Healthcare Address [address] [place] [address] Care Team Providers Care Networker Name Role Phone Michael Baez MD Primary Care Provider + [phone] Acacia Scott SCORING MACHINE OPERATOR Unavailable [phone] Encounter Details Date Type Department Care Team (Latest Contact Info) Description 11/03/2022 Travel Social History Tobacco Use Types Packs/Day [...] drink first t pippa in the morning (EYE-DEPUTY INSURANCE COMMISSIONER) to steady your nerves or to get [...] Description 03/30/2025 2:00 PM EDT [facility] [place] [address], [address] [place] [address] Acacia Scott APRN [address] [place] [address] Scheduled Procedures Name Priority Associated Diagnoses Date/Ti me ARTHROPLASTY, HIP, TOTAL Arthritis of right hip documented as of this encounter Visit Diagnoses Not on filedocumented in this encounter Additional Health Concerns Assessment Noted Time A fall risk assessment has been complete d for the patient 11/03/2022 8:37 AM EST documented as of this encounter Care Teams Networker Relationship Specialty Start Date End Date Michael Baez MD [facility] [facility] [address] [place] [address] PCP - General 04/08/21 Acacia Scott APRN [address] [place] [address] Nurse Practitioner Cardiology 03/27/22 documented as of this encounter
--- OUTSIDE RECORDS SUMMARY | 2024-10-13 13:26 | XMS_ITS | Encounter Summary ---
Author Organization [facility] Address [address] [place] [address] Care Team Providers Care Cement Or Concrete Finishing Supervisor Name Role Phone Michael Baez MD Primary Care Provider + [phone] Encounter Details Date Type Department Care Team (Latest Contact Info) Description 09/22/2021 Travel Social History Tobacco Use Types Packs/Day Years Used Date Smoking Tobacco: Former Smokeless Tobacco: Never Comments Unknown Sex and Gender Information Value Date Recorded Sex Assigned at Not on file Legal Sex Female 7:36 PM EDT Gender Identity Not on file Sexual Orientation Not on file COVID-19 Exposure Response Date Recorded In the last month, have you been in contact with someone who was confirmed or suspected to have Coronavirus / COVID-19? No / Unsure 09/22/2021 1:49 PM EDT documented as of this encounter Plan of Treatment Upcoming Encounters Date Type Department Care Team (Late st Contact Info) Description 03/30/2025 2:00 PM EDT Office Visit [facility] [place] [address], [address] [place] [address] Acacia Scott, TELEPHONE INTERVIEWER [address] [place] [address] Scheduled Procedures Name Priority Associated Diagnoses Date/Ti me ARTHROPLASTY, HIP, TOTAL Arthritis of right hip documented as of this encounter Visit Diagnoses Not on filedocumented in this encounter Additional Health Concerns Assessment Noted Time A fall risk assessment has been complete d for the patient 09/22/2021 3:05 PM EDT documented as of this encounter Care Teams Cement Or Concrete Finishing Supervisor Relationship Specialty Start Date End Date Michael Baez MD [address] [place] [address] PCP - General 04/08/21 documented as of this encounter
--- OUTSIDE RECORDS SUMMARY | 2024-10-13 13:26 | XMS_ITS | Encounter Summary ---
Author Organization [facility] Address [address] [id number] Care Team Providers Care Adult Educator Name Role Phone Michael Baez MD Primary Care Provider + [phone] Encounter Details Date Type Department Care Team (Late Contact Info) Description 01/18/2022 Refill [facility] [place] [address] , [address] [place] [address] Acacia Scott SUPERVISOR CELLARS [address] [place] [address] Social History Tobacco Use Types [...] Description 03/30/2025 2:00 PM EDT Office Visit [facility] [place] [address], [address] [place] [address] Acacia Scott SUPERVISOR CELLARS [address] [place] [address] Scheduled Procedures Name Priority Associated Diagnoses Date/Ti me ARTHROPLASTY, HIP, TOTAL Arthritis of right hip documented as of this encounter Visit Diagnoses Not on filedocumented in this encounter Additional Health Concerns Assessment Noted Time A fall risk assessment has been complete d for the patient 09/22/2021 3:05 PM EDT documented as of this encounter Care Teams Adult Educator Relationship Specialty Start Date End Date Michael Beaz MD [address] [place] [address] PCP - General 04/08/21 documented as of this encounter
--- OUTSIDE RECORDS SUMMARY | 2024-10-13 13:26 | XMS_ITS | Encounter Summary ---
Author Organization [facility] Address [address] [id number] Care Team Providers Care Complex Human Resources Manager Name Role Phone Michael Baez MD Primary Care Provider + [phone] Encounter Details Date Type Department Care Team (Late Contact Info) Description 11/08/2021 Refill [facility] [place] [address] , [address] [place] [address] Acacia Scott WEBBING INSPECTOR [address] [place] [address] Social History Tobacco Use Types [...] Description 03/30/2025 2:00 PM EDT Office Visit [facility] [place] [address], [address] [place] [address] Acacia Scott WEBBING INSPECTOR [address] [place] [address] Scheduled Procedures Name Priority Associated Diagnoses Date/Ti me ARTHROPLASTY, HIP, TOTAL Arthritis of right hip documented as of this encounter Visit Diagnoses Not on filedocumented in this encounter Additional Health Concerns Assessment Noted Time A fall risk assessment has been complete d for the patient 09/22/2021 3:05 PM EDT documented as of this encounter Care Teams Complex Human Resources Manager Relationship Specialty Start Date End Date Michael Baez MD [address] [place] [address] PCP - General 04/08/21 documented as of this encounter
--- OUTSIDE RECORDS SUMMARY | 2024-10-13 13:26 | XMS_ITS | Encounter Summary ---
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 No / Unsure 09/21/2022 3:48 PM EDT documented as of this encounter Plan of Treatment Upcoming Encounters Date Type Department Care Team (Late st Contact Info) Description 03/30/2025 2:00 PM EDT Office Visit [facility] [place] [address], [address] [place] [address] Acacia Scott APRN [address] [place] [address] Scheduled Procedures Name Priority Associated Diagnoses Date/Ti me ARTHROPLASTY, HIP, TOTAL Arthritis of right hip documented as of this encounter Visit Diagnoses Not on filedocumented in this encounter Additional Health Concerns Assessment Noted Time A fall risk assessment has been complete d for the patient 03/24/2022 2:26 PM EDT documented as of this encounter Care Teams Master Cosmetologist Relationship Specialty Start Date End Date Michael Baez MD [address] [place] [address] PCP - General 04/08/21 Acacia Scott APRN [address] [place] [address] Nurse Practitioner Cardiology 03/27/22 documented as of this encounter
--- OUTSIDE RECORDS SUMMARY | 2024-10-13 13:26 | XMS_ITS | Encounter Summary ---
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 0 08/17/2022 CAGE Questionnaire Score 0 022 Comments Unknown Sex and Gender Information Value Date Recorded Sex Assigned at Not on file Legal Sex Female 7:36 PM EDT Gender Identity Not on file Sexual Orientation Not on file COVID-19 Exposure Response Date Recorded In the last 10 days, have eddi u been in contact with someone who [...] (two) times a day if needed. 08/15/2021 furosemide (Lasix) 20 MG tablet Take 1 [...] time each day. 90 tablet 3 08/18/2021 omalizumab (Xolair) 150 MG/ML injection every 28 [...] Call 911 after use. 3 nystatin (Mycostatin) [id number] UNIT/ML suspension 10/25/2022 3 documented as of this encounter Plan of Treatment Upcoming Encounters Date Type Department Care Team (Late st Contact Info) Description 03/30/2025 2:00 PM EDT Office Visit [facility] [place] [address] [facility] [address] [facility], [address] [place] [address] Acacia Scott APRN [address] [place] [address] Scheduled Procedures Name Priority Associated Diagnoses Date/Ti me ARTHROPLASTY, HIP, TOTAL Arthritis of right hip documented as of this encounter Procedures Procedure Name Priority Date/Time Associated Diagnosis Comments XR SCOLIOSIS ENTIRE SPINE 2 OR 3 VIEWS Routine 11/03/2022 9:52 AM EST Lumbar spondylosis documented in this encounter Results * XR Scoliosis Entire Spine 2 or 3 Views (11/03/2022 9:52 AM EST) Anatomical Region Laterality Modality Spine Digital Radiogra phy Impressions 11/03/2022 10:16 AM EST Curvature of the thoracic spine to the right of approximately 17 degrees. Anterolisthesis of L4 on L5 which is stable in both flexion and extension views. CRITICAL RESULT: ?? No. COMMUNICATION: Per this written report. Dictated by Janet Lee MD on 11/03/2022 10:09 AM Signed by Janet Lee MD on 11/03/2022 10:16 AM Narrative 11/03/2022 10:16 AM EST Exam/Procedure: XR SCOLIOSIS ENTIRE SPINE 2 OR 3 VIEWS, XR LUMBAR SPINE 2 OR 3 VIEWS ordered by AMELIA OCAMPO [id number] CLINICAL INDICATION: Back pain TECHNIQUE: 2 views of the entire spine in flexion and extension views of the lumbar spine COMPARISON: None. FINDINGS: There are multilevel degenerative changes identified diffusely throughout the thoracic and lumbar spine. No inducible instability in flexion or extension views with disc space narrowing most pronounced at the L3/L4 level. There is mild anterolisthesis identified of L4 on L5 which is stable in both flexion and extension views. Mild curvature identified of the thoracic spine with convexity to the right of approximately 17 degrees. Procedure Note Janet Lee MD - 11/03/2022 Exam/Procedure: XR SCOLIOSIS ENTIRE SPINE 2 OR 3 VIEWS, XR LUMBAR SPINE 2OR 3 VIEWS ordered by AMELIA OCAMPO, [id number] CLINICAL INDICATION: Back pain TECHNIQUE: 2 views of the entire spine in flexion and extension views of the lumbarspine COMPARISON: None. FINDINGS: There are multilevel degenerative changes identified diffusely throughoutthe thoracic and lumbar spine. No inducible instability in flexion orextension views with disc space narrowing most pronounced at the L3/C4wkbwn. There is mild anterolisthesis identified of L4 on L5 which isstable in both flexion and extension views. Mild curvature identified of the thoracic spine with convexity to theright of approximately 17 degrees. IMPRESSION: Curvature of the thoracic spine to the right of approximately 17 degrees.Anterolisthesis of L4 on L5 which is stable in both flexion and extensionviews. CRITICAL RESULT: No. COMMUNICATION: Per this written report. Dictated by Janet Lee MD on 11/03/2022 10:09 AM Signed by Janet Lee MD on 11/03/2022 10:16 AM Amelia Ocampo APRN, DNP IMG XR PROCEDURES Fi nal Result documented in this encounter Visit Diagnoses Diagnosis Lumbar spondylosis Lumbosacral spondylosis without myelopathy documented in this encounter Additional Health Concerns Assessment Noted Time A fall risk assessment has been complete d for the patient 11/03/2022 8:37 AM EST documented as of this encounter Care Teams Clam Shovel Operator Relationship Specialty Start Date End Date Michael Baez MD [address] [place] [address] PCP - General 04/08/21 Acacia Scott APRN [address] [place] [address] Nurse Practitioner Cardiology 03/27/22 documented as of this encounter
--- OUTSIDE RECORDS SUMMARY | 2024-10-13 13:26 | XMS_ITS | Encounter Summary ---
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 Chest wo IV Contrast (08/07/2022 [...] WO IV CONTRAST ordered by GUILLERMO PHILIP, [id number] CLINICAL INDICATION: Low back pain, no red [...] WO IV CONTRAST ordered by GUILLERMO PHILIP, [id number] CLINICAL INDICATION: Low back pain, no red [...] Supriya Slaughter MD on 08/07/2022 1:47 PM us Guillermo Philip MD IMG CT PROCEDURES Final R esult * CT Lumbar Spine wo IV Contrast (08/07/2022 1:12 PM EDT) Anatomical Region Laterality Modality Spine, L-spine Computed Tomogra phy Impressions 08/07/2022 1:47 PM [...] WO IV CONTRAST ordered by GUILLERMO PHILIP, [id number] CLINICAL INDICATION: Low back pain, no red [...] WO IV CONTRAST ordered by GUILLERMO PHILIP, [id number] CLINICAL INDICATION: Low back pain, no red [...] Supriya Slaughter MD on 08/07/2022 1:47 PM us Guillermo Philip MD IMG CT PROCEDURES Final R esult * CT Thoracic Spine wo IV Contrast (08/07/2022 1:12 PM EDT) Anatomical Region Laterality Modality Spine, T-spine Computed Tomogra phy Impressions 08/07/2022 1:47 PM [...] WO IV CONTRAST ordered by GUILLERMO PHILIP, [id number] CLINICAL INDICATION: Low back pain, no red [...] WO IV CONTRAST ordered by GUILLERMO PHILIP, [id number] CLINICAL INDICATION: Low back pain, no red [...] MD on 08/07/2022 1:25 PM Signed by Supirya Slaughter MD on 08/07/2022 1:47 PM Guillermo Philip MD IMG CT PROCEDURES Final R esult * Protime-INR (08/07/2022 12:06 PM EDT) Prothrombin Time 12.8 12.0 - 14.3 sec 08/07/2022 12:26 PM EDT [facility] INR 1.0 0.9 - 1.1 08/07/2022 12:26 PM EDT [facility] Blood Venous blood specimen / Unknown Venipuncture / Unknown 08/07/2022 12:06 PM EDT 08/07/2022 12:13 PM EDT Narrative [facility] - 08/07/2022 12:26 PM EDT OPTIMAL INR RANGES FOR PATIENT ON ORAL ANTICOAGULANT THERAPY Prevention of venous thromboembolism ?INR 2.0 to 3.0 In patients with heart disease: Atrial fibrillation ?INR 2.0 to 3.0 Valvular heart disease ? INR 2.0 to 3.0 Tissue heart valves ?INR 2.0 to 3.0 Mechanical prosthetic valves ? INR 2.5 to 3.5 Prevention of recurrent SC ? INR 2.5 to 3.5 Guillermo Philip MD LAB BLOOD ORDERABLES Anastacia l Result [facility] [address] [place] [address] * HIV 1 & 2 Antibody/Antigen Screen (08/07/2022 11:09 AM EDT) Pathologist [facility] HIV 1 & 2 Antibody/Anti gen Screen Nonreactive Nonreactive 08/07/2022 1:34 PM EDT [facility] Blood Venous blood specimen / Unknown Venipuncture / Unknown 08/07/2022 11:09 AM EDT 08/07/2022 11:15 AM EDT us Guillermo Philip MD LAB BLOOD ORDERABLES Anastacia sneed Result [facility] [address] [place] [address] * (ABNORMAL) CBC w/diff (08/07/2022 11:09 AM EDT) [facility] WBC Count 8.63 3.70 - 10.30 10*3/uL LAB HEMATOLOGY METHOD 08/07/2022 11:19 AM EDT [facility] RBC Count 4.84 3.90 - 5.20 10*6/uL LAB HEMATOLOGY METHOD 08/07/2022 11:19 AM EDT [facility] HGB 15.1 11.2 - 15.7 g/dL LAB HEMATOLOGY METHOD 08/07/2022 11:19 AM EDT [facility] HCT 45.1(H) 34.0 - 45.0 % LAB HEMATOLOGY METHOD 08/07/2022 11:19 AM EDT [facility] Platelet Count 365 155 - 369 10*3/uL LAB HEMATOLOGY METHOD 08/07/2022 11:19 AM EDT [facility] MCV 93 79 - 98 fL LAB HEMATOLOGY METHOD 08/07/2022 11:19 AM EDT [facility] MCH 31.2 26.0 - 32.0 pg LAB HEMATOLOGY METHOD 08/07/2022 11:19 AM EDT [facility] MCHC 33.5 30.7 - 35.5 g/dL LAB HEMATOLOGY METHOD 08/07/2022 11:19 AM EDT [facility] RDW 13.6 11.5 - 14.5 % LAB HEMATOLOGY METHOD 08/07/2022 11:19 AM EDT [facility] MPV 9.2 8.8 - 12.5 fL LAB HEMATOLOGY METHOD 08/07/2022 11:19 AM EDT [facility] nRBC 0.0 <=0.0 per 100 WBCs LAB HEMATOLOGY METHOD 08/07/2022 11:19 AM EDT [facility] Differential Type Automated LAB HEMATOLOGY METHOD 08/07/2022 11:19 AM EDT [facility] Neutrophils % 56.0 % LAB HEMATOLOGY METHOD 08/07/2022 11:19 AM EDT [facility] Lymphocytes % 30.0 % LAB HEMATOLOGY METHOD 08/07/2022 11:19 AM EDT [facility] Monocytes % 8.0 % LAB HEMATOLOGY METHOD 08/07/2022 11:19 AM EDT [facility] Eosinophils % 5.0 % LAB HEMATOLOGY METHOD 08/07/2022 11:19 AM EDT [facility] Basophils % 1.0 % LAB HEMATOLOGY METHOD 08/07/2022 11:19 AM EDT [facility] Immature Granulocytes % 0.0 % LAB HEMATOLOGY METHOD 08/07/2022 11:19 AM EDT [facility] Neutrophils Absolute 4.80 1.60 - 6.10 10*3/uL LAB HEMATOLOGY METHOD 08/07/2022 11:19 AM EDT [facility] Lymphocytes Absolute 2.62 1.20 - 3.90 10*3/uL LAB HEMATOLOGY METHOD 08/07/2022 11:19 AM EDT [facility] Monocytes Absolute 0.67 0.30 - 0.90 10*3/uL LAB HEMATOLOGY METHOD 08/07/2022 11:19 AM EDT [facility] Eosinophils Absolute 0.45 0.00 - 0.50 10*3/uL LAB HEMATOLOGY METHOD 08/07/2022 11:19 AM EDT [facility] Basophils Absolute 0.07 0.00 - 0.10 10*3/uL LAB HEMATOLOGY METHOD 08/07/2022 11:19 AM EDT [facility] Immature Granulocytes Absolute 0.02 0.00 - 0.06 10*3/uL LAB HEMATOLOGY METHOD 08/07/2022 11:19 AM EDT [facility] Blood Venous blood specimen / Unknown Venipuncture / Unknown 08/07/2022 11:09 AM EDT 08/07/2022 11:17 AM EDT [facility] - 08/07/2022 11:19 AM EDT Therapeutic decision making should be based on absolute values, rather than percentages. us Guillermo Philip MD LAB BLOOD ORDERABLES Anastacia l Result [facility] [address] [place] [address] * (ABNORMAL) Lactic acid, venous (08/07/2022 11:09 AM EDT) Lactate, Venous, Whole Blood 2.6(H) 0.5 - 2.2 mmol/L LAB HEMATOLOGY METHOD 08/07/2022 11:19 AM EDT [facility] Blood Venous blood specimen / Unknown Venipuncture / Unknown 08/07/2022 11:09 AM EDT 08/07/2022 11:15 AM EDT Guillermo Philip MD LAB BLOOD ORDERABLES Anastacia l Result Performing Organization Address [facility] Co de Phone Number [facility] [address] [place] [address] * TSH (08/07/2022 11:09 AM EDT) Thyroid Stimulating Hormone, Plasma 2.36 0.40 - 4.20 uIU/mL 08/07/2022 11:46 AM EDT [facility] Blood Venous blood specimen / Unknown Venipuncture / Unknown 08/07/2022 11:09 AM EDT 08/07/2022 11:17 AM EDT Guillermo Philip MD LAB BLOOD ORDERABLES Anastacia l Result Performing Organization Address [facility] Co de Phone Number [facility] [address] [place] [address] * Phosphorus (08/07/2022 11:09 AM EDT) Phosphorus, Plasma 4.0 2.5 - 4.5 mg/dL 08/07/2022 11:46 AM EDT [facility] Blood Venous blood specimen / Unknown Venipuncture / Unknown 08/07/2022 11:09 AM EDT 08/07/2022 11:17 AM EDT Guillermo Philip MD LAB BLOOD ORDERABLES Anastacia l Result Performing Organization Address [facility]/ZIP Co de Phone Number [facility] [address] [place] [address] * (ABNORMAL) Magnesium (08/07/2022 11:09 AM EDT) [facility] Magnesium, Plasma 1.8(L) 1.9 - 2.4 mg/dL 08/07/2022 11:46 AM EDT [facility] Blood Venous blood specimen / Unknown Venipuncture / Unknown 08/07/2022 11:09 AM EDT 08/07/2022 11:17 AM EDT Guillermo Philip MD LAB BLOOD ORDERABLES Anastacia l Result Performing Organization Address [facility]/ZIP Co de Phone Number [facility] [address] [place] [address] * Lipase (08/07/2022 11:09 AM EDT) [facility] Lipase, Plasma 25 19 - 63 U/L 08/07/2022 11:46 AM EDT [facility] Blood Venous blood specimen / Unknown Venipuncture / Unknown 08/07/2022 11:09 AM EDT 08/07/2022 11:17 AM EDT Guillermo Philip MD LAB BLOOD ORDERABLES Anastacia l Result [facility] [address] [place] [address] * Hepatitis C Antibody - ED (08/07/2022 11:09 AM EDT) [facility] Hepatitis C Antibody Negative Negative 08/07/2022 1:34 PM EDT [facility] Blood Venous blood specimen / Unknown Venipuncture / Unknown 08/07/2022 11:09 AM EDT 08/07/2022 11:15 AM EDT Guillermo Philip MD LAB BLOOD ORDERABLES Anastacia l Result [facility] [address] [place] [address] * (ABNORMAL) CMP (08/07/2022 11:09 AM EDT) [facility] Glucose, Plasma 108(H) 74 - 99 mg/dL [facility]07[facility]2022 [facility] BUN, Plasma 12 8 - 23 mg/dL [facility]07[facility]2022 [facility] Creatinine, Plasma 1.15(H) 0.60 - 1.10 mg/dL 08/07/2022 [facility] BUN/Creatinine Ratio 10 08/07/2022 11:46 AM EDT [facility] Sodium, Plasma 140 136 - 145 mmol/L [facility]07[facility]2022 [facility] Potassium, Plasma 4.4 3.7 - 4.8 mmol/L 08/07/2022 11:46 AM [facility] Comment:Reference range for Serum potassium is 0.2 to 0.5 mmol/L higher than Plasma range. Chloride, Plasma 102 97 - 107 mmol/L 08/07/2022 11:46 [facility] CO2, Plasma 27 22 - 29 mmol/L 08/07/2022 11:[facility] Anion Gap 11 6 - 16 mmol/L 08/07/2022 11:46 AM [facility] Total Calcium, Plasma 9.5 8.9 - 10.2 mg/dL 08/07/2022 11:[facility] Total Protein 7.0 6.3 - 7.9 g/dL 08/07/2022 11:46 AM [facility] Albumin, Plasma 4.2 3.5 - 5.2 g/dL 08/07/2022 11:[facility] AST, Plasma 20 9 - 36 U/L 08/07/2022 11:[facility] ALT, Plasma 17 8 - 33 U/L 08/07/2022 11:46 [facility] Alkaline Phosphatase, Plasma 102 46 - 142 U/L 08/07/2022 11:46 [facility] Total Bilirubin, Plasma 0.3 0.2 - 1.1 mg/dL 08/07/2022 11:46 [facility] eGFRcr 51.4 mL/min/1.7 3m*2 08/07/2022 11:46 AM [facility] Comment: Reported eGFRcr in mL/min/1.73m2 is based the CKD-EPI 2021 equation that does not use a race coefficient. Effective 06/21/22 our laboratory changed the eGFR calculation to the CKD-EPI 2021 equation from the previously reported eGFR, based on the MDRD equation. ??For comparisons between the two equations, please see laboratory website: ??[email or web address] Blood Venous blood specimen / Unknown Venipuncture / Unknown 08/07/2022 11:09 AM EDT 08/07/2022 11:17 AM EDT us Guillermo Philip MD LAB BLOOD ORDERABLES Anastacia sneed Result [facility] [address] [place], [place] [id number] documented in this encounter Visit Diagnoses Diagnosis Acute left-sided low back pain without sciatica- Primary Compression fracture of T7 vertebra, initial encounter ([facility]) documented in this encounter Administered Medications Inactive Administered Medications - up to 3 most recent administrations Medication Order MAR Action Action Date Dose Rate Site acetaminophen (Tylenol) tablet 1,000 mg 1,000 mg, Oral, Once, 1 dose, On Sun08/07/22 at 1425, STAT Given 08/07/2022 3:16 PM EDT 1,000 mg HYDROmorphone (Dilaudid) injection 1 mg 1 mg, Intravenous, Every 3 hours PRN, Starting on Sun08/07/22 at 1404, Until Sun08/07/22 at 2019, STAT, severe pain Given 08/07/2022 5:36 PM EDT 1 mg Given 08/07/2022 2:28 PM EDT 1 mg lactated Ringer's infusion 250 mL/hr, Intravenous, Once, 1 dose, On Sun08/07/22 at 1155, STAT New Bag 08/07/2022 12:09 PM EDT 250 mL/hr 250 mL/hr magnesium sulfate IVPB 2 g 2 g, Intravenous, Once, 1 dose, On Sun08/07/22 at 1155, STAT New Bag 08/07/2022 12:09 PM EDT 2 g morphine PF 4 mg 4 mg, Intravenous, Once, 1 dose, On Sun08/07/22 at 1105, STAT Given 08/07/2022 11:41 AM EDT 4 mg documented in this encounter Active and Recently Administered Medications Times are shown in EDT. Scheduled Medication Order 08/05/2022 08/06/2022 08/07/2022 acetaminophen (Tylenol) tablet 1,000 mg (COMPLETED) 1,000 mg, Oral, Once, 1 dose, On Sun08/07/22 at 1425, STAT 1516 (Given - Provid er: Gurinder Barnes) lactated Ringer's infusion (COMPLETED) 250 mL/hr, Intravenous, Once, 1 dose, On Sun08/07/22 at 1155, STAT 1209 (New Bag - Prov ider: Tamialyjewell F Cameron)1619 (Stopped - Provider: Gurinder Barnes) magnesium sulfate IVPB 2 g (COMPLETED) 2 g, Intravenous, Once, 1 dose, On Sun08/07/22 at 1155, STAT 1209 (New Bag - Prov ider: Tamialyn F Cameron)1417 (Stopped - Provider: Gurinder Barnes) morphine PF 4 mg (COMPLETED) 4 mg, Intravenous, Once, 1 dose, On Sun08/07/22 at 1105, STAT 1141 (Given - Provid er: Gurinder Barnes) PRN Medication Order 08/05/2022 08/06/2022 08/07/2022 HYDROmorphone (Dilaudid) injection 1 mg 1 mg, Intravenous, Every 3 hours PRN, Starting on Sun08/07/22 at 1404, Until Sun08/07/22 at 2019, STAT, severe pain 1428 (Given - Provid er: Gurinder Barnes)1736 (Given - Provider: Gurinder Barnes) documented in this encounter Additional Health Concerns Assessment Noted Time A fall risk assessment has been complete d for the patient 03/24/2022 2:26 PM EDT documented as of this encounter Care Teams Technology Teacher Relationship Specialty Start Date End Date Michael Baez MD [address] [place] [address] PCP - General 04/08/21 Acacia Scott APRN [address] [place] [address] Nurse Practitioner Cardiology 03/27/22 documented as of this encounter
--- OUTSIDE RECORDS SUMMARY | 2024-10-13 13:26 | XMS_ITS | Encounter Summary ---
Author Organization [facility] Address [address] [id number] Care Team Providers Care Office Machines Wirer Name Role Phone Michael Baez MD Primary Care Provider + [phone] Encounter Details Date Type Department Care Team (Late Contact Info) Description 02/15/2022 Refill [facility] [place] [address] , [address] [place] [address] Acacia Scott PROCESS VALIDATION ENGINEER [address] [place] [address] Social History Tobacco Use Types [...] Description 03/30/2025 2:00 PM EDT Office Visit [facility] [place] [address], [address] [place] [address] Acacia Scott PROCESS VALIDATION ENGINEER [address] [place] [address] Scheduled Procedures Name Priority Associated Diagnoses Date/Ti me ARTHROPLASTY, HIP, TOTAL Arthritis of right hip documented as of this encounter Visit Diagnoses Not on filedocumented in this encounter Additional Health Concerns Assessment Noted Time A fall risk assessment has been complete d for the patient 09/22/2021 3:05 PM EDT documented as of this encounter Care Teams Office Machines Wirer Relationship Specialty Start Date End Date Michael Baez MD [address] [place] [address] PCP - General 04/08/21 documented as of this encounter
--- OUTSIDE RECORDS SUMMARY | 2024-10-13 13:26 | XMS_ITS | Encounter Summary ---
Author Organization Healthcare Address [address] [place] [address] Care Team Providers Care Quality Assurance Assistant Name Role Phone Michael Baez MD Primary Care Provider + [phone] Acacia Scott LANDSCAPE PHOTOGRAPHER Unavailable +[phone] Encounter Details Date Type Department Care Team (Latest Contact Info) Description 10/16/2022 4:05 PM EST Ancillary Procedure [facility] [address] [place] [phone] COPD (chronic obstructive pulmonary disease) ([facility]) Social History Tobacco Use Types Packs/Day Years [...] drink first t pippa in the morning (EYE-PIG FURNACE OPERATOR) to 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 0 08/17/2022 CAGE Questionnaire Score 0 022 Comments Unknown Sex and Gender Information Value Date Recorded Sex Assigned at Not on file Legal Sex Female 7:36 PM EDT Gender Identity Not on file Sexual Orientation Not on file COVID-19 Exposure Response Date Recorded In the last 10 days, have eddi stover been in contact with someone who was confirmed or suspected to have Coronavirus/COVID-19? No / Unsure 09/21/2022 3:48 PM EDT documented as of this encounter Plan of Treatment Upcoming Encounters Date Type Department Care Team (Late st Contact Info) Description 03/30/2025 2:00 PM EDT Office Visit [facility] [place] [address] [facility], [address] [place] [address] Acacia Scott, LANDSCAPE PHOTOGRAPHER [address] [place] [address] Scheduled Procedures Name Priority Associated Diagnoses Date/Ti me ARTHROPLASTY, HIP, TOTAL Arthritis of right hip documented as of this encounter Procedures Procedure Name Priority Date/Time Associated Diagnosis Comments ADULT ECHO OUTSIDE READ Routine 10/16/2022 4:04 PM EST COPD (chronic obstructive pulmonary disease) (CMS/HCC) documented in this encounter Results * ADULT ECHO OUTSIDE READ (10/16/2022 4:04 PM EST) BSA 1.90 m2 [facility] Height 162.6 [facility] Weight 84.8 [facility] Baseline Systolic BP 153 [facility] Baseline Diastolic BP 100 [facility] Heart Rate 73 [facility] TR Vmax 249.0 cm/s [facility] TR Max PG 25 mmHG [facility] Anatomical Region Laterality Modality Echocardiography Narrative 10/16/2022 5:45 PM EST ?Left??Ventricle: The left ventricle is normal size. Based upon the calculated wall thickness and left ventricular mass, there is concentric hypertrophy. The LVEF is visually estimated at 50 - 55%. The septal and anteroseptal enamorado are akinetic. The left ventricular filling pressure is normal. ?Right??Ventricle: The right ventricle is normal in size. The right ventricular systolic function is normal. ?Pericardium: No pericardial effusion. ?? Left Ventricle The left ventricle is normal size. Based upon the calculated wall thickness and left ventricular mass, there is concentric hypertrophy.The LVEF is visually estimated at 50 - 55%. The septal and anteroseptal enamorado are akinetic. The left ventricular filling pressure is normal. Right Ventricle The right ventricle is normal in size. The right ventricular systolic function is normal. Right ventricular systolic pressure is normal (<35mmHg). Left Atrium The left atrial size is normal. Right Atrium The right atrial size is normal. Mitral Valve The mitral valve leaflets are normal in appearance with no evidence of mitral valve prolapse. There is mild mitral regurgitation. There is no mitral stenosis. Tricuspid Valve The tricuspid valve is grossly normal in appearance. There is trace tricuspid regurgitation. There is no tricuspid stenosis. Aortic Valve The aortic valve appears to be trileaflet. There is no valvular regurgitation. There is no hemodynamically significant valvular aortic stenosis. Pulmonic Valve The pulmonic valve is grossly normal. There is trace pulmonic regurgitation. There is no pulmonic stenosis. Pericardium No pericardial effusion. Great Vessels The aortic root is normal in size. Study Details A complete transthoracic echocardiogram using two-dimensional (2D), m-mode, color and spectral flow Doppler imaging was performed. This complete 2D, M-mode, and Doppler transthoracic echocardiogram was performed on site at [facility] ([place], [place]) and interpreted remotely by faculty at the [facility] ([place], [place]). BP: 153/100 mmHg. Heart Rate: 73 bpm. Height: 162.6 cm. Weight: 84.8 kg. BSA: 1.90 m2. us Phi Green MD CV ECHO PROCEDURES Final Resul t documented in this encounter Visit Diagnoses Diagnosis COPD (chronic obstructive pulmonary disease) ([facility]) Chronic airway obstruction, not elsewhere classified documented in this encounter Additional Health Concerns Assessment Noted Time A fall risk assessment has been complete d for the patient 03/24/2022 2:26 PM EDT documented as of this encounter Care Teams Quality Assurance Assistant Relationship Specialty Start Date End Date Michael Baez MD [address] [place] [address] PCP - General 04/08/21 Acacia Scott APRN [address] [place] [phone] Nurse Practitioner Cardiology 03/27/22 documented as of this encounter
--- OUTSIDE RECORDS SUMMARY | 2024-10-13 13:26 | XMS_ITS | Encounter Summary ---
Author Organization [facility] Address [address] [phone] Care Team Providers Care Billiard Player Name Role Phone Michael Baez MD Primary Care Provider + [phone] Encounter Details Date Type Department Care Team (Late Contact Info) Description 11/28/2021 Refill [facility] [place] [address] , [address] [place] [address] Acacia Scott STEWARD/STEWARDESS RAILROAD DINING CAR [address] [place] [address] Social History Tobacco Use Types [...] Description 03/30/2025 2:00 PM EDT Office Visit [facility] [place] [address], [address] [place] [address] Acacia Scott STEWARD/STEWARDESS RAILROAD DINING CAR [address] [place] [address] Scheduled Procedures Name Priority Associated Diagnoses Date/Ti me ARTHROPLASTY, HIP, TOTAL Arthritis of right hip documented as of this encounter Visit Diagnoses Not on filedocumented in this encounter Additional Health Concerns Assessment Noted Time A fall risk assessment has been complete d for the patient 09/22/2021 3:05 PM EDT documented as of this encounter Care Teams Billiard Player Relationship Specialty Start Date End Date Michael Baez MD [address] [place] [address] PCP - General 04/08/21 documented as of this encounter
--- OUTSIDE RECORDS SUMMARY | 2024-10-13 13:26 | XMS_ITS | Encounter Summary ---
Author Organization Healthcare Address [address] [place] [address] Care Team Providers Care Creative Writer Name Role Phone Michael Baez MD Primary Care Provider + [phone] Acacia Scott RAILROAD DISPATCHER Unavailable Encounter Details Date Type Department Care Team (Latest Contact Info) Description 09/22/2022 Travel Social History Tobacco Use Types Packs/Day [...] drink first t pippa in the morning (EYE-BRANCH ADMINISTRATOR) to steady your nerves or to get [...] 03/30/2025 2:00 PM EDT Office Visit [facility] [place] [address] [facility], [address] [place] [address] Acacia Scott APRN [address] [place] [address] Scheduled Procedures Name Priority Associated Diagnoses Date/Ti me ARTHROPLASTY, HIP, TOTAL Arthritis of right hip documented as of this encounter Visit Diagnoses Not on filedocumented in this encounter Additional Health Concerns Assessment Noted Time A fall risk assessment has been complete d for the patient 03/24/2022 2:26 PM EDT documented as of this encounter Care Teams Creative Writer Relationship Specialty Start Date End Date Michael Baez MD [address] [place] [address] PCP - General 04/08/21 Acacia Scott APRN [address] [place] [address] Nurse Practitioner Cardiology 03/27/22 documented as of this encounter
--- OUTSIDE RECORDS SUMMARY | 2024-10-13 13:26 | XMS_ITS | Encounter Summary ---
Author Organization Healthcare Address [address] [place] [address] Care Team Providers Care Senior Stereo Compiler Team Lead Name Role Phone Michael Baez MD Primary Care Provider + [phone] Acacia Scott JOINT MACHINE OPERATOR Unavailable [phone] Encounter Details Date Type Department Care Team (Latest Contact Info) Description 08/07/2022 Travel Social History Tobacco Use Types Packs/Day [...] AM EDT documented as of this encounter Plan of Treatment Upcoming Encounters Date Type Department Care Team (Late st Contact Info) Description 03/30/2025 2:00 PM EDT Office Visit [facility] [place] [address] [facility], [address] [place] [address] Acacia Scott, JOINT MACHINE OPERATOR [address] [place] [address] Scheduled Procedures Name Priority Associated Diagnoses Date/Ti me ARTHROPLASTY, HIP, TOTAL Arthritis of right hip documented as of this encounter Visit Diagnoses Not on filedocumented in this encounter Additional Health Concerns Assessment Noted Time A fall risk assessment has been complete d for the patient 03/24/2022 2:26 PM EDT documented as of this encounter Care Teams Senior Stereo Compiler Team Lead Relationship Specialty Start Date End Date Michael Baez MD [address] [place] [address] PCP - General 04/08/21 Acacia Scott APRN [address] [place] [id number] Nurse Practitioner Cardiology 03/27/22 documented as of this encounter
--- OUTSIDE RECORDS SUMMARY | 2024-10-13 13:26 | XMS_ITS | Encounter Summary ---
Author Organization Healthcare Address [address] [place] [id number] Care Team Providers Care Presser Cotton Ginning Name Role Phone Michael Baez MD Primary Care Provider [phone] Encounter Details Date Type Department Care Team (Late st Contact Info) Description 03/24/2022 3:00 PM EDT Office Visit [facility] [place] [address] [facility], [address] [place] [address] Acacia Scott, COORDINATE MEASURING MACHINE OPERATOR [address] [place] [address] Mixed hyperlipidemia (Primary Dx); ASCVD (arteriosclerotic cardiovascular disease); Primary hypertension; Paroxysmal atrial fibrillation (CMS/HCC) Social History Tobacco Use Types Packs/Day Years [...] suspected to have Coronavirus/COVID-19? No / Unsure 03/24/2022 2:14 PM EDT documented as of this encounter Last Filed Vital Signs Vital Sign Reading Time Taken Comments Blood Pressure 130/92 03/24/2022 2:20 PM EDT Pulse 71 03/24/2022 2:20 PM EDT Temperature - - Respiratory Rate - - Oxygen Saturation 94% 03/24/2022 2:20 PM EDT Inhaled Oxygen Concentration - - Weight - - Height 162.6 cm (5' 4 ) 03/24/2022 2:20 PM EDT Body Mass Index - - documented in this encounter Miscellaneous Notes * Patient Instructions - Acacia Scott APRN - 03/24/2022 3:16 PM EDT Inna Barnes RN Nurse Coordinator [phone] * Progress Notes - Acacia Scott APRN - 03/24/2022 3:00 PM EDT Images from the original note were not included. Supriya Andres is a 71 y.o. female with CAD s/p CABG, stent to LAD with AMY in May 2019 and as recent as 04/30/2020 she was found to have ISRS of the distal portion of the mid LAD with a mildly reduced EF of 45-50% (both done by Dr. Abdalla at [facility]). She also has a h/o AF, CORNELIA, HTN,and hyperlipidemia. She has been followed by Dr. Mar for the AF and underwent PVI on 2018. ?? Today she follows up for routine visit. No hospitalizations or ED visits. She still denies any chest pain, shortness of breath, orthopnea, palpitations, dizziness, syncope, fatigue or edema. Still walks for exercise. No recent labs. Taking all meds without SE. ??Quit smoking in June 2021 Cardiac Catherization 04/30/2020 -Left Main artery normal [...] provides no antegrade flow to the LAD. ?Review of symptoms Constitutional: Negative for decreased appetite and weight gain. Cardiovascular: Negative for chest pain, dyspnea on exertion, leg swelling, near-syncope, orthopnea, palpitations, paroxysmal nocturnal dyspnea and syncope. Respiratory: Negative for cough, shortness of breath and sleep disturbances due to breathing. Gastrointestinal: Negative for bloating. 14 Point ROS reviewed and is otherwise negative except as per HPI. Past Medical History Past Medical History: Diagnosis Date ??? Obstructive sleep apnea (adult) (pediatric) CORNELIA on CPAP ??? Old myocardial infarction History of myocardial infarction ??? Personal history of other diseases of the circulatory system History of atrial fibrillation ??? Personal history of other diseases of the circulatory system History of hypertension ??? Personal history of other diseases of the nervous system and sense organs History of restless legs syndrome ??? Personal history of other endocrine, nutritional and metabolic disease History of hypercholesterolemia Surgical History Past Surgical History: Procedure Laterality Date ??? BILIARY DRAINAGE N/A Atrial Cardioversion from [facility] ??? CATH STENT PLACEMENT/ CATH PLACEMENT OF STENT N/A Cath Stent Placement from [facility] ??? COLON SURGERY N/A Colon Surgery from [facility] ??? CORONARY ARTERY BYPASS GRAFT N/A CABG from [facility] ??? HYSTERECTOMY N/A Hysterectomy from Stand [facility] ??? TOTAL KNEE ARTHROPLASTY N/A Knee Replacement from Stand Offer Family History family history includes Coronary artery disease in her father and mother. Social History reports that she has quit smoking. She has never used smokeless tobacco. No history on file for alcohol use and drug use. Medications Current Outpatient Medications Medication Sig Dispense Refill ??? albuterol 108 (90 Base) MCG/ACT inhaler every 4 (four) hours. ??? aspirin 81 MG chewable tablet Chew 81 mg 1 (one) time each day. ??? bisoprolol (Zebeta) 5 MG tablet Take 1 tablet (5 mg total) by mouth 1 (one) time each day. 90 tablet 3 ??? buPROPion XL (Wellbutrin XL) 150 MG 24 hr tablet 300 mg. ??? cholecalciferol (Vitamin D-3) 50 MCG (2000 UT) capsule Take 2,000 Units by mouth 1 (one) time each day. ??? Combivent Respimat 20-100 MCG/ACT inhaler ??? Eliquis 5 MG tablet Take 1 tablet (5 mg total) by mouth 2 (two) times a day. 180 tablet 1 ??? ergocalciferol (Vitamin D-2) 1.25 MG (59696 UT) capsule Take 50,000 Units by mouth 1 (one) timeper week. ??? escitalopram (Lexapro) 20 MG tablet Take 20 mg by mouth 1 (one) time each day. ??? Evolocumab (Repatha SureClick) 140 MG/ML solution auto-injector Inject 140 mg as directed every14 (fourteen) days. Inject 140mg (1 pen) sub-q every 2 weeks 6 mL 1 ??? famotidine (Pepcid) 20 MG tablet 1 (one) time each day if needed. ??? losartan (Cozaar) 25 MG tablet Take 1 tablet (25 mg total) by mouth 1 (one) time each day. 90 tablet 3 ??? rOPINIRole (Requip) 1 MG tablet Take 1 mg by mouth 3 (three) times a day. ??? Temazepam (RESTORIL PO) temazepam 15 mg qhs ??? Tiotropium [place] Monohydrate (Spiriva Respimat) 2.5 MCG/ACT inhaler Inhale 2 puffs 1 (one) time each day. ??? amantadine (Symmetrel) 100 MG tablet (Patient not taking: Reported on 08/18/2021) ??? Estritgwpgp-Zyqgpofdn-Ujigjv (Trelegy Ellipta) 100-62.5-25 MCG/INH aerosol powder 100 mcg 1 (one) time each day. (Patient not taking: Reported on 03/24/2022) No current facility-administered medications for this visit. Physical Exam Constitutional: Appearance: Normal appearance. mildly obese Cardiovascular: Rate and Rhythm: Normal rate and regular rhythm. Heart sounds: Normal heart sounds. Pulmonary: Effort: Pulmonary effort is normal. Breath sounds: Normal breath sounds. Skin: General: Skin is warm and dry. Neurological: General: No focal deficit present. Mental Status: She is alert and oriented to person, place, and time. Psychiatric: Mood and Affect: Mood normal. Behavior: Behavior normal. Visit Vitals BP 148/89 Pulse 71 Ht 1.626 m (5' 4 ) SpO2 94% BMI 31.67 kg/m?? Cardiac Testing Imaging No echocardiogram results found for the past 12 months Labs Lab Results Component Value Date HGB 11.6 10/30/2019 HCT 35.8 10/30/2019 PLT 339 10/30/2019 NA 142 10/30/2019 K 3.8 10/30/2019 CREATININE 0.85 10/30/2019 BUN 12 10/30/2019 CO2 27 10/30/2019 INR 1.2 (H) 10/30/2019 Assessment and Plan 1. CAD -Recent ISRS of LAD -AMY placed to mid LAD -asymptomatic and doing well -Continue??Aspirin??BB and repatha. -needs new lipid panel. Previously took statin with Repatha ?? 2. PAF -Continue f/u with EP -Rate controlled with BB -Anticoagulated with Eliquis for CHADS-VASC score of 3 ?? 3. Hyperlipidemia -Pt will get Lipid panel. She is currently on Repatha only-previous notes had her on statin with Repatha so will see where she is at.? 4. HTN -BP slightly elevated. Keep log at home, call if consistently elevated. -Continue Bisoprolol and Losartan ?? F/u in 6 months. Get lipid panel soon A total time of 30 minutes was [...] Description 03/30/2025 2:00 PM EDT Office Visit [facility] [place] [address] [facility], [address] [place] [address] Acacia Scott APRN [address] [place] [address] Scheduled Procedures Name Priority Associated Diagnoses Date/Ti me ARTHROPLASTY, HIP, TOTAL Arthritis of right hip documented as of this encounter Visit Diagnoses Diagnosis Mixed hyperlipidemia- Primary ASCVD (arteriosclerotic cardiovascular disease) Unspecified cardiovascular disease Primary hypertension Unspecified essential hypertension Paroxysmal atrial fibrillation (CMS/HCC) Atrial fibrillation documented in this encounter Additional Health Concerns Assessment Noted Time A fall risk assessment has been complete d for the patient 03/24/2022 2:26 PM EDT documented as of this encounter Care Teams Presser Cotton Ginning Relationship Specialty Start Date End Date Michael Baez MD [address] [place] [address] PCP - General 04/08/21 documented as of this encounter
--- OUTSIDE RECORDS SUMMARY | 2024-10-13 13:26 | XMS_ITS | Encounter Summary ---
Author Organization Healthcare Address [address] [place] [address] Care Team Providers Care Video Game Producer Name Role Phone Michael Baez MD Primary Care Provider + [phone] Acacia Scott ARCHIVIST ECONOMIC HISTORY Unavailable [phone] Reason for Visit * Reason Onset Date Comments HCN - Patient Message 09/25/[address] Encounter Details Date Type Department Care Team (Late st Contact Info) Description 09/25/2022 Telephone [place] [facility] [address] [place] [address] Amelia Bee, ARCHIVIST ECONOMIC HISTORY, DNP [address] [place] [address] HCN - Patient Message (Appt request ) Social History Tobacco Use Types Packs/Day Years [...] first t pippa in the morning (EYE-GAS PLANT TECHNICIAN) to steady your nerves or to get [...] PM EDT documented as of this encounter Miscellaneous Notes * Telephone Encounter - Priti Ceja - 09/27/2022 8:45 AM EDT Tried to ca pt, not accepting calls mailed appt reminder * Telephone Encounter - Rosina Moore - 09/25/2022 3:15 PM EDT Patient Phone Message Reason for Call: Request a follow up Best contact number and optimal time of day to reach caller: [phone] Note: Please do not reply to this [...] Description 03/30/2025 2:00 PM EDT Office Visit [facility] [place] [address] [facility], [address] [place] [address] Acacia Scott, ARCHIVIST ECONOMIC HISTORY [address] [place] [address] Scheduled Procedures Name Priority Associated Diagnoses Date/Ti me ARTHROPLASTY, HIP, TOTAL Arthritis of right hip documented as of this encounter Visit Diagnoses Not on filedocumented in this encounter Additional Health Concerns Assessment Noted Time A fall risk assessment has been complete d for the patient 03/24/2022 2:26 PM EDT documented as of this encounter Care Teams Video Game Producer Relationship Specialty Start Date End Date Michael Baez MD [address] [place] [address] PCP - General 04/08/21 Acacia Scott APRN [address] [place] [address] Nurse Practitioner Cardiology 03/27/22 documented as of this encounter
--- OUTSIDE RECORDS SUMMARY | 2024-10-13 13:26 | XMS_ITS | Encounter Summary ---
Author Organization [facility] Address [address] [place] [id number] Care Team Providers Care Animal Rides Manager Name Role Phone Michael Baez MD Primary Care Provider + [phone] Encounter Details Date Type Department Care Team (Late Contact Info) Description 12/22/2021 Refill [facility] [place] [address] , [address] [place] [address] Acacia Scott TRANSPORTATION LOGISTICS INTERNS[employer]IP [address] [place] [address] Social History Tobacco Use Types [...] 03/30/2025 2:00 PM EDT Office Visit [facility] [place] [address], [address] [place] [address] Acacia Scott TRANSPORTATION LOGISTICS [employer] [address] [place] [address] Scheduled Procedures Name Priority Associated Diagnoses Date/Ti me ARTHROPLASTY, HIP, TOTAL Arthritis of right hip documented as of this encounter Visit Diagnoses Not on filedocumented in this encounter Additional Health Concerns Assessment Noted Time A fall risk assessment has been complete d for the patient 09/22/2021 3:05 PM EDT documented as of this encounter Care Teams Animal Rides Manager Relationship Specialty Start Date End Date Michael Baez MD [address] [place] [address] PCP - General 04/08/21 documented as of this encounter
--- OUTSIDE RECORDS SUMMARY | 2024-10-13 13:26 | XMS_ITS | Encounter Summary ---
Author Organization Healthcare Address [address] [place] [address] Care Team Providers Care Stove Installer Name Role Phone Michael Baez MD Primary Care Provider + [phone] Encounter Details Date Type Department Care Team (Latest Contact Info) Description 03/24/2022 Travel Social History Tobacco Use Types Packs/Day [...] Description 03/30/2025 2:00 PM EDT Office Visit [facility] [place] [address] [facility], [address] [place] [address] Acacia Scott, DEAN OF INSTRUCTION [address] [place] [address] Scheduled Procedures Name Priority Associated Diagnoses Date/Ti me ARTHROPLASTY, HIP, TOTAL Arthritis of right hip documented as of this encounter Visit Diagnoses Not on filedocumented in this encounter Additional Health Concerns Assessment Noted Time A fall risk assessment has been complete d for the patient 03/24/2022 2:26 PM EDT documented as of this encounter Care Teams Stove Installer Relationship Specialty Start Date End Date Michael Baez MD [address] [place] [address] PCP - General 04/08/21 documented as of this encounter
--- OUTSIDE RECORDS SUMMARY | 2024-10-13 13:26 | XMS_ITS | Encounter Summary ---
Author Organization [facility] Address [address] [place] [id number] Care Team Providers Care Mannequin Coloring Artist Name Role Phone Michael Baez MD Primary Care Provider + [phone] Encounter Details Date Type Department Care Team (Late Contact Info) Description 11/22/2021 Refill [facility] [place] [address] , [address] [place] [address] Acacia Scott SPRAYING MACHINE OPERATOR [address] [place] [address] Social History Tobacco Use Types [...] Description 03/30/2025 2:00 PM EDT Office Visit [facility] [place] [address], [address] [place] [address] Acacia Scott SPRAYING MACHINE OPERATOR [address] [place] [address] Scheduled Procedures Name Priority Associated Diagnoses Date/Ti me ARTHROPLASTY, HIP, TOTAL Arthritis of right hip documented as of this encounter Visit Diagnoses Not on filedocumented in this encounter Additional Health Concerns Assessment Noted Time A fall risk assessment has been complete d for the patient 09/22/2021 3:05 PM EDT documented as of this encounter Care Teams Mannequin Coloring Artist Relationship Specialty Start Date End Date Michael Baez MD [address] [place] [address] PCP - General 04/08/21 documented as of this encounter
--- OUTSIDE RECORDS SUMMARY | 2024-10-13 13:26 | XMS_ITS | Encounter Summary ---
Author Organization [facility] Address [address] [place] [address] Care Team Providers Care Clinical Sciences Professor Name Role Phone Michael Baez MD Primary Care Provider + [phone] Acacia Worthy APRN Unavailable [phone] Reason for Referral * Imaging (Routine) - Closed Specialty Diagnoses / Procedures Referred By Terrence prasad Referred To Contact Radiology Diagnoses Abnormal echocardiogram Procedures MR Cardiac Morphology and Function w and wo IV Contrast Acacia Worthy APRN [address] [place] [address] Phone: tel: fax: Referral ID Status Reason Start Date Expiration Date Visits Re quested Visits Authorized [id number] Closed 09/22/2022 03/23/2024 1 1 Encounter Details Date Type Department Care Team (Late st Contact Info) Description 09/22/2022 2:30 PM EDT Office Visit [facility] [place] [address], [address] [place] [address] Acacia Worthy APRN [address] [place] [address] Abnormal echocardiogram (Primary Dx); Mixed hyperlipidemia; Paroxysmal atrial fibrillation (CMS/HCC); ASCVD (arteriosclerotic cardiovascular disease); Primary hypertension Social History Tobacco Use Types Packs/Day Years Used Date Smoking Tobacco: Some Days Cigarettes Smokeless Tobacco: Never Tobacco Cessation:Ready to Q uit: Not Asked; Counseling Given: Not Answered CAGE ASSESSMENT Answer Date Recorded Cage unable [...] drink first t pippa in the morning (EYE-BEAM DOFFER) to steady your nerves or to get [...] Sign Reading Time Taken Comments Blood Pressure 112/72 09/22/2022 2:05 PM EDT Pulse 67 09/22/2022 2:05 PM EDT Temperature - - Respiratory Rate - - Oxygen Saturation 93% 09/22/2022 2:05 PM EDT Inhaled Oxygen Concentration - - Weight 84.3 kg (185 lb 13.6 oz) 09/22/2022 2:05 PM EDT Height 162.6 cm (5' 4 ) 09/22/2022 2:05 PM EDT Body Mass Index 31.9 09/22/2022 2:05 PM EDT documented in this encounter Patient Instructions * Attachments The following attachments cannot be sent through Care Everywhere. * Heart-Healthy Food, Eating: Using the DASH Plan (Rwandan) documented in this encounter Miscellaneous Notes * Patient Instructions - Acacia Worthy APRN - 09/22/2022 2:30 PM EDT Please call Will RN with any questions #[phone] * Progress Notes - Acacia Worthy APRN - 09/22/2022 2:30 PM EDT Images from the original note were not included. Supriya Andres is a 71 y.o. female with CAD s/p CABG, stent to LAD with AMY in May 2019 and as recent as 04/30/2020 she was found to have ISRS of the distal portion of the mid LAD with a mildly reduced EF of 45-50% (both done by Dr. Abdalla at [facility]). She also has a h/o AF, CORNELIA, HTN, and hyperlipidemia. She has been followed by Dr. Mar for the AF and underwent PVI on October 29, 2019. Today she follows up for routine visit. Was recently in the hospital for COPD exacerbation. Finallyfeeling back to herself. During the hospital stay had an incidental finding of apical inferior walloutpouching. Had abx, steroids, breathing treatments and lasix for ?vascular engorgement- feels better now. Couldn't walk through her house without her oxygen dropping but better now. Still smoking 1 pack per week She still denies any chest pain, orthopnea, palpitations, dizziness, syncope, fatigue or edema. Taking all meds without SE. Cardiac Catherization 04/30/2020 -Left Main artery normal [...] flow to the LAD. Review of symptoms Constitutional: Negative for decreased appetite [...] Date BILIARY DRAINAGE N/A Atrial Cardioversion from [employer] CATH STENT PLACEMENT/ CATH PLACEMENT OF STENT N/A Cath Stent Placement from [employer] COLON SURGERY N/A Colon Surgery from [employer] CORONARY ARTERY BYPASS GRAFT N/A CABG from [employer] HYSTERECTOMY N/A Hysterectomy from [employer] TOTAL KNEE ARTHROPLASTY N/A Knee Replacement from [employer] Family History family history includes Coronary artery disease in her father and mother. Social History reports that she has been smoking cigarettes. She has never used smokeless tobacco. No [...] into upper leg. Call 911 after use. escitalopram (Lexapro) 20 MG tablet Take 1 tablet (20 mg total) by mouth 1 (one) time each day. 30 tablet 2 Evolocumab (Repatha SureClick) 140 MG/ML solution auto-injector Inject 140 mg as directed every 14 (fourteen) days. Inject 140mg (1 pen) sub-q every 2 weeks 6 mL 1 famotidine (Pepcid) 20 MG tablet Take 20 mg by mouth 2 (two) times a day if needed. furosemide (Lasix) 20 MG tablet Take 1 tablet (20 mg total) by mouth 1 (one) time each day. 30 tablet 11 ipratropium-albuterol (Duo-Neb) 0.5-2.5 mg/3 mL nebulizer solution Take 3 mL by nebulization every 6 (six) hours if needed. losartan (Cozaar) 25 MG tablet Take 1 tablet (25 mg total) by mouth 1 (one) time each day. 90 tablet 3 omalizumab (Xolair) 150 MG/ML injection Xolair 150 mg/mL subcutaneous syringe Inject by subcutaneous route. rOPINIRole (Requip) 1 MG tablet Take 1 mg by mouth 3 (three) times a day. 1 tab in the morning, 1 tab in the evening, 1 tab nightly temazepam (Restoril) 15 MG capsule Take 1 capsule by mouth every night. cholecalciferol (Vitamin D-3) 50 MCG (2000 UT) capsule Take 2,000 Units by mouth 1 (one) time each day. (Patient not taking: Reported on 09/22/2022) No current facility-administered medications for this visit. Physical Exam Constitutional: Appearance: Normal appearance. Obese Cardiovascular: Rate and Rhythm: Normal rate and regular rhythm. Heart sounds: Normal heart sounds. Pulmonary: Effort: Pulmonary effort is normal. Breath sounds: Normal breath sounds. Skin: General: Skin is warm and dry. Neurological: General: No focal deficit present. Mental Status: She is alert and oriented to person, place, and time. Psychiatric: Mood and Affect: Mood normal. Behavior: Behavior normal. Visit Vitals BP 112/72 Pulse 67 Ht 1.626 m (5' 4 ) Wt 84.3 kg (185 lb 13.6 oz) SpO2 93% BMI 31.90 kg/m?? Cardiac Testing Imaging Echo, Adult Transthoracic [...] 1.0 08/07/2022 Assessment and Plan 1. CAD -Recent ISRS of LAD -AMY placed to mid LAD -asymptomatic and doing well -Continue Aspirin BB and repatha. -needs new lipid panel. Previously took statin with Repatha 2. PAF -Continue f/u with EP -Rate controlled with BB -Anticoagulated with Eliquis for CHADS-VASC score of 3 3. Hyperlipidemia -Pt will get Lipid panel. She is currently on Repatha only-previous notes had her on statin with Repatha so will see where she is at. 4. HTN -BP WNL -Continue current medications 5. Possible apical outpouching on echo -Will get CMR to further evaluate 6. Tobacco abuse -has nicotine patches -failed Wellbutrin prevoiusly F/u after CMR via for results. Get labs. A total time of 40 minutes was spent addressing the current illness, reviewing records (prior imaging, lab work, etc), and formulating a plan. The patient is agreeable to the plan and all pertinent questions were answered. Acacia Worthy APRN documented in this encounter Plan of Treatment Upcoming Encounters Date Type Department Care Team (Late st Contact Info) Description 03/30/2025 2:00 PM EDT Office Visit [facility] [place] [address], [address] [place] [address] Acacia Worthy, DRYCLEANER [address] [place] [address] Scheduled Procedures Name Priority Associated Diagnoses Date/Ti me ARTHROPLASTY, HIP, TOTAL Arthritis of right hip documented as of this encounter Results * MR Cardiac Morphology [...] WO IV CONTRAST ordered by ACACIA WORTHY, [id number] CLINICAL INDICATION: Cardiomyopathy, undefined, further testing Age: [...] AND WO IV CONTRASTordered by ACACIA WORTHY, [id number] CLINICAL INDICATION: Cardiomyopathy, undefined, further testing Age: [...] signing this report, I, the attending physician, kristi I have personally reviewed the images/data for the aboveexamination(s) and agree with the final edited report. Dictated by RT Gabriel on 12/20/2022 2:12 PM Signed by Rigo Walters MD on 12/22/2022 3:20 PM Acacia Worthy APRN IM MRI PROCEDURES Final Result documented in this encounter Visit Diagnoses Diagnosis Abnormal echocardiogram- Primary Nonspecific (abnormal) findings on radiological and other examination of other intrathoracic organs Mixed hyperlipidemia Paroxysmal atrial fibrillation (CMS/HCC) Atrial fibrillation ASCVD (arteriosclerotic cardiovascular disease) Unspecified cardiovascular disease Primary hypertension Unspecified essential hypertension Abnormal echocardiogram Nonspecific (abnormal) findings on radiological and other examination of other intrathoracic organs documented in this encounter Additional Health Concerns Assessment Noted Time A fall risk assessment has been complete d for the patient 03/24/2022 2:26 PM EDT documented as of this encounter Care Teams Clinical Sciences Professor Relationship Specialty Start Date End Date Michael Baez MD [address] [place] [address] PCP - General 04/08/21 Acacia Worthy APRN [address] [place] [address] Nurse Practitioner Cardiology 03/27/22 documented as of this encounter
--- OUTSIDE RECORDS SUMMARY | 2024-10-13 13:26 | XMS_ITS | Encounter Summary ---
Author Organization [facility] Address [address] [place] [address] Care Team Providers Care Marine Animal Trainer Name Role Phone Michael Baez MD Primary Care Provider + [phone] Acacia Scott LAP GRINDER Unavailable [phone] Encounter Details Date Type Department Care Team (Latest Contact Info) Description 11/03/2022 9:24 AM EST - 11/03/2022 11:59 PM [facility] Hospital Encounter [facility] [address], [address] [place] [address] Lumbar spondylosis Discharge Disposition: Home [...] drink first t pippa in the morning (EYE-ADULT NEUROLOGIST) to steady your nerves or to get [...] Call 911 after use. 3 nystatin (Mycostatin) [id number] UNIT/ML suspension 10/25/2022 3 documented as of this encounter Plan of Treatment Upcoming Encounters Date Type Department Care Team (Late st Contact Info) Description 03/30/2025 2:00 PM EDT Office Visit [facility] [place] [address], [address] [place] [address] Acacia Scott APRN [address] [place] [address] Scheduled Procedures Name Priority Associated Diagnoses Date/Ti me ARTHROPLASTY, HIP, TOTAL Arthritis of right hip documented as of this encounter Procedures Procedure Name Priority Date/Time Associated Diagnosis Comments XR LUMBAR SPINE 2 OR 3 VIEWS Routine 11/03/2022 9:52 AM EST Lumbar spondylosis documented in this encounter Results * XR Lumbar Spine 2 or 3 Views (11/03/2022 9:52 AM EST) Anatomical Region Laterality Modality Spine, L-spine Digital Radiogra phy Impressions 11/03/2022 10:16 AM [...] OR 3 VIEWS ordered by AMELIA OCAMPO [id number] CLINICAL INDICATION: Back pain TECHNIQUE: 2 views [...] 2OR 3 VIEWS ordered by AMELIA OCAMPO, [id number] CLINICAL INDICATION: Back pain TECHNIQUE: 2 views of the entire spine in flexion and extension views of the lumbarspine COMPARISON: None. FINDINGS: There are multilevel degenerative changes identified diffusely throughoutthe thoracic and lumbar spine. No inducible instability in flexion orextension views with disc space narrowing most pronounced at the L3/N2vifju. There is mild anterolisthesis identified of L4 [...] documented as of this encounter Care Teams Marine Animal Trainer Relationship Specialty Start Date End Date Michael Baez MD [address] [place] [address] PCP - General 04/08/21 Acacia Scott APRN [address] [place] [address] Nurse Practitioner Cardiology 03/27/22 documented as of this encounter
--- OUTSIDE RECORDS SUMMARY | 2024-10-13 13:26 | XMS_ITS | Encounter Summary ---
Author Organization [facility] Address [address] [place] [id number] Care Team Providers Care Supervisor Pole Yard Name Role Phone Michael Baez MD Primary Care Provider + [phone] Acacia Scott BACK END WEB DEVELOPER Unavailable [phone] Encounter Details Date Type Department Care Team (Late st Contact Info) Description 06/23/2022 Refill [facility] [place] [address] [place] [address] Acacia Scott, BACK END WEB DEVELOPER [address] [place] [address] Social History Tobacco Use Types [...] Description 03/30/2025 2:00 PM EDT Office Visit [facility] [place] [address], [address] [place] [address] Acacia Scott, BACK END WEB DEVELOPER [address] [place] [address] Scheduled Procedures Name Priority Associated Diagnoses Date/Ti me ARTHROPLASTY, HIP, TOTAL Arthritis of right hip documented as of this encounter Visit Diagnoses Not on filedocumented in this encounter Additional Health Concerns Assessment Noted Time A fall risk assessment has been complete d for the patient 03/24/2022 2:26 PM EDT documented as of this encounter Care Teams Supervisor Pole Yard Relationship Specialty Start Date End Date Michael Baez MD [address] [place] [address] PCP - General 04/08/21 Acacia Scott APRN [address] [place] [id number] Nurse Practitioner Cardiology 03/27/22 documented as of this encounter
--- OUTSIDE RECORDS SUMMARY | 2024-10-13 13:26 | XMS_ITS | Encounter Summary ---
Author Organization [facility] Address [address] [place] [address] Care Team Providers Care L Tacker Name Role Phone Michael Baez MD Primary Care Provider + [phone] Acacia Scott HANDLING TECH Unavailable [phone] Encounter Details Date Type Department Care Team (Late st Contact Info) Description 06/26/2022 Refill [facility] [place] [address], [address] [place] [address] Acacia Scott, HANDLING TECH [address] [place] [address] Social History Tobacco Use Types Packs/Day Years Used Date Smoking Tobacco: Former Smokeless Tobacco: Never Comments Unknown Sex and Gender Information Value Date Recorded Sex Assigned at Not on file Legal Sex Female 7:36 PM EDT Gender Identity Not on file Sexual Orientation Not on file documented as of this encounter Miscellaneous Notes * Telephone Encounter - Krista Hayden - 06/26/2022 10:42 AM EDT Low priority request. Patient is due for refill call at the beginning of July. documented in this encounter Plan of Treatment Upcoming Encounters Date Type Department Care Team (Late st Contact Info) Description 03/30/2025 2:00 PM EDT Office Visit [facility] [place] [address], [address] [place] [address] Acacia Scott APRN [address], [...] documented as of this encounter Care Teams L Tacker Relationship Specialty Start Date End Date Michael Baez MD [address] [place] [address] PCP - General 04/08/21 Acacia Scott APRN [address] [place] [address] Nurse Practitioner Cardiology 03/27/22 documented as of this encounter
--- OUTSIDE RECORDS SUMMARY | 2024-10-13 13:26 | XMS_ITS | Encounter Summary ---
Author Organization [facility] Address [address] [place] [address] Care Team Providers Care Inspector Floor Sub Assembly Name Role Phone Michael Baez MD Primary Care Provider [phone] Acacia Scott APRN Unavailable [phone] Reason for Referral * Imaging (Routine) - Closed Specialty Diagnoses / Procedures Referred By Contac t Referred To Contact Radiology Diagnoses Lumbar spondylosis Intervertebral disc disorders with radiculopathy, lumbar region Procedures MR Lumbar Spine wo IV Contrast Amelia Ocampo APRN, DNP [address] [address] Phone: tel: fax: Referral ID Status Reason Start Date Expiration Date Visits Re quested Visits Authorized [id number] Closed 11/03/2022 05/04/2024 1 1 Reason for Visit * Reason Comments Consult * Consultation (Routine) - Closed Specialty Diagnoses / Procedures Referred By Contac t Referred To Contact Neurosurgery Diagnoses Acute left-sided low back pain without sciatica Tania Alonzo MD [address] [place] [address] Phone: tel: fax: Amelia Ocampo APRN, DNP [address] [address] Phone: tel:[phone] fax: Referral ID Status Reason Start Date Expiration Date V isits Requested Visits Authorized [id number] Closed Specialty Services Required 08/07/2022 02/06/2024 1 1 Encounter Details Date Type Department Care Team (Late st Contact Info) Description 11/03/2022 8:50 AM EST Consult [place] [facility] [address] [place] [address] Amelia Ocampo W, SUPERVIS[employer], DNP [address] [place] [address] Lumbar spondylosis (Primary Dx); Intervertebral disc disorders with radiculopathy, lumbar region Social History Tobacco Use Types [...] drink first t pippa in the morning (EYE-HI LOW TRUCK DRIVER) to steady your nerves or to get [...] Sign Reading Time Taken Comments Blood Pressure 128/80 11/03/2022 8:33 AM EST Pulse - - Temperature - - Respiratory Rate - - Oxygen Saturation - - Inhaled Oxygen Concentration - - Weight 83.9 kg (185 lb) 11/03/2022 8:33 AM EST Height 162.6 cm (5' 4 ) 11/03/2022 8:33 AM EST Body Mass Index 31.76 11/03/2022 8:33 AM EST documented in this encounter Miscellaneous Notes * Progress Notes - Amelia Ocampo, [employer], DNP - 11/03/2022 8:50 AM EST Tania Alonzo MD We had the pleasure of seeing your patient in our clinic today for Neurosurgical consultation. I personally reviewed approximately 10 pages of new patient referral paperwork that was sent to the clinic. Chief Complaint Back pain History Of Present Illness Supriya Andres is a 71 y.o. female presenting with multiple comorbidities including chronic low back pain, CAD, COPD. She had an exacerbation of back pain after severe coughing over approximately 6-8 weeks. She presented to the emergency department on 11/06/2022. At that time, trauma workup revealed a chronic T7 compression fracture, no acute fractures. She did not require any bracing for the thoracic fracture given chronicity and was encouraged to continue with symptom management. She didnot have any neurologic deficits. She was seen by [facility] Neurosurgery in the emergency department with recommendations for clinic follow-up if symptoms continued. She was admitted to [facility] from08/15/2022 and discharged August 26 2022 for a COPD exacerbation. She was treated with antibioticsand steroids with improvement and discharged home with home health. Since her initial visit to the emergency department in early July 2022 her back pain has improved. She continues to have her chronic low back pain with slight increase in severity. Typically has radiation into the left groin and posterior leg to the knee, at times medial thigh to the knee with associated intermittent weakness related to pain. This is been ongoing for approximately [address] Sharma for interventional pain, last approximately 4 months ago. Injections do help. Approximately 1 week ago she started to develop right groin pain and right low back pain. No pain is going down her leg though her right leg is somewhat weak. She denies any paresthesias or bowel or bladder incontinence. She is not havingany pain over the site of her chronic T7 fracture. Rates pain today as a 6/10. Did have approximately 1 visit of physical therapy following discharge in August 2022. Therapist wanted her to improve from her COPD exacerbation and undergo further evaluation from a neurosurgical standpoint prior to continuing any additional treatment. She is scheduled for a follow-up with Dr. Sharma but is unsure when. Again, injections do help her pain. She is not had a recent MRI. Past medical history consistent for COPD, atrial fibrillation, CAD status post CABG and stent GERD,sleep apnea, hypertension. She is on Eliquis. Status post bilateral knee replacements. Positive smoker, 5-6 cigarettes per day. She does not currently work. No indicated family history of spine issues. Past Medical History She has a past medical history of Asthma, Atrial fibrillation ([facility]), COPD (chronic obstructive pulmonary disease) ([facility]), Gastroesophageal reflux disease without esophagitis, Hypercholesteremia, Hypertension, [...] (one) time each day. 90 tablet 3 nystatin (Mycostatin) [id number] UNIT/ML suspension omalizumab (Xolair) 150 MG/ML injection Xolair 150 [...] day in the morning. 30 tablet 0 No current facility-administered medications for this visit. Allergies Diphenhydramine, Penicillins, Codeine, and Diazepam Review of Systems 14 point review of systems was performed and was negative except as noted per HPI. Last Recorded Vitals Visit Vitals BP 128/80 (BP Location: Right arm, Patient Position: Sitting, BP Cuff Size: Large adult) Ht 1.626 m (5' 4 ) Wt 83.9 kg (185 lb) BMI 31.76 kg/m?? Smoking Status Some Days BSA 1.95 m?? Physical Exam GEN: well developed, no acute distress Head: normocephalic, atraumatic Eyes:EOMs intact Ears: normal auditory acuity PULM: slight increased work of breathing with talking MSK: no joint swelling, normal range of motion SKIN: warm and dry, intact PSYCHE: normal mood and affect, appropriate historian Neuro Exam Strength 5/5 lower extremities except 4/5 right hip flexor Sensation intact throughout DTRs 2+ Achilles, absent patella Straight leg raise negative Able to rise from chair with assistance Ambulates with cane Imaging I personally reviewed CT of the lumbar spine completed 08/07/2022. Degenerative changes noticed at L2-3, L5-S1. Degenerative changes noted through the endplates. No acute fractures noted. Personally reviewed CT of the thoracic spine completed 08/07/2022. Chronic T7 compression fracture with associated kyphosis noted. Personally reviewed flexion/extension, scoliosis x-rays of completed today, 11/03/2022. Anterolisthesis of L4 on L5 without translational instability noted. No significant lordosis or kyphosis noted on scoliosis x-rays. Assessment and Plan Supriya Andres is a 71 y.o. female presenting with chronic low back pain with an exacerbation of right lower extremity pain, chronic left lower extremity radiculopathy. CT imaging reveals multilevel degenerative changes, no acute fractures. Chronic fracture noted at T7, currently asymptomatic from this level. Her increased severity of pain back in July was most likely related to a component of costochondritis as it began around significant coughing spell and was later diagnosed with aCOPD exacerbation. As she has presence of radiculopathy, multilevel degenerative changes, and some improvement but not lasting improvement with interventional pain would like to order a new MRI of the lumbar spine to assess for any compressive pathology that may be amenable to surgical intervention. We will have her follow up in clinic after completion of MRI for further evaluation. Was instructed to contact the clinic with questions or concerns. She is scheduled for an MRI in November, we will attempt to coordinate dates and follow-up if able.. Assessment/Plan Problem List Items Addressed This Visit None Visit Diagnoses Lumbar spondylosis - Primary Relevant Orders XR Lumbar Spine 2 or 3 Views (Completed) XR Scoliosis Entire Spine 2 or 3 Views (Completed) MR Lumbar Spine wo IV Contrast Intervertebral disc disorders with radiculopathy, lumbar region Relevant Orders MR Lumbar Spine wo IV Contrast Amelia Ocampo APRN [facility] Department of Neurosurgery Thank you for allowing us to be a part of your patient's care. Please do not hesitate to contact [facility]at [facility] if there are any questions or concerns. documented in this encounter Plan of Treatment Upcoming Encounters Date Type Department Care Team (Late st Contact Info) Description 03/30/2025 2:00 PM EDT Office Visit [facility] [place] [address], [address] [place] [address] Acacia Scott APRN [address] [place] [address] Scheduled Procedures Name Priority Associated Diagnoses Date/Ti me ARTHROPLASTY, HIP, TOTAL Arthritis of right hip documented as of this encounter Results * MR Lumbar Spine [...] WO IV CONTRAST ordered by AMELIA OCAMPO, [id number] CLINICAL INDICATION: Low back pain, > 6 [...] flavum hypertrophy. No significant spinal canal stenosis. [id number] bilateral neural foraminal stenosis. Prevertebral and Paraspinal Soft Tissues: There is no prevertebral or paraspinal soft tissue swelling or mass. Other Findings: None. Procedure Note Bert Stauffer MD - 12/22/2022 Exam/Procedure: MR LUMBAR SPINE WO IV CONTRAST ordered by AMELIA PHELPS, [id number] CLINICAL INDICATION: Low back pain, > 6 [...] Mildligamentum flavum hypertrophy. No significant spinal canal stenosis.[id number] bilateral neural foraminal stenosis. Prevertebral and Paraspinal Soft Tissues: There is no prevertebral orparaspinal soft tissue swelling or mass. Other Findings: None. IMPRESSION: Multilevel degenerative changes of the lumbar spine, greatest at the L3-A2zicjd with moderate to severe left neural foraminal [...] Bert Vann MD on 12/22/2022 4:29 PM Amelia Ocampo APRN, DNP IMG MRI PROCEDURES F inal Result * XR Scoliosis Entire Spine 2 or [...] 2 OR 3 VIEWS ordered by AMELIA OCAMPO, [id number] CLINICAL INDICATION: Back pain TECHNIQUE: 2 views [...] 2OR 3 VIEWS ordered by AMELIA OCAMPO, [id number] CLINICAL INDICATION: Back pain TECHNIQUE: 2 views of the entire spine in flexion and extension views of the lumbarspine COMPARISON: None. FINDINGS: There are multilevel degenerative changes identified diffusely throughoutthe thoracic and lumbar spine. No inducible instability in flexion orextension views with disc space narrowing most pronounced at the L3/K2osmzo. There is mild anterolisthesis identified of L4 [...] MD on 11/03/2022 10:16 AM Amelia Ocampo [employer], DNP IMG XR PROCEDURES Fi nal Result * XR Lumbar Spine 2 or 3 [...] 2 OR 3 VIEWS ordered by AMELIA OCAMPO, [id number] CLINICAL INDICATION: Back pain TECHNIQUE: 2 views [...] 2OR 3 VIEWS ordered by AMELIA OCAMPO, [id number] CLINICAL INDICATION: Back pain TECHNIQUE: 2 views of the entire spine in flexion and extension views of the lumbarspine COMPARISON: None. FINDINGS: There are multilevel degenerative changes identified diffusely throughoutthe thoracic and lumbar spine. No inducible instability in flexion orextension views with disc space narrowing most pronounced at the L3/L9ajqje. There is mild anterolisthesis identified of L4 [...] MD on 11/03/2022 10:16 AM Amelia Ocampo [employer], DNP IMG XR PROCEDURES Fi nal Result documented in this encounter Visit Diagnoses Diagnosis Lumbar spondylosis- Primary Lumbosacral spondylosis without myelopathy Intervertebral disc disorders with radiculopathy, lumbar region Lumbar spondylosis Lumbosacral spondylosis without myelopathy Lumbar spondylosis Lumbosacral spondylosis without myelopathy Lumbar spondylosis Lumbosacral spondylosis without myelopathy Intervertebral disc disorders with radiculopathy, lumbar region documented in this encounter Additional Health Concerns Assessment Noted Time A fall risk assessment has been complete d for the patient 11/03/2022 8:37 AM EST documented as of this encounter Care Teams Inspector Floor Sub Assembly Relationship Specialty Start Date End Date Michael Baez MD [address] [place] [address] PCP - General 04/08/21 Acacia Scott APRN [address] [place] [phone] Nurse Practitioner Cardiology 03/27/22 documented as of this encounter
--- OUTSIDE RECORDS SUMMARY | 2024-10-13 13:26 | XMS_ITS | Encounter Summary ---
Author Organization Healthcare Address [address] [place] [address] Care Team Providers Care Cloth Desizing Range Operator Chief Name Role Phone Michael Baez MD Primary Care Provider [phone] Acacia Scott OIL BURNER SERVICER AND INSTALLER Unavailable [phone] Encounter Details Date Type Department Care Team (Latest Contact Info) Description 08/17/2022 Travel Social History Tobacco Use Types Packs/Day [...] drink first t pippa in the morning (EYE-SOD CUTTER) to steady your nerves or to get [...] 03/30/2025 2:00 PM EDT Office Visit [facility] [place] [address] [facility], [address] [place] [address] Acacia Scott APRN [address] [place] [address] Scheduled Procedures Name Priority Associated Diagnoses Date/Ti me ARTHROPLASTY, HIP, TOTAL Arthritis of right hip documented as of this encounter Visit Diagnoses Not on filedocumented in this encounter Additional Health Concerns Assessment Noted Time A fall risk assessment has been complete d for the patient 03/24/2022 2:26 PM EDT documented as of this encounter Care Teams Cloth Desizing Range Operator Chief Relationship Specialty Start Date End Date Michael Baez MD [address] [place] [address] PCP - General 04/08/21 Acacia Scott APRN [address] [place] [address] Nurse Practitioner Cardiology 03/27/22 documented as of this encounter
--- OUTSIDE RECORDS SUMMARY | 2024-10-13 13:27 | XMS_ITS | Encounter Summary ---
[facility] Organization [facility] Address [address] [place] [address] Care Team Providers Care Director Of Compensation Name Role Phone Michael Baez MD Primary Care Provider [phone] Encounter Details Date Type Department Care Team (Late st Contact Info) Description 12/16/2013 Conversion Encounter [facility] HISTORICAL CONV [address] [place] [address] Interface, See Report Social History Tobacco Use Types Packs/Day Years Used Date Smoking Tobacco: Never Assessed Comments Unknown Sex and Gender Information Value Date Recorded Sex Assigned at Not on file Legal Sex Female 12:01 PM EDT Gender Identity Not on file Sexual Orientation Not on file documented as of this encounter Discharge Summaries * Interface, See Report - 12/16/2013 8:29 AM EST [place] [id number] DISCHARGE SUMMARY PATIENT NAME: SUSANNAH ANDRES [address] [facility] NO: [id number] DATE OF : 1950 DATE OF ADMISSION: 12/16/2013 DATE OF DISCHARGE: 12/18/2013 PRIMARY CARE PHYSICIAN: Dr. Fall FINAL DIAGNOSES: 1. Right total knee replacement, per Dr. Ingrid Lopez. a) Discharged with completion of Lovenox for deep venous thrombosis prophylaxis. 2. Acute blood loss, not anemic with hemoglobin 11.9 on day of discharge and preoperative hemoglobin of 15.2. 3. Tobacco abuse, strongly counseled cessation. 4. Hypomagnesemia with hypokalemia as well. a) The patient to be on more aggressive replacement at home. For the admission HPI, allergies, medications on admission, past medical history, social history, family history and review of systems, please refer to the admission HandP. HOSPITAL COURSE: The patient was admitted for management of a painful right knee. She underwent an uneventful right knee replacement per Dr. Lopez. She was continued on home medications postoperatively with clarification of several of her medications. She did require adjustment of her pain medications as Lortab was not sufficient but Percocet sufficed nicely. She has a history of coronary disease with prior stent placements and had a stress test in 06/[address] Chicas. She was felt to be an acceptable cardiac risk for surgery and troponin and EKG were checked postoperatively to ensure stability. Troponin was negative. EKG showed some abnormalities with anterolateral ischemia. This was new on her EKG from these records and, though Dr. Chicas's reports were received that her stress test normal and her risk was low, a repeat EKG was checked the following day and showed yet further changes with inferior ischemia with the anterolateral ischemia being unchanged. She was clinically asymptomatic apart from marked right knee pain which was normal in its postoperative nature. She had troponin checked that was negative at 0.04. The EKG was formerly read by cardiology (Dr. Fay) and no further work-up was pursued. She had significantly low magnesium at 1.4 with replacement IV. Her potassium was also low at 3.5 with her chronic Hydrochlorothiazide therapy. On the day of discharge, she has accomplished her interim PT and OT goals. She has achieved good pain control with oral medications alone. She has resumed her Effient on postoperative day two and has had no interruption in her aspirin therapy once she was in the hospital. On the day of discharge, she has accomplished her interim PT/OT goals. She has good pain control with oral medications alone. On examination, her mood is appropriate. Her affect is congruent. Vital signs: Blood pressure 118/66. Heart rate 101 and regular. Respirations 15-20 and unlabored. Temperature 96.1. O2 saturation 92% on room air. She is alert and oriented x3. Normocephalic, atraumatic. Pupils equal, round and reactive to light. Extraocular movements intact. Sclerae clear. Oropharynx pink and moist. No lesion. Neck is supple. Lungs are clear bilaterally with good aeration and effort. Cardiac: Regular rate and rhythm. Abdominal exam is unremarkable. Bowel sounds present x4. Soft and nontender. She has not had a bowel movement but is not concerned about this lack. Extremities show no edema, cyanosis or clubbing. The Aquacel dressing in the right knee is clean, dry and intact. Calves are soft. Neurovascularly she is intact. Skin is warm and dry. She is moving all four extremities appropriately given her postoperative state. Laboratory results on the day of discharge show WBC 8.8 thousand, hemoglobin 11.9 and platelets 271,000. She is ready for discharge to home and she is in agreement with this plan. DISCHARGE INSTRUCTIONS: She is to follow-up with Dr. Chicas as previously scheduled. She follows up with Dr. Ingrid Lopez on 01/06/2014 at 14:00. She is to keep the Aquacel dressing in place x14 days postoperatively. She is to return to medical care if new symptoms develop or current symptoms change. She is to resume her dietary restrictions. The Lovenox continues x14 days postoperatively. She is to follow-up with her primary care physician in one week with magnesium and a BMP check. DISCHARGE MEDICATIONS: 1. Amitriptyline 25 mg p.o. nightly. 2. Aspirin 325 mg daily. 3. Calcium plus D 600 mg daily. 4. Lipitor 40 mg p.o. nightly. 5. Pletal 50 mg p.o. b.i.d. 6. Cymbalta 60 mg daily. 7. Effient 10 mg daily. 8. Hydrochlorothiazide 12.5 mg daily, hold systolic blood pressure less than 110 and take with magnesium oxide for her p.o. b.i.d. x7 days. 9. Metoprolol tartrate versus succinate 50 mg daily. 10. Niaspan extended release 1000 mg q.h.s. 11. Nystatin t.i.d. as needed. 12. Requip 2 tablets at night. 13. Senna daily. 14. Singular 10 mg daily. 15. Symbicort 160/4.5 b.i.d. 16. Temazepam 15 mg p.o. as needed at night. 17. Vitamin D 50,000 units weekly with a level here of 52. 18. Lovenox 40 mg subcutaneously q.24 hours x12 days. 19. Percocet 7.5 1/2-1 p.o. q.4 hours p.r.n. pain, dispensed #37. More than 35 minutes has been spent on dictation, physical exam, discussion with patient, family, PT, case management, nursing and medical staff, review of medications, chart and labs. Aliya Bejarano M.D.* MBS/rxll Voice Rec. ID #[id number] Voice Original ID #[id number] Doc ID #[id number] Rev. #0 cc: Aliya Bejarano M.D.* Dr. Juan David Lopez M.D.* DO NOT TEXT EDIT THIS LINE :CDS:[id number]: Authenticated and Edited by ALIYA BEJARANO MD On 12/23/13 12:06:53 PM documented in this encounter H&P Notes * Interface, See Report - 12/16/2013 8:29 AM EST [address] HISTORY AND PHYSICAL PATIENT NAME: SUSANNAH ANDRES 2 [facility] NO: [id number] DATE OF : 1950 DATE OF ADMISSION: 12/16/2013 ADMITTING PHYSICIAN: Aliya Bejarano M.D. PRIMARY CARE PHYSICIAN: Dr. Garcia formerly Dr. Lynn ORTHODONTIC ASSISTANT: Robel Chicas M.D. REFERRING PHYSICIAN: Ingrid Lopez M.D. CHIEF COMPLAINT: 1. Right knee pain status post right knee replacement. 2. Coronary artery disease with a history of stents with chronic Effient and Pletal therapy. 3. Tobacco abuse, ongoing. HISTORY OF PRESENT ILLNESS: The patient is a 63-year-old woman with multiple medical problems as above. She also has reactive airway disease, osteoarthritis and obesity with BMI of 32. She is seen postop day number zero in her hospital room where she is recovering from a right knee replacement earlier today per Dr. Ingrid Lopez. She has good pain control when seen. She has not yet been up. She has no complaints of chest pain or shortness of breath. No nausea or vomiting. No palpitations. She has had a stress test done in 06/[address] Chicas reports as unremarkable. She was given an appropriate cardiac clearance for surgery. She was able to hold her Effient and was continuing her daily Pletal therapy. She has not had any recent antibiotics though her is trying to remember and believes she has had something within the last several months. She had dental work done several months ago and chose not to take her oral antibiotics for prophylaxis. She does not quite know why she did not take them. She has no history of DVT or pulmonary embolus. She has a long history of right knee pain and has failed more conservative treatment modalities over a prolonged period of time. She eventually elected to proceed with a right knee replacement as she was in inactivity and lifestyle limiting pain. Please refer to Dr. Lopez's office notes for details. Information otherwise is obtained from review of the computer records and the chart as well as discussion with the patient and her and review of office notes. ALLERGIES: 1. CODEINE. 2. DIAZEPAM. 3. BENADRYL. 4. PENICILLIN. MEDICATIONS: At home from list provided by the patient include: 1. Amitriptyline 25 mg p.o. q.h.s. 2. Aspirin 325 mg daily. 3. Lipitor 40 mg p.o. daily. 4. Calcium plus D 600 mg daily. 5. Pletal 50 mg b.i.d. 6. Cymbalta 60 mg daily. 7. Effient 10 mg daily. 8. Metoprolol tartrate written as tartrate. 9. Niaspan extended release daily. 10. Nystatin t.i.d. as needed. 11. Requip 2 tablets, dose not specified, taking at night. 12. Senna q.h.s. 13. Singular 10 mg daily. 14. Symbicort 160/4.5 b.i.d. 15. Temazepam 15 mg p.o. q.h.s. as needed for sleep. 16. Vitamin D 50,000 units q. Sunday. PAST MEDICAL HISTORY: 1. Hypertension. 2. Coronary artery disease with history of a CABG, 02/05/2003, and stent placement x3 subsequently. a) Negative stress test, 06/2013. 3. History of UT. 4. Obesity with BMI over 32. 5. Reactive airway disease with ongoing tobacco abuse. 6. Osteoarthritis/degenerative joint disease. PAST SURGICAL HISTORY: Includes: 1. Left knee replacement 12/[address] Lopez. 2. Hysterectomy. SOCIAL HISTORY: Still smoking 1/2 pack per day. She is . No alcohol use of significance. No illicit drug use. FAMILY HISTORY: Positive for hypertension, coronary disease and diabetes. REVIEW OF SYSTEMS: Per HPI and past medical history. Essentially negative in all 14 reviewed areas otherwise. GENERAL: No fever, chills, drenching sweats, anorexia or weight changes. HEENT: She has dentures and wears glasses. No hearing deficit. No odynophagia or dysphagia. RESPIRATORY: No chronic cough or shortness of breath. No MDI use at home apart from her steroid inhaler. She does have a usual smoker's cough which is baseline for her. CARDIAC: No chest pain or palpitations. No PND or orthopnea. GI: Positive for GERD and occasional constipation. No diarrhea. : No gout or nephrolithiasis. No dysuria or frequency. MUSCULOSKELETAL: Per HPI and past medical history. No myalgias. SKIN: No rash or urticaria. HEMATOLOGIC: No DVT or PE history. No anemia. No easy bleeding or bruising except with Effient and Pletal therapy and continued aspirin use. NEUROLOGIC: No TIA or CVA history. No seizure disorder. PSYCHOLOGICAL: No treated depression/anxiety. No unmanaged symptoms. PHYSICAL EXAMINATION: GENERAL: This is an obese woman in no acute distress. Her mood is appropriate. Her affect is congruent. VITAL SIGNS: Stable. Blood pressure 110/76. Heart rate 88 and regular. Respirations 15 to 20 and unlabored. Temperature 98.8. BMI 32.3 based on actual height and weight. O2 saturation 94% on 2 liters nasal cannula. HEENT: She is alert and oriented x3. Normocephalic, atraumatic. Pupils equal, round and reactive to light. Extraocular movements intact. Sclerae clear. Oropharynx pink and moist. No lesion. NECK: Supple. No audible carotid bruits or lymphadenopathy. LUNGS: Clear bilaterally with good aeration and effort. CARDIAC: Regular rate and rhythm. No murmur, rub or gallop appreciable to me. ABDOMEN: Soft and nontender. Bowel sounds present x4. No mass, rebound or guarding. EXTREMITIES: No edema, cyanosis or clubbing. She is moving all four extremities appropriately. SKIN: Warm and dry. Her Patrice wrap is clean, dry and intact. DIAGNOSTIC DATA: From her preoperative assessment show a hemoglobin A1c 5.7. Coags are unremarkable. C-reactive protein slightly elevated at 10.4. WBC 6.6 thousand, hemoglobin 15.2, platelets 330,000 with 57% neutrophils. BUN 16, creatinine 1, potassium 3.8, glucose 96. Potassium today 3.5. Urinalysis was unremarkable on 12/10/2013 with no microscopic examination done or indicated. EKG (I read) shows normal sinus rhythm with T wave abnormalities consistent with anterolateral ischemia. This is different from an EKG from [address]-T wave abnormalities with a prolonged QT and a rate of 68. I reviewed Dr. Chicas's cardiac clearance and he has a note indicating a summary of the stress test that it was normal. ASSESSMENT AND PLAN: 63-year-old woman with coronary disease and a prior coronary artery bypass grafting as well as stents with abnormal EKG but a stress test within the last several months that is reported as normal. Clinically she is asymptomatic. She has hypertension, reactive airway disease, ongoing tobacco abuse and now a right knee replacement. Her inflammatory markers are mildly elevated as well. It is good to have that for baseline. She will be on a bowel regimen as well as an aggressive pulmonary toilet. I put her on Albuterol nebs as scheduled and as needed. She will be watched closely. I will check a troponin and EKG in the morning as well as a magnesium. Plan otherwise per orders in this complex woman. She is at increased risk of adverse outcome with her significant coronary disease. She has done well in the past. Hopefully that will serve her well for this surgery. Dr. Lopez will continue to follow this interesting though complex patient. Aliya Bejarano M.D.* HARSHAD/danyell Voice Rec. ID #[id number] Voice Original ID #[id number] Doc ID #[id number] Rev. #0 cc: Aliya Bejarano M.D.* Ingrid Lopez M.D.* DO NOT TEXT EDIT THIS LINE :[facility]:[id number]: Authenticated by ALIYA BEJARANO MD On 01/06/2014 07:44:48 AM documented in this encounter OR Notes * Op Note - Interface, See Report - 12/16/2013 8:29 AM EST [place] [id number] OPERATIVE REPORT PATIENT NAME: SUSANNAH ANDRES1 2 [facility] NO: [id number] DATE OF : 1950 DATE OF OPERATION: 12/16/2013 SURGEON: Ingrid Lopez M.D. ADDRESSER: Nikole Tovar PA-C PREOPERATIVE DIAGNOSIS: Advanced right knee arthritis. POSTOPERATIVE DIAGNOSIS: Advanced right knee arthritis. PROCEDURE PERFORMED: Right total knee arthroplasty with DePuy Sigma posterior stabilized rotating platform components (#4 narrow posterior stabilized femur, #3 rotating platform tibia, 10 mm rotating platform polyethylene with a 38 three-peg all poly patella). MATERIAL TO LAB: None. INDICATIONS: The patient is a 63-year-old female with debilitating right knee pain that failed to improve in spite of conservative treatment. Options have been discussed at length with her and she wished to proceed with surgical intervention knowing the risks, benefits and alternatives and consented. Please see my office notes for details with regards to preoperative counseling and operative rationale. DESCRIPTION OF PROCEDURE: The patient was positively identified in the preoperative holding area, brought to the operating suite and placed in a supine position. After adequate general anesthetic had been achieved, the right lower extremity was prepped and draped in the usual sterile fashion after application of a tourniquet to the right upper thigh, which was used during the procedure for a total of 56 minutes. Landmarks of the knee were identified and an incision was made just off the medial aspect of midline for a medial parapatellar approach. The patella was tucked into the lateral gutter. Tibial cut was made first after the menisci had been resected both medially and laterally and the tibia was subluxed anteriorly after resection of the ACL and PCL. Distal femoral cut was then made with the intramedullary guide and subsequently sized for a #4 narrow femur. Anterior, posterior and chamfer cuts were then made. A block and tariq technique was utilized to assess the cuts which were symmetric with a 10 mm block both in flexion and extension and the tibial cut was noted to be perpendicular to the tibial axis. Therefore, final femoral preparations were made with the box cutting guide followed by final tibial preparations to accommodate a #3 tibia. With the trials in place, full extension and flexion of the knee was noted with no instability. The patella was then prepared for a 38 three-peg all poly patella, which had excellent tracking. All the trial components were removed and final components were placed with methylmethacrylate cement at the implant bone interfaces with namely a #3 rotating platform tibia, #4 narrow posterior stabilized femur with a 38 three-peg all poly patella and a trial 12.5 mm insert for cement compression. All the excess cement was removed from the bone implant interfaces and the knee was copiously irrigated with pulsatile lavage. Cement was allowed to harden and the trial insert was then removed after the cement had hardened and the tourniquet deflated. There was no brisk bleeding noted in the popliteal fossa, in particular. Hemostasis was obtained with electrocautery. Final 10 mm insert was then placed and full flexion and extension of the knee was noted with no instability with excellent patellar tracking. Knee was copiously irrigated. Attention was directed towards closure. The medial parapatellar arthrotomy was closed with #1 Vicryl in an interrupted [id number] fashion, followed by closure of the deep fascial layer with #1 Vicryl followed by closure of the subcutaneous layer with 2-0 Vicryl and the skin with 3-0 Monocryl in a running subcuticular fashion. Sure+Close was applied to the skin edges followed by a sterile dressing with Xeroform, 4 x 4's, abdominal pad, soft roll and an Patrice wrap. She tolerated the procedure well and was brought to the Recovery Room in good condition. POSTOPERATIVE PLAN: 1. The patient will rehabilitate per the post total knee arthroplasty protocol with early range of motion weightbearing. 2. I anticipate brief hospitalization for initial rehabilitation and pain control, followed by continued rehabilitation in either a home health or supervised setting. 3. Postoperative medical management with Dr. Aliya Bejarano. 4. Lovenox will be continued for two weeks postoperatively as long as there is no contraindication. Ingrid Lopez M.D.* MK/rxmjh Voice Rec. ID #[id number] Original Voice Rec. ID #[id number] Doc ID #[id number] Revision Count: 0 cc: Ingrid Lopez M.D.* Shahid Fall M.D.* Nikole Tovar PA-C <start header> [place] [id number] OPERATIVE REPORT PATIENT NAME: SUSANNAH ANDRES1 2 [facility] NO: [id number] DATE OF : 1950 <end header> DO NOT TEXT EDIT THIS LINE :C[employer]ADER:[id number]: Authenticated by INGRID LOPEZ M.D. On 12/18/2013 09:11:36 AM documented in this encounter Plan of Treatment Not on file documented as of this encounter Procedures Procedure Name Priority Date/Time Associated Diagnosis Comments CBC (NO DIFF) Routine 12/18/2013 4:49 AM EST MAGNESIUM Routine 12/18/2013 4:49 AM EST TROPONIN Routine 12/17/2013 4:55 AM EST VITAMIN D,25-HYDROXY Routine 12/17/2013 4:55 AM EST CBC (NO DIFF) Routine 12/17/2013 4:55 AM EST MAGNESIUM Routine 12/17/2013 4:55 AM EST BASIC METABOLIC PANEL Routine 12/17/2013 4:55 AM EST XR KNEE 1 OR 2 VW UNILATERAL Routine 12/16/2013 1:00 PM EST POCT GLUCOSE FINGERSTICK Routine 12/16/2013 12:51 PM EST CONV OR POTASSIUM Routine 12/16/2013 8:5 8 AM EST PROTIME-INR Routine 12/16/2013 8:58 AM EST TYPE AND SCREEN Routine 12/16/2013 8:58 AM EST SCANNED EKG 12/16/2013 XR CHEST PA AND LATERAL Routine 12/10/2013 11:50 AM EST APTT Routine 12/10/2013 10:30 AM EST SEDIMENTATION RATE Routine 12/10/2013 10 :30 AM EST PROTIME-INR Routine 12/10/2013 10:30 AM EST CBC AND DIFFERENTIAL Routine 12/10/2013 10:30 AM EST C-REACTIVE PROTEIN Routine 12/10/2013 10 :30 AM EST HEMOGLOBIN A1C Routine 12/10/2013 10:30 AM EST BASIC METABOLIC PANEL Routine 12/10/2013 10:30 AM EST URINALYSIS WITHOUT MICROSCOPIC (NO CULTURE) Routine 12/10/2013 10:26 AM EST documented in this encounter Results * Magnesium (12/18/2013 4:49 AM EST) Magnesium 2.0 1.7 - 2.4 mg/dL [facility] Blood specimen (specimen) 12/18/2013 4:49 AM EST Narrative [facility] - 12/18/2013 5:31 AM EST Specimen Type: Blood Aliya Bejarano MD LAB BLOOD ORDERABLES Fi nal Result [facility] [address] [place] [id number], * (ABNORMAL) CBC (No diff) (12/18/2013 4:49 AM EST) WBC 8.79 3.50 - 10.80 K[facility] RBC 3.88(L) 3.89 - 5.14 M/[facility] Hemoglobin 11.9 11.5 - 15.5 g/dL [facility] Hematocrit 34.9 34.5 - 44.0 % [facility] MCV 89.9 80.0 - 99.0 fL [facility] MCH 30.7 27.0 - 31.0 pg [facility] MCHC 34.1 32.0 - 36.0 g/dL [facility] RDW-CV 13.1 11.3 - 14.5 % [facility] Platelets 271 150 - 450 [facility] Blood specimen (specimen) 12/18/2013 4:49 AM EST [facility] - 12/18/2013 5:15 AM EST Specimen Type: Blood Ingrid Lopez MD LAB BLOOD ORDERABLES Final Res ult Performing Organization Address [facility] [place] [address], * (ABNORMAL) Magnesium (12/17/2013 4:55 AM EST) Pathologist [facility] Magnesium 1.4(L) 1.7 - 2.4 mg/dL [facility] Blood specimen (specimen) 12/17/2013 4:55 AM EST [facility] - 12/17/2013 5:52 AM EST Specimen Type: Blood Aliya Bejarano MD LAB BLOOD ORDERABLES Fi nal Result Performing Organization Address [facility] [place] [address], * Troponin (12/17/2013 4:55 AM EST) Pathologist [facility] Troponin I 0.04 0.00 - 0.60 ng/mL [facility] Blood specimen (specimen) 12/17/2013 4:55 AM EST Narrative [facility] - 12/17/2013 5:52 AM EST Specimen Type: Blood Aliya Bejarano MD LAB BLOOD ORDERABLES Fi nal Result Performing Organization Address [facility] [place] [address], * Vitamin D 25 hydroxy (12/17/2013 4:55 AM EST) Pathologist [facility] 25 Hydroxy, Vitamin D 52.1 ng/mL [facility] Comment: DF by IF @ 12/17/2013 05:57 Reference Ranges for Total Vitamin D 25(OH) Deficiency <20.0 ng/ml Insufficiency ? 20-30 ng/ml Sufficiency 30-100 ng/ml Toxicity >100 ng/ml Blood specimen (specimen) 12/17/2013 4:55 AM EST Narrative [facility] - 12/17/2013 5:57 AM EST Specimen Type: Blood Aliya Bejarano MD LAB BLOOD ORDERABLES Fi nal Result Performing Organization Address [facility] Co de Phone Number [facility] [address] [place] [address], * (ABNORMAL) Basic metabolic panel (12/17/2013 4:55 AM EST) Pathologist [facility] Glucose 119(H) 70 - 100 mg/dL [facility] BUN 9 6 - 20 mg/dL [facility] Creatinine 0.9 0.6 - 1.3 mg/dL [facility] Sodium 134(L) 136 - 145 mmol/L [facility] Potassium 3.7 3.4 - 5.4 mmol/L [facility] Chloride 100 98 - 107 mmol/L [facility] CO2 28 20 - 31 mmol/L [facility] Calcium 8.8 8.7 - 10.4 mg/dL [facility] eGFR 67 ml/min/1.7 32 [facility] Comment: DF by IF @ 12/17/2013 05:52 ?? [employer] Guidelines ?Stage ? Description ?GFR ?1 ?Normal or High ? 90+ ?2 ?Mild decrease ? 60-89 ?3 ?Moderate decrease ?30-59 ?4 ?Severe decrease ?15-29 ?5 ?Kidney failure ?<15 Anion Gap 7 3 - 11 mmol/L [facility] Blood specimen (specimen) 12/17/2013 4:55 AM EST Narrative [facility] - 12/17/2013 5:52 AM EST Specimen Type: Blood Aliya Bejarano MD LAB BLOOD ORDERABLES Fi nal Result [facility] [address] [place] [address], * CBC (No diff) (12/17/2013 4:55 AM EST) WBC 9.42 3.50 - 10.80 K/[facility] RBC 4.00 3.89 - 5.14 M/[facility] Hemoglobin 12.3 11.5 - 15.5 g/dL [facility] Hematocrit 36.2 34.5 - 44.0 % [facility] MCV 90.5 80.0 - 99.0 fL [facility] MCH 30.8 27.0 - 31.0 pg [facility] MCHC 34.0 32.0 - 36.0 g/dL [facility] RDW-CV 13.2 11.3 - 14.5 % [facility] Platelets 287 150 - 450 K/[facility] Blood specimen (specimen) 12/17/2013 4:55 AM EST Narrative [facility] - 12/17/2013 5:30 AM EST Specimen Type: Blood us Ingrid Lopez MD LAB BLOOD ORDERABLES Final Res ult Performing Organization Address City/State/[facility] Co de Phone Number [facility] [address] [place] [address], * XR KNEE 1 OR 2 VW UNILATERAL (12/16/2013 1:00 PM EST) Anatomical Region Laterality Modality Radiographic Debra ging 12/16/2013 1:00 PM EST Narrative 12/16/2013 1:29 PM EST RIGHT KNEE HISTORY: ??pain, postop 2 views of the right knee demonstrate a total knee prosthesis. The prosthetic device is well positioned. There is no loosening or dislocation. IMPRESSION- Expected postoperative findings. T: ??12/16/2013 ? Spring Coiler Hand- YA WOLF ? Reading RadiologistNikkie DAVIS ? Releasing RadiologistNikkie DAVIS ? Released Date Time- 12/16/13 1640 Procedure Note Timbo Guan MD - 08/17/2015 RIGHT KNEE HISTORY: pain, postop 2 views of the right knee demonstrate a total knee prosthesis. The prosthetic device is well positioned. There is no loosening or dislocation. IMPRESSION- Expected postoperative findings. Spring Coiler Hand- YA WOLF Reading Radiologist- Khoa DAVIS Releasing Radiologist- Khoa DAVIS Released Date Time- 12/16/13 1640 Ingrid Lopez MD [facility] DIAGNOSTIC IMAGING ORDERAB LES Final Result * POCT Glucose Fingerstick (12/16/2013 12:51 PM EST) Glucose 118 75 - 125 mg/dL [facility] Blood specimen (specimen) 12/16/2013 12:51 PM EST Narrative [facility] - 12/16/2013 12:54 PM EST Specimen Type: Blood Historical Provider POINT OF CARE TEST ORDERA BLES Final Result [facility] [address] [id number], * (ABNORMAL) OR Potassium (12/16/2013 8:58 AM EST) Potassium 3.46(L) 3.5 - 5.3 mmol/L [facility] Venous blood specimen (specimen) 12/16/2013 8:58 AM EST [facility] - 12/16/2013 9:23 AM EST Specimen Type: Venous Ingrid Lopez MD LAB BLOOD ORDERABLES Final Res ult Performing Organization Address [facility] [place] [address], * Protime-INR (12/16/2013 8:58 AM EST) Pathologist [facility] Protime 10.9 9.6 - 11.5 Seconds [facility] INR 1.02 [facility] Comment: US by IF @ 12/16/2013 09:46 Therapeutic Ranges for INR: 2.0-3.0 (PT 20-30) ?2.5-3.5 (PT 25-34) Blood specimen (specimen) 12/16/2013 8:58 AM EST [facility] - 12/16/2013 9:46 AM EST Specimen Type: Blood Ingrid Lopez MD LAB BLOOD ORDERABLES Final Res ult Performing Organization Address City/[facility] Co de Phone Number [facility] [address] [place] [address], * Type and screen (12/16/2013 8:58 AM EST) ABORh A Rh Negative [facility] Antibody Screen Negative [facility] Blood specimen (specimen) 12/16/2013 8:58 AM EST [facility] - 12/16/2013 10:08 AM EST Specimen Type: Blood Ingrid Lopez MD BLOOD BANK TEST ORDERABLES Fin al Result [facility] [address] [id number], * SCANNED EKG (12/16/2013) [facility] Onbase ECG ORDERABLES Final Result * X-RAY CHEST PA AND LATERAL (12/10/2013 11:50 AM EST) Anatomical Region Laterality Modality Body, Chest N/A Radiographic Debra ging 12/10/2013 11:5 0 AM EST Narrative 12/10/2013 12:59 PM EST CHEST, PA AND LATERAL DATE OF EXAM: ??12/10/2013. INDICATION: Hypertension, right knee pain. 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 ??The heart size is normal. The aortic arch is partially calcified. No fracture of the left humeral neck is present. The lungs are free of focal opacities. The osseous structures are normal. IMPRESSION- No acute cardiopulmonary disease. D: ??12/10/2013 E: ??12/10/2013 ? Spring Coiler Hand- ALEKSANDRA BRANNON ? Reading Radiologist- ELKIN JACKSON ? Releasing Radiologist- ELKIN JACKSON ? Released Date Time- 12/10/13 1451 Procedure Note Elkin Patterson MD - 08/17/2015 CHEST, PA AND LATERAL DATE OF EXAM: 12/10/2013. INDICATION: Hypertension, right knee pain. 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 The heart size is normal. The aortic arch is partially calcified. No fracture of the left humeral neck is present. The lungs are free of focal opacities. The osseous structures are normal. IMPRESSION- No acute cardiopulmonary disease. E: 12/10/2013 Spring Coiler Hand- ALEKSANDRA BRANNON Reading Radiologist- ELKIN JACKSON [facility] Radiologist- ELKIN JACKSON Released Date Time- 12/10/13 1451 Ingrid Lopez MD IMG DIAGNOSTIC IMAGING ORDERAB LES Final Result * (ABNORMAL) C-reactive protein (12/10/2013 10:30 AM EST) Pathologist [facility] C-Reactive Protein 10.400(H) 0.000 - 10.000 mg/L [facility] Blood specimen (specimen) 12/10/2013 10:30 AM EST [facility] - 12/10/2013 11:19 AM EST Specimen Type: Serum 1 Ingrid Lopez MD LAB BLOOD ORDERABLES Final Res ult Performing Organization Address [facility] Co de Phone Number [facility] [address] [place] [address], * Sedimentation rate (12/10/2013 10:30 AM EST) Pathologist [facility] Sed Rate 5 0 - 30 mm/hr [facility] Blood specimen (specimen) 12/10/2013 10:30 AM EST [facility] - 12/10/2013 11:39 AM EST Specimen Type: Blood Ingrid Lopez MD LAB BLOOD ORDERABLES Final Res ult Performing Organization Address [facility]/[place] [address], * APTT (12/10/2013 10:30 AM EST) PTT 27 24 - 31 Seconds [facility] Comment: US by IF @ 12/10/2013 11:14 PTT = The equivalent PTT values for the therapeutic range of heparin levels at 0.3 to 0.5 U/ml are 45 to 60 seconds. PTT = The equivalent PTT values for the therapeutic range of heparin levels at 0.3 to 0.5 U/ml are 45 to 60 seconds. Blood specimen (specimen) 12/10/2013 10:30 AM EST Narrative [facility] - 12/10/2013 11:14 AM EST Specimen Type: Blood Ingrid Lopez MD LAB BLOOD ORDERABLES Final Res ult Performing Organization Address [facility] [place] [address], * Protime-INR (12/10/2013 10:30 AM EST) Protime 10.7 9.6 - 11.5 Seconds [facility] INR 1.00 [facility] Comment: US by IF @ 12/10/2013 11:14 Therapeutic Ranges for INR: 2.0-3.0 (PT 20-30) ?2.5-3.5 (PT 25-34) Blood specimen (specimen) 12/10/2013 10:30 AM EST Narrative [facility] - 12/10/2013 11:14 AM EST Specimen Type: Blood Ingrid Lopez MD LAB BLOOD ORDERABLES Final Res ult Performing Organization Address [facility] de Phone Number [facility] [address] [place] [address], * Hemoglobin A1c (12/10/2013 10:30 AM EST) Hemoglobin A1C 5.7 4.00 - 6.00 % [facility] Comment: DF by IF @ 12/10/2013 11:16 The [place] [employer] recommends maintenance of Hemoglobin A1C at 7.0% or lower. Goals for Hemoglobin A1C reduction may need to be modified if hypoglycemia is a problem. Mean Bld Glu Estim. 111 mg/dL [facility] Blood specimen (specimen) 12/10/2013 10:30 AM EST Narrative [facility] - 12/10/2013 11:16 AM EST Specimen Type: Blood us Ingrid Lopez MD LAB BLOOD ORDERABLES Final Res ult [facility] [address] [place] [address], * Basic metabolic panel (12/10/2013 10:30 AM EST) Glucose 96 70 - 100 mg/dL [facility] BUN 16 6 - 20 mg/dL [facility] Creatinine 1.0 0.6 - 1.3 mg/dL [facility] Sodium 142 136 - 145 mmol/L [facility] Potassium 3.8 3.4 - 5.4 mmol/L [facility] Chloride 104 98 - 107 mmol/L [facility] CO2 28 20 - 31 mmol/L [facility] Calcium 9.6 8.7 - 10.4 mg/dL [facility] eGFR 60 ml/min/1.7 32 [facility] Comment: DF by IF @ 12/10/2013 11:21 ?? National Kidney Foundation Guidelines ?Stage ? Description ?GFR ?1 ?Normal or High ? 90+ ?2 ?Mild decrease ? 60-89 ?3 ?Moderate decrease ?30-59 ?4 ?Severe decrease ?15-29 ?5 ?Kidney failure ?<15 Anion Gap 9 3 - 11 mmol/L [facility] Blood specimen (specimen) 12/10/2013 10:30 AM EST Narrative [facility] - 12/10/2013 11:21 AM EST Specimen Type: Blood us Ingrid Lopez MD LAB BLOOD ORDERABLES Final Res ult [facility] [address] [place] [address], * (ABNORMAL) CBC and Differential (12/10/2013 10:30 AM EST) WBC 6.61 3.50 - 10.80 K/mcL [facility] RBC 4.85 3.89 - 5.14 M/[facility] Hemoglobin 15.2 11.5 - 15.5 g/dL [facility] Hematocrit 43.6 34.5 - 44.0 % [facility] MCV 89.9 80.0 - 99.0 fL [facility] MCH 31.3(H) 27.0 - 31.0 pg [facility] MCHC 34.9 32.0 - 36.0 g/dL [facility] RDW-CV 13.2 11.3 - 14.5 % [facility] Platelets 330 150 - 450 K/[facility] Neutrophils Absolute 3.79 1.50 - 8.30 [facility] Lymphocytes Absolute 2.03 0.60 - 4.80 [facility] Monocytes Absolute 0.48 0.00 - 1.00 [facility] Eosinophils Absolute 0.26 0.10 - 0.30 [facility] Basophils Absolute 0.03 0.00 - 0.20 [facility] Neutrophil Rel % 57.3 41.0 - 71.0 % [facility] Lymphocyte Rel % 30.7 24.0 - 44.0 % [facility] Monocyte Rel % 7.3 0.0 - 12.0 % [facility] Eosinophil Rel % 3.9(H) 0.0 - 3.0 % [facility] Basophil Rel % 0.5 0.0 - 1.0 % [facility] Immature Granulocyte Rel % 0.3 0.0 - 0.6 % [facility] Blood specimen (specimen) 12/10/2013 10:30 AM EST Narrative [facility] - 12/10/2013 10:56 AM EST Specimen Type: Blood Ingrid Lopez MD LAB BLOOD ORDERABLES Final Res ult Performing Organization Address City/State/[facility] [place] [address], * Urinalysis Without Microscopic (12/10/2013 10:26 AM EST) Color, UA Yellow [facility] Appearance, UA Clear [facility] pH, UA 5.5 4.5 - 8.0 [facility] Specific [place], UA 1.024 1.001 - 1.030 [facility] Glucose, UA Negative NEGATIVE mg/dL [facility] Ketones, UA Negative NEGATIVE [facility] Bilirubin, UA Negative NEGATIVE [facility] Blood, UA Negative NEGATIVE [facility] Protein, UA Negative NEGATIVE mg/dL [facility] Comment: DF by IF @ 12/10/2013 10:55 This test was previously referred to as Albumin Nitrite, UA Negative NEGATIVE [facility] Leukocytes, UA Negative NEGATIVE [facility] Urobilinogen, UA 0.2 0.2 - 1.0 mg/dL [facility] Urine specimen (specimen) Urine specimen obtained by clean catch procedure / Unknown 12/10/2013 10:26 AM EST Narrative [facility] - 12/10/2013 10:55 AM EST Specimen Type: Urine Specimen Source: Clean Catch Urine Microscopic not indicated. Ingrid Lopez MD URINE ORDERABLES Final Result Performing Organization Address City/State/[facility] Co de Phone Number [facility] [address] [place] [address], documented in this encounter Visit Diagnoses Not on filedocumented in this encounter Care Teams Director Of Compensation Relationship Specialty Start Date End Date Michael Baez MD [address] [facility] [address] [facility] [place] [address] PCP - General Adolescent Medicine 04/25/23 documented as of this encounter
--- OUTSIDE RECORDS SUMMARY | 2024-10-13 13:27 | XMS_ITS | Encounter Summary ---
[facility] Address [address] [place] [address] Care Team Providers Care Brand Manager Name Role Phone Michael Baez MD Primary Care Provider Encounter Details Date Type Department Care Team (Late st Contact Info) Description 12/11/2018 External CPT II TAG MACHINE OPERATOR - [employer] Social History Tobacco Use Types Packs/Day Years Used Date Smoking Tobacco: Every Day Cigarettes 1 25 Comments Unknown Sex and Gender Information Value Date Recorded Sex Assigned at Not on file Legal Sex Female 12:01 PM EDT Gender Identity Not on file Sexual Orientation Not on file documented as of this encounter Plan of Treatment Not on file documented as of this encounter Visit Diagnoses Not on filedocumented in this encounter Care Teams Brand Manager Relationship Specialty Start Date End Date Michael Baez MD [address] [facility] [address] [facility] [facility] [address] [address] PCP - General Adolescent Medicine 04/25/23 documented as of this encounter
--- OUTSIDE RECORDS SUMMARY | 2024-10-13 13:27 | XMS_ITS | Encounter Summary ---
Author Organization [facility] Address [address] [place] [address] Care Team Providers Care Business Case Analyst Name Role Phone Unavailable Primary Care Provider Unavailabl e Encounter Details Date Type Department Care Team (Late st Contact Info) Description 08/05/2008 Historical Mammograp hy Encounter [facility] [address] [place] [address] Interface, See Report Social History [...] Procedure Name Priority Date/Time Associated Diagnosis Comments MAMMO HISTORICAL RESULT Routine 08/05/2008 2:40 PM EDT documented in this encounter Results * MAMMO HISTORICAL RESULT (08/05/2008 2:40 PM EDT) Anatomical Region Laterality Modality Breast Mammography 08/05/2008 2:40 PM EDT Narrative 08/12/2008 4:41 PM EDT ?[facility] ? [address] ??[place], [place] [address] ? NAME: SUPRIYA SALGADO ? : ??52 ??MR#: [id number] ? LOC: ?? DIS ? AGE: 57Y ?? Pt type: CO ?Exam Date: 08/05/08 1443 ? SEX: F ?? AN#:[id number] ?Ck-in#: [id number] ? [facility] ? [address] ? [address] ? [place] ?[place] ?[address] ? Chk-in # ?? Order ?Exam ?[id number] ?? 0001 ? [id number] ??BC MAMM DIAG UNILAT DIG PNL*L ? Ord Diag: ABN MMG 6M FU ? HISTORY: ??The patient is 57 years old and returns for short term follow- up of calcifications subareolar left breast. ?? LEFT DIAGNOSTIC DIGITAL MAMMOGRAM: ?? FILM COMPARISON: 09/23/07. ?? TECHNIQUE: Left CC, left ML and left MLO views. ?? FINDINGS: ??Scattered densities are noted. ??Denser tissue is noted subareolar and there are a few microcalcifications. ??These are stable from the prior exam. ?? No spiculated mass or suspicious microcalcifications are seen. ??Benign left axillary lymph node is identified. ?? IMPRESSION: ??Stable microcalcifications subareolar left breast compared to 09/01. ?? RECOMMENDATION: ??One year follow-up bilateral mammogram in 02/01. ?? Bi-Rads II, Benign. ?? ICAD was utilized. ?? The results of this examination were communicated directly with the patient and she was given a report in lay terminology. ?/READ BY/ JANES MCFARLAND ?/Released By/ JANES MCFARLAND ?Released By Date/Time: ??08/12/08 1638 ?Swiss Type Screw Machine Operator: ??DME ? FINAL ? Page ??1 ? RADIOLOGY REPORT us See Report Interface IMG MAMMOGRAPHY ORDERABLES Final Result documented in this encounter Visit Diagnoses Not on filedocumented in this encounter
--- OUTSIDE RECORDS SUMMARY | 2024-10-13 13:27 | XMS_ITS | Clinical Summary ---
Author Organization [email or web address] [facility] Address [address] [place] [address] Care Team Providers Care Spinning Frame Fixer Name Role Phone Unavailable Primary Care Provider Unavailabl e Social History Tobacco Use Types Packs/Day Years Used Date Smoking Tobacco: Never Assessed Comments Unknown Sex and Gender Information Value Date Recorded Sex Assigned at Not on file Legal Sex Female 4:37 PM CDT Gender Identity Not on file Sexual Orientation Not on file Plan of Treatment Not on file
--- OUTSIDE RECORDS SUMMARY | 2024-10-13 13:27 | XMS_ITS | Encounter Summary ---
Author Organization [facility] Address [address] [place] [address] Care Team Providers Care Gun Profiler Name Role Phone Michael Baez MD Primary Care Provider + [phone] Reason for Visit * Reason Onset Date Comments Med Refill 07/14/2021 Encounter Details Date Type Department Care Team (Late Contact Info) Description 07/14/2021 Refill [facility] [place] [address] [place] [address] Brandee Mich[facility] [address] [place] [address] Social History Tobacco Use Types Packs/Day Years Used Date Smoking Tobacco: Former Comments Unknown Sex and Gender Information Value Date Recorded Sex Assigned at Not on file Legal Sex Female 7:36 PM EDT Gender Identity Not on file Sexual Orientation Not on file documented as of this encounter Plan of Treatment Upcoming Encounters Date Type Department Care Team (Late Contact Info) Description 03/30/2025 2:00 PM EDT Office Visit [facility] [place] [address], [address] [place] [address] Acacia Scott, STRAIGHTENING ROLL OPERATOR [address] [place] [address] Scheduled Procedures Name Priority Associated Diagnoses Date/Ti me ARTHROPLASTY, HIP, TOTAL Arthritis of right hip documented as of this encounter Visit Diagnoses Not on filedocumented in this encounter Care Teams Gun Profiler Relationship Specialty Start Date End Date Michael Baez MD [address] [place], [place] [address] PCP - General 04/08/21 documented as of this encounter
--- OUTSIDE RECORDS SUMMARY | 2024-10-13 13:27 | XMS_ITS | Encounter Summary ---
Author Organization [facility] Address [address] [place] [address] Care Team Providers Care Hardener Helper Name Role Phone Michael Baez MD Primary Care Provider + [phone] Reason for Visit * Reason Onset Date Comments Med Refill 07/12/2021 Encounter Details Date Type Department Care Team (Late Contact Info) Description 07/12/2021 Refill [facility] [place] [address] , [address] [place] [address] [place] [address] Social History Tobacco Use Types Packs/Day Years [...] Description 03/30/2025 2:00 PM EDT Office Visit [facility] [place] [address] , [address] [place] [address] Acacia Scott, ELECTRO PLATER [address] [place] [address] Scheduled Procedures Name Priority Associated Diagnoses Date/Ti me ARTHROPLASTY, HIP, TOTAL Arthritis of right hip documented as of this encounter Visit Diagnoses Not on filedocumented in this encounter Care Teams Hardener Helper Relationship Specialty Start Date End Date Michael Baez MD [address] [place], [place] [address] PCP - General 04/08/21 documented as of this encounter
--- OUTSIDE RECORDS SUMMARY | 2024-10-13 13:27 | XMS_ITS | Referral Summary ---
Author Organization [facility] Address [address] [place] [address] Care Team Providers Care Marketing Operations Assistant Name Role Phone Unavailable Primary Care Provider [...]
--- OUTSIDE RECORDS SUMMARY | 2024-10-13 13:27 | XMS_ITS | Referral Summary ---
Author Organization [facility] Address [address] [address] Phone Care Team Providers Care Ram Press Operator Name Role Phone Unavailable Primary Care Provider Unavailabl e Allergies Active Allergy Reactions Criticality Noted Date Comments Codeine Nausea And Vomiting 2008 Diazepam Other (See Comments) 10/22/2016 Diphenhydramine Hcl Itching 2008 Penicillins Hives,Shortness Of Breath High 6 Medications apixaban (ELIQUIS) 5 mg Oral Tablet Take 5 mg by mouth 2 times daily. Active atorvastatin (LIPITOR) 40 mg Oral Tablet daily. Active fluticasone-ume clidinium-vilan terol (TRELEGY ELLIPTA) 100-62.5-25 mcg Inhl Disk with Device daily. Active metoprolol (LOPRESSOR) 50 mg Oral Tablet metoprolol tartrate 50 mg tablet Two times a day Active rOPINIRole (REQUIP) 2 mg Oral Tablet Take by mouth. Act kristen senna (SENOKOT) 8.6 mg Oral Tablet daily. Active temazepam (RESTORIL) 15 mg Oral Capsule Take by mouth. Active Active Problems Problem Noted Date Diagnosed Date Afib 02/13/2019 Chronic obstructive lung disease 09/11/2017 Social History Tobacco Use Types Packs/Day Years Used Date Smoking Tobacco: Former Cigarettes 2 52 1 965 - 2017 Smokeless Tobacco: Never Tobacco Cessation:Counseling Given: No Comments Unknown Sex and Gender Information Value Date Recorded Sex Assigned at Not on file Legal Sex Female 3:14 PM EDT Gender Identity Not on file Sexual Orientation Not on file Last Filed Vital Signs Vital Sign Reading Time Taken Comments Blood Pressure 130/84 02/18/2019 2:30 PM EDT Pulse 56 02/18/2019 2:30 PM EDT Temperature - - Respiratory Rate - - Oxygen Saturation 99% 02/18/2019 2:30 PM EDT Inhaled Oxygen Concentration - - Weight 88.8 kg (195 lb 12.8 oz) 02/18/2019 2:30 PM EDT Height 162.6 cm (5' 4 ) 02/18/2019 2:30 PM EDT Body Mass Index 33.61 02/18/2019 2:30 PM EDT Plan of Treatment Not on file Insurance [id number] [place] [place] [address] [address]
--- OUTSIDE RECORDS SUMMARY | 2024-10-13 13:27 | XMS_ITS | Encounter Summary ---
Author Organization [facility] Address [address] [place] [address] Care Team Providers Care Training Personnel Supervisor Name Role Phone Michael Baez MD Primary Care Provider + [phone] Reason for Visit * Reason Onset Date Comments HCN - Patient Message 09/15/2021 Encounter Details Date Type Department Care Team ([facility] st Contact Info) Description 09/15/2021 Telephone [facility] [place] [address], [address] [place] [address] Acacia Scott, OPTICAL ENGINEERING MANAGER [address] [place] [address] HCN - Patient Message Social History Tobacco Use Types Packs/Day Years [...] encounter Miscellaneous Notes * Telephone Encounter - Nakul Clark - 09/15/2021 1:20 PM EDT Patient Phone Message Reason for Call: [place] patient Patient requesting a cb. She thought that she was to just get labs, didn't know about appt missed on 09/08. She would like to be r/s. Best contact number and optimal time of day to reach caller: [phone] Note: Please do not reply to this [...] Description 03/30/2025 2:00 PM EDT Office Visit [facility] [place] [address], [address] [place] [address] Acacia Scott, OPTICAL ENGINEERING MANAGER [address] [place] [address] Scheduled Procedures Name Priority Associated Diagnoses Date/Ti me ARTHROPLASTY, HIP, TOTAL Arthritis of right hip documented as of this encounter Visit Diagnoses Not on filedocumented in this encounter Care Teams Training Personnel Supervisor Relationship Specialty Start Date End Date Michael Baez MD [address] [place] [address] PCP - General 04/08/21 documented as of this encounter
--- OUTSIDE RECORDS SUMMARY | 2024-10-13 13:27 | XMS_ITS | Encounter Summary ---
Author Organization [facility] Address [address] [place] [address] Care Team Providers Care Adzing And Boring Machine Feeder Name Role Phone Shahid Garcia PCT Primary Care Provider Unava ilable Reason for Visit * Reason Comments URI chest congestion Laryngitis Cough Encounter Details Date Type Department Care Team (Latest Contact Info) Description 10/22/2016 3:06 PM EST - 10/22/2016 3:28 PM EST Hospital Encounter [facility] [address] [place] [id number] Angel Remy MD Bronchitis with chronic airway obstruction (Primary Dx) Discharge Disposition: Home or Self Care Social History Tobacco Use Types Packs/Day Years Used Date Smoking Tobacco: Every Day Cigarettes 1 25 Tobacco Cessation:Ready to Q uit: Yes; Counseling Given: No Comments Unknown Sex and Gender Information Value Date Recorded Sex Assigned at Not on file Legal Sex Female 12:01 PM EDT Gender Identity Not on file Sexual Orientation Not on file documented as of this encounter Last Filed Vital Signs Vital Sign Reading Time Taken Comments Blood Pressure 149/87 10/22/2016 3:10 PM EST Pulse 64 10/22/2016 3:10 PM EST Temperature 37.3 ??C (99.1 ??F) 10/22/2016 3:10 PM ES T Respiratory Rate 20 10/22/2016 3:10 PM EST Oxygen Saturation 96% 10/22/2016 3:10 PM EST Inhaled Oxygen Concentration - - Weight 72.6 kg (160 lb) 10/22/2016 3:10 PM EST Height 162.6 cm (5' 4 ) 10/22/2016 3:10 PM EST Body Mass Index 27.46 10/22/2016 3:10 PM EST documented in this encounter Medications at Time of Discharge aspirin 81 MG chewable tablet Chew 1 tablet Daily. montelukast (SINGULAIR) 10 MG tablet Take 1 tablet by mouth Every Night. rOPINIRole (REQUIP) 2 MG tablet Take 1 tablet by mouth Every Night. temazepam (RESTORIL) 15 MG capsule Take 1 capsule by mouth At Night As Needed for Sleep. azithromycin (ZITHROMAX) 250 MG tabletIndications :Bronchitis with chronic airway obstruction Take 1 tablet by mouth Daily. Take 2 tablets the first day, then 1 tablet daily for 4 days. 6 tablet 10/22/2016 05/21/2023 benzonatate (TESSALON) 200 MG capsuleIndication s:Bronchitis with chronic airway obstruction Take 1 capsule by mouth 3 (Three) Times a Day As Needed for cough. 24 capsule 10/22/2016 05/21/2023 documented as of this encounter ED Notes * Angel Remy MD - 10/22/2016 3:18 PM EST Subjective History of Present Illness Supriya is a 65 yo here with c/o cough and laryngitis. Lost her 18 yo grandson a couple of days agoin a car accident and is very upset/ grieving. Nasal drainage. She says she is prone to bronchitis and pneumonia. Her cougth is only slightly productive/. Hx of COPD Dx. She is on home O2. . Review of Systems Constitutional: Positive for chills. Negative for diaphoresis and fever. HENT: Positive for congestion, sore throat and voice change. Respiratory: Positive for cough. Negative for shortness of breath and wheezing. Objective Vitals: 10/22/16 1510 BP: 149/87 BP Location: Left arm Patient Position: Sitting Pulse: 64 Resp: 20 Temp: 99.1 ??F (37.3 ??C) SpO2: 96% Weight: 160 lb (72.6 kg) Height: 64 (162.6 cm) Physical Exam Constitutional: She appears well-developed and well-nourished. No distress. HENT: Head: Normocephalic. Right Ear: External ear normal. Left Ear: External ear normal. Mouth/Throat: Oropharynx is clear and moist. Cardiovascular: Normal rate, regular rhythm and normal heart sounds. Pulmonary/Chest: Effort normal and breath sounds normal. No respiratory distress. She has no wheezes. She has no rales. Lymphadenopathy: She has no cervical adenopathy. Skin: She is not diaphoretic. Procedures MDM Diagnoses that have been ruled out: None Diagnoses that are still under consideration: None Final diagnoses: Bronchitis with chronic airway obstruction Medications administered for this visit: Medications - No data to display Medication List START taking these medications azithromycin 250 MG tablet Commonly known as: ZITHROMAX Take 1 tablet by mouth Daily. Take 2 tablets the first day, then 1 tablet daily for 4 days. benzonatate 200 MG capsule Commonly known as: TESSALON Take 1 capsule by mouth 3 (Three) Times a Day As Needed for cough. ASK your doctor about these medications aspirin 81 MG chewable tablet montelukast 10 MG tablet Commonly known as: SINGULAIR RESTORIL 15 MG capsule Generic drug: temazepam rOPINIRole 2 MG tablet Commonly known as: REQUIP Labs Reviewed - No data to display Imaging Results: No orders to display No Follow-up on file. Angel Remy MD 10/22/16 1526 documented in this encounter Plan of Treatment Not on file documented as of this encounter Visit Diagnoses Diagnosis Bronchitis with chronic airway obstruction- Primary Obstructive chronic bronchitis without exacerbation documented in this encounter Care Teams Adzing And Boring Machine Feeder Relationship Specialty Start Date End Date Shahid Garcia, PCT PCP - General 10/22/16 04/24/23 documented as of this encounter
--- OUTSIDE RECORDS SUMMARY | 2024-10-13 13:27 | XMS_ITS | Encounter Summary ---
Author Organization [facility] Address [address] [place] [address] Care Team Providers Care Coal Trimmer Machine Operator Name Role Phone Unavailable Primary Care Provider Unavailabl e Encounter Details Date Type Department Care Team (Late st Contact Info) Description 08/17/2010 Historical Mammograp hy Encounter [facility] [address] [place] [address] Interface, See Report Social History [...] Associated Diagnosis Comments MAMMO HISTORICAL RESULT Routine 08/17/2010 2:48 PM EDT documented in this encounter Results * MAMMO HISTORICAL RESULT (08/17/2010 2:48 PM EDT) Anatomical Region Laterality Modality Breast Mammography 08/17/2010 2:48 PM EDT Narrative 08/17/2010 5:05 PM EDT ?[facility] ? [address] ??[place], [place] [address] ? NAME: SUPRIYA SALGADO ? : ??[birth year] ??MR#: [id number] ? LOC: ?? CO ? AGE: 59Y ?? Pt type: CO ?Exam Date: 08/17/101453 ? SEX: F ?? AN#:[id number] ?Ck-in#: [id number] ? KARIME,NEDA Chris ? [address] ? [address] ? [place] ?[place] ?[address] ? Chk-in # ?? Order ?Exam ?[id number] ?? 0001 ? [id number] ??PB MAMM SCREEN BILAT DIG PNL ? Ord Diag: SCREENING ? HISTORY: ?? 59 year old female for routine screening mammogram. No personal or family history of breast cancer. ?? BILATERAL DIGITAL MAMMOGRAM: ?? FILM COMPARISON: ??The exam is compared to prior exams, most recently dated 08/05/08 on the left and bilaterally 09/23/07. ?? FINDINGS: ??The breast parenchymal pattern is a mixture of fat and moderately dense fibroglandular tissue. ??There is no mass, cluster of microcalcifications or architectural distortion to suggest malignancy. ?? IMPRESSION: ??No findings suspicious for malignancy. ?? RECOMMENDATION: ??Yearly mammography, yearly physical exam, monthly self breast exam. ?? Bi-Rads I, negative. ?? The standard false negative rate of mammography is between 10 and 25%. Complex patterns or increased breast density will markedly elevate the false negative rate of mammography. ?? ICAD was utilized. ?? A letter, in lay terminology, with the results of this exam will be mailed to the patient. ?/READ BY/ EDGAR VERMA ?/Released By/ EDGAR VERMA ?Released By Date/Time: ??08/17/101651 ?Distillery Miller Helper: ??JBW ? FINAL ? Page ??1 ? RADIOLOGY REPORT us See Report Interface IMG MAMMOGRAPHY ORDERABLES Final Result documented in this encounter Visit Diagnoses Not on filedocumented in this encounter
--- OUTSIDE RECORDS SUMMARY | 2024-10-13 13:27 | XMS_ITS | Encounter Summary ---
Author Organization [facility] Address [address] [place] [id number] Care Team Providers Care Deli Bakery Clerk Name Role Phone Michael Baez MD Primary Care Provider + [phone] Encounter Details Date Type Department Care Team (Late st Contact Info) Description 07/12/2021 Refill [facility] [address] [place] [address] Katarina Marquez, PharmD [facility] [address] [place] [address] Social History Tobacco Use Types Packs/Day Years [...] Description 03/30/2025 2:00 PM EDT Office Visit [facility] [place] [address], [address] [place] [address] Acacia Scott, INORGANIC CHEMIST [address] [place] [address] Scheduled Procedures Name Priority Associated Diagnoses Date/Ti me ARTHROPLASTY, HIP, TOTAL Arthritis of right hip documented as of this encounter Visit Diagnoses Not on filedocumented in this encounter Care Teams Deli Bakery Clerk Relationship Specialty Start Date End Date Michael Baez MD [address] [place] [address] PCP - General 04/08/21 documented as of this encounter
--- OUTSIDE RECORDS SUMMARY | 2024-10-13 13:27 | XMS_ITS | Clinical Summary ---
Author Organization [facility] Address [address] [place] [address] Care Team Providers Care Hardwood Floor Layer Name Role Phone Michael Baez MD Primary Care Provider [phone] Allergies Active Allergy Reactions Criticality Noted Date Comments Diphenhydramine 10/22/2016 Codeine Other (See Comments) 10/22/2016 Penicillins Hives,Shortness Of Breath High 6 Diazepam 10/22/2016 Medications temazepam (RESTORIL) 15 MG capsule Take 1 capsule by mouth At Night As Needed for Sleep. Active rOPINIRole (REQUIP) 2 MG tablet Take 1 tablet by mouth Every Night. Active montelukast (SINGULAIR) 10 MG tablet Take 1 tablet by mouth Every Night. Active aspirin 81 MG chewable tablet Chew 1 tablet Daily. Active Budeson-Glycopy rrol-Formoterol (Breztri Aerosphere) 160-9-4.8 MCG/ACT aerosol inhaler Every 12 (Twelve) Hours. Active Ventolin HFA 108 (90 Base) MCG/ACT inhaler Every 4 (Four) Hours. Active apixaban (ELIQUIS) 5 MG tablet tablet Every 12 (Twelve) Hours. Active Repatha SureClick solution auto-injector SureClick injection 03/19/2023 Active azelastine (ASTELIN) 0.1 % nasal spray 03/21/2023 Active famotidine (PEPCID) 20 MG tablet 04/26/2023 Active fluticasone (FLONASE) 50 MCG/ACT nasal spray 03/21/2023 Active escitalopram (LEXAPRO) 20 MG tablet Daily. Active furosemide (LASIX) 20 MG tablet 04/26/2023 Active Fluticasone-Ume clidin-Vilant (TRELEGY) 100-62.5-25 MCG/ACT inhaler Daily. Acti ve methocarbamol (ROBAXIN) 500 MG tablet 05/10/2023 Active rOPINIRole (REQUIP) 1 MG tablet 04/26/2023 Active cetirizine (zyrTEC) 10 MG tablet 04/26/2023 Active bisoprolol (ZEBeta) 5 MG tablet 04/27/2023 Active Sennosides (Senna) 8.6 MG capsule senna 187 mg tablet Every night at bedtime Active Active Problems No known active problems Family History Medical History Relation Name Comments Diabetes Mother Zoe Urena Osteoporosis Mother Zoe Urena Cancer Sister 1 Kait Reese Scoliosis Sister 2 Yodit Fuller Relation Name Status Comments Mother Zoe Urena Sister 1 Kait Reese Sister 2 Yodit Fuller Social History Tobacco Use Types Packs/Day Years Used Date Smoking Tobacco: Former Cigarettes 2 57.7 0 11/26/1964 - 07/27/2022 Tobacco Cessation:Counseling Given: Not Answered Alcohol Use Standard Drinks/Week Comments Never 0 (1 standard drink = 0.6 oz pur e alcohol) Abuse Screen Answer Date Recorded Unsafe at Home or Work/School Not on file Feels Threatened by Someone? Not on file 07/2023 Does Anyone Keep You from Co ntacting Others or Doint Things Outside the Home? Not on file 09/03/2023 Physical Sign of Abuse Present Not on file 1 Housing Stability Answer Date Recorded Current Living Arrangements Not on file 07/2023 Potentially Unsafe Housing Conditions Not on saba e 09/03/2023 Family and Community Support Answer Gibson e Recorded Help with Day-to-Day Activities Not on file 09/03/2023 Lonely or Isolated Not on file 09/03/2023 Employment Answer Date Recorded Do you want help finding or keeping work or a jayla b? Not on file 09/03/2023 Disabilities Answer Date Recorded Concentrating, Remembering, or Making Decisions Difficulty Not on file 09/03/2023 Doing Errands Independently Difficulty Not on fi le 09/03/2023 Education Answer Date Recorded Help with school or training? Not on file Preferred Language Not on file 09/03/2023 Comments Unknown Sex and Gender Information Value Date Recorded Sex Assigned at Not on file Legal Sex Female 12:01 PM EDT Gender Identity Not on file Sexual Orientation Not on file Last Filed Vital Signs Vital Sign Reading Time Taken Comments Blood Pressure 138/88 05/21/2023 2:03 PM EDT Pulse 76 11/17/2016 9:53 AM EST Temperature 36.8 ??C (98.3 ??F) 11/17/2016 9:53 AM ES T Respiratory Rate 20 11/17/2016 9:53 AM EST Oxygen Saturation 96% 11/17/2016 9:53 AM EST Inhaled Oxygen Concentration - - Weight 86.3 kg (190 lb 3.2 oz) 05/21/2023 2:03 P M EDT Height 158.1 cm (5' 2.25 ) 05/21/2023 2:03 PM ED T Body Mass Index 34.51 05/21/2023 2:03 PM EDT Plan of Treatment Health Maintenance Due Date Last Done Comments COLOGUARD 1950 COLON CANCER SCREENING 5 YEA R SIGMOIDOSCOPY 1951 COLONOSCOPY 1951 COLORECTAL CANCER SCREENING [address] CT COLONOGRAPHY 1951 DXA SCAN 1951 FECAL OCCULT BLOOD TEST 1951 FIT Testing (1 year) 1951 MAMMOGRAM 1951 Pneumococcal Vaccine 65+ (1 of 2 - PCV) 1957 TDAP/TD VACCINES (1 - Tdap) 1970 ZOSTER VACCINE (1 of 2) 2001 ANNUAL WELLNESS VISIT 08/13/2017 HEPATITIS C SCREENING 08/13/2017 INFLUENZA VACCINE 06/26/2024 12/11/2019, , 08/22/2018, Additional history exists COVID-19 Vaccine (1 - 2023-2 5 season) 2024 LUNG CANCER SCREENING Discontinued 08/07/2022 Insurance MEDICARE A & B Member Subscriber Plan / Payer (Ef fective 2004-Present) Name:Supriya Andres Member ID:[id number] Relation to Subscriber:Self Name:Supriya Andres Subscriber ID:[id number] Payer ID:[id number] Group ID:Not on file Type:Not on file Address: [address] MEDICARE REPLACEMENT Care Teams Hardwood Floor Layer Relationship Specialty Start Date End Date Michael Baez MD [address] [place] [address] PCP - General Adolescent Medicine 04/25/23
--- OUTSIDE RECORDS SUMMARY | 2024-10-13 13:27 | XMS_ITS | Encounter Summary ---
Author Organization [facility] Address [address] [place] [address] Care Team Providers Care Equipment Monitor Phototypesetting Name Role Phone Unavailable Primary Care Provider Unavailabl e Encounter Details Date Type Department Care Team (Late st Contact Info) Description 09/23/2007 Historical Mammograp hy Encounter [facility] [address] [place] [address] Interface, See Report Social History [...] Associated Diagnosis Comments MAMMO HISTORICAL RESULT Routine 09/23/2007 11:03 AM EDT documented in this encounter Results * MAMMO HISTORICAL RESULT (09/23/2007 11:03 AM EDT) Anatomical Region Laterality Modality Breast Mammography 09/23/2007 11:0 3 AM EDT Narrative 09/23/2007 5:12 PM EDT ?[facility] ? [address] ??[place], [place] [address] ? NAME: SUPRIYA SALGADO ? : ??[birth year] ??MR#: [id number] ? LOC: ?? CO ? AGE: 56Y ?? Pt type: CO ?Exam Date: 09/23/07 1104 ? SEX: F ?? AN#:[id number] ?Ck-in#: [id number] ? [facility] ? [address] ? [address] ? [place] ?[place] ?[address] ? Chk-in # ?? Order ?Exam ?[id number] ?? 0001 ? [id number] ??BC MAMM SCREENING BILAT DIGIT PNL ? Ord Diag: SCREENING ? BILATERAL SCREENING DIGITAL MAMMOGRAM: ?? HISTORY: ??The patient is a 56-year-old female for annual screening digital mammography with no report of breast complaints. ??No personal or family history of breast cancer is given. ??The patient returns for one- year follow-up exam of bilateral microcalcifications. ?? TECHNIQUE: ??CC and MLO digital views of both breasts were performed. ?? COMPARISON USED: ??09/21/06. ?? FINDINGS: ??There are scattered fibroglandular densities bilaterally. ?? No spiculated mass or suspicious cluster of microcalcifications is seen. Again noted are the punctate calcifications subareolar right breast. There appears to be a mild increase in the number of calcifications subareolar left breast. ??Predominantly, I believe the change is an increase in size which is a benign change as opposed to an increase in number. ??These are still very homogeneous in size, shape and density. They do not appear to be associated with a mass. ??Left six month follow- up mammogram is recommended. ??If there is any further increase in the number of calcifications at that time, biopsy would be necessary. ?? IMPRESSION: ?? 1. ??Stable calcifications in the right breast for one-year; recommend one-year follow-up right mammogram. 2. ??Mildly increased calcifications 6:30 left breast compared to February 2007; recommend left six month follow-up mammogram. ? FINAL ?CONTINUED ?Page ??1 ? RADIOLOGY REPORT ?[facility] ? [address] ??[place], [place] [address] ? NAME: SUPRIYA SALGADO ? : ??[birth year] ??MR#: [id number] ? LOC: ?? CO ? AGE: 56Y ?? Pt type: CO ?Exam Date: 09/23/07 1104 ? SEX: F ?? AN#:[id number] ?Ck-in#: [id number] ? SHIVAM,MITUL George ? [address] ? [address] ? [place] ?[place] ?[address] ? Checkin-Exam Code Summary ? [id number] ?? Bi-Rads Category III, probably benign. ?? ICAD was utilized. ?? A copy of this report in lay terminology has been sent to the patient. ?/READ BY/ JANES L ATKINS ?/Released By/ JANES L ATKINS ?Released By Date/Time: ??09/23/07 1704 ?Space Operations Officer: ??MJP ? FINAL ? Page ??2 ? RADIOLOGY REPORT us See Report Interface IMG MAMMOGRAPHY ORDERABLES Final Result documented in this encounter Visit Diagnoses Not on filedocumented in this encounter
--- OUTSIDE RECORDS SUMMARY | 2024-10-13 13:27 | XMS_ITS | Encounter Summary ---
Author Organization [facility] Address [address] [place] [address] Care Team Providers Care Concrete Journeyman Name Role Phone Unavailable Primary Care Provider Unavailabl e Encounter Details Date Type Department Care Team (Late st Contact Info) Description 04/19/2015 10:02 AM EDT - 04/19/2015 11:59 PM EDT Hospital Encounter [facility] [address] [place] [address] Angel Remy MD Social History Tobacco Use Types Packs/Day Years [...] Name Priority Date/Time Associated Diagnosis Comments XR CHEST PA AND LATERAL Routine 04/19/2015 10:06 AM EDT documented in this encounter Results * X-RAY CHEST PA AND LATERAL (04/19/2015 10:06 AM EDT) Anatomical Region Laterality Modality Body, Chest N/A Radiographic Debra ging 04/19/2015 10:0 6 AM EDT Narrative 04/19/2015 10:52 AM EDT EXAMINATION: CHEST PA AND LATERAL- INDICATION: Cough FINDINGS: 1. Minimal increased interstitial markings are noted. Previous median sternotomy has been performed. The heart size is normal. The heart is compensated. 2. There is no active disease, edema or free fluid in the chest. ? IMPRESSION- 1. Compared to previous examinations of 12/10/2013, there has been no change. There is mild stable scarring in the chest. 2. There is no evidence of edema, free fluid or active disease. E: 04/19/2015 ? Reading Carey HULL ? Releasing Carey HULL ? Released Date Time- 04/19/15 1158 ? Collar Baster- J.B.W. Procedure Note Phi Hester MD - 08/17/2015 EXAMINATION: CHEST PA AND LATERAL- INDICATION: Cough FINDINGS: 1. Minimal increased interstitial markings are noted. Previous median sternotomy has been performed. The heart size is normal. The heart is compensated. 2. There is no active disease, edema or free fluid in the chest. IMPRESSION- 1. Compared to previous examinations of 12/10/2013, there has been no change. There is mild stable scarring in the chest. 2. There is no evidence of edema, free fluid or active disease. E: 04/19/2015 Reading Carey HULL Releasing Carey HULL Released Date Time- 04/19/15 1155 Gus [place] Result [facility] Angel Remy MD Margie DIAGNOSTIC IMAGING ORDERABLES Final Result documented in this encounter Visit Diagnoses Not on filedocumented in this encounter
--- OUTSIDE RECORDS SUMMARY | 2024-10-13 13:27 | XMS_ITS | Encounter Summary ---
Author Organization [facility] Address [address] [id number] Care Team Providers Care Rolling Mill Plugger Name Role Phone Michael Baez MD Primary Care Provider + [phone] Encounter Details Date Type Department Care Team (Late st Contact Info) Description 07/11/2021 Refill [facility] [address] [place] [address] Katarina Marquez, PharmD [facility] [address] [place] [address] Social History Tobacco Use Types [...] Office Visit [facility] [place] [address], [address] [place] [address] Acacia Scott, PRODUCTION PLANNING MANAGER [address] [place] [address] Scheduled Procedures Name Priority Associated Diagnoses Date/Ti me ARTHROPLASTY, HIP, TOTAL Arthritis of right hip documented as of this encounter Visit Diagnoses Not on filedocumented in this encounter Care Teams Rolling Mill Plugger Relationship Specialty Start Date End Date Michael Baez MD [address] [place] [address] PCP - General 04/08/21 documented as of this encounter
--- OUTSIDE RECORDS SUMMARY | 2024-10-13 13:27 | XMS_ITS | Encounter Summary ---
[facility] Address [address] [place] [address] Care Team Providers Care Sales Enablement Lead Name Role Phone Michael Baez MD Primary Care Provider + [phone] Reason for Visit * Reason Comments Pain * Consultation (Routine) - Closed Specialty Diagnoses / Procedures Referred By Contac t Referred To Contact Orthopedic Surgery Diagnoses POSSIBLE RIGHT HIP REPLACEMENT Brianna Conroy DO Kirk, Michael E, MD [address] [place] [address] Phone: tel: fax: Referral ID Status Reason Start Date Expiration Date Visits Re quested Visits Authorized [id number] Closed 04/25/2023 04/24/2024 1 1 Encounter Details Date Type Department Care Team (Late st Contact Info) Description 05/21/2023 2:10 PM EDT Office Visit [facility] [address] [place] [address] Antwan Lopez MD [address] [place] [address] Primary osteoarthritis of both hips (Primary Dx) Social History Tobacco Use Types Packs/Day Years Used Date Smoking Tobacco: Former Cigarettes 2 57.7 0 11/26/1964 - 07/27/2022 Tobacco Cessation:Counseling Given: Not Answered Alcohol Use Standard Drinks/Week Comments Never 0 (1 standard drink = 0.6 oz pur e alcohol) Comments Unknown Sex and Gender Information Value Date Recorded Sex Assigned at Not on file Legal Sex Female 12:01 PM EDT Gender Identity Not on file Sexual Orientation Not on file documented as of this encounter Last Filed Vital Signs Vital Sign Reading Time Taken Comments Blood Pressure 138/88 05/21/2023 2:03 PM EDT Pulse - - Temperature - - Respiratory Rate - - Oxygen Saturation - - Inhaled Oxygen Concentration - - Weight 86.3 kg (190 lb 3.2 oz) 05/21/2023 2:03 P M EDT Height 158.1 cm (5' 2.25 ) 05/21/2023 2:03 PM ED T Body Mass Index 34.51 05/21/2023 2:03 PM EDT documented in this encounter Progress Notes * Antwan Lopez MD - 05/21/2023 2:10 PM EDT Images from the original note were not included. [facility] [place] Orthopaedic [place] Clinic Note Subjective Chief Complaint Patient presents with ??? Right Hip - Pain HPI Supriya Andres is a 72 y.o. female who presents with new problem of: right hip pain. Onset: atraumatic and gradual in nature. The issue has been ongoing for 5 month(s). Pain is a 8/10 on the pain scale. Pain is described as aching, throbbing, and shooting. Associated symptoms include stiffness, giving way/buckling, and same as prior visit. The pain is worse with walking, standing, sitting, climbing stairs, sleeping, leisure, and rising from seated position; nothing improve the pain. Previoustreatments have included: cane/walker and NSAIDS. Patient has significant medical issues to includechronic obstructive pulmonary disease and cardiac issues. She had a right hip injection about a carmella h ago without significant relief. She has had at least 2 or 3 injections in both hips in the past. Her right hip bothers her more than the left. I have reviewed the following portions of the patient's history and agree with: History of Present Illness and Review of Systems There is no problem list on file for this patient. Past Medical History: Diagnosis Date ??? Arthritis of back 12/16/2019 ??? Cervical disc disorder ??? Fracture, clavicle ??? Fracture, radius ??? Hip arthrosis ??? Hypertension ??? Low back strain ??? Lumbosacral disc disease ??? Myocardial infarction ??? Scoliosis Past Surgical History: Procedure Laterality Date ??? COLON SURGERY ??? KNEE SURGERY Family History Problem Relation Age of Onset ??? Diabetes Mother ??? Osteoporosis Mother ??? Cancer Sister ??? Scoliosis Sister Social History Socioeconomic History ??? Marital status: Tobacco Use ??? Smoking status: Former Packs/day: 2.00 Years: 50.00 Pack years: 100.00 Types: Cigarettes Start date: 11/26/1964 Quit date: 07/27/2022 Years since quittin.8 Substance and Sexual Activity ??? Alcohol use: Never ??? Drug use: Never ??? Sexual activity: Not Currently Partners: Male control/protection: None, Tubal ligation, Hysterectomy Current Outpatient Medications on File Prior to Visit Medication Sig Dispense Refill ??? apixaban (ELIQUIS) 5 MG tablet tablet Every 12 (Twelve) Hours. ??? aspirin 81 MG chewable tablet Chew 1 tablet Daily. ??? azelastine (ASTELIN) 0.1 % nasal spray ??? bisoprolol (ZEBeta) 5 MG tablet ??? Ijlpmcq-Dtwwsrvhgrj-Nsepcudjiz (Breztri Aerosphere) 160-9-4.8 MCG/ACT aerosol inhaler Every 12 (Twelve) Hours. ??? cetirizine (zyrTEC) 10 MG tablet ??? escitalopram (LEXAPRO) 20 MG tablet Daily. ??? famotidine (PEPCID) 20 MG tablet ??? fluticasone (FLONASE) 50 MCG/ACT nasal spray ??? Xurwvoaxeqa-Hiezakugd-Ffabme (TRELEGY) 100-62.5-25 MCG/ACT inhaler Daily. ??? furosemide (LASIX) 20 MG tablet ??? methocarbamol (ROBAXIN) 500 MG tablet ??? montelukast (SINGULAIR) 10 MG tablet Take 1 tablet by mouth Every Night. ??? Repatha SureClick solution auto-injector SureClick injection ??? rOPINIRole (REQUIP) 1 MG tablet ??? rOPINIRole (REQUIP) 2 MG tablet Take 1 tablet by mouth Every Night. ??? Sennosides (Senna) 8.6 MG capsule senna 187 mg tablet Every night at bedtime ??? temazepam (RESTORIL) 15 MG capsule Take 1 capsule by mouth At Night As Needed for Sleep. ??? Ventolin HFA 108 (90 Base) MCG/ACT inhaler Every 4 (Four) Hours. No current facility-administered medications on file prior to visit. Allergies Allergen Reactions ??? Penicillins Hives and Shortness Of Breath ??? Benadryl [Diphenhydramine] ??? Codeine Other (See Comments) ??? Valium [Diazepam] Review of Systems Constitutional: Negative for activity change, appetite change, chills, diaphoresis, fatigue, fever and unexpected weight change. HENT: Negative for congestion, dental problem, drooling, ear discharge, ear pain, facial swelling, hearing loss, mouth sores, nosebleeds, postnasal drip, rhinorrhea, sinus pressure, sneezing, sore throat, tinnitus, trouble swallowing and voice change. Eyes: Negative for photophobia, pain, discharge, redness, itching and visual disturbance. Respiratory: Negative for apnea, cough, choking, chest tightness, shortness of breath, wheezing andstridor. Cardiovascular: Negative for chest pain, palpitations and leg swelling. Gastrointestinal: Negative for abdominal distention, abdominal pain, anal bleeding, blood in stool,constipation, diarrhea, nausea, rectal pain and vomiting. Endocrine: Negative for cold intolerance, heat intolerance, polydipsia, polyphagia and polyuria. Genitourinary: Negative for decreased urine volume, difficulty urinating, dysuria, enuresis, flank pain, frequency, genital sores, hematuria and urgency. Musculoskeletal: Positive for arthralgias. Negative for back pain, gait problem, joint swelling, myalgias, neck pain and neck stiffness. Skin: Negative for color change, pallor, rash and wound. Allergic/Immunologic: Negative for environmental allergies, food allergies and immunocompromised state. Neurological: Negative for dizziness, tremors, seizures, syncope, facial asymmetry, speech difficulty, weakness, light-headedness, numbness and headaches. Hematological: Negative for adenopathy. Does not bruise/bleed easily. Psychiatric/Behavioral: Negative for agitation, behavioral problems, confusion, decreased concentration, dysphoric mood, hallucinations, self-injury, sleep disturbance and suicidal ideas. The patientis not nervous/anxious and is not hyperactive. Objective Physical Exam BP 138/88 Ht 158.1 cm (62.25 ) Wt 86.3 kg (190 lb 3.2 oz) BMI 34.51 kg/m?? Body mass index is 34.51 kg/m??. General: Mental Status: Alert Appearance: Cooperative, in no acute distress Build and Nutrition: Overweight by BMI female Orientation: Alert and oriented to person, place and time Posture: Normal Gait: Antalgic with a cane Integument: Right hip: No skin lesions, no rash, no ecchymosis Left hip: No skin lesions, no rash, no ecchymosis Neurologic: Sensation: Right foot: Intact to light touch on the dorsal and plantar aspect Left foot: Intact to light touch on the dorsal and plantar aspect Motor: Right lower extremity: 5/5 quadriceps, hamstrings, ankle dorsiflexors, and ankle plantar flexors Left lower extremity: 5/5 quadriceps, hamstrings, ankle dorsiflexors, and ankle plantar flexors Vascular: Right lower extremity: 2+ dorsalis pedis pulse, prompt capillary refill Left lower extremity: 2+ dorsalis pedis pulse, prompt capillary refill Lower Extremities: Right Hip: Tenderness: None Swelling: None Crepitus: None Atrophy: None Range of motion: External Rotation: 20??, with pain Internal Rotation: 20??, with pain Flexion: 90?? Extension: 0?? Instability: None Deformities: None [facility]: [facility] No leg length discrepancy Left Hip: Tenderness: None Swelling: None Crepitus: None Atrophy: None Range of motion: External Rotation: 20??, with pain Internal Rotation: 20??, with pain Flexion: 90?? Extension: 0?? Instability: None Deformities: None Functional testing: [facility] No leg length discrepancy Imaging/Studies Right Hip Radiographs Indication: right hip pain Views: low AP pelvis and lateral of the right hip ?? Comparison: no prior studies available for review ?? Findings: Arthritic changes, with osteophytes at head neck junction, sclerosis in the femoral head, diffuse osteopenia, no acute bony abnormalities. ?? Left Hip Radiographs Indication: left hip pain Views: low AP pelvis and lateral of the left hip ?? Comparison: no prior studies available for review ?? Findings: Arthritic changes, with osteophytes at the head neck junction, oqhw-jt-hztw contact, acetabular osteophytes, sclerosis in the femoral head, diffuse osteopenia. No acute bony abnormalities. Assessment and Plan Diagnoses and all orders for this visit: 1. Primary osteoarthritis of both hips (Primary) - XR Hips Bilateral With or Without Pelvis 3-4 View; Future 1. Primary osteoarthritis of both hips I reviewed my findings with the patient. She has advanced bilateral hip arthritis, with previous intra-articular hip injections. Last injection in her right hip did not provide significant relief. I do have concerns about her overall medical status, and her ability to withstand total hip arthroplasty surgery as well as the rehabilitation. 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 I will see her back if she is interested in surgery and cleared medically. Return for if she is cleared for sugical intervention from her heart and lung standpoint. Antwan Lopez MD 05/22/23 10:14 EDT documented in this encounter Plan of Treatment Not on file documented as of this encounter Results * XR Hips Bilateral With or Without Pelvis 3-4 View (05/21/2023 2:26 PM EDT) Anatomical Region Laterality Modality Lower Extremities, Hip Bilateral Xray Narrative 05/21/2023 2:44 PM EDT Right Hip Radiographs Indication: right hip pain Views: low AP pelvis and lateral of the right hip Comparison: no prior studies available for review Findings: Arthritic changes, with osteophytes at head neck junction, sclerosis in the femoral head, diffuse osteopenia, no acute bony abnormalities. Left Hip Radiographs Indication: left hip pain Views: low AP pelvis and lateral of the left hip Comparison: no prior studies available for review Findings: Arthritic changes, with osteophytes at the head neck junction, egdd-xj-awia contact, acetabular osteophytes, sclerosis in the femoral head, diffuse osteopenia. ??No acute bony abnormalities. Antwan Lopez MD IMG DIAGNOSTIC IMAGING ORDERAB LES Final Result documented in this encounter Visit Diagnoses Diagnosis Primary osteoarthritis of both hips- Primary documented in this encounter Care Teams Sales Enablement Lead Relationship Specialty Start Date End Date Michael Baez MD [address] [facility] [address] [facility] [address] [place] [address] PCP - General Adolescent Medicine 04/25/23 documented as of this encounter
--- OUTSIDE RECORDS SUMMARY | 2024-10-13 13:27 | XMS_ITS | Encounter Summary ---
Author Organization Healthcare Address [address] [id number] Care Team Providers Care Certified Ophthalmic Surgical Assistant Name Role Phone Michael Baez MD Primary Care Provider [phone] Encounter Details Date Type Department Care Team (Late st Contact Info) Description 08/18/2021 3:00 PM EDT Office Visit [facility] [place] [address] [facility], [address] [place] [address] Acacia Scott, DEPUTY CITY CLERK [address] [place] [address] Mixed hyperlipidemia (Primary Dx); Primary hypertension; ASCVD (arteriosclerotic cardiovascular disease); Paroxysmal atrial fibrillation (CMS/HCC) Social History Tobacco [...] have Coronavirus / COVID-19? No / Unsure 08/18/2021 2:47 PM EDT documented as of this encounter Last Filed Vital Signs Vital Sign Reading Time Taken Comments Blood Pressure 130/98 08/18/2021 3:03 PM EDT Pulse 65 08/18/2021 3:03 PM EDT Temperature - - Respiratory Rate - - Oxygen Saturation 96% 08/18/2021 3:03 PM EDT Inhaled Oxygen Concentration - - Weight 82.9 kg (182 lb 12.2 oz) 08/18/2021 3:03 PM EDT Height - - Body Mass Index 31.37 06/24/2020 10:09 AM EDT documented in this encounter Miscellaneous Notes * Progress Notes - Acacia Scott NP - 08/18/2021 3:00 PM EDT Images from the original note were not included. Supriya Andres is a 70 y.o. female with CAD s/p CABG, stent to LAD with AMY in May 2019 and as recent as 04/30/2020 she was found to have ISRS of the distal portion of the mid LAD with a mildly reduced EF of 45-50% (both done by Dr. Abdalla at [facility]). She also has a h/o AF, CORNELIA, HTN,and hyperlipidemia. She has been followed by Dr. Mar for the AF and underwent PVI on 2018. ?? She has not been seen since May 2020 after her cardiac cath that was done on 04/30/2020. She has been doing well without any chest pain, shortness of breath, orthopnea, palpitations, dizziness, syncope, fatigue or edema. She came in due to needing medications but it was not clear that she knew what she was taking so we have confirmed with pharmacy during her visit today. She walks 45 minutes everyday and in addition gets on her treadmill for 30 minutes every other day. Cardiac Catherization 04/30/2020 -Left Main artery normal [...] provides no antegrade flow to the LAD. ?? 06/09/2020 Lipid panel Chol 103, LDL <30, Trig 154, HDL 76. . Review of symptoms Constitutional: Negative for decreased [...] ??? BILIARY DRAINAGE N/A Atrial Cardioversion from [facility] ??? CATH STENT PLACEMENT/ CATH PLACEMENT OF STENT N/A Cath Stent Placement from [facility] ??? COLON SURGERY N/A Colon Surgery from [facility] ??? CORONARY ARTERY BYPASS GRAFT N/A CABG from [facility] ??? HYSTERECTOMY N/A Hysterectomy from [facility] ??? TOTAL KNEE ARTHROPLASTY N/A Knee Replacement from [facility] Family History family history includes Coronary artery disease in her father and mother. Social History reports that she has quit smoking. She does not have any smokeless tobacco history on file. No history on file for alcohol use and drug use. Medications Current Outpatient Medications Medication Sig Dispense Refill ??? Eliquis 5 MG tablet Take 1 tablet (5 mg total) by mouth 2 (two) times a day. 60 tablet 0 ??? Evolocumab (Repatha SureClick) 140 MG/ML solution auto-injector Inject 140mg (1 pen) sub-q every 2 weeks 2 mL 0 No current facility-administered medications for this visit. Physical Exam Constitutional: Appearance: Normal appearance. obese Cardiovascular: Rate and Rhythm: Normal rate and regular rhythm. Heart sounds: Normal heart sounds. Pulmonary: Effort: Pulmonary effort is normal. Breath sounds: Normal breath sounds. Abdominal: General: Abdomen is flat. Palpations: Abdomen is soft. Skin: General: Skin is warm and dry. Neurological: General: No focal deficit present. Mental Status: She is alert and oriented to person, place, and time. Psychiatric: Mood and Affect: Mood normal. Behavior: Behavior normal. Visit Vitals BP (!) 130/98 Pulse 65 Wt 82.9 kg (182 lb 12.2 oz) SpO2 96% BMI 31.37 kg/m?? Cardiac Testing Imaging No echocardiogram results found for the past 12 months Labs Lab Results Component Value Date HGB 11.6 10/30/2019 HCT 35.8 10/30/2019 PLT 339 10/30/2019 NA 142 10/30/2019 K 3.8 10/30/2019 CREATININE 0.85 10/30/2019 BUN 12 10/30/2019 CO2 27 10/30/2019 INR 1.2 (H) 10/30/2019 Assessment and Plan 1. CAD -Recent ISRS of LAD -AMY placed to mid LAD -Continue Aspirin BB and repatha. No longer needs Plavix. -Asymptomatic and stable ?? 2. PAF -Continue f/u with EP -Rate controlled with BB -Anticoagulated with Eliquis for CHADS-VASC score of 3 ?? 3. Hyperlipidemia -Pt will get Lipid panel. She is currently on Repatha only-previous notes had her on statin with Repatha so will see where she is at. ?? 4. HTN -BP elevated today. Has not been on medications regularly. Monitor at home and will re-assess at f/u ?? F/u in 2 weeks with labs. Reconciled medications and she will bring pill bottles next visit. ?? A total time of 40 minutes was spent addressing the current illness, reviewing records (prior imaging, lab work, etc), and formulating a plan. The patient is agreeable to the plan and all pertinent questions were answered. Acacia Scott NP documented in this encounter Plan of Treatment Upcoming Encounters Date Type Department Care Team (Late st Contact Info) Description 03/30/2025 2:00 PM EDT Office Visit [facility] [place] [address] [facility], [address] [place] [address] Acacia Scott, DEPUTY CITY CLERK [address] [place] [address] Scheduled Orders Name Type Priority Associated Diagnoses Orde r Schedule Comprehensive Metabolic Panel, Plasma Lab Routine Mixed hyperlipidemia Ordered: 08/18/2021 Scheduled Procedures Name Priority Associated Diagnoses Date/Ti me ARTHROPLASTY, HIP, TOTAL Arthritis of right hip documented as of this encounter Visit Diagnoses Diagnosis Mixed hyperlipidemia- Primary Primary hypertension Unspecified essential hypertension ASCVD (arteriosclerotic cardiovascular disease) Unspecified cardiovascular disease Paroxysmal atrial fibrillation (CMS/HCC) Atrial fibrillation documented in this encounter Care Teams Certified Ophthalmic Surgical Assistant Relationship Specialty Start Date End Date Michael Baez MD [address] [place] [address] [place] [address] PCP - General 04/08/21 documented as of this encounter
--- OUTSIDE RECORDS SUMMARY | 2024-10-13 13:27 | XMS_ITS | Encounter Summary ---
Author Organization [email or web address] [facility] [employer] Address [address] [place] [address] Care Team Providers Care Manager Transmission Name Role Phone Unavailable Primary Care Provider Unavailabl e Encounter Details Date Type Department Care Team (Late st Contact Info) Description 07/07/2019 Transcribed Document [facility] Family Medicine [address] [place] [address] ProviderCarlitos MD [address] [place], [place] [id number] Social History Tobacco Use Types Packs/Day Years Used Date Smoking Tobacco: Never Assessed Comments Unknown Sex and Gender Information Value Date Recorded Sex Assigned at Not on file Legal Sex Female 4:37 PM CDT Gender Identity Not on file Sexual Orientation Not on file documented as of this encounter Miscellaneous Notes * Cerner Conversion Note - Carlitos Catalan MD - 07/07/2019 1:32 PM CDT DATE OF SERVICE: 07/07/2019 SLEEP MEDICINE FOLLOWUP HISTORY OF PRESENT ILLNESS: Ms. Andres was seen in followup last here on May 06, 2019. She has mild sleep apnea, but has had difficulty tolerating her CPAP, which is a DreamWear nasal pillow. She reports that she opens her mouth in her sleep and is uncomfortable with that and has not actually used it since March. When she did use it, she averaged about 3 hours and 14 minutes per night and it did seem to control respiratory disturbances, which averaged 1.9 per hour. She is using auto CPAP with a pressure range of 6-12 cm. She also has restless legs syndrome for which she has been using ropinirole at 2 mg nightly and is benefitting from this. She also reports significant initial insomnia and has been using temazepam at 15 mg nightly for this for a long time. We had a long discussion regarding the use of temazepam when she is not using CPAP. She reports no sleepiness and scores 0/24 in the [place]hton Sleepiness Scale. She does have very mild sleep apnea and her respiratory disturbance index was 6.9 per hour on her sleep study. However, she does have atrial fibrillation and since last seen, actually had a myocardial infarction requiring two stents. She also has COPD, but is not smoking. She has hypertension and mild obesity. REVIEW OF SYSTEMS: Positive for chest pain, irregular heart beats, shortness of breath, depression, anxiety, and headaches, but otherwise negative. SOCIAL HISTORY: She does not smoke or drink alcoholic beverages. She has two caffeinated drinks a day. MEDICATIONS: 1. Temazepam 15 mg nightly. She has been on this for 30 years by her report. 2. She also takes aspirin, hydrochlorothiazide, ropinirole, Eliquis, Trelegy inhaler, metoprolol, Plavix, Lexapro, atorvastatin, Pepcid, oxycodone, dextromethorphan, promethazine, and sotalol. PHYSICAL EXAMINATION: GENERAL: Ms. Andres is a pleasant woman who is in no distress. VITAL SIGNS: Weight is down 4 pounds to 185 pounds with a body mass index of 31. Blood pressure 128/70, pulse 68, respirations 18. We could not get an oxygen saturation today. HEAD AND NECK: Exam shows slight nasal obstruction bilaterally with normal-appearing nasal mucosa. The oral exam showed a normal tongue, soft palate, and uvula with Mallampati class I appearance. SKIN: The skin around the nose and mouth was intact. HEART: The heart was slow, but regular without murmur, rub, or gallop. MENTAL STATUS: She was awake, alert, and cooperative. NEUROLOGIC: She had a slight vocal and head tremor. ASSESSMENT: 1. Mild obstructive sleep apnea syndrome. Treating this is still important because of her cardiac problems including atrial fibrillation and history of recent myocardial infarction. She is willing to resume use of CPAP. She was ordered a full-face mask, but did not receive this, and we will try to get it again, but in the meantime, I have encouraged her to use CPAP with her nasal pillow as much as possible, and we will add a chin strap to reduce air leak from the mouth. 2. Restless legs syndrome, stable, using ropinirole at 2 mg nightly. 3. Insomnia. She is chronically dependent on temazepam. 4. Atrial fibrillation, currently in a regular rhythm. 5. Coronary artery disease status post myocardial infarction with two stents. 6. Chronic obstructive pulmonary disease. 7. Obesity. 8. Hypertension. RECOMMENDATIONS: 1. We will again try a full face mask and she is encouraged to resume using CPAP on a nightly basis. 2. Continue with ropinirole at 2 mg nightly. I have written a prescription for this. 3. For the time being, continue with temazepam at 15 mg nightly. If she is unable to tolerate CPAP and wants to quit using it, we may need to switch from this to another sedative such as doxepin, which is less likely to cause respiratory depression. We will plan to follow up in about three months. Rafael Virk M.D. Dict: 07/07/2019 13:32:40 Trans: 07/07/2019 22:01:19 CC1: Rafael Virk M.D. CC2: Dr. Kalpana Mcguire documented in this encounter Plan of Treatment Not on file documented as of this encounter Visit Diagnoses Not on filedocumented in this encounter
--- OUTSIDE RECORDS SUMMARY | 2024-10-13 13:27 | XMS_ITS | Encounter Summary ---
Author Organization [facility] Address [address] [id number] Care Team Providers Care Utility Worker Name Role Phone Michael Baez MD Primary Care Provider + [phone] Encounter Details Date Type Department Care Team (Late Contact Info) Description 08/03/2021 Refill [facility] [place] [address] [facility], [address] [place] [address] Acacia Scott, TRACK PATROL [address] [place] [address] Social History Tobacco Use Types [...] Description 03/30/2025 2:00 PM EDT Office Visit [facility] [place] [address] [facility], [address] [place] [address] Acacia Scott TRACK PATROL [address] [place] [address] Scheduled Procedures Name Priority Associated Diagnoses Date/Ti me ARTHROPLASTY, HIP, TOTAL Arthritis of right hip documented as of this encounter Visit Diagnoses Not on filedocumented in this encounter Care Teams Utility Worker Relationship Specialty Start Date End Date Michael Baez MD [address] [place], [place] [address] PCP - General 04/08/21 documented as of this encounter
--- OUTSIDE RECORDS SUMMARY | 2024-10-13 13:27 | XMS_ITS | Clinical Summary ---
Author Organization [facility] [place] Address [address] [address] Phone Care Team Providers Care Clinical Data Management Manager Name Role Phone Unavailable Primary Care Provider [...] Afib 02/13/2019 Chronic obstructive lung disease 09/11/2017 Surgical History Surgery Date Site/Laterality Comments CARDIOVERSION 01/24/2019 AF Medical History Medical History Date Comments Afib (HCC) 02/13/2019 Social History Tobacco Use Types Packs/Day Years Used Date Smoking Tobacco: Former Cigarettes 2 52 1 965 - 2017 Smokeless Tobacco: Never Tobacco Cessation:Counseling Given: No Comments Unknown Sex and Gender Information Value Date Recorded Sex Assigned at Not on file Legal Sex Female 3:14 PM EDT Gender Identity Not on file Sexual Orientation Not on file Obstetrics History Last Filed Vital Signs Vital Sign Reading [...] 02/18/2019 2:30 PM EDT Plan of Treatment Health Maintenance Due Date Last Done Comments Wellness Exam Medicare 1953 Pneumococcal Vaccine 65+ (1 of 2 - PCV) 1957 Hepatitis C Screening 1969 DTaP/TDaP/Td (1 - Tdap) 1970 Breast Cancer Screening 1991 Cologuard 1996 Colon Cancer Screening 1996 Colonoscopy 1996 FIT 1996 Sigmoidoscopy 1996 Virtual Colonography 1996 Zoster (1 of 2) 2001 RSV or 60+ (1 - Ris k 60-74 years 1-dose series) 2011 Bone Density Screening 2016 COVID-19 Vaccine (1 - 2023-2 5 season) 2024 Influenza Vaccine (#1) 2024 08/22/2018 Hepatitis B Vaccine Aged Out No longe r eligible based on patient's age to complete this topic Insurance [facility] [place] [address] MEDICARE [place] PART A AND B
--- OUTSIDE RECORDS SUMMARY | 2024-10-13 13:27 | XMS_ITS | Encounter Summary ---
Author Organization [facility] Address [address] [place] [address] Care Team Providers Care Assembly Person Name Role Phone Shahid Garcia PCT Primary Care Provider Unava ilable Reason for Visit * Reason Comments Cough onset 2 weeks. Just finished a zpak today. Nasal Congestion Encounter Details Date Type Department Care Team (Latest Contact Info) Description 11/17/2016 9:51 AM EST - 11/17/2016 10:31 AM EST Hospital Encounter [facility] [address] [place] [id number] Rubi Casiano PA-C Acute URI (Primary Dx) Discharge Disposition: Home or Self [...] Sign Reading Time Taken Comments Blood Pressure 140/95 11/17/2016 9:53 AM EST Pulse 76 11/17/2016 9:53 AM EST Temperature 36.8 ??C (98.3 ??F) 11/17/2016 9:53 AM ES T Respiratory Rate 20 11/17/2016 9:53 AM EST Oxygen Saturation 96% 11/17/2016 9:53 AM EST Inhaled Oxygen Concentration - - Weight - - Height - - Body Mass Index - - documented in this encounter Medications at Time [...] as of this encounter ED Notes * Rubi Casiano PA-C - 11/17/2016 10:02 AM EST Chief Complaint Patient presents with ??? Cough onset 2 weeks. Just finished a [employer] today. ??? Nasal Congestion Visit Vitals ??? BP 140/95 (BP Location: Right arm, Patient Position: Sitting) ??? Pulse 76 ??? Temp 98.3 ??F (36.8 ??C) (Temporal Artery ) ??? Resp 20 ??? SpO2 96% HPI Allergies Allergen Reactions ??? Penicillins Hives and Shortness Of Breath ??? Benadryl [Diphenhydramine] ??? Codeine Other (See Comments) ??? Valium [Diazepam] Past Medical History Diagnosis Date ??? Hypertension ??? Myocardial infarction Past Surgical History Procedure Laterality Date ??? Colon surgery Social History Social History ??? Marital status: Spouse name: N/A ??? Number of children: N/A ??? Years of education: N/A Social History Main Topics ??? Smoking status: Current Every Day Smoker Packs/day: 1.00 Years: 25.00 Types: Cigarettes ??? Smokeless tobacco: None ??? Alcohol use None ??? Drug use: None ??? Sexual activity: Not Asked Other Topics Concern ??? None Social History Narrative Review of Systems Physical Exam XR Chest 2 View ED Interpretation No acute findings Labs Reviewed - No data to display Problem List Items Addressed This Visit None Visit Diagnoses Acute URI - Primary Relevant Medications PredniSONE (DELTASONE) 10 MG (21) tablet pack promethazine-dextromethorphan (PROMETHAZINE-DM) 6.25-15 MG/5ML syrup Procedures Medication List START taking these medications PredniSONE 10 MG (21) tablet pack Commonly known as: DELTASONE Take by mouth Take As Directed. promethazine-dextromethorphan 6.25-15 MG/5ML syrup Commonly known as: PROMETHAZINE-DM Take 5 mL by mouth 4 (Four) Times a Day As Needed for cough. CONTINUE taking these medications aspirin 81 MG chewable tablet azithromycin 250 MG tablet Commonly known as: ZITHROMAX Take 1 tablet by mouth Daily. Take 2 tablets the first day, then 1 tablet daily for 4 days. benzonatate 200 MG capsule Commonly known as: TESSALON Take 1 capsule by mouth 3 (Three) Times a Day As Needed for cough. montelukast 10 MG tablet Commonly known as: SINGULAIR RESTORIL 15 MG capsule Generic drug: temazepam rOPINIRole 2 MG tablet Commonly known as: REQUIP Please follow up with your PMD in 2-3 days as needed or return to urgent care if needed sooner. If you feel you need immediate care - go to your closest emergency room. Rubi Casiano PA-C 11/17/16 1129 * Rubi Casiano PA-C - 11/17/2016 10:01 AM EST Chief Complaint Patient presents with ??? Cough onset 2 weeks. Just finished a [employer] today. ??? Nasal Congestion Visit Vitals ??? BP 140/95 (BP Location: Right arm, Patient Position: Sitting) ??? Pulse 76 ??? Temp 98.3 ??F (36.8 ??C) (Temporal Artery ) ??? Resp 20 ??? SpO2 96% Patient is a 65 y.o. female presenting with cough. History provided by: Patient Cough Cough characteristics: Dry Duration: 3 weeks Timing: Constant Progression: Worsening Relieved by: Nothing Worsened by: Lying down Ineffective treatments: Home nebulizer Associated symptoms: no chest pain Allergies Allergen Reactions ??? Penicillins Hives and Shortness Of Breath ??? Benadryl [Diphenhydramine] ??? Codeine Other (See Comments) ??? Valium [Diazepam] Past Medical History Diagnosis Date ??? Hypertension ??? Myocardial infarction Past Surgical History Procedure Laterality Date ??? Colon surgery Social History Social History ??? Marital status: Spouse name: N/A ??? Number of children: N/A ??? Years of education: N/A Social History Main Topics ??? Smoking status: Current Every Day Smoker Packs/day: 1.00 Years: 25.00 Types: Cigarettes ??? Smokeless tobacco: None ??? Alcohol use None ??? Drug use: None ??? Sexual activity: Not Asked Other Topics Concern ??? None Social History Narrative Review of Systems Respiratory: Positive for cough. Cardiovascular: Negative for chest pain. All other systems reviewed and are negative. Physical Exam Constitutional: She is oriented to person, place, and time. She appears well- developed and well-nourished. HENT: Head: Normocephalic and atraumatic. Right Ear: External ear normal. Left Ear: External ear normal. Nose: Nose normal. Mouth/Throat: Oropharynx is clear and moist. Eyes: EOM are normal. Pupils are equal, round, and reactive to light. Cardiovascular: Normal rate, regular rhythm and normal heart sounds. Pulmonary/Chest: Effort normal and breath sounds normal. Neurological: She is alert and oriented to person, place, and time. Skin: Skin is warm and dry. Psychiatric: She has a normal mood and affect. Her behavior is normal. Judgment and thought contentnormal. Vitals reviewed. XR Chest 2 View ED Interpretation No acute findings Labs Reviewed - No data to display Problem List Items Addressed This Visit None Visit Diagnoses Acute URI - Primary Relevant Medications PredniSONE (DELTASONE) 10 MG (21) tablet pack promethazine-dextromethorphan (PROMETHAZINE-DM) 6.25-15 MG/5ML syrup Procedures Medication List START taking these medications PredniSONE 10 MG (21) tablet pack Commonly known as: DELTASONE Take by mouth Take As Directed. promethazine-dextromethorphan 6.25-15 MG/5ML syrup Commonly known as: PROMETHAZINE-DM Take 5 mL by mouth 4 (Four) Times a Day As Needed for cough. CONTINUE taking these medications aspirin 81 MG chewable tablet azithromycin 250 MG tablet Commonly known as: ZITHROMAX Take 1 tablet by mouth Daily. Take 2 tablets the first day, then 1 tablet daily for 4 days. benzonatate 200 MG capsule Commonly known as: TESSALON Take 1 capsule by mouth 3 (Three) Times a Day As Needed for cough. montelukast 10 MG tablet Commonly known as: SINGULAIR RESTORIL 15 MG capsule Generic drug: temazepam rOPINIRole 2 MG tablet Commonly known as: REQUIP Please follow up with your PMD in 2-3 days as needed or return to urgent care if needed sooner. If you feel you need immediate care - go to your closest emergency room. Rubi Casiano PA-C 11/17/16 1031 documented in this encounter Plan of Treatment Not on file documented as of this encounter Procedures Procedure Name Priority Date/Time Associated Diagnosis Comments XR CHEST 2 VW STAT 11/17/2016 10:16 AM EST documented in this encounter Results * XR Chest 2 View (11/17/2016 10:16 AM EST) Anatomical Region Laterality Modality Body N/A Radiographic Debra ging 11/17/2016 1:22 PM EST Impressions 11/17/2016 4:06 PM EST 1. Prominent vascular markings left lower lobe, essentially stable from 04/19/2015. 2. Borderline heart size, compensated. 3. No active disease in the chest. Edema, consolidation or free fluid is not identified. D: ??11/17/2016 E: ??11/17/2016 This report was finalized on 11/17/2016 4:[address] Phi Hester MD. Narrative 11/17/2016 4:06 PM EST EXAMINATION: XR CHEST 2 VW- INDICATION: Cough. COMPARISON: None. FINDINGS: 1. Heart is upper limits of normal for size. 2. Minimal linear stranding is seen in the retrocardiac left lower lobe. Most of this is vascular, however, some mild linear interstitial markings may be associated with the vessels in the left lower lobe. Otherwise, there is no evidence of active consolidation, free fluid or edema. ? Procedure Note Phi Hester MD - 11/17/2016 EXAMINATION: XR CHEST 2 VW- INDICATION: Cough. COMPARISON: None. FINDINGS: 1. Heart is upper limits of normal for size. 2. Minimal linear stranding is seen in the retrocardiac left lower lobe. Most of this is vascular, however, some mild linear interstitial markings may be associated with the vessels in the left lower lobe. Otherwise, there is no evidence of active consolidation, free fluid or edema. IMPRESSION: 1. Prominent vascular markings left lower lobe, essentially stable from 04/19/2015. 2. Borderline heart size, compensated. 3. No active disease in the chest. Edema, consolidation or free fluid is not identified. E: 11/17/2016 This report was finalized on 11/17/2016 4:[address] Phi Hester MD. Rubi Casiano PA-C IMG DIAGNOSTIC IMAGIN G ORDERABLES Final Result documented in this encounter Visit Diagnoses Diagnosis Acute URI- Primary Acute upper respiratory infections of unspecified site documented in this encounter Care Teams Assembly Person Relationship Specialty Start Date End Date Shahid Garcia, PCT PCP - General 10/22/16 04/24/23 documented as of this encounter
--- OUTSIDE RECORDS SUMMARY | 2024-10-13 13:27 | XMS_ITS | Encounter Summary ---
Author Organization [facility] Address [address] [place] [id number] Care Team Providers Care Medical Physics Teacher Name Role Phone Unavailable Primary Care Provider Unavailabl e Encounter Details Date Type Department Care Team (Late st Contact Info) Description 03/17/2019 Transcribed Document [facility] Family Medicine [address] [place] [address] ProviderCarlitos MD [address] [place] [address] Social History Tobacco Use Types Packs/Day Years Used Date Smoking Tobacco: Never Assessed Comments Unknown Sex and Gender Information Value Date Recorded Sex Assigned at Not on file Legal Sex Female 4:37 PM CDT Gender Identity Not on file Sexual Orientation Not on file documented as of this encounter Miscellaneous Notes * Cerner Conversion Note - Carlitos Catalan MD - 03/17/2019 6:15 PM CDT DATE OF SERVICE: 03/06/2019 POLYSOMNOGRAPHY REPORT REFERRING PHYSICIAN: Kalpana Mcguire HISTORY: Ms. Andres is a 68-year-old woman with restless legs syndrome, insomnia, and a new diagnosis of atrial fibrillation. She also has COPD and hypertension. POLYSOMNOGRAPHY REPORT: MONTAGE: F3-M2, F4-1, C3-M2, O1-M2, O2-M1, LOC-M2, RASHIDA-M2, submental EMG (3 leads), L tibialis anterior, R tibialis anterior, ECG, SpO2, nasal airflow (pressure), oral airflow (thermal), thoracic respiratory effort and abdominal respiratory effort. METHOD: Continuous recording of electroencephalographic, oculographic, submental EMG, limb movements, pulse oximetry, electrocardiogram using modified lead II torso placement, airflow and respiratory effort occurred during the patient's habitual sleep time. Each 30 second epoch was scored according to The AASM Manual for the Scoring of Sleep and Associated Events using the 1 B 4% hypopnea rule. Capnography was recorded if indicated by physician order. RESULTS: Sleep architecture: Ms. Andres was monitored for 423 minutes and slept for 408 minutes for a high sleep efficiency of 96.3%. Initial sleep onset latency was short at 2 minutes indicating significant sleepiness. All stages of sleep were adequately seen and appeared normal. Sleep continuity: There were 55 arousals from sleep averaging 8.7 per hour, which is mildly increased. Respiratory: No apneas were seen. There were 47 hypopneas averaging 6.9 per hour. These were much worse in REM sleep averaging 28.4 per hour during REM. Oxygen: Oxygen saturation dropped as low as 83%, it was below 90% for 4.9 minutes, which was 1.2% of sleep time. There was no hypercapnia. Cardiac: There was normal sinus rhythm throughout the study with an average heart rate of 56.8 beats per minute. Periodic movements: There were 23 periodic limb movements averaging 3.4 per hour, which is normal. ASSESSMENT: Mild sleep apnea, worse in REM sleep associated with significant oxygen desaturation. This may be exacerbating her atrial fibrillation. RECOMMENDATIONS: We will prescribe a trial of CPAP and follow up with the patient in the Sleep Clinic. Rafael Virk M.D. Dict: 03/17/2019 18:15:32 Trans: 03/18/2019 04:33:01 CC1: Rafael Virk M.D. CC2: Dr. Marily Lynn Electronically signed by [facility] Conversion Senior Ux Developer Cerner at 03/16/2023 2:48 PM CDT documented in this encounter Plan of Treatment Not on file documented as of this encounter Visit Diagnoses Not on filedocumented in this encounter
--- OUTSIDE RECORDS SUMMARY | 2024-10-13 13:27 | XMS_ITS | Encounter Summary ---
Author Organization [facility] Address [address] [place] [address] Care Team Providers Care Web Production Manager Name Role Phone Michael Baez MD Primary Care Provider + [phone] Reason for Visit * Reason Onset Date Comments HCN - Rx Refill Request 09/15/2021 Encounter Details Date Type Department Care Team (Late st Contact Info) Description 09/15/2021 Telephone [facility] [place] [address] [facility] [address], [address] [place] [address] Acacia Scott, SEAMAN OFFICER [address] [place] [address] HCN - Rx Refill Request Social History Tobacco Use Types Packs/Day Years [...] Telephone Encounter - Nakul Clark - 09/15/2021 1:23 PM EDT Medication Refill Request Medication Name & Dosage: Eliquis and Repatha Preferred Pharmacy & Location: pharmacy Days of medication remaining (if under 3 days please joellen as urgent): Best contact number and optimal time of day to reach caller: [phone] Additional comments/information from caller: Note: Please do not reply to this [...] Description 03/30/2025 2:00 PM EDT Office Visit [facility] [place] [address] [facility], [address] [place] [address] Acacia Scott, SEAMAN OFFICER [address] [place] [address] Scheduled Procedures Name Priority Associated Diagnoses Date/Ti me ARTHROPLASTY, HIP, TOTAL Arthritis of right hip documented as of this encounter Visit Diagnoses Not on filedocumented in this encounter Care Teams Web Production Manager Relationship Specialty Start Date End Date Michael Baez MD [address] [place] [address] PCP - General 04/08/21 documented as of this encounter
--- OUTSIDE RECORDS SUMMARY | 2024-10-13 13:27 | XMS_ITS | Encounter Summary ---
Author Organization [facility] Address [address] [place] [address] Care Team Providers Care Superintendent Oil Field Drilling Name Role Phone Michael Baze MD Primary Care Provider + [phone] Reason for Visit * Reason Onset Date Comments Appointment 08/11/2021 Patient needs to re-schedule an appt with Acacia Scott Encounter Details Date Type Department Care Team ([facility] st Contact Info) Description 08/11/2021 Telephone Medical Office Building Obstetrics and Gynecology [address] [facility], [address] [place] [address] Acacia Scott, CD MANUFACTURING SUPERVISOR [address] [place] [address] Appointment (Patient needs to re-schedule an appt with Acacia Scott) Social History Tobacco Use Types Packs/Day Years Used Date Smoking Tobacco: Former Comments Unknown Sex and Gender Information Value Date Recorded Sex Assigned at Not on file Legal Sex Female 7:36 PM EDT Gender Identity Not on file Sexual Orientation Not on file documented as of this encounter Miscellaneous Notes * Telephone Encounter - Aliya Odell, PharmD - 08/16/2021 10:26 AM EDT Pt states she was unable to go to her cardiology appt because her daughter had to have surgery. Shestates she called to reschedule and had to leave a message. She would like someone to reach out to her to schedule another appt so she can continue her Eliquis and Repatha. Thanks, Saba Odell, PharmD documented in this encounter Plan of Treatment Upcoming Encounters Date Type Department Care Team ([facility] st Contact Info) Description 03/30/2025 2:00 PM EDT Office Visit [facility] [place] [address] [facility], [address] [place] [address] Acacia Scott, CD MANUFACTURING SUPERVISOR [address] [place] [address] Scheduled Procedures Name Priority Associated Diagnoses Date/Ti me ARTHROPLASTY, HIP, TOTAL Arthritis of right hip documented as of this encounter Visit Diagnoses Not on filedocumented in this encounter Care Teams Superintendent Oil Field Drilling Relationship Specialty Start Date End Date Michael Baez MD [address] [place] [address] PCP - General 04/08/21 documented as of this encounter
--- OUTSIDE RECORDS SUMMARY | 2024-10-13 13:27 | XMS_ITS | Encounter Summary ---
Author Organization [facility] Address [address] [place] [address] Care Team Providers Care Forensic Structural Engineer Name Role Phone Unavailable Primary Care Provider Unavailabl e Encounter Details Date Type Department Care Team (Late st Contact Info) Description 09/21/2006 Historical Mammograp hy Encounter [facility] [address] [facility] [place] [address] Interface, See Report Social History [...] Associated Diagnosis Comments MAMMO HISTORICAL RESULT Routine 09/21/2006 11:26 AM EDT documented in this encounter Results * MAMMO HISTORICAL RESULT (09/21/2006 11:26 AM EDT) Anatomical Region Laterality Modality Breast Mammography 09/21/2006 11:2 6 AM EDT Narrative 09/24/2006 8:55 AM EST ? [address] ??[place], [place] [address] ? NAME: SUPRIYA SALGADO ? : ??52 ??MR#: [id number] ? LOC: ?? DIS ? AGE: 55Y ?? Pt type: CO ?Exam Date: 09/21/061136 ? SEX: F ?? AN#:[id number] ?Ck-in#: [id number] ? [facility] ? [address] ? [address] ? [place] ?[place] ?[address] ? Chk-in # ?? Order ?Exam ?[id number] ?? 0001 ? [id number] ??BC MAMM SCREENING BILAT DIGIT PNL ? Ord Diag: RTN MMG ? HISTORY: ?? The patient is 55 years old and indicates she has swelling and tenderness in her breasts but this is not a new problem. ??She denies any palpable lesion. ??Her last mammogram was done 15-20 years ago and she doesn't remember where. ??She has no family history of breast cancer. ?? BILATERAL SCREENING DIGITAL MAMMOGRAM: ?? COMPARISON: ??None. ?? TECHNICAL: ??Bilateral CC and MLO digital images were obtained plus cleavage view (five images). ?? FINDINGS: ??There are scattered fibroglandular densities bilaterally. ??A single punctate calcification is seen just deep to the right nipple and right six month follow up mammogram is recommended. ??There is a skin lesion at the 6 o'clock position of the right breast at the inframammary fold. ??Just deep and inferior to the left nipple in the anterior third is a 3 mm cluster of very fine, faint microcalcifications. ??Left six month follow up mammogram is recommended. ??No spiculated mass is seen. ?? IMPRESSION: ?? A single microcalcification on the right and 3 mm cluster of fine microcalcifications on the left with no prior films for comparison. ?? RECOMMENDATION: ??Recommend bilateral six month follow up mammogram. ?? Bi-Rads Category III, probably benign. ??Please accept this as sufficient as an order for six month follow up. ? FINAL ?CONTINUED ?Page ??1 ? RADIOLOGY REPORT ?[facility] ? [address] ??[place], [place] [address] ? NAME: SUPRIYA SALGADO ? : ??52 ??MR#: [id number] ? LOC: ?? DIS ? AGE: 55Y ?? Pt type: CO ?Exam Date: 09/21/061136 ? SEX: F ?? AN#:[id number] ?Ck-in#: [id number] ? [facility] ? [address] ? [address] ? [place] ?[place] [address] ? Checkin-Exam Code Summary ? [id number] The standard false-negative rate of mammography is between 10 and 25%. Complex patterns or increased breast density will markedly elevate the false-negative rate of mammography. ?? The images were overread by [employer]. ?? A copy of this report in lay terminology has been sent to the patient. ?/READ BY/ JANES MCFARLAND ?/Released By/ JANES MCFARLAND ?Released By Date/Time: ??09/24/06847 ?Health Plan Advisor: ??PATY ? FINAL ? Page ??2 ? RADIOLOGY REPORT us See Report Interface IMG MAMMOGRAPHY ORDERABLES Final Result documented in this encounter Visit Diagnoses Not on filedocumented in this encounter
--- OUTSIDE RECORDS SUMMARY | 2024-10-13 13:27 | XMS_ITS | Encounter Summary ---
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 female. Chief Complaint Patient presents with ??? 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 provider found to provide initial consultation on Supriya Andres is a 68-year-old woman with a history of paroxysmal atrial fibrillation referred for consideration of a catheter ablation. She is first diagnosed with atrial fibrillation in November 2018. She had recurrent A. fib and underwent cardioversion in mid December. She had a second cardioversion in January after a trial of amiodarone. She experienced immediate return of atrial fibrillation after the second cardioversion. She reports shortness of breath and dyspnea on exertion and heart racing at times. She is also fatigued and tired during the day she wakes at night and has had witnessed apneic episodes by her . No presyncope or syncope no history of strokes Other This is a chronic (Hx of AF) problem. The current episode started more than 1 month ago. The problem occurs constantly. The problem has been unchanged. Associated symptoms include coughing and fatigue. Pertinent negatives include no arthralgias, chest pain, chills, congestion, diaphoresis, fever, headaches, joint swelling, myalgias, nausea, neck pain, numbness, rash, urinary symptoms, vomiting orweakness. Nothing aggravates the symptoms. Treatments tried: 2 x CV. The treatment provided no relief. Their chronic cardiac conditions are: Problem List Cardiology Problems Afib (HCC) History Smoking Status ??? Former Smoker ??? Packs/day: 2.00 ??? Years: 52.00 ??? Quit date: 2016 Smokeless Tobacco ??? Never Used Current Outpatient Prescriptions Medication Sig Dispense Refill ??? apixaban (ELIQUIS) 5 mg Oral Tablet Take 5 mg by mouth 2 times daily. ??? atorvastatin (LIPITOR) 40 mg Oral Tablet daily. ??? lqhndjomtht-egdxrvqiwrru-ywypuhmwdi (TRELEGY ELLIPTA) 100-62.5-25 mcg Inhl Disk with Device daily. ??? metoprolol (LOPRESSOR) 50 mg Oral Tablet metoprolol tartrate 50 mg tablet Two times a day ??? rOPINIRole (REQUIP) 2 mg Oral Tablet Take by mouth. ??? senna (SENOKOT) 8.6 mg Oral Tablet daily. ??? temazepam (RESTORIL) 15 mg Oral Capsule Take by mouth. No current facility-administered medications for this visit. Patients past medical, family and social histories were reviewed and updated. There were no changesexcept as noted. Review of Systems Constitution: Positive for fatigue, malaise/fatigue and weight gain. Negative for chills, decreasedappetite, diaphoresis, fever, weakness, night sweats and weight loss. HENT: Negative for congestion, hearing loss and nosebleeds. Cardiovascular: Positive for dyspnea on exertion, irregular heartbeat, palpitations and paroxysmal nocturnal dyspnea. Negative for chest pain, leg swelling, near-syncope and syncope. Chest tightness and heart racing Respiratory: Positive for cough and shortness of breath. Negative for hemoptysis, sleep disturbances due to breathing, snoring, sputum production and wheezing. Endocrine: Negative for cold intolerance, heat intolerance, polydipsia and polyuria. Hematologic/Lymphatic: Does not bruise/bleed easily. Skin: Negative for itching and rash. Musculoskeletal: Negative for arthralgias, arthritis, back pain, falls, gout, joint pain, joint swelling, muscle cramps, muscle weakness, myalgias and neck pain. Gastrointestinal: Negative for constipation, diarrhea, dysphagia, heartburn, melena, nausea and vomiting. Genitourinary: Negative for bladder incontinence, dysuria, frequency, hematuria and urgency. Neurological: Negative for brief paralysis, difficulty with concentration, disturbances in coordination, dizziness, headaches, light-headedness, loss of balance, numbness, seizures and tremors. Psychiatric/Behavioral: Negative for altered mental status, depression and memory loss. The patientis nervous/anxious. Objective: Patient Vitals for the past 24 hrs: Pulse BP BP Location Patient Position 02/18/19 1430 56 130/84 Left arm Sitting Body mass index is 33.61 kg/m??. Physical Exam General: No apparent distress. Alert and oriented. Eyes: No Scleral icterus. Ptosis is absent. Ears, Nose, Mouth, Throat: Oropharynx is clear. Nose is midline. Neck:Trachea is midline. Respiratory: Respiratory effort is normal. Clear to auscultation bilaterally Cardiovascular: Rhythm is regular. S1 and S2 normal. no murmur. Pulses are normal. Jugular venous pressure is normal. Carotid Bruits are absent. Abdomen: Abdomen is soft and non tender. Extremeties: Clubbing is absent. Cyanosis is absent. No Edema Skin: Warm and dry. Neurological: Cranial nerves are grossly intact. Speech is normal. Psychiatric: Mood is normal. Affect is normal. No results found for this visit on 02/18/19. Lab Review No results found for: WBC, HGB, PLT No results found for: NA, K, GLU, ALT, ALKPHOS No results found for: TSH No results found for: CHOLESTEROL, HDL, LDLCALC, TRIG No results found for: INR, PROTIME Assessment and Plan: Supriya was seen today for new patient. Diagnoses and all orders for this visit: Atrial fibrillation, unspecified type (HCC) - POCT EKG Mrs. Andres is a 68-year-old woman with recently diagnosed paroxysmal atrial fibrillation with recurrent episodes after a trial of amiodarone. She has had 2 prior cardioversions both with immediate return of atrial fibrillation. Today she is in sinus rhythm by EKG. We had a discussion about her symptoms and trying to attribute them to the atrial fibrillation. She was somewhat surprised to find out that she was in normal rhythm today because she continues to experience the same symptoms that she had while she was in atrial fibrillation which include fatigue and dyspnea on exertion. She almostcertainly has undiagnosed obstructive sleep apnea having had witnessed apneic episodes at night. Wediscussed both the pathophysiology of atrial fibrillation and obstructive sleep apnea. Including the high chance of recurrence of atrial fibrillation after ablation procedure if the obstructive sleepapnea goes untreated. We also reviewed the treatment strategies for atrial fibrillation including catheter ablation which I believe she would be a good candidate. I reviewed the procedure in detail potential for complications and possible need for repeat procedures. At this time because of the highpretest probability of obstructive sleep apnea I would recommend proceeding with a sleep study and treating the sleep apnea. In some patients treating the sleep apnea can resolve the atrial fibrillation without the need for an ablation procedure. I will plan to see her back in 3 months time after jaz marrufo has had her sleep study and hopefully on CPAP at which point we will further discuss an A. fib ablation. I also encouraged her to lose weight which will help both the A. fib and sleep apnea. In themeantime she will stay on metoprolol and Eliquis. documented in this encounter Miscellaneous Notes * Patient Instructions - Mason Burt MA - 02/18/2019 2:30 PM EDT You may be contacted by mail or e-mail to participate in a patient satisfaction survey regarding your office visit today. We value your opinion and depend on your feedback to make improvements and provide you with the best possible experience while receiving high quality medical treatment. Your time in completing this survey is greatly appreciated. Please contact your primary care physician to discuss your need for a pneumo vaccine. documented in this encounter Plan of Treatment Not on file documented as of this encounter Procedures Procedure Name Priority Date/Time Associated Diagnosis Comments POCT EKG Routine 02/18/2019 2:35 PM EDT Atrial fibrillation, unspecified type (HCC) documented in this encounter Results * POCT EKG (02/18/2019 2:35 PM EDT) 02/18/2019 2:35 PM EDT Impressions [facility] OFFICE - 02/18/2019 2:35 PM EDT Sinus bradycardia Premature atrial contraction First-degree AV block us Tramaine Ladd MD POINT OF CARE CARDIOLOGY Final Result SEP OFFICE documented in this encounter Visit Diagnoses Diagnosis Atrial fibrillation, unspecified type (HCC)- Primary documented in this encounter Historical Medications * This list may reflect changes made after this encounter. temazepam (RESTORIL) 15 mg Oral Capsule Take by mouth. senna (SENOKOT) 8.6 mg Oral Tablet daily. rOPINIRole (REQUIP) 2 mg Oral Tablet Take by mouth. metoprolol (LOPRESSOR) 50 mg Oral Tablet metoprolol tartrate 50 mg tablet Two times a day fluticasone-umec lidinium-vilante rol (TRELEGY ELLIPTA) 100-62.5-25 mcg Inhl Disk with Device daily. atorvastatin (LIPITOR) 40 mg Oral Tablet daily. apixaban (ELIQUIS) 5 mg Oral Tablet Take 5 mg by mouth 2 times daily. added in this encounter
--- OUTSIDE RECORDS SUMMARY | 2024-10-13 13:27 | XMS_ITS | Encounter Summary ---
Author Organization [facility] Address [address] [place] [id number] Care Team Providers Care Condenser Tester Name Role Phone Unavailable Primary Care Provider Unavailabl e Encounter Details Date Type Department Care Team (Late st Contact Info) Description 02/18/2019 Transcribed Document [facility] Family Medicine [address] [place] [address] ProviderCarlitos MD [address] [place] [address] Social History Tobacco Use Types Packs/Day Years Used Date Smoking Tobacco: Never Assessed Comments Unknown Sex and Gender Information Value Date Recorded Sex Assigned at Not on file Legal Sex Female 4:37 PM CDT Gender Identity Not on file Sexual Orientation Not on file documented as of this encounter Miscellaneous Notes * Cerner Conversion Note - Carlitos Catalan MD - 02/18/2019 6:56 PM CDT DATE OF SERVICE: 02/18/2019 SLEEP MEDICINE FOLLOWUP HISTORY OF PRESENT ILLNESS: Ms. Andres is seen in followup, last here June 12, 2018. She has restless legs syndrome and is using ropinirole at 2 mg nightly and is doing well with it. She is having no trouble tolerating it, has not needed dose escalation, and has no complaints about it. She also has insomnia, for which she has been using temazepam 15 mg nightly, tolerating it well. OTHER MEDICAL PROBLEMS: Include a new diagnosis of atrial fibrillation. She also has COPD, obesity, and hypertension. REVIEW OF SYSTEMS: Positive for increasing weight and shortness of breath, otherwise negative. SOCIAL HISTORY: She does not smoke or drink alcoholic beverages or caffeine. MEDICATIONS: 1. Temazepam. 2. Aspirin. 3. Hydrochlorothiazide. 4. Ropinirole. 5. Eliquis. 6. Trilogy. PHYSICAL EXAMINATION: GENERAL: Ms. Andres is a pleasant woman, in no distress. VITAL SIGNS: Weight is up 14 pounds to 196 pounds with a body mass index of 33.5. Blood pressure 138/90, pulse 63, respirations 18, oxygen saturation 94%. HEAD AND NECK: Shows normal-appearing nasal mucosa without obstruction or bleeding. The oral exam shows a large tongue with a Mallampati class III appearance. HEART: Regular at times, but irregular at times, suggestive of intermittent atrial fibrillation. LUNGS: Clear in all lung sanders. EXTREMITIES: There was no peripheral edema. MENTAL STATUS: She was awake, alert, and cooperative. ASSESSMENT: 1. Restless legs syndrome, doing well with ropinirole. 2. Insomnia, doing well with temazepam. 3. She has new onset atrial fibrillation. She has steadily gained weight over the past couple of years, suggesting the possibility of obstructive sleep apnea, which may exacerbate her atrial fibrillation and make it harder to control. 4. Obesity. 5. Chronic obstructive pulmonary disease. 6. Hypertension. RECOMMENDATIONS: 1. Continue with ropinirole at 2 mg nightly. 2. Continue with temazepam 15 mg nightly. 3. We will check a polysomnogram. If sleep apnea is found, she has agreed to a trial of CPAP. We will plan to follow up after the above. Rafael Virk M.D. Dict: 02/18/2019 18:56:37 Trans: 02/19/2019 00:12:35 CC1: Rafael Virk M.D. CC2: Kalpana Mcguire documented in this encounter Plan of Treatment Not on file documented as of this encounter Visit Diagnoses Not on filedocumented in this encounter
--- OUTSIDE RECORDS SUMMARY | 2024-10-13 13:27 | XMS_ITS | Encounter Summary ---
Author Organization [facility] Address [address] [place] [address] Care Team Providers Care Lunch Wagon Operator Name Role Phone Unavailable Primary Care Provider Unavailabl e Encounter Details Date Type Department Care Team (Late st Contact Info) Description 05/06/2019 Transcribed Document [facility] [address] [place] [address] ProviderCarlitos MD [address] [place] [address] Social History Tobacco Use Types Packs/Day Years Used Date Smoking Tobacco: Never Assessed Comments Unknown Sex and Gender Information Value Date Recorded Sex Assigned at Not on file Legal Sex Female 4:37 PM CDT Gender Identity Not on file Sexual Orientation Not on file documented as of this encounter Miscellaneous Notes * Cerner Conversion Note - Carlitos Catalan MD - 05/06/2019 4:34 PM CDT DATE OF SERVICE: 05/06/2019 SLEEP MEDICINE FOLLOWUP HISTORY OF PRESENT ILLNESS: Ms. Andres is seen in followup last here February 18, 2019. She had a sleep study on March 06 and this showed mild sleep apnea with an apnea-hypopnea index of 6.9 per hour and mild oxygen desaturation. She was prescribed CPAP, mainly because of new onset atrial fibrillation because she did not have sleepiness. She was prescribed auto CPAP with a pressure range of 6-16 cm and has used this fairly well averaging 4 hours and 14 minutes per night. She has had problems lately using it feeling that the P10 nasal pillow was too uncomfortable for her. When using CPAP, respiratory disturbances were well controlled at 1.9 per hour and her CPAP pressure has only been 7 cm or less for 90% of the time. She also has restless legs syndrome and for this has been using ropinirole at 2 mg nightly with good benefit. There has been no worsening of restless legs or augmentation. She also has insomnia for which she is using temazepam at 15 mg nightly. She is doing well with it and does not report any daytime grogginess. In fact, she reports no sleepiness and scores 0/24 in the [place] Sleepiness Scale. OTHER MEDICAL PROBLEMS: Include atrial fibrillation for which she is scheduled to see an ic designer gate arrays in the next several days. She has COPD, obesity, and hypertension. REVIEW OF SYSTEMS: Otherwise negative. SOCIAL HISTORY: She does not smoke or drink alcoholic beverages. She has about two caffeinated drinks a day. MEDICATIONS: 1. Temazepam. 2. Aspirin. 3. Hydrochlorothiazide. 4. Ropinirole. 5. Eliquis. 6. Trilogy inhaler. 7. Metoprolol. PHYSICAL EXAMINATION: GENERAL: Ms. Andres is a pleasant woman in no distress. VITAL SIGNS: Weight is down 7 pounds to 189 pounds with a body mass index of 32. Blood pressure 118/72, pulse 52, respirations 14, oxygen saturation 98%. HEAD AND NECK: Exam shows normal-appearing nasal mucosa without obstruction or bleeding. The oral exam shows dentures. She has normal tongue, soft palate, and uvula with a Mallampati class I appearance. The skin around the nose and mouth was intact. HEART: Slow to normal rate, irregular rhythm. No murmur. MENTAL STATUS: She was awake, alert, and cooperative. ASSESSMENT: 1. Obstructive sleep apnea syndrome. This was mild, but likely to be contributing to atrial fibrillation. 2. Restless legs syndrome, doing well with ropinirole. 3. Insomnia, doing well with temazepam. 4. Obesity with significant recent weight loss. 5. Atrial fibrillation. 6. Chronic obstructive pulmonary disease. 7. Hypertension. RECOMMENDATIONS: 1. Continue with current CPAP treatment. She needs a change of mask and I think she would do best with a DreamWear full face mask and we will change to this. 2. Continue ropinirole 2 mg nightly. 3. Continue temazepam 15 mg nightly. 4. Continue efforts at weight loss. 5. We will plan to follow up in about two months. Rafael Virk M.D. Dict: 05/06/2019 16:34:34 Trans: 05/07/2019 01:10:44 CC1: Rafael Virk M.D. CC2: Kalpana Mcguire APRN Electronically signed by [facility] Conversion Butadiene Convertor Operator Cerner at 03/16/2023 2:48 PM CDT documented in this encounter Plan of Treatment Not on file documented as of this encounter Visit Diagnoses Not on filedocumented in this encounter
--- OUTSIDE RECORDS SUMMARY | 2024-10-13 13:27 | XMS_ITS | Encounter Summary ---
Author Organization [facility] Address [address] [id number] Care Team Providers Care Precast Molder Name Role Phone Michael Baez MD Primary Care Provider + [phone] Reason for Visit * Reason Onset Date Comments Med Refill 07/14/2021 Encounter Details Date Type Department Care Team (Late Contact Info) Description 07/14/2021 Refill [facility] [address], [address] [place] [address] Zina Orosco, RN [facility] Social History Tobacco Use Types Packs/Day Years Used Date Smoking Tobacco: Former Comments Unknown Sex and Gender Information Value Date Recorded Sex Assigned at Not on file Legal Sex Female 7:36 PM EDT Gender Identity Not on file Sexual Orientation Not on file documented as of this encounter Plan of Treatment Upcoming Encounters Date Type Department Care Team ([facility] Contact Info) Description 03/30/2025 2:00 PM EDT Office Visit [facility] [address], [address] [place] [address] Acacia Scott, CUTTER AND PRESSER [address] [place] [address] Scheduled Procedures Name Priority Associated Diagnoses Date/Ti me ARTHROPLASTY, HIP, TOTAL Arthritis of right hip documented as of this encounter Visit Diagnoses Not on filedocumented in this encounter Care Teams Precast Molder Relationship Specialty Start Date End Date Michael Baez MD [address] [place] [address] PCP - General 04/08/21 documented as of this encounter
--- OUTSIDE RECORDS SUMMARY | 2024-10-13 13:27 | XMS_ITS | Encounter Summary ---
Author Organization Healthcare Address [address] [id number] Care Team Providers Care Knitter Machine Name Role Phone Michael Baez MD Primary Care Provider [phone] Encounter Details Date Type Department Care Team (Late st Contact Info) Description 09/22/2021 3:00 PM EDT Office Visit [facility] [place] [address] [facility], [address] [place] [address] Acacia Scott, MEDICAL CHARGE ENTRY SPECIALIST [address] [place] [address] Mixed hyperlipidemia (Primary Dx); Paroxysmal atrial fibrillation (CMS/HCC); ASCVD (arteriosclerotic cardiovascular [...] Sign Reading Time Taken Comments Blood Pressure 124/88 09/22/2021 3:00 PM EDT Pulse 70 09/22/2021 3:00 PM EDT Temperature 37.1 ??C (98.7 ??F) 09/22/2021 3:00 PM ED T Respiratory Rate - - Oxygen Saturation 96% 09/22/2021 3:00 PM EDT Inhaled Oxygen Concentration - - Weight 83.7 kg (184 lb 8.4 oz) 09/22/2021 3:00 P M EDT Height 162.6 cm (5' 4 ) 09/22/2021 3:00 PM EDT Body Mass Index 31.67 09/22/2021 3:00 PM EDT documented in this encounter Miscellaneous Notes * Progress Notes - Acacia Scott APRN - 09/22/2021 3:00 PM EDT Images from the original note were not included. Supriya Andres is a 70 y.o. female with CAD s/p CABG, stent to LAD with AMY in May 2019 and as recent as 04/30/2020 she was found to have ISRS of the distal portion of the mid LAD with a mildly reduced EF of 45-50% (both done by Dr. Abdalla at [facility]). She also has a h/o AF, CORNELIA, HTN,and hyperlipidemia. She has been followed by Dr. Mar for the AF and underwent PVI on 2018. ?? Today she follows up from last month on her BP that was elevated at the time of her visit and some confusion regarding her medications as she hadn't been seen in over a year. She was supposed to bring her medication bottles with her today but forgot. BP today is better, doesn't check it at home. She still denies any chest pain, orthopnea, palpitations, dizziness, syncope, fatigue or edema. She has been short of breath after a recent COPD exacerbation that was treated with two rounds of steroidsand an antibiotic. She walks 45 minutes everyday and in [...] LDL <30, Trig 154, HDL 76. . ?? Review of symptoms Constitutional: Negative for decreased [...] ??? BILIARY DRAINAGE N/A Atrial Cardioversion from [facility] ??? CATH STENT PLACEMENT/ CATH PLACEMENT OF STENT N/A Cath Stent Placement from [facility] ??? COLON SURGERY N/A Colon Surgery from [facility] ??? CORONARY ARTERY BYPASS GRAFT N/A CABG from [facility] ??? HYSTERECTOMY N/A Hysterectomy from [facility] ??? TOTAL KNEE ARTHROPLASTY N/A Knee Replacement from [facility] Family History family history includes Coronary artery disease in her father and mother. Social History reports that she has quit smoking. She has never used smokeless tobacco. No history on file for alcohol use and drug use. Medications Current Outpatient Medications Medication Sig Dispense Refill ??? aspirin 81 MG chewable tablet Chew 81 mg 1 (one) time each day. ??? bisoprolol (Zebeta) 5 MG tablet Take 1 tablet (5 mg total) by mouth 1 (one) time each day. 90 tablet 3 ??? buPROPion XL (Wellbutrin XL) 150 MG 24 hr tablet Take 150 mg by mouth 1 (one) time each day in the morning. ??? cholecalciferol (Vitamin D-3) 50 MCG (2000 UT) capsule Take 2,000 Units by mouth 1 (one) time each day. ??? Combivent Respimat 20-100 MCG/ACT inhaler ??? Eliquis 5 MG tablet Take 1 tablet (5 mg total) by mouth 2 (two) times a day. 60 tablet 0 ??? ergocalciferol (Vitamin D-2) 1.25 MG (17365 UT) capsule Take 50,000 Units by mouth 1 (one) timeper week. ??? escitalopram (Lexapro) 20 MG tablet Take 20 mg by mouth 1 (one) time each day. ??? Evolocumab (Repatha SureClick) 140 MG/ML solution auto-injector Inject 140mg (1 pen) sub-q every 2 weeks 2 mL 0 ??? famotidine (Pepcid) 20 MG tablet ??? Deqwqrxlrzy-Qopxcachb-Tbmrfh (Trelegy Ellipta) 100-62.5-25 MCG/INH aerosol powder 100 mcg 1 (one) time each day. ??? losartan (Cozaar) 25 MG tablet Take 1 tablet (25 mg total) by mouth 1 (one) time each day. 90 tablet 3 ??? rOPINIRole (Requip) 1 MG tablet Take 1 mg by mouth 3 (three) times a day. ??? Temazepam (RESTORIL PO) temazepam 15 mg qhs ??? albuterol (Ventolin HFA) 108 (90 Base) MCG/ACT inhaler every 4 (four) hours. (Patient not taking: Reported on 08/18/2021) ??? amantadine (Symmetrel) 100 MG tablet (Patient not taking: Reported on 08/18/2021) ??? diclofenac (Voltaren) 75 MG EC tablet take once a day (Patient not taking: Reported on 08/18/2021) ??? levoFLOXacin (Levaquin) 500 MG tablet 1 (one) time each day at the same time. (Patient not taking: Reported on 09/22/2021) No current facility-administered medications for this visit. [...] normal. Behavior: Behavior normal. Visit Vitals BP 124/88 Pulse 70 Temp 37.1 ??C (98.7 ??F) Ht 1.626 m (5' 4 ) Wt 83.7 kg (184 lb 8.4 oz) SpO2 96% BMI 31.67 kg/m?? Cardiac Testing Imaging Labs Lab Results Component Value Date HGB 11.6 10/30/2019 HCT 35.8 10/30/2019 PLT 339 10/30/2019 NA 142 10/30/2019 K 3.8 10/30/2019 CREATININE 0.85 10/30/2019 BUN 12 10/30/2019 CO2 27 10/30/2019 INR 1.2 (H) 10/30/2019 Assessment and Plan 1. CAD -Recent ISRS of LAD -AMY placed to mid LAD -Continue Aspirin BB and repatha. No longer needs Plavix. -Asymptomatic and stable -Pt will be getting a new lipid panel as her last LDL was at goal while she was taking both atorvastatin and Repatha but she has not been taking atorvastatin. ?? 2. PAF -Continue f/u with EP -Rate controlled with BB -Anticoagulated with Eliquis for CHADS-VASC score of 3 ?? 3. Hyperlipidemia -Pt will get Lipid panel. She is currently on Repatha only-previous notes had her on statin with Repatha so will see where she is at. ?? 4. HTN -BP better today -Continue Bisoprolol and Losartan -BMP normal after addition of ARB ?? F/u in 6 months. Get lipid panel A total time of 30 minutes was [...] Description 03/30/2025 2:00 PM EDT Office Visit [facility] [place] [address] [facility], [address] [place] [address] [place] Acacia Calvin, MEDICAL CHARGE ENTRY SPECIALIST [address] [place] [address] Scheduled Procedures Name Priority Associated Diagnoses Date/Ti me ARTHROPLASTY, HIP, TOTAL Arthritis of right hip documented as of this encounter Visit Diagnoses Diagnosis Mixed hyperlipidemia- Primary Paroxysmal atrial fibrillation (CMS/HCC) Atrial fibrillation ASCVD (arteriosclerotic cardiovascular disease) Unspecified cardiovascular disease Primary hypertension Unspecified essential hypertension documented in this encounter Additional Health Concerns Assessment Noted Time A fall risk assessment has been complete d for the patient 09/22/2021 3:05 PM EDT documented as of this encounter Care Teams Knitter Machine Relationship Specialty Start Date End Date Michael Baez MD [address] [facility] [address] [place] [address] PCP - General 04/08/21 documented as of this encounter
--- OUTSIDE RECORDS SUMMARY | 2024-10-13 13:27 | XMS_ITS | Encounter Summary ---
Author Organization [facility] Address [address] [place] [address] Care Team Providers Care Senior Commissary Agent Name Role Phone Michael Baez MD Primary Care Provider [phone] Encounter Details Date Type Department Care Team (Latest Contact Info) Description 08/18/2021 Travel Social History Tobacco Use Types Packs/Day [...] Description 03/30/2025 2:00 PM EDT Office Visit [facility] [place] [address] [facility], [address] [place] [address] Acacia Scott, MAJOR ACCOUNT REPRESENTATIVE [address] [place] [address] Scheduled Procedures Name Priority Associated Diagnoses Date/Ti me ARTHROPLASTY, HIP, TOTAL Arthritis of right hip documented as of this encounter Visit Diagnoses Not on filedocumented in this encounter Care Teams Senior Commissary Agent Relationship Specialty Start Date End Date Michael Baez MD [address] [place], [place] [address] PCP - General 04/08/21 documented as of this encounter
--- OUTSIDE RECORDS SUMMARY | 2024-10-13 13:27 | XMS_ITS | Encounter Summary ---
Author Organization [facility] Address [address] [id number] Care Team Providers Care Die Grinder Name Role Phone Michael Baez MD Primary Care Provider + [phone] Encounter Details Date Type Department Care Team ([facility] Contact Info) Description 06/22/2021 Refill [facility] [place] [address] [facility], [address] [place] [address] Josi Richardson MD [address] [place] [address] Social History Tobacco Use Types Packs/Day Years [...] Description 03/30/2025 2:00 PM EDT Office Visit [facility] [place] [address] [place] [address] Acacia Scott, EDWAR [address] [place] [address] Scheduled Procedures Name Priority Associated Diagnoses Date/Ti me ARTHROPLASTY, HIP, TOTAL Arthritis of right hip documented as of this encounter Visit Diagnoses Not on filedocumented in this encounter Care Teams Die Grinder Relationship Specialty Start Date End Date Michael Baez MD [address] [place] [address] PCP - General 04/08/21 documented as of this encounter
--- OUTSIDE RECORDS SUMMARY | 2024-10-13 13:27 | XMS_ITS | Encounter Summary ---
Author Organization [facility] Address [address] [place] [address] Care Team Providers Care Optical Coating Technician Name Role Phone Unavailable Primary Care Provider Unavailabl e Encounter Details Date Type Department Care Team (Late st Contact Info) Description 03/25/2007 Historical Mammograp hy Encounter [facility]ISTOR[facility]V [address] [facility] [place] [address] Interface, See Report Social History [...] Associated Diagnosis Comments MAMMO HISTORICAL RESULT Routine 03/25/2007 10:44 AM EDT documented in this encounter Results * MAMMO HISTORICAL RESULT (03/25/2007 10:44 AM EDT) Anatomical Region Laterality Modality Breast Mammography 03/25/2007 10:4 4 AM EDT Narrative 03/25/2007 12:33 PM EDT ? [address] ??[place], [place] [address] ? NAME: SUPRIYA SALGADO ? : ??52 ??MR#: [id number] ? LOC: ?? CO ? AGE: 56Y ?? Pt type: CO ?Exam Date: 03/25/07 1045 ? SEX: F ?? AN#:[id number] ?Ck-in#: [id number] ? [facility] ? [address] ? [address] ? [place] ?[place] ?[address] ? Chk-in # ?? Order ?Exam ?[id number] ?? 0001 ? [id number] ??BC MAMM DIAGNOSTIC BILAT DIGIT PN ? Ord DiaMO FU ? BILATERAL DIAGNOSTIC DIGITAL MAMMOGRAM: ?? HISTORY: ??The patient is [id number]-ork and is being followed for bilateral calcifications. ??The patient denies any acute breast problems at this time. ??No family history of breast cancer. ?? TECHNIQUE: ??CC and MLO digital views of both breasts were performed. ?? COMPARISON USED: ??09/21/06. ?? FINDINGS: ??There are scattered fibroglandular densities bilaterally. ??No spiculated mass or suspicious cluster of microcalcifications is seen. Additional densities are centrally and towards the upper outer quadrants in a mildly nodular pattern which is stable. ??The punctate calcifications just beneath the right nipple was again identified on the CC view. ??The 3 mm area of very fine microcalcifications at the 6:30 position of the left breast and the anterior third is also identified. No new calcifications are seen. ?? IMPRESSION: ??Stable, bilateral calcifications bilaterally from 08/31. ?? Bi-Rads Category II, benign. ?? RECOMMENDATION: ??Yearly mammography, yearly physical exam and monthly self-breast exam. ?? The images were overread by iCAD detection system. ?? The findings were discussed with the patient at the time of her office ? FINAL ?CONTINUED ?Page ??1 ? RADIOLOGY REPORT ?[facility] ? [address] ??[place], [place] [address] ? NAME: SUPRIYA SALGADO ? : ??52 ??MR#: [id number] ? LOC: ?? CO ? AGE: 56Y ?? Pt type: CO ?Exam Date: 03/25/07 1045 ? SEX: F ?? AN#:[id number] ?Ck-in#: [id number] ? [facility],MITUL C ? [address] ? [address] ? [place] ?[place] ?[address] ? Checkin-Exam Code Summary ? [id number] visit and a letter describing these findings was given to the patient. ?/READ BY/ JANES L ATKINS ?/Released By/ JANES L ATKINS ?Released By Date/Time: ??04/30/07 1224 ?Senior Center Manager: ??MJP ? FINAL ? Page ??2 ? RADIOLOGY REPORT us See Report Interface IMG MAMMOGRAPHY ORDERABLES Final Result documented in this encounter Visit Diagnoses Not on filedocumented in this encounter
--- OUTSIDE RECORDS SUMMARY | 2024-10-13 13:27 | XMS_ITS | Encounter Summary ---
Author Organization [facility] Address [address] [place] [address] Care Team Providers Care Line Palletizer Name Role Phone Michael Baez MD Primary Care Provider + [phone] Encounter Details Date Type Department Care Team ([facility] st Contact Info) Description 09/15/2021 [facility] [place] [address] [facility], [address] [place] [address] Acacia Scott, LIQUOR GALLERY OPERATOR [address] [place] [address] Social History Tobacco Use Types [...] Telephone Encounter - Aliya Odell, PharmD - 09/16/2021 12:01 PM EDT Patient is aware that she needs to make an appt. She tried to call yesterday to make one and had toleave a message. Please call her back to schedule at your earliest convenience. Thanks, Specialty Pharmacy * Telephone Encounter - Aliya Odell PharmD - 09/15/2021 1:13 PM EDT [facility] requesting refills. documented in this encounter Plan of Treatment Upcoming Encounters Date Type Department Care Team (Late st Contact Info) Description 03/30/2025 2:00 PM EDT Office Visit [facility] [place] [address] [facility], [address] [place] [address] Acacia Scott, LIQUOR GALLERY OPERATOR [address] [place] [address] Scheduled Procedures Name Priority Associated Diagnoses Date/Ti me ARTHROPLASTY, HIP, TOTAL Arthritis of right hip documented as of this encounter Visit Diagnoses Not on filedocumented in this encounter Care Teams Line Palletizer Relationship Specialty Start Date End Date Michael Baez MD [address] [place] [address] PCP - General 04/08/21 documented as of this encounter
--- NOTE | 2024-10-13 14:47 | PC.NURSE ---
Addendum entered by Nataliya Brito RN 10/13/24 14:56: pt is lying on right side Original Note: 1420 pt began c/o increased soa. pt lung sounds contained inspiratory rhonchi and expiratory wheezes. contacted pulmonology to request prn nebs. order for nebs changed to q4h scheduled. pt given neb at 1423 per md order. pt reassessed at 1440 pt states that she is feeling slightly better. informed pt that staff will reassess again shortly. 1445 pt states that she is now feeling much better and is currently resting in her bed lying on her left side. pt is a/o x4. bowel sounds active in all quads. pt is able to get up to the bsc with standby assistance from staff.
--- NOTE | 2024-10-13 15:06 | P.PN_ITS ---
Subjective *Date: 10/13/24 *Time: 15:06 Interval history: Patient states she is not feeling that great this morning, continues to require 15 L Vapotherm. Improved after breathing treatments, steroids were started. Exam Data for Last 24 hours Vital signs and Labs for Last 24 Hours: Temp Pulse Resp BP Pulse Ox O2 Del Method O2 Flow Rate 98.3 F 74 20 154/100 H 95 Nasal Cannula 3 10/13/24 12:00 10/13/24 12:00 10/13/24 12:00 10/13/24 12:00 10/13/24 12:00 10/13/24 14:56 10/13/24 14:56 FiO2 40 10/13/24 08:00 Laboratory Results - last 24 hr 10/12/24 20:22: WBC 11.2 H, RBC 5.16, Hgb 16.0, Hct 47.3 H, MCV 91.8, MCH 31.1, MCHC 33.8, RDW 14.2, Plt Count 362, MPV 7.0 L, Neut % (Auto) 70.1, Lymph % (Auto) 23.1, Preston % (Auto) 6.2, Eos % (Auto) 0.0 L, Baso % (Auto) 0.5, Neut # (Auto) 7.9 H, Lymph # (Auto) 2.6, Preston # (Auto) 0.7, Eos # (Auto) 0.0, Baso # (Auto) 0.1, Sodium 141, Potassium 3.4 L, Chloride 111 H, Carbon Dioxide 24, Anion Gap 9.4, BUN 6 L, Creatinine 0.50 L, Estimated Creat Clear 55, Estimated GFR 121, Est GFR ( Amer) 147, Glucose 115 H, Calcium 7.8 L, Total Bilirubin 0.9, AST 27, ALT 14, Alkaline Phosphatase 62, Total Protein 6.4, Albumin 3.8, Globulin 2.6, Albumin/Globulin Ratio 1.5, HIV 1&2 Antibody Rapid Nonreactive 10/12/24 20:41: VBG pH 7.32, VBG pCO2 49.4, VBG pO2 68.1 H, VBG HCO3 24.9, VBG Total CO2 26.5, VBG O2 Saturation 93.4 H, VBG Base Excess -1.1, VBG Lactic Acid 2.0 10/12/24 20:47: Lactate 1.0, Magnesium 1.8, Troponin I < 0.01, NT-Pro-B Natriuret Pep 709 H, Chlamy pneumoniae PCR Not detected, Adenovirus (PCR) Not detected, B. pertussis DNA (PCR) Not detected, Coronavirus OC43 (PCR) Not detected, Coronavirus HKU1 (PCR) Not detected, Coronavirus 229E (PCR) Not detected, SARS-CoV-2 (PCR) Not detected, Coronavirus NL63 (PCR) Not detected, Human Metapneumovir PCR Not detected, Influenza A (H1) PCR Not detected, Influ A (H1N1/09) PCR Not detected, Influenza A (H3) PCR Not detected, Influenza Type A (PCR) Not detected, Influenza Type B (PCR) Not detected, M. pneumoniae (PCR) Not detected, Parainfluenza 1 (PCR) Not detected, Parainfluenza 2 (PCR) Not detected, Parainfluenza 3 (PCR) Not detected, Parainfluenza 4 (PCR) Not detected, RSV (PCR) Not detected, Entero/Rhino (PCR) Not detected 10/13/24 00:15: Troponin I 0.01 10/13/24 02:55: Troponin I 0.02 10/13/24 05:20: WBC 9.7, RBC 5.03, Hgb 15.9, Hct 45.7, MCV 90.8, MCH 31.5 H, MCHC 34.7, RDW 14.4, Plt Count 347, MPV 7.5, Neut % (Auto) 90.0 H, Lymph % (Auto) 6.0 L, Preston % (Auto) 3.7, Eos % (Auto) 0.1, Baso % (Auto) 0.2, Neut # (Auto) 8.7 H, Lymph # (Auto) 0.6 L, Preston # (Auto) 0.4, Eos # (Auto) 0.0, Baso # (Auto) 0.0, Total Counted 100, Neutrophils % (Manual) 90 H, Lymphocytes % (Manual) 9 L, Monocytes % (Manual) 1 L, Platelet Estimate Normal, RBC Morphology Normal, Sodium 140, Potassium 4.5 D, Chloride 108 H, Carbon Dioxide 23, Anion Gap 13.5, BUN 9 D, Creatinine 0.60, Estimated Creat Clear 55, Estimated GFR 98, Est GFR ( Amer) 119, Glucose 124 H, Calcium 7.9 L, Magnesium 2.4 H D, Total Bilirubin 0.9, AST 34 D, ALT 18 D, Alkaline Phosphatase 72, Total Protei n 7.2, Albumin 4.2 D, Globulin 3.0, Albumin/Globulin Ratio 1.4 10/13/24 06:00: VBG pH 7.40, VBG pCO2 39.4, VBG pO2 147.9 H, VBG HCO3 23.7, VBG Total CO2 25.0, VBG O2 Saturation 99.2 H, VBG Base Excess -1.1, VBG Lactic Acid 2.2 H 10/13/24 12:18: Lactate 0.9 I & O for Last 24 hours: Intake & Output 10/10/24 10/11/24 10/12/24 10/13/24 23:59 23:59 23:59 23:59 Intake Total 260 / 260 Output Total 0 / 0 1650 / 1650 Balance 0 / 0 -1390 / -1390 Weight 68.039 kg 68.311 kg Constitutional Constitutional: no acute distress *Routine HEENT Exam Head: Present normocephalic Eye: Present EOMI and PERRL ENT: Present mucous membranes moist *Routine Neck Exam Neck: Present supple; Absent lymphadenopathy *Routine Respiratory Exam Respiratory: Present rhonchi, wheezes and diminished air movement; Absent CTA bilaterally *Routine Cardiovascular Exam Cardiovascular: Present RRR *Routine Abdominal Exam Abdominal: Present soft and normoactive bowel sounds; Absent tenderness *Routine Extremities Exam Extremities: Absent cyanosis, clubbing or edema *Routine Skin Exam Skin: Present warm; Absent rash *Routine Neurological Exam Neurological: Present alert and oriented X3 Assessment and Plan *Assessment and plan (1) Acute hypoxemic respiratory failure: Status: Acute Category: Medical Code(s): J96.01 - Acute respiratory failure with hypoxia (2) Atrial fibrillation: Status: Acute Qualifiers: Atrial fibrillation type: persistent (not longstanding) Qualified Code(s): I48.19 - Other persistent atrial fibrillation Category: Medical Code(s): I48.91 - Unspecified atrial fibrillation (3) Dyspnea on exertion: Status: Chronic Category: Medical Code(s): R06.09 - Other forms of dyspnea (4) History of smoking 30 or more pack years: Status: Chronic Category: Social Hx Code(s): Z87.891 - Personal history of nicotine dependence (5) HTN (hypertension): Status: Chronic Qualifiers: Hypertension type: primary hypertension Qualified Code(s): I10 - Essential (primary) hypertension Category: Medical Code(s): I10 - Essential (primary) hypertension (6) Restless leg syndrome, uncontrolled: Status: Acute Category: Medical Code(s): G25.81 - Restless legs syndrome (7) Anxiety disorder: Status: Acute Qualifiers: Anxiety disorder type: unspecified anxiety disorder Qualified Code(s): F41.9 - Anxiety disorder, unspecified Category: Medical Code(s): F41.9 - Anxiety disorder, unspecified (8) COPD exacerbation: Status: Chronic Category: Medical Code(s): J44.1 - Chronic obstructive pulmonary disease with (acute) exacerbation (9) Asthma exacerbation: Status: Chronic Qualifiers: Asthma severity: moderate Asthma persistence: persistent Qualified Code(s): J45.41 - Moderate persistent asthma with (acute) exacerbation Category: Medical Code(s): J45.901 - Unspecified asthma with (acute) exacerbation Plan Supriya Andres is a 73-year-old female with a medical history significant for combined COPD and asthma, [id number] smoking history, A-fib, hypertension, restless leg syndrome presents with progressive shortness of breath and admitted for acute hypoxic respiratory failure secondary to asthma/COPD exacerbation. Continues to require inpatient management, weaned off 15 L Vapotherm this morning. #Acute hypoxic respiratory failure #Acute COPD, asthma exacerbation #Community-acquired pneumonia ? CTA chest reveals some consolidation in the right middle lobe perhaps precipitating exacerbation. Respiratory panel negative. ? Weaned off 15 L Vapotherm after DuoNebs this morning. Currently requiring 3 L nasal cannula. Wears 2 L as needed at home. ? Continues to have moderate diffuse rhonchi, wheezing. ? DuoNebs every 4 hours and as needed, Pulmicort twice daily. Restart home Breztri when appropriate. ? IV Solu-Medrol 40 mg day 1, consider switching to prednisone tomorrow. ? Consider IV magnesium if symptoms not improving in setting of asthma exacerbation. ? Ceftriaxone, azithromycin day 2/5. ? Pulmonology consulted, appreciate recommendations. Will continue breathing treatments, steroids, antibiotics. ? Follow-up sputum, blood cultures. #A-fib ? Currently rate controlled. ? Continue home bisoprolol 5 mg, Eliquis 5 mg twice daily. #Restless leg syndrome ? Continue home Requip 1 mg. #Insomnia ? Continue home temazepam, hold home trazodone as patient is very drowsy this morning. #Former tobacco smoker ? Quit 1.5 years ago. Full code DVT prophylaxis: Home Eliquis
[2024-10-13] MEDS: BUDESONIDE 0.5MG/2ML NEB 0.5 MG IH (18:39)
[2024-10-13] MEDS: ROPINIROLE 1MG TABLET 1 MG PO (20:13)
[2024-10-13] MEDS: TEMAZEPAM 15MG CAPSULE 15 MG PO (20:13)
[2024-10-14] VITALS: BP 119/86; PULSE 70; PULSE 77; RESP 18; TEMP 36.7; O2SAT 93
[2024-10-14] MEDS: IPRATROPIUM/ALBUTEROL 3 ML NEB IH ×3 (02:36→11:14)
[2024-10-14 04:00] VITALS: BP 136/84; PULSE 70; PULSE 81; RESP 18; TEMP 36.8; O2SAT 94; BMI 26.8
[2024-10-14 06:00] VITALS: O2SAT 94
[2024-10-14 06:10] VITALS: PULSE 72; PULSE 76; O2SAT 94
[2024-10-14] MEDS: BUDESONIDE 0.5MG/2ML NEB 0.5 MG IH (06:10)
[2024-10-14 06:47] LABS: Alanine Aminotransferase 26 U/L (12-78); Albumin/Globulin Ratio 1.5 (1.1-1.8); Alkaline Phosphatase 62 U/L (38-126); Anion Gap 12.1 mEq/L (5-15); Aspartate Amino Transferase 49 U/L (14-36); Bilirubin,Total 0.9 mg/dl (0.2-1.3); Blood Urea Nitrogen 13 mg/dl (7-17); Calcium 8.4 mg/dl (8.4-10.2); Carbon Dioxide 26 mmol/L (22.0-30.0); Chloride 107 mmol/L (98-107); Creatinine Clearance Estimated 57 mL/min (50-200); Estimated Glomerular Filt Rate 82 ml/min (>60); GFR (African American) 100 ML/MIN (>60); Globulin 2.7 g/dL (1.3-3.2); Glucose 101 mg/dl (74-100); Magnesium 2.3 mg/dl (1.6-2.3); Potassium 4.1 mmoL/L (3.5-5.1); Sodium 141 mmol/L (136-145); Total Protein,Serum 6.7 g/dl (6.3-8.2)
[2024-10-14 06:48] LABS: Basophils # 0.1 K/mm3 (0-0.2); Basophils % 0.5 % (0.1-2.0); Eosinophils % 0.2 % (0.1-12.0); Hematocrit 47.4 % (37.0-47.0); Hemoglobin 16.1 g/dL (12.2-16.2); Lymphocytes # 2.8 K/mm3 (0.7-4.5); Lymphocytes % 26.2 % (10-50); Mean Corpuscular HGB Conc 33.9 g/dL (31.8-35.4); Mean Corpuscular Hemoglobin 31.6 pg (27.0-31.2); Mean Corpuscular Volume 93.1 fl (81-99); Mean Platelet Volume 7.3 fl (7.4-10.4); Monocytes % 9.1 % (1.7-9.3); Platelet Count 380 K/mm3 (142-424); Red Blood Count 5.09 M/mm3 (4.20-5.40); Red Cell Distribution Width 14.4 % (11.5-17.5); White Blood Count 10.9 K/mm3 (4.8-10.8)
--- NOTE | 2024-10-14 07:55 | EXP.DC.SUM ---
General Admission date:: 10/12/24 Discharge date: 10/14/24 HPI HPI HPI: This 73-year-old female, who is a 55-year smoker. Was at home today doing well when suddenly within an hour got to where she was unable to breathe. She was brought to the emergency room and fairly significant distress. Respiratory rates in the 40s saturations in the 80s despite oxygen. Multiple things were used including BiPAP, medication which she used to include Haldol, morphine. To try to calm the patient.. These did not appear to work well but once the patient was on the floor and received a second dose of morphine began to improve. She also had received multiple nebulizer treatments.. While in the room the nurse noted that the patient finally coughed and sounded very wet in her upper airway, and then actually improved and her breathing become less labored after that Unsure if it was a combination of medications and DuoNebs, that cleared the secretions that had the patient feeling better also treating her anxiety. Or that she just had a mucous plug and it finally moved after all the treatment. Oxygen saturation is back to her baseline. The patient's history consist of large amounts of pain issues that are chronic., I talked to the patient she said she had quit her tramadol a week ago. She said she stopped it because it was not working. She said she only had the 1 prescription. She only had 1 prescription in the end of April and 1 in August. Question whether or not if she has been taking on a regular basis that this was tramadol withdrawals?? 1 source that he can take as little as 10 days depending upon your health. Patient is now much more comfortable in the room, still on oxygen. Patient still reports feeling short of breath, family in the room. Hospital Course Hospital Course Hospital Course: Supriya Andres is a 73-year-old female with a medical history significant for combined COPD and asthma, [id number] smoking history, A-fib, hypertension, restless leg syndrome presents with progressive shortness of breath and admitted for acute hypoxic respiratory failure secondary to asthma/COPD exacerbation. Admitted for medical management. Able to wean off BiPAP and Vapotherm to nasal cannula. Was tolerating 2 to 3 L by day of discharge. Pulmonology and cardiology assisted with care during admission. Will complete antibiotics and steroids after discharge. Given her significant improvement, stable to discharge home with close outpatient follow-up. Problems addressed as follows: #Acute hypoxic respiratory failure #Acute COPD, asthma exacerbation #Community-acquired pneumonia ? CTA chest reveals some consolidation in the right middle lobe perhaps precipitating exacerbation. Respiratory panel negative. Initially on BiPAP, weaned to Vapotherm, able to wean to nasal cannula after DuoNebs, steroids, antibiotics initiated. Continued to have adventitious lung sounds that gradually showed improvement during admission. Pulmonology consulted and assisted with care. Treated with Pulmicort twice daily, DuoNebs every 4 hours, resumed her Breztri. Initiated on ceftriaxone and azithromycin. Able to wean to azithromycin and cefdinir on day of discharge to complete 5 days total of antibiotics. Transition from Solu-Medrol to prednisone to complete 5 days of steroids. Sputum and blood cultures negative at time of discharge. Patient has nebulizer at home and solution. Encouraged her to use DuoNebs every 4-6 hours as needed for dyspnea. Has oxygen at home. Continue 2 L as needed, wean as tolerated. Was wearing it intermittently prior to admission. Follow-up with pulmonology in the coming weeks. #A-fib: # Heart failure with reduced ejection fraction - The patient was admitted to the hospital with acute hypoxemic respiratory failure. She was initially placed on BiPAP. Weaned to nasal cannula oxygen. Shortness of breath improved significantly with treatment for pneumonia/COPD exacerbation as above. Cardiology was consulted however to assist with management. Echocardiogram shows an ejection fraction of 40% with severe hypokinesis and mild AI and mild MR. This cardiomyopathy does appear to be new onset. Previous echocardiogram in 2021 showed a normal ejection fraction. The patient reports that she follows with cardiology at an outlying facility and she is not aware that she has ever had any heart failure. Due to her new onset cardiomyopathy we do recommend an outpatient ischemic evaluation once she has recovered from the pneumonia. This does not have to be done while she is in the hospital since she did rule out for an VT. 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 She states that she can get an appointment with her in the next week or 2. Will start her on Entresto 24/26 mg p.o. twice daily for HFrEF as well as Jardiance 10 mg daily. Currently rate controlled, Continue home bisoprolol 5 mg, Eliquis 5 mg twice daily. #Restless leg syndrome: Continue home Requip 1 mg. #Insomnia: Continue home temazepam, hold home trazodone as patient is very drowsy this morning. #Former tobacco smoker: Quit 1.5 years ago. Total time spent on discharge 32 minutes in counseling, documentation, chart review, and direct care with patient. Exam Data for Last 24 hours Vital signs and Labs for Last 24 Hours: Temp Pulse Resp BP Pulse Ox O2 Del Method O2 Flow Rate 98.3 F 76 18 136/84 94 L Nasal Cannula 3 10/14/24 04:00 10/14/24 06:10 10/14/24 04:00 10/14/24 04:00 10/14/24 06:10 10/14/24 06:42 10/14/24 06:42 FiO2 40 10/13/24 08:00 Laboratory Results - last 24 hr 10/13/24 05:20: Total Counted 100, Neutrophils % (Manual) 90 H, Lymphocytes % (Manual) 9 L, Monocytes % (Manual) 1 L, Platelet Estimate Normal, RBC Morphology Normal 10/13/24 06:00: VBG pH 7.40, VBG pCO2 39.4, VBG pO2 147.9 H, VBG HCO3 23.7, VBG Total CO2 25.0, VBG O2 Saturation 99.2 H, VBG Base Excess -1.1, VBG Lactic Acid 2.2 H 10/13/24 12:18: Lactate 0.9 10/14/24 06:08: WBC 10.9 H, RBC 5.09, Hgb 16.1, Hct 47.4 H, MCV 93.1, MCH 31.6 H, MCHC 33.9, RDW 14.4, Plt Count 380, MPV 7.3 L, Neut % (Auto) 64.0, Lymph % (Auto) 26.2, [place] % (Auto) 9.1, Eos % (Auto) 0.2, Baso % (Auto) 0.5, Neut # (Auto) 7.0, Lymph # (Auto) 2.8, [place] # (Auto) 1.0, Eos # (Auto) 0.0, Baso # (Auto) 0.1, Sodium 141, Potassium 4.1, Chloride 107, Carbon Dioxide 26, Anion Gap 12.1, BUN 13 D, Creatinine 0.70, Estimated Creat Clear 57, Estimated GFR 82, Est GFR ( Amer) 100, Glucose 101 H, Calcium 8.4, Magnesium 2.3, Total Bilirubin 0.9, AST 49 H D, ALT 26 D, Alkaline Phosphatase 62, Total Protein 6.7, Albumin 4.0, Globulin 2.7, Albumin/Globulin Ratio 1.5 I & O for Last 24 hours: Intake & Output 10/11/24 10/12/24 10/13/24 10/14/24 23:59 23:59 23:59 23:59 Intake Total 410 / 410 Output Total 0 / 0 1650 / 1650 Balance 0 / 0 -1240 / -1240 Weight 68.039 kg 68.311 kg 71.214 kg Microbiology Reports for the Last 24 Hours: Microbiology 10/13/24 09:40 Sputum - Expectorated Sputum Gram Stain - Final 10/12/24 20:47 Blood Blood Culture - Preliminary NO GROWTH AFTER 24 HOURS 10/12/24 20:47 Blood Blood Culture - Preliminary NO GROWTH AFTER 24 HOURS Constitutional Constitutional: no acute distress, average body habitus, chronically ill appearing and cooperative *Routine HEENT Exam Head: Present normocephalic Eye: Present EOMI and PERRL ENT: Present mucous membranes moist *Routine Neck Exam Neck: Present supple; Absent lymphadenopathy *Routine Respiratory Exam Respiratory: Present prolonged expiratory phase, wheezes and diminished air movement; Absent CTA bilaterally or rhonchi *Routine Cardiovascular Exam Cardiovascular: Present RRR *Routine Abdominal Exam Abdominal: Present soft and normoactive bowel sounds; Absent tenderness *Routine Rectal Exam Patient deferred: visual exam *Routine Exam Patient deferred: external exam *Routine Extremities Exam Extremities: Absent cyanosis, clubbing or edema *Routine Skin Exam Skin: Present intact and warm; Absent rash *Routine Neurological Exam Neurological: Present alert, oriented X3 and moving all extremities; Absent altered mental status Results Data Completed and Pending Labs on day of discharge: Labs from last 24 hours 10/14/24 10/13/24 10/13/24 06:08 12:18 06:00 WBC 10.9 H RBC 5.09 Hgb 16.1 Hct 47.4 H MCV 93.1 MCH 31.6 H MCHC 33.9 RDW 14.4 Plt Count 380 MPV 7.3 L Neut % (Auto) 64.0 Lymph % (Auto) 26.2 [place] % (Auto) 9.1 Eos % (Auto) 0.2 Baso % (Auto) 0.5 Neut # (Auto) 7.0 Lymph # (Auto) 2.8 [place] # (Auto) 1.0 Eos # (Auto) 0.0 Baso # (Auto) 0.1 Total Counted Neutrophils % (Manual) Lymphocytes % (Manual) Monocytes % (Manual) Platelet Estimate RBC Morphology VBG pH 7.40 VBG pCO2 39.4 VBG pO2 147.9 H VBG HCO3 23.7 VBG Total CO2 25.0 VBG O2 Saturation 99.2 H VBG Base Excess -1.1 VBG Lactic Acid 2.2 H Sodium 141 Potassium 4.1 Chloride 107 Carbon Dioxide 26 Anion Gap 12.1 BUN 13 D Creatinine 0.70 Estimated Creat Clear 57 Estimated GFR 82 Est GFR ( Amer) 100 Glucose 101 H Lactate 0.9 Calcium 8.4 Magnesium 2.3 Total Bilirubin 0.9 AST 49 H D ALT 26 D Alkaline Phosphatase 62 Total Protein 6.7 Albumin 4.0 Globulin 2.7 Albumin/Globulin Ratio 1.5 10/13/24 05:20 WBC RBC Hgb Hct MCV MCH MCHC RDW Plt Count MPV Neut % (Auto) Lymph % (Auto) [place] % (Auto) Eos % (Auto) Baso % (Auto) Neut # (Auto) Lymph # (Auto) [place] # (Auto) Eos # (Auto) Baso # (Auto) Total Counted 100 Neutrophils % (Manual) 90 H Lymphocytes % (Manual) 9 L Monocytes % (Manual) 1 L Platelet Estimate Normal RBC Morphology Normal VBG pH VBG pCO2 VBG pO2 VBG HCO3 VBG Total CO2 VBG O2 Saturation VBG Base Excess VBG Lactic Acid Sodium Potassium Chloride Carbon Dioxide Anion Gap BUN Creatinine Estimated Creat Clear Estimated GFR Est GFR ( Amer) Glucose Lactate Calcium Magnesium Total Bilirubin AST ALT Alkaline Phosphatase Total Protein Albumin Globulin Albumin/Globulin Ratio Preliminary micro results at discharge 10/12/24 20:47 Blood Culture - Preliminary Blood NO GROWTH AFTER 24 HOURS 10/12/24 20:47 Blood Culture - Preliminary Blood NO GROWTH AFTER 24 HOURS DS: Diagnosis Discharge Diagnosis (1) Acute hypoxemic respiratory failure: Status: Acute Code(s): J96.01 - Acute respiratory failure with hypoxia (2) Atrial fibrillation: Status: Acute Code(s): I48.91 - Unspecified atrial fibrillation Qualifiers: Atrial fibrillation type: persistent (not longstanding) Qualified Code(s): I48.19 - Other persistent atrial fibrillation (3) Dyspnea on exertion: Status: Chronic Code(s): R06.09 - Other forms of dyspnea (4) History of smoking 30 or more pack years: Status: Chronic Code(s): Z87.891 - Personal history of nicotine dependence (5) HTN (hypertension): Status: Chronic Code(s): I10 - Essential (primary) hypertension Qualifiers: Hypertension type: primary hypertension Qualified Code(s): I10 - Essential (primary) hypertension (6) Restless leg syndrome, uncontrolled: Status: Acute Code(s): G25.81 - Restless legs syndrome (7) Anxiety disorder: Status: Acute Code(s): F41.9 - Anxiety disorder, unspecified Qualifiers: Anxiety disorder type: unspecified anxiety disorder Qualified Code(s): F41.9 - Anxiety disorder, unspecified (8) COPD exacerbation: Status: Chronic Code(s): J44.1 - Chronic obstructive pulmonary disease with (acute) exacerbation (9) Asthma exacerbation: Status: Chronic Code(s): J45.901 - Unspecified asthma with (acute) exacerbation Qualifiers: Asthma persistence: persistent Asthma severity: moderate Qualified Code(s): J45.41 - Moderate persistent asthma with (acute) exacerbation Meds Home Medications and Allergies Home Medications ?Medication ?Instructions ?Recorded ?Confirmed ?Type albuterol sulfate 90 mcg/actuation 2 inh inhalation Q4-6H PRN 10/12/24 10/13/24 History aerosol inhaler Shortness of breath apixaban 5 mg tablet (Eliquis) 5 mg PO BID 10/12/24 10/13/24 History bisoprolol fumarate 5 mg tablet 5 mg PO DAILY 10/12/24 10/13/24 History escitalopram oxalate 20 mg tablet 20 mg PO DAILY 10/12/24 10/13/24 History famotidine 20 mg tablet 20 mg PO BID 10/12/24 10/13/24 History montelukast 10 mg tablet 10 mg PO DAILY 10/12/24 10/13/24 History ropinirole 1 mg tablet 3 mg PO HS 10/12/24 10/13/24 History temazepam 15 mg capsule 15 mg PO HS 10/12/24 10/13/24 History trazodone 50 mg tablet 50 mg PO HS 10/12/24 10/13/24 History vibegron 75 mg tablet (Gemtesa) 75 mg PO DAILY 10/12/24 10/13/24 History benralizumab 30 mg/mL subcutaneous 30 mg SQ Q56D 10/13/24 10/13/24 History auto-injector (Fasenra Pen) budesonide 160 mcg-glycopyr 9 2 inh inhalation BID 10/13/24 10/13/24 History mcg-formot 4.8 mcg/actuation HFA inhaler (Breztri Aerosphere) evolocumab 140 mg/mL subcutaneous 140 mg SQ Q14D 10/13/24 10/13/24 History pen injector (Repatha SureClick) fluticasone propionate 50 2 spray intranasal DAILY 10/13/24 10/13/24 History mcg/actuation nasal spray,suspension azithromycin 500 mg tablet 500 mg PO DAILY 2 days #2 tabs 10/14/24 Rx cefdinir 300 mg capsule 300 mg PO BID 2 days #4 caps 10/14/24 Rx empagliflozin 10 mg tablet 10 mg PO DAILY 30 days #30 tabs 10/14/24 Rx (Jardiance) ipratropium 0.5 mg-albuterol 3 mg 3 ml inhalation Q6HP PRN 30 days 10/14/24 Rx (2.5 mg base)/3 mL nebulization #0 mL soln prednisone 20 mg tablet 40 mg (2 x 20 mg) PO DAILY 2 days 10/14/24 Rx #4 tabs sacubitril 24 mg-valsartan 26 mg 1 tab PO BID 30 days #60 tabs 10/14/24 Rx tablet (Entresto) New Prescriptions to Start Prescriptions: azithromycin [facility]i [facility] cefdinir [facility] empagliflozin [Jardiance] [facility] prednisone [facility] sacubitril-valsartan [Entresto] [facility]i [facility] Allergies Allergy/AdvReac Type Severity Reaction Status Date / Time codeine Allergy Mild Gastrointestinal Verified 10/12/24 22:19 Upset diphenhydramine (From Allergy Mild Flushing Verified 10/12/24 22:19 Benadryl) Penicillins Allergy Mild Hives Verified 10/12/24 22:19 isosorbide AdvReac Intermediate Severe CHENEY Verified 06/24/24 10:58 diazepam (From Valium) AdvReac Mild Agitated Verified 06/24/24 10:58 Discharge Plan Disposition Patient Disposition: Home, Self-Care Discharge Order Discharge Orders: Discharge Order (Routine); Ordered 10/14/24 Ordered By: Phi Green Follow up Plan Follow up with: Virgilio Nguyễn MD [Physician] - 10/28/24 1:00 pm Michael Baez MD [Primary Care Provider] - 10/20/24 11:15 am Ramu Christiansen MD [Staff Physician] - 10/27/24 9:30 am Prescriptions/Medication Reconciliation: New Entresto 24-26 mg Tablet 1 tab PO BID 30 Days Qty: 60 0RF azithromycin 500 mg tablet 500 mg PO DAILY 2 Days Qty: 2 0RF cefdinir 300 mg capsule 300 mg PO BID 2 Days Qty: 4 0RF prednisone 20 mg tablet 40 mg PO DAILY 2 Days Qty: 4 0RF ipratropium-albuterol 0.5 mg-3 mg(2.5 mg base)/3 mL Solution For Nebulization 3 ml inhalation Q6HP PRN30 Days Qty: 0 0RF Jardiance 10 mg Tablet 10 mg PO DAILY 30 Days Qty: 30 0RF Continued ropinirole 1 mg tablet 3 mg PO HS trazodone 50 mg tablet 50 mg PO HS bisoprolol fumarate 5 mg tablet 5 mg PO DAILY famotidine 20 mg tablet 20 mg PO BID temazepam 15 mg capsule 15 mg PO HS montelukast 10 mg tablet 10 mg PO DAILY albuterol sulfate 90 mcg/actuation HFA aerosol inhaler 2 inh INHALATION Q4-6H PRN (Reason: Shortness of breath) escitalopram oxalate 20 mg tablet 20 mg PO DAILY Eliquis 5 mg tablet 5 mg PO BID Gemtesa 75 mg tablet 75 mg PO DAILY Fasenra Pen 30 mg/mL auto-injector 30 mg SQ Q56D Breztri Aerosphere 160-9-4.8 mcg/actuation HFA aerosol inhaler 2 inh INHALATION BID fluticasone propionate 50 mcg/actuation spray,suspension 2 spray INTRANASAL DAILY Repatha SureClick 140 mg/mL pen injector 140 mg SQ Q14D Problem Reconciliation Problems Reviewed?: Yes Patient Discharge Instructions ACTIVITY: Continue current activity DIET: continue same diet Patient Instructions: DI for Respiratory Failure Print Language: Japanese Providers Primary Care Provider: Michael Baez Admit Provider: Shahid Nunez Attending Provider: Shahid Nunez
[2024-10-14 08:00] VITALS: BP 122/78; PULSE 70; PULSE 75; RESP 20; TEMP 37.1; O2SAT 97
[2024-10-14 09:35] LABS: Chol/HDL Ratio 1.8 (1-3.5); Cholesterol 160 mg/dl (140-200); HDL Cholesterol 87 mg/dl (40-60); Triglycerides 112 mg/dl (30-150); VLDL Cholesterol 22 mg/dL (0-40)
[2024-10-14] MEDS: BISOPROLOL 5MG TABLET 5 MG PO (09:38)
[2024-10-14] MEDS: AZITHROMYCIN 250MG TABLET 500 MG PO (09:38)
[2024-10-14] MEDS: CITALOPRAM 40MG TABLET 40 MG PO (09:38)
[2024-10-14] MEDS: APIXABAN 5MG TABLET 5 MG PO (09:38)
[2024-10-14] MEDS: METHYLPREDNISOLONE SOD SUCC 40MG VIAL 40 MG IV (09:38)
[2024-10-14] MEDS: CEFTRIAXONE 1 GM 1 GM in 0.9 % SODIUM CHLORIDE 50 ML IV (09:39)
[2024-10-14 09:46] LABS: Direct LDL Cholesterol 42.29 mg/dL (100-129)
--- NOTE | 2024-10-14 10:46 | P.PN_ITS ---
Subjective *Date: 10/14/24 *Time: 12:15 Interval history: No acute respiratory events overnight. Patient admits continued improvement in her respiratory symptoms. Pulmonology Exam Inpatient Vital signs and Labs for Last 24 Hours: Temp Pulse Resp BP Pulse Ox O2 Del Method O2 Flow Rate 98.7 F 75 20 122/78 97 Nasal Cannula 2.5 10/14/24 08:00 10/14/24 08:00 10/14/24 08:00 10/14/24 08:00 10/14/24 08:00 10/14/24 09:00 10/14/24 09:00 FiO2 40 10/13/24 08:00 Laboratory Results - last 24 hr 10/13/24 12:18: Lactate 0.9 10/14/24 06:08: WBC 10.9 H, RBC 5.09, Hgb 16.1, Hct 47.4 H, MCV 93.1, MCH 31.6 H , MCHC 33.9, RDW 14.4, Plt Count 380, MPV 7.3 L, Neut % (Auto) 64.0, Lymph % (Auto) 26.2, [place] % (Auto) 9.1, Eos % (Auto) 0.2, Baso % (Auto) 0.5, Neut # (Auto) 7.0, Lymph # (Auto) 2.8, [place] # (Auto) 1.0, Eos # (Auto) 0.0, Baso # (Auto) 0.1, Sodium 141, Potassium 4.1, Chloride 107, Carbon Dioxide 26, Anion Gap 12.1, BUN 13 D, Creatinine 0.70, Estimated Creat Clear 57, Estimated GFR 82, Est GFR ( Amer) 100, Glucose 101 H, Calcium 8.4, Magnesium 2.3, Total Bilirubin 0.9, AST 49 H D, ALT 26 D, Alkaline Phosphatase 62, Total Protein 6.7, Albumin 4.0, Globulin 2.7, Albumin/Globulin Ratio 1.5, Triglycerides 112, Cholesterol 160, LDL Cholesterol Direct 42.29 L, VLDL Cholesterol 22, HDL Cholesterol 87 H, Cholesterol/HDL Ratio 1.8 Temp Pulse Resp BP Pulse Ox O2 Del Method O2 Flow Rate 98.2 F 84 18 141/95 H 93 L Nasal Cannula 3 10/13/24 08:00 10/13/24 09:40 10/13/24 09:40 10/13/24 08:00 10/13/24 09:35 10/13/24 09:35 10/13/24 09:35 FiO2 40 10/13/24 08:00 Laboratory Results - last 24 hr 10/12/24 20:22: WBC 11.2 H, RBC 5.16, Hgb 16.0, Hct 47.3 H, MCV 91.8, MCH 31.1, MCHC 33.8, RDW 14.2, Plt Count 362, MPV 7.0 L, Neut % (Auto) 70.1, Lymph % (Auto) 23.1, [place] % (Auto) 6.2, Eos % (Auto) 0.0 L, Baso % (Auto) 0.5, Neut # (Auto) 7.9 H, Lymph # (Auto) 2.6, [place] # (Auto) 0.7, Eos # (Auto) 0.0, Baso # (Auto) 0.1, Sodium 141, Potassium 3.4 L, Chloride 111 H, Carbon Dioxide 24, An ion Gap 9.4, BUN 6 L, Creatinine 0.50 L, Estimated Creat Clear 55, Estimated GFR 121, Est GFR ( Amer) 147, Glucose 115 H, Calcium 7.8 L, Total Bilirubin 0.9, AST 27, ALT 14, Alkaline Phosphatase 62, Total Protein 6.4, Albumin 3.8, Globulin 2.6, Albumin/Globulin Ratio 1.5, HIV 1&2 Antibody Rapid Nonreactive 10/12/24 20:41: VBG pH 7.32, VBG pCO2 49.4, VBG pO2 68.1 H, VBG HCO3 24.9, VBG Total CO2 26.5, VBG O2 Saturation 93.4 H, VBG Base Excess -1.1, VBG Lactic Acid 2.0 10/12/24 20:47: Lactate 1.0, Magnesium 1.8, Troponin I < 0.01, NT-Pro-B Natriuret Pep 709 H, Chlamy pneumoniae PCR Not detected, Adenovirus (PCR) Not detected, B. pertussis DNA (PCR) Not detected, Coronavirus OC43 (PCR) Not detected, Coronavirus HKU1 (PCR) Not detected, Coronavirus 229E (PCR) Not detected, SARS-CoV-2 (PCR) Not detected, Coronavirus NL63 (PCR) Not detected, Human Metapneumovir PCR Not detected, Influenza A (H1) PCR Not detected, Influ A (H1N1/09) PCR Not detected, Influenza A (H3) PCR Not detected, Influenza Type A (PCR) Not detected, Influenza Type B (PCR) Not detected, M. pneumoniae (PCR) Not detected, Parainfluenza 1 (PCR) Not detected, Parainfluenza 2 (PCR) Not detected, Parainfluenza 3 (PCR) Not detected, Parainfluenza 4 (PCR) Not detected, RSV (PCR) Not detected, Entero/Rhino (PCR) Not detected 10/13/24 00:15: Troponin I 0.01 10/13/24 02:55: Troponin I 0.02 10/13/24 05:20: WBC 9.7, RBC 5.03, Hgb 15.9, Hct 45.7, MCV 90.8, MCH 31.5 H, MCHC 34.7, RDW 14.4, Plt Count 347, MPV 7.5, Neut % (Auto) 90.0 H, Lymph % (Auto) 6.0 L, [place] % (Auto) 3.7, Eos % (Auto) 0.1, Baso % (Auto) 0.2, Neut # (Auto) 8.7 H, Lymph # (Auto) 0.6 L, [place] # (Auto) 0.4, Eos # (Auto) 0.0, Baso # (Auto) 0.0, Total Counted 100, Neutrophils % (Manual) 90 H, Lymphocytes % (Manual) 9 L, Monocytes % (Manual) 1 L, Platelet Estimate Normal, RBC Morphology Normal, Sodium 140, Potassium 4.5 D, Chloride 108 H, Carbon Dioxide 23, Anion Gap 13.5, BUN 9 D, Creatinine 0.60, Estimated Creat Clear 55, Estimated GFR 98, Est GFR ( Amer) 119, Glucose 124 H, Calcium 7.9 L, Magnesium 2.4 H D, Total Bilirubin 0.9, AST 34 D, ALT 18 D, Alkaline Phosphatase 72, Total Protein 7.2, Albumin 4.2 D, Globulin 3.0, Albumin/Globulin Ratio 1.4 10/13/24 06:00: VBG pH 7.40, VBG pCO2 39.4, VBG pO2 147.9 H, VBG HCO3 23.7, VBG Total CO2 25.0, VBG O2 Saturation 99.2 H, VBG Base Excess -1.1, VBG Lactic Acid 2.2 H I & O for Labs for Last 24 Hours: Intake & Output 10/11/24 10/12/24 10/13/24 10/14/24 23:59 23:59 23:59 23:59 Intake Total 410 / 410 Output Total 0 / 0 1650 / 1650 Balance 0 / 0 -1240 / -1240 Weight 150 lb 150 lb 9.6 oz 157 lb Intake & Output 10/10/24 10/11/24 10/12/24 10/13/24 23:59 23:59 23:59 23:59 Intake Total 60 / 60 Output Total 0 / 0 1650 / 1650 Balance 0 / 0 -1590 / -1590 Weight 150 lb 150 lb 9.6 oz Microbiology Reports for the Last 24 Hours: Microbiology 10/13/24 09:40 Sputum - Expectorated Sputum Gram Stain - Final 10/12/24 20:47 Blood Blood Culture - Preliminary NO GROWTH AFTER 24 HOURS 10/12/24 20:47 Blood Blood Culture - Preliminary NO GROWTH AFTER 24 HOURS Constitutional: Present moderate distress Head: Present normocephalic and atraumatic ENT: Present normal exam, normal oropharynx and mucous membranes moist Neck: Present normal inspection and full ROM Respiratory: Present respiratory distress, diminished air movement and able to speak in complete sentences; Absent prolonged expiratory phase or wheezes Cardiac: Present S1/S2, Tachycardia and radial pulses present GI: Present soft and distention; Absent tenderness or guarding Rectal (female): Present deferred (female): Present deferred Skin: Present intact; Absent cyanosis or jaundice Neuro: Present alert, awake and oriented x 3 Extremities: Present normal inspection; Absent clubbing or cyanosis Psychiatric: Present normal affect and cooperative Assessment and Plan *Assessment and plan (1) Acute hypoxemic respiratory failure: Status: Acute Category: Medical Code(s): J96.01 - Acute respiratory failure with hypoxia (2) Asthma exacerbation: Status: Chronic Qualifiers: Asthma persistence: persistent Asthma severity: moderate Qualified Code(s): J45.41 - Moderate persistent asthma with (acute) exacerbation Category: Medical Code(s): J45.901 - Unspecified asthma with (acute) exacerbation (3) Pneumonia: Status: Chronic Category: Medical Code(s): J18.9 - Pneumonia, unspecified organism Plan Ms. Andres is a 73-year-old female [id number] smoking history asthma COPD overlap syndrome eosinophilia allergic rhinitis presented to the ER with sudden onset worsening shortness of breath and pulmonary was called for further evaluation and management. She at baseline not using any oxygen supplementation. Patient admits gradually worsening respiratory status for the last 4 to 5 days. Denies any known sick contacts. Admits worsening cough and productive phlegm, greenish Febrile. Hemodynamically stable. Mild neutrophilic predominant leukocytosis. Blood gas upon admission did not show any evidence of hypoxic/hypercarbic respiratory failure. Comprehensive respiratory viral PCR panel negative. CT PE protocol suboptimal, no obvious segmental pulmonary embolism noted. Faint infiltrate in the right middle lobe. No other consolidative/airspace changes noted. Patient being managed for CAP and COPD exacerbation with ceftriaxone and azithromycin, nebulization therapies and steroids. Patient just received nebulization therapies but no significant wheezing noted on auscultation. New oxygen requirements. Interval update: No acute respiratory events overnight. Improving oxygen requirements, weaned to room air this morning. No significant wheezing noted on auscultation. Sputum cultures 2021 E. coli and Pseudomonas resistant to levofloxacin. Given clinical improvement we will continue current antibiotics Plan: Continue oxygen supplementation only as needed maintain O2 saturation around 90% to maintain O2 saturation goal of 90% and above. Weaned to room air DuoNebs every 4 hours along with Pulmicort every 12 scheduled Continue ceftriaxone azithromycin Continue methylprednisolone 40 IV Q24 hrs Incentive spirometry and flutter valve Thank you for involving pulmonary in this patient care. #Patient can be discharged home from pulmonary standpoint with her home inhaler therapy along with DuoNebs 4 times daily as needed and to continue prednisone for a total of 5 days. Will follow the patient in pulmonary clinic 2 weeks post discharge.
[2024-10-14] MEDS: SACUBITRIL/VALSARTAN 24-26MG TABLET 1 EACH PO (11:20)
--- NOTE | 2024-10-14 11:26 | EXP.CARD.CON ---
History of Present Illness History of Present Illness Consult date: 10/14/24 Requesting physician: Phi Green Consult reason: shortness of breath Chief complaint: SOA History of present illness: This is a 73-year-old white female who presented to the emergency department with complaints of shortness of breath and anxiety. The patient states that she has been having shortness of breath for approximately a week and then the day of admission she suddenly got significantly worse and was unable to breathe. The patient states that she just had not been feeling well for about a week and the shortness of breath was progressively worsening and then the day of admission it became profoundly severe and she felt as if she were going to . The patient was in significant distress when she got to the emergency department. Her respiratory rates were in the 40s and her oxygen saturations were in the 80s despite being put on oxygen. She was then placed on BiPAP and was given multiple medications. This morning she states that her shortness of breath is significantly improved. She states that when her shortness of breath was at its worst she was having a lot of tightness in her chest. She states that her shortness of breath is associated with a cough and she was coughing up what looked like cement, she states that it was [place] in color and very thick and green knee almost. The patient states that she no longer has any chest tightness. Her shortness of breath is significantly improved. She denies any lower extremity edema. She denies any fever, chills, nausea, vomiting or diarrhea. The patient ruled out for an DE. [facility] Disclaimer: The information contained in this section may have been updated after the patient was seen, as this information can be updated by other users. Medical History (Updated 10/14/24 @ 11:32 by Amelia Wright APRN) CAD (coronary artery disease) Hyperlipidemia Atrial fibrillation Hypertension Abnormal echocardiogram HFrEF (heart failure with reduced ejection fraction) Thoracic compression fracture Former smoker Fatigue Angina pectoris Gastroenteritis COVID-19 COPD exacerbation Acute costochondritis COPD exacerbation COPD with acute exacerbation Restless leg syndrome Enterocolitis Peripheral eosinophilia Severe persistent asthma Stopped smoking with greater than 30 pack year history Centrilobular emphysema Asthma exacerbation Pneumonia Eosinophilia (Unknown) Allergic rhinitis Dyspnea on exertion Encounter for screening for malignant neoplasm of lung in current smoker with 30 pack year history or greater Asthma History of smoking 30 or more pack years Acute respiratory failure with hypoxia COPD exacerbation Atrial fibrillation Anxiety Depression COPD (chronic obstructive pulmonary disease) SOB (shortness of breath) COPD (chronic obstructive pulmonary disease) Surgical History (Updated 10/13/24 @ 02:00 by Franky Jones APRN) Hx of CABG Status post ablation of atrial fibrillation History of colon resection History of bilateral knee replacement H/O: hysterectomy Family History Other No significant family history Social History (Updated 10/13/24 @ 00:01 by Maria T Stratton RN) Smoking Status: Former smoker years smoked: 56 how long ago did patient quit smoking: july 2022 quit status: quit date established second hand exposure: No alcohol intake: never substance use type: denies use current occupational status: retired and other Travel in the last 8 weeks: None household members: spouse and children housing: house lives independently: No marital status: education level: college current occupational exposures/hazards: No caffeine: Yes Review of Systems Review of Systems Review of systems:: pertinent systems reviewed and negative unless documented below Constitutional Constitutional: Reports system reviewed and no additional complaints, except as documented, Reports fatigue and Reports lethargy Eyes Eyes: Reports system reviewed and no additional complaints, except as documented ENT Ears, Nose, Mouth, and Throat: Reports system reviewed and no additional complaints, except as documented *Cardiovascular Cardiovascular: Reports system reviewed and no additional complaints, except as documented, Reports chest pain, Reports chest pain at rest, Reports chest pain with activity, Reports dyspnea, Reports dyspnea on exertion, Reports orthopnea and Reports paroxysmal nocturnal dyspnea *Respiratory Respiratory: Reports system reviewed and no additional complaints, except as documented, Reports dyspnea and Reports dyspnea on exertion *Gastrointestinal Gastrointestinal: Reports system reviewed and no additional complaints, except as documented *Genitourinary Genitourinary: Reports system reviewed and no additional complaints, except as documented *Musculoskeletal Musculoskeletal: Reports system reviewed and no additional complaints, except as documented Integumentary/Breasts Skin/Breast: Reports system reviewed and no additional complaints, except as documented *Neurologic Neurologic: Reports system reviewed and no additional complaints, except as documented and Reports as per HPI Psychiatric Psychiatric: Reports system reviewed and no additional complaints, except as documented and Reports anxiety Endocrine Endocrine: Reports system reviewed and no additional complaints, except as documented and Reports fatigue Hematologic/Lymphatic Hematologic/Lymphatic: Reports system reviewed and no additional complaints, except as documented Allergic/Immunologic Allergic/Immunologic: Reports system reviewed and no additional complaints, except as documented Exam Data for Last 24 hours Vital signs and Labs for Last 24 Hours: Temp Pulse Resp BP Pulse Ox O2 Del Method O2 Flow Rate 98.7 F 75 20 122/78 97 Nasal Cannula 2.5 10/14/24 08:00 10/14/24 08:00 10/14/24 08:00 10/14/24 08:00 10/14/24 08:00 10/14/24 11:00 10/14/24 11:00 FiO2 40 10/13/24 08:00 Laboratory Results - last 24 hr 10/13/24 12:18: Lactate 0.9 10/14/24 06:08: WBC 10.9 H, RBC 5.09, Hgb 16.1, Hct 47.4 H, MCV 93.1, MCH 31.6 H, MCHC 33.9, RDW 14.4, Plt Count 380, MPV 7.3 L, Neut % (Auto) 64.0, Lymph % (Auto) 26.2, [place] % (Auto) 9.1, Eos % (Auto) 0.2, Baso % (Auto) 0.5, Neut # (Auto) 7.0, Lymph # (Auto) 2.8, [place] # (Auto) 1.0, Eos # (Auto) 0.0, Baso # (Auto) 0.1, Sodium 141, Potassium 4.1, Chloride 107, Carbon Dioxide 26, Anion Gap 12.1, BUN 13 D, Creatinine 0.70, Estimated Creat Clear 57, Estimated GFR 82, Est GFR ( Amer) 100, Glucose 101 H, Calcium 8.4, Magnesium 2.3, Total Bilirubin 0.9, AST 49 H D, ALT 26 D, Alkaline Phosphatase 62, Total Protein 6.7, Albumin 4.0, Globulin 2.7, Albumin/Globulin Ratio 1.5, Triglycerides 112, Cholesterol 160, LDL Cholesterol Direct 42.29 L, VLDL Cholesterol 22, HDL Cholesterol 87 H, Cholesterol/HDL Ratio 1.8 I & O for Last 24 hours: Intake & Output 10/11/24 10/12/24 10/13/24 10/14/24 23:59 23:59 23:59 23:59 Intake Total 410 / 410 Output Total 0 / 0 1650 / 1650 Balance 0 / 0 -1240 / -1240 Weight 150 lb 150 lb 9.6 oz 157 lb Microbiology Reports for the Last 24 Hours: Microbiology 10/13/24 09:40 Sputum - Expectorated Sputum Gram Stain - Final 10/12/24 20:47 Blood Blood Culture - Preliminary NO GROWTH AFTER 24 HOURS 10/12/24 20:47 Blood Blood Culture - Preliminary NO GROWTH AFTER 24 HOURS Narrative: Echo shows: Mild to moderate reduction in LV systolic function (LVEF 40%). Severe hypokinesis of the septal and anteroseptal LV [place]. Normal RV size and function.. Mild biatrial dilation. Mild AI, mild MR. Constitutional Constitutional: no acute distress and average body habitus *Routine HEENT Exam Head: Present normocephalic and atraumatic ENT: Present mucous membranes moist *Routine Neck Exam Neck: Present supple, full ROM and normal carotid upstroke; Absent JVD, carotid bruit or lymphadenopathy *Routine Respiratory Exam Respiratory: Present rhonchi, wheezes, normal respiratory effort, able to speak in complete sentences and symmetric chest movement *Routine Cardiovascular Exam Cardiovascular: Present RRR, Normal S1 and Normal S2; Absent murmur or gallop *Routine Abdominal Exam Abdominal: Present soft and normoactive bowel sounds; Absent tenderness, distended or organomegaly *Routine Extremities Exam Extremities: Present full ROM, pulses intact and normal capillary refill; Absent cyanosis, clubbing or edema *Routine Skin Exam Skin: Present intact and warm; Absent erythema *Routine Neurological Exam Neurological: Present alert, oriented X3 and CN II-XII intact; Absent sensory deficit or motor deficit Routine Psychiatric Exam Psychiatric: Present normal affect Meds Home Medications and Allergies Home Medications ?Medication ?Instructions ?Recorded ?Confirmed ?Type albuterol sulfate 90 mcg/actuation 2 inh inhalation Q4-6H PRN 10/12/24 10/13/24 History aerosol inhaler Shortness of breath apixaban 5 mg tablet (Eliquis) 5 mg PO BID 10/12/24 10/13/24 History bisoprolol fumarate 5 mg tablet 5 mg PO DAILY 10/12/24 10/13/24 History escitalopram oxalate 20 mg tablet 20 mg PO DAILY 10/12/24 10/13/24 History famotidine 20 mg tablet 20 mg PO BID 10/12/24 10/13/24 History montelukast 10 mg tablet 10 mg PO DAILY 10/12/24 10/13/24 History ropinirole 1 mg tablet 3 mg PO HS 10/12/24 10/13/24 History temazepam 15 mg capsule 15 mg PO HS 10/12/24 10/13/24 History trazodone 50 mg tablet 50 mg PO HS 10/12/24 10/13/24 History vibegron 75 mg tablet (Gemtesa) 75 mg PO DAILY 10/12/24 10/13/24 History benralizumab 30 mg/mL subcutaneous 30 mg SQ Q56D 10/13/24 10/13/24 History auto-injector (Fasenra Pen) budesonide 160 mcg-glycopyr 9 2 inh inhalation BID 10/13/24 10/13/24 History mcg-formot 4.8 mcg/actuation HFA inhaler (Breztri Aerosphere) evolocumab 140 mg/mL subcutaneous 140 mg SQ Q14D 10/13/24 10/13/24 History pen injector (Repatha SureClick) fluticasone propionate 50 2 spray intranasal DAILY 10/13/24 10/13/24 History mcg/actuation nasal spray,suspension New Prescriptions to Start Prescriptions: Allergies Allergy/AdvReac Type Severity Reaction Status Date / Time codeine Allergy Mild Gastrointestinal Verified 10/12/24 22:19 Upset diphenhydramine (From Allergy Mild Flushing Verified 10/12/24 22:19 Benadryl) Penicillins Allergy Mild Hives Verified 10/12/24 22:19 isosorbide AdvReac Intermediate Severe [place] Verified 06/24/24 10:58 diazepam (From Valium) AdvReac Mild Agitated Verified 06/24/24 10:58 Assessment and Plan *Assessment and plan (1) HFrEF (heart failure with reduced ejection fraction): Status: Acute Category: Medical Code(s): I50.20 - Unspecified systolic (congestive) heart failure (2) Abnormal echocardiogram: Status: Acute Category: Medical Code(s): R93.1 - Abnormal findings on diagnostic imaging of heart and coronary circulation (3) Anxiety disorder: Status: Acute Qualifiers: Anxiety disorder type: unspecified anxiety disorder Qualified Code(s): F41.9 - Anxiety disorder, unspecified Category: Medical Code(s): F41.9 - Anxiety disorder, unspecified (4) Acute hypoxemic respiratory failure: Status: Acute Category: Medical Code(s): J96.01 - Acute respiratory failure with hypoxia (5) Hypertension, uncontrolled: Status: Acute Category: Medical Code(s): I10 - Essential (primary) hypertension (6) Centrilobular emphysema: Status: Chronic Category: Medical Code(s): J43.2 - Centrilobular emphysema (7) Asthma exacerbation: Status: Chronic Qualifiers: Asthma severity: moderate Asthma persistence: persistent Qualified Code(s): J45.41 - Moderate persistent asthma with (acute) exacerbation Category: Medical Code(s): J45.901 - Unspecified asthma with (acute) exacerbation (8) CAD (coronary artery disease): Status: Chronic Qualifiers: Coronary Disease-Associated Artery/Lesion type: [place] artery [place] vs. transplanted heart: [place] heart Associated angina: without angina Qualified Code(s): I25.10 - Atherosclerotic heart disease of [place] coronary artery without angina pectoris Category: Medical Code(s): I25.10 - Atherosclerotic heart disease of [place] coronary artery without angina pectoris (9) HLD (hyperlipidemia): Status: Chronic Qualifiers: Hyperlipidemia type: mixed hyperlipidemia Qualified Code(s): E78.2 - Mixed hyperlipidemia Category: Medical Code(s): E78.5 - Hyperlipidemia, unspecified (10) HTN (hypertension): Status: Chronic Qualifiers: Hypertension type: primary hypertension Qualified Code(s): I10 - Essential (primary) hypertension Category: Medical Code(s): I10 - Essential (primary) hypertension (11) Atrial fibrillation: Status: Chronic Qualifiers: Atrial fibrillation type: paroxysmal Qualified Code(s): I48.0 - Paroxysmal atrial fibrillation Category: Medical Code(s): I48.91 - Unspecified atrial fibrillation (12) SOB (shortness of breath): Status: Chronic Category: Medical Code(s): R06.02 - Shortness of breath Plan Plan: 1. The patient was admitted to the hospital with acute hypoxemic respiratory failure. She was initially placed on BiPAP and is now on nasal cannula. She states her shortness of breath is significantly improved. She has known COPD and asthma. This is being managed by the hospitalist and pulmonology. Will defer. 2. Echocardiogram shows an ejection fraction of 40% with severe hypokinesis and mild AI and mild MR. This cardiomyopathy does appear to be new onset. Previous echocardiogram in 2021 showed a normal ejection fraction. The patient reports that she follows with cardiology at an outlying facility and she is not aware that she has ever had any heart failure. Due to her new onset cardiomyopathy we do recommend an outpatient ischemic evaluation once she has recovered from the pneumonia. This does not have to be done while she is in the hospital since she did rule out for an DE. The patient would like to have this outpatient ischemic evaluation completed with her primary registered vascular technologist (rvt) which is reasonable. She states that she can get an appointment with her in the next week or 2. 3. Will start her on Entresto 24/26 mg p.o. twice daily for HFrEF as well as Jardiance 10 mg daily. 4. Continue bisoprolol 5 mg daily for HFrEF. 5. The patient does have paroxysmal atrial fibrillation. She is currently in sinus rhythm. Continue Eliquis for long-term anticoagulation. 6. Her blood pressure is well-controlled. 7. Her LDL goal is less than 55. Her LDL is 42. She is on Repatha. 8. No further recommendations at this time from a cardiac standpoint. The patient will need to follow-up in cardiology clinic in 1 week on an outpatient basis with her primary registered vascular technologist (rvt) to have an outpatient ischemic evaluation completed. 9. The patient can be discharged on the following cardiac medications: Bisoprolol 5 mg p.o. daily, Repatha injections as directed, Eliquis 5 mg p.o. twice daily, Jardiance 10 mg daily, Eliquis 5 mg p.o. twice daily. Thank you for the opportunity to help participate in the care of this patient. All recommendations and orders are per Dr. Christiansen.
[2024-10-14 12:00] VITALS: BP 148/90; PULSE 80; PULSE 87; RESP 22; TEMP 37; O2SAT 91
[2024-10-14] MEDS: EMPAGLIFLOZIN 10MG TABLET 10 MG PO (12:11)
--- NOTE | 2024-10-14 12:21 | PC.NURSE ---
ra o2 sat 88%
--- NOTE | 2024-10-14 12:50 | CARE MANAGER ---
Ordered portable O2 tank from [facility] for patient. She is current patient with them, but her tank at home was empty.
--- NOTE | 2024-10-15 10:08 | SW/DCPLANNER ---
Called patient and no answer. Left message on patients voicemail with my name and call back number. Justina Jameson
--- NOTE | 2024-10-15 14:43 | SW/DCPLANNER ---
Spoke with patient on the phone. Patient stated that she is aware of her follow up appointments and that she is doing well and taking it day by day. She stated that there is no concerns or questions at this time. Justina Jameson
== END 2024-10-14 14:32 | disposition home or self-care (01) | DRG 189 ==
LOC: ER 20:37 → 2ND 22:55
PROVIDERS: Nurse Practitioner; Nurse Practitioner Family; Admitting Provider Student in an Organized Health Care Education/Training Program; Emergency Provider Emergency Medicine; PCP Internal Medicine Adolescent Medicine; Visit Provider Student in an Organized Health Care Education/Training Program
DX: J96.01 Acute respiratory failure with hypoxia (principal); J18.9 Pneumonia, unspecified organism; J45.41 Moderate persistent asthma with (acute) exacerbation; J44.1 Chronic obstructive pulmonary disease with (acute) exacerbation; I50.20 Unspecified systolic (congestive) heart failure; J44.0 Chronic obstructive pulmonary disease with (acute) lower respiratory infection; Z87.891 Personal history of nicotine dependence; G25.81 Restless legs syndrome; F41.9 Anxiety disorder, unspecified; R93.1 Abnormal findings on diagnostic imaging of heart and coronary circulation; J43.2 Centrilobular emphysema; I25.10 Atherosclerotic heart disease of native coronary artery without angina pectoris; E78.2 Mixed hyperlipidemia; I48.0 Paroxysmal atrial fibrillation; G47.00 Insomnia, unspecified; I11.0 Hypertensive heart disease with heart failure
CPT/HCPCS: 36415; 71045; 71275; 80053; 80061; 82803; 83605; 83735; 83880; 84484; 85007; 85025; 87040; 87070; 87077; 87186; 87205; 87389; 87633; 93005; 93306; 94640; 94667; 94760; 94761; 99285; J0131; J0456; J0696; J1630; J2270; J2405; J2919; J3475; J7050; J7614; J7620; Q9967

== ENCOUNTER 2024-10-28 14:06 | Outpatient (CLI) | payer MEDICARE, SELFPAY ==
[2024-10-28 14:12] LABS: Coronavirus 19, PCR Not Detected (NotDetected); Influenza A, PCR Not Detected (NotDetected); Influenza B, PCR Not Detected (NotDetected)
== END 2024-10-28 23:59 | disposition home or self-care (01) ==
PROVIDERS: PCP Internal Medicine Adolescent Medicine; Visit Provider Internal Medicine Pulmonary Disease
DX: R06.02 Shortness of breath (principal)
CPT/HCPCS: 87636

== ENCOUNTER 2024-10-31 08:20 | Day surgery (SDC) | payer MEDICARE, SELFPAY ==
[2024-10-31] VITALS (12 sets, daily range): BP systolic 126–150; BP diastolic 64–91; PULSE 45–62; RESP 14–22; TEMP 36.8; O2SAT 93–99; BMI 25.4
--- NOTE | 2024-10-31 07:45 | IR_ITS ---
APPROVED REPORT Patient Location: Outpatient PROCEDURES Selective coronary angiogram Intravascular lithotripsy to the mid LAD Drug-eluting stent deployment to the mid LAD INDICATION High risk abnormal Myoview, Angina pectoris, Coronary artery disease, Calcified mid LAD, History of coronary bypass surgery Informed consent was obtained prior to the procedure. COMPLICATIONS NONE Estimated Blood Loss: LESS THAN 10 ML TECHNIQUE One percent lidocaine used to anesthetize the right anterior aspect of the wrist. The right radial artery was accessed via the Seldinger technique. A 6 [place] sheath was placed in the right radial artery. 2.5 mg of Verapamil, 800 mcg of nitroglycerin, 1mg Lidocaine and 5000 U Heparin were given through the arterial sheath. The 6 [place] JL 3 guide catheter was used to perform selective coronary angiogram. At the end the diagnostic angiogram therapeutic heparin was administered giving a therapeutic ACT and the guide catheter was left in left main artery followed by Choice PT extra-support wire placed distally in the LAD. A 2.5 x 38 mm [place] frontier stent was deployed at 24 dennise reducing the stenosis. An additional 2.5 x 12 mm [place] frontier stent was placed distal to the for stent yet still overlapping and deployed at 20 dennise. The balloon was brought back and deployed at 24 and then 25 dennise in the area of interest which failed to reduce the stenosis. A 2.75 x 8 mm noncompliant balloon was deployed at 26 dennise which also failed to reduce the stenosis. A 3 mm x 12 mm lithotripsy balloon was advanced to 120 pulsations were delivered throughout the mid LAD. Following this a 2.75 x 27 mm Anton[place] frontier stent was deployed at 24 dennise to post dilate. RADHA-3 flow was present before and after the procedure. After achieving excellent angiograph results apparatus was removed the sheath was removed and hemostasis was achieved using TR banding patient was transferred to the postop putting in stable condition ANGIOGRAPHIC RESULTS The left main artery Normal The left anterior descending artery Has stents in the proximal to mid segment. The proximal segment has 20 and 30% concentric in-stent restenosis of the mid segment has 7080 and 90% concentric stenoses. The LAD is large and wraps the apex The circumflex artery Is nondominant yet still large and gives rise to 2 large obtuse marginal arteries which have 10 to 20% stenoses The right coronary artery Is dominant and has mid vessel 30 and 40% stenoses with distal 20 and 30% stenosis The NAYAK ventriculogram reveals Was not performed The left ventricular end-diastolic pressure Not measured IMPRESSION Severe disease within the mid LAD with successful intravascular lithotripsy followed by drug-coated balloon angioplasty and stenting PLAN 1. Dual antiplatelet therapy 2. Cardiac rehabilitation 3. Avoidance of tobacco products 4. Risk factor modification 5. LDL less than 55 to achieve that high intensity statin Electronically signed by : Frank Abdalla MD 10/31/2024 12:04:03
[2024-10-31 08:52] LABS: Basophils # 0.1 K/mm3 (0-0.2); Basophils % 0.9 % (0.1-2.0); Eosinophils % 0.2 % (0.1-12.0); Hematocrit 46.5 % (37.0-47.0); Hemoglobin 15.7 g/dL (12.2-16.2); Lymphocytes # 2.9 K/mm3 (0.7-4.5); Lymphocytes % 47.9 % (10-50); Mean Corpuscular HGB Conc 33.6 g/dL (31.8-35.4); Mean Corpuscular Hemoglobin 31.3 pg (27.0-31.2); Mean Platelet Volume 7.1 fl (7.4-10.4); Monocytes # 0.4 K/mm3 (0.1-1.0); Monocytes % 6.4 % (1.7-9.3); Neutrophils # 2.7 K/mm3 (1.8-7.8); Neutrophils % 44.7 % (37.0-80.0); Platelet Count 335 K/mm3 (142-424); Red Cell Distribution Width 14.6 % (11.5-17.5); White Blood Count 6.1 K/mm3 (4.8-10.8)
[2024-10-31 08:58] LABS: Chloride 112 mmol/L (98-107); Potassium 3.4 mmoL/L (3.5-5.1); Sodium 141 mmol/L (136-145)
[2024-10-31 09:01] LABS: Anion Gap 4.4 mEq/L (5-15); Blood Urea Nitrogen 6 mg/dl (7-17); Calcium 8.6 mg/dl (8.4-10.2); Carbon Dioxide 28 mmol/L (22.0-30.0); Creatinine Clearance Estimated 54 mL/min (50-200); Estimated Glomerular Filt Rate 82 ml/min (>60); GFR (African American) 100 ML/MIN (>60); Glucose 87 mg/dl (74-100)
[2024-10-31] MEDS: VERAPAMIL 2.5MG/ML 2ML VIAL 2.5 MG IV (10:39)
[2024-10-31] MEDS: HEPARIN 1,000 UNITS/ML 10ML VIAL (CATH LAB) 10000 UNIT IV (10:39)
[2024-10-31] MEDS: LIDOCAINE 1% 10ML MDV 20 ML IJ (10:39)
[2024-10-31] MEDS: HEPARIN 1,000 UNITS/500ML NS (CATH LAB) 3000 UNIT IV (10:39)
[2024-10-31] MEDS: 0.9 % SODIUM CHLORIDE 500 ML 25 ML IV (10:40)
[2024-10-31] MEDS: MIDAZOLAM HCL 1MG/ML 5ML VIAL 1 MG IV (10:41)
[2024-10-31] MEDS: FENTANYL 100MCG/2ML VIAL 50 MCG IV (10:41)
[2024-10-31] MEDS: NITROGLYCERIN 800MCG/8ML SYR (CATH LAB) 800 MCG IA (11:25)
[2024-10-31] MEDS: CLOPIDOGREL 300MG TABLET 600 MG PO (11:31)
[2024-10-31] MEDS: ACETAMINOPHEN 325MG TAB 650 MG PO (13:32)
[2024-10-31] MEDS: IOPAMIDOL-370 (76%);100ML BOTTLE 110 ML IV (13:32)
[2024-10-31 13:38] LABS: CATHL Activated Clotting Time 357 SEC (74-125)
== END 2024-10-31 15:01 | disposition home or self-care (01) ==
LOC: CATHLAB 08:21
PROVIDERS: PCP Internal Medicine Adolescent Medicine; Visit Provider Internal Medicine
DX: Z95.1 Presence of aortocoronary bypass graft (principal); I20.89 Other forms of angina pectoris; R07.89 Other chest pain; R93.1 Abnormal findings on diagnostic imaging of heart and coronary circulation; Z95.5 Presence of coronary angioplasty implant and graft
CPT/HCPCS: 80048; 85025; 85347; 99152; 99153; C1725; C1761; C1769; C1874; J1644; J2250; J3010; Q9967

== ENCOUNTER 2024-10-31 21:00 | Observation (INO) | payer MEDICARE, SELFPAY ==
[2024-10-31 21:00] VITALS: BP 157/90; PULSE 59; RESP 13; TEMP 36.7; O2SAT 99; BMI 24.9
--- NOTE | 2024-10-31 21:08 | ECG_ITS ---
APPROVED REPORT Exam: Resting ECG HR:60 bpm ECG Measurements Heart Rate 60 AXES IL 193 P 80 QRSd 107 QRS 18 QT 458 T 11 QTc 458 Conclusion SINUS RHYTHM WITH OCCASIONAL VENTRICULAR PREMATURE COMPLEXES WITH OCCASIONAL SUPRAVENTRICULAR PREMATURE COMPLEXES MODERATE INTRAVENTRICULAR CONDUCTION DELAY [105+ ms QRS DURATION, 80+ ms Q/S IN V1/V2, NO Q AND 60+ ms R IN I/aVL/V5/V6] ST DEVIATION AND MODERATE T-WAVE ABNORMALITY, CONSIDER ANTERIOR ISCHEMIA [-0.1+ mV T-WAVE IN V3/V4] ABNORMAL ECG UNCONFIRMED REPORT Electronically signed by : Phi Corona, 11/01/2024 23:11:46
--- NOTE | 2024-10-31 21:36 | XR_ITS ---
PROCEDURE INFORMATION: Exam: XR Chest Exam date and time: 10/31/2024 9:35 PM Age: 73 years old Clinical indication: Dyspnea TECHNIQUE: Imaging protocol: Radiologic exam of the chest. Views: 1 view. Total images: 1 COMPARISON: CT ANGIO CHEST PE PROTOCOL 10/12/2024 9:55 PM FINDINGS: Tubes, catheters and devices: EKG leads are present. Lungs: Mild emphysematous changes. No acute infiltrate, airspace consolidation, or vascular congestion. No pulmonary edema. Pleural spaces: Unremarkable. No pleural effusion. No pneumothorax. Heart/Mediastinum: Stable mild cardiomegaly. No mediastinal widening. Vasculature: Tortuous and atherosclerotic thoracic aorta. Bones/joints: Status post median sternotomy. Osteopenia. Stable osseous structures. IMPRESSION: 1. No radiographically acute cardiopulmonary process. 2. Chronic findings.
[2024-10-31 21:53] LABS: Chloride 110 mmol/L (98-107)
[2024-10-31 21:54] LABS: Albumin Level 4.1 g/dl (3.5-5.0); Potassium 4.6 mmoL/L (3.5-5.1); Sodium 138 mmol/L (136-145)
[2024-10-31 21:56] LABS: Blood Urea Nitrogen 6 mg/dl (7-17); Creatinine Clearance Estimated 53 mL/min (50-200); Estimated Glomerular Filt Rate 82 ml/min (>60); GFR (African American) 100 ML/MIN (>60)
--- NOTE | 2024-10-31 21:56 | [facility].EDCP ---
Discharge Plan Disposition Patient Disposition: Admitted Prescriptions Prescriptions: No Action fluticasone propionate 50 mcg/actuation spray,suspension See Rx Instructions .ROUTE .COMPLEX Qty: 16 0RF Dose Instruction: USE 2 SPRAYS IN EACH NOSTRIL ONCE A DAY Rx Instructions: USE 2 SPRAYS IN EACH NOSTRIL ONCE A DAY Breztri Aerosphere 160-9-4.8 mcg/actuation HFA aerosol inhaler See Rx Instructions .ROUTE .COMPLEX Qty: 10.7 0RF Dose Instruction: INHALE 2 PUFFS BY MOUTH 2 TIMES A DAY Rx Instructions: INHALE 2 PUFFS BY MOUTH 2 TIMES A DAY ropinirole 1 mg tablet 3 mg PO HS trazodone 50 mg tablet 50 mg PO HS bisoprolol fumarate 5 mg tablet 5 mg PO DAILY famotidine 20 mg tablet 20 mg PO BID temazepam 15 mg capsule 15 mg PO HS montelukast 10 mg tablet 10 mg PO DAILY albuterol sulfate 90 mcg/actuation HFA aerosol inhaler 2 inh INHALATION Q4-6H PRN (Reason: Shortness of breath) escitalopram oxalate 20 mg tablet 20 mg PO DAILY Eliquis 5 mg tablet 5 mg PO BID Gemtesa 75 mg tablet 75 mg PO DAILY Fasenra Pen 30 mg/mL auto-injector 30 mg SQ Q56D Breztri Aerosphere 160-9-4.8 mcg/actuation HFA aerosol inhaler 2 inh INHALATION BID fluticasone propionate 50 mcg/actuation spray,suspension 2 spray INTRANASAL DAILY Repatha SureClick 140 mg/mL pen injector 140 mg SQ Q14D sacubitril-valsartan [Entresto] 24-26 mg Tablet 1 tab PO BID 30 Days Qty: 60 0RF ipratropium-albuterol 0.5 mg-3 mg(2.5 mg base)/3 mL Solution For Nebulization 3 ml inhalation Q6HP PRN30 Days Qty: 0 0RF Jardiance 10 mg Tablet 10 mg PO DAILY 30 Days Qty: 30 0RF clopidogrel [Plavix] 75 mg Tablet 75 mg PO DAILY Qty: 30 6RF aspirin 81 mg Capsule 81 mg PO DAILY Qty: 30 3RF Referrals Follow up/Referrals: Michael Baez MD [Primary Care Provider] - See instructions Clinical Impressions Clinical Impression: Chest pain, Myocardial injury Print Language Print Language: B[place] Discharge ED Provider: Debra Corona HPI General Chief Complaint: Chest Pain Stated Complaint: chest pain Time Seen by Provider: 10/31/24 21:32 Mode of Arrival: EMS Source of Information: Patient and EMS Limitations: Physical Limitations Description of Symptoms (Recalled from ER Triage Doc. by RN): Pt reports to ED via EMS for CP that started approx 1 hour ago. Pt had a heart cath today at approx 10 am. VSS and pt is A&O*4. Pt's family is bedside. EMS collected blood and started IV. Pt rec'd ASA and Nitro en route. Pt states pain is 4/10 at this time. History of Present Illness HPI narrative: Patient is a 73-year-old female who recently recovered from pneumonia in the hospital and followed up with cardiology and had abnormal EKG with heart failure reduced ejection fraction and focal hypokinesis which was followed by a heart cath which Findings were as below but she had severe disease within the mid LAD with successful intravascular lithotripsy followed by drug-coated balloon angioplasty with stenting. She subsequently has developed chest pain this afternoon and just overall fatigue feeling as though she is melting. She has had aspirin and Plavix earlier today she had held her Eliquis for several days and has not had a dose of that in 3 days. She is anticoagulated chronically for A-fib. The left main artery Normal The left anterior descending artery Has stents in the proximal to mid segment. The proximal segment has 20 and 30% concentric in-stent restenosis of the mid segment has 7080 and 90% concentric stenoses. The LAD is large and wraps the apex The circumflex artery Is nondominant yet still large and gives rise to 2 large obtuse marginal arteries which have 10 to 20% stenoses The right coronary artery Is dominant and has mid vessel 30 and 40% stenoses with distal 20 and 30% stenosis The NAYAK ventriculogram reveals Was not performed The left ventricular end-diastolic pressure Not measured IMPRESSION Severe disease within the mid LAD with successful intravascular lithotripsy followed by drug-coated balloon angioplasty and stenting Related Data Home Medications ?Medication ?Instructions ?Recorded ?Confirmed albuterol sulfate 90 mcg/actuation 2 inh inhalation Q4-6H PRN 10/12/24 10/28/24 aerosol inhaler Shortness of breath apixaban 5 mg tablet (Eliquis) 5 mg PO BID 10/12/24 10/28/24 bisoprolol fumarate 5 mg tablet 5 mg PO DAILY 10/12/24 10/28/24 escitalopram oxalate 20 mg tablet 20 mg PO DAILY 10/12/24 10/28/24 famotidine 20 mg tablet 20 mg PO BID 10/12/24 10/28/24 montelukast 10 mg tablet 10 mg PO DAILY 10/12/24 10/28/24 ropinirole 1 mg tablet 3 mg PO HS 10/12/24 10/28/24 temazepam 15 mg capsule 15 mg PO HS 10/12/24 10/28/24 trazodone 50 mg tablet 50 mg PO HS 10/12/24 10/28/24 vibegron 75 mg tablet (Gemtesa) 75 mg PO DAILY 10/12/24 10/28/24 benralizumab 30 mg/mL subcutaneous 30 mg SQ Q56D 10/13/24 10/28/24 auto-injector (Fasenra Pen) budesonide 160 mcg-glycopyr 9 2 inh inhalation BID 10/13/24 10/28/24 mcg-formot 4.8 mcg/actuation HFA inhaler (Breztri Aerosphere) evolocumab 140 mg/mL subcutaneous 140 mg SQ Q14D 10/13/24 10/28/24 pen injector ([employer]) fluticasone propionate 50 2 spray intranasal DAILY 10/13/24 10/28/24 mcg/actuation nasal spray,suspension Previous Rx's ?Medication ?Instructions ?Recorded empagliflozin 10 mg tablet 10 mg PO DAILY 30 days #30 tabs 10/14/24 (Jardiance) ipratropium 0.5 mg-albuterol 3 mg 3 ml inhalation Q6HP PRN 30 days 10/14/24 (2.5 mg base)/3 mL nebulization #0 mL soln sacubitril 24 mg-valsartan 26 mg 1 tab PO BID 30 days #60 tabs 10/14/24 tablet (Entresto) budesonide 160 mcg-glycopyr 9 See Rx Instructions .Route 10/27/24 mcg-formot 4.8 mcg/actuation HFA .COMPLEX #10.7 grams inhaler (Breztri Aerosphere) fluticasone propionate 50 See Rx Instructions .Route 10/27/24 mcg/actuation nasal .COMPLEX #16 grams spray,suspension aspirin 81 mg capsule 81 mg PO DAILY #30 caps 10/31/24 clopidogrel 75 mg tablet (Plavix) 75 mg PO DAILY #30 tabs 10/31/24 Allergies Allergy/AdvReac Type Severity Reaction Status Date / Time codeine Allergy Mild Gastrointestinal Verified 10/28/24 13:22 Upset diphenhydramine (From Allergy Mild Flushing Verified 10/28/24 13:22 Benadryl) Penicillins Allergy Mild Hives Verified 10/28/24 13:22 isosorbide AdvReac Intermediate Severe CHENEY Verified 10/28/24 13:22 diazepam (From Valium) AdvReac Mild Agitated Verified 10/28/24 13:22 PFSH PFS Disclaimer: The information contained in this section may have been updated after the patient was seen, as this information can be updated by other users. Medical History CAD (coronary artery disease) Hyperlipidemia Atrial fibrillation Hypertension Abnormal echocardiogram HFrEF (heart failure with reduced ejection fraction) Thoracic compression fracture Former smoker Fatigue Angina pectoris Gastroenteritis COVID-19 COPD exacerbation Acute costochondritis COPD exacerbation COPD with acute exacerbation Restless leg syndrome Enterocolitis Peripheral eosinophilia Severe persistent asthma Stopped smoking with greater than 30 pack year history Centrilobular emphysema Asthma exacerbation Pneumonia Eosinophilia (Unknown) Allergic rhinitis Dyspnea on exertion Encounter for screening for malignant neoplasm of lung in current smoker with 30 pack year history or greater Asthma History of smoking 30 or more pack years Acute respiratory failure with hypoxia COPD exacerbation Atrial fibrillation Anxiety Depression COPD (chronic obstructive pulmonary disease) SOB (shortness of breath) COPD (chronic obstructive pulmonary disease) Surgical History Hx of CABG Status post ablation of atrial fibrillation OCT 2019 History of colon resection History of bilateral knee replacement H/O: hysterectomy Family History Other No significant family history Social History Smoking Status: Unknown if ever smoked years smoked: 56 how long ago did patient quit smoking: july 2022 quit status: quit date established second hand exposure: No alcohol intake: never substance use type: denies use current occupational status: retired and other Travel in the last 8 weeks: Inside the [place] household members: spouse and children housing: house lives independently: No marital status: education level: college current occupational exposures/hazards: No caffeine: Yes Other Medical History Have you received the Flu Vaccine for this season: No Have you received the Pneumonia Vaccine: Yes ROS Obtained: Yes All systems reviewed & no additional complaints except as documented Physical Exam General General appearance: alert and in no apparent distress Respiratory Respiratory exam: Present normal lung sounds bilaterally; Absent respiratory distress Cardiovascular Cardiovascular exam: Present regular rate and normal rhythm Abdominal Exam Abdominal exam: Present soft; Absent distention or tenderness Neurological Exam Neurological exam: Present alert; Absent oriented X3 or CN II-XII intact HEART Score HEART Score HEART Score assessment performed?: Yes History (anamnesis): Slightly suspicious ECG: Non-specific disturbance Age: >65 years Risk factors: Atherosclerosis history Troponin: > 3x normal limit HEART Score: 7 Critical Care Critical Care Time Critical Care Time: Yes Attestation: On 10/31/24, the high probability of a clinically significant, sudden or life threatening deterioration of the following system(s) required my full and direct attention, intervention and personal management. The time I documented below is in addition to time spent performing reported procedures but includes the following listed in this critical care notation. Total Time Total Critical Care Time: 35 Medical Decision Making Donald Inquiry Pt receiving controlled substance: No Vital Signs Vital Signs: 10/31/24 21:00 Temperature 98.0 F Temperature Source Oral Pulse Rate [Left] 59 L Respiratory Rate 13 Blood Pressure [Right Arm] 157/90 H Blood Pressure Mean [Right Arm] 112 02 Sat by Pulse Oximetry 99 Oxygen Delivery Method Nasal Cannula Oxygen Flow Rate (LPM) 2 Lab Data Lab results reviewed: Yes I reviewed the patient's lab results. Labs: Lab Results 10/31/24 20:38: WBC 7.8 D, RBC 5.28, Hgb 16.5 H, Hct 48.8 H, MCV 92.6, MCH 31.4 H, MCHC 33.9, RDW 14.7, Plt Count 339, MPV 7.4, Neut % (Auto) 54.2, Lymph % (Auto) 39.1, Hays % (Auto) 5.9, Eos % (Auto) 0.0 L, Baso % (Auto) 0.8, Neut # (Auto) 4.2, Lymph # (Auto) 3.1, Hays # (Auto) 0.5, Eos # (Auto) 0.0, Baso # (Auto) 0.1, Sodium 138, Potassium 4.6 D, Chloride 110 H, Carbon Dioxide 25, Anion Gap 7.6, BUN 6 L, Creatinine 0.70, Estimated Creat Clear 53, Estimated GFR 82, Est GFR ( Amer) 100, Glucose 76, Calcium 8.9, Total Bilirubin 1.3, AST 59 H, ALT 19, Alkaline Phosphatase 47, Troponin I 6.14 H, Total Protein 7.2, Albumin 4.1, Globulin 3.1, Albumin/Globulin Ratio 1.3 10/31/24 20:38 10/31/24 20:38 Response Orders (Tests/Meds): ED MEDICATIONS Generic Name Dose Route Start Last Admin Trade Name Freq PRN Reason Stop Dose Admin Morphine Sulfate 4 mg 10/31/24 23:05 Morphine 4mg/Ml Syringe IV 10/31/24 23:06 ONCE ONE Discontinued Medications Generic Name Dose Route Start Last Admin Trade Name Freq PRN Reason Stop Dose Admin Sodium Chloride 500 mls @ 999 mls/hr 10/31/24 21:53 10/31/24 22:00 Sod Chlor 0.9% 1000ml Bag IV 10/31/24 22:23 999 mls/hr .Q31M ONE Administration Morphine Sulfate 2 mg 10/31/24 21:53 10/31/24 22:41 Morphine 4mg/Ml Syringe IV 10/31/24 21:54 Not Given ONCE ONE Morphine Sulfate 2 mg 10/31/24 22:40 10/31/24 22:41 Morphine 2mg/Ml Syringe IV 10/31/24 22:41 2 mg ONCE ONE Administration ORDERS Category Date Time Status CXR --portable [XR chest portable] Stat Exams 10/31/24 21:36 Completed CBC w/Auto Diff [Complete Blood Count Auto Diff] Stat Lab 10/31/24 20:38 Completed CMP [Comprehensive Metabolic Panel] Stat Lab 10/31/24 20:38 Completed Trop I [Troponin I] Stat Lab 10/31/24 20:38 Completed Troponin I Q3H Lab 11/01/24 00:45 Ordered Troponin I Q3H Lab 11/01/24 03:45 Ordered ECG Data Tracing #1: Attestation: I reviewed this ECG and interpreted as documented below: ECG Narrative: Ventricular rate of 60 normal sinus rhythm with a sinus arrhythmia there are T wave inversions in the anterior precordial leads nonspecific ST abnormality in the inferior leads no ST elevations there is normal axis no significant conduction abnormality noted MDM Narrative Medical Decision Narrative: 73-year-old with above history and physical who had a left heart cath today with severe disease within the mid LAD with successful intravascular lithotripsy followed by drug-coated balloon angioplasty and stenting. Her symptoms today recurrent after this particular been on dual antiplatelet therapy superimposed on chronic anticoagulation are likely secondary to vascular spasm and reperfusion discomfort. Given the fact that she is not presenting with a STEMI makes acute stent rethrombosis very unlikely. Will obtain serial troponins administer IV morphine and put patient in ED observation. Reassessment 1106 patient still having significant pain we will escalate and give an additional dose of morphine. Her troponin is significantly elevated. I discussed the case with Dr. Abdalla and he stated that he had significant stretching of her coronary vessels but that the overall procedure went very well and had good results. But that most likely the loss of septal and side branch vessels are the cause of this pain and with surrounding myocardial injury and cardiomyopathy damage. EKG as per above no evidence of STEMI. She will be admitted for pain control he recommended no further anticoagulation I spoke with Dr. Zuniga who is on-call for hospital medicine who agreed to admit the patient for further evaluation and management.
[2024-10-31 21:57] LABS: Alanine Aminotransferase 19 U/L (12-78); Albumin/Globulin Ratio 1.3 (1.1-1.8); Alkaline Phosphatase 47 U/L (38-126); Anion Gap 7.6 mEq/L (5-15); Aspartate Amino Transferase 59 U/L (14-36); Bilirubin,Total 1.3 mg/dl (0.2-1.3); Calcium 8.9 mg/dl (8.4-10.2); Carbon Dioxide 25 mmol/L (22.0-30.0); Globulin 3.1 g/dL (1.3-3.2); Glucose 76 mg/dl (74-100); Total Protein,Serum 7.2 g/dl (6.3-8.2)
[2024-10-31 22:00] LABS: Basophils # 0.1 K/mm3 (0-0.2); Basophils % 0.8 % (0.1-2.0); Hematocrit 48.8 % (37.0-47.0); Hemoglobin 16.5 g/dL (12.2-16.2); Lymphocytes # 3.1 K/mm3 (0.7-4.5); Lymphocytes % 39.1 % (10-50); Mean Corpuscular HGB Conc 33.9 g/dL (31.8-35.4); Mean Corpuscular Hemoglobin 31.4 pg (27.0-31.2); Mean Corpuscular Volume 92.6 fl (81-99); Mean Platelet Volume 7.4 fl (7.4-10.4); Monocytes # 0.5 K/mm3 (0.1-1.0); Monocytes % 5.9 % (1.7-9.3); Neutrophils # 4.2 K/mm3 (1.8-7.8); Neutrophils % 54.2 % (37.0-80.0); Platelet Count 339 K/mm3 (142-424); Red Blood Count 5.28 M/mm3 (4.20-5.40); Red Cell Distribution Width 14.7 % (11.5-17.5); White Blood Count 7.8 K/mm3 (4.8-10.8)
[2024-10-31] MEDS: 0.9 % SODIUM CHLORIDE 1000ML 500 ML 999 ML IV (22:00)
[2024-10-31 22:11] LABS: Troponin I 6.14 ng/ml (0.00-0.034)
[2024-10-31] MEDS: MORPHINE 2MG/ML SYRINGE 2 MG IV (22:41)
[2024-10-31] MEDS: MORPHINE 4MG/ML SYRINGE 4 MG IV (23:12)
--- NOTE | 2024-10-31 23:13 | EXP.HP ---
History of Present Illness *Admission Date: 10/31/24 *Reason for visit:: Chest pain *History of present illness: This is a 73-year-old female who presents to [facility] emergency department concerns of chest pain. She underwent cardiac catheterization earlier today with lithotripsy and stent placement via right radial artery approach. She describes a fullness to her chest with associated retrosternal pressure that radiates across her chest. She characterizes her pain as achy and full. She rates her pain as greater than 7 on a 1-10 pain scale. She describes associated fatigue but no associated diaphoresis, nausea, emesis or confusion. She denies unusual headaches. She has identified no unusual bruising, bleeding or gross hematuria. Her past medical history is significant for coronary artery disease with previous coronary artery bypass grafting and stent deployment today. She is chronically anticoagulated on factor Xa inhibitor for her paroxysmal atrial fibrillation with previous ablation 2018. Her ED ECG identified no acute ST-T changes and her troponin was elevated. Cardiology was contacted out of the ED. [facility] Medical History (Updated 11/01/24 @ 00:20 by De Bhatt MD) History of left heart catheterization Abnormal echocardiogram HFrEF (heart failure with reduced ejection fraction) Peripheral eosinophilia Severe persistent asthma Stopped smoking with greater than 30 pack year history Eosinophilia (Unknown) Allergic rhinitis Asthma History of smoking 30 or more pack years Acute respiratory failure with hypoxia Restless leg syndrome Hyperlipidemia Hypertension Atrial fibrillation Anxiety Depression COPD (chronic obstructive pulmonary disease) Thoracic compression fracture Former smoker CAD (coronary artery disease) Surgical History History of colon resection History of bilateral knee replacement H/O: hysterectomy Status post ablation of atrial fibrillation Hx of CABG Family History Other No significant family history Social History Smoking Status: Unknown if ever smoked years smoked: 55 how long ago did patient quit smoking: july 2022 quit status: quit date established second hand exposure: No alcohol intake: never substance use type: denies use current occupational status: retired Travel in the last 8 weeks: None household members: spouse and children housing: house lives independently: No marital status: education level: college current occupational exposures/hazards: No caffeine: Yes Other Medical History Have you received the Flu Vaccine for this season: No Have you received the Pneumonia Vaccine: Yes Review of Systems Review of Systems Review of systems:: pertinent systems reviewed and negative unless documented below Meds Home Medications and Allergies Home Medications ?Medication ?Instructions ?Recorded ?Confirmed ?Type albuterol sulfate 90 mcg/actuation 2 inh inhalation Q4-6H PRN 10/12/24 10/31/24 History aerosol inhaler Shortness of breath apixaban 5 mg tablet (Eliquis) 5 mg PO BID 10/12/24 10/31/24 History bisoprolol fumarate 5 mg tablet 5 mg PO DAILY 10/12/24 10/31/24 History escitalopram oxalate 20 mg tablet 20 mg PO DAILY 10/12/24 10/31/24 History famotidine 20 mg tablet 20 mg PO BID 10/12/24 10/31/24 History montelukast 10 mg tablet 10 mg PO DAILY 10/12/24 10/31/24 History ropinirole 1 mg tablet 3 mg PO HS 10/12/24 10/31/24 History temazepam 15 mg capsule 15 mg PO HS 10/12/24 10/31/24 History trazodone 50 mg tablet 50 mg PO HS 10/12/24 10/31/24 History vibegron 75 mg tablet (Gemtesa) 75 mg PO DAILY 10/12/24 10/31/24 History benralizumab 30 mg/mL subcutaneous 30 mg SQ Q56D 10/13/24 10/31/24 History auto-injector (Fasenra Pen) budesonide 160 mcg-glycopyr 9 2 inh inhalation BID 10/13/24 10/31/24 History mcg-formot 4.8 mcg/actuation HFA inhaler (Breztri Aerosphere) evolocumab 140 mg/mL subcutaneous 140 mg SQ Q14D 10/13/24 10/31/24 History pen injector (Repatha SureClick) fluticasone propionate 50 2 spray intranasal DAILY 10/13/24 10/31/24 History mcg/actuation nasal spray,suspension empagliflozin 10 mg tablet 10 mg PO DAILY 30 days #30 tabs 10/14/24 10/31/24 Rx (Jardiance) ipratropium 0.5 mg-albuterol 3 mg 3 ml inhalation Q6HP PRN 30 days 10/14/24 10/31/24 Rx (2.5 mg base)/3 mL nebulization #0 mL soln sacubitril 24 mg-valsartan 26 mg 1 tab PO BID 30 days #60 tabs 10/14/24 10/31/24 Rx tablet (Entresto) aspirin 81 mg capsule 81 mg PO DAILY #30 caps 10/31/24 10/31/24 Rx clopidogrel 75 mg tablet (Plavix) 75 mg PO DAILY #30 tabs 10/31/24 10/31/24 Rx New Prescriptions to Start Prescriptions: Allergies Allergy/AdvReac Type Severity Reaction Status Date / Time codeine Allergy Mild Gastrointestinal Verified 10/28/24 13:22 Upset diphenhydramine (From Allergy Mild Flushing Verified 10/28/24 13:22 Benadryl) Penicillins Allergy Mild Hives Verified 10/28/24 13:22 lorazepam (From Ativan) Allergy Anxiety Verified 10/31/24 23:39 isosorbide AdvReac Intermediate Severe CHENEY Verified 10/28/24 13:22 diazepam (From Valium) AdvReac Mild Agitated Verified 10/28/24 13:22 hydrocodone AdvReac Hives Verified 11/01/24 00:07 Exam Data for Last 24 hours Vital signs and Labs for Last 24 Hours: Temp Pulse Resp BP Pulse Ox O2 Del Method O2 Flow Rate 98.0 F 59 L 13 157/90 H 99 Nasal Cannula 2 10/31/24 21:00 10/31/24 21:00 10/31/24 21:00 10/31/24 21:00 10/31/24 21:00 10/31/24 21:00 10/31/24 21:00 Laboratory Results - last 24 hr 10/31/24 20:38: WBC 7.8 D, RBC 5.28, Hgb 16.5 H, Hct 48.8 H, MCV 92.6, MCH 31.4 H, MCHC 33.9, RDW 14.7, Plt Count 339, MPV 7.4, Neut % (Auto) 54.2, Lymph % (Auto) 39.1, [place] % (Auto) 5.9, Eos % (Auto) 0.0 L, Baso % (Auto) 0.8, Neut # (Auto) 4.2, Lymph # (Auto) 3.1, [place] # (Auto) 0.5, Eos # (Auto) 0.0, Baso # (Auto) 0.1, Sodium 138, Potassium 4.6 D, Chloride 110 H, Carbon Dioxide 25, Anion Gap 7.6, BUN 6 L, Creatinine 0.70, Estimated Creat Clear 53, Estimated GFR 82, Est GFR ( Amer) 100, Glucose 76, Calcium 8.9, Total Bilirubin 1.3, AST 59 H, ALT 19, Alkaline Phosphatase 47, Troponin I 6.14 H, Total Protein 7.2, Albumin 4.1, Globulin 3.1, Albumin/Globulin Ratio 1.3 I & O for Last 24 hours: Intake & Output 10/28/24 10/29/24 10/30/24 10/31/24 23:59 23:59 23:59 23:59 Weight 65.771 kg Constitutional Constitutional: no acute distress and cooperative *Routine HEENT Exam Head: Present normocephalic Eye: Present EOMI and PERRL ENT: Present mucous membranes moist *Routine Neck Exam Neck: Present supple and trachea midline; Absent lymphadenopathy *Routine Respiratory Exam Respiratory: Present rhonchi, normal respiratory effort and symmetric chest movement; Absent respiratory distress *Routine Cardiovascular Exam Cardiovascular: Present RRR; Absent murmur *Routine Abdominal Exam Abdominal: Present soft and normoactive bowel sounds; Absent tenderness *Routine Rectal Exam Rectal:: deferred *Routine Genitalia Exam Genitalia:: deferred *Routine Extremities Exam Extremities: Present full ROM and normal capillary refill; Absent clubbing or edema *Routine Skin Exam Skin: Present intact; Absent wounds or rash *Routine Neurological Exam Neurological: Present alert, oriented X3, moving all extremities, vision grossly intact, hearing grossly intact and normal speech; Absent sensory deficit or motor deficit Routine Psychiatric Exam Psychiatric: Present normal affect, normal thought process, cooperative, good insight, good judgment and anxious Assessment and Plan *Assessment and plan (1) Unstable angina: Status: Acute Category: Medical Code(s): I20.0 - Unstable angina (2) CAD (coronary artery disease): Status: Chronic Qualifiers: Coronary Disease-Associated Artery/Lesion type: [place] artery [place] vs. transplanted heart: [place] heart Associated angina: without angina Qualified Code(s): I25.10 - Atherosclerotic heart disease of [place] coronary artery without angina pectoris Category: Medical Code(s): I25.10 - Atherosclerotic heart disease of [place] coronary artery without angina pectoris (3) HFrEF (heart failure with reduced ejection fraction): Status: Acute Category: Medical Code(s): I50.20 - Unspecified systolic (congestive) heart failure (4) COPD (chronic obstructive pulmonary disease): Status: Chronic Qualifiers: COPD type: emphysema Emphysema type: centrilobular Qualified Code(s): J43.2 - Centrilobular emphysema Category: Medical Code(s): J44.9 - Chronic obstructive pulmonary disease, unspecified Plan This is a 73-year-old female with established coronary artery disease and previous CABG. She underwent cardiac catheterization today with stent deployment. She presented with chest pain. Problems addressed as follows: Unstable angina Coronary artery disease Cardiac catheterization with lithotripsy and stent deployment (10/31/2024) Telemetry monitoring Cardiology consultation ED ECG with no acute ST-T changes ED troponin elevated Aspirin 81 mg daily Plavix 75 mg daily Statin therapy Beta-lori therapy ARB therapy Nitroglycerin as needed Antiemetic therapy Pain meds Parenterally administered controlled substance for comfort care Chronic HFrEF (stage C--- NYHA II) Telemetry monitoring Echo (10/13/2024): EF 40%, normal RV size and function, mild AI, mild MR Accurate I's and O's Routine weights Sodium and fluid restriction Loop diuretic as needed Beta-lori therapy SGLT2 inhibitor therapy ARNI therapy MAR therapy Paroxysmal atrial fibrillation Telemetry monitoring Beta-lori therapy Factor Xa inhibitor therapy Triple anticoagulation therapy (ASA, P2Y12, Eliquis) for 30 days post stent De-escalate anticoagulation therapy as outpatient COPD not in exacerbation Tobacco dependence in remission Pulse oximetry monitoring Oxygen therapy to maintain appropriate oxygen saturations Fang/Emir inhalation therapy ICS/LAMA/LABA therapy Generalized anxiety disorder Routine nursing interaction SSRI therapy Admission QTc 458 MS The length of stay for this patient will be 2 midnights or greater due to above diagnoses.
--- NOTE | 2024-10-31 23:19 | PC.NURSE ---
Report called to PAULINO Ontiveros
[2024-10-31 23:30] VITALS: BP 150/92; PULSE 76; RESP 16; TEMP 37.1; O2SAT 99; BMI 25.4
--- NOTE | 2024-10-31 23:31 | PC.NURSE ---
Patient arrived to floor via stretcher from ED at 23:28.
[2024-10-31 23:33] VITALS: BP 150/92; PULSE 62; RESP 14; TEMP 36.6; O2SAT 98
[2024-10-31 23:38] VITALS: PULSE 70
[2024-11-01] VITALS: BP 146/82; PULSE 60; RESP 16; TEMP 36.9; O2SAT 98
[2024-11-01] MEDS: OXYCODONE 5MG IMMEDIATE RELEASE TABLET 5 MG PO (00:13)
[2024-11-01] MEDS: TEMAZEPAM 15MG CAPSULE 15 MG PO (00:19)
[2024-11-01 01:25] LABS: Troponin I 7.08 ng/ml (0.00-0.034)
--- NOTE | 2024-11-01 01:27 | PC.NURSE ---
Notified by lab of critical Troponin of 7.08. Dr Bhatt notified.
[2024-11-01 04:00] VITALS: BP 109/75; PULSE 60; PULSE 68; RESP 16; TEMP 36.8; O2SAT 98; BMI 25.4
[2024-11-01] MEDS: MORPHINE 4MG/ML SYRINGE 4 MG IV (04:03)
[2024-11-01 04:19] LABS: Troponin I 6.02 ng/ml (0.00-0.034)
[2024-11-01] MEDS: NITROGLYCERIN 0.4MG SL TABLET 0.4 MG SL (04:52)
--- NOTE | 2024-11-01 05:07 | PC.NURSE ---
73 yo female pt admitted with acute myocardial injury.She is A/O X 3 and able to ambulate to with standby assist. Pt has been medicated with oxycodone, morphine and NTG X 1 this shift due to complaints of chest pain, pressure and SOA. Pt reports some relief with the last NTG. VS have been WNL for this pt with 02 sats above 90 % on 2 liters per nc. Telemetry shows sinus arrhythmia.
[2024-11-01 06:53] LABS: Chloride 113 mmol/L (98-107); Potassium 3.8 mmoL/L (3.5-5.1); Sodium 139 mmol/L (136-145)
[2024-11-01 06:56] LABS: Anion Gap 2.8 mEq/L (5-15); Blood Urea Nitrogen 5 mg/dl (7-17); Calcium 7.8 mg/dl (8.4-10.2); Carbon Dioxide 27 mmol/L (22.0-30.0); Creatinine Clearance Estimated 54 mL/min (50-200); Estimated Glomerular Filt Rate 82 ml/min (>60); GFR (African American) 100 ML/MIN (>60); Glucose 77 mg/dl (74-100); Magnesium 1.9 mg/dl (1.6-2.3)
[2024-11-01 08:00] VITALS: BP 110/67; PULSE 55; PULSE 60; RESP 18; TEMP 36.6; O2SAT 99
[2024-11-01] MEDS: SACUBITRIL/VALSARTAN 24-26MG TABLET 1 EACH PO (09:37)
[2024-11-01] MEDS: SPIRONOLACTONE 25MG TABLET 25 MG PO (09:37)
[2024-11-01] MEDS: APIXABAN 5MG TABLET 5 MG PO (09:37)
[2024-11-01] MEDS: CITALOPRAM 40MG TABLET 40 MG PO (09:37)
[2024-11-01] MEDS: EMPAGLIFLOZIN 10MG TABLET 10 MG PO (09:38)
[2024-11-01] MEDS: CLOPIDOGREL 75MG TAB 75 MG PO (09:38)
[2024-11-01] MEDS: ASPIRIN EC 81MG TABLET 81 MG PO (09:38)
[2024-11-01] MEDS: ACETAMINOPHEN 325MG TAB 1000 MG PO (09:42)
--- NOTE | 2024-11-01 09:52 | HMH.PHAINT1 ---
Pharmacy Intervention Comments: MEDICATION RECONCILIATION COMPLETE USING EXTERNAL PHARMACY FILL HISTORY, RECENT CARDIOLOGY OFFICE VISIT NOTE, CARDIOLOGY INTERVENTION NOTE, AND RECENT HOSPITAL DISCHARGE NOTE.
--- NOTE | 2024-11-01 10:08 | ECG_ITS ---
APPROVED REPORT Exam: Resting ECG HR:53 bpm ECG Measurements Heart Rate 53 AXES ID 195 P 90 QRSd 113 QRS 36 QT 509 T 42 QTc 493 Conclusion SINUS BRADYCARDIA WITH MARKED SINUS ARRHYTHMIA MODERATE INTRAVENTRICULAR CONDUCTION DELAY [105+ ms QRS DURATION, 80+ ms Q/S IN V1/V2, NO Q AND 60+ ms R IN I/aVL/V5/V6] ST DEVIATION AND MODERATE T-WAVE ABNORMALITY, CONSIDER ANTERIOR ISCHEMIA [-0.1+ mV T-WAVE IN V3/V4] ABNORMAL ECG UNCONFIRMED REPORT Electronically signed by : Michael Baez MD 11/01/2024 21:29:45
[2024-11-01] MEDS: FLUTICASONE/UMECLIDIN/VILANTER 200/62.5/25MCG INHALER 1 PUFF IH (10:13)
[2024-11-01 10:14] VITALS: O2SAT 95
--- NOTE | 2024-11-01 11:42 | P.DS_ITS ---
General Admission date:: 10/31/24 HPI HPI HPI: This is a 73-year-old female who presents to [facility] emergency department concerns of chest pain. She underwent cardiac catheterization earlier today with lithotripsy and stent placement via right radial artery approach. She describes a fullness to her chest with associated retrosternal pressure that radiates across her chest. She characterizes her pain as achy and full. She rates her pain as greater than 7 on a 1-10 pain scale. She describes associated fatigue but no associated diaphoresis, nausea, emesis or confusion. She denies unusual headaches. She has identified no unusual bruising, bleeding or gross hematuria. Her past medical history is significant for coronary artery disease with previous coronary artery bypass grafting and stent deployment today. She is chronically anticoagulated on factor Xa inhibitor for her paroxysmal atrial fibrillation with previous ablation 2018. Her ED ECG identified no acute ST-T changes and her troponin was elevated. Cardiology was contacted out of the ED. Hospital Course Hospital Course Hospital Course: This is a 73-year-old female with established coronary artery disease and previous CABG. She underwent outpatient cardiac catheterization today with stent deployment. She presented with chest pain. Problems addressed as follows: NSTEMI Coronary artery disease - Outpatient cardiac catheterization with lithotripsy and stent deployment (10/31/2024). Presented with chest pain. - Troponins peaks to 7.08 -> 6.02, EKG without acute ischemic changes. - Discussed with Dr. Abdalla, advised to monitor overnight. - Patient remained stable and chest pain subsided with opioid pain control, chest pain likely from PCI. - No events on cardiac telemetry. - Discharged with asprin, Plavix, statin, bisoprolol, Entresto. - Will follow-up with cardiology within 1 week. Chronic HFrEF (stage C--- NYHA II) Telemetry monitoring Echo (10/13/2024): EF 40%, normal RV size and function, mild AI, mild MR Continue GDMT. Paroxysmal atrial fibrillation Telemetry monitoring Beta-lori therapy Factor Xa inhibitor therapy Triple anticoagulation therapy (ASA, P2Y12, Eliquis) for 30 days post stent De-escalate anticoagulation therapy as outpatient COPD not in exacerbation Tobacco dependence in remission Pulse oximetry monitoring Oxygen therapy to maintain appropriate oxygen saturations Fang/Emir inhalation therapy ICS/LAMA/LABA therapy Generalized anxiety disorder Routine nursing interaction SSRI therapy Admission QTc 458 MS Exam Data for Last 24 hours Vital signs and Labs for Last 24 Hours: Temp Pulse Resp BP Pulse Ox O2 Del Method O2 Flow Rate 97.8 F 55 L 18 110/67 95 Nasal Cannula 2 11/01/24 08:00 11/01/24 08:00 11/01/24 08:00 11/01/24 08:00 11/01/24 10:14 11/01/24 11:00 11/01/24 08:00 Laboratory Results - last 24 hr 10/31/24 20:38: WBC 7.8 D, RBC 5.28, Hgb 16.5 H, Hct 48.8 H, MCV 92.6, MCH 31.4 H, MCHC 33.9, RDW 14.7, Plt Count 339, MPV 7.4, Neut % (Auto) 54.2, Lymph % (Auto) 39.1, [place] % (Auto) 5.9, Eos % (Auto) 0.0 L, Baso % (Auto) 0.8, Neut # (Auto) 4.2, Lymph # (Auto) 3.1, [place] # (Auto) 0.5, Eos # (Auto) 0.0, Baso # (Auto) 0.1, Sodium 138, Potassium 4.6 D, Chloride 110 H, Carbon Dioxide 25, Anion Gap 7.6, BUN 6 L, Creatinine 0.70, Estimated Creat Clear 53, Estimated GFR 82, Est GFR ( Amer) 100, Glucose 76, Calcium 8.9, Total Bilirubin 1.3, AST 59 H, ALT 19, Alkaline Phosphatase 47, Troponin I 6.14 H, Total Protein 7.2, Albumin 4.1, Globulin 3.1, Albumin/Globulin Ratio 1.3 11/01/24 00:45: Troponin I 7.08 H 11/01/24 03:50: Troponin I 6.02 H 11/01/24 05:50: Sodium 139, Potassium 3.8, Chloride 113 H, Carbon Dioxide 27, Anion Gap 2.8 L, BUN 5 L, Creatinine 0.70, Estimated Creat Clear 54, Estimated GFR 82, Est GFR ( Amer) 100, Glucose 77, Calcium 7.8 L, Magnesium 1.9 I & O for Last 24 hours: Intake & Output 10/29/24 10/30/24 10/31/24 11/01/24 23:59 23:59 23:59 23:59 Intake Total 0 / 0 Output Total 0 / 0 0 / 0 Balance 0 / 0 0 / 0 Weight 67.54 kg 67.54 kg Constitutional Constitutional: no acute distress *Routine HEENT Exam Head: Present normocephalic Eye: Present EOMI and PERRL ENT: Present mucous membranes moist *Routine Neck Exam Neck: Present supple; Absent lymphadenopathy *Routine Respiratory Exam Respiratory: Present CTA bilaterally *Routine Cardiovascular Exam Cardiovascular: Present RRR *Routine Abdominal Exam Abdominal: Present soft and normoactive bowel sounds; Absent tenderness *Routine Extremities Exam Extremities: Absent cyanosis, clubbing or edema *Routine Skin Exam Skin: Present warm; Absent rash *Routine Neurological Exam Neurological: Present alert and oriented X3 Results Data Completed and Pending Labs on day of discharge: Labs from last 24 hours 11/01/24 11/01/24 11/01/24 05:50 03:50 00:45 WBC RBC Hgb Hct MCV MCH MCHC RDW Plt Count MPV Neut % (Auto) Lymph % (Auto) [place] % (Auto) Eos % (Auto) Baso % (Auto) Neut # (Auto) Lymph # (Auto) [place] # (Auto) Eos # (Auto) Baso # (Auto) Sodium 139 Potassium 3.8 Chloride 113 H Carbon Dioxide 27 Anion Gap 2.8 L BUN 5 L Creatinine 0.70 Estimated Creat Clear 54 Estimated GFR 82 Est GFR ( Amer) 100 Glucose 77 Calcium 7.8 L Magnesium 1.9 Total Bilirubin AST ALT Alkaline Phosphatase Troponin I 6.02 H 7.08 H Total Protein Albumin Globulin Albumin/Globulin Ratio 10/31/24 20:38 WBC 7.8 D RBC 5.28 Hgb 16.5 H Hct 48.8 H MCV 92.6 MCH 31.4 H MCHC 33.9 RDW 14.7 Plt Count 339 MPV 7.4 Neut % (Auto) 54.2 Lymph % (Auto) 39.1 [place] % (Auto) 5.9 Eos % (Auto) 0.0 L Baso % (Auto) 0.8 Neut # (Auto) 4.2 Lymph # (Auto) 3.1 [place] # (Auto) 0.5 Eos # (Auto) 0.0 Baso # (Auto) 0.1 Sodium 138 Potassium 4.6 D Chloride 110 H Carbon Dioxide 25 Anion Gap 7.6 BUN 6 L Creatinine 0.70 Estimated Creat Clear 53 Estimated GFR 82 Est GFR ( Amer) 100 Glucose 76 Calcium 8.9 Magnesium Total Bilirubin 1.3 AST 59 H ALT 19 Alkaline Phosphatase 47 Troponin I 6.14 H Total Protein 7.2 Albumin 4.1 Globulin 3.1 Albumin/Globulin Ratio 1.3 DS: Diagnosis Discharge Diagnosis (1) Unstable angina: Status: Acute Code(s): I20.0 - Unstable angina (2) CAD (coronary artery disease): Status: Chronic Code(s): I25.10 - Atherosclerotic heart disease of [place] coronary artery without angina pectoris Qualifiers: Associated angina: without angina Coronary Disease-Associated Artery/Lesion type: [place] artery [place] vs. transplanted heart: [place] heart Qualified Code(s): I25.10 - Atherosclerotic heart disease of [place] coronary artery without angina pectoris (3) HFrEF (heart failure with reduced ejection fraction): Status: Acute Code(s): I50.20 - Unspecified systolic (congestive) heart failure (4) COPD (chronic obstructive pulmonary disease): Status: Chronic Code(s): J44.9 - Chronic obstructive pulmonary disease, unspecified Qualifiers: COPD type: emphysema Emphysema type: centrilobular Qualified Code(s): J43.2 - Centrilobular emphysema Meds Home Medications and Allergies Home Medications ?Medication ?Instructions ?Recorded ?Confirmed ?Type albuterol sulfate 90 mcg/actuation 2 inh inhalation Q4HP PRN 10/12/24 11/01/24 History aerosol inhaler Shortness of breath apixaban 5 mg tablet (Eliquis) 5 mg PO BID 10/12/24 11/01/24 History bisoprolol fumarate 5 mg tablet 5 mg PO DAILY 10/12/24 11/01/24 History escitalopram oxalate 20 mg tablet 20 mg PO DAILY 10/12/24 11/01/24 History famotidine 20 mg tablet 20 mg PO BID 10/12/24 11/01/24 History montelukast 10 mg tablet 10 mg PO PM 10/12/24 11/01/24 History ropinirole 1 mg tablet 3 mg PO HS 10/12/24 11/01/24 History temazepam 15 mg capsule 15 mg PO HS 10/12/24 11/01/24 History trazodone 50 mg tablet 50 mg PO HS 10/12/24 11/01/24 History vibegron 75 mg tablet (Gemtesa) 75 mg PO DAILY 10/12/24 11/01/24 History benralizumab 30 mg/mL subcutaneous 30 mg SQ Q56D 10/13/24 11/01/24 History auto-injector (Fasenra Pen) budesonide 160 mcg-glycopyr 9 2 inh inhalation BIDRT 10/13/24 11/01/24 History mcg-formot 4.8 mcg/actuation HFA inhaler (Breztri Aerosphere) evolocumab 140 mg/mL subcutaneous 140 mg SQ Q14D 10/13/24 11/01/24 History pen injector (Repatha SureClick) fluticasone propionate 50 2 spray intranasal DAILY 10/13/24 11/01/24 History mcg/actuation nasal spray,suspension empagliflozin 10 mg tablet 10 mg PO DAILY 30 days #30 tabs 10/14/24 11/01/24 Rx (Jardiance) sacubitril 24 mg-valsartan 26 mg 1 tab PO BID 30 days #60 tabs 10/14/24 11/01/24 Rx tablet (Entresto) aspirin 81 mg capsule 81 mg PO DAILY #30 caps 10/31/24 11/01/24 Rx clopidogrel 75 mg tablet (Plavix) 75 mg PO DAILY #30 tabs 10/31/24 11/01/24 Rx ipratropium 0.5 mg-albuterol 3 mg 3 ml inhalation Q6HP PRN Shortness 11/01/24 11/01/24 History (2.5 mg base)/3 mL nebulization Of Breath Or Wheezing soln New Prescriptions to Start Prescriptions: Allergies Allergy/AdvReac Type Severity Reaction Status Date / Time codeine Allergy Mild Gastrointestinal Verified 10/28/24 13:22 Upset diphenhydramine (From Allergy Mild Flushing Verified 10/28/24 13:22 Benadryl) Penicillins Allergy Mild Hives Verified 10/28/24 13:22 lorazepam (From Ativan) Allergy Anxiety Verified 10/31/24 23:39 isosorbide AdvReac Intermediate Severe [place] Verified 10/28/24 13:22 diazepam (From Valium) AdvReac Mild Agitated Verified 10/28/24 13:22 hydrocodone AdvReac Hives Verified 11/01/24 00:07 Discharge Plan Disposition Patient Disposition: Home, Self-Care Condition: Fair Follow up Plan Follow up with: Michael Baez MD [Primary Care Provider] - Enter time for follow up (Please call SundayNovember 03 to schedule your hospital follow up appointment! Thank you! ) Prescriptions/Medication Reconciliation: Continued ropinirole 1 mg tablet 3 mg PO HS trazodone 50 mg tablet 50 mg PO HS bisoprolol fumarate 5 mg tablet 5 mg PO DAILY famotidine 20 mg tablet 20 mg PO BID temazepam 15 mg capsule 15 mg PO HS montelukast 10 mg tablet 10 mg PO PM albuterol sulfate 90 mcg/actuation HFA aerosol inhaler 2 inh INHALATION Q4HP PRN (Reason: Shortness of breath) escitalopram oxalate 20 mg tablet 20 mg PO DAILY Eliquis 5 mg tablet 5 mg PO BID Gemtesa 75 mg tablet 75 mg PO DAILY Fasenra Pen 30 mg/mL auto-injector 30 mg SQ Q56D Breztri Aerosphere 160-9-4.8 mcg/actuation HFA aerosol inhaler 2 inh INHALATION BIDRT fluticasone propionate 50 mcg/actuation spray,suspension 2 spray INTRANASAL DAILY Repatha SureClick 140 mg/mL pen injector 140 mg SQ Q14D sacubitril-valsartan [Entresto] 24-26 mg Tablet 1 tab PO BID 30 Days Qty: 60 0RF Jardiance 10 mg Tablet 10 mg PO DAILY 30 Days Qty: 30 0RF ipratropium-albuterol 0.5 mg-3 mg(2.5 mg base)/3 mL solution for nebulization 3 ml inhalation Q6HP PRN (Reason: Shortness Of Breath Or Wheezing) clopidogrel [Plavix] 75 mg Tablet 75 mg PO DAILY Qty: 30 6RF aspirin 81 mg Capsule 81 mg PO DAILY Qty: 30 3RF Problem Reconciliation Problems Reviewed?: Yes Patient Discharge Instructions Patient Instructions: DI for Chest Pain Print Language: [place] Providers Primary Care Provider: Michael Baez Admit Provider: Shahid Nunez Attending Provider: Shahid Nunez
[2024-11-01] MEDS: ROPINIROLE 1MG TABLET 3 MG PO (11:53)
[2024-11-01 12:00] VITALS: BP 117/63; PULSE 61; RESP 16; TEMP 36.9; O2SAT 94
--- NOTE | 2024-11-03 12:26 | SW/DCPLANNER ---
Spoke with patient on the phone. Patient stated that she is doing okay but its slow. Patient stated that she was supposed to have a follow up appointment with her family DR najera but had to call and cancel it due to not having a ride. Patient stated that they are supposed to be calling her back with an appointment. Patient asked for DR Nguyễn phone number due to the one she had was disconnected. Justina Jameson
== END 2024-11-01 13:25 | disposition home or self-care (01) ==
LOC: ER 23:05 → 2ND 23:31
PROVIDERS: Family Medicine; Admitting Provider Student in an Organized Health Care Education/Training Program; Emergency Provider Student in an Organized Health Care Education/Training Program; PCP Internal Medicine Adolescent Medicine; Visit Provider Student in an Organized Health Care Education/Training Program
DX: I25.110 Atherosclerotic heart disease of native coronary artery with unstable angina pectoris (principal); I11.0 Hypertensive heart disease with heart failure; I50.20 Unspecified systolic (congestive) heart failure; J43.2 Centrilobular emphysema; I48.0 Paroxysmal atrial fibrillation; Z95.1 Presence of aortocoronary bypass graft; Z79.01 Long term (current) use of anticoagulants; Z79.899 Other long term (current) drug therapy; D68.2 Hereditary deficiency of other clotting factors; Z87.891 Personal history of nicotine dependence
CPT/HCPCS: 36415; 71045; 80048; 80053; 83735; 84484; 85025; 85027; 85347; 92928; 92972; 93005; 94640; 99152; 99153; 99291; C1725; C1761; C1769; C1874; C9600; G0378; J1644; J2250; J2270; J3010; J7030; Q9967

== ENCOUNTER 2025-01-10 21:16 | Observation (INO) | payer MEDICARE, SELFPAY ==
[2025-01-10] VITALS (12 sets, daily range): BP systolic 159–191; BP diastolic 92–138; PULSE 56–68; RESP 13–20; TEMP 36.9; O2SAT 90–98; BMI 20.1
[2025-01-10] MEDS: ASPIRIN 81MG CHEWABLE TABLET 243 MG PO (21:27)
--- NOTE | 2025-01-10 21:29 | XR_ITS ---
PROCEDURE INFORMATION: Exam: XR Chest Exam date and time: 01/10/2025 9:37 PM Age: 74 years old Clinical indication: Pain; Chest pressure; Additional info: Chest pain TECHNIQUE: Imaging protocol: Radiologic exam of the chest. Views: 1 view. COMPARISON: CR XR CHEST PORTABLE 10/31/2024 9:35 PM FINDINGS: Lungs: Unremarkable. No consolidation. Pleural spaces: Unremarkable. No pleural effusion. No pneumothorax. Heart/Mediastinum: Unremarkable. No cardiomegaly. Bones/joints: Unremarkable. IMPRESSION: No acute findings.
--- NOTE | 2025-01-10 21:29 | ECG_ITS ---
APPROVED REPORT Exam: Resting ECG HR:58 bpm ECG Measurements Heart Rate [address] 195 P 64 QRSd 112 QRS 53 QT 476 T 78 QTc 473 Conclusion SINUS BRADYCARDIA WITH SINUS ARRHYTHMIA MODERATE INTRAVENTRICULAR CONDUCTION DELAY [105+ ms QRS DURATION, 80+ ms Q/S IN V1/V2, NO Q AND 60+ ms R IN I/aVL/V5/V6] NONSPECIFIC ST & T-WAVE ABNORMALITY PROLONGED QT INTERVAL ABNORMAL ECG UNCONFIRMED REPORT Electronically signed by : Amanda Sargent, 01/15/2025 16:38:17
[2025-01-10 21:38] LABS: Basophils % 0.3 % (0.1-2.0); Hematocrit 45.8 % (37.0-47.0); Hemoglobin 15.4 g/dL (12.2-16.2); Lymphocytes # 3.5 K/mm3 (0.7-4.5); Lymphocytes % 35.4 % (10-50); Mean Corpuscular HGB Conc 33.6 g/dL (31.8-35.4); Mean Corpuscular Hemoglobin 31.1 pg (27.0-31.2); Mean Corpuscular Volume 92.5 fl (81-99); Mean Platelet Volume 9.6 fl (7.4-10.4); Monocytes # 0.8 K/mm3 (0.1-1.0); Monocytes % 8.2 % (1.7-9.3); Neutrophils # 5.4 K/mm3 (1.8-7.8); Neutrophils % 55.8 % (37.0-80.0); Platelet Count 347 K/mm3 (142-424); Red Blood Count 4.95 M/mm3 (4.20-5.40); Red Cell Distribution Width 12.6 % (11.5-17.5); White Blood Count 9.8 K/mm3 (4.8-10.8)
[2025-01-10] MEDS: MORPHINE 4MG/ML SYRINGE 2 MG IV (21:39)
[2025-01-10 21:41] LABS: Albumin Level 4.5 g/dl (3.5-5.0); Chloride 105 mmol/L (98-107)
[2025-01-10 21:42] LABS: Potassium 3.8 mmoL/L (3.5-5.1); Sodium 140 mmol/L (136-145)
[2025-01-10 21:44] LABS: Alanine Aminotransferase 18 U/L (12-78); Anion Gap 9.8 mEq/L (5-15); Aspartate Amino Transferase 35 U/L (14-36); Blood Urea Nitrogen 15 mg/dl (7-17); Carbon Dioxide 29 mmol/L (22.0-30.0); Creatinine Clearance Estimated 39 mL/min (50-200); Estimated Glomerular Filt Rate 98 ml/min (>60); GFR (African American) 119 ML/MIN (>60)
[2025-01-10 21:45] LABS: Albumin/Globulin Ratio 1.6 (1.1-1.8); Alkaline Phosphatase 51 U/L (38-126); Bilirubin,Total 0.6 mg/dl (0.2-1.3); Calcium 9.3 mg/dl (8.4-10.2); Globulin 2.9 g/dL (1.3-3.2); Glucose 83 mg/dl (74-100); Total Protein,Serum 7.4 g/dl (6.3-8.2)
[2025-01-10 21:57] LABS: Troponin I 0.01 ng/ml (0.00-0.034)
[2025-01-10] MEDS: BELLADONNA ALKALOIDS 60 ML ML PO (22:09)
[2025-01-10] MEDS: SODIUM CHLORIDE 0.9% 10ML VIAL 10 ML IV (22:09)
[2025-01-10] MEDS: PANTOPRAZOLE 40MG VIAL 40 MG IV (22:10)
[2025-01-10] MEDS: ROPINIROLE 1MG TABLET 2 MG PO (23:21)
--- NOTE | 2025-01-10 23:51 | [facility].EDCP ---
Discharge Plan Disposition Patient Disposition: Admitted Prescriptions Prescriptions: No Action fluticasone propionate 50 mcg/actuation spray,suspension See Rx Instructions .ROUTE .COMPLEX Qty: 16 0RF Dose Instruction: USE 2 SPRAYS IN EACH NOSTRIL ONCE A DAY Rx Instructions: USE 2 SPRAYS IN EACH NOSTRIL ONCE A DAY fluticasone propion-salmeterol [Advair Diskus] 500-50 mcg/dose blister with device 1 inh inhalation BID Qty: 180 2RF tiotropium bromide [Spiriva with HandiHaler] 18 mcg capsule, w/inhalation device 1 cap inhalation DAILY Qty: 90 2RF Rx Instructions: puncture 1 cap using device; one dose = 2 inhalations ropinirole 1 mg tablet 3 mg PO HS trazodone 50 mg tablet 50 mg PO HS bisoprolol fumarate 5 mg tablet 5 mg PO DAILY famotidine 20 mg tablet 20 mg PO BID temazepam 15 mg capsule 15 mg PO HS montelukast 10 mg tablet 10 mg PO PM albuterol sulfate 90 mcg/actuation HFA aerosol inhaler 2 inh INHALATION Q4HP PRN (Reason: Shortness of breath) escitalopram oxalate 20 mg tablet 20 mg PO DAILY Eliquis 5 mg tablet 5 mg PO BID Gemtesa 75 mg tablet 75 mg PO DAILY Fasenra Pen 30 mg/mL auto-injector 30 mg SQ Q56D fluticasone propionate 50 mcg/actuation spray,suspension 2 spray INTRANASAL DAILY Repatha SureClick 140 mg/mL pen injector 140 mg SQ Q14D sacubitril-valsartan [Entresto] 24-26 mg Tablet 1 tab PO BID 30 Days Qty: 60 0RF Jardiance 10 mg Tablet 10 mg PO DAILY 30 Days Qty: 30 0RF ipratropium-albuterol 0.5 mg-3 mg(2.5 mg base)/3 mL solution for nebulization 3 ml inhalation Q6HP PRN (Reason: Shortness Of Breath Or Wheezing) clopidogrel [Plavix] 75 mg Tablet 75 mg PO DAILY Qty: 30 6RF aspirin 81 mg Capsule 81 mg PO DAILY Qty: 30 3RF Referrals Follow up/Referrals: Michael Baez MD [Primary Care Provider] - See instructions Clinical Impressions Clinical Impression: Chest pain Print Language Print Language: Belarusian Discharge ED Provider: Amanda Sargent HPI <Amanda Sargent MD - Last Filed: 01/10/25 23:57> General Chief Complaint: Chest Pain Stated Complaint: chest pain Time Seen by Provider: 01/10/25 21:27 Mode of Arrival: Ambulatory Source of Information: Spouse Limitations: No Limitations Description of Symptoms (Recalled from ER Triage Doc. by RN): Pt began having chest pain 20 mins prior to arriving at the hosp. She reports having nausea. She denies taking any nitro prior to arrival. History of Present Illness HPI narrative: Supriya Andres is a 74 y/o female presenting with chest pain. Patient states approximately 30 minutes prior to arrival she had acute onset chest pain with pressure, belching, radiation to her left shoulder. Patient states she ate chili for dinner and had a blackberry cobbler for dessert. Pain started almost immediately after eating the cobbler. Patient has a significant history of recent cardiac catheterization and stent placement. Patient takes Eliquis, Plavix, aspirin. Patient took all her medications today as prescribed. Patient denies headache, neck pain, back pain, diaphoresis. Patient was nauseous and did not vomit prior to arrival. Related Data Home Medications ?Medication ?Instructions ?Recorded ?Confirmed albuterol sulfate 90 mcg/actuation 2 inh inhalation Q4HP PRN 10/12/24 11/01/24 aerosol inhaler Shortness of breath apixaban 5 mg tablet (Eliquis) 5 mg PO BID 10/12/24 11/01/24 bisoprolol fumarate 5 mg tablet 5 mg PO DAILY 10/12/24 11/01/24 escitalopram oxalate 20 mg tablet 20 mg PO DAILY 10/12/24 11/01/24 famotidine 20 mg tablet 20 mg PO BID 10/12/24 11/01/24 montelukast 10 mg tablet 10 mg PO PM 10/12/24 11/01/24 ropinirole 1 mg tablet 3 mg PO HS 10/12/24 11/01/24 temazepam 15 mg capsule 15 mg PO HS 10/12/24 11/01/24 trazodone 50 mg tablet 50 mg PO HS 10/12/24 11/01/24 vibegron 75 mg tablet (Gemtesa) 75 mg PO DAILY 10/12/24 11/01/24 benralizumab 30 mg/mL subcutaneous 30 mg SQ Q56D 10/13/24 11/01/24 auto-injector (Fasenra Pen) evolocumab 140 mg/mL subcutaneous 140 mg SQ Q14D 10/13/24 11/01/24 pen injector (Naeem Vincentick) fluticasone propionate 50 2 spray intranasal DAILY 10/13/24 11/01/24 mcg/actuation nasal spray,suspension ipratropium 0.5 mg-albuterol 3 mg 3 ml inhalation Q6HP PRN Shortness 11/01/24 11/01/24 (2.5 mg base)/3 mL nebulization Of Breath Or Wheezing soln Previous Rx's ?Medication ?Instructions ?Recorded empagliflozin 10 mg tablet 10 mg PO DAILY 30 days #30 tabs 10/14/24 (Jardiance) sacubitril 24 mg-valsartan 26 mg 1 tab PO BID 30 days #60 tabs 10/14/24 tablet (Entresto) aspirin 81 mg capsule 81 mg PO DAILY #30 caps 10/31/24 clopidogrel 75 mg tablet (Plavix) 75 mg PO DAILY #30 tabs 10/31/24 fluticasone propionate 50 See Rx Instructions .Route 11/27/24 mcg/actuation nasal .COMPLEX #16 grams spray,suspension Spiriva with HandiHaler 18 mcg and 1 cap inhalation DAILY #90 puffs 12/03/24 inhalation capsules (tiotropium bromide) fluticasone 500 mcg-salmeterol 50 1 inh inhalation BID #180 ea 12/03/24 mcg/dose blistr powdr for inhalation (Advair Diskus) Allergies Allergy/AdvReac Type Severity Reaction Status Date / Time codeine Allergy Mild Gastrointestinal Verified 01/10/25 21:50 Upset diphenhydramine (From Allergy Mild Flushing Verified 01/10/25 21:50 Benadryl) Penicillins Allergy Mild Hives Verified 01/10/25 21:50 lorazepam (From Ativan) Allergy Anxiety Verified 01/10/25 21:50 isosorbide AdvReac Intermediate Severe CHENEY Verified 01/10/25 21:50 diazepam (From Valium) AdvReac Mild Agitated Verified 01/10/25 21:50 hydrocodone AdvReac Hives Verified 01/10/25 21:50 PFS <Amanda Sargent MD - Last Filed: 01/10/25 23:57> [facility] Disclaimer: The information contained in this section may have been updated after the patient was seen, as this information can be updated by other users. Medical History (Updated 01/11/25 @ 01:38 by Eric Myers MD) History of left heart catheterization Abnormal echocardiogram HFrEF (heart failure with reduced ejection fraction) Peripheral eosinophilia Severe persistent asthma Stopped smoking with greater than 30 pack year history Eosinophilia (Unknown) Allergic rhinitis Asthma History of smoking 30 or more pack years Acute respiratory failure with hypoxia Restless leg syndrome Hyperlipidemia Hypertension Atrial fibrillation Anxiety Depression COPD (chronic obstructive pulmonary disease) Thoracic compression fracture Former smoker CAD (coronary artery disease) Surgical History History of colon resection History of bilateral knee replacement H/O: hysterectomy Status post ablation of atrial fibrillation Hx of CABG Family History Other No significant family history Social History Smoking Status: Current every day smoker years smoked: 56 how long ago did patient quit smoking: july 2022 quit status: quit date established second hand exposure: No alcohol intake: never substance use type: denies use current occupational status: retired Travel in the last 8 weeks: None household members: spouse and children housing: house lives independently: No marital status: education level: college current occupational exposures/hazards: No caffeine: Yes Have you lived/traveled outside [place] in past 30 days?: No Contact w/someone who lives/traveled outside US past 30 days?: No Exposure to someone with infectious disease in past 14 days?: No Do you have a fever (greater than 100.4 F or 38 C)?: No Have you tested positive for COVID-19: No Exposed to someone with COVID-19 in past 14 days?: No Do you have a sore throat?: No Do you have a cough?: No Do you have any weakness?: No Do you have any diarrhea?: No Are you experiencing any unusual bleeding?: No Do you have any muscle aches/pain?: No Do you have any abdominal pain?: No Are you experiencing loss of taste or smell?: No Other Medical History Have you received the Flu Vaccine for this season: No Have you received the Pneumonia Vaccine: No <Amanda Sargent MD - Last Filed: 01/10/25 23:57> ROS Obtained: Yes All systems reviewed & no additional complaints except as documented Physical Exam <Amanda Sargent MD - Last Filed: 01/10/25 23:57> General General appearance: alert and in distress Head Head exam: atraumatic Eye Eye exam: Present EOMI; Absent scleral icterus ENT ENT exam: Present normal exam Neck Neck exam: Present full ROM Expanded Neck Exam Neck exam focused ED: Absent JVD Chest Chest inspection: Present symmetric chest wall rise Respiratory Respiratory exam: Present normal lung sounds bilaterally Cardiovascular Cardiovascular exam: Present normal rhythm, bradycardia and normal heart sounds Abdominal Exam Abdominal exam: Present soft; Absent distention or tenderness Extremities Exam Extremities exam: Present full ROM; Absent edema Back Exam Back exam: Present full ROM Neurological Exam Neurological exam: Present alert and oriented X3 Psychiatric Psychiatric exam: Present normal mood Skin Skin exam: Present warm and dry HEART Score <Amanda Sargent MD - Last Filed: 01/10/25 23:57> HEART Score HEART Score assessment performed?: Yes History (anamnesis): Highly suspicious ECG: Non-specific disturbance Age: >65 years Risk factors: 1-2 risk factors Troponin: </= normal limit HEART Score: 6 <Eric Myers MD - Last Filed: 01/11/25 01:39> HEART Score HEART Score: 6 Critical Care <Amanda Sargent MD - Last Filed: 01/10/25 23:57> Critical Care Time Critical Care Time: No Medical Decision Making <Amanda Sargent MD - Last Filed: 01/10/25 23:57> Medical Records Medical records reviewed: Yes I reviewed the patient's medical records. Donald Inquiry Pt receiving controlled substance: No Donald was queried for this patient: No Vital Signs Vital Signs: 01/10/25 21:16 01/10/25 21:52 Temperature 98.5 F Temperature Source Oral Pulse Rate 61 Pulse Rate [Right Brachial] 56 L Respiratory Rate 17 15 Blood Pressure [Right Arm] 190/110 H Blood Pressure Mean [Right Arm] 136 Blood Pressure Source [Right Arm] Automatic Cuff Blood Pressure Position [Right Arm] Sitting 02 Sat by Pulse Oximetry 90 L 98 Oxygen Delivery Method Room Air Lab Data Lab results reviewed: Yes I reviewed the patient's lab results. Labs: Lab Results 01/10/25 21:21: WBC 9.8, RBC 4.95, Hgb 15.4, Hct 45.8, MCV 92.5, MCH 31.1, MCHC 33.6, RDW 12.6, Plt Count 347, MPV 9.6, Neut % (Auto) 55.8, Lymph % (Auto) 35.4, [place] % (Auto) 8.2, Eos % (Auto) 0.0 L, Baso % (Auto) 0.3, Neut # (Auto) 5.4, Lymph # (Auto) 3.5, [place] # (Auto) 0.8, Eos # (Auto) 0.0, Baso # (Auto) 0.0, Sodium 140, Potassium 3.8, Chloride 105, Carbon Dioxide 29, Anion Gap 9.8, BUN 15, Creatinine 0.60, Estimated Creat Clear 39, Estimated GFR 98, Est GFR ( Amer) 119, Glucose 83, Calcium 9.3, Total Bilirubin 0.6, AST 35, ALT 18, Alkaline Phosphatase 51, Troponin I 0.01, Total Protein 7.4, Albumin 4.5, Globulin 2.9, Albumin/Globulin Ratio 1.6 01/11/25 00:22: Troponin I < 0.01 01/10/25 21:21 01/10/25 21:21 Response Orders (Tests/Meds): ED MEDICATIONS Generic Name Dose Route Start Last Admin Trade Name Freq PRN Reason Stop Dose Admin Nitroglycerin 0.4 mg 01/10/25 21:29 Nitroglycerin 0.4mg Sl Tablet SL 01/11/25 21:29 Q5MINP PRN Chest Pain Sodium Chloride 10 ml 01/10/25 22:04 01/10/25 22:09 Sodium Chloride 0.9% 10ml Vial IV 02/09/25 22:03 10 ml NEEDED PRN Administration dilute protonix Discontinued Medications Generic Name Dose Route Start Last Admin Trade Name Freq PRN Reason Stop Dose Admin Aspirin 243 mg 01/10/25 21:26 01/10/25 21:27 Aspirin 81mg Chewable Tablet PO 01/10/25 21:27 243 mg ONCE ONE Administration Belladonna Alkaloids 60 ml 01/10/25 22:04 01/10/25 22:09 Belladonna Alkaloids 60 Ml Ml PO 01/10/25 22:05 60 ml ONCE ONE Administration Morphine Sulfate 2 mg 01/10/25 21:29 01/10/25 21:39 Morphine 4mg/Ml Syringe IV 01/10/25 21:30 2 mg ONCE ONE Administration Pantoprazole Sodium 40 mg 01/10/25 22:04 01/10/25 22:10 Pantoprazole 40mg Vial IV 01/10/25 22:05 40 mg ONCE ONE Administration Ropinirole HCl 2 mg 01/10/25 23:12 01/10/25 23:21 Ropinirole 1mg Tablet PO 01/10/25 23:13 2 mg ONCE ONE Administration ORDERS Category Date Time Status POCUS Point of Care (ER Only) Stat Exams 01/10/25 21:46 Completed XR chest portable Stat Exams 01/10/25 21:29 Completed Complete Blood Count Auto Diff Stat Lab 01/10/25 21:21 Completed Comprehensive Metabolic Panel Stat Lab 01/10/25 21:21 Completed Troponin I Q2H Lab 01/11/25 00:22 Completed Troponin I Stat Lab 01/10/25 21:21 Completed ECG Data Tracing #1: Attestation: I reviewed this ECG and interpreted as documented below: ECG Narrative: Sinus bradycardia with a rate of 58, no QTc prolongation, no significant ST elevation/depression or evidence of acute ischemia MDM Narrative Medical Decision Narrative: In summary, this is a 74-year-old female presenting with chest pain that started approximately 30 minutes prior to arrival. Differential diagnosis includes but not limited to, ACS, PE, aortic dissection, gastric reflux, esophageal rupture, pneumonia, among others. Given patient's significant cardiac history, patient will be evaluated for ACS primarily. Patient given aspirin load and morphine for pain control. Labs sent includes CBC, CMP, troponin, CXR, EKG, bedside cardiac ultrasound. Evaluation of labs negative for leukocytosis, anemia, thrombocytopenia. CMP nonactionable. Initial troponin 0.01. CXR personally reviewed by me and negative for acute consolidation, pleural effusion, cardiomegaly or widened mediastinum. Bedside cardiac ultrasound with bradycardia, no focal wall motion abnormalities or pericardial effusion. Additional treatment with GI cocktail and IV Protonix given. At this time, care signed over to Dr. Myers pending repeat troponin and reevaluation. <Eric Myers MD - Last Filed: 01/11/25 01:39> Vital Signs Vital Signs: 01/10/25 21:16 01/10/25 21:52 Temperature 98.5 F Temperature Source Oral Pulse Rate 61 Pulse Rate [Right Brachial] 56 L Respiratory Rate 17 15 Blood Pressure [Right Arm] 190/110 H Blood Pressure Mean [Right Arm] 136 Blood Pressure Source [Right Arm] Automatic Cuff Blood Pressure Position [Right Arm] Sitting 02 Sat by Pulse Oximetry 90 L 98 Oxygen Delivery Method Room Air Lab Data Labs: Lab Results 01/10/25 21:21: WBC 9.8, RBC 4.95, Hgb 15.4, Hct 45.8, MCV 92.5, MCH 31.1, MCHC 33.6, RDW 12.6, Plt Count 347, MPV 9.6, Neut % (Auto) 55.8, Lymph % (Auto) 35.4, [place] % (Auto) 8.2, Eos % (Auto) 0.0 L, Baso % (Auto) 0.3, Neut # (Auto) 5.4, Lymph # (Auto) 3.5, [place] # (Auto) 0.8, Eos # (Auto) 0.0, Baso # (Auto) 0.0, Sodium 140, Potassium 3.8, Chloride 105, Carbon Dioxide 29, Anion Gap 9.8, BUN 15, Creatinine 0.60, Estimated Creat Clear 39, Estimated GFR 98, Est GFR ( Amer) 119, Glucose 83, Calcium 9.3, Total Bilirubin 0.6, AST 35, ALT 18, Alkaline Phosphatase 51, Troponin I 0.01, Total Protein 7.4, Albumin 4.5, Globulin 2.9, Albumin/Globulin Ratio 1.6 01/11/25 00:22: Troponin I < 0.01 Response Orders (Tests/Meds): ED MEDICATIONS Generic Name Dose Route Start Last Admin Trade Name Freq PRN Reason Stop Dose Admin Nitroglycerin 0.4 mg 01/10/25 21:29 Nitroglycerin 0.4mg Sl Tablet SL 01/11/25 21:29 Q5MINP PRN Chest Pain Sodium Chloride 10 ml 01/10/25 22:04 01/10/25 22:09 Sodium Chloride 0.9% 10ml Vial IV 02/09/25 22:03 10 ml NEEDED PRN Administration dilute protonix Discontinued Medications Generic Name Dose Route Start Last Admin Trade Name Freq PRN Reason Stop Dose Admin Aspirin 243 mg 01/10/25 21:26 01/10/25 21:27 Aspirin 81mg Chewable Tablet PO 01/10/25 21:27 243 mg ONCE ONE Administration Belladonna Alkaloids 60 ml 01/10/25 22:04 01/10/25 22:09 Belladonna Alkaloids 60 Ml Ml PO 01/10/25 22:05 60 ml ONCE ONE Administration Morphine Sulfate 2 mg 01/10/25 21:29 01/10/25 21:39 Morphine 4mg/Ml Syringe IV 01/10/25 21:30 2 mg ONCE ONE Administration Pantoprazole Sodium 40 mg 01/10/25 22:04 01/10/25 22:10 Pantoprazole 40mg Vial IV 01/10/25 22:05 40 mg ONCE ONE Administration Ropinirole HCl 2 mg 01/10/25 23:12 01/10/25 23:21 Ropinirole 1mg Tablet PO 01/10/25 23:13 2 mg ONCE ONE Administration ORDERS Category Date Time Status POCUS Point of Care (ER Only) Stat Exams 01/10/25 21:46 Completed XR chest portable Stat Exams 01/10/25 21:29 Completed Complete Blood Count Auto Diff Stat Lab 01/10/25 21:21 Completed Comprehensive Metabolic Panel Stat Lab 01/10/25 21:21 Completed Troponin I Q2H Lab 01/11/25 00:22 Completed Troponin I Stat Lab 01/10/25 21:21 Completed MDM Narrative Medical Decision Narrative: In summary, this is a 74-year-old female presenting with chest pain that started approximately 30 minutes prior to arrival. Differential diagnosis includes but not limited to, ACS, PE, aortic dissection, gastric reflux, esophageal rupture, pneumonia, among others. Given patient's significant cardiac history, patient will be evaluated for ACS primarily. Patient given aspirin load and morphine for pain control. Labs sent includes CBC, CMP, troponin, CXR, EKG, bedside cardiac ultrasound. Evaluation of labs negative for leukocytosis, anemia, thrombocytopenia. CMP nonactionable. Initial troponin 0.01. CXR personally reviewed by me and negative for acute consolidation, pleural effusion, cardiomegaly or widened mediastinum. Bedside cardiac ultrasound with bradycardia, no focal wall motion abnormalities or pericardial effusion. Additional treatment with GI cocktail and IV Protonix given. At this time, care signed over to Dr. Myers pending repeat troponin and reevaluation. Myers: I assumed care of this patient at 2300 hrs. She states at this time she is resting comfortably. She told me this is exactly how my last 2 heart attacks started . This significantly increases my concern regarding her symptoms despite her being asymptomatic at this time. I reviewed labs and imaging and agree with Dr. Sargent's assessment. Repeat troponin is unchanged. I discussed admission versus staying in the ER for more serial troponins, patient reports I would rather be safe than sorry . Given her extensive cardiac history and report of her symptoms being identical to her previous WI, I believe being admitted is the best option and recommended this to her. She is agreeable to this. I discussed this case with the hospitalist. Patient was accepted for admission in stable condition.
[2025-01-11] VITALS (14 sets, daily range): BP systolic 129–168; BP diastolic 76–103; PULSE 60–86; RESP 12–21; TEMP 36.7–36.9; O2SAT 91–97; BMI 26.4
--- NOTE | 2025-01-11 00:44 | PC.NURSE ---
Pt with no complaints at this time.
[2025-01-11 00:52] LABS: Troponin I < 0.01 ng/ml (0.00-0.034)
--- NOTE | 2025-01-11 02:00 | PC.NURSE ---
Report called to PAULINO Ontiveros.
--- NOTE | 2025-01-11 02:05 | CT_ITS ---
PROCEDURE INFORMATION: Exam: CT Abdomen And Pelvis With Contrast Exam date and time: 01/11/2025 2:39 AM Age: 74 years old Clinical indication: Abdominal pain; Epigastric; Additional info: Epigastric pain TECHNIQUE: Imaging protocol: Computed tomography of the abdomen and pelvis with contrast. Radiation optimization: All CT scans at this facility use at least one of these dose optimization techniques: automated exposure control; mA and/or kV adjustment per patient size (includes targeted exams where dose is matched to clinical indication); or iterative reconstruction. Contrast material: ISOVUE; Contrast volume: 70 ml; Contrast route: IV; COMPARISON: CT ABDOMEN PELVIS W CON 04/10/2024 5:33 PM FINDINGS: Heart: Cardiomegaly with left atrial dilatation. Coronary arteries: Extensive coronary calcium. Liver: The liver is low in density. Gallbladder and biliary ducts: Normal. No calcified stones. No ductal dilation. Pancreas: Normal. No ductal dilation. Spleen: Normal. No splenomegaly. Adrenal glands: Normal. No mass. Kidneys and ureters: Normal. No hydronephrosis. Stomach and bowel: Moderate retained stool is seen in the colon. Appendix: No evidence of appendicitis. Intraperitoneal space: Unremarkable. No free air. No significant fluid collection. Vasculature: Unremarkable. No abdominal aortic aneurysm. Lymph nodes: Unremarkable. No enlarged lymph nodes. Urinary bladder: Unremarkable as visualized. Reproductive: Hysterectomy. Bones/joints: Unremarkable. No acute fracture. Soft tissues: Unremarkable. IMPRESSION: 1. No acute process to explain the patient's symptoms. 2. Cardiomegaly with coronary atherosclerosis and left atrial dilatation. 3. Mild diffuse hepatic steatosis. 4. Moderate retained stool in the colon. 5. Hysterectomy.
--- NOTE | 2025-01-11 02:13 | P.HP_ITS ---
<Statement entered by Shahid Nunez MD - 01/13/25 14:24> I personally examined the patient and agree with the plan of care outlined by the CAPTURE MANAGER. History of Present Illness *Admission Date: 01/11/25 *Reason for visit:: Chest pain *History of present illness: This is a 74-year-old female with a significant cardiac history, anxiety, atrial fibrillation, diastolic heart failure who presents to the emergency department today with epigastric pain and belching. She reports she was doing well and develops belching after eating chili last night. States that her pain radiated from epigastric region through to her back. States that this pain is similar to prior heart attacks. Out of abundance precaution she presented to the emergency department. She denies any fever. Does endorse mild nausea. On exam patient does have some epigastric and right upper quadrant tenderness on palpation. States that her pain has been intermittent and nothing makes it worse or better. Emergency department workup unremarkable. Troponin negative x 2. Given patient's significant history it was felt that she would benefit from overnight hospitalization. She is admitted to hospitalist service. [facility] Disclaimer: The information contained in this section may have been updated after the patient was seen, as this information can be updated by other users. Medical History (Updated 01/11/25 @ 02:17 by JEANNIE Rodríguez) History of left heart catheterization Abnormal echocardiogram HFrEF (heart failure with reduced ejection fraction) Peripheral eosinophilia Severe persistent asthma Stopped smoking with greater than 30 pack year history Eosinophilia (Unknown) Allergic rhinitis Asthma History of smoking 30 or more pack years Acute respiratory failure with hypoxia Restless leg syndrome Hyperlipidemia Hypertension Atrial fibrillation Anxiety Depression COPD (chronic obstructive pulmonary disease) Thoracic compression fracture Former smoker CAD (coronary artery disease) Surgical History History of colon resection History of bilateral knee replacement H/O: hysterectomy Status post ablation of atrial fibrillation Hx of CABG Family History Other No significant family history Social History Smoking Status: Current every day smoker years smoked: 56 how long ago did patient quit smoking: july 2022 quit status: quit date established second hand exposure: No alcohol intake: never substance use type: denies use current occupational status: retired Travel in the last 8 weeks: None household members: spouse and children housing: house lives independently: No marital status: education level: college current occupational exposures/hazards: No caffeine: Yes Have you lived/traveled outside [place] in past 30 days?: No Contact w/someone who lives/traveled outside US past 30 days?: No Exposure to someone with infectious disease in past 14 days?: No Do you have a fever (greater than 100.4 F or 38 C)?: No Have you tested positive for COVID-19: No Exposed to someone with COVID-19 in past 14 days?: No Do you have a sore throat?: No Do you have a cough?: No Do you have any weakness?: No Do you have any diarrhea?: No Are you experiencing any unusual bleeding?: No Do you have any muscle aches/pain?: No Do you have any abdominal pain?: No Are you experiencing loss of taste or smell?: No Other Medical History Have you received the Flu Vaccine for this season: No Have you received the Pneumonia Vaccine: No Review of Systems Review of Systems Review of systems:: pertinent systems reviewed and negative unless documented below Review of systems (narrative): Negative except for HPI Meds Home Medications and Allergies Home Medications ?Medication ?Instructions ?Recorded ?Confirmed ?Type albuterol sulfate 90 mcg/actuation 2 inh inhalation Q4HP PRN 10/12/24 11/01/24 History aerosol inhaler Shortness of breath apixaban 5 mg tablet (Eliquis) 5 mg PO BID 10/12/24 11/01/24 History bisoprolol fumarate 5 mg tablet 5 mg PO DAILY 10/12/24 11/01/24 History escitalopram oxalate 20 mg tablet 20 mg PO DAILY 10/12/24 11/01/24 History famotidine 20 mg tablet 20 mg PO BID 10/12/24 11/01/24 History montelukast 10 mg tablet 10 mg PO PM 10/12/24 11/01/24 History ropinirole 1 mg tablet 3 mg PO HS 10/12/24 11/01/24 History temazepam 15 mg capsule 15 mg PO HS 10/12/24 11/01/24 History trazodone 50 mg tablet 50 mg PO HS 10/12/24 11/01/24 History vibegron 75 mg tablet (Gemtesa) 75 mg PO DAILY 10/12/24 11/01/24 History benralizumab 30 mg/mL subcutaneous 30 mg SQ Q56D 10/13/24 11/01/24 History auto-injector (Fasenra Pen) evolocumab 140 mg/mL subcutaneous 140 mg SQ Q14D 10/13/24 11/01/24 History pen injector (Repatha SureClick) fluticasone propionate 50 2 spray intranasal DAILY 10/13/24 11/01/24 History mcg/actuation nasal spray,suspension empagliflozin 10 mg tablet 10 mg PO DAILY 30 days #30 tabs 10/14/24 11/01/24 Rx (Jardiance) sacubitril 24 mg-valsartan 26 mg 1 tab PO BID 30 days #60 tabs 10/14/24 11/01/24 Rx tablet (Entresto) aspirin 81 mg capsule 81 mg PO DAILY #30 caps 10/31/24 11/01/24 Rx clopidogrel 75 mg tablet (Plavix) 75 mg PO DAILY #30 tabs 10/31/24 11/01/24 Rx ipratropium 0.5 mg-albuterol 3 mg 3 ml inhalation Q6HP PRN Shortness 11/01/24 11/01/24 History (2.5 mg base)/3 mL nebulization Of Breath Or Wheezing soln fluticasone propionate 50 See Rx Instructions .Route 11/27/24 Rx mcg/actuation nasal .COMPLEX #16 grams spray,suspension Spiriva with HandiHaler 18 mcg and 1 cap inhalation DAILY #90 puffs 12/03/24 Rx inhalation capsules (tiotropium bromide) fluticasone 500 mcg-salmeterol 50 1 inh inhalation BID #180 ea 12/03/24 Rx mcg/dose blistr powdr for inhalation (Advair Diskus) New Prescriptions to Start Prescriptions: Allergies Allergy/AdvReac Type Severity Reaction Status Date / Time codeine Allergy Mild Gastrointestinal Verified 01/10/25 21:50 Upset diphenhydramine (From Allergy Mild Flushing Verified 01/10/25 21:50 Benadryl) Penicillins Allergy Mild Hives Verified 01/10/25 21:50 lorazepam (From Ativan) Allergy Anxiety Verified 01/10/25 21:50 isosorbide AdvReac Intermediate Severe CHENEY Verified 01/10/25 21:50 diazepam (From Valium) AdvReac Mild Agitated Verified 01/10/25 21:50 hydrocodone AdvReac Hives Verified 01/10/25 21:50 Exam Data for Last 24 hours Vital signs and Labs for Last 24 Hours: Temp Pulse Resp BP Pulse Ox O2 Del Method 98.4 F 86 17 148/76 H 95 Room Air 01/11/25 02:12 01/11/25 02:12 01/11/25 02:12 01/11/25 02:12 01/11/25 01:30 01/11/25 02:12 Laboratory Results - last 24 hr 01/10/25 21:21: WBC 9.8, RBC 4.95, Hgb 15.4, Hct 45.8, MCV 92.5, MCH 31.1, MCHC 33.6, RDW 12.6, Plt Count 347, MPV 9.6, Neut % (Auto) 55.8, Lymph % (Auto) 35.4, [place] % (Auto) 8.2, Eos % (Auto) 0.0 L, Baso % (Auto) 0.3, Neut # (Auto) 5.4, Lymph # (Auto) 3.5, [place] # (Auto) 0.8, Eos # (Auto) 0.0, Baso # (Auto) 0.0, Sodium 140, Potassium 3.8, Chloride 105, Carbon Dioxide 29, Anion Gap 9.8, BUN 15, Creatinine 0.60, Estimated Creat Clear 39, Estimated GFR 98, Est GFR ( Amer) 119, Glucose 83, Calcium 9.3, Total Bilirubin 0.6, AST 35, ALT 18, Alkaline Phosphatase 51, Troponin I 0.01, Total Protein 7.4, Albumin 4.5, Globulin 2.9, Albumin/Globulin Ratio 1.6 01/11/25 00:22: Troponin I < 0.01 I & O for Last 24 hours: Intake & Output 01/08/25 01/09/25 01/10/25 01/11/25 23:59 23:59 23:59 23:59 Weight 49.895 kg Constitutional Constitutional: no acute distress *Routine HEENT Exam Head: Present normocephalic Eye: Present EOMI and PERRL ENT: Present mucous membranes moist *Routine Neck Exam Neck: Present supple; Absent lymphadenopathy *Routine Respiratory Exam Respiratory: Present CTA bilaterally *Routine Cardiovascular Exam Cardiovascular: Present RRR *Routine Abdominal Exam Abdominal: Present soft, normoactive bowel sounds and tenderness Comments: Right upper quadrant *Routine Rectal Exam Rectal:: deferred *Routine Genitalia Exam Genitalia:: deferred *Routine Extremities Exam Extremities: Absent cyanosis, clubbing or edema *Routine Skin Exam Skin: Present warm; Absent rash *Routine Neurological Exam Neurological: Present alert and oriented X3 Assessment and Plan *Assessment and plan (1) Chest pain: Status: Acute Category: Medical Code(s): R07.9 - Chest pain, unspecified (2) Anxiety disorder: Status: Acute Qualifiers: Anxiety disorder type: unspecified anxiety disorder Qualified Code(s): F41.9 - Anxiety disorder, unspecified Category: Medical Code(s): F41.9 - Anxiety disorder, unspecified (3) Hypertension, uncontrolled: Status: Acute Category: Medical Code(s): I10 - Essential (primary) hypertension (4) Atrial fibrillation: Status: Chronic Qualifiers: Atrial fibrillation type: paroxysmal Qualified Code(s): I48.0 - Paroxysmal atrial fibrillation Category: Medical Code(s): I48.91 - Unspecified atrial fibrillation (5) HTN (hypertension): Status: Chronic Qualifiers: Hypertension type: primary hypertension Qualified Code(s): I10 - Essential (primary) hypertension Category: Medical Code(s): I10 - Essential (primary) hypertension (6) HLD (hyperlipidemia): Status: Chronic Qualifiers: Hyperlipidemia type: mixed hyperlipidemia Qualified Code(s): E78.2 - Mixed hyperlipidemia Category: Medical Code(s): E78.5 - Hyperlipidemia, unspecified (7) HFrEF (heart failure with reduced ejection fraction): Status: Acute Category: Medical Code(s): I50.20 - Unspecified systolic (congestive) heart failure (8) Epigastric pain: Status: Acute Category: Medical Code(s): R10.13 - Epigastric pain Plan #Chest pain #CAD #Hypertension #HLD #Diastolic heart failure, chronic Workup reassuring at this time. Will continue to trend troponins. Patient reports pain is epigastric in nature with associated belching. Reports seeing Dr. Abdalla for local cardiology services. Continue aspirin, Plavix, Eliquis, Jardiance, Entresto If patient continues with pain, consider cardiology consult #Epigastric pain Patient does have mild right upper quadrant tenderness with belching and radiation of pain through to her back. Will get CT abdomen pelvis to rule out gallbladder involvement although labs are normal at this time.
--- NOTE | 2025-01-11 02:15 | PC.NURSE ---
Patient arrived to floor via wheelchair from ED at 02:09.
[2025-01-11] MEDS: IOPAMIDOL-370 (76%);100ML BOTTLE 75 ML IV (02:42)
[2025-01-11] MEDS: SODIUM CHLORIDE 0.9% 10ML SYR (RAD ONLY) 10 ML IV (02:42)
--- NOTE | 2025-01-11 04:44 | PC.NURSE ---
Since arriving to the floor pt has denied any further chest pain and has been sleeping .
[2025-01-11 05:58] LABS: Basophils % 0.1 % (0.1-2.0); Hematocrit 40.8 % (37.0-47.0); Lymphocytes # 2.5 K/mm3 (0.7-4.5); Lymphocytes % 37.4 % (10-50); Mean Corpuscular HGB Conc 33.1 g/dL (31.8-35.4); Mean Corpuscular Hemoglobin 30.5 pg (27.0-31.2); Mean Corpuscular Volume 92.3 fl (81-99); Mean Platelet Volume 9.5 fl (7.4-10.4); Monocytes # 0.7 K/mm3 (0.1-1.0); Monocytes % 10.6 % (1.7-9.3); Neutrophils # 3.5 K/mm3 (1.8-7.8); Neutrophils % 51.6 % (37.0-80.0); Platelet Count 265 K/mm3 (142-424); Red Blood Count 4.42 M/mm3 (4.20-5.40); Red Cell Distribution Width 12.4 % (11.5-17.5); White Blood Count 6.7 K/mm3 (4.8-10.8)
[2025-01-11 06:03] LABS: Chloride 106 mmol/L (98-107); Sodium 139 mmol/L (136-145)
[2025-01-11 06:04] LABS: Potassium 3.9 mmoL/L (3.5-5.1)
[2025-01-11 06:05] LABS: Hemoglobin 13.5 g/dL (12.2-16.2)
[2025-01-11 06:07] LABS: Anion Gap 9.9 mEq/L (5-15); Blood Urea Nitrogen 12 mg/dl (7-17); Calcium 8.7 mg/dl (8.4-10.2); Carbon Dioxide 27 mmol/L (22.0-30.0); Creatinine Clearance Estimated 52 mL/min (50-200); Estimated Glomerular Filt Rate 82 ml/min (>60); GFR (African American) 99 ML/MIN (>60); Glucose 88 mg/dl (74-100)
[2025-01-11 06:18] LABS: Troponin I < 0.01 ng/ml (0.00-0.034)
[2025-01-11 09:08] LABS: Troponin I < 0.01 ng/ml (0.00-0.034)
[2025-01-11] MEDS: BISOPROLOL 5MG TABLET 5 MG PO (09:24)
[2025-01-11] MEDS: CLOPIDOGREL 75MG TAB 75 MG PO (09:24)
[2025-01-11] MEDS: APIXABAN 5MG TABLET 5 MG PO (09:24)
[2025-01-11] MEDS: CITALOPRAM 40MG TABLET 40 MG PO (09:24)
[2025-01-11] MEDS: FAMOTIDINE 20MG TABLET 20 MG PO (09:24)
[2025-01-11] MEDS: ASPIRIN EC 81MG TABLET 81 MG PO (09:24)
[2025-01-11] MEDS: FLUTICASONE/SALMETEROL 500/50MCG DISKUS 1 PUFF IH (09:26)
[2025-01-11] MEDS: TIOTROPIUM 18MCG/PUFF INHALER 1 CAP IH (09:27)
[2025-01-11 10:17] LABS: Lipase 52 U/L (23-300)
--- NOTE | 2025-01-11 11:40 | P.DS_ITS ---
General Admission date:: 01/11/25 HPI HPI HPI: This is a 74-year-old female with a significant cardiac history, anxiety, atrial fibrillation, diastolic heart failure who presents to the emergency department today with epigastric pain and belching. She reports she was doing well and develops belching after eating chili last night. States that her pain radiated from epigastric region through to her back. States that this pain is similar to prior heart attacks. Out of abundance precaution she presented to the emergency department. She denies any fever. Does endorse mild nausea. On exam patient does have some epigastric and right upper quadrant tenderness on palpation. States that her pain has been intermittent and nothing makes it worse or better. Emergency department workup unremarkable. Troponin negative x 2. Given patient's significant history it was felt that she would benefit from overnight hospitalization. She is admitted to hospitalist service. Hospital Course Hospital Course Hospital Course: Supriya Andres is a 74-year-old female with a medical history of CAD with 2 stents in October 2024 who presented with epigastric/chest pain and was admitted for ACS workup. #GERD #Epigastric/chest pain ? Completely resolved with GI cocktail. Troponins negative, EKG without acute ischemic changes. ? Symptoms seem most related to GERD at this time. Spoke to Dr. Abdalla, agreed with this and advised to discontinue aspirin and continue Plavix. ? Started Protonix 40 mg daily. #CAD ?Discontinued aspirin, continue Plavix as above. Continue statin. Paroxysmal atrial fibrillation Continue bisoprolol, Eliquis COPD not in exacerbation Tobacco dependence in remission Continue home regimen Generalized anxiety disorder Continue home regimen Exam Data for Last 24 hours Vital signs and Labs for Last 24 Hours: Temp Pulse Resp BP Pulse Ox O2 Del Method O2 Flow Rate 98.4 F 60 18 129/79 96 Room Air 2 01/11/25 08:00 01/11/25 08:00 01/11/25 08:00 01/11/25 08:00 01/11/25 08:00 01/11/25 08:53 01/11/25 07:00 Laboratory Results - last 24 hr 01/10/25 21:21: WBC 9.8, RBC 4.95, Hgb 15.4, Hct 45.8, MCV 92.5, MCH 31.1, MCHC 33.6, RDW 12.6, Plt Count 347, MPV 9.6, Neut % (Auto) 55.8, Lymph % (Auto) 35.4, [place] % (Auto) 8.2, Eos % (Auto) 0.0 L, Baso % (Auto) 0.3, Neut # (Auto) 5.4, Lymph # (Auto) 3.5, [place] # (Auto) 0.8, Eos # (Auto) 0.0, Baso # (Auto) 0.0, Sodium 140, Potassium 3.8, Chloride 105, Carbon Dioxide 29, Anion Gap 9.8, BUN 15, Creatinine 0.60, Estimated Creat Clear 39, Estimated GFR 98, Est GFR ( Amer) 119, Glucose 83, Calcium 9.3, Total Bilirubin 0.6, AST 35, ALT 18, Alkaline Phosphatase 51, Troponin I 0.01, Total Protein 7.4, Albumin 4.5, Globulin 2.9, Albumin/Globulin Ratio 1.6 01/11/25 00:22: Troponin I < 0.01 01/11/25 05:20: WBC 6.7 D, RBC 4.42, Hgb 13.5 D, Hct 40.8, MCV 92.3, MCH 30.5, MCHC 33.1, RDW 12.4, Plt Count 265, MPV 9.5, Neut % (Auto) 51.6, Lymph % (Auto) 37.4, [place] % (Auto) 10.6 H, Eos % (Auto) 0.0 L, Baso % (Auto) 0.1, Neut # (Auto) 3.5, Lymph # (Auto) 2.5, [place] # (Auto) 0.7, Eos # (Auto) 0.0, Baso # (Auto) 0.0, Sodium 139, Potassium 3.9, Chloride 106, Carbon Dioxide 27, Anion Gap 9.9, BUN 12, Creatinine 0.70, Estimated Creat Clear 52, Estimated GFR 82, Est GFR ( Amer) 99, Glucose 88, Calcium 8.7, Troponin I < 0.01, Lipase 52 01/11/25 08:30: Troponin I < 0.01 I & O for Last 24 hours: Intake & Output 01/08/25 01/09/25 01/10/25 01/11/25 23:59 23:59 23:59 23:59 Intake Total 360 / 360 Output Total 0 / 0 Balance 360 / 360 Weight 49.895 kg 65.181 kg Constitutional Constitutional: no acute distress *Routine HEENT Exam Head: Present normocephalic Eye: Present EOMI and PERRL ENT: Present mucous membranes moist *Routine Neck Exam Neck: Present supple; Absent lymphadenopathy *Routine Respiratory Exam Respiratory: Present CTA bilaterally *Routine Cardiovascular Exam Cardiovascular: Present RRR *Routine Abdominal Exam Abdominal: Present soft and normoactive bowel sounds; Absent tenderness *Routine Extremities Exam Extremities: Absent cyanosis, clubbing or edema *Routine Skin Exam Skin: Present warm; Absent rash *Routine Neurological Exam Neurological: Present alert and oriented X3 Results Data Completed and Pending Labs on day of discharge: Labs from last 24 hours 01/11/25 01/11/25 01/11/25 08:30 05:20 00:22 WBC 6.7 D RBC 4.42 Hgb 13.5 D Hct 40.8 MCV 92.3 MCH 30.5 MCHC 33.1 RDW 12.4 Plt Count 265 MPV 9.5 Neut % (Auto) 51.6 Lymph % (Auto) 37.4 [place] % (Auto) 10.6 H Eos % (Auto) 0.0 L Baso % (Auto) 0.1 Neut # (Auto) 3.5 Lymph # (Auto) 2.5 [place] # (Auto) 0.7 Eos # (Auto) 0.0 Baso # (Auto) 0.0 Sodium 139 Potassium 3.9 Chloride 106 Carbon Dioxide 27 Anion Gap 9.9 BUN 12 Creatinine 0.70 Estimated Creat Clear 52 Estimated GFR 82 Est GFR ( Amer) 99 Glucose 88 Calcium 8.7 Total Bilirubin AST ALT Alkaline Phosphatase Troponin I < 0.01 < 0.01 < 0.01 Total Protein Albumin Globulin Albumin/Globulin Ratio Lipase 52 01/10/25 21:21 WBC 9.8 RBC 4.95 Hgb 15.4 Hct 45.8 MCV 92.5 MCH 31.1 MCHC 33.6 RDW 12.6 Plt Count 347 MPV 9.6 Neut % (Auto) 55.8 Lymph % (Auto) 35.4 [place] % (Auto) 8.2 Eos % (Auto) 0.0 L Baso % (Auto) 0.3 Neut # (Auto) 5.4 Lymph # (Auto) 3.5 [place] # (Auto) 0.8 Eos # (Auto) 0.0 Baso # (Auto) 0.0 Sodium 140 Potassium 3.8 Chloride 105 Carbon Dioxide 29 Anion Gap 9.8 BUN 15 Creatinine 0.60 Estimated Creat Clear 39 Estimated GFR 98 Est GFR ( Amer) 119 Glucose 83 Calcium 9.3 Total Bilirubin 0.6 AST 35 ALT 18 Alkaline Phosphatase 51 Troponin I 0.01 Total Protein 7.4 Albumin 4.5 Globulin 2.9 Albumin/Globulin Ratio 1.6 Lipase DS: Diagnosis Discharge Diagnosis (1) Chest pain: Status: Inactive Code(s): R07.9 - Chest pain, unspecified (2) Anxiety disorder: Status: Acute Code(s): F41.9 - Anxiety disorder, unspecified Qualifiers: Anxiety disorder type: unspecified anxiety disorder Qualified Code(s): F41.9 - Anxiety disorder, unspecified (3) Hypertension, uncontrolled: Status: Inactive Code(s): I10 - Essential (primary) hypertension (4) Atrial fibrillation: Status: Chronic Code(s): I48.91 - Unspecified atrial fibrillation Qualifiers: Atrial fibrillation type: paroxysmal Qualified Code(s): I48.0 - Paroxysmal atrial fibrillation (5) HTN (hypertension): Status: Chronic Code(s): I10 - Essential (primary) hypertension Qualifiers: Hypertension type: primary hypertension Qualified Code(s): I10 - Essential (primary) hypertension (6) HLD (hyperlipidemia): Status: Chronic Code(s): E78.5 - Hyperlipidemia, unspecified Qualifiers: Hyperlipidemia type: mixed hyperlipidemia Qualified Code(s): E78.2 - Mixed hyperlipidemia (7) HFrEF (heart failure with reduced ejection fraction): Status: Acute Code(s): I50.20 - Unspecified systolic (congestive) heart failure (8) Epigastric pain: Status: Acute Code(s): R10.13 - Epigastric pain Meds Home Medications and Allergies Home Medications ?Medication ?Instructions ?Recorded ?Confirmed ?Type albuterol sulfate 90 mcg/actuation 2 inh inhalation Q4HP PRN 10/12/24 01/11/25 History aerosol inhaler Shortness of breath apixaban 5 mg tablet (Eliquis) 5 mg PO BID 10/12/24 01/11/25 History bisoprolol fumarate 5 mg tablet 5 mg PO DAILY 10/12/24 01/11/25 History escitalopram oxalate 20 mg tablet 20 mg PO DAILY 10/12/24 01/11/25 History famotidine 20 mg tablet 20 mg PO BID 10/12/24 01/11/25 History montelukast 10 mg tablet 10 mg PO PM 10/12/24 01/11/25 History ropinirole 1 mg tablet 3 mg PO HS 10/12/24 01/11/25 History temazepam 15 mg capsule 15 mg PO HS 10/12/24 01/11/25 History trazodone 50 mg tablet 50 mg PO HS 10/12/24 01/11/25 History vibegron 75 mg tablet (Gemtesa) 75 mg PO DAILY 10/12/24 01/11/25 History benralizumab 30 mg/mL subcutaneous 30 mg SQ Q56D 10/13/24 01/11/25 History auto-injector (Fasenra Pen) evolocumab 140 mg/mL subcutaneous 140 mg SQ Q14D 10/13/24 01/11/25 History pen injector (Repatha SureClick) fluticasone propionate 50 2 spray intranasal DAILY 10/13/24 01/11/25 History mcg/actuation nasal spray,suspension clopidogrel 75 mg tablet (Plavix) 75 mg PO DAILY #30 tabs 10/31/24 01/11/25 Rx fluticasone 500 mcg-salmeterol 50 1 inh inhalation BID #180 ea 12/03/24 01/11/25 Rx mcg/dose blistr powdr for inhalation (Advair Diskus) pantoprazole 40 mg tablet,delayed 40 mg PO DAILY #30 tabs 01/11/25 Rx release (Protonix) New Prescriptions to Start Prescriptions: pantoprazole [Protonix] Shahid Nunez Allergies Allergy/AdvReac Type Severity Reaction Status Date / Time codeine Allergy Mild Gastrointestinal Verified 01/10/25 21:50 Upset diphenhydramine (From Allergy Mild Flushing Verified 01/10/25 21:50 Benadryl) Penicillins Allergy Mild Hives Verified 01/10/25 21:50 lorazepam (From Ativan) Allergy Anxiety Verified 01/10/25 21:50 isosorbide AdvReac Intermediate Severe CHENEY Verified 01/10/25 21:50 diazepam (From Valium) AdvReac Mild Agitated Verified 01/10/25 21:50 hydrocodone AdvReac Hives Verified 01/10/25 21:50 Discharge Plan Disposition Patient Disposition: Home, Self-Care Condition: Fair Follow up Plan Follow up with: Frank Abdalla MD [Staff Physician] - 01/14/25 (please call for appointment) Michael Baez MD [Primary Care Provider] - Enter time for follow up (please call for appointment) Prescriptions/Medication Reconciliation: New pantoprazole [Protonix] 40 mg tablet,delayed release (DR/EC) 40 mg PO DAILY Qty: 30 0RF Rx Instructions: Take on empty stomach. Continued fluticasone propion-salmeterol [Advair Diskus] 500-50 mcg/dose blister with device 1 inh inhalation BID Qty: 180 2RF ropinirole 1 mg tablet 3 mg PO HS trazodone 50 mg tablet 50 mg PO HS bisoprolol fumarate 5 mg tablet 5 mg PO DAILY famotidine 20 mg tablet 20 mg PO BID temazepam 15 mg capsule 15 mg PO HS montelukast 10 mg tablet 10 mg PO PM albuterol sulfate 90 mcg/actuation HFA aerosol inhaler 2 inh INHALATION Q4HP PRN (Reason: Shortness of breath) escitalopram oxalate 20 mg tablet 20 mg PO DAILY Eliquis 5 mg tablet 5 mg PO BID Gemtesa 75 mg tablet 75 mg PO DAILY Fasenra Pen 30 mg/mL auto-injector 30 mg SQ Q56D fluticasone propionate 50 mcg/actuation spray,suspension 2 spray INTRANASAL DAILY Repatha SureClick 140 mg/mL pen injector 140 mg SQ Q14D clopidogrel [Plavix] 75 mg Tablet 75 mg PO DAILY Qty: 30 6RF Discontinued aspirin 81 mg Capsule 81 mg PO DAILY Qty: 30 3RF Problem Reconciliation Problems Reviewed?: Yes Patient Discharge Instructions Patient Instructions: DI for Chest Pain Print Language: American Providers Primary Care Provider: Michael Baez Admit Provider: Shahid Nunez Attending Provider: Shahid Nunez
--- NOTE | 2025-01-12 11:09 | SW/DCPLANNER ---
Spoke with patient on the phone. Patient stated that she is doing great. Patient stated that she is going to call and make an upcoming appointment with her PCP and that she will wait for DR Abdalla's to call and give her the time. Patient stated that she was able to get her medicine from clinic pharmacy. Patient stated that she has no concerns or questions at this time. Justina Jameson
== END 2025-01-11 12:38 | disposition home or self-care (01) ==
LOC: ER 01-11 01:38 → 2ND 01-11 01:55
PROVIDERS: Nurse Practitioner Acute Care; Admitting Provider Student in an Organized Health Care Education/Training Program; Emergency Provider Student in an Organized Health Care Education/Training Program; PCP Internal Medicine Adolescent Medicine; Visit Provider Student in an Organized Health Care Education/Training Program
DX: R07.9 Chest pain, unspecified (principal); F41.9 Anxiety disorder, unspecified; I11.0 Hypertensive heart disease with heart failure; I48.0 Paroxysmal atrial fibrillation; E78.2 Mixed hyperlipidemia; I50.20 Unspecified systolic (congestive) heart failure; R10.13 Epigastric pain; Z79.899 Other long term (current) drug therapy; Z79.01 Long term (current) use of anticoagulants; J44.89 Other specified chronic obstructive pulmonary disease; I25.10 Atherosclerotic heart disease of native coronary artery without angina pectoris; Z88.0 Allergy status to penicillin; Z88.8 Allergy status to other drugs, medicaments and biological substances; Z88.5 Allergy status to narcotic agent; Z79.02 Long term (current) use of antithrombotics/antiplatelets; Z79.51 Long term (current) use of inhaled steroids; Z95.5 Presence of coronary angioplasty implant and graft; Z87.891 Personal history of nicotine dependence; E78.5 Hyperlipidemia, unspecified; Z95.1 Presence of aortocoronary bypass graft; Z96.653 Presence of artificial knee joint, bilateral; Z90.49 Acquired absence of other specified parts of digestive tract; Z79.84 Long term (current) use of oral hypoglycemic drugs; K21.9 Gastro-esophageal reflux disease without esophagitis; F41.1 Generalized anxiety disorder
CPT/HCPCS: 36415; 71045; 74177; 80048; 80053; 83690; 84484; 85025; 93005; 99285; G0378; J2270; Q9967

== ENCOUNTER 2025-01-23 14:29 | Outpatient (CLI) | payer MEDICARE, SELFPAY ==
--- NOTE | 2025-01-23 14:29 | CT_ITS ---
FINAL REPORT TECHNIQUE: Axial CT without IV contrast administration using low dose protocol. This study was performed with techniques to keep radiation doses as low as reasonably achievable, (ALARA). Individualized dose reduction techniques using automated exposure control or adjustment of mA and/or kV according to the patient's size were employed. CLINICAL HISTORY: lung cancer screening former smoker quit 2 year ago, 2ppd x53 years COMPARISON: 07/22/24 FINDINGS: CT CHEST LOW DOSE SCREENING DOSE: CTDI vol: 2.90 mGy, DLP: Nine 1.16 mGy*cm No acute lung disease is present. No pulmonary lesions are seen suspicious for neoplasm. No pleural or pericardial effusion is seen. No adenopathy or mass lesion is present. IMPRESSION: No suspicious pulmonary nodule. LUNG RADS CATEGORY 1 RECOMMENDATION: 12 month LDCT follow up Reviewed, Interpreted and Dictated by Shameka Kilgore MD Transcribed by Ilda Rodriguez Authenticated and [facility]
== END 2025-01-23 23:59 | disposition home or self-care (01) ==
LOC: RAD 14:29
PROVIDERS: PCP Internal Medicine Adolescent Medicine; Visit Provider Internal Medicine Pulmonary Disease
DX: F17.210 Nicotine dependence, cigarettes, uncomplicated (principal)
CPT/HCPCS: 71271

== ENCOUNTER 2025-03-23 11:20 | Outpatient (CLI) | payer MEDICARE, SELFPAY ==
[2025-03-23] MEDS: DENOSUMAB 60 MG/ML SYRINGE SUBCUT (11:27)
[2025-03-23 11:28] VITALS: BP 142/85; PULSE 74; RESP 16; TEMP 37.3; O2SAT 97
== END 2025-03-23 11:41 | disposition home or self-care (01) ==
LOC: INF 11:21
PROVIDERS: PCP Internal Medicine Adolescent Medicine; Visit Provider Internal Medicine Adolescent Medicine
DX: M81.0 Age-related osteoporosis without current pathological fracture (principal)
CPT/HCPCS: 96372; J0897

== ENCOUNTER 2025-05-01 11:39 | Emergency (ER) | payer MEDICARE, SELFPAY ==
[2025-05-01] VITALS (13 sets, daily range): BP systolic 116–142; BP diastolic 71–104; PULSE 70–86; RESP 16–20; TEMP 36.6; O2SAT 91–99; BMI 25.5
--- NOTE | 2025-05-01 11:53 | ECG_ITS ---
APPROVED REPORT Exam: Resting ECG HR:78 bpm ECG Measurements Heart Rate 78 AXES QRSd 94 QRS 55 QT 395 T -79 QTc 428 Conclusion ATRIAL FIBRILLATION MINIMAL VOLTAGE CRITERIA FOR LVH, CONSIDER NORMAL VARIANT [MEETS CRITERIA IN ONE OF: R(aVL), S(V1), R(V5), R(V5/V6)+S(V1)] ST DEVIATION AND MODERATE T-WAVE ABNORMALITY, CONSIDER ANTEROLATERAL ISCHEMIA [-0.1+ mV T-WAVE IN V3-V6] ST DEVIATION AND MODERATE T-WAVE ABNORMALITY, CONSIDER INFERIOR ISCHEMIA [-0.1+ mV T-WAVE IN II/aVF] ST depressions in the inferior and lateral leads without reciprocal ST elevation, no STEMI Electronically signed by : JOSHUA AUGUSTIN, 05/02/2025 03:52:47
--- OUTSIDE RECORDS SUMMARY | 2025-05-01 11:58 | XMS_ITS | Encounter Summary ---
Author Organization [facility] Address [address] 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 0 08/17/2022 CAGE Questionnaire Score 0 022 Comments No Sex and Gender Information Value Date Recorded Sex Assigned at Not on file Legal Sex Female 7:36 PM EDT Gender Identity Not on file Sexual Orientation Not on file documented as of this encounter Miscellaneous Notes * Telephone Encounter - Kaylee Agrawal RN - 03/20/2025 8:02 AM EDT RN faxed clearance again to provided fax number. LATOYA Galarza, RN * Telephone Encounter - Kaylee Agrawal RN - 03/10/2025 2:30 PM EDT RN called patient and LVM stating that she can hold Eliquis only for 2-3 days prior to extraction. Any abx prophylaxis for knee joint should come from ortho. Provided call back number for any questions or concerns. RN faxed clearance to provided fax number. LATOYA Galarza, RN * Telephone Encounter - Kaylee Agrawal RN - 03/10/2025 12:18 PM EDT [facility] faxed clearance request for a dental extraction. Requesting instructions on holding Plavix and if patient needs any prophylactic meds due to having an artifical knee joint. LATOYA Galarza, RN documented in this encounter Plan of Treatment [...] documented as of this encounter Care Teams Hair Assistant Relationship Specialty Start Date End Date Michael Baez MD [address] [place] [address] PCP - General 04/08/21 Acacia Scott APRN [address] [place] [address] Nurse Practitioner Cardiology 03/27/22 Virgilio Nguyễn MD [address] [place] [address] Referring Physician 10/07/24 documented as of this encounter
--- OUTSIDE RECORDS SUMMARY | 2025-05-01 11:58 | XMS_ITS | Clinical Summary ---
Author Organization [facility] Address [address] [place] [address] Care Team Providers Care Icer Hand Name Role Phone Michael Baez MD Primary Care Provider + [phone] Acacia Scott APRN Unavailable [phone] Virgilio Nguyễn MD Unavailable [phone] Allergies Active Allergy Reactions Criticality Noted [...] mg) by mouth every night. 2 Active Fasenra Pen 30 MG/ML solution auto-injector [...] amoxicillin (Amoxil) 500 MG capsule 4 Active Eliquis 5 MG tablet TAKE 1 TABLET BY MOUTH TWO TIMES A DAY 180 tablet 3 5 Active Active Problems Problem Noted Date Diagnosed [...] Encounters Date Type Department Care Team Description 03/10/2025 Orders Only [facility] [place] [address] [place] [address] Acacia Scott APRN 03/10/2025 Telephone [facility] [place] [address], [address] [place] [address] Kaylee Agrawal RN from Last 3 Months Immunizations Immunization Administration Dates Next Due Influenza, high-dose, quadrivalent [...] 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) to steady your nerves or to [...] 73 10/07/2024 11:22 AM EST Temperature 36.8 C (98.3 F) 08/26/2022 8:34 AM EDT Respiratory Rate 16 08/26/2022 8:34 AM EDT Oxygen Saturation 95% 10/07/2024 11:22 AM EST Inhaled Oxygen Concentration - - Weight 69 kg (152 lb 1.9 oz) 10/07/2024 11:22 AM EST Height 162.6 cm (5' 4 ) 10/07/2024 11:22 AM EST Body Mass Index 26.11 10/07/2024 11:22 AM EST Plan of Treatment Health Maintenance Due Date Last Done Comments [facility]-Bone Density Scan 1950 [facility]-Medicare Annual Wellness (AWV) 1950 [facility]-Infant/Child/Adol SDOH Screenings [...] 60-74 years 1-dose series) 2011 [facility]-Pneumococcal Vaccine: 50+ Years (2 of 2 - PCV) 05/26/2022 05/26/2021 [facility]-Lung Cancer Screening 08/07/2023 08/07/2022 [id number] Vaccine (1 - season) 2024 [facility]-Depression Screening 03/31/2025 03/31/2024 [facility]-Hepatitis C Screening Completed 08/07/2022 [facility]-Influenza Vaccine Completed 08/04/2024 , 12/11/2019, 08/22/2018 [facility]-Obesity Intervention Completed 024, 09/29/2024, 03/31/2024, Additional history exists HPV Vaccines Aged Out No longer eligi ble based on patient's age to complete this topic [facility]-HIB Vaccines Aged Out No longer e [...] Procedure Name Priority Date/Time Associated Diagnosis Comments CT CHEST WO IV CONTRAST STAT 08/07/2022 1:12 PM EDT HEPATITIS C ANTIBODY - ED W/REFLEX TO HCV QUANT PCR STAT 08/07/2022 11:09 AM EDT from Last 3 Months or Most Recently Relevant to Health Maintenance Results * CT Chest wo IV Contrast (08/07/2022 [...] Consider correlation with point tenderness CRITICAL RESULT: No. COMMUNICATION: Per this written report.. Dictated by Supriya Slaughter MD on 08/07/2022 1:25 PM Signed by Supriya Slaughter MD on 08/07/2022 1:47 PM Narrative 08/07/2022 1:47 PM EDT Exam/Procedure: CT LUMBAR SPINE WO IV CONTRAST, CT THORACIC SPINE WO IV CONTRAST, CT CHEST WO IV CONTRAST ordered by GUILLERMO PHILIP, [id number] CLINICAL INDICATION: Low back pain, no red flags TECHNIQUE: Imaging of the chest was performed from thoracic inlet through upper abdomen, using spiral technique, without administration of IV contrast. Reformatted images in the coronal and sagittal planes [...] that also extends into the great vessels. Pleural/Pericardial Space: No pneumothorax. No pleural effusions. [...] This is not well visualized on the axial images. Alignment: Grossly normal. Paraspinal soft tissues. No acute abnormality Procedure Note Supriya Slaughter MD - 08/07/2022 Exam/Procedure: CT LUMBAR SPINE WO IV CONTRAST, CT THORACIC SPINE WO IVCONTRAST, CT CHEST WO IV CONTRAST ordered by GUILLERMO PHILIP, [id number] CLINICAL INDICATION: Low back pain, no red [...] Antibody Negative Negative 08/07/2022 1:34 PM EDT [facility] Blood Venous blood specimen / Unknown Venipuncture / Unknown 08/07/2022 11:09 AM EDT 08/07/2022 11:15 AM EDT Guillermo Philip MD LAB BLOOD ORDERABLES Anastacia l Result [facility] [address] [place] [id number] from Last 3 Months or Most Recently Relevant to Health Maintenance Insurance Kathleen Yarbrough [place] [id number] [employer] MEDICARE Advance Directives * Full Code (Latest Code Status on File) Date Activated Date Inactivated Comments 08/15/2022 10:23 PM 08/26/2022 6:51 PM Question Answer Comments Patient has decision-making capacity? Yes Care Teams Icer Hand Relationship Specialty Start Date End Date Michael Baez MD [address] [place] [address] PCP - General 04/08/21 Acacia Scott APRN [address] [place] [id number] Nurse Practitioner Cardiology 03/27/22 Virgilio Nguyễn MD [address] [place] [address] [place] [address] Referring Physician 10/07/24
--- OUTSIDE RECORDS SUMMARY | 2025-05-01 11:58 | XMS_ITS | Data Portability ---
Author Organization [place] [facility] [place] Address [address] [place] [address] Assessment Encounter Date Assessment Date Assessment LastModified by Organization Details LastModified Time 08/07/2024 08/07/2024 This patient had balloon kyphoplasty done of the L2 vertebral bodies today for acute osteoporotic compression fracture. Patient had significant reduction of her pain upon discharge. She was standing up straighter and she was walking better without her cane. We will follow-up with her in 2 weeks. Will evaluate efficacy of this L2 balloon kyphoplasty. abux Not available 08/07/2024 23:23:00 08/22/2024 08/22/2024 This was a telemedicine visit. Patient was not able to come to clinic. She was at home I was in the clinic. She is 100% better after her kyphoplasty. She is now having some increasing right hip pain when she walks. It radiates into the groin. She has had previous arthritis type problems in her right hip. We will order a right hip plain x-ray to evaluate Her right hip joint. We will also plan on a right hip intra-articular injection in 2 weeks. Will see her back in clinic for right hip intra-articular injection.Toi prasad is an established patient with their informed consent to treat signed and on file. Patient was verbally authenticated based on the demographic information in the patient s file. Patient was given choice of telehealth ([place]) visit. telephone visit, or office visit; patient chose telephone visit due to COVID-19 state of emergency. This visit is being conduct via telephone ([place]) in accordance to all applicable laws and regulations. Patient is located in the [facility] and the treating medical provider is located in the [facility]. The telephone call was conducted for approximately 13 mins. abux Not available 08/22/2024 15:17:35 09/02/2024 09/02/2024 This patient continues to do well after her kyphoplasty. We did review the x-ray of her hip which shows moderate to severe degenerative changes of the hips. Most of her pain is on the right side. She had a right hip intra-articular injection today. She is not a candidate for total hip replacement given her cardiac comorbidities. We will follow-up with her in 2 weeks with a telemedicine visit. She lives 3 hours away. Will reevaluate her symptoms and efficacy of this injection. abux Not available 09/02/2024 13:44:56 09/18/2024 09/18/2024 This patient had 80% relief for 24 to 48 hours after her right hip intra-articular injection. Pain is now returned she is having difficulty with ambulation it is affecting her activities of daily living. She has been told at [facility] that she was not a surgical candidate because of her cardiac and pulmonary comorbidities. We will start her on tramadol 50 mg 3 times a day to see if this helps. She has been on hydrocodone to before which caused her to itch. We will also refer her to orthopedics for evaluation for surgery. We will follow-up with her in 2 weeks. Will give her 2 weeks of tramadol to see if this helps With her pain symptoms. This was a consented telephone call as the patient did not have access to video capabilities.Mirna espinoza was at home I was in the clinic she was not able to come to the clinic today. Patient is an established patient with their informed consent to treat signed and on file. Patient was verbally authenticated based on the demographic information in the patient s file. Patient was given choice of telehealth ([place]) visit. telephone visit, or office visit; patient chose telephone visit due to COVID-19 state of emergency. This visit is being conduct via telephone ([place]) in accordance to all applicable laws and regulations. Patient is located in the [facility] and the treating medical provider is located in the [facility]. The telephone call was conducted for approximately 15 mins. abux Not available 09/18/2024 16:47:27 Plan of Treatment Reminders Order Date Submit Date Provider Last Modified By Organization Details Last Modified Time Details Appointments None recorded. Lab None recorded. Referral orthopedic surgeon referral 2023 024 [email or web address] Aubrey Gonzáles MD, [address] [facility], [facility] [address], [place], [address], 5 07:51:54 Procedures intra-artic ular injection, hip (PROC) 2023 024 [email or web address] 1 Not available 4 12:24:31 Surgeries None recorded. Imaging XR, hip, unilateral, 2 or 3 view 2023 024 [facility] (X-Ray), [address] [place] [address] [address], [place], [address], 4 15:40:01 Medication Orders tramadol 50 mg tablet 2023 024 [facility], [address] [facility] [address] [place], [id number], 4 16:50:08 Patient TargetsNo targets recorded. Patient InstructionsNo instructions recorded. Reason for Referral Orthopedic Surgeon Referral for Pain of right hip joint Referring Physician: Uriel Sharma, Pain Management, [phone] Encounter Date: 09/18/2024 Results Created Date Observation Date Name Description Value Unit Range Abnormal Flag Note LastModifiedBy Organization Detail LastModifiedTime 09/02/20 24 MRI, lumba r spine , w/o contr ast No observ ation record ed. [email or web address] Not Available 2023 09:09:46 09/05/20 24 XR, hip + pelvi s, unila teral No observ ation record ed. [email or web address] Not Available 2023 11:33:42 Result Notes None recorded. Problems Name Problem SNOMED Code Status Onset Date Resolution Date Notes Provider Name and Address Organization Details Recorded Time Compression fracture of lumbar spine 523734273 Active 2023 [place] [facility] 4 07:22:24 Pain of right hip joint 9695762380832 02 Active 2023 Uriel Sharma MD [address] [facility],[place] [facility], [place], [address], [place] [facility] 4 15:17:38 Osteoarthri tis of right hip joint 7816116077406 07 Active 2023 Uriel Sharma MD [address] [facility],[place] [facility], [place], [address], [place] [facility] 4 13:45:31 Problem Notes None recorded. Procedures Surgical History Date Name Laterality Status Provider Name and Address Organization Details Recorded Time 4 Hip Joint Steroid Injection completed Uriel Sharma MD [address] [facility],[place] [address], [place], [address], [place] [facility] 09/02/2024 13:44:15 Kyphoplasty completed Uriel Sharma MD [address] [facility],[place] [address], [place], [address], [place] [facility] 08/07/2024 23:22:18 Imaging Results None recorded. Procedure Notes None recorded. Medical Equipment None Reported. Allergies Allergen ID Allergen Name Allergen Category Reaction Reaction Severity Criticality Documentation Date Start Date Code Code System Note Provider Name and Address Organization Details Recorded Time 5635 codeine medicatio n Not available Not available Not available 08/07/2024 2670 RxNorm MUSTAPHA MAYRA null, [place] [facility] 4 13:05:28 5636 Valium medicatio n Not available Not available Not available 08/07/202416386 2 RxNorm MUSTAPHA MAYRA null, [place] [facility] 4 13:05:33 5637 midazolam hydrochlo ride medicatio n Not available Not available Not available 08/07/202447686 8 RxNorm MUSTAPHA NUNEZ null, [place] [facility] 16:04:52 Medications Name Sig Start Date Stop Date Status Note LastModified by Organization Details LastModified Time amoxicillin 500 mg capsule active Not Available Not Available Not Available furosemide 40 mg tablet active Not Available Not Available No t Available methocarbamol 500 mg tablet active Not Available Not Availabl e Not Available bupropion HCl SR 150 mg tablet,12 hr sustained-rel ease active Not Available Not Available Not Available atorvastatin 80 mg tablet active Not Available Not Available Not Available nystatin 100,000 unit/mL oral suspension active Not Available Not Available N ot Available prednisone 10 mg tablet active Not Available Not Available No t Available ropinirole 1 mg tablet active Not Available Not Available No t Available ipratropium 0.5 mg-albuterol 3 mg (2.5 mg base)/3 mL nebulization soln active Not Available Not Available Not Available tizanidine 2 mg tablet active Not Available Not Available No t Available trazodone 50 mg tablet active Not Available Not Available No t Available cetirizine 10 mg tablet active Not Available Not Available No t Available azithromycin 250 mg tablet 08/07 completed Not Available Not Available Not Available hydrocodone 5 mg-acetaminop hen 325 mg tablet active Not Available Not Available Not Available ondansetron HCl 4 mg tablet active Not Available Not Available Not Available famotidine 40 mg tablet active Not Available Not Available No t Available prednisone 20 mg tablet active Not Available Not Available No t Available isosorbide mononitrate ER 30 mg tablet,extend ed release 24 hr active Not Available Not Available Not Available diphenoxylate -atropine 2.5 mg-0.025 mg tablet active Not Available Not Available Not Available clopidogrel 75 mg tablet active Not Available Not Available Not Available omeprazole 40 mg capsule,delay ed release active Not Available Not Available N ot Available tramadol 50 mg tablet TAKE ONE TABLET BY MOUTH 3 TIMES A DAY active Not Available Not Available No t Available spironolacton e 25 mg tablet active Not Available Not Available Not Available bisoprolol fumarate 5 mg tablet active Not Available Not Available Not Available famotidine 20 mg tablet active Not Available Not Available No t Available metoclopramid e 5 mg tablet active Not Available Not Availabl e Not Available temazepam 15 mg capsule active Not Available Not Available N ot Available dexamethasone 4 mg tablet active Not Available Not Available Not Available losartan 25 mg tablet active Not Available Not Available No t Available diclofenac sodium 75 mg tablet,delaye d release active Not Available Not Available No t Available montelukast 10 mg tablet active Not Available Not Available Not Available furosemide 20 mg tablet active Not Available Not Available No t Available gabapentin 100 mg capsule active Not Available Not Available Not Available ergocalcifero l (vitamin D2) 1,250 mcg (50,000 unit) capsule active Not Available Not Available Not Available azelastine 137 mcg (0.1 %) nasal spray active Not Available Not Available Not Available levofloxacin 500 mg tablet active Not Available Not Availabl e Not Available albuterol sulfate HFA 90 mcg/actuation aerosol inhaler active Not Available Not Available Not Available cefdinir 300 mg capsule active Not Available Not Available N ot Available fluticasone propionate 50 mcg/actuation nasal spray,suspens ion active Not Available Not Available Not Available naproxen 500 mg tablet active Not Available Not Available No t Available diazepam 5 mg tablet active Not Available Not Available Not Available escitalopram 20 mg tablet active Not Available Not Available Not Available ranolazine ER 500 mg tablet,extend ed release,12 hr active Not Available Not Available Not Available hydrochloroth iazide 12.5 mg tablet active Not Available Not Available No t Available Combivent Respimat 20 mcg-100 mcg/actuation solution for inhalation active Not Available Not Available N ot Available Eliquis 5 mg tablet active Not Available Not Available Not Available Repatha SureClick 140 mg/mL subcutaneous pen injector active Not Available Not Available Not Available baclofen 5 mg tablet active Not Available Not Available Not Available Fasenra Pen 30 mg/mL subcutaneous auto-injector active Not Available Not Availabl e Not Available Breztri Aerosphere 160 mcg-9mcg-4.8m cg/actuation HFA aerosol inhaler active Not Available Not Available Not Available Gemtesa 75 mg tablet active Not Available Not Available Not Available Vitals Date Recorded Heart rate Oxygen saturation Oxygen saturation in Arterial blood by Pulse oximetry Body height Body mass index (BMI) Body weight Systolic blood pressure Diastolic blood pressure Provider Name and Address Organization Details Last Updated DateTime 4 74 /min 98 % 98 % 162.56 cm 30 kg/m2 56584.6 6 g 137 mm[Hg] 80 mm[Hg] MUSTAPHA NUNEZ [place] [facility] 4 13:56:35 Date Recorded Body height Body mass index (BMI) Body weight Oxygen saturation Oxygen saturation in Arterial blood by Pulse oximetry Heart rate Systolic blood pressure Diastolic blood pressure Provider Name and Address Organization Details Last Updated DateTime 4 162.56 cm 30 kg/m2 67012.6 6 g 98 % 98 % 76 /min 136 mm[Hg] 78 mm[Hg] MUSTAPHA NUNEZ [place] [facility] 10/08/202 4 12:51:24 Social History Question Answer Notes LastModified by Organizat ion Details LastModified Time Tobacco Smoking Status Never Smoker MUSTAPHA dickinson, [place] [facility] 08/07/2024 12:52:54 In The 14 Days Before Symptom Onset, Have You Had Close Contact With A Laboratory-confirm ed COVID-19 While That Case Was Ill? No [email or web address] Information n ot available 08/07/2024 In The 14 Days Before Symptom Onset, Have You Had Close Contact With A Person Who Is Under Investigation For COVID-19 While That Person Was Ill? No [email or web address] Information not available 08/07/2024 Have You Been To An Area Known To Be High Risk For COVID-19? No Information not available 08/07/2024 Sex: Female Functional Status Question Answer Note LastModified by Organizat ion Details LastModified Time Do you use any illicit or recreational drugs? No [email or web address] Information not available 08/07/2024 Do you or have you ever used any other forms of tobacco or nicotine? No [email or web address] Information not available 08/07/2024 What is your level of alcohol consumption? None [email or web address] Information not available 08/07/2024 Mental Status None recorded. Family History Nothing Reported. Medical History No medical history recorded. Gynecological HistoryNo gynecological history recorded. Obstetrics History GPAL:G 0 P 0 0 0 0 Past Encounters Encounter ID Performer Location Encounter Start Date Encounter Closed Date Diagnosis/Indication Diagnosis SNOMED-CT Code Diagnosis ICD10 Code Diagnosis Note [id number] Uriel Sharma MD [address] [place] [address] 08/07/2024 12:39:56 08/08/2024 08:05:08 Compression fracture of lumbar spine 048587425 M48.56XA Compressio n fracture of L2 8710218679 1150945 M48.56XA [id number] Uriel Sharma MD [address] [place] [address] 08/22/2024 13:35:15 08/22/2024 14:58:08 Compression fracture of lumbar spine 126421651 M48.56XA Pain of ri ght hip joint 2695946890 89831 M25.551 [id number] Uriel Sharma MD [facility] [address] [place] [address] 09/02/2024 12:43:24 09/02/2024 14:03:09 Compression fracture of lumbar spine 483296091 M48.56XA Pain of ri ght hip joint 3371813419 32487 M25.551 Osteoarthr itis of right hip joint 5624594757 63200 M16.11 [id number] Uriel Sharma MD [facility] [address] [place] [address] 09/18/2024 15:30:54 09/19/2024 08:23:35 Pain of right hip joint 0928303875 26291 M25.551 Osteoarthr itis of right hip joint 7437256943 97016 M16.11 Compressio n fracture of lumbar spine 970601167 M48.56XA Health Concerns Section Related Observation LastModified by Organization Detai ls LastModified Time None Recorded Concern Status LastModified by Organization Details LastModified Time None Recorded Advance Directives Directive None Recorded Payers Encounter Date Sequence Insurance Name Policy Number Policy Kuo Covered Member ID Kuo Member ID Guarantor Name 08/07/2024 1 [employer] (MEDICARE REPLACEMENT /ADVANTAGE - PPO) [id number] Supriya Nayak [id number] Supriya Nayak 08/07/2024 2 [place] Supriya Nayak [id number] Supriya Nayak 08/22/2024 1 [employer] (MEDICARE REPLACEMENT /ADVANTAGE - PPO) [id number] Supriya Nayak [id number] Supriya Nayak 08/22/2024 2 [place] Supriya Nayak [id number] Supriya Nayak 09/02/2024 1 [employer] (MEDICARE REPLACEMENT /ADVANTAGE - PPO) [id number] Supriya Nayak [id number] Supriya Nayak 09/02/2024 2 [place] Supriya Nayak [id number] Supriya Nayak 09/18/2024 1 [employer] (MEDICARE REPLACEMENT /ADVANTAGE - PPO) [id number] Supriya Nayak [id number] Supriya Nayak 09/18/2024 2 [place] Supriya Nayak [id number] Supriya Nayak Notes Date Note Type Note Provider Name and Address Organization Details Recorded Time 08/07/2024 text/html Back PainReporte d bypatient.Location: lumbar;pain radiating to the legs Quality:sharp;achin g;constant Severity:pain level 7/10;moderate (5-7) Duration:chronic Context:trauma Alleviating Factors:Nothing Aggravating Factors:movement/po sitioning; twisting; flexing back; extending back; lifting; housework; walking; standing Associated Symptoms:no fever; no weak limbs; no numbness of the legs/feet; no tingling; no incontinence; no shortness of breath; no unintentional weight loss; no chills; no night sweats; no gait instability; no bowel/bladder symptoms; no recent increase in stress Prior Imaging:MRI; X-ray Uriel Sharma MD [address], [address], [place] [facility] 08/07/2024 23:23:49 08/22/2024 text/html Back PainReporte d bypatient.Location: lumbar;pain radiating to the legs Quality:sharp;achin g;constant Severity:pain level 0/10;mild (1-4) Duration:chronic Context:trauma Alleviating Factors:Nothing Aggravating Factors:movement/po sitioning; twisting; flexing back; extending back; lifting; housework; walking; standing Associated Symptoms:no fever; no weak limbs; no numbness of the legs/feet; no tingling; no incontinence; no shortness of breath; no unintentional weight loss; no chills; no night sweats; no gait instability; no bowel/bladder symptoms; no recent increase in stress Prior Imaging:MRI; X-rayHip(s)Reported bypatient.Location: right Quality:aching; throbbing Severity:pain level 10/10; worst pain 10/10 Timing:constant Duration:2 weeks Context:cannot identify Aggravating Factors:standing; walking; weightbearing Alleviating Factors:dawit Sharma MD [address], [address], [place] [facility] 08/22/2024 15:17:54 09/02/2024 text/html Back PainReporte d bypatient.Location: lumbar;pain radiating to the legs Quality:sharp;achin g;constant Severity:pain level 0/10;mild (1-4) Duration:chronic Context:trauma Alleviating Factors:Nothing Aggravating Factors:movement/po sitioning; twisting; flexing back; extending back; lifting; housework; walking; standing Associated Symptoms:no fever; no weak limbs; no numbness of the legs/feet; no tingling; no incontinence; no shortness of breath; no unintentional weight loss; no chills; no night sweats; no gait instability; no bowel/bladder symptoms; no recent increase in stress Prior Imaging:MRI; X-rayHip(s)Reported bypatient.Location: right Quality:aching; throbbing Severity:pain level 10/10; worst pain 10/10 Timing:constant Duration:2 weeks Context:cannot identify Aggravating Factors:standing; walking; weightbearing Alleviating Factors:dawit Sharma MD [address], [address], [place] [facility] 09/02/2024 13:46:16 OBGyn Episode No OBEpisode recorded.
--- OUTSIDE RECORDS SUMMARY | 2025-05-01 11:58 | XMS_ITS | Encounter Summary ---
Author Organization [facility] Address [address] [place] [address] Care Team Providers Care Business Development Executive Name Role Phone Michael Baez MD Primary Care Provider + [phone] Acacia Scott ADMINISTRATIVE SERVICES OFFICER Unavailable [phone] Virgilio Nguyễn MD Unavailable [phone] Encounter Details Date Type Department Care Team (Late st Contact Info) Description 03/10/2025 Orders Only [facility] [place] [address] [facility], [address] [place] [address] Acacia Scott, ADMINISTRATIVE SERVICES OFFICER [address] [place] [address] Social History Tobacco Use Types [...] drink first t pippa in the morning (EYE-DEVELOPMENT ARCHITECT) to steady your nerves or to get [...] documented as of this encounter Care Teams Business Development Executive Relationship Specialty Start Date End Date Michael Baez MD [address] [place] [address] PCP - General 04/08/21 Acacia Scott APRN [address] [place] [address] Nurse Practitioner Cardiology 03/27/22 Virgilio Nguyễn MD [address] [place] [address] [place] [address] Referring Physician 10/07/24 documented as of this encounter
--- OUTSIDE RECORDS SUMMARY | 2025-05-01 11:59 | XMS_ITS | Encounter Summary ---
Author Organization [employer] [facility] Address [address] [place] [address] Care Team Providers Care Backbreaker Name Role Phone Unavailable Primary Care Provider Unavailabl e Encounter Details Date Type Department Care Team (Late st Contact Info) Description 05/06/2019 Transcribed Document [facility] [address] [place] [address] ProviderCarlitos MD [address] [place] [address] Social History Tobacco Use Types [...] no sleepiness and scores 0/24 in the [place] Sleepiness Scale. OTHER MEDICAL PROBLEMS: Include atrial fibrillation for which she is scheduled to see an instant powder supervisor in the next several days. She has [...] Kalpana Mcguire APRN Electronically signed by [facility] Conversion Maintenance Service Dispatcher Cerner at 03/16/2023 2:48 PM CDT documented in this encounter Plan of Treatment Not on file documented as of this encounter Visit Diagnoses Not on filedocumented in this encounter
--- OUTSIDE RECORDS SUMMARY | 2025-05-01 11:59 | XMS_ITS | Referral Summary ---
Author Organization [facility] [employer] [facility] Address [address] [place] [address] Care Team Providers Care Delivery Supervisor Name Role Phone Unavailable Primary Care Provider [...]
--- OUTSIDE RECORDS SUMMARY | 2025-05-01 11:59 | XMS_ITS | Encounter Summary ---
Author Organization [facility] Address [address] [place] [address] Care Team Providers Care Blackener Name Role Phone Unavailable Primary Care Provider Unavailabl e Encounter Details Date Type Department Care Team (Late st Contact Info) Description 02/18/2019 Transcribed Document [facility] [place] Family Medicine [address] [place] [address] ProviderCarlitos MD [address] [place] [address] Social History Tobacco Use Types [...]
--- OUTSIDE RECORDS SUMMARY | 2025-05-01 11:59 | XMS_ITS | Encounter Summary ---
Author Organization [facility] Address [address] [place] [address] Care Team Providers Care Appointment Manager Name Role Phone Michael Baez MD Primary Care Provider + [phone] Acacia Scott APRN Unavailable [phone] Virgilio Nguyễn MD Unavailable [phone] Encounter Details Date Type Department Care Team (Late st Contact Info) Description 09/01/2024 Orders Only External Location [address] [place] [address] Provider, External Social History Tobacco Use Types [...] drink first t pippa in the morning (EYE-DRAWING KILN OPERATOR) to steady your nerves or to [...] documented as of this encounter Care Teams Appointment Manager Relationship Specialty Start Date End Date Michael Baez MD [address] [place] [address] PCP - General 04/08/21 Acacia Scott APRN [address] [place] [address] Nurse Practitioner Cardiology 03/27/22 Virgilio Nguyễn MD [address] [place] [address] [place] [address] Referring Physician 10/07/24 documented as of this encounter
--- OUTSIDE RECORDS SUMMARY | 2025-05-01 11:59 | XMS_ITS | Encounter Summary ---
Author Organization [employer] Address [address] [place] [id number] Care Team Providers Care Histology Specialist Name Role Phone Unavailable Primary Care Provider Unavailabl e Encounter Details Date Type Department Care Team (Late st Contact Info) Description 07/07/2019 Transcribed Document [facility] [address] [place] [address] ProviderCarlitos MD [address] [place], [place] [id number] Social History Tobacco Use Types Packs/Day Years [...] no sleepiness and scores 0/24 in the Boyers Sleepiness Scale. She does have very mild [...]
--- OUTSIDE RECORDS SUMMARY | 2025-05-01 11:59 | XMS_ITS | Clinical Summary ---
Author Organization [employer] Address [address] [place] [id number] Care Team Providers Care Agricultural Mechanic Name Role Phone Unavailable Primary Care Provider [...]
--- OUTSIDE RECORDS SUMMARY | 2025-05-01 11:59 | XMS_ITS | Data Portability ---
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 I spent over 50% of visit time counseling patient on recommendations. I did discuss this case with Dr. Mohamud. aerwin Not available 12/11/2019 17:06:15 07/18/2022 07/18/2022 #Asthma-COPD Overlap - skin testing today showed sensitization to nothing but her histamine control was negative and so the test was invalid. Will order serum IgE testing. Her skin response may have been blunted by recent temazepam use. - I suspect that the patient may have COPD-asthma overlap - PFTs from May 2022 were technically normal but showed borderline mild obstruction with borderline (though technically normal) reversibility. - 06-21-2022 labs: IgE - 678, AEC 300 - She should continue on Breztri, combivent, and albuterol as per pulmonary - with her elevated IgE of almost 700 as well as an AEC of 300 and her need for frequent steroid use she is eligible for biologics. If blood IgE testing shows sensitization to a perennial allergen then we will start Xolair. If not, then we will start Dupixent. Had her sign paperwork for both today but we will only submit the one she is eligible for. -- AMMENDED - she has dog sensitization at 0.17. This should qualify her for Xolair. #GERD - will make her cough worse - cont with Omeprazole 40mg daily #Obesity (E66) - The patient's BMI is > 30.0 which classifies them as obese. - Data suggest that patients with obesity have higher rates of atopic disease and more difficult to control asthma. - Obesity complicates all aspects of their allergy care. [email or web address] Not available 07/19/2022 16:04:36 Plan of Treatment Reminders Order Date Submit Date Provider Last Modified By Organization Details Last Modified Time Details Appointments None recorded. Lab multiple inhalant allergen IgE Ab, quant, serum 2021 [facility], [address] [place] [address], [id number], 15:40:50 CBC w/ auto diff 2021 [facility], [address] [place] [address], [id number], 12:35:49 IgE, quantitati ve, serum 2021 [facility], [address] [place] [address], [address], 12:35:47 Referral None recorded. Procedures pulse oximetry with exercise (PROC) 2021 aerwin [facility], [address] [place] [address], [id number], 11:34:39 Surgeries None recorded. Imaging RF, esophagus, w/ contrast [facility], [address] [place] [address], [address], 07:06:25 CT, chest, w/o contrast 2021 [facility], [address] [place] [address], [address], 12:21:46 Medication Orders prednisone 20 mg tablet 2021 022 DONNIE [facility], [address] [place] [address] [place], [id number], 2 11:38:48 Levaquin 500 mg tablet [address] [facility], [address] [place] [address] [place], [id number], 2 13:07:02 prednisone 20 mg tablet [address] [facility], [address] [place] [address] [place], [id number], 2 13:07:17 cefdinir 300 mg capsule 2018 019 [email or web address] 0 [facility], [address] [place] [address] [place], [id number], 0 14:58:08 prednisone 20 mg tablet [address], [address] [place] [address] [place], [id number], 2 13:07:17 Ventolin HFA 90 mcg/actuat ion aerosol inhaler 2018 019 INTERFACE [facility], [address] [place] [address] [place], [id number], 9 15:30:58 Trelegy Ellipta 100 mcg-62.5 mcg-25 mcg powder for inhalation [address], [address] [place] [address] [place], [id number], 2 13:07:57 ipratropiu m 0.5 mg-albuter ol 3 mg (2.5 mg base)/3 mL nebulizati on soln 2018 019 [email or web address], [address], [place], [id number], 14:21:09 Patient TargetsNo targets recorded. Patient Instructions Encounter Date Encounter Id Patient Instructions Last Modified By Organization Details Last Modified Time 08/07/2019 [id number] learning about chronic bronchitis aerwin Not available 08/07/2019 15:27:27 chronic obstruct yunier pulmonary disease (COPD): care instructions aerwin Not available 08/07/2019 15:30:40 learning about c opd and how to prevent lung infections aerwin Not available 08/07/2019 15:30:40 Return to clinic in 6 months. aerwin Not available 08/07/2019 16:08:48 12/11/2019 [id number] influenza (flu) vaccine: care instructions aerwin Not available 12/15/2019 08:02:22 pneumonia: care instructions aerwin Not available 12/11/2019 16:00:07 chronic obstruct yunier pulmonary disease (COPD): care instructions aerwin Not available 12/15/2019 08:02:22 learning about c opd and how to prevent lung infections aerwin Not available 12/15/2019 08:02:22 04/20/2022 [id number] I will call her with further recommendations after CT results returns. aerwin Not available 04/20/2022 14:21:28 06/21/2022 [id number] rtc after barium swallow/labs aerwin Not available 06/21/2022 16:32:39 Reason for Referral None Reported. Results Created Date Observation Date Name Description Value Unit Range Abnormal Flag Note LastModifiedBy Organization Detail LastModifiedTime 06/21/2006/21/2022 COMPL ETE BLOOD COUNT white blood cells 6.1 K/uL 3.8-10 .8 normal Not Available [facility] [address] [place], [address], 06/21/2022 12:35:49 06/21/20 22 06/21/2022 COMPL ETE BLOOD COUNT red blood cells 4.73 M/uL 3.80-5 .20 normal Not Available [facility] [address] [place] [address], [address], 06/21/2022 12:35:49 06/21/20 22 06/21/2022 COMPL ETE BLOOD COUNT hemoglobin 14.6 g/dL 12.0-1 6.0 normal Not Available [facility] [address] [place] [address], [address], 06/21/2022 12:35:49 06/21/20 22 06/21/2022 COMPL ETE BLOOD COUNT hematocrit 42.6 % 35.0-4 7.0 normal Not Available [facility] [address] [place] [address], [address], 06/21/2022 12:35:49 06/21/20 22 06/21/2022 COMPL ETE BLOOD COUNT MCV 90 fL 80-100 normal Not Available [facility] [address] [place] [address], [address], 06/21/2022 12:35:49 06/21/20 22 06/21/2022 COMPL ETE BLOOD COUNT MCH 31 pg 26-35 normal Not Available [facility] [address] [place] [address], [address], 06/21/2022 12:35:49 06/21/20 22 06/21/2022 COMPL ETE BLOOD COUNT MCHC 34 g/dL 32-36 normal Not Available [facility] [address] [place] [address], [address], 06/21/2022 12:35:49 06/21/20 22 06/21/2022 COMPL ETE BLOOD COUNT RDW 13.9 % 11.0-1 5.0 normal Not Available [facility] [address] [place] [address], [address], 06/21/2022 12:35:49 06/21/20 22 06/21/2022 COMPL ETE BLOOD COUNT MPV 6.9 fL 6.2-10 .5 normal Not Available [facility] [address] [place] [address], [address], 06/21/2022 12:35:49 06/21/20 22 06/21/2022 COMPL ETE BLOOD COUNT platelet count 296 K/uL 130-40 0 normal Not Available [facility] [address] [place] [address], [address], 06/21/2022 12:35:49 06/21/20 22 06/21/2022 COMPL ETE BLOOD COUNT neutrophil,a bsolute 3.2 K/uL 1.6-8. 4 normal Not Available [facility] [address] [place] [address], [address], 06/21/2022 12:35:49 06/21/20 22 06/21/2022 COMPL ETE BLOOD COUNT lymphocyte,a bsolute 2.1 K/uL 0.4-5. 1 normal Not Available [facility] [address] [place] [address], [address], 06/21/2022 12:35:49 06/21/20 22 06/21/2022 COMPL ETE BLOOD COUNT monocyte,abs olute 0.5 K/uL 0.0-1. 2 normal Not Available [facility] [address] [place] [address], [address], 06/21/2022 12:35:49 06/21/20 22 06/21/2022 COMPL ETE BLOOD COUNT eosinophil,a bsolute 0.3 K/uL 0.0-0. 8 normal Not Available [facility] [address] [place] [address], [address], 06/21/2022 12:35:49 06/21/20 22 06/21/2022 COMPL ETE BLOOD COUNT basophil,abs olute 0.0 K/uL 0.0-0. 3 normal Not Available [facility] [address] [place] [address], [address], 06/21/2022 12:35:49 06/21/20 22 06/21/2022 COMPL ETE BLOOD COUNT % neutrophils 51.6 % 42.0-7 8.0 normal Not Available [facility] [address] [place] [address], [address], 06/21/2022 12:35:49 06/21/20 22 06/21/2022 COMPL ETE BLOOD COUNT % lymphocytes 34.5 % 11.0-4 7.0 normal Not Available [facility] [address] [place] [address], [address], 06/21/2022 12:35:49 06/21/20 22 06/21/2022 COMPL ETE BLOOD COUNT % monocytes 7.9 % 0.0-11 .0 normal Not Available [facility] [address] [place] [address], [address], 06/21/2022 12:35:49 06/21/20 22 06/21/2022 COMPL ETE BLOOD COUNT % eosinophils 5.3 % 0.0-7. 0 normal Not Available [facility] [address] [place] [address], [address], 06/21/2022 12:35:49 06/21/20 22 06/21/2022 COMPL ETE BLOOD COUNT % basophils 0.7 % 0.0-3. 0 normal Not Available [facility] [address] [place] [address], [address], 06/21/2022 12:35:49 06/21/20 22 06/21/2022 COMPL ETE BLOOD COUNT nucleated red cells 0.0 % 0.0-0. 9 normal Not Available [facility] [address] [place] [address], [address], 06/21/2022 12:35:49 06/21/20 22 06/21/2022 COMPL ETE BLOOD COUNT nucleated RBCs, absolute 0.00 K/uL not estab. normal Not Available [facility] [address] [place] [address], [address], 06/21/2022 12:35:49 06/21/20 22 06/23/2022 IGE, TOTAL IgE, total 678 kU/L <or=11 4 high TEST PERFO [facility]MED AT: [facility] [address] [place] [address] NGHIA Brown MD Not Available [facility] [address] [place], [address], 06/23/2022 12:35:47 07/18/20 22 07/19/2022 COMPR EHENS YUNIER INHAL ANT PANEL interpretati on See Below normal Speci fic Level of Aller gen IGE Class kU/L Speci fic IGE Antib tori ----- ----- ---- ----- ----- ----- ---- 0 <0.10 Absen t/Und etect able 0/1 0.10- 0.34 Very Low Level 1 0.35- 0.69 Low Level 2 0.70- 3.49 Moder ate Level 3 3.50- 17.4 High Level 4 17.5- 49.9 Very High Level 5 50-10 0 Very High Level 6 >100 Very High Level The clini susan relev ance of aller gen resul ts of 0.10- 0.34 kU/L are undet ermin ed and inten ded for speci alist use. Aller gens denot ed with a inclu de resul ts using one or more lowell te speci fic reage nts. In those cases , the test was devel oped and its lowell tical perfo rmanc e kathleen cteri stics have been deter mined by [facility]. It has not been clear ed or appro amos by the U.S. Food and Drug Admin istra tion. This assay has been valid ated pursu ant to the CLIA regul ation s and is used for clini susan purpo ses. TEST PERFO RMED AT: [facility] [address] [place] [address] NGHIA Brown MD Not Available [facility] [address] [place] [address], [address], 07/19/2022 15:40:50 07/18/20 22 07/19/2022 COMPR EHENS YUNIER INHAL ANT PANEL cottonwood tree <0.10 kU/L normal Not Available [facility] [address] [place] [address], [address], 07/19/2022 15:40:50 07/18/20 22 07/19/2022 COMPR EHENS YUNIER INHAL ANT PANEL class 0 normal Not Available [facility] [address] [place] [address], [address], 07/19/2022 15:40:50 07/18/20 22 07/19/2022 COMPR EHENS YUNIER INHAL ANT PANEL white debby <0.10 kU/L normal Not Available [facility] [address] [place] [address], [address], 07/19/2022 15:40:50 07/18/20 22 07/19/2022 COMPR EHENS YUNIER INHAL ANT PANEL class 0 normal Not Available [facility] [address] [place] [address], [address], 07/19/2022 15:40:50 07/18/20 22 07/19/2022 COMPR EHENS YUNIER INHAL ANT PANEL white pine <0.10 kU/L normal Not Available [facility] [address] [place] [address], [address], 07/19/2022 15:40:50 07/18/20 22 07/19/2022 COMPR EHENS YUNIER INHAL ANT PANEL class 0 normal Not Available [facility] [address] [place] [address], [address], 07/19/2022 15:40:50 07/18/20 22 07/19/2022 COMPR EHENS YUNIER INHAL ANT PANEL CAT dander <0.10 kU/L normal Not Available [facility] [address] [place] [address], [address], 07/19/2022 15:40:50 07/18/20 22 07/19/2022 COMPR EHENS YUNIER INHAL ANT PANEL class 0 normal Not Available [facility] [address] [place] [address], [address], 07/19/2022 15:40:50 07/18/20 22 07/19/2022 COMPR EHENS YUNIER INHAL ANT PANEL horse dander <0.10 kU/L normal Not Available [facility] [address] [place] [address], [address], 07/19/2022 15:40:50 07/18/20 22 07/19/2022 COMPR EHENS YUNIER INHAL ANT PANEL class 0 normal Not Available [facility] [address] [place] [address], [address], 07/19/2022 15:40:50 07/18/20 22 07/19/2022 COMPR EHENS YUNIER INHAL ANT PANEL cow dander <0.10 kU/L normal Not Available [facility] [address] [place] [address], [address], 07/19/2022 15:40:50 07/18/20 22 07/19/2022 COMPR EHENS YUNIER INHAL ANT PANEL class 0 normal Not Available [facility] [address] [place] [address], [address], 07/19/2022 15:40:50 07/18/20 22 07/19/2022 COMPR EHENS YUNIER INHAL ANT PANEL dog dander 0.17 kU/L high Not Available [facility] [address] [place] [address], [address], 07/19/2022 15:40:50 07/18/20 22 07/19/2022 COMPR EHENS YUNIER INHAL ANT PANEL class 0/1 normal Not Available [facility] [address] [place] [address], [address], 07/19/2022 15:40:50 07/18/20 22 07/19/2022 COMPR EHENS YUNIER INHAL ANT PANEL goose feathers <0.10 kU/L normal Not Available [facility] [address] [place] [address], [address], 07/19/2022 15:40:50 07/18/20 22 07/19/2022 COMPR EHENS YUNIER INHAL ANT PANEL class 0 normal Not Available [facility] [address] [place] [address], [address], 07/19/2022 15:40:50 07/18/20 22 07/19/2022 COMPR EHENS YUNIER INHAL ANT PANEL penicillium notatum <0.10 kU/L normal Not Available [facility] [address] [place] [address], [address], 07/19/2022 15:40:50 07/18/20 22 07/19/2022 COMPR EHENS YUINER INHAL ANT PANEL class 0 normal Not Available [facility] [address] [place] [address], [address], 07/19/2022 15:40:50 07/18/20 22 07/19/2022 COMPR EHENS YUNIER INHAL ANT PANEL cladosporium herbarum <0.10 kU/L normal Not Available [facility] [address] [place] [address], [address], 07/19/2022 15:40:50 07/18/20 22 07/19/2022 COMPR EHENS YUNIER INHAL ANT PANEL class 0 normal Not Available [facility] [address] [place] [address], [address], 07/19/2022 15:40:50 07/18/20 22 07/19/2022 COMPR EHENS YUNIER INHAL ANT PANEL aspergillus fumigatus <0.10 kU/L normal Not Available [facility] [address] [place] [address], [address], 07/19/2022 15:40:50 07/18/20 22 07/19/2022 COMPR EHENS YUNIER INHAL ANT PANEL class 0 normal Not Available [facility] [address] [place] [address], [address], 07/19/2022 15:40:50 07/18/20 22 07/19/2022 COMPR EHENS YUNIER INHAL ANT PANEL mucor racemosus <0.10 kU/L normal Not Available [facility] [address] [place] [address], [address], 07/19/2022 15:40:50 07/18/20 22 07/19/2022 COMPR EHENS YUNIER INHAL ANT PANEL class 0 normal Not Available [facility] [address] [place] [address], [address], 07/19/2022 15:40:50 07/18/20 22 07/19/2022 COMPR EHENS YUNIER INHAL ANT PANEL dorie albicans <0.10 kU/L normal Not Available [facility] [address] [place] [address], [address], 07/19/2022 15:40:50 07/18/20 22 07/19/2022 COMPR EHENS YUNIER INHAL ANT PANEL class 0 normal Not Available [facility] [address] [place] [address], [address], 07/19/2022 15:40:50 07/18/20 22 07/19/2022 COMPR EHENS YUNIER INHAL ANT PANEL alternaria alternata <0.10 kU/L normal Not Available [facility] [address] [place] [address], [address], 07/19/2022 15:40:50 07/18/20 22 07/19/2022 COMPR EHENS YUNIER INHAL ANT PANEL class 0 normal Not Available [facility] [address] [place] [address], [address], 07/19/2022 15:40:50 07/18/20 22 07/19/2022 COMPR EHENS YUNIER INHAL ANT PANEL D. farinae <0.10 kU/L normal Not Available [facility] [address] [place] [address], [address], 07/19/2022 15:40:50 07/18/20 22 07/19/2022 COMPR EHENS YUNIER INHAL ANT PANEL class 0 normal Not Available [facility] [address] [place] [address], [address], 07/19/2022 15:40:50 07/18/20 22 07/19/2022 COMPR EHENS YUNIER INHAL ANT PANEL D. pteronyssinu s <0.10 kU/L normal Not Available [facility] [address] [place] [address], [address], 07/19/2022 15:40:50 07/18/20 22 07/19/2022 COMPR EHENS YUNIER INHAL ANT PANEL class 0 normal Not Available [facility] [address] [place] [address], [address], 07/19/2022 15:40:50 07/18/20 22 07/19/2022 COMPR EHENS YUNIER INHAL ANT PANEL cockroach <0.10 kU/L normal Not Available [facility] [address] [place] [address], [address], 07/19/2022 15:40:50 07/18/20 22 07/19/2022 COMPR EHENS YUNIER INHAL ANT PANEL class 0 normal Not Available [facility] [address] [place] [address], [address], 07/19/2022 15:40:50 07/18/20 22 07/19/2022 COMPR EHENS YUNIER INHAL ANT PANEL epicoccum purpurasce <0.10 kU/L normal Not Available [facility] [address] [place] [address], [address], 07/19/2022 15:40:50 07/18/20 22 07/19/2022 COMPR EHENS YUNIER INHAL ANT PANEL class 0 normal Not Available [facility] [address] [place] [address], [address], 07/19/2022 15:40:50 07/18/20 22 07/19/2022 COMPR EHENS YUNIER INHAL ANT PANEL fusarium moniliforme <0.10 kU/L normal Not Available [facility] [address] [place] [address], [address], 07/19/2022 15:40:50 07/18/20 22 07/19/2022 COMPR EHENS YUNIER INHAL ANT PANEL class 0 normal Not Available [facility] [address] [place] [address], [address], 07/19/2022 15:40:50 07/18/20 22 07/19/2022 COMPR EHENS YUNIER INHAL ANT PANEL rhizopus nigricans <0.10 kU/L normal Not Available [facility] [address] [place] [address], [address], 07/19/2022 15:40:50 07/18/20 22 07/19/2022 COMPR EHENS YUNIER INHAL ANT PANEL class 0 normal Not Available [facility] [address] [place] [address], [address], 07/19/2022 15:40:50 07/18/20 22 07/19/2022 COMPR EHENS YUNIER INHAL ANT PANEL stemph. botryosum <0.10 kU/L normal Not Available [facility] [address] [place] [address], [address], 07/19/2022 15:40:50 07/18/20 22 07/19/2022 COMPR EHENS YUNIER INHAL ANT PANEL class 0 normal TEST PERFO RMED AT: [facility] [place] [address] [place] [address] NGHIA Brown MD Not Available [facility] [address] [place] [address], [address], 07/19/2022 15:40:50 07/18/20 22 07/19/2022 COMPR EHENS YUNIER INHAL ANT PANEL rabbit epithelia <0.10 kU/L normal Not Available [facility] [address] [place] [address], [address], 07/19/2022 15:40:50 07/18/20 22 07/19/2022 COMPR EHENS YUNIER INHAL ANT PANEL class 0 normal Not Available [facility] [address] [place] [address], [address], 07/19/2022 15:40:50 07/18/20 22 07/19/2022 COMPR EHENS YUNIER INHAL ANT PANEL guinea pig epithelia <0.10 kU/L normal Not Available [facility] [address] [place] [address], [address], 07/19/2022 15:40:50 07/18/20 22 07/19/2022 COMPR EHENS YUNIER INHAL ANT PANEL class 0 normal Not Available [facility] [address] [place] [address], [address], 07/19/2022 15:40:50 07/18/20 22 07/19/2022 COMPR EHENS YUNIER INHAL ANT PANEL willow <0.10 kU/L normal Not Available [facility] [address] [place] [address], [address], 07/19/2022 15:40:50 07/18/20 22 07/19/2022 COMPR EHENS YUNIER INHAL ANT PANEL class 0 normal Not Available [facility] [address] [place] [address], [address], 07/19/2022 15:40:50 07/18/20 22 07/19/2022 COMPR EHENS YUNIER INHAL ANT PANEL IgE, total 664 kU/L <or=11 4 high Not Available [facility] [address] [place] [address], [address], 07/19/2022 15:46:06 07/18/20 22 07/19/2022 COMPR EHENS YUNIER INHAL ANT PANEL bermuda grass <0.10 kU/L normal Not Available [facility] [address] [place] [address], [address], 07/19/2022 15:46:06 07/18/20 22 07/19/2022 COMPR EHENS YUNIER INHAL ANT PANEL class 0 normal Not Available [facility] [address] [place] [address], [address], 07/19/2022 15:46:06 07/18/20 22 07/19/2022 COMPR EHENS YUNIER INHAL ANT PANEL ethan grass <0.10 kU/L normal Not Available [facility] [address] [place] [address], [address], 07/19/2022 15:46:06 07/18/20 22 07/19/2022 COMPR EHENS YUNIER INHAL ANT PANEL class 0 normal Not Available [facility] [address] [place] [address], [address], 07/19/2022 15:46:06 07/18/20 22 07/19/2022 COMPR EHENS YUNIER INHAL ANT PANEL dot grass (ky blue) <0.10 kU/L normal Not Available [facility] [address] [place] [address], [address], 07/19/2022 15:46:06 07/18/20 22 07/19/2022 COMPR EHENS YUNIER INHAL ANT PANEL class 0 normal Not Available [facility] [address] [place] [address], [address], 07/19/2022 15:46:06 07/18/20 22 07/19/2022 COMPR EHENS YUNIER INHAL ANT PANEL leonard grass <0.10 kU/L normal Not Available [facility] [address] [place] [address], [address], 07/19/2022 15:46:06 07/18/20 22 07/19/2022 COMPR EHENS YUNIER INHAL ANT PANEL class 0 normal Not Available [facility] [address] [place] [address], [address], 07/19/2022 15:46:06 07/18/20 22 07/19/2022 COMPR EHENS YUNIER INHAL ANT PANEL common ragweed <0.10 kU/L normal Not Available [facility] [address] [place] [address], [address], 07/19/2022 15:46:06 07/18/20 22 07/19/2022 COMPR EHENS YUNIER INHAL ANT PANEL class 0 normal Not Available [facility] [place], [address], 07/19/2022 15:46:06 07/18/20 22 07/19/2022 COMPR EHENS YUNIER INHAL ANT PANEL interpretati on See Below normal Speci fic Level of Aller gen IGE Class kU/L Speci fic IGE Antib tori ----- ----- ---- ----- ----- ----- ---- 0 <0.10 Absen t/Und etect able 0/1 0.10- 0.34 Very Low Level 1 0.35- 0.69 Low Level 2 0.70- 3.49 Moder ate Level 3 3.50- 17.4 High Level 4 17.5- 49.9 Very High Level 5 50-10 0 Very High Level 6 >100 Very High Level The clini susan relev ance of aller gen resul ts of 0.10- 0.34 kU/L are undet ermin ed and inten ded for speci alist use. Aller gens denot ed with a inclu de resul ts using one or more lowell te speci fic reage nts. In those cases , the test was devel oped and its lowell tical perfo rmanc e kathleen cteri stics have been deter mined by [facility]. It has not been clear ed or appro amos by the U.S. Food and Drug Admin istra tion. This assay has been valid ated pursu ant to the CLIA regul ation s and is used for clini susan purpo ses. TEST PERFO RMED AT: [facility] [address] [place] [address] NGHIA Brown MD Not Available [facility] [address] [place] [address], [address], 07/19/2022 15:46:06 07/18/20 22 07/19/2022 COMPR EHENS YUNIER INHAL ANT PANEL wormwood <0.10 kU/L normal Not Available [facility] [address] [place] [address], [address], 07/19/2022 15:46:06 07/18/20 22 07/19/2022 COMPR EHENS YUNIER INHAL ANT PANEL class 0 normal Not Available [facility] [address] [place] [address], [address], 07/19/2022 15:46:06 07/18/20 22 07/19/2022 COMPR EHENS YUNIER INHAL ANT PANEL indonesian plantain <0.10 kU/L normal Not Available [facility] [address] [place] [address], [address], 07/19/2022 15:46:06 07/18/20 22 07/19/2022 COMPR EHENS YUNIER INHAL ANT PANEL class 0 normal Not Available [facility] [address] [place] [address], [address], 07/19/2022 15:46:06 07/18/20 22 07/19/2022 COMPR EHENS YUNIER INHAL ANT PANEL lambs quarters <0.10 kU/L normal Not Available [facility] [address] [place] [address], [address], 07/19/2022 15:46:06 07/18/20 22 07/19/2022 COMPR EHENS YUNIER INHAL ANT PANEL class 0 normal Not Available [facility] [address] [place] [address], [address], 07/19/2022 15:46:06 07/18/20 22 07/19/2022 COMPR EHENS YUNIER INHAL ANT PANEL somali thistle <0.10 kU/L normal Not Available [facility] [address] [place] [address], [address], 07/19/2022 15:46:06 07/18/20 22 07/19/2022 COMPR EHENS YUNIER INHAL ANT PANEL class 0 normal Not Available [facility] [address] [place] [address], [address], 07/19/2022 15:46:06 07/18/20 22 07/19/2022 COMPR EHENS YUNIER INHAL ANT PANEL goldenrod <0.10 kU/L normal Not Available [facility] [address] [place] [address], [address], 07/19/2022 15:46:06 07/18/20 22 07/19/2022 COMPR EHENS YUNIER INHAL ANT PANEL class 0 normal Not Available [facility] [address] [place] [address], [address], 07/19/2022 15:46:06 07/18/20 22 07/19/2022 COMPR EHENS YUNIER INHAL ANT PANEL cocklebur <0.10 kU/L normal Not Available [facility] [address] [place] [address], [address], 07/19/2022 15:46:06 07/18/20 22 07/19/2022 COMPR EHENS YUNIER INHAL ANT PANEL class 0 normal Not Available [facility] [address] [place] [address], [address], 07/19/2022 15:46:06 07/18/20 22 07/19/2022 COMPR EHENS YUNIER INHAL ANT PANEL rough pigweed <0.10 kU/L normal Not Available [facility] [address] [place] [address], [address], 07/19/2022 15:46:06 07/18/20 22 07/19/2022 COMPR EHENS YUNIER INHAL ANT PANEL class 0 normal Not Available [facility] [address] [place] [address], [address], 07/19/2022 15:46:06 07/18/20 22 07/19/2022 COMPR EHENS YUNIER INHAL ANT PANEL sheep daryl <0.10 kU/L normal Not Available [facility] [address] [place] [address], [address], 07/19/2022 15:46:06 07/18/20 22 07/19/2022 COMPR EHENS YUNIER INHAL ANT PANEL class 0 normal Not Available [facility] [address] [place] [address], [address], 07/19/2022 15:46:06 07/18/20 22 07/19/2022 COMPR EHENS YUNIER INHAL ANT PANEL nettle <0.10 kU/L normal Not Available [facility] [address] [place] [address], [address], 07/19/2022 15:46:06 07/18/20 22 07/19/2022 COMPR EHENS YUNIER INHAL ANT PANEL class 0 normal Not Available [facility] [address] [place] [address], [address], 07/19/2022 15:46:06 07/18/20 22 07/19/2022 COMPR EHENS YUNIER INHAL ANT PANEL maple (box elder) <0.10 kU/L normal Not Available [facility] [address] [place] [address], [address], 07/19/2022 15:46:06 07/18/20 22 07/19/2022 COMPR EHENS YUNIER INHAL ANT PANEL class 0 normal Not Available [facility] [address] [place] [address], [address], 07/19/2022 15:46:06 07/18/20 22 07/19/2022 COMPR EHENS YUNIER INHAL ANT PANEL birch <0.10 kU/L normal Not Available [facility] [address] [place] [address], [address], 07/19/2022 15:46:06 07/18/20 22 07/19/2022 COMPR EHENS YUNIER INHAL ANT PANEL class 0 normal Not Available [facility] [address] [place] [address], [address], 07/19/2022 15:46:06 07/18/20 22 07/19/2022 COMPR EHENS YUNIER INHAL ANT PANEL mountain cedar <0.10 kU/L normal Not Available [facility] [address] [place] [address], [address], 07/19/2022 15:46:06 07/18/20 22 07/19/2022 COMPR EHENS YUNIER INHAL ANT PANEL class 0 normal Not Available [facility] [address] [place] [address], [address], 07/19/2022 15:46:06 07/18/20 22 07/19/2022 COMPR EHENS YUNIER INHAL ANT PANEL oak <0.10 kU/L normal Not Available [facility] [address] [place] [address], [address], 07/19/2022 15:46:06 07/18/20 22 07/19/2022 COMPR EHENS YUNIER INHAL ANT PANEL class 0 normal Not Available [facility] [address] [place] [address], [address], 07/19/2022 15:46:06 07/18/20 22 07/19/2022 COMPR EHENS YUNIER INHAL ANT PANEL elm <0.10 kU/L normal Not Available [facility] [address] [place] [address], [address], 07/19/2022 15:46:06 07/18/20 22 07/19/2022 COMPR EHENS YUNIER INHAL ANT PANEL class 0 normal Not Available [facility] [address] [place] [address], [address], 07/19/2022 15:46:06 07/18/20 22 07/19/2022 COMPR EHENS YUNIER INHAL ANT PANEL sycamore <0.10 kU/L normal Not Available [facility] [address] [place] [address], [address], 07/19/2022 15:46:06 07/18/20 22 07/19/2022 COMPR EHENS YUNIER INHAL ANT PANEL class 0 normal TEST PERFO RMED AT: [facility] [address] [facility] [phone] NGHIA Brown MD Not Available [facility] [address] [place] [address], [address], 07/19/2022 15:46:06 07/18/20 22 07/19/2022 COMPR EHENS YUNIER INHAL ANT PANEL cottonwood tree <0.10 kU/L normal Not Available [facility] [address] [place] [address], [address], 07/19/2022 15:46:06 07/18/20 22 07/19/2022 COMPR EHENS YUNIER INHAL ANT PANEL class 0 normal Not Available [facility] [address] [place] [address], [address], 07/19/2022 15:46:06 07/18/20 22 07/19/2022 COMPR EHENS YUNIER INHAL ANT PANEL white debby <0.10 kU/L normal Not Available [facility] [address] [place] [address], [address], 07/19/2022 15:46:06 07/18/20 22 07/19/2022 COMPR EHENS YUNIER INHAL ANT PANEL class 0 normal Not Available [facility] [address] [place] [address], [address], 07/19/2022 15:46:06 07/18/20 22 07/19/2022 COMPR EHENS YUNIER INHAL ANT PANEL white pine <0.10 kU/L normal Not Available [facility] [address] [place] [address], [address], 07/19/2022 15:46:06 07/18/20 22 07/19/2022 COMPR EHENS YUNIER INHAL ANT PANEL class 0 normal Not Available [facility] [address] [place] [address], [address], 07/19/2022 15:46:06 07/18/20 22 07/19/2022 COMPR EHENS YUNIER INHAL ANT PANEL CAT dander <0.10 kU/L normal Not Available [facility] [address] [place] [address], [address], 07/19/2022 15:46:06 07/18/20 22 07/19/2022 COMPR EHENS YUNIER INHAL ANT PANEL class 0 normal Not Available [facility] [address] [place] [address], [address], 07/19/2022 15:46:06 07/18/20 22 07/19/2022 COMPR EHENS YUNIER INHAL ANT PANEL horse dander <0.10 kU/L normal Not Available [facility] [address] [place] [address], [address], 07/19/2022 15:46:06 07/18/20 22 07/19/2022 COMPR EHENS YUNIER INHAL ANT PANEL class 0 normal Not Available [facility] [address] [place] [address], [address], 07/19/2022 15:46:06 07/18/20 22 07/19/2022 COMPR EHENS YUNIER INHAL ANT PANEL cow dander <0.10 kU/L normal Not Available [facility] [address] [place] [address], [address], 07/19/2022 15:46:06 07/18/20 22 07/19/2022 COMPR EHENS YUNIER INHAL ANT PANEL class 0 normal Not Available [facility] [address] [place] [address], [address], 07/19/2022 15:46:06 07/18/20 22 07/19/2022 COMPR EHENS YUNIER INHAL ANT PANEL dog dander 0.17 kU/L high Not Available [facility] [address] [place] [address], [address], 07/19/2022 15:46:06 07/18/20 22 07/19/2022 COMPR EHENS YUNIER INHAL ANT PANEL class 0/1 normal Not Available [facility] [address] [place] [address], [address], 07/19/2022 15:46:06 07/18/20 22 07/19/2022 COMPR EHENS YUNIER INHAL ANT PANEL goose feathers <0.10 kU/L normal Not Available [facility] [address] [place] [address], [address], 07/19/2022 15:46:06 07/18/20 22 07/19/2022 COMPR EHENS YUNIER INHAL ANT PANEL class 0 normal Not Available [facility] [address] [place] [address], [address], 07/19/2022 15:46:06 07/18/20 22 07/19/2022 COMPR EHENS YUNIER INHAL ANT PANEL penicillium notatum <0.10 kU/L normal Not Available [facility] [address] [place] [address], [address], 07/19/2022 15:46:06 07/18/20 22 07/19/2022 COMPR EHENS YUNIER INHAL ANT PANEL class 0 normal Not Available [facility] [address] [place] [address], [address], 07/19/2022 15:46:06 07/18/20 22 07/19/2022 COMPR EHENS YUNIER INHAL ANT PANEL cladosporium herbarum <0.10 kU/L normal Not Available [facility] [address] [place] [address], [address], 07/19/2022 15:46:06 07/18/20 22 07/19/2022 COMPR EHENS YUNIER INHAL ANT PANEL class 0 normal Not Available [facility] [address] [place] [address], [address], 07/19/2022 15:46:06 07/18/20 22 07/19/2022 COMPR EHENS YUNIER INHAL ANT PANEL aspergillus fumigatus <0.10 kU/L normal Not Available [facility] [address] [place] [address], [address], 07/19/2022 15:46:06 07/18/20 22 07/19/2022 COMPR EHENS YUNIER INHAL ANT PANEL class 0 normal Not Available [facility] [address] [place] [address], [address], 07/19/2022 15:46:06 07/18/20 22 07/19/2022 COMPR EHENS YUNIER INHAL ANT PANEL mucor racemosus <0.10 kU/L normal Not Available [facility] [address] [place] [address], [address], 07/19/2022 15:46:06 07/18/20 22 07/19/2022 COMPR EHENS YUNIER INHAL ANT PANEL class 0 normal Not Available [facility] [address] [place] [address], [address], 07/19/2022 15:46:06 07/18/20 22 07/19/2022 COMPR EHENS YUNIER INHAL ANT PANEL dorie albicans <0.10 kU/L normal Not Available [facility] [address] [place] [address], [address], 07/19/2022 15:46:06 07/18/20 22 07/19/2022 COMPR EHENS YUNIER INHAL ANT PANEL class 0 normal Not Available [facility] [address] [place] [address], [address], 07/19/2022 15:46:06 07/18/20 22 07/19/2022 COMPR EHENS YUNIER INHAL ANT PANEL alternaria alternata <0.10 kU/L normal Not Available [facility] [address] [place] [address], [address], 07/19/2022 15:46:06 07/18/20 22 07/19/2022 COMPR EHENS YUNIER INHAL ANT PANEL class 0 normal Not Available [facility] [address] [place] [address], [address], 07/19/2022 15:46:06 07/18/20 22 07/19/2022 COMPR EHENS YUNIRE INHAL ANT PANEL D. farinae <0.10 kU/L normal Not Available [facility] [address] [place] [address], [address], 07/19/2022 15:46:06 07/18/20 22 07/19/2022 COMPR EHENS YUNIER INHAL ANT PANEL class 0 normal Not Available [facility] [address] [place] [address], [address], 07/19/2022 15:46:06 07/18/20 22 07/19/2022 COMPR EHENS YUNIER INHAL ANT PANEL D. pteronyssinu s <0.10 kU/L normal Not Available [facility] [address] [place] [address], [address], 07/19/2022 15:46:06 07/18/20 22 07/19/2022 COMPR EHENS YUNIER INHAL ANT PANEL class 0 normal Not Available [facility] [address] [place] [address], [address], 07/19/2022 15:46:06 07/18/20 22 07/19/2022 COMPR EHENS YUNIER INHAL ANT PANEL cockroach <0.10 kU/L normal Not Available [facility] [address] [place] [address], [address], 07/19/2022 15:46:06 07/18/20 22 07/19/2022 COMPR EHENS YUNIER INHAL ANT PANEL class 0 normal Not Available [facility] [address] [place] [address], [address], 07/19/2022 15:46:06 07/18/20 22 07/19/2022 COMPR EHENS YUNIER INHAL ANT PANEL epicoccum purpurasce <0.10 kU/L normal Not Available [facility] [address] [place] [address], [address], 07/19/2022 15:46:06 07/18/20 22 07/19/2022 COMPR EHENS YUNIER INHAL ANT PANEL class 0 normal Not Available [facility] [address] [place] [address], [address], 07/19/2022 15:46:06 07/18/20 22 07/19/2022 COMPR EHENS YUNIER INHAL ANT PANEL fusarium moniliforme <0.10 kU/L normal Not Available [facility] [address] [place] [address], [address], 07/19/2022 15:46:06 07/18/20 22 07/19/2022 COMPR EHENS YUNIER INHAL ANT PANEL class 0 normal Not Available [facility] [address] [place] [address], [address], 07/19/2022 15:46:06 07/18/20 22 07/19/2022 COMPR EHENS YUNIER INHAL ANT PANEL rhizopus nigricans <0.10 kU/L normal Not Available [facility] [address] [place] [address], [address], 07/19/2022 15:46:06 07/18/20 22 07/19/2022 COMPR EHENS YUNIER INHAL ANT PANEL class 0 normal Not Available [facility] [address] [place] [address], [address], 07/19/2022 15:46:06 07/18/20 22 07/19/2022 COMPR EHENS YUNIER INHAL ANT PANEL stemph. botryosum <0.10 kU/L normal Not Available [facility] [address] [place] [address], [address], 07/19/2022 15:46:06 07/18/20 22 07/19/2022 COMPR EHENS YUNIER INHAL ANT PANEL class 0 normal TEST PERFO RMED AT: [facility] [address] [facility], [place] [phone] NGHIA Brown MD Not Available [facility] [address] [place] [address], [address], 07/19/2022 15:46:06 07/18/20 22 07/19/2022 COMPR EHENS YUNIER INHAL ANT PANEL rabbit epithelia <0.10 kU/L normal Not Available [facility] [address] [place] [address], [address], 07/19/2022 15:46:06 07/18/20 22 07/19/2022 COMPR EHENS YUNIER INHAL ANT PANEL class 0 normal Not Available [facility] [address] [place] [address], [address], 07/19/2022 15:46:06 07/18/20 22 07/19/2022 COMPR EHENS YUNIER INHAL ANT PANEL guinea pig epithelia <0.10 kU/L normal Not Available [facility] [address] [place] [address], [address], 07/19/2022 15:46:06 07/18/20 22 07/19/2022 COMPR EHENS YUNIER INHAL ANT PANEL class 0 normal Not Available [facility] [address] [place] [address], [address], 07/19/2022 15:46:06 07/18/20 22 07/19/2022 COMPR EHENS YUNIER INHAL ANT PANEL willow <0.10 kU/L normal Not Available [facility] [address] [place] [address], [address], 07/19/2022 15:46:06 07/18/20 22 07/19/2022 COMPR EHENS YUNIER INHAL ANT PANEL class 0 normal Not Available [facility] [address] [place], [address], 07/19/2022 15:46:06 08/07/20 19 08/07/2019 LDCT, chest , for lung mindyce r jennifer charles [facility] [address] [place] [id number] Patiber t Name: MANDA SANTACRUZ Stephanie Anaybre prasad : [phone] t Orderi ng Provid er: CARMEL SHARMA EXAM DATE: 2018 EXAM: CT CHEST LUNG NODULE SCREEN ING CLINIC AL INFORM ATION: Lung cancer screen ing. Histor y of smokin g for 55 pack years. Quit 2 years ago. TECHNI QUE: Multip le axial CT images of the chest were obtain ed withou t inject ion of IV contra st using the low-do se lung cancer screen ing protoc ol. COMPAR [place]: CT 018 NODULE SEARCH : No non-ca lcifie d lung nodule was identi fied in either lung. OTHER FINDIN GS: AIRWAY S AND LUNGS: Trache a, princi pal bronch i and major bronch ial branch es are patent and normal . Lungs are clear. MEDIAS TINUM: Limite d evalua tion due to absenc e of IV contra st. Calcif ied lymph nodes are seen in the medias tinum and al. Aorta shows athero sclero tic calcif icatio ns with normal calibe r. SVC, pulmon sarah arteri es, pulmon sarah veins and their major branch es and tribut mary are normal . Montelongo ry artery calcif icatio ns are noted. PLEURA AND CHEST WALL: No pleura l effusi on or mass. No chest wall abnorm ality. UPPER ABDOMI NAL ORGANS : Liver, gallbl adder, spleen , pancre as, adrena ls and upper visual ized portio ns of both kidney s are normal within the limits on interp retati on impose d by the absenc e of IV contra st. IMPRES FRANKI: 1. No suspic ious lung nodule s were identi fied during this screen ing CT chest. Contin ued screen ing with low-do se CT chest withou t contra st is recomm ended in one year's time. 2. Allowi ng for the limita tions impose d by the scanni ng techni que, no other signif icant abnorm ality was identi fied. 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 Change : No Change . Lung-R ADS Catego ry: Lung-R ADS catego ry 1 Lung-R ADS Modifi er: None Recall Interv al: Contin ue screen ing in 1 Year. Recomm ended Exam at Recall : CT Chest Lung Nodule Screen ing Interp reted By: Jo Karimi MD Electr onical ly Signed By: Jo Karimi MD on 019 3:57 PM [facility] [address] [place], [address], 08/11/2019 09:00:15 12/11/19 20 12/10/2019 CT, chest , w/o contr ast No observ ation record ed. [email or web address] [facility] [address], [place], [address], 12/12/2019 08:03:39 01/09/2012/10/2019 CT, angio gram, chest , w/ contr ast No observ ation record ed. BARCODE Not Available 2019 15:09:25 03/01/20 20 02/05/2020 XR, chest No observ ation record ed. [email or web address] [facility] [place] [address], [place], [address], 03/01/2020 11:39:02 04/06/20 20 02/16/2020 NM, thyro id scan No observ ation record ed. [email or web address] [facility] [address], [place], [address], 03/01/2020 11:38:53 03/01/20 20 02/17/2020 XR, chest No observ ation record ed. aerwin [facility] [address], [place], [address], 03/01/2020 10:40:17 04/21/20 22 04/20/2022 CT, chest , w/o contr ast [place] [facility] [address] [facility] [place] [address] Patien t Name: MANDA prasad : [phone] Pat[address] t Orderi ng Provid er: CARMEL ZACHARY EXAM DATE: 2021 EXAM: CT MED/TH OR HIGH RESOLU TION CLINIC AL INFORM ATION: Chroni c cough. Shortn ess breath . TECHNI QUE: Multip le axial CT images of the chest were obtain ed in supine positi on withou t inject ion of IV contra st. High resolu tion protoc ol was used. COMPAR WESTON: None. FINDIN GS: AIRWAY S AND LUNGS: Trache a, princi pal bronch i and major bronch ial branch es are patent and normal . Mild tracti on bronch iectas is is seen in both lung bases. Minima l inters titial septal thicke araceli is seen. There is no honeyc ombing . No lung nodule or mass is seen. MEDIAS TINUM: Limite d evalua tion due to absenc e of IV contra st. No medias tinal lympha denopa thy. Aorta shows athero sclero tic calcif icatio ns with normal calibe r. SVC, pulmon sarah arteri es, pulmon sarah veins and their major branch es and tribut mary are normal . Eviden ce of previo us CABG is noted. PLEURA AND CHEST WALL: No pleura l effusi on or mass. Degene rative change s of the thorac ic spine are presen t. UPPER ABDOMI NAL ORGANS : Liver, gallbl adder, spleen , pancre as, adrena ls and upper visual ized portio ns of both kidney s are normal within the limits on interp retati on impose d by the absenc e of IV contra st. IMPRES FRANKI: Minima l change s of bilate ral inters titial lung diseas e. No specif ic patter n has been identi fied. Interp reted By: Jo Karimi MD Electr onical ly Signed By: Jo Karimi MD on 022 12:16 PM [facility] [address] [place] [address], [address], 06/07/2022 11:27:33 06/23/20 22 06/23/2022 RF, esoph scott, w/ contr ast PO [place] [facility] [place] [address] Patien t Name: MANDA Brown Patien t : [phone] Patien t Orderi ng Provid er: CARMEL SHARMA EXAM DATE: 2021 EXAM: RF ESOPHA MARITZA CLINIC AL INFORM ATION: Dyspha cordelia TECHNI QUE: Multip le double contra st images of variou s parts of the esopha maritza, were obtain ed using high-d ensity barium suspen franki. This was follow ed by AP and latera l rapid sequen ce (3/sec ) images of the pharyn x and upper esopha maritza during swallo wing. The study was comple carlos by multip le prone images of the esopha maritza during swallo wing and assess ment for reflux . FINDIN GS: CERVIC AL ESOPHA MARITZA: Rapid sequen ce views of the upper esopha maritza show normal pharyn geal anatom y. No aspira tion is seen. THORAC O ABDOMI NAL ESOPHA MARITZA: Esopha geal outlin e is intact . There is a small hiatal hernia with nonobs tructi ve Gaurang ki's ring presen t. There is modera te JARRELL ESOPHA GEAL MOTILI TY: Esopha geal motili ty is normal with a normal perist altic stripp ing wave and second sarah perist altic waves. No tertia ry waves are noted. ASSESS MENT FOR REFLUX : Modera te. IMPRES FRANKI: Small hiatal hernia with modera te gastro esopha geal reflux . Interp reted By: Mika Ferrell MD Electr onical ly Signed By: Mika Ferrell MD on 022 11:45 AM aerwin [facility] [address], [address], 01/04/2023 18:20:17 Result Notes None recorded. Problems Name Problem SNOMED Code Status Onset Date Resolution Date Notes Provider Name and Address Organization Details Recorded Time Chronic obstructiv e pulmonary disease 05206359 Active 2016 CASTILLO SMALLWOOD MD [address] [place] [address], [phone] , [facility] 7 14:17:18 Gastroesop hageal reflux disease without esophagiti s 538393140 Active 2021 YAA WAYNE MD [address] [place] [address], [phone] , [facility] 2 15:23:11 Asthma-chr onic obstructiv e pulmonary disease overlap syndrome 4213869530137 9107 Active 2021 YAA WAYNE MD [address] [place] [address], [phone] , [facility] 15:23:14 Problem Notes None recorded. Procedures Surgical History Date Name Laterality Status Provider Name and Address Organization Details Recorded Time 07/18/20 22 Allergy Skin Test - Enviromental completed YAA WAYNE MD [address] [place] [address], [phone], [facility] 07/18/2022 19:38:28 06/21/20 22 Demonstration Aerosol/Generator/ Nebulizer/Opticham kennedi completed Karla Jackson [facility] 06/21/2022 10:39:12 06/21/20 22 Spirometry with Bronchodilator completed Karla Jackson [facility] 06/21/2022 10:21:28 02/25/20 20 placement of stent completed Tania Soto [facility] 04/20/2022 13:09:59 12/11/19 20 Spirometry completed CARMEL SHARMA PA-C [address] [place], [address], [facility] 12/11/2019 17:06:06 07/23/20 18 Diffusion Capacity completed CARMEL SHARMA PA-C [address] [place], [address], [facility] 07/23/2018 14:45:26 07/23/20 18 Lung Volumes, Plethysmography completed CARMEL SHARMA PA-C [address] [place], [address], [facility] 07/23/2018 14:45:35 07/23/20 18 Spirometry completed CARMEL SHARMA PA-C [address] [place], [address], [facility] 07/23/2018 14:45:48 06/12/20 18 Nebulizer Treatment completed Naya Garcia [facility] 06/12/2018 13:08:19 04/23/20 18 Nebulizer Treatment completed Yvrose Samano [facility] 04/23/2018 10:17:05 09/11/20 17 Nebulizer Treatment completed CASTILLO SMALLWOOD MD [address] [place], [address], [facility] 09/11/2017 14:28:29 08/27/20 17 Nebulizer Treatment completed Yvrose Samano [facility] 08/27/2017 11:10:15 CABG completed Yvrose Samano [facility] 08/27/2017 10:39:41 Total Hysterectomy completed Ginny Samano [facility] 08/27/2017 10:39:46 Knee Surgery completed Yvrose Samano [facility] 08/27/2017 10:39:51 Imaging Results None recorded. Procedure Notes None recorded. Medical Equipment None Reported. Allergies Allergen ID Allergen Name Allergen Category Reaction Reaction Severity Criticality Documentation Date Start Date Code Code System Note Provider Name and Address Organization Details Recorded Time 686294 Benadryl medicatio n itching Not available Not available 10/20/2016200845 7 RxNorm Yvrose Samano [facility] 7 10:50:26 381060 Product containin g penicilli n (product) medicatio n rash Not available Not available 10/20/20162008 93572 8001 SNOMED Yvrose Samano [facility] 7 10:50:53 161454 codeine medicatio n vomiting Not available Not available 10/20/20162008 2670 RxNorm Yvrose Samano [facility] 7 10:50:46 974779 Valium medicatio n other Not available Not available 10/20/20162008 2 RxNorm MOOD IRAHETA ES Yvrose Samano [facility] 7 10:50:44 Medications Name Sig Start Date Stop Date Status Note LastModified by Organization Details LastModified Time Singulair 10 mg tablet Daily 12/11 completed Frequenc y: daily;Me dication Descript ion: monteluk ast; Dosage:1 ; Route:or al; refills: 0 Not Available Not Available Not Available atorvasta tin 40 mg tablet Take 2 tablets every day by oral route. active increase d to 80 mg Not Available Not Available Not Available sennoside s 8.6 mg tablet Take 2 tablets every day by oral route. active Not Available Not Available No t Available doxycycli ne hyclate 100 mg capsule Take 1 capsule twice a day by oral route as needed. 04/23 completed Not Available Not Available Not Available cefuroxim e axetil 250 mg tablet Take 1 tablet every 12 hours by oral route for 10 days. 08/07 completed Not Available Not Available Not Available ipratropi um 0.5 mg-albute rol 3 mg (2.5 mg base)/3 mL nebulizat ion soln Inhale 3 mL 4 times a day by nebuliza tion route for 30 days. 2021 active [facility][id number] Not Available Not Available Not Available albuterol sulfate 2.5 mg/3 mL (0.083 %) solution for nebulizat ion Inhale 3 mL 4 times a day by nebuliza tion route as needed for 30 days. 04/20 completed Not Available Not Available Not Available cetirizin e 10 mg tablet Take 1 tablet every day by oral route as needed for 30 days. 07/23 completed Not Available Not Available Not Available aspirin 325 mg tablet Daily 08/07 completed Duration : 30 days;Tigre quency: daily;Me dication Descript ion: aspirin; Dosage:1 ; Route:or al; refills: 0 Not Available Not Available Not Available cilostazo l 50 mg tablet Two times a day 08/27 completed Frequenc y: bid;Medi cation Descript ion: cilostaz ol; Route:or al; refills: 0 Not Available Not Available Not Available amiodaron e 200 mg tablet Take 2 tablets every day by oral route. 12/11 completed Not Available Not Available Not Available hydrochlo rothiazid e 50 mg tablet 12/11 completed Duration : 10 days;Med ication Descript ion: hydrochl orothiaz nida; Route:or al; refills: 0; Quantity :30 tablet Not Available Not Available Not Available Lortab 7.5 mg-500 mg tablet Three times a day 08/27 completed Frequenc y: tid;Alt Frequenc y: prn;Medi cation Descript ion: acetamin ophen-hy drocodon e; Dosage:1 ; Route:or al; refills: 0; Quantity :90 tablet Not Available Not Available Not Available prednison e 20 mg tablet take 2 tablets daily x 7 days then 1 tablet daily x 1 week 2021 active Not Available Not Available Not Avai lable clopidogr el 75 mg tablet Take 1 tablet every day by oral route. active Not Available Not Available No t Available omeprazol e 40 mg capsule,d elayed release TAKE ONE CAPSULE BY MOUTH AT BEDTIME 2020 active Not Available Not Available Not Avai lable prednison e 10 mg tablets in a dose pack Take 1 dose pk by oral route for 12 days. 07/23 completed Not Available Not Available Not Available Niaspan 1,000 mg tablet,ex tended release Bedtime 08/27 completed Frequenc y: hs;Medic ation Descript ion: niacin; Dosage:1 ; Route:or al; refills: 0 Not Available Not Available Not Available Tessalon Perles 100 mg capsule Take 1 capsule 3 times a day by oral route as needed. 04/23 completed Not Available Not Available Not Available Zanaflex 4 mg tablet Three times a day 08/27 completed Frequenc y: tid;Medi cation Descript ion: tizanidi ne; Dosage:1 ; Route:or al; refills: 12; Quantity :60 tablet Not Available Not Available Not Available Lortab 10 mg-500 mg tablet Every four to six hours 08/27 completed Frequenc y: q4-q6h;A lt Frequenc y: prn;Medi cation Descript ion: acetamin ophen-hy drocodon e; Dosage:1 ; Route:or al; refills: 0 Not Available Not Available Not Available losartan 25 mg tablet Take 1 tablet every day by oral route. active Not Available Not Available No t Available metoprolo l tartrate 50 mg tablet Two times a day 12/11 completed Frequenc y: bid;Medi cation Descript ion: metoprol ol; Route:or al; refills: 0 Not Available Not Available Not Available Effexor 75 mg tablet Two times a day 08/27 completed Frequenc y: bid;Medi cation Descript ion: venlafax ine; Route:or al; refills: 0; Quantity :60 tablet Not Available Not Available Not Available Requip 2 mg tablet Every night at bedtime 2010 active Frequenc y: qhs;Medi cation Descript ion: ropiniro le; Route:or al; refills: 0; Quantity :3 tablet Not Available Not Available Not Available senna 187 mg tablet Every night at bedtime active Frequenc y: qhs;Medi cation Descript ion: senna; Route:or al; refills: 0; Quantity :2 tablet Not Available Not Available Not Available Levaquin 500 mg tablet Take 1 tablet every 24 hours by oral route for 10 days. 04/20 completed Not Available Not Available Not Available epinephri ne 0.3 mg/0.3 mL injection , auto-inje ctor Take 1 auto by injectio n route as needed. 2021 active Not Available Not Available Not Avai lable cefdinir 300 mg capsule Take 1 capsule twice a day by oral route with meals for 10 days. 12/11 completed Not Available Not Available Not Available doxycycli ne hyclate 100 mg tablet Take 1 tablet twice a day by oral route with meals for 10 days. 06/12 completed Not Available Not Available Not Available Ventolin HFA 90 mcg/actua tion aerosol inhaler Inhale 2 puffs every 4 hours by inhalati on route as needed for 30 days. 2018 active Not Available Not Available Not Avai lable escitalop koffi 20 mg tablet Take 1 tablet every day by oral route. active Not Available Not Available No t Available albuterol sulfate 07/23 completed Not Available Not Available Not Available temazepam 15 mg qhs active Medicati on Descript ion: temazepa m; Route:or al; refills: 0 Not Available Not Available Not Available hydrochlo rothiazid e 12.5 mg tablet Take 1 tablet every day by oral route. active Not Available Not Available No t Available Symbicort 08/07 completed Not Available Not Available Not Available Effient 08/27 completed Medicati on Descript ion: prasugre l; Route:or al; refills: 0 Not Available Not Available Not Available Daliresp 500 mcg tablet Take 1 tablet every day by oral route. 01/30 completed Not Available Not Available Not Available Combivent Respimat 20 mcg-100 mcg/actua tion solution for inhalatio n Inhale 1 puff 4 times a day by inhalati on route. active Not Available Not Available No t Available apixaban 5 mg tablet Take 1 tablet twice a day by oral route. active Not Available Not Available No t Available Incruse Ellipta 62.5 mcg/actua tion powder for inhalatio n Inhale 1 puff every day by inhalati on route for 30 days. 01/30 completed Not Available Not Available Not Available Trelegy Ellipta 100 mcg-62.5 mcg-25 mcg powder for inhalatio n Inhale 1 puff every day by inhalati on route for 30 days. 04/20 completed Not Available Not Available Not Available Xolair 150 mg/mL subcutane ous syringe Inject by subcutan eous route. active PA approved Auth#[id number] approved : 08/24/22- further notice Not Available Not Available Not Available AOTMPpher e 160 mcg-9mcg- 4.8mcg/ac tuation HFA aerosol inhaler Inhale 2 puffs twice a day by inhalati on route. active Not Available Not Available No t Available Vitals Date Recorded Body height Body mass index (BMI) Body weight Heart rate Oxygen saturation Oxygen saturation in Arterial blood by Pulse oximetry Respiratory rate Systolic blood pressure Diastolic blood pressure Provider Name and Address Organization Details Last Updated DateTime 0 162.56 cm 31.1 kg/m2 16459.2 2 g 70 /min 94 % 94 % 16 /min 122 mm[Hg] 80 mm[Hg] Elizabeth Aldana [facility] 0 14:55:13 Date Recorded Body weight Oxygen saturation Oxygen saturation in Arterial blood by Pulse oximetry Heart rate Systolic blood pressure Diastolic blood pressure Provider Name and Address Organization Details Last Updated DateTime 2 20061.7 7 g 96 % 96 % 73 /min 131 mm[Hg] 80 mm[Hg] Tania Charles [facility] 2 13:11:48 Date Recorded Body weight Heart rate Oxygen saturation Oxygen saturation in Arterial blood by Pulse oximetry Systolic blood pressure Diastolic blood pressure Provider Name and Address Organization Details Last Updated DateTime 2 67255.1 8 g 68 /min 97 % 97 % 124 mm[Hg] 72 mm[Hg] Le Joees [facility] 2 10:03:18 Date Recorded Body height Body mass index (BMI) Body weight Systolic blood pressure Diastolic blood pressure Provider Name and Address Organization Details Last Updated DateTime 07/18/2022 162.56 cm 31.8 kg/m2 53082.59 g 128 mm[Hg] 80 mm[Hg] Sabi Ambrocio [facility] 2 15:02:40 Date Recorded Body height Body mass index (BMI) Body weight Respiratory rate Heart rate Oxygen saturation Oxygen saturation in Arterial blood by Pulse oximetry Systolic blood pressure Diastolic blood pressure Provider Name and Address Organization Details Last Updated DateTime 9 162.56 cm 31.8 kg/m2 20778.5 9 g 16 /min 60 /min 94 % 94 % 122 mm[Hg] 82 mm[Hg] Gricelda Bales [facility] 9 15:06:52 Social History Question Answer Notes LastModified by Organizat ion Details LastModified Time Tobacco Smoking Status Former Smoker quit 2016 Yvrose Samano [facility] 08/27/2017 10:53:20 Exposure To Fumes No Information not available 06/21/2022 Exposure To Dust No Information not available 06/21/2022 Exposure To Smoke No Information not available 06/21/2022 Exposure To Asbestos No Information not available 06/21/2022 Exposure To Animals Yes Information not available 06/21/2022 Exposure To Other Toxic Chemicals No Information not available 06/21/2022 Marijuana No Information no t available 06/21/2022 What Was The Date Of Your Most Recent Tobacco Screening? 06/21/2022 Information not available 06/21/2022 How Much Tobacco Do You Smoke? 2 PPD [email or web address] Information not available 07/23/2018 How Many Years Have You Smoked Tobacco? 50 [email or web address] Information not available 07/23/2018 Have You Recently Traveled Abroad? No Information not available 06/21/2022 Sex: Unknown Functional Status Question Answer Note LastModified by Organizat ion Details LastModified Time Do you use any illicit or recreational drugs? No Information not available 06/21/2022 Do you or have you ever used any other forms of tobacco or nicotine? No [email or web address] Information not available 04/20/2022 What is your level of alcohol consumption? Occasional [email or web address] Information not available 07/23/2018 Have you been exposed to chemicals or toxins? No Information not available 06/21/2022 What is your occupation? RETIRED [email or web address] Information not available 07/23/2018 What is your exercise level? Occasional Information not available 06/21/2022 Mental Status None recorded. Family History Relationship Description Onset Age of this Age Resolved Age Notes LastModified by Organization Details LastModified Time Unspecified Relation Family history of malignant neoplasm [facility] Not available 2016 10:39:01 Unspecified Relation Diabetes mellitus [facility] Not available 2016 10:39:08 Unspecified Relation Alcoholism [facility] Not available 2016 10:39:13 Unspecified Relation Cerebrovascu lar accident [facility] Not available 12/2016 10:39:23 Unspecified Relation Hypertensive disorder [facility] Not available 2016 10:39:28 Medical History Condition Response Anxiety Disorder Y Atrial Fibrillation Y Arthritis Y GERD/Reflux Y High Cholesterol Y Hypertension Y COPD Y Asthma Y Gynecological HistoryNo gynecological history recorded. Obstetrics History GPAL:G 0 P 0 0 0 0 Immunizations Vaccine Type Date Status Note Provider Nam e and Address Organization Details Recorded Time Influenza, high-dose, trivalent, PF 12/11/2019 completed Not Available [facility] 2019 02:48:26 Influenza, high-dose, trivalent, PF 08/22/2018 completed Not Available [facility] 2019 02:54:10 Past Encounters Encounter ID Performer Location Encounter Start Date Encounter Closed Date Diagnosis/Indication Diagnosis SNOMED-CT Code Diagnosis ICD10 Code Diagnosis Note [id number] FARHAD MCFARLAND PA-C [facility] [address] [place], [place] [id number] 08/27/2017 10:02:16 08/27/2017 11:32:44 Overweight 414547608 E66.3 Acute exac erbation of chronic obstructive pulmonary disease 293523821 J44.1 [id number] CASTILLO SMALLWOOD MD [facility] [address] [place] [address] 09/11/2017 12:58:55 09/11/2017 15:35:31 Cough 36174764 R05 Acute sinusitis 79340276 J01.90 Acute bronchitis 7911310 2 J20.9 Chronic ob structive pulmonary disease 32026465 J44.9 [id number] FARHAD MCFARLAND PA-C [facility] [address] [place] [address] 04/23/2018 08:55:52 04/23/2018 10:46:37 Acute exacerbation of chronic obstructive pulmonary disease 765373850 J44.1 [id number] FARHAD MCFARLAND PA-C [facility] [address] [place] [address] 06/12/2018 12:04:54 06/12/2018 13:37:59 Acute exacerbation of chronic obstructive pulmonary disease 745946545 J44.1 Contusion of rib 0878938 06 S20.20XA [id number] CARMEL SHARMA PA-C PULMONARY [address] [facility], [address] [place] [address] 07/23/2018 08:26:14 07/23/2018 16:37:30 Chronic bronchitis 05983663 J42 Symptoms consistent with chronic bronchitis . Needs regular use of anticholin ergic inhaler. Recently started Incruse. Will do trial of Trelegy Ellipta at one inhalation daily to see if symptoms improve. Understand s to discontinu e Incruse and Symbicort while using Trelegy Ellipta. Continue Daliresp 500 mcg daily. Recommend to use Albuterol as needed. Sent refills for nebulizer. Exercise pulse oximetry in office shows patient does not require portable oxygen at this time. Continue 2L/min of oxygen at night. Will need Prevnar 13 and Pneumovax. Requested immunizati on records. History of smoking 2708904 96600 1732299 Z87.891 Patient is a candidate for CT chest Lung Cancer Screening due to smoking history. Patient is currently asymptomat ic with no signs or symptoms of lung cancer. Patient did participat e in shared decision making. We discussed the risks vs. benefits of CT Chest Lung Cancer Screening in detail. [id number] CARMEL SHARMA PA-C PULMONARY [address] [place] [address], [address] [place] [address] 08/22/2018 10:21:11 08/22/2018 16:25:55 Chronic bronchitis 91600311 J42 symptoms are currently improved. I did collect a sputum culture after her last visit which showed normal respirator y edwina. If symptoms develop again, I would like to order a repeat routine sputum culture and AFB x 3. these will be sent to her local hospital with needed. She will continue Trelegy Ellipta 1 puff daily. No signs of acute infection today. Will need Prevnar 13 and Pneumovax. patient is going to check with Winnie to see which pneumonia shot she has received. Influenza vaccine given today. she will be due for CT chest lung cancer screening again next year. Active or passive immunization 048159021 Z23 [id number] CARMEL SHARMA PA-C PULMONARY [address] [facility], [address] [place] [address] 01/30/2019 12:55:45 01/30/2019 14:35:38 History of smoking [id number] 4213644 Z87.891 Patient is a candidate for CT chest Lung Cancer Screening due to smoking history. Patient is currently asymptomat ic with no signs or symptoms of lung cancer. Patient did participat e in shared decision making. We discussed the risks vs. benefits of CT Chest Lung Cancer Screening in detail. Chronic bronchitis 99936 004 J42 respirator y symptoms have been well controlled on Trelegy Ellipta. She will continue this one inhalation daily. Use albuterol as needed. Currently no signs of acute infection. [id number] CRAMEL SHARMA PA-C PULMONARY [address] [place] [address], [address] [place] [address] 1 08/07/2019 14:58:30 08/08/2019 08:10:40 Chronic bronchitis 41765236 J42 respirator y symptoms have been well controlled on Trelegy Ellipta. She will continue this one inhalation daily. Use albuterol as needed. Currently no signs of acute infection. Chronic ob structive pulmonary disease 64124333 J44.9 I prescribed her duo nebs to use in her nebulizer as needed. These were previously denied by insurance. I resent these again. Acute lowe r respiratory tract infection 731626430 J22 patient will go ahead and start Omnicef for respirator y tract infection. She will start prednisone if no improvemen t. patient will receive influenza vaccine at home after her acute infection has resolved. She will call if there is any worsening of symptoms. Former hea vy tobacco smoker [id number] [address] chest lung cancer screening will be repeated in 1 year. [id number] CARMEL SHARMA PA-C PULMONARY [address] [facility], [address] [place] [address] 1 12/11/2019 14:17:23 12/12/2019 09:30:56 Chronic obstructive pulmonary disease 04888397 J44.9 I did not make any changes in her regular medication regimen. Administra tion of influenza vaccine 41083025 Z23 Pneumonia 502386504 J18. 9 I prescribed her Levaquin for 10 days and 2 weeks of prednisone . Spirometry also shows worsening. we will review images when scanned into our radiology system. I do question that she may be aspirating with bilateral lower lobe pneumonia. she denies dysphagia but does have a small hiatal hernia. [id number] CARMEL SHARMA PA-C PULMONARY [address] [facility], [address] [place] [phone] 04/20/2022 10:32:27 04/20/2022 14:40:53 Persistent cough 655083287 R05.3 due to her worsening cough, I ordered an HRCT of chest for further evaluation . She is having difficulty coughing up mucus. she does not have consistent mucus production therefore I did not order sputum cultures. she has had frequent exacerbati ons recently. Chronic ob structive pulmonary disease 36445546 J44.9 recommend to increase Breztri to 2 inhalation s twice daily. continue Combivent and albuterol nebs as needed. Former hea vy tobacco smoker [id number] 96570 Z87.891 patient quit smoking in 2017. [id number] CARMEL SHARMA PA-C PULMONARY [address] [facility], [address] [place] [address] 06/21/2022 09:39:28 06/22/2022 07:06:25 Chronic obstructive pulmonary disease 47793715 J44.9 continue Breztri 2 inhalation s twice daily. continue Combivent and albuterol nebs as needed. will check IgE and CBC with diff, appears to be asthmatic component to this. She may benefit from a biologic. Former hea vy tobacco smoker [id number] 24255 Z87.891 patient quit smoking in 2017. Bronchiectasis 85579632 J47.9 continue flutter valve, nebs. Will consider vest. Persistent cough 8957825 02 R05.3 Start Prednisone x 2 weeks. I ordered a barium swallow. I suspect she may be aspirating . [id number] YAA WAYNE MD [facility] [address] [facility] ,[address] [place] [address] 07/18/2022 14:23:29 07/20/2022 11:26:43 Asthma-chronic obstructive pulmonary disease overlap syndrome 0487237860 3236736 J44.9 Gastroesop hageal reflux disease without esophagitis 467442633 K21.9 Obesity 147227405 E66.9 Health Concerns Section Related Observation LastModified by Organization Detai ls LastModified Time None Recorded Concern Status LastModified by Organization Details LastModified Time None Recorded Advance Directives Directive None Recorded Payers Insurance Date Sequence Insurance Name Policy Number Policy Kuo Covered Member ID Kuo Member ID Guarantor Name 01/30/2018 2 UNSPECIFIED REMIT PAYOR Supriya Malini Andres 11/13/2022 2 [employer] [facility] (MEDICAID HMO) Supriya Nayak Mckenna [id number] Supriya Andres 10/29/2017 2 UNSPECIFIED REMIT PAYOR Supriya Andres 11/13/2022 2 [employer] [facility] (MEDICAID REPLACEMENT - HMO) [id number] Supriya Malini Andres [id number] Supriya Andres 11/13/2022 1 [employer] (MEDICARE REPLACEMENT/AD VANTAGE - PPO) Supriya Andres [id number] Supriya Andres 11/13/2022 2 MEDICAID-[facility] HEALTH CHOICES - FFS/TRADITIONA L Supriya Malini Andres [id number] Surpiya Malini Andres 11/13/2022 1 [place] Supriya Nayak Mckenna [id number] Supriya Andres Notes Date Note Type Note Provider Name and Address Organization Details Recorded Time 08/07/2019 text/html 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 She Is Currently Treated with Trelegy Ellipta. over the last 2 days, she has had increased cough, nasal congestion, wheezing, and dyspnea. Sputum is mainly white at this time. No fever or chills. Patient is a 67-[id number] smoking history. On average, she smoked one pack of cigarettes a day. She quit smoking approximately [address] chest lung cancer screening shows no suspicious nodules today. 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 She Is Currently Treated with Trelegy Ellipta. She recently had a cardiac ablation in October. She began feeling more short of breath on exertion after getting discharged from the hospital. She did not have an increased cough. Currently no sputum production or hemoptysis. No fever or chills. She does deny any chest discomfort. Her PCP ordered a CT scan of her chest yesterday that showed an infiltrate in her right lower lobe with air bronchograms. An area in her left lower lobe consistent with pneumonitis was also noted. she is currently not smoking cigarettes but he is vaping. CARMEL SHARMA PA-C [address] [place], [phone], [facility] 12/11/2019 17:06:59 04/20/2022 text/html Patient Has mains and service supervisor italo bronchitis. She Is currently Breztri. she has been treated for at least 2 respiratory tract infections this year by her PCP. She reports having a normal chest x-ray at her PCPs office. She feels that her cough is worsened over the last few months. She has difficulty coughing up mucus. At times, she is yellow sputum. No hemoptysis. she does report occasional wheezing. She is using Breztri once daily. she has not smoked cigarettes since 2017. CARMEL SHARMA PA-C [address] [place], [phone], [facility] 04/20/2022 14:21:55 06/21/2022 text/html Patient has mains and service supervisor italo cough. HRCT chest in March showed mild bronchiectasis. She Is currently Breztri. she is a former smoker. she has not smoked cigarettes since 2017. She is using a flutter valve and nebulizer. She is still having difficulty coughing up sputum. When she does, it is usually white in color. No hemoptysis. She feels that has gradually worsened. She is having frequent wheezing. Shortness of breath is relieved with albuterol. No fever or chills. Has increased cough when around strong odors or perfumes. CARMEL SHARMA PA-C [address] [place], [phone], [facility] 06/21/2022 16:33:08 07/18/2022 text/html Ms Andres is a 71yoF with COPD who follows with Pulmonary. She presents today for new patient visit. Since October her COPD has been poorly controlled. She has had multiple episodes of coughing and has been on multiple rounds of steroids and antibiotics. She does think that her coughing is finally improving somewhat but it has been a very slow process. Her last round of prednisone was 1 to 2 weeks ago. She reports that many years ago she was diagnosed with asthma. She has been taking Breztri and Combivent as her maintenance inhalers with albuterol as needed for coughing and shortness of breath. She will use breathing treatments whenever her symptoms are worse and she also has a flutter valve that she uses. She has a significant history of tobacco use with cessation 5 years ago. 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 Her uncontrolled coughing has also been exacerbating some back pain that she has. She denies having seasonal allergies or ocular symptoms. Social history -she has multiple great-grandchildren and tries to be very active with them. She had just joined a gym prior to hurting her back. He does have GERD and recently had an esophageal motility study which showed small hiatal hernia with moderate gastroesophageal reflux. YAA WAYNE MD [facility] [place], [phone], [place] - [facility] 07/19/2022 16:04:41 OBGyn Episode No OBEpisode recorded.
--- OUTSIDE RECORDS SUMMARY | 2025-05-01 11:59 | XMS_ITS | Clinical Summary ---
Author Organization [facility] [place] Address [address] [phone] Phone Care Team Providers Care Head Of Advertising Name Role Phone Unavailable Primary Care Provider [...] Date Last Done Comments Wellness Exam Medicare 1953 Hepatitis C Screening 1969 DTaP/TDaP/Td (1 - Tdap) 1970 Pneumococcal Vaccine 50+ (1 of 2 - PCV) 1970 Breast Cancer Screening 1991 Cologuard 1996 Colon Cancer Screening 1996 Colonoscopy 1996 FIT 1996 Sigmoidoscopy 1996 Virtual Colonography 1996 Zoster (1 of 2) 2001 RSV or 60+ (1 - Ris k 60-74 years 1-dose series) 2011 Bone Density Screening 2016 COVID-19 Vaccine (1 - 2023-2 5 season) 2024 Influenza Vaccine (Season Ended) 2025 08/22/20 18 Hepatitis B Vaccine Aged Out No longe r eligible based on patient's age to complete this topic Meningococcal B Vaccine Aged Out No l onger eligible based on patient's age to complete this topic Insurance [employer] [facility] [place] [address] MEDICARE [place] PART A AND B
--- OUTSIDE RECORDS SUMMARY | 2025-05-01 11:59 | XMS_ITS | Encounter Summary ---
Author Organization [employer] Address [address] [place] [id number] Care Team Providers Care Virtual Assistant Name Role Phone Unavailable Primary Care Provider Unavailabl e Encounter Details Date Type Department Care Team (Late st Contact Info) Description 03/17/2019 Transcribed Document [facility] Family Medicine [address] [place] [address] ProviderCarlitos MD [address] [place] [address] Social History Tobacco Use Types [...] CC2: Dr. Marily Lynn Electronically signed by [facility], [facility] Conversion Crime Investigator Special Agent Cerner at 03/16/2023 2:48 PM CDT documented in this encounter Plan of Treatment Not on file documented as of this encounter Visit Diagnoses Not on filedocumented in this encounter
--- NOTE | 2025-05-01 12:16 | PC.NURSE ---
called RT for VBG sent to lab.
--- NOTE | 2025-05-01 12:20 | CT_ITS ---
FINAL REPORT TECHNIQUE: Axial imaging of the chest is obtained after the administration of contrast. 3-D MIP reformatted images were also obtained and reviewed per PE protocol. This study was performed with techniques to keep radiation doses as low as reasonably achievable (ALARA). Individualized dose reduction techniques using automated exposure control or adjustment of mA and/or kV according to the patient's size were employed. CLINICAL HISTORY: short of breath COMPARISON: Prior CTA of the chest, 07/11/2022, LDCT of the chest, 01/23/2025 FINDINGS: The pulmonary arteries are well filled. There is no evidence of pulmonary embolus. There is no aortic dissection. Heart size is normal. There is an ascending aortic aneurysm present, measuring 42 mm in diameter, was previously 42 mm on 01/23/2025, stable. There is no axillary lymphadenopathy. There are enlarged mediastinal nodes, new since the prior exam. A right paratracheal node measures 33 mm in diameter, was previously less than 10 mm. No hilar adenopathy is noted. There is also new subcarinal adenopathy. There are new bilateral lower lobe ground glass and airspace opacities noted, more prominent on the right than on the left, with small associated nodules. There are also new bilateral upper lobe ground glass opacities, favor pneumonia. There is no pleural or pericardial effusion. Limited evaluation of the upper abdomen is without acute abnormality. No acute osseous abnormality. IMPRESSION: No evidence of pulmonary embolism or aortic dissection. Ascending aortic aneurysm is stable when compared to the prior exam. Bilateral infiltrates, ground glass and airspace, with small associated nodules in the lower lobes, new since the prior exam, favor pneumonia. There is also increased mediastinal adenopathy since the prior exam, likely reactive adenopathy. Reviewed, Interpreted and Dictated by Marisabel Lawson MD Transcribed by Antonia Sepulveda Authenticated and [facility]
--- NOTE | 2025-05-01 12:23 | [facility].EDCP ---
Discharge Plan Disposition Patient Disposition: Admitted Prescriptions Prescriptions: No Action cetirizine 10 mg tablet 10 mg PO ipratropium-albuterol 0.5 mg-3 mg(2.5 mg base)/3 mL solution for nebulization 3 ml inhalation Q8H 90 Days Qty: 540 3RF budesonide [Pulmicort] 0.5 mg/2 mL suspension for nebulization 0.5 mg inhalation BID 90 Days Qty: 360 2RF ropinirole 1 mg tablet 3 mg PO HS trazodone 50 mg tablet 50 mg PO HS bisoprolol fumarate 5 mg tablet 5 mg PO DAILY famotidine 20 mg tablet 20 mg PO BID temazepam 15 mg capsule 15 mg PO HS montelukast 10 mg tablet 10 mg PO PM albuterol sulfate 90 mcg/actuation HFA aerosol inhaler 2 inh INHALATION Q4HP PRN (Reason: Shortness of breath) escitalopram oxalate 20 mg tablet 20 mg PO DAILY Eliquis 5 mg tablet 5 mg PO BID Gemtesa 75 mg tablet 75 mg PO DAILY Fasenra Pen 30 mg/mL auto-injector 30 mg SQ Q56D fluticasone propionate 50 mcg/actuation spray,suspension 2 spray INTRANASAL DAILY Repatha SureClick 140 mg/mL pen injector 140 mg SQ Q14D clopidogrel [Plavix] 75 mg Tablet 75 mg PO DAILY Qty: 30 6RF pantoprazole [Protonix] 40 mg tablet,delayed release (DR/EC) 40 mg PO DAILY Qty: 30 0RF Rx Instructions: Take on empty stomach. Referrals Follow up/Referrals: Michael Baez MD [Primary Care Provider, Internal Medicine] - See instructions Clinical Impressions Clinical Impression: Community acquired pneumonia Stand Alone Forms Stand Alone Forms: Transfer Record - ED Print Language Print Language: Uzbek Discharge ED Provider: Brianna Keith HPI <Kenyatta Bach (ED), HEAD ANIMAL TRAINER - Last Filed: 05/01/25 19:29> General Chief Complaint: Shortness of Breath/Dyspnea Stated Complaint: SOA, Weakness, trouble walking Time Seen by Provider: 05/01/25 11:56 Mode of Arrival: Wheelchair Source of Information: Patient Description of Symptoms (Recalled from ER Triage Doc. by RN): pt c/o SOA, lethargy and allergies x1wk. pt states over the last three days she has developed chest tightness that is 7/10. pt states she has been lethargic, weak and unsteady. pt has intermittantly had a productive cough with clear sputum. History of Present Illness HPI narrative: 74-year-old female presents to the ED today for complaint of shortness of breath that is exertional that started 1 week ago. She initially started thinking that she had a cold. She started with a cough then started with some chest pain and shoulder pain that went down her arm. She then started with no appetite and wanted to sleep all the time. She said that she went to have cataract surgery on her left eye then went back this Sunday if to have cataract surgery on her right eye and her temp was elevated and her blood pressure was 185/117. She states her blood pressure usually is not that elevated. They decided not to do the cataract surgery. She states that she was trembling, had chills, shaking, fever all yesterday. She has nausea but no vomiting. She has had no food or meds today she had a little bit of tea. She also states that she has had a headache each day for a week. She does use nebs at home and oxygen as needed. She has history of COPD, asthma, heart disease, has had a triple bypass in 2002 with many stents placed in the past. She has had bilateral knee surgery and a hysterectomy. 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 Related Data Home Medications ?Medication ?Instructions ?Recorded ?Confirmed albuterol sulfate 90 mcg/actuation 2 inh inhalation Q4HP PRN 10/12/24 01/30/25 aerosol inhaler Shortness of breath apixaban 5 mg tablet (Eliquis) 5 mg PO BID 10/12/24 01/30/25 bisoprolol fumarate 5 mg tablet 5 mg PO DAILY 10/12/24 01/30/25 escitalopram oxalate 20 mg tablet 20 mg PO DAILY 10/12/24 01/30/25 famotidine 20 mg tablet 20 mg PO BID 10/12/24 01/30/25 montelukast 10 mg tablet 10 mg PO PM 10/12/24 01/30/25 ropinirole 1 mg tablet 3 mg PO HS 10/12/24 01/30/25 temazepam 15 mg capsule 15 mg PO HS 10/12/24 01/30/25 trazodone 50 mg tablet 50 mg PO HS 10/12/24 01/30/25 vibegron 75 mg tablet (Gemtesa) 75 mg PO DAILY 10/12/24 01/30/25 benralizumab 30 mg/mL subcutaneous 30 mg SQ Q56D 10/13/24 01/30/25 auto-injector (Fasenra Pen) evolocumab 140 mg/mL subcutaneous 140 mg SQ Q14D 10/13/24 01/30/25 pen injector (Repatha SureClick) fluticasone propionate 50 2 spray intranasal DAILY 10/13/24 01/30/25 mcg/actuation nasal spray,suspension cetirizine 10 mg tablet 10 mg PO 01/30/25 01/30/25 Previous Rx's ?Medication ?Instructions ?Recorded clopidogrel 75 mg tablet (Plavix) 75 mg PO DAILY #30 tabs 10/31/24 pantoprazole 40 mg tablet,delayed 40 mg PO DAILY #30 tabs 01/11/25 release (Protonix) ipratropium 0.5 mg-albuterol 3 mg 3 ml inhalation Q8H 3 months #540 01/30/25 (2.5 mg base)/3 mL nebulization mL soln budesonide 0.5 mg/2 mL suspension 0.5 mg (2 mL) inhalation BID 90 04/21/25 for nebulization (Pulmicort) days #360 mL Allergies Allergy/AdvReac Type Severity Reaction Status Date / Time codeine Allergy Mild Gastrointestinal Verified 05/01/25 12:06 Upset diphenhydramine (From Allergy Mild Flushing Verified 05/01/25 12:06 Benadryl) Penicillins Allergy Mild Hives Verified 05/01/25 12:06 hydromorphone (From Dilaudid) Allergy Agitated Verified 05/01/25 12:06 lorazepam (From Ativan) Allergy Anxiety Verified 05/01/25 12:06 isosorbide AdvReac Intermediate Severe CHENEY Verified 05/01/25 12:06 diazepam (From Valium) AdvReac Mild Agitated Verified 05/01/25 12:06 hydrocodone AdvReac Hives Verified 05/01/25 12:06 PFSH <Kenyatta Bach (ED), HEAD ANIMAL TRAINER - Last Filed: 05/01/25 19:29> [facility] Disclaimer: The information contained in this section may have been updated after the patient was seen, as this information can be updated by other users. Medical History Unstable angina Chest pain Atypical angina Abnormal electrocardiogram [ECG] [EKG] Chest pain Acute hypoxemic respiratory failure Hypertension, uncontrolled Asthma exacerbation Pneumonia Dyspnea on exertion Encounter for screening for malignant neoplasm of lung in current smoker with 30 pack year history or greater COPD exacerbation Elevated brain natriuretic peptide (BNP) level Atrial fibrillation Acute exacerbation of chronic obstructive airways disease Respiratory failure with hypoxia SOB (shortness of breath) History of left heart catheterization Abnormal echocardiogram HFrEF (heart failure with reduced ejection fraction) Peripheral eosinophilia Severe persistent asthma Stopped smoking with greater than 30 pack year history Eosinophilia (Unknown) Allergic rhinitis Asthma History of smoking 30 or more pack years Acute respiratory failure with hypoxia Restless leg syndrome Hyperlipidemia Hypertension Atrial fibrillation Anxiety Depression COPD (chronic obstructive pulmonary disease) Thoracic compression fracture Former smoker CAD (coronary artery disease) Surgical History History of colon resection History of bilateral knee replacement H/O: hysterectomy Status post ablation of atrial fibrillation OCT 2019 Hx of CABG Family History Other No significant family history Social History (Updated 03/23/25 @ 11:25 by Delmy Guzman RN) Smoking Status: Never smoker years smoked: 56 how long ago did patient quit smoking: july 2022 quit status: quit date established second hand exposure: No alcohol intake: never substance use type: denies use current occupational status: retired Travel in the last 8 weeks?: None household members: spouse and children housing: house lives independently: No marital status: education level: college current occupational exposures/hazards: No caffeine: Yes Have you lived/traveled outside [place] in past 30 days?: No Contact w/someone who lives/traveled outside US past 30 days?: No Exposure to someone with infectious disease in past 14 days?: No Do you have a fever (greater than 100.4 F or 38 C)?: No Have you tested positive for COVID-19?: No Exposed to someone with COVID-19 in past 14 days?: No Do you have a sore throat?: No Do you have a cough?: No Do you have any weakness?: Yes Do you have any diarrhea?: No Are you experiencing any unusual bleeding?: No Do you have any muscle aches/pain?: No Do you have any abdominal pain?: No Are you experiencing loss of taste or smell?: No Other Medical History Have you received the Flu Vaccine for this season: No Have you received the Pneumonia Vaccine: No <Kenyatta Bach (ED), HEAD ANIMAL TRAINER - Last Filed: 05/01/25 19:29> ROS Obtained: Yes Systems reviewed as appropriate & no additional complaints except as documented Constitutional Constitutional: Reports as per HPI Eyes Eyes: Reports as per HPI Physical Exam <Kenyatta Bach (ED), HEAD ANIMAL TRAINER - Last Filed: 05/01/25 19:29> General General appearance: alert Head Head exam: normocephalic Eye Eye exam: Present PERRL ENT ENT exam: Present normal exam and mucous membranes moist Neck Neck exam: Present trachea midline Chest Chest inspection: Present symmetric chest wall rise Respiratory Respiratory exam: Present wheezes and other (Rhonchi throughout) Cardiovascular Cardiovascular exam: Present regular rate, normal rhythm, normal heart sounds, +S1 and +S2 Abdominal Exam Abdominal exam: Present soft and normal bowel sounds Extremities Exam Extremities exam: Present full ROM and normal capillary refill Back Exam Back exam: Present full ROM Neurological Exam Neurological exam: Present alert, oriented X3 and normal gait Psychiatric Psychiatric exam: Present normal affect and normal mood Skin Skin exam: Present warm and dry HEART Score <Kenyatta Bach (ED), HEAD ANIMAL TRAINER - Last Filed: 05/01/25 19:29> HEART Score HEART Score assessment performed?: No Critical Care <Kenyatta Bach (ED), HEAD ANIMAL TRAINER - Last Filed: 05/01/25 19:29> Critical Care Time Critical Care Time: No <Brianna Keith DO - Last Filed: 05/02/25 08:06> Critical Care Time Critical Care Time: Yes Attestation: On 05/01/25, the high probability of a clinically significant, sudden or life threatening deterioration of the following system(s) required my full and direct attention, intervention and personal management. The time I documented below is in addition to time spent performing reported procedures but includes the following listed in this critical care notation. Total Time Total Critical Care Time: 55 Medical Decision Making <Kenyatta Bach (ED), HEAD ANIMAL TRAINER - Last Filed: 05/01/25 19:29> Medical Records Medical records reviewed: Yes I reviewed the patient's medical records. Donald Inquiry Pt receiving controlled substance: No Donald was queried for this patient: No Vital Signs Vital Signs: 05/01/25 11:52 05/01/25 12:15 05/01/25 12:31 Temperature 98 F Temperature Source Oral Pulse Rate 77 76 Pulse Rate [Left] 82 Respiratory Rate 20 Blood Pressure 116/71 121/104 H Blood Pressure [Right Arm] 131/87 Blood Pressure Mean [Right Arm] 101 Blood Pressure Source Blood Pressure Source [Right Arm] Automatic Cuff Blood Pressure Position Blood Pressure Position [Right Arm] Sitting 02 Sat by Pulse Oximetry 97 96 96 Oxygen Delivery Method Room Air Oxygen Flow Rate (LPM) 05/01/25 13:11 05/01/25 13:30 05/01/25 14:00 Temperature Temperature Source Pulse Rate 76 76 70 Pulse Rate [Left] Respiratory Rate Blood Pressure 124/77 123/83 138/83 Blood Pressure [Right Arm] Blood Pressure Mean [Right Arm] Blood Pressure Source Blood Pressure Source [Right Arm] Blood Pressure Position Blood Pressure Position [Right Arm] 02 Sat by Pulse Oximetry 96 99 91 L Oxygen Delivery Method Oxygen Flow Rate (LPM) 05/01/25 14:30 05/01/25 15:00 05/01/25 15:33 Temperature Temperature Source Pulse Rate 75 84 81 Pulse Rate [Left] Respiratory Rate Blood Pressure 142/91 H 137/88 129/86 Blood Pressure [Right Arm] Blood Pressure Mean [Right Arm] Blood Pressure Source Blood Pressure Source [Right Arm] Blood Pressure Position Blood Pressure Position [Right Arm] 02 Sat by Pulse Oximetry 96 94 L 96 Oxygen Delivery Method Oxygen Flow Rate (LPM) 05/01/25 16:02 05/01/25 16:30 05/01/25 18:34 Temperature 97.9 F Temperature Source Oral Pulse Rate 86 80 73 Pulse Rate [Left] Respiratory Rate 16 Blood Pressure 120/81 137/83 138/83 Blood Pressure [Right Arm] Blood Pressure Mean [Right Arm] Blood Pressure Source Automatic Cuff Blood Pressure Source [Right Arm] Blood Pressure Position Supine Blood Pressure Position [Right Arm] 02 Sat by Pulse Oximetry 96 97 99 Oxygen Delivery Method Room Air Oxygen Flow Rate (LPM) 05/01/25 19:18 Temperature 97.9 F Temperature Source Oral Pulse Rate 73 Pulse Rate [Left] Respiratory Rate 16 Blood Pressure 138/83 Blood Pressure [Right Arm] Blood Pressure Mean [Right Arm] Blood Pressure Source Automatic Cuff Blood Pressure Source [Right Arm] Blood Pressure Position Supine Blood Pressure Position [Right Arm] 02 Sat by Pulse Oximetry Oxygen Delivery Method Nasal Cannula Oxygen Flow Rate (LPM) 2 Lab Data Labs: Lab Results 05/01/25 12:06: PT 12.4, INR 1.13 H, APTT 31.9 H, D-Dimer 1.00 H, Sodium 138, Potassium 3.6, Chloride 111 H, Carbon Dioxide 24, Anion Gap 6.6, BUN 14, Creatinine 0.90, Estimated Creat Clear 53, Estimated GFR 61, Est GFR ( Amer) 74, Glucose 102 H, Calcium 8.7, Total Bilirubin 1.4 H, AST 17, ALT 9 L, Alkaline Phosphatase 76, Troponin I < 0.01, C-Reactive Protein 238.8 H, NT-Pro-B Natriuret Pep 2050 H, Total Protein 6.1 L, Albumin 3.4 L, Globulin 2.7, Albumin/Globulin Ratio 1.3, HCV Ab YURI w/Rflx PCR Qn Negative 05/01/25 12:11: VBG pH 7.31, VBG pCO2 44.1, VBG pO2 34.3, VBG HCO3 21.5 L, VBG Total CO2 22.9 L, VBG O2 Saturation 65.2, VBG Base Excess -4.8 L, VBG Lactic Acid 1.6 05/01/25 12:56: Chlamy pneumoniae PCR Not detected, Adenovirus (PCR) Not detected, B. pertussis DNA (PCR) Not detected, Coronavirus OC43 (PCR) Not detected, Coronavirus HKU1 (PCR) Not detected, Coronavirus 229E (PCR) Not detected, SARS-CoV-2 (PCR) Not detected, Coronavirus NL63 (PCR) Not detected, Human Metapneumovir PCR Not detected, Influenza A (H1) PCR Not detected, Influ A (H1N1/09) PCR Not detected, Influenza A (H3) PCR Not detected, Influenza Type A (PCR) Not detected, Influenza Type B (PCR) Not detected, M. pneumoniae (PCR) Not detected, Parainfluenza 1 (PCR) Not detected, Parainfluenza 2 (PCR) Not detected, Parainfluenza 3 (PCR) Not detected, Parainfluenza 4 (PCR) Not detected, RSV (PCR) Not detected, Entero/Rhino (PCR) Not detected 05/01/25 14:53: WBC 9.0, RBC 4.19 L, Hgb 13.2, Hct 39.4, MCV 94.0, MCH 31.5 H, MCHC 33.5, RDW 13.4, Plt Count 259, MPV 9.4, Neut % (Auto) 90.8 H, Lymph % (Auto) 5.5 L, White % (Auto) 2.2, Eos % (Auto) 0.4, Baso % (Auto) 0.2, Neut # (Auto) 8.1 H, Lymph # (Auto) 0.5 L, White # (Auto) 0.2, Eos # (Auto) 0.0, Baso # (Auto) 0.0, Total Counted 100, Neutrophils % (Manual) 93 H, Lymphocytes % (Manual) 5 L, Monocytes % (Manual) 2, Platelet Estimate Normal, RBC Morphology Normal 05/01/25 15:29: Lactate 1.7, Troponin I < 0.01 05/01/25 14:53 05/01/25 12:06 Response Orders (Tests/Meds): ED MEDICATIONS Discontinued Medications Generic Name Dose Route Start Last Admin Trade Name Freq PRN Reason Stop Dose Admin Acetaminophen 1,000 mg 05/01/25 12:15 05/01/25 12:25 Acetaminophen 1,000mg/100ml Vial IV 05/01/25 12:16 1,000 mg ONCE ONE Administration Albuterol/Ipratropium 3 ml 05/01/25 12:20 05/01/25 13:19 Ipratropium/Albuterol 3 Ml Neb IH 05/01/25 12:21 3 ml ONCE ONE Administration Sodium Chloride 500 mls @ 500 mls/hr 05/01/25 14:54 05/01/25 15:11 Sod Chloride 0.9% 500ml Bag IV 05/01/25 15:53 500 mls/hr .Q1H CORDELIA Administration Azithromycin 500 mg/ Sodium 250 mls @ 250 mls/hr 05/01/25 15:00 05/01/25 15:13 Chloride IV 05/11/25 14:59 250 mls/hr Q24H CORDELIA Administration Ceftriaxone Sodium 1 gm/ 50 mls @ 100 mls/hr 05/01/25 15:00 05/01/25 16:02 Sodium Chloride IV 05/11/25 14:59 100 mls/hr Q24H CORDELIA Administration Iopamidol 75 ml 05/01/25 13:50 05/01/25 13:51 Iopamidol-370 (76%);100ml Bottle IV 05/01/25 13:51 75 ml ONCE ONE Administration Ketorolac Tromethamine 30 mg 05/01/25 14:54 05/01/25 15:11 Ketorolac 30mg/Ml Vial IV 05/01/25 14:55 30 mg ONCE ONE Administration Methylprednisolone Sodium Succinate 125 mg 05/01/25 12:15 05/01/25 12:25 Methylprednisolone Sod Succ 125mg Vial IV 05/01/25 12:16 125 mg ONCE ONE Administration Morphine Sulfate 2 mg 05/01/25 17:17 05/01/25 17:25 Morphine 2mg/Ml Syringe IV 05/01/25 17:18 2 mg ONCE ONE Administration Sodium Chloride 50 ml 05/01/25 13:50 05/01/25 13:51 0.9 % Sodium Chloride 50 Ml Vial IV 05/01/25 13:51 50 ml ONCE ONE Administration Sodium Chloride 10 ml 05/01/25 13:50 05/01/25 13:52 Sodium Chloride 0.9% 10ml Syr (Rad Only) IV 05/31/25 13:49 10 ml NEEDED PRN Administration Maintain IV Site ORDERS Category Date Time Status CT head/brain wo con Stat Cat Scan 05/01/25 16:03 Completed CTA Chest [CT angio chest PE protocol] Stat Cat Scan 05/01/25 12:20 Completed Activated Partial Thrombo Time Stat Lab 05/01/25 12:06 Completed BNP [NT Pro Brain Natriuretic Pep.] Stat Lab 05/01/25 12:06 Completed CRP [C-Reactive Protein] Stat Lab 05/01/25 12:06 Completed Complete Blood Count Auto Diff Stat Lab 05/01/25 14:53 Completed Comprehensive Metabolic Panel Stat Lab 05/01/25 12:06 Completed D-Dimer Stat Lab 05/01/25 12:06 Completed Full Resp Panel w/COVID ([facility]) Routine Lab 05/01/25 12:56 Completed Hepatitis C Ab Qual. W/ RFX Stat Lab 05/01/25 12:06 Completed Lactic Acid Stat Lab 05/01/25 15:29 Completed Prothrombin Time INR Stat Lab 05/01/25 12:06 Completed Trop I [Troponin I] Stat Lab 05/01/25 12:06 Completed Troponin I Q3H Lab 05/01/25 15:29 Completed Blood Culture Stat Micro 05/01/25 13:07 Received VBG [Venous Blood Gas] Stat RT 05/01/25 12:11 Completed MDM Narrative Medical Decision Narrative: patient is a 74-year-old female presenting to the emergency department for evaluation of 1 week of shortness of breath, chest pain, loss of appetite and fatigue. She has had a temperature and elevated blood pressure yesterday along with chills and nausea.. Patient is hemodynamically stable and nontoxic-appearing upon arrival, afebrile. Differential diagnosis includes COPD exacerbation, new onset CHF, pneumonia, CAD, among others. Workup will be conducted with hematologic labs, specific imaging, provocative tests. Initial inventions include crystalloid bolus although I will do a smaller bolus as patient does have history of heart failure, analgesics, antibiotics. Initial workup reviewed by me hematologic labs are remarkable for elevated BNP at 2050, CRP 238, normal white count 9. Imaging informally interpreted by me and remarkable for possible pneumonia versus edema on scan read by Dr. Keith. Please read radiology report for formal report. It does say that she has some nodules that favor pneumonia over edema. Upon repeat evaluation patient is hypoxic on exertion to 85%. Discussed with Dr. Nunez, [facility] medicine who accepts patient for admission. 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 Patient complained of headache and was given half a liter of fluids and Toradol. She continued to complain of headache so I placed an order for CT scan since she continued to tell me that she had not had a headache in 15 years and she was on Eliquis and Plavix. Sent patient to the CT scanner and got the results back right before she was being taken to the floor for admission. 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 Called and talked to Dr. Palmer who will have neurosurgery call back. Dr. Palmer called back from and had talked to neurosurgery. Her aneurysm is likely a bleed and she needs to be sent to emergently. Patient will be sent by flight or EMS whichever is faster. Patient safe for discharge <Brianna Keith, DO - Last Filed: 05/02/25 08:06> Vital Signs Vital Signs: 05/01/25 11:52 05/01/25 12:15 05/01/25 12:31 Temperature 98 F Temperature Source Oral Pulse Rate 77 76 Pulse Rate [Left] 82 Respiratory Rate 20 Blood Pressure 116/71 121/104 H Blood Pressure [Right Arm] 131/87 Blood Pressure Mean [Right Arm] 101 Blood Pressure Source Blood Pressure Source [Right Arm] Automatic Cuff Blood Pressure Position Blood Pressure Position [Right Arm] Sitting 02 Sat by Pulse Oximetry 97 96 96 Oxygen Delivery Method Room Air Oxygen Flow Rate (LPM) 05/01/25 13:11 05/01/25 13:30 05/01/25 14:00 Temperature Temperature Source Pulse Rate 76 76 70 Pulse Rate [Left] Respiratory Rate Blood Pressure 124/77 123/83 138/83 Blood Pressure [Right Arm] Blood Pressure Mean [Right Arm] Blood Pressure Source Blood Pressure Source [Right Arm] Blood Pressure Position Blood Pressure Position [Right Arm] 02 Sat by Pulse Oximetry 96 99 91 L Oxygen Delivery Method Oxygen Flow Rate (LPM) 05/01/25 14:30 05/01/25 15:00 05/01/25 15:33 Temperature Temperature Source Pulse Rate 75 84 81 Pulse Rate [Left] Respiratory Rate Blood Pressure 142/91 H 137/88 129/86 Blood Pressure [Right Arm] Blood Pressure Mean [Right Arm] Blood Pressure Source Blood Pressure Source [Right Arm] Blood Pressure Position Blood Pressure Position [Right Arm] 02 Sat by Pulse Oximetry 96 94 L 96 Oxygen Delivery Method Oxygen Flow Rate (LPM) 05/01/25 16:02 05/01/25 16:30 05/01/25 18:34 Temperature 97.9 F Temperature Source Oral Pulse Rate 86 80 73 Pulse Rate [Left] Respiratory Rate 16 Blood Pressure 120/81 137/83 138/83 Blood Pressure [Right Arm] Blood Pressure Mean [Right Arm] Blood Pressure Source Automatic Cuff Blood Pressure Source [Right Arm] Blood Pressure Position Supine Blood Pressure Position [Right Arm] 02 Sat by Pulse Oximetry 96 97 99 Oxygen Delivery Method Room Air Oxygen Flow Rate (LPM) 05/01/25 19:18 Temperature 97.9 F Temperature Source Oral Pulse Rate 73 Pulse Rate [Left] Respiratory Rate 16 Blood Pressure 138/83 Blood Pressure [Right Arm] Blood Pressure Mean [Right Arm] Blood Pressure Source Automatic Cuff Blood Pressure Source [Right Arm] Blood Pressure Position Supine Blood Pressure Position [Right Arm] 02 Sat by Pulse Oximetry Oxygen Delivery Method Nasal Cannula Oxygen Flow Rate (LPM) 2 Lab Data Labs: Lab Results 05/01/25 12:06: PT 12.4, INR 1.13 H, APTT 31.9 H, D-Dimer 1.00 H, Sodium 138, Potassium 3.6, Chloride 111 H, Carbon Dioxide 24, Anion Gap 6.6, BUN 14, Creatinine 0.90, Estimated Creat Clear 53, Estimated GFR 61, Est GFR ( Amer) 74, Glucose 102 H, Calcium 8.7, Total Bilirubin 1.4 H, AST 17, ALT 9 L, Alkaline Phosphatase 76, Troponin I < 0.01, C-Reactive Protein 238.8 H, NT-Pro-B Natriuret Pep 2050 H, Total Protein 6.1 L, Albumin 3.4 L, Globulin 2.7, Albumin/Globulin Ratio 1.3, HCV Ab YURI w/Rflx PCR Qn Negative 05/01/25 12:11: VBG pH 7.31, VBG pCO2 44.1, VBG pO2 34.3, VBG HCO3 21.5 L, VBG Total CO2 22.9 L, VBG O2 Saturation 65.2, VBG Base Excess -4.8 L, VBG Lactic Acid 1.6 05/01/25 12:56: Chlamy pneumoniae PCR Not detected, Adenovirus (PCR) Not detected, B. pertussis DNA (PCR) Not detected, Coronavirus OC43 (PCR) Not detected, Coronavirus HKU1 (PCR) Not detected, Coronavirus 229E (PCR) Not detected, SARS-CoV-2 (PCR) Not detected, Coronavirus NL63 (PCR) Not detected, Human Metapneumovir PCR Not detected, Influenza A (H1) PCR Not detected, Influ A (H1N1/09) PCR Not detected, Influenza A (H3) PCR Not detected, Influenza Type A (PCR) Not detected, Influenza Type B (PCR) Not detected, M. pneumoniae (PCR) Not detected, Parainfluenza 1 (PCR) Not detected, Parainfluenza 2 (PCR) Not detected, Parainfluenza 3 (PCR) Not detected, Parainfluenza 4 (PCR) Not detected, RSV (PCR) Not detected, Entero/Rhino (PCR) Not detected 05/01/25 14:53: WBC 9.0, RBC 4.19 L, Hgb 13.2, Hct 39.4, MCV 94.0, MCH 31.5 H, MCHC 33.5, RDW 13.4, Plt Count 259, MPV 9.4, Neut % (Auto) 90.8 H, Lymph % (Auto) 5.5 L, White % (Auto) 2.2, Eos % (Auto) 0.4, Baso % (Auto) 0.2, Neut # (Auto) 8.1 H, Lymph # (Auto) 0.5 L, White # (Auto) 0.2, Eos # (Auto) 0.0, Baso # (Auto) 0.0, Total Counted 100, Neutrophils % (Manual) 93 H, Lymphocytes % (Manual) 5 L, Monocytes % (Manual) 2, Platelet Estimate Normal, RBC Morphology Normal 05/01/25 15:29: Lactate 1.7, Troponin I < 0.01 Response Orders (Tests/Meds): ED MEDICATIONS Discontinued Medications Generic Name Dose Route Start Last Admin Trade Name Freq PRN Reason Stop Dose Admin Acetaminophen 1,000 mg 05/01/25 12:15 05/01/25 12:25 Acetaminophen 1,000mg/100ml Vial IV 05/01/25 12:16 1,000 mg ONCE ONE Administration Albuterol/Ipratropium 3 ml 05/01/25 12:20 05/01/25 13:19 Ipratropium/Albuterol 3 Ml Neb IH 05/01/25 12:21 3 ml ONCE ONE Administration Sodium Chloride 500 mls @ 500 mls/hr 05/01/25 14:54 05/01/25 15:11 Sod Chloride 0.9% 500ml Bag IV 05/01/25 15:53 500 mls/hr .Q1H CORDELIA Administration Azithromycin 500 mg/ Sodium 250 mls @ 250 mls/hr 05/01/25 15:00 05/01/25 15:13 Chloride IV 05/11/25 14:59 250 mls/hr Q24H CORDELIA Administration Ceftriaxone Sodium 1 gm/ 50 mls @ 100 mls/hr 05/01/25 15:00 05/01/25 16:02 Sodium Chloride IV 05/11/25 14:59 100 mls/hr Q24H CORDELIA Administration Iopamidol 75 ml 05/01/25 13:50 05/01/25 13:51 Iopamidol-370 (76%);100ml Bottle IV 05/01/25 13:51 75 ml ONCE ONE Administration Ketorolac Tromethamine 30 mg 05/01/25 14:54 05/01/25 15:11 Ketorolac 30mg/Ml Vial IV 05/01/25 14:55 30 mg ONCE ONE Administration Methylprednisolone Sodium Succinate 125 mg 05/01/25 12:15 05/01/25 12:25 Methylprednisolone Sod Succ 125mg Vial IV 05/01/25 12:16 125 mg ONCE ONE Administration Morphine Sulfate 2 mg 05/01/25 17:17 05/01/25 17:25 Morphine 2mg/Ml Syringe IV 05/01/25 17:18 2 mg ONCE ONE Administration Sodium Chloride 50 ml 05/01/25 13:50 05/01/25 13:51 0.9 % Sodium Chloride 50 Ml Vial IV 05/01/25 13:51 50 ml ONCE ONE Administration Sodium Chloride 10 ml 05/01/25 13:50 05/01/25 13:52 Sodium Chloride 0.9% 10ml Syr (Rad Only) IV 05/31/25 13:49 10 ml NEEDED PRN Administration Maintain IV Site ORDERS Category Date Time Status CT head/brain wo con Stat Cat Scan 05/01/25 16:03 Completed CTA Chest [CT angio chest PE protocol] Stat Cat Scan 05/01/25 12:20 Completed Activated Partial Thrombo Time Stat Lab 05/01/25 12:06 Completed BNP [NT Pro Brain Natriuretic Pep.] Stat Lab 05/01/25 12:06 Completed CRP [C-Reactive Protein] Stat Lab 05/01/25 12:06 Completed Complete Blood Count Auto Diff Stat Lab 05/01/25 14:53 Completed Comprehensive Metabolic Panel Stat Lab 05/01/25 12:06 Completed D-Dimer Stat Lab 05/01/25 12:06 Completed Full Resp Panel w/COVID ([facility]) Routine Lab 05/01/25 12:56 Completed Hepatitis C Ab Qual. W/ RFX Stat Lab 05/01/25 12:06 Completed Lactic Acid Stat Lab 05/01/25 15:29 Completed Prothrombin Time INR Stat Lab 05/01/25 12:06 Completed Trop I [Troponin I] Stat Lab 05/01/25 12:06 Completed Troponin I Q3H Lab 05/01/25 15:29 Completed Blood Culture Stat Micro 05/01/25 13:07 Received VBG [Venous Blood Gas] Stat RT 05/01/25 12:11 Completed ECG Data Tracing #1: Attestation: I reviewed this ECG and interpreted as documented below: ECG Narrative: Sinus rhythm with a ventricular rate of 78 bpm. No acute STEMI. Some motion artifact. ECG initial impression date: 05/01/25 ECG initial impression time: 11:53 MDM Narrative Medical Decision Narrative: patient is a 74-year-old female presenting to the emergency department for evaluation of 1 week of shortness of breath, chest pain, loss of appetite and fatigue. She has had a temperature and elevated blood pressure yesterday along with chills and nausea.. Patient is hemodynamically stable and nontoxic-appearing upon arrival, afebrile. Differential diagnosis includes COPD exacerbation, new onset CHF, pneumonia, CAD, among others. Workup will be conducted with hematologic labs, specific imaging, provocative tests. Initial inventions include crystalloid bolus although I will do a smaller bolus as patient does have history of heart failure, analgesics, antibiotics. Initial workup reviewed by me hematologic labs are remarkable for elevated BNP at 2050, CRP 238, normal white count 9. Imaging informally interpreted by me and remarkable for possible pneumonia versus edema on scan read by Dr. Keith. Please read radiology report for formal report. It does say that she has some nodules that favor pneumonia over edema. Upon repeat evaluation patient is hypoxic on exertion to 85%. Discussed with Dr. Nunez, hospital medicine who accepts patient for admission. 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 Patient complained of headache and was given half a liter of fluids and Toradol. She continued to complain of headache so I placed an order for CT scan since she continued to tell me that she had not had a headache in 15 years and she was on Eliquis and Plavix. Sent patient to the CT scanner and got the results back right before she was being taken to the floor for admission. 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 Called and talked to Dr. Palmer who will have neurosurgery call back. Dr. Palmer called back from and had talked to neurosurgery. Her aneurysm is likely a bleed and she needs to be sent to emergently. Patient will be sent by flight or EMS whichever is faster. Goal systolic blood pressure maintained less than 140. patient transferred in stable condition DO Sagar: I was consulted by the [facility], and we discussed the complexity of the problems being addressed. I approved the treatment and management plan for this patient's care in the emergency department, thus performing a substantive portion of the medical decision making. Brianna Keith DO
[2025-05-01 12:25] LABS: Lactate Venous 1.6 mmol/L (0.4-2.0); VBG Base Excess -4.8 mmol/L (-2.4-2.3); VBG HCO3 21.5 mmol/L (23-30); VBG Oxygen Saturation 65.2 % (50-70); VBG PCO2 44.1 mmol/L (35-51); VBG PH 7.31 mmol/L (7.31-7.41); VBG PO2 34.3 mmol/L (28-40); VBG Total CO2 22.9 mmol/L (23-27)
[2025-05-01] MEDS: METHYLPREDNISOLONE SOD SUCC 125MG VIAL 125 MG IV (12:25)
[2025-05-01] MEDS: ACETAMINOPHEN 1,000MG/100ML VIAL 1000 MG IV (12:25)
[2025-05-01 12:40] LABS: Activated Partial Thrombo Time 31.9 seconds (22.8-30.6); INR 1.13 (0.9-1.1); Prothrombin Time 12.4 seconds (10.1-12.5)
[2025-05-01 12:44] LABS: NT Pro Brain Natriuretic Pep. 2050 pg/mL (0-125)
[2025-05-01 12:45] LABS: Troponin I < 0.01 ng/ml (0.00-0.034)
[2025-05-01 12:47] LABS: Alanine Aminotransferase 9 U/L (12-78); Albumin Level 3.4 g/dl (3.5-5.0); Albumin/Globulin Ratio 1.3 (1.1-1.8); Alkaline Phosphatase 76 U/L (38-126); Anion Gap 6.6 mEq/L (5-15); Aspartate Amino Transferase 17 U/L (14-36); Bilirubin,Total 1.4 mg/dl (0.2-1.3); Blood Urea Nitrogen 14 mg/dl (7-17); Calcium 8.7 mg/dl (8.4-10.2); Carbon Dioxide 24 mmol/L (22.0-30.0); Chloride 111 mmol/L (98-107); Creatinine Clearance Estimated 53 mL/min (50-200); Estimated Glomerular Filt Rate 61 ml/min (>60); GFR (African American) 74 ML/MIN (>60); Globulin 2.7 g/dL (1.3-3.2); Glucose 102 mg/dl (74-100); Potassium 3.6 mmoL/L (3.5-5.1); Sodium 138 mmol/L (136-145); Total Protein,Serum 6.1 g/dl (6.3-8.2)
[2025-05-01 13:05] LABS: Adenovirus,PCR Not Detected (NotDetected); Bordetella Pertussis Not Detected (NotDetected); Chlamydophila Pneumoniae, PCR Not Detected (NotDetected); Coronavirus 19, PCR Not Detected (NotDetected); Coronavirus 229E Not Detected (NotDetected); Coronavirus NL63 Not Detected (NotDetected); Coronavirus OC43 Not Detected (NotDetected); Coronovirus HKU1,PCR Not Detected (NotDetected); Human Metapneumovirus Not Detected (NotDetected); Influenza A, PCR Not Detected (NotDetected); Influenza AH1, 2009 Not Detected (NotDetected); Influenza AH1, PCR Not Detected (NotDetected); Influenza AH3,PCR Not Detected (NotDetected); Influenza B, PCR Not Detected (NotDetected); Mycoplasma Pneumoniae, PCR Not Detected (NotDetected); Parainfluenza 1, PCR Not Detected (NotDetected); Parainfluenza 2, PCR Not Detected (NotDetected); Parainfluenza 3, PCR Not Detected (NotDetected); Parainfluenza 4, PCR Not Detected (NotDetected); Respiratory Syncytial Virus Not Detected (NotDetected); Rhinovirus/Enterovirus Not Detected (NotDetected)
[2025-05-01] MEDS: IPRATROPIUM/ALBUTEROL 3 ML NEB IH (13:19)
[2025-05-01] MEDS: 0.9 % SODIUM CHLORIDE 50 ML VIAL IV (13:51)
[2025-05-01] MEDS: IOPAMIDOL-370 (76%);100ML BOTTLE 75 ML IV (13:51)
[2025-05-01] MEDS: SODIUM CHLORIDE 0.9% 10ML SYR (RAD ONLY) 10 ML IV (13:52)
[2025-05-01 14:59] LABS: Basophils % 0.2 % (0.1-2.0); Eosinophils % 0.4 % (0.1-12.0); Hematocrit 39.4 % (37.0-47.0); Hemoglobin 13.2 g/dL (12.2-16.2); Immature Granulocytes # 0.08 10^3uL; Immature Granulocytes % 0.9 %; Lymphocytes # 0.5 K/mm3 (0.7-4.5); Lymphocytes % 5.5 % (10-50); Mean Corpuscular HGB Conc 33.5 g/dL (31.8-35.4); Mean Corpuscular Hemoglobin 31.5 pg (27.0-31.2); Mean Platelet Volume 9.4 fl (7.4-10.4); Monocytes # 0.2 K/mm3 (0.1-1.0); Monocytes % 2.2 % (1.7-9.3); Neutrophils # 8.1 K/mm3 (1.8-7.8); Neutrophils % 90.8 % (37.0-80.0); Nucleated Red Blood Cells # 0 10^3/uL; Nucleated Red Blood Cells % 0 %; Platelet Count 259 K/mm3 (142-424); Red Blood Count 4.19 M/mm3 (4.20-5.40); Red Cell Distribution Width 13.4 % (11.5-17.5); Red Cell Distribution Width-SD 46.3 fL
[2025-05-01 15:00] LABS: C-Reactive Protein 238.8 mg/L (0-4)
[2025-05-01 15:03] LABS: MANUAL DIFFERENTIAL MANUAL DIFFERENTIAL (MANUAL DIFF)
[2025-05-01] MEDS: KETOROLAC 30MG/ML VIAL 30 MG IV (15:11)
[2025-05-01] MEDS: 0.9 % SODIUM CHLORIDE 500 ML IV (15:11)
[2025-05-01] MEDS: AZITHROMYCIN 500 MG in 0.9 % SODIUM CHLORIDE 250 ML 250 MG IV (15:13)
[2025-05-01 15:35] LABS: Lymphocytes % 5 % (10-50); Monocytes % 2 % (2-9); Neutrophils % 93 % (42-76); Total Cells Counted 100
[2025-05-01 15:36] LABS: Platelet Estimate Normal; RBC Morphology Normal
[2025-05-01 15:46] LABS: Lactic Acid 1.7 mmol/L (0.7-2.1)
--- NOTE | 2025-05-01 15:53 | PC.NURSE ---
Pt ambulate from room to nurses station O2 dropped to 85%, HR 130's, tachypnea. Pt placed in w/c returned to room O2 applied, at bedside
[2025-05-01] MEDS: CEFTRIAXONE 1 GM 1 GM in 0.9 % SODIUM CHLORIDE 50 ML IV (16:02)
--- NOTE | 2025-05-01 16:03 | CT_ITS ---
FINAL REPORT TECHNIQUE: Thin section axial images were obtained from skull base to vertex without contrast. Coronal reconstruction images were obtained from the axial data. Exam was performed using dose reduction techniques such as automated exposure control, adjustment of the mA and kV according to patient size, and use of iterative reconstruction technique. CLINICAL HISTORY: headache, previous contrast study FINDINGS: There is no midline shift. Intravascular contrast is noted from study performed prior to this exam. There is an enhancing lesion along the medial aspect of the right frontal lobe near the midline measuring 14 x 17 mm with peripheral calcification, likely an aneurysm. Enhancing mass is felt less likely. There is no hydrocephalus. There is no intracranial hemorrhage. The posterior fossa is without acute abnormality. The basilar cisterns are preserved. The soft tissues are without acute abnormality. No acute osseous abnormality is identified. IMPRESSION: Large enhancing lesion along the medial aspect of the right frontal lobe, likely between the right and left frontal lobes with peripheral calcification. Findings are favored to represent a large aneurysm. Reviewed, Interpreted and Dictated by Marisabel Lawson MD Transcribed by Ilda Rodriguez Authenticated and . [facility]
[2025-05-01 16:05] LABS: Troponin I < 0.01 ng/ml (0.00-0.034)
--- NOTE | 2025-05-01 16:08 | PC.NURSE ---
[facility] notified of the need for a bed to admit the pt
--- NOTE | 2025-05-01 17:12 | PC.NURSE ---
Called for a patient transfer Per Dr. Corona they stated they will call back.
[2025-05-01] MEDS: MORPHINE 2MG/ML SYRINGE 2 MG IV (17:25)
--- NOTE | 2025-05-01 18:25 | PC.NURSE ---
Pt has been accepted to [facility] ED by at the request of [facility].
--- NOTE | 2025-05-01 18:26 | PC.NURSE ---
call made to [facility] for weather check
--- NOTE | 2025-05-01 18:43 | PC.NURSE ---
[facility] declined for weather.
[2025-05-01 19:36] LABS: Hepatitis C Ab Qual. W/ RFX NEGATIVE (Negative)
== END 2025-05-01 18:55 | disposition short-term general hospital (02) ==
LOC: ER 16:03 → 2ND 16:22 → ER 18:41
PROVIDERS: Nurse Practitioner; Emergency Provider Emergency Medicine; PCP Internal Medicine Adolescent Medicine
DX: J18.9 Pneumonia, unspecified organism (principal); R94.02 Abnormal brain scan; R07.89 Other chest pain; R06.02 Shortness of breath; Z87.891 Personal history of nicotine dependence; Z11.59 Encounter for screening for other viral diseases
CPT/HCPCS: 0223U; 70450; 71275; 80053; 80074; 82803; 83605; 83880; 84484; 85007; 85025; 85027; 85378; 85610; 85730; 86140; 87040; 87633; 93005; 96365; 96366; 96375; 99291; J0131; J0456; J0696; J1885; J2270; J2919; J7040; J7050; Q9967

== ENCOUNTER 2025-08-05 13:32 | Outpatient (CLI) | payer MEDICARE, SELFPAY ==
[2025-08-05 14:21] LABS: Hematocrit 39.9 % (37.0-47.0); Hemoglobin 13.0 g/dL (12.2-16.2); Immature Granulocytes % 0.4 %; Mean Corpuscular HGB Conc 32.6 g/dL (31.8-35.4); Mean Corpuscular Hemoglobin 30.0 pg (27.0-31.2); Mean Corpuscular Volume 91.9 fl (81-99); Nucleated Red Blood Cells % 0 %; Platelet Count 377 K/mm3 (142-424); Red Blood Count 4.34 M/mm3 (4.20-5.40); Red Cell Distribution Width-SD 44.6 fL; White Blood Count 7.7 K/mm3 (4.8-10.8)
[2025-08-05 15:36] LABS: Alanine Aminotransferase 15 U/L (12-78); Albumin Level 3.9 g/dl (3.5-5.0); Alkaline Phosphatase 56 U/L (38-126); Anion Gap 10.4 mEq/L (5-15); Aspartate Amino Transferase 23 U/L (14-36); Bilirubin,Direct 0.2 mg/dl (0.0-0.4); Bilirubin,Indirect 0.3 mg/dL (0.0-0.9); Bilirubin,Total 0.5 mg/dl (0.2-1.3); Bilirubin,Unconjugated 0.3 mg/dL (0.0-1.1); Blood Urea Nitrogen 12 mg/dl (7-17); Calcium 9.9 mg/dl (8.4-10.2); Carbon Dioxide 26 mmol/L (22.0-30.0); Chloride 108 mmol/L (98-107); Cholesterol 172 mg/dl (140-200); Creatinine,Serum 0.80 mg/dl (0.52-1.04); Estimated Glomerular Filt Rate 70 ml/min (>60); GFR (African American) 85 ML/MIN (>60); Glucose 103 mg/dl (74-100); HDL Cholesterol 58 mg/dl (40-60); Magnesium 1.6 mg/dl (1.6-2.3); Potassium 4.4 mmoL/L (3.5-5.1); Sodium 140 mmol/L (136-145); Total Protein,Serum 6.6 g/dl (6.3-8.2); Triglycerides 262 mg/dl (30-150)
[2025-08-05 15:52] LABS: Free T4 (Free Thyroxine) 1.20 ng/dl (0.78-2.19)
[2025-08-05 16:07] LABS: Thyroid Stimulating Hormone 1.02 uIU/mL (0.465-4.68)
== END 2025-08-05 23:59 | disposition home or self-care (01) ==
LOC: LAB 13:33
PROVIDERS: PCP Internal Medicine Adolescent Medicine; Visit Provider Nurse Practitioner
DX: I25.10 Atherosclerotic heart disease of native coronary artery without angina pectoris (principal); I71.21 Aneurysm of the ascending aorta, without rupture; E78.5 Hyperlipidemia, unspecified; I11.0 Hypertensive heart disease with heart failure; I50.20 Unspecified systolic (congestive) heart failure; J44.9 Chronic obstructive pulmonary disease, unspecified; R94.31 Abnormal electrocardiogram [ECG] [EKG]; Z95.1 Presence of aortocoronary bypass graft
CPT/HCPCS: 36415; 80048; 80061; 80076; 83735; 84439; 84443; 85025

== ENCOUNTER 2025-08-17 13:09 | Outpatient (CLI) | payer MEDICARE, SELFPAY ==
--- OUTSIDE RECORDS SUMMARY | 2025-06-22 08:14 | XMS_ITS | Encounter Summary ---
Author Organization Healthcare Address [address] [id number] Care Team Providers Care Chair Post Machine Operator Name Role Phone Michael Baez MD Primary Care Provider [phone] Acacia Scott PUBLIC ADMINISTRATION TEACHER Unavailable [phone] Virgilio Nguyễn MD Unavailable [phone] Reason for Visit * Auth/Cert (Routine) Specialty Diagnoses / Procedures Referred By Contac t Referred To Contact Diagnoses Cerebral aneurysm David Gallego MD [address] [facility] [address] [place] [address] Phone: tel: fax: PAV A Inpatient [address] [place] [address] Phone: tel: Referral ID Status Reason Start Date Expiration Date Visits Re quested Visits Authorized [id number] 1 1 Encounter Details Date Type Department Care Team (Late st Contact Info) Description 06/22/2025 8:14 AM EDT Anesthesia Event PAV A Interventional Radiology [address] [place] [address] Jael Lazo MD [address] [place] [address] Nick Duke CRNA [address] [place] [address] Anesthesia Record Procedure Summary Procedure Name Responsible Anesthesiologist Anesthesia Start Time Anesthesia Stop Time IR ARTERIAL EMBOLIZATION Jael Lazo MD 06/22/25 0814 06/22/25 1130 Events Date Time Event Comment 06/22/2025 0700 0814 An Start The patient was reevaluated immediately before sedation and remains eligible for anesthesia plan. 0817 ANPATVER 0818 An Start Data 0823 An Induction The patient was reevaluated immediately before moderate or deep sedation use and before anesthesia induction. 0825 An Intubation 0845 Anesthesia Ready 0912 Master Heparin 3,000 u nits iv per surgeon request 1108 An Extubation 1112 an stop data 1130 Handoff to Receiving I compl eted my handoff to the receiving clinician during which we: 1. Identified the patient 2. Identified the responsible provider 3. Reviewed the pertinent medical history 4. Discussed the surgical course 5. Reviewed intra-op anesthesia management and issues during anesthesia 6. Set expectations for post-procedure period 7. Allowed opportunity for questions and acknowledgement of understanding. 1130 An Stop Meds Name Total fentaNYL (Sublimaze) injection 50 mcg/mL 100 mcg propofol (Diprivan) injection 10 mg/mL 5 00 mg rocuronium (ZeMuron) injection 10 mg/mL 100 mg ePHEDrine injection prefilled syringe 5 mg/mL 5 mg ondansetron (Zofran) injection 2 mg/mL 4 mg sugammadex (Bridion) injection 100 mg/mL 200 mg Lidocaine HCl 100 MG/5ML 50 mg dexamethasone (Decadron) injection 4 mg/ mL 4 mg esmolol (Brevibloc) injection 10 mg/mL 2 ,121 mcg heparin (porcine) 1000 UNIT/ML 6,000 Uni ts glycopyrrolate (Robinul) injection 0.2 m g/mL 0.2 mg dexmedetomidine (Precedex) injection 100 mcg/mL 24 mcg hydrALAZINE (Apresoline) injection 10 mg lactated Ringer's infusion 1,000 mL * Agents No agents on file. * Blood No blood administrations on file. Lines, Drains, and Airways Type Details Placement Removal Wound 05/05/25; 1431; Surg ical; Catheter Ent; Arm; Anterior, Distal, Lower, Right; arterial sheath entry site 05/05/25 1431 by Aaron De La Cruz RN Wound 06/22/25; 1114; Yes; Surgical; Catheter Ent; Anterior, Right; sheath site 06/22/25 1114 by Riddhi Kennedy RN Peripheral IV Placement Date: 05/27 07/20; Placement Time: 07; Catheter Size: 20 G; Orientation: Left; Location: Antecubital; Site Prep: Alcohol; Local Anesth: None; Technique: Anatomical landmarks; Inserted by: ROXANNE; Insertion Attempts: 2; Patient Tolerance: Tolerated well; Removal Date: 06/23/25; Removal Time: 1009; Removal Reason: Per order 06/22/25 0735 by Marifer Guadarrama RN 06/23/25 1009 by Armando Cortes RN Arterial Line Placement Date: 05/27 07/20; Placement Time: 08 (created via procedure documentation); Size: 20 G; Orientation: Left; Location: Radial; Inserted by: JOSE; Securement: Taped; Patient Tolerance: Tolerated well; Removal Date: 06/23/25; Removal Time: 0906/22/25 0815 by Nick Duke CRNA 06/23/25 09 by Armando Cortes RN ETT Placement Date: 05/27 07/20; Placement Time: 824 (created via procedure documentation); Mask Ventilation: 1; Technique: Direct laryngoscopy; Type: ETT - single; Single Lumen Tube Size: 7 mm; Cuffed: Yes; Laryngoscope: Pineda; Blade Size: 2; Location: Oral; Grade View: Grade I; Insertion Attempts: 1; Placement Verification: Auscultation, Capnometry; Placed by: JOSE; Removal Date: 06/22/25; Removal Time: 1108 06/22/25 0825 by Nick Duke CRNA 06/22/25 1108 by Nick Duke CRNA Peripheral IV Placement Date: 05/27 07/20; Placement Time: 826; Catheter Size: 20 G; Orientation: Left; Location: Arm; Site Prep: Alcohol; Local Anesth: None; Technique: Anatomical landmarks; Inserted by: Srikanth; Insertion Attempts: 1; Removal Date: 06/23/25; Removal Time: 1005; Removal Reason: Per order 06/22/25 0827 by Nick Duke CRNA 06/23/25 1005 by Armando Cortes RN Urethral Catheter Placement Date: 05/27 07/20; Placement Time: 0835; Inserted by: Brandy Flores RN; Type: Temperature probe; Size: 16 Fr.; Balloon Size: 10 mL; Urine Returned: Yes; Removal Date: 06/22/25; Removal Time: 1730; Removal Reason: Per order 06/22/25 0835 by Brandy Flores RN 06/22/25 1730 by Marianna Bone Arterial Sheath 06/22/25; 0910; No; 06/22/25; 6 Fr.; Right; Femoral; No; Yumi Brown MD; None; Chlorhexidine ; Yes; 06/22/25; 1058; Per protocol; No complications 06/22/25 0910 by Brnady Flores RN 06/22/25 1058 by Brandy Flores RN documented in this encounter Social History Tobacco Use Types Packs/Day Years Used Date Smoking Tobacco: Former Cigarettes 2 63.1 0 11/26/1959 - 12/2022 Smokeless Tobacco: Never Alcohol Use Standard Drinks/Week Comments Never 0 (1 standard drink = 0.6 oz pur e alcohol) PHQ-2 Answer Date Recorded Patient Health Questionnaire-2 Score 0 03/31/2024 Humiliation, Afraid, Rape, and Kick questionnair e Answer Date Recorded Within the last year, have y ou been afraid of your partner or ex-partner? No 05/05/2025 Within the last year, have y ou been humiliated or emotionally abused in other ways by your partner or ex-partner? No Within the last year, have y ou been kicked, hit, slapped, or otherwise physically hurt by your partner or ex-partner? No 05/05/2025 Within the last year, have y ou been raped or forced to have any kind of sexual activity by your partner or ex-partner? No 05/05/2025 Hunger Vital Sign Answer Date Recorded Within the past 12 months, y ou worried that your food would run out before you got the money to buy more. Never true 05/08/20 25 Within the past 12 months, t he food you bought just didn't last and you didn't have money to get more. Never true 05/08/2025 PRAPARE - Transportation Answer Date Re corded In the past 12 months, has l ack of transportation kept you from medical appointments or from getting medications? No 04/26 In the past 12 months, has l ack of transportation kept you from meetings, work, or from getting things needed for daily living? No 05/08/2025 Housing Stability Vital Sign Answer Gibson e Recorded In the last 12 months, was t here a time when you were not able to pay the mortgage or rent on time? No 05/08/2025 In the past 12 months, how m any times have you moved where you were living? 0 05/08/2025 At any time in the past 12 m [facility], were you homeless or living in a senior care (including now)? No 05/08/2025 CAGE ASSESSMENT Answer Date Recorded Cage unable to access Not on file 05/03/2025 Cage max number of drinks Not on file 2024 Cage Beverages a week Not on file 05/03/2025 Have you ever felt you should CUT down on your d rinking? 0 05/03/2025 Have you been ANNOYED by people criticizing your drinking? 0 05/03/2025 Have you felt GUILTY about your drinking? 0 05/03/2025 Have you had a drink first t pippa in the morning (EYE-CHIEF TRANSFER AND PUMPHOUSE OPERATOR) to 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 0 05/03/2025 CAGE Questionnaire Score 0 025 Utilities Answer Date Recorded In the past 12 months has th e electric, gas, oil, or water company threatened to shut off services in your home? No 05/08/2025 Comments No Sex and Gender Information Value Date Recorded Sex Assigned at Not on file Legal Sex Female 7:36 PM EDT Gender Identity Not on file Sexual Orientation Not on file documented as of this encounter Functional Status * Calculated C-SSRS Risk Score (Lifetime/Recent) Answer Date of Assessment Author No Risk Indicated 06/22/2025 3:00 PM EDT Marianna Bone * Question Answer Date of Assessment Author 1. Wish to be (Past 1 Month) No 025 3:00 PM EDT Marianna Bone 2. Non-Specific Active Suici eri Thoughts (Past 1 Month) No 06/22/2025 3:00 PM EDT Damaris Bone 6. Suicidal Behavior (Lifetime) No 3:00 PM RUPALT Marianna Bone documented as of this encounter Miscellaneous Notes * Anesthesia Postprocedure Evaluation - Nick Duke CRNA - 06/22/2025 11:30 AM EDT Patient: Supriya Andres Anesthesia Type: general Vitals Value Taken Time BP 121/100 06/22/25 11:30 Temp 97.2 06/22/25 11:30 Pulse 57 06/22/25 11:28 Resp 18 06/22/25 11:28 SpO2 96 % 06/22/25 11:28 Vitals shown include unfiled device data. Anesthesia Post Evaluation Patient location during evaluation: PACU Patient participation: complete - patient participated Level of consciousness: awake Pain management: inadequate (pain score >3) with changes suggested below Airway patency: natural airway Cardiovascular status: hemodynamically stable Respiratory status: spontaneous ventilation, nonlabored ventilation and nasal cannula Hydration status: stable Nausea/Vomiting: No Comments: Access site clean and dry. No hematoma. Pain being treated by MACHINE ADJUSTER. No notable events documented. Patient movement during BP checks due to hip pain. * Anesthesia Procedure Notes - Nick Duke CRNA - 06/22/2025 9:59 AM EDT Associated Order(s): Arterial Line Arterial Line: Date/Time: 06/22/2025 8:15 AM An arterial line was placed. Procedure performed using ultrasound guidance in the OR for the following indication(s): continuousblood pressure monitoring. A 20 gauge (size), 1 and 3/4 inch (length), Arrow (type) catheter was placed into the Left radial artery and secured by tape. Seldinger technique used Events: patient tolerated procedure well with no complications. Staffing Performed: AEGIS CONSOLE OPERATOR TRACK AEGIS CONSOLE OPERATOR TRACK: Nick Duke CRNA * Anesthesia Procedure Notes - Nick Duke CRNA - 06/22/2025 8:46 AM EDT Associated Order(s): Airway Airway Date/Time: 06/22/2025 8:25 AM Reason: elective Airway not difficult General Information and Staff Patient location during procedure: [place] AEGIS CONSOLE OPERATOR TRACK: Nick Duke CRNA Performed: AEGIS CONSOLE OPERATOR TRACK Patient Condition Indications for airway management: anesthesia Patient position: sniffing Final Airway Details Final airway type: endotracheal airway Successful airway: ETT Cuffed: yes Successful intubation technique: direct laryngoscopy Adjuncts used in placement: intubating stylet Endotracheal tube insertion site: oral Blade: Pineda Blade size: #2 ETT size (mm): 7.0 Cormack-Lehane Classification: grade I - full view of glottis Placement verified by: chest auscultation and capnometry Cuff volume (mL): 6 Measured from: lips ETT to lips (cm): 20 * Anesthesia Preprocedure Evaluation - Jael Lazo MD - 06/21/2025 10:29 AM EDT Images from the original note were not included. HPI Supriya Andres is a 74 y.o. female who presents with an right cerebral artery aneurysm scheduled for IR arterial embolization 06/22/25 Past Medical History[1] Family History[2] Social History[3] SURGICAL HISTORY: Surgical History[4] Allergies[5] MEDICATIONS: Current Medications[6] ROS Anesthesia: Date of last anesthetic: ~5 years ago history of previous anesthesia and obstructive sleep apnea (noted in chart but patient denies). Does not have a history of anesthetic complications, malignant hyperthermia and PONV. Cardiovascular: atrial fibrillation (on eliquis), CAD (s/p CABG, stent to LAD with AMY in May 2019 and as recent as 04/30/2020 she was found to have ISRS of the distal portion of the mid LAD with a mildly reduced EF of 45-50%. on plavix and aspirin), CHF (HFpEF), hyperlipidemia, past GA and pulmonary hypertension. Does not have angina, dyspnea, dysrhythmias, murmur, pacemaker or syncope. hypertension: is well controlled. Exercise tolerance is 2 flights of stairs. Does not have chest pain. Cardio additional comments: Unable to lay flat due to back and hip pain No active cardiac complaints. Cards Visit 09/29/24 Assessment and Plan CAD -s/p ISRS of [...] EKG before surgery Follow-up in 6 months - per Acacia Scott APRN. Respiratory: home oxygen (as needed. has not worn in about a week). Patient has no dyspnea.asthma: well controlled.COPD: breathing at baseline.Has not had an upper respiratory infection in last 30 days. Has not had bronchitis in the last 30 days, pneumonia in the last 30 days or COVID in the last 30 days. Respiratory ROS additional comments: Hospitalized for CAP from 05/01/25 to 05/06/25 and was treated with zithromax x 3 days and 5 days of ceftriaxone. Returned to baseline She reports going to the PCP about 1 week ago with copd exacerbation. She was treated with doxycycline to prevent pneumonia and her last dose is night of 06/10. Patient feels like her breathing Is back at baseline. Has not had to use nebulizers in a few days HEENT: Does not have difficulty swallowing.Does not have hearing loss. HEENT additional comments: Has upper plate . Neurological: headaches. no seizures: Did not have a cerebrovascular accident.Does not have TIA. Neuro additional comments: +aneurysm Musculoskeletal: arthritis. Does not have cervical spine limited mobility. Musc/Skel/Integ additional comments: +back pain +RLS Integumentary: Negative skin ROS. Gastrointestinal: GERD: well controlled.Does not have hernia, pancreatitis or PUD. Does not have cirrhosis or hepatitis. obese. Genitourinary: Does not have chronic renal disease.Does not have renal disease. Hematological/Lymphatic: History of no DVT. History of no pulmonary embolism. Not in a hypercoagulable state. history of chemotherapy without cardiopulmonary complications. no history of radiation Does not have AIDS, HIV, MRSA or tuberculosis. 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 Does not have thyroid disorder. Lab Results Component Value Date WBC 6.31 06/02/2025 HGB 13.7 06/02/2025 HCT 42.7 06/02/2025 MCV 95 06/02/2025 PLT 303 06/02/2025 Lab Results Component Value Date GLUCOSE 100 (H) 06/02/2025 BUN 13 06/02/2025 CREATININE 0.82 06/02/2025 BCR 16 06/02/2025 NA 140 06/02/2025 K 4.3 06/02/2025 CL 103 06/02/2025 CO2 24 06/02/2025 CA 9.1 10/30/2019 ALBUMIN 4.1 06/02/2025 ALKPHOS 66 06/02/2025 BILITOT 0.5 06/02/2025 Lab Results Component Value Date HGBA1C 5.3 06/02/2025 Lab Results Component Value Date INR 1.1 06/02/2025 INR 1.1 05/04/2025 INR 1.4 (H) 05/01/2025 06/02/2025 10:29 AM Vitals Systolic 128 Diastolic 74 Heart Rate 65 Height (cm) 162.6 cm Weight (kg) 68.8 kg BMI 26.04 kg/m2 BSA (m2) 1.76 m2 Visit Report Report Patient reports her o2 is typically around 92-96% at home. Anything less and she puts on he rO2 Visit Vitals OB Status Hysterectomy Smoking Status Former 05/01/25 EKG Echo 05/05/25 Left Ventricle The left ventricle is mildly dilated. There is normal left ventricular myocardial thickness and mass. No left ventricular mass or thrombus is seen. The left ventricular systolic function is reduced. The LVEF as measured by biplane volume is 46%. The diastolic function is abnormal. There is grade I (mild) diastolic dysfunction. The anteroseptal and inferoseptal enamorado are akinetic. Right Ventricle The right ventricle is normal in size. The right ventricular systolic function is normal. The spectral Doppler envelope of TR is not adequate for calculating the right ventricular systolic pressure (RVSP). Based upon other 2D and Doppler features, the RVSP is probably normal or at most mildly elevated. Left Atrium The left atrial size is mildly increased with an indexed volume of 35-41 mL/m2. The interatrial septum is intact with no evidence for an atrial septal defect. Right Atrium The right atrium is dilated by visual assessment. Aortic Valve The aortic valve appears to be trileaflet. There is no valvular regurgitation. There is no hemodynamically significant valvular aortic stenosis. Mitral Valve The mitral valve leaflets are normal in appearance with no evidence of mitral valve prolapse. There is mild mitral regurgitation. There is no mitral stenosis. Tricuspid Valve The tricuspid valve is normal in appearance. There is trace tricuspid regurgitation. There is no tricuspid stenosis. Pulmonic Valve The pulmonic valve is grossly normal. There is mild pulmonic regurgitation. There isno pulmonic stenosis. Great Vessels The aortic root is normal in size. The sinus of Valsalva (aortic root) diameter is 35mm by leading edge to leading edge method. The main pulmonary artery is normal in size. IVC/SVC Based on the IVC size and respiratory variation, the estimated right atrial pressure is 3mmHg. Pericardium No pericardial effusion. 02/2023 Stress test 04/2020 heart cath (per cardiology note) Cardiac Catherization 04/30/2020 -Left Main artery normal [...] provides no antegrade flow to the LAD Physical Exam Airway Mallampati: II Mouth opening: normal TM distance: >3 FB Neck ROM: full Cardiovascular Dental (+) upper dentures Pulmonary Neurological Skin Musculoskeletal Extremities Anesthesia Plan ASA 3 Plan was reviewed with: AEGIS CONSOLE OPERATOR TRACK Anesthesia technique(s) discussed with the patient/family: general Anesthesia plan agreed upon was: general Comment: OSCAR Phone Screen. Discussed with Dr. Ramírez. Reached out to EMMY Paul via [employer] chat and patient is to continue asa/plavix and hold eliquis for 72 hours prior to surgery. Anesthetic plan and risks discussed with patient. Jael Lazo MD [1] Past Medical History: Diagnosis Date Abnormal ECG Aneurysm ([facility]) 05/10/2025 Asthma Atrial fibrillation ([facility]) CHF (congestive heart failure) ([facility]) 2002 COPD (chronic obstructive pulmonary disease) ([facility]) Coronary artery disease 2001 Gastroesophageal reflux disease without esophagitis Headache 04/26/2025 Hypercholesteremia Hypertension Low back pain 2019 GA (myocardial infarction) ([facility]) Obesity 2019 Obstructive sleep apnea (adult) (pediatric) CORNELIA on CPAP Old myocardial infarction History of myocardial infarction Pulmonary arterial hypertension ([facility]) 2017 Radiculopathy 2019 Restless leg syndrome Vertebral compression fracture ([facility]) 05/26/2022 [2] Family History Problem Relation Name Age of Onset Coronary artery disease Mother Coronary artery disease Father Migraines Sister Kait Reese Anesthesia problems Neg Hx Malig Hyperthermia Neg Hx [3] Social History Tobacco Use Smoking status: Former Current packs/day: 0.00 Average packs/day: 2.0 packs/day for 63.1 years (126.2 ttl pk-yrs) Types: Cigarettes Start date: 11/26/1959 Quit date: 12/2022 Years since quittin.4 Smokeless tobacco: Never Vaping Use Vaping status: Never Used Substance Use Topics Alcohol use: Never Drug use: Never [4] Past Surgical History: Procedure Laterality Date ABLATION OF DYSRHYTHMIC FOCUS AORTIC VALVE REPLACEMENT BILIARY DRAINAGE N/A Atrial Cardioversion from [employer] CARDIAC CATHETERIZATION CAROTID STENT CATH STENT PLACEMENT/ CATH PLACEMENT OF STENT N/A Cath Stent Placement from [employer] COLON SURGERY N/A Colon Surgery from [employer] CORONARY ANGIOPLASTY CORONARY ARTERY BYPASS GRAFT N/A CABG from [employer]. CORONARY STENT PLACEMENT HYSTERECTOMY N/A Hysterectomy from [employer] KNEE ARTHROPLASTY 2011 TOTAL KNEE ARTHROPLASTY Bilateral Knee Replacement from [employer] [5] Allergies Allergen Reactions Diphenhydramine Anaphylaxis, Hives, Itching and Rash Isosorbide Headache Penicillins Hives, Shortness of breath, Itching and Rash Tolerated ceftriaxone for 5 days Codeine Hives, Itching, Nausea And Vomiting and Rash Ativan [Lorazepam] Other - please document in the comment field states it makes me crazy and antsy , paradoxical reaction Diazepam Other - please document in the comment field states it makes me crazy and antsy , paradoxical reaction [6] Current Outpatient Medications: albuterol, Inhale 2 puffs every 4 hours as needed. aspirin, Take 1 tablet by mouth daily. azelastine, bisoprolol, Take 1 tablet by mouth daily. budesonide, Take 2 mL by nebulization daily as needed. Rinse mouth with water after use to reduce aftertaste and incidence of candidiasis. Do not swallow. clopidogrel, Take 1 tablet by mouth daily. doxycycline, Take 1 tablet by mouth 2 times a day. for 7 days Eliquis, TAKE 1 TABLET BY MOUTH TWO TIMES A DAY empagliflozin, Take 1 tablet by mouth daily. escitalopram, Take 1 tablet by mouth daily. Evolocumab, Inject 1 mL under the skin every 14 days. famotidine, Take 1 tablet by mouth 2 times a day as needed. Fasenra Pen, Inject 1 mL under the skin every 56 days. fluticasone, Administer 1 spray into each nostril daily. fluticasone-salmeterol, Inhale 1 puff 2 times a day. Rinse mouth with water after use to reduce aftertaste and incidence of candidiasis. Do not swallow. gabapentin, TAKE 1 CAPSULE BY MOUTH IN THE AFTERNOON AND TAKE 1 OR 2 CAPSULES AT BEDTIME Gemtesa, Take 75 mg by mouth daily. ipratropium-albuterol, Take 3 mL by nebulization every 6 hours as needed. levoFLOXacin, montelukast, Take 1 tablet by mouth nightly. omalizumab, every 28 days. (Patient not taking: Reported on 06/10/2025) pantoprazole, Take 1 tablet by mouth daily before breakfast. Do not crush, chew, or split. rOPINIRole, Take 1 tablet by mouth 3 times a day. 1 tab in the morning, 1 tab in the evening, 1 tabnightly (Patient not taking: Reported on 06/10/2025) temazepam, Take 1 capsule by mouth nightly. traZODone, Take 1 tablet by mouth nightly. documented in this encounter Plan of Treatment Upcoming Encounters Date Type Department Care Team (Latest Contact Info) Description 08/31/2025 1:00 PM EDT Pre-Admission Testing [place] [facility] [address] [place] [address] 09/09/2025 10:15 AM EDT Appointment P[facility] A Interventional Radiology [address] [place] [address] documented as of this encounter Procedures Procedure Name Priority Date/Time Associated Diagnosis Comments [place] AN ELECTIVE ENDOTRACHEAL AIRWAY Routine 06/22/2025 8:25 AM EDT PB ANESTHESIA NON-TIMED PROCEDURE PLACEHOLDER Routine 06/22/2025 8:15 AM EDT documented in this encounter Results * WY AN ELECTIVE ENDOTRACHEAL AIRWAY (06/22/2025 8:25 AM EDT) Narrative Nick Duke CRNA - 06/22/2025 8:25 AM EDT Nick Duke CRNA 06/22/2025 8:47 AM Airway Date/Time: 06/22/2025 8:25 AM Reason: elective Airway not difficult General Information and Staff Patient location during procedure: [place] AEGIS CONSOLE OPERATOR TRACK: Nick Duke CRNA Performed: JOSE Patient Condition Indications for airway management: anesthesia Patient position: sniffing Final Airway Details Final airway type: endotracheal airway Successful airway: ETT Cuffed: yes Successful intubation technique: direct laryngoscopy Adjuncts used in placement: intubating stylet Endotracheal tube insertion site: oral Blade: Pineda Blade size: #2 ETT size (mm): 7.0 Cormack-Lehane Classification: grade I - full view of glottis Placement verified by: chest auscultation and capnometry Cuff volume (mL): 6 Measured from: lips ETT to lips (cm): 20 us Jael Lazo MD ANESTHESIA ORDERABLES Final R esult * PB ANESTHESIA NON-TIMED PROCEDURE PLACEHOLDER (06/22/2025 8:15 AM EDT) Narrative Nick Duke CRNA - 06/22/2025 8:15 AM EDT Nick Duke CRNA 06/22/2025 9:59 AM Arterial Line: Date/Time: 06/22/2025 8:15 AM An arterial line was placed. Procedure performed using ultrasound guidance in the OR for the following indication(s): continuous blood pressure monitoring. A 20 gauge (size), 1 and 3/4 inch (length), Arrow (type) catheter was placed into the Left radial artery and secured by tape. Seldinger technique used Events: patient tolerated procedure well with no complications. Staffing Performed: [employer] CONSOLE OPERATOR TRACK [employer] CON[employer]LE OPERATOR TRACK: Nick Duke, [employer] CONSOLE OPERATOR TRACK Jael Lazo MD ANESTHESIA ORDERABLES Final R esult documented in this encounter Visit Diagnoses Not on filedocumented in this encounter Administered Medications Inactive Administered Medications - up to 3 most recent administrations Medication Order MAR Action Action Date Dose Rate Site dexamethasone (Decadron) injection Intravenous, As needed, Starting on Sun06/22/25 at 0830, Until Sun06/22/25 at 1130, Routine, Anesthesia Intraprocedure Given 06/22/2025 8:30 AM EDT 4 mg dexmedetomidine (Precedex) 100 MCG/ML concentrated solution Intravenous, As needed, Starting on Sun06/22/25 at 0955, Until Sun06/22/25 at 1130, Routine, Anesthesia Intraprocedure Given 06/22/2025 10:52 AM EDT 8 mcg Given 06/22/2025 10:30 AM EDT 8 mcg Given 06/22/2025 9:55 AM EDT 8 mcg ePHEDrine Sulfate (Akovaz) injection Intravenous, As needed, Starting on Sun06/22/25 at 0927, Until Sun06/22/25 at 1130, Routine, Anesthesia Intraprocedure Given 06/22/2025 9:27 AM EDT 5 m g esmolol (Brevibloc) injection Intravenous, As needed, Starting on Sun06/22/25 at 0822, Until Sun06/22/25 at 1130, Routine, Anesthesia Intraprocedure Given 06/22/2025 8:22 AM EDT 2,121 mcg fentaNYL (Sublimaze) injection Intravenous, As needed, Starting on Sun06/22/25 at 0814, Until Sun06/22/25 at 1130, Routine, Anesthesia Intraprocedure Given 06/22/2025 10:06 AM EDT 25 mcg Given 06/22/2025 9:52 AM EDT 25 mcg Given 06/22/2025 8:55 AM EDT 25 mcg glycopyrrolate (Robinul) injection Intravenous, As needed, Starting on Sun06/22/25 at 0935, Until Sun06/22/25 at 1130, Routine, Anesthesia Intraprocedure Given 06/22/2025 9:35 AM EDT 0.2 mg heparin (porcine) injection Intravenous, As needed, Starting on Sun06/22/25 at 0912, Until Sun06/22/25 at 1130, Routine, Anesthesia Intraprocedure Given 06/22/2025 10:33 AM EDT 1,000 Units Given 06/22/2025 9:35 AM EDT 2,000 Units Given 06/22/2025 9:12 AM EDT 3,000 Units hydrALAZINE (Apresoline) injection Intravenous, As needed, Starting on Sun06/22/25 at 1054, Until Sun06/22/25 at 1130, Routine, Anesthesia Intraprocedure Given 06/22/2025 10:54 AM EDT 10 mg lactated Ringer's infusion Intravenous, Continuous PRN, Starting on Sun06/22/25 at 0810, Until Sun06/22/25 at 1130, Routine New Bag 06/22/2025 8:10 AM EDT Lidocaine HCl prefilled syringe Buccal, As needed, Starting on Sun06/22/25 at 0823, Anesthesia Intraprocedure Given 06/22/2025 8:23 AM EDT 50 mg ondansetron (Zofran) injection Intravenous, As needed, Starting on Sun06/22/25 at 1006, Until Sun06/22/25 at 1130, Routine, Anesthesia Intraprocedure Given 06/22/2025 10:06 AM EDT 4 mg propofol (Diprivan) injection Intravenous, As needed, Starting on Sun06/22/25 at 0823, Until Sun06/22/25 at 1130, Routine, Anesthesia Intraprocedure Given 06/22/2025 10:55 AM EDT 30 0 mg Given 06/22/2025 10:30 AM EDT 50 mg Given 06/22/2025 9:55 AM EDT 50 mg rocuronium (ZeMuron) injection Intravenous, As needed, Starting on Sun06/22/25 at 0823, Until Sun06/22/25 at 1130, Routine, Anesthesia Intraprocedure Given 06/22/2025 10:31 AM EDT 10 mg Given 06/22/2025 10:04 AM EDT 20 mg Given 06/22/2025 8:23 AM EDT 70 mg sugammadex (Bridion) 100 MG/ML injection Intravenous, As needed, Starting on Sun06/22/25 at 1105, Until Sun06/22/25 at 1130, Routine, Anesthesia Intraprocedure Given 06/22/2025 11:05 AM EDT 200 mg documented in this encounter Additional Health Concerns Assessment Noted Time A fall risk assessment has been complete d for the patient 06/02/2025 10:25 AM EDT A Body Mass Index follow-up plan has been documented for the patient 06/23/2025 10:11 AM EDT documented as of this encounter Care Teams Chair Post Machine Operator Relationship Specialty Start Date End Date Michael Baez MD [address] [place] [id number] PCP - General 04/08/21 Acacia Scott APRN [address] [place] [phone] Nurse Practitioner Cardiology 03/27/22 Virgilio Nguyễn MD [address] [place] [id number] Referring Physician 10/07/24 documented as of this encounter
--- OUTSIDE RECORDS SUMMARY | 2025-06-22 12:24 | XMS_ITS | Encounter Summary ---
Author Organization [facility] Address [address] [id number] Care Team Providers Care Hoisting Pile Driving Engineer Name Role Phone Michael Baez MD Primary Care Provider [phone] Acacia Scott PHYSICS PROFESSOR Unavailable [phone] Virgilio Nguyễn MD Unavailable [phone] Reason for Referral * Imaging (Routine) - Closed Specialty Diagnoses / Procedures Referred By Terrence prasad Referred To Contact Radiology Diagnoses Aneurysm (CMS/HCC) Procedures IR Arterial Embolization David Mccoy MD [address] [address] Phone: tel: fax: Referral ID Status Reason Start Date Expiration Date Visits Re quested Visits Authorized [id number] Closed 06/02/2025 12/02/2026 1 1 Reason for Visit * Auth/Cert (Routine) Specialty Diagnoses / Procedures Referred By Terrence prasad Referred To Contact Diagnoses Cerebral aneurysm David Mccoy MD [address] [address] Phone: tel: fax: P[facility] A Inpatient [address] [place] [address] Phone: tel: Referral ID Status Reason Start Date Expiration Date Visits Re quested Visits Authorized [id number] 1 1 Encounter Details Date Type Department Care Team ([facility] st Contact Info) Description 06/22/2025 12:24 PM EDT - 06/23/2025 11:09 AM EDT Hospital Encounter [facility] Inpatient [address] [place] [address] David Mccoy MD [address] [place] [address] Marifer Guadarrama RN CH-VASCULAR & INTERVENTIONAL RADIOLOGY Cerebral aneurysm (Primary Dx); Aneurysm (CMS/HCC); Pre-op exam Discharge Disposition: Home or Self Care Social [...] any time in the past 12 m [place], were you homeless or living in a residential (including now)? 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-FISHER HOOP NET) to steady your nerves or to get [...] Sign Reading Time Taken Comments Blood Pressure 111/68 06/23/2025 10:00 AM EDT Pulse 60 06/23/2025 10:00 AM EDT Temperature 36.8 C (98.2 F) 06/23/2025 8:00 AM EDT Respiratory Rate 13 06/23/2025 10:00 AM EDT Oxygen Saturation 95% 06/23/2025 10:00 AM EDT Inhaled Oxygen Concentration - - Weight 71.3 kg (157 lb 3 oz) 06/23/2025 6:00 AM EDT Height 162.6 cm (5' 4 ) 06/22/2025 7:20 AM EDT Body Mass Index 26.98 06/22/2025 7:20 AM EDT documented in this encounter Functional Status * Calculated C-SSRS Risk Score (Lifetime/Recent) Answer Date of Assessment Author No Risk Indicated 06/23/2025 8:00 AM EDT Debra Cortes RN * Question Answer Date of Assessment Author 1. Wish to be (Past 1 Month) No 025 8:00 AM RUPALT Armando Cortes RN 2. Non-Specific Active Suici eri Thoughts (Past 1 Month) No 06/23/2025 8:00 AM EDT Dorys Cortes RN 6. Suicidal Behavior (Lifetime) No 8:00 AM EDT Armando Cortes RN documented as of this encounter Discharge Instructions * Discharge Instructions* Marifer Guadarrama RN - 06/22/2025 12:33 PM EDT Following CEREBRAL ANGIOGRAM You may resume your normal diet immediately after the exam. You will be able to resume all other light non-strenuous activities 8-12 hours after the exam. Report to your physician immediately if you experience any of the following after your procedure: Weakness or numbness in the muscles of your face, arms, or legs Slurred speech Vision problems Signs of infection at the catheter site Dizziness Chest pain Difficulty breathing Rash Difficulty in using the extremity where the puncture/incision was made After discharge, take it easy for the next 72 hours. The day you come home from your procedure, you are instructed to rest with as little walking as necessary. You should avoid going up and down stairs. Do not do any strenuous activity or lift anything heavier than a carton of milk for 72 hours after the procedure. Try not to go up and down stairs too frequently. You should not drive for at least 24 hours. There will be a dressing over your groin. You may remove it after 24 hours, but keep the area cleanand dry. Although you may shower with no dressing on your groin after 24 hours, please place a Band-Aid at the puncture site after showering. Pat site dry. Do Not Rub. No tub baths, swimming or submerging in water for the next week. It is normal to have a little more discomfort in your groin the day after the procedure. You may have slightly more bruising at the puncture site. This is normal. You may take acetaminophen in regular or extra strength to minimize the discomfort. If you should develop bleeding at your groin site, apply direct pressure for 15 to 20 minutes. Oncebleeding stop lay flat for 2 hours. If bleeding persists continue to hold pressure and call 911 or go to the emergency department WHEN TO CALL YOUR HEALTHCARE PROVIDER: Severe pain near the groin site Fainting or feeling lightheaded Trouble breathing A fever of 100.4F (38C) or higher, or as directed by your healthcare provider Feeling weak Foot that is cold to touch on the same side of the groin stick IR Groin or Wrist Arterial Access for Neuro Cases Patient Education Your recent procedure was done by putting a ???catheter?? (a tube) through a major vessel (called an ???artery?? ) in one or both of your arms or legs. The vessel and the skin and muscles around thevessel will take time to heal. It is expected that some healing will happen with each passing day. This information tells you what you can normally expect to happen after a procedure done through an artery. Hospital Recovery After the procedure, you may be taken to the recovery room for observation or returned to your hospital room. If the catheter was put in an artery (blood vessel) in your arm, you will have a tight band around your wrist to keep the site from bleeding for 1 to 2 hours. The nurse will remove air from a balloonin the band every few minutes, so the band will get less and less tight until it is safe to remove it. The healthcare team should not check blood pressure, draw blood, or start an IV in the affected arm until at least one hour after the band is removed. The nurse will check your wrist site often tocheck for bleeding, good circulation, and sensation in your fingertips. Your vital signs will be checked often. The nurse will instruct you to keep the wrist straight and avoid lifting or pushing with the affected arm. You should limit movement in the affected arm for 6 hours after the procedure. If the catheter was put in an artery (blood vessel) in your groin or leg, you must lie flat in bed for several hours after the procedure. The nurse will check your affected leg often to look for bleeding, good circulation, and sensation in your feet and toes. Your vital signs will be checked often.The nurse will instruct you to keep the leg straight and avoid lifting or pushing with the affectedleg. You should limit movement in the affected leg for 6 hours after the procedure. Tell your nurse right away if you feel any chest pain or tightness, or any other pain, as well as any feelings of warmth, bleeding, or pain at the insertion site. Bed rest may vary from 2 to 6 hours depending on your specific condition. If your healthcare provider placed a closure device in the catheter insertion site, your bed rest may be shorter. You may feel the urge to urinate often because of the effects of the contrast dye and increased fluids. You will need to use a bedpan or urinal while on bed rest so that your affected leg will not bebent. You may get out of bed after the specified period of bed rest has been completed. The nurse will help you the first time you get up. The nurse may also check your blood pressure while you are lying in bed, sitting, and standing. You should move slowly when getting up to prevent any dizziness from the long period of bed rest. You may be given pain medicine for pain or discomfort at the insertion site or from having to lie flat and still for a long time. You will be encouraged to drink water and other fluids to help flush the contrast dye from your body. You may go back to your usual diet after the procedure unless your healthcare provider decides otherwise. You may be able to go home the same day. Or you may spend the night in the hospital after your procedure. Your stay may be longer. It depends on your condition and the results of your procedure. You will get detailed instructions for your discharge and recovery period. At Home Activity & Site Care Arrange to have someone to drive you home from the hospital. Once at home, monitor the insertion site to check for bleeding, unusual pain, swelling, abnormal discoloration, or temperature change. A small bruise is normal. Soreness in the area is normal and should improve over time. Tell your health are team if you notice oozing of blood from the site that cannot be contained with a small dressingor band-aid, or does not stop after holding a clean washcloth over the site for 2 minutes. Seek immediate attention if you begin to experience bleeding that is enough to soak a washcloth even if you apply pressure for 2 minutes. This could be a medical emergency and you may need to call 9--. It will be important to keep the insertion site clean and dry. If the dressing remains dry, withoutnew drainage soaking through, you can leave it in place for 24 hours. After 48 hours, let the dressing get wet in the shower. Then, peel it off. Clean the site gently with warm, soapy water on a washcloth. Look at the site. Let your doctor know if the skin around it looks red or swollen, or if there is yellow drainage or foul smell coming from the site. Pat the site dry with a clean cloth and cover it with a new bandage that completely covers the site on all four sides (for example, a square band-aid). Repeat these steps after each shower until the site is healed. Do not use a bathtub or hot tub or go swimming for at least 48 hours. Do not soak in water until the skin has completely healed. If your healthcare provider used a closure device at your insertion site, you will be given specific information regarding the type of closure device that was used and how to take care of the site. There will be a small knot, or lump, under the skin at the site. This is normal. The knot should slowly disappear over a few weeks. Do not lift anything heavy and limit how many stairs you climb. Avoid strenuous activity for 2 weeks. This includes lifting, tugging, or pulling objects weighing more than 10 pounds, or bending/squatting often. Once your soreness improves, you may take a light walk and begin to return to normal activity. Pace yourself by starting with a small amount of activity and increasing it a little each day. Do not drive the day of the procedure. Unless you have other health symptoms that would keep you from driving safely, you can resume driving within 24 hours after the procedure. Please note, if you are taking narcotic pain medication or other medicines that make you sleepy or slow to react, you should not drive until 24 hours after your last dose of medication. Tell your healthcare team if you have any of the following: Confusion, changes in your balance, or changes in your vision Fever or chills Increased pain, redness, swelling, bleeding, or other drainage from the insertion site Coolness, numbness or tingling, or other changes in the affected arm or leg Chest pain or pressure, nausea or vomiting, profuse sweating, dizziness, or fainting Your healthcare provider may give you other instructions after the procedure. It depends on your particular situation. Follow-up information: The Neurology Interventional Radiologist who performed your procedure will decide if a follow-up appointment in the clinic is needed. You will be contacted by the scheduling department to book any necessary appointments. You may reach out to the clinic if you have any concerns that you feel are related to your procedure. [facility] Clinic location and phone number: [facility] Department of Neurosurgery [address] [place] [address], First floor, [address] [place] [address] When to seek emergency help: ? Please go to the nearest Emergency Room or dial 911 if: You have heavy bleeding from the procedure site. You need emergency medical help for any reason. When to call the [facility]: Call if you have questions or concerns about the Neurology Interventional Radiology procedure. How to call the [facility]: Sunday-Sunday, 8 a.m.-4:30 p.m., call the [facility] at [phone]. After hours, weekends, and holidays, call [phone]. Ask for the Neurosurgery or RISA Resident oncall. documented in this encounter Medications at Time of Discharge acetaminophen (Tylenol 8 Hour) 650 MG ER tablet Take 1 tablet by mouth every 8 hours as needed for mild pain. Do not crush, chew, or split. albuterol 108 (90 Base) MCG/ACT inhaler Inhale 2 puffs every 4 hours as needed. 02/05/2020 azelastine (Astelin) 0.1 % nasal spray 07/04/2024 bisoprolol (Zebeta) 5 MG tablet Take 1 tablet by mouth daily. Budeson-Glycopyrr ol-Formoterol (Breztri Aerosphere) 160-9-4.8 MCG/ACT aerosol Inhale 2 puffs 2 times a day. budesonide (Pulmicort) 0.5 MG/2ML nebulizer solution Take 2 mL by nebulization 2 times a day. Rinse mouth with water after use to reduce aftertaste and incidence of candidiasis. Do not swallow. cetirizine (ZyrTEC) 10 MG tablet 1 tablet. 01/30/2025 clopidogrel (Plavix) 75 MG tablet Take 1 tablet by mouth daily. Eliquis 5 MG tablet TAKE 1 TABLET BY MOUTH TWO TIMES A DAY 180 tablet 3 01/20/2025 empagliflozin (Jardiance) 10 MG Take 1 tablet by mouth daily. 30 tablet 05/07/2025 escitalopram (Lexapro) 20 MG tablet Take 1 tablet by mouth daily. Evolocumab (Repatha) 140 MG/ML solution auto-injector autoinjector Inject 1 mL under the skin every 14 days. 6 mL 1 05/07/2025 famotidine (Pepcid) 20 MG tablet Take 1 tablet by mouth 2 times a day as needed. 08/15/2021 Fasenra Pen 30 MG/ML solution auto-injector injection Inject 1 mL under the skin every 56 days. 03/13/2024 fluticasone (Flonase) 50 MCG/ACT nasal spray Administer 1 spray into each nostril daily. 11/06/2022 gabapentin (Neurontin) 100 MG capsule TAKE 1 CAPSULE BY MOUTH IN THE AFTERNOON AND TAKE 1 OR 2 CAPSULES AT BEDTIME 05/12/2025 Gemtesa 75 MG tablet Take 75 mg by mouth daily. ipratropium-albut willow (Combivent Respimat) 20-100 MCG/ACT inhaler Inhale 1 puff 4 times a day as needed for wheezing or shortness of breath. montelukast (Singulair) 10 MG tablet Take 1 tablet by mouth nightly. pantoprazole (Protonix) 40 MG EC tablet Take 1 tablet by mouth daily before breakfast. Do not crush, chew, or split. rOPINIRole (Requip) 1 MG tablet Take 1 tablet by mouth 3 times a day. 1 tab in the morning, 1 tab in the evening, 1 tab nightly 08/15/2021 temazepam (Restoril) 15 MG capsule Take 1 capsule by mouth nightly. 08/14/2022 traZODone (Desyrel) 50 MG tablet Take 1 tablet by mouth nightly. aspirin 81 MG EC tablet Take 4 tablets by mouth daily for 2 days. 8 tablet 06/23/2025 5 documented as of this encounter Miscellaneous Notes * Care Plan - Armando Cortes RN - 06/23/2025 9:54 AM EDT Problem: Adult Inpatient Plan of Care Goal: Plan of Care Review Outcome: Ongoing, Progressing Flowsheets Taken 06/23/2025 0949 by Armando Cortes RN Progress: improving Taken 06/22/20252334 by Ritchie Porras RN Plan of Care Reviewed With: patient Goal: Patient-Specific Goal (Individualized) Outcome: Ongoing, Progressing Flowsheets (Taken 06/23/2025799) Patient/Family-Specific Goals (Include Timeframe): Pt will be Discharged today Individualized Care Needs: Pt will have adaquate pain control with eMAR meds today Anxieties, Fears or Concerns: pain Goal: Absence of Hospital-Acquired Illness or Injury Outcome: Ongoing, Progressing Intervention: Identify and Manage Fall Risk Flowsheets (Taken 06/23/2025799) Safety Promotion/Fall Prevention: activity supervised assistive device/personal items within reach clutter-free environment maintained fall prevention program maintained lighting adjusted mobility aid in reach nonskid shoes/slippers when out of bed room organization consistent safety round/check completed toileting scheduled Intervention: Prevent Skin Injury Flowsheets (Taken 06/23/2025799) Body Position: right turned foot of bed elevated heels elevated legs elevated lower extremity elevated neutral body alignment neutral head position side-lying 30 degrees upper extremity elevated education provided Skin Protection: pulse oximeter probe site changed silicone foam dressing in place skin sealant/moisture barrier applied transparent dressing maintained incontinence pads utilized Intervention: Prevent and Manage VTE (Venous Thromboembolism) Risk Flowsheets (Taken 06/23/2025799) VTE Prevention/Management: bilateral lower extremity SCDs (sequential compression devices) on previous patient education reinforced education provided Intervention: Prevent Infection Flowsheets (Taken 06/22/20252334 by Ritchie Porras RN) Infection Prevention: environmental surveillance performed rest/sleep promoted personal protective equipment utilized hand hygiene promoted Goal: Optimal Comfort and Wellbeing Outcome: Ongoing, Progressing Intervention: Monitor Pain and Promote Comfort Flowsheets (Taken 06/23/2025799) Pain Management Interventions: medication (see MAR) ieycox-mzx-bppqv dosing utilized awakened for pain meds per patient request ambulation/increased activity biofeedback utilized breathing exercises care clustered diversional activity provided emotional support food guided imagery music pain management plan reviewed with patient/caregiver pillow support provided position adjusted prescribed exercises encouraged quiet environment facilitated relaxation techniques promoted rest Intervention: Provide Person-Centered Care Flowsheets (Taken 06/23/2025948) Trust Relationship/Rapport: care explained choices provided emotional support provided empathic listening provided questions answered questions encouraged reassurance provided thoughts/feelings acknowledged Goal: Readiness for Transition of Care Outcome: Ongoing, Progressing Intervention: Mutually Develop Transition Plan Flowsheets Taken 06/23/2025948 by Armando Cortes media production operator Facility/Level of Care Needs: 1-Home or Self Care Current Outpatient/Agency/Support Group: (clinic follow-up) other (see comments) Outpatient/Agency/Support Group Needs: (clinic follow-up) other (see comments) Current Discharge Risk: (none) other (see comments) Concerns to be Addressed: discharge planning Patient/Family Anticipated Services at Transition: outsole caser Offered/Gave Vendor List: no Taken 06/22/2025 6634 by Ritchie Porras RN Equipment Needed After Discharge: none Equipment Currently Used at Home: none Anticipated Changes Related to Illness: none Concerns Comments: none Transportation Anticipated: family or friend will provide Transportation Concerns: none Readmission Within the Last 30 Days: no previous admission in last 30 days Patient's Choice of Community Agency(s): n/a Patient/Family Anticipates Transition to: home Problem: Neurovascular Catheterization (Diagnostic/Interventional) Goal: Absence of Bleeding Outcome: Ongoing, Progressing Intervention: Monitor and Manage Bleeding Flowsheets (Taken 06/23/2025948) Bleeding Precautions: blood pressure closely monitored coagulation study results reviewed gentle oral care promoted monitored for signs of bleeding Hemostasis Management: (none needed) other (see comments) Bleeding Management: affected area elevated dressing monitored movement restricted pressure dressing applied Goal: Optimal Cerebral Tissue Perfusion Outcome: Ongoing, Progressing Intervention: Protect and Optimize Cerebral Perfusion Flowsheets (Taken 06/23/2025948) Stabilization Measures: airway opened legs elevated Fluid/Electrolyte Management: fluids provided Sensory Stimulation Regulation: auditory stimulation provided care clustered lighting decreased music on quiet environment promoted television on visual stimulation provided visual stimulation minimized auditory stimulation minimized Cerebral Perfusion Promotion: blood pressure monitored normothermia promoted Goal: Absence of Contrast-Induced Injury Outcome: Ongoing, Progressing Intervention: Prevent Systemic Contrast Dye Reaction Flowsheets Taken 06/23/2025948 Stabilization Measures: airway opened legs elevated Taken 06/23/2025799 Head of Bed (HOB) Positioning: HOB at 60-90 degrees Goal: Absence of Embolism Signs and Symptoms Outcome: Ongoing, Progressing Intervention: Prevent or Manage Embolism Flowsheets (Taken 06/23/2025799) VTE Prevention/Management: bilateral lower extremity SCDs (sequential compression devices) on previous patient education reinforced education provided Goal: Anesthesia/Sedation Recovery Outcome: Ongoing, Progressing Intervention: Optimize Anesthesia Recovery Flowsheets Taken 06/23/2025948 Stabilization Measures: airway opened legs elevated Patient Tolerance (IS): good Administration (IS): instruction provided, initial instruction provided, follow-up mouthpiece utilized proper technique demonstrated previous patient education reinforced education provided Reorientation Measures: calendar in view familiar social contact encouraged glasses use encouraged reorientation provided Level Incentive Spirometer (mL): 1000 Incentive Spirometer Predicted Level (mL): 1000 Number of Repetitions (IS): 10 Taken 06/23/2025799 Safety Promotion/Fall Prevention: activity supervised assistive device/personal items within reach clutter-free environment maintained fall prevention program maintained lighting adjusted mobility aid in reach nonskid shoes/slippers when out of bed room organization consistent safety round/check completed toileting scheduled Goal: Optimal Pain Control and Function Outcome: Ongoing, Progressing Intervention: Prevent or Manage Pain Flowsheets Taken 06/23/2025948 Complementary Therapy: music therapy provided Diversional Activities: individual [employer] music television tablet Taken 06/23/2025799 Pain Management Interventions: medication (see MAR) grgluo-zgj-cvyvh dosing utilized awakened for pain meds per patient request ambulation/increased activity biofeedback utilized breathing exercises care clustered diversional activity provided emotional support food guided imagery music pain management plan reviewed with patient/caregiver pillow support provided position adjusted prescribed exercises encouraged quiet environment facilitated relaxation techniques promoted rest Goal: Absence of Vascular Access Complication Outcome: Ongoing, Progressing Intervention: Prevent and Manage Access Complications Flowsheets Taken 06/23/2025948 Infection Management: aseptic technique maintained Bleeding Precautions: blood pressure closely monitored coagulation study results reviewed gentle oral care promoted monitored for signs of bleeding Hemostasis Management: (none needed) other (see comments) Taken 06/23/2025799 Activity Management: activity adjusted per tolerance activity encouraged previous patient education reinforced education provided ambulated in room ambulated to bathroom up in chair * Progress Notes - Renaldo Amaya - 06/23/2025 9:22 AM EDT SW met with NS Team to discuss pt POC. Per team, pt is medically ready for d/c. Pt d/c to home address. No CM needs identified. CARSON MejiasW * Discharge Summary - Kylah Alejandra PA - 06/23/2025 8:19 AM EDT NEUROINTERVENTIONAL RADIOLOGY DISCHARGE SUMMARY Hospitalization Admit Date/Time: 06/22/2025 12:24 PM Admitting Attending: David Mccoy Discharge Date: 06/23/25 Discharge Attending Physician: David Mccoy MD PCP name and Address: Michael Baez MD [address] [place] [address] / [facility] [address] Referring provider name and address: David Mccoy MD [address] [facility] [address] [place] [address] Chief Concern, Brief History of Present Illness, and Hospital Course Supriya Andres is a 74 y.o. female who presented to the [facility] on 06/22/2025 for elective procedure. 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 Accordingly, the patient was deemed an appropriate candidate for surgical intervention. Patient proceeded to interventional radiology on06/22/2025 and underwent a cerebral angiogram with treatment of right JONAH A2 segment aneurysm with first stage intracranial stent from right A2-A1. The procedure was tolerated well without any intraoperative or postoperative complications. The patient was subsequently transferred to an intensive care unit for monitoring. The patient did well during their stay in the ICU. SBP was controlled less than 140 mmHg. The right femoral arterial access site has no hematoma, no drainage/bleeding, mild tenderness noted. The patient was seen by the neurosurgery team and it was felt the patient had reached maximal benefit from hospitalization and deemed the patient ready for discharge. On the day of discharge the patient's pain is well controlled with PO pain medicine pain, walking, voiding, tolerating oral intake. The patient was discharged in stable condition home and will follow up with Dr. Sotelo in 4 weeks for stage II embolization. Please continue taking medications as instructed: Today: 325 mg asa and 75 mg Plavix 06/24/25: 325 mg asa and 75 mg Plavix , 06/25/25: 75 mg Plavix and 5 mg Eliquis BID. Surgeries and Procedures Procedures performed in this encounter Procedures Critical Care Medication List . acetaminophen 650 MG ER tablet Commonly known as: Tylenol 8 Hour Take 1 tablet by mouth every 8 hours as needed for mild pain. Do not crush, chew, or split. albuterol 108 (90 Base) MCG/ACT inhaler Inhale 2 puffs every 4 hours as needed. aspirin 81 MG EC tablet Take 1 tablet by mouth daily. azelastine 0.1 % nasal spray Commonly known as: Astelin bisoprolol 5 MG tablet Commonly known as: Zebeta Take 1 tablet by mouth daily. Breztri Aerosphere 160-9-4.8 MCG/ACT aerosol Generic drug: Psomvwj-Aueuattzymj-Wyzeundqvc Inhale 2 puffs 2 times a day. budesonide 0.5 MG/2ML nebulizer solution Commonly known as: Pulmicort Take 2 mL by nebulization 2 times a day. Rinse mouth with water after use to reduce aftertaste and incidence of candidiasis. Do not swallow. clopidogrel 75 MG tablet Commonly known as: Plavix Take 1 tablet by mouth daily. doxycycline 100 MG tablet Commonly known as: Vibra-Tabs Take 1 tablet by mouth 2 times a day. for 7 days Eliquis 5 MG tablet Generic drug: apixaban TAKE 1 TABLET BY MOUTH TWO TIMES A DAY empagliflozin 10 MG Commonly known as: Jardiance Take 1 tablet by mouth daily. escitalopram 20 MG tablet Commonly known as: Lexapro Take 1 tablet by mouth daily. Evolocumab 140 MG/ML solution auto-injector autoinjector Commonly known as: Repatha Inject 1 mL under the skin every 14 days. famotidine 20 MG tablet Commonly known as: Pepcid Take 1 tablet by mouth 2 times a day as needed. Fasenra Pen 30 MG/ML solution auto-injector injection Generic drug: benralizumab Inject 1 mL under the skin every 56 days. fluticasone 50 MCG/ACT nasal spray Commonly known as: Flonase Administer 1 spray into each nostril daily. gabapentin 100 MG capsule Commonly known as: Neurontin TAKE 1 CAPSULE BY MOUTH IN THE AFTERNOON AND TAKE 1 OR 2 CAPSULES AT BEDTIME Gemtesa 75 MG tablet Generic drug: Vibegron Take 75 mg by mouth daily. ipratropium-albuterol 20-100 MCG/ACT inhaler Commonly known as: Combivent Respimat Inhale 1 puff 4 times a day as needed for wheezing or shortness of breath. Ask about: Which instructions should I use? montelukast 10 MG tablet Commonly known as: Singulair Take 1 tablet by mouth nightly. pantoprazole 40 MG EC tablet Commonly known as: Protonix Take 1 tablet by mouth daily before breakfast. Do not crush, chew, or split. rOPINIRole 1 MG tablet Commonly known as: Requip Take 1 tablet by mouth 3 times a day. 1 tab in the morning, 1 tab in the evening, 1 tab nightly temazepam 15 MG capsule Commonly known as: Restoril Take 1 capsule by mouth nightly. traZODone 50 MG tablet Commonly known as: Desyrel Take 1 tablet by mouth nightly. Discharge Diagnosis Medical Problems Active and Resolved Hospital Problems Hospital RLS (restless legs syndrome) (Chronic) PAF (paroxysmal atrial fibrillation) (CMS/HCC) Coronary artery disease involving red cliff coronary artery of red cliff heart without angina pectoris Hypertension Mixed hyperlipidemia Gastroesophageal reflux disease without esophagitis Cerebral aneurysm Overview Signed 06/22/2025 11:51 AM by Daphne Luis APRN, DNP Right JONAH A2 segment aneurysm treated with first stage intracranial stent from right A2-A1 Continue ASA 81 mg and Plavix 75 mg daily (first dose tomrrow) Femoral access, Angioseal SBP<140 COPD (chronic obstructive pulmonary disease) (CMS/HCC) Anxiety Insomnia Abrasion of left cornea RESOLVED: COPD exacerbation (CMS/HCC) Post Discharge Instructions Diet: No Restrictions. Resume regular at home diet. Lifting: No lifting more than 5 lbs for 7 days Activity: Move around as you are able. Wound or Incision Care: Wash your wound with mild soap and water once a day; pat dry; do not rub. Reason to call: feels warm or hot to the touch, is red or dark pink, is tight or swollen and looks shiny, becomes more tender or sore to the touch, wound smells bad and wound is draining pus, bleeding or coming open. Bathing: OK to shower 48 hours after surgery, do not soak wound, do not scrub wound, allow water to wash over wound, pat dry. Do not take a bath for 7 days to allow angio groin site to heal Instructed patient to call if: Temperature is above 101.5. Pain is not relieved by medications. You are throwing up or have diarrhea for more than 24 hours. Please call 911 immediately and go to the ED if you experience severe headache, seizure, new onset neurological change, or loss of consciousness. Medication Instructions: Take Medication exactly as instructed. Do not take any medications that have not been ordered for This means do not take other people's medication, illegal drugs or substances, or even more medication than has been ordered. Please do not take more than 4 gram / 4,000 mg tylenol in 24 hours. Please continue taking: Today: 325 mg asa and 75 mg Plavix 06/24/25: 325 mg asa and 75 mg Plavix 06/25/25: 75 mg Plavix and 5 mg Eliquis BID Outpatient Follow-Up No future appointments. Test Results Pending At Discharge Pending Labs Order Current Status Multi Drug Resistance Test In process Pertinent Physical Exam At Time of Discharge Physical Exam GEN: well developed, no acute distress HEENT: normocephalic, atraumatic, no scleral icterus, oropharynx clear PULM: airways patent, non-labored breathing, normal effort. CV: Regular rate and rhythm ABD: soft, non-tender, non-distended. SKIN: warm and dry. 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 Discharge Disposition/Condition Disposition: Home Condition: Stable (s/sx potential problems absent or manageable) I spent >30 minutes of patient care and instruction time in preparation for this discharge. Cosigned by David Mccoy MD at 06/25/2025 10:33 AM EDT Associated attestation - David Mccoy MD - 06/25/2025 10:33 AM EDT The patient was seen only by Advanced Practice Provider ([facility]), and care was reviewed with me. * Care Plan - Ritchie Porras RN - 06/22/2025 11:39 PM EDT Problem: Fall Injury Risk Goal: Absence of Fall and Fall-Related Injury Outcome: Ongoing, Progressing Intervention: Identify and Manage Contributors Flowsheets (Taken 06/22/20252334) Medication Review/Management: medications reviewed high-risk medications identified Self-Care Promotion: independence encouraged Intervention: Promote Injury-Free Environment Flowsheets (Taken 06/22/20251999 by Sandy Leon) Safety Promotion/Fall Prevention: activity supervised safety round/check completed Problem: Adult Inpatient Plan of Care Goal: Plan of Care Review Outcome: Ongoing, Progressing Flowsheets (Taken 06/22/20252334) Progress: improving Plan of Care Reviewed With: patient Goal: Patient-Specific Goal (Individualized) Outcome: Ongoing, Progressing Flowsheets Taken 06/22/20251999 by Ritchie Porras RN Patient/Family-Specific Goals (Include Timeframe): Patient will have systolic BP less than 140 for duration of this shift, as ordered by medical team Individualized Care Needs: Patient will have systolic BP within prescribed parameters Taken 06/22/2025 1400 by Marianna Bone Anxieties, Fears or Concerns: none Goal: Absence of Hospital-Acquired Illness or Injury Outcome: Ongoing, Progressing Intervention: Identify and Manage Fall Risk Flowsheets (Taken 06/22/20251999 by Sandy Leon) Safety Promotion/Fall Prevention: activity supervised safety round/check completed Intervention: Prevent Skin Injury Flowsheets Taken 06/22/20252334 by Ritchie Porras RN Skin Protection: hydrocolloids used incontinence pads utilized Taken 06/22/2025 2000 by Sandy Leon Body Position: weight shifting Intervention: Prevent and Manage VTE (Venous Thromboembolism) Risk Flowsheets (Taken 06/22/20251999 by Sandy Leon) VTE Prevention/Management: bilateral lower extremity SCDs (sequential compression devices) on Intervention: Prevent Infection Flowsheets (Taken 06/22/2025 2335) Infection Prevention: environmental surveillance performed rest/sleep promoted personal protective equipment utilized hand hygiene promoted Goal: Optimal Comfort and Wellbeing Outcome: Ongoing, Progressing Intervention: Monitor Pain and Promote Comfort Flowsheets (Taken 06/22/2025 1245 by Marianna Bone) Pain Management Interventions: position adjusted Intervention: Provide Person-Centered Care Flowsheets (Taken 06/22/2025 233) Trust Relationship/Rapport: choices provided care explained reassurance provided Goal: Readiness for Transition of Care Outcome: Ongoing, Progressing Intervention: Mutually Develop Transition Plan Flowsheets (Taken 06/22/2025 233) Discharge Facility/Level of Care Needs: 1-Home or Self Care Equipment Needed After Discharge: none Equipment Currently Used at Home: none Current Outpatient/Agency/Support Group: (none) other (see comments) Anticipated Changes Related to Illness: none Concerns Comments: none Transportation Anticipated: family or friend will provide Outpatient/Agency/Support Group Needs: (none) other (see comments) Transportation Concerns: none Current Discharge Risk: (none) other (see comments) Concerns to be Addressed: no discharge needs identified Readmission Within the Last 30 Days: no previous admission in last 30 days Patient/Family Anticipated Services at Transition: none Patient's Choice of Community Agency(s): n/a Patient/Family Anticipates Transition to: home Offered/Gave Vendor List: no * Care Plan - Marianna Bone - 06/22/2025 2:10 PM EDT Problem: Adult Inpatient Plan of Care Goal: Optimal Comfort and Wellbeing Outcome: Ongoing, Not Progressing Intervention: Monitor Pain and Promote Comfort Flowsheets (Taken 06/22/2025 1245) Pain Management Interventions: position adjusted Problem: Fall Injury Risk Goal: Absence of Fall and Fall-Related Injury Outcome: Ongoing, Progressing Intervention: Promote Injury-Free Environment Flowsheets (Taken 06/22/2025 1409) Safety Promotion/Fall Prevention: clutter-free environment maintained activity supervised lighting adjusted nonskid shoes/slippers when out of bed * Assessment & Plan Note - Daphne Luis APRN, DNP - 06/22/2025 1:28 PM EDTAssociated Problem(s): RLS (restless legs syndrome) Continue home requip * Assessment & Plan Note - Daphne Luis APRN, DNP - 06/22/2025 1:28 PM EDTAssociated Problem(s): PAF (paroxysmal atrial fibrillation) ([facility]) Continue bisoprolol Hold home eliquis * Assessment & Plan Note - Daphne Luis APRN, DNP - 06/22/2025 1:28 PM EDTAssociated Problem(s): Cerebral aneurysm Right JONAH A2 segment aneurysm treated with first stage intracranial stent from right A2-A1 Continue ASA 81 mg and Plavix 75 mg daily (first dose tomrrow) Femoral access, Angioseal SBP<140 * Assessment & Plan Note - Daphne Luis APRN, DNP - 06/22/2025 1:28 PM EDTAssociated Problem(s): Coronary artery disease involving red cliff coronary artery of red cliff heart without angina pectoris Resume home medications as appropriate * Assessment & Plan Note - Daphne Luis APRN, DNP - 06/22/2025 1:28 PM EDTAssociated Problem(s): Gastroesophageal reflux disease without esophagitis Continue pepcid * Assessment & Plan Note - Daphne Luis APRN, DNP - 06/22/2025 1:28 PM EDTAssociated Problem(s): Hypertension SBP<140 Continue prn labetalol and hydralazine * Assessment & Plan Note - Daphne Luis APRN, DNP - 06/22/2025 1:28 PM EDTAssociated Problem(s): COPD (chronic obstructive pulmonary disease) ([facility]) Resume home medications as appropriate * Assessment & Plan Note - Daphne Luis APRN, DNP - 06/22/2025 1:28 PM EDTAssociated Problem(s): Anxiety Resume home temazepam as appropriate * Assessment & Plan Note - Daphne Luis APRN, DNP - 06/22/2025 1:28 PM EDTAssociated Problem(s): Insomnia Continue home trazodone as appropriate * Assessment & Plan Note - Daphne Lius APRN, DNP - 06/22/2025 1:28 PM EDTAssociated Problem(s): Abrasion of left cornea Continue home lacrilube * Assessment & Plan Note - Daphne Luis APRN, DNP - 06/22/2025 1:28 PM EDTAssociated Problem(s): Mixed hyperlipidemia -Monitor per protocol. * Progress Notes - Daphne Luis APRN, DNP - 06/22/2025 1:26 PM EDT Associated Order(s): Critical Care Post-Procedure Diagnose(s): Cerebral aneurysm 06/22/25 [facility] Supriya Andres is a 74 y.o. female who presents with cerebral aneurysm Past 24 hours: Ms. Andres is admitted to the ICU following right JONAH stenting. She is hemodynamically stable on oxygen and her main complaint is left hip pain and left eye pain. PMH: HTN, HLD, CA with stents, COPD, RLS, insomnia, anxiety PSH: Stents Social History: Denies GCS: Gayla Coma Scale Score: 15 NIH Stroke Scale: 0 Review of Systems HENT: Eye pain Musculoskeletal: Left hip pain (chronic) Vital signs: Vitals: 06/22/25 1245 BP: 119/62 Pulse: 57 Resp: 20 Temp: SpO2: 98% Intake/Output Summary (Last 24 hours) at 06/22/2025 1326 Last data filed at 06/22/2025 1105 Gross per 24 hour Intake 1034 ml Output 550 ml Net 484 ml Physical Exam Vitals reviewed. Constitutional: Appearance: She is normal weight. HENT: Head: Normocephalic and atraumatic. Right Ear: External ear normal. Left Ear: External ear normal. Nose: Nose normal. Mouth/Throat: Mouth: Mucous membranes are moist. Pharynx: Oropharynx is clear. Eyes: Conjunctiva/sclera: Conjunctivae normal. Pupils: Pupils are equal, round, and reactive to light. Cardiovascular: Rate and Rhythm: Normal rate. Pulses: Normal pulses. Heart sounds: Normal heart sounds. Pulmonary: Effort: Pulmonary effort is normal. Breath sounds: Normal breath sounds. Abdominal: General: Abdomen is flat. Palpations: Abdomen is soft. Musculoskeletal: General: Normal range of motion. Cervical back: Normal range of motion and neck supple. Skin: General: Skin is warm and dry. Capillary Refill: Capillary refill takes less than 2 seconds. Neurological: General: No focal deficit present. Mental Status: She is alert and oriented to person, place, and time. Mental status is at baseline. Labs in last 18 hours: CBC WBC ?? Hb ?? Plt ?? Hct ?? INR ??, PTT ??, Anti-Xa ?? BMP Na ?? Cl ?? BUN ?? Glu ?? K ?? Co2 ?? Cr ?? Ca ?? iCa ?? Mg ??, Phos ?? Lactate ?? LFT AST ?? AlkPhos ?? T Prot ?? ALK ?? Bili ?? Alb ?? D.Bili ?? Imaging as available: === 05/01/25 === XR CHEST 1 VIEW - Narrative - CLINICAL INDICATION: Dyspnea TECHNIQUE: XR CHEST 1 VIEW COMPARISON: 08/24/2022 FINDINGS: Changes prior median sternotomy and coronary bypass grafting. Coronary stent in situ. Cardiomegaly.Mild ill-defined bilateral lower lung opacities, atelectasis and/or infiltrate. No pneumothorax. Noacute osseous abnormality. - Impression - Mild ill-defined bilateral lower lung opacities, atelectasis and/or infiltrate. Cardiomegaly. CRITICAL RESULT: No. COMMUNICATION: Per this written report. Drafted by Riaz Jaramillo MD on 05/01/2025 9:30 PM Final report signed by Riaz Jaramillo MD on 05/01/2025 9:31 PM Reviewed and agree with above. Assessment and Plan: This patient is critically ill. Assessment & Plan PAF (paroxysmal atrial fibrillation) (CMS/HCC) Present on Admission: Yes Continue bisoprolol Hold home eliquis Coronary artery disease involving red cliff coronary artery of red cliff heart without angina pectoris Present on Admission: Yes Resume home medications as appropriate Hypertension Present on Admission: Yes SBP<140 Continue prn labetalol and hydralazine Mixed hyperlipidemia Present on Admission: Yes -Monitor per protocol. RLS (restless legs syndrome) Present on Admission: Yes Continue home requip Gastroesophageal reflux disease without esophagitis Present on Admission: Yes Continue pepcid Cerebral aneurysm Present on Admission: Yes Right JONAH A2 segment aneurysm treated with first stage intracranial stent from right A2-A1 Continue ASA 81 mg and Plavix 75 mg daily (first dose tomrrow) Femoral access, Angioseal SBP<140 COPD (chronic obstructive pulmonary disease) ([facility]/HCC) Present on Admission: Yes Resume home medications as appropriate Anxiety Present on Admission: Yes Resume home temazepam as appropriate Insomnia Present on Admission: Yes Continue home trazodone as appropriate Abrasion of left cornea Present on Admission: Yes Continue home lacrilube Critical Care Performed by: Daphne Luis APRN, DNP Authorized by: Daphne Luis APRN, DNP Critical care provider statement: Critical care time (minutes): 40 Critical care time was exclusive of: Separately billable procedures and treating other patients Critical care was time spent personally by me on the following activities: Development of treatmentplan with patient or surrogate, examination of patient, obtaining history from patient or surrogate, evaluation of patient's response to treatment, ordering and performing treatments and interventions, review of old charts, discussions with primary provider, ordering and review of laboratory studies and ordering and review of radiographic studies I assumed subsequent critical care for this patient from a provider in my division, on the same day: yes Comments: Staffed with Dr. Alina Luis APRN, ERIBERTO * Oliver CarterLEÓN - Marifer Guadarrama, RN - 06/22/2025 12:32 PM EDT Images from the original note were not included. 113 Post-Anesthesia and Postoperative Instructions ([place]) In order to have a fast and comfortable recovery at home, please follow these instructions. ? A responsible adult must be present for you to be discharged. ? Do not drive, drink alcohol or make important decisions for 24 hours after surgery. ? You may feel like resting more than normal after surgery. Start slowly and be more active each day. ? Start slowly with liquids like 7-up, tea, apple juice or broth. Eat more as your stomach allows. If you feel sick to your stomach, go back to drinking liquids. ? You may feel some discomfort after surgery. Take the medicine as directed by your caregiver. If your medicine makes you drowsy, do not drink alcohol, drive or operate heavy equipment for at least 24 hours after use. ? If you are taking antibiotics, take them until they are all gone even if you feel well. ? Cover your wound or bandage when showering, unless your doctor tells you differently. ? A small amount of drainage on your bandage is normal. Do not remove your bandage unless your doctor tells you to. Please keep track of information about the medicines you take. Follow these tips to manage your medicines. ? Keep a list of all your medicines. Update the list when you start or stop taking a medicine. Write down changes in how you should take them. ? Carry your medicine list with you at all times. It will be needed if you have a health emergency . ? Give the list to your family doctor. Take the list to all your doctor visits. Call your doctor if you have any of the following ? Temperature higher than 101.5??F ? Chest pain or difficulty breathing ? Stomach sickness or throwing up that does not go away ? You cannot urinate by bedtime ? Pain is not helped by your medicine. ? Bandage becomes soaked with blood - Don't remove the bandage, reinforce only ? Swelling, redness, pain or pus from incision ? Questions or concerns about your surgery. In the event of an emergency, please go to the closest Emergency Room or call the Emergency Department at [phone]. Smoking and its health risks ? Smoking is the most preventable cause of illness and in the [place]. Cigarettes are filled with poison that goes into the lungs as you inhale. About 440,000 people every year from illnesses caused by smoking. People who smoke earlier than those who do not smoke. ? Heart and blood vessel disease, lung disease and ulcers are just some of the health problems thatmay be caused by smoking. Smoking also slows bone and wound healing and may slow your recovery fromsurgery. ? For help quitting smoking, call the National [employer] [place]'s Quitline toll free at or ask your doctor for help. Weight Management ? Weighing too much is not good for your health. Being overweight increases your risk of health conditions such as heart problems, high blood pressure, type 2 diabetes, and certain types of cancer. Being overweight can also increase your risk for osteoarthritis ([id number]-[id number]-[id number]-[id number]) (joint disease), sleep apnea (abnormal breathing at night) or other respiratory (breathing) problems. Being overweight may also cause a person to feel sad or be treated differently by others. ? The best way to lose weight is to eat fewer calories and get regular exercise. Eating more calories than you need will cause you to gain weight. Try to cut down your calories by 500 calories per day. For example, cut down on one soda (about 150 calories), a small bag of regular potato chips (about 150 calories) and one chocolate bar (about 250 calories). For most people, this change will resultin a slow weight loss of about one pound a week. Exercise (for example, walk, swim, or bicycle) forat least 30 minutes on most days of the week. You will be more likely to keep weight off if you make lifelong lifestyle changes. ? Aim for a slow, steady weight loss. Losing even a small amount of weight can lower your risk of health problems. Ask your dietitian, glove printer or doctor about a weight loss goal that is right for you. 11/06 * Oliver CarterIR - Ro-Anuel Marifer C, RN - 06/22/2025 12:32 PM EDT Images from the original note were not included. [id number] Discharge Instructions for Cerebral Angiography You had a procedure called cerebral angiography. This is an X-ray study of the blood vessels that supply your brain. During the procedure, the healthcare provider put a thin, flexible tube (catheter)into a blood vessel in your groin, arm, or neck through a small cut (incision). The provider injected contrast dye into your bloodstream to help take clear X-ray images. Here?s what to do at home afterward. Possible complications to watch for The most common complication of this test is a collection of blood (hematoma) where the catheter was inserted. This is usually in the groin. It may appear as a lump under the skin. The medical staff usually notices this before you leave the imaging facility. A hematoma is treated by putting pressure on the site for a few hours to prevent it from getting bigger. You will be told to put cold packs on your groin for 24 hours to ease the pain. It takes a couple of weeks for the hematoma to heal. Ifthe lump increases in size or is still present after 4 weeks, have it examined by your healthcare provider. A less common complication is transient ischemic attacks (TIA) or a stroke. A TIA or stroke is caused by less blood flow to your brain. You might have weakness of an arm or leg, have trouble speakingand understanding words, or lose some vision or not remember things well. A TIA can last just a fewhours. A stroke can last for days or weeks. Or be permanent. The older you are, the greater the risk for a TIA or a stroke after a cerebral angiography. You might notice these symptoms at the time ofthe test or after you have left the imaging facility, sometimes days later. What to do at home ? Rest at home in bed for 12 hours, or as long as directed. ? Go back to your normal diet and take your regular medicines. ? Do only light and easy activities for 2 to 3 days. ? Drink 6 to 8 glasses of water a day. This will keep you from losing fluid. It will also help flush the X-ray dye out of your body. ? Don't drive until the day after your procedure. ? Don?t do strenuous activity for 2 weeks. Don?t lift anything heavier than 10 pounds for 3 to 4 days. ? You can shower the day after your procedure. But don't swim or sit in a bath or hot tub until your incision site has healed. ? Take your temperature and check your incision site for signs of infection every day for 1 week. Check for redness, swelling, or warmth at the site. ? Ask your healthcare provider when you can go back to work. Call 911 A stroke is a medical emergency. Call 911 right away if you have any of the following symptoms of astroke or TIA: ? Weakness, tingling, or loss of feeling on one side of your face or body ? Sudden double vision or trouble seeing in one or both eyes ? Sudden trouble talking or slurred speech ? Sudden, severe headache B.E. F.A.S.T. is an easy way to remember the signs of stroke. When you see these signs, you know that you need to call 911 fast. B.E. F.A.S.T. stands for: ? B is for balance. Sudden loss of balance or coordination. ? E is for eyes. Vision changes in one or both eyes. ? F is for face drooping. One side of the face is drooping or numb. When the person smiles, the smile is uneven. ? A is for arm weakness. One arm is weak or numb. When the person lifts both arms at the same time,one arm may drift downward. ? S is for speech difficulty. You may notice slurred speech or trouble speaking. The person can't repeat a simple sentence correctly when asked. ? T is for time to call 911. If someone shows any of these symptoms, even if they go away, call 911right away. Make note of the time the symptoms first appeared. When to call your healthcare provider Call your healthcare provider right away if any of the following occur: ? Trouble breathing ? Dizziness ? Constant or increasing pain or numbness in your leg, arm, or neck ? Fever of 100.4??F (38??C) or higher, or as directed by your healthcare provider ? Signs of infection at the incision site, such as redness, swelling, or warmth ? Shortness of breath ? Leg feels cold or looks blue ? Bleeding, bruising, or a large swelling where the catheter was inserted ? Not enough urine or no urine Last Reviewed Date: 2022 00:00:00 ?? [id number] [employer]. All rights reserved. This information is not intended as a substitute for professional medical care. Always follow your healthcare professional's instructions. * Brief Op Note - Yumi Jefferson MD - 06/22/2025 8:00 AM EDT Date: 06/22/25 Location: [facility] Name: Supriya Andres, : 1950, Diagnoses: Pre-op Diagnosis JONAH Aneurysm Post-op Diagnosis same Procedure(s): DSA with intracranial stent Attending Surgeon(s): * No surgeons found with a matching role * Scale Installer(s): * Iftikhar Hastings - Fellow Anesthesia: * No anesthesia type entered * ASA: III Blood Administration: Blood Product Administration History None Estimated Blood Loss: None Drains: Urethral Catheter Temperature probe 16 Fr. (Active) Implants Type Name Action Serial No. STENT WITHOUT TIP ATLAS 3MM X 24MM - [id number] Implanted VIP VASCULAR CLOSURE DEVICE 6 FR - [id number] Implanted Specimen: Findings: Right JONAH A2 segment aneurysm treated with first stage intracranial stent from right A2-A1 Continue ASA 81 mg and Plavix 75 mg daily (first dose tomrrow) Femoral access, Angioseal Complications: None; patient tolerated the procedure well. Submitted by: Yumi Jefferson MD - 06/22/2025 * H&P - Yumi Jefferson MD - 06/22/2025 8:00 AM EDT NEURO INTERVENTIONAL PRE PROCEDURAL NOTE HISTORY OF PRESENT ILLNESS Supriya Andres is a 74 y.o. female here for embolization JONAH aneurysm Past Medical History[1] Surgical History[2] Family History[3] Social History[4] Diphenhydramine, Isosorbide, Penicillins, Codeine, Ativan [lorazepam], and Diazepam REVIEW OF SYSTEMS: 14 system review of systems was conducted and was negative. PHYSICAL EXAMINATION Vitals: There were no vitals filed for this visit. General: No acute distress. HEENT: Normocephalic, atraumatic PULM: No increased work of breathing CV: Vital signs stable. LABS Lab Results Component Value Date GLUCOSE 100 (H) 06/02/2025 CALCIUM 9.7 06/02/2025 NA 140 06/02/2025 K 4.3 06/02/2025 CO2 24 06/02/2025 CL 103 06/02/2025 BUN 13 06/02/2025 CREATININE 0.82 06/02/2025 Lab Results Component Value Date WBC 6.31 06/02/2025 HGB 13.7 06/02/2025 HCT 42.7 06/02/2025 MCV 95 06/02/2025 PLT 303 06/02/2025 Lab Results Component Value Date INR 1.1 06/02/2025 INR 1.1 05/04/2025 INR 1.4 (H) 05/01/2025 ASSESSMENT AND PLAN - Proceed to LEÓN Jefferson MD Neuro Endovascular Fellow [1] Past Medical History: Diagnosis Date Abnormal ECG Aneurysm ([facility]) 05/10/2025 Asthma Atrial fibrillation ([facility]) CHF (congestive heart failure) ([facility]) 2003 COPD (chronic obstructive pulmonary disease) ([facility]) Coronary artery disease 2002 Gastroesophageal reflux disease without esophagitis Headache 04/26/2025 Hypercholesteremia Hypertension Low back pain 2020 CA (myocardial infarction) ([facility]) Obesity 2020 Obstructive sleep apnea (adult) (pediatric) CORNELIA on CPAP Old myocardial infarction History of myocardial infarction Pulmonary arterial hypertension ([facility]) 2017 Radiculopathy 2020 Restless leg syndrome Vertebral compression fracture ([facility]) 05/26/2022 [2] Past Surgical History: Procedure Laterality Date ABLATION OF DYSRHYTHMIC FOCUS AORTIC VALVE REPLACEMENT BILIARY DRAINAGE N/A Atrial Cardioversion from [facility] CARDIAC CATHETERIZATION CAROTID STENT CATH STENT PLACEMENT/ CATH PLACEMENT OF STENT N/A Cath Stent Placement from [facility] COLON SURGERY N/A Colon Surgery from [facility] CORONARY ANGIOPLASTY CORONARY ARTERY BYPASS GRAFT N/A CABG from [facility] CORONARY STENT PLACEMENT HYSTERECTOMY N/A Hysterectomy from [facility] KNEE ARTHROPLASTY 2012 TOTAL KNEE ARTHROPLASTY Bilateral Knee Replacement from [facility] [3] Family History Problem Relation Name Age of Onset Coronary artery disease Mother Coronary artery disease Father Migraines Sister Kait Reese Anesthesia problems Neg Hx Malig Hyperthermia Neg Hx [4] Social History Tobacco Use Smoking status: Former Current packs/day: 0.00 Average packs/day: 2.0 packs/day for 63.1 years (126.2 ttl pk-yrs) Types: Cigarettes Start date: 11/26/1959 Quit date: 12/2022 Years since quittin.4 Smokeless tobacco: Never Vaping Use Vaping status: Never Used Substance Use Topics Alcohol use: Never Drug use: Never documented in this encounter Plan of Treatment Upcoming Encounters Date Type Department Care Team (Latest Contact Info) Description 08/31/2025 1:00 PM EDT Pre-[facility] Testing [facility] [address] [place] [address] 09/09/2025 10:15 AM EDT Appointment [facility] [address] [place] [address] documented as of this encounter Procedures Procedure Name Priority Date/Time Associated Diagnosis Comments IONIZED CALCIUM, WHOLE BLOOD Routine 06/23/2025 3:16 AM EDT CBC W/O DIFFERENTIAL Routine 06/23/2025 3:16 AM EDT PHOSPHORUS, PLASMA Routine 06/23/2025 3: 16 AM EDT MAGNESIUM, PLASMA Routine 06/23/2025 3:1 6 AM EDT BASIC METABOLIC PANEL, PLASMA Routine 06/23/2025 3:16 AM EDT IONIZED CALCIUM, WHOLE BLOOD Routine 06/22/2025 6:13 PM EDT CBC W/O DIFFERENTIAL Routine 06/22/2025 6:13 PM EDT PHOSPHORUS, PLASMA Routine 06/22/2025 6: 13 PM EDT MAGNESIUM, PLASMA Routine 06/22/2025 6:1 3 PM EDT BASIC METABOLIC PANEL, PLASMA Routine 06/22/2025 6:13 PM EDT NM CRITICAL CARE, ADDL 30 MIN Routine 06/22/2025 1:26 PM EDT Cerebral aneurysm DELMY AURIS SURVEILLANCE BY PCR Routine 06/22/2025 12:30 PM EDT MULTI DRUG RESISTANCE TEST Routine 06/22/2025 12:30 PM EDT OXYGEN THERAPY Routine 06/22/2025 11:11 AM EDT OXYGEN THERAPY Routine 06/22/2025 11:11 AM EDT OXYGEN THERAPY Routine 06/22/2025 11:11 AM EDT IR ARTERIAL EMBOLIZATION Routine 06/22/2025 11:03 AM EDT Aneurysm ([facility]) POCT ACT UNSOLICITED RESULTS Routine 06/22/2025 10:50 AM EDT POCT ACT UNSOLICITED RESULTS Routine 06/22/2025 10:27 AM EDT POCT ACT UNSOLICITED RESULTS Routine 06/22/2025 9:52 AM EDT POCT ACT UNSOLICITED RESULTS Routine 06/22/2025 9:28 AM EDT POCT ACT UNSOLICITED RESULTS Routine 06/22/2025 9:02 AM EDT PLATELET P2Y12 RECEPTOR BLOCKADE, VERIFY NOW PRU STAT 06/22/2025 7:39 AM EDT TYPE AND SCREEN Routine 06/22/2025 7:39 AM EDT documented in this encounter Results * Phosphorus, Plasma (06/23/2025 3:16 AM EDT) Phosphorus, Plasma 2.5 2.5 - 4.5 mg/dL 06/23/2025 3:51 AM EDT [facility] Blood Venous blood specimen / Unknown Venipuncture / Unknown 06/23/2025 3:16 AM EDT 06/23/2025 3:21 AM EDT Sly Pat APRN LAB BLOOD ORDERABLES Anastacia l Result Performing Organization Address [facility] Co de Phone Number [facility] [address] [place] [address] * (ABNORMAL) Magnesium, Plasma (06/23/2025 3:16 AM EDT) Magnesium, Plasma 2.9(H) 1.9 - 2.4 mg/dL 06/23/2025 3:51 AM EDT [facility] Blood Venous blood specimen / Unknown Venipuncture / Unknown 06/23/2025 3:16 AM EDT 06/23/2025 3:21 AM EDT Sly Pat APRN LAB BLOOD ORDERABLES Anastacia l Result [facility] [address] [place] [address] * (ABNORMAL) Ionized calcium, whole blood (06/23/2025 3:16 AM EDT) Ionized Calcium, Whole Blood 4.4(L) 4.6 - 5.1 mg/dL LAB HEMATOLOGY METHOD 06/23/2025 3:22 AM EDT [facility] Blood Venous blood specimen / Unknown Venipuncture / Unknown 06/23/2025 3:16 AM EDT 06/23/2025 3:21 AM EDT Sly Pat PHYSICS PROFESSOR LAB BLOOD ORDERABLES Anastacia sneed Result [facility] [address] [place] [address] * (ABNORMAL) CBC W/O Differential (06/23/2025 3:16 AM EDT) WBC Count 7.60 3.70 - 10.30 10*3/uL LAB HEMATOLOGY METHOD 06/23/2025 3:32 AM EDT [facility] RBC Count 3.51(L) 3.90 - 5.20 10*6/uL LAB HEMATOLOGY METHOD 06/23/2025 3:32 AM EDT [facility] HGB 11.0(L) 11.2 - 15.7 g/dL LAB HEMATOLOGY METHOD 06/23/2025 3:32 AM EDT [facility] HCT 33.7(L) 34.0 - 45.0 % LAB HEMATOLOGY METHOD 06/23/2025 3:32 AM EDT [facility] Platelet Count 273 155 - 369 10*3/uL LAB HEMATOLOGY METHOD 06/23/2025 3:32 AM EDT [facility] MCV 96 79 - 98 fL LAB HEMATOLOGY METHOD 06/23/2025 3:32 AM EDT [facility] MCH 31.3 26.0 - 32.0 pg LAB HEMATOLOGY METHOD 06/23/2025 3:32 AM EDT [facility] MCHC 32.6 30.7 - 35.5 g/dL LAB HEMATOLOGY METHOD 06/23/2025 3:32 AM EDT [facility] RDW 13.2 11.5 - 14.5 % LAB HEMATOLOGY METHOD 06/23/2025 3:32 AM EDT [facility] MPV 9.3 8.8 - 12.5 fL LAB HEMATOLOGY METHOD 06/23/2025 3:32 AM EDT [facility] nRBC 0.0 <=0.0 per 100 WBCs LAB HEMATOLOGY METHOD 06/23/2025 3:32 AM EDT [facility] Blood Venous blood specimen / Unknown Venipuncture / Unknown 06/23/2025 3:16 AM EDT 06/23/2025 3:21 AM EDT Sly Pat PHYSICS PROFESSOR LAB BLOOD ORDERABLES Anastacia sneed Result [facility] [address] [place] [address] * (ABNORMAL) Basic Metabolic Panel, Plasma (06/23/2025 3:16 AM EDT) Glucose, Plasma 124(H) 74 - 99 mg/dL 06/23/2025 3:51 AM EDT [facility] BUN, Plasma 12 8 - 23 mg/dL 06/23/2025 3:51 AM EDT [facility] Creatinine, Plasma 0.40(L) 0.60 - 1.10 mg/dL 06/23/2025 3:51 AM EDT [facility] BUN/Creatinine Ratio 30 06/23/2025 3:51 AM EDT [facility] Sodium, Plasma 141 136 - 145 mmol/L 06/23/2025 3:51 AM EDT [facility] Potassium, Plasma 3.8 3.6 - 4.9 mmol/L 06/23/2025 3:51 AM EDT [facility] Chloride, Plasma 110(H) 97 - 107 mmol/L 06/23/2025 3:51 AM EDT [facility] CO2, Plasma 22 22 - 29 mmol/L 06/23/2025 3:51 AM EDT [facility] Anion Gap 9 6 - 16 mmol/L 06/23/2025 3:51 AM EDT [facility] Total Calcium, Plasma 8.2(L) 8.9 - 10.2 mg/dL 06/23/2025 3:51 AM EDT [facility] eGFRcr 104.7 mL/min/1.7 3m*2 06/23/2025 3:51 AM EDT [facility] Comment:Reported eGFRcr in m L/min/1.73m2 is based the CKD-EPI 2020 equation that does not use a race coefficient. Blood Venous blood specimen / Unknown Venipuncture / Unknown 06/23/2025 3:16 AM EDT 06/23/2025 3:21 AM EDT Sly Pat APRN LAB BLOOD ORDERABLES Anastacia l Result Performing Organization Address City/[facility]/ZIP Co de Phone Number [facility] [address] [place] [address] * Phosphorus, Plasma (06/22/2025 6:13 PM EDT) Phosphorus, Plasma 2.8 2.5 - 4.5 mg/dL 06/22/2025 7:01 PM EDT [facility] Blood Venous blood specimen / Unknown Venipuncture / Unknown 06/22/2025 6:13 PM EDT 06/22/2025 6:30 PM EDT Sly Pat APRN LAB BLOOD ORDERABLES Naastacia l Result Performing Organization Address [facility]/[place] [address] * (ABNORMAL) Magnesium, Plasma (06/22/2025 6:13 PM EDT) Magnesium, Plasma 1.8(L) 1.9 - 2.4 mg/dL 06/22/2025 7:01 PM EDT [facility] Blood Venous blood specimen / Unknown Venipuncture / Unknown 06/22/2025 6:13 PM EDT 06/22/2025 6:30 PM EDT Sly Pat APRN LAB BLOOD ORDERABLES Anastacia l Result [facility] [address] [place] [address] * (ABNORMAL) Ionized calcium, whole blood (06/22/2025 6:13 PM EDT) Ionized Calcium, Whole Blood 4.1(L) 4.6 - 5.1 mg/dL LAB HEMATOLOGY METHOD 06/22/2025 6:32 PM EDT [facility] Blood Venous blood specimen / Unknown Venipuncture / Unknown 06/22/2025 6:13 PM EDT 06/22/2025 6:27 PM EDT Sly Pat PHYSICS PROFESSOR LAB BLOOD ORDERABLES Anastacia sneed Result [facility] [address] [place] [address] * (ABNORMAL) CBC W/O Differential (06/22/2025 6:13 PM EDT) WBC Count 6.59 3.70 - 10.30 10*3/uL LAB HEMATOLOGY METHOD 06/22/2025 6:41 PM EDT [facility] RBC Count 3.86(L) 3.90 - 5.20 10*6/uL LAB HEMATOLOGY METHOD 06/22/2025 6:41 PM EDT [facility] HGB 11.9 11.2 - 15.7 g/dL LAB HEMATOLOGY METHOD 06/22/2025 6:41 PM EDT [facility] HCT 36.2 34.0 - 45.0 % LAB HEMATOLOGY METHOD 06/22/2025 6:41 PM EDT [facility] Platelet Count 304 155 - 369 10*3/uL LAB HEMATOLOGY METHOD 06/22/2025 6:41 PM EDT [facility] MCV 94 79 - 98 fL LAB HEMATOLOGY METHOD 06/22/2025 6:41 PM EDT [facility] MCH 30.8 26.0 - 32.0 pg LAB HEMATOLOGY METHOD 06/22/2025 6:41 PM EDT [facility] MCHC 32.9 30.7 - 35.5 g/dL LAB HEMATOLOGY METHOD 06/22/2025 6:41 PM EDT [facility] RDW 13.2 11.5 - 14.5 % LAB HEMATOLOGY METHOD 06/22/2025 6:41 PM EDT [facility] MPV 9.1 8.8 - 12.5 fL LAB HEMATOLOGY METHOD 06/22/2025 6:41 PM EDT [facility] nRBC 0.0 <=0.0 per 100 WBCs LAB HEMATOLOGY METHOD 06/22/2025 6:41 PM EDT [facility] Blood Venous blood specimen / Unknown Venipuncture / Unknown 06/22/2025 6:13 PM EDT 06/22/2025 6:32 PM EDT Sly Pat PHYSICS PROFESSOR LAB BLOOD ORDERABLES Anastacia sneed Result [facility] [address] [place] [address] * (ABNORMAL) Basic Metabolic Panel, Plasma (06/22/2025 6:13 PM EDT) Glucose, Plasma 154(H) 74 - 99 mg/dL 06/22/2025 7:01 PM EDT [facility] BUN, Plasma 12 8 - 23 mg/dL 06/22/2025 7:01 PM EDT [facility] Creatinine, Plasma 0.75 0.60 - 1.10 mg/dL 06/22/2025 7:01 PM EDT [facility] BUN/Creatinine Ratio 16 06/22/2025 7:01 PM EDT [facility] Sodium, Plasma 140 136 - 145 mmol/L 06/22/2025 7:01 PM EDT [facility] Potassium, Plasma 4.4 3.6 - 4.9 mmol/L 06/22/2025 7:01 PM EDT [facility] Chloride, Plasma 109(H) 97 - 107 mmol/L 06/22/2025 7:01 PM EDT [facility] CO2, Plasma 21(L) 22 - 29 mmol/L 06/22/2025 7:01 PM EDT [facility] Anion Gap 10 6 - 16 mmol/L 06/22/2025 7:01 PM EDT [facility] Total Calcium, Plasma 8.0(L) 8.9 - 10.2 mg/dL 06/22/2025 7:01 PM EDT [facility] eGFRcr 84.2 mL/min/1.7 3m*2 06/22/2025 7:01 PM EDT [facility] Comment:Reported eGFRcr in m L/min/1.73m2 is based the CKD-EPI 2020 equation that does not use a race coefficient. Blood Venous blood specimen / Unknown Venipuncture / Unknown 06/22/2025 6:13 PM EDT 06/22/2025 6:30 PM EDT us [employer] LAB BLOOD ORDERABLES Anastacia sneed Result [facility] [address] [place] [address] * NM CRITICAL CARE, ADDL 30 MIN (06/22/2025 1:26 PM EDT) Narrative Daphne Luis APRN, DNP - 06/22/2025 1:26 PM EDT Daphne Luis APRN, DNP 06/22/2025 1:28 PM Critical Care Performed by: Daphne Luis APRN, DNP Authorized by: Daphne Luis APRN, DNP Critical care provider statement: Critical care time (minutes): 40 Critical care time was exclusive of: Separately billable procedures and treating other patients Critical care was time spent personally by me on the following activities: Development of treatment plan with patient or surrogate, examination of patient, obtaining history from patient or surrogate, evaluation of patient's response to treatment, ordering and performing treatments and interventions, review of old charts, discussions with primary provider, ordering and review of laboratory studies and ordering and review of radiographic studies I assumed subsequent critical care for this patient from a provider in my division, on the same day: yes Comments: Staffed with Dr. Fuller Daphne Luis APRN, DNP IN CLINIC/BEDSIDE OR DERABLES Final Result * Delmy auris Surveillance by PCR (06/22/2025 12:30 PM EDT) Delmy auris PCR Result Not Detected Not Detected 06/23/2025 7:10 AM EDT [facility] Swab (Axilla and Groin) Non-blood Collection / Unknown 06/22/2025 12:30 PM EDT 06/22/2025 12:36 PM EDT Narrative [facility] - 06/23/2025 7:10 AM EDT This PCR assay was developed and its performance characteristics determined by [facility] as appropriate for clinical purposes. This assay has not been cleared or approved by the FDA, but is performed in a CLIA regulated laboratory that is qualified to perform high-complexity testing. David Mccoy MD LAB MICROBIOLOGY - GENERAL OR DERABLES Final Result Performing Organization Address [facility] de Phone Number [facility] [address] [place] [address] * Multi Drug Resistance Test (06/22/2025 12:30 PM EDT) Culture No growth at day 1 06/23/2025 1:09 PM EDT [facility] Swab (Nares and Mary Rectal) Non-blood Collection / Unknown 06/22/2025 12:30 PM EDT 06/22/2025 12:36 PM EDT Narrative [facility] - 06/23/2025 1:09 PM EDT This test was developed and its performance characteristics determined by the [facility]. Although the media is FDA-approved, it is not FDA-approved for all specimen types submitted. The FDA has determined that such clearance or approval is not necessary. This test is used for surveillance purposes. It should not be regarded as investigational or for research. The [facility] is certified under the Clinical Laboratory Improvement Amendments of 1988 (CLIA-88) as qualified to perform high complexity clinical laboratory testing. David Mccoy MD LAB MICROBIOLOGY - GENERAL OR DERABLES Final Result Performing Organization Address [facility] [place] [address] * IR Arterial Embolization (06/22/2025 11:03 AM EDT) Anatomical Region Laterality Modality X-Ray Angiograph y Impressions 06/24/2025 2:15 PM EDT 1. 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 The aneurysm neck involves frontal branch of anterior internal artery, A1and A2 segment of JONAH. 2. Successfully treated with stage I intracranial stent from the right callosomarginal artery into to right anterior cerebral artery A1 segment 3. No procedural complications. OPERATION: FEMORAL CEREBRAL ANGIOGRAM; ANEURYSM EMBOLIZATION ANESTHESIA: GA ESTIMATED BLOOD LOSS: 50 ml VESSELS SEPARATELY SELECTIVELY CATHETERIZED WITH SELECTIVE ANGIOGRAPHY: 1. RIGHT COMMON CAROTID ARTERY 2. RIGHT INTERNAL CAROTID ARTERY 3. RIGHT INTERNAL CAROTID ARTERY INJECTION (SELECTIVE, CRANIAL), STATUS POST STENT PLACEMENT 4. RIGHT INTERNAL CAROTID ARTERY INJECTION (SELECTIVE, CRANIAL) x 2 5. DELAYED 10 MINUTE RIGHT INTERNAL CAROTID ARTERY INJECTION (SELECTIVE, CRANIAL), STATUS POST INTER ACRANIAL STENT. 6. FOLLOW UP RIGHT COMMON CAROTID ARTERY INJECTION (CERVICAL) 3D ROTATIONAL ANGIOGRAM PERFORMED AND THEN PROCESSED ON A SEPARATE WORKSTATION INDICATIONS: This is a 74-year-old lady who was found to have an incidental right anterior cerebral artery aneurysm. The patient is here for cerebral angiogram with possible intracranial stent placement as a first step for stent assist coil embolization. PROCEDURE: Following explanation of the benefits, risks and alternatives for the procedure, consent was obtained from the patient. The risks including but not limited to stroke, intracranial hemorrhage, vascular injury to the cervical or femoral vessels and groin hematoma were discussed. The patient was brought to the Angiographic Suite and cardiopulmonary monitoring was placed. The anesthesia modality described above was initiated. A time-out was performed. Both groins were prepped in the usual sterile fashion using Chloraprep, and sterilely draped. The skin over right femoral artery was anesthetized using 1% lidocaine subcutaneous injection. A single wall puncture of the femoral artery was performed; and a 6-Fr short sheath was inserted into the common femoral artery and maintained on heparinized flush. DSA of the femoral artery was performed, revealing no untoward events. Using coaxial technique, a Benchmark guide cathter and 5-Fr Simm2 Select catheter was advanced into the descending aorta, back-bled, and flushed in the usual fashion. Using coaxial technique, the catheter was advanced into the aortic arch, and with the aid of the roadmapping, digital fluoroscopy, and careful guidewire manipulation when necessary, the arteries detailed above were selectively catheterized. Upon each successive selective catheterization, digital subtraction angiography using the appropriate rate and volume of contrast in multiple projections was performed. In the case of the right internal carotid artery, standard 2D angiography was unable to appropriately evaluate the relevant vasculature and therefore a 3D acquisition was performed with associated post processing by David Mccoy MD. The raw data was post-processed at a separate workstation. FINDINGS: RIGHT COMMON FEMORAL ARTERY DSA AP Normal caliber and puncture above the bifurcation. No evidence of dissection or vasospasm. RIGHT COMMON CAROTID ARTERY DSA MULTIPLE VIEWS - NECK The origins of the internal and external carotid arteries were widely patent without evidence of ulceration or stenosis. 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 Aneurysm measures 13.4 mm x 14.1 mm with 4.6 mm neck . The aneurysm neck involves the callosomarginal and pericallosal arteries. There was anterograde filling of right internal carotid artery branches including right middle cerebral artery, right posterior communicating artery and right ophthalmic artery. The anterior cerebral artery is not well visualized on this injection. No vascular malformation, mass effect or significant vasospasm was seen. No significant abnormalities were seen in the capillary phase. The venous phase demonstrated patent transverse and sigmoid sinuses. 3D ROTATIONAL ANGIOGRAM PERFORMED AND THEN PROCESSED ON A SEPARATE WORKSTATION ENDOVASCULAR EMBOLIZATION Based on these findings, decision was made to proceed with Stent placement as part of staged I embolization of the anterior cerebral artery aneurysm. Using a roadmap technique, the Glidewire and the diagnostic catheter were advanced to the right internal carotid artery for the support needed to advance the guide sheath. Then the guide sheath was advanced to the right internal carotid artery. The Glidewire and diagnostic catheter were removed. Magnified working views were obtained. SL-10 microcatheters and two Buzz soft 0.014 microwires into the cavernous segment of right internal carotid artery. Following this, the first SL 10 microcatheter was advanced into the A1 segment of anterior cerebral artery. Following this using coaxial technique, the microcatheter and microwire was advanced through the aneurysm and using around the world technique passed through the callosomarginal artery. Following this, the microwire was removed from the first microcatheter, and a selective microinjection was performed. SELECTIVE INTRACRANIAL INJECTION- RIGHT ANTERIOR CEREBRAL ARTERY No evidence of distal thromboembolism, vasospasm, or other untoward events Next, a 3 x 32 mm stent retriever was advanced through the first, SL 10 into the callosomarginal artery. The stent retriever was used to to straighten out the microcatheter. 3 x 24 mm [place] Neuroform stent was advanced through the first, SL 10 into the callosomarginal artery. Next, under fluoroscopic guidance, the stent was carefully unsheathed with the distal end deployed in the callosomarginal artery and the proximal end into the distal segment of the A1 and across the neck of the aneurysm. Follow up contrast injection was obtained through the base catheter. RIGHT INTERNAL CAROTID ARTERY INJECTION (SELECTIVE, CRANIAL), STATUS POST STENT DEPLOYMENT DSA images were obtained over the head in lateral and oblique views. The Neuroform [place] stent is patent with no evidence of in-stent thrombosis or endoleak. There is no filling defect in the parent vessels to suggest platelet aggregation. The visualized internal carotid artery, ophthalmic artery, middle cerebral artery, and anterior choroidal arteries are unchanged from the prior contrast injections. There is no significant stenosis or vessel cut off or early draining vein. 10 MIN DELAYED - RIGHT INTERNAL CAROTID ARTERY INJECTION (SELECTIVE, CRANIAL), STATUS POST STENT DEPLOYMENT DSA images were obtained over the head in lateral and oblique views. The Neuroform [place] stent is patent with no evidence of in-stent thrombosis or endoleak. There is no filling defect in the parent vessels to suggest platelet aggregation. The visualized internal carotid artery, ophthalmic artery, middle cerebral artery, and anterior choroidal arteries are unchanged from the prior contrast injections. There is no significant stenosis or vessel cut off or early draining vein. FOLLOW UP RIGHT COMMON CAROTID ARTERY DSA MULTIPLE VIEWS - NECK The origins of the internal and external carotid arteries were widely patent without evidence of ulceration or stenosis. The catheter and sheath were removed at the end of the procedure. Hemostasis was achieved with TR band. The patient tolerated the procedure well and was transported from the angio suite in unchanged neurological status, without hematoma. MATERIALS EMPLOYED: 1. 6 Jamaican slender radial sheath 2. Benchmark guide cathter 3. La 2 diagnostic catheter 4. Terumo Glidewire 0.035 5. Glidewire advantage 6. SL 10 microcatheter 7. Buzz microwire 0.014 8. [place] Neuroform Stent 9. Trevo stent retriever 3 x 32 mm 10. TR band. Preliminary report signed by Yumi Jefferson on 06/23/2025 10:39 AM By electronically signing this report, I, the attending physician, attest that I was present for the entire procedure(s) and agree with the final edited report. Drafted by Yumi Jefferson on 06/22/2025 4:10 PM Final report signed by David Mccoy MD on 06/24/2025 2:15 PM Narrative 06/24/2025 2:15 PM EDT OPERATIVE REPORT SURGEON: DAVID MCCOY MD PROCEDURE DATE: 06/22/2025 9:02 AM GENERAL MAINTENANCE MECHANIC: Yumi CARCAMO I, the attending and teaching physician, was present during the haro portions of this procedure. I was immediately available for all remaining portions of the procedure. PREOPERATIVE DIAGNOSIS: Right anterior cerebral artery, anterior internal frontal bifurcation, bifurcation aneurysm Procedure Note David Mccoy MD - 06/24/2025 OPERATIVE REPORT SURGEON: DAVID MCCOY MD PROCEDURE DATE: 06/22/2025 9:02 AM GENERAL MAINTENANCE MECHANIC: Yumi CARCAMO I, the attending and teaching physician, was present during the keyportions of this procedure. I was immediately available for all remainingportions of the procedure. 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 The aneurysm neck involves frontal branch ofanterior internal artery, A1and A2 segment of JONAH. 2.Successfully treated with stage I intracranial stent from the rightcallosomarginal artery into to right anterior cerebral artery A1 segment 3.No procedural complications. OPERATION: FEMORAL CEREBRAL ANGIOGRAM; ANEURYSM EMBOLIZATION ANESTHESIA: GA ESTIMATED BLOOD LOSS: 50 ml VESSELS SEPARATELY SELECTIVELY CATHETERIZED WITH SELECTIVE ANGIOGRAPHY: 1.RIGHT COMMON CAROTID ARTERY 2.RIGHT INTERNAL CAROTID ARTERY 3.RIGHT INTERNAL CAROTID ARTERY INJECTION (SELECTIVE, CRANIAL), STATUSPOST STENT PLACEMENT 4.RIGHT INTERNAL CAROTID ARTERY INJECTION (SELECTIVE, CRANIAL) x 2 5.DELAYED 10 MINUTE RIGHT INTERNAL CAROTID ARTERY INJECTION (SELECTIVE,CRANIAL), STATUS POST INTER ACRANIAL STENT. 6.FOLLOW UP RIGHT COMMON CAROTID ARTERY INJECTION (CERVICAL) 3D ROTATIONAL ANGIOGRAM PERFORMED AND THEN PROCESSED ON A SEPARATEWORKSTATION INDICATIONS: This is a 74-year-old lady who was found to have anincidental right anterior cerebral artery aneurysm. The patient is herefor cerebral angiogram with possible intracranial stent placement as afirst step for stent assist coil embolization. PROCEDURE: Following explanation of the benefits, risks and alternativesfor the procedure, consent was obtained from the patient. The risksincluding but not limited to stroke, intracranial hemorrhage, vascularinjury to the cervical or femoral vessels and groin hematoma werediscussed. The patient was brought to the Angiographic Suite andcardiopulmonary monitoring was placed. The anesthesia modality describedabove was initiated. A time-out was performed. Both groins were prepped inthe usual sterile fashion using Chloraprep, and sterilely draped. The skinover right femoral artery was anesthetized using 1% lidocaine subcutaneousinjection. A single wall puncture of the femoral artery was performed; benoit 6-Fr short sheath was inserted into the common femoral artery andmaintained on heparinized flush. DSA of the femoral artery was performed,revealing no untoward events. Using coaxial technique, a Benchmark guidecathter and 5-Fr Simm2 Select catheter was advanced into the descending aorta, back-bled, and flushed in the usual fashion. Usingcoaxial technique, the catheter was advanced into the aortic arch, andwith the aid of the roadmapping, digital fluoroscopy, and carefulguidewire manipulation when necessary, the arteries detailed above wereselectively catheterized. Upon each successive selective catheterization,digital subtraction angiography using the appropriate rate and volume ofcontrast in multiple projections was performed. In the case of the right internal carotid artery, standard 2D angiographywas unable to appropriately evaluate the relevant vasculature andtherefore a 3D acquisition was performed with associated post processingby David Mccoy MD. The raw data was post-processed at a separate workstation. FINDINGS: RIGHT COMMON FEMORAL ARTERY DSA AP Normal caliber and puncture above the bifurcation. No evidence ofdissection or vasospasm. RIGHT COMMON CAROTID ARTERY DSA MULTIPLE VIEWS - NECK The origins of the internal and external carotid arteries were widelypatent without evidence of ulceration or stenosis. 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 Aneurysm duysrgis12.4 mm x 14.1 mm with 4.6 mm neck . The aneurysm neck involves thecallosomarginal and pericallosal arteries. There was anterograde fillingof right internal carotid artery branches including right middle cerebralartery, right posterior communicating artery and right ophthalmic artery.The anterior cerebral artery is not well visualized on this injection. Novascular malformation, mass effect or significant vasospasm was seen. Nosignificant abnormalities were seen in the capillary phase. The venousphase demonstrated patent transverse and sigmoid sinuses. 3D ROTATIONAL ANGIOGRAM PERFORMED AND THEN PROCESSED ON A SEPARATEWORKSTATION ENDOVASCULAR EMBOLIZATION Based on these findings, decision was made to proceed with Stent placementas part of staged I embolization of the anterior cerebral arteryaneurysm. Using a roadmap technique, the Glidewire and the diagnosticcatheter were advanced to the right internal carotid artery for thesupport needed to advance the guide sheath. Then the guide sheath wasadvanced to the right internal carotid artery. The Glidewire anddiagnostic catheter were removed. Magnified working views were obtained.SL-10 microcatheters and two Buzz soft 0.014 microwires into thecavernous segment of right internal carotid artery. Following this, thefirst SL 10 microcatheter was advanced into the A1 segment of anteriorcerebral artery. Following this using coaxial technique, the microcatheterand microwire was advanced through the aneurysm and using around the worldtechnique passed through the callosomarginal artery. Following this, themicrowire was removed from the first microcatheter, and a selective microinjection was performed. SELECTIVE INTRACRANIAL INJECTION- RIGHT ANTERIOR CEREBRAL ARTERY No evidence of distal thromboembolism, vasospasm, or other untowardevents Next, a 3 x 32 mm stent retriever was advanced through the first, SL 10into the callosomarginal artery. The stent retriever was used to tostraighten out the microcatheter. 3 x 24 mm [place] Neuroform stent wasadvanced through the first, SL 10 into the callosomarginal artery. Next,under fluoroscopic guidance, the stent was carefully unsheathed with thedistal end deployed in the callosomarginal artery and the proximal endinto the distal segment of the A1 and across the neck of the aneurysm.Follow up contrast injection was obtained through the base catheter. RIGHT INTERNAL CAROTID ARTERY INJECTION (SELECTIVE, CRANIAL), STATUS POSTSTENT DEPLOYMENT DSA images were obtained over the head in lateral and oblique views. TheNeuroform [place] stent is patent with no evidence of in-stent thrombosis orendoleak. There is no filling defect in the parent vessels to suggestplatelet aggregation. The visualized internal carotid artery, ophthalmicartery, middle cerebral artery, and anterior choroidal arteries areunchanged from the prior contrast injections. There is no significantstenosis or vessel cut off or early draining vein. 10 MIN DELAYED - RIGHT INTERNAL CAROTID ARTERY INJECTION (SELECTIVE,CRANIAL), STATUS POST STENT DEPLOYMENT DSA images were obtained over the head in lateral and oblique views. TheNeuroform [place] stent is patent with no evidence of in-stent thrombosis orendoleak. There is no filling defect in the parent vessels to suggestplatelet aggregation. The visualized internal carotid artery, ophthalmicartery, middle cerebral artery, and anterior choroidal arteries areunchanged from the prior contrast injections. There is no significantstenosis or vessel cut off or early draining vein. FOLLOW UP RIGHT COMMON CAROTID ARTERY DSA MULTIPLE VIEWS - NECK The origins of the internal and external carotid arteries were widelypatent without evidence of ulceration or stenosis. The catheter and sheath were removed at the end of the procedure.Hemostasis was achieved with TR band. The patient tolerated the procedurewell and was transported from the angio suite in unchanged neurologicalstatus, without hematoma. MATERIALS EMPLOYED: 1.6 Jamaican slender radial sheath 2.aaTag guide cathter 3.La 2 diagnostic catheter 4.Terumo Glidewire 0.035 5.Glidewire advantage 6.SL 10 microcatheter 7.Buzz microwire 0.014 8.[place] Neuroform Stent 9.Trevo stent retriever 3 x 32 mm 10.TR band. Preliminary report signed by Yumi Jefferson on 06/23/2025 10:39 AM By electronically signing this report, I, the attending physician, attestthat I was present for the entire procedure(s) and agree with the finaledited report. Drafted by Yumi Jefferson on 06/22/2025 4:10 PM Final report signed by David Mccoy MD on 06/24/2025 2:15 PM us David Mccoy MD IMG IR PROCEDURES Final Resul t * POCT ACT (06/22/2025 10:50 AM EDT) [facility] ACT (Low Range) 285 65 - 400 seconds 07/15/2025 12:47 PM EDT [facility] Pet Feeder ID Aubrey Cordero 07/15/2025 12:47 PM EDT [facility] ACT Device ID [id number] 07/15/2025 12:47 PM EDT [facility] Comment 07/15/2025 12:47 PM EDT [facility] Comment: ACT performed by staff at point of care. Results are reported immediately to the physician or primary caregiver. The activated clotting time is performed on patients with diverse clinical characteristics and treatment histories. Therefore, expected values are variable and results must be interpreted in the context of each individual patient. Whole Blood Venous blood specimen / Unknown 06/22/2025 10:50 AM EDT 07/15/2025 12:47 PM EDT David Mccoy MD LAB POINT OF CARE TE ST DOCKED DEVICE UNSOLICITED RESULTS Final Result Performing Organization Address City/[facility]/ZIP Co de Phone Number HEALTHCARE [facility] [address] LAB [address] [place] [address] * POCT ACT (06/22/2025 10:27 AM EDT) ACT (Low Range) 195 65 - 400 seconds 07/15/2025 12:47 PM EDT [facility] Pet Feeder ID Aubrey Cordero 07/15/2025 12:47 PM EDT [facility] ACT Device ID [id number] 07/15/2025 12:47 PM EDT [facility] Comment 07/15/2025 12:47 PM EDT [facility] Comment: ACT performed by staff at point of care. Results are reported immediately to the physician or primary caregiver. The activated clotting time is performed on patients with diverse clinical characteristics and treatment histories. Therefore, expected values are variable and results must be interpreted in the context of each individual patient. Whole Blood Venous blood specimen / Unknown 06/22/2025 10:27 AM EDT 07/15/2025 12:47 PM EDT us David Mccoy MD LAB POINT OF CARE TE ST DOCKED DEVICE UNSOLICITED RESULTS Final Result Performing Organization Address City/[facility]/ZIP Co de Phone Number [facility]ALTH[facility]ARE [facility] [address] LAB [address] [place] [address] * POCT ACT (06/22/2025 9:52 AM EDT) ACT (Low Range) 297 65 - 400 seconds 07/15/2025 12:47 PM EDT [facility] Pet Feeder ID Tramaine Oconnor 07/15/2025 12:47 PM EDT [facility] ACT Device ID [id number] 07/15/2025 12:47 PM EDT [facility] Comment 07/15/2025 12:47 PM EDT [facility] Comment: ACT performed by staff at point of care. Results are reported immediately to the physician or primary caregiver. The activated clotting time is performed on patients with diverse clinical characteristics and treatment histories. Therefore, expected values are variable and results must be interpreted in the context of each individual patient. Whole Blood Venous blood specimen / Unknown 06/22/2025 9:52 AM EDT 07/15/2025 12:47 PM EDT us David Mccoy MD LAB POINT OF CARE TE ST DOCKED DEVICE UNSOLICITED RESULTS Final Result Performing Organization Address City/[facility]/ZIP Co de Phone Number [facility] [address] LAB [address] [place] [address] * POCT ACT (06/22/2025 9:28 AM EDT) ACT (Low Range) 177 65 - 400 seconds 07/15/2025 12:47 PM EDT [facility] Pet Feeder ID Aubrey Cordero 07/15/2025 12:47 PM EDT [facility] ACT Device ID [id number] 07/15/2025 12:47 PM EDT [facility] Comment 07/15/2025 12:47 PM EDT [facility] Comment: ACT performed by staff at point of care. Results are reported immediately to the physician or primary caregiver. The activated clotting time is performed on patients with diverse clinical characteristics and treatment histories. Therefore, expected values are variable and results must be interpreted in the context of each individual patient. Whole Blood Venous blood specimen / Unknown 06/22/2025 9:28 AM EDT 07/15/2025 12:47 PM EDT us David Mccoy MD LAB POINT OF CARE TE ST DOCKED DEVICE UNSOLICITED RESULTS Final Result Performing Organization Address City/[facility]/ZIP Co de Phone Number [facility] [address] LAB [address] [place] [address] * POCT ACT (06/22/2025 9:02 AM EDT) ACT (Low Range) 140 65 - 400 seconds 07/15/2025 12:47 PM EDT [facility] Pet Feeder ID Aubrey Cordero 07/15/2025 12:47 PM EDT [facility] ACT Device ID [id number] 07/15/2025 12:47 PM EDT [facility] Comment 07/15/2025 12:47 PM EDT [facility] Comment: ACT performed by staff at point of care. Results are reported immediately to the physician or primary caregiver. The activated clotting time is performed on patients with diverse clinical characteristics and treatment histories. Therefore, expected values are variable and results must be interpreted in the context of each individual patient. Whole Blood Venous blood specimen / Unknown 06/22/2025 9:02 AM EDT 07/15/2025 12:47 PM EDT us David Mccoy MD LAB POINT OF CARE TE ST DOCKED DEVICE UNSOLICITED RESULTS Final Result [facility] [address] [facility] [address] [place] [address] * Type and Screen (06/22/2025 7:39 AM EDT) ABO/Rh A Negative 06/22/2025 7:17 AM EDT [facility] Antibody Screen Negative 06/22/2025 7:17 AM EDT [facility] Specimen Expiration 06/25/2025 23:59 06/22/2025 7:17 AM EDT [facility] Blood Venous blood specimen / Unknown Venipuncture / Unknown 06/22/2025 7:39 AM EDT 06/22/2025 7:47 AM EDT us Jael Lazo MD LAB BLOOD BANK TEST ORDERABLE S Final Result Performing Organization Address City/[facility]/ZIP Co de Phone Number BLOOD BANK [address] [place] [address], * P2Y12 Platelet Receptor Blockade, Verify Now PRU (06/22/2025 7:39 AM EDT) P2Y12 PRU 200 194 - 418 PRU 06/22/2025 8:01 AM EDT [facility] Blood Venous blood specimen / Unknown Venipuncture / Unknown 06/22/2025 7:39 AM EDT 06/22/2025 7:46 AM EDT Narrative [facility] - 06/22/2025 8:01 AM EDT P2Y12 Result Interpretation: P2Y12 values < 194 PRU (low end of reference range) are specific evidence of a P2Y12 inhibitor effect. Test results are in P2Y12 reaction units (PRU). This measures the extent of platelet aggregation in the presence of P2Y12 inhibitor drugs such as clopidogrel (Plavix), prasugrel (Effient), ticagrelor (Brilinta), and ticlopidine (Ticlid). Patients who have been treated with Glycoprotein IIb/IIIa inhibitors should not be tested until platelet function has recovered. This time period is approximately 14 days after discontinuation of abciximab (ReoPro) and up to 48 hours after discontinuation of eptifibatide (Integrilin) and tirofiban (Aggrastat). Result may not be valid for platelet counts < 120 k/uL. The P2Y12 test results should be interpreted in conjunction with other clinical and laboratory data available to the clinician. Testing performed in the [facility]. us Yumi Jefferson MD LAB BLOOD ORDERABLES Final Res ult [facility] [address] [place] [address] documented in this encounter Visit Diagnoses Diagnosis Cerebral aneurysm- Primary Cerebral aneurysm, nonruptured Aneurysm (CMS/HCC) Other aneurysm of unspecified site Pre-op exam Cerebral aneurysm Cerebral aneurysm, nonruptured RLS (restless legs syndrome) Restless legs syndrome (RLS) PAF (paroxysmal atrial fibrillation) ([facility]/HCC) Atrial fibrillation Mixed hyperlipidemia Hypertension Unspecified essential hypertension Gastroesophageal reflux disease without esophagitis Esophageal reflux Coronary artery disease involving red cliff coronary artery of red cliff heart without angina pectoris COPD exacerbation (CMS/HCC) Obstructive chronic bronchitis with exacerbation COPD (chronic obstructive pulmonary disease) ([facility]/HCC) Chronic airway obstruction, not elsewhere classified Anxiety Anxiety state, unspecified Insomnia Insomnia, unspecified Abrasion of left cornea documented in this encounter Admitting Diagnoses Diagnosis Cerebral aneurysm Cerebral aneurysm, nonruptured documented in this encounter Administered Medications Inactive Administered Medications - up to 3 most recent administrations Medication Order MAR Action Action Date Dose Rate Site acetaminophen (Tylenol) tablet 650 mg 650 mg, Oral, Every 6 hours PRN, Starting on Sun06/22/25 at 1651, Until Sun06/23/25 at 1309, Routine, mild pain, fever Given 06/23/2025 8:00 AM EDT 650 mg Given 06/22/2025 9:43 PM EDT 650 mg Given 06/22/2025 5:01 PM EDT 650 mg artificial tears ophthalmic ointment 1 Application Left Eye, 2 times daily, First dose on Sun06/22/25 at 1415, Until Discontinued, Routine Given 06/23/2025 8:05 AM EDT 1 Application Given 06/22/2025 9:43 PM EDT 1 Application Given 06/22/2025 2:20 PM EDT 1 Application aspirin tablet 325 mg 325 mg, Oral, Daily, First dose on Sun06/23/25 at 0900, Until Discontinued, Routine Given 06/23/2025 8:05 AM EDT 325 mg bisoprolol (Zebeta) tablet 5 mg 5 mg, Oral, Daily, First dose on Sun06/22/25 at 1415, Until Discontinued, Routine Given 06/23/2025 8:05 AM EDT 5 mg budesonide (Pulmicort) 0.5 MG/2ML nebulizer solution 0.5 mg 0.5 mg, Nebulization, 2 times daily, First dose on Sun06/22/25 at 1415, Until Discontinued, Routine Given 06/23/2025 8:49 AM EDT 0.5 mg Given 06/22/2025 7:33 PM EDT 0.5 mg calcium gluconate 1 g in sodium chloride 0.9% 100 mL IVPB (vial adapter required) 1 g, Intravenous, Once, 1 dose, On Sun06/23/25 at 0545, at 240 mL/hr, Administer over 30 Minutes, STAT New Bag 06/23/2025 6:37 AM EDT 1 g 240 mL/hr carboxymethylcellulose PF (Refresh Plus) 0.5 % ophthalmic solution 1 drop 1 drop, Left Eye, As needed, Starting on Sun06/22/25 at 1329, Until Sun06/23/25 at 1309, Routine, dry eyes clopidogrel (Plavix) tablet 75 mg 75 mg, Oral, Daily, First dose on Sun06/23/25 at 0900, Until Discontinued, Routine Given 06/23/2025 8:05 AM EDT 75 mg escitalopram (Lexapro) tablet 20 mg 20 mg, Oral, Daily, First dose on Sun06/23/25 at 0900, Until Discontinued, Routine Given 06/23/2025 8:04 AM EDT 20 mg famotidine (Pepcid) tablet 20 mg 20 mg, Oral, 2 times daily, First dose on Sun06/22/25 at 1415, Until Discontinued, Routine Given 06/23/2025 8:05 AM EDT 20 mg Given 06/22/2025 9:43 PM EDT 20 mg Given 06/22/2025 2:20 PM EDT 20 mg fentaNYL (Sublimaze) 50 mcg/mL injection - Pyxis Override Pull 1 dose, Starting on Sun06/22/25 at 1127, Until Sun06/22/25 at 1130 fentaNYL (Sublimaze) injection 25 mcg 25 mcg, Intravenous, Every 5 min PRN, 2 doses, Starting on Sun06/22/25 at 1126, Until Sun06/22/25 at 1145, Routine, Recovery (Phase I only), pain score of 3-4 out of 10 Given 06/22/2025 11:45 AM EDT 25 mcg Given 06/22/2025 11:30 AM EDT 25 mcg gabapentin (Neurontin) capsule 100 mg 100 mg, Oral, 2 times daily, First dose on Sun06/22/25 at 1530, Until Discontinued, Routine Given 06/22/2025 2:51 PM EDT 100 mg gabapentin (Neurontin) capsule 100 mg 100 mg, Oral, 2 times daily, First dose (after last modification) on Sun06/22/25 at 2245, Until Discontinued, Routine Given 06/23/2025 8:05 AM EDT 100 mg Given 06/22/2025 9:53 PM EDT 100 mg hydrALAZINE (Apresoline) injection 10 mg 10 mg, Intravenous, Every 1 hour PRN, Starting on Sun06/22/25 at 1309, Until Sun06/23/25 at 1309, Routine, high blood pressure, SBP > 140 hydrALAZINE (Apresoline) injection 20 mg 20 mg, Intravenous, Every 1 hour PRN, Starting on Sun06/22/25 at 1309, Until Sun06/23/25 at 1309, Routine, high blood pressure, SBP > 140 Given 06/22/2025 11:47 PM EDT 20 mg iohexol (OMNIPaque) 300 MG/ML injection 300 mL 300 mL, Intra-arterial, Once in imaging, 1 dose, Starting on Sun06/22/25 at 1056, Until Sun06/22/25 at 1057, Routine, Imaging Protocol Orders Given 06/22/2025 10:57 AM EDT 195 mL ipratropium-albuterol (Duo-Neb) 0.5-2.5 mg/3 mL nebulizer solution 3 mL 3 mL, Nebulization, Once, 1 dose, On Sun06/22/25 at 0745, Routine, Holding - Preprocedure Given 06/22/2025 7:10 AM EDT 3 mL ipratropium-albuterol (Duo-Neb) 0.5-2.5 mg/3 mL nebulizer solution 3 mL 3 mL, Nebulization, Every 6 hours RT, First dose on Sun06/22/25 at 1500, Until Discontinued, Routine Given 06/22/2025 7:33 PM EDT 3 mL Given 06/22/2025 3:56 PM EDT 3 mL ipratropium-albuterol (Duo-Neb) 0.5-2.5 mg/3 mL nebulizer solution 3 mL 3 mL, Nebulization, Every 6 hours RT, First dose on Sun06/23/25 at 0300, Until Discontinued, Routine Given 06/23/2025 8:50 AM EDT 3 mL Given 06/23/2025 3:12 AM EDT 3 mL ipratropium-albuterol (Duo-Neb) 0.5-2.5 mg/3 mL nebulizer solution 3 mL 3 mL, Nebulization, Every 6 hours PRN, Starting on Sun06/23/25 at 0026, Until Sun06/23/25 at 1309, Routine, wheezing Given 06/23/2025 12:30 AM EDT 3 mL labetalol (Normodyne,Trandate) injection 10 mg 10 mg, Intravenous, Every 1 hour PRN, Starting on Sun06/22/25 at 1309, Until Sun06/23/25 at 1309, Routine, high blood pressure, SBP > 140 Given 06/22/2025 11:08 PM EDT 20 mg labetalol (Normodyne,Trandate) injection 20 mg 20 mg, Intravenous, Every 1 hour PRN, Starting on Sun06/22/25 at 1309, Until Sun06/23/25 at 1309, Routine, high blood pressure, SBP > 140 magnesium sulfate IVPB 4 g 4 g, Intravenous, Once, 1 dose, On Sun06/22/25 at 2000, Routine New Bag 06/22/2025 9:44 PM EDT 4 g 25 mL/hr mometasone-formoterol (Dulera 200) 200-5 MCG/ACT inhaler 2 puff 2 puff, Inhalation, 2 times daily, First dose on Sun06/22/25 at 1415, Until Discontinued, Routine Given 06/23/2025 8:50 AM EDT 2 puffs Given 06/22/2025 8:40 PM EDT 2 puffs Given 06/22/2025 2:24 PM EDT 2 puffs montelukast (Singulair) tablet 10 mg 10 mg, Oral, Nightly, First dose on Sun06/22/25 at 2100, Until Discontinued, Routine Given 06/22/2025 9:43 PM EDT 10 mg mupirocin (Bactroban) 2 % ointment 1 Application Each Nostril, 2 times daily, 10 doses, First dose on Sun06/22/25 at 1315, Last dose on Sun06/26/25 at 2100, Routine Given 06/23/2025 8:05 AM EDT 1 Application Given 06/22/2025 9:44 PM EDT 1 Application ondansetron (Zofran) injection 4 mg 4 mg, Intravenous, Every 6 hours PRN, Starting on Sun06/22/25 at 1309, Until Sun06/23/25 at 1309, Routine, nausea, vomiting ondansetron ODT (Zofran-ODT) disintegrating tablet 4 mg 4 mg, Oral, Every 6 hours PRN, Starting on Sun06/22/25 at 1309, Until Sun06/23/25 at 1309, Routine, nausea, vomiting rOPINIRole (Requip) tablet 1 mg 1 mg, Oral, Once, 1 dose, On Sun06/22/25 at 2000, RoutineIndications:Restless Leg Syndrome Given 06/22/2025 7:48 PM EDT 1 mg senna-docusate (Mary-Colace) 8.6-50 MG per tablet 1 tablet 1 tablet, Oral, 2 times daily, First dose on Sun06/22/25 at 1400, Until Discontinued, Routine Given 06/23/2025 8:05 AM EDT 1 tablet Given 06/22/2025 9:43 PM EDT 1 tablet Given 06/22/2025 2:21 PM EDT 1 tablet sodium chloride 0.9 % flush 10 mL 10 mL, Intravenous, Every 12 hours, First dose on Sun06/22/25 at 1400, Until Discontinued, Routine Given 06/23/2025 2:30 AM EDT 10 mL Given 06/22/2025 2:22 PM EDT 10 mL sodium chloride 0.9 % flush 10 mL 10 mL, Intravenous, As needed, Starting on Sun06/22/25 at 1309, Until Sun06/23/25 at 1309, Routine, line care temazepam (Restoril) capsule 15 mg 15 mg, Oral, Nightly, First dose on Sun06/22/25 at 2300, Until Discontinued, Routine Given 06/22/2025 10:53 PM EDT 15 mg Tiotropium Maddock Monohydrate (Spiriva Respimat) 2.5 MCG/ACT inhaler 2 puff 2 puff, Inhalation, Daily, First dose on Sun06/22/25 at 1415, Until Discontinued, Routine Given 06/23/2025 8:50 AM EDT 2 puffs Given 06/22/2025 2:24 PM EDT 2 puffs traZODone (Desyrel) tablet 50 mg 50 mg, Oral, Once, 1 dose, On Sun06/23/25 at 0115, Routine Given 06/23/2025 12:43 AM EDT 50 mg verapamil (Isoptin) injection Intra-arterial, As needed, Starting on Sun06/22/25 at 0923, Until Sun06/22/25 at 0923, Routine, Intraprocedure Given 06/22/2025 9:23 AM EDT 10 mg documented in this encounter Active and Recently Administered Medications Times are shown in EDT. Scheduled Medication Order 06/21/2025 06/22/2025 06/23/2025 artificial tears ophthalmic ointment 1 Application Left Eye, 2 times daily, First dose on Sun06/22/25 at 1415, Until Discontinued, Routine 1420 (Given - Provider: Marianna Bone)2143 (Given - Provider: Ritchie Porras RN) 0805 (Given - Provider: Armando Cortes RN) aspirin tablet 325 mg 325 mg, Oral, Daily, First dose on Sun06/23/25 at 0900, Until Discontinued, Routine 0805 (Given - Provid er: Armando Cortes RN) bisoprolol (Zebeta) tablet 5 mg 5 mg, Oral, Daily, First dose on Sun06/22/25 at 1415, Until Discontinued, Routine 1756 (Not Given - Provider: Marianna Bone - Reason: Order parameters not met - Comment: SB) 0805 (Given - Provider: Armando Cortes RN) budesonide (Pulmicort) 0.5 MG/2ML nebulizer solution 0.5 mg 0.5 mg, Nebulization, 2 times daily, First dose on Sun06/22/25 at 1415, Until Discontinued, Routine 1333 (Canceled Entry - Provider: Kenya Panchal)1353 (Canceled Entry - Provider: Kenya Panchal)1933 (Given - Provider: Ventura Heredia) 0849 (Given - Provider: Aminah Sanford) calcium gluconate 1 g in sodium chloride 0.9% 100 mL IVPB (vial adapter required) (COMPLETED) 1 g, Intravenous, Once, 1 dose, On Sun06/23/25 at 0545, at 240 mL/hr, Administer over 30 Minutes, STAT 0637 (New Bag - Provider: Ritchie Porras, PAULINO) clopidogrel (Plavix) tablet 75 mg 75 mg, Oral, Daily, First dose on Sun06/23/25 at 0900, Until Discontinued, Routine 0805 (Given - Provid er: Armando Cortes RN) escitalopram (Lexapro) tablet 20 mg 20 mg, Oral, Daily, First dose on Sun06/23/25 at 0900, Until Discontinued, Routine 0804 (Given - Provid er: Armando Cortes RN) famotidine (Pepcid) tablet 20 mg 20 mg, Oral, 2 times daily, First dose on Sun06/22/25 at 1415, Until Discontinued, Routine 1420 (Given - Provider: Marianna Bone)2143 (Given - Provider: Ritchie Porras RN) 0805 (Given - Provider: Armando Cortes RN) gabapentin (Neurontin) capsule 100 mg (CANCELED) 100 mg, Oral, 2 times daily, First dose on Sun06/22/25 at 1530, Until Discontinued, Routine 1451 (Given - Provider: Marianna Bone) gabapentin (Neurontin) capsule 100 mg 100 mg, Oral, 2 times daily, First dose (after last modification) on Sun06/22/25 at 2245, Until Discontinued, Routine 2153 (Given - Provider: Ritchie Porras RN) 0805 (Given - Provider: Armando Cortes RN) iohexol (OMNIPaque) 300 MG/ML injection 300 mL (COMPLETED) 300 mL, Intra-arterial, Once in imaging, 1 dose, Starting on Sun06/22/25 at 1056, Until Sun06/22/25 at 1057, Routine, Imaging Protocol Orders 1057 (Given - Provider: Tramaine Oconnor) ipratropium-albuterol (Duo-Neb) 0.5-2.5 mg/3 mL nebulizer solution 3 mL (COMPLETED) 3 mL, Nebulization, Once, 1 dose, On Sun06/22/25 at 0745, Routine, Holding - Preprocedure 0710 (Given - Provider: Janet Hu) ipratropium-albuterol (Duo-Neb) 0.5-2.5 mg/3 mL nebulizer solution 3 mL (CANCELED) 3 mL, Nebulization, Every 6 hours RT, First dose on Sun06/22/25 at 1500, Until Discontinued, Routine 1556 (Given - Provider: Kenya Panchal)1933 (Given - Provider: Ventura Heredia) ipratropium-albuterol (Duo-Neb) 0.5-2.5 mg/3 mL nebulizer solution 3 mL 3 mL, Nebulization, Every 6 hours RT, First dose on Sun06/23/25 at 0300, Until Discontinued, Routine 311 (Given - Provid er: Ventura Heredia)0850 (Given - Provider: Aminah Sanford) magnesium sulfate IVPB 4 g (COMPLETED) 4 g, Intravenous, Once, 1 dose, On Sun06/22/25 at 2000, Routine 2143 (New Bag - Provider: Ritchie Porras RN) mometasone-formoterol (Dulera 200) 200-5 MCG/ACT inhaler 2 puff(Linked Group 1) 2 puff, Inhalation, 2 times daily, First dose on Sun06/22/25 at 1415, Until Discontinued, Routine 1423 (Given - Provider: Marianna Bone)2039 (Given - Provider: Ventura Heredia) 0850 (Given - Provider: Aminah Sanford) montelukast (Singulair) tablet 10 mg 10 mg, Oral, Nightly, First dose on Sun06/22/25 at 2100, Until Discontinued, Routine 2142 (Given - Provider: Ritchie Porras RN) mupirocin (Bactroban) 2 % ointment 1 Application Each Nostril, 2 times daily, 10 doses, First dose on Sun06/22/25 at 1315, Last dose on Sun06/26/25 at 2100, Routine 1358 (Not Given - Provider: Marianna Bone - Reason: Order parameters not met)2143 (Given - Provider: Ritchie Porras RN) 0805 (Given - Provider: Armando Cortes RN) rOPINIRole (Requip) tablet 1 mg (COMPLETED) 1 mg, Oral, Once, 1 dose, On Sun06/22/25 at 2000, Routine 194 (Given - Provider: Ritchie Porras, PAULINO) senna-docusate (Mary-Colace) 8.6-50 MG per tablet 1 tablet 1 tablet, Oral, 2 times daily, First dose on Sun06/22/25 at 1400, Until Discontinued, Routine 142 (Given - Provider: Marianna Bone)2142 (Given - Provider: Ritchie Porras RN) 0805 (Given - Provider: Armando Cortes RN) sodium chloride 0.9 % flush 10 mL(Linked Group 2) 10 mL, Intravenous, Every 12 hours, First dose on Sun06/22/25 at 1400, Until Discontinued, Routine 1422 (Given - Provider: Marianna Bone) 0230 (Given - Provider: Ritchie Porras RN) temazepam (Restoril) capsule 15 mg 15 mg, Oral, Nightly, First dose on Sun06/22/25 at 2300, Until Discontinued, Routine 2253 (Given - Provider: Ritchie Porras RN) Tiotropium Maddock Monohydrate (Spiriva Respimat) 2.5 MCG/ACT inhaler 2 puff(Linked Group 1) 2 puff, Inhalation, Daily, First dose on Sun06/22/25 at 1415, Until Discontinued, Routine 1424 (Given - Provider: Marianna Bone) 0850 (Given - Provider: Aminah Sanford) traZODone (Desyrel) tablet 50 mg (COMPLETED) 50 mg, Oral, Once, 1 dose, On Sun06/23/25 at 0115, Routine 0043 (Given - Provid er: Ritchie Porras RN) PRN Medication Order 06/21/2025 06/22/2025 06/23/2025 acetaminophen (Tylenol) tablet 650 mg 650 mg, Oral, Every 6 hours PRN, Starting on Sun06/22/25 at 1651, Until Sun06/23/25 at 1309, Routine, mild pain, fever 1701 (Given - Provider: Héctor Erickson RN)2143 (Given - Provider: Ritchie Porras RN) 0800 (Given - Provider: Armando Cortes RN) carboxymethylcellulose PF (Refresh Plus) 0.5 % ophthalmic solution 1 drop 1 drop, Left Eye, As needed, Starting on Sun06/22/25 at 1329, Until Sun06/23/25 at 1309, Routine, dry eyes fentaNYL (Sublimaze) injection 25 mcg (COMPLETED) 25 mcg, Intravenous, Every 5 min PRN, 2 doses, Starting on Sun06/22/25 at 1126, Until Sun06/22/25 at 1145, Routine, Recovery (Phase I only), pain score of 3-4 out of 10 1130 (Given - Provider: Marifer Guadarrama, PAULINO)1145 (Given - Provider: Marifer Guadarrama, PAULINO) hydrALAZINE (Apresoline) injection 10 mg(Linked Group 3) 10 mg, Intravenous, Every 1 hour PRN, Starting on Sun06/22/25 at 1309, Until Sun06/23/25 at 1309, Routine, high blood pressure, SBP > 140 2347 (See Alternative - Provider: Ritchie Porras RN) hydrALAZINE (Apresoline) injection 20 mg(Linked Group 3) 20 mg, Intravenous, Every 1 hour PRN, Starting on Sun06/22/25 at 1309, Until Sun06/23/25 at 1309, Routine, high blood pressure, SBP > 140 2347 (Given - Provider: Ritchie Porras RN) ipratropium-albuterol (Duo-Neb) 0.5-2.5 mg/3 mL nebulizer solution 3 mL 3 mL, Nebulization, Every 6 hours PRN, Starting on Sun06/23/25 at 0026, Until Sun06/23/25 at 1309, Routine, wheezing 0030 (Given - Provid er: Ventura Heredia) labetalol (Normodyne,Trandate) injection 10 mg(Linked Group 4) 10 mg, Intravenous, Every 1 hour PRN, Starting on Sun06/22/25 at 1309, Until Sun06/23/25 at 1309, Routine, high blood pressure, SBP > 140 2308 (Given - Provider: Ritchie Porras RN) labetalol (Normodyne,Trandate) injection 20 mg(Linked Group 4) 20 mg, Intravenous, Every 1 hour PRN, Starting on Sun06/22/25 at 1309, Until Sun06/23/25 at 1309, Routine, high blood pressure, SBP > 140 2308 (See Alternative - Provider: Ritchie Porras RN) ondansetron (Zofran) injection 4 mg(Linked Group 5) 4 mg, Intravenous, Every 6 hours PRN, Starting on Sun06/22/25 at 1309, Until Sun06/23/25 at 1309, Routine, nausea, vomiting ondansetron ODT (Zofran-ODT) disintegrating tablet 4 mg(Linked Group 5) 4 mg, Oral, Every 6 hours PRN, Starting on Sun06/22/25 at 1309, Until Sun06/23/25 at 1309, Routine, nausea, vomiting sodium chloride 0.9 % flush 10 mL(Linked Group 2) 10 mL, Intravenous, As needed, Starting on Sun06/22/25 at 1309, Until Sun06/23/25 at 1309, Routine, line care verapamil (Isoptin) injection (COMPLETED) Intra-arterial, As needed, Starting on Sun06/22/25 at 0923, Until Sun06/22/25 at 0923, Routine, Intraprocedure 0923 (Given - Provider: Yumi Jefferson MD) Linked Groups Order Group 1: Tiotropium Maddock Monohydrate (Spiriva Respimat) 2.5 MCG/ACT inhaler 2 puffJump to med 2 puff, Inhalation, Daily, First dose on Sun06/22/25 at 1415, Until Discontinued, Routine And mometasone-formoterol (Dulera 200) 200-5 MCG/ACT inhaler 2 puffJump to med 2 puff, Inhalation, 2 times daily, First dose on Sun06/22/25 at 1415, Until Discontinued, Routine Group 2: Insert peripheral IV (CANCELED) Once, On Sun06/22/25 at 1310, For 1 occurrence And Saline lock IV (CANCELED) Once, On Sun06/22/25 at 1310, For 1 occurrence And sodium chloride 0.9 % flush 10 mLJump to med 10 mL, Intravenous, Every 12 hours, First dose on Sun06/22/25 at 1400, Until Discontinued, Routine And sodium chloride 0.9 % flush 10 mLJump to med 10 mL, Intravenous, As needed, Starting on Sun06/22/25 at 1309, Until Sun06/23/25 at 1309, Routine, line care Group 3: hydrALAZINE (Apresoline) injection 10 mgJump to med 10 mg, Intravenous, Every 1 hour PRN, Starting on Sun06/22/25 at 1309, Until Sun06/23/25 at 1309, Routine, high blood pressure, SBP > 140 Or hydrALAZINE (Apresoline) injection 20 mgJump to med 20 mg, Intravenous, Every 1 hour PRN, Starting on Sun06/22/25 at 1309, Until Sun06/23/25 at 1309, Routine, high blood pressure, SBP > 140 Group 4: labetalol (Normodyne,Trandate) injection 10 mgJump to med 10 mg, Intravenous, Every 1 hour PRN, Starting on Sun06/22/25 at 1309, Until Sun06/23/25 at 1309, Routine, high blood pressure, SBP > 140 Or labetalol (Normodyne,Trandate) injection 20 mgJump to med 20 mg, Intravenous, Every 1 hour PRN, Starting on Sun06/22/25 at 1309, Until Sun06/23/25 at 1309, Routine, high blood pressure, SBP > 140 Group 5: ondansetron ODT (Zofran-ODT) disintegrating tablet 4 mgJump to med 4 mg, Oral, Every 6 hours PRN, Starting on Sun06/22/25 at 1309, Until Sun06/23/25 at 1309, Routine, nausea, vomiting Or ondansetron (Zofran) injection 4 mgJump to med 4 mg, Intravenous, Every 6 hours PRN, Starting on Sun06/22/25 at 1309, Until Sun06/23/25 at 1309, Routine, nausea, vomiting documented in this encounter Additional Health Concerns Assessment Noted Time A fall risk assessment has been complete d for the patient 06/02/2025 10:25 AM EDT A Body Mass Index follow-up plan has been documented for the patient 06/23/2025 10:11 AM EDT documented as of this encounter Care Teams Hoisting Pile Driving Engineer Relationship Specialty Start Date End Date Michael Baez MD [address] [place] [address] PCP - General 04/08/21 Acacia Scott APRN [address] [place] [address] Nurse Practitioner Cardiology 03/27/22 Virgilio Nguyễn MD [address] [place] [address] Referring Physician 10/07/24 documented as of this encounter
--- OUTSIDE RECORDS SUMMARY | 2025-08-07 13:30 | XMS_ITS | Encounter Summary ---
Author Organization [facility] Address [address] [place] [address] Care Team Providers Care Logistics Assistant Name Role Phone Michael Baez MD Primary Care Provider [phone] Acacia Scott APRN Unavailable [phone] Virgilio Nguyễn MD Unavailable +[phone] Encounter Details Date Type Department Care Team (Late st Contact Info) Description 08/07/2025 1:30 PM EDT [facility] Visit [facility] [address], [address] [place] [address] Anders Sotelo MD [address] [place] [address] Pre-op exam (Primary Dx); Cerebral [...] time in the past 12 m [facility], were you homeless or living in a detention (including now)? 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-DIRECTORY OPERATOR) to steady your nerves or to [...] PTT EKG prealbumin to be done at [facility] next week, faxed electronically through [employer] after midnight. Remain on asa and plavix [...] concerns please feel free to contact us: [facility] Department of Neurosurgery [address], [place] [address] [place] [address] ; Cosigned by Anders Sotelo [...] Description 08/31/2025 1:00 PM EDT Pre-Admission Testing [facility] [address], [address] [place] [address] 09/09/2025 10:15 AM EDT Appointment [facility] Interventional Radiology [address] [place] [address] documented as of this encounter Goals Goal Patient Goal Type Associated Problems Recent Progress Patient-Stated? Author Autogenerat ed Goal Care Plan Autogenerated Problem No Patrick Carolina Marixa documented as of this encounter Visit Diagnoses Diagnosis Pre-op exam- Primary Cerebral aneurysm Cerebral aneurysm, nonruptured documented in this encounter Additional Health Concerns Active Problems Noted Date Diagnosed Date Autogenerated Problem 08/07/2025 Assessment Noted Time A fall risk assessment has been complete d for the patient 08/07/2025 2:23 PM EDT A Body Mass Index follow-up plan has been documented for the patient 08/07/2025 4:31 PM EDT documented as of this encounter Care Teams Logistics Assistant Relationship Specialty Start Date End Date Michael Baez MD [address] [place] [address] PCP - General 04/08/21 Acacia Scott APRN [address] [place] [address] Nurse Practitioner Cardiology 03/27/22 Virgilio Nguyễn MD [address] [place] [address] Referring Physician 10/07/24 documented as of this encounter
--- OUTSIDE RECORDS SUMMARY | 2025-08-17 13:14 | XMS_ITS | Encounter Summary ---
Author Organization [facility] Address [address] [place] [address] Care Team Providers Care Shared Services And Outsourcing Manager Name Role Phone Michael Baez MD Primary Care Provider + [phone] Acacia Scott APRN Unavailable [phone] Virgilio Nguyễn MD Unavailable [phone] Encounter Details Date Type Department Care Team (Latest Contact Info) Description 06/22/2025 Travel Social History Tobacco Use Types Packs/Day [...] any time in the past 12 m [facility], were you homeless or living in a longterm (including now)? 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-MACHINE BUNCH MAKER) to steady your nerves or to get [...] 6. Suicidal Behavior (Lifetime) No 3:00 PM EDT Marianna Bone documented as of this encounter Plan of Treatment Upcoming Encounters Date Type Department Care Team (Latest Contact Info) Description 08/31/2025 1:00 PM EDT Pre-Admission Testing [facility] [address], [address] [place] [address] 09/09/2025 10:15 AM EDT Appointment [facility] Interventional Radiology [address] [place] [address] documented as of this encounter Visit Diagnoses Not on filedocumented in this encounter Additional Health Concerns Assessment Noted Time A fall risk assessment has been complete d for the patient 06/02/2025 10:25 AM EDT A Body Mass Index follow-up plan has been documented for the patient 06/23/2025 10:11 AM EDT documented as of this encounter Care Teams Shared Services And Outsourcing Manager Relationship Specialty Start Date End Date Michael Baez MD [address] [place] [address] PCP - General 04/08/21 Acacia Scott APRN [address] [place] [address] Nurse Practitioner Cardiology 03/27/22 Virgilio Nguyễn MD [address] [place] [address] Referring Physician 10/07/24 documented as of this encounter
--- OUTSIDE RECORDS SUMMARY | 2025-08-17 13:14 | XMS_ITS | Encounter Summary ---
Author Organization [facility] Address [address] [place] [address] Care Team Providers Care Estimator Printing Plate Making Name Role Phone Michael Baez MD Primary Care Provider + [phone] Acacia Scott APRN Unavailable [phone] Virgilio Nguyễn MD Unavailable [phone] Encounter Details Date Type Department Care Team (Latest Contact Info) Description 06/21/2025 Travel Social History Tobacco Use Types Packs/Day [...] any time in the past [address] [facility], were you homeless or living in a [...] drink first t pippa in the morning (EYE-MEDICAL CLERK) to steady your nerves or to get [...] Description 08/31/2025 1:00 PM EDT Pre-Admission Testing [place] [facility] [address], [address] [place] [address] 09/09/2025 10:15 AM EDT Appointment [facility] Interventional Radiology [address] [place] [address] documented as of this encounter Visit Diagnoses Not on filedocumented in this encounter Additional Health Concerns Assessment Noted Time A fall risk assessment has been complete d for the patient 06/02/2025 10:25 AM EDT A Body Mass Index follow-up plan has been documented for the patient 06/02/2025 12:08 PM EDT documented as of this encounter Care Teams Estimator Printing Plate Making Relationship Specialty Start Date End Date Michael Baez MD [address] [place] [address] PCP - General 04/08/21 Acacia Scott APRN [address] [place] [address] Nurse Practitioner Cardiology 03/27/22 Virgilio Nguyễn MD [address] [place] [address] Referring Physician 10/07/24 documented as of this encounter
--- OUTSIDE RECORDS SUMMARY | 2025-08-17 13:14 | XMS_ITS | Clinical Summary ---
Author Organization [facility] Address [address] [address] Phone Care Team Providers Care Aesthetician Name Role Phone Unavailable Primary Care Provider [...] COVID-19 Vaccine (1 - 2023-2 5 season) 2025 Influenza Vaccine (#1) 2025 08/22/2018 Hepatitis B Vaccine Aged Out No longe r eligible based on patient's age to complete this topic Meningococcal B Vaccine Aged Out No l onger eligible based on patient's age to complete [place] [address] [place] [address] [employer] [facility] [place] [address]IC[place] PART A AND B
--- OUTSIDE RECORDS SUMMARY | 2025-08-17 13:15 | XMS_ITS | Encounter Summary ---
Author Organization Healthcare Address [address] [place] [address] Care Team Providers Care Labor Contract Analyst Name Role Phone Michael Baez MD Primary Care Provider + [phone] Acacia Scott FIBER MACHINE TENDER Unavailable [phone] Virgilio Nguyễn MD Unavailable [phone] Elisa Camacho DIVERSIFIED CROPS FARMWORKER Unavailable Unavailab le Encounter Details Date Type Department Care Team (Late st Contact Info) Description 09/01/2024 Orders Only External Location [address] [place] [address] Provider, External Social History Tobacco Use Types [...] drink first t pippa in the morning (EYE-HEAT TREAT OPERATOR) to steady your nerves or to [...] Description 08/31/2025 1:00 PM EDT Pre-Admission Testing [facility] Pre-op Clinic [address], [address] [place] [address] 09/09/2025 10:15 AM EDT Appointment [facility] Interventional Radiology [address] [place] [address] documented as of this encounter Procedures Procedure Name Priority Date/Time Associated Diagnosis Comments XR MSK OUTSIDE IMAGES 09/01/2024 11:29 AM EDT documented in this encounter Results * XR MSK OUTSIDE IMAGES (09/01/2024 11:29 AM EDT) Anatomical Region Laterality Modality Radiographic Debra ging 09/01/2024 11:2 9 AM EDT External Provider IMG XR PROCEDURES Final Result documented in this encounter Visit Diagnoses Not on filedocumented in this encounter Additional Health Concerns Infection Onset Date Last Indicated Resolved Time COVID-19 Rule-Out 05/02/2025 05/02/2025 05/02/2025 4:33 AM EDT Respiratory Rule-Out 05/02/2025 05/02/2025 025 5:41 AM EDT Assessment Noted Time A fall risk assessment has been complete d for the patient 03/31/2024 3:39 PM EDT A Body Mass Index follow-up plan has been documented for the patient 04/10/2024 10:45 PM EDT documented as of this encounter Care Teams Labor Contract Analyst Relationship Specialty Start Date End Date Michael Baez MD [address] [place] [address] PCP - General 04/08/21 Acacia Scott APRN [address] [place] [address] Nurse Practitioner Cardiology 03/27/22 Virgilio Nguyễn MD [address] [place] [address] Referring Physician 10/07/24 Elisa Camacho LPN [facility] TCM Nurse 05/07/2505/26 documented as of this encounter
--- OUTSIDE RECORDS SUMMARY | 2025-08-17 13:15 | XMS_ITS | Encounter Summary ---
Author Organization [facility] Address [address] [place] [address] Care Team Providers Care Contract Specialist Name Role Phone Michael Baez MD Primary Care Provider + [phone] Acacia Scott APRN Unavailable [phone] Virgilio Nguyễn MD Unavailable [phone] Encounter Details Date Type Department Care Team (Late st Contact Info) Description 08/07/2025 Orders Only [place] [facility] [address], [address] [place] [address] Prachi Hodgson PA [address] [place] [address] Cerebral aneurysm (Primary Dx); Pre-op exam Social History Tobacco Use Types Packs/Day Years Used Date Smoking Tobacco: Former Cigarettes 2 63.1 0 11/26/1959 - 12/2022 Passive Smoke Exposure: Current Smokeless Tobacco: Never Alcohol Use Standard Drinks/Week [...] any time in the past 12 m [facility], were you homeless or living in [...] drink first t pippa in the morning (EYE-ARCHIVIST MILITARY HISTORY) to steady your nerves or to get [...] Description 08/31/2025 1:00 PM EDT Pre-Admission Testing [facility] Pre-op Clinic [address], [address] [place] [address] 09/09/2025 10:15 AM EDT Appointment [facility] Interventional Radiology [address] [place] [address] Scheduled Orders Name Type Priority Associated Diagnoses Orde r Schedule CBC and differential Lab Routine Cerebral aneurysm Pre-op exam Expected: 08/14/2025 (Approximate), Expires: 02/08/2027 APTT Lab Routine Cerebral aneurysm Pre-op exam Expected: 08/07/2025 (Approximate), Expires: 02/04/2027 Protime-INR Lab Routine Cerebral aneurysm Pre-op exam Expected: 08/07/2025 (Approximate), Expires: 02/04/2027 Prealbumin Lab Routine Cerebral aneurysm Pre-op exam Expected: 08/14/2025 (Approximate), Expires: 02/04/2027 Comprehensive metabolic panel Lab Routine Cerebral aneurysm Pre-op exam Expected: 08/14/2025 (Approximate), Expires: 02/04/2027 documented as of this encounter Goals Goal Patient Goal Type Associated Problems Recent Progress Patient-Stated? Author Autogenerat ed Goal Care Plan Autogenerated Problem No Patrick, Melena L documented as of this encounter Visit Diagnoses Diagnosis Cerebral aneurysm- Primary Cerebral aneurysm, nonruptured Pre-op exam documented in this encounter Additional Health Concerns Active Problems Noted Date Diagnosed Date Autogenerated Problem 08/07/2025 Assessment Noted Time A fall risk assessment has been complete d for the patient 08/07/2025 2:23 PM EDT A Body Mass Index follow-up plan has been documented for the patient 08/07/2025 4:31 PM EDT documented as of this encounter Care Teams Contract Specialist Relationship Specialty Start Date End Date Michael Baez MD [address] [place] [address] PCP - General 04/08/21 Acacia Scott APRN [address] [place] [address] Nurse Practitioner Cardiology 03/27/22 Virgilio Nguyễn MD [address] [facility] [address] [place] [address] Referring Physician 10/07/24 documented as of this encounter
--- OUTSIDE RECORDS SUMMARY | 2025-08-17 13:15 | XMS_ITS | Encounter Summary ---
Author Organization [facility] Address [address] [place] [address] Care Team Providers Care Oven Technician Name Role Phone Michael Baez MD Primary Care Provider + [phone] Acacia Scott LIBERAL ARTS AND HUMANITIES CHAIR Unavailable [phone] Virgilio Nguyễn MD Unavailable [phone] Encounter Details Date Type Department Care Team (Late st Contact Info) Description 07/09/2025 Orders Only [facility] [address] [place] [phone] Gina Morales, PharmD Social History Tobacco Use Types Packs/Day Years [...] any time in the past [address] [facility], were you homeless or living in [...] first t pippa in the morning (EYE-DIRECTOR INVESTOR RELATIONS) to steady your nerves or to get [...] Description 08/31/2025 1:00 PM EDT Pre-Admission Testing [place] [facility] [address], [address] [place] [address] 09/09/2025 10:15 AM EDT Appointment [facility] Interventional Radiology [address] [place] [address] documented as of this encounter Visit Diagnoses Not on filedocumented in this encounter Additional Health Concerns Assessment Noted Time A fall risk assessment has been complete d for the patient 06/02/2025 10:25 AM EDT A Body Mass Index follow-up plan has been documented for the patient 06/23/2025 10:11 AM EDT documented as of this encounter Care Teams Oven Technician Relationship Specialty Start Date End Date Michael Baez MD [address] [place] [address] PCP - General 04/08/21 Acacia Scott APRN [address] [place] [address] Nurse Practitioner Cardiology 03/27/22 Virgilio Nguyễn MD [address] [facility] [address] [place] [address] Referring Physician 10/07/24 documented as of this encounter
--- OUTSIDE RECORDS SUMMARY | 2025-08-17 13:15 | XMS_ITS | Encounter Summary ---
Author Organization [facility] Address [address] [place] [address] Care Team Providers Care Manager Financial Planning Name Role Phone Michael Baez MD Primary Care Provider + [phone] Acacia Scott APRN Unavailable [phone] Virgilio Nguyễn MD Unavailable [phone] Encounter Details Date Type Department Care Team (Latest Contact Info) Description 08/07/2025 Travel Social History Tobacco Use Types Packs/Day [...] the money to buy more. Never true 06/13/20 25 Within the past 12 months, t [...] any time in the past 12 m [facility], were you homeless or living in a [facility] (including now)? 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-PRINCIPAL TRAINER) to steady your nerves or to get [...] Description 08/31/2025 1:00 PM EDT Pre-Admission Testing [facility] [address], [address] [place] [address] 09/09/2025 10:15 AM EDT Appointment [facility] Interventional Radiology [address] [place] [address] documented as of this encounter Goals Goal Patient Goal Type Associated Problems Recent Progress Patient-Stated? Author Autogenerat ed Goal Care Plan Autogenerated Problem No Carolina Nguyen documented as of this encounter Visit Diagnoses Not on filedocumented in this encounter Additional Health Concerns Active Problems Noted Date Diagnosed Date Autogenerated Problem 08/07/2025 Assessment Noted Time A fall risk assessment has been complete d for the patient 08/07/2025 2:23 PM EDT A Body Mass Index follow-up plan has been documented for the patient 08/07/2025 4:31 PM EDT documented as of this encounter Care Teams Manager Financial Planning Relationship Specialty Start Date End Date Michael Baez MD [address] [place] [address] PCP - General 04/08/21 Acacia Scott APRN [address] [place] [address] Nurse Practitioner Cardiology 03/27/22 Virgilio Nguyễn MD [address] [place] [address] Referring Physician 10/07/24 documented as of this encounter
--- OUTSIDE RECORDS SUMMARY | 2025-08-17 13:15 | XMS_ITS | Encounter Summary ---
Author Organization [facility] Address [address] [place] [address] Care Team Providers Care Hostel Manager Name Role Phone Michael Baez MD Primary Care Provider [phone] Encounter Details Date Type Department Care Team (Late st Contact Info) Description 12/16/2013 Conversion Encounter [facility] HISTORICAL CONV [address] [place] [address] Interface, See Report Social History [...] See Report - 12/16/2013 8:29 AM EST [place] [address] DISCHARGE SUMMARY PATIENT NAME: SUSANNAH ANDRES [address] [facility] NO: [id number] DATE OF : 1950 DATE OF ADMISSION: [...] review of medications, chart and labs. Aliya Miller M.D.* MBS/rxll Voice Rec. ID #[id number] Voice Original ID #[id number] Doc ID #[id number] Rev. #0 cc: Aliya Miller M.D.* Dr. Juan David Lopez M.D.* DO NOT TEXT EDIT THIS LINE :CDS:[id number]: Authenticated and Edited by ALIYA MILLER MD On 12/23/13 12:06:53 PM documented in this encounter H&P Notes * Interface, See Report - 12/16/2013 8:29 AM EST [address] HISTORY AND PHYSICAL PATIENT NAME: SUSANNAH ANDRES 2 [facility] NO: [id number] DATE OF : 1950 DATE OF ADMISSION: 12/16/2013 ADMITTING PHYSICIAN: Aliya iMller M.D. PRIMARY CARE PHYSICIAN: Dr. Garcia formerly Dr. Lynn MIX CHEMIST: Robel Chicas M.D. REFERRING PHYSICIAN: Ingrid Lopez [...] Negative stress test, 06/2013. 3. History of [place]. 4. Obesity with BMI over 32. 5. [...] follow this interesting though complex patient. Aliya Miller M.D.* HARSHAD/danyell Voice Rec. ID #[id number] Voice Original ID #[id number] Doc ID #[id number] Rev. #0 cc: Aliya Miller M.D.* Ingrid Lopez M.D.* DO NOT TEXT EDIT THIS LINE :[facility]:[id number]: Authenticated by ALIYA MILLER MD On 01/06/2014 07:44:48 AM documented in this encounter OR Notes * Op Note - Interface, See Report - 12/16/2013 8:29 AM EST [place] [address] OPERATIVE REPORT PATIENT NAME: SUSANNAH ANDRES1 2 [facility] NO: [id number] DATE OF : 1950 DATE OF OPERATION: 12/16/2013 SURGEON: Ingrid Lopez M.D. IT SOLUTIONS ARCHITECT: Nikole Tovar PA-C PREOPERATIVE DIAGNOSIS: Advanced right [...] closed with #1 Vicryl in an interrupted etxzmd-sh-yymce fashion, followed by closure of the deep [...] 3. Postoperative medical management with Dr. Aliya Miller. 4. Lovenox will be continued for two weeks postoperatively as long as there is no contraindication. Ingrid Lopez M.D.* MK/rxmjh Voice Rec. ID #[id number] Original Voice Rec. ID #[id number] Doc ID #[id number] Revision Count: 0 cc: Ingrid oLpez M.D.* Shahid Fall M.D.* Nikole Tovar PA-C <start header> [place] [address] OPERATIVE REPORT PATIENT NAME: SUSANNAH ANDRES1 2 [facility] NO: [id number] DATE OF : 1950 <end header> DO NOT TEXT EDIT THIS LINE :[facility]S LISTER:[id number]: Authenticated by INGRID LOPEZ M.D. On 12/18/2013 [...] EST) Magnesium 2.0 1.7 - 2.4 mg/dL [facility] Blood specimen (specimen) 12/18/2013 4:49 AM EST Narrative [facility] - 12/18/2013 5:31 AM EST Specimen Type: Blood Aliya Miller MD LAB BLOOD ORDERABLES Fi nal Result [facility] [address] [place] [id number], * (ABNORMAL) CBC (No diff) (12/18/2013 4:49 AM EST) WBC 8.79 3.50 - 10.80 K/[facility] RBC 3.88(L) 3.89 - 5.14 M/[facility] Hemoglobin 11.9 11.5 - 15.5 g/dL [facility] Hematocrit 34.9 34.5 - 44.0 % [facility] MCV 89.9 80.0 - 99.0 fL [facility] MCH 30.7 27.0 - 31.0 pg [facility] MCHC 34.1 32.0 - 36.0 g/dL [facility] RDW-CV 13.1 11.3 - 14.5 % [facility] Platelets 271 150 - 450 K/[facility] Blood specimen (specimen) 12/18/2013 4:49 AM EST [facility] - 12/18/2013 5:15 AM EST Specimen Type: Blood Ingrid Lopez MD LAB BLOOD ORDERABLES Final Res ult Performing Organization Address [facility] [place] [address], * (ABNORMAL) Magnesium (12/17/2013 4:55 AM EST) Pathologist [facility] Magnesium 1.4(L) 1.7 - 2.4 mg/dL [facility] Blood specimen (specimen) 12/17/2013 4:55 AM EST [facility] - 12/17/2013 5:52 AM EST Specimen Type: Blood Aliya Miller MD LAB BLOOD ORDERABLES Fi nal Result Performing Organization Address [facility] [place] [address], * Troponin (12/17/2013 4:55 AM EST) Pathologist [facility] Troponin I 0.04 0.00 - 0.60 ng/mL [facility] Blood specimen (specimen) 12/17/2013 4:55 AM EST [facility] - 12/17/2013 5:52 AM EST Specimen Type: Blood Aliya Miller MD LAB BLOOD ORDERABLES Fi nal Result Performing Organization Address [facility] [place] [address], * Vitamin D 25 hydroxy (12/17/2013 4:55 AM EST) Pathologist [facility] 25 Hydroxy, Vitamin D 52.1 ng/mL [facility] Comment: DF by IF @ 12/17/2013 05:57 Reference Ranges for Total Vitamin D 25(OH) Deficiency <20.0 ng/ml Insufficiency 20-30 ng/ml Sufficiency 30-100 ng/ml Toxicity >100 ng/ml Blood specimen (specimen) 12/17/2013 4:55 AM EST [facility] - 12/17/2013 5:57 AM EST Specimen Type: Blood Aliya Miller MD LAB BLOOD ORDERABLES Fi nal Result Performing Organization Address City/[facility]/[place] [address], * (ABNORMAL) Basic metabolic panel (12/17/2013 4:55 AM EST) Pathologist [facility] Glucose 119(H) 70 - 100 mg/dL [facility] BUN 9 6 - 20 mg/dL [facility] Creatinine 0.9 0.6 - 1.3 mg/dL [facility] Sodium 134(L) 136 - 145 mmol/L [facility] Potassium 3.7 3.4 - 5.4 mmol/L [facility] Chloride 100 98 - 107 mmol/L [facility] CO2 28 20 - 31 mmol/L [facility] Calcium 8.8 8.7 - 10.4 mg/dL [facility] eGFR 67 ml/min/1.7 32 [facility] Comment: DF by IF @ 12/17/2013 05:52 National Kidney Foundation Guidelines Stage Description GFR 1 Normal or High 90+ 2 Mild decrease 60-89 3 Moderate decrease 30-59 4 Severe decrease 15-29 5 Kidney failure <15 Anion Gap 7 3 - 11 mmol/L [facility] Blood specimen (specimen) 12/17/2013 4:55 AM EST Narrative [facility] - 12/17/2013 5:52 AM EST Specimen Type: Blood Aliya Miller MD LAB BLOOD ORDERABLES [facility] Result Performing Organization Address City/State/[facility] [place] [address], * CBC (No diff) (12/17/2013 4:55 AM EST) WBC 9.42 3.50 - 10.80 K/[facility] RBC 4.00 3.89 - 5.14 M/[facility] Hemoglobin 12.3 11.5 - 15.5 g/dL [facility] Hematocrit 36.2 34.5 - 44.0 % [facility] MCV 90.5 80.0 - 99.0 fL [facility] MCH 30.8 27.0 - 31.0 pg [facility] MCHC 34.0 32.0 - 36.0 g/dL [facility] RDW-CV 13.2 11.3 - 14.5 % [facility] Platelets 287 150 - 450 K/[facility] Blood specimen (specimen) 12/17/2013 4:55 AM EST Narrative [facility] - 12/17/2013 5:30 AM EST Specimen Type: Blood Ingrid Lopez MD LAB BLOOD ORDERABLES Final Res ult [facility] [address] [place] [address], * XR KNEE 1 OR 2 VW UNILATERAL (12/16/2013 1:00 PM EST) Anatomical Region Laterality Modality Radiographic Debra ging 12/16/2013 1:00 PM EST Narrative 12/16/2013 1:29 PM EST RIGHT KNEE HISTORY: pain, postop 2 views of the right knee demonstrate a total knee prosthesis. The prosthetic device is well positioned. There is no loosening or dislocation. IMPRESSION- Expected postoperative findings. Gus DAVIS Releasing Carey DAVIS Released Date Time- 12/16/13 1640 Procedure Note Timbo Guan MD - 08/17/2015 RIGHT KNEE HISTORY: pain, postop 2 views of the right knee demonstrate a total knee prosthesis. The prosthetic device is well positioned. There is no loosening or dislocation. IMPRESSION- Expected postoperative findings. Gus DAVIS Releasing Carey DAVIS Released Date Time- 12/16/13 1640 Ingrid Lopez MD IMG DIAGNOSTIC IMAGING ORDERAB LES Final Result * POCT Glucose Fingerstick (12/16/2013 12:51 PM EST) Glucose 118 75 - 125 mg/dL [facility] Blood specimen (specimen) 12/16/2013 12:51 PM EST [facility] - 12/16/2013 12:54 PM EST Specimen Type: Blood Historical Provider POINT OF CARE TEST ORDERA BLES Final Result Performing Organization Address [facility] [place] [address], * (ABNORMAL) OR Potassium (12/16/2013 8:58 AM EST) Potassium 3.46(L) 3.5 - 5.3 mmol/L [facility] Venous blood specimen (specimen) 12/16/2013 8:58 AM EST [facility] - 12/16/2013 9:23 AM EST Specimen Type: Venous Ingrid Lopez MD LAB BLOOD ORDERABLES Final Res ult Performing Organization Address [facility] [place] [address], * Protime-INR (12/16/2013 8:58 AM EST) Protime 10.9 9.6 - 11.5 Seconds [facility] INR 1.02 [facility] Comment: US by IF @ 12/16/2013 09:46 Therapeutic Ranges for INR: 2.0-3.0 (PT 20-30) 2.5-3.5 (PT 25-34) Blood specimen (specimen) 12/16/2013 8:58 AM EST Narrative [facility] - 12/16/2013 9:46 AM EST Specimen Type: Blood Ingrid Lopez MD LAB BLOOD ORDERABLES Final Res ult Performing Organization Address [facility] [place] [address], * Type and screen (12/16/2013 8:58 AM EST) ABORh A Rh Negative [facility] Antibody Screen Negative [facility] Blood specimen (specimen) 12/16/2013 8:58 AM EST Narrative [facility] - 12/16/2013 10:08 AM EST Specimen Type: Blood Ingrid Lopez MD BLOOD BANK TEST ORDERABLES Fin al Result Performing Organization Address [facility] de Phone Number [facility] [address] [place] [address], * SCANNED EKG (12/16/2013) [facility] ECG ORDERABLES Final Result * X-RAY CHEST [...] IMPRESSION- No acute cardiopulmonary disease. E: 12/10/2013 Blogs Manager- ALEKSANDRA Nascimento Radiologist- ELKIN JACKSON [facility] Radiologist- ELKIN JACKSON Released Date Time- 12/10/13 1451 Procedure Note [...] IMPRESSION- No acute cardiopulmonary disease. E: 12/10/2013 Blogs Manager- ALEKSANDRA Nascimento Radiologist- ELKIN JACKSON [facility] Radiologist- ELKIN JACKSON Released Date Time- 12/10/13 1451 Ingrid Lopez MD [facility] DIAGNOSTIC IMAGING ORDERAB LES Final Result * (ABNORMAL) C-reactive protein (12/10/2013 10:30 AM EST) C-Reactive Protein 10.400(H) 0.000 - 10.000 mg/L [facility] Blood specimen (specimen) 12/10/2013 10:30 AM EST Narrative [facility] - 12/10/2013 11:19 AM EST Specimen Type: Serum 1 Ingrid Lopez MD LAB BLOOD ORDERABLES Final Res ult [facility] [address] [place] [address], * Sedimentation rate (12/10/2013 10:30 AM EST) Pathologist [facility] Sed Rate 5 0 - 30 mm/hr [facility] Blood specimen (specimen) 12/10/2013 10:30 AM EST [facility] - 12/10/2013 11:39 AM EST Specimen Type: Blood Ingrid Lopez MD LAB BLOOD ORDERABLES Final Res ult Performing Organization Address [facility] de Phone Number [facility] [address] [place] [address], * APTT (12/10/2013 10:30 AM EST) Pathologist [facility] PTT 27 24 - 31 Seconds [facility] Comment: US by IF @ 12/10/2013 11:14 PTT = The equivalent PTT values for the therapeutic range of heparin levels at 0.3 to 0.5 U/ml are 45 to 60 seconds. PTT = The equivalent PTT values for the therapeutic range of heparin levels at 0.3 to 0.5 U/ml are 45 to 60 seconds. Blood specimen (specimen) 12/10/2013 10:30 AM EST [facility] - 12/10/2013 11:14 AM EST Specimen Type: Blood Ingrid Lopez MD LAB BLOOD ORDERABLES Final Res ult Performing Organization Address [facility] de Phone Number [facility] [address] [place] [address], * Protime-INR (12/10/2013 10:30 AM EST) Pathologist [facility] Protime 10.7 9.6 - 11.5 Seconds [facility] INR 1.00 [facility] Comment: US by IF @ 12/10/2013 11:14 Therapeutic Ranges for INR: 2.0-3.0 (PT 20-30) 2.5-3.5 (PT 25-34) Blood specimen (specimen) 12/10/2013 10:30 AM EST Narrative [facility] - 12/10/2013 11:14 AM EST Specimen Type: Blood Ingrid Lopez MD LAB BLOOD ORDERABLES Final Res ult Performing Organization Address [facility] de Phone Number [facility] [address] [place] [address], * Hemoglobin A1c (12/10/2013 10:30 AM EST) Hemoglobin A1C 5.7 4.00 - 6.00 % [facility] Comment: DF by IF @ 12/10/2013 11:16 The [place] [employer] recommends maintenance of Hemoglobin A1C at 7.0% or lower. Goals for Hemoglobin A1C reduction may need to be modified if hypoglycemia is a problem. Mean Bld Glu Estim. 111 mg/dL [facility] Blood specimen (specimen) 12/10/2013 10:30 AM EST Narrative [facility] - 12/10/2013 11:16 AM EST Specimen Type: Blood Ingrid Lopez MD LAB BLOOD ORDERABLES Final Res ult Performing Organization Address [facility] de Phone Number [facility] [address] [place] [address], * Basic metabolic panel (12/10/2013 10:30 AM EST) Glucose 96 70 - 100 mg/dL [facility] BUN 16 6 - 20 mg/dL [facility] Creatinine 1.0 0.6 - 1.3 mg/dL [facility] Sodium 142 136 - 145 mmol/L [facility] Potassium 3.8 3.4 - 5.4 mmol/L [facility] Chloride 104 98 - 107 mmol/L [facility] CO2 28 20 - 31 mmol/L [facility] Calcium 9.6 8.7 - 10.4 mg/dL [facility] eGFR 60 ml/min/1.7 32 [facility] Comment: DF by IF @ 12/10/2013 11:21 National Kidney Foundation Guidelines Stage Description GFR 1 Normal or High 90+ 2 Mild decrease 60-89 3 Moderate decrease 30-59 4 Severe decrease 15-29 5 Kidney failure <15 Anion Gap 9 3 - 11 mmol/L [facility] Blood specimen (specimen) 12/10/2013 10:30 AM EST Narrative [facility] - 12/10/2013 11:21 AM EST Specimen Type: Blood Ingrid Lopez MD LAB BLOOD ORDERABLES Final Res ult [address] [address] [id number] [place] [address], * (ABNORMAL) CBC and Differential (12/10/2013 10:30 AM EST) WBC 6.61 3.50 - 10.80 K/[facility] RBC 4.85 3.89 - 5.14 /[facility] Hemoglobin 15.2 11.5 - 15.5 g/dL [facility] Hematocrit 43.6 34.5 - 44.0 % [facility] MCV 89.9 80.0 - 99.0 fL [facility] MCH 31.3(H) 27.0 - 31.0 pg [facility] MCHC 34.9 32.0 - 36.0 g/dL [facility] RDW-CV 13.2 11.3 - 14.5 % [facility] Platelets 330 150 - 450 K/[facility] Neutrophils Absolute 3.79 1.50 - 8.30 [facility] Lymphocytes Absolute 2.03 0.60 - 4.80 K/[facility] Monocytes Absolute 0.48 0.00 - 1.00 /[facility] Eosinophils Absolute 0.26 0.10 - 0.30 K/mcL [facility] Basophils Absolute 0.03 0.00 - 0.20 K/[facility] Neutrophil Rel % 57.3 41.0 - 71.0 % [facility] Lymphocyte Rel % 30.7 24.0 - 44.0 % [facility] Monocyte Rel % 7.3 0.0 - 12.0 % [facility] Eosinophil Rel % 3.9(H) 0.0 - 3.0 % [facility] Basophil Rel % 0.5 0.0 - 1.0 % [facility] Immature Granulocyte Rel % 0.3 0.0 - 0.6 % [facility] Blood specimen (specimen) 12/10/2013 10:30 AM EST Narrative [facility] - 12/10/2013 10:56 AM EST Specimen Type: Blood Ingrid Lopez MD LAB BLOOD ORDERABLES Final Res ult [facility] [address] [place] [address], * Urinalysis Without Microscopic (12/10/2013 10:26 AM EST) Color, UA Yellow [facility] Appearance, UA Clear [facility] pH, UA 5.5 4.5 - 8.0 [facility] Specific [place], UA 1.024 1.001 - 1.030 [facility] Glucose, UA Negative NEGATIVE mg/dL [facility] Ketones, UA Negative NEGATIVE [facility] Bilirubin, UA Negative NEGATIVE [facility] Blood, UA Negative NEGATIVE [facility] Protein, UA Negative NEGATIVE mg/dL [facility] Comment: DF by IF @ 12/10/2013 10:55 This test was previously referred to as Albumin Nitrite, UA Negative NEGATIVE [facility] Leukocytes, UA Negative NEGATIVE [facility] Urobilinogen, UA 0.2 0.2 - 1.0 mg/dL [facility] Urine specimen (specimen) Urine specimen obtained by clean catch procedure / Unknown 12/10/2013 10:26 AM EST Narrative [facility] - 12/10/2013 10:55 AM EST Specimen Type: Urine Specimen Source: Clean Catch Urine Microscopic not indicated. Ingrid Lopez MD URINE ORDERABLES Final Result Performing Organization Address City/State/[facility] Co de Phone Number [facility] [address] [place] [address], documented in this encounter Visit Diagnoses Not on filedocumented in this encounter Care Teams Hostel Manager Relationship Specialty Start Date End Date Michael Baez MD Critical access hospital0 [facility] [address] [place] [address] PCP - General Adolescent Medicine 04/25/23 documented as of this encounter
--- OUTSIDE RECORDS SUMMARY | 2025-08-17 13:15 | XMS_ITS | Clinical Summary ---
[facility] Address [address] [place] [address] Care Team Providers Care Bulk Loader Name Role Phone Michael Baez MD Primary Care Provider [phone] Allergies Active Allergy Reactions Criticality Noted Date [...] Comments Diabetes Mother Zoe Urena Osteoporosis Mother oZe Urena Cancer Sister 1 Kait Reese Scoliosis [...] 76 11/17/2016 9:53 AM EST Temperature 36.8 C (98.3 F) 11/17/2016 9:53 AM EST Respiratory Rate 20 11/17/2016 9:53 AM EST Oxygen Saturation 96% 11/17/2016 9:53 AM EST Inhaled Oxygen Concentration - - Weight 86.3 kg (190 lb 3.2 oz) 05/21/2023 2:03 P M EDT Height 158.1 cm (5' 2.25 ) 05/21/2023 2:03 PM ED T Body Mass Index 34.51 05/21/2023 2:03 PM EDT Plan of Treatment Health Maintenance Due Date Last Done Comments DXA SCAN 1950 TDAP/TD VACCINES (1 - Tdap) 1970 MAMMOGRAM 1991 COLOGUARD 1996 COLON CANCER SCREENING 5 YEA R SIGMOIDOSCOPY 1996 COLONOSCOPY 1996 COL[address]AL CANCER SCREENING 1996 CT COLONOGRAPHY 1996 FECAL OCCULT BLOOD TEST 1996 FIT Testing (1 year) 1996 ZOSTER VACCINE (1 of 2) 2001 ANNUAL WELLNESS VISIT 08/13/2017 Pneumococcal Vaccine 50+ (2 of 2 - PCV) 05/26/2022 05/26/2021 INFLUENZA VACCINE 06/26/2025 12/11/2019, , 08/22/2018, Additional history exists COVID-19 Vaccine (1 - 2023-2 5 season) 2025 LUNG CANCER SCREENING Discontinued 08/07/2022 HEPATITIS C SCREENING Completed 05/01/2025 Insurance MEDICARE A & B Member Subscriber Plan / Payer (Ef fective 2004-Present) Name:Supriya Andres Member ID:[id number] Relation to Subscriber:Self Name:Supriya Andres Subscriber ID:[id number] Payer ID:[id number] Group ID:Not on file Type:Not on file Address: [address] MEDICARE REPLACEMENT Care Teams Bulk Loader Relationship Specialty Start Date End Date Michael Baez MD [address] [facility] [address] [place] [address] PCP - General Adolescent Medicine 04/25/23
--- OUTSIDE RECORDS SUMMARY | 2025-08-17 13:15 | XMS_ITS | Encounter Summary ---
[facility] Address [address] [place] [address] Care Team Providers Care Getter Filler Name Role Phone Michael Baez MD Primary Care Provider Encounter Details Date Type Department Care Team (Late st Contact Info) Description 12/11/2018 External CPT II [facility] Social History Tobacco Use [...] on filedocumented in this encounter Care Teams Getter Filler Relationship Specialty Start Date End Date Michael Baez MD [address] [facility] [address] [facility] [address] PCP - General Adolescent Medicine 04/25/23 documented as of this encounter
--- OUTSIDE RECORDS SUMMARY | 2025-08-17 13:15 | XMS_ITS | Clinical Summary ---
Author Organization [facility] Address [address] [id number] Care Team Providers Care Senior Policy Analyst Name Role Phone Michael Baez MD Primary Care Provider + [phone] Acacia Scott APRN Unavailable [phone] Virgilio Nguyễn MD Unavailable [phone] Allergies Active Allergy Reactions Criticality Noted Date Comments Codeine Hives,Itching,Nausea And Vomiting,Rash,Other - please document in the comment field Medium 2008 Diazepam Other - please document in the comment field Low 2008 states it makes me crazy and antsy , paradoxical reaction Diphenhydramine Anaphylaxis,Hives,It ch ing,Rash,Other - please document in the comment field High 2008 Hydrocodone Hives Medium 05/01/2025 Hydromorphone Other - please document in the comment field Low 05/01/2025 Isosorbide Headache,Other - please document in the comment field High 03/11/2024 Lorazepam Other - please document in the comment field,Anxiety Low 05/01/2025 states it makes me crazy and antsy , paradoxical reaction Penicillins Hives,Itching,Rash,S ho rtness of breath High 02/16/2009 Tolerated ceftriaxone for 5 days patient reported recently tried medication with any reaction Medications albuterol 108 (90 Base) MCG/ACT inhaler Inhale 2 puffs every 4 hours as needed. 02/05/20 20 Active famotidine (Pepcid) 20 MG tablet Take 1 tablet by mouth 2 times a day as needed. 08/15/20 21 Active rOPINIRole (Requip) 1 MG tablet Take 1 tablet by mouth 3 times a day. 1 tab in the morning, 1 tab in the evening, 1 tab nightly 08/15/20 21 Active temazepam (Restoril) 15 MG capsule Take 1 capsule by mouth nightly. 08/14/20 22 Active fluticasone (Flonase) 50 MCG/ACT nasal spray Administer 1 spray into each nostril daily. 11/06/20 22 Active Fasenra Pen 30 MG/ML solution auto-injector injection Inject 1 mL under the skin every 56 days. 03/13/20 24 Active Gemtesa 75 MG tablet Take 75 mg by mouth daily. Active Eliquis 5 MG tablet TAKE 1 TABLET BY MOUTH TWO TIMES A DAY 180 tablet 3 01/20/20 25 Active pantoprazole (Protonix) 40 MG EC tablet Take 1 tablet by mouth daily before breakfast. Do not crush, chew, or split. Active traZODone (Desyrel) 50 MG tablet Take 1 tablet by mouth nightly. Active clopidogrel (Plavix) 75 MG tablet Take 1 tablet by mouth daily. Active bisoprolol (Zebeta) 5 MG tablet Take 1 tablet by mouth daily. Active budesonide (Pulmicort) 0.5 MG/2ML nebulizer solution Take 2 mL by nebulization 2 times a day. Rinse mouth with water after use to reduce aftertaste and incidence of candidiasis. Do not swallow. Active montelukast (Singulair) 10 MG tablet Take 1 tablet by mouth nightly. Active escitalopram (Lexapro) 20 MG tablet Take 1 tablet by mouth daily. Active empagliflozin (Jardiance) 10 MG Take 1 tablet by mouth daily. 30 tablet 05/07/20 25 Active Evolocumab (Repatha) 140 MG/ML solution auto-injector autoinjector Inject 1 mL under the skin every 14 days. 6 mL 1 05/07/20 25 Active azelastine (Astelin) 0.1 % nasal spray 07/04/20 24 Active gabapentin (Neurontin) 100 MG capsule TAKE 1 CAPSULE BY MOUTH IN THE AFTERNOON AND TAKE 1 OR 2 CAPSULES AT BEDTIME 05/12/20 25 Active acetaminophen (Tylenol 8 Hour) 650 MG ER tablet Take 1 tablet by mouth every 8 hours as needed for mild pain. Do not crush, chew, or split. Active ipratropium-albu terol (Combivent Respimat) 20-100 MCG/ACT inhaler Inhale 1 puff 4 times a day as needed for wheezing or shortness of breath. Active Budeson-Glycopyr rol-Formoterol (Breztri Aerosphere) 160-9-4.8 MCG/ACT aerosol Inhale 2 puffs 2 times a day. Active cetirizine (ZyrTEC) 10 MG tablet 1 tablet. 01/31/20 Active Entresto 24-26 MG tablet 08/05/20 25 Active gabapentin (Neurontin) 300 MG capsule Take 1 capsule by mouth 3 times a day. 08/06/20 25 Active aspirin 81 MG EC tabletIndication s:Cerebral aneurysm Take 1 tablet by mouth daily. 30 tablet 08/07/20 25 Active aspirin (Ecotrin) 325 MG EC tabletIndication s:Cerebral aneurysm Take 1 tablet by mouth daily. 30 tablet 08/07/20 025 Discontin ued(Dose adjustmen t) Active Problems Problem Noted Date Diagnosed Date Cerebral aneurysm 06/22/2025 Overview (06/22/2025): Right JONAH A2 segment aneurysm treated with first stage intracranial stent from right A2-A1 Continue ASA 81 mg and Plavix 75 mg daily (first dose tomrrow) Femoral access, Angioseal SBP<140 Assessment & Plan (06/22/2025 1:28 PM EDT): Right JONAH A2 segment aneurysm treated with first stage intracranial stent from right A2-A1 Continue ASA 81 mg and Plavix 75 mg daily (first dose tomrrow) Femoral access, Angioseal SBP<140 COPD (chronic obstructive pulmonary disease) Assessment & Plan (06/22/2025 1:28 PM EDT): Resume home medications as appropriate Anxiety 06/22/2025 Assessment & Plan (06/22/2025 1:28 PM EDT): Resume home temazepam as appropriate Insomnia 06/22/2025 Assessment & Plan (06/22/2025 1:28 PM EDT): Continue home trazodone as appropriate Abrasion of left cornea 06/22/2025 Assessment & Plan (06/22/2025 1:28 PM EDT): Continue home lacrilube RLS (restless legs syndrome) 08/15/2022 Assessment & Plan (06/22/2025 1:28 PM EDT): Continue home requip Gastroesophageal reflux disease without esophagi tis 07/18/2022 Assessment & Plan (06/22/2025 1:28 PM EDT): Continue pepcid Mixed hyperlipidemia 08/28/2021 Assessment & Plan (06/22/2025 1:28 PM EDT): -Monitor per protocol. Coronary artery disease invo lving kaibab coronary artery of kaibab heart without angina pectoris 05/13/2019 Assessment & Plan (06/22/2025 1:28 PM EDT): Resume home medications as appropriate Hypertension 05/02/2019 Assessment & Plan (06/22/2025 1:28 PM EDT): SBP<140 Continue prn labetalol and hydralazine PAF (paroxysmal atrial fibrillation) 02/13/2019 Assessment & Plan (06/22/2025 1:28 PM EDT): Continue bisoprolol Hold home eliquis Resolved Problems Problem Noted Date Diagnosed Date Resolved Date CAP (community acquired pneumonia) 05/02/2025 06/22/2025 CHF exacerbation 05/02/2025 06/22/2025 Brain aneurysm 05/02/2025 06/22/2025 Community acquired pneumonia , unspecified laterality 05/02/2025 06/22/2025 Arthritis of right hip 10/07/202406/22 Acute coronary syndrome 10/07/202405/27 Muscle cramps 04/10/2024 06/22/2025 Abnormal echocardiogram 10/02/202205/27 COPD exacerbation 08/15/2022 06/22/2025 Elevated troponin 08/15/2022 06/22/2025 Hypercholesterolemia 01/02/2020 025 Compression fracture of vertebra 05/13/2019 06/22/2025 Palpitations 05/02/2019 06/22/2025 Sleep apnea 05/02/2019 06/22/2025 Chronic obstructive lung disease 09/11/2017 06/22/2025 Encounters Date Type Department Care Team Description 08/07/2025 1:30 PM EDT Office Visit [facility] [address] [place] [address] Anders Sotelo MD Pre-op exam (Primary Dx); Cerebral aneurysm 08/07/2025 Orders Only [facility] [address] [place] [address] Prachi Hodgson PA Cerebral aneurysm (Primary Dx); Pre-op exam 08/07/2025 Travel 07/09/2025 Orders Only [facility] [address] [place] [address] Gina Morales, PharmD 06/22/2025 12:24 PM EDT - 06/23/2025 11:09 AM EDT Hospital Encounter [facility] [address] [place] [address] David Hicks MD [facility] Cerebral aneurysm (Primary Dx); Aneurysm ([facility]); Pre-op exam Discharge Disposition: Home or Self Care 06/22/2025 8:14 AM EDT Anesthesia Event [facility] Interventional Radiology [address] [place] [address] Jael Lazo MD Campbell, Robert C, JOSE 06/22/2025 Travel 06/21/2025 Travel 06/10/2025 3:30 PM EDT Pre-Admission Testing [facility] [address] [place] [address] 06/10/2025 Travel 06/04/2025 Telephone [facility] [address] [place] [address] Katarina Marquez, PharmD 06/04/2025 Travel 06/02/2025 10:40 AM EDT Office Visit [place] [facility] [address] [place] [id number] David Hicks MD Pre-op exam (Primary Dx) 06/02/2025 Travel from Last 3 Months Immunizations Immunization Administration Dates Next Due Influenza, high-dose, quadrivalent 12/11/2019, Pneumococcal Polysaccharide PPV23 05/26/2021 Family History Medical History Relation Name Comments Coronary artery disease Father Coronary artery disease Mother Migraines Sister Kait Reese Anesthesia problems Neg Hx Malig Hyperthermia Neg Hx Relation Name Status Comments Father Mother Sister Kait Reese Alive Social History Tobacco Use Types Packs/Day Years [...] any time in the past 12 [facility], were you homeless or living [...] drink first t 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) to steady your nerves or [...] Pulse 58 08/07/2025 2:14 PM EDT Temperature 36.8 C (98.2 F) 06/23/2025 8:00 AM EDT Respiratory Rate 13 06/23/2025 10:00 AM EDT Oxygen Saturation 96% 08/07/2025 2:14 PM EDT Inhaled Oxygen Concentration - - Weight 72.3 kg (159 lb 6.3 oz) 08/07/2025 2:14 P M EDT Height 162.6 cm (5' 4 ) 08/07/2025 2:14 PM EDT Body Mass Index 27.36 08/07/2025 2:14 PM EDT Plan of Treatment Upcoming Encounters Date Type Department Care Team (Latest Contact Info) Description 08/31/2025 1:00 PM EDT Pre-Admission Testing [place] [facility] [address], [address] [place] [address] 09/09/2025 10:15 AM EDT Appointment [facility] Interventional Radiology [address] [place] [address] Health Maintenance Due Date Last Done Comments [facility]-Bone Density Scan 1950 [facility]-Medicare Annual Wellness (AWV) 1950 [facility]-Infant/Child/Adol SDOH Screenings 1950 [facility]-DTaP,Tdap,and Td Vaccines (1 - Tdap) 1970 CT Colonography 1996 Colonoscopy 1996 FIT-DNA 1996 FIT 1996 FOBT 1996 Sigmoidoscopy 1996 [facility]-Colorectal Cancer Screening 1996 [facility]-Breast Cancer Screening 2001 [facility]-Zoster Vaccines (1 of 2) 2001 [facility]-RSV Vaccine: 60+ Years or (1 - Risk 60-74 years 1-dose series) 2011 [facility]-Lung Cancer Screening 08/07/2023 08/07/2022 [facility]-Depression Screening 03/31/2025 03/31/2024 [id number] Vaccine ( - season) 2025 [facility]- SDOH Screenings 11/04/2025 [facility]-Adult SDOH Screenings 11/04/2025 05/05/2025 [facility]-Hepatitis C Screening Completed 05/01/2025, 10/2022 [facility]-Influenza Vaccine Completed 08/06/2025 , 08/04/2024, 12/11/2019, Additional history exists [facility]-Pneumococcal Vaccine: 50+ Years Completed 08/06/2025, 05/26/2021 [facility]-Obesity Intervention Completed 025, 06/22/2025, 06/02/2025, Additional history exists HPV Vaccines Aged Out [...] on patient's age to complete this topic Goals Goal Patient Goal Type Associated Problems Recent Progress Patient-Stated? Author Autogenerat ed Goal Care Plan Autogenerated Problem No Carolina Nguyen Medical Devices Implanted Type Area Director Multimedia Device Identifier Shelf Expiration Date Model / Serial / Lot Stent Without Tip [place] 3mm X 24mm - [id number] Implanted:Qty: 1 on 06/22/2025 by Marifer House, PAULINO at [facility] Ann [id number] 01/31/2030 [id number] / / [id number] Vip Vascular Closure Device 6 Fr - [id number] Implanted:Qty: 1 on 06/22/2025 by Marifer House, PAULINO at [facility] [id number] 02/23/2026 [id number] / / [id number] Procedures Procedure Name Priority Date/Time Associated Diagnosis Comments PHOSPHORUS, PLASMA Routine 06/23/2025 3: 16 AM EDT MAGNESIUM, PLASMA Routine 06/23/2025 3:1 6 AM EDT IONIZED CALCIUM, WHOLE BLOOD Routine 06/23/2025 3:16 AM EDT CBC W/O DIFFERENTIAL Routine 06/23/2025 3:16 AM EDT BASIC METABOLIC PANEL, PLASMA Routine 06/23/2025 3:16 AM EDT PHOSPHORUS, PLASMA Routine 06/22/2025 6: 13 PM EDT MAGNESIUM, PLASMA Routine 06/22/2025 6:1 3 PM EDT IONIZED CALCIUM, WHOLE BLOOD Routine 06/22/2025 6:13 PM EDT CBC W/O DIFFERENTIAL Routine 06/22/2025 6:13 PM EDT BASIC METABOLIC PANEL, PLASMA Routine 06/22/2025 6:13 PM EDT MO CRITICAL CARE, ADDL 30 MIN Routine 06/22/2025 1:26 PM EDT Cerebral aneurysm DELMY AURIS SURVEILLANCE BY PCR Routine 06/22/2025 12:30 PM EDT MULTI DRUG RESISTANCE TEST Routine 06/22/2025 12:30 PM EDT OXYGEN THERAPY Routine 06/22/2025 11:11 AM EDT OXYGEN THERAPY Routine 06/22/2025 11:11 AM EDT OXYGEN THERAPY Routine 06/22/2025 11:11 AM EDT IR ARTERIAL EMBOLIZATION Routine 06/22/2025 11:03 AM EDT Aneurysm ([facility]) POCT ACT UNSOLICITED RESULTS Routine 06/22/2025 10:50 AM EDT POCT ACT UNSOLICITED RESULTS Routine 06/22/2025 10:27 AM EDT POCT ACT UNSOLICITED RESULTS Routine 06/22/2025 9:52 AM EDT POCT ACT UNSOLICITED RESULTS Routine 06/22/2025 9:28 AM EDT POCT ACT UNSOLICITED RESULTS Routine 06/22/2025 9:02 AM EDT MO AN ELECTIVE ENDOTRACHEAL AIRWAY Routine 06/22/2025 8:25 AM EDT PB ANESTHESIA NON-TIMED PROCEDURE PLACEHOLDER Routine 06/22/2025 8:15 AM EDT TYPE AND SCREEN Routine 06/22/2025 7:39 AM EDT PLATELET P2Y12 RECEPTOR BLOCKADE, VERIFY NOW PRU STAT 06/22/2025 7:39 AM EDT HEMOGLOBIN A1C Routine 06/02/2025 11:38 AM EDT Arthritis of right hip NICOTINE AND COTININE METABOLITE, SERUM, QUANTITATIVE Routine 06/02/2025 11:38 AM EDT Arthritis of right hip PROTHROMBIN TIME(PT) / INR Routine 06/02/2025 11:38 AM EDT Pre-op exam APTT Routine 06/02/2025 11:38 AM EDT Pre-op exam CBC WITH AUTO DIFFERENTIAL Routine 06/02/2025 11:38 AM EDT Pre-op exam COMPREHENSIVE METABOLIC PANEL, PLASMA Routine 06/02/2025 11:38 AM EDT Pre-op exam PREALBUMIN, PLASMA Routine 06/02/2025 11 :38 AM EDT Pre-op exam HEPATITIS C ANTIBODY - ED W/REFLEX TO HCV QUANT PCR STAT 05/01/2025 8:[address] CHEST WO IV CONTRAST STAT 08/07/2022 1:12 PM EDT from Last 3 Months or Most Recently Relevant to Health Maintenance Results * (ABNORMAL) Ionized calcium, whole blood (06/23/2025 3:16 AM EDT) Only the most recent of2 resultswithin the time period is included. Ionized Calcium, Whole Blood 4.4(L) 4.6 - 5.1 mg/dL LAB HEMATOLOGY METHOD 06/23/2025 3:22 AM EDT [facility] Blood Venous blood specimen / Unknown Venipuncture / Unknown 06/23/2025 3:16 AM EDT 06/23/2025 3:21 AM EDT Sly Pat SHEET FED PRINTER LAB BLOOD ORDERABLES Anastacia sneed Result [facility] [address] [place] [address] * (ABNORMAL) CBC W/O Differential (06/23/2025 3:16 AM EDT) Only the most recent of2 resultswithin the time period is included. WBC Count 7.60 3.70 - 10.30 10*3/uL LAB HEMATOLOGY METHOD 06/23/2025 3:32 AM EDT [facility] RBC Count 3.51(L) 3.90 - 5.20 10*6/uL LAB HEMATOLOGY METHOD 06/23/2025 3:32 AM EDT [facility] HGB 11.0(L) 11.2 - 15.7 g/dL LAB HEMATOLOGY METHOD 06/23/2025 3:32 AM EDT [facility] HCT 33.7(L) 34.0 - 45.0 % LAB HEMATOLOGY METHOD 06/23/2025 3:32 AM EDT [facility] Platelet Count 273 155 - 369 10*3/uL LAB HEMATOLOGY METHOD 06/23/2025 3:32 AM EDT [facility] MCV 96 79 - 98 fL LAB HEMATOLOGY METHOD 06/23/2025 3:32 AM EDT [facility] MCH 31.3 26.0 - 32.0 pg LAB HEMATOLOGY METHOD 06/23/2025 3:32 AM EDT [facility] MCHC 32.6 30.7 - 35.5 g/dL LAB HEMATOLOGY METHOD 06/23/2025 3:32 AM EDT [facility] RDW 13.2 11.5 - 14.5 % LAB HEMATOLOGY METHOD 06/23/2025 3:32 AM EDT [facility] MPV 9.3 8.8 - 12.5 fL LAB HEMATOLOGY METHOD 06/23/2025 3:32 AM EDT [facility] nRBC 0.0 <=0.0 per 100 WBCs LAB HEMATOLOGY METHOD 06/23/2025 3:32 AM EDT [facility] Blood Venous blood specimen / Unknown Venipuncture / Unknown 06/23/2025 3:16 AM EDT 06/23/2025 3:21 AM EDT Sly Pat APRN LAB BLOOD ORDERABLES Anastacia l Result Performing Organization Address City/[facility] Co de Phone Number [facility] [address] [place] [address] * Phosphorus, Plasma (06/23/2025 3:16 AM EDT) Only the most recent of2 resultswithin the time period is included. Phosphorus, Plasma 2.5 2.5 - 4.5 mg/dL 06/23/2025 3:51 AM EDT [facility] Blood Venous blood specimen / Unknown Venipuncture / Unknown 06/23/2025 3:16 AM EDT 06/23/2025 3:21 AM EDT Sly Pat APRN LAB BLOOD ORDERABLES Anastacia l Result Performing Organization Address [facility] de Phone Number [facility] [address] [place] [address] * (ABNORMAL) Magnesium, Plasma (06/23/2025 3:16 AM EDT) Only the most recent of2 resultswithin the time period is included. Magnesium, Plasma 2.9(H) 1.9 - 2.4 mg/dL 06/23/2025 3:51 AM EDT [facility] Blood Venous blood specimen / Unknown Venipuncture / Unknown 06/23/2025 3:16 AM EDT 06/23/2025 3:21 AM EDT Sly Pat APRN LAB BLOOD ORDERABLES Anastacia l Result Performing Organization Address City/[facility]/ZIP Co de Phone Number [facility] [address] [place] [address] * (ABNORMAL) Basic Metabolic Panel, Plasma (06/23/2025 3:16 AM EDT) Only the most recent of2 resultswithin the time period is included. Glucose, Plasma 124(H) 74 - 99 mg/dL 06/23/2025 3:51 AM EDT [facility] BUN, Plasma 12 8 - 23 mg/dL 06/23/2025 3:51 AM EDT [facility] Creatinine, Plasma 0.40(L) 0.60 - 1.10 mg/dL 06/23/2025 3:51 AM EDT [facility] BUN/Creatinine Ratio 30 06/23/2025 3:51 AM EDT [facility] Sodium, Plasma 141 136 - 145 mmol/L 06/23/2025 3:51 AM EDT [facility] Potassium, Plasma 3.8 3.6 - 4.9 mmol/L 06/23/2025 3:51 AM EDT [facility] Chloride, Plasma 110(H) 97 - 107 mmol/L 06/23/2025 3:51 AM EDT [facility] CO2, Plasma 22 22 - 29 mmol/L 06/23/2025 3:51 AM EDT [facility] Anion Gap 9 6 - 16 mmol/L 06/23/2025 3:51 AM EDT [facility] Total Calcium, Plasma 8.2(L) 8.9 - 10.2 mg/dL 06/23/2025 3:51 AM EDT [facility] eGFRcr 104.7 mL/min/1.7 3m*2 06/23/2025 3:51 AM EDT [facility] Comment:Reported eGFRcr in m L/min/1.73m2 is based the CKD-EPI 2020 equation that does not use a race coefficient. Blood Venous blood specimen / Unknown Venipuncture / Unknown 06/23/2025 3:16 AM EDT 06/23/2025 3:21 AM EDT us Sly Pat SHEET FED PRINTER LAB BLOOD ORDERABLES Anastacia sneed Result [facility] [address] [place] [address] * MO CRITICAL CARE, ADDL 30 MIN (06/22/2025 1:26 [...] day: yes Comments: Staffed with Dr. Fuller us Daphne Luis APRN, DNP IN CLINIC/BEDSIDE OR DERABLES Final Result * Delmy auris Surveillance by PCR (06/22/2025 12:30 PM EDT) Delmy auris PCR Result Not Detected Not Detected 06/23/2025 7:10 AM EDT [facility] Swab (Axilla and Groin) Non-blood Collection / Unknown 06/22/2025 12:30 PM EDT 06/22/2025 12:36 PM EDT Narrative [facility] - 06/23/2025 7:10 AM EDT This PCR assay was developed and its performance characteristics determined by [facility] as appropriate for clinical purposes. This assay has not been cleared or approved by the FDA, but is performed in a CLIA regulated laboratory that is qualified to perform high-complexity testing. us David Hicks MD LAB MICROBIOLOGY - GENERAL OR DERABLES Final Result [facility] [address] [place] [address] * Multi Drug Resistance Test (06/22/2025 12:30 PM EDT) Culture No growth at day 1 06/23/2025 1:[address] [facility] [place] Swab (Nares and Mary Rectal) Non-blood Collection / Unknown 06/22/2025 12:30 PM EDT 06/22/2025 12:36 PM EDT Narrative [facility] - 06/23/2025 1:09 PM EDT This test was developed and its performance characteristics determined by the [facility]. Although the media is FDA-approved, it is not FDA-approved for all specimen types submitted. The FDA has determined that such clearance or approval is not necessary. This test is used for surveillance purposes. It should not be regarded as investigational or for research. The [facility] is certified under the Clinical Laboratory Improvement Amendments of 1988 (CLIA-88) as qualified to perform high complexity clinical laboratory testing. us David Hicks MD LAB MICROBIOLOGY - GENERAL OR DERABLES Final Result [facility] [place] [address] [place] [address] * IR Arterial Embolization (06/22/2025 11:03 AM [...] performed with associated post processing by David Hicks MD. The raw data was post-processed at [...] out the microcatheter. 3 x 24 mm [place] Neuroform stent was advanced through the first, [...] in lateral and oblique views. The Neuroform [place] stent is patent with no evidence of [...] in lateral and oblique views. The Neuroform [place] stent is patent with no evidence of [...] status, without hematoma. MATERIALS EMPLOYED: 1. 6 Maltese slender radial sheath 2. Benchmark guide cathter 3. La 2 diagnostic catheter 4. Terumo Glidewire 0.035 5. Glidewire advantage 6. SL 10 microcatheter 7. Buzz microwire 0.014 8. [place] Neuroform Stent 9. Trevo stent retriever 3 x 32 mm 10. TR band. Preliminary report signed by Yumi Jefferson on 06/23/2025 10:39 AM By electronically signing this report, I, the attending physician, attest that I was present for the entire procedure(s) and agree with the final edited report. Drafted by Yumi Jefferson on 06/22/2025 4:10 PM Final report signed by David Hicks MD on 06/24/2025 2:15 PM Narrative 06/24/2025 2:15 PM EDT OPERATIVE REPORT SURGEON: DAVID HICKS MD PROCEDURE DATE: 06/22/2025 9:02 AM SALES REPRESENTATIVE GAS SERVICE: Yumi Jefferson MD I, the attending and teaching physician, was present during the haro portions of this procedure. I was immediately available for all remaining portions of the procedure. PREOPERATIVE DIAGNOSIS: Right anterior cerebral artery, anterior internal frontal bifurcation, bifurcation aneurysm Procedure Note David Hicks MD - 06/24/2025 OPERATIVE REPORT SURGEON: DAVID HICKS MD PROCEDURE DATE: 06/22/2025 9:02 AM SALES REPRESENTATIVE GAS SERVICE: Yumi Jefferson MD I, the attending and teaching physician, was [...] was performed with associated post processingby David Hicks MD. The raw data was post-processed at [...] cerebral artery A2 segment aneurysm note. Aneurysm [id number] mm x 14.1 mm with 4.6 mm [...] out the microcatheter. 3 x 24 mm [place] Neuroform stent wasadvanced through the first, SL [...] head in lateral and oblique views. TheNeuroform [place] stent is patent with no evidence of [...] head in lateral and oblique views. TheNeuroform [place] stent is patent with no evidence of [...] unchanged neurologicalstatus, without hematoma. MATERIALS EMPLOYED: 1.6 Maltese slender radial sheath 2.Benchmark guide cathter 3.La 2 diagnostic catheter 4.Terumo Glidewire 0.035 5.Glidewire advantage 6.SL 10 microcatheter 7.Buzz microwire 0.014 8.[place] Neuroform Stent 9.Trevo stent retriever 3 x 32 mm 10.TR band. Preliminary report signed by Yumi Jefferson on 06/23/2025 10:39 AM By electronically signing this report, I, the attending physician, [email or web address] I was present for the entire procedure(s) and agree with the finaledited report. Drafted by Yumi Jefferson on 06/22/2025 4:10 PM Final report signed by David Hicks MD on 06/24/2025 2:15 PM us David Hicks MD IMG IR PROCEDURES Final Resul t * POCT ACT (06/22/2025 10:50 AM EDT) Only the most recent of5 resultswithin the time period is included. ACT (Low Range) 285 65 - 400 seconds 07/15/2025 12:47 PM EDT [facility] Chin Strap Sewer ID Aubrey Cordero 07/15/2025 12:47 PM EDT [facility] [place] Device ID [id number] 07/15/2025 12:47 PM EDT [facility] Comment 07/15/2025 12:47 PM EDT [facility] Comment: ACT performed by staff [...] 10:50 AM EDT 07/15/2025 12:47 PM EDT us David Hicks MD LAB POINT OF CARE TE ST DOCKED DEVICE UNSOLICITED RESULTS Final Result [facility] [address] [facility] [address] [place] [address] * MO AN ELECTIVE ENDOTRACHEAL AIRWAY (06/22/2025 8:25 AM EDT) Narrative Nick Duke CRNA - 06/22/2025 8:25 AM EDT Nick Duke CRNA 06/22/2025 8:47 AM Airway Date/Time: 06/22/2025 8:25 AM Reason: elective Airway not difficult General Information and Staff Patient location during procedure: [place] LEASING MANAGER: Nick Duke CRNA Performed: JOSE Patient Condition [...] procedure well with no complications. Staffing Performed: JOSE LEASING MANAGER: Nick Duke CRNA us Jael Lazo MD ANESTHESIA ORDERABLES Final R esult * P2Y12 Platelet Receptor Blockade, Verify Now PRU (06/22/2025 7:39 AM EDT) P2Y12 PRU 200 194 - 418 PRU 06/22/2025 8:01 AM EDT [facility] Blood Venous blood specimen / Unknown Venipuncture / Unknown 06/22/2025 7:39 AM EDT 06/22/2025 7:46 AM EDT Narrative [facility] - 06/22/2025 8:01 AM EDT [...] to the clinician. Testing performed in the [facility] Core Laboratory for Special Coagulation. Yumi Jefferson MD LAB BLOOD ORDERABLES Final Res ult [facility] [address] [place] [address] * Type and Screen (06/22/2025 7:39 AM [...] ORDERABLE S Final Result Performing Organization Address [facility]/ZIP Co de Phone Number BLOOD BANK [address] * (ABNORMAL) Nicotine Cotinine Metabolite (06/02/2025 11:38 AM EDT) NICOTINE <5 <5 ng/mL 06/09/2025 3:22 PM EDT [facility] Cotinine 132(H) <5 ng/mL 06/09/2025 3:22 PM EDT [facility] Blood Venous blood specimen / Unknown Venipuncture / Unknown 06/02/2025 11:38 AM EDT 06/02/2025 11:38 AM EDT Narrative [facility] - 06/09/2025 3:22 PM EDT Testing performed by LC-MS/MS at the [facility] Special Chemistry/Toxicology Laboratory. This test was developed and its performance characteristics determined by [facility]. This assay has not been cleared by the FDA. The laboratory is regulated under CLIA as qualified to perform high-complexity testing. This test is used for clinical purposes. Romero Pizano MD LAB BLOOD ORDERABLES Anastacia l Result Performing Organization Address [facility] Co de Phone Number [facility] [address] [place] [address] * APTT (06/02/2025 11:38 AM EDT) aPTT 32 25 - 35 sec LAB COAGULATION METHOD 06/02/2025 1:12 PM EDT [facility] Blood Venous blood specimen / Unknown Venipuncture / Unknown 06/02/2025 11:38 AM EDT 06/02/2025 11:38 AM EDT David Hicks MD LAB BLOOD ORDERABLES Final Re sult [facility] [address] [place] [address] * Prothrombin Time/INR (06/02/2025 11:38 AM EDT) Prothrombin Time 14.3 12.0 - 14.3 sec LAB COAGULATION METHOD 06/02/2025 1:12 PM EDT [facility] INR 1.1 0.9 - 1.1 LAB COAGULATION METHOD 06/02/2025 1:12 PM EDT [facility] Blood Venous blood specimen / Unknown Venipuncture / Unknown 06/02/2025 11:38 AM EDT 06/02/2025 11:38 AM EDT Narrative [facility] - 06/02/2025 1:12 PM EDT OPTIMAL INR RANGES FOR PATIENT ON ORAL ANTICOAGULANT THERAPY Prevention of venous thromboembolism INR 2.0 to 3.0 In patients with heart disease: Atrial fibrillation INR 2.0 to 3.0 Valvular heart disease INR 2.0 to 3.0 Tissue heart valves INR 2.0 to 3.0 Mechanical prosthetic valves INR 2.5 to 3.5 Prevention of recurrent DC INR 2.5 to 3.5 us David Hicks MD LAB BLOOD ORDERABLES Final Re sult Performing Organization Address City/[facility]/ZIP Co de Phone Number [facility] [address] [place] [address] * CBC and Differential (06/02/2025 11:38 AM EDT) WBC Count 6.31 3.70 - 10.30 10*3/uL LAB HEMATOLOGY METHOD 06/02/2025 12:59 PM EDT [facility] RBC Count 4.52 3.90 - 5.20 10*6/uL LAB HEMATOLOGY METHOD 06/02/2025 12:59 PM EDT [facility] HGB 13.7 11.2 - 15.7 g/dL LAB HEMATOLOGY METHOD 06/02/2025 12:59 PM EDT [facility] HCT 42.7 34.0 - 45.0 % LAB HEMATOLOGY METHOD 06/02/2025 12:59 PM EDT [facility] Platelet Count 303 155 - 369 10*3/uL LAB HEMATOLOGY METHOD 06/02/2025 12:59 PM EDT [facility] MCV 95 79 - 98 fL LAB HEMATOLOGY METHOD 06/02/2025 12:59 PM EDT [facility] MCH 30.3 26.0 - 32.0 pg LAB HEMATOLOGY METHOD 06/02/2025 12:59 PM EDT [facility] MCHC 32.1 30.7 - 35.5 g/dL LAB HEMATOLOGY METHOD 06/02/2025 12:59 PM EDT [facility] RDW 13.6 11.5 - 14.5 % LAB HEMATOLOGY METHOD 06/02/2025 12:59 PM EDT [facility] MPV 9.0 8.8 - 12.5 fL LAB HEMATOLOGY METHOD 06/02/2025 12:59 PM EDT [facility] nRBC 0.0 <=0.0 per 100 WBCs LAB HEMATOLOGY METHOD 06/02/2025 12:59 PM EDT [facility] Differential Type Automated LAB HEMATOLOGY METHOD 06/02/2025 12:59 PM EDT [facility] Neutrophils % 58 % LAB HEMATOLOGY METHOD 06/02/2025 12:59 PM EDT [facility] Lymphocytes % 27 % LAB HEMATOLOGY METHOD 06/02/2025 12:59 PM EDT [facility] Monocytes % 8 % LAB HEMATOLOGY METHOD 06/02/2025 12:59 PM EDT [facility] Eosinophils % 6 % LAB HEMATOLOGY METHOD 06/02/2025 12:59 PM EDT [facility] Basophils % 1 % LAB HEMATOLOGY METHOD 06/02/2025 12:59 PM EDT [facility] Immature Granulocytes % 0 % LAB HEMATOLOGY METHOD 06/02/2025 12:59 PM EDT [facility] Neutrophils Absolute 3.63 1.60 - 6.10 10*3/uL LAB HEMATOLOGY METHOD 06/02/2025 12:59 PM EDT [facility] Lymphocytes Absolute 1.71 1.20 - 3.90 10*3/uL LAB HEMATOLOGY METHOD 06/02/2025 12:59 PM EDT [facility] Monocytes Absolute 0.53 0.30 - 0.90 10*3/uL LAB HEMATOLOGY METHOD 06/02/2025 12:59 PM EDT [facility] Eosinophils Absolute 0.37 0.00 - 0.50 10*3/uL LAB HEMATOLOGY METHOD 06/02/2025 12:59 PM EDT [facility] Basophils Absolute 0.06 0.00 - 0.10 10*3/uL LAB HEMATOLOGY METHOD 06/02/2025 12:59 PM EDT [facility] Immature Granulocytes Absolute 0.01 0.00 - 0.06 10*3/uL LAB HEMATOLOGY METHOD 06/02/2025 12:59 PM EDT [facility] Blood Venous blood specimen / Unknown Venipuncture / Unknown 06/02/2025 11:38 AM EDT 06/02/2025 11:38 AM EDT Narrative [facility] - 06/02/2025 12:59 PM EDT Therapeutic decision making should be based on absolute values, rather than percentages. David Hicks MD LAB BLOOD ORDERABLES Final Re sult Performing Organization Address City/[facility]/ZIP Co de Phone Number [facility] [address] [place] [address] * Prealbumin, Plasma (06/02/2025 11:38 AM EDT) Prealbumin, Plasma 22.2 20.0 - 41.0 mg/dL 06/02/2025 1:[address] [facility] [place] Blood Venous blood specimen / Unknown Venipuncture / Unknown 06/02/2025 11:38 AM EDT 06/02/2025 11:38 AM EDT us David Hicks MD LAB BLOOD ORDERABLES Final Re sult [facility] [address] [place] [address] * Hemoglobin A1c (06/02/2025 11:38 AM EDT) Hemoglobin A1c 5.3 <5.7 % 06/02/2025 3:29 PM EDT [facility] Blood Venous blood specimen / Unknown Venipuncture / Unknown 06/02/2025 11:38 AM EDT 06/02/2025 11:38 AM EDT Narrative [facility] - 06/02/2025 3:29 PM EDT HA1C Interpretive Data: Diagnosis of Diabetes: Diabetic > or = 6.5% Pre-diabetic 5.7 to 6.4% Non-diabetic < or = 5.6% Glycemic Targets for Type I and Type II Diabetics: Non- Adults <7.0% Adults <6.0% Children and Adolescents <7.5% Source: [place] [employer]. Standards of medical care in diabetes,2017. Diabetes Care.2017:40 (suppl 1):S1-S135. us Romero Pizano MD LAB BLOOD ORDERABLES Anastacia sneed Result [facility] [address] [place] [address] * (ABNORMAL) Comprehensive Metabolic Panel, Plasma (06/02/2025 11:38 AM EDT) Glucose, Plasma 100(H) 74 - 99 mg/dL 06/02/2025 1:09 PM EDT [facility] BUN, Plasma 13 8 - 23 mg/dL 06/02/2025 1:09 PM EDT [facility] Creatinine, Plasma 0.82 0.60 - 1.10 mg/dL 06/02/2025 1:09 PM EDT [facility] BUN/Creatinine Ratio 16 06/02/2025 1:09 PM EDT [facility] Sodium, Plasma 140 136 - 145 mmol/L 06/02/2025 1:09 PM EDT [facility] Potassium, Plasma 4.3 3.6 - 4.9 mmol/L 06/02/2025 1:09 PM EDT [facility] Chloride, Plasma 103 97 - 107 mmol/L 06/02/2025 1:09 PM EDT [facility] CO2, Plasma 24 22 - 29 mmol/L 06/02/2025 1:09 PM EDT [facility] Anion Gap 13 6 - 16 mmol/L 06/02/2025 1:09 PM EDT [facility] Total Calcium, Plasma 9.7 8.9 - 10.2 mg/dL 06/02/2025 1:09 PM EDT [facility] Total Protein 7.3 6.3 - 7.9 g/dL 06/02/2025 1:09 PM EDT [facility] Albumin, Plasma 4.1 3.5 - 5.2 g/dL 06/02/2025 1:09 PM EDT [facility] AST, Plasma 21 10 - 35 U/L 06/02/2025 1:09 PM EDT [facility] ALT, Plasma 12 10 - 35 U/L 06/02/2025 1:09 PM EDT [facility] Alkaline Phosphatase, Plasma 66 46 - 142 U/L 06/02/2025 1:09 PM EDT [facility] Total Bilirubin, Plasma 0.5 0.2 - 1.1 mg/dL 06/02/2025 1:09 PM EDT [facility] eGFRcr 75.6 mL/min/1.7 3m*2 06/02/2025 1:09 PM EDT [facility] Comment:Reported eGFRcr in m L/min/1.73m2 is based the CKD-EPI 2020 equation that does not use a race coefficient. Blood Venous blood specimen / Unknown Venipuncture / Unknown 06/02/2025 11:38 AM EDT 06/02/2025 11:38 AM EDT us David Hicks MD LAB BLOOD ORDERABLES Final Re sult Performing Organization Address City/[facility]/ZIP Co de Phone Number [facility] [address] [place] [address] * Hepatitis C Antibody - ED (05/01/2025 8:22 PM EDT) Hepatitis C Antibody Negative Negative 05/01/2025 9:16 PM EDT [facility] Blood Venous blood specimen / Unknown Venipuncture / Unknown 05/01/2025 8:22 PM EDT 05/01/2025 8:34 PM EDT us Rula Howe MD LAB BLOOD ORDERABLES Final Re sult [facility] [address] [address] * CT Chest wo IV Contrast (08/07/2022 [...] WO IV CONTRAST ordered by GUILLERMO PHILIP, [id number] CLINICAL INDICATION: Low back pain, no red [...] soft tissues. No acute abnormality Procedure Note uSpriya Slaughter MD - 08/07/2022 Exam/Procedure: CT LUMBAR SPINE WO IV CONTRAST, CT THORACIC SPINE WO IVCONTRAST, CT CHEST WO IV CONTRAST ordered by GUILLERMO PHILIP, [id number] CLINICAL INDICATION: Low back pain, no red [...] MD IMG CT PROCEDURES Final R esult from Last 3 Months or Most Recently Relevant to Health Maintenance Additional Health Concerns Active Problems Noted Date Diagnosed Date Autogenerated Problem 08/07/2025 [facility] Advance Directives * Full Code (Latest Code Status on File) Date Activated Date Inactivated Comments 06/22/2025 11:11 AM 06/23/2025 1:14 PM Question Answer Comments Patient has decision-making capacity? Yes * Full Code Date Activated Date Inactivated Comments 05/02/2025 2:00 AM 05/06/2025 6:55 PM Question Answer Comments I have reviewed the capacity from the link above and, if needed, have updated to appropriate status: Yes * Full Code Date Activated Date Inactivated Comments 08/15/2022 10:23 PM 08/26/2022 6:51 PM Question Answer Comments Patient has decision-making capacity? Yes Care Teams Senior Policy Analyst Relationship Specialty Start Date End Date Michael Baez MD [address] [place] [address] PCP - General 04/08/21 Acacia Scott APRN [address] [place] [id number] Nurse Practitioner Cardiology 03/27/22 Virgilio Nguyễn MD [address] [place] [address] [place] [address] Referring Physician 10/07/24
--- NOTE | 2025-08-17 13:45 | CA_ITS ---
APPROVED REPORT EXAM: Comprehensive 2D, Doppler, and color-flow Echocardiogram Unclaimed Property Officer: Judie Hale RT(R) Ht: 5 ft 4 in Wt: 159lbs BSA: 1.77 BP: 169/102 mmHg Indications: dyspnea, copd, hx CABG, HFrEF, EF 40% 09/2024 2D Dimensions LA Volume 25.10 mL LA Volume Index 14.10 mL/m2 (M/F) 16-34 M-Mode Dimensions RVDd 3.40 cm (0.9-2.6) LA Diam 3.35 cm (1.9-4.0) LVDd 5.30 cm (3.5-5.7) LVDs 4.35 cm (3.5-5.7) IVSd 0.95 cm (0.6-1.1) PWd 0.79 cm (0.6-1.1) EF (Teich) 36.90% FS 17.90% EDV (Teich) 135.30 mL ESV (Teich) 85.40 mL LV Diastology E Decel Time 280 (160-240 msec) E/A Ratio 1.15 Mitral Valve MV A Velocity 61.0 (40-130 cm/s) E/A Ratio 1.15 Tricuspid Valve TR P. Velocity 283.00 cm/s Left Ventricle The left ventricle is normal size. Left ventricular systolic function is mildly to moderately reduced. There is increased left ventricular wall thickness. There is moderate hypokinesis of the septal, anteroseptal, and inferoseptal LV enamorado. Grade 1 diastolic dysfunction is present. LVEF is 40%. Right Ventricle The right ventricle is mildly dilated. The right ventricular systolic function is normal. Atria The left atrium is moderately dilated. The right atrium is moderately dilated. There is no color Doppler evidence of interatrial shunt. Aortic Valve The aortic valve is mildly thickened. There is no hemodynamically significant aortic valvular stenosis. Mild aortic regurgitation is present. Mitral Valve The mitral valve is normal in structure. No evidence of mitral valve stenosis. Mild mitral regurgitation is present. Tricuspid Valve The tricuspid valve leaflets are thin and pliable. Mild tricuspid regurgitation. RVSP is 30-35 mmHg Pulmonic Valve The pulmonary valve is grossly normal in structure. Trace pulmonic valve regurgitation is present. Great Vessels The aortic root is normal in size. The ascending aorta is mildly dilated, measuring 3.9 cm in diameter. IVC is normal in size and collapses >50% with inspiration. Pericardium There is no pericardial effusion. Other Information Study Quality: Fair Conclusion Mild to moderate reduction in LV systolic function (LVEF 40%). Moderate hypokinesis of the septal, anteroseptal, and inferoseptal LV enamorado. Mild RV dilation with normal RV function. Biatrial dilation. Mild AI, mild MR, mild TR. The ascending aorta is mildly dilated, measuring 3.9 cm in diameter. Compared to prior study from 10/13/2024, the LV systolic function is overall unchanged. Electronically signed by : Mary Christiansen MD 08/17/2025 14:20:48
== END 2025-08-17 23:59 | disposition home or self-care (01) ==
LOC: RT 13:09
PROVIDERS: PCP Internal Medicine Adolescent Medicine; Visit Provider Nurse Practitioner
DX: I08.3 Combined rheumatic disorders of mitral, aortic and tricuspid valves (principal); I71.21 Aneurysm of the ascending aorta, without rupture; I11.0 Hypertensive heart disease with heart failure; I50.20 Unspecified systolic (congestive) heart failure; Z95.1 Presence of aortocoronary bypass graft; I25.10 Atherosclerotic heart disease of native coronary artery without angina pectoris; R94.31 Abnormal electrocardiogram [ECG] [EKG]; E78.5 Hyperlipidemia, unspecified; J44.9 Chronic obstructive pulmonary disease, unspecified; R93.1 Abnormal findings on diagnostic imaging of heart and coronary circulation
CPT/HCPCS: 93306

== ENCOUNTER 2025-08-20 15:02 | Outpatient (CLI) | payer MEDICARE, SELFPAY ==
--- OUTSIDE RECORDS SUMMARY | 2025-08-20 15:25 | XMS_ITS | Clinical Summary ---
Author Organization [facility] [place] Address [address] [phone] Phone Care Team Providers Care Spout Liner Helper Name Role Phone Unavailable Primary Care Provider [...] complete [place] [address] [employer] [facility] [place] [address] MEDICARE [place] PART A AND B
[2025-08-20 15:29] LABS: Hematocrit 41.9 % (37.0-47.0); Hemoglobin 13.6 g/dL (12.2-16.2); Immature Granulocytes % 0.4 %; Mean Corpuscular HGB Conc 32.5 g/dL (31.8-35.4); Mean Corpuscular Hemoglobin 29.8 pg (27.0-31.2); Mean Corpuscular Volume 91.9 fl (81-99); Nucleated Red Blood Cells % 0 %; Platelet Count 427 K/mm3 (142-424); Red Blood Count 4.56 M/mm3 (4.20-5.40); Red Cell Distribution Width-SD 45.8 fL; White Blood Count 10.0 K/mm3 (4.8-10.8)
--- NOTE | 2025-08-20 15:31 | MM_ITS ---
PROCEDURE INFORMATION: Exam: MG Bilateral Screening 3D Mammography Exam date and time: 08/20/2025 3:35 PM Age: 74 years old Clinical indication: Screening examination TECHNIQUE: Imaging protocol: Bilateral Screening tomosynthesis and 2D mammography including computer-aided detection (CAD) when performed. COMPARISON: 1. MG MM DIG SCREENING MAMM BI W/CAD 07/22/2024 12:53 PM 2. MG MM DIG SCREENING MAMM BI W/CAD 12/25/2022 8:21 AM FINDINGS: MAMMOGRAPHY: Breast composition: There are scattered areas of fibroglandular density. Mass: No suspicious masses. Architectural distortion: None. Calcifications: No suspicious calcifications. Asymmetric density: None. Skin thickening: None. Axillary adenopathy: None. IMPRESSION: No mammographic evidence of malignancy. Annual screening is recommended unless otherwise clinically indicated. ASSESSMENT: BI-RADS Category 1: Negative.
[2025-08-20 15:46] LABS: Activated Partial Thrombo Time 25.6 seconds (22.8-30.6); INR 1.05 (0.9-1.1); Prothrombin Time 11.6 seconds (10.1-12.5)
[2025-08-20 16:19] LABS: Albumin Level 3.8 g/dl (3.5-5.0); Chloride 104 mmol/L (98-107); Potassium 3.3 mmoL/L (3.5-5.1); Sodium 140 mmol/L (136-145)
[2025-08-20 16:22] LABS: Alanine Aminotransferase 15 U/L (12-78); Albumin/Globulin Ratio 1.3 (1.1-1.8); Alkaline Phosphatase 72 U/L (38-126); Anion Gap 8.3 mEq/L (5-15); Aspartate Amino Transferase 22 U/L (14-36); Bilirubin,Total 0.6 mg/dl (0.2-1.3); Blood Urea Nitrogen 11 mg/dl (7-17); Carbon Dioxide 31 mmol/L (22.0-30.0); Creatinine,Serum 0.80 mg/dl (0.52-1.04); Estimated Glomerular Filt Rate 70 ml/min (>60); GFR (African American) 85 ML/MIN (>60); Globulin 3.0 g/dL (1.3-3.2); Total Protein,Serum 6.8 g/dl (6.3-8.2)
[2025-08-20 16:23] LABS: Calcium 9.4 mg/dl (8.4-10.2); Glucose 86 mg/dl (74-100)
[2025-08-21 13:26] LABS: Prealbumin 28 mg/dL (9-32)
== END 2025-08-20 23:59 | disposition home or self-care (01) ==
LOC: RAD 15:03
PROVIDERS: PCP Internal Medicine Adolescent Medicine; Visit Provider Nurse Practitioner Family
DX: Z12.31 Encounter for screening mammogram for malignant neoplasm of breast (principal); R92.323 Mammographic fibroglandular density, bilateral breasts; Z01.812 Encounter for preprocedural laboratory examination; I67.1 Cerebral aneurysm, nonruptured
CPT/HCPCS: 36415; 77063; 77067; 80053; 84134; 85025; 85610; 85730

== ENCOUNTER 2025-10-02 12:52 | Outpatient (CLI) | payer MEDICARE, SELFPAY ==
--- OUTSIDE RECORDS SUMMARY | 2025-08-07 12:30 | XMS_ITS | Encounter Summary ---
Author Organization [facility] Address [address] [place] [address] Care Team Providers Care Lease Picker Name Role Phone Michael Baez MD Primary Care Provider [phone] Acacia Scott APRN Unavailable [phone] Virgilio Nguyễn MD Unavailable [phone] Encounter Details Date Type Department Care Team (Late st Contact Info) Description 08/07/2025 1:30 PM EDT [facility] Visit [facility] [address] [place] [address] Anders Sotelo MD [address] [place] [address] Pre-op exam (Primary Dx); Cerebral aneurysm Social History Tobacco Use Types Packs/Day Years Used Date Smoking Tobacco: Former Cigarettes 2 63.1 0 11/26/1959 - 12/2022 Passive Smoke Exposure: Current Smokeless Tobacco: Never Tobacco Cessation:Counseling Given: Not [...] any time in the past 12 m [facility], were you homeless or living in a nursing home (including now)? 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-NUCLEAR DESIGN ENGINEER) to steady your nerves or to [...] Sign Reading Time Taken Comments Blood Pressure 123/75 08/07/2025 2:14 PM EDT Pulse 58 08/07/2025 2:14 PM EDT Temperature - - Respiratory Rate - - Oxygen Saturation 96% 08/07/2025 2:14 PM EDT Inhaled Oxygen Concentration - - Weight 72.3 kg (159 lb 6.3 oz) 08/07/2025 2:14 P M EDT Height 162.6 cm (5' 4 ) 08/07/2025 2:14 PM EDT Body Mass Index 27.36 08/07/2025 2:14 PM EDT documented in this encounter Miscellaneous Notes * Addendum Note - Rafia Smith RN - 08/07/2025 1:30 PM EDTAddended by: RAFIA SMITH on: 08/07/2025 04:39 PM Modules accepted: Orders * Progress Notes - Prachi Hodgson PA - 08/07/2025 1:30 PM EDT Dear Michael Baez MD, We had the pleasure of seeing your patient in our neurosurgical clinic today. HISTORY OF PRESENT ILLNESS: Supriya Andres is a 74 y.o. year old female with right anterior cerebral artery aneurysm unruptured undergoing stage I Y stent assisted coiling June [address] Gallego. She remains on asa plavix and eliquis for afib. In severe back pain today with elevations in BPs, cardiology recently added a BP medicine. Past medical history, surgical history, family history, social history and review of systems as well as medications were all reviewed and there are no changes. Last Recorded Vitals Visit Vitals BP 123/75 (BP Location: Right arm, Patient Position: Sitting, BP Cuff Size: Adult) Pulse 58 Ht 1.626 m (5' 4 ) Wt 72.3 kg (159 lb 6.3 oz) SpO2 96% BMI 27.36 kg/m?? OB Status Hysterectomy Smoking Status Former BSA 1.81 m?? PHYSICAL EXAM: -Constitutional: Well developed, well nourished. No acute distress. Alert and oriented to person, place, and time. -Head, Eyes, Nose, Throat: Normocephalic, atraumatic. Pupils are equally round and reactive to light. Extra-ocular movements are intact without nystagmus. Oral mucosa is pink and moist. -Musculoskeletal: Moves all 4 extremities equally. Gait is steady and independent without spasticity. -Extremities: There is no clubbing, cyanosis, or edema. There is no pronator drift. -Neurologic: Alert and Oriented to person, place, and time. Speech is fluent. Patient follows commands and interacts appropriately. ASSESSMENT AND PLAN: Supriya Andres is a 74 y.o. year old female with: Right JONAH aneurysm s/p stage I Y stent assisted coiling June [address] Gallego She is due for Stage II coiling Decision for MAJOR procedure: Right A2 JONAH aneurysm Stage II stent assisted coiling on 09/09/2025. Ordering labs: CMP CBC PT PTT EKG prealbumin to be done at [facility] next week, faxed electronically through [employer] after midnight. Remain on asa and plavix Stop Eliquis 3 days prior (afib, CAD) HTN, chronic, stable BP Readings from Last 3 Encounters: 08/07/25 123/75 06/23/25 111/68 06/02/25 128/74 Risk Discussion and Counseling: We discussed the risks and benefits of cerebral catheter angiography with intervention including but not limited to access site hematoma, infection, arterial injury, stroke, or brain hemorrhage, as well as kidney burden with contrast and radiation exposure. Patient specific comorbidities that pose f urther risk of darcie-procedural complication include: asthma, afib, CHF, COPD, CAD, HTN, CORNELIA, RLS. PAIGE completed. Consent was signed as benefits outweigh the risk. Thank you. If there are any questions or concerns please feel free to contact us: [facility] Department of Neurosurgery [address] [place] [address] [place] [address] ; Cosigned by Anders Sotelo MD at 08/11/2025 9:58 AM EDT Associated attestation - Anders Sotelo MD - 08/11/2025 9:58 AM EDT I saw and examined the patient with the [facility]SCAR. I agree with the assessment and plan. A substantive portion of care was provided by the [facility]SC[facility]. documented in this encounter Plan of Treatment Upcoming Encounters Date Type Department Care Team (Late st Contact Info) Description 10/20/2025 1:50 PM EST Appointment [facility] [address] [place] [address] 10/20/2025 4:00 PM EST Office Visit [place] [facility] [address] [place] [id number] David Gallego MD [address] [place] [id number] documented as of this encounter Visit Diagnoses Diagnosis Pre-op exam- Primary Cerebral aneurysm Cerebral aneurysm, nonruptured documented in this encounter Additional Health Concerns Assessment Noted Time A fall risk assessment has been complete d for the patient 08/07/2025 2:23 PM EDT A Body Mass Index follow-up plan has been documented for the patient 08/07/2025 4:31 PM EDT documented as of this encounter Care Teams Lease Picker Relationship Specialty Start Date End Date Michael Baez MD [address] [place] [address] PCP - General 04/08/21 Acacia Scott APRN [address] [place] [id number] Nurse Practitioner Cardiology 03/27/22 Virgilio Nguyễn MD [address] [place] [address] Referring Physician 10/07/24 documented as of this encounter
--- OUTSIDE RECORDS SUMMARY | 2025-08-31 12:00 | XMS_ITS | Encounter Summary ---
Author Organization [facility] Address [address] [place] [address] Care Team Providers Care Folder Hand Name Role Phone Michael Baez MD Primary Care Provider [phone] Acacia Scott PARADI TENDER Unavailable [phone] Virgilio Nguyễn MD Unavailable [phone] Encounter Details Date Type Department Care Team (Late st Contact Info) Description 08/31/2025 1:00 PM EDT Pre-Admission Testing [facility] Pre-op Clinic [address], [address] [place] [phone] Anesthesia Record Procedure Summary Procedure Name Responsible [...] 1553 09/09/25 1330 by Jill Barnes CRNA, [facility] 09/09/25 1553 by Jill Barnes CRNA, DNP Peripheral IV Placement Date: 08/26 04/19; Placement Time: 1332; Catheter Size: 18 G; Orientation: Right; Location: Saphenous; Site Prep: Alcohol; Local Anesth: None; Technique: Anatomical landmarks; Inserted by: aCmeron GARCIA; Insertion Attempts: 1; Removal Date: 09/10/25; Removal Time: 1417 09/09/25 1332 by Jill Barnes CRNA, ERIBERTO 09/10/25 1417 by Vane Jalloh RN Arterial [...] any time in the past 12 m [facility], were you homeless or living in a [...] drink first t pippa in the 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 0 05/03/2025 CAGE Questionnaire Score 0 025 Utilities Answer Date Recorded In the past 12 months has th [employer], gas, oil, or water [employer] threatened to shut off services in your [...] PTT EKG prealbumin to be done at [facility] next week, faxed electronically through [employer] after midnight. Remain on asa and plavix [...] plavix and aspirin), CHF (HFpEF), hyperlipidemia, past [place], pulmonary hypertension and valvular heart disease (s/p [...] Medical History: Diagnosis Date Abnormal ECG Aneurysm ([facility]) 05/10/2025 Arthritis 2010 Asthma Atrial fibrillation ([facility]) CHF (congestive heart failure) ([facility]) 2002 Chronic bronchitis ([facility]) 2010 COPD (chronic obstructive pulmonary disease) ([facility]) Coronary artery disease 2001 Gastroesophageal reflux disease without esophagitis Headache 04/26/2025 Hypercholesteremia Hypertension Irregular heart beat 2002 Low back pain 2019 [place] (myocardial infarction) ([facility]) Obesity 2020 Obstructive sleep apnea (adult) (pediatric) CORNELIA on CPAP Old myocardial infarction History of myocardial infarction Pneumonia 2011 Pulmonary arterial hypertension [place] 2017 Radiculopathy 2019 Restless leg syndrome Vertebral compression fracture [place] 05/26/2022 [2] Family History Problem Relation Name [...] REPLACEMENT BILIARY DRAINAGE N/A Atrial Cardioversion from [facility] CARDIAC CATHETERIZATION CARDIOTHORACIC PROCEDURE 2002 CAROTID STENT CATH STENT PLACEMENT/ CATH PLACEMENT OF STENT N/A Cath Stent Placement from [facility] COLON SURGERY N/A Colon Surgery from [facility] CORONARY ANGIOPLASTY CORONARY ARTERY BYPASS GRAFT N/A CABG from [facility] CORONARY STENT PLACEMENT EYE SURGERY April 2025 HYSTERECTOMY N/A Hysterectomy from [facility] KNEE ARTHROPLASTY 2012 ORTHOPEDIC SURGERY 2010 OTHER SURGICAL HISTORY 1982? Hysterectomy TOTAL KNEE ARTHROPLASTY Bilateral Knee Replacement from [facility] [5] Allergies Allergen Reactions Diphenhydramine Anaphylaxis, Hives, [...] 5 MG tablet Take morning of surgery Oxgywlv-Aiazwtztwia-Kjdeugiytf (Breztri Aerosphere) 160-9-4.8 MCG/ACT aerosol Take morning [...] card, photo ID, along with power of commonwealth attorney, guardianship or advanced directives if applicable Do [...] EST Appointment [facility] [address] [place] [address] 10/20/2025 4:00 PM EST Office Visit [place] [facility] [address], [address] [place] [address] David Gallego MD [address] [place] [phone] documented as of this encounter Visit Diagnoses Not on filedocumented in this encounter Additional Health Concerns Assessment Noted Time A fall risk assessment has been complete d for the patient 08/07/2025 2:23 PM EDT A Body Mass Index follow-up plan has been documented for the patient 08/07/2025 4:31 PM EDT documented as of this encounter Care Teams Folder Hand Relationship Specialty Start Date End Date Michael Baez MD [address] [place] [address] PCP - General 04/08/21 Acacia Scott APRN [address] [place] [phone] Nurse Practitioner Cardiology 03/27/22 Virgilio Nguyễn MD [address] [place] [address] Referring Physician 10/07/24 documented as of this encounter
--- OUTSIDE RECORDS SUMMARY | 2025-09-09 12:15 | XMS_ITS | Encounter Summary ---
Author Organization Healthcare Address [address] [id number] Care Team Providers Care Position Description Manager Name Role Phone Michael Baez MD Primary Care Provider [phone] Acacia Scott SUPERVISOR [employer] Unavailable [phone] Virgilio Nguyễn MD Unavailable [phone] Reason for Visit * Auth/Cert (Routine) Specialty Diagnoses / Procedures Referred By Contac t Referred To Contact Diagnoses Cerebral aneurysm Anders Sotelo MD [address] [facility] [address] [place] [address] Phone: tel: fax: [facility] [address] [place] [address] Phone: tel: Referral ID Status Reason Start Date Expiration Date Visits Re quested Visits Authorized [id number] 1 1 Encounter Details Date Type Department Care Team (Late st Contact Info) Description 09/09/2025 1:15 PM EDT Anesthesia Event [facility] Inter[facility] Radiology [address] [place] [address] Jill Barnes CRNA, DNP [address] [place] [address] Luciano Pratt MD [address] [place] [address] Anesthesia Record Procedure Summary Procedure [...] acknowledgement of understanding. 1606 An Stop Meds Name Total fentaNYL (Sublimaze) injection 50 mcg/mL 50 mcg propofol (Diprivan) injection 10 mg/mL 1 00 mg lidocaine PF (Xylocaine-MPF) 2% 60 mg dexamethasone (Decadron) injection 4 mg/ mL 4 mg ePHEDrine injection prefilled syringe 5 mg/mL 10 mg ondansetron (Zofran) injection 2 mg/mL 4 mg sugammadex (Bridion) injection 100 mg/mL 200 mg rocuronium (ZeMuron) injection 10 mg/mL 80 mg clindamycin (Cleocin) 900 mg in 50 mL (p remix) 900 mg heparin (porcine) 5000 UNIT/ML 8,000 Uni ts protamine injection 50 mg sodium chloride 0.9 % infusion 0 mL * Agents No agents on file. * Blood No blood administrations on file. Lines, Drains, and Airways Type Details Placement Removal Wound 05/05/25; 1431; Surg ical; Catheter Ent; Arm; Anterior, Distal, Lower, Right; arterial sheath entry site 05/05/25 1431 by Aaron De La Cruz RN Wound 06/22/25; 1114; Yes; Surgical; Catheter Ent; Anterior, Right; sheath site 06/22/25 1114 by Riddhi Kenndey RN ETT Placement Date: 08/26 04/19; Placement [...] 1553 09/09/25 1330 by Jill Barnes CRNA, DNP 09/09/25 1553 by Jill Barnes CRNA, DNP [...] 0830 09/09/25 1335 by Jill Barnes CRNA, DNP 09/10/25 0830 by Vane Jalloh RN Arterial [...] any time in the past 12 m [facility], were you homeless or living in a [facility] (including now)? 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EL[employer]) to 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 0 05/03/2025 CAGE Questionnaire Score 0 025 Utilities Answer Date Recorded In the past 12 months has th e SWYF, gas, oil, or water [employer] Power threatened to shut off services in your [...] as of this encounter Miscellaneous Notes * Addendum Note - Luciano Pratt MD - 09/24/2025 6:40 AM EDT Addendum created 09/24/25 0640 by Luciano Pratt MD Clinical Note Signed, Intraprocedure Blocks edited, SmartForm saved * Addendum Note - Luciano Pratt MD - 09/23/2025 7:08 AM EDT Addendum created 09/23/25 0708 by Luciano Pratt MD Clinical Note Signed, Intraprocedure Blocks edited * Anesthesia Postprocedure Evaluation - Jill Barnes CRNA, DNP - 09/09/2025 4:06 PM EDT Patient: Supriya Andres Anesthesia Type: general Vitals Value Taken Time BP 106/71 09/09/25 16:06 Temp 36.3 09/09/25 16:06 Pulse 67 09/09/25 16:06 Resp 12 09/09/25 16:06 SpO2 95 09/09/25 16:06 Anesthesia Post Evaluation Patient location during evaluation: PACU Patient participation: complete - patient participated Level of consciousness: awake Pain management: adequate (pain score 0-3) Airway patency: natural airway Cardiovascular status: acceptable, hemodynamically stable and blood pressure returned to baseline Respiratory status: acceptable, blow-by oxygen, unassisted, spontaneous ventilation and nasal cannula Hydration status: acceptable Nausea/Vomiting: No No notable events documented. * Anesthesia Procedure Notes - Jill Barnes CRNA, DNP - 09/09/2025 1:42 PM EDT Associated Order(s): Airway Airway Date/Time: 09/09/2025 1:30 PM Reason: elective Airway not difficult General Information and Staff Patient location during procedure: OR QC ANALYST: Jill Barnes CRNA, DNP Performed: QC ANALYST Patient Condition Indications for airway management: anesthesia Patient position: sniffing Final Airway Details Final airway type: endotracheal airway Successful airway: ETT Cuffed: yes Successful intubation technique: direct laryngoscopy Adjuncts used in placement: intubating stylet Endotracheal tube insertion site: oral Blade: Fabio Blade size: #3 ETT size (mm): 7.0 Cormack-Lehane Classification: grade I - full view of glottis Placement verified by: chest auscultation and capnometry Measured from: lips ETT to lips (cm): 20 Additional Comments Atraumatic. No change to dentition. * Anesthesia Procedure Notes - Luciano Pratt MD - 09/09/2025 1:41 PM EDT Associated Order(s): Arterial Line Arterial Line: Date/Time: 09/09/2025 1:35 PM An arterial line was placed. Procedure performed using surface landmarks in the pre-op for the following indication(s): continuous blood pressure monitoring. A 20 gauge (size), 1 and 3/4 inch (length), Arrow (type) catheter was placed into the Left radial artery and secured by tape. Seldinger technique used Events: patient tolerated procedure well with no complications. Additional notes: I HAVE NOW SIGNED THIS NOTE 3 TIMES Staffing Performed: Anesthesiologist Anesthesiologist: Luciano Pratt MD * Anesthesia Preprocedure Evaluation - Luciano Pratt MD - 09/09/2025 9:04 AM EDT No anesthesia staff entered. Patient: Supriya Andres is a 74 y.o. female with body mass index is 28.84 kg/m??. who presents with No Principal Problem: There is no principal problem currently on the Problem List. Please update the Problem List and refresh., now for Procedure Information Date/Time: 09/09/25 1015 Scheduled providers: Sean Barnes Procedure: IR ARTERIAL EMBOLIZATION Location: [facility] Relevant Problems Cardio (+) Cerebral aneurysm (+) Coronary artery disease involving nikolai coronary artery of nikolai heart without angina pectoris (+) Hypertension (+) PAF (paroxysmal atrial fibrillation) GI (+) Gastroesophageal reflux disease without esophagitis Pulmonary (+) COPD (chronic obstructive pulmonary disease) ALLERGIES Allergies[1] NPO STATUS Date of Last Liquid: 09/08/25 Time of Last Liquid: 1999 Date of Last Solid: 09/08/25 Time of Last Solid: 1999 Time of Last Void: 0600 Past Medical History[2] AIRWAY HISTORY Airway Detailed Review Displaying the 20 most recent records Date Difficult Airway Blade Size ETT Size C-L Class Final Type Intubation Method 06/22/25 No 2 7.0 grade I - full view of glottis endotracheal airway direct laryngoscopy MEDICATIONS Outpatient Current Outpatient Medications Medication Instructions acetaminophen (TYLENOL 8 HOUR) 650 mg, Every 8 hours PRN albuterol 108 (90 Base) MCG/ACT inhaler 2 puffs, Every 4 hours PRN aspirin 81 mg, Oral, Daily azelastine (Astelin) 0.1 % nasal spray bisoprolol (ZEBETA) 5 mg, Daily Qicnjvf-Eyszlftxrxe-Ewixcvlxjr (Breztri Aerosphere) 160-9-4.8 MCG/ACT aerosol 2 puffs, 2 times daily budesonide (PULMICORT) 0.5 mg, 2 times daily cetirizine (ZYRTEC) 10 mg clopidogrel (PLAVIX) 75 mg, Daily Eliquis 5 mg, Oral, 2 times daily empagliflozin (JARDIANCE) 10 mg, Oral, Daily Entresto 24-26 MG tablet escitalopram (LEXAPRO) 20 mg, Daily Evolocumab (REPATHA) 140 mg, Subcutaneous, Every 14 days famotidine (PEPCID) 20 mg, 2 times daily PRN Fasenra Pen 30 mg, Every 56 days fluticasone (Flonase) 50 MCG/ACT nasal spray 1 spray, Daily gabapentin (NEURONTIN) 300 mg, 3 times daily Gemtesa 75 MG tablet Take 75 mg by mouth daily. ipratropium-albuterol (Combivent Respimat) 20-100 MCG/ACT inhaler 1 puff, 4 times daily PRN montelukast (SINGULAIR) 10 mg, Nightly pantoprazole (PROTONIX) 40 mg, Daily before breakfast temazepam (RESTORIL) 15 mg, Nightly traZODone (DESYREL) 50 mg, Nightly Scheduled Current Scheduled Medications[3] PRNs Current PRN Medications[4] SURGICAL HX: Surgical History[5] SOCIAL HX: Social History[6] OBJECTIVE DATA LABS Lab Results Component Value Date WBC 7.60 06/23/2025 HGB 11.0 (L) 06/23/2025 HCT 33.7 (L) 06/23/2025 MCV 96 06/23/2025 PLT 273 06/23/2025 Lab Results Component Value Date CALCIUM 8.2 (L) 06/23/2025 BUN 12 06/23/2025 CREATININE 0.40 (L) 06/23/2025 BCR 30 06/23/2025 NA 141 06/23/2025 K 3.8 06/23/2025 CL 110 (H) 06/23/2025 CO2 22 06/23/2025 CA 9.1 10/30/2019 Type and Screen No results found for: ABO Lab Results Component Value Date HGBA1C 5.3 06/02/2025 Lab Results Component Value Date GLUCOSE 124 (H) 06/23/2025 ABG No results found for: PHART , OMB7FYI , PO2ART , SO2ART , BEART , GPQ6QUZ , HCTART , SODIUMART , POTASSIUMART , POCTCL , POCGLU , IONCALART , LACTATE Lab Results Component Value Date HCTSYR 39.3 05/02/2025 KSYR 3.1 (L) 05/02/2025 CLSYR 115 (H) 05/02/2025 GLUSYR 109 (H) 05/02/2025 CAION 4.4 (L) 06/23/2025 ECHO Echo, Adult Transthoracic Complete Result Date: 05/05/2025 Left Ventricle: The left ventricle is mildly dilated. There is normal left ventricular myocardial thickness and mass. No left ventricular mass or thrombus is seen. The left ventricular systolic function is reduced. The LVEF as measured by biplane volume is 46%. The diastolic function is abnormal. There is grade I (mild) diastolic dysfunction. The anteroseptal and inferoseptal enamorado are akinetic. Right Ventricle: The right ventricle is normal in size. The right ventricular systolic function is normal. Pericardium: No pericardial effusion. Compared to the most recently available prior study, and allowing for differences in image quality and technique, left ventricular systolic function is slightly worse. PFTs No results found for: RAM1YNJ , RUT0QLDJ , WZY1AVY , FVCPRED BP Readings from Last 5 Encounters: 09/09/25 117/81 08/07/25 123/75 06/23/25 111/68 06/02/25 128/74 05/06/25 92/56 Physical Exam Airway Mallampati: II Mouth opening: normal TM distance: >3 FB Neck ROM: full Cardiovascular Rhythm: regular Rate: normal The radial pulses are 1+ bilaterally. Dental (+) upper dentures Pulmonary Breath sounds clear to auscultation (+) decreased breath sounds Neurological Oriented: normal to time, normal to place and normal to person and oriented to person, place and time Skin - normal exam Skin: warm Turgor: normal Musculoskeletal - normal exam Extremities -normal exam Handedness: right-handed Anesthesia Plan ASA 3 Plan was reviewed with: QC ANALYST Anesthesia technique(s) discussed with the patient/family: general Anesthesia plan agreed upon was: general Comment: A-LINE, 2ND IV Anesthetic plan and risks discussed with patient. ROS Anesthesia: history of previous anesthesia, history of anesthetic complications and obstructive sleep apnea. Anesthesia ROS additional comments: PT STOPPED ELIQUIS PT CONTINUED PLAVIX Cardiovascular: Patient's ECG reviewed. atrial fibrillation, CAD, CHF, hyperlipidemia and PVD. hypertension: is well controlled. Exercise tolerance is 1 flight of stairs. Cardio additional comments: HX OF CABG 05/20: ECHO: ?? Left Ventricle: The left ventricle is mildly dilated. There is normal left ventricular myocardial thickness and mass. No left ventricular mass or thrombus is seen. The left ventricularsystolic function is reduced. The LVEF as measured by biplane volume is 46%. The diastolic functionis abnormal. There is grade I (mild) diastolic dysfunction. The anteroseptal and inferoseptal enamorado are akinetic. ?? Right Ventricle: The right ventricle is normal in size. The right ventricular systolic function is normal. ?? Pericardium: No pericardial effusion. ?? Compared to the most recently available prior study, and allowing for differences in image quality and technique, left ventricular systolic function is slightly worse. NO HEMODYNAMICALLY SIGNIFICANT VALVULAR DISEASE. Respiratory: asthma: well controlled.COPD: breathing at baseline. Respiratory ROS additional comments: QUIT SMOKING 2007 HEENT: missing teeth. Neurological: headaches. Neuro additional comments: CEREBRAL ANEURYSM Musculoskeletal: arthritis. Integumentary: Negative skin ROS. Gastrointestinal: GERD: well controlled. Genitourinary: Negative ROS. Hematological/Lymphatic: anemia. history of chemotherapy Endocrine/Metabolic: Negative endocrine ROS. [1] Allergies Allergen Reactions Diphenhydramine Anaphylaxis, Hives, Itching, [...] me crazy and antsy , paradoxical reaction [2] Past Medical History: Diagnosis Date Abnormal ECG Aneurysm ([facility]) 05/10/2025 Arthritis 2011 Asthma Atrial fibrillation ([facility]) CHF (congestive heart failure) 2003 Chronic bronchitis ([facility]) 2010 COPD (chronic obstructive pulmonary disease) Coronary artery disease 2001 Gastroesophageal reflux disease without esophagitis Headache 04/26/2025 Hypercholesteremia Hypertension Irregular heart beat 2002 Low back pain 2019 [place] (myocardial infarction) Obesity 2019 Obstructive sleep apnea (adult) (pediatric) [place] on CPAP Old myocardial infarction History of myocardial infarction Pneumonia 2011 Pulmonary arterial hypertension 2017 Radiculopathy 2019 Restless leg syndrome Vertebral compression fracture 05/26/2022 [3] lidocaine, 1 Application, Topical, Once Insert peripheral IV, , , Once AND Saline lock IV, , , Once AND sodium chloride, 10 mL, Intravenous, q12h AND sodium chloride, 10 mL, Intravenous, PRN [4] PRN medications: nitroglycerin, Insert peripheral IV AND Saline lock IV AND sodium chloride AND sodium chloride [5] Past Surgical History: Procedure Laterality Date ABLATION OF DYSRHYTHMIC FOCUS AORTIC VALVE REPLACEMENT BILIARY DRAINAGE N/A Atrial Cardioversion from [facility] CARDIAC CATHETERIZATION CARDIOTHORACIC PROCEDURE 2002 CAROTID STENT CATH STENT PLACEMENT/ CATH PLACEMENT OF STENT N/A Cath Stent Placement from [facility] COLON SURGERY N/A Colon Surgery from [facility] CORONARY ANGIOPLASTY CORONARY ARTERY BYPASS GRAFT N/A CABG from [facility] CORONARY STENT PLACEMENT EYE SURGERY April 2025 HYSTERECTOMY N/A Hysterectomy from [facility] KNEE ARTHROPLASTY 2012 ORTHOPEDIC SURGERY 2010 OTHER SURGICAL HISTORY 1982? Hysterectomy TOTAL KNEE ARTHROPLASTY Bilateral Knee Replacement from [facility] [6] Social History Tobacco Use Smoking status: Former Current packs/day: 0.00 Average packs/day: 2.0 packs/day for 63.1 years (126.2 ttl pk-yrs) Types: Cigarettes Start date: 11/26/1959 Quit date: 12/2022 Years since quittin.7 Passive exposure: Current Smokeless tobacco: Never Vaping Use Vaping status: Never Used Substance Use Topics Alcohol use: Never Drug use: Never documented in this encounter Plan of Treatment Upcoming Encounters Date Type Department Care Team (Late st Contact Info) Description 10/20/2025 1:50 PM EST Appointment [facility] [address] [place] [address] 10/20/2025 4:00 PM EST Office [facility] [address] [place] [address] David Gallego MD [address] [place] [address] documented as of this encounter Procedures Procedure Name Priority Date/Time Associated Diagnosis Comments ANESTHESIA ARTERIAL LINE PLACEMENT Routine 09/09/2025 1:35 PM EDT PB ANESTHESIA PLACEHOLDER Routine 09/09/2025 1:30 PM EDT DE AN ELECTIVE ENDOTRACHEAL AIRWAY Routine 09/09/2025 1:30 PM EDT documented in this encounter Results * PB ANESTHESIA NON-TIMED PROCEDURE PLACEHOLDER (09/09/2025 1:35 PM EDT) Narrative Luciano Pratt MD - 09/09/2025 1:35 PM EDT Luciano Pratt MD 09/24/2025 6:40 AM Arterial Line: Date/Time: 09/09/2025 1:35 PM An arterial line was placed. Procedure performed using surface landmarks in the pre-op for the following indication(s): continuous blood pressure monitoring. A 20 gauge (size), 1 and 3/4 inch (length), Arrow (type) catheter was placed into the Left radial artery and secured by tape. Seldinger technique used Events: patient tolerated procedure well with no complications. Additional notes: I HAVE NOW SIGNED THIS NOTE 3 TIMES Staffing Performed: Anesthesiologist Anesthesiologist: Luciano Pratt MD Luciano Pratt MD ANESTHESIA ORDERABLES Edited Re sult - Final * DE AN ELECTIVE ENDOTRACHEAL AIRWAY, PB ANESTHESIA PLACEHOLDER (09/09/2025 1:30 PM EDT) Narrative Jill Barnes CRNA, DNP - 09/09/2025 1:30 PM EDT Jill Barnes CRNA, DNP 09/09/2025 1:43 PM Airway Date/Time: 09/09/2025 1:30 PM Reason: elective Airway not difficult General Information and Staff Patient location during procedure: OR QC ANALYST: Jill Barnes CRNA, DNP Performed: QC ANALYST Patient Condition Indications for airway management: anesthesia Patient position: sniffing Final Airway Details Final airway type: endotracheal airway Successful airway: ETT Cuffed: yes Successful intubation technique: direct laryngoscopy Adjuncts used in placement: intubating stylet Endotracheal tube insertion site: oral Blade: Fabio Blade size: #3 ETT size (mm): 7.0 Cormack-Lehane Classification: grade I - full view of glottis Placement verified by: chest auscultation and capnometry Measured from: lips ETT to lips (cm): 20 Additional Comments Atraumatic. No change to dentition. Luciano Pratt MD ANESTHESIA ORDERABLES Final Res ult documented in this encounter Visit Diagnoses Not on filedocumented in this encounter Administered Medications Inactive Administered Medications - up to 3 most recent administrations Medication Order MAR Action Action Date Dose Rate Site clindamycin (Cleocin) IV solution Intravenous, As needed, Starting on Sun09/09/25 at 1400, Until Sun09/09/25 at 1606, Routine, Anesthesia Intraprocedure Given 09/09/2025 2:00 PM EDT 900 mg dexamethasone (Decadron) injection Intravenous, As needed, Starting on Sun09/09/25 at 1407, Until Sun09/09/25 at 1606, Routine, Anesthesia Intraprocedure Given 09/09/2025 2:07 PM EDT 4 mg ePHEDrine Sulfate (Akovaz) injection Intravenous, As needed, Starting on Sun09/09/25 at 1442, Until Sun09/09/25 at 1606, Routine, Anesthesia Intraprocedure Given 09/09/2025 3:01 PM EDT 5 mg Given 09/09/2025 2:42 PM EDT 5 mg fentaNYL (Sublimaze) injection Intravenous, As needed, Starting on Sun09/09/25 at 1327, Until Sun09/09/25 at 1606, Routine, Anesthesia Intraprocedure Given 09/09/2025 1:27 PM EDT 50 mcg heparin (porcine) injection Subcutaneous, As needed, Starting on Sun09/09/25 at 1407, Until Sun09/09/25 at 1606, Routine, Anesthesia Intraprocedure Given 09/09/2025 2:29 PM EDT 3,000 Units Given 09/09/2025 2:07 PM EDT 5,000 Units lidocaine PF (Xylocaine) 2 % injection Intravenous, As needed, Starting on Sun09/09/25 at 1327, Until Sun09/09/25 at 1606, Routine, Anesthesia Intraprocedure Given 09/09/2025 1:27 PM EDT 60 mg ondansetron (Zofran) injection Intravenous, As needed, Starting on Sun09/09/25 at 1517, Until Sun09/09/25 at 1606, Routine, Anesthesia Intraprocedure Given 09/09/2025 3:17 PM EDT 4 mg propofol (Diprivan) injection Intravenous, As needed, Starting on Sun09/09/25 at 1327, Until Sun09/09/25 at 1606, Routine, Anesthesia Intraprocedure Given 09/09/2025 1:27 PM EDT 100 mg protamine injection Intravenous, As needed, Starting on Sun09/09/25 at 1515, Until Sun09/09/25 at 1606, Routine, Anesthesia Intraprocedure Given 09/09/2025 3:18 PM EDT 20 mg Given 09/09/2025 3:17 PM EDT 10 mg Given 09/09/2025 3:16 PM EDT 10 mg rocuronium (ZeMuron) injection Intravenous, As needed, Starting on Sun09/09/25 at 1327, Until Sun09/09/25 at 1606, Routine, Anesthesia Intraprocedure Given 09/09/2025 2:25 PM EDT 10 mg Given 09/09/2025 1:27 PM EDT 70 mg sodium chloride 0.9 % infusion Intravenous, Continuous PRN, Starting on Sun09/09/25 at 1315, Until Sun09/09/25 at 1606, Routine New Bag 09/09/2025 1:15 PM EDT sugammadex (Bridion) 100 MG/ML injection Intravenous, As needed, Starting on Sun09/09/25 at 1546, Until Sun09/09/25 at 1606, Routine, Anesthesia Intraprocedure Given 09/09/2025 3:46 PM EDT 200 mg documented in this encounter Additional Health Concerns Assessment Noted Time A fall risk assessment has been complete d for the patient 08/07/2025 2:23 PM EDT A Body Mass Index follow-up plan has been documented for the patient 08/07/2025 4:31 PM EDT documented as of this encounter Care Teams Position Description Manager Relationship Specialty Start Date End Date Michael Baez MD [address] [place] [address] PCP - General 04/08/21 Acacia Scott APRN [address] [place] [phone] Nurse Practitioner Cardiology 03/27/22 Virgilio Nguyễn MD [address] [place] [address] Referring Physician 10/07/24 documented as of this encounter
--- OUTSIDE RECORDS SUMMARY | 2025-09-09 22:55 | XMS_ITS | Encounter Summary ---
Author Organization [facility] Address [address] [place] [address] Care Team Providers Care Medical Billing Specialist Name Role Phone Michael Baez MD Primary Care Provider [phone] Acacia Scott APRN Unavailable [phone] Virgilio Nguyễn MD Unavailable [phone] Reason for Referral * Consultation (Routine) - Authorized Specialty Diagnoses / Procedures Referred By Terrence prasad Referred To Contact Neurosurgery Diagnoses Cerebral aneurysm Anders Sotelo MD [address] [address] Phone: tel: fax: Referral ID Status Reason Start Date Expiration Date Visits Requested Visits Authorized [id number] Authorized Specialty Services Required 03/12/2027 1 1 Scheduling Instructions Please schedule with Dr. Sotelo's clinic for post-stent follow-up * Imaging (Routine) - Closed Specialty Diagnoses / Procedures Referred By Terrence prasad Referred To Contact Radiology Diagnoses Aneurysm ([facility]/HCC) Procedures IR Arterial Embolization Anders Sotelo MD [address] [address] Phone: tel: fax: Referral ID Status Reason Start Date Expiration Date Visits Re quested Visits Authorized [id number] Closed 08/07/2025 02/06/2027 1 1 Reason for Visit * Auth/Cert (Routine) Specialty Diagnoses / Procedures Referred By Contac t Referred To Contact Diagnoses Cerebral aneurysm Anders Sotelo MD [address] [address] Phone: tel: fax: [facility] [address] [place] [address] Phone: tel: Referral ID Status Reason Start Date Expiration Date Visits Re quested Visits Authorized [id number] 1 1 Encounter Details Date Type Department Care Team (Latest Contact Info) Description 09/09/2025 11:55 PM EDT - 09/10/2025 2:18 PM EDT Hospital Encounter [facility] [address] [place] [phone] Anders Sotelo MD [address] [address] Sean Barnes RN Aneurysm ([facility]) (Primary Dx); Pre-op exam; Cerebral aneurysm Discharge Disposition: Home or Self Care Social [...] were you homeless or living in a long-term (including now)? 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) to steady your nerves or to get [...] Sign Reading Time Taken Comments Blood Pressure 150/88 09/10/2025 1:00 PM EDT Pulse 71 09/10/2025 1:00 PM EDT Temperature 36.9 C (98.4 F) 09/09/2025 10:00 PM EDT Respiratory Rate 23 09/10/2025 1:00 PM EDT Oxygen Saturation 95% 09/10/2025 1:00 PM EDT Inhaled Oxygen Concentration - - Weight 76.2 kg (167 lb 15.9 oz) 09/09/2025 8:55 AM EDT Height 162.6 cm (5' 4 ) 09/09/2025 8:55 AM EDT Body Mass Index 28.84 09/09/2025 8:55 AM EDT documented in this encounter Functional [...] Mejia RN documented as of this encounter Medications at Time of Discharge acetaminophen (Tylenol 8 Hour) 650 MG ER tablet Take 1 tablet by mouth every 8 hours as needed for mild pain. Do not crush, chew, or split. albuterol 108 (90 Base) MCG/ACT inhaler Inhale 2 puffs every 4 hours as needed. 02/05/2020 aspirin 81 MG EC tabletIndications :Cerebral aneurysm Take 1 tablet by mouth daily. 30 tablet 11 08/07/2025 azelastine (Astelin) 0.1 % nasal spray 07/04/2024 [...] by mouth daily. Eliquis 5 MG tablet Take 1 tablet by mouth 2 times a day. 180 tablet 3 09/14/2025 empagliflozin (Jardiance) 10 MG Take 1 tablet by mouth daily. 30 tablet 05/07/2025 Entresto 24-26 MG tablet 08/05/2025 escitalopram (Lexapro) 20 MG tablet Take 1 [...] mL under the skin every 56 days. Takes every 8 weeks - next dose due 09/07/25 03/13/2024 fluticasone (Flonase) 50 MCG/ACT nasal spray Administer 1 spray into each nostril daily. 11/06/2022 gabapentin (Neurontin) 300 MG capsule Take 1 capsule by mouth 3 times a day. 08/06/2025 Gemtesa 75 MG tablet Take 75 mg by mouth daily. ipratropium-albut willow (Combivent Respimat) 20-100 MCG/ACT inhaler Inhale 1 puff 4 times a day as needed for wheezing or shortness of breath. montelukast (Singulair) 10 MG tablet Take 1 tablet by mouth nightly. pantoprazole (Protonix) 40 MG EC tablet Take 1 tablet by mouth daily before breakfast. Do not crush, chew, or split. temazepam (Restoril) 15 MG capsule Take 1 capsule by mouth nightly. 08/14/2022 traZODone (Desyrel) 50 MG tablet Take 1 tablet by mouth nightly. documented as of this encounter Miscellaneous Notes * Addendum Note - Kelly Heredia RN - 09/10/2025 2:18 PM EDTEncounter addended by: Kelly Heredia RN on: 09/17/2025 11:26 AM Actions taken: Utilization Review saved, Utilization Review data saved * Addendum Note - Kelly Heredia RN - 09/10/2025 2:18 PM EDTEncounter addended by: Kelly Heredia RN on: 10/01/2025 1:03 PM Actions taken: Utilization Review saved, Utilization Review data saved * Significant Event - Rose Dang APRN, DNP - 09/10/2025 11:47 AM EDT No further ICU needs at this time; [facility] will sign off. Thank you for allowing us to participate in the care of this patient. Please feel free to contact us again for any further needs. Rose Dang APRN, DNP * Assessment & Plan Note - Rose Dang APRN, DNP - 09/10/2025 11:45 AM EDT Associated Problem(s): Electrolyte abnormality Trend and replace per ICU sliding scale protocol * Query Clarification Note - Rose Dang APRN, DNP - 09/10/2025 11:44 AM EDT Physician Clarification Please review the following and provide your response below. Patient is a 74 y/o female s/p aneurysm coiling. Lab results: Magnesium 09/09/25: 1.5 (L) MAR info: Magnesium sulfate IVPB 4g given 09/09/252139 Please provide the diagnoses associated with the medications listed above: [x]Hypomagnesemia []Other, (please specify) This documentation will become part of the patient's medical record. * Progress Notes - Luann Taylor RN - 09/10/2025 11:41 AM EDT POC reviewed with multidisciplinary team, per MD, pt is medically ready to discharge home s/p DSA with embolization. Pt aware and agreeable to discharge plan, no further questions. Discharge today. * Discharge Summary - Barbara Bennett MD - 09/10/2025 11:32 AM EDT Hospitalization Admit Date/Time: 09/09/2025 11:55 PM Admitting Attending: Anders Sotelo Discharge Date: 09/10/25 Discharge Attending Physician: Anders Sotelo MD PCP name and Address: Michael Baez MD [address] [facility] / [facility] [address] Referring provider name and address: Anders Sotelo MD [address] [facility] [address] [place] [address] Chief Concern, Brief History of Present Illness, and Hospital Course Patient presented to on 09/09/25 for a scheduled procedure. The patient was previously seen and evaluated as an outpatient and found to have R A2 aneurysm. [facility]. The patient tolerated the procedure without any intraoperative or postoperative complications. The patient was transferred to the PACU for immediate recovery from anesthesia. Shortly thereafter, the patient was transferred to the ICU for their continued recovery. On the day of discharge the patient's pain was controlled on PO pain regimen, toleratingPO diet, ambulating without issues, and voiding spontaneously. The patient was seen by the neurosurgery team and felt the patient has reached maximal benefit from hospital stay, and deemed the patient stable for discharge. The patient will follow up with Dr. Sotelo's clinic in 2 weeks. Surgeries and Procedures Procedures performed in this encounter Procedures Critical Care Medication List .. acetaminophen 650 MG ER tablet Commonly known [...] Breztri Aerosphere 160-9-4.8 MCG/ACT aerosol Generic drug: Lbgjlsn-Eyuzhywjris-Sqwwoitbpo Inhale 2 puffs 2 times a day. budesonide 0.5 MG/2ML nebulizer solution Commonly known as: Pulmicort Take 2 mL by nebulization 2 times a day. Rinse mouth with water after use to reduce aftertaste and incidence of candidiasis. Do not swallow. cetirizine 10 MG tablet Commonly known as: ZyrTEC 1 tablet. clopidogrel 75 MG tablet Commonly known as: Plavix Take 1 tablet by mouth daily. Eliquis 5 MG tablet Generic drug: apixaban Take 1 tablet by mouth 2 times a day. Start taking on: September 14, 2025 Entresto 24-26 MG tablet Generic drug: sacubitril-valsartan escitalopram 20 MG tablet Commonly known as: [...] mL under the skin every 56 days. Takes every 8 weeks - next dose due 09/07/25 fluticasone 50 MCG/ACT nasal spray Commonly known as: Flonase Administer 1 spray into each nostril daily. gabapentin 300 MG capsule Commonly known as: Neurontin Take 1 capsule by mouth 3 times a day. Gemtesa 75 MG tablet Generic drug: Vibegron Take 75 mg by mouth daily. ipratropium-albuterol 20-100 MCG/ACT inhaler Commonly known as: Combivent Respimat Inhale 1 puff 4 times a day as needed for wheezing or shortness of breath. montelukast 10 MG tablet Commonly known as: Singulair Take 1 tablet by mouth nightly. pantoprazole 40 MG EC tablet Commonly known as: Protonix Take 1 tablet by mouth daily before breakfast. Do not crush, chew, or split. temazepam 15 MG capsule Commonly known as: Restoril Take 1 capsule by mouth nightly. traZODone 50 MG tablet Commonly known as: Desyrel Take 1 tablet by mouth nightly. . empagliflozin 10 MG Commonly known as: Jardiance Take 1 tablet by mouth daily. Where to Get Your Medications These medications were sent to [facility] [address] [facility] [place] [address] [address] [place] [address] Eliquis 5 MG tablet Discharge Diagnosis Medical Problems Active and Resolved Hospital Problems Hospital PAF (paroxysmal atrial fibrillation) Coronary artery disease involving washoe coronary artery of washoe heart without angina pectoris Hypertension Mixed hyperlipidemia RLS (restless legs syndrome) (Chronic) Gastroesophageal reflux disease without esophagitis * (Principal) Cerebral aneurysm Overview Signed 06/22/2025 11:51 AM by Daphne Luis APRN, ERIBERTO Right JONAH A2 segment aneurysm treated with first stage intracranial stent from right A2-A1 Continue ASA 81 mg and Plavix 75 mg daily (first dose tomrrow) Femoral access, Angioseal SBP<140 COPD (chronic obstructive pulmonary disease) Anxiety Insomnia Post Discharge Instructions DISCHARGE INSTRUCTIONS: Diet: No Restrictions. Resume regular at home diet. Follow the Healthy Heart Diet (See instructions in your patient education handouts). Lifting: No lifting more than 5 lbs for 14 days. Activity: Move around as you are able, do not drive while taking narcotic pain medications. Medication Instructions: Take Medication exactly as instructed. Do not take any medications that have not been ordered for you. This means do not take other people's medication, illegal drugs or substances, or even more medication than has been ordered. Recommended Follow Up Instructions: Follow Up Instructions: Follow up with: Neurosurgery - Address/Phone Number: [facility], [address] [place] [address] #[phone]. Outpatient Follow-Up No future appointments. Test Results Pending At Discharge None Pertinent Physical Exam At Time of Discharge Physical Exam General: No acute distress. HEENT: Normocephalic, atraumatic PULM: No increased work of breathing CV: Vital signs stable. Discharge Disposition/Condition Disposition: Home Condition: Stable (s/sx potential problems absent or manageable) I spent >30 minutes of patient care and instruction time in preparation for this discharge. Cosigned by Anders Sotelo MD at 09/14/2025 11:05 AM EDT Associated attestation - Anders Sotelo MD - 09/14/2025 11:05 AM EDT I saw and evaluated the patient with the resident/fellow. I discussed the case with the resident/fellow and agree with the findings and plan as documented. * Miguel Rosario, PharmD - 09/10/2025 8:31 AM EDT Images from the original note were not included. [id number] Apixaban IMPORTANT WARNING: If you have atrial fibrillation (a condition in which the heart beats irregularly, increasing the chance of clots forming in the body, and possibly causing strokes) and are taking apixaban to help prevent strokes or serious blood clots, you are at a higher risk of having a stroke after you stop taking this medication. Do not stop taking apixaban without talking to your doctor. Continue to take apixaban even if you feel well. Be sure to refill your prescription before you run out of medication so that you will not miss any doses of apixaban. If you need to stop taking apixaban, your doctor mayprescribe another anticoagulant ('blood thinner') to help prevent a blood clot from forming and causing you to have a stroke. If you have epidural or spinal anesthesia or a spinal puncture while taking a 'blood thinner' such as apixaban, you are at risk of having a blood clot form in or around your spine that could cause you to become paralyzed. Tell your doctor if you have an epidural catheter that is left in your body or have or have ever had repeated epidural or spinal punctures, spinal deformity, or spinal surgery. Tell your doctor and pharmacist if you are taking any of the following: anagrelide (Agrylin??); aspirin and other nonsteroidal anti-inflammatory drugs (NSAIDs) such as ibuprofen (Advil??, Motrin??, others), indomethacin (Indocin??, Tivorbex??), ketoprofen, and naproxen (Aleve??, Anaprox??, others); cilostazol (Pletal??); clopidogrel (Plavix??); dipyridamole (Persantine??); eptifibatide (Integrilin??); heparin; prasugrel (Effient??); ticagrelor (Brilinta??); ticlopidine; tirofiban (Aggrastat??), and warfarin (Coumadin??, Jantoven??). If you experience any of the following symptoms, call your doctor immediately: muscle weakness (especially in your legs and feet), numbness or tingling (especially in your legs), or loss of control of your bowels or bladder. Your doctor or pharmacist will give you the digital sales manager's patient information sheet (Medication Guide) when you begin treatment with apixaban and each time you refill your prescription. Read the information carefully and ask your doctor or pharmacist if you have any questions. You can also visit the Food and Drug Administration (FDA) website (https://www.fda.gov/Drugs/DrugSafety/wif438660.htm) or the digital sales manager's website to obtain the Medication Guide. Talk to your doctor about the risks of taking apixaban. WHY is this medicine prescribed? Apixaban is used to help prevent strokes or blood clots in people who have atrial fibrillation (a condition in which the heart beats irregularly, increasing the chance of clots forming in the body and possibly causing strokes) that is not caused by heart valve disease. Apixaban is also used to prevent deep vein thrombosis (DVT; a blood clot, usually in the leg) and pulmonary embolism (PE; a bloodclot in the lung) in people who are having hip replacement or knee replacement surgery. Apixaban isalso used to treat DVT and PE and may be continued to prevent DVT and PE from happening again afterthe initial treatment is completed. Apixaban is in a class of medications called factor Xa inhibitor s. It works by blocking the action of a certain natural substance that helps blood clots to form. HOW should this medicine be used? Apixaban comes as a tablet to take by mouth. It is usually taken with or without food twice a day. When apixaban is taken to prevent DVT and PE after hip or knee replacement surgery, the first dose should be taken at least 12 to 24 hours after surgery. Apixaban is usually taken for 35 days after a hip replacement surgery and for 12 days after knee replacement surgery. Take apixaban at around the same times every day. Follow the directions on your prescription label carefully, and ask your doctor or pharmacist to explain any part you do not understand. Take apixaban exactly as directed. Do nottake more or less of it or take it more often than prescribed by your doctor. If you are unable to swallow the tablets, you can crush them and mix with water, apple juice, or applesauce. Swallow the mixture right after you prepare it. Apixaban can also be given in certain types of feeding tubes. Ask your doctor if you should take this medication in your feeding tube. Follow your doctor's directions carefully. Continue to take apixaban even if you feel well. Do not stop taking apixaban without talking to your doctor. If you stop taking apixaban, your risk of a blood clot may increase. Are there OTHER USES for this medicine? This medication may be prescribed for other uses; ask your doctor or pharmacist for more information. What SPECIAL PRECAUTIONS should I follow? Before taking apixaban, ? tell your doctor and pharmacist if you are allergic to apixaban, any other medications, or any ofthe ingredients in apixaban tablets. Ask your pharmacist or check the Medication Guide for a list of the ingredients. ? Tell your doctor and pharmacist what prescription and nonprescription medications, vitamins, nutritional supplements, and herbal products you are taking or plan to take while taking apixaban. Your doctor may need to change the doses of your medications or monitor you carefully for side effects. ? The following nonprescription or herbal products may interact with apixaban: Rachel's wort; aspirin; NSAIDs (such as ibuprofen [Advil??, Motrin??] and naproxen [Aleve??, Naprosyn??]). Be sure to let your doctor and pharmacist know that you are taking these medications before you start taking apixaban. Do not start any of these medications while taking apixaban without discussing with your healthcare provider. ? you should know that apixaban may interact with certain medications that may be used to treat youif you have a stroke or other medical emergency. In case of an emergency, you or a family member should tell the doctor or emergency room staff who treat you that you are taking apixaban. ? tell your doctor if you have an artificial heart valve or if you have heavy bleeding anywhere in your body that cannot be stopped. Your doctor will probably tell you not to take apixaban. ? tell your doctor if you have or have ever had any type of bleeding problem, antiphospholipid syndrome (APS; a condition that causes blood clots), or kidney or liver disease. ? tell your doctor if you are , plan to become , or are . If you become while taking apixaban, call your doctor. ? if you are having surgery, including dental surgery, tell the doctor or dentist that you are taking apixaban. Your doctor may tell you to stop taking apixaban before the surgery or procedure. If you need to stop taking apixaban because you are having surgery, your doctor may prescribe a differentmedication to prevent blood clots during this time. Your doctor will tell you when you should starttaking apixaban again after your surgery. Follow these directions carefully. ? Call your doctor right away if you fall or injure yourself, especially if you hit your head. Yourdoctor may need to check you. What SPECIAL DIETARY instructions should I follow? Unless your doctor tells you otherwise, continue your normal diet. What should I do IF I FORGET to take a dose? Take the missed dose as soon as you remember it. However, if it is almost time for the next dose, skip the missed dose and continue your regular dosing schedule. Do not take a double dose to make up for a missed one. What SIDE EFFECTS can this medicine cause? Some side effects can be serious. If you experience any of these symptoms, call your doctor immediately or get emergency medical treatment: ? bleeding gums ? nosebleeds ? heavy vaginal bleeding ? red, pink, or brown urine ? red or black, tarry stools ? coughing up or vomiting blood or material that looks like coffee grounds ? swelling or joint pain ? headache ? rash ? chest pain or tightness ? swelling of the face or tongue ? trouble breathing ? wheezing ? feeling dizzy or faint Apixaban prevents blood from clotting normally, so it may take longer than usual for you to stop bleeding if you are cut or injured. This medication may also cause you to bruise or bleed more easily.Call your doctor right away if bleeding or bruising is unusual, severe, or cannot be controlled. Apixaban may cause other side effects. Call your doctor if you have any unusual problems while taking this medication. If you experience a serious side effect, you or your doctor may send a report to the Food and Drug Administration's (FDA) MedWatch Adverse Event Reporting program online (https://www.fda.gov/Safety/MedWatch) or by phone ( ). What should I know about STORAGE and DISPOSAL of this medication? Keep this medication in the container it came in, tightly closed, and out of reach of children. Store it at room temperature and away from light, excess heat and moisture (not in the bathroom). Dispose of unneeded medications in a way so that pets, children, and other people cannot take them.Do not flush this medication down the toilet. Use a medicine take-back program. Talk to your pharmacist about take-back programs in your community. Visit the FDA's Safe Disposal of Medicines website h ttps://goo.gl/c4Rm4p for more information. Keep all medication out of sight and reach of children as many containers are not child-resistant. Always lock safety caps. Place the medication in a safe location - one that is up and away and out of their sight and reach. https://www.upandaway.org What should I do in case of OVERDOSE? In case of overdose, call the poison control helpline at . Information is also available online at https://www.poisonhelp.org/help. If the victim has collapsed, had a seizure, has trouble breathing, or can't be awakened, immediately call emergency services at 911. Symptoms of overdose may include the following: ? unusual bleeding or bruising ? red, brown, or pink urine ? red or black, tarry stools ? coughing up or vomiting blood or material that looks like coffee grounds What OTHER INFORMATION should I know? Keep all appointments with your doctor. Do not let anyone else take your medication. Ask your pharmacist any questions you have about refilling your prescription. Keep a written list of all of the prescription and nonprescription (uwxm-enf-bdvewce) medicines, vitamins, minerals, and dietary supplements you are taking. Bring this list with you each time you visit a doctor or if you are admitted to the hospital. You should carry the list with you in case of reno rgencies. Brand Name(s): ? Eliquis?? This report on medications is for your information only, and is not considered individual patient advice. Because of the changing nature of drug information, please consult your physician or pharmacist about specific clinical use. The [employer] represents that the information provided hereunder was formulated with a reasonable standard of care, and in conformity with professional standards in the field. The [employer] makes no representations or warranties, express or implied, including, but not limited to, any implied warranty of merchantability and/or fitness for a particular purpose, with respect to such information and specifically disclaims all such warranties. Users are advised that decisions regarding drug therapy are complex medical decisions requiring the independent, informed decision of an appropriate health director of primary care, and the information is provided for informational purposes only. The entire monograph for a drug should be reviewed for a thorough understanding of the drug's actions, uses and side effects. The [employer] does not endorse or recommend the use of any drug.The information is not a substitute for medical care. AHFS?? Patient Medication Information?. ?? Copyright, 2023. [employer]??, [address], [address], [place], [place]. All Rights Reserved. Duplication for commercial use must be authorized by [facility]. Selected Revisions: January 10, 2025. AHFS?? Patient Medication Information?. ?? Copyright, 2024 * H&P - Rose Dang APRN, DNP - 09/09/2025 5:20 PM EDTAssociated Order(s): Critical Care Post-Procedure Diagnose(s): Aneurysm (CMS/HCC) Critical Care Performed by: Rose Dang APRN, DNP Authorized by: Rose Dang APRN, DNP Critical care provider statement: Critical care time (minutes): 50 Critical care time was exclusive of: Separately billable procedures and treating other patients andteaching time Critical care was time spent personally by me on the following activities: Development of treatmentplan with patient or surrogate, discussions with primary provider, evaluation of patient's responseto treatment, examination of patient, obtaining history from patient or surrogate, ordering and review of radiographic studies, ordering and review of laboratory studies, ordering and performing treatments and interventions and review of old charts 09/09/25 Susannah Andres Consulted for critical care management by Neurosurgery HPI Susannah Andres is a 74 y.o. female with PMH of CAD, CHF, afib, HTN, HLD, CO, PAH, COPD, CORNELIA, GERD, RLS who presents with Cerebral aneurysm s/p right JONAH A2 segment aneurysm, successfully treatedwith stage II intracranial Y stent and aneurysm coiling. Continue DAPT per NSGY. Ms Andres has been admitted to the ICU post procedurally. She is neuro intact and hemodynamically stable on 2L NC. Duonebs ordered for intermittent wheezing. Her only complaint is an acute worseningof her chronic left hip pain, somewhat improved with PRN pain medications. Right femoral access with angioseal, dressing CDI, no ecchymosis or hematoma. Airway view (if available) was: grade I - full view of glottis Lines/Drains/Tubes: Patient Lines/Drains/Airways Status Active Active LDAs Name Placement date Placement time Site Days Peripheral IV 09/09/25 Right Saphenous 09/09/25 1332 Saphenous less than 1 Arterial Line 09/09/25 Left Radial 09/09/25 1335 Radial less than 1 Last antibiotic: Patient recently received an antibiotic (last 12 hours) Showing orders from other encounters Date/Time Action Medication Dose 09/09/25 1400 Given clindamycin (Cleocin) IV solution 900 mg Per the patient questionnaire: Patient answers are not available for this visit. Past Medical History: Active Ambulatory Problems Diagnosis Date Noted PAF (paroxysmal atrial fibrillation) 02/13/2019 Coronary artery disease involving washoe coronary artery of washoe heart without angina pectoris 05/13/2019 Hypertension 05/02/2019 Mixed hyperlipidemia 08/28/2021 RLS (restless legs syndrome) 08/15/2022 Gastroesophageal reflux disease without esophagitis 07/18/2022 Cerebral aneurysm 06/22/2025 COPD (chronic obstructive pulmonary disease) 06/22/2025 Anxiety 06/22/2025 Insomnia 06/22/2025 Resolved Ambulatory Problems Diagnosis Date Noted Chronic obstructive lung disease 09/11/2017 Compression fracture of vertebra ([facility]) 05/13/2019 Hypercholesterolemia 01/02/2020 Palpitations 05/02/2019 Sleep apnea 05/02/2019 COPD exacerbation ([facility]) 08/15/2022 Elevated troponin 08/15/2022 Abnormal echocardiogram 10/02/2022 Muscle cramps 04/10/2024 Arthritis of right hip 10/07/2024 Acute coronary syndrome 10/07/2024 CAP (community acquired pneumonia) 05/02/2025 CHF exacerbation 05/02/2025 Brain aneurysm 05/02/2025 Community acquired pneumonia, unspecified laterality 05/02/2025 Abrasion of left cornea 06/22/2025 Past Medical History: Diagnosis Date Abnormal ECG Aneurysm ([facility]) 05/10/2025 Arthritis 2011 Asthma Atrial fibrillation ([facility] CHF (congestive heart failure) 2003 Chronic bronchitis ([facility]) 2011 Coronary artery disease 2002 Headache 04/26/2025 Hypercholesteremia Irregular heart beat 2003 Low back pain 2020 CO (myocardial infarction) Obesity 2020 Obstructive sleep apnea (adult) (pediatric) Old myocardial infarction Pneumonia 2011 Pulmonary arterial hypertension 2017 Radiculopathy 2020 Restless leg syndrome Vertebral compression fracture 05/26/2022 Past Surgical History: Surgical History[1] Home Medications: Prior to Admission medications Medication Sig Start Date End Date Taking? Authorizing Provider acetaminophen (Tylenol 8 Hour) 650 MG ER tablet Take 1 tablet by mouth every 8 hours as needed for mild pain. Do not crush, chew, or split. Yes Provider, Historical albuterol 108 (90 Base) MCG/ACT inhaler Inhale 2 puffs every 4 hours as needed. 02/05/20 Yes Provider, Historical aspirin 81 MG EC tablet Take 1 tablet by mouth daily. 08/07/25 Yes Anders Sotelo MD bisoprolol (Zebeta) 5 MG tablet Take 1 tablet by mouth daily. Yes Provider, Historical clopidogrel (Plavix) 75 MG tablet Take 1 tablet by mouth daily. Yes Provider, Historical Entresto 24-26 MG tablet 08/05/25 Yes Provider, Historical escitalopram (Lexapro) 20 MG tablet Take 1 tablet by mouth daily. Yes Provider, Historical gabapentin (Neurontin) 300 MG capsule Take 1 capsule by mouth 3 times a day. 08/06/25 Yes Provider, Historical pantoprazole (Protonix) 40 MG EC tablet Take 1 tablet by mouth daily before breakfast. Do not crush, chew, or split. Yes Provider, Historical temazepam (Restoril) 15 MG capsule Take 1 capsule by mouth nightly. 08/14/22 Yes Provider, Historical traZODone (Desyrel) 50 MG tablet Take 1 tablet by mouth nightly. Yes Provider, Historical azelastine (Astelin) 0.1 % nasal spray 07/04/24 Provider, Historical Frydthf-Stjbkvboxbs-Vbtxsgvrvh (Breztri Aerosphere) 160-9-4.8 MCG/ACT aerosol Inhale 2 puffs 2 times a day. Provider, Historical budesonide (Pulmicort) 0.5 MG/2ML nebulizer solution Take 2 mL by nebulization 2 times a day. [place] with water after use to reduce aftertaste and incidence of candidiasis. Do not swallow. Provider, Historical cetirizine (ZyrTEC) 10 MG tablet 1 tablet. 01/30/25 Provider, Historical Eliquis 5 MG tablet TAKE 1 TABLET BY MOUTH TWO TIMES A DAY 01/20/25 Acacia Scott APRN empagliflozin (Jardiance) 10 MG Take 1 tablet by mouth daily. 05/07/25 Sasha Kelly MD Evolocumab (Repatha) 140 MG/ML solution auto-injector autoinjector Inject 1 mL under the skin every14 days. 05/07/25 Acacia Scott APRN famotidine (Pepcid) 20 MG tablet Take 1 tablet by mouth 2 times a day as needed. 08/15/21 Provider, Historical Fasenra Pen 30 MG/ML solution auto-injector injection Inject 1 mL under the skin every 56 days. Takes every 8 weeks - next dose due 09/07/25 03/13/24 Provider, Historical fluticasone (Flonase) 50 MCG/ACT nasal spray Administer 1 spray into each nostril daily. 11/06/22 Provider, Historical Gemtesa 75 MG tablet Take 75 mg by mouth daily. Provider, Historical ipratropium-albuterol (Combivent Respimat) 20-100 MCG/ACT inhaler Inhale 1 puff 4 times a day as needed for wheezing or shortness of breath. Provider, Historical montelukast (Singulair) 10 MG tablet Take 1 tablet by mouth nightly. Provider, Historical Social History: Pt has reports that she quit smoking about 2 years ago. Her smoking use included cigarettes. She started smoking about 65 years ago. She has a 126.2 pack-year smoking history. She has been exposed totobacco smoke. She has never used smokeless tobacco. She reports that she does not drink alcohol and does not use drugs. (details as available below) Social History Substance and Sexual Activity Alcohol Use Never Social History Substance and Sexual Activity Drug Use Never Tobacco Use History[2] Family History: Family History[3] Allergies: Allergies[4] ROS: GCS: Gayla Coma Scale Score: 15 NIH Stroke Scale: 0 Review of Systems Respiratory: Negative for cough and shortness of breath. Cardiovascular: Negative for chest pain and palpitations. Gastrointestinal: Negative for abdominal pain, diarrhea, nausea and vomiting. Musculoskeletal: Positive for arthralgias, back pain and myalgias. Neurological: Negative for light-headedness and headaches. Vital signs: Vitals: 09/09/25 1645 BP: 123/69 Pulse: 51 Resp: 16 Temp: SpO2: 97% Intake/Output Summary (Last 24 hours) at 09/09/2025 1659 Last data filed at 09/09/2025 1546 Gross per 24 hour Intake 50 ml Output 50 ml Net 0 ml Physical Exam: Sedation was held for the purposes of examination. Physical Exam Constitutional: General: She is not in acute distress. Appearance: She is not ill-appearing. HENT: Head: Normocephalic and atraumatic. Right Ear: External ear normal. Left Ear: External ear normal. Nose: Nose normal. Mouth/Throat: Mouth: Mucous membranes are moist. Pharynx: Oropharynx is clear. Eyes: Extraocular Movements: Extraocular movements intact. Conjunctiva/sclera: Conjunctivae normal. Pupils: Pupils are equal, round, and reactive to light. Cardiovascular: Rate and Rhythm: Normal rate and regular rhythm. Pulses: Normal pulses. Heart sounds: Normal heart sounds. Pulmonary: Effort: Pulmonary effort is normal. Breath sounds: Wheezing present. Abdominal: Palpations: Abdomen is soft. Tenderness: There is no abdominal tenderness. Musculoskeletal: Cervical back: Normal range of motion and neck supple. Skin: Capillary Refill: Capillary refill takes less than 2 seconds. Neurological: General: No focal deficit present. Mental Status: She is alert and oriented to person, place, and time. GCS: GCS eye subscore is 4. GCS verbal subscore is 5. GCS motor subscore is 6. Comments: FC with all extremities Psychiatric: Mood and Affect: Mood normal. Behavior: Behavior normal. Thought Content: Thought content normal. Labs in last 18 hours: CBC WBC ?? Hb ?? Plt ?? Hct ?? ANC ?? INR ??, PTT ??, Anti-Xa ?? BMP Na ?? Cl ?? BUN ?? Glu ?? K ?? Co2 ?? Cr ?? Ca ?? iCa ?? Mg ??, Phos ?? Lactate ?? LFT AST ?? AlkPhos ?? T Prot ?? ALK ?? Bili ?? Alb ?? D.Bili ?? Imaging if available: === 05/01/25 === IMAGING MRI PROCEDURE NOT PERFORMED - Narrative - This procedure was not performed. Procedure: MR ANGIO HEAD WO IV CONTRAST Reason: Unable to Tolerate Exam === 05/01/25 === CT HEAD WO IV CONTRAST - Narrative - CLINICAL INDICATION: eval bleeding from aneurysm TECHNIQUE: Routine contiguous axial CT images of the head were obtained without contrast administration. Total DLP (Dose-Length Product): 659.97 mGy.cm. Please note: The reported value represents the total of one or more individual components during the CT acquisition on this date and at this time, and as such, the same value may appear in more than one CT report depending on the interpreting/reporting physicians. COMPARISON: CT angiogram head and neck 05/15/2025 FINDINGS: No acute intracranial abnormality. No evidence of acute hemorrhage or ischemia. Multiple hypodensities within the white matter tracts favored to represent sequela of chronic ischemic vascular disease. Redemonstrated fusiform A2 branch aneurysm with local mass effect, better characterized on recently performed head CTA. No other mass. No midline displacement of structures. Normal ventricular size and configuration. Patent basal cisterns. No displaced or depressed calvarial fractures. The visualized paranasal sinuses and mastoid air cells are clear. - Impression - No intracranial hemorrhage or large cortical infarcts. Redemonstrated fusiform A2 branch aneurysm better detailed on recent CT angiogram head examination. CRITICAL RESULT: No. COMMUNICATION: Per this written report. Preliminary report signed by Kenrick Sylvester MD on 05/02/2025 12:47 AM By electronically signing this report, I, the attending physician, attest that I have personally reviewed the images/data for the above examination(s) and agree with the final edited report. Drafted by Kenrick Sylvester MD on 05/02/2025 12:34 AM Final report signed by Robel Chakraborty MD on 05/02/2025 1:03 AM === 05/01/25 === XR CHEST 1 VIEW [...] patient is critically ill. Assessment & Plan Cerebral aneurysm Present on Admission: Yes 09/09: Right JONAH A2 segment aneurysm, successfully treated with stage II intracranial Y stent and aneurysm coiling Continue ASA 81 mg and Plavix 75 mg daily Femoral access, Angioseal SBP<140 PAF (paroxysmal atrial fibrillation) Present on Admission: Yes Resume home bisoprolol when appropriate Currently holding as bradycardic immediately post procedure Resume Eliquis per NSGY Coronary artery disease involving washoe coronary artery of washoe heart without angina pectoris Present on Admission: Yes Resume home medications as appropriate Hypertension Present on Admission: Yes SBP<140 Continue PRN labetalol and hydralazine Mixed hyperlipidemia Present on Admission: Yes Resume home medications as appropriate RLS (restless legs syndrome) Present on Admission: Yes Resume home requip as appropriate Gastroesophageal reflux disease without esophagitis Present on Admission: Yes Resume home medications as appropriate COPD (chronic obstructive pulmonary disease) Present on Admission: Yes PRN Duonebs Resume home medications as appropriate Anxiety Present on Admission: Yes Resume home temazepam as appropriate Insomnia Present on Admission: Yes Continue home trazodone as appropriate Rose Dang APRN, DNP [1] Past Surgical History: Procedure Laterality Date ABLATION OF DYSRHYTHMIC FOCUS AORTIC VALVE REPLACEMENT BILIARY DRAINAGE N/A Atrial Cardioversion from [facility] CARDIAC CATHETERIZATION CARDIOTHORACIC PROCEDURE 2002 CAROTID STENT CATH STENT PLACEMENT/ CATH PLACEMENT OF STENT N/A Cath Stent Placement from [facility] COLON SURGERY N/A Colon Surgery from [facility] CORONARY ANGIOPLASTY CORONARY ARTERY BYPASS GRAFT N/A CABG from [facility] CORONARY STENT PLACEMENT EYE SURGERY April 2025 HYSTERECTOMY N/A Hysterectomy from [facility] KNEE ARTHROPLASTY 2011 ORTHOPEDIC SURGERY 2010 OTHER SURGICAL HISTORY 1982? Hysterectomy TOTAL KNEE ARTHROPLASTY Bilateral Knee Replacement from [facility] [2] Social History Tobacco Use Smoking Status Former Current packs/day: 0.00 Average packs/day: 2.0 packs/day for 63.1 years (126.2 ttl pk-yrs) Types: Cigarettes Start date: 11/26/1959 Quit date: 12/2022 Years since quittin.7 Passive exposure: Current Smokeless Tobacco Never [3] Family History Problem Relation Name Age of Onset Coronary artery disease Mother Coronary artery disease Father Migraines Sister Kait Reese Anesthesia problems Neg Hx Malig Hyperthermia Neg Hx [4] Allergies Allergen Reactions Diphenhydramine Anaphylaxis, Hives, Itching, [...] me crazy and antsy , paradoxical reaction * Brief Op Note - Yumi Jefferson MD - 09/09/2025 10:15 AM EDT Date: 09/09/25 Location: [facility] Name: Susannah Andres, : 1950, Diagnoses: Pre-op Diagnosis JONAH aneurysm Post-op Diagnosis same Procedure(s): DSA with embolization Attending Surgeon(s): Anders Sotelo MD Electrical Controls Technician(s): Yumi Jefferson MD Anesthesia: * No anesthesia type entered * ASA: III Blood Administration: Blood Product Administration History None Estimated Blood Loss: 50 mL Drains: * None in log * Implants Type Name Action Serial No. STENT WITHOUT TIP ATLAS 3MM X 24MM - [id number] Implanted HIP STEM INZONE DETACHMENT - [id number] Implanted COIL DETACH XL SOFT [id number] - [id number] Implanted COIL DETACH XL SOFT 60S48UL - [id number] Implanted COIL DETACH XL SOFT [id number] - [id number] Implanted COIL DETACH XL SOFT [id number] - [id number] Implanted COIL DETACH XL SOFT 8X30CM - [id number] Implanted COIL DETACH XL SOFT 7X20CM - [id number] Implanted COIL DETACH XL SOFT 7X20CM - [id number] Implanted COIL DETACH XL SOFT 6X20CM - [id number] Implanted COIL 360 ULTRA 5MM-15CM - [id number] Implanted COIL 360 ULTRA 5MM-15CM - [id number] Implanted CLOSURE DEVICE VIP ANGIOSEAL 8 FR - [id number] Implanted Specimen: Findings: Right anterior cerebral artery A2 segment aneurysm, Successfully treated with stage II intracranialY stent and aneurysm coiling Femoral access, Angioseal Continue DAPT Femoral access, Angioseal 2h flat time Complications: None; patient tolerated the procedure well. Submitted by: Yumi Jefferson MD - 09/09/2025 * Assessment & Plan Note - Rose Dang APRN, DNP - 09/09/2025 10:15 AM EDT Associated Problem(s): RLS (restless legs syndrome) Resume home requip as appropriate * Assessment & Plan Note - Rose Dang APRN, DNP - 09/09/2025 10:15 AM EDT Associated Problem(s): Cerebral aneurysm 09/09: Right JONAH A2 segment aneurysm, successfully treated with stage II intracranial Y stent and aneurysm coiling Continue ASA 81 mg and Plavix 75 mg daily Femoral access, Angioseal SBP<140 * Assessment & Plan Note - Rose Dang APRN, DNP - 09/09/2025 10:15 AM EDT Associated Problem(s): PAF (paroxysmal atrial fibrillation) Resume home bisoprolol when appropriate Currently holding as bradycardic immediately post procedure Resume Eliquis per NSGY * Assessment & Plan Note - Rose Dang APRN, DNP - 09/09/2025 10:15 AM EDT Associated Problem(s): Coronary artery disease involving washoe coronary artery of washoe heart without angina pectoris Resume home medications as appropriate * Assessment & Plan Note - Rose Dang APRN, DNP - 09/09/2025 10:15 AM EDT Associated Problem(s): Hypertension SBP<140 Continue PRN labetalol and hydralazine * Assessment & Plan Note - Rose Dang APRN, DNP - 09/09/2025 10:15 AM EDT Associated Problem(s): Mixed hyperlipidemia Resume home medications as appropriate * Assessment & Plan Note - Rose Dang APRN, DNP - 09/09/2025 10:15 AM EDT Associated Problem(s): Gastroesophageal reflux disease without esophagitis Resume home medications as appropriate * Assessment & Plan Note - Rose Dang APRN, DNP - 09/09/2025 10:15 AM EDT Associated Problem(s): COPD (chronic obstructive pulmonary disease) PRN Duonebs Resume home medications as appropriate * Assessment & Plan Note - Rose Dang APRN, DNP - 09/09/2025 10:15 AM EDT Associated Problem(s): Anxiety Resume home temazepam as appropriate * Assessment & Plan Note - Rose Dang APRN, DNP - 09/09/2025 10:15 AM EDT Associated Problem(s): Insomnia Continue home trazodone as appropriate * H&P - Yumi Jefferson MD - 09/09/2025 10:15 AM EDT NEURO INTERVENTIONAL PRE PROCEDURAL NOTE HISTORY OF PRESENT ILLNESS Susannah Andres is a 74 y.o. female here for stage II stent assist coiling Past Medical History[1] Surgical History[2] Family History[3] Social History[4] Diphenhydramine, Isosorbide, Penicillins, Codeine, Hydrocodone, Diazepam, Hydromorphone, and Lorazepam REVIEW OF SYSTEMS: 14 system review of systems was conducted and was negative. PHYSICAL EXAMINATION Vitals: Vitals: 09/09/25 0900 BP: 131/79 Pulse: 58 Resp: 16 Temp: SpO2: 92% General: No acute distress. HEENT: Normocephalic, atraumatic PULM: No increased work of breathing CV: Vital signs stable. LABS Lab Results Component Value Date GLUCOSE 124 (H) 06/23/2025 CALCIUM 8.2 (L) 06/23/2025 NA 141 06/23/2025 K 3.8 06/23/2025 CO2 22 06/23/2025 CL 110 (H) 06/23/2025 BUN 12 06/23/2025 CREATININE 0.40 (L) 06/23/2025 Lab Results Component Value Date WBC 7.60 06/23/2025 HGB 11.0 (L) 06/23/2025 HCT 33.7 (L) 06/23/2025 MCV 96 06/23/2025 PLT 273 06/23/2025 Lab Results Component Value Date INR 1.1 06/02/2025 INR 1.1 05/04/2025 INR 1.4 (H) 05/01/2025 ASSESSMENT AND PLAN - Proceed to LEÓN Jefferson MD Neuro Endovascular Fellow [1] Past Medical History: Diagnosis Date Abnormal ECG Aneurysm (CMS/HCC) 05/10/2025 Arthritis 2011 Asthma Atrial fibrillation (CMS/HCC) CHF (congestive heart failure) 2003 Chronic bronchitis (CMS/HCC) 2011 COPD (chronic obstructive pulmonary disease) Coronary artery disease 2002 Gastroesophageal reflux disease without esophagitis Headache 04/26/2025 Hypercholesteremia Hypertension Irregular heart beat 2003 Low back pain 2020 CO (myocardial infarction) Obesity 2020 Obstructive sleep apnea (adult) (pediatric) CORNELIA on CPAP Old myocardial infarction History of myocardial infarction Pneumonia 2011 Pulmonary arterial hypertension 2017 Radiculopathy 2019 Restless leg syndrome Vertebral compression fracture 05/26/2022 [2] Past Surgical History: Procedure Laterality Date ABLATION OF DYSRHYTHMIC FOCUS AORTIC VALVE REPLACEMENT BILIARY DRAINAGE N/A Atrial Cardioversion from [facility] CARDIAC CATHETERIZATION CARDIOTHORACIC PROCEDURE 2002 CAROTID STENT CATH STENT PLACEMENT/ CATH PLACEMENT OF STENT N/A Cath Stent Placement from [facility] COLON SURGERY N/A Colon Surgery from [facility] CORONARY ANGIOPLASTY CORONARY ARTERY BYPASS GRAFT N/A CABG from [facility] CORONARY STENT PLACEMENT EYE SURGERY April 2025 HYSTERECTOMY N/A Hysterectomy from [facility] KNEE ARTHROPLASTY 2012 ORTHOPEDIC SURGERY 2010 OTHER SURGICAL HISTORY 1982? Hysterectomy TOTAL KNEE ARTHROPLASTY Bilateral Knee Replacement from [facility] [3] Family History Problem Relation Name Age [...] EST Appointment [facility] [address] [place] [address] 10/20/2025 4:00 PM EST Office Visit [place] [facility] [address] [place] [address] Davdi Gallego MD [address] [place] [address] Scheduled Referrals Name Type Priority Associated Diagnoses Order Schedule Ambulatory referral to Neurosurgery Outpatient Referral Routine Cerebral aneurysm Expected: 09/24/2025, Expires: 03/14/2027 documented as of this encounter Procedures Procedure Name Priority Date/Time Associated Diagnosis Comments EXTRA TUBE LAVENDER TOP Routine 09/10/2025 4:45 AM EDT EXTRA TUBE LIGHT GREEN TOP Routine 09/10/2025 4:45 AM EDT EXTRA TUBES Routine 09/10/2025 4:45 AM EDT BLOOD GAS PANEL, ARTERIAL Routine 09/09/2025 5:51 PM EDT CBC W/O DIFFERENTIAL Routine 09/09/2025 5:50 PM EDT PHOSPHORUS, PLASMA Routine 09/09/2025 5: 50 PM EDT MAGNESIUM, PLASMA Routine 09/09/2025 5:5 0 PM EDT COMPREHENSIVE METABOLIC PANEL, PLASMA Routine 09/09/2025 5:50 PM EDT [facility] CRITICAL CARE, E/M 30-74 MINUTES Routine 09/09/2025 5:20 PM EDT Aneurysm (CMS/HCC) OXYGEN THERAPY Routine 09/09/2025 3:52 PM EDT OXYGEN THERAPY Routine 09/09/2025 3:51 PM EDT IR ARTERIAL EMBOLIZATION Routine 09/09/2025 3:44 PM EDT Aneurysm (CMS/HCC) documented in this encounter Results * Lavender Top (09/10/2025 4:45 AM EDT) Extra Hold for add-ons 09/10/2025 8:02 AM EDT [facility] Comment:Auto resulted. Blood Venous blood specimen / Unknown 09/10/2025 4:45 AM EDT 09/10/2025 5:05 AM EDT us Anders Sotelo MD LAB BLOOD ORDERABLES Final Re sult [facility] [address] [place] [address] * Light Green Top (09/10/2025 4:45 AM EDT) Extra Hold for add-ons 09/10/2025 8:02 AM EDT [facility] Comment:Auto resulted. Blood Venous blood specimen / Unknown 09/10/2025 4:45 AM EDT 09/10/2025 5:05 AM EDT us Anders Sotelo MD LAB BLOOD ORDERABLES Final Re sult [facility] [address] [place] [address] * (ABNORMAL) Blood gas panel, arterial (09/09/2025 5:51 PM EDT) Pathologist [facility] pH, Arterial 7.32 7.31 - 7.42 LAB HEMATOLOGY METHOD 09/09/2025 5:59 PM EDT [facility] pCO2, Arterial 44 35 - 48 mmHg LAB HEMATOLOGY METHOD 09/09/2025 5:59 PM EDT [facility] pO2, Arterial 128 >70 mmHg LAB HEMATOLOGY METHOD 09/09/2025 5:59 PM EDT [facility] SO2, Measured, Arterial 99(H) 94 - 98 % LAB HEMATOLOGY METHOD 09/09/2025 5:59 PM EDT [facility] Base Excess, Arterial -3.7(L) -2.0 - 3.0 mmol/L LAB HEMATOLOGY METHOD 09/09/2025 5:59 PM EDT [facility] Bicarbonate, Calculated, Arterial 22 22 - 26 mmol/L LAB HEMATOLOGY METHOD 09/09/2025 5:59 PM EDT [facility] Hematocrit, Whole Blood 33.8(L) 34.0 - 45.0 % LAB HEMATOLOGY METHOD 09/09/2025 5:59 PM EDT [facility] Sodium, Whole Blood 143 136 - 145 mmol/L LAB HEMATOLOGY METHOD 09/09/2025 5:59 PM EDT [facility] Potassium, Whole Blood 4.1 3.6 - 4.9 mmol/L LAB HEMATOLOGY METHOD 09/09/2025 5:59 PM EDT [facility] Chloride, Whole Blood 114(H) 97 - 107 mmol/L LAB HEMATOLOGY METHOD 09/09/2025 5:59 PM EDT [facility] Glucose, Whole Blood 114(H) 74 - 99 mg/dL LAB HEMATOLOGY METHOD 09/09/2025 5:59 PM EDT [facility] Ionized Calcium, Whole Blood 4.4(L) 4.6 - 5.1 mg/dL LAB HEMATOLOGY METHOD 09/09/2025 5:59 PM EDT [facility] Lactate, Arterial, Whole Blood 0.7 0.5 - 1.6 mmol/L LAB HEMATOLOGY METHOD 09/09/2025 5:59 PM EDT [facility] Blood Arterial blood specimen / Unknown Arterial Puncture / Unknown 09/09/2025 5:51 PM EDT 09/09/2025 5:58 PM EDT us Rose Dang APRN, DNP LAB BLOOD ORDERABLES Fi nal Result Performing Organization Address [facility]/ZIP Co de Phone Number [facility] [address] [place] [address] * (ABNORMAL) Phosphorus, Plasma (09/09/2025 5:50 PM EDT) Phosphorus, Plasma 5.6(H) 2.5 - 4.5 mg/dL 09/09/2025 6:38 PM EDT [facility] Blood Venous blood specimen / Unknown Venipuncture / Unknown 09/09/2025 5:50 PM EDT 09/09/2025 6:06 PM EDT [place] Rose Lucina Dang APRN, DNP LAB BLOOD ORDERABLES Fi nal Result [facility] [address] [place] [address] * (ABNORMAL) Magnesium, Plasma (09/09/2025 5:50 PM EDT) Magnesium, Plasma 1.5(L) 1.9 - 2.4 mg/dL 09/09/2025 6:38 PM EDT [facility] Blood Venous blood specimen / Unknown Venipuncture / Unknown 09/09/2025 5:50 PM EDT 09/09/2025 6:06 PM EDT us Rose Dang VPK TEACHER, DNP LAB BLOOD ORDERABLES Fi nal Result [facility] [address] [place] [address] * (ABNORMAL) Comprehensive metabolic panel (09/09/2025 5:50 PM EDT) Glucose, Plasma 112(H) 74 - 99 mg/dL 09/09/2025 6:38 PM EDT [facility] BUN, Plasma 8 8 - 23 mg/dL 09/09/2025 6:38 PM EDT [facility] Creatinine, Plasma 0.74 0.60 - 1.10 mg/dL 09/09/2025 6:38 PM EDT [facility] BUN/Creatinine Ratio 11 09/09/2025 6:38 PM EDT [facility] Sodium, Plasma 142 136 - 145 mmol/L 09/09/2025 6:38 PM EDT [facility] Potassium, Plasma 4.3 3.6 - 4.9 mmol/L 09/09/2025 6:38 PM EDT [facility] Chloride, Plasma 111(H) 97 - 107 mmol/L 09/09/2025 6:38 PM EDT [facility] CO2, Plasma 20(L) 22 - 29 mmol/L 09/09/2025 6:38 PM EDT [facility] Anion Gap 11 6 - 16 mmol/L 09/09/2025 6:38 PM EDT [facility] Total Calcium, Plasma 7.8(L) 8.9 - 10.2 mg/dL 09/09/2025 6:38 PM EDT [facility] Total Protein 5.8(L) 6.3 - 7.9 g/dL 09/09/2025 6:38 PM EDT [facility] Albumin, Plasma 3.5 3.5 - 5.2 g/dL 09/09/2025 6:38 PM EDT [facility] AST, Plasma 22 10 - 35 U/L 09/09/2025 6:38 PM EDT [facility] ALT, Plasma 13 10 - 35 U/L 09/09/2025 6:38 PM EDT [facility] Alkaline Phosphatase, Plasma 51 46 - 142 U/L 09/09/2025 6:38 PM EDT [facility] Total Bilirubin, Plasma 0.6 0.2 - 1.1 mg/dL 09/09/2025 6:38 PM EDT [facility] eGFRcr 85.6 mL/min/1.7 3m*2 09/09/2025 6:38 PM EDT [facility] Comment:Reported eGFRcr in m L/min/1.73m2 is based the CKD-EPI 2020 equation that does not use a race coefficient. Blood Venous blood specimen / Unknown Venipuncture / Unknown 09/09/2025 5:50 PM EDT 09/09/2025 6:06 PM EDT us Rose Dang VPK TEACHER, DNP LAB BLOOD ORDERABLES Fi nal Result [facility] [address] [place] [address] * (ABNORMAL) CBC W/O Differential (09/09/2025 5:50 PM EDT) WBC Count 5.96 3.70 - 10.30 10*3/uL LAB HEMATOLOGY METHOD 09/09/2025 6:20 PM EDT [facility] RBC Count 3.76(L) 3.90 - 5.20 10*6/uL LAB HEMATOLOGY METHOD 09/09/2025 6:20 PM EDT [facility] HGB 11.2 11.2 - 15.7 g/dL LAB HEMATOLOGY METHOD 09/09/2025 6:20 PM EDT [facility] HCT 34.8 34.0 - 45.0 % LAB HEMATOLOGY METHOD 09/09/2025 6:20 PM EDT [facility] Platelet Count 235 155 - 369 10*3/uL LAB HEMATOLOGY METHOD 09/09/2025 6:20 PM EDT [facility] MCV 93 79 - 98 fL LAB HEMATOLOGY METHOD 09/09/2025 6:20 PM EDT [facility] MCH 29.8 26.0 - 32.0 pg LAB HEMATOLOGY METHOD 09/09/2025 6:20 PM EDT [facility] MCHC 32.2 30.7 - 35.5 g/dL LAB HEMATOLOGY METHOD 09/09/2025 6:20 PM EDT [facility] RDW 14.6(H) 11.5 - 14.5 % LAB HEMATOLOGY METHOD 09/09/2025 6:20 PM EDT [facility] MPV 9.3 8.8 - 12.5 fL LAB HEMATOLOGY METHOD 09/09/2025 6:20 PM EDT [facility] nRBC 0.0 <=0.0 per 100 WBCs LAB HEMATOLOGY METHOD 09/09/2025 6:20 PM EDT [facility] Blood Venous blood specimen / Unknown Venipuncture / Unknown 09/09/2025 5:50 PM EDT 09/09/2025 6:12 PM EDT us Rose Dang APRN, DNP LAB BLOOD ORDERABLES Fi nal Result Performing Organization Address City/State/[facility] Co de Phone Number [facility] [address] [place] [address] * [place] CRITICAL CARE, E/M 30-74 MINUTES (09/09/2025 5:20 PM EDT) Narrative Rose Dang APRN, DNP - 09/09/2025 5:20 PM EDT Rose Dang APRN, DNP 09/09/2025 5:20 PM Critical Care Performed by: Rose Dang APRN, DNP Authorized by: Rose Dang APRN, DNP Critical care provider statement: Critical care time (minutes): 50 Critical care time was exclusive of: Separately billable procedures and treating other patients and teaching time Critical care was time spent personally by me on the following activities: Development of treatment plan with patient or surrogate, discussions with primary provider, evaluation of patient's response to treatment, examination of patient, obtaining history from patient or surrogate, ordering and review of radiographic studies, ordering and review of laboratory studies, ordering and performing treatments and interventions and review of old charts us Rose Dang APRN, DNP IN CLINIC/BEDSIDE ORDER TOMASA Final Result * IR Arterial Embolization (09/09/2025 3:44 PM EDT) Anatomical Region Laterality Modality X-Ray Angiograph y Impressions 09/16/2025 4:38 PM EDT 1. 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 The aneurysm neck involves callosomarginal and pericallosal arteries, with prior intracranial stent across right callosomarginal artery into to right anterior cerebral artery A1 segment 2. Successfully treated with stage II intracranial stent from the right pericallosal artery into to right anterior cerebral artery A1 segment with coil embolization with residual neck (Rodriguez Vaughn occlusion IIIa) COMMUNICATION: I communicated the findings to the patient's family and neurosurgery team Preliminary report signed by Yumi Jefferson on 09/09/2025 4:50 PM By electronically signing this report, I, the attending physician, attest that I was present for the entire procedure(s) and agree with the final edited report. Drafted by Yumi Jefferson on 09/09/2025 4:11 PM Final report signed by Anders Sotelo on 09/16/2025 4:38 PM Narrative 09/16/2025 4:38 PM EDT CLINICAL INDICATION: This patient, SUSANNAH ANDRES, is a 74 years old Female with incidental right anterior cerebral artery aneurysm. she had her first stage intracranial stent placement on 06/22/2025. She is presenting today for second stage Y stent with intracranial coil embolization. PRE-OP EVALUATION: The patient's preoperative neurological exam demonstrated the following findings: As per the chart DATE: 09/09/2025 1:58 PM EXAM: Diagnostic cerebral angiogram and Stage II (stent placement) of staged Y stent assisted coil embolization. COMPARISON: DSA 06/22/2025 ABALONE DIVER: Anders Sotelo M.D. SECONDARY APPLICATIONS DEVELOPMENT CONSULTANT: Yumi Jefferson MD LENGTH OF PROCEDURE: 57 minutes CONTRAST: 200cc FLUORO TIME: 57 minutes DOSE: 828mGy MEDICATIONS: Heparin, Omnipaque 300 ANESTHESIA: General endotracheal anesthesia was used throughout the procedure. TECHNIQUE: The procedure was explained in its entirety to patient by Dr. Sotelo prior to transport to the neuroangiography suite. This included a discussion of the risks, benefits, and alternatives to cerebral angiography. Risks discussed included stroke or transient neurologic deficit (TIA), vascular injury, distal embolization, allergic reaction, pain, bleeding, and infection. The patient gave both verbal and written consent to proceed. Timeout was done at the beginning the procedure. Strict hand hygiene protocol was observed. All personnel in the room were attired in surgical hat and mask. The operators were in surgical hat, mask, sterile gown, and sterile gloves. The access site was prepped and draped in the standard sterile fashion with 2% chlorohexadine. The right groin was prepped and draped in the usual sterile fashion. Next, the right femoral head was localized fluoroscopically and buffered 1% lidocaine was injected for local anesthesia. The common femoral artery was then accessed with 4 Polish micropuncture set, and a 4 Polish sheath advanced over a J-wire. The sheath was connected to a regulated, pressurized infusion of heparinized saline. During access, ultrasound guidance was used to confirm vessel patency, and to visualize the vascular needle entry during access. Ultrasound images were included in the final report. Using roadmap technique, the sheath was exchanged over a 145cm J-wire for a 90 cm BMX 81 guide catheter.A 5 Polish La 2 catheter was advanced over a 0.035 Angle-Dalton guidewire through the sheath and into the subclavian artery under fluoroscopic guidance. The diagnostic catheter was then advanced into the aortic arch, was reformatted, and with the aid of roadmapping, digital fluoroscopy, and careful guidewire manipulation, the right common carotid, right internal carotid arteries were catheterized. Upon each successive selective catheterization, digital subtraction angiography using the appropriate rate and volume of contrast in multiple projections was performed. DIAGNOSTIC FINDINGS: Right Common Femoral Artery Arteriogram: Contrast was injected and angiography performed in the AP through the right common femoral artery demonstrating normal course and caliber of the artery. There is no evidence of dissection or stenosis. The puncture site above the bifurcation. Right Common Carotid Artery Angiogram: Cervical View DSA images were obtained over the neck in NAYAK and lateral views. The visualized distal common carotid artery is within normal limits. The right common carotid artery bifurcates into right external carotid artery and right internal carotid artery. The cervical segment of internal carotid artery has normal course and caliber. The proximal external carotid artery and its branches demonstrate a normal course and caliber. There is no evidence of dissection or arteriovenous shunting. 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 Aneurysm measures 13.4 mm x 14.1 mm with 4.6 mm neck . The aneurysm neck involves the callosomarginal and pericallosal arteries. There is evidence of prior stent along the right callosomarginal artery and A1 segment. The stent is patent without any evidence of in stent stenosis or thrombosis. There was anterograde filling of right internal carotid artery branches including right middle cerebral artery, right posterior communicating artery and right ophthalmic artery. The anterior cerebral artery is not well visualized on this injection. No vascular malformation, mass effect or significant vasospasm was seen. No significant abnormalities were seen in the capillary phase. The venous phase demonstrated patent transverse and sigmoid sinuses. 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 Aneurysm measures 13.4 mm x 14.1 mm with 4.6 mm neck . The aneurysm neck involves the callosomarginal and pericallosal arteries. There is evidence of prior stent along the right callosomarginal artery and A1 segment. The stent is patent without any evidence of in stent stenosis or thrombosis. There was anterograde filling of right internal carotid artery branches including right middle cerebral artery, right posterior communicating artery and right ophthalmic artery. The anterior cerebral artery is not well visualized on this injection. No vascular malformation, mass effect or significant vasospasm was seen. No significant abnormalities were seen in the capillary phase. The venous phase demonstrated patent transverse and sigmoid sinuses. Endovascular surgery: Stage II (stent placement) of staged Y stent assisted coil embolization Baseline ACT was measured and IV heparin was administered as per protocol to maintain a therapeutic ACT of the procedure. Using a roadmap technique, the Glidewire and the diagnostic catheter were advanced to the right internal carotid artery for the support needed to advance the guide sheath. Then the guide sheath was advanced to the proximal segment of right internal carotid artery. The Glidewire and diagnostic catheter were removed. Using roadmap technique, a new working projection and a roadmap were obtained. At this point, a Milena 5 croatian intermediate distal access catheter, SL-10 microcatheter, and Buzz 0.014 microwire were coaxially advanced through the guide catheter into the right MCA artery for the support needed to advance the intermediate catheter. The microwire microcatheter were navigated into the right JONAH A1 segment, the microwire was navigated through the aneurysm into the right pericallosal artery. The microwire was removed. A Neuroform Weston stent measuring 3 mm x 24 mm was advanced through the microcatheter and deployed from right pericallosal artery into A1 segment of anterior cerebral artery across the neck of the aneurysm. Immediate Post Stenting Right Internal Carotid Artery Angiogram: Cranial View Contrast was injected and angiography performed in the AP and lateral working projections demonstrating anterograde flow into the right internal carotid artery its branches, there is a good deployment of the stent, patent JONAH and MCA branches, no in-stent stenosis, no evidence of thromboembolic complications. A new working projection and roadmap were obtained. The microcatheter and microwire were navigated into the aneurysm sac. The microwire was removed. A 12 mm x 45 cm target XL coil was advanced into the aneurysm. Following this, the coil was detached under radiographic surveillance, and the pusher wire was removed. Next, sequential coils were advance into the aneurysm and detached under radiographic surveillance; 12 mm x 45 cm target XL coil, 10 mm x 40 cm target XL, 10 mm x 40 cm target XL, 8 mm x 30 cm Target XL, 7 mm x 20 cm Target XL, 7 mm x 20 cm Target XL, 6 mm x 20 cm Target XL. Follow-up angiogram was obtained from right internal carotid artery, demonstrating adequate progressive occlusion of the aneurysm, good placement of the coil, no evidence of herniation into the parent vessel. There is area of thrombosis formation at the distal A1 segment of JONAH. At this time, protamine dose was calculated and started giving IV over 5 minutes. During this time, additional coil of 5 mm x 15 cm Target Ultra, 5 mm x 15 cm Target Ultra were advanced into the aneurysm and detached under radiographic guidance. Next, the pusher wire was used to navigate the microcatheter outside the aneurysm sac. with microcatheter being placed inside the JONAH A1 segment, full dose Integrilin was calculated and infused through microcatheter over 3 minutes. Follow-up angiogram was obtained from right internal carotid artery, demonstrating reduction of thrombosis burden with adequate progressive occlusion of the aneurysm, good placement of the coil, no evidence of herniation into the parent vessel. Immediate Post coil placement right Internal Carotid Artery Angiogram: Cranial View Contrast was injected and angiography performed in the AP and lateral working projections demonstrating anterograde flow into the right internal carotid artery its branches, there is a good deployment of the coils and stent, patent JONAH and MCA branches with resolution of thrombosis. 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 10 Minutes Delayed Post Stenting and Coil placement right Internal Carotid Artery Angiogram: Cranial View Contrast was injected and angiography performed in the AP and lateral working projections demonstrating anterograde flow into the right internal carotid artery its branches, there is a good deployment of the coils and stent, patent JONAH and MCA branches with resolution of thrombosis. 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 10 Minutes Delayed Post Stenting and Coil placement Right common Carotid Artery Angiogram: Cervical View Contrast was injected and angiography performed in the AP and lateral working projections demonstrating anterograde flow into the right common carotid artery, the right external carotid artery and its branches, and the right internal carotid artery and its branches. No evidence of vasospasm, dissection, or stenosis The guide catheter was withdrawn, the guide cathter was removed and the puncture site was closed using 8 croatian angioseal. Patient tolerated the procedure and she was transferred to ICU in stable condition. FINDINGS: 1. 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 The aneurysm neck involves callosomarginal and pericallosal arteries, with prior intracranial stent across right callosomarginal artery into to right anterior cerebral artery A1 segment 2. Successfully treated with stage II intracranial stent from the right pericallosal artery into to right anterior cerebral artery A1 segment with coil embolization with residual neck (Rodriguez Vaughn occlusion IIIa) Procedure Note Anders Sotelo MD - 09/16/2025 CLINICAL INDICATION: This patient, SUSANNAH ANDRES, is a 74 years oldFemale with incidental right anterior cerebral artery aneurysm. she hadher first stage intracranial stent placement on 06/22/2025. She ispresenting today for second stage Y stent with intracranial coilembolization. PRE-OP EVALUATION: The patient's preoperative neurological examdemonstrated the following findings: As per the chart DATE: 09/09/2025 1:58 PM EXAM: Diagnostic cerebral angiogram and Stage II (stent placement) ofstaged Y stent assisted coil embolization. COMPARISON: DSA 06/22/2025 ABALONE DIVER: Anders Sotelo M.D. SECONDARY APPLICATIONS DEVELOPMENT CONSULTANT: Yumi Jefferson MD LENGTH OF PROCEDURE: 57 minutes CONTRAST: 200cc FLUORO TIME: 57 minutes DOSE: 828mGy MEDICATIONS: Heparin, Omnipaque 300 ANESTHESIA: General endotracheal anesthesia was used throughout theprocedure. TECHNIQUE: The procedure was explained in its entirety to patient by Dr. Sotelo priorto transport to the neuroangiography suite. This included a discussion ofthe risks, benefits, and alternatives to cerebral angiography. Risksdiscussed included stroke or transient neurologic deficit (TIA), vascularinjury, distal embolization, allergic reaction, pain, bleeding, andinfection. The patient gave both verbal and written consent to proceed.Timeout was done at the beginning the procedure. Strict hand hygieneprotocol was observed. All personnel in the room were attired in surgicalhat and mask. The operators were in surgical hat, mask, sterile gown, andsterile gloves. The access site was prepped and draped in the standardsterile fashion with 2% chlorohexadine. The right groin was prepped and draped in the usual sterile fashion. Next,the right femoral head was localized fluoroscopically and buffered 1%lidocaine was injected for local anesthesia. The common femoral artery wasthen accessed with 4 Polish micropuncture set, and a 4 Polish sheathadvanced over a J-wire. The sheath was connected to a regulated,pressurized infusion of heparinized saline. During access, ultrasoundguidance was used to confirm vessel patency, and to visualize the vascularneedle entry during access. Ultrasound images were included in the finalreport. Using roadmap technique, the sheath was exchanged over a 145cm J-wire fora 90 cm BMX 81 guide catheter.A 5 Polish La 2 catheter was advancedover a 0.035 Angle- Dalton guidewire through the sheath and into thesubclavian artery under fluoroscopic guidance. The diagnostic catheterwas then advanced into the aortic arch, was reformatted, and with the aidof roadmapping, digital fluoroscopy, and careful guidewire manipulation,the right common carotid, right internal carotid arteries werecatheterized. Upon each successive selective catheterization, digitalsubtraction angiography using the appropriate rate and volume of contrastin multiple projections was performed. DIAGNOSTIC FINDINGS: Right Common Femoral Artery Arteriogram: Contrast was injected and angiography performed in the AP through theright common femoral artery demonstrating normal course and caliber of theartery. There is no evidence of dissection or stenosis. The puncture siteabove the bifurcation. Right Common Carotid Artery Angiogram: Cervical View DSA images were obtained over the neck in NAYAK and lateral views. Thevisualized distal common carotid artery is within normal limits. The rightcommon carotid artery bifurcates into right external carotid artery andright internal carotid artery. The cervical segment of internal carotidartery has normal course and caliber. The proximal external carotid arteryand its branches demonstrate a normal course and caliber. There is noevidence of dissection or arteriovenous shunting. 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 Aneurysm .4 mm x 14.1 mm with 4.6 mm neck . The aneurysm neck involves thecallosomarginal and pericallosal arteries. There is evidence of priorstent along the right callosomarginal artery and A1 segment. The stent ispatent without any evidence of in stent stenosis or thrombosis. There wasanterograde filling of right internal carotid artery branches includingright middle cerebral artery, right posterior communicating artery andright ophthalmic artery. The anterior cerebral artery is not wellvisualized on this injection. No vascular malformation, mass effect orsignificant vasospasm was seen. No significant abnormalities were seen inthe capillary phase. The venous phase demonstrated patent transverse andsigmoid sinuses. 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 Aneurysm joqvelpe56.4 mm x 14.1 mm with 4.6 mm neck . The aneurysm neck involves thecallosomarginal and pericallosal arteries. There is evidence of priorstent along the right callosomarginal artery and A1 segment. The stent ispatent without any evidence of in stent stenosis or thrombosis. There wasanterograde filling of right internal carotid artery branches includingright middle cerebral artery, right posterior communicating artery andright ophthalmic artery. The anterior cerebral artery is not wellvisualized on this injection. No vascular malformation, mass effect orsignificant vasospasm was seen. No significant abnormalities were seen inthe capillary phase. The venous phase demonstrated patent transverse andsigmoid sinuses. Endovascular surgery: Stage II (stent placement) of staged Y stentassisted coil embolization Baseline ACT was measured and IV heparin was administered as per protocolto maintain a therapeutic ACT of the procedure. Using a roadmap technique,the Glidewire and the diagnostic catheter were advanced to the rightinternal carotid artery for the support needed to advance the guidesheath. Then the guide sheath was advanced to the proximal segment ofright internal carotid artery. The Glidewire and diagnostic catheter wereremoved. Using roadmap technique, a new working projection and a roadmapwere obtained. At this point, a Milena 5 croatian intermediate distal accesscatheter, SL-10 microcatheter, and Buzz 0.014 microwire werecoaxially advanced through the guide catheter into the right MCA arteryfor the support needed to advance the intermediate catheter. The microwiremicrocatheter were navigated into the right JONAH A1 segment, the microwirewas navigated through the aneurysm into the right pericallosal artery. Themicrowire was removed. A Neuroform Weston stent measuring 3 mm x 24 mm was advanced through the microcatheter and deployed from rightpericallosal artery into A1 segment of anterior cerebral artery across theneck of the aneurysm. Immediate Post Stenting Right Internal Carotid Artery Angiogram: CranialView Contrast was injected and angiography performed in the AP and lateralworking projections demonstrating anterograde flow into the right internalcarotid artery its branches, there is a good deployment of the stent,patent JONAH and MCA branches, no in-stent stenosis, no evidence ofthromboembolic complications. A new working projection and roadmap were obtained. The microcatheter andmicrowire were navigated into the aneurysm sac. The microwire was removed.A 12 mm x 45 cm target XL coil was advanced into the aneurysm. Followingthis, the coil was detached under radiographic surveillance, and thepusher wire was removed. Next, sequential coils were advance into theaneurysm and detached under radiographic surveillance; 12 mm x 45 cmtarget XL coil, 10 mm x 40 cm target XL, 10 mm x 40 cm target XL, 8 mm x30 cm Target XL, 7 mm x 20 cm Target XL, 7 mm x 20 cm Target XL, 6 mm x 20cm Target XL. Follow-up angiogram was obtained from right internal carotidartery, demonstrating adequate progressive occlusion of the aneurysm, goodplacement of the coil, no evidence of herniation into the parent vessel.There is area of thrombosis formation at the distal A1 segment of JONAH. Atthis time, protamine dose was calculated and started giving IV over 5minutes. During this time, additional coil of 5 mm x 15 cm Target Ultra, 5 mm x 15 cm Target Ultra were advanced into theaneurysm and detached under radiographic guidance. Next, the pusher wirewas used to navigate the microcatheter outside the aneurysm sac. withmicrocatheter being placed inside the JONAH A1 segment, full dose Integrilinwas calculated and infused through microcatheter over 3 minutes.Follow-up angiogram was obtained from right internal carotid artery,demonstrating reduction of thrombosis burden with adequate progressiveocclusion of the aneurysm, good placement of the coil, no evidence ofherniation into the parent vessel. Immediate Post coil placement right Internal Carotid Artery Angiogram:Cranial View Contrast was injected and angiography performed in the AP and lateralworking projections demonstrating anterograde flow into the right internalcarotid artery its branches, there is a good deployment of the coils andstent, patent JONAH and MCA branches with resolution of thrombosis. Noin-stent stenosis, no evidence of thromboembolic complications, andprogressive occlusion of the aneurysm with residual neck consistent withRaymond Vaughn occlusion IIIa. 10 Minutes Delayed Post Stenting and Coil placement right Internal CarotidArtery Angiogram: Cranial View Contrast was injected and angiography performed in the AP and lateralworking projections demonstrating anterograde flow into the right internalcarotid artery its branches, there is a good deployment of the coils andstent, patent JONAH and MCA branches with resolution of thrombosis. Noin-stent stenosis, no evidence of thromboembolic complications, andprogressive occlusion of the aneurysm with residual neck consistent withRaymond Vaughn occlusion IIIa. 10 Minutes Delayed Post Stenting and Coil placement Right common CarotidArtery Angiogram: Cervical View Contrast was injected and angiography performed in the AP and lateralworking projections demonstrating anterograde flow into the right commoncarotid artery, the right external carotid artery and its branches, andthe right internal carotid artery and its branches. No evidence ofvasospasm, dissection, or stenosis The guide catheter was withdrawn, the guide cathter was removed and thepuncture site was closed using 8 croatian angioseal. Patient tolerated theprocedure and she was transferred to ICU in stable condition. FINDINGS: 1. 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 The aneurysm neck involves callosomarginal andpericallosal arteries, with prior intracranial stent across rightcallosomarginal artery into to right anterior cerebral artery A1 segment 2. Successfully treated with stage II intracranial stent from the rightpericallosal artery into to right anterior cerebral artery A1 segment withcoil embolization with residual neck (Rodriguez Vaughn occlusion IIIa) IMPRESSION: 1. 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 The aneurysm neck involves callosomarginal andpericallosal arteries, with prior intracranial stent across rightcallosomarginal artery into to right anterior cerebral artery A1 segment 2. Successfully treated with stage II intracranial stent from the rightpericallosal artery into to right anterior cerebral artery A1 segment withcoil embolization with residual neck (Rodriguez Vaughn occlusion IIIa) COMMUNICATION: I communicated the findings to the patient's family and neurosurgeryteam Preliminary report signed by Yumi Jefferson on 09/09/2025 4:50 PM By electronically signing this report, I, the attending physician, attestthat I was present for the entire procedure(s) and agree with the finaledited report. 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 Hypertension Unspecified essential hypertension Mixed hyperlipidemia Gastroesophageal reflux disease without esophagitis Esophageal reflux COPD (chronic obstructive pulmonary disease) Chronic airway obstruction, not elsewhere classified Anxiety Anxiety state, unspecified Insomnia Insomnia, unspecified Electrolyte abnormality Electrolyte and fluid disorders not elsewhere classified documented in this encounter Admitting Diagnoses Diagnosis Cerebral aneurysm Cerebral aneurysm, nonruptured documented in this encounter Administered Medications Inactive Administered Medications - up to 3 most recent administrations Medication Order MAR Action Action Date Dose Rate Site acetaminophen (Tylenol) tablet 1,000 mg 1,000 mg, Oral, Once, 1 dose, On Sun09/09/25 at 1700, Routine, Recovery (Phase I only) Given 09/09/2025 8:25 PM EDT 1,000 mg acetaminophen (Tylenol) tablet 650 mg 650 mg, Oral, Every 6 hours PRN, Starting on Sun09/09/25 at 1615, Until Sun09/10/25 at 1619, Routine, mild pain, headaches, fever Given 09/10/2025 12:18 PM EDT 650 mg Given 09/10/2025 2:50 AM EDT 650 mg aspirin chewable tablet 81 mg 81 mg, Oral, Daily, First dose (after last modification) on Aras[facility] 09/10/25 at 1215, Until Discontinued Given 09/10/2025 12:19 PM EDT 81 mg budesonide (Pulmicort) 0.5 MG/2ML nebulizer solution 0.5 mg 0.5 mg, Nebulization, 2 times daily, First dose (after last modification) on [facility] 09/10/25 at 1215, Until Discontinued, Routine clopidogrel (Plavix) tablet 75 mg 75 mg, Oral, Once, 1 dose, On Sun09/09/25 at 1345, STAT, Holding - Preprocedure Given 09/09/2025 12:47 PM EDT 75 mg clopidogrel (Plavix) tablet 75 mg 75 mg, Oral, Daily, First dose (after last modification) on Ar[facility] 09/10/25 at 1215, Until Discontinued, Routine Given 09/10/2025 12:18 PM EDT 75 mg eptifibatide (Integrilin) bolus As needed, Starting on Sun09/09/25 at 1527, Until Sun09/09/25 at 1527, Routine, Intraprocedure Given 09/09/2025 3:27 PM EDT 13.5 mg escitalopram (Lexapro) tablet 20 mg 20 mg, Oral, Daily, First dose (after last modification) on [facility] 09/10/25 at 1215, Until Discontinued, Routine Given 09/10/2025 12:21 PM EDT 20 mg fentaNYL (Sublimaze) injection 25 mcg 25 mcg, Intravenous, Every 5 min PRN, 5 doses, Starting on Sun09/09/25 at 1603, Until Sun09/09/25 at 2353, Routine, Recovery (Phase I only), DVPRS >/= 5, CPOT >/= 3, FLACC >/= 4, PAINAD >/= 4 Given 09/09/2025 11:53 PM EDT 25 mcg Given 09/09/2025 9:58 PM EDT 25 mcg fentaNYL (Sublimaze) injection 50 mcg 50 mcg, Intravenous, Every 5 min PRN, 5 doses, Starting on Sun09/09/25 at 1603, Until Sun09/09/25 at 2353, Routine, Recovery (Phase I only), DVPRS >/= 5, CPOT >/= 3, FLACC >/= 4, PAINAD >/= 4 Given 09/09/2025 9:36 PM EDT 50 mcg Given 09/09/2025 4:30 PM EDT 50 mcg Given 09/09/2025 4:21 PM EDT 50 mcg fluticasone (Flonase) nasal spray 1 spray 1 spray, Each Nostril, Daily, First dose (after last modification) on Sun09/10/25 at 1215, Until Discontinued, Routine gabapentin (Neurontin) capsule 300 mg 300 mg, Oral, 3 times daily, First dose (after last modification) on Sun09/10/25 at 1315, Until Discontinued, Routine Given 09/10/2025 1:09 PM EDT 300 mg hydrALAZINE (Apresoline) injection 10 mg 10 mg, Intravenous, Every 1 hour PRN, Starting on Sun09/09/25 at 1612, Until Sun09/10/25 at 1619, Routine, high blood pressure, SBP >140, second-line hydrALAZINE (Apresoline) injection 20 mg 20 mg, Intravenous, Every 1 hour PRN, Starting on Sun09/09/25 at 1612, Until Sun09/10/25 at 1619, Routine, high blood pressure, SBP >140, second-line iohexol (OMNIPaque) 300 MG/ML injection - Pyxis Override Pull 1 dose, Starting on Sun09/09/25 at 1230, Until Sun09/09/25 at 1544 Given 09/09/2025 3:44 PM EDT 200 mL ipratropium-albuterol (Duo-Neb) 0.5-2.5 mg/3 mL nebulizer solution 3 mL 3 mL, Nebulization, Every 4 hours PRN, Starting on Sun09/09/25 at 1640, Until Sun09/10/25 at 1619, Routine, wheezing, shortness of breath Given 09/09/2025 10:28 PM EDT 3 mL labetalol (Normodyne,Trandate) injection 10 mg 10 mg, Intravenous, Every 1 hour PRN, Starting on Sun09/09/25 at 1613, Until Araseli 09/10/25 at 1619, Routine, high blood pressure, SBP >140, hold for HR <60, first-line labetalol (Normodyne,Trandate) injection 20 mg 20 mg, Intravenous, Every 1 hour PRN, Starting on Sun09/09/25 at 1613, Until Araseli 09/10/25 at 1619, Routine, high blood pressure, SBP >140, hold for HR <60, first-line magnesium sulfate IVPB 4 g 4 g, Intravenous, Once, 1 dose, On Sun09/09/25 at 2115, Routine New Bag 09/09/2025 9:40 PM EDT 4 g 2 5 mL/hr mometasone-formoterol (Dulera 200) 200-5 MCG/ACT inhaler 2 puff 2 puff, Inhalation, 2 times daily, First dose (after last modification) on Araseli 09/10/25 at 1215, Until Discontinued montelukast (Singulair) tablet 10 mg 10 mg, Oral, Nightly, First dose (after last modification) on Aras[facility] 09/10/25 at 1215, Until Discontinued, Routine Given 09/10/2025 12:23 PM EDT 10 mg oxyCODONE (Roxicodone) immediate release tablet 10 mg 10 mg, Oral, Every 1 hour PRN, 2 doses, Starting on Sun09/09/25 at 1603, Until Sun09/10/25 at 0022, Routine, Recovery (Phase I only), DVPRS >/= 5, CPOT >/= 3, FLACC >/= 4, PAINAD >/= 4 Given 09/09/2025 8:39 PM EDT 10 mg oxyCODONE (Roxicodone) immediate release tablet 10 mg 10 mg, Oral, Every 6 hours PRN, Starting on Sun09/10/25 at 0022, Until Sun09/10/25 at 1619, Routine, severe pain Given 09/10/2025 2:50 AM EDT 10 mg oxyCODONE (Roxicodone) immediate release tablet 5 mg 5 mg, Oral, Every 6 hours PRN, Starting on Sun09/10/25 at 0022, Until Sun09/10/25 at 1619, Routine, moderate pain Given 09/10/2025 12:18 PM EDT 5 mg pantoprazole (Protonix) EC tablet 40 mg 40 mg, Oral, Daily before breakfast, First dose (after last modification) on Sun09/10/25 at 1215, Until Discontinued, Routine Given 09/10/2025 12:23 PM EDT 40 mg sodium chloride 0.9 % flush 10 mL 10 mL, Intravenous, Every 12 hours, First dose on Sun09/09/25 at 0930, Until Discontinued, Routine, Holding - Preprocedure Given 09/10/2025 12:23 PM EDT 10 mL Given 09/09/2025 10:59 PM EDT 10 mL Tiotropium [place] Monohydrate (Spiriva Respimat) 2.5 MCG/ACT inhaler 2 puff 2 puff, Inhalation, Daily, First dose (after last modification) on Sun09/11/25 at 0900, Until Discontinued traZODone (Desyrel) tablet 50 mg 50 mg, Oral, Nightly, First dose (after last modification) on Sun09/10/25 at 2100, Until Discontinued, Routine verapamil (Isoptin) injection As needed, Starting on Sun09/09/25 at 1416, Until Sun09/09/25 at 1416, Routine, Intraprocedure Given 09/09/2025 2:16 PM EDT 10 mg documented in this encounter Active and Recently Administered Medications Times are shown in EDT. Scheduled Medication Order 09/08/2025 09/09/2025 09/10/2025 acetaminophen (Tylenol) tablet 1,000 mg (COMPLETED) 1,000 mg, Oral, Once, 1 dose, On Sun09/09/25 at 1700, Routine, Recovery (Phase I only) 2024 (Given - Provider: Awa Mejia) aspirin chewable tablet 81 mg 81 mg, Oral, Daily, First dose (after last modification) on Sun09/10/25 at 1215, Until Discontinued 1219 (Given - Provid er: Vane Jalloh RN) budesonide (Pulmicort) 0.5 MG/2ML nebulizer solution 0.5 mg 0.5 mg, Nebulization, 2 times daily, First dose (after last modification) on Sun09/10/25 at 1215, Until Discontinued, Routine 1221 (Not Given - Provider: Vane Jalloh RN - Reason: Medication not available) clopidogrel (Plavix) tablet 75 mg (COMPLETED) 75 mg, Oral, Once, 1 dose, On Sun09/09/25 at 1345, STAT, Holding - Preprocedure 1247 (Given - Provider: Sean Barnes) clopidogrel (Plavix) tablet 75 mg 75 mg, Oral, Daily, First dose (after last modification) on Sun09/10/25 at 1215, Until Discontinued, Routine 1218 (Given - Provid er: Vane Jalloh RN) escitalopram (Lexapro) tablet 20 mg 20 mg, Oral, Daily, First dose (after last modification) on Sun09/10/25 at 1215, Until Discontinued, Routine 1221 (Given - Provid er: Vane Jalloh RN) fluticasone (Flonase) nasal spray 1 spray 1 spray, Each Nostril, Daily, First dose (after last modification) on Sun09/10/25 at 1215, Until Discontinued, Routine 1222 (Not Given - Provider: Vane Jalloh RN - Reason: Medication not available) gabapentin (Neurontin) capsule 300 mg 300 mg, Oral, 3 times daily, First dose (after last modification) on Sun09/10/25 at 1315, Until Discontinued, Routine 1309 (Given - Provid er: Vane Jalloh RN) magnesium sulfate IVPB 4 g (COMPLETED) 4 g, Intravenous, Once, 1 dose, On Sun09/09/25 at 2115, Routine 2140 (New Bag - Provider: Awa Mejia) mometasone-formoterol (Dulera 200) 200-5 MCG/ACT inhaler 2 puff(Linked Group 1) 2 puff, Inhalation, 2 times daily, First dose (after last modification) on Sun09/10/25 at 1215, Until Discontinued 1222 (Not Given - Provider: Vane Jalloh RN - Reason: Medication not available) montelukast (Singulair) tablet 10 mg 10 mg, Oral, Nightly, First dose (after last modification) on Sun09/10/25 at 1215, Until Discontinued, Routine 1223 (Given - Provid er: Vane Jalloh RN) pantoprazole (Protonix) EC tablet 40 mg 40 mg, Oral, Daily before breakfast, First dose (after last modification) on Sun09/10/25 at 1215, Until Discontinued, Routine 1223 (Given - Provid er: Vane Jalloh RN) sodium chloride 0.9 % flush 10 mL (CANCELED)(Linked Group 2) 10 mL, Intravenous, Every 12 hours, First dose on Sun09/09/25 at 0930, Until Discontinued, Routine, Holding - Preprocedure 0930 (Due)2259 (Given - Provider: Awa Mejia) 1223 (Given - Provider: Vane Jalloh RN) Tiotropium [place] Monohydrate (Spiriva Respimat) 2.5 MCG/ACT inhaler 2 puff(Linked Group 1) 2 puff, Inhalation, Daily, First dose (after last modification) on Sun09/11/25 at 0900, Until Discontinued traZODone (Desyrel) tablet 50 mg 50 mg, Oral, Nightly, First dose (after last modification) on Sun09/10/25 at 2100, Until Discontinued, Routine PRN Medication Order 09/08/2025 09/09/2025 09/10/2025 acetaminophen (Tylenol) tablet 650 mg 650 mg, Oral, Every 6 hours PRN, Starting on Sun09/09/25 at 1615, Until [facility] 09/10/25 at 1619, Routine, mild pain, headaches, fever 0250 (Given - Provid er: Awa Mejia)1218 (Given - Provider: Vane Jalloh RN) eptifibatide (Integrilin) bolus (COMPLETED) As needed, Starting on Sun09/09/25 at 1527, Until Sun09/09/25 at 1527, Routine, Intraprocedure 1527 (Given - Provider: Yumi Jefferson MD) fentaNYL (Sublimaze) injection 25 mcg (COMPLETED)(Linked Group 3) 25 mcg, Intravenous, Every 5 min PRN, 5 doses, Starting on Sun09/09/25 at 1603, Until Sun09/09/25 at 2353, Routine, Recovery (Phase I only), DVPRS >/= 5, CPOT >/= 3, FLACC >/= 4, PAINAD >/= 4 1621 (See Alternative - Provider: Sean Barnes)1630 (See Alternative - Provider: Sean Barnes)2135 (See Alternative - Provider: Awa Mejia)2157 (Given - Provider: Awa Mejia)2352 (Given - Provider: Awa Mejia) fentaNYL (Sublimaze) injection 50 mcg (COMPLETED)(Linked Group 3) 50 mcg, Intravenous, Every 5 min PRN, 5 doses, Starting on Sun09/09/25 at 1603, Until Sun09/09/25 at 2353, Routine, Recovery (Phase I only), DVPRS >/= 5, CPOT >/= 3, FLACC >/= 4, PAINAD >/= 4 1621 (Given - Provider: Sean Barnes)1630 (Given - Provider: Sean Barnes)2135 (Given - Provider: Awa Mejia)2157 (See Alternative - Provider: Awa Mejia)2352 (See Alternative - Provider: Awa Mejia) hydrALAZINE (Apresoline) injection 10 mg(Linked Group 4) 10 mg, Intravenous, Every 1 hour PRN, Starting on Sun09/09/25 at 1612, Until [facility]as[facility] 09/10/25 at 1619, Routine, high blood pressure, SBP >140, second-line hydrALAZINE (Apresoline) injection 20 mg(Linked Group 4) 20 mg, Intravenous, Every 1 hour PRN, Starting on 09/09/25 at 1612, Until Araseli 09/10/25 at 1619, Routine, high blood pressure, SBP >140, second-line ipratropium-albuterol (Duo-Neb) 0.5-2.5 mg/3 mL nebulizer solution 3 mL 3 mL, Nebulization, Every 4 hours PRN, Starting on Sun09/09/25 at 1640, Until Sun09/10/25 at 1619, Routine, wheezing, shortness of breath 2228 (Given - Provider: Gerald Gatica) 0551 (Canceled Entry - Provider: Automatic Discharge Provider - Comment: Automatically canceled at discontinue of medication order) labetalol (Normodyne,Trandate) injection 10 mg(Linked Group 5) 10 mg, Intravenous, Every 1 hour PRN, Starting on Sun09/09/25 at 1613, Until Sun09/10/25 at 1619, Routine, high blood pressure, SBP >140, hold for HR <60, first-line labetalol (Normodyne,Trandate) injection 20 mg(Linked Group 5) 20 mg, Intravenous, Every 1 hour PRN, Starting on Sun09/09/25 at 1613, Until Sun09/10/25 at 1619, Routine, high blood pressure, SBP >140, hold for HR <60, first-line oxyCODONE (Roxicodone) immediate release tablet 10 mg (CANCELED)(Linked Group 6) 10 mg, Oral, Every 1 hour PRN, 2 doses, Starting on Sun09/09/25 at 1603, Until Sun09/10/25 at 0022, Routine, Recovery (Phase I only), DVPRS >/= 5, CPOT >/= 3, FLACC >/= 4, PAINAD >/= 4 2038 (Given - Provider: Awa Mejia) 0135 (Return to [facility] - Provider: Awa Mejia) oxyCODONE (Roxicodone) immediate release tablet 10 mg(Linked Group 7) 10 mg, Oral, Every 6 hours PRN, Starting on Sun09/10/25 at 0022, Until Sun09/10/25 at 1619, Routine, severe pain 0250 (Given - Provid er: Awa Mejia)1218 (See Alternative - Provider: Vane Jalloh RN) oxyCODONE (Roxicodone) immediate release tablet 5 mg(Linked Group 7) 5 mg, Oral, Every 6 hours PRN, Starting on Araseli 09/10/25 at 0022, Until Araseli 09/10/25 at 1619, Routine, moderate pain 0250 (See Alternativ e - Provider: Awa Mejia)1218 (Given - Provider: Vane Jalloh RN) verapamil (Isoptin) injection (COMPLETED) As needed, Starting on Sun09/09/25 at 1416, Until Sun09/09/25 at 1416, Routine, Intraprocedure 1416 (Given - Provider: Yumi Jefferson MD) No Frequency Medication Order 09/08/2025 09/09/2025 09/10/2025 iohexol (OMNIPaque) 300 MG/ML injection - Pyxis Override Pull (COMPLETED) 1 dose, Starting on Sun09/09/25 at 1230, Until Sun09/09/25 at 1544 1544 (Given - Provider: Solomon Guardado) Linked Groups Order Group 1: Tiotropium [place] Monohydrate (Spiriva Respimat) 2.5 MCG/ACT inhaler 2 puffJump to med 2 puff, Inhalation, Daily, First dose (after last modification) on Sun09/11/25 at 0900, Until Discontinued And mometasone-formoterol (Dulera 200) 200-5 MCG/ACT inhaler 2 puffJump to med 2 puff, Inhalation, 2 times daily, First dose (after last modification) on Araseli 09/10/25 at 1215, Until Discontinued Group 2: Insert peripheral IV (CANCELED) Once, On Sun09/09/25 at 0834, For 1 occurrence, Call PICC Team for US guided IV if unable to obtain PIV., Holding - Preprocedure And Saline lock IV (CANCELED) Once, On Sun09/09/25 at 0834, For 1 occurrence, Holding - Preprocedure And sodium chloride 0.9 % flush 10 mL (CANCELED)Jump to med 10 mL, Intravenous, Every 12 hours, First dose on Sun09/09/25 at 0930, Until Discontinued, Routine, Holding - Preprocedure And sodium chloride 0.9 % flush 10 mL (CANCELED) 10 mL, Intravenous, As needed, Starting on Sun09/09/25 at 0833, Until Araseli 09/10/25 at 1259, Routine, Holding - Preprocedure, line care Group 3: fentaNYL (Sublimaze) injection 25 mcg (COMPLETED)Jump to med 25 mcg, Intravenous, Every 5 min PRN, 5 doses, Starting on Sun09/09/25 at 1603, Until Sun09/09/25 at 2353, Routine, Recovery (Phase I only), DVPRS >/= 5, CPOT >/= 3, FLACC >/= 4, PAINAD >/= 4 Or fentaNYL (Sublimaze) injection 50 mcg (COMPLETED)Jump to med 50 mcg, Intravenous, Every 5 min PRN, 5 doses, Starting on Sun09/09/25 at 1603, Until Sun09/09/25 at 2353, Routine, Recovery (Phase I only), DVPRS >/= 5, CPOT >/= 3, FLACC >/= 4, PAINAD >/= 4 Group 4: hydrALAZINE (Apresoline) injection 10 mgJump to med 10 mg, Intravenous, Every 1 hour PRN, Starting on Sun09/09/25 at 1612, Until Araseli 09/10/25 at 1619, Routine, high blood pressure, SBP >140, second-line Or hydrALAZINE (Apresoline) injection 20 mgJump to med 20 mg, Intravenous, Every 1 hour PRN, Starting on Sun09/09/25 at 1612, Until Araseli 09/10/25 at 1619, Routine, high blood pressure, SBP >140, second-line Group 5: labetalol (Normodyne,Trandate) injection 10 mgJump to med 10 mg, Intravenous, Every 1 hour PRN, Starting on Sun09/09/25 at 1613, Until Araseli 09/10/25 at 1619, Routine, high blood pressure, SBP >140, hold for HR <60, first-line Or labetalol (Normodyne,Trandate) injection 20 mgJump to med 20 mg, Intravenous, Every 1 hour PRN, Starting on Sun09/09/25 at 1613, Until Araseli 09/10/25 at 1619, Routine, high blood pressure, SBP >140, hold for HR <60, first-line Group 6: oxyCODONE (Roxicodone) immediate release tablet 5 mg (CANCELED) 5 mg, Oral, Every 1 hour PRN, 2 doses, Starting on Sun09/09/25 at 1603, Until Araseli 09/10/25 at 0022, Routine, Recovery (Phase I only), DVPRS >/= 5, CPOT >/= 3, FLACC >/= 4, PAINAD >/= 4 Or oxyCODONE (Roxicodone) immediate release tablet 10 mg (CANCELED)Jump to med 10 mg, Oral, Every 1 hour PRN, 2 doses, Starting on Sun09/09/25 at 1603, Until Araseli 09/10/25 at 0022, Routine, Recovery (Phase I only), DVPRS >/= 5, CPOT >/= 3, FLACC >/= 4, PAINAD >/= 4 Group 7: oxyCODONE (Roxicodone) immediate release tablet 5 mgJump to med 5 mg, Oral, Every 6 hours PRN, Starting on Sun09/10/25 at 0022, Until Araseli 09/10/25 at 1619, Routine, moderate pain Or oxyCODONE (Roxicodone) immediate release tablet 10 mgJump to med 10 mg, Oral, Every 6 hours PRN, Starting on Sun09/10/25 at 0022, Until Araseli 09/10/25 at 1619, Routine, severe pain documented in this encounter Additional Health Concerns Assessment Noted Time A fall risk assessment has been complete d for the patient 08/07/2025 2:23 PM EDT A Body Mass Index follow-up plan has been documented for the patient 08/07/2025 4:31 PM EDT documented as of this encounter Care Teams Medical Billing Specialist Relationship Specialty Start Date End Date Michael Baez MD [address] [place] [id number] PCP - General 04/08/21 Acacia Scott APRN [address] [place] [address] Nurse Practitioner Cardiology 03/27/22 Virgilio Nguyễn MD [address] [place] [id number] Referring Physician 10/07/24 documented as of this encounter
[2025-10-02] MEDS: DENOSUMAB 60 MG/ML SYRINGE SUBCUT (12:59)
--- OUTSIDE RECORDS SUMMARY | 2025-10-02 12:59 | XMS_ITS | Encounter Summary ---
Author Organization [employer] ([place], [place], [place], [place], [place]) Address [address] [place] [address] Care Team Providers Care Ticket Marker Name Role Phone Unavailable Primary Care Provider Unavailabl e Encounter Details Date Type Department Care Team (Late st Contact Info) Description 02/18/2019 Transcribed Document [facility] Family Medicine [facility] [place] [address] ProviderCarlitos MD [address] [place], [place] [id number] Social History Tobacco Use Types Packs/Day Years Used Date Smoking Tobacco: Never Assessed Comments Unknown Sex and Gender Information Value Date Recorded Sex Assigned at Not on file Legal Sex Female 4:37 PM CDT Gender Identity Not on file Sexual Orientation Not on file documented as of this encounter Miscellaneous Notes * Cerner Conversion Note - Historical ProviderMD - 02/18/2019 6:56 PM CDT DATE OF [...]
[2025-10-02 13:00] VITALS: BP 98/61; PULSE 65; RESP 18; O2SAT 95
--- OUTSIDE RECORDS SUMMARY | 2025-10-02 13:00 | XMS_ITS | Encounter Summary ---
Author Organization [facility] Address [address] [place] [address] Care Team Providers Care Sales Consultant Name Role Phone Michael Baez MD Primary Care Provider + [phone] Acacia Scott APRN Unavailable [phone] Virgilio Nguyễn MD Unavailable +-[phone] Encounter Details Date Type Department Care Team (Latest Contact Info) Description 09/09/2025 Travel Social History Tobacco Use Types Packs/Day [...] in the past 12 m [facility], were you homeless or living in a [...] drink first t pippa in the morning (EYE-CONCRETE GRINDER OPERATOR) to steady your nerves or to [...] Risk Indicated 09/09/2025 8:00 PM EDT Awa Tse, RN * Question Answer Date of Assessment Author 1. Wish to be (Past 1 Month) No 09/09/2025 8:00 PM EDT Marixa Mejia, RN 2. Non-Specific Active Suicidal Thoughts (Past 1 Month) No 09/09/2025 8:00 PM EDT Marixa Mejia, RN 6. Suicidal Behavior (Lifetime) No 09/09/2025 8:00 PM EDT Marixa Mejia, RN documented as of this encounter Plan of Treatment Upcoming Encounters Date Type Department Care Team (Late st Contact Info) Description 10/20/2025 1:50 PM EST Appointment [facility] Radiology [address] [place] [phone] 10/20/2025 4:00 PM EST Office [facility] [place] [facility] [address] [place] [address] David Gallego MD [address] [place] [phone] documented as of this encounter Visit Diagnoses Not on filedocumented in this encounter Additional Health Concerns Assessment Noted Time A fall risk assessment has been complete d for the patient 08/07/2025 2:23 PM EDT A Body Mass Index follow-up plan has been documented for the patient 08/07/2025 4:31 PM EDT documented as of this encounter Care Teams Sales Consultant Relationship Specialty Start Date End Date Michael Baez MD [address] [place] [address] PCP - General 04/08/21 Acacia Scott APRN [address] [place] [phone] Nurse Practitioner Cardiology 03/27/22 Virgilio Nguyễn MD [address] [place] [address] Referring Physician 10/07/24 documented as of this encounter
--- OUTSIDE RECORDS SUMMARY | 2025-10-02 13:00 | XMS_ITS | Referral Summary ---
Author Organization [employer] ([place], [place], [place], [place], [place]) Address [address] [place] [address] Care Team Providers Care Evaporator Operator Name Role Phone Unavailable Primary Care [...]
--- OUTSIDE RECORDS SUMMARY | 2025-10-02 13:00 | XMS_ITS | Clinical Summary ---
Author Organization [facility] Address [address] [address] Phone Care Team Providers Care Network Diagnostic Support Specialist Name Role Phone Unavailable Primary Care [...] FIT 1996 Sigmoidoscopy 1996 Virtual Colonography 1996 RSV or 60+ (1 - Ris k 50-74 years 1-dose series) 2001 Zoster (1 of 2) 2001 Bone Density Screening 2016 COVID-19 Vaccine (1 - 2024-2 6 season) 2025 Influenza Vaccine (#1) 2025 08/22/2018 Hepatitis B Vaccine Aged Out No longe r eligible based on patient's age to complete this topic Meningococcal B Vaccine Aged Out No l onger eligible based on patient's age to complete this topic Insurance [facility] [place] [address] MEDICARE [place] PART A AND B
--- OUTSIDE RECORDS SUMMARY | 2025-10-02 13:00 | XMS_ITS | Encounter Summary ---
Author Organization [facility] Address [address] [place] [address] Care Team Providers Care Ladle Liner Helper Name Role Phone Michael Baez MD Primary Care Provider + [phone] Acacia Scott APRN Unavailable [phone] Virgilio Nguyễn MD Unavailable +[phone] Encounter Details Date Type Department Care Team (Latest Contact Info) Description 09/08/2025 Travel Social History Tobacco Use Types Packs/Day [...] any time in the past 12 m [facility], were you homeless or living in [...] drink first t pippa in the morning (EYE-FRUIT CHECKER) to steady your nerves or to get [...] EST Appointment [facility] [address] [place] [address] 10/20/2025 4:00 PM EST Office [facility] [place] [facility] [address] [place] [address] David Gallego MD [address] [place] [address] documented as of this encounter Visit Diagnoses Not on filedocumented in this encounter Additional Health Concerns Assessment Noted Time A fall risk assessment has been complete d for the patient 08/07/2025 2:23 PM EDT A Body Mass Index follow-up plan has been documented for the patient 08/07/2025 4:31 PM EDT documented as of this encounter Care Teams Ladle Liner Helper Relationship Specialty Start Date End Date Michael Baez MD [address] [place] [id number] PCP - General 04/08/21 Acacia Scott APRN [address] [place] [address] Nurse Practitioner Cardiology 03/27/22 Virgilio Nguyễn MD [address] [place] [address] Referring Physician 10/07/24 documented as of this encounter
--- OUTSIDE RECORDS SUMMARY | 2025-10-02 13:00 | XMS_ITS | Encounter Summary ---
Author Organization [facility] Address [address] [place] [address] Care Team Providers Care Ruby Developer Name Role Phone Michael Baez MD Primary Care Provider + [phone] Acacia Scott APRN Unavailable [phone] Virgilio Nguyễn MD Unavailable +[phone] Encounter Details Date Type Department Care Team (Latest Contact Info) Description 09/10/2025 Travel Social History Tobacco Use Types Packs/Day [...] any time in the past 12 m [facility], were you homeless or living in a chcf (including now)? 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-DATA GOVERNANCE ANALYST) to steady your nerves or to [...] EST Appointment [facility]iology [address] [place] [address] 10/20/2025 4:00 PM EST Office [facility] [place] [facility] [address], [address] [place] [address] David Gallego MD [address] [place] [address] documented as of this encounter Visit Diagnoses Not on filedocumented in this encounter Additional Health Concerns Assessment Noted Time A fall risk assessment has been complete d for the patient 08/07/2025 2:23 PM EDT A Body Mass Index follow-up plan has been documented for the patient 08/07/2025 4:31 PM EDT documented as of this encounter Care Teams Ruby Developer Relationship Specialty Start Date End Date Michael Baez MD [address] [place] [id number] PCP - General 04/08/21 Acacia Scott APRN [address] [place] [address] Nurse Practitioner Cardiology 03/27/22 Virgilio Nguyễn MD [address] [place] [address] [place] [address] Referring Physician 10/07/24 documented as of this encounter
--- OUTSIDE RECORDS SUMMARY | 2025-10-02 13:00 | XMS_ITS | Encounter Summary ---
Author Organization [employer] ([place], [place], [place], [place], [place]) Address [address] [place] [address] Care Team Providers Care Credit Balance Specialist Name Role Phone Unavailable Primary Care Provider Unavailabl e Encounter Details Date Type Department Care Team (Late st Contact Info) Description 07/07/2019 Transcribed Document [facility] Family Medicine [place] [address] ProviderCarlitos MD [address] [place], [place] [id number] Social History Tobacco Use Types Packs/Day Years Used Date Smoking Tobacco: Never Assessed Comments Unknown Sex and Gender Information Value Date Recorded Sex Assigned at Not on file Legal Sex Female 4:37 PM CDT Gender Identity Not on file Sexual Orientation Not on file documented as of this encounter Miscellaneous Notes * Cerner Conversion Note - Carlitos ProviderMD - 07/07/2019 1:32 PM CDT DATE OF [...] no sleepiness and scores 0/24 in the [place] Sleepiness Scale. She does have very mild [...]
--- OUTSIDE RECORDS SUMMARY | 2025-10-02 13:00 | XMS_ITS | Encounter Summary ---
Author Organization [employer] ([place], [place], [place], [place], [place]) Address [address] [place] [address] Care Team Providers Care Regulatory Compliance Officer Name Role Phone Unavailable Primary Care Provider Unavailabl e Encounter Details Date Type Department Care Team (Late st Contact Info) Description 05/06/2019 Transcribed Document [facility] Family Medicine [facility] [place] [address] ProviderCarlitos MD [address] [place] [id number] Social History Tobacco Use Types Packs/Day Years Used Date Smoking Tobacco: Never Assessed Comments Unknown Sex and Gender Information Value Date Recorded Sex Assigned at Not on file Legal Sex Female 4:37 PM CDT Gender Identity Not on file Sexual Orientation Not on file documented as of this encounter Miscellaneous Notes * Cerner Conversion Note - Carlitos ProviderMD - 05/06/2019 4:34 PM CDT DATE OF [...] no sleepiness and scores 0/24 in the [place] Sleepiness Scale. OTHER MEDICAL PROBLEMS: Include atrial fibrillation for which she is scheduled to see an rat breeder in the next several days. She has [...] Rafael Virk M.D. CC2: Kalpana Mcguire APRN documented in this encounter Plan of Treatment Not on file documented as of this encounter Visit Diagnoses Not on filedocumented in this encounter
--- OUTSIDE RECORDS SUMMARY | 2025-10-02 13:00 | XMS_ITS | Encounter Summary ---
Author Organization [employer] ([place], [place], [place], [place], [place]) Address [address] [place] [address] Care Team Providers Care Stunt Man Name Role Phone Unavailable Primary Care Provider Unavailabl e Encounter Details Date Type Department Care Team (Late st Contact Info) Description 03/17/2019 Transcribed Document [facility] Family Medicine [address] [place] [address] ProviderCarlitos MD [address] [place] [address] Social History Tobacco Use Types Packs/Day Years Used Date Smoking Tobacco: Never Assessed Comments Unknown Sex and Gender Information Value Date Recorded Sex Assigned at Not on file Legal Sex Female 4:37 PM CDT Gender Identity Not on file Sexual Orientation Not on file documented as of this encounter Miscellaneous Notes * Cerner Conversion Note - Carlitos ProviderMD - 03/17/2019 6:15 PM CDT DATE OF [...] CC2: Dr. Marily Lynn Electronically signed by [facility] Conversion Etcher [employer] Cerner at 03/16/2023 2:48 PM CDT documented in this encounter Plan of Treatment Not on file documented as of this encounter Visit Diagnoses Not on filedocumented in this encounter
--- OUTSIDE RECORDS SUMMARY | 2025-10-02 13:00 | XMS_ITS | Encounter Summary ---
Author Organization [facility] Address [address] [place] [address] Care Team Providers Care Furniture Designer Name Role Phone Michael Baez MD Primary Care Provider [phone] Acacia Scott APRN Unavailable [phone] Virgilio Nguyễn MD Unavailable +[phone] Reason for Referral * Imaging (Routine) - Pending Review Specialty Diagnoses / Procedures Referred By Terrence prasad Referred To Contact Radiology Diagnoses Cerebral aneurysm Procedures MR Angio Head w IV Contrast Prachi Hodgson PA [address] [facility] [address] [place] [address] Phone: tel: fax: Referral ID Status Reason Start Date Expiration Date V isits Requested Visits Authorized [id number] Pending Review 09/10/2025 03/12/2027 1 1 Encounter Details Date Type Department Care Team (Late st Contact Info) Description 09/10/2025 Orders Only [place] [facility] [address], [address] [place] [address] Prachi Hodgson PA [address] [place] [address] Cerebral aneurysm (Primary Dx) Social History Tobacco Use Types [...] any time in the past 12 m [facility], were you homeless or living in a skilled nursing (including now)? 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-STRATEGIC PLANNING SPECIALIST) to 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 0 05/03/2025 CAGE Questionnaire Score 0 025 Utilities Answer Date Recorded In the past 12 months has e [employer], gas, oil, or water company threatened to [...] EST Appointment [facility] [address] [place] [address] 10/20/2025 4:00 PM EST Office [facility] [place] [facility] [address], [address] [place] [address] David Gallego MD [address] [place] [address] Scheduled Orders Name Type Priority Associated Diagnoses Orde r Schedule MR Angio Head w IV Contrast Imaging Routine Cerebral aneurysm Expected: 10/11/2025 (Approximate), Expires: 03/14/2027 documented as of this encounter Visit Diagnoses Diagnosis Cerebral aneurysm- Primary Cerebral aneurysm, nonruptured documented in this encounter Additional Health Concerns Assessment Noted Time A fall risk assessment has been complete d for the patient 08/07/2025 2:23 PM EDT A Body Mass Index follow-up plan has been documented for the patient 08/07/2025 4:31 PM EDT documented as of this encounter Care Teams Furniture Designer Relationship Specialty Start Date End Date Michael Baez MD [address] [place] [address] PCP - General 04/08/21 Acacia Scott APRN [address] [place] [phone] Nurse Practitioner Cardiology 03/27/22 Virgilio Nguyễn MD [address] [facility] [address] [place] [address] Referring Physician 10/07/24 documented as of this encounter
--- OUTSIDE RECORDS SUMMARY | 2025-10-02 13:00 | XMS_ITS | Encounter Summary ---
Author Organization [facility] Address [address] [place] [address] Care Team Providers Care Steward/Stewardess Second Class Name Role Phone Michael Baez MD Primary Care Provider + [phone] Acacia Scott APRN Unavailable [phone] Virgilio Nguyễn MD Unavailable [phone] Encounter Details Date Type Department Care Team [...] time in the past 12 m [facility], were you homeless or living in a retirement (including now)? 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-FARM LABORER) to steady your nerves or to get [...] EST Appointment [facility] Radiology [address] [place] [address] 10/20/2025 4:00 PM EST Office Visit [place] [facility] [address], [address] [place] [address] David Gallego MD [address] [place] [address] documented as of this encounter Visit Diagnoses Not on filedocumented in this encounter Additional Health Concerns Assessment Noted Time A fall risk assessment has been complete d for the patient 08/07/2025 2:23 PM EDT A Body Mass Index follow-up plan has been documented for the patient 08/07/2025 4:31 PM EDT documented as of this encounter Care Teams Steward/Stewardess Second Class Relationship Specialty Start Date End Date Michael Baez MD [address] [place] [id number] PCP - General 04/08/21 Acacia Scott APRN [address] [place] [address] Nurse Practitioner Cardiology 03/27/22 Virgilio Nguyễn MD [address] [place] [address] Referring Physician 10/07/24 documented as of this encounter
--- OUTSIDE RECORDS SUMMARY | 2025-10-02 13:00 | XMS_ITS | Clinical Summary ---
Author Organization [facility] Address [address] [place] [address] Care Team Providers Care Psychiatric Rn Name Role Phone Michael Baez MD Primary Care Provider [phone] Allergies Active Allergy Reactions Criticality Noted Date [...] Date Last Done Comments DXA SCAN 1951 COVID-19 Vaccine (#1) 1956 TDAP/TD VACCINES (1 - Tdap) 1970 MAMMOGRAM [...] 06/26/2025 12/11/2019, , 08/22/2018, Additional history exists LUNG CANCER SCREENING Discontinued 08/07/2022 HEPATITIS C SCREENING Completed 05/01/2025 Insurance Member Subscriber Plan / Payer (Ef fective 2004-Present) Name:Supriya Andres Member ID:[id number] Relation to Subscriber:Self Name:Supriya Andres Subscriber ID:[id number] Payer ID:[id number] Group ID:Not on file Type:Not on file Address: [address] [place] [id number] [facility] MEDICARE REPLACEMENT Care Teams Psychiatric Rn Relationship Specialty Start Date End Date Michael Baez MD [address] [facility] [address] [place] [address] PCP - General Adolescent Medicine 04/25/23
--- OUTSIDE RECORDS SUMMARY | 2025-10-02 13:00 | XMS_ITS | Clinical Summary ---
Author Organization [employer] ([place], [place], [place], [place], [place]) Address [address] [place] [address] Care Team Providers Care Treasury Assistant Name Role Phone Unavailable Primary Care [...]
--- OUTSIDE RECORDS SUMMARY | 2025-10-02 13:00 | XMS_ITS | Encounter Summary ---
Author Organization [facility] Address [address] [place] [address] Care Team Providers Care Steam Drier Operator Name Role Phone Michael aBez MD Primary Care Provider + [phone] Acacia Scott APRN Unavailable [phone] Virgilio Nguyễn MD Unavailable +[phone] Encounter Details Date Type Department Care Team (Latest Contact Info) Description 08/31/2025 Travel Social History Tobacco Use Types Packs/Day [...] any time in the past 12 m [facility], were you homeless or living [...] drink first t pippa in the morning (EYE-DYNAMICIST) to steady your nerves or to get [...] EST Appointment [facility] [address] [place] [address] 10/20/2025 4:00 PM EST Office Visit [place] [facility] [address] [place] [address] David Gallego MD [address] [place] [address] documented as of this encounter Visit Diagnoses Not on filedocumented in this encounter Additional Health Concerns Assessment Noted Time A fall risk assessment has been complete d for the patient 08/07/2025 2:23 PM EDT A Body Mass Index follow-up plan has been documented for the patient 08/07/2025 4:31 PM EDT documented as of this encounter Care Teams Steam Drier Operator Relationship Specialty Start Date End Date Michael Baez MD [address] [place] [phone] PCP - General 04/08/21 Acacia Scott APRN [address] [place] [address] Nurse Practitioner Cardiology 03/27/22 Virgilio Nguyễn MD [address] [place] [address] Referring Physician 10/07/24 documented as of this encounter
--- OUTSIDE RECORDS SUMMARY | 2025-10-02 13:00 | XMS_ITS | Encounter Summary ---
Author Organization [facility] Address [address] [place] [address] Care Team Providers Care Burial Vault Setter Name Role Phone Michael Baez MD Primary Care Provider + [phone] Acacia Scott APRN Unavailable [phone] Virgilio Nguyễn MD Unavailable [phone] Encounter Details Date Type Department Care Team (Late st Contact Info) Description 08/07/2025 Orders Only [place] [facility] [address] [place] [address] Prachi Hodgson PA [address] [place] [address] Cerebral aneurysm (Primary Dx); Pre-op [...] were you homeless or living in a [place] [facility] [place] [facility] (including now)? No 05/08/2025 CAGE ASSESSMENT Answer [...] first t pippa in the morning (EYE-DIRECTOR TRADING) to steady your nerves or to get [...] EST Appointment [facility] [address] [place] [address] 10/20/2025 4:00 PM EST Office Visit [place] [facility] [address] [place] [address] David Gallego MD [address] [place] [address] Scheduled Orders Name Type Priority Associated Diagnoses [...] Expires: 02/04/2027 documented as of this encounter Visit Diagnoses [...] documented as of this encounter Care Teams Burial Vault Setter Relationship Specialty Start Date End Date Michael Baez MD [address] [place] [address] PCP - General 04/08/21 Acacia Scott APRN [address] [place] [address] Nurse Practitioner Cardiology 03/27/22 Virgilio Nguyễn MD [address] [facility] [address] [place] [address] Referring Physician 10/07/24 documented as of this encounter
--- OUTSIDE RECORDS SUMMARY | 2025-10-02 13:00 | XMS_ITS | Clinical Summary ---
Author Organization [facility] Address [address] [id number] Care Team Providers Care Hose Tubing Backer Name Role Phone Michael Baez MD Primary Care Provider + [phone] Acacia Scott APRN Unavailable [phone] Virgilio Nguyễn MD Unavailable [phone] Allergies Active Allergy Reactions Criticality Noted [...] a day as needed. 08/15/20 21 Active temazepam (Restoril) 15 MG capsule Take 1 capsule by mouth nightly. 08/14/20 22 Active fluticasone (Flonase) 50 MCG/ACT nasal spray Administer 1 spray into each nostril daily. 11/06/20 Active Fasenra Pen 30 MG/ML solution auto-injector injection Inject 1 mL under the skin every 56 days. Takes every 8 weeks - next dose due 09/07/25 03/13/20 24 Active Gemtesa 75 MG tablet Take 75 mg by mouth daily. Active pantoprazole (Protonix) 40 MG EC tablet [...] mouth daily. 30 tablet 05/07/20 25 Active Additional Information Patient not taking.Reported on 09/10/2025 Evolocumab (Repatha) 140 MG/ML solution auto-injector autoinjector Inject 1 mL under the skin every 14 days. 6 mL 1 05/07/20 25 Active azelastine (Astelin) 0.1 % nasal spray 07/04/20 24 Active acetaminophen (Tylenol 8 Hour) 650 MG ER tablet Take 1 tablet by mouth every 8 hours as needed for mild pain. Do not crush, chew, or split. Active ipratropium-alb uterol (Combivent Respimat) 20-100 MCG/ACT inhaler Inhale 1 puff 4 times a day as needed for wheezing or shortness of breath. Active Budeson-Glycopy rrol-Formoterol (Breztri Aerosphere) 160-9-4.8 MCG/ACT aerosol Inhale 2 puffs 2 times a day. Active cetirizine (ZyrTEC) 10 MG tablet 1 tablet. 01/31/20 Active Entresto 24-26 MG tablet 08/05/20 Active gabapentin (Neurontin) 300 MG capsule Take 1 capsule by mouth 3 times a day. 08/06/20 Active aspirin 81 MG EC tabletIndicatio ns:Cerebral aneurysm Take 1 tablet by mouth daily. 30 tablet 11 08/07/20 Active Eliquis 5 MG tablet Take 1 tablet by mouth 2 times a day. 180 tablet 3 09/14/20 Active Eliquis 5 MG tablet TAKE 1 TABLET BY MOUTH TWO TIMES A DAY 180 tablet 3 01/20/20 25 2024 Discontinued Active Problems Problem Noted Date Diagnosed Date Electrolyte abnormality 09/10/2025 Assessment & Plan (09/10/2025 11:45 AM EDT): Trend and replace per ICU sliding scale protocol Cerebral aneurysm 06/22/2025 Overview (06/22/2025): Right JONAH A2 segment aneurysm treated with first stage intracranial stent from right A2-A1 Continue ASA 81 mg and Plavix 75 mg daily (first dose tomrrow) Femoral access, Angioseal SBP<140 Assessment & Plan (09/09/2025 5:19 PM EDT): 09/09: Right JONAH A2 segment aneurysm, successfully treated with stage II intracranial Y stent and aneurysm coiling Continue ASA 81 mg and Plavix 75 mg daily Femoral access, Angioseal SBP<140 Assessment & Plan (06/22/2025 1:28 PM EDT): Right JONAH A2 segment aneurysm treated with first stage intracranial stent from right A2-A1 Continue ASA 81 mg and Plavix 75 mg daily (first dose tomrrow) Femoral access, Angioseal SBP<140 COPD (chronic obstructive pulmonary disease) Assessment & Plan (09/09/2025 5:19 PM EDT): PRN Duonebs Resume home medications as appropriate Assessment & Plan (06/22/2025 1:28 PM EDT): Resume home medications as appropriate Anxiety 06/22/2025 Assessment & Plan (09/09/2025 5:19 PM EDT): Resume home temazepam as appropriate Assessment & Plan (06/22/2025 1:28 PM EDT): Resume home temazepam as appropriate Insomnia 06/22/2025 Assessment & Plan (09/09/2025 5:19 PM EDT): Continue home trazodone as appropriate Assessment & Plan (06/22/2025 1:28 PM EDT): Continue home trazodone as appropriate RLS (restless legs syndrome) 08/15/2022 Assessment & Plan (09/09/2025 5:19 PM EDT): Resume home requip as appropriate Assessment & Plan (06/22/2025 1:28 PM EDT): Continue home requip Gastroesophageal reflux disease without esophagi tis 07/18/2022 Assessment & Plan (09/09/2025 5:19 PM EDT): Resume home medications as appropriate Assessment & Plan (06/22/2025 1:28 PM EDT): Continue pepcid Mixed hyperlipidemia 08/28/2021 Assessment & Plan (09/09/2025 5:19 PM EDT): Resume home medications as appropriate Assessment & Plan (06/22/2025 1:28 PM EDT): -Monitor per protocol. Coronary artery disease invo lving chip[place]cree coronary artery of chip[place]cree heart without angina pectoris 05/13/2019 Assessment & Plan (09/09/2025 5:19 PM EDT): Resume home medications as appropriate Assessment & Plan (06/22/2025 1:28 PM EDT): Resume home medications as appropriate Hypertension 05/02/2019 Assessment & Plan (09/09/2025 5:19 PM EDT): SBP<140 Continue PRN labetalol and hydralazine Assessment & Plan (06/22/2025 1:28 PM EDT): SBP<140 Continue prn labetalol and hydralazine PAF (paroxysmal atrial fibrillation) 02/13/2019 Assessment & Plan (09/09/2025 5:19 PM EDT): Resume home bisoprolol when appropriate Currently holding as bradycardic immediately post procedure Resume Eliquis per NSGY Assessment & Plan (06/22/2025 1:28 PM EDT): Continue bisoprolol Hold home eliquis Resolved Problems Problem Noted Date Diagnosed Date Resolved Date Abrasion of left cornea 06/22/202508/26 Assessment & Plan (06/22/2025 1:28 PM EDT): Continue home lacrilube CAP (community acquired pneumonia) 05/02/2025 06/22/2025 CHF [...] Encounters Date Type Department Care Team Description 09/10/2025 Travel 09/10/2025 Orders Only [facility] [address], [address] [place] [address] Prachi Hodgson PA Cerebral aneurysm (Primary Dx) 09/09/2025 11:55 PM EDT - 09/10/2025 2:18 PM EDT Hospital Encounter [facility] OPERATING ROOM [address] [place] [phone] Anders Sotelo MD Armstrong, Bruce, PAULINO Aneurysm ([facility]) (Primary Dx); Pre-op exam; Cerebral aneurysm Discharge Disposition: Home or Self Care 09/09/2025 1:15 PM EDT Anesthesia Event [facility] Interventional Radiology [address] [place] [address] Jill Barnes CRNA, Elizabeth Benitez PA 09/09/2025 Travel 09/08/2025 Travel 08/31/2025 1:00 PM EDT Pre-Admission Testing [facility] [address], [address] [place] [address] [place] [address] 08/31/2025 Travel 08/20/2025 Telephone [facility] [address] [phone] Anders Sotelo MD HCN - Patient Message (Update on labs) 08/07/2025 1:30 PM EDT Office Visit [facility] [address], [address] [place] [phone] Anders Sotelo MD Pre-op exam (Primary Dx); Cerebral aneurysm 08/07/2025 Orders Only [facility] [address], [address] [place] [phone] Prachi Hodgson PA Cerebral aneurysm (Primary Dx); Pre-op exam 08/07/2025 Travel 07/09/2025 Orders Only [facility] [address] [place] [phone] Gina Morales, PharmD from Last 3 Months Immunizations Immunization Administration [...] any time in the past 12 [facility], were you homeless or living [...] drink first t pippa in the morning ([employer] TOP HELPER) to steady your nerves or to get [...] Pulse 71 09/10/2025 1:00 PM EDT Temperature 36.7 C (98.1 F) 09/10/2025 7:00 AM EDT Respiratory Rate 23 09/10/2025 1:00 PM EDT Oxygen Saturation 95% 09/10/2025 1:00 PM EDT Inhaled Oxygen Concentration - - Weight 76.2 kg (167 lb 15.9 oz) 09/09/2025 8:55 AM EDT Height 162.6 cm (5' 4 ) 09/09/2025 8:55 AM EDT Body Mass Index 28.84 09/09/2025 8:55 AM EDT Plan of Treatment Upcoming Encounters Date Type Department Care Team (Late st Contact Info) Description 10/20/2025 1:50 PM EST Appointment [facility] Radiology [address] [place] [phone] 10/20/2025 4:00 PM EST Office Visit [place] [facility] [address], [address] [place] [address] David Gallego MD [address] [place] [address] Health Maintenance Due Date Last Done Comments [facility]-Bone Density Scan 1950 [facility]-Medicare Annual Wellness (AWV) 1950 [facility]-/Child/Adol SDOH Screenings 1950 [facility]-DTaP,Tdap,and Td Vaccines (1 - Tdap) 1970 CT Colonography 1996 Colonoscopy 1996 FIT-DNA 1996 FIT 1996 FOBT 1996 Sigmoidoscopy 1996 [facility]-Colorectal Cancer Screening 1996 Lung Cancer Screening Shared Decision Making 2001 [facility]-Breast Cancer Screening 2001 [facility]-Zoster Vaccines (1 of 2) 2001 [facility]-RSV Vaccine: 60+ Years or (1 - Risk 60-74 years 1-dose series) 2011 [facility]-Lung Cancer Screening 08/07/2023 08/07/2022 [facility]-Depression Screening 03/31/2025 03/31/2024 COK-CSIHY-90 Vaccine ( - season) 2025 [facility]- SDOH [...] on patient's age to complete this topic Medical Devices Implanted Type Area Cracker And Cookie Machine Operator Device Identifier Shelf Expiration Date Model / Serial / Lot Stent Without Tip Hilliards 3mm X 24mm - [id number] Implanted:Qty: 1 on 06/22/2025 by Marifer Rose, PAULINO at [facility]5 68 01/31/2030 [id number] / / [id number] Vip Vascular Closure Device 6 Fr - [id number] Implanted:Qty: 1 on 06/22/2025 by Marifer Rose RN at [facility] [employer]-[id number] 02/23/2026 [id number] / / [id number] Coil Detach Xl Soft 7x20cm - [id number] Implanted:Qty: 1 on 09/09/2025 by Anders Sotelo MD at [facility] 68 05/31/2030 [id number] / / [id number] Coil Detach Xl Soft 7x20cm - [id number] Implanted:Qty: 1 on 09/09/2025 by Anders Sotelo MD at [facility] [employer]-3175 68 05/29/2030 [id number] / / [id number] Coil Detach Xl Soft 6x20cm - [id number] Implanted:Qty: 1 on 09/09/2025 by Anders Sotelo MD at [facility]-3175 68 06/01/2030 [id number] / / [id number] Coil 360 Ultra 5mm-15cm - [id number] Implanted:Qty: 1 on 09/09/20[facility]175 68 05/11/2030 [id number] / / [id number] Coil 360 Ultra 5mm-15cm - [id number] Implanted:Qty: 1 on 09/09/2025 by Anders Sotelo MD at [facility] [employer]-3175 68 05/16/2030 [id number] / / [id number] Closure Device Vip Angioseal 8 Fr - [id number] Implanted:Qty: 1 on 09/09/2025 by Anders Sotelo MD at [facility] [employer]-[id number] 05/18/2026 [id number] / / [id number] Stent Without Tip Hilliards 3mm X 24mm - [id number] Implanted:Qty: 1 on 09/09/2025 by Anders Sotelo MD at [facility] [employer]-3175 68 02/24/2030 [id number] / / [id number] Hip Stem Inzone Detachment - [id number] Implanted:Qty: 1 on 09/09/2025 by Anders Sotelo MD at [facility]-3175 68 04/09/2027 [id number] / / [id number] Coil Detach Xl Soft 66c07mj - [id number] Implanted:Qty: 1 on 09/09/2025 by Anders Sotelo MD at [facility] [employer]-3175 68 06/21/2030 [id number] / / [id number] Coil Detach Xl Soft 24h69if - [id number] Implanted:Qty: 1 on 09/09/2025 by Anders Sotelo MD at [facility]-3175 68 06/21/2030 [id number] / / [id number] Coil Detach Xl Soft 60x64yl - [id number] Implanted:Qty: 1 on 09/09/2025 by Anders Sotelo MD at [facility] [employer]-3175 68 06/08/2030 [id number] / / [id number] Coil Detach Xl Soft 38p63rv - [id number] Implanted:Qty: 1 on 09/09/2025 by Anders Sotelo MD at [facility] [place] [employer]-3175 68 06/08/2030 [id number] / / [id number] Coil Detach Xl Soft 8x30cm - [id number] Implanted:Qty: 1 on 09/09/2025 by Anders Sotelo MD at [facility] [employer]-3175 68 05/04/2030 [id number] / / [id number] Procedures Procedure Name Priority Date/Time Associated Diagnosis Comments EXTRA TUBE LAVENDER TOP Routine 09/10/2025 4:45 AM EDT EXTRA TUBE LIGHT GREEN TOP Routine 09/10/2025 4:45 AM EDT EXTRA TUBES Routine 09/10/2025 4:45 AM EDT BLOOD GAS PANEL, ARTERIAL Routine 09/09/2025 5:51 PM EDT PHOSPHORUS, PLASMA Routine 09/09/2025 5: 50 PM EDT MAGNESIUM, PLASMA Routine 09/09/2025 5:5 0 PM EDT COMPREHENSIVE METABOLIC PANEL, PLASMA Routine 09/09/2025 5:50 PM EDT CBC W/O DIFFERENTIAL Routine 09/09/2025 5:50 PM EDT ND CRITICAL CARE, E/M 30-74 MINUTES Routine 09/09/2025 5:20 PM EDT Aneurysm (CMS/HCC) OXYGEN THERAPY Routine 09/09/2025 3:52 PM EDT OXYGEN THERAPY Routine 09/09/2025 3:51 PM EDT IR ARTERIAL EMBOLIZATION Routine 09/09/2025 3:44 PM EDT Aneurysm (CMS/HCC) ANESTHESIA ARTERIAL LINE PLACEMENT Routine 09/09/2025 1:35 PM EDT PB ANESTHESIA PLACEHOLDER Routine 09/09/2025 1:30 PM EDT ND AN ELECTIVE ENDOTRACHEAL AIRWAY Routine 09/09/2025 1:30 PM EDT HEPATITIS C ANTIBODY - ED W/REFLEX TO HCV QUANT PCR STAT 05/01/2025 8:[address] CHEST WO IV CONTRAST STAT 08/07/2022 1:12 PM EDT from Last 3 Months or Most Recently Relevant to Health Maintenance Results * Lavender Top (09/10/2025 4:45 AM EDT) Extra Hold for add-ons 09/10/2025 8:02 AM EDT [facility] Comment:Auto resulted. Blood Venous blood specimen / Unknown 09/10/2025 4:45 AM EDT 09/10/2025 5:05 AM EDT us Anders Sotelo MD LAB BLOOD ORDERABLES Final Re sult Performing Organization Address City/[facility]/ZIP Co de Phone Number [facility] [address] [place] [address] * Light Green Top (09/10/2025 4:45 AM EDT) Extra Hold for add-ons 09/10/2025 8:02 AM EDT [facility] Comment:Auto resulted. Blood Venous blood specimen / Unknown 09/10/2025 4:45 AM EDT 09/10/2025 5:05 AM EDT us Anders Sotelo MD LAB BLOOD ORDERABLES Final Re sult Performing Organization Address City/[facility]/ZIP Co de Phone Number [facility] [address] [place] [address] * (ABNORMAL) Blood gas panel, arterial (09/09/2025 5:51 PM EDT) pH, Arterial 7.32 7.31 - 7.42 LAB HEMATOLOGY METHOD 09/09/2025 5:59 PM EDT [facility] pCO2, Arterial 44 35 - 48 mmHg LAB HEMATOLOGY METHOD 09/09/2025 5:59 PM EDT [facility] pO2, Arterial 128 >70 mmHg LAB HEMATOLOGY METHOD 09/09/2025 5:59 PM EDT [facility] SO2, Measured, Arterial 99(H) 94 - 98 % LAB HEMATOLOGY METHOD 09/09/2025 5:59 PM EDT [facility] Base Excess, Arterial -3.7(L) -2.0 - 3.0 mmol/L LAB HEMATOLOGY METHOD 09/09/2025 5:59 PM EDT [facility] Bicarbonate, Calculated, Arterial 22 22 - 26 mmol/L LAB HEMATOLOGY METHOD 09/09/2025 5:59 PM EDT [facility] Hematocrit, Whole Blood 33.8(L) 34.0 - 45.0 % LAB HEMATOLOGY METHOD 09/09/2025 5:59 PM EDT [facility] Sodium, Whole Blood 143 136 - 145 mmol/L LAB HEMATOLOGY METHOD 09/09/2025 5:59 PM EDT [facility] Potassium, Whole Blood 4.1 3.6 - 4.9 mmol/L LAB HEMATOLOGY METHOD 09/09/2025 5:59 PM EDT [facility] Chloride, Whole Blood 114(H) 97 - 107 mmol/L LAB HEMATOLOGY METHOD 09/09/2025 5:59 PM EDT [facility] Glucose, Whole Blood 114(H) 74 - 99 mg/dL LAB HEMATOLOGY METHOD 09/09/2025 5:59 PM EDT [facility] Ionized Calcium, Whole Blood 4.4(L) 4.6 - 5.1 mg/dL LAB HEMATOLOGY METHOD 09/09/2025 5:59 PM EDT [facility] Lactate, Arterial, Whole Blood 0.7 0.5 - 1.6 mmol/L LAB HEMATOLOGY METHOD 09/09/2025 5:59 PM EDT [facility] Blood Arterial blood specimen / Unknown Arterial Puncture / Unknown 09/09/2025 5:51 PM EDT 09/09/2025 5:58 PM EDT us Rose Dang CANCELING AND CUTTING CONTROL CLERK, DNP LAB BLOOD ORDERABLES Fi nal Result [facility] [address] [place] [address] * (ABNORMAL) CBC W/O Differential (09/09/2025 5:50 PM EDT) WBC Count 5.96 3.70 - 10.30 10*3/uL LAB HEMATOLOGY METHOD 09/09/2025 6:20 PM EDT [facility] RBC Count 3.76(L) 3.90 - 5.20 10*6/uL LAB HEMATOLOGY METHOD 09/09/2025 6:20 PM EDT [facility] HGB 11.2 11.2 - 15.7 g/dL LAB HEMATOLOGY METHOD 09/09/2025 6:20 PM EDT [facility] HCT 34.8 34.0 - 45.0 % LAB HEMATOLOGY METHOD 09/09/2025 6:20 PM EDT [facility] Platelet Count 235 155 - 369 10*3/uL LAB HEMATOLOGY METHOD 09/09/2025 6:20 PM EDT [facility] MCV 93 79 - 98 fL LAB HEMATOLOGY METHOD 09/09/2025 6:20 PM EDT [facility] MCH 29.8 26.0 - 32.0 pg LAB HEMATOLOGY METHOD 09/09/2025 6:20 PM EDT [facility] MCHC 32.2 30.7 - 35.5 g/dL LAB HEMATOLOGY METHOD 09/09/2025 6:20 PM EDT [facility] RDW 14.6(H) 11.5 - 14.5 % LAB HEMATOLOGY METHOD 09/09/2025 6:20 PM EDT [facility] MPV 9.3 8.8 - 12.5 fL LAB HEMATOLOGY METHOD 09/09/2025 6:20 PM EDT [facility] nRBC 0.0 <=0.0 per 100 WBCs LAB HEMATOLOGY METHOD 09/09/2025 6:20 PM EDT [facility] Blood Venous blood specimen / Unknown Venipuncture / Unknown 09/09/2025 5:50 PM EDT 09/09/2025 6:12 PM EDT us Rose Dang CANCELING AND CUTTING CONTROL CLERK, DNP LAB BLOOD ORDERABLES Fi nal Result [facility] [address] [place] [address] * (ABNORMAL) Phosphorus, Plasma (09/09/2025 5:50 PM EDT) Phosphorus, Plasma 5.6(H) 2.5 - 4.5 mg/dL 09/09/2025 6:38 PM EDT [facility] Blood Venous blood specimen / Unknown Venipuncture / Unknown 09/09/2025 5:50 PM EDT 09/09/2025 6:06 PM EDT Applied Identity Rose Lucina Dang CANCELING AND CUTTING CONTROL CLERK, DNP LAB BLOOD ORDERABLES Fi nal Result Performing Organization Address City/[facility]/ZIP Co de Phone Number [facility] [address] [place] [address] * (ABNORMAL) Magnesium, Plasma (09/09/2025 5:50 PM EDT) Magnesium, Plasma 1.5(L) 1.9 - 2.4 mg/dL 09/09/2025 6:38 PM EDT [facility] Blood Venous blood specimen / Unknown Venipuncture / Unknown 09/09/2025 5:50 PM EDT 09/09/2025 6:06 PM EDT Applied Identity Rose Dang APRN, DNP LAB BLOOD ORDERABLES Fi nal Result [facility] [address] [place] [address] * (ABNORMAL) Comprehensive metabolic panel (09/09/2025 5:50 PM EDT) Glucose, Plasma 112(H) 74 - 99 mg/dL 09/09/2025 6:38 PM EDT [facility] BUN, Plasma 8 8 - 23 mg/dL 09/09/2025 6:38 PM EDT [facility] Creatinine, Plasma 0.74 0.60 - 1.10 mg/dL 09/09/2025 6:38 PM EDT [facility] BUN/Creatinine Ratio 11 09/09/2025 6:38 PM EDT [facility] Sodium, Plasma 142 136 - 145 mmol/L 09/09/2025 6:38 PM EDT [facility] Potassium, Plasma 4.3 3.6 - 4.9 mmol/L 09/09/2025 6:38 PM EDT [facility] Chloride, Plasma 111(H) 97 - 107 mmol/L 09/09/2025 6:38 PM EDT [facility] CO2, Plasma 20(L) 22 - 29 mmol/L 09/09/2025 6:38 PM EDT [facility] Anion Gap 11 6 - 16 mmol/L 09/09/2025 6:38 PM EDT [facility] Total Calcium, Plasma 7.8(L) 8.9 - 10.2 mg/dL 09/09/2025 6:38 PM EDT [facility] Total Protein 5.8(L) 6.3 - 7.9 g/dL 09/09/2025 6:38 PM EDT [facility] Albumin, Plasma 3.5 3.5 - 5.2 g/dL 09/09/2025 6:38 PM EDT [facility] AST, Plasma 22 10 - 35 U/L 09/09/2025 6:38 PM EDT [facility] ALT, Plasma 13 10 - 35 U/L 09/09/2025 6:38 PM EDT [facility] Alkaline Phosphatase, Plasma 51 46 - 142 U/L 09/09/2025 6:38 PM EDT [facility] Total Bilirubin, Plasma 0.6 0.2 - 1.1 mg/dL 09/09/2025 6:38 PM EDT [facility] eGFRcr 85.6 mL/min/1.7 3m*2 09/09/2025 6:38 PM EDT [facility] Comment:Reported eGFRcr in m L/min/1.73m2 is based the CKD-EPI 2020 equation that does not use a race coefficient. Blood Venous blood specimen / Unknown Venipuncture / Unknown 09/09/2025 5:50 PM EDT 09/09/2025 6:06 PM EDT us Rose Dang CANCELING AND CUTTING CONTROL CLERK, DNP LAB BLOOD ORDERABLES Fi nal Result [facility] [address] [phone] * ND CRITICAL CARE, E/M 30-74 MINUTES (09/09/2025 5:20 [...] stent assisted coil embolization. COMPARISON: DSA 06/22/2025 KITCHENHAND: Anders Sotelo M.D. SECONDARY COURT OPERATIONS CLERK: Yumi Jefferson MD LENGTH OF PROCEDURE: 57 [...] femoral artery was then accessed with 4 German micropuncture set, and a 4 German sheath advanced over a J-wire. The sheath [...] 90 cm BMX 81 guide catheter.A 5 German La 2 catheter was advanced over a 0.035 Angle-Holt guidewire through the sheath and into the [...] obtained. At this point, a Milena 5 prydeinig intermediate distal access catheter, SL-10 microcatheter, and Buzz 0.014 microwire were coaxially advanced through the guide catheter into the right MCA artery for the support needed to advance the intermediate catheter. The microwire microcatheter were navigated into the right JONAH A1 segment, the microwire was navigated through the aneurysm into the right pericallosal artery. The microwire was removed. A Neuroform Hilliards stent measuring 3 mm x 24 mm [...] the puncture site was closed using 8 prydeinig angioseal. Patient tolerated the procedure and she [...] stent assisted coil embolization. COMPARISON: DSA 06/22/2025 KITCHENHAND: Anders Sotelo M.D. SECONDARY COURT OPERATIONS CLERK: Yumi Jefferson MD LENGTH OF PROCEDURE: 57 [...] common femoral artery wasthen accessed with 4 German micropuncture set, and a 4 German sheathadvanced over a J-wire. The sheath was connected to a regulated,pressurized infusion of heparinized saline. During access, ultrasoundguidance was used to confirm vessel patency, and to visualize the vascularneedle entry during access. Ultrasound images were included in the finalreport. Using roadmap technique, the sheath was exchanged over a 145cm J-wire fora 90 cm BMX 81 guide catheter.A 5 German La 2 catheter was advancedover a 0.035 Angle- Holt guidewire through the sheath and into thesubclavian [...] cerebral artery A2 segment aneurysm note. Aneurysm pvdiybkj60.4 mm x 14.1 mm with 4.6 mm [...] obtained. At this point, a Milena 5 prydeinig intermediate distal accesscatheter, SL-10 microcatheter, and Buzz 0.014 microwire werecoaxially advanced through the guide catheter into the right MCA arteryfor the support needed to advance the intermediate catheter. The microwiremicrocatheter were navigated into the right JONAH A1 segment, the microwirewas navigated through the aneurysm into the right pericallosal artery. Themicrowire was removed. A Neuroform Hilliards stent measuring 3 mm x 24 mm [...] and thepuncture site was closed using 8 prydeinig angioseal. Patient tolerated theprocedure and she was [...] IMG IR PROCEDURES Final Resul t * PB ANESTHESIA NON-TIMED PROCEDURE PLACEHOLDER (09/09/2025 [...] Staffing Performed: Anesthesiologist Anesthesiologist: Luciano Pratt MD us Luciano Pratt MD ANESTHESIA ORDERABLES Edited Re sult - Final * ND AN ELECTIVE ENDOTRACHEAL AIRWAY, PB ANESTHESIA PLACEHOLDER (09/09/2025 1:30 PM EDT) Narrative Jill Barnes CRNA, DNP - 09/09/2025 1:30 PM EDT Jill Barnes CRNA, DNP 09/09/2025 1:43 PM Airway Date/Time: 09/09/2025 1:30 PM Reason: elective Airway not difficult General Information and Staff Patient location during procedure: OR TRAVEL TRAILER COMPONENTS ASSEMBLER: Jill Barnes CRNA, DNP Performed: TRAVEL TRAILER COMPONENTS ASSEMBLER Patient Condition Indications for airway management: anesthesia [...] Additional Comments Atraumatic. No change to dentition. us Luciano Pratt MD ANESTHESIA ORDERABLES Final Res ult * Hepatitis C Antibody - ED (05/01/2025 8:22 PM EDT) Hepatitis C Antibody Negative Negative 05/01/2025 9:16 PM EDT [facility] Blood Venous blood specimen / Unknown Venipuncture / Unknown 05/01/2025 8:22 PM EDT 05/01/2025 8:34 PM EDT Rula Howe MD LAB BLOOD ORDERABLES Final Re sult [facility] [address] [place] [address] * CT Chest wo IV Contrast (08/07/2022 [...] COMMUNICATION: Per this written report.. Dictated by Susannah Slaughter MD on 08/07/2022 1:25 PM Signed by Susannah Slaughter MD on 08/07/2022 1:47 PM Narrative 08/07/2022 1:47 PM EDT Exam/Procedure: CT LUMBAR SPINE WO IV CONTRAST, CT THORACIC SPINE WO IV CONTRAST, CT CHEST WO IV CONTRAST ordered by GUILLERMO PHILIP, [id number] CLINICAL INDICATION: Low back pain, no red [...] soft tissues. No acute abnormality Procedure Note Susannah Slaughter MD - 08/07/2022 Exam/Procedure: CT LUMBAR SPINE WO IV CONTRAST, CT THORACIC SPINE WO IVCONTRAST, CT CHEST WO IV CONTRAST ordered by GUILLERMO PHILIP, [id number] CLINICAL INDICATION: Low back pain, no red [...] COMMUNICATION: Per this written report.. Dictated by Susannah Slaughter MD on 08/07/2022 1:25 PM Signed by Susannah Slaughter MD on 08/07/2022 1:47 PM Guillermo Philip MD IMG CT PROCEDURES Final R esult from Last 3 Months or Most Recently Relevant to Health Maintenance Insurance Kathleen [place], [place] [id number] [employer] MEDICARE Advance Directives * Full Code (Latest Code Status on File) Date Activated Date Inactivated Comments 09/09/2025 3:52 PM 09/10/2025 4:19 PM Question Answer Comments Patient has decision-making capacity? Yes * Full Code Date Activated Date Inactivated Comments 09/09/2025 3:51 PM 09/09/2025 3:52 PM Question Answer Comments Patient has decision-making capacity? Yes * Full Code Date Activated Date Inactivated Comments 06/22/2025 11:11 [...] Patient has decision-making capacity? Yes Care Teams Hose Tubing Backer Relationship Specialty Start Date End Date Michael Baez MD [address] [place] [address] PCP - General 04/08/21 Acacia Scott APRN [address] [place] [address] Nurse Practitioner Cardiology 03/27/22 Virgilio Nguyễn MD [address] [place], [place] [address] Referring Physician 10/07/24
--- OUTSIDE RECORDS SUMMARY | 2025-10-02 13:00 | XMS_ITS | Encounter Summary ---
Author Organization [facility] Address [address] [place] [address] Care Team Providers Care Primer Waterproofing Machine Adjuster Name Role Phone Michael Baez MD Primary Care Provider Encounter Details Date Type Department Care Team (Late st Contact Info) Description 12/11/2018 External CPT II CLINICAL THERAPIST - [facility] Social History Tobacco Use [...] on filedocumented in this encounter Care Teams Primer Waterproofing Machine Adjuster Relationship Specialty Start Date End Date Michael Baez MD [address] [facility] [address] [facility] [address] PCP - General Adolescent Medicine 04/25/23 documented as of this encounter
--- OUTSIDE RECORDS SUMMARY | 2025-10-02 13:01 | XMS_ITS | Encounter Summary ---
Author Organization Healthcare Address [address] [place] [address] Care Team Providers Care Fish Net Stringer Name Role Phone Michael Baez MD Primary Care Provider + [phone] Acacia Scott LEAD PRINCIPAL TECHNICAL ARCHITECT Unavailable [phone] Virgilio Nguyễn MD Unavailable [phone] Elisa Camacho CHECKING DEPARTMENT SUPERVISOR Unavailable Unavailab le Encounter Details Date Type Department Care Team (Late st Contact Info) Description 09/01/2024 Orders Only External Location [address] [place] [address] Provider, External Social History Tobacco Use Types [...] drink first t pippa in the morning (EYE-FOUNDRY SUPERINTENDANT) to steady your nerves or to get [...] Appointment [facility] Radiology [address] [place] [address] 10/20/2025 4:00 PM EST Office [facility] [place] [facility] [address] [place] [address] David Gallego MD [address] [place] [address] documented as of this encounter [...] documented as of this encounter Care Teams Fish Net Stringer Relationship Specialty Start Date End Date Michael Baez MD [address] [place] [address] PCP - General 04/08/21 Acacia Scott APRN [address] [place] [address] Nurse Practitioner Cardiology 03/27/22 Virgilio Nguyễn MD [address] [facility] [address] [place] [address] Referring Physician 10/07/24 Elisa Camacho LPN [facility] TCM Nurse 05/07/2505/26 documented as of this encounter
--- OUTSIDE RECORDS SUMMARY | 2025-10-02 13:01 | XMS_ITS | Encounter Summary ---
Author Organization [facility] Address [address] [place] [address] Care Team Providers Care Machine Cell Tuber Name Role Phone Michael Baez MD Primary Care Provider + [phone] Acacia Scott YIELD ANALYST Unavailable [phone] Virgilio Nguyễn MD Unavailable [phone] Reason for Visit * Reason Onset Date Comments HCN - Patient Message 08/20/2025 Update on labs Encounter Details Date Type Department Care Team (Late st Contact Info) Description 08/20/2025 Telephone [facility] [address] [place] [address] Anders Sotelo MD [address] [place] [address] HCN - Patient Message (Update on labs) Social History Tobacco Use Types Packs/Day Years [...] [facility] the [facility] were you [facility] or living in a assisted (including now)? 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-LINE WALKER) to 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 0 05/03/2025 CAGE Questionnaire Score 0 025 Utilities Answer Date Recorded In the past 12 months has th e [employer], gas, oil, or water Contactually threatened to shut off services in your [...] encounter Miscellaneous Notes * Telephone Encounter - Aleksandr Alford - 08/20/2025 8:39 AM EDT Patient Phone Message Reason for Call: Patient states she's supposed to be having labs done at [facility] in [place], but orders aren't there as yet. She's requesting a call back for an update. Best contact number and optimal time of day to reach caller: Please call [phone] Note: Please do not reply to this message. Follow-up communication and further actions as a result of this message need to be communicated with the patient directly, if the patient is not active onMyChart. If the patient is active on MyChart, they will receive notification of the communication/outcome via [employer] documented in this encounter Plan of Treatment Upcoming Encounters Date Type Department Care Team (Late st Contact Info) Description 10/20/2025 1:50 PM EST Appointment [facility] Radiology [address] [place] [address] 10/20/2025 4:00 PM EST Office Visit [facility] [address] [place] [address] David Gallego MD [address] [place] [address] documented as of this encounter Visit Diagnoses Not on filedocumented in this encounter Additional Health Concerns Assessment Noted Time A fall risk assessment has been complete d for the patient 08/07/2025 2:23 PM EDT A Body Mass Index follow-up plan has been documented for the patient 08/07/2025 4:31 PM EDT documented as of this encounter Care Teams Machine Cell Tuber Relationship Specialty Start Date End Date Michael Baez MD [address] [facility] [address] [place] [id number] PCP - General 04/08/21 Acacia Scott APRN [address] [place] [address] Nurse Practitioner Cardiology 03/27/22 Virgilio Nguyễn MD [address] [facility] [address] [place] [address] Referring Physician 10/07/24 documented as of this encounter
--- OUTSIDE RECORDS SUMMARY | 2025-10-02 13:01 | XMS_ITS | Encounter Summary ---
Author Organization [facility] Address [address] [place] [address] Care Team Providers Care Licensed Prosthetist/Orthotist Name Role Phone Michael Baez MD Primary Care Provider [phone] Encounter Details Date Type Department Care Team (Late st Contact Info) Description 12/16/2013 Conversion Encounter [facility] HISTORICAL CONV [address] [place] [address] Interface, See Report Social History [...] See Report - 12/16/2013 8:29 AM EST [place] [address] DISCHARGE SUMMARY PATIENT NAME: SUSANNAH ANDRES [address] [facility] NO: [id number] DATE OF : 1950 DATE OF ADMISSION: [...] Aliya Miller M.D.* MBS/rxll Voice Rec. ID #[id number] Voice Original ID #[id number] Doc ID #[id number] Rev. #0 cc: Aliya Miller M.D.* Dr. Juan David Lopez M.D.* DO NOT TEXT EDIT THIS LINE :CDS:[id number]: Authenticated and Edited by ALIYA MILLER MD On 12/23/13 12:06:53 PM documented in this encounter H&P Notes * Interface, See Report - 12/16/2013 8:29 AM EST [address] HISTORY AND PHYSICAL PATIENT NAME: SUSANNAH ANDRES 2 [facility] NO: [id number] DATE OF : 1950 DATE OF ADMISSION: 12/16/2013 ADMITTING PHYSICIAN: Aliya Miller M.D. PRIMARY CARE PHYSICIAN: Dr. Garcia formerly Dr. Lynn THREAD LASTER: Robel Chicas M.D. REFERRING PHYSICIAN: Ingrid Lopez [...] Negative stress test, 06/2013. 3. History of [place]. 4. Obesity with BMI over 32. 5. [...] Aliya Miller M.D.* HARSHAD/danyell Voice Rec. ID #[id number] Voice Original ID #[id number] Doc ID #[id number] Rev. #0 cc: Aliya Miller M.D.* Ingrid Lopez M.D.* DO NOT TEXT EDIT THIS LINE :[facility]:[id number]: Authenticated by ALIYA MILLER MD On 01/06/2014 07:44:48 AM documented in this encounter OR Notes * Op Note - Interface, See Report - 12/16/2013 8:29 AM EST [place] [address] OPERATIVE REPORT PATIENT NAME: SUSANNAH ANDRES1 2 [facility] NO: [id number] DATE OF : 1950 DATE OF OPERATION: 12/16/2013 SURGEON: Ingrid Lopez M.D. CHARTER COACH DRIVER: Nikole Tovar PA-C PREOPERATIVE DIAGNOSIS: Advanced right [...] closed with #1 Vicryl in an interrupted [id number] fashion, followed by closure of the deep [...] Ingrid Lopez M.D.* MK/rxmjh Voice Rec. ID #[id number] Original Voice Rec. ID #[id number] Doc ID #[id number] Revision Count: 0 cc: Ingrid Lopez M.D.* Shahid Fall M.D.* Nikole Tovar PA-C <start header> [place] [address] OPERATIVE REPORT PATIENT NAME: SUSANNAH ANDRES1 2 [facility] NO: [id number] DATE OF : 1950 <end header> DO NOT TEXT EDIT THIS LINE :COMBER OPERATOR:[id number]: Authenticated by INGRID LOPEZ M.D. On 12/18/2013 [...] EST) Magnesium 2.0 1.7 - 2.4 mg/dL [facility] Blood specimen (specimen) 12/18/2013 4:49 AM EST Narrative [facility] - 12/18/2013 5:31 AM EST Specimen Type: Blood Aliya Miller MD LAB BLOOD ORDERABLES Fi nal Result [facility] [address] [id number], * (ABNORMAL) CBC (No diff) (12/18/2013 4:49 AM EST) WBC 8.79 3.50 - 10.80 K/[facility] RBC 3.88(L) 3.89 - 5.14 M/[facility] Hemoglobin 11.9 11.5 - 15.5 g/dL [facility] Hematocrit 34.9 34.5 - 44.0 % [facility] MCV 89.9 80.0 - 99.0 fL [facility] MCH 30.7 27.0 - 31.0 pg [facility] MCHC 34.1 32.0 - 36.0 g/dL [facility] RDW-CV 13.1 11.3 - 14.5 % [facility] Platelets 271 150 - 450 K/[facility] Blood specimen (specimen) 12/18/2013 4:49 AM EST [facility] - 12/18/2013 5:15 AM EST Specimen Type: Blood Ingrid Lopez MD LAB BLOOD ORDERABLES Final Res ult Performing Organization Address [facility] [place] [address], * (ABNORMAL) Magnesium (12/17/2013 4:55 AM EST) Pathologist [facility] Magnesium 1.4(L) 1.7 - 2.4 mg/dL [facility] Blood specimen (specimen) 12/17/2013 4:55 AM EST [facility] - 12/17/2013 5:52 AM EST Specimen Type: Blood Aliya Miller MD LAB BLOOD ORDERABLES Fi nal Result Performing Organization Address [facility] [place] [address], * Troponin (12/17/2013 4:55 AM EST) Pathologist [facility] Troponin I 0.04 0.00 - 0.60 ng/mL [facility] Blood specimen (specimen) 12/17/2013 4:55 AM EST [facility] - 12/17/2013 5:52 AM EST Specimen Type: Blood Aliya Miller MD LAB BLOOD ORDERABLES Fi nal Result Performing Organization Address [facility] [place] [address], * Vitamin D 25 hydroxy (12/17/2013 4:55 AM EST) Pathologist [facility] 25 Hydroxy, Vitamin D 52.1 ng/mL [facility] Comment: DF by IF @ 12/17/2013 05:57 Reference Ranges for Total Vitamin D 25(OH) Deficiency <20.0 ng/ml Insufficiency 20-30 ng/ml Sufficiency 30-100 ng/ml Toxicity >100 ng/ml Blood specimen (specimen) 12/17/2013 4:55 AM EST [facility] - 12/17/2013 5:57 AM EST Specimen Type: Blood Aliya Miller MD LAB BLOOD ORDERABLES Fi nal Result Performing Organization Address City/[facility]/[place]IP [place] [address], * (ABNORMAL) Basic metabolic panel (12/17/2013 4:55 AM EST) Pathologist [facility] Glucose 119(H) 70 - 100 mg/dL [facility] BUN 9 6 - 20 mg/dL [facility] Creatinine 0.9 0.6 - 1.3 mg/dL [facility] Sodium 134(L) 136 - 145 mmol/L [facility] Potassium 3.7 3.4 - 5.4 mmol/L [facility] Chloride 100 98 - 107 mmol/L [facility] CO2 28 20 - 31 mmol/L [facility] Calcium 8.8 8.7 - 10.4 mg/dL [facility] eGFR 67 ml/min/1.7 32 [facility] Comment: DF by IF @ 12/17/2013 05:52 National Kidney [employer] Guidelines Stage Description GFR 1 Normal or High 90+ 2 Mild decrease 60-89 3 Moderate decrease 30-59 4 Severe decrease 15-29 5 Kidney failure <15 Anion Gap 7 3 - 11 mmol/L [facility] Blood specimen (specimen) 12/17/2013 4:55 AM EST Narrative [facility] - 12/17/2013 5:52 AM EST Specimen Type: Blood Aliya Miller MD LAB BLOOD ORDERABLES [facility] Result Performing Organization Address City/State/[facility] [place] [address], * CBC (No diff) (12/17/2013 4:55 AM EST) WBC 9.42 3.50 - 10.80 K/[facility] RBC 4.00 3.89 - 5.14 M/[facility] Hemoglobin 12.3 11.5 - 15.5 g/dL [facility] Hematocrit 36.2 34.5 - 44.0 % [facility] MCV 90.5 80.0 - 99.0 fL [facility] MCH 30.8 27.0 - 31.0 pg [facility] MCHC 34.0 32.0 - 36.0 g/dL [facility] RDW-CV 13.2 11.3 - 14.5 % [facility] Platelets 287 150 - 450 K/[facility] Blood specimen (specimen) 12/17/2013 4:55 AM EST Narrative [facility] - 12/17/2013 5:30 AM EST Specimen Type: Blood Ingrid Lopez MD LAB BLOOD ORDERABLES Final Res ult [facility] [address] [place] [address], * XR KNEE 1 OR 2 VW [...] EST) Glucose 118 75 - 125 mg/dL [facility] Blood specimen (specimen) 12/16/2013 12:51 PM EST [facility] - 12/16/2013 12:54 PM EST Specimen Type: Blood Historical Provider POINT OF CARE TEST ORDERA BLES Final Result Performing Organization Address [facility] [place] [address], * (ABNORMAL) OR Potassium (12/16/2013 8:58 AM EST) Potassium 3.46(L) 3.5 - 5.3 mmol/L [facility] Venous blood specimen (specimen) 12/16/2013 8:58 AM EST [facility] - 12/16/2013 9:23 AM EST Specimen Type: Venous Ingrid Lopez MD LAB BLOOD ORDERABLES Final Res ult Performing Organization Address [facility] [place] [address], * Protime-INR (12/16/2013 8:58 AM EST) Protime 10.9 9.6 - 11.5 Seconds [facility] INR 1.02 [facility] Comment: US by IF @ 12/16/2013 09:46 Therapeutic Ranges for INR: 2.0-3.0 (PT 20-30) 2.5-3.5 (PT 25-34) Blood specimen (specimen) 12/16/2013 8:58 AM EST Narrative [facility] - 12/16/2013 9:46 AM EST Specimen Type: Blood Ingrid Lopez MD LAB BLOOD ORDERABLES Final Res ult Performing Organization Address [facility] [place] [address], * Type and screen (12/16/2013 8:58 AM EST) ABORh A Rh Negative [facility] Antibody Screen Negative [facility] Blood specimen (specimen) 12/16/2013 8:58 AM EST Narrative [facility] - 12/16/2013 10:08 AM EST Specimen Type: Blood Ingrid Lopez MD BLOOD BANK TEST ORDERABLES Fin al Result Performing Organization Address [facility] de Phone Number [facility] [address] [place] [address], * SCANNED EKG (12/16/2013) [facility] ECG ORDERABLES Final Result * X-RAY CHEST [...] IMPRESSION- No acute cardiopulmonary disease. E: 12/10/2013 Legal Analyst- ALEKSANDRA Nascimento Radiologist- ELKIN JACKSON [facility] Radiologist- ELKIN JACKSON Released Date Time- [...] IMPRESSION- No acute cardiopulmonary disease. E: 12/10/2013 Legal Analyst- ALEKSANDRA Nascimento Radiologist- ELKIN JACKSON [facility] Radiologist- ELKIN JACKSON Released Date Time- 12/10/13 1451 Ingrid Lopez MD [facility] ORDERAB LES Final Result * (ABNORMAL) C-reactive protein (12/10/2013 10:30 AM EST) C-Reactive Protein 10.400(H) 0.000 - 10.000 mg/L [facility] Blood specimen (specimen) 12/10/2013 10:30 AM EST Narrative [facility] - 12/10/2013 11:19 AM EST Specimen Type: Serum 1 Ingrid Lopez MD LAB BLOOD ORDERABLES Final Res ult [facility] [address] [place] [address], * Sedimentation rate (12/10/2013 10:30 AM EST) Pathologist [facility] Sed Rate 5 0 - 30 mm/hr [facility] Blood specimen (specimen) 12/10/2013 10:30 AM EST [facility] - 12/10/2013 11:39 AM EST Specimen Type: Blood Ingrid Lopez MD LAB BLOOD ORDERABLES Final Res ult Performing Organization Address [facility] de Phone Number [facility] [address] [place] [address], * APTT (12/10/2013 10:30 AM EST) Pathologist [facility] PTT 27 24 - 31 Seconds [facility] Comment: US by IF @ 12/10/2013 11:14 PTT = The equivalent PTT values for the therapeutic range of heparin levels at 0.3 to 0.5 U/ml are 45 to 60 seconds. PTT = The equivalent PTT values for the therapeutic range of heparin levels at 0.3 to 0.5 U/ml are 45 to 60 seconds. Blood specimen (specimen) 12/10/2013 10:30 AM EST [facility] - 12/10/2013 11:14 AM EST Specimen Type: Blood Ingrid Lopez MD LAB BLOOD ORDERABLES Final Res ult Performing Organization Address [facility] de Phone Number [facility] [address] [place] [address], * Protime-INR (12/10/2013 10:30 AM EST) Pathologist [facility] Protime 10.7 9.6 - 11.5 Seconds [facility] INR 1.00 [facility] Comment: US by IF @ 12/10/2013 11:14 Therapeutic Ranges for INR: 2.0-3.0 (PT 20-30) 2.5-3.5 (PT 25-34) Blood specimen (specimen) 12/10/2013 10:30 AM EST Narrative [facility] - 12/10/2013 11:14 AM EST Specimen Type: Blood Ingrid Lopez MD LAB BLOOD ORDERABLES Final Res ult Performing Organization Address [facility] de Phone Number [facility] [address] [place] [address], * Hemoglobin A1c (12/10/2013 10:30 AM EST) Hemoglobin A1C 5.7 4.00 - 6.00 % [facility] Comment: DF by IF @ 12/10/2013 11:16 The [employer] recommends maintenance of Hemoglobin A1C at 7.0% or lower. Goals for Hemoglobin A1C reduction may need to be modified if hypoglycemia is a problem. Mean Bld Glu Estim. 111 mg/dL [facility] Blood specimen (specimen) 12/10/2013 10:30 AM EST Narrative [facility] - 12/10/2013 11:16 AM EST Specimen Type: Blood Ingrid Lopez MD LAB BLOOD ORDERABLES Final Res ult Performing Organization Address [facility] de Phone Number [facility] [address] [place] [address], * Basic metabolic panel (12/10/2013 10:30 AM EST) Glucose 96 70 - 100 mg/dL [facility] BUN 16 6 - 20 mg/dL [facility] Creatinine 1.0 0.6 - 1.3 mg/dL [facility] Sodium 142 136 - 145 mmol/L [facility] Potassium 3.8 3.4 - 5.4 mmol/L [facility] Chloride 104 98 - 107 mmol/L [facility] CO2 28 20 - 31 mmol/L [facility] Calcium 9.6 8.7 - 10.4 mg/dL [facility] eGFR 60 ml/min/1.7 32 [facility] Comment: DF by IF @ 12/10/2013 11:21 National Kidney Foundation Guidelines Stage Description GFR 1 Normal or High 90+ 2 Mild decrease 60-89 3 Moderate decrease 30-59 4 Severe decrease 15-29 5 Kidney failure <15 Anion Gap 9 3 - 11 mmol/L [facility] Blood specimen (specimen) 12/10/2013 10:30 AM EST Narrative [facility] - 12/10/2013 11:21 AM EST Specimen Type: Blood Ingrid Lopez MD LAB BLOOD ORDERABLES Final Res ult [id number] [place] [address], * (ABNORMAL) CBC and Differential (12/10/2013 10:30 AM EST) WBC 6.61 3.50 - 10.80 K/[facility] RBC 4.85 3.89 - 5.14 /[facility] Hemoglobin 15.2 11.5 - 15.5 g/dL [facility] Hematocrit 43.6 34.5 - 44.0 % [facility] MCV 89.9 80.0 - 99.0 fL [facility] MCH 31.3(H) 27.0 - 31.0 pg [facility] MCHC 34.9 32.0 - 36.0 g/dL [facility] RDW-CV 13.2 11.3 - 14.5 % [facility] Platelets 330 150 - 450 K/[facility] Neutrophils Absolute 3.79 1.50 - 8.30 [facility] Lymphocytes Absolute 2.03 0.60 - 4.80 K/[facility] Monocytes Absolute 0.48 0.00 - 1.00 /[facility] Eosinophils Absolute 0.26 0.10 - 0.30 K/mcL [facility] Basophils Absolute 0.03 0.00 - 0.20 K/[facility] Neutrophil Rel % 57.3 41.0 - 71.0 % [facility] Lymphocyte Rel % 30.7 24.0 - 44.0 % [facility] Monocyte Rel % 7.3 0.0 - 12.0 % [facility] Eosinophil Rel % 3.9(H) 0.0 - 3.0 % [facility] Basophil Rel % 0.5 0.0 - 1.0 % [facility] Immature Granulocyte Rel % 0.3 0.0 - 0.6 % [facility] Blood specimen (specimen) 12/10/2013 10:30 AM EST Narrative [facility] - 12/10/2013 10:56 AM EST Specimen Type: Blood Ingrid Lopez MD LAB BLOOD ORDERABLES Final Res ult [facility] [address] [place] [address], * Urinalysis Without Microscopic (12/10/2013 10:26 AM EST) Color, UA Yellow [facility] Appearance, UA Clear [facility] pH, UA 5.5 4.5 - 8.0 [facility] Specific [place], UA 1.024 1.001 - 1.030 [facility] Glucose, UA Negative NEGATIVE mg/dL [facility] Ketones, UA Negative NEGATIVE [facility] Bilirubin, UA Negative NEGATIVE [facility] Blood, UA Negative NEGATIVE [facility] Protein, UA Negative NEGATIVE mg/dL [facility] Comment: DF by IF @ 12/10/2013 10:55 This test was previously referred to as Albumin Nitrite, UA Negative NEGATIVE [facility] Leukocytes, UA Negative NEGATIVE [facility] Urobilinogen, UA 0.2 0.2 - 1.0 mg/dL [facility] Urine specimen (specimen) Urine specimen obtained by clean catch procedure / Unknown 12/10/2013 10:26 AM EST Narrative [facility] - 12/10/2013 10:55 AM EST Specimen Type: Urine Specimen Source: Clean Catch Urine Microscopic not indicated. Ingrid Lopez MD URINE ORDERABLES Final Result Performing Organization Address City/State/[facility] Co de Phone Number [facility] [address] [place] [address], documented in this encounter Visit Diagnoses Not on filedocumented in this encounter Care Teams Licensed Prosthetist/Orthotist Relationship Specialty Start Date End Date Michael Baez MD [facility] [address] [place] [address] PCP - General Adolescent Medicine 04/25/23 documented as of this encounter
== END 2025-10-02 23:59 | disposition home or self-care (01) ==
LOC: INF 12:53
PROVIDERS: PCP Internal Medicine Adolescent Medicine; Visit Provider Internal Medicine Adolescent Medicine
DX: M81.0 Age-related osteoporosis without current pathological fracture (principal)
CPT/HCPCS: 96372; J0897

== ENCOUNTER 2025-10-26 12:51 | Outpatient (CLI) | payer MEDICARE, SELFPAY ==
--- OUTSIDE RECORDS SUMMARY | 2025-08-31 12:00 | XMS_ITS | Encounter Summary ---
Author Organization [facility] Address [address] [place] [address] Care Team Providers Care Computer Programmer Name Role Phone Michael Baez MD Primary Care Provider + [phone] Acacia Scott COMMUNICATIONS OFFICER Unavailable [phone] Virgilio Nguyễn MD Unavailable [phone] Encounter Details Date Type Department Care Team (Late st Contact Info) Description 08/31/2025 1:00 PM EDT Pre-Admission Testing [facility] Pre-op Clinic [address], [address] [place] [id number] Anesthesia Record Procedure Summary Procedure Name Responsible Anesthesiologist Anesthesia Start Time Anesthesia Stop Time IR ARTERIAL EMBOLIZATION Jill Barnes CRNA, DNP 09/09/25 1315 09/09/25 1606 Events Date Time Event Comment 09/09/2025 0945 1315 An Start The patient was reevaluated immediately before sedation and remains eligible for anesthesia plan. 1319 An Start Data 1327 An Induction The patient was reevaluated immediately before moderate or deep sedation use and before anesthesia induction. 1330 An Intubation 1339 Anesthesia Ready 1400 ACT Performed 140 1426 ACT Performed 222 1451 ACT Performed 272 1505 ACT Performed 359 1527 ACT Performed 160 1553 An Extubation 1556 an stop data 1606 Handoff to Receiving I compl eted my handoff to the receiving clinician during which we: 1. Identified the patient 2. Identified the responsible provider 3. Reviewed the pertinent medical history 4. Discussed the surgical course 5. Reviewed intra-op anesthesia management and issues during anesthesia 6. Set expectations for post-procedure period 7. Allowed opportunity for questions and acknowledgement of understanding. 1606 An Stop Meds * Agents No agents on file. * Blood No blood administrations on file. Lines, Drains, and Airways Type Details Placement Removal Wound 05/05/25; 1431; Surg ical; Catheter Ent; Arm; Anterior, Distal, Lower, Right; arterial sheath entry site 05/05/25 1431 by Aaron De La Cruz RN Wound 06/22/25; 1114; Yes; Surgical; Catheter Ent; Anterior, Right; sheath site 06/22/25 1114 by Riddhi Kennedy RN ETT Placement Date: 08/26 04/19; Placement Time: 1330 (created via procedure documentation); Mask Ventilation: 2; Technique: Direct laryngoscopy; Type: ETT - single; Single Lumen Tube Size: 7 mm; Cuffed: Yes; Laryngoscope: Fabio; Blade Size: 3; Location: Oral; Grade View: Grade I; Insertion Attempts: 1; Placement Verification: Auscultation, Capnometry; Airway Comments: Atraumatic. No change to dentition. ; Placed by: JOSE; Removal Date: 09/09/25; Removal Time: 1553 09/09/25 1330 by Jill Barnes CRNA, ERIBERTO 09/09/25 1553 by Jill Barnes CRNA, DNP Peripheral IV Placement Date: 08/26 04/19; Placement Time: 1332; Catheter Size: 18 G; Orientation: Right; Location: Saphenous; Site Prep: Alcohol; Local Anesth: None; Technique: Anatomical landmarks; Inserted by: Cameron GARCIA; Insertion Attempts: 1; Removal Date: 09/10/25; Removal Time: 1417 09/09/25 1332 by Jill Barnes CRNA, DNP 09/10/25 1417 by Vane Jalloh RN Arterial Line Placement Date: 08/26 04/19; Placement Time: 1335 (created via procedure documentation); Size: 20 G; Orientation: Left; Location: Radial; Inserted by: Anesthesiologist; Securement: Taped; Patient Tolerance: Tolerated well; Removal Date: 09/10/25; Removal Time: 0830 09/09/25 1335 by Jill Barnes CRNA, ERIBERTO 09/10/25 0830 by Vane Jalloh RN Arterial Sheath 09/09/25; 1402; Yes; 6 Fr.; Right; Femoral; MD Yumi [place]; Injectable; Chlorhexidine ; Yes; 09/09/25; 1543; Per protocol 09/09/25 1402 by Linda Gresham RN 09/09/25 1543 by Linda Gresham RN documented in this encounter Social History [...] money to buy more. Never true 05/08/20 Within the past 12 months, t he [...] any time in the past 12 m [facility], were you homeless or living in a fdc (including now)? 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 0 05/03/2025 CAGE Questionnaire Score 0 025 Utilities Answer Date Recorded In the past 12 months has th e [employer], gas, oil, or water [employer] threatened to shut off services in your home? No 05/08/2025 Comments No Sex and Gender Information Value Date Recorded Sex Assigned at Not on file Legal Sex Female 7:36 PM EDT Gender Identity Not on file Sexual Orientation Not on file documented as of this encounter Functional Status * Calculated C-SSRS Risk Score (Lifetime/Recent) Answer Date of Assessment Author No Risk Indicated 09/09/2025 8:00 PM EDT Awa Tse RN * Question Answer Date of Assessment Author 1. Wish to be (Past 1 Month) No 09/09/2025 8:00 PM EDT Marixa Mejia RN 2. Non-Specific Active Suicidal Thoughts (Past 1 Month) No 09/09/2025 8:00 PM EDT Marixa Mejia RN 6. Suicidal Behavior (Lifetime) No 09/09/2025 8:00 PM EDT Marixa Mejia RN documented as of this encounter Miscellaneous Notes * PAT Evaluation Note - Elizabeth Bernardo PA - 08/31/2025 1:00 PM EDT Images from the original note were not included. HPI Supriya Andres is a 74 y.o. female who presents with an right cerebral artery aneurysm scheduled for IR arterial embolization 09/09/[address] Sotelo Right JONAH aneurysm s/p stage I Y stent assisted coiling June [address] Gallego She is due for Stage II coiling Decision for MAJOR procedure: Right A2 JONAH aneurysm Stage II stent assisted coiling on 09/09/2025. Ordering labs: CMP CBC PT PTT EKG prealbumin to be done at [facility] next week, faxed electronically through [employer] after midnight. Remain on asa and plavix Stop Eliquis 3 days prior (afib, CAD) Past Medical History[1] Family History[2] Social History[3] SURGICAL HISTORY: Surgical History[4] Allergies[5] MEDICATIONS: Current Medications[6] ROS Anesthesia: Date of last anesthetic: 06/22/25 for right stage 1 cerebral aneurysm embolization ETT Cuffed: yes Successful intubation technique: direct laryngoscopy Adjuncts used in placement: intubating stylet Endotracheal tube insertion site: oral Blade: Pineda Blade size: #2 ETT size (mm): 7.0 Cormack-Lehane Classification: grade I - full view of glottis Placement verified by: chest auscultation and capnometry Cuff volume (mL): 6 Measured from: lips ETT to lips (cm): 20 history of previous anesthesia and obstructive sleep apnea (noted in chart but patient denies - does not wear a cpap). Does not have a history of anesthetic complications, malignant hyperthermia and PONV. Cardiovascular: atrial fibrillation (on eliquis), CAD (s/p CABG, stent to LAD with AMY in May 2019 and as recent as 04/30/2020 she was found to have ISRS of the distal portion of the mid LAD with a mildly reduced EF of 45-50%. on plavix and aspirin), CHF (HFpEF), hyperlipidemia, past [place], pulmonary hypertension and valvular heart disease (s/p aortic valve replacement). Does not have angina, dyspnea, dysrhythmias, murmur, [...] last 30 days. Respiratory ROS additional comments: No COPD exacerbations in over a month HEENT: missing teeth.Does not have difficulty swallowing.Does not have hearing [...] no history of radiation Does not have HIV, MRSA or tuberculosis. 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 Endocrine/Metabolic: does not have diabetes mellitus. Does not have thyroid disorder. Lab Results Component Value Date WBC 7.60 06/23/2025 HGB 11.0 (L) 06/23/2025 HCT 33.7 (L) 06/23/2025 MCV 96 06/23/2025 PLT 273 06/23/2025 Lab Results Component Value Date GLUCOSE 124 (H) 06/23/2025 BUN 12 06/23/2025 CREATININE 0.40 (L) 06/23/2025 BCR 30 06/23/2025 NA 141 06/23/2025 K 3.8 06/23/2025 CL 110 (H) 06/23/2025 CO2 22 06/23/2025 CA 9.1 10/30/2019 ALBUMIN 4.1 06/02/2025 ALKPHOS 66 06/02/2025 BILITOT 0.5 06/02/2025 Lab Results Component Value Date HGBA1C 5.3 06/02/2025 Lab Results Component Value Date INR 1.1 06/02/2025 INR 1.1 05/04/2025 INR 1.4 (H) 05/01/2025 08/07/2025 2:14 PM Vitals Systolic 123 Diastolic 75 Heart Rate 58 Height (cm) 162.6 cm Weight (kg) 72.3 kg BMI 27.36 kg/m2 BSA (m2) 1.81 m2 Visit Report Report Visit Vitals OB Status Hysterectomy Smoking Status [...] antegrade flow to the LAD Physical Exam Anesthesia Plan ASA 3 Anesthesia technique(s) discussed with the patient/family: general Comment: OSCAR Phone Screen. Remain on asa and plavix, Stop Eliquis 3 days prior (afib, CAD) per neurosurgery note. EMMY Larsen [1] Past Medical History: Diagnosis Date Abnormal ECG Aneurysm ([facility]/HCC) 05/10/2025 Arthritis 2010 Asthma Atrial fibrillation ([facility]/HCC) CHF (congestive heart failure) (CMS/HCC) 2002 Chronic bronchitis (CMS/[facility]) 2010 COPD (chronic obstructive pulmonary disease) (CMS/[facility]) Coronary artery disease 2001 Gastroesophageal reflux disease without esophagitis Headache 04/26/2025 Hypercholesteremia Hypertension Irregular heart beat 2002 Low back pain 2019 [place] (myocardial infarction) (CMS/[facility]) Obesity 2020 Obstructive sleep apnea (adult) (pediatric) CORNELIA on CPAP Old myocardial infarction History of myocardial infarction Pneumonia 2011 Pulmonary arterial hypertension ([facility]) 2017 Radiculopathy 2019 Restless leg syndrome Vertebral compression fracture ([facility]) 05/26/2022 [2] Family History Problem Relation Name Age of Onset Coronary artery disease Mother Coronary artery disease Father Migraines Sister Kait Reese Anesthesia problems Neg Hx Malig Hyperthermia Neg Hx [3] Social History Tobacco Use Smoking status: Former Current packs/day: 0.00 Average packs/day: 2.0 packs/day for 63.1 years (126.2 ttl pk-yrs) Types: Cigarettes Start date: 11/26/1958 Quit date: 12/2022 Years since quittin.6 Passive exposure: Current Smokeless tobacco: Never Vaping Use Vaping status: Never Used Substance Use Topics Alcohol use: Never Drug use: Never [4] Past Surgical History: Procedure Laterality Date ABLATION OF DYSRHYTHMIC FOCUS AORTIC VALVE REPLACEMENT BILIARY DRAINAGE N/A Atrial Cardioversion from [facility] CARDIAC CATHETERIZATION CARDIOTHORACIC PROCEDURE 2002 CAROTID STENT CATH STENT PLACEMENT/ CATH PLACEMENT OF STENT N/A Cath Stent Placement from [facility] COLON SURGERY N/A Colon Surgery from [facility] CORONARY ANGIOPLASTY CORONARY ARTERY BYPASS GRAFT N/A CABG from [facility] CORONARY STENT PLACEMENT EYE SURGERY April 2025 HYSTERECTOMY N/A Hysterectomy from [facility] KNEE ARTHROPLASTY 2012 ORTHOPEDIC SURGERY 2010 OTHER SURGICAL HISTORY 1982? Hysterectomy TOTAL KNEE ARTHROPLASTY Bilateral Knee Replacement from [facility] [5] Allergies Allergen Reactions Diphenhydramine Anaphylaxis, Hives, Itching, Rash and Other - please document in the comment field Isosorbide Headache and Other - please document in the comment field Penicillins Hives, Itching, Rash and Shortness of breath Tolerated ceftriaxone for 5 days patient reported recently tried medication with any reaction Codeine Hives, Itching, Nausea And Vomiting, Rash and Other - please document in the comment field Hydrocodone Hives Diazepam Other - please document in the comment field states it makes me crazy and antsy , paradoxical reaction Hydromorphone Other - please document in the comment field Lorazepam Other - please document in the comment field and Anxiety states it makes me crazy and antsy , paradoxical reaction [6] Current Outpatient Medications: acetaminophen, Take 1 tablet by mouth every 8 hours as needed for mild pain. Do not crush, chew, orsplit. albuterol, Inhale 2 puffs every 4 hours as needed. aspirin, Take 1 tablet by mouth daily. azelastine, bisoprolol, Take 1 tablet by mouth daily. Breztri Aerosphere, Inhale 2 puffs 2 times a day. budesonide, Take 2 mL by nebulization 2 times a day. Rinse mouth with water after use to reduce aftertaste and incidence of candidiasis. Do not swallow. cetirizine, 1 tablet. clopidogrel, Take 1 tablet by mouth daily. Eliquis, TAKE 1 TABLET BY MOUTH TWO TIMES A DAY empagliflozin, Take 1 tablet by mouth daily. Entresto, escitalopram, Take 1 tablet by mouth daily. Evolocumab, Inject 1 mL under the skin every 14 days. famotidine, Take 1 tablet by mouth 2 times a day as needed. Fasenra Pen, Inject 1 mL under the skin every 56 days. fluticasone, Administer 1 spray into each nostril daily. gabapentin, TAKE 1 CAPSULE BY MOUTH IN THE AFTERNOON AND TAKE 1 OR 2 CAPSULES AT BEDTIME (Patient not taking: Reported on 08/07/2025) gabapentin, Take 1 capsule by mouth 3 times a day. Gemtesa, Take 75 mg by mouth daily. ipratropium-albuterol, Inhale 1 puff 4 times a day as needed for wheezing or shortness of breath. montelukast, Take 1 tablet by mouth nightly. pantoprazole, Take 1 tablet by mouth daily before breakfast. Do not crush, chew, or split. rOPINIRole, Take 1 tablet by mouth 3 times a day. 1 tab in the morning, 1 tab in the evening, 1 tabnightly (Patient not taking: Reported on 08/07/2025) temazepam, Take 1 capsule by mouth nightly. traZODone, Take 1 tablet by mouth nightly. * Preprocedure Instructions - Elizabeth Bernardo PA - 08/31/2025 1:00 PM EDT Home Medication Instructions Current Medications Medication Instructions acetaminophen (Tylenol 8 Hour) 650 MG ER tablet Take as needed albuterol 108 (90 Base) MCG/ACT inhaler Take as needed aspirin 81 MG EC tablet Take morning of surgery per surgeon azelastine (Astelin) 0.1 % nasal spray Take as needed bisoprolol (Zebeta) 5 MG tablet Take morning of surgery Codypmz-Olhzhjmrcxr-Gcrmnsmwcs (Breztri Aerosphere) 160-9-4.8 MCG/ACT aerosol Take morning of surgery budesonide (Pulmicort) 0.5 MG/2ML nebulizer solution Take as needed cetirizine (ZyrTEC) 10 MG tablet Take morning of surgery clopidogrel (Plavix) 75 MG tablet Take night before surgery Eliquis 5 MG tablet Hold 3 days before surgery per surgeon empagliflozin (Jardiance) 10 MG Hold 72 hours before surgery Entresto 24-26 MG tablet Hold day of surgery escitalopram (Lexapro) 20 MG tablet Take morning of surgery Evolocumab (Repatha) 140 MG/ML solution auto-injector autoinjector Hold 14 days before surgery famotidine (Pepcid) 20 MG tablet Take morning of surgery Fasenra Pen 30 MG/ML solution auto-injector injection Hold 14 days before surgery fluticasone (Flonase) 50 MCG/ACT nasal spray Take morning of surgery gabapentin (Neurontin) 300 MG capsule Take morning of surgery Gemtesa 75 MG tablet Take morning of surgery ipratropium-albuterol (Combivent Respimat) 20-100 MCG/ACT inhaler Take as needed montelukast (Singulair) 10 MG tablet Take night before surgery pantoprazole (Protonix) 40 MG EC tablet Take morning of surgery temazepam (Restoril) 15 MG capsule Take night before surgery traZODone (Desyrel) 50 MG tablet Take night before surgery General Preoperative Instructions You will be called the business day before surgery with your arrival time Do not eat or drink anything after midnight except water with your medications unless other instructions are given No alcohol or smoking prior to surgery Arrive on time to avoid delays Parking/Registration procedure explained You MUST have a responsible adult available for transport to and from hospital Visitation policy for the day of surgery reviewed Bring insurance card, photo ID, along with power of automation and controls supervisor, guardianship or advanced directives if applicable Do not bring money, jewelry or other valuables Hibiclens bathing instructions reviewed if applicable Notify surgeon of fever, illness, any changes or if you decide not to have surgery Diabetes Instructions (If applicable) Take diabetes medication as instructed You may have up to 4 ounces of apple juice 2 hours prior to arrival for surgery for low glucose documented in this encounter Plan of Treatment Upcoming Encounters Date Type Department Care Team (Late st Contact Info) Description 03/15/2026 11:20 AM EDT [facility] Visit [facility] [address], [address] [place] [address] Kylah Alejandra PA [address] [place] [address] documented as of this encounter Visit Diagnoses Not on filedocumented in this encounter Additional Health Concerns Assessment Noted Time A fall risk assessment has been complete d for the patient 08/07/2025 2:23 PM EDT A Body Mass Index follow-up plan has been documented for the patient 08/07/2025 4:31 PM EDT documented as of this encounter Care Teams Computer Programmer Relationship Specialty Start Date End Date Michael Baez MD [address] [place] [address] PCP - General 04/08/21 Acacia Scott APRN [address] [place] [address] Nurse Practitioner Cardiology 03/27/22 Virgilio Nguyễn MD [address] [place] [address] Referring Physician 10/07/24 documented as of this encounter
--- OUTSIDE RECORDS SUMMARY | 2025-09-09 12:15 | XMS_ITS | Encounter Summary ---
Author Organization Healthcare Address [address] [id number] Care Team Providers Care Teacher Selection Specialist Name Role Phone Michael Baez MD Primary Care Provider [phone] Acacia Scott WRINGER MACHINE OPERATOR Unavailable [phone] Virgilio Nguyễn MD Unavailable [phone] Reason for Visit * Auth/Cert (Routine) Specialty Diagnoses / Procedures Referred By Conteffie t Referred To Contact Diagnoses Cerebral aneurysm Anders Sotelo MD [address] [facility] [address] [place] [address] Phone: tel: fax: [facility] OPER[facility] [address] [place] [address] Phone: tel: Referral ID Status Reason Start Date Expiration Date Visits Re quested Visits Authorized [id number] 1 1 Encounter Details Date Type Department Care Team (Late st Contact Info) Description 09/09/2025 1:15 PM EDT Anesthesia Event [facility] Interventional Radiology [address] [place] [address] Jill Barnes CRNA, DNP [address] [place] [address] Luciano Pratt MD [address] [place] [address] Anesthesia Record Procedure Summary Procedure [...] were you homeless or living in a group home (including now)? No 05/08/2025 CAGE ASSESSMENT [...] drink first t pippa in the morning (EYE-STOCK WETTER) to 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 0 05/03/2025 CAGE Questionnaire Score 0 025 Utilities Answer Date Recorded In the past 12 months has th e eucl3D, gas, oil, or water company threatened to [...] AM EDT Addendum created 09/23/25 0708 by Lucaino Pratt MD Clinical Note Signed, Intraprocedure Blocks [...] and Staff Patient location during procedure: OR DOCTOR OF OSTEOPATHY: Jill Barnes CRNA, DNP Performed: DOCTOR OF OSTEOPATHY Patient Condition Indications for airway management: anesthesia [...] Cerebral aneurysm (+) Coronary artery disease involving [place] coronary artery of [place] heart without angina pectoris (+) Hypertension (+) [...] nasal spray bisoprolol (ZEBETA) 5 mg, Daily Mhkjags-Pobkrmjqbzk-Qmlpiavelv (Breztri Aerosphere) 160-9-4.8 MCG/ACT aerosol 2 puffs, [...] ABG No results found for: PHART , UKW4NYD , PO2ART , SO2ART , BEART , UDG0CYC , HCTART , SODIUMART , POTASSIUMART , [...] slightly worse. PFTs No results found for: VDZ1JAH , VFK7HPWK , JNM0MBH , FVCPRED BP Readings from Last 5 [...] Plan ASA 3 Plan was reviewed with: DOCTOR OF OSTEOPATHY Anesthesia technique(s) discussed with the patient/family: general [...] History: Diagnosis Date Abnormal ECG Aneurysm ([facility]) 05/10/2025 Arthritis 2010 Asthma Atrial fibrillation ([facility]) CHF (congestive heart failure) 2003 Chronic bronchitis ([facility]) 2010 COPD (chronic obstructive pulmonary disease) Coronary artery disease 2001 Gastroesophageal reflux disease without esophagitis Headache 04/26/2025 Hypercholesteremia Hypertension Irregular heart beat 2002 Low back pain 2019 VT (myocardial infarction) Obesity 2019 Obstructive sleep apnea (adult) (pediatric) CORNELIA on CPAP Old myocardial infarction History of myocardial infarction Pneumonia 2010 Pulmonary arterial hypertension 2017 Radiculopathy 2019 Restless [...] REPLACEMENT BILIARY DRAINAGE N/A Atrial Cardioversion from [facility] CARDIAC CATHETERIZATION CARDIOTHORACIC PROCEDURE 2002 CAROTID STENT CATH STENT PLACEMENT/ CATH PLACEMENT OF STENT N/A Cath Stent Placement from [facility] COLON SURGERY N/A Colon Surgery from [facility] CORONARY ANGIOPLASTY CORONARY ARTERY BYPASS GRAFT N/A CABG from [facility] CORONARY STENT PLACEMENT EYE SURGERY April 2025 HYSTERECTOMY N/A Hysterectomy from [facility] KNEE ARTHROPLASTY 2012 ORTHOPEDIC SURGERY 2010 OTHER SURGICAL HISTORY 1982? Hysterectomy TOTAL KNEE ARTHROPLASTY Bilateral Knee Replacement from [facility] [6] Social History Tobacco Use Smoking status: [...] Description 03/15/2026 11:20 AM EDT Office Visit [place] [facility] [address] [place] [address] Kylah Alejandra PA [address] [place] [address] documented as of this encounter Procedures Procedure Name Priority Date/Time Associated Diagnosis Comments ANESTHESIA ARTERIAL LINE PLACEMENT Routine 09/09/2025 1:35 PM EDT PB ANESTHESIA PLACEHOLDER Routine 09/09/2025 1:30 PM EDT NE AN ELECTIVE ENDOTRACHEAL AIRWAY Routine 09/09/2025 1:30 [...] ORDERABLES Edited Re sult - Final * NE AN ELECTIVE ENDOTRACHEAL AIRWAY, PB ANESTHESIA PLACEHOLDER (09/09/2025 1:30 PM EDT) Narrative Jill Barnes CRNA, DNP - 09/09/2025 1:30 PM EDT Jill Barnes CRNA, DNP 09/09/2025 1:43 PM Airway Date/Time: 09/09/2025 1:30 PM Reason: elective Airway not difficult General Information and Staff Patient location during procedure: OR DOCTOR OF OSTEOPATHY: Jill Barnes CRNA, DNP Performed: DOCTOR OF OSTEOPATHY Patient Condition Indications for airway management: anesthesia [...] documented as of this encounter Care Teams Teacher Selection Specialist Relationship Specialty Start Date End Date Michael Baez MD [address] [place] [address] PCP - General 04/08/21 Acacia Scott APRN [address] [place] [address] Nurse Practitioner Cardiology 03/27/22 Virgilio Nguyễn MD [address] [place] [address] Referring Physician 10/07/24 documented as of this encounter
--- OUTSIDE RECORDS SUMMARY | 2025-09-09 22:55 | XMS_ITS | Encounter Summary ---
Author Organization Healthcare Address [address] [place] [address] Care Team Providers Care Veneer Glue Jointer Feedback Name Role Phone Michael Baez MD Primary Care Provider [phone] Acacia Scott REVIEW SPECIALIST Unavailable [phone] Virgilio Nguyễn MD Unavailable [phone] Reason for Referral * Consultation (Routine) - Closed Specialty Diagnoses / Procedures Referred By Terrence prasad Referred To Contact Neurosurgery Diagnoses Cerebral aneurysm Anders Sotelo MD [address] [address] Phone: tel: fax: Referral ID Status Reason Start Date Expiration Date V isits Requested Visits Authorized [id number] Closed Specialty Services Required 09/10/2025 03/12/2027 1 1 Scheduling Instructions Please schedule with Dr. Sotelo's clinic for post-stent follow-up * Imaging (Routine) - Closed Specialty Diagnoses / Procedures Referred By Terrence prasad Referred To Contact Radiology Diagnoses Aneurysm (CMS/HCC) Procedures IR Arterial Embolization Anders Sotelo MD [address] [address] Phone: tel: fax: Referral ID Status Reason Start Date Expiration Date Visits Re quested Visits Authorized [id number] Closed 08/07/2025 02/06/2027 1 1 Reason for Visit * Auth/Cert (Routine) Specialty Diagnoses / Procedures Referred By Contac t Referred To Contact Diagnoses Cerebral aneurysm Anders Sotelo MD [address] [address] Phone: tel: fax: [facility] [address] [place] [address] Phone: tel: Referral ID Status Reason Start Date Expiration Date Visits Re quested Visits Authorized [id number] 1 1 Encounter Details Date Type Department Care Team (Latest Contact Info) Description 09/09/2025 11:55 PM EDT - 09/10/2025 2:18 PM EDT Hospital Encounter [facility] [address] [place] [phone] Anders Sotelo MD [address] [address] Sean Barnes, RN None None Aneurysm (CMS/HCC) (Primary Dx); Pre-op exam; Cerebral aneurysm Discharge [...] any time in the past 12 m [facility], were you homeless or living in [...] drink first t pippa in the morning (EYE-FLUTE GRINDER) to 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 0 05/03/2025 CAGE Questionnaire Score 0 025 Utilities Answer Date Recorded In the past 12 months has th e [employer], gas, oil, or water company threatened to [...] and incidence of candidiasis. Do not swallow. Eliquis 5 MG tablet Take 1 tablet by mouth 2 times a day. 180 tablet 3 09/14/2025 Entresto 24-26 MG tablet 08/05/2025 escitalopram (Lexapro) 20 MG tablet Take 1 tablet by mouth daily. famotidine (Pepcid) 20 MG tablet Take 1 [...] tablet Take 1 tablet by mouth nightly. cetirizine (ZyrTEC) 10 MG tablet 1 tablet. 01/30/2025 fluticasone-salme terol (Advair Diskus) 500-50 MCG/ACT diskus inhaler inhale 1 puff by mouth 2 times a day 08/27/2025 ipratropium-albut willow (Duo-Neb) 0.5-2.5 mg/3 mL nebulizer solution INHALE THE CONTENTS OF 1 VIAL VIA NEBULIZER EVERY 8 HOURS 08/06/2025 aspirin 81 MG EC tabletIndications :Cerebral aneurysm Take 1 tablet by mouth daily. 30 tablet 11 08/07/2025 clopidogrel (Plavix) 75 MG tablet Take 1 tablet by mouth daily. Evolocumab (Repatha) 140 MG/ML solution auto-injector autoinjector Inject 1 mL under the skin every 14 days. 6 mL 1 05/07/2025 empagliflozin (Jardiance) 10 MG Take 1 tablet by mouth daily. 30 tablet 05/07/2025 5 documented as of this encounter Miscellaneous [...] EDTEncounter addended by: Kelly Heredia RN on: 10/19/2025 5:35 PM Actions taken: Utilization Review saved, Utilization Review data saved * Significant Event - Rose Dang APRN, DNP - 09/10/2025 11:47 AM EDT No further ICU needs at this time; [facility] will sign off. Thank you for [...] Baez MD [address] [place] / [place] [address] Referring provider name and address: Anders Sotelo MD [address] [place] [address] Chief Concern, Brief History of Present Illness, and Hospital Course Patient presented to on 09/09/25 for a scheduled procedure. The patient was previously seen and evaluated as an outpatient and found to have R A2 aneurysm. [facility]-assisted coiling. [...] Breztri Aerosphere 160-9-4.8 MCG/ACT aerosol Generic drug: Cepubpy-Mayeqijxnws-Wdxfhlygcd Inhale 2 puffs 2 times a day. [...] Your Medications These medications were sent to [facility] [address] [address] [address], [facility] [address] Eliquis 5 MG tablet Discharge Diagnosis Medical Problems Active and Resolved Hospital Problems Hospital PAF (paroxysmal atrial fibrillation) Coronary artery disease involving tuolumne coronary artery of tuolumne heart without angina pectoris Hypertension Mixed hyperlipidemia [...] Follow up with: Neurosurgery - Address/Phone Number: [facility], [address] [id number] #[phone]. Outpatient Follow-Up No future appointments. Test Results [...] from the original note were not included. [id number] Apixaban IMPORTANT WARNING: If you have atrial [...] doctor or pharmacist will give you the route inspector's patient information sheet (Medication Guide) when you begin treatment with apixaban and each time you refill your prescription. Read the information carefully and ask your doctor or pharmacist if you have any questions. You can also visit the Food and Drug Administration (FDA) website (https://www.fda.gov/Drugs/DrugSafety/kmr366655.htm) or the route inspector's website to obtain the Medication Guide. Talk [...] or herbal products may interact with apixaban: Jeanne's wort; aspirin; NSAIDs (such as ibuprofen [Advil??, [...] be awakened, immediately call emergency services at 797. Symptoms of overdose may include the following: [...] of all of the prescription and nonprescription (dzga-bbr-fmgddyd) medicines, vitamins, minerals, and dietary supplements you [...] or pharmacist about specific clinical use. The [employer] represents that the information provided hereunder was formulated with a reasonable standard of care, and in conformity with professional standards in the field. The [employer] makes no representations or warranties, express or implied, including, but not limited to, any implied warranty of merchantability and/or fitness for a particular purpose, with respect to such information and specifically disclaims all such warranties. Users are advised that decisions regarding drug therapy are complex medical decisions requiring the independent, informed decision of an appropriate health associate director career services, and the information is provided for informational purposes only. The entire monograph for a drug should be reviewed for a thorough understanding of the drug's actions, uses and side effects. The [employer] does not endorse or recommend the use of any drug.The information is not a substitute for medical care. AHFS?? Patient Medication Information?. ?? Copyright, 2023. The [employer]??, [address], [address], [place], [place]. All Rights Reserved. Duplication for commercial use must be authorized by [facility]. Selected Revisions: January 10, 2025. AHFS?? Patient Medication Information?. ?? Copyright, 2024 * H&P - Rose Dang APRN, DNP - 09/09/2025 5:20 PM EDTAssociated Order(s): Critical Care Post-Procedure Diagnose(s): Aneurysm ([facility]) Critical Care Performed by: Rose Dang APRN, [...] PMH of CAD, CHF, afib, HTN, HLD, IA, PAH, COPD, CORNELIA, GERD, RLS who presents [...] atrial fibrillation) 02/13/2019 Coronary artery disease involving tuolumne coronary artery of tuolumne heart without angina pectoris 05/13/2019 Hypertension 05/02/2019 Mixed hyperlipidemia 08/28/2021 RLS (restless legs syndrome) 08/15/2022 Gastroesophageal reflux disease without esophagitis 07/18/2022 Cerebral aneurysm 06/22/2025 COPD (chronic obstructive pulmonary disease) 06/22/2025 Anxiety 06/22/2025 Insomnia 06/22/2025 Resolved Ambulatory Problems Diagnosis Date Noted Chronic obstructive lung disease 09/11/2017 Compression fracture of vertebra ([facility]) 05/13/2019 Hypercholesterolemia 01/02/2020 Palpitations 05/02/2019 Sleep apnea 05/02/2019 COPD exacerbation ([facility]) 08/15/2022 Elevated troponin 08/15/2022 Abnormal echocardiogram 10/02/2022 Muscle cramps 04/10/2024 Arthritis of right hip 10/07/2024 Acute coronary syndrome 10/07/2024 CAP (community acquired pneumonia) 05/02/2025 CHF exacerbation 05/02/2025 Brain aneurysm 05/02/2025 Community acquired pneumonia, unspecified laterality 05/02/2025 Abrasion of left cornea 06/22/2025 Past Medical History: Diagnosis Date Abnormal ECG Aneurysm ([facility]) 05/10/2025 Arthritis 2011 Asthma Atrial fibrillation ([facility]) CHF (congestive heart failure) 2003 Chronic bronchitis ([facility]) 2011 Coronary artery disease 2002 Headache 04/26/2025 Hypercholesteremia Irregular heart beat 2002 Low back pain 2019 IA (myocardial infarction) Obesity 2020 Obstructive sleep apnea [...] 0.1 % nasal spray 07/04/24 Provider, Historical Cnolrja-Btfibumbkuu-Mmembocnem (Breztri Aerosphere) 160-9-4.8 MCG/ACT aerosol Inhale 2 [...] pack-year smoking history. She has been exposed to tobacco smoke. She has never used smokeless tobacco. [...] Eliquis per NSGY Coronary artery disease involving tuolumne coronary artery of tuolumne heart without angina pectoris Present on Admission: [...] Yes Continue home trazodone as appropriate Rose Dang, REVIEW SPECIALIST, DNP [1] Past Surgical History: Procedure Laterality Date ABLATION OF DYSRHYTHMIC FOCUS AORTIC VALVE REPLACEMENT BILIARY DRAINAGE N/A Atrial Cardioversion from [facility] CARDIAC CATHETERIZATION CARDIOTHORACIC PROCEDURE 2002 CAROTID STENT CATH STENT PLACEMENT/ CATH PLACEMENT OF STENT N/A Cath Stent Placement from [facility] COLON SURGERY N/A Colon Surgery from [facility] CORONARY ANGIOPLASTY CORONARY ARTERY BYPASS GRAFT N/A CABG from [facility] CORONARY STENT PLACEMENT EYE SURGERY April 2025 HYSTERECTOMY N/A Hysterectomy from [facility] KNEE ARTHROPLASTY 2012 ORTHOPEDIC SURGERY 2010 OTHER SURGICAL HISTORY 1982? Hysterectomy TOTAL KNEE ARTHROPLASTY Bilateral Knee Replacement from [facility] [2] Social History Tobacco Use Smoking Status [...] 09/09/2025 10:15 AM EDT Date: 09/09/25 Location: [facility] Name: Susannah Andres, : 1950, Diagnoses: Pre-op Diagnosis JONAH aneurysm Post-op Diagnosis same Procedure(s): DSA with embolization Attending Surgeon(s): Anders Sotelo MD Technician Support Association(s): Yumi Jefferson MD Anesthesia: * No anesthesia type entered * ASA: III Blood Administration: Blood Product Administration History None Estimated Blood Loss: 50 mL Drains: * None in log * Implants Type Name Action Serial No. STENT WITHOUT TIP ATLAS 3MM X 24MM - [id number] Implanted HIP STEM INZONE DETACHMENT - [id number] Implanted COIL DETACH XL SOFT 18Y70GL - [id number] Implanted COIL DETACH XL SOFT 20H70GY - [id number] Implanted COIL DETACH XL SOFT 58V37ES - [id number] Implanted COIL DETACH XL SOFT 74V82KS - [id number] Implanted COIL DETACH XL SOFT 8X30CM - [id number] Implanted COIL DETACH XL SOFT 7X20CM - [id number] Implanted COIL DETACH XL SOFT 7X20CM - [id number] Implanted COIL DETACH XL SOFT 6X20CM - [id number] Implanted COIL 360 ULTRA 5MM-15CM - [id number] Implanted COIL 360 ULTRA 5MM-15CM - [id number] Implanted CLOSURE DEVICE VIP ANGIOSEAL 8 FR - [id number] Implanted Specimen: Findings: Right anterior cerebral artery [...] EDT Associated Problem(s): Coronary artery disease involving tuolumne coronary artery of tuolumne heart without angina pectoris Resume home medications [...] (CMS/HCC) 05/10/2025 Arthritis 2011 Asthma Atrial fibrillation ([facility]) CHF (congestive heart failure) 2003 Chronic bronchitis (CMS/[facility]) 2010 COPD (chronic obstructive pulmonary disease) Coronary artery disease 2001 Gastroesophageal reflux disease without esophagitis Headache 04/26/2025 Hypercholesteremia Hypertension Irregular heart beat 2002 Low back pain 2019 IA (myocardial infarction) Obesity 2019 Obstructive sleep apnea (adult) (pediatric) CORNELIA on CPAP Old myocardial infarction History of myocardial infarction Pneumonia 2010 Pulmonary arterial hypertension 2017 Radiculopathy 2019 Restless leg syndrome Vertebral compression fracture 05/26/2022 [2] Past Surgical History: Procedure Laterality Date ABLATION OF DYSRHYTHMIC FOCUS AORTIC VALVE REPLACEMENT BILIARY DRAINAGE N/A Atrial Cardioversion from [facility] CARDIAC CATHETERIZATION CARDIOTHORACIC PROCEDURE 2002 CAROTID STENT CATH STENT PLACEMENT/ CATH PLACEMENT OF STENT N/A Cath Stent Placement from [facility] COLON SURGERY N/A Colon Surgery from [facility] CORONARY ANGIOPLASTY CORONARY ARTERY BYPASS GRAFT N/A CABG from [facility] CORONARY STENT PLACEMENT EYE SURGERY April 2025 HYSTERECTOMY N/A Hysterectomy from [facility] KNEE ARTHROPLASTY 2011 ORTHOPEDIC SURGERY 2010 OTHER SURGICAL HISTORY 1982? Hysterectomy TOTAL KNEE ARTHROPLASTY Bilateral Knee Replacement from [facility] [3] Family History Problem Relation Name Age [...] Visit [place] [facility] [address] [place] [address] Kylah Alejandra, EMMY [address] [place] [address] Scheduled Referrals Name Type Priority Associated Diagnoses [...] PANEL, PLASMA Routine 09/09/2025 5:50 PM EDT [facility], E/M 30-74 MINUTES Routine 09/09/2025 5:20 PM EDT Aneurysm (CMS/HCC) OXYGEN THERAPY Routine 09/09/2025 3:52 PM EDT OXYGEN THERAPY Routine 09/09/2025 3:51 PM EDT IR ARTERIAL EMBOLIZATION Routine 09/09/2025 3:44 PM EDT Aneurysm (CMS/HCC) documented in this encounter Results * Lavender Top (09/10/2025 4:45 AM EDT) Extra Hold for add-ons 09/10/2025 8:02 AM EDT [facility] Comment:Auto resulted. Blood Venous blood specimen / Unknown 09/10/2025 4:45 AM EDT 09/10/2025 5:05 AM EDT us Anders Sotelo MD LAB BLOOD ORDERABLES Final Re sult Performing Organization Address City/[facility]/ZIP Co de Phone Number [facility] [address] [place] [address] * Light Green Top (09/10/2025 4:45 AM EDT) Extra Hold for add-ons 09/10/2025 8:02 AM EDT [facility] Comment:Auto resulted. Blood Venous blood specimen / Unknown 09/10/2025 4:45 AM EDT 09/10/2025 5:05 AM EDT us Anders Sotelo MD LAB BLOOD ORDERABLES Final Re sult Performing Organization Address [facility] Co de Phone Number [facility] [address] [place] [address] * (ABNORMAL) Blood gas panel, arterial (09/09/2025 5:51 PM EDT) pH, Arterial 7.32 7.31 - 7.42 LAB HEMATOLOGY METHOD 09/09/2025 5:59 PM EDT [facility] pCO2, Arterial 44 35 - 48 mmHg LAB HEMATOLOGY METHOD 09/09/2025 5:59 PM EDT [facility] pO2, Arterial 128 >70 mmHg LAB HEMATOLOGY METHOD 09/09/2025 5:59 PM EDT [facility] SO2, Measured, Arterial 99(H) 94 - 98 % LAB HEMATOLOGY METHOD 09/09/2025 5:59 PM EDT [facility] Base Excess, Arterial -3.7(L) -2.0 - 3.0 mmol/L LAB HEMATOLOGY METHOD 09/09/2025 5:59 PM EDT [facility] Bicarbonate, Calculated, Arterial 22 22 - 26 mmol/L LAB HEMATOLOGY METHOD 09/09/2025 5:59 PM EDT [facility] Hematocrit, Whole Blood 33.8(L) 34.0 - 45.0 % LAB HEMATOLOGY METHOD 09/09/2025 5:59 PM EDT [facility] Sodium, Whole Blood 143 136 - 145 mmol/L LAB HEMATOLOGY METHOD 09/09/2025 5:59 PM EDT [facility] Potassium, Whole Blood 4.1 3.6 - 4.9 mmol/L LAB HEMATOLOGY METHOD 09/09/2025 5:59 PM EDT [facility] Chloride, Whole Blood 114(H) 97 - 107 mmol/L LAB HEMATOLOGY METHOD 09/09/2025 5:59 PM EDT [facility] Glucose, Whole Blood 114(H) 74 - 99 mg/dL LAB HEMATOLOGY METHOD 09/09/2025 5:59 PM EDT [facility] Ionized Calcium, Whole Blood 4.4(L) 4.6 - 5.1 mg/dL LAB HEMATOLOGY METHOD 09/09/2025 5:59 PM EDT [facility] Lactate, Arterial, Whole Blood 0.7 0.5 - 1.6 mmol/L LAB HEMATOLOGY METHOD 09/09/2025 5:59 PM EDT [facility] Blood Arterial blood specimen / Unknown Arterial Puncture / Unknown 09/09/2025 5:51 PM EDT 09/09/2025 5:58 PM EDT us Rose Dang REVIEW SPECIALIST, DNP LAB BLOOD ORDERABLES Fi nal Result [facility] [address] [place] [address] * (ABNORMAL) Phosphorus, Plasma (09/09/2025 5:50 PM EDT) Phosphorus, Plasma 5.6(H) 2.5 - 4.5 mg/dL 09/09/2025 6:38 PM EDT [facility] Blood Venous blood specimen / Unknown Venipuncture / Unknown 09/09/2025 5:50 PM EDT 09/09/2025 6:06 PM EDT Rose Dang APRN, ERIBERTO LAB BLOOD ORDERABLES Fi nal Result Performing Organization Address City/[facility]/ZIP Co de Phone Number [facility] [address] [place] [address] * (ABNORMAL) Magnesium, Plasma (09/09/2025 5:50 PM EDT) Magnesium, Plasma 1.5(L) 1.9 - 2.4 mg/dL 09/09/2025 6:38 PM EDT [facility] Blood Venous blood specimen / Unknown Venipuncture / Unknown 09/09/2025 5:50 PM EDT 09/09/2025 6:06 PM EDT Rose Dang APRN, ERIBERTO LAB BLOOD ORDERABLES Fi nal Result Performing Organization Address [facility] Co de Phone Number [facility] [address] [place] [address] * (ABNORMAL) Comprehensive metabolic panel (09/09/2025 5:50 PM EDT) Glucose, Plasma 112(H) 74 - 99 mg/dL 09/09/2025 6:38 PM EDT [facility] BUN, Plasma 8 8 - 23 mg/dL 09/09/2025 6:38 PM EDT [facility] Creatinine, Plasma 0.74 0.60 - 1.10 mg/dL 09/09/2025 6:38 PM EDT [facility] BUN/Creatinine Ratio 11 09/09/2025 6:38 PM EDT [facility] Sodium, Plasma 142 136 - 145 mmol/L 09/09/2025 6:38 PM EDT [facility] Potassium, Plasma 4.3 3.6 - 4.9 mmol/L 09/09/2025 6:38 PM EDT [facility] Chloride, Plasma 111(H) 97 - 107 mmol/L 09/09/2025 6:38 PM EDT [facility] CO2, Plasma 20(L) 22 - 29 mmol/L 09/09/2025 6:38 PM EDT [facility] Anion Gap 11 6 - 16 mmol/L 09/09/2025 6:38 PM EDT [facility] Total Calcium, Plasma 7.8(L) 8.9 - 10.2 mg/dL 09/09/2025 6:38 PM EDT [facility] Total Protein 5.8(L) 6.3 - 7.9 g/dL 09/09/2025 6:38 PM EDT [facility] Albumin, Plasma 3.5 3.5 - 5.2 g/dL 09/09/2025 6:38 PM EDT [facility] AST, Plasma 22 10 - 35 U/L 09/09/2025 6:38 PM EDT [facility] ALT, Plasma 13 10 - 35 U/L 09/09/2025 6:38 PM EDT [facility] Alkaline Phosphatase, Plasma 51 46 - 142 U/L 09/09/2025 6:38 PM EDT [facility] Total Bilirubin, Plasma 0.6 0.2 - 1.1 mg/dL 09/09/2025 6:38 PM EDT [facility] eGFRcr 85.6 mL/min/1.7 3m*2 09/09/2025 6:38 PM EDT [facility] Comment:Reported eGFRcr in m L/min/1.73m2 is based the CKD-EPI 2020 equation that does not use a race coefficient. Blood Venous blood specimen / Unknown Venipuncture / Unknown 09/09/2025 5:50 PM EDT 09/09/2025 6:06 PM EDT us Rose Dang REVIEW SPECIALIST, DNP LAB BLOOD ORDERABLES Fi nal Result [facility] [address] [place] [address] * (ABNORMAL) CBC W/O Differential (09/09/2025 5:50 PM EDT) WBC Count 5.96 3.70 - 10.30 10*3/uL LAB HEMATOLOGY METHOD 09/09/2025 6:20 PM EDT [facility] RBC Count 3.76(L) 3.90 - 5.20 10*6/uL LAB HEMATOLOGY METHOD 09/09/2025 6:20 PM EDT [facility] HGB 11.2 11.2 - 15.7 g/dL LAB HEMATOLOGY METHOD 09/09/2025 6:20 PM EDT [facility] HCT 34.8 34.0 - 45.0 % LAB HEMATOLOGY METHOD 09/09/2025 6:20 PM EDT [facility] Platelet Count 235 155 - 369 10*3/uL LAB HEMATOLOGY METHOD 09/09/2025 6:20 PM EDT [facility] MCV 93 79 - 98 fL LAB HEMATOLOGY METHOD 09/09/2025 6:20 PM EDT [facility] MCH 29.8 26.0 - 32.0 pg LAB HEMATOLOGY METHOD 09/09/2025 6:20 PM EDT [facility] MCHC 32.2 30.7 - 35.5 g/dL LAB HEMATOLOGY METHOD 09/09/2025 6:20 PM EDT [facility] RDW 14.6(H) 11.5 - 14.5 % LAB HEMATOLOGY METHOD 09/09/2025 6:20 PM EDT [facility] MPV 9.3 8.8 - 12.5 fL LAB HEMATOLOGY METHOD 09/09/2025 6:20 PM EDT [facility] nRBC 0.0 <=0.0 per 100 WBCs LAB HEMATOLOGY METHOD 09/09/2025 6:20 PM EDT [facility] Blood Venous blood specimen / Unknown Venipuncture / Unknown 09/09/2025 5:50 PM EDT 09/09/2025 6:12 PM EDT us Rose Dang APRN, DNP LAB BLOOD ORDERABLES Fi nal Result [facility] [address] [place] [address] * [place] [facility], E/M 30-74 MINUTES (09/09/2025 5:20 [...] and interventions and review of old charts Rose Dang APRN, DNP IN CLINIC/BEDSIDE ORDER [...] 4:38 PM EDT CLINICAL INDICATION: This patient, USSANNAH ANDRES, is a 74 years old Female [...] stent assisted coil embolization. COMPARISON: DSA 06/22/2025 RAILROAD PASSENGER AGENT: Anders Sotelo M.D. SECONDARY COMMUTATOR OPERATOR: Yumi Jefferson MD LENGTH OF PROCEDURE: 57 [...] femoral artery was then accessed with 4 Faroese micropuncture set, and a 4 Faroese sheath advanced over a J-wire. The sheath [...] 90 cm BMX 81 guide catheter.A 5 Faroese La 2 catheter was advanced over a 0.035 Ang[place] guidewire through the sheath and into the [...] obtained. At this point, a Milena 5 beninese intermediate distal access catheter, SL-10 microcatheter, and Buzz 0.014 microwire were coaxially advanced through the guide catheter into the right MCA artery for the support needed to advance the intermediate catheter. The microwire microcatheter were navigated into the right JONAH A1 segment, the microwire was navigated through the aneurysm into the right pericallosal artery. The microwire was removed. A Neuroform Elburn stent measuring 3 mm x 24 mm [...] the puncture site was closed using 8 beninese angioseal. Patient tolerated the procedure and she [...] stent assisted coil embolization. COMPARISON: DSA 06/22/2025 RAILROAD PASSENGER AGENT: Anders Sotelo M.D. SECONDARY COMMUTATOR OPERATOR: Yumi Jefferson MD LENGTH OF PROCEDURE: 57 [...] common femoral artery wasthen accessed with 4 Faroese micropuncture set, and a 4 Faroese sheathadvanced over a J-wire. The sheath was connected to a regulated,pressurized infusion of heparinized saline. During access, ultrasoundguidance was used to confirm vessel patency, and to visualize the vascularneedle entry during access. Ultrasound images were included in the finalreport. Using roadmap technique, the sheath was exchanged over a 145cm J-wire fora 90 cm BMX 81 guide catheter.A 5 Faroese Wrnch 2 catheter was advancedover a 0.035 Angle[place] guidewire through the sheath and into thesubclavian [...] cerebral artery A2 segment aneurysm note. Aneurysm xxazmjuk99.4 mm x 14.1 mm with 4.6 mm [...] cerebral artery A2 segment aneurysm note. Aneurysm ftpysijk09.4 mm x 14.1 mm with 4.6 mm [...] obtained. At this point, a Milena 5 beninese intermediate distal accesscatheter, SL-10 microcatheter, and Buzz 0.014 microwire werecoaxially advanced through the guide catheter into the right MCA arteryfor the support needed to advance the intermediate catheter. The microwiremicrocatheter were navigated into the right JONAH A1 segment, the microwirewas navigated through the aneurysm into the right pericallosal artery. Themicrowire was removed. A Neuroform Elburn stent measuring 3 mm x 24 mm [...] and thepuncture site was closed using 8 beninese angioseal. Patient tolerated theprocedure and she was [...] fibrillation) Atrial fibrillation Coronary artery disease involving [place] coronary artery of [place] heart without angina pectoris Hypertension Unspecified essential [...] at 1615, Until Sun09/10/25 at 1619, Routine, Mild + Pain > or =1: CPOT, DVPRS, FLACC, PAINAD, NPASS, NRS, Retana-Alvarez Faces; > or =2: NIPS , headaches, fever Given 09/10/2025 12:18 PM EDT [...] Araseli 09/10/25 at 1215, Until Discontinued, Routine clopidogrel [...] Araseli 09/10/25 at 1215, Until Discontinued, Routine gabapentin (Neurontin) [...] modification) on Sun09/10/25 at 1215, Until Discontinued montelukast (Singulair) tablet [...] at 0022, Until Sun09/10/25 at 1619, Routine, Moderate/Severe Pain > or =3: CPOT; > or =4: FLACC, PAINAD, NPASS, NRS, Retana-Alvarez Faces; > or =5: DVPRS, NIPS Given 09/10/2025 12:18 PM EDT 5 mg pantoprazole (Protonix) EC tablet 40 mg 40 mg, Oral, Daily before breakfast, First dose (after last modification) on Araseli 09/10/25 at 1215, Until Discontinued, Routine Given 09/10/2025 12:23 PM EDT 40 mg sodium chloride 0.9 % flush 10 mL 10 mL, Intravenous, Every 12 hours, First dose on Sun09/09/25 at 0930, Until Discontinued, Routine, Holding - Preprocedure Given 09/10/2025 12:23 PM EDT 10 mL Given 09/09/2025 10:59 PM EDT 10 mL Tiotropium Aptos Monohydrate (Spiriva Respimat) 2.5 MCG/ACT inhaler 2 [...] modification) on Sun09/10/25 at 1215, Until Discontinued 121 (Given - Provid er: Vane Jalloh RN) [...] breakfast, First dose (after last modification) on Araseli 09/10/25 at 1215, Until Discontinued, Routine 1223 (Given - Provid er: Vane Jalloh RN) sodium chloride 0.9 % flush 10 mL (CANCELED)(Linked Group 2) 10 mL, Intravenous, Every 12 hours, First dose on Sun09/09/25 at 0930, Until Discontinued, Routine, Holding - Preprocedure 0930 (Due)2259 (Given - Provider: Awa Mejia) 1223 (Given - Provider: Vane Jalloh RN) Tiotropium Aptos Monohydrate (Spiriva Respimat) 2.5 MCG/ACT inhaler 2 [...] at 1615, Until Sun09/10/25 at 1619, Routine, Mild + Pain > or =1: CPOT, DVPRS, FLACC, PAINAD, NPASS, NRS, Retana-Alvarez Faces; > or =2: NIPS , headaches, fever 0250 (Given - Provid er: [...] Sean Barnes)1630 (See Alternative - Provider: Sean Barnes)213 (See Alternative - Provider: Awa Mejia)215 (Given - Provider: Awa Mejia)2353 (Given - Provider: Awa Mejia) fentaNYL (Sublimaze) injection 50 mcg (COMPLETED)(Linked Group 3) 50 mcg, Intravenous, Every 5 min PRN, 5 doses, Starting on Sun09/09/25 at 1603, Until Sun09/09/25 at 2353, Routine, Recovery (Phase I only), DVPRS >/= 5, CPOT >/= 3, FLACC >/= 4, PAINAD >/= 4 1621 (Given - Provider: Sean Barnes)1630 (Given - Provider: Sean Barnes)2136 (Given - Provider: Awa Mejia)2158 (See Alternative - Provider: Awa Mejia)2353 (See Alternative - Provider: Awa Mejia) hydrALAZINE [...] PRN, Starting on Sun09/09/25 at 1640, Until Araseli 09/10/25 at 1619, Routine, wheezing, shortness of breath [...] 4 2038 (Given - Provider: Awa Mejia) [facility] Awa [facility]) oxyCODONE (Roxicodone) immediate release tablet 10 mg(Linked Group 7) 10 mg, Oral, Every 6 hours PRN, Starting on Araseli 09/10/25 at 0022, Until Araseli 09/10/25 at 1619, Routine, severe pain 0250 (Given - Provid er: Awa Mejia)1218 (See Alternative - Provider: Vane Jalloh RN) oxyCODONE (Roxicodone) immediate release tablet 5 mg(Linked Group 7) 5 mg, Oral, Every 6 hours PRN, Starting on Araseli 09/10/25 at 0022, Until Araseli 09/10/25 at 1619, Routine, Moderate/Severe Pain > or =3: CPOT; > or =4: FLACC, PAINAD, NPASS, NRS, Retana-Alvarez Faces; > or =5: DVPRS, NIPS 0250 (See Alternativ e - Provider: Awa [...] Guardado) Linked Groups Order Group 1: Tiotropium Aptos Monohydrate (Spiriva Respimat) 2.5 MCG/ACT inhaler 2 puffJump to med 2 puff, Inhalation, Daily, First dose (after last modification) on Sun09/11/25 at 0900, Until Discontinued And mometasone-formoterol (Dulera 200) 200-5 MCG/ACT inhaler 2 puffJump to med 2 puff, Inhalation, 2 times daily, First dose (after last modification) on Sun09/10/25 at 1215, Until Discontinued Group 2: Insert [...] needed, Starting on Sun09/09/25 at 0833, Until Sun09/10/25 at 1259, Routine, Holding - Preprocedure, line [...] 0022, Until Araseli 09/10/25 at 1619, Routine, Moderate/Severe Pain > or =3: CPOT; > or =4: FLACC, PAINAD, NPASS, NRS, Retana-Alvarez Faces; > or =5: DVPRS, NIPS Or oxyCODONE (Roxicodone) immediate release tablet 10 [...] documented as of this encounter Care Teams Veneer Glue Jointer Feedback Relationship Specialty Start Date End Date Michael Baez MD [address] [place] [address] PCP - General 04/08/21 Acacia Scott APRN [address] [place] [address] Nurse Practitioner Cardiology 03/27/22 Virgilio Nguyễn MD [address] [place] [address] Referring Physician 10/07/24 documented as of this encounter
--- OUTSIDE RECORDS SUMMARY | 2025-10-20 12:04 | XMS_ITS | Encounter Summary ---
Author Organization Healthcare Address [address] [place] [address] Care Team Providers Care Rack Washer Name Role Phone Michael Baez MD Primary Care Provider [phone] Acacia Scott RATE MARKER Unavailable [phone] Virgilio Nguyễn MD Unavailable [phone] Reason for Referral * Imaging (Routine) - Pending Review Specialty Diagnoses / Procedures Referred By Terrence prasad Referred To Contact Radiology Diagnoses Cerebral aneurysm Procedures MR Angio Head w IV Contrast Prachi Hodgson PA [address] [address] Phone: tel: fax: Referral ID Status Reason Start Date Expiration Date V isits Requested Visits Authorized [id number] Pending Review 09/10/2025 03/12/2027 1 1 Reason for Visit * Imaging (Routine) - Pending Review Specialty Diagnoses / Procedures Referred By Terrence prasad Referred To Contact Radiology Diagnoses Cerebral aneurysm Procedures MR Angio Head w IV Contrast Prachi Hodgson PA [address] [facility] [address] [place] [address] Phone: tel: fax: Referral ID Status Reason Start Date Expiration Date V isits Requested Visits Authorized [id number] Pending Review 09/10/2025 03/12/2027 1 1 Encounter Details Date Type Department Care Team (Latest Contact Info) Description 10/20/2025 12:04 PM EST - 10/20/2025 11:59 PM [facility] Hospital Encounter P[facility] A Radiology [address] [place] [address] Cerebral aneurysm Discharge Disposition: Home or Self [...] time in the past 12 m [facility], were you homeless or living in a fpc (including now)? 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-COMPONENT OVERHAUL OPERATOR) to 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 0 05/03/2025 CAGE Questionnaire Score 0 025 Utilities Answer Date Recorded In the past 12 months has th e [employer], gas, oil, or water [employer] threatened to shut off services in your [...] 8:55 AM EDT documented in this encounter Medications at Time [...] by mouth daily. 90 tablet 1 10/20/2025 Evolocumab (Repatha) 140 MG/ML solution auto-injector autoinjector Inject 1 mL under the skin every 14 days. 2 mL 1 10/20/2025 fluticasone-salme terol (Advair Diskus) 500-50 MCG/ACT diskus inhaler inhale 1 puff by mouth 2 times a day 08/27/2025 ipratropium-albut willow (Duo-Neb) 0.5-2.5 mg/3 mL nebulizer solution INHALE THE CONTENTS OF 1 VIAL VIA NEBULIZER EVERY 8 HOURS 08/06/2025 documented as of this encounter Plan of Treatment Upcoming Encounters Date Type Department Care Team (Late st Contact Info) Description 03/15/2026 11:20 AM EDT Office Visit [place] [facility] [address], [address] [place] [address] Kylah Alejandra PA [address] [place] [address] documented as of this encounter [...] INDICATION: aneurysm stent coil performed here 2024, Joe-Rikki/Deepak TECHNIQUE: 3-D ndfg-cb-nngzze MR angiography was performed through the major [...] Overall intrinsic flow related enhancement suggesting patency.. [place] of [place] and Major Peripheral Branches: Sequela [...] INDICATION: aneurysm stent coil performed here 2024, Joe-Rikki/Deepak TECHNIQUE: 3-D qmli-jb-efaosk MR angiography was performed through the majorintracranial [...] degradation. Overall intrinsic flowrelated enhancement suggesting patency.. [place] of [place] and Major Peripheral Branches: Sequela [...] Turner MD on 10/20/2025 6:48 PM Prachi WATKINS MRI PROCEDURES Final Res ult documented in [...] documented as of this encounter Care Teams Rack Washer Relationship Specialty Start Date End Date Michael Baez MD [address] [place] [address] PCP - General 04/08/21 Acacia Scott APRN [address] [place] [address] Nurse Practitioner Cardiology 03/27/22 Virgilio Nguyễn MD [address] [place] [address] Referring Physician 10/07/24 documented as of this encounter
--- OUTSIDE RECORDS SUMMARY | 2025-10-20 16:00 | XMS_ITS | Encounter Summary ---
Author Organization [facility] Address [address] [place] [address] Care Team Providers Care Batch Dumper Name Role Phone Michael Baez MD Primary Care Provider [phone] Acacia Scott APRN Unavailable [phone] Virgilio Nguyễn MD Unavailable [phone] Reason for Visit * Consultation (Routine) - Closed Specialty Diagnoses / Procedures Referred By Terrence prasad Referred To Contact Neurosurgery Diagnoses Cerebral aneurysm Anders Sotelo MD [id number] [place] [address] Phone: tel: fax: Referral ID Status Reason Start Date Expiration Date V isits Requested Visits Authorized [id number] Closed Specialty Services Required 09/10/2025 03/12/2027 1 1 Encounter Details Date Type Department Care Team (Late st Contact Info) Description 10/20/2025 4:00 PM EST Office Visit [place] [facility] [address], [address] [place] [address] David Gallego MD [id number] [place] [address] Cerebral aneurysm (Primary Dx) Social [...] any time in the past 12 m [facility], were you homeless or living [...] drink first t pippa in the morning (EYE-DATABASE MARKETING ANALYST) to 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 0 05/03/2025 CAGE Questionnaire Score 0 025 Utilities Answer Date Recorded In the past 12 months has th e [employer] gas, oil, or water company threatened to shut off services in your home? No 05/08/2025 Comments No Sex and Gender Information Value Date Recorded Sex Assigned at Not on file Legal Sex Female 7:36 PM EDT Gender Identity Not on file Sexual Orientation Not on file documented as of this encounter Last Filed Vital Signs Vital Sign Reading Time Taken Comments Blood Pressure 122/67 10/20/2025 3:44 PM EST Pulse 60 10/20/2025 3:44 PM EST Temperature - - Respiratory Rate - - Oxygen Saturation 97% 10/20/2025 3:44 PM EST Inhaled Oxygen Concentration - - Weight 73.5 kg (162 lb) 10/20/2025 3:44 PM EST Height 162.6 cm (5' 4 ) 10/20/2025 3:44 PM EST Body Mass Index 27.81 10/20/2025 3:44 PM EST documented in this encounter Miscellaneous Notes * Progress Notes - Kylah Alejandra PA - 10/20/2025 4:00 PM EST NEUROINTERVENTIONAL RADIOLOGY PROGRESS NOTE We had the pleasure of seeing your patient in our neurosurgical clinic today. HISTORY OF PRESENT ILLNESS: Supriya Andres is a 74 y.o. year old female presenting for one month follow-up after intervention with new MRA head w/ for right anterior cerebral artery aneurysm unruptured undergoing stage I Ystent assisted coiling 06/22/[address] Gallego and stage II stenting on 09/09/[address] Sotelo. She remains on 82 mg asa and 5 mg Eliquis BID for atrial fibrillation. Today she presents doing well, frontal headaches have decreased in frequency now only occurring once every 1-2 weeks characterized as a throbbing sensation. Relief obtained with Tylenol, no associated N/V, photosensitivity and phonosensitivity. Continues to use a cane for ambulation assistance but arrives in transport wheelchair today due to fatigue with excessive walking. Denies new focal neurological deficits and stroke-like symptoms. Family History[1] Immunization History Administered Date(s) Administered Influenza, high-dose, quadrivalent 08/22/2018, 12/11/2019 Pneumococcal Polysaccharide PPV23 05/26/2021 Allergies[2] Medications Ordered Prior to Encounter[3] ROS: A 14 point review of systems was completed and reviewed. Negative other than indicated above in the history of present illness. Last Recorded Vitals Visit Vitals OB Status Hysterectomy Smoking Status Former PHYSICAL EXAM: -Constitutional: Well developed, well nourished. No acute distress. Alert and oriented to person, place, and time. -Head, Eyes, Nose, Throat: Normocephalic, atraumatic. Pupils are equally round and reactive to light. Extra-ocular movements are intact without nystagmus. Oral mucosa is pink and moist. -Musculoskeletal: Moves all 4 extremities equally. Presents in wheelchair. -Extremities: There is no clubbing, cyanosis, or edema. There is no pronator drift. -Neurologic: Awake, alert, following commands briskly, speech intact, face symmetric, sensation intact to light touch, CN 2-12 intact, Motor: RUE: 5/5 RLE 5/5 LUE 5/5 LLE 5/5 IMAGING: I personally reviewed and independently interpreted the following: MRA Head w/ contrast performed today demonstrates: previously treated anterior cerebral artery aneurysm with no evidence of recurrence and residual. No other notable intracranial abnormalities. ASSESSMENT AND PLAN: Supriya Andres is a 74 y.o. year old female with: Right anterior cerebral artery aneurysm unruptured undergoing stage I Y stent assisted coiling 06/22/[address] Gallego and stage II stenting on 09/09/[address] Sotelo. Imaging today demonstrated no evidence of residual aneurysm. Continue 75 mg Plavix (new prescription sent to pharmacy) and 5 mg BID Eliquis for secondary strokeprevention, discontinue asa. F/u in February for diagnostic cerebral catheter angiogram planning. Atrial Fibrillation Chronic, stable Followed by Cardiology, Nanci Scott APRN and manages 5 mg Eliqus BID. Thank you. If there are any questions or concerns please feel free to contact us: [facility] Department of Neurosurgery [address], [place] [address] [place] [address] ; I reviewed this patient's history, exam, and any imaging with Dr. David Gallego. She guided plan ofcare for this patient. [1] Family History Problem Relation Name Age of Onset Coronary artery disease Mother Coronary artery disease Father Migraines Sister Kait Reese Anesthesia problems Neg Hx Malig Hyperthermia Neg Hx [2] Allergies Allergen Reactions Diphenhydramine Anaphylaxis, Hives, Itching, [...] me crazy and antsy , paradoxical reaction [3] Current Outpatient Medications on File Prior to Visit Medication Sig Dispense Refill acetaminophen (Tylenol 8 Hour) 650 MG ER tablet Take 1 tablet by mouth every 8 hours as needed for mild pain. Do not crush, chew, or split. albuterol 108 (90 Base) MCG/ACT inhaler Inhale 2 puffs every 4 hours as needed. aspirin 81 MG EC tablet Take 1 tablet by mouth daily. 30 tablet 11 azelastine (Astelin) 0.1 % nasal spray bisoprolol (Zebeta) 5 MG tablet Take 1 tablet by mouth daily. Fwiewlt-Nyhkxgjxyug-Peilpujolc (Breztri Aerosphere) 160-9-4.8 MCG/ACT aerosol Inhale 2 puffs 2 times a day. budesonide (Pulmicort) 0.5 MG/2ML nebulizer solution Take 2 mL by nebulization 2 times a day. [place] with water after use to reduce aftertaste and incidence of candidiasis. Do not swallow. cetirizine (ZyrTEC) 10 MG tablet 1 tablet. clopidogrel (Plavix) 75 MG tablet Take 1 tablet by mouth daily. Eliquis 5 MG tablet Take 1 tablet by mouth 2 times a day. 180 tablet 3 Entresto 24-26 MG tablet escitalopram (Lexapro) 20 MG tablet Take 1 tablet by mouth daily. famotidine (Pepcid) 20 MG tablet Take 1 tablet by mouth 2 times a day as needed. Fasenra Pen 30 MG/ML solution auto-injector injection Inject 1 mL under the skin every 56 days. Takes every 8 weeks - next dose due 09/07/25 fluticasone (Flonase) 50 MCG/ACT nasal spray Administer 1 spray into each nostril daily. gabapentin (Neurontin) 300 MG capsule Take 1 capsule by mouth 3 times a day. Gemtesa 75 MG tablet Take 75 mg by mouth daily. ipratropium-albuterol (Combivent Respimat) 20-100 MCG/ACT inhaler Inhale 1 puff 4 times a day as needed for wheezing or shortness of breath. montelukast (Singulair) 10 MG tablet Take 1 tablet by mouth nightly. pantoprazole (Protonix) 40 MG EC tablet Take 1 tablet by mouth daily before breakfast. Do not crush, chew, or split. temazepam (Restoril) 15 MG capsule Take 1 capsule by mouth nightly. traZODone (Desyrel) 50 MG tablet Take 1 tablet by mouth nightly. [DISCONTINUED] empagliflozin (Jardiance) 10 MG Take 1 tablet by mouth daily. (Patient not taking: Reported on 09/10/2025) 30 tablet 0 [DISCONTINUED] Evolocumab (Repatha) 140 MG/ML solution auto-injector autoinjector Inject 1 mL underthe skin every 14 days. 6 mL 1 No current facility-administered medications on file prior to visit. Cosigned by David Gallego MD at 10/26/2025 10:48 AM EST Associated attestation - David Gallego MD - 10/26/2025 10:48 AM EST I saw and examined the patient with the OSCAR. I agree with the assessment and plan. A substantive portion of care was provided by me documented in this encounter Plan of Treatment Upcoming Encounters Date Type Department Care Team (Late st Contact Info) Description 03/15/2026 11:20 AM EDT Office Visit [place] [facility] [address], [address] [place] [address] Kylah Alejandra, PA [address] [place] [address] documented as of this encounter [...] documented as of this encounter Care Teams Batch Dumper Relationship Specialty Start Date End Date Michael Baez MD [address] [place] [address] PCP - General 04/08/21 Acacia Scott APRN [address] [place] [address] Nurse Practitioner Cardiology 03/27/22 Virgilio Nguyễn MD [address] [place] [address] [place] [address] Referring Physician 10/07/24 documented as of this encounter
--- OUTSIDE RECORDS SUMMARY | 2025-10-26 12:56 | XMS_ITS | Encounter Summary ---
Author Organization [facility] Address [address] [place] [address] Care Team Providers Care Cage Operator Name Role Phone Michael Baez MD Primary Care Provider + [phone] Acacia Scott APRN Unavailable [phone] Virgilio Nguyễn MD Unavailable [phone] Encounter Details Date Type Department Care [...] any time in the past 12 m [facility], were you homeless or living in a penitentiary (including now)? 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) to steady your nerves or to get [...] Visit [place] [facility] [address] [place] [address] Kylah Alejandra, PA [address] [place] [address] documented as of this encounter Visit Diagnoses Not on filedocumented in this encounter Additional Health Concerns Assessment Noted Time A fall risk assessment has been complete d for the patient 08/07/2025 2:23 PM EDT A Body Mass Index follow-up plan has been documented for the patient 08/07/2025 4:31 PM EDT documented as of this encounter Care Teams Cage Operator Relationship Specialty Start Date End Date Michael Baez MD [address] [place] [address] PCP - General 04/08/21 Acacia Scott APRN [address] [place] [address] Nurse Practitioner Cardiology 03/27/22 Virgilio Nguyễn MD [address] [place] [place] [address] Referring Physician 10/07/24 documented as of this encounter
--- OUTSIDE RECORDS SUMMARY | 2025-10-26 12:56 | XMS_ITS | Clinical Summary ---
Author Organization [facility] Address [address] [place] [address] Care Team Providers Care Silk Conditioner Name Role Phone Michael Baez MD Primary Care Provider + [phone] Acacia Scott APRN Unavailable [phone] Virgilio Nguyễn MD Unavailable [phone] Allergies Active Allergy Reactions Criticality Noted [...] Take 1 capsule by mouth nightly. 08/14/20 Active fluticasone (Flonase) 50 MCG/ACT nasal spray Administer 1 spray into each nostril daily. 11/06/20 Active Fasenra Pen 30 MG/ML solution auto-injector injection Inject 1 mL under the skin every 56 days. Takes every 8 weeks - next dose due 09/07/25 03/13/20 Active Gemtesa 75 MG tablet Take 75 mg by mouth daily. Active pantoprazole (Protonix) 40 MG EC tablet Take 1 tablet by mouth daily before breakfast. Do not crush, chew, or split. Active traZODone (Desyrel) 50 MG tablet Take 1 tablet by mouth nightly. Active bisoprolol (Zebeta) 5 MG tablet Take [...] Take 1 tablet by mouth daily. Active azelastine (Astelin) 0.1 % nasal spray 07/04/20 Active acetaminophen (Tylenol 8 Hour) 650 MG [...] mouth 3 times a day. 08/06/20 Active Eliquis 5 MG tablet Take 1 tablet by mouth 2 times a day. 180 tablet 3 09/14/20 Active Evolocumab (Repatha) 140 MG/ML solution auto-injector autoinjector Inject 1 mL under the skin every 14 days. 2 mL 1 10/20/20 026 Active fluticasone-salm eterol (Advair Diskus) 500-50 MCG/ACT diskus inhaler inhale 1 puff by mouth 2 times a day 08/27/20 Active ipratropium-albu terol (Duo-Neb) 0.5-2.5 mg/3 mL nebulizer solution INHALE THE CONTENTS OF 1 VIAL VIA NEBULIZER EVERY 8 HOURS 08/06/20 Active clopidogrel (Plavix) 75 MG tablet Take 1 tablet by mouth daily. 90 tablet 1 10/20/20 Active clopidogrel (Plavix) 75 MG tablet Take 1 tablet by mouth daily. Discontinu ed(Reorder ) empagliflozin (Jardiance) 10 MG Take 1 tablet by mouth daily. 30 tablet 05/07/20 Discontinu ed(Per Patient Report) Evolocumab (Repatha) 140 MG/ML solution auto-injector autoinjector Inject 1 mL under the skin every 14 days. 6 mL 1 05/07/20 Discontinu ed(Reorder ) aspirin 81 MG EC tabletIndication s:Cerebral aneurysm Take 1 tablet by mouth daily. 30 tablet 08/07/20 Discontinu ed(Therapy completed) Active Problems Problem Noted Date Diagnosed Date Electrolyte abnormality 09/10/2025 Assessment & Plan (09/10/2025 11:45 AM EDT): Trend and replace per ICU sliding scale protocol Cerebral aneurysm 06/22/2025 Overview (06/22/2025): Right JOANH A2 segment aneurysm treated with first stage [...] per protocol. Coronary artery disease invo lving [place] coronary artery of [place] heart without angina pectoris 05/13/2019 Assessment & [...] Encounters Date Type Department Care Team Description 10/20/2025 4:00 PM EST Office Visit [facility] [address], [address] [place] [address] David Gallego MD Cerebral aneurysm (Primary Dx) 10/20/2025 12:04 PM EST - 10/20/2025 11:59 PM EST Hospital Encounter [facility] [address] [place] [phone] Cerebral aneurysm Discharge Disposition: Home or Self Care 10/20/2025 [facility] [place] [address], [address] [place] [address] Acacia Scott APRN 10/20/2025 Travel 10/18/2025 Travel 09/10/2025 Travel 09/10/2025 Orders Only [facility] [address], [address] [place] [address] Prachi Hodgson PA Cerebral aneurysm (Primary Dx) 09/09/2025 11:55 PM EDT - 09/10/2025 2:18 PM EDT Hospital Encounter [facility] OPERATING ROOM [address] [place] [address] Anders Sotelo MD Armstrong, Bruce, RN Aneurysm ([facility] (Primary Dx); Pre-op exam; Cerebral aneurysm Discharge Disposition: Home or Self Care 09/09/2025 1:15 PM EDT Anesthesia Event [facility] Interventional Radiology [address] [place] [address] Jill Barnes CRNA, Elizabeth Benitez PA 09/09/2025 Travel 09/08/2025 Travel 08/31/2025 1:00 PM EDT Pre-Admission Testing [facility] [address], [address] [place] [address] 08/31/2025 Travel 08/20/2025 Telephone [facility] [address], [address] [place] [address] Anders Sotelo MD HCN - Patient Message (Update on labs) 08/07/2025 1:30 PM EDT Office Visit [facility] [address], [address] [place] [address] Anders Sotelo MD Pre-op exam (Primary Dx); Cerebral aneurysm 08/07/2025 Orders Only [facility] [address], [address] [place] [address] Prachi Hodgson PA Cerebral aneurysm (Primary Dx); Pre-op exam 08/07/2025 Travel from Last 3 Months Immunizations Immunization [...] any time in the past 12 m [facility], were you homeless or living [...] drink first t pippa in the 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) to steady your nerves or to [...] Pulse 60 10/20/2025 3:44 PM EST Temperature 36.7 C (98.1 F) 09/10/2025 7:00 AM EDT Respiratory Rate 23 09/10/2025 1:00 PM EDT Oxygen Saturation 97% 10/20/2025 3:44 PM EST Inhaled Oxygen Concentration - - Weight 73.5 kg (162 lb) 10/20/2025 3:44 PM EST Height 162.6 cm (5' 4 ) 10/20/2025 3:44 PM EST Body Mass Index 27.81 10/20/2025 3:44 PM EST Plan of Treatment Upcoming Encounters Date Type Department Care Team (Late st Contact Info) Description 03/15/2026 11:20 AM EDT Office Visit [place] [facility] [address], [address] [place] [address] Kylah Alejandra PA [address] [place] [address] Health Maintenance Due Date Last Done Comments [...] Screening 08/07/2023 08/07/2022 [facility]-Depression Screening 03/31/2025 03/31/2024 [id number] Vaccine ( season) 2025 [facility]- SDOH Screenings 11/04/2025 [facility]-Adult SDOH Screenings 11/04/2025 05/05/2025 [facility]-Hepatitis C Screening Completed 05/01/2025, 10/2022 [facility]-Influenza Vaccine Completed 08/06/2025 , 08/04/2024, 12/11/2019, Additional history exists [facility]-Pneumococcal Vaccine: 50+ Years Completed 08/06/2025, 05/26/2021 [facility]-Obesity Intervention Completed 025, 08/07/2025, 06/22/2025, Additional history exists HPV Vaccines Aged Out [...] this topic Medical Devices Implanted Type Area Histologist Device Identifier Shelf Expiration Date Model / Serial / Lot Stent Without Tip Westminster 3mm X 24mm - [id number] Implanted:Qty: 1 on 06/22/2025 by Marifer Rose RN at [facility] [employer] Neuro[employer]-[id number] 01/31/2030 [id number] / / [id number] Vip Vascular Closure Device 6 Fr - [id number] Implanted:Qty: 1 on 06/22/2025 by Marifer Rose RN at [facility] [id number] 02/23/2026 [id number] / / [id number] Coil Detach Xl Soft 7x20cm - [id number] Implanted:Qty: 1 on 09/09/2025 by Anders Soetlo MD at [facility]5 68 05/31/2030 [id number] / / [id number] Coil Detach Xl Soft 7x20cm - [id number] Implanted:Qty: 1 on 09/09/2025 by Anders Sotelo MD at [facility] 68 05/29/2030 [id number] / / [id number] Coil Detach Xl Soft 6x20cm - [id number] Implanted:Qty: 1 on 09/09/2025 by Anders Sotelo MD at [facility] 68 06/01/2030 [id number] / / [id number] Coil 360 Ultra 5mm-15cm - [id number] Implanted:Qty: 1 on 09/09/2025 by Anders Sotelo MD at [facility] 68 05/11/2030 [id number] / / [id number] Coil 360 Ultra 5mm-15cm - [id number] Implanted:Qty: 1 on 09/09/2025 by Anders Sotelo MD at [facility] 68 05/16/2030 [id number] / / [id number] Closure Device Vip Angioseal 8 Fr - [id number] Implanted:Qty: 1 on 09/09/2025 by Anders Sotelo MD at [facility] [employer]-[id number] 05/18/2026 [id number] / / [id number] Stent Without Tip Westminster 3mm X 24mm - [id number] Implanted:Qty: 1 on 09/09/2025 by Anders Sotelo MD at [facility] 68 02/24/2030 [id number] / / [id number] Hip Stem Inzone Detachment - [id number] Implanted:Qty: 1 on 09/09/2025 [facility] 68 04/09/2027 [id number] / / [id number] Coil Detach Xl Soft 07a15im - [id number] Implanted:Qty: 1 on 09/09/2025 by [facility] 68 06/21/2030 [id number] / / [id number] Coil Detach Xl Soft 34y08se - [id number] Implanted:Qty: 1 on 09/09/2025 by [facility] 68 06/21/2030 [id number] / / [id number] Coil Detach Xl Soft 25q34tb - [id number] Implanted:Qty: 1 on 09/09/2025 by [facility] 68 06/08/2030 [id number] / / [id number] Coil Detach Xl Soft 30q97yz - [id number] Implanted:Qty: 1 on 09/09/2025 by [facility] 68 06/08/2030 [id number] / / [id number] Coil Detach Xl Soft 8x30cm - [id number] Implanted:Qty: 1 on 09/09/2025 by [facility] 68 05/04/2030 [id number] / / [id number] Procedures Procedure Name Priority Date/Time Associated Diagnosis Comments MR ANGIO HEAD W IV CONTRAST Routine 10/20/2025 2:41 PM EST Cerebral aneurysm EXTRA TUBE LAVENDER TOP Routine 09/10/2025 4:45 [...] W/O DIFFERENTIAL Routine 09/09/2025 5:50 PM EDT TN CRITICAL CARE, E/M 30-74 MINUTES Routine 09/09/2025 5:20 PM EDT Aneurysm (CMS/HCC) OXYGEN THERAPY Routine 09/09/2025 3:52 PM EDT OXYGEN THERAPY Routine 09/09/2025 3:51 PM EDT IR ARTERIAL EMBOLIZATION Routine 09/09/2025 3:44 PM EDT Aneurysm (CMS/HCC) ANESTHESIA ARTERIAL LINE PLACEMENT Routine 09/09/2025 1:35 PM EDT PB ANESTHESIA PLACEHOLDER Routine 09/09/2025 1:30 PM EDT TN AN ELECTIVE ENDOTRACHEAL AIRWAY Routine 09/09/2025 1:30 PM EDT HEPATITIS C ANTIBODY - ED W/REFLEX TO HCV QUANT PCR STAT 05/01/2025 8:[address] CHEST WO IV CONTRAST STAT 08/07/2022 1:12 PM EDT from Last 3 Months or Most Recently Relevant to Health Maintenance Results * MR Angio Head w IV [...] coil performed here 2024, Lashonda/Deepak TECHNIQUE: 3-D [id number]-zhiecs MR angiography was performed through the major [...] Overall intrinsic flow related enhancement suggesting patency.. [place] and Major Peripheral Branches: Sequela [...] coil performed here 2024, Lashonda/Deepak TECHNIQUE: 3-D cemh-xt-fdooge MR angiography was performed through the majorintracranial [...] degradation. Overall intrinsic flowrelated enhancement suggesting patency.. [place] and Major Peripheral Branches: Sequela [...] Favian Turner MD on 10/20/2025 6:48 PM us Prachi BOOTH IMG MRI PROCEDURES Final Res ult * Lavender Top (09/10/2025 4:45 AM EDT) Extra Hold for add-ons 09/10/2025 8:02 AM EDT [facility] Comment:Auto resulted. Blood Venous blood specimen / Unknown 09/10/2025 4:45 AM EDT 09/10/2025 5:05 AM EDT us Anders Sotelo MD LAB BLOOD ORDERABLES Final Re sult Performing Organization Address City/[facility]/ZIP Co de Phone Number [facility] [address] [place] [address] * Light Green Top (09/10/2025 4:45 AM EDT) Extra Hold for add-ons 09/10/2025 8:02 AM EDT [facility] Comment:Auto resulted. Blood Venous blood specimen / Unknown 09/10/2025 4:45 AM EDT 09/10/2025 5:05 AM EDT us Anders Sotelo MD LAB BLOOD ORDERABLES Final Re sult Performing Organization Address City/[facility]/ZIP Co de Phone Number [facility] [address] [place] [address] * (ABNORMAL) Blood gas panel, arterial (09/09/2025 5:51 PM EDT) pH, Arterial 7.32 7.31 - 7.42 LAB HEMATOLOGY METHOD 09/09/2025 5:59 PM EDT [facility] pCO2, Arterial 44 35 - 48 mmHg LAB HEMATOLOGY METHOD 09/09/2025 5:59 PM EDT [facility] pO2, Arterial 128 >70 mmHg LAB HEMATOLOGY METHOD 09/09/2025 5:59 PM EDT [facility] SO2, Measured, Arterial 99(H) 94 - 98 % LAB HEMATOLOGY METHOD 09/09/2025 5:59 PM EDT [facility] Base Excess, Arterial -3.7(L) -2.0 - 3.0 mmol/L LAB HEMATOLOGY METHOD 09/09/2025 5:59 PM EDT [facility] Bicarbonate, Calculated, Arterial 22 22 - 26 mmol/L LAB HEMATOLOGY METHOD 09/09/2025 5:59 PM EDT [facility] Hematocrit, Whole Blood 33.8(L) 34.0 - 45.0 % LAB HEMATOLOGY METHOD 09/09/2025 5:59 PM EDT [facility] Sodium, Whole Blood 143 136 - 145 mmol/L LAB HEMATOLOGY METHOD 09/09/2025 5:59 PM EDT [facility] Potassium, Whole Blood 4.1 3.6 - 4.9 mmol/L LAB HEMATOLOGY METHOD 09/09/2025 5:59 PM EDT [facility] Chloride, Whole Blood 114(H) 97 - 107 mmol/L LAB HEMATOLOGY METHOD 09/09/2025 5:59 PM EDT [facility] Glucose, Whole Blood 114(H) 74 - 99 mg/dL LAB HEMATOLOGY METHOD 09/09/2025 5:59 PM EDT [facility] Ionized Calcium, Whole Blood 4.4(L) 4.6 - 5.1 mg/dL LAB HEMATOLOGY METHOD 09/09/2025 5:59 PM EDT [facility] Lactate, Arterial, Whole Blood 0.7 0.5 - 1.6 mmol/L LAB HEMATOLOGY METHOD 09/09/2025 5:59 PM EDT [facility] Blood Arterial blood specimen / Unknown Arterial Puncture / Unknown 09/09/2025 5:51 PM EDT 09/09/2025 5:58 PM EDT us Rose Dang CALL CENTER DIRECTOR, DNP LAB BLOOD ORDERABLES Fi nal Result [facility] [address] [place] [address] * (ABNORMAL) CBC W/O Differential (09/09/2025 5:50 PM EDT) WBC Count 5.96 3.70 - 10.30 10*3/uL LAB HEMATOLOGY METHOD 09/09/2025 6:20 PM EDT [facility] RBC Count 3.76(L) 3.90 - 5.20 10*6/uL LAB HEMATOLOGY METHOD 09/09/2025 6:20 PM EDT [facility] HGB 11.2 11.2 - 15.7 g/dL LAB HEMATOLOGY METHOD 09/09/2025 6:20 PM EDT [facility] HCT 34.8 34.0 - 45.0 % LAB HEMATOLOGY METHOD 09/09/2025 6:20 PM EDT [facility] Platelet Count 235 155 - 369 10*3/uL LAB HEMATOLOGY METHOD 09/09/2025 6:20 PM EDT [facility] MCV 93 79 - 98 fL LAB HEMATOLOGY METHOD 09/09/2025 6:20 PM EDT [facility] MCH 29.8 26.0 - 32.0 pg LAB HEMATOLOGY METHOD 09/09/2025 6:20 PM EDT [facility] MCHC 32.2 30.7 - 35.5 g/dL LAB HEMATOLOGY METHOD 09/09/2025 6:20 PM EDT [facility] RDW 14.6(H) 11.5 - 14.5 % LAB HEMATOLOGY METHOD 09/09/2025 6:20 PM EDT [facility] MPV 9.3 8.8 - 12.5 fL LAB HEMATOLOGY METHOD 09/09/2025 6:20 PM EDT [facility] nRBC 0.0 <=0.0 per 100 WBCs LAB HEMATOLOGY METHOD 09/09/2025 6:20 PM EDT [facility] Blood Venous blood specimen / Unknown Venipuncture / Unknown 09/09/2025 5:50 PM EDT 09/09/2025 6:12 PM EDT us Rose Dang CALL CENTER DIRECTOR, DNP LAB BLOOD ORDERABLES Fi nal Result [facility] [address] [place] [address] * (ABNORMAL) Phosphorus, Plasma (09/09/2025 5:50 PM EDT) Phosphorus, Plasma 5.6(H) 2.5 - 4.5 mg/dL 09/09/2025 6:38 PM EDT [facility] Blood Venous blood specimen / Unknown Venipuncture / Unknown 09/09/2025 5:50 PM EDT 09/09/2025 6:06 PM EDT us Rose Dang CALL CENTER DIRECTOR, DNP LAB BLOOD ORDERABLES Fi nal Result Performing Organization Address City/[facility]/ZIP Co de Phone Number [facility] [address] [place] [address] * (ABNORMAL) Magnesium, Plasma (09/09/2025 5:50 PM EDT) Magnesium, Plasma 1.5(L) 1.9 - 2.4 mg/dL 09/09/2025 6:38 PM EDT [facility] Blood Venous blood specimen / Unknown Venipuncture / Unknown 09/09/2025 5:50 PM EDT 09/09/2025 6:06 PM EDT Rose Dang APRN, DNP LAB BLOOD ORDERABLES Fi nal Result Performing Organization Address City/[facility] Co de Phone Number [facility] [address] [place] [address] * (ABNORMAL) Comprehensive metabolic panel (09/09/2025 5:50 PM EDT) Glucose, Plasma 112(H) 74 - 99 mg/dL 09/09/2025 6:38 PM EDT [facility] BUN, Plasma 8 8 - 23 mg/dL 09/09/2025 6:38 PM EDT [facility] Creatinine, Plasma 0.74 0.60 - 1.10 mg/dL 09/09/2025 6:38 PM EDT [facility] BUN/Creatinine Ratio 11 09/09/2025 6:38 PM EDT [facility] Sodium, Plasma 142 136 - 145 mmol/L 09/09/2025 6:38 PM EDT [facility] Potassium, Plasma 4.3 3.6 - 4.9 mmol/L 09/09/2025 6:38 PM EDT [facility] Chloride, Plasma 111(H) 97 - 107 mmol/L 09/09/2025 6:38 PM EDT [facility] CO2, Plasma 20(L) 22 - 29 mmol/L 09/09/2025 6:38 PM EDT [facility] Anion Gap 11 6 - 16 mmol/L 09/09/2025 6:38 PM EDT [facility] Total Calcium, Plasma 7.8(L) 8.9 - 10.2 mg/dL 09/09/2025 6:38 PM EDT [facility] Total Protein 5.8(L) 6.3 - 7.9 g/dL 09/09/2025 6:38 PM EDT [facility] Albumin, Plasma 3.5 3.5 - 5.2 g/dL 09/09/2025 6:38 PM EDT [facility] AST, Plasma 22 10 - 35 U/L 09/09/2025 6:38 PM EDT [facility] ALT, Plasma 13 10 - 35 U/L 09/09/2025 6:38 PM EDT [facility] Alkaline Phosphatase, Plasma 51 46 - 142 U/L 09/09/2025 6:38 PM EDT [facility] Total Bilirubin, Plasma 0.6 0.2 - 1.1 mg/dL 09/09/2025 6:38 PM EDT [facility] eGFRcr 85.6 mL/min/1.7 3m*2 09/09/2025 6:38 PM EDT [facility] Comment:Reported eGFRcr in m L/min/1.73m2 is based the CKD-EPI 2020 equation that does not use a race coefficient. Blood Venous blood specimen / Unknown Venipuncture / Unknown 09/09/2025 5:50 PM EDT 09/09/2025 6:06 PM EDT us Rose Dang APRN, DNP LAB BLOOD ORDERABLES Fi nal Result [facility] [address] [place] [address] * TN CRITICAL CARE, E/M 30-74 MINUTES (09/09/2025 5:20 [...] stent assisted coil embolization. COMPARISON: [facility]SA 06/22/2025 QUALITY ASSURANCE INTERN: Anders Sotelo M.D. SECONDARY PARAPROFESSIONAL INTERPRETER: Yumi Jefferson MD LENGTH OF PROCEDURE: 57 [...] femoral artery was then accessed with 4 [place] micropuncture set, and a 4 [place] sheath advanced over a J-wire. The sheath [...] 90 cm BMX 81 guide catheter.A 5 [place] 2 catheter was advanced over a 0.035 [place] guidewire through the sheath and into the [...] obtained. At this point, a Milena 5 bruneian intermediate distal access catheter, SL-10 microcatheter, and Buzz 0.014 microwire were coaxially advanced through the guide catheter into the right MCA artery for the support needed to advance the intermediate catheter. The microwire microcatheter were navigated into the right JONAH A1 segment, the microwire was navigated through the aneurysm into the right pericallosal artery. The microwire was removed. A Neuroform [place] stent measuring 3 mm x 24 mm [...] the puncture site was closed using 8 bruneian angioseal. Patient tolerated the procedure and she [...] stent assisted coil embolization. COMPARISON: [facility]SA 06/22/2025 QUALITY ASSURANCE INTERN: Anders Sotelo M.D. SECONDARY PARAPROFESSIONAL INTERPRETER: Yumi Jefferson MD LENGTH OF PROCEDURE: 57 [...] common femoral artery wasthen accessed with 4 [place] micropuncture set, and a 4 [place] sheathadvanced over a J-wire. The sheath was connected to a regulated,pressurized infusion of heparinized saline. During access, ultrasoundguidance was used to confirm vessel patency, and to visualize the vascularneedle entry during access. Ultrasound images were included in the finalreport. Using roadmap technique, the sheath was exchanged over a 145cm J-wire fora 90 cm BMX 81 guide catheter.A 5 [place] 2 catheter was advancedover a 0.035 Ang[place] guidewire through the sheath and into thesubclavian [...] cerebral artery A2 segment aneurysm note. Aneurysm rmjitsig55.4 mm x 14.1 mm with 4.6 mm [...] cerebral artery A2 segment aneurysm note. Aneurysm wugtymqm62.4 mm x 14.1 mm with 4.6 mm [...] obtained. At this point, a Milena 5 bruneian intermediate distal accesscatheter, SL-10 microcatheter, and Buzz 0.014 microwire werecoaxially advanced through the guide catheter into the right MCA arteryfor the support needed to advance the intermediate catheter. The microwiremicrocatheter were navigated into the right JONAH A1 segment, the microwirewas navigated through the aneurysm into the right pericallosal artery. Themicrowire was removed. A Neuroform [place] stent measuring 3 mm x 24 mm [...] and thepuncture site was closed using 8 bruneian angioseal. Patient tolerated theprocedure and she was [...] 09/16/2025 4:38 PM us Anders Sotelo MD IMMargie IR PROCEDURES Final Resul t * PB ANESTHESIA NON-TIMED PROCEDURE PLACEHOLDER (09/09/2025 1:35 PM EDT) Narrative Luciano Pratt MD - 09/09/2025 1:35 PM EDT Lucinao Pratt MD 09/24/2025 6:40 AM Arterial Line: [...] ORDERABLES Edited Re sult - Final * TN AN ELECTIVE ENDOTRACHEAL AIRWAY, PB ANESTHESIA PLACEHOLDER (09/09/2025 1:30 PM EDT) Narrative Jill Barnes CRNA, DNP - 09/09/2025 1:30 PM EDT Jill Barnes CRNA, DNP 09/09/2025 1:43 PM Airway Date/Time: 09/09/2025 1:30 PM Reason: elective Airway not difficult General Information and Staff Patient location during procedure: [place] PETS SALESPERSON: Jill Barnes CRNA, DNP Performed: PETS SALESPERSON Patient Condition Indications for airway management: anesthesia [...] Antibody Negative Negative 05/01/2025 9:16 PM EDT [facility] Blood Venous blood specimen / Unknown Venipuncture / Unknown 05/01/2025 8:22 PM EDT 05/01/2025 8:34 PM EDT us Rula Howe MD LAB BLOOD ORDERABLES Final Re sult [facility] [address] [place] [address] * CT Chest wo IV Contrast (08/07/2022 [...] WO IV CONTRAST ordered by GUILLERMO PHILIP, [id number] CLINICAL INDICATION: Low back pain, no red [...] WO IV CONTRAST ordered by GUILLERMO PHILIP, [id number] CLINICAL INDICATION: Low back pain, no red [...] Patient has decision-making capacity? Yes Care Teams Silk Conditioner Relationship Specialty Start Date End Date Michael Baez MD [address] [place], [place] [address] PCP - General 04/08/21 Acacia Scott APRN [address] [place] [phone] Nurse Practitioner Cardiology 03/27/22 Virgilio Nguyễn MD [address] [place], [place] [address] Referring Physician 10/07/24
--- OUTSIDE RECORDS SUMMARY | 2025-10-26 12:56 | XMS_ITS | Clinical Summary ---
Author Organization [facility] Address [address] [address] Phone Care Team Providers Care Ems Manager Name Role Phone Unavailable Primary Care [...] age to complete this topic Insurance [employer] [facility] [place] [address] MEDICARE [place] PART A AND B
--- OUTSIDE RECORDS SUMMARY | 2025-10-26 12:56 | XMS_ITS | Encounter Summary ---
Author Organization [facility] Address [address] 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) to steady your nerves or to get [...] Visit [place] [facility] [address], [address] [place] [address] Kylah Alejandra PA [address] [place] [address] documented as of this encounter Visit Diagnoses Not on filedocumented in this encounter Additional Health Concerns Assessment Noted Time A fall risk assessment has been complete d for the patient 08/07/2025 2:23 PM EDT A Body Mass Index follow-up plan has been documented for the patient 08/07/2025 4:31 PM EDT documented as of this encounter Care Teams Student Recruiter Relationship Specialty Start Date End Date Michael Baez MD [address] [place] [address] PCP - General 04/08/21 Acacia Scott APRN [address] [place] [address] Nurse Practitioner Cardiology 03/27/22 Virgilio Nguyễn MD [address] [place] [address] Referring Physician 10/07/24 documented as of this encounter
--- OUTSIDE RECORDS SUMMARY | 2025-10-26 12:57 | XMS_ITS | Encounter Summary ---
Author Organization [facility] Address [address] [place] [address] Care Team Providers Care Template Storage Clerk Name Role Phone Michael Baez MD Primary Care Provider + [phone] Acacia Scott PHYSICIAN NON INVASIVE CARDIOLOGIST Unavailable [phone] Virgilio Nguyễn MD Unavailable [phone] Reason for Visit * Reason Onset Date Comments Med Refill 10/20/2025 The pended medic ations have been requested for refill. Please send to Specialty Pharmacy. Encounter Details Date Type Department Care Team (Late st Contact Info) Description 10/20/2025 Refill [facility] [place] [address], [address] [place] [address] Acacia Scott, PHYSICIAN NON INVASIVE CARDIOLOGIST [address] [place] [address] Social History Tobacco Use Types [...] time in the past 12 m [facility], were you homeless or living in a intermediate (including now)? 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 0 05/03/2025 CAGE Questionnaire Score 0 025 Utilities Answer Date Recorded In the past 12 months has th e [employer], gas, oil, or water company threatened to shut off services in your home? No 05/08/2025 Comments No Sex and Gender Information Value Date Recorded Sex Assigned at Not on file Legal Sex Female 7:36 PM EDT Gender Identity Not on file Sexual Orientation Not on file documented as of this encounter Plan of Treatment Upcoming Encounters Date Type Department Care Team ([facility] st Contact Info) Description 03/15/2026 11:20 AM EDT Office Visit [place] [facility] [address] [place] [address] Kylah Alejandra PA [address] [place] [address] documented as of this encounter Visit Diagnoses Not on filedocumented in this encounter Additional Health Concerns Assessment Noted Time A fall risk assessment has been complete d for the patient 08/07/2025 2:23 PM EDT A Body Mass Index follow-up plan has been documented for the patient 10/20/2025 4:20 PM EST documented as of this encounter Care Teams Template Storage Clerk Relationship Specialty Start Date End Date Michael Baez MD [address] [place] [address] PCP - General 04/08/21 Acacia Scott APRN [address] [place] [id number] Nurse Practitioner Cardiology 03/27/22 Virgilio Nguyễn MD [address] [place], [place] [address] Referring Physician 10/07/24 documented as of this encounter
--- OUTSIDE RECORDS SUMMARY | 2025-10-26 12:57 | XMS_ITS | Encounter Summary ---
Author Organization [facility] Address [address] [place] [address] Care Team Providers Care Chick Grader Name Role Phone Michael Baez MD Primary Care Provider + [phone] Acacia Scott APRN Unavailable [phone] Virgilio Nguyễn MD Unavailable [phone] Encounter Details Date Type Department Care Team (Latest Contact Info) Description 10/18/2025 Travel Social History Tobacco Use Types Packs/Day [...] time in the past [address] 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) to steady your nerves or to [...] Visit [place] [facility] [address] [place] [address] Kylah Alejandra, PA [address] [place] [address] documented as of this encounter Visit Diagnoses Not on filedocumented in this encounter Additional Health Concerns Assessment Noted Time A fall risk assessment has been complete d for the patient 08/07/2025 2:23 PM EDT A Body Mass Index follow-up plan has been documented for the patient 08/07/2025 4:31 PM EDT documented as of this encounter Care Teams Chick Grader Relationship Specialty Start Date End Date Michael Baez MD [address] [place] [address] PCP - General 04/08/21 Acacia Scott APRN [address] [place] [address] Nurse Practitioner Cardiology 03/27/22 Virgilio Nguyễn MD [address] [place] [address] Referring Physician 10/07/24 documented as of this encounter
--- OUTSIDE RECORDS SUMMARY | 2025-10-26 12:57 | XMS_ITS | Encounter Summary ---
Author Organization [facility] Address [address] [place] [address] Care Team Providers Care Roll Handler Name Role Phone Michael Baez MD Primary Care Provider [phone] Encounter Details Date Type Department Care Team (Late st Contact Info) Description 12/11/[address] OPENINGS INSPECTOR [facility] Social History Tobacco Use [...] on filedocumented in this encounter Care Teams Roll Handler Relationship Specialty Start Date End Date Michael Baez MD [address] [facility] [address] [facility] [address] PCP - General Adolescent Medicine 04/25/23 documented as of this encounter
--- OUTSIDE RECORDS SUMMARY | 2025-10-26 12:57 | XMS_ITS | Encounter Summary ---
Author Organization [facility] Address [address] [place] [address] Care Team Providers Care Dog Raiser Name Role Phone Michael Baez MD Primary Care Provider + [phone] Acacia Scott APRN Unavailable [phone] Virgilio Nguyễn MD Unavailable [phone] Encounter Details Date Type Department Care Team (Latest Contact Info) Description 10/20/2025 Travel Social History Tobacco Use Types Packs/Day [...] any time in the past 12 m [facility], were you homeless or living in a long term (including now)? 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 your nerves or to get [...] Visit [place] [facility] [address] [place] [address] Kylah Alejandra, PA [address] [facility] [address] [place] [address] documented as of this encounter Visit Diagnoses Not on filedocumented in this encounter Additional Health Concerns Assessment Noted Time A fall risk assessment has been complete d for the patient 08/07/2025 2:23 PM EDT A Body Mass Index follow-up plan has been documented for the patient 10/20/2025 4:20 PM EST documented as of this encounter Care Teams Dog Raiser Relationship Specialty Start Date End Date Michael Baez MD [address] [place] [address] PCP - General 04/08/21 Acacia Scott APRN [address] [place] [address] Nurse Practitioner Cardiology 03/27/22 Virgilio Nguyễn MD [address] [place] [address] Referring Physician 10/07/24 documented as of this encounter
--- OUTSIDE RECORDS SUMMARY | 2025-10-26 12:57 | XMS_ITS | Encounter Summary ---
Author Organization [facility] Address [address] [place] [address] Care Team Providers Care Respiratory Practitioner Name Role Phone Michael Baez MD Primary Care Provider [phone] Acacia Scott APRN Unavailable [phone] Virgilio Nguyễn MD Unavailable [phone] Reason for Visit * Reason Onset Date Comments HCN - Patient Message 08/20/2025 Update on labs Encounter Details Date Type Department Care Team (Late st Contact Info) Description 08/20/2025 Telephone [place] [facility] [address] [place] [address] Anders Sotelo MD [address] [place] [address] HCN - Patient Message (Update [...] 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 0 05/03/2025 CAGE Questionnaire Score 0 025 Utilities Answer Date Recorded In the past 12 months has th e [email or web address], gas, oil, or water company threatened to [...] supposed to be having labs done at [facility] in [place], but orders aren't there as yet. She's requesting a call back for an update. Best contact number and optimal time of day to reach caller: Please call [phone] Note: Please do not reply to this [...] Description 03/15/2026 11:20 AM EDT Office Visit [place] [facility] [address] [place] [address] Kylah Alejandra, EMMY [address] [place] [address] documented as of this encounter Visit Diagnoses Not on filedocumented in this encounter Additional Health Concerns Assessment Noted Time A fall risk assessment has been complete d for the patient 08/07/2025 2:23 PM EDT A Body Mass Index follow-up plan has been documented for the patient 08/07/2025 4:31 PM EDT documented as of this encounter Care Teams Respiratory Practitioner Relationship Specialty Start Date End Date Michael Baez MD [address] [place] [address] PCP - General 04/08/21 Acacia Scott APRN [address] [place] [address] Nurse Practitioner Cardiology 03/27/22 Virgilio Nguyễn MD [address] [place] [address] Referring Physician 10/07/24 documented as of this encounter
--- OUTSIDE RECORDS SUMMARY | 2025-10-26 12:57 | XMS_ITS | Encounter Summary ---
[facility] Organization [facility] Address [address] [place] [address] Care Team Providers Care Night Filler Name Role Phone Michael Baez MD Primary Care Provider [phone] Encounter Details Date Type Department Care Team (Late st Contact Info) Description 12/16/2013 Conversion Encounter [facility] HISTORICAL CONV [address] [place] [address] Interface, See Report Social History [...] See Report - 12/16/2013 8:29 AM EST [place] [address] DISCHARGE SUMMARY PATIENT NAME: SUSANNAH ANDRES [address] [facility] NO: [id number] DATE OF : 1950 DATE OF ADMISSION: [...] Aliya Miller M.D.* MBS/rxll Voice Rec. ID #[id number] Voice Original ID #[id number] Doc ID #[id number] Rev. #0 cc: Aliya Miller M.D.* Dr. Juan David Lopez M.D.* DO NOT TEXT EDIT THIS LINE :CDS:[id number]: Authenticated and Edited by ALIYA MILLER MD On 12/23/13 12:06:53 PM documented in this encounter H&P Notes * Interface, See Report - 12/16/2013 8:29 AM EST [address] HISTORY AND PHYSICAL PATIENT NAME: SUSANNAH ANDRES 2 [facility] NO: [id number] DATE OF : 1950 DATE OF ADMISSION: 12/16/2013 ADMITTING PHYSICIAN: Aliya Miller M.D. PRIMARY CARE PHYSICIAN: Dr. Garcia formerly Dr. Lynn SENIOR RUBY DEVELOPER: Robel Chicas M.D. REFERRING PHYSICIAN: Ingrid Lopez [...] Negative stress test, 06/2013. 3. History of [place]. 4. Obesity with BMI over 32. 5. [...] Aliya Miller M.D.* HARSHAD/danyell Voice Rec. ID #[id number] Voice Original ID #[id number] Doc ID #[id number] Rev. #0 cc: Aliya Miller M.D.* Ingrid Lopez M.D.* DO NOT TEXT EDIT THIS LINE :[facility]:[id number]: Authenticated by ALIYA MILLER MD On 01/06/2014 07:44:48 AM documented in this encounter OR Notes * Op Note - Interface, See Report - 12/16/2013 8:29 AM EST [place] [address] OPERATIVE REPORT PATIENT NAME: SUSANNAH ANDRES1 2 [facility] NO: [id number] DATE OF : 1950 DATE OF OPERATION: 12/16/2013 SURGEON: Ingrid Lopez M.D. WELT WHEELER: Nikole Tovar PA-C PREOPERATIVE DIAGNOSIS: Advanced right [...] closed with #1 Vicryl in an interrupted beczls-wp-csqfk fashion, followed by closure of the deep [...] Ingrid Lopez M.D.* MK/rxmjh Voice Rec. ID #[id number] Original Voice Rec. ID #[id number] Doc ID #[id number] Revision Count: 0 cc: Ingrid Lopez M.D.* Shahid Fall M.D.* Nikole Tovar PA-C <start header> [place] [address] OPERATIVE REPORT PATIENT NAME: SUSANNAH ANDRES1 2 [facility] NO: [id number] DATE OF : 1950 <end header> DO NOT TEXT EDIT THIS LINE :[employer] ESSBASE DEVELOPER:[id number]: Authenticated by INGRID LOPEZ M.D. On 12/18/2013 [...] EST) Magnesium 2.0 1.7 - 2.4 mg/dL [facility] Blood specimen (specimen) 12/18/2013 4:49 AM EST Narrative [facility] - 12/18/2013 5:31 AM EST Specimen Type: Blood Aliya Miller MD LAB BLOOD ORDERABLES Fi nal Result [facility] [address] [id number], * (ABNORMAL) CBC (No diff) (12/18/2013 4:49 AM EST) WBC 8.79 3.50 - 10.80 K/[facility] RBC 3.88(L) 3.89 - 5.14 M/[facility] Hemoglobin 11.9 11.5 - 15.5 g/dL [facility] Hematocrit 34.9 34.5 - 44.0 % [facility] MCV 89.9 80.0 - 99.0 fL [facility] MCH 30.7 27.0 - 31.0 pg [facility] MCHC 34.1 32.0 - 36.0 g/dL [facility] RDW-CV 13.1 11.3 - 14.5 % [facility] Platelets 271 150 - 450 K/[facility] Blood specimen (specimen) 12/18/2013 4:49 AM EST [facility] - 12/18/2013 5:15 AM EST Specimen Type: Blood Ingrid Lopez MD LAB BLOOD ORDERABLES Final Res ult Performing Organization Address [facility] [place] [address], * (ABNORMAL) Magnesium (12/17/2013 4:55 AM EST) Pathologist [facility] Magnesium 1.4(L) 1.7 - 2.4 mg/dL [facility] Blood specimen (specimen) 12/17/2013 4:55 AM EST [facility] - 12/17/2013 5:52 AM EST Specimen Type: Blood Aliya Miller MD LAB BLOOD ORDERABLES Fi nal Result Performing Organization Address [facility] [place] [address], * Troponin (12/17/2013 4:55 AM EST) Pathologist [facility] Troponin I 0.04 0.00 - 0.60 ng/mL [facility] Blood specimen (specimen) 12/17/2013 4:55 AM EST [facility] - 12/17/2013 5:52 AM EST Specimen Type: Blood Aliya Miller MD LAB BLOOD ORDERABLES Fi nal Result Performing Organization Address [facility] [place] [address], * Vitamin D 25 hydroxy (12/17/2013 4:55 AM EST) Pathologist [facility] 25 Hydroxy, Vitamin D 52.1 ng/mL [facility] Comment: DF by IF @ 12/17/2013 05:57 Reference Ranges for Total Vitamin D 25(OH) Deficiency <20.0 ng/ml Insufficiency 20-30 ng/ml Sufficiency 30-100 ng/ml Toxicity >100 ng/ml Blood specimen (specimen) 12/17/2013 4:55 AM EST [facility] - 12/17/2013 5:57 AM EST Specimen Type: Blood Aliya Miller MD LAB BLOOD ORDERABLES Fi nal Result Performing Organization Address City/[facility]/[place] [address], * (ABNORMAL) Basic metabolic panel (12/17/2013 4:55 AM EST) Pathologist [facility] Glucose 119(H) 70 - 100 mg/dL [facility] BUN 9 6 - 20 mg/dL [facility] Creatinine 0.9 0.6 - 1.3 mg/dL [facility] Sodium 134(L) 136 - 145 mmol/L [facility] Potassium 3.7 3.4 - 5.4 mmol/L [facility] Chloride 100 98 - 107 mmol/L [facility] CO2 28 20 - 31 mmol/L [facility] Calcium 8.8 8.7 - 10.4 mg/dL [facility] eGFR 67 ml/min/1.7 32 [facility] Comment: DF by IF @ 12/17/2013 05:52 National Kidney Foundation Guidelines Stage Description GFR 1 Normal or High 90+ 2 Mild decrease 60-89 3 Moderate decrease 30-59 4 Severe decrease 15-29 5 Kidney failure <15 Anion Gap 7 3 - 11 mmol/L [facility] Blood specimen (specimen) 12/17/2013 4:55 AM EST Narrative [facility] - 12/17/2013 5:52 AM EST Specimen Type: Blood Aliya Miller MD LAB BLOOD ORDERABLES [facility] Result Performing Organization Address City/State/[facility] [place] [address], * CBC (No diff) (12/17/2013 4:55 AM EST) WBC 9.42 3.50 - 10.80 K/[facility] RBC 4.00 3.89 - 5.14 M/[facility] Hemoglobin 12.3 11.5 - 15.5 g/dL [facility] Hematocrit 36.2 34.5 - 44.0 % [facility] MCV 90.5 80.0 - 99.0 fL [facility] MCH 30.8 27.0 - 31.0 pg [facility] MCHC 34.0 32.0 - 36.0 g/dL [facility] RDW-CV 13.2 11.3 - 14.5 % [facility] Platelets 287 150 - 450 K/[facility] Blood specimen (specimen) 12/17/2013 4:55 AM EST Narrative [facility] - 12/17/2013 5:30 AM EST Specimen Type: Blood Ingrid Lopez MD LAB BLOOD ORDERABLES Final Res ult [facility] [address] [place] [address], * XR KNEE 1 OR 2 VW [...] EST) Glucose 118 75 - 125 mg/dL [facility] Blood specimen (specimen) 12/16/2013 12:51 PM EST [facility] - 12/16/2013 12:54 PM EST Specimen Type: Blood Historical Provider POINT OF CARE TEST ORDERA BLES Final Result Performing Organization Address [facility] [place] [address], * (ABNORMAL) OR Potassium (12/16/2013 8:58 AM EST) Potassium 3.46(L) 3.5 - 5.3 mmol/L [facility] Venous blood specimen (specimen) 12/16/2013 8:58 AM EST [facility] - 12/16/2013 9:23 AM EST Specimen Type: Venous Ingrid Lopez MD LAB BLOOD ORDERABLES Final Res ult Performing Organization Address [facility] [place] [address], * Protime-INR (12/16/2013 8:58 AM EST) Protime 10.9 9.6 - 11.5 Seconds [facility] INR 1.02 [facility] Comment: US by IF @ 12/16/2013 09:46 Therapeutic Ranges for INR: 2.0-3.0 (PT 20-30) 2.5-3.5 (PT 25-34) Blood specimen (specimen) 12/16/2013 8:58 AM EST Narrative [facility] - 12/16/2013 9:46 AM EST Specimen Type: Blood Ingrid Lopez MD LAB BLOOD ORDERABLES Final Res ult Performing Organization Address [facility] [place] [address], * Type and screen (12/16/2013 8:58 AM EST) ABORh A Rh Negative [facility] Antibody Screen Negative [facility] Blood specimen (specimen) 12/16/2013 8:58 AM EST Narrative [facility] - 12/16/2013 10:08 AM EST Specimen Type: Blood Ingrid Lopez MD BLOOD BANK TEST ORDERABLES Fin al Result Performing Organization Address [facility] de Phone Number [facility] [address] [place] [address], * SCANNED EKG (12/16/2013) [facility] ORDERABLES Final Result * X-RAY [...] IMPRESSION- No acute cardiopulmonary disease. E: 12/10/2013 Restaurant Cook- ALEKSANDRA Nascimento Radiologist- ELKIN JACKSON [facility] Radiologist- ELKIN JACKSON Released Date Time- 12/10/13 [...] IMPRESSION- No acute cardiopulmonary disease. E: 12/10/2013 Restaurant Cook- ALEKSANDRA Nascimento Radiologist- ELKIN JACKSON [facility] Radiologist- ELKIN JACKSON Released Date Time- 12/10/13 1451 Ingrid Lopez MD [facility] DIAGNOSTIC IMAGING ORDERAB LES Final Result * (ABNORMAL) C-reactive protein (12/10/2013 10:30 AM EST) C-Reactive Protein 10.400(H) 0.000 - 10.000 mg/L [email or web address] Blood specimen (specimen) 12/10/2013 10:30 AM EST Narrative [email or web address] - 12/10/2013 11:19 AM EST Specimen Type: Serum 1 Ingrid Lopez MD LAB BLOOD ORDERABLES Final Res ult [email or web address] [address] [place] [address], * Sedimentation rate (12/10/2013 10:30 AM EST) Pathologist [facility] Sed Rate 5 0 - 30 mm/hr [facility] Blood specimen (specimen) 12/10/2013 10:30 AM EST [facility] - 12/10/2013 11:39 AM EST Specimen Type: Blood Ingrid Lopez MD LAB BLOOD ORDERABLES Final Res ult Performing Organization Address [facility] de Phone Number [facility] [address] [place] [address], * APTT (12/10/2013 10:30 AM EST) Pathologist [facility] PTT 27 24 - 31 Seconds [facility] Comment: US by IF @ 12/10/2013 11:14 PTT = The equivalent PTT values for the therapeutic range of heparin levels at 0.3 to 0.5 U/ml are 45 to 60 seconds. PTT = The equivalent PTT values for the therapeutic range of heparin levels at 0.3 to 0.5 U/ml are 45 to 60 seconds. Blood specimen (specimen) 12/10/2013 10:30 AM EST [facility] - 12/10/2013 11:14 AM EST Specimen Type: Blood Ingrid Lopez MD LAB BLOOD ORDERABLES Final Res ult Performing Organization Address [facility] de Phone Number [facility] [address] [place] [address], * Protime-INR (12/10/2013 10:30 AM EST) Pathologist [facility] Protime 10.7 9.6 - 11.5 Seconds [facility] INR 1.00 [facility] Comment: US by IF @ 12/10/2013 11:14 Therapeutic Ranges for INR: 2.0-3.0 (PT 20-30) 2.5-3.5 (PT 25-34) Blood specimen (specimen) 12/10/2013 10:30 AM EST Narrative [facility] - 12/10/2013 11:14 AM EST Specimen Type: Blood Ingrid Lopez MD LAB BLOOD ORDERABLES Final Res ult Performing Organization Address [facility] de Phone Number [facility] [address] [place] [address], * Hemoglobin A1c (12/10/2013 10:30 AM EST) Hemoglobin A1C 5.7 4.00 - 6.00 % [facility] Comment: DF by IF @ 12/10/2013 11:16 The [place] [employer] recommends maintenance of Hemoglobin A1C at 7.0% or lower. Goals for Hemoglobin A1C reduction may need to be modified if hypoglycemia is a problem. Mean Bld Glu Estim. 111 mg/dL [facility] Blood specimen (specimen) 12/10/2013 10:30 AM EST Narrative [facility] - 12/10/2013 11:16 AM EST Specimen Type: Blood Ingrid Lopez MD LAB BLOOD ORDERABLES Final Res ult Performing Organization Address [facility] de Phone Number [facility] [address] [place] [address], * Basic metabolic panel (12/10/2013 10:30 AM EST) Glucose 96 70 - 100 mg/dL [facility] BUN 16 6 - 20 mg/dL [facility] Creatinine 1.0 0.6 - 1.3 mg/dL [facility] Sodium 142 136 - 145 mmol/L [facility] Potassium 3.8 3.4 - 5.4 mmol/L [facility] Chloride 104 98 - 107 mmol/L [facility] CO2 28 20 - 31 mmol/L [facility] Calcium 9.6 8.7 - 10.4 mg/dL [facility] eGFR 60 ml/min/1.7 32 [facility] Comment: DF by IF @ 12/10/2013 11:21 National Kidney Foundation Guidelines Stage Description GFR 1 Normal or High 90+ 2 Mild decrease 60-89 3 Moderate decrease 30-59 4 Severe decrease 15-29 5 Kidney failure <15 Anion Gap 9 3 - 11 mmol/L [facility] Blood specimen (specimen) 12/10/2013 10:30 AM EST Narrative [facility] - 12/10/2013 11:21 AM EST Specimen Type: Blood Ingrid Lopez MD LAB BLOOD ORDERABLES Final Res ult [place] [address] [place] [address], * (ABNORMAL) CBC and Differential (12/10/2013 10:30 AM EST) WBC 6.61 3.50 - 10.80 K/[facility] RBC 4.85 3.89 - 5.14 /[facility] Hemoglobin 15.2 11.5 - 15.5 g/dL [facility] Hematocrit 43.6 34.5 - 44.0 % [facility] MCV 89.9 80.0 - 99.0 fL [facility] MCH 31.3(H) 27.0 - 31.0 pg [facility] MCHC 34.9 32.0 - 36.0 g/dL [facility] RDW-CV 13.2 11.3 - 14.5 % [facility] Platelets 330 150 - 450 K/[facility] Neutrophils Absolute 3.79 1.50 - 8.30 [facility] Lymphocytes Absolute 2.03 0.60 - 4.80 K/[facility] Monocytes Absolute 0.48 0.00 - 1.00 /[facility] Eosinophils Absolute 0.26 0.10 - 0.30 K/mcL [facility] Basophils Absolute 0.03 0.00 - 0.20 K/[facility] Neutrophil Rel % 57.3 41.0 - 71.0 % [facility] Lymphocyte Rel % 30.7 24.0 - 44.0 % [facility] Monocyte Rel % 7.3 0.0 - 12.0 % [facility] Eosinophil Rel % 3.9(H) 0.0 - 3.0 % [facility] Basophil Rel % 0.5 0.0 - 1.0 % [facility] Immature Granulocyte Rel % 0.3 0.0 - 0.6 % [facility] Blood specimen (specimen) 12/10/2013 10:30 AM EST Narrative [facility] - 12/10/2013 10:56 AM EST Specimen Type: Blood Ingrid Lopez MD LAB BLOOD ORDERABLES Final Res ult [facility] [address] [place] [address], * Urinalysis Without Microscopic (12/10/2013 10:26 AM EST) Color, UA Yellow [facility] Appearance, UA Clear [facility] pH, UA 5.5 4.5 - 8.0 [facility] Specific [place], UA 1.024 1.001 - 1.030 [facility] Glucose, UA Negative NEGATIVE mg/dL [facility] Ketones, UA Negative NEGATIVE [facility] Bilirubin, UA Negative NEGATIVE [facility] Blood, UA Negative NEGATIVE [facility] Protein, UA Negative NEGATIVE mg/dL [facility] Comment: DF by IF @ 12/10/2013 10:55 This test was previously referred to as Albumin Nitrite, UA Negative NEGATIVE [facility] Leukocytes, UA Negative NEGATIVE [facility] Urobilinogen, UA 0.2 0.2 - 1.0 mg/dL [facility] Urine specimen (specimen) Urine specimen obtained by clean catch procedure / Unknown 12/10/2013 10:26 AM EST Narrative [facility] - 12/10/2013 10:55 AM EST Specimen Type: Urine Specimen Source: Clean Catch Urine Microscopic not indicated. Ingrid Lopez MD URINE ORDERABLES Final Result Performing Organization Address City/State/[facility] Co de Phone Number [facility] [address] [place] [address], documented in this encounter Visit Diagnoses Not on filedocumented in this encounter Care Teams Night Filler Relationship Specialty Start Date End Date Michael Baez MD [facility] [address] [place] [address] PCP - General Adolescent Medicine 04/25/23 documented as of this encounter
--- OUTSIDE RECORDS SUMMARY | 2025-10-26 12:57 | XMS_ITS | Clinical Summary ---
[facility] Address [address] [place] [address] Care Team Providers Care Assistant Laboratory Director Name Role Phone Michael Baez MD Primary Care Provider [phone] Allergies Active Allergy Reactions Criticality Noted Date [...] Payer (Ef fective 2004-Present) Name:Supriya Andres Member ID:[id number] Relation to Subscriber:Self Name:Supriya Andres Subscriber ID:[id number] Payer ID:[id number] Group ID:Not on file Type:Not on file Address: [address] [place] [id number] [facility] MEDICARE REPLACEMENT Care Teams Assistant Laboratory Director Relationship Specialty Start Date End Date Michael Baez MD [address] [facility] [address] [place] [address] PCP - General Adolescent Medicine 04/25/23
--- OUTSIDE RECORDS SUMMARY | 2025-10-26 12:57 | XMS_ITS | Encounter Summary ---
Author Organization [facility] Address [address] [place] [address] Care Team Providers Care Team Assistant Name Role Phone Michael Baez MD Primary Care Provider [phone] Acacia Scott APRN Unavailable [phone] Virgilio Nguyễn MD Unavailable [phone] Encounter Details Date Type Department Care [...] any time in the past 12 m [facility], were you homeless or living in a mcfp (including now)? 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-INSHORE UNDERSEA WARFARE OFFICER) to steady your nerves or to [...] Visit [place] [facility] [address] [place] [address] Kylah Alejandra, PA [address] [place] [address] documented as of this encounter Visit Diagnoses Not on filedocumented in this encounter Additional Health Concerns Assessment Noted Time A fall risk assessment has been complete d for the patient 08/07/2025 2:23 PM EDT A Body Mass Index follow-up plan has been documented for the patient 08/07/2025 4:31 PM EDT documented as of this encounter Care Teams Team Assistant Relationship Specialty Start Date End Date Michael Baez MD [address] [place] [address] PCP - General 04/08/21 Acacia Scott APRN [address] [place] [address] Nurse Practitioner Cardiology 03/27/22 Virgilio Nguyễn MD [address] [place] [place] [address] Referring Physician 10/07/24 documented as of this encounter
--- OUTSIDE RECORDS SUMMARY | 2025-10-26 12:57 | XMS_ITS | Encounter Summary ---
Author Organization [facility] Address [address] [place] [address] Care Team Providers Care It Senior Software Engineer Java Name Role Phone Michael Baez MD Primary Care Provider [phone] Acacia Scott RECEIVER DISPATCHER Unavailable [phone] Virgilio Nguyễn MD Unavailable [phone] Reason for Referral * Imaging (Routine) - Pending Review Specialty Diagnoses / Procedures Referred By Terrence prasad Referred To Contact Radiology Diagnoses Cerebral aneurysm Procedures MR Angio Head w IV Contrast Prachi Hodgson PA [address] [facility] [address] [place] [address] Phone: tel: fax: Referral ID Status Reason Start Date Expiration Date V isits Requested Visits Authorized [id number] Pending Review 09/10/2025 03/12/2027 1 1 Encounter Details Date Type Department Care Team (Late st Contact Info) Description 09/10/2025 Orders Only [place] [facility] [address] [place] [address] Prachi Hodgson PA [address] [facility] [address] [place] [address] Cerebral aneurysm (Primary Dx) Social [...] any time in the past 12 m [facility], were you homeless or living in a snf (including now)? 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-CENTRIFUGE SEPARATOR TENDER) to 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 0 05/03/2025 CAGE Questionnaire Score 0 025 Utilities Answer Date Recorded In the past 12 months has th e [employer], gas, oil, or water [employer] threatened to shut off services in your [...] [address] [place] [address] Kylah Alejandra PA [address] [place] [address] documented as of this encounter Results * MR Angio Head w IV Contrast (10/20/2025 2:41 PM EST) Anatomical Region Laterality Modality Head Magnetic Resonan ce Impressions 10/20/2025 6:48 PM EST Status post right JOANH coiling and callosomarginal artery stenting. There is [...] INDICATION: aneurysm stent coil performed here 2024, Al-Kawprabhjot/Sotelo TECHNIQUE: 3-D obap-og-puapay MR angiography was performed through the major [...] Overall intrinsic flow related enhancement suggesting patency.. [place] and Major Peripheral Branches: Sequela [...] INDICATION: aneurysm stent coil performed here 2024, Joe-Rikki/Sotelo TECHNIQUE: 3-D xqsv-ec-uhlqsc MR angiography was performed through the majorintracranial [...] degradation. Overall intrinsic flowrelated enhancement suggesting patency.. [place] and Major Peripheral Branches: Sequela [...] on 10/20/2025 6:48 PM us Prachi BOOTH IMMargie MRI PROCEDURES Final Res ult documented in this encounter Visit Diagnoses Diagnosis Cerebral aneurysm- Primary Cerebral aneurysm, nonruptured Cerebral aneurysm Cerebral aneurysm, nonruptured documented in this encounter Additional Health Concerns Assessment Noted Time A fall risk assessment has been complete d for the patient 08/07/2025 2:23 PM EDT A Body Mass Index follow-up plan has been documented for the patient 08/07/2025 4:31 PM EDT documented as of this encounter Care Teams It Senior Software Engineer Java Relationship Specialty Start Date End Date Michael Baez MD [address] [place] [address] PCP - General 04/08/21 Acacia Scott APRN [address] [place] [phone] Nurse Practitioner Cardiology 03/27/22 Virgilio Nguyễn MD [address] [place] [place] [address] Referring Physician 10/07/24 documented as of this encounter
--- OUTSIDE RECORDS SUMMARY | 2025-10-26 12:57 | XMS_ITS | Encounter Summary ---
Author Organization [facility] Address [address] [place] [address] Care Team Providers Care Lead Housekeeper Name Role Phone Michael Baez MD Primary Care Provider + [phone] Acacia Scott APRN Unavailable [phone] Virgilio Nguyễn MD Unavailable [phone] Encounter Details Date Type Department Care [...] first t pippa in the morning (EYE-DIRECTOR FUNERAL) to steady your nerves or to get [...] Visit [place] [facility] [address] [place] [address] Kylah Alejandra, PA [address] [place] [address] documented as of this encounter Visit Diagnoses Not on filedocumented in this encounter Additional Health Concerns Assessment Noted Time A fall risk assessment has been complete d for the patient 08/07/2025 2:23 PM EDT A Body Mass Index follow-up plan has been documented for the patient 08/07/2025 4:31 PM EDT documented as of this encounter Care Teams Lead Housekeeper Relationship Specialty Start Date End Date Michael Baez MD [address] [place] [address] PCP - General 04/08/21 Acacia Scott APRN [address] [place] [address] Nurse Practitioner Cardiology 03/27/22 Virgilio Nguyễn MD [address] [place] [address] Referring Physician 10/07/24 documented as of this encounter
--- OUTSIDE RECORDS SUMMARY | 2025-10-26 12:57 | XMS_ITS | Encounter Summary ---
Author Organization Healthcare Address [address] [place] [address] Care Team Providers Care Load Mixer Name Role Phone Michael Baez MD Primary Care Provider + [phone] Acacia Scott APRN Unavailable [phone] Virgilio Nguyễn MD Unavailable [phone] Elisa Camacho CALCULATING MACHINE OPERATOR Unavailable Unavailab le Encounter Details Date Type Department Care Team (Late st Contact Info) Description 09/01/2024 Orders Only External Location [address] [place] [address] Provider, External Social History Tobacco Use Types [...] drink first t pippa in the morning (EYE-GEAR CHANGER) to steady your nerves or to get [...] Description 03/15/2026 11:20 AM EDT Office Visit [place] [facility] [address] [place] [address] Kylah Alejandra PA [address] [place] [address] documented as of this encounter [...] documented as of this encounter Care Teams Load Mixer Relationship Specialty Start Date End Date Michael Baez MD [address] [place] [address] PCP - General 04/08/21 Acacia Scott APRN [address] [place] [address] Nurse Practitioner Cardiology 03/27/22 Virgilio Nguyễn MD [address] [place] [address] Referring Physician 10/07/24 Elisa Camacho LPN [facility] None TCM Nurse 05/07/25 06/06/25 documented as of this encounter
[2025-10-26 13:24] LABS: Blood Urea Nitrogen 10 mg/dl (7-17); Creatinine,Serum 0.90 mg/dl (0.52-1.04); Estimated Glomerular Filt Rate 61 ml/min (>60); GFR (African American) 74 ML/MIN (>60)
--- NOTE | 2025-10-26 13:30 | CT_ITS ---
FINAL REPORT TECHNIQUE: Axial imaging of the chest is obtained after the administration of contrast. 3-D MIP reformatted images were also obtained and reviewed per PE protocol. This study was performed with techniques to keep radiation doses as low as reasonably achievable (ALARA). Individualized dose reduction techniques using automated exposure control or adjustment of mA and/or kV according to the patient's size were employed. CLINICAL HISTORY: aortic aneursym COMPARISON: 05/01/2025 FINDINGS: The pulmonary arteries are well filled. There is no evidence of pulmonary embolus. There is no aortic dissection. An ascending aortic aneurysm is once again noted, measuring 42 mm in diameter, stable when compared to the prior exam. Heart size is normal. There is no axillary lymphadenopathy. The previously seen mediastinal and hilar adenopathy has resolved since the prior exam. Minimal right lower lobe atelectasis is present. The opacification noted in the lung sanders on the prior exam has subsequently resolved. A small right pleural effusion remains, without evidence of a left pleural effusion or pericardial effusion. Limited evaluation of the upper abdomen is without acute abnormality. No acute osseous abnormality. There is a stable midthoracic compression fracture, unchanged since the prior exam. IMPRESSION: Ascending aortic aneurysm, 42 mm in diameter, stable. The previously seen mediastinal and hilar adenopathy and parenchymal opacities have otherwise resolved. Minimal right lower lobe atelectasis remains present. Reviewed, Interpreted and Dictated by Marisabel Lawson MD Transcribed by Antonia Sepulveda Authenticated and [facility]
--- NOTE | 2025-10-26 13:30 | CT_ITS ---
FINAL REPORT TECHNIQUE: Thin section axial images were obtained through the abdomen and pelvis after contrast injection per CT angiogram protocol. Multiplanar reconstruction images were obtained from the axial data. This exam was performed with techniques to keep radiation dose as low as reasonably achievable. This includes automated exposure control, adjustment of the MA and KVP, and iterative reconstruction technique. CLINICAL HISTORY: aortic aneursym COMPARISON: 01/11/2025 FINDINGS: CTA: No abdominal aortic aneurysm or aortic dissection. The celiac axis, superior mesenteric artery, and inferior mesenteric artery are patent without stenosis. The renal arteries are patent with mild right renal artery stenosis. The common iliac arteries and visualized portions of the internal and external iliac arteries are patent. No significant stenosis. NONVASCULAR: Gallstones are present in the gallbladder. There is a stable small left adrenal nodule. The solid abdominal organs are otherwise without acute abnormality. The GI tract is without acute abnormality. No lymphadenopathy or free fluid. The uterus is absent. No acute osseous abnormality. IMPRESSION: No evidence of abdominal aortic aneurysm or dissection. No significant stenosis. The mesenteric arteries are patent without significant stenosis. There is mild right renal artery stenosis. Reviewed, Interpreted and Dictated by Marisabel Lawson MD Transcribed by Antonia Sepulveda Authenticated and [facility]
[2025-10-26] MEDS: 0.9 % SODIUM CHLORIDE 50 ML VIAL IV (14:02)
[2025-10-26] MEDS: IOPAMIDOL-370 (76%);100ML BOTTLE 100 ML IV (14:02)
[2025-10-26] MEDS: SODIUM CHLORIDE 0.9% 10ML SYR (RAD ONLY) 10 ML IV (14:02)
== END 2025-10-26 23:59 | disposition home or self-care (01) ==
LOC: RAD 12:52
PROVIDERS: PCP Internal Medicine Adolescent Medicine; Visit Provider Nurse Practitioner
DX: I71.21 Aneurysm of the ascending aorta, without rupture (principal); J98.11 Atelectasis; I70.1 Atherosclerosis of renal artery
CPT/HCPCS: 36415; 71275; 74174; 82565; 84520; Q9967

== ENCOUNTER 2025-11-18 15:31 | Emergency (ER) | payer MEDICARE, SELFPAY ==
--- OUTSIDE RECORDS SUMMARY | 2025-10-20 12:04 | XMS_ITS | Encounter Summary ---
Author Organization [facility] Address [address] [place] [address] Care Team Providers Care Air Chief Marshal Name Role Phone Michael Baez MD Primary Care Provider [phone] Acacia Scott CRIMINAL RESEARCHER Unavailable [phone] DelmaAnisajani Unavailable Reason for Referral * Imaging (Routine) - Denied Specialty Diagnoses / Procedures Referred By Bryannaac t Referred To Contact Radiology Diagnoses Cerebral aneurysm Procedures MR Angio Head w IV Contrast Prachi Hodgson PA [address] [address] Phone: tel: fax: Referral ID Status Reason Start Date Expiration Date Visits Re quested Visits Authorized [id number] Denied 09/10/2025 03/12/2027 1 0 Reason for Visit * Imaging (Routine) - Denied Specialty Diagnoses / Procedures Referred By Terrence prasad Referred To Contact Radiology Diagnoses Cerebral aneurysm Procedures MR Angio Head w IV Contrast Prachi Hodgson PA [address] [facility] [address] [place] [address] Phone: tel: fax: Referral ID Status Reason Start Date Expiration Date Visits Re quested Visits Authorized [id number] Denied 09/10/2025 03/12/2027 1 0 Encounter Details Date Type Department Care Team (Latest Contact Info) Description 10/20/2025 12:04 PM EST - 10/20/2025 11:59 PM EST Hospital Encounter [facility] A Radiology [address] [place] [address] Cerebral aneurysm Discharge Disposition: Home or Self [...] any time in the past 12 m [facility], were you homeless or living [...] drink first t pippa in the morning (EYE-HEALTHCARE TRANSLATOR) to 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 0 05/03/2025 CAGE Questionnaire Score 0 025 Utilities Answer Date Recorded In the past 12 months has th e [employer], gas, oil, or water company threatened to shut off services in your home? No 05/08/2025 Comments No Sex and Gender Information Value Date Recorded Sex Assigned at Not on file Legal Sex Female 7:36 PM EDT Gender Identity Not on file Sexual Orientation Not on file documented as of this encounter Last Filed Vital Signs Vital Sign Reading Time Taken Comments Blood Pressure - - Pulse - - Temperature - - Respiratory Rate - - Oxygen Saturation - - Inhaled Oxygen Concentration - - Weight 75.8 kg (167 lb) 10/20/2025 2:25 PM EST Height - - Body Mass Index 28.67 09/09/2025 8:55 AM EDT documented in this encounter Functional Status * Weight Answer Date of Assessment Author 267110/20/2025 2:25 PM Hiral Blanco * Total Weight Change Percent Answer Date of Assessment Author 22210/20/2025 2:25 PM EST Hiral Rivera * Weight Change Since Preop Answer Date of Assessment Author 75.73 10/20/2025 2:25 PM EST Hiral Rivera * Weight Change Since Last Visit Answer Date of Assessment Author 75.73 10/20/2025 2:25 PM Hiral Blanco * Weight Change 24 hrs Answer Date of Assessment Author -.449 10/20/2025 2:25 PM EST Hiral Rivera * Weight Change Since Preop Answer Date of Assessment Author 75.75 10/20/2025 2:25 PM EST Wesley Riveraista * Weight Change Since Last Visit Answer Date of Assessment Author 75.75 10/20/2025 2:25 PM EST Wesley Riveraista * Difference in Weight Since Last Visit Answer Date of Assessment Author -0.45 10/20/2025 2:25 PM EST Wesley Riveraista * Weight Answer Date of Assessment Author 2672 10/20/2025 2:25 PM EST Wesley Riveraista documented as of this encounter Mental Status * Weight Answer Entry Date Author 2672 10/20/2025 2:25 PM EST Rivera, Hiral * Total Weight Change Percent Answer Entry Date Author 22210/20/2025 2:25 PM EST Rivera, Hiral * Weight Change Since Preop Answer Entry Date Author 75.73 10/20/2025 2:25 PM EST Rivera, Hiral * Weight Change Since Last Visit Answer Entry Date Author 75.73 10/20/2025 2:25 PM EST Wesley Riveraista * Weight Change 24 hrs Answer Entry Date Author -.449 10/20/2025 2:25 PM EST Rivera, Hiral * Weight Change Since Preop Answer Entry Date Author 75.75 10/20/2025 2:25 PM EST Rivera, Hiral * Weight Change Since Last Visit Answer Entry Date Author 75.75 10/20/2025 2:25 PM EST Rivera, Hiral * Difference in Weight Since Last Visit Answer Entry Date Author -0.45 10/20/2025 2:25 PM EST Hiral Rivera documented in this encounter Medications at Time [...] tablet Take 1 tablet by mouth daily. 90 tablet 1 10/20/2025 Eliquis 5 MG tablet Take 1 tablet by mouth 2 times a day. 180 tablet 3 09/14/2025 Entresto 24-26 MG tablet 08/05/2025 escitalopram (Lexapro) 20 MG tablet Take 1 tablet by mouth daily. Evolocumab (Repatha) 140 MG/ML solution auto-injector autoinjector Inject 1 mL under the skin every 14 days. 2 mL 1 10/20/2025 famotidine (Pepcid) 20 MG tablet Take 1 tablet by mouth 2 times a day as needed. 08/15/2021 Fasenra Pen 30 MG/ML solution auto-injector injection Inject 1 mL under the skin every 56 days. Takes every 8 weeks - next dose due 09/07/25 03/13/2024 fluticasone (Flonase) 50 MCG/ACT nasal spray Administer 1 spray into each nostril daily. 11/06/2022 fluticasone-salme terol (Advair Diskus) 500-50 MCG/ACT diskus inhaler inhale 1 puff by mouth 2 times a day 08/27/2025 gabapentin (Neurontin) 300 MG capsule Take 1 capsule by mouth 3 times a day. 08/06/2025 Gemtesa 75 MG tablet Take 75 mg by mouth daily. ipratropium-albut willow (Combivent Respimat) 20-100 MCG/ACT inhaler Inhale 1 puff 4 times a day as needed for wheezing or shortness of breath. ipratropium-albut willow (Duo-Neb) 0.5-2.5 mg/3 mL nebulizer solution INHALE THE CONTENTS OF 1 VIAL VIA NEBULIZER EVERY 8 HOURS 08/06/2025 montelukast (Singulair) 10 MG tablet Take 1 tablet by mouth nightly. pantoprazole (Protonix) 40 MG EC tablet Take 1 tablet by mouth daily before breakfast. Do not crush, chew, or split. temazepam (Restoril) 15 MG capsule Take 1 capsule by mouth nightly. 08/14/2022 traZODone (Desyrel) 50 MG tablet Take 1 tablet by mouth nightly. documented as of this encounter Plan of Treatment Upcoming Encounters Date Type Department Care Team (Late st Contact Info) Description 03/15/2026 11:20 AM EDT Office Visit [place] [facility] [address] [place] [address] Kylah Alejandra, EMMY [address] [place] [address] documented as of this encounter Procedures Procedure Name Priority Date/Time Associated Diagnosis Comments MR ANGIO HEAD W IV CONTRAST Routine 10/20/2025 2:41 PM EST Cerebral aneurysm documented in this encounter Results * MR Angio Head w IV Contrast (10/20/2025 2:41 PM EST) Anatomical Region Laterality Modality Head Magnetic Resonan ce Impressions 10/20/2025 6:48 PM EST Status post right JONAH coiling and callosomarginal artery stenting. There is suggested persistent minimal enhancement of the posterior aneurysm sac (possible residual neck), though evaluation is indeterminate due to marked motion artifact. Apparent step-off defect in the mid-basilar artery. While this is favored to represent motion artifact given the overall study quality, high-grade stenosis cannot be completely excluded on this exam. Study diagnostic quality is severely degraded by motion artifact, limiting definitive assessment of in-stent stenosis or subtle aneurysm recurrence. CRITICAL RESULT: No. COMMUNICATION: Per this written report. By electronically signing this report, I, the attending physician, attest that I have personally reviewed the images/data for the above examination(s) and agree with the final edited report. Drafted by Fátima Lau DO on 10/20/2025 5:52 PM Final report signed by Favian Turner MD on 10/20/2025 6:48 PM Narrative 10/20/2025 6:48 PM EST CLINICAL INDICATION: aneurysm stent coil performed here 2024, Lashonda/Deepak TECHNIQUE: 3-D [id number] MR angiography was performed through the major intracranial vessels and MIP images were created after administration of IV contrast, 7.6 mL of Gadavist. COMPARISON: 09/09/2025 IR embolization, 06/14/2025 IR embolization, 05/05/2025 MRI head, 05/01/[address] and CTA head and neck FINDINGS: Diagnostic Quality: Marked image degradation by motion artifact. Vertebrobasilar System: Tortuous right intracranial vertebral artery. A step-off defect in the mid basilar artery is likely from the motion artifact; high-grade stenosis of the mid basilar artery is not completely excluded (image 95, series 5). The distal basilar artery and its major visceral branches appear to show flow related enhancement suggesting patency.. Carotid Arteries: Significant motion degradation. Overall intrinsic flow related enhancement suggesting patency.. [place] of [place] and Major Peripheral Branches: Sequela of prior coil embolization of the right JONAH A2 segment and stenting of the right callosomarginal artery to the right anterior A1 segment. Persistent minimal enhancement of the posterior aneurysm sac, however this may be exaggerated by the motion artifact (series 2, image 75). The right JONAH is not well visualized at the level of the stent secondary to artifact. Other arteries are patent without stenosis, occlusion or aneurysm. Other Findings: None. Procedure Note Favian Turner MD - 10/20/2025 CLINICAL INDICATION: aneurysm stent coil performed here 2024, Lashonda/Deepak TECHNIQUE: 3-D [id number] MR angiography was performed through the majorintracranial vessels and MIP images were created after administration ofIV contrast, 7.6 mL of Gadavist. COMPARISON: 09/09/2025 IR embolization, 06/14/2025 IR embolization, 05/05/2025 MRI head,05/01/[address] and CTA head and neck FINDINGS: Diagnostic Quality: Marked image degradation by motion artifact. Vertebrobasilar System: Tortuous right intracranial vertebral artery. Astep-off defect in the mid basilar artery is likely from the motionartifact; high-grade stenosis of the mid basilar artery is not completelyexcluded (image 95, series 5). The distal basilar artery and its majorvisceral branches appear to show flow related enhancement suggestingpatency.. Carotid Arteries: Significant motion degradation. Overall intrinsic flowrelated enhancement suggesting patency.. [place] and Major Peripheral Branches: Sequela of prior coilembolization of the right JONAH A2 segment and stenting of the rightcallosomarginal artery to the right anterior A1 segment. Persistentminimal enhancement of the posterior aneurysm sac, however this may beexaggerated by the motion artifact (series 2, image 75). The right JONAH isnot well visualized at the level of the stent secondary to artifact. Other arteries are patent without stenosis, occlusion or aneurysm. Other Findings: None. IMPRESSION: Status post right JONAH coiling and callosomarginal artery stenting. Thereis suggested persistent minimal enhancement of the posterior aneurysm sac(possible residual neck), though evaluation is indeterminate due to markedmotion artifact. Apparent step-off defect in the mid-basilar artery. While this is favoredto represent motion artifact given the overall study quality, high-gradestenosis cannot be completely excluded on this exam. Study diagnostic quality is severely degraded by motion artifact, limitingdefinitive assessment of in-stent stenosis or subtle aneurysmrecurrence. CRITICAL RESULT: No. COMMUNICATION: Per this written report. By electronically signing this report, I, the attending physician, attestthat I have personally reviewed the images/data for the aboveexamination(s) and agree with the final edited report. Drafted by Fátima Lau DO on 10/20/2025 5:52 PM Final report signed by Favian Turner MD on 10/20/2025 6:48 PM Prachi BOOTH IMMargie MRI PROCEDURES Final Res ult documented in this encounter Visit Diagnoses Diagnosis Cerebral aneurysm Cerebral aneurysm, nonruptured documented in this encounter Administered Medications Inactive Administered Medications - up to 3 most recent administrations Medication Order MAR Action Action Date Dose Rate Site gadobutrol (Gadavist) injection 7.6 mL 7.6 mL (rounded from 7.58 mL = 0.1 mL/kg 75.8 kg), Intravenous, Once in imaging, 1 dose, Starting on Tu10/20/25 at 1425, Until Sun10/20/25 at 1434, Routine, Imaging Protocol Orders Given 10/20/2025 2:34 PM EST 7.6 mL documented in this encounter Additional Health Concerns Assessment Noted Time A fall risk assessment has been complete d for the patient 08/07/2025 2:23 PM EDT A Body Mass Index follow-up plan has been documented for the patient 10/20/2025 4:20 PM EST documented as of this encounter Care Teams Air Chief Marshal Relationship Specialty Start Date End Date Michael Baez MD [facility] [address] PCP - General 04/08/21 Acacia Scott APRN [address] [place] [address] Nurse Practitioner Cardiology 03/27/22 Virgilio Nguyễn [id number] Referring Physician 10/07/24 documented as of this encounter
--- OUTSIDE RECORDS SUMMARY | 2025-10-20 16:00 | XMS_ITS | Encounter Summary ---
Author Organization Healthcare Address [address] [place] [address] Care Team Providers Care Compliance Representative Dealer Name Role Phone Michael Baez MD Primary Care Provider [phone] Acaica Scott BANDOLEER PACKER Unavailable [phone] DelmaAnisajani Unavailable Reason for Visit * Consultation (Routine) - Closed Specialty Diagnoses / Procedures Referred By Conteffie t Referred To Contact Neurosurgery Diagnoses Cerebral aneurysm Anders Sotelo MD [address] [address] Phone: tel: fax: Referral ID Status Reason Start Date Expiration Date V isits Requested Visits Authorized [id number] Closed Specialty Services Required 09/10/2025 03/12/2027 1 1 Encounter Details Date Type Department Care Team (Late st Contact Info) Description 10/20/2025 4:00 PM EST Office Visit [place] [facility] [address], [address] [place] [address] David Gallego MD [id number] [place] [address] Cerebral aneurysm (Primary Dx) Social [...] time in the past 12 m [facility], were you homeless or living in a [...] first t pippa in the morning (EYE-NUCLEAR PLANT EQUIPMENT OPERATOR) to steady your nerves or to [...] Assessment Author 27.9 10/20/2025 3:44 PM EST Rodriguez, [...] Assessment Author 19.04 10/20/2025 3:44 PM EST Rodriguez, Zora Rula * EBW (lb) Answer Date [...] 122/67 10/20/2025 3:44 PM EST Rodriguez, Zora Rlua * Pulse Answer Entry Date Author 60 10/20/2025 3:44 PM EST Rodriguez, Zora Rula * SpO2 Answer Entry Date Author 97 10/20/2025 3:44 PM EST Rodriguez, Zora Rula * Height Answer Entry Date Author 64 10/20/2025 3:44 PM EST Rodriguez, Zora Rula * Weight Answer Entry Date Author 2592 10/20/2025 3:44 PM EST Rodriguez, Zoar Rula * BMI (Calculated) Answer Entry Date [...] concerns please feel free to contact us: [facility] Department of Neurosurgery [address], [place] [address] [place] [id number] ; I reviewed this patient's history, exam, [...] tablet Take 1 tablet by mouth daily. Zrgnnqo-Fnbhuorrkwu-Jdkhepcmfw (Breztri Aerosphere) 160-9-4.8 MCG/ACT aerosol Inhale 2 [...] Visit [place] [facility] [address], [address] [place] [address] Kylah Alejandra PA [address] [place] [address] documented as of this encounter Visit Diagnoses Diagnosis Cerebral aneurysm- Primary Cerebral aneurysm, nonruptured documented in this encounter Additional Health Concerns Assessment Noted Time A fall risk assessment has been complete d for the patient 08/07/2025 2:23 PM EDT A Body Mass Index follow-up plan has been documented for the patient 10/20/2025 4:20 PM EST documented as of this encounter Care Teams Compliance Representative Dealer Relationship Specialty Start Date End Date Michael Baez MD [facility] [address] PCP - General 04/08/21 Acacia Scott APRN [address] [place] [phone] Nurse Practitioner Cardiology 03/27/22 Virgilio Nguyễn [address] Referring Physician 10/07/24 documented as of this encounter
[2025-11-18] VITALS (18 sets, daily range): BP systolic 131–167; BP diastolic 69–91; PULSE 64–75; RESP 16–17; TEMP 36.4–36.9; O2SAT 93–98; BMI 26.6
--- OUTSIDE RECORDS SUMMARY | 2025-11-18 15:40 | XMS_ITS | Data Portability ---
Author Organization HAKEEM MAYITO [facility] Address [address] [facility] [address] [place] [address] Care Team Providers Care Numberer And Wirer Name Role Phone MIKA STARKEY Primary Care Provider CARMEL SHARMA Senior Lead Project Manager Assessment Encounter Date Assessment Date Assessment LastModified [...] complicates all aspects of their allergy care. [email or web address] Not available 07/19/2022 16:04:36 Plan of Treatment Reminders Order Date Submit Date Provider Last Modified By Organization Details Last Modified Time Details Appointments None recorded. Lab multiple inhalant allergen IgE Ab, quant, serum 2021 [facility], [address] [place] [address], [id number], 15:40:50 CBC w/ auto diff 2021 [facility], [address] [place] [address], [id number], 12:35:49 IgE, quantitati ve, serum 2021 [facility], [address] [place] [address], [id number], 12:35:47 Referral None recorded. Procedures pulse oximetry with exercise (PROC) 2021 aerwin [facility], [address] [place] [address], [id number], 11:34:39 Surgeries None recorded. Imaging RF, esophagus, w/ contrast PO 2021 022 [email or web address] [facility], [address] [place] [address], [address], 07:06:25 CT, chest, w/o contrast 2021 [facility], [address] [place] [address], [address], 05/27/202 2 12:21:46 Medication Orders prednisone 20 mg tablet 2021 022 DONNIE [facility], [address] [place] [address] [place], [id number], 2 11:38:48 Levaquin 500 mg tablet [address] [facility] [address] [facility], [address] [place] [address] [place], [id number], 2 13:07:02 prednisone 20 mg tablet [address] [facility] [address] [facility], [address] [place] [address] [place], [id number], 2 13:07:17 cefdinir 300 mg capsule 2018 019 [email or web address] 0 [facility], [address] [place] [address] [place], [id number], 0 14:58:08 prednisone 20 mg tablet [address] [facility] [address] [facility], [address] [place] [address] [place], [id number], 2 13:07:17 Ventolin HFA 90 mcg/actuat ion aerosol inhaler 2018 019 INTERFACE [facility], [address] [place] [address] [place], [id number], 9 15:30:58 Trelegy Ellipta 100 mcg-62.5 mcg-25 mcg powder for inhalation [address], [address] [place] [address] [place], [id number], 2 13:07:57 ipratropiu m 0.5 mg-albuter ol 3 mg (2.5 mg base)/3 mL nebulizati on soln 2018 019 [email or web address] [facility], [address], [place], [place], [id number], 14:21:09 Patient TargetsNo targets recorded. Patient Instructions Encounter Date Encounter Id Patient Instructions Last Modified By Organization Details Last Modified Time 08/07/2019 [id number] learning about chronic bronchitis aerwin Not available 08/07/2019 15:27:27 chronic obstruct yunier pulmonary disease (COPD): care instructions aerwin Not available 08/07/2019 15:30:40 learning about c opd and how to prevent lung infections aerwin Not available 08/07/2019 15:30:40 Return to clinic in 6 months. aerwin Not available 08/07/2019 16:08:48 12/11/2019 [id number] influenza (flu) vaccine: care instructions aerwin Not available 12/15/2019 08:02:22 pneumonia: care instructions aerwin Not available 12/11/2019 16:00:07 chronic obstruct yunier pulmonary disease (COPD): care instructions aerwin Not available 12/15/2019 08:02:22 learning about c opd and how to prevent lung infections aerwin Not available 12/15/2019 08:02:22 04/20/2022 [id number] I will call her with further recommendations after CT results returns. aerwin Not available 04/20/2022 14:21:28 06/21/2022 [id number] rtc after barium swallow/labs aerwin Not available 06/21/2022 16:32:39 Reason for Referral None Reported. Results Created Date Observation Date Name Description Value Unit Range Abnormal Flag Note LastModifiedBy Organization Detail LastModifiedTime 06/21/2006/21/2022 COMPL ETE BLOOD COUNT white blood cells 6.1 K/uL 3.8-10 .8 normal Not Available [facility] [address] [place], [address], 06/21/2022 12:35:49 06/21/2006/21/2022 COMPL ETE BLOOD COUNT red blood cells 4.73 M/uL 3.80-5 .20 normal Not Available [facility] [address] [place] [address], [address], 06/21/2022 12:35:49 06/21/20 22 06/21/2022 COMPL ETE BLOOD COUNT hemoglobin 14.6 g/dL 12.0-1 6.0 normal Not Available [facility] [address] [place] [address], [address], 06/21/2022 12:35:49 06/21/20 22 06/21/2022 COMPL ETE BLOOD COUNT hematocrit 42.6 % 35.0-4 7.0 normal Not Available [facility] [address] [place] [address], [address], 06/21/2022 12:35:49 06/21/20 22 06/21/2022 COMPL ETE BLOOD COUNT MCV 90 fL 80-100 normal Not Available [facility] [address] [place] [address], [address], 06/21/2022 12:35:49 06/21/20 22 06/21/2022 COMPL ETE BLOOD COUNT MCH 31 pg 26-35 normal Not Available [facility] [address] [place] [address], [address], 06/21/2022 12:35:49 06/21/20 22 06/21/2022 COMPL ETE BLOOD COUNT MCHC 34 g/dL 32-36 normal Not Available [facility] [address] [place] [address], [address], 06/21/2022 12:35:49 06/21/20 22 06/21/2022 COMPL ETE BLOOD COUNT RDW 13.9 % 11.0-1 5.0 normal Not Available [facility] [address] [place] [address], [address], 06/21/2022 12:35:49 06/21/20 22 06/21/2022 COMPL ETE BLOOD COUNT MPV 6.9 fL 6.2-10 .5 normal Not Available [facility] [address] [place] [address], [address], 06/21/2022 12:35:49 06/21/20 22 06/21/2022 COMPL ETE BLOOD COUNT platelet count 296 K/uL 130-40 0 normal Not Available [facility] [address] [place] [address], [address], 06/21/2022 12:35:49 06/21/20 22 06/21/2022 COMPL ETE BLOOD COUNT neutrophil,a bsolute 3.2 K/uL 1.6-8. 4 normal Not Available [facility] [address] [place] [address], [address], 06/21/2022 12:35:49 06/21/20 22 06/21/2022 COMPL ETE BLOOD COUNT lymphocyte,a bsolute 2.1 K/uL 0.4-5. 1 normal Not Available [facility] [address] [place] [address], [address], 06/21/2022 12:35:49 06/21/20 22 06/21/2022 COMPL ETE BLOOD COUNT monocyte,abs olute 0.5 K/uL 0.0-1. 2 normal Not Available [facility] [address] [place] [address], [address], 06/21/2022 12:35:49 06/21/20 22 06/21/2022 COMPL ETE BLOOD COUNT eosinophil,a bsolute 0.3 K/uL 0.0-0. 8 normal Not Available [facility] [address] [place] [address], [address], 06/21/2022 12:35:49 06/21/20 22 06/21/2022 COMPL ETE BLOOD COUNT basophil,abs olute 0.0 K/uL 0.0-0. 3 normal Not Available [facility] [address] [place] [address], [address], 06/21/2022 12:35:49 06/21/20 22 06/21/2022 COMPL ETE BLOOD COUNT % neutrophils 51.6 % 42.0-7 8.0 normal Not Available [facility] [address] [place] [address], [address], 06/21/2022 12:35:49 06/21/20 22 06/21/2022 COMPL ETE BLOOD COUNT % lymphocytes 34.5 % 11.0-4 7.0 normal Not Available [facility] [address] [place] [address], [address], 06/21/2022 12:35:49 06/21/20 22 06/21/2022 COMPL ETE BLOOD COUNT % monocytes 7.9 % 0.0-11 .0 normal Not Available [facility] [address] [place] [address], [address], 06/21/2022 12:35:49 06/21/20 22 06/21/2022 COMPL ETE BLOOD COUNT % eosinophils 5.3 % 0.0-7. 0 normal Not Available [facility] [address] [place] [address], [address], 06/21/2022 12:35:49 06/21/20 22 06/21/2022 COMPL ETE BLOOD COUNT % basophils 0.7 % 0.0-3. 0 normal Not Available [facility] [address] [place] [address], [address], 06/21/2022 12:35:49 06/21/20 22 06/21/2022 COMPL ETE BLOOD COUNT nucleated red cells 0.0 % 0.0-0. 9 normal Not Available [facility] [address] [place] [address], [address], 06/21/2022 12:35:49 06/21/20 22 06/21/2022 COMPL ETE BLOOD COUNT nucleated RBCs, absolute 0.00 K/uL not estab. normal Not Available [facility] [address] [place], [address], 06/21/2022 12:35:49 06/21/20 22 06/23/2022 IGE, TOTAL IgE, total 678 kU/L <or=11 4 high TEST PERFO RMED AT: [facility] [address] [place] [address] NGHIA Brown MD Not Available [facility] [address] [place], [address], 06/23/2022 12:35:47 07/18/20 22 07/19/2022 COMPR EHENS [...] PERFO RMED AT: [facility] [address] [facility] [place] [address] NGHIA Brown MD Not Available [facility] [address] [place] [address], [address], 07/19/2022 15:40:50 07/18/20 22 07/19/2022 COMPR EHENS YUNIER INHAL ANT PANEL cottonwood tree <0.10 kU/L normal Not Available [facility] [address] [place] [address], [address], 07/19/2022 15:40:50 07/18/20 22 07/19/2022 COMPR EHENS YUNIER INHAL ANT PANEL class 0 normal Not Available [facility] [address] [place] [address], [address], 07/19/2022 15:40:50 07/18/20 22 07/19/2022 COMPR EHENS YUNIER INHAL ANT PANEL white debby <0.10 kU/L normal Not Available [facility] [address] [place] [address], [address], 07/19/2022 15:40:50 07/18/20 22 07/19/2022 COMPR EHENS YUNIER INHAL ANT PANEL class 0 normal Not Available [facility] [address] [place] [address], [address], 07/19/2022 15:40:50 07/18/20 22 07/19/2022 COMPR EHENS YUNIER INHAL ANT PANEL white pine <0.10 kU/L normal Not Available [facility] [address] [place] [address], [address], 07/19/2022 15:40:50 07/18/20 22 07/19/2022 COMPR EHENS YUNIER INHAL ANT PANEL class 0 normal Not Available [facility] [address] [place] [address], [address], 07/19/2022 15:40:50 07/18/20 22 07/19/2022 COMPR EHENS YUNIER INHAL ANT PANEL CAT dander <0.10 kU/L normal Not Available [facility] [address] [place] [address], [address], 07/19/2022 15:40:50 07/18/20 22 07/19/2022 COMPR EHENS YUNIER INHAL ANT PANEL class 0 normal Not Available [facility] [address] [place] [address], [address], 07/19/2022 15:40:50 07/18/20 22 07/19/2022 COMPR EHENS YUNIER INHAL ANT PANEL horse dander <0.10 kU/L normal Not Available [facility] [address] [place] [address], [address], 07/19/2022 15:40:50 07/18/20 22 07/19/2022 COMPR EHENS YUNIER INHAL ANT PANEL class 0 normal Not Available [facility] [address] [place] [address], [address], 07/19/2022 15:40:50 07/18/20 22 07/19/2022 COMPR EHENS YUNIER INHAL ANT PANEL cow dander <0.10 kU/L normal Not Available [facility] [address] [place] [address], [address], 07/19/2022 15:40:50 07/18/20 22 07/19/2022 COMPR EHENS YUNIER INHAL ANT PANEL class 0 normal Not Available [facility] [address] [place] [address], [address], 07/19/2022 15:40:50 07/18/20 22 07/19/2022 COMPR EHENS YUNIER INHAL ANT PANEL dog dander 0.17 kU/L high Not Available [facility] [address] [place] [address], [address], 07/19/2022 15:40:50 07/18/20 22 07/19/2022 COMPR EHENS YUNIER INHAL ANT PANEL class 0/1 normal Not Available [facility] [address] [place] [address], [address], 07/19/2022 15:40:50 07/18/20 22 07/19/2022 COMPR EHENS YUNIER INHAL ANT PANEL goose feathers <0.10 kU/L normal Not Available [facility] [address] [place] [address], [address], 07/19/2022 15:40:50 07/18/20 22 07/19/2022 COMPR EHENS YUNIER INHAL ANT PANEL class 0 normal Not Available [facility] [address] [place] [address], [address], 07/19/2022 15:40:50 07/18/20 22 07/19/2022 COMPR EHENS YUNIER INHAL ANT PANEL penicillium notatum <0.10 kU/L normal Not Available [facility] [address] [place] [address], [address], 07/19/2022 15:40:50 07/18/20 22 07/19/2022 COMPR EHENS YUNIER INHAL ANT PANEL class 0 normal Not Available [facility] [address] [place] [address], [address], 07/19/2022 15:40:50 07/18/20 22 07/19/2022 COMPR EHENS YUNIER INHAL ANT PANEL cladosporium herbarum <0.10 kU/L normal Not Available [facility] [address] [place] [address], [address], 07/19/2022 15:40:50 07/18/20 22 07/19/2022 COMPR EHENS YUNIER INHAL ANT PANEL class 0 normal Not Available [facility] [address] [place] [address], [address], 07/19/2022 15:40:50 07/18/20 22 07/19/2022 COMPR EHENS YUNIER INHAL ANT PANEL aspergillus fumigatus <0.10 kU/L normal Not Available [facility] [address] [place] [address], [address], 07/19/2022 15:40:50 07/18/20 22 07/19/2022 COMPR EHENS YUNIER INHAL ANT PANEL class 0 normal Not Available [facility] [address] [place] [address], [address], 07/19/2022 15:40:50 07/18/20 22 07/19/2022 COMPR EHENS YUNIER INHAL ANT PANEL mucor racemosus <0.10 kU/L normal Not Available [facility] [address] [place] [address], [address], 07/19/2022 15:40:50 07/18/20 22 07/19/2022 COMPR EHENS YUNIER INHAL ANT PANEL class 0 normal Not Available [facility] [address] [place] [address], [address], 07/19/2022 15:40:50 07/18/20 22 07/19/2022 COMPR EHENS YUNIER INHAL ANT PANEL dorie albicans <0.10 kU/L normal Not Available [facility] [address] [place] [address], [address], 07/19/2022 15:40:50 07/18/20 22 07/19/2022 COMPR EHENS YUNIER INHAL ANT PANEL class 0 normal Not Available [facility] [address] [place] [address], [address], 07/19/2022 15:40:50 07/18/20 22 07/19/2022 COMPR EHENS YUNIER INHAL ANT PANEL alternaria alternata <0.10 kU/L normal Not Available [facility] [address] [place] [address], [address], 07/19/2022 15:40:50 07/18/20 22 07/19/2022 COMPR EHENS YUNIER INHAL ANT PANEL class 0 normal Not Available [facility] [address] [place] [address], [address], 07/19/2022 15:40:50 07/18/20 22 07/19/2022 COMPR EHENS YUNIER INHAL ANT PANEL D. farinae <0.10 kU/L normal Not Available [facility] [address] [place] [address], [address], 07/19/2022 15:40:50 07/18/20 22 07/19/2022 COMPR EHENS YUNIER INHAL ANT PANEL class 0 normal Not Available [facility] [address] [place] [address], [address], 07/19/2022 15:40:50 07/18/20 22 07/19/2022 COMPR EHENS YUNIER INHAL ANT PANEL D. pteronyssinu s <0.10 kU/L normal Not Available [facility] [address] [place] [address], [address], 07/19/2022 15:40:50 07/18/20 22 07/19/2022 COMPR EHENS YUNIER INHAL ANT PANEL class 0 normal Not Available [facility] [address] [place] [address], [address], 07/19/2022 15:40:50 07/18/20 22 07/19/2022 COMPR EHENS YUNIER INHAL ANT PANEL cockroach <0.10 kU/L normal Not Available [facility] [address] [place] [address], [address], 07/19/2022 15:40:50 07/18/20 22 07/19/2022 COMPR EHENS YUNIER INHAL ANT PANEL class 0 normal Not Available [facility] [address] [place] [address], [address], 07/19/2022 15:40:50 07/18/20 22 07/19/2022 COMPR EHENS YUNIER INHAL ANT PANEL epicoccum purpurasce <0.10 kU/L normal Not Available [facility] [address] [place] [address], [address], 07/19/2022 15:40:50 07/18/20 22 07/19/2022 COMPR EHENS YUNIER INHAL ANT PANEL class 0 normal Not Available [facility] [address] [place] [address], [address], 07/19/2022 15:40:50 07/18/20 22 07/19/2022 COMPR EHENS YUNIER INHAL ANT PANEL fusarium moniliforme <0.10 kU/L normal Not Available [facility] [address] [place] [address], [address], 07/19/2022 15:40:50 07/18/20 22 07/19/2022 COMPR EHENS YUNIER INHAL ANT PANEL class 0 normal Not Available [facility] [address] [place] [address], [address], 07/19/2022 15:40:50 07/18/20 22 07/19/2022 COMPR EHENS YUNIER INHAL ANT PANEL rhizopus nigricans <0.10 kU/L normal Not Available [facility] [address] [place] [address], [address], 07/19/2022 15:40:50 07/18/20 22 07/19/2022 COMPR EHENS YUNIER INHAL ANT PANEL class 0 normal Not Available [facility] [address] [place] [address], [address], 07/19/2022 15:40:50 07/18/20 22 07/19/2022 COMPR EHENS YUNIER INHAL ANT PANEL stemph. botryosum <0.10 kU/L normal Not Available [facility] [address] [place] [address], [address], 07/19/2022 15:40:50 07/18/20 22 07/19/2022 COMPR EHENS YUNIER INHAL ANT PANEL class 0 normal TEST PERFO RMED AT: [facility] [place] [address] [facility] [phone] NGHIA Brown MD Not Available [facility] [address] [place] [address], [address], 07/19/2022 15:40:50 07/18/20 22 07/19/2022 COMPR EHENS YUNIER INHAL ANT PANEL rabbit epithelia <0.10 kU/L normal Not Available [facility] [address] [place] [address], [address], 07/19/2022 15:40:50 07/18/20 22 07/19/2022 COMPR EHENS YUNIER INHAL ANT PANEL class 0 normal Not Available [facility] [address] [place] [address], [address], 07/19/2022 15:40:50 07/18/20 22 07/19/2022 COMPR EHENS YUNIER INHAL ANT PANEL guinea pig epithelia <0.10 kU/L normal Not Available [facility] [address] [place] [address], [address], 07/19/2022 15:40:50 07/18/20 22 07/19/2022 COMPR EHENS YUNIER INHAL ANT PANEL class 0 normal Not Available [facility] [address] [place] [address], [address], 07/19/2022 15:40:50 07/18/20 22 07/19/2022 COMPR EHENS YUNIER INHAL ANT PANEL willow <0.10 kU/L normal Not Available [facility] [address] [place] [address], [address], 07/19/2022 15:40:50 07/18/20 22 07/19/2022 COMPR EHENS YUNIER INHAL ANT PANEL class 0 normal Not Available [facility] [address] [place] [address], [address], 07/19/2022 15:40:50 07/18/20 22 07/19/2022 COMPR EHENS YUNIER INHAL ANT PANEL IgE, total 664 kU/L <or=11 4 high Not Available [facility] [address] [place] [address], [address], 07/19/2022 15:46:06 07/18/20 22 07/19/2022 COMPR EHENS YUNIER INHAL ANT PANEL bermuda grass <0.10 kU/L normal Not Available [facility] [address] [place] [address], [address], 07/19/2022 15:46:06 07/18/20 22 07/19/2022 COMPR EHENS YUNIER INHAL ANT PANEL class 0 normal Not Available [facility] [address] [place] [address], [address], 07/19/2022 15:46:06 07/18/20 22 07/19/2022 COMPR EHENS YUNIER INHAL ANT PANEL ethan grass <0.10 kU/L normal Not Available [facility] [address] [place] [address], [address], 07/19/2022 15:46:06 07/18/20 22 07/19/2022 COMPR EHENS YUNIER INHAL ANT PANEL class 0 normal Not Available [facility] [address] [place] [address], [address], 07/19/2022 15:46:06 07/18/20 22 07/19/2022 COMPR EHENS YUNIER INHAL ANT PANEL dot grass (ky blue) <0.10 kU/L normal Not Available [facility] [address] [place] [address], [address], 07/19/2022 15:46:06 07/18/20 22 07/19/2022 COMPR EHENS YUNIER INHAL ANT PANEL class 0 normal Not Available [facility] [address] [place] [address], [address], 07/19/2022 15:46:06 07/18/20 22 07/19/2022 COMPR EHENS YUNIER INHAL ANT PANEL leonard grass <0.10 kU/L normal Not Available [facility] [address] [place], [address], 07/19/2022 15:46:06 07/18/20 22 07/19/2022 COMPR EHENS YUNIER INHAL ANT PANEL class 0 normal Not Available [facility] [address] [place] [address], [address], 07/19/2022 15:46:06 07/18/20 22 07/19/2022 COMPR EHENS YUNIER INHAL ANT PANEL common ragweed <0.10 kU/L normal Not Available [facility] [address] [place], [address], 07/19/2022 15:46:06 07/18/20 22 07/19/2022 COMPR EHENS YUNIER INHAL ANT PANEL class 0 normal Not Available [facility] [address] [place] [address], [address], 07/19/2022 15:46:06 07/18/20 22 07/19/2022 COMPR EHENS [...] PERFO RMED AT: [facility] [place] [address] [facility] [place] [address] NGHIA Brown MD Not Available [facility] [address] [place] [address], [address], 07/19/2022 15:46:06 07/18/20 22 07/19/2022 COMPR EHENS YUNIER INHAL ANT PANEL wormwood <0.10 kU/L normal Not Available [facility] [address] [place] [address], [address], 07/19/2022 15:46:06 07/18/20 22 07/19/2022 COMPR EHENS YUNIER INHAL ANT PANEL class 0 normal Not Available [facility] [address] [place] [address], [address], 07/19/2022 15:46:06 07/18/20 22 07/19/2022 COMPR EHENS YUNIER INHAL ANT PANEL polish plantain <0.10 kU/L normal Not Available [facility] [address] [place] [address], [address], 07/19/2022 15:46:06 07/18/20 22 07/19/2022 COMPR EHENS YUNIER INHAL ANT PANEL class 0 normal Not Available [facility] [address] [place] [address], [address], 07/19/2022 15:46:06 07/18/20 22 07/19/2022 COMPR EHENS YUNIER INHAL ANT PANEL lambs quarters <0.10 kU/L normal Not Available [facility] [address] [place] [address], [address], 07/19/2022 15:46:06 07/18/20 22 07/19/2022 COMPR EHENS YUNIER INHAL ANT PANEL class 0 normal Not Available [facility] [address] [place] [address], [address], 07/19/2022 15:46:06 07/18/20 22 07/19/2022 COMPR EHENS YUNIER INHAL ANT PANEL egyptian thistle <0.10 kU/L normal Not Available [facility] [address] [place] [address], [address], 07/19/2022 15:46:06 07/18/20 22 07/19/2022 COMPR EHENS YUNIER INHAL ANT PANEL class 0 normal Not Available [facility] [address] [place] [address], [address], 07/19/2022 15:46:06 07/18/20 22 07/19/2022 COMPR EHENS YUNIER INHAL ANT PANEL goldenrod <0.10 kU/L normal Not Available [facility] [address] [place] [address], [address], 07/19/2022 15:46:06 07/18/20 22 07/19/2022 COMPR EHENS YUNIER INHAL ANT PANEL class 0 normal Not Available [facility] [address] [place] [address], [address], 07/19/2022 15:46:06 07/18/20 22 07/19/2022 COMPR EHENS YUNIER INHAL ANT PANEL cocklebur <0.10 kU/L normal Not Available [facility] [address] [place] [address], [address], 07/19/2022 15:46:06 07/18/20 22 07/19/2022 COMPR EHENS YUNIER INHAL ANT PANEL class 0 normal Not Available [facility] [address] [place] [address], [id number], 07/19/2022 15:46:06 07/18/20 22 07/19/2022 COMPR EHENS YUNIER INHAL ANT PANEL rough pigweed <0.10 kU/L normal Not Available [facility] [address] [place] [address], [phone], 07/19/2022 15:46:06 07/18/20 22 07/19/2022 COMPR EHENS YUNIER INHAL ANT PANEL class 0 normal Not Available [facility] [address] [place] [address], [phone], 07/19/2022 15:46:06 07/18/20 22 07/19/2022 COMPR EHENS YUNIER INHAL ANT PANEL sheep daryl <0.10 kU/L normal Not Available [facility] [address] [place] [address], [address], 07/19/2022 15:46:06 07/18/20 22 07/19/2022 COMPR EHENS YUNIER INHAL ANT PANEL class 0 normal Not Available [facility] [address] [place] [address], [address], 07/19/2022 15:46:06 07/18/20 22 07/19/2022 COMPR EHENS YUNIER INHAL ANT PANEL nettle <0.10 kU/L normal Not Available [facility] [address] [place] [address], [address], 07/19/2022 15:46:06 07/18/20 22 07/19/2022 COMPR EHENS YUNIER INHAL ANT PANEL class 0 normal Not Available [facility] [address] [place] [address], [address], 07/19/2022 15:46:06 07/18/20 22 07/19/2022 COMPR EHENS YUNIER INHAL ANT PANEL maple (box elder) <0.10 kU/L normal Not Available [facility] [address] [place] [address], [address], 07/19/2022 15:46:06 07/18/20 22 07/19/2022 COMPR EHENS YUNIER INHAL ANT PANEL class 0 normal Not Available [facility] [address] [place] [address], [address], 07/19/2022 15:46:06 07/18/20 22 07/19/2022 COMPR EHENS YUNIER INHAL ANT PANEL birch <0.10 kU/L normal Not Available [facility] [address] [place] [address], [address], 07/19/2022 15:46:06 07/18/20 22 07/19/2022 COMPR EHENS YUNIER INHAL ANT PANEL class 0 normal Not Available [facility] [address] [place] [address], [address], 07/19/2022 15:46:06 07/18/20 22 07/19/2022 COMPR EHENS YUNIER INHAL ANT PANEL mountain cedar <0.10 kU/L normal Not Available [facility] [address] [place] [address], [address], 07/19/2022 15:46:06 07/18/20 22 07/19/2022 COMPR EHENS YUNIER INHAL ANT PANEL class 0 normal Not Available [facility] [address] [place] [address], [address], 07/19/2022 15:46:06 07/18/20 22 07/19/2022 COMPR EHENS YUNIER INHAL ANT PANEL oak <0.10 kU/L normal Not Available [facility] [address] [place] [address], [address], 07/19/2022 15:46:06 07/18/20 22 07/19/2022 COMPR EHENS YUNIER INHAL ANT PANEL class 0 normal Not Available [facility] [address] [place] [address], [address], 07/19/2022 15:46:06 07/18/20 22 07/19/2022 COMPR EHENS YUNIER INHAL ANT PANEL elm <0.10 kU/L normal Not Available [facility] [address] [place] [address], [address], 07/19/2022 15:46:06 07/18/20 22 07/19/2022 COMPR EHENS YUNIER INHAL ANT PANEL class 0 normal Not Available [facility] [address] [place] [address], [address], 07/19/2022 15:46:06 07/18/20 22 07/19/2022 COMPR EHENS YUNIER INHAL ANT PANEL sycamore <0.10 kU/L normal Not Available [facility] [address] [place] [address], [address], 07/19/2022 15:46:06 07/18/20 22 07/19/2022 COMPR EHENS YUNIER INHAL ANT PANEL class 0 normal TEST PERFO RMED AT: [facility] [place] [address] [facility], [place] [phone] NGHIA Brown MD Not Available [facility] [address] [place] [address], [address], 07/19/2022 15:46:06 07/18/20 22 07/19/2022 COMPR EHENS YUNIER INHAL ANT PANEL cottonwood tree <0.10 kU/L normal Not Available [facility] [address] [place] [address], [address], 07/19/2022 15:46:06 07/18/20 22 07/19/2022 COMPR EHENS YUNIER INHAL ANT PANEL class 0 normal Not Available [facility] [address] [place] [address], [address], 07/19/2022 15:46:06 07/18/20 22 07/19/2022 COMPR EHENS YUNIER INHAL ANT PANEL white debby <0.10 kU/L normal Not Available [facility] [address] [place] [address], [address], 07/19/2022 15:46:06 07/18/20 22 07/19/2022 COMPR EHENS YUNIER INHAL ANT PANEL class 0 normal Not Available [facility] [address] [place] [address], [address], 07/19/2022 15:46:06 07/18/20 22 07/19/2022 COMPR EHENS YUNIER INHAL ANT PANEL white pine <0.10 kU/L normal Not Available [place] [facility] [address] [place] [address], [address], 07/19/2022 15:46:06 07/18/20 22 07/19/2022 COMPR EHENS YUNIER INHAL ANT PANEL class 0 normal Not Available [facility] [address] [place] [address], [address], 07/19/2022 15:46:06 07/18/20 22 07/19/2022 COMPR EHENS YUNIER INHAL ANT PANEL CAT dander <0.10 kU/L normal Not Available [facility] [address] [place] [address], [address], 07/19/2022 15:46:06 07/18/20 22 07/19/2022 COMPR EHENS YUNIER INHAL ANT PANEL class 0 normal Not Available [facility] [address] [place] [address], [address], 07/19/2022 15:46:06 07/18/20 22 07/19/2022 COMPR EHENS YUNIER INHAL ANT PANEL horse dander <0.10 kU/L normal Not Available [facility] [address] [place] [address], [address], 07/19/2022 15:46:06 07/18/20 22 07/19/2022 COMPR EHENS YUNIER INHAL ANT PANEL class 0 normal Not Available [facility] [address] [place] [address], [address], 07/19/2022 15:46:06 07/18/20 22 07/19/2022 COMPR EHENS YUNIER INHAL ANT PANEL cow dander <0.10 kU/L normal Not Available [facility] [address] [place] [address], [address], 07/19/2022 15:46:06 07/18/20 22 07/19/2022 COMPR EHENS YUNIER INHAL ANT PANEL class 0 normal Not Available [facility] [address] [place] [address], [address], 07/19/2022 15:46:06 07/18/20 22 07/19/2022 COMPR EHENS YUNIER INHAL ANT PANEL dog dander 0.17 kU/L high Not Available [facility] [address] [place] [address], [address], 07/19/2022 15:46:06 07/18/20 22 07/19/2022 COMPR EHENS YUNIER INHAL ANT PANEL class 0/1 normal Not Available [facility] [address] [place] [address], [address], 07/19/2022 15:46:06 07/18/20 22 07/19/2022 COMPR EHENS YUNIER INHAL ANT PANEL goose feathers <0.10 kU/L normal Not Available [facility] [address] [place] [address], [address], 07/19/2022 15:46:06 07/18/20 22 07/19/2022 COMPR EHENS YUNIER INHAL ANT PANEL class 0 normal Not Available [facility] [address] [place] [address], [address], 07/19/2022 15:46:06 07/18/20 22 07/19/2022 COMPR EHENS YUNIER INHAL ANT PANEL penicillium notatum <0.10 kU/L normal Not Available [facility] [address] [place] [address], [address], 07/19/2022 15:46:06 07/18/20 22 07/19/2022 COMPR EHENS YUNIER INHAL ANT PANEL class 0 normal Not Available [facility] [address] [place] [address], [address], 07/19/2022 15:46:06 07/18/20 22 07/19/2022 COMPR EHENS YUNIER INHAL ANT PANEL cladosporium herbarum <0.10 kU/L normal Not Available [facility] [address] [place] [address], [address], 07/19/2022 15:46:06 07/18/20 22 07/19/2022 COMPR EHENS YUNIER INHAL ANT PANEL class 0 normal Not Available [facility] [address] [place] [address], [address], 07/19/2022 15:46:06 07/18/20 22 07/19/2022 COMPR EHENS YUNIER INHAL ANT PANEL aspergillus fumigatus <0.10 kU/L normal Not Available [facility] [address] [place] [address], [address], 07/19/2022 15:46:06 07/18/20 22 07/19/2022 COMPR EHENS YUNIER INHAL ANT PANEL class 0 normal Not Available [facility] [address] [place] [address], [address], 07/19/2022 15:46:06 07/18/20 22 07/19/2022 COMPR EHENS YUNIER INHAL ANT PANEL mucor racemosus <0.10 kU/L normal Not Available [facility] [address] [place] [address], [address], 07/19/2022 15:46:06 07/18/20 22 07/19/2022 COMPR EHENS YUNIER INHAL ANT PANEL class 0 normal Not Available [facility] [address] [place] [address], [address], 07/19/2022 15:46:06 07/18/20 22 07/19/2022 COMPR EHENS YUNIER INHAL ANT PANEL dorie albicans <0.10 kU/L normal Not Available [facility] [address] [place] [address], [address], 07/19/2022 15:46:06 07/18/20 22 07/19/2022 COMPR EHENS YUNIER INHAL ANT PANEL class 0 normal Not Available [facility] [address] [place] [address], [address], 07/19/2022 15:46:06 07/18/20 22 07/19/2022 COMPR EHENS YUNIER INHAL ANT PANEL alternaria alternata <0.10 kU/L normal Not Available [facility] [address] [place] [address], [address], 07/19/2022 15:46:06 07/18/20 22 07/19/2022 COMPR EHENS YUNIER INHAL ANT PANEL class 0 normal Not Available [facility] [address] [place] [address], [address], 07/19/2022 15:46:06 07/18/20 22 07/19/2022 COMPR EHENS YUNIER INHAL ANT PANEL D. farinae <0.10 kU/L normal Not Available [facility] [address] [place] [address], [address], 07/19/2022 15:46:06 07/18/20 22 07/19/2022 COMPR EHENS YUNIER INHAL ANT PANEL class 0 normal Not Available [facility] [address] [place] [address], [address], 07/19/2022 15:46:06 07/18/20 22 07/19/2022 COMPR EHENS YUNIER INHAL ANT PANEL D. pteronyssinu s <0.10 kU/L normal Not Available [facility] [address] [place] [address], [address], 07/19/2022 15:46:06 07/18/20 22 07/19/2022 COMPR EHENS YUNIER INHAL ANT PANEL class 0 normal Not Available [facility] [address] [place] [address], [address], 07/19/2022 15:46:06 07/18/20 22 07/19/2022 COMPR EHENS YUNIER INHAL ANT PANEL cockroach <0.10 kU/L normal Not Available [facility] [address] [place] [address], [address], 07/19/2022 15:46:06 07/18/20 22 07/19/2022 COMPR EHENS YUNIER INHAL ANT PANEL class 0 normal Not Available [facility] [address] [place] [address], [address], 07/19/2022 15:46:06 07/18/20 22 07/19/2022 COMPR EHENS YUNIER INHAL ANT PANEL epicoccum purpurasce <0.10 kU/L normal Not Available [facility] [address] [place] [address], [address], 07/19/2022 15:46:06 07/18/20 22 07/19/2022 COMPR EHENS YUNIER INHAL ANT PANEL class 0 normal Not Available [facility] [address] [place] [address], [address], 07/19/2022 15:46:06 07/18/20 22 07/19/2022 COMPR EHENS YUNIER INHAL ANT PANEL fusarium moniliforme <0.10 kU/L normal Not Available [facility] [address] [place] [address], [address], 07/19/2022 15:46:06 07/18/20 22 07/19/2022 COMPR EHENS YUNIER INHAL ANT PANEL class 0 normal Not Available [facility] [address] [place] [address], [address], 07/19/2022 15:46:06 07/18/20 22 07/19/2022 COMPR EHENS YUNIER INHAL ANT PANEL rhizopus nigricans <0.10 kU/L normal Not Available [facility] [address] [place] [address], [address], 07/19/2022 15:46:06 07/18/20 22 07/19/2022 COMPR EHENS YUNIER INHAL ANT PANEL class 0 normal Not Available [facility] [address] [place] [address], [address], 07/19/2022 15:46:06 07/18/20 22 07/19/2022 COMPR EHENS YUNIER INHAL ANT PANEL stemph. botryosum <0.10 kU/L normal Not Available [facility] [address] [place] [address], [address], 07/19/2022 15:46:06 07/18/20 22 07/19/2022 COMPR EHENS YUNIER INHAL ANT PANEL class 0 normal TEST PERFO RMED AT: [facility] [place] [address] [facility], [place] [phone] NGHIA Brown MD Not Available [facility] [address] [place] [address], [address], 07/19/2022 15:46:06 07/18/20 22 07/19/2022 COMPR EHENS YUNIER INHAL ANT PANEL rabbit epithelia <0.10 kU/L normal Not Available [facility] [address] [place] [address], [address], 07/19/2022 15:46:06 07/18/20 22 07/19/2022 COMPR EHENS YUNIER INHAL ANT PANEL class 0 normal Not Available [facility] [address] [place] [address], [address], 07/19/2022 15:46:06 07/18/20 22 07/19/2022 COMPR EHENS YUNIER INHAL ANT PANEL guinea pig epithelia <0.10 kU/L normal Not Available [facility] [address] [place] [address], [address], 07/19/2022 15:46:06 07/18/20 22 07/19/2022 COMPR EHENS YUNIER INHAL ANT PANEL class 0 normal Not Available [facility] [address] [place], [address], 07/19/2022 15:46:06 07/18/20 22 07/19/2022 COMPR EHENS YUNIER INHAL ANT PANEL willow <0.10 kU/L normal Not Available [facility] [address] [place] [address], [address], 07/19/2022 15:46:06 07/18/20 22 07/19/2022 COMPR EHENS YUNIER INHAL ANT PANEL class 0 normal Not Available [facility] [address] [place], [address], 07/19/2022 15:46:06 08/07/20 19 08/07/2019 LDCT, chest , for lung jose roberto r jennifer charles [facility] [address] [place] [address] Patibre t Name: MANDA SANTACRUZ Stephanie Toi t : 952 Patien t Orderi ng [...] icant abnorm ality was identi fied. FOR PRACTICE CONSULTANT AL STATIS TICAL PURPOS E ONLY: Exam [...] Jo Karimi MD on 019 3:57 PM [facility] [address] [facility], [place], [address], 08/11/2019 09:00:15 12/11/19 20 12/10/2019 CT, chest , w/o contr ast No observ ation record ed. [email or web address] [facility] [address], [place], [address], 12/12/2019 08:03:39 01/09/2012/10/2019 CT, angio gram, chest , w/ contr ast No observ ation record ed. BARCODE Not Available 2019 15:09:25 03/01/20 20 02/05/2020 XR, chest No observ ation record ed. [email or web address] [facility] [place] [address], [place], [address], 03/01/2020 11:39:02 03/01/20 20 02/16/2020 NM, thyro id scan No observ ation record ed. [email or web address] [facility] [address], [place], [address], 03/01/2020 11:38:53 03/01/20 20 02/17/2020 XR, chest No observ ation record ed. [email or web address] [facility] [address], [place], [address], 03/01/2020 10:40:17 04/21/20 22 04/20/2022 CT, chest , w/o contr ast [facility] [address] [facility] [place] [address] Patien t Name: MANDA prasad : 952 Patibre t Orderi [facility] er: CARMEL SHARMA EXAM DATE: 2021 EXAM: CT MED/TH OR [...] Karimi MD on 022 12:16 PM aerwin [facility] [address] [place] [address], [address], 06/07/2022 11:27:33 06/23/20 22 06/23/2022 RF, valarieoph scott, w/ contr ast PO [facility] [facility] [address] [place] [address] [place] [address] Patien t Name: MANDA Brown Patibre t : 952 Patien t Orderi ng Provid er: CARMEL ZACHARY EXAM DATE: 2021 EXAM: RF ESOPHA MARITZA [...] Ferrell MD on 022 11:45 AM aerwin [facility] [address] [place], [address], 01/04/2023 18:20:17 Result Notes Documentation Provider Name and Address Organization Details Recorded Time Ldct, Chest, For Lung Cancer Screening : [address] [address] Patient Name: SUSANNAH ANDRES Patient : 1950 Patient Ordering Provider: CARMEL SHARMA EXAM DATE: 08/07/2019 EXAM: CT CHEST LUNG NODULE SCREENING CLINICAL INFORMATION: Lung cancer screening. History of smoking for 55 pack years. Quit 2 years ago. TECHNIQUE: Multiple axial CT images of the chest were obtained without injection of IV contrast using the low-dose lung cancer screening protocol. COMPARISON: CT 07/23/2018 NODULE SEARCH: No non-calcified lung nodule was identified in either lung. OTHER FINDINGS: AIRWAYS AND LUNGS: Trachea, principal bronchi and major bronchial branches are patent and normal. Lungs are clear. MEDIASTINUM: Limited evaluation due to absence of IV contrast. Calcified lymph nodes are seen in the mediastinum and al. Aorta shows atherosclerotic calcifications with normal caliber. SVC, pulmonary arteries, pulmonary veins and their major branches and tributaries are normal. Coronary artery calcifications are noted. PLEURA AND CHEST WALL: No pleural effusion or mass. No chest wall abnormality. UPPER ABDOMINAL ORGANS: Liver, gallbladder, spleen, pancreas, adrenals and upper visualized portions of both kidneys are normal within the limits on interpretation imposed by the absence of IV contrast. IMPRESSION: 1. No suspicious lung nodules were identified during this screening CT chest. Continued screening with low-dose CT chest without contrast is recommended in one year's time. 2. Allowing for the limitations imposed by the scanning technique, no other significant abnormality was identified. FOR INTERNAL STATISTICAL PURPOSE ONLY: Exam Type: Screening. Change: No Change. Lung-RADS Category: Lung-RADS category 1 Lung-RADS Modifier: None Recall Interval: Continue screening in 1 Year. Recommended Exam at Recall: CT Chest Lung Nodule Screening Interpreted By: Dante Karimi MD EL SHARMA PA-C [address] [place] [address], [address], [facility] 08/11/2019 09:00:15 Ct, Chest, W/o Contrast : [place] [address] Patient Name: SUSANNAH ANDRES Patient : 1950 Patient Ordering Provider: CARMEL SHARMA EXAM DATE: 04/20/2022 EXAM: CT MED/THOR HIGH RESOLUTION CLINICAL INFORMATION: Chronic cough. Shortness breath. TECHNIQUE: Multiple axial CT images of the chest were obtained in supine position without injection of IV contrast. High resolution protocol was used. COMPARISON: None. FINDINGS: AIRWAYS AND LUNGS: Trachea, principal bronchi and major bronchial branches are patent and normal. Mild traction bronchiectasis is seen in both lung bases. Minimal interstitial septal thickening is seen. There is no honeycombing. No lung nodule or mass is seen. MEDIASTINUM: Limited evaluation due to absence of IV contrast. No mediastinal lymphadenopathy. Aorta shows atherosclerotic calcifications with normal caliber. SVC, pulmonary arteries, pulmonary veins and their major branches and tributaries are normal. Evidence of previous CABG is noted. PLEURA AND CHEST WALL: No pleural effusion or mass. Degenerative changes of the thoracic spine are present. UPPER ABDOMINAL ORGANS: Liver, gallbladder, spleen, pancreas, adrenals and upper visualized portions of both kidneys are normal within the limits on interpretation imposed by the absence of IV contrast. IMPRESSION: Minimal changes of bilateral interstitial lung disease. No specific pattern has been identified. Interpreted By: Dante Karimi MD EL SHARMA PA-C [address] [place] [address], [address], [facility] 06/07/2022 11:27:33 Rf, Esophagus, W/ Contrast Po : [place] [address] Patient Name: SUSANNAH ANDRES Patient : 1950 Patient Ordering Provider: CARMEL SHARMA EXAM DATE: 06/23/2022 EXAM: RF ESOPHAGUS CLINICAL INFORMATION: Dysphagia TECHNIQUE: Multiple double contrast images of various parts of the esophagus, were obtained using high-density barium suspension. This was followed by AP and lateral rapid sequence (3/sec) images of the pharynx and upper esophagus during swallowing. The study was completed by multiple prone images of the esophagus during swallowing and assessment for reflux. FINDINGS: CERVICAL ESOPHAGUS: Rapid sequence views of the upper esophagus show normal pharyngeal anatomy. No aspiration is seen. THORACO ABDOMINAL ESOPHAGUS: Esophageal outline is intact. There is a small hiatal hernia with nonobstructive Schatzki's ring present. There is moderate JARRELL ESOPHAGEAL MOTILITY: Esophageal motility is normal with a normal peristaltic stripping wave and secondary peristaltic waves. No tertiary waves are noted. ASSESSMENT FOR REFLUX: Moderate. IMPRESSION: Small hiatal hernia with moderate gastroesophageal reflux. Interpreted By: Mika Ferrell MD EL SHARMA PA-C [address] [place] [address], [address], [facility] 01/04/2023 18:20:17 Problems Name Problem SNOMED Code Status Onset Date Resolution Date Notes Provider Name and Address Organization Details Recorded Time Chronic obstructiv e pulmonary disease 46820827 Active 2016 CASTILLO SMALLWOOD MD [address] [place], [address] , [facility] 7 14:17:18 Gastroesop hageal reflux disease without esophagiti s 591743900 Active 2021 YAA WAYNE MD [address] [place], [address] , [facility] 2 15:23:11 Asthma-chr onic obstructiv e pulmonary disease overlap syndrome 6193307244790 9107 Active 2021 YAA WAYNE MD [address] [place], [address] , [facility] 2 15:23:14 Problem Notes None recorded. Procedures Surgical History Date Name Laterality Status Provider Name and Address Organization Details Recorded Time 07/18/20 22 Allergy Skin Test - Enviromental completed YAA WAYNE MD [address] [place], [address], [facility] 07/18/2022 19:38:28 06/21/20 22 Demonstration Aerosol/Generator/ Nebulizer/Opticham kennedi completed Karlaelvin Jackson [facility] 06/21/2022 10:39:12 06/21/20 22 Spirometry with Bronchodilator completed Karla Jackson [facility] 06/21/2022 10:21:28 02/25/20 20 placement of stent completed Tania Soto [facility] 04/20/2022 13:09:59 12/11/19 20 Spirometry completed CARMEL SHARMA PA-C [address] [place], [address], [facility] 12/11/2019 17:06:06 07/23/20 18 Diffusion Capacity completed CARMEL SHARMA PA-C [address] [place], [address] [place] [address] 07/23/2018 14:45:26 07/23/20 18 Lung Volumes, Plethysmography completed CARMEL SHARMA PA-C [address] [place], [address], [facility] 07/23/2018 14:45:35 07/23/20 18 Spirometry completed CARMEL SHARMA PA-C [address] [place], [address], [facility] 07/23/2018 14:45:48 06/12/20 18 Nebulizer Treatment completed Naya Garcia [facility] 06/12/2018 13:08:19 04/23/20 18 Nebulizer Treatment completed Yvrose Samano [facility] 04/23/2018 10:17:05 09/11/20 17 Nebulizer Treatment completed CASTILLO SMALLWOOD MD [address] [place], [address], [facility] 09/11/2017 14:28:29 08/27/20 17 Nebulizer Treatment completed Yvrose Samano [facility] 08/27/2017 11:10:15 CABG completed Yvrose Samano [facility] 08/27/2017 10:39:41 Total Hysterectomy completed Ginny Samano [facility] 08/27/2017 10:39:46 Knee Surgery completed Yvrose Samano [facility] 08/27/2017 10:39:51 Imaging Results None recorded. Procedure Notes None recorded. Medical Equipment None Reported. Allergies Allergen ID Allergen Name Allergen Category Reaction Reaction Severity Criticality Documentation Date Start Date Code Code System Note Provider Name and Address Organization Details Recorded Time 143092 Benadryl medicatio n itching Not available Not available 10/20/20162008 7 RxNorm Yvrose Samano [facility] 7 10:50:26 759843 Product containin g penicilli n (product) medicatio n rash Not available Not available 10/20/20162008 77333 8001 SNOMED Yvrose Samano [facility] 7 10:50:53 192040 codeine medicatio n vomiting Not available Not available 10/20/20162008 2670 RxNorm Yvrose Samano [facility] 7 10:50:46 911623 Valium medicatio n other Not available Not available 10/20/20162008 2 RxNorm MOOD IRAHETA ES Yvrosekimmie Samano [facility] 7 10:50:44 Medications Name Sig Start Date [...] tion route for 30 days. 2021 active [facility][id number] Not Available Not Available Not Available [...] subcutan eous route. active PA approved Auth#[id number] approved : 08/24/22- further notice Not Available Not Available Not Available [employer]ztri Aerospher e 160 mcg-9mcg- 4.8mcg/ac tuation HFA aerosol inhaler Inhale 2 puffs twice a day by inhalati on route. active Not Available Not Available No t Available Vitals Date Recorded Body height Body mass index (BMI) Body weight Heart rate Oxygen saturation Respiratory rate Systolic And Diastolic Provider Name and Address Organization Details Last Updated DateTime 0 162.56 cm 31.1 kg/m2 56297.2 2 g 70 /min 94 % 16 /min 122/80 mm[Hg] Elizabeth Aldana [facility] 0 14:55:13 Date Recorded Body weight Oxygen saturation Heart rate Systolic And Diastolic Provider Name and Address Organization Details Last Updated DateTime 04/20/2022 77361.77 g 96 % 73 /min 131/80 mm[Hg] Tania Soto [facility] 04/20/2022 13:11:48 Date Recorded Body weight Heart rate Oxygen saturation Systolic And Diastolic Provider Name and Address Organization Details Last Updated DateTime 06/21/2022 22345.18 g 68 /min 97 % 124/72 mm[Hg] Le Pardo [facility] 06/21/2022 10:03:18 Date Recorded Body height Body mass index (BMI) Body weight Systolic And Diastolic Provider Name and Address Organization Details Last Updated DateTime 07/18/2022 162.56 cm 31.8 kg/m2 17532.59 g 128/80 mm[Hg] Sabi Ambrocio [facility] 07/18/2022 15:02:40 Date Recorded Body height Body mass index (BMI) Body weight Respiratory rate Heart rate Oxygen saturation Systolic And Diastolic Provider Name and Address Organization Details Last Updated DateTime 9 162.56 cm 31.8 kg/m2 53773.5 9 g 16 /min 60 /min 94 % 122/82 mm[Hg] Gricelda Bales [facility] 9 15:06:52 Social History Question Answer Notes LastModified by Organizat ion Details LastModified Time Tobacco Smoking Status [facility] 10:53:20 Exposure To Fumes No Information [...] Much Tobacco Do You Smoke? 2 PPD [email or web address] Information not available 07/23/2018 How Many Years Have You Smoked Tobacco? 50 [email or web address] Information not available 07/23/2018 Have You Recently [...] is your level of alcohol consumption? Occasional [email or web address] Information not available 07/23/2018 Have you been exposed to chemicals or toxins? No Information not available 06/21/2022 What is your occupation? RETIRED [email or web address] Information not available 07/23/2018 What is your exercise level? Occasional Information not available 06/21/2022 Mental Status None recorded. Family History Relationship Description Onset Age of this Age Resolved Age Notes LastModified by Organization Details LastModified Time Unspecified Relation [facility] history of malignant neoplasm [facility] Not available 2016 10:39:01 Unspecified Relation Diabetes mellitus [facility] Not available 2016 10:39:08 Unspecified Relation [facility] Not available 2016 10:39:13 Unspecified Relation Cerebrovascu lar accident [facility] Not available 12/2016 10:39:23 Unspecified Relation Hypertensive disorder [facility] Not available 2016 10:39:28 Medical History Condition Response Atrial Fibrillation Y COPD Y Anxiety Disorder Y Arthritis Y Asthma Y High Cholesterol Y GERD/Reflux Y Hypertension Y Gynecological HistoryNo gynecological history recorded. Obstetrics History GPAL:G 0 P 0 0 0 0 Immunizations Vaccine Type Date Status Note Provider Nam e and Address Organization Details Recorded Time Influenza, high-dose, trivalent, PF 12/11/2019 completed Not Available [facility] 2019 02:48:26 Influenza, high-dose, trivalent, PF 08/22/2018 completed Not Available [facility] 2019 02:54:10 Past Encounters Encounter ID Performer Location Encounter Start Date Encounter Closed Date Diagnosis/Indication Diagnosis SNOMED-CT Code Diagnosis ICD10 Code Diagnosis IMO Codes Diagnosis Note [id number] FARHAD MCFARLAND PA-C [facility] [address] [place] [phone] 08/27/2017 10:02:16 08/27/2017 11:32:44 Overweight 824136074 E66.3 Acute exac erbation of chronic obstructive pulmonary disease 212041811 J44.1 [id number] CASTILLO SMALLWOOD MD [facility] [address] [place] [address] 09/11/2017 12:58:55 09/11/2017 15:35:31 Cough 64745764 R05 Acute sinusitis 17692603 J01.90 Acute bronchitis 7112318 2 J20.9 Chronic ob structive pulmonary disease 29708700 J44.9 [id number] FARHAD MCFARLAND PA-C [facility] [address] [place] [phone] 7 04/23/2018 08:55:52 04/23/2018 10:46:37 Acute exacerbation of chronic obstructive pulmonary disease 431984094 J44.1 [id number] FARHAD MCFARLAND PA-C [facility] [address] [place] [phone] 7 06/12/2018 12:04:54 06/12/2018 13:37:59 Acute exacerbation of chronic obstructive pulmonary disease 318511859 J44.1 Contusion of rib 0329698 06 S20.20XA [id number] CARMEL SHARMA PA-C P[facility] [address] [place] [phone] 07/23/2018 08:26:14 07/23/2018 16:37:30 Chronic bronchitis 18957265 J42 Symptoms consistent with chronic bronchitis . [...] Requested immunizati on records. History of smoking 77353 12766 5840129 Z87.891 Patient is a candidate for CT chest Lung Cancer Screening due to smoking history. Patient is currently asymptomat ic with no signs or symptoms of lung cancer. Patient did participat e in shared decision making. We discussed the risks vs. benefits of CT Chest Lung Cancer Screening in detail. [id number] CARMEL SHARMA PA-C PUL[facility] [address] [place] [address], [address] [place] [phone] 08/22/2018 10:21:11 08/22/2018 16:25:55 Chronic bronchitis 32261667 J42 symptoms are currently improved. I did [...] again next year. Active or passive immunization 432281627 Z23 [id number] CARMEL SHARMA PA-C P[facility] [address] [facility], [address] [place] [address] 01/30/2019 12:55:45 01/30/2019 14:35:38 History of smoking 5293097397 3381435 Z87.891 Patient is a candidate for CT chest Lung Cancer Screening due to smoking history. Patient is currently asymptomat ic with no signs or symptoms of lung cancer. Patient did participat e in shared decision making. We discussed the risks vs. benefits of CT Chest Lung Cancer Screening in detail. Chronic bronchitis 52595 004 J42 respirator y symptoms have been well controlled on Trelegy Ellipta. She will continue this one inhalation daily. Use albuterol as needed. Currently no signs of acute infection. [id number] CARMEL SHARMA PA-C P[facility] [address] [facility], [address] [place] [address] 08/07/2019 14:58:30 08/08/2019 08:10:40 Chronic bronchitis 35622381 J42 respirator y symptoms have been well controlled on Trelegy Ellipta. She will continue this one inhalation daily. Use albuterol as needed. Currently no signs of acute infection. Chronic ob structive pulmonary disease 22695673 J44.9 I prescribed her duo nebs to use in her nebulizer as needed. These were previously denied by insurance. I resent these again. Acute lowe r respiratory tract infection 969395429 J22 patient will go ahead and start Omnicef for respirator y tract infection. She will start prednisone if no improvemen t. patient will receive influenza vaccine at home after her acute infection has resolved. She will call if there is any worsening of symptoms. Former hea vy tobacco smoker [id number] [address] chest lung cancer screening will be repeated in 1 year. [id number] CARMEL SHARMA PA-C PUL[facility] [address] [facility], [address] [place] [phone] 12/11/2019 14:17:23 12/12/2019 09:30:56 Chronic obstructive pulmonary disease 68900098 J44.9 I did not make any changes in her regular medication regimen. Administra tion of influenza vaccine 61062973 Z23 Pneumonia 111710572 J18. 9 I prescribed her Levaquin for 10 days and 2 weeks of prednisone . Spirometry also shows worsening. we will review images when scanned into our radiology system. I do question that she may be aspirating with bilateral lower lobe pneumonia. she denies dysphagia but does have a small hiatal hernia. [id number] CARMEL SHARMA PA-C PULMONARY [address] [facility], [address] [place] [address] 04/20/2022 10:32:27 04/20/2022 14:40:53 Persistent cough 120083864 R05.3 due to her worsening cough, I ordered an HRCT of chest for further evaluation . She is having difficulty coughing up mucus. she does not have consistent mucus production therefore I did not order sputum cultures. she has had frequent exacerbati ons recently. Chronic ob structive pulmonary disease 48632270 J44.9 recommend to increase Breztri to 2 inhalation s twice daily. continue Combivent and albuterol nebs as needed. Former hea vy tobacco smoker [id number] 45861 Z87.891 patient quit smoking in 2016. [id number] CARMEL SHARMA PA-C PULMONARY [address] [facility], [address] [place] [phone] 06/21/2022 09:39:28 06/22/2022 07:06:25 Chronic obstructive pulmonary disease 78660961 J44.9 continue Breztri 2 inhalation s twice daily. continue Combivent and albuterol nebs as needed. will check IgE and CBC with diff, appears to be asthmatic component to this. She may benefit from a biologic. Former hea vy tobacco smoker [id number] 46931 Z87.891 patient quit smoking in 2016. Bronchiectasis 53714326 J47.9 continue flutter valve, nebs. Will consider vest. Persistent cough 7232649 02 R05.3 Start Prednisone x 2 weeks. I ordered a barium swallow. I suspect she may be aspirating . [id number] YAA WAYNE MD [facility] [address] [facility] ,[address] [place] [address] 07/18/2022 14:23:29 07/20/2022 11:26:43 Asthma-chronic obstructive pulmonary disease overlap syndrome 0725424302 0810513 J44.9 Gastroesop hageal reflux disease without esophagitis 418040304 K21.9 Obesity 180118857 E66.9 Health Concerns Section Related Observation LastModified by Organization Detai ls LastModified Time None Recorded Concern Status LastModified by Organization Details LastModified Time None Recorded Advance Directives Directive None Recorded Payers Insurance Date Sequence Insurance Name Policy Number Policy Kuo Covered Member ID Kuo Member ID Guarantor Name 01/30/2018 2 UNSPECIFIED REMIT PAYOR Susannah Andres 11/13/2022 2 [facility] Susannah Andres [id number] Susannah Andres 10/29/2017 2 UNSPECIFIED REMIT PAYOR Susannah Andres 11/13/2022 2 [facility] [facility] (MEDICAID REPLACEMENT - HMO) [id number] Susannah Andres [id number] Susannah Andres 11/13/2022 1 [employer] (MEDICARE REPLACEMENT/AD VANTAGE - PPO) Susannah Andres [id number] Susannah Andres 11/13/2022 2 [place] [employer] [place] FFS/TRADITIONA L Susannah Andres [id number] Susannah Andres 11/13/2022 1 [employer] (MEDICARE) Susannah Andres [id number] Susannah Andres Notes Date Note Type Note Provider Name and Address Organization Details Recorded Time 08/07/2019 text/html Patient Has Chronic Bronchitis. She Is Currently Treated with Trelegy Ellipta. over the last 2 days, she has had increased cough, nasal congestion, wheezing, and dyspnea. Sputum is mainly white at this time. No fever or chills. Patient is a 45-roxu-doma smoking history. On average, she smoked one pack of cigarettes a day. She quit smoking approximately [address] chest lung cancer screening shows no suspicious nodules today. CARMEL ZACHARY, PA-C [address] [place], [address], [facility] 08/07/2019 16:09:15 12/11/2019 text/html Patient Has chronic bronchitis. She Is Currently Treated with Trelegy [...] he is vaping. CARMEL SHARMA PA-C [address] [place], [address], [facility] 12/11/2019 17:06:59 04/20/2022 text/html Patient Has chronic bronchitis. She Is currently Breztri. she has [...] cigarettes since 2017. CARMEL SHARMA PA-C [address] [place], [address], [facility] 04/20/2022 14:21:55 06/21/2022 text/html Patient has chronic cough. HRCT chest in March showed mild [...] strong odors or perfumes. CARMEL SHARMA PA-C [address] [place], [address], [facility] 06/21/2022 16:33:08 07/18/2022 text/html ROS as noted in the HPI Ms Andres is a 71yoF with COPD [...] with moderate gastroesophageal reflux. YAA WAYNE MD [facility] [place], [address], [facility] 07/19/2022 16:04:41 OBGyn Episode No OBEpisode recorded.
--- OUTSIDE RECORDS SUMMARY | 2025-11-18 15:41 | XMS_ITS | Encounter Summary ---
[facility] Organization [facility] Address [address] [place] [address] Care Team Providers Care Technical Support Engineer Name Role Phone Michael Baez MD Primary Care Provider [phone] Encounter Details Date Type Department Care Team (Late st Contact Info) Description 12/16/2013 Conversion Encounter [facility] HISTORICAL CONV [address] [place] [address] Interface, See Report Social History [...] See Report - 12/16/2013 8:29 AM EST [place] [address] DISCHARGE SUMMARY PATIENT NAME: SUSANNAH ANDRES [address] [facility] NO: [id number] DATE OF : 1950 DATE OF ADMISSION: [...] Aliya Miller M.D.* MBS/rxll Voice Rec. ID #[id number] Voice Original ID #[id number] Doc ID #[id number] Rev. #0 cc: Aliya Miller M.D.* Dr. Juan David Lopez M.D.* DO NOT TEXT EDIT THIS LINE :CDS:[id number]: Authenticated and Edited by ALIYA MILLER MD On 12/23/13 12:06:53 PM documented in this encounter H&P Notes * Interface, See Report - 12/16/2013 8:29 AM EST [address] HISTORY AND PHYSICAL PATIENT NAME: SUSANNAH ANDRES 2 [facility] NO: [id number] DATE OF : 1950 DATE OF ADMISSION: 12/16/2013 ADMITTING PHYSICIAN: Aliya Miller M.D. PRIMARY CARE PHYSICIAN: Dr. Garcia formerly Dr. Lynn ICT DEVELOPER: Robel Chicas M.D. REFERRING PHYSICIAN: Ingrid [...] Negative stress test, 06/2013. 3. History of [place]. 4. Obesity with BMI over 32. 5. [...] Aliya Miller M.D.* HARSHAD/danyell Voice Rec. ID #[id number] Voice Original ID #[id number] Doc ID #[id number] Rev. #0 cc: Aliya Miller M.D.* Ingrid Lopez M.D.* DO NOT TEXT EDIT THIS LINE :[facility]:[id number]: Authenticated by ALIYA MILLER MD On 01/06/2014 07:44:48 AM documented in this encounter OR Notes * Op Note - Interface, See Report - 12/16/2013 8:29 AM EST [place] [address] OPERATIVE REPORT PATIENT NAME: SUSANNAH ANDRES1 2 [facility] NO: [id number] DATE OF : 1950 DATE OF OPERATION: 12/16/2013 SURGEON: Ingrid Lopez M.D. FILM PROCESSING SUPERVISOR: Nikole Tovar PA-C PREOPERATIVE DIAGNOSIS: Advanced right [...] closed with #1 Vicryl in an interrupted sptyhy-ul-fabwz fashion, followed by closure of the deep [...] long as there is no contraindication. Ingrid oLpez M.D.* MK/rxmjh Voice Rec. ID #[id number] Original Voice Rec. ID #[id number] Doc ID #[id number] Revision Count: 0 cc: Ingrid Lopez M.D.* Shahid Fall M.D.* Nikole Tovar PA-C <start header> [place] [address] OPERATIVE REPORT PATIENT NAME: SUSANNAH ANDRES1 2 [facility] NO: [id number] DATE OF : 1950 <end header> DO NOT TEXT EDIT THIS LINE :[employer]:[id number]: Authenticated by INGRID LOPEZ M.D. On 12/18/2013 [...] EST) Magnesium 2.0 1.7 - 2.4 mg/dL [facility] Blood specimen (specimen) 12/18/2013 4:49 AM EST Narrative [facility] - 12/18/2013 5:31 AM EST Specimen Type: Blood Aliya Miller MD LAB BLOOD ORDERABLES Fi nal Result [facility] [address] [id number], * (ABNORMAL) CBC (No diff) (12/18/2013 4:49 AM EST) WBC 8.79 3.50 - 10.80 K/[facility] RBC 3.88(L) 3.89 - 5.14 M/[facility] Hemoglobin 11.9 11.5 - 15.5 g/dL [facility] Hematocrit 34.9 34.5 - 44.0 % [facility] MCV 89.9 80.0 - 99.0 fL [facility] MCH 30.7 27.0 - 31.0 pg [facility] MCHC 34.1 32.0 - 36.0 g/dL [facility] RDW-CV 13.1 11.3 - 14.5 % [facility] Platelets 271 150 - 450 K/[facility] Blood specimen (specimen) 12/18/2013 4:49 AM EST [facility] - 12/18/2013 5:15 AM EST Specimen Type: Blood Ingrid Lopez MD LAB BLOOD ORDERABLES Final Res ult Performing Organization Address [facility] [place] [address], * (ABNORMAL) Magnesium (12/17/2013 4:55 AM EST) Pathologist [facility] Magnesium 1.4(L) 1.7 - 2.4 mg/dL [facility] Blood specimen (specimen) 12/17/2013 4:55 AM EST [facility] - 12/17/2013 5:52 AM EST Specimen Type: Blood Aliya Miller MD LAB BLOOD ORDERABLES Fi nal Result Performing Organization Address [facility] [place] [address], * Troponin (12/17/2013 4:55 AM EST) Pathologist [facility] Troponin I 0.04 0.00 - 0.60 ng/mL [facility] Blood specimen (specimen) 12/17/2013 4:55 AM EST [facility] - 12/17/2013 5:52 AM EST Specimen Type: Blood Aliya Miller MD LAB BLOOD ORDERABLES Fi nal Result Performing Organization Address [facility] [place] [address], * Vitamin D 25 hydroxy (12/17/2013 4:55 AM EST) Pathologist [facility] 25 Hydroxy, Vitamin D 52.1 ng/mL [facility] Comment: DF by IF @ 12/17/2013 05:57 Reference Ranges for Total Vitamin D 25(OH) Deficiency <20.0 ng/ml Insufficiency 20-30 ng/ml Sufficiency 30-100 ng/ml Toxicity >100 ng/ml Blood specimen (specimen) 12/17/2013 4:55 AM EST [facility] - 12/17/2013 5:57 AM EST Specimen Type: Blood Aliya Miller MD LAB BLOOD ORDERABLES Fi nal Result Performing Organization Address City/[facility]/[place] [address], * (ABNORMAL) Basic metabolic panel (12/17/2013 4:55 AM EST) Pathologist [facility] Glucose 119(H) 70 - 100 mg/dL [facility] BUN 9 6 - 20 mg/dL [facility] Creatinine 0.9 0.6 - 1.3 mg/dL [facility] Sodium 134(L) 136 - 145 mmol/L [facility] Potassium 3.7 3.4 - 5.4 mmol/L [facility] Chloride 100 98 - 107 mmol/L [facility] CO2 28 20 - 31 mmol/L [facility] Calcium 8.8 8.7 - 10.4 mg/dL [facility] eGFR 67 ml/min/1.7 32 [facility] Comment: DF by IF @ 12/17/2013 05:52 National Kidney Foundation Guidelines Stage Description GFR 1 Normal or High 90+ 2 Mild decrease 60-89 3 Moderate decrease 30-59 4 Severe decrease 15-29 5 Kidney failure <15 Anion Gap 7 3 - 11 mmol/L [facility] Blood specimen (specimen) 12/17/2013 4:55 AM EST Narrative [facility] - 12/17/2013 5:52 AM EST Specimen Type: Blood Aliya Miller MD LAB BLOOD ORDERABLES [facility] Result Performing Organization Address City/State/[facility] [place] [address], * CBC (No diff) (12/17/2013 4:55 AM EST) WBC 9.42 3.50 - 10.80 K/[facility] RBC 4.00 3.89 - 5.14 M/[facility] Hemoglobin 12.3 11.5 - 15.5 g/dL [facility] Hematocrit 36.2 34.5 - 44.0 % [facility] MCV 90.5 80.0 - 99.0 fL [facility] MCH 30.8 27.0 - 31.0 pg [facility] MCHC 34.0 32.0 - 36.0 g/dL [facility] RDW-CV 13.2 11.3 - 14.5 % [facility] Platelets 287 150 - 450 K/[facility] Blood specimen (specimen) 12/17/2013 4:55 AM EST Narrative [facility] - 12/17/2013 5:30 AM EST Specimen Type: Blood Ingrid Lopez MD LAB BLOOD ORDERABLES Final Res ult [facility] [address] [place] [address], * XR KNEE 1 OR 2 VW [...] EST) Glucose 118 75 - 125 mg/dL [facility] Blood specimen (specimen) 12/16/2013 12:51 PM EST [facility] - 12/16/2013 12:54 PM EST Specimen Type: Blood Historical Provider POINT OF CARE TEST ORDERA BLES Final Result Performing Organization Address [facility] [place] [address], * (ABNORMAL) OR Potassium (12/16/2013 8:58 AM EST) Potassium 3.46(L) 3.5 - 5.3 mmol/L [facility] Venous blood specimen (specimen) 12/16/2013 8:58 AM EST [facility] - 12/16/2013 9:23 AM EST Specimen Type: Venous Ingrid Lopez MD LAB BLOOD ORDERABLES Final Res ult Performing Organization Address [facility] [place] [address], * Protime-INR (12/16/2013 8:58 AM EST) Protime 10.9 9.6 - 11.5 Seconds [facility] INR 1.02 [facility] Comment: US by IF @ 12/16/2013 09:46 Therapeutic Ranges for INR: 2.0-3.0 (PT 20-30) 2.5-3.5 (PT 25-34) Blood specimen (specimen) 12/16/2013 8:58 AM EST Narrative [facility] - 12/16/2013 9:46 AM EST Specimen Type: Blood Ingrid Lopez MD LAB BLOOD ORDERABLES Final Res ult Performing Organization Address [facility] [place] [address], * Type and screen (12/16/2013 8:58 AM EST) ABORh A Rh Negative [facility] Antibody Screen Negative [facility] Blood specimen (specimen) 12/16/2013 8:58 AM EST Narrative [facility] - 12/16/2013 10:08 AM EST Specimen Type: Blood Ingrid Lopez MD BLOOD BANK TEST ORDERABLES Fin al Result Performing Organization Address [facility] de Phone Number [facility] [address] [place] [address], * SCANNED EKG (12/16/2013) [facility] ECG ORDERABLES Final Result * X-RAY [...] IMPRESSION- No acute cardiopulmonary disease. E: 12/10/2013 Quality Lead- ALEKSANDRA Nascimento Radiologist- ELKIN JACKSON [place] [...] IMPRESSION- No acute cardiopulmonary disease. E: 12/10/2013 Quality Lead- ALEKSANDRA Nascimento Radiologist- ELKIN JACKSON [facility] Radiologist- ELKIN JACKSON Released Date Time- 12/10/13 1451 Ingrid Lopez MD [facility] DIAGNOSTIC IMAGING ORDERAB LES Final Result * (ABNORMAL) C-reactive protein (12/10/2013 10:30 AM EST) C-Reactive Protein 10.400(H) 0.000 - 10.000 mg/L [facility] Blood specimen (specimen) 12/10/2013 10:30 AM EST Narrative [facility] - 12/10/2013 11:19 AM EST Specimen Type: Serum 1 Ignrid Lopez MD LAB BLOOD ORDERABLES Final Res ult [facility] [address] [place] [address], * Sedimentation rate (12/10/2013 10:30 AM EST) Pathologist [facility] Sed Rate 5 0 - 30 mm/hr [facility] Blood specimen (specimen) 12/10/2013 10:30 AM EST [facility] - 12/10/2013 11:39 AM EST Specimen Type: Blood Ingrid Lopez MD LAB BLOOD ORDERABLES Final Res ult Performing Organization Address [facility] de Phone Number [facility] [address] [place] [address], * APTT (12/10/2013 10:30 AM EST) Pathologist [facility] PTT 27 24 - 31 Seconds [facility] Comment: US by IF @ 12/10/2013 11:14 PTT = The equivalent PTT values for the therapeutic range of heparin levels at 0.3 to 0.5 U/ml are 45 to 60 seconds. PTT = The equivalent PTT values for the therapeutic range of heparin levels at 0.3 to 0.5 U/ml are 45 to 60 seconds. Blood specimen (specimen) 12/10/2013 10:30 AM EST [facility] - 12/10/2013 11:14 AM EST Specimen Type: Blood Ingrid Lopez MD LAB BLOOD ORDERABLES Final Res ult Performing Organization Address [facility] de Phone Number [facility] [address] [place] [address], * Protime-INR (12/10/2013 10:30 AM EST) Pathologist [facility] Protime 10.7 9.6 - 11.5 Seconds [facility] INR 1.00 [facility] Comment: US by IF @ 12/10/2013 11:14 Therapeutic Ranges for INR: 2.0-3.0 (PT 20-30) 2.5-3.5 (PT 25-34) Blood specimen (specimen) 12/10/2013 10:30 AM EST Narrative [facility] - 12/10/2013 11:14 AM EST Specimen Type: Blood Ingrid Lopez MD LAB BLOOD ORDERABLES Final Res ult Performing Organization Address [facility] de Phone Number [facility] [address] [place] [address], * Hemoglobin A1c (12/10/2013 10:30 AM EST) Hemoglobin A1C 5.7 4.00 - 6.00 % [facility] Comment: DF by IF @ 12/10/2013 11:16 The [place] [employer] recommends maintenance of Hemoglobin A1C at 7.0% or lower. Goals for Hemoglobin A1C reduction may need to be modified if hypoglycemia is a problem. Mean Bld Glu Estim. 111 mg/dL [facility] Blood specimen (specimen) 12/10/2013 10:30 AM EST Narrative [facility] - 12/10/2013 11:16 AM EST Specimen Type: Blood Ingrid Lopez MD LAB BLOOD ORDERABLES Final Res ult Performing Organization Address [facility] de Phone Number [facility] [address] [place] [address], * Basic metabolic panel (12/10/2013 10:30 AM EST) Glucose 96 70 - 100 mg/dL [facility] BUN 16 6 - 20 mg/dL [facility] Creatinine 1.0 0.6 - 1.3 mg/dL [facility] Sodium 142 136 - 145 mmol/L [facility] Potassium 3.8 3.4 - 5.4 mmol/L [facility] Chloride 104 98 - 107 mmol/L [facility] CO2 28 20 - 31 mmol/L [facility] Calcium 9.6 8.7 - 10.4 mg/dL [facility] eGFR 60 ml/min/1.7 32 [facility] Comment: DF by IF @ 12/10/2013 11:21 National Kidney Foundation Guidelines Stage Description GFR 1 Normal or High 90+ 2 Mild decrease 60-89 3 Moderate decrease 30-59 4 Severe decrease 15-29 5 Kidney failure <15 Anion Gap 9 3 - 11 mmol/L [facility] Blood specimen (specimen) 12/10/2013 10:30 AM EST Narrative [facility] - 12/10/2013 11:21 AM EST Specimen Type: Blood Ingrid Lopez MD LAB BLOOD ORDERABLES Final Res ult [place] [address] [place] [address], * (ABNORMAL) CBC and Differential (12/10/2013 10:30 AM EST) WBC 6.61 3.50 - 10.80 K/[facility] RBC 4.85 3.89 - 5.14 /[facility] Hemoglobin 15.2 11.5 - 15.5 g/dL [facility] Hematocrit 43.6 34.5 - 44.0 % [facility] MCV 89.9 80.0 - 99.0 fL [facility] MCH 31.3(H) 27.0 - 31.0 pg [facility] MCHC 34.9 32.0 - 36.0 g/dL [facility] RDW-CV 13.2 11.3 - 14.5 % [facility] Platelets 330 150 - 450 K/[facility] Neutrophils Absolute 3.79 1.50 - 8.30 [facility] Lymphocytes Absolute 2.03 0.60 - 4.80 K/[facility] Monocytes Absolute 0.48 0.00 - 1.00 /[facility] Eosinophils Absolute 0.26 0.10 - 0.30 K/mcL [facility] Basophils Absolute 0.03 0.00 - 0.20 K/[facility] Neutrophil Rel % 57.3 41.0 - 71.0 % [facility] Lymphocyte Rel % 30.7 24.0 - 44.0 % [facility] Monocyte Rel % 7.3 0.0 - 12.0 % [facility] Eosinophil Rel % 3.9(H) 0.0 - 3.0 % [facility] Basophil Rel % 0.5 0.0 - 1.0 % [facility] Immature Granulocyte Rel % 0.3 0.0 - 0.6 % [facility] Blood specimen (specimen) 12/10/2013 10:30 AM EST Narrative [facility] - 12/10/2013 10:56 AM EST Specimen Type: Blood Ingrid Lopez MD LAB BLOOD ORDERABLES Final Res ult [facility] [address] [place] [address], * Urinalysis Without Microscopic (12/10/2013 10:26 AM EST) Color, UA Yellow [facility] Appearance, UA Clear [facility] pH, UA 5.5 4.5 - 8.0 [facility] Specific [place], UA 1.024 1.001 - 1.030 [facility] Glucose, UA Negative NEGATIVE mg/dL [facility] Ketones, UA Negative NEGATIVE [facility] Bilirubin, UA Negative NEGATIVE [facility] Blood, UA Negative NEGATIVE [facility] Protein, UA Negative NEGATIVE mg/dL [facility] Comment: DF by IF @ 12/10/2013 10:55 This test was previously referred to as Albumin Nitrite, UA Negative NEGATIVE [facility] Leukocytes, UA Negative NEGATIVE [facility] Urobilinogen, UA 0.2 0.2 - 1.0 mg/dL [facility] Urine specimen (specimen) Urine specimen obtained by clean catch procedure / Unknown 12/10/2013 10:26 AM EST Narrative [facility] - 12/10/2013 10:55 AM EST Specimen Type: Urine Specimen Source: Clean Catch Urine Microscopic not indicated. Ingrid Lopez MD URINE ORDERABLES Final Result Performing Organization Address City/State/[facility] Co de Phone Number [facility] [address] [place] [address], documented in this encounter Visit Diagnoses Not on filedocumented in this encounter Care Teams Technical Support Engineer Relationship Specialty Start Date End Date Michael Baez MD [facility] [address] [place] [address] PCP - General Adolescent Medicine 04/25/23 documented as of this encounter
--- OUTSIDE RECORDS SUMMARY | 2025-11-18 15:41 | XMS_ITS | Encounter Summary ---
[facility] Address [address] [place] [address] Care Team Providers Care Er Nurse Name Role Phone Michael Baez MD Primary Care Provider Encounter Details Date Type Department Care Team (Late st Contact Info) Description 12/11/2018 External CPT II RN CLINICAL COORDINATOR - [facility] Social History Tobacco Use [...] on filedocumented in this encounter Care Teams Er Nurse Relationship Specialty Start Date End Date Michael Baez MD [address] [facility] [address] [facility] [address] PCP - General Adolescent Medicine 04/25/23 documented as of this encounter
--- OUTSIDE RECORDS SUMMARY | 2025-11-18 15:41 | XMS_ITS | Encounter Summary ---
Author Organization [employer] ([place], [place], [place], [place], [place]) Address [address] [place] [address] Care Team Providers Care Mechanical Press Operator Name Role Phone Unavailable Primary Care Provider Unavailabl e Encounter Details Date Type Department Care Team (Late st Contact Info) Description 05/06/2019 Transcribed Document [facility] Family Medicine [facility] [place] [address] ProviderCarlitos MD [address], [place] [id number] Social History Tobacco Use Types Packs/Day Years [...] no sleepiness and scores 0/24 in the [place] Sleepiness Scale. OTHER MEDICAL PROBLEMS: Include atrial fibrillation for which she is scheduled to see an traffic maintenance supervisor in the next several days. She [...]
--- OUTSIDE RECORDS SUMMARY | 2025-11-18 15:41 | XMS_ITS | Encounter Summary ---
Author Organization [employer] ([place], [place], [place], [place], [place]) Address [address] [place] [address] Care Team Providers Care Coal Wheeler Name Role Phone Unavailable Primary Care Provider Unavailabl e Encounter Details Date Type Department Care Team (Late st Contact Info) Description 02/18/2019 Transcribed Document [facility] Family Medicine [facility] [place] [address] ProviderCarlitos MD [address], [place] [id number] Social History Tobacco Use Types Packs/Day Years [...]
--- OUTSIDE RECORDS SUMMARY | 2025-11-18 15:41 | XMS_ITS | Encounter Summary ---
Author Organization Healthcare Address [address] [place] [address] Care Team Providers Care Naphthalene Operator Helper Name Role Phone Michael Baez MD Primary Care Provider [phone] Acacia Scott PLANNING INTERN Unavailable [phone] Virgilio Nguyễn Unavailable Elisa Camacho MATERIAL HANDLING EQUIPMENT STEVEDORE Unavailable Unavailab le Encounter Details Date Type Department Care Team (Late st Contact Info) Description 09/01/2024 Orders Only External Location [address] [place] [address] Provider, External Social History Tobacco Use Types [...] drink first t pippa in the morning (EYE-REMOTE SENSING PROGRAM MANAGER) to steady your nerves or to get [...] Visit [place] [facility] [address] [place] [address] Kylah Alejandra PA [address] [place] [address] documented as of this encounter [...] documented as of this encounter Care Teams Naphthalene Operator Helper Relationship Specialty Start Date End Date Michael Baez MD [facility] [address] [address] PCP - General 04/08/21 Acacia Scott APRN [address] [place] [address] Nurse Practitioner Cardiology 03/27/22 Virgilio Nguyễn [address] Referring Physician 10/07/[address] [facility] None TCM Nurse 05/07/25 06/06/25 documented as of this encounter
--- OUTSIDE RECORDS SUMMARY | 2025-11-18 15:41 | XMS_ITS | Encounter Summary ---
Author Organization [employer] ([place], [place], [place], [place], [place]) Address [address] [place] [address] Care Team Providers Care Clinical Informatics Director Name Role Phone Unavailable Primary Care Provider Unavailabl e Encounter Details Date Type Department Care Team (Late st Contact Info) Description 03/17/2019 Transcribed Document [facility] Family Medicine [address] [place] [address] ProviderCarlitos MD [address] [place] [address] Social History Tobacco Use Types [...] Dr. Marily Lynn Electronically signed by [facility] Conversion Water Treatment Technician Cerner at 03/16/2023 2:48 PM CDT documented in this encounter Plan of Treatment Not on file documented as of this encounter Visit Diagnoses Not on filedocumented in this encounter
--- OUTSIDE RECORDS SUMMARY | 2025-11-18 15:41 | XMS_ITS | Clinical Summary ---
Author Organization [facility] [place] Address [address] [address] Phone Care Team Providers Care Sugar Presser Name Role Phone Unavailable Primary Care Provider [...] age to complete this topic Insurance [employer] [facility] [place] [address] [address]
--- OUTSIDE RECORDS SUMMARY | 2025-11-18 15:41 | XMS_ITS | Clinical Summary ---
[facility] Organization [facility] Address [address] [place] [address] Care Team Providers Care Shoemaker Custom Name Role Phone Michael Baez MD Primary Care Provider [phone] Allergies Active Allergy Reactions Criticality Noted Date [...] Payer (Ef fective 2004-Present) Name:Supriya Andres Member ID:[id number] Relation to Subscriber:Self Name:Supriya Andres Subscriber ID:[id number] Payer ID:[id number] Group ID:Not on file Type:Not on file Address: [address] [place] [id number] [facility] MEDICARE REPLACEMENT Care Teams Shoemaker Custom Relationship Specialty Start Date End Date Michael Baez MD [address] [facility] [address] [place] [id number] PCP - General Adolescent Medicine 04/25/23
--- OUTSIDE RECORDS SUMMARY | 2025-11-18 15:41 | XMS_ITS | Encounter Summary ---
Author Organization [employer] ([place], [place], [place], [place], [place]) Address [address] [place] [address] Care Team Providers Care Demurrage Worker Name Role Phone Unavailable Primary Care Provider Unavailabl e Encounter Details Date Type Department Care Team (Late st Contact Info) Description 07/07/2019 Transcribed Document [facility] Family Medicine [facility] [place] [address] ProviderCarlitos MD [address] [place], [place] [id number] Social History Tobacco Use Types Packs/Day Years [...] no sleepiness and scores 0/24 in the [place] Sleepiness Scale. She does have very mild [...]
--- OUTSIDE RECORDS SUMMARY | 2025-11-18 15:41 | XMS_ITS | Data Portability ---
Author Organization [place] [facility], [facility] Address [address] [place] [address] Assessment Encounter Date Assessment Date Assessment LastModified [...] and regulations. Patient is located in the [facility] and the treating medical provider is located in the [facility]. The telephone call was conducted for [...] daily living. She has been told at [facility] that she was not a surgical [...] and regulations. Patient is located in the [facility] and the treating medical provider is located in the [facility]. The telephone call was conducted for approximately 15 mins. abux Not available 09/18/2024 16:47:27 Plan of Treatment Reminders Order Date Submit Date Provider Last Modified By Organization Details Last Modified Time Details Appointments None recorded. Lab None recorded. Referral orthopedic surgeon referral 2023 024 [email or web address] Aubrey Gonzáles MD, [address] [facility] [address], [place], [address], 5 07:51:54 Procedures intra-artic ular injection, hip (PROC) 2023 024 [email or web address] 1 Not available 4 12:24:31 Surgeries None recorded. Imaging XR, hip, unilateral, 2 or 3 view 2023 024 [facility] (X-Ray), [address] [place] [address] [address] [place], [address], 4 15:40:01 Medication Orders tramadol 50 mg tablet 2023 024 [facility], [address] [facility] [address] [place], [id number], 4 16:50:08 Patient TargetsNo targets recorded. Patient InstructionsNo instructions recorded. Reason for Referral Orthopedic Surgeon Referral for Pain of right hip joint Referring Physician: Uriel Sharma, Pain Management, [phone] Encounter Date: 09/18/2024 Results Created Date Observation Date Name Description Value Unit Range Abnormal Flag Note LastModifiedBy Organization Detail LastModifiedTime 09/02/20 24 MRI, lumba r spine , w/o contr ast No observ ation record ed. [email or web address] Not Available 2023 09:09:46 09/05/20 24 XR, hip + pelvi s, unila teral No observ ation record ed. [email or web address] Not Available 2023 11:33:42 Result Notes None recorded. Problems Name Problem SNOMED Code Status Onset Date Resolution Date Notes Provider Name and Address Organization Details Recorded Time Compression fracture of lumbar spine 651816283 Active 2023 [facility] 4 07:22:24 Pain of right hip joint 8680308120541 02 Active 2023 Uriel Sharma MD [address] [facility],[address] [facility], [place], [address], [place] [facility] 4 15:17:38 Osteoarthri tis of right hip joint 6000937235055 07 Active 2023 Uriel Sharma MD [address] [facility],[address], [address], [place] [facility] 4 13:45:31 Problem Notes None recorded. Procedures Surgical History Date Name Laterality Status Provider Name and Address Organization Details Recorded Time 4 Hip Joint Steroid Injection completed Uriel Sharma MD [address] [facility],[place] [address], [place], [address], [place] [facility] 09/02/2024 13:44:15 Kyphoplasty completed Uriel Sharma MD [address] [facility],[place] [address], [place], [address], [place] [facility] 08/07/2024 23:22:18 Imaging Results None recorded. Procedure Notes None recorded. Medical Equipment None Reported. Allergies Allergen ID Allergen Name Allergen Category Reaction Reaction Severity Criticality Documentation Date Start Date Code Code System Note Provider Name and Address Organization Details Recorded Time 5635 codeine medicatio n Not available Not available Not available 08/07/2024 2670 RxNorm MUSTAPHA NUNEZ null, [place] [facility] 4 13:05:28 5636 Valium medicatio n Not available Not available Not available 08/07/202498146 2 RxNorm MUSTAPHA NUNEZ null, [place] [facility] 4 13:05:33 5637 midazolam hydrochlo ride medicatio n Not available Not available Not available 08/07/202490466 8 RxNorm MUSTAPHA NUNEZ null, [place] [facility] 4 16:04:52 Medications Name Sig Start Date Stop [...] Not Available Not Available Vitals Date Recorded Pain severity - 0-10 verbal numeric rating [Score] - Reported Heart rate Oxygen saturation Body height Body mass index (BMI) Body weight Systolic And Diastolic Provider Name and Address Organization Details Last Updated DateTime 4 7 74 /min 98 % 162.56 cm 30 kg/m2 03260.6 6 g 137/80 mm[Hg] MUSTAPHA NUNEZ [place] [facility] 4 13:56:35 Date Recorded Body height Body mass index (BMI) Body weight Oxygen saturation Heart rate Pain severity - 0-10 verbal numeric rating [Score] - Reported Systolic And Diastolic Provider Name and Address Organization Details Last Updated DateTime 4 162.56 cm 30 kg/m2 99242.6 6 g 98 % 76 /min 10 136/78 mm[Hg] MUSTAPHA NUNEZ [place] [facility] 12:51:24 Social History Question Answer Notes LastModified by Organizat ion Details LastModified Time Tobacco Smoking Status Never Smoker [facility] 08/07/2024 12:52:54 In The 14 Days Before Symptom Onset, Have You Had Close Contact With A Laboratory-confirm ed COVID-19 While That Case Was Ill? No Information n ot available 08/07/2024 In The 14 Days Before Symptom Onset, Have You Had Close Contact With A Person Who Is Under Investigation For COVID-19 While That Person Was Ill? No Information not available 08/07/2024 Have You Been To An Area Known To Be High Risk For COVID-19? No [email or web address] Information not available 08/07/2024 Sex: Female Functional Status Question Answer Note LastModified by Organizat ion Details LastModified Time Do you use any illicit or recreational drugs? No [email or web address] Information not available 08/07/2024 Do you or have you ever used any other forms of tobacco or nicotine? No [email or web address] Information not available 08/07/2024 What is your level of alcohol consumption? None [email or web address] Information not available 08/07/2024 Mental Status None recorded. Family History Nothing Reported. Medical History No medical history recorded. Gynecological HistoryNo gynecological history recorded. Obstetrics History GPAL:G 0 P 0 0 0 0 Past Encounters Encounter ID Performer Location Encounter Start Date Encounter Closed Date Diagnosis/Indication Diagnosis SNOMED-CT Code Diagnosis ICD10 Code Diagnosis IMO Codes Diagnosis Note [id number] Uriel Sharma MD [address] [place] [address] 08/07/2024 12:39:56 08/08/2024 08:05:08 Compression fracture of lumbar spine 260270487 M48.56XA Compressio n fracture of L2 8589794236 5044937 M48.56XA [id number] Uriel Sharma MD [address] [place] [address] 08/22/2024 13:35:15 08/22/2024 14:58:08 Compression fracture of lumbar spine 482117722 M48.56XA Pain of ri ght hip joint 1143731373 83497 M25.551 [id number] Uriel Sharma MD [facility] [address] [place] [address] 09/02/2024 12:43:24 09/02/2024 14:03:09 Compression fracture of lumbar spine 556738998 M48.56XA Pain of ri ght hip joint 7079041234 50351 M25.551 Osteoarthr itis of right hip joint 8352218972 02972 M16.11 [id number] Uriel Sharma MD [facility] [address] [place] [address] 09/18/2024 15:30:54 09/19/2024 08:23:35 Pain of right hip joint 9801378237 16822 M25.551 Osteoarthr itis of right hip joint 2116089492 13070 M16.11 Compressio n fracture of lumbar spine 924618565 M48.56XA Health Concerns Section Related Observation LastModified by Organization Detai ls LastModified Time None Recorded Concern Status LastModified by Organization Details LastModified Time None Recorded Advance Directives Directive None Recorded Payers Insurance Date Sequence Insurance Name Policy Number Policy Kuo Covered Member ID Kuo Member ID Guarantor Name 12/15/2022 1 [place] Supriya Andres [id number] Supriya Andres 02/07/2022 2 [facility] (MEDICAID REPLACEMENT - HMO) Supriya Andres [id number] Supriya Andres 12/08/2020 2 UNSPECIFIED REMIT PAYOR Supriya Andres 04/11/2022 2 MEDICAID-[facility] HEALTH CHOICES - FFS/TRADITION [place] Supriya Andres [id number] Supriya Andres 06/03/2024 1 [employer] (MEDICARE REPLACEMENT/A DVANTAGE - PPO) Supriya Andres [id number] Supriya Andres 05/16/2024 2 MEDICAID-[facility] HEALTH CHOICES - FFS/[place]ADITION [place] Supriya Andres [id number] Supriya Andres 09/15/2024 1 [employer] (MEDICARE REPLACEMENT/A DVANTAGE - PPO) [id number] Supriya Andres [id number] Supriya Andres 09/01/2024 2 [place] Supriya Andres [id number] Supriya Andres Notes Date Note Type Note Provider Name and Address Organization Details Recorded Time 08/07/2024 text/html Back PainReporte d by PatientHPIFor location, patient reportspain radiating to the legsbut reportslumbar. For quality, patient reportssharp,aching , andconstant. For severity, patient reportspain level 7/10andmoderate (5-7). For duration, patient reportschronic. For context, patient reportstrauma. For aggravating factors, patient reportsmovement/pos itioning,twisting,f lexing back,extending back,lifting,housew ork,walking, andstanding. For associated symptoms, patient reportsno fever,no weak limbs,no numbness of the legs/feet,no tingling,no incontinence,no shortness of breath,no unintentional weight loss,no chills,no night sweats,no gait instability,no bowel/bladder symptoms, andno recent increase in stress. For prior imaging, patient reportsmriandx-ray. For alleviating factors, (nothing). Uriel Sharma MD [address], [address], [place] [facility] 08/07/2024 23:23:49 08/22/2024 text/html Hip(s)Reported b y PatientHPIFor location, patient reportsright. For quality, patient reportsachingandthr obbing. For severity, patient reportspain level 10/10andworst pain 10/10. For timing, patient reportsconstant. For duration, patient reports2 weeks. For context, patient reportscannot identify. For aggravating factors, patient reportsstanding,wal zully, andweightbearing. For alleviating factors, patient reportssitting. Back PainReported by PatientHPIFor location, patient reportspain radiating to the legsbut reportslumbar. For quality, patient reportssharp,aching , andconstant. For severity, patient reportspain level 0/10andmild (1-4). For duration, patient reportschronic. For context, patient reportstrauma. For aggravating factors, patient reportsmovement/pos itioning,twisting,f lexing back,extending back,lifting,housew ork,walking, andstanding. For associated symptoms, patient reportsno fever,no weak limbs,no numbness of the legs/feet,no tingling,no incontinence,no shortness of breath,no unintentional weight loss,no chills,no night sweats,no gait instability,no bowel/bladder symptoms, andno recent increase in stress. For prior imaging, patient reportsmriandx-ray. For alleviating factors, (nothing). Uriel Sharma MD [address], [address], [facility] 08/22/2024 15:17:54 09/02/2024 text/html Hip(s)Reported b y PatientHPIFor location, patient reportsright. For quality, patient reportsachingandthr obbing. For severity, patient reportspain level 10/10andworst pain 10/10. For timing, patient reportsconstant. For duration, patient reports2 weeks. For context, patient reportscannot identify. For aggravating factors, patient reportsstanding,wal zully, andweightbearing. For alleviating factors, patient reportssitting. Back PainReported by PatientHPIFor location, patient reportspain radiating to the legsbut reportslumbar. For quality, patient reportssharp,aching , andconstant. For severity, patient reportspain level 0/10andmild (1-4). For duration, patient reportschronic. For context, patient reportstrauma. For aggravating factors, patient reportsmovement/pos itioning,twisting,f lexing back,extending back,lifting,housew ork,walking, andstanding. For associated symptoms, patient reportsno fever,no weak limbs,no numbness of the legs/feet,no tingling,no incontinence,no shortness of breath,no unintentional weight loss,no chills,no night sweats,no gait instability,no bowel/bladder symptoms, andno recent increase in stress. For prior imaging, patient reportsmriandx-ray. For alleviating factors, (nothing). Uriel Sharma MD [address] [place] [address], [place], [address], [facility] 09/02/2024 13:46:16 OBGyn Episode No OBEpisode recorded.
--- OUTSIDE RECORDS SUMMARY | 2025-11-18 15:41 | XMS_ITS | Encounter Summary ---
Author Organization [facility] Address [address] [place] [address] Care Team Providers Care Burn Out Scarfing Operator Name Role Phone Michael Baez MD Primary Care Provider [phone] Acacia Scott APRN Unavailable [phone] Virgilio Nguyễn Unavailable Encounter Details Date Type Department Care [...] time in the past 12 m [facility], were you homeless or living [...] drink first t pippa in the morning (EYE-FUSION ANALYST) to 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 0 05/03/2025 CAGE Questionnaire Score 0 025 Utilities Answer Date Recorded In the past 12 months has th e [email or web address], gas, oil, or water company threatened to shut off services in your home? No 05/08/2025 Comments No Sex and Gender Information Value Date Recorded Sex Assigned at Not on file Legal Sex Female 7:36 PM EDT Gender Identity Not on file Sexual Orientation Not on file documented as of this encounter Functional Status * Travel Screening Question Answer Date of Assessment Author Have you traveled [place] or domestically in the last month? No 10/18/2025 6:21 PM EST Zaria rt, Generic documented as of this encounter Mental Status * Travel Screening Question Answer Entry Date Author Have you traveled [place] or domestically in the last month? No 10/18/2025 6:21 PM EST Mycha rt, Generic documented in this encounter Plan of Treatment Upcoming Encounters Date Type Department Care Team (Late st Contact Info) Description 03/15/2026 11:20 AM EDT Office Visit [place] [facility] [address] [place] [address] Kylah Alejandra, [facility] [address] [place] [address] documented as of this encounter Visit Diagnoses Not on filedocumented in this encounter Additional Health Concerns Assessment Noted Time A fall risk assessment has been complete d for the patient 08/07/2025 2:23 PM EDT A Body Mass Index follow-up plan has been documented for the patient 08/07/2025 4:31 PM EDT documented as of this encounter Care Teams Burn Out Scarfing Operator Relationship Specialty Start Date End Date Michael Baez MD [facility] 2A [id number] PCP - General 04/08/21 Acacia Scott APRN [address] [place] [id number] Nurse Practitioner Cardiology 03/27/22 Virgilio Nguyễn [id number] Referring Physician 10/07/24 documented as of this encounter
--- OUTSIDE RECORDS SUMMARY | 2025-11-18 15:41 | XMS_ITS | Encounter Summary ---
Author Organization [facility] Address [address] [place] [address] Care Team Providers Care Group Work Program Aide Name Role Phone Michael Baez MD Primary Care Provider [phone] Acacia Scott ALLERGIST/IMMUNOLOGIST PHYSICIAN Unavailable [phone] Delma Peggylucio Unavailable Reason for Visit * Reason Onset Date Comments HCN - Patient Message 08/20/2025 Update on labs Encounter Details Date Type Department Care Team (Late st Contact Info) Description 08/20/2025 Telephone [place] [facility] [address] [place] [address] Anders Sotelo MD [address] [place] [address] HCN - Patient Message (Update [...] any time in the past 12 m [facility], were you homeless or living in a [...] drink first t pippa in the morning (EYE-BUSINESS INSURANCE AGENT) to 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 0 05/03/2025 CAGE Questionnaire Score 0 025 Utilities Answer Date Recorded In the past 12 months has th e [place] [employer], gas, oil, or water company threatened to [...] supposed to be having labs done at [facility] in [place], but orders aren't there as yet. She's requesting a call back for an update. Best contact number and optimal time of day to reach caller: Please call [phone] Note: Please do not reply to this message. Follow-up communication and further actions as a result of this message need to be communicated with the patient directly, if the patient is not active onMyChart. If the patient is active on MyChart, they will receive notification of the communication/outcome via [employer]. documented in this encounter Plan of Treatment Upcoming Encounters Date Type Department Care Team (Late st Contact Info) Description 03/15/2026 11:20 AM EDT Office Visit [place] [facility] [address] [place] [address] Kylah Alejandra, [facility] [address] [facility] [address] [place] [address] documented as of this encounter Visit Diagnoses Not on filedocumented in this encounter Additional Health Concerns Assessment Noted Time A fall risk assessment has been complete d for the patient 08/07/2025 2:23 PM EDT A Body Mass Index follow-up plan has been documented for the patient 08/07/2025 4:31 PM EDT documented as of this encounter Care Teams Group Work Program Aide Relationship Specialty Start Date End Date Michael Baez MD [facility] [address] [address] PCP - General 04/08/21 Acacia Scott APRN [address] [place] [address] Nurse Practitioner Cardiology 03/27/22 Virgilio Nguyễn [address] Referring Physician 10/07/24 documented as of this encounter
--- OUTSIDE RECORDS SUMMARY | 2025-11-18 15:41 | XMS_ITS | Referral Summary ---
Author Organization [employer] ([place], [place], [place], [place], [place]) Address [address] [place] [address] Care Team Providers Care Incident Commander Name Role Phone Unavailable Primary Care Provider [...]
--- OUTSIDE RECORDS SUMMARY | 2025-11-18 15:41 | XMS_ITS | Clinical Summary ---
Author Organization [facility] Address [address] [place] [address] Care Team Providers Care Breastfeeding Program Coordinator Name Role Phone Michael Baez MD Primary Care Provider [phone] Acacia Scott APRN Unavailable [phone] Virgilio Nguyễn Unavailable Allergies Active Allergy Reactions Criticality Noted Date [...] per protocol. Coronary artery disease invo lving [place] coronary artery of [place] heart without angina pectoris 05/13/2019 Assessment & [...] Description 10/20/2025 4:00 PM EST Office Visit [facility] [address], [address] [place] [address] David Gallego MD Cerebral aneurysm (Primary Dx) 10/20/2025 12:04 PM EST - 10/20/2025 11:59 PM EST Hospital Encounter [facility] Radiology [address] [place] [phone] Cerebral aneurysm Discharge Disposition: Home or Self Care 10/20/2025 [facility] [place] [address] [facility] [address], [address] [place] [address] Acacia Scott APRN 10/20/2025 Travel 10/18/2025 Travel 09/10/2025 Travel 09/10/2025 Orders Only [facility] [address], [address] [place] [address] Prachi Hodgson PA Cerebral aneurysm (Primary Dx) 09/09/2025 11:55 PM EDT - 09/10/2025 2:18 PM EDT Hospital Encounter [facility] OPERATING ROOM [address] [place] [address] Anders Sotelo MD Armstrong, Bruce, RN Aneurysm ([facility]) (Primary Dx); Pre-op exam; Cerebral aneurysm Discharge Disposition: Home or Self Care 09/09/2025 1:15 PM EDT Anesthesia Event [facility] Interventional Radiology [address] [place] [address] Jill Barnes CRNA, Elizabeth Benitez PA 09/09/2025 Travel 09/08/2025 Travel 08/31/2025 1:00 PM EDT Pre-[facility] Testing [facility] [address], [address] [place] [address] 08/31/2025 Travel 08/20/2025 Telephone [facility] [facility] [address], [address] [place] [address] Anders Sotelo MD HCN - Patient Message (Update on labs) from Last 3 Months Immunizations Immunization Administration [...] time in the past 12 m [facility], were you homeless or living in a fci (including now)? 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 0 05/03/2025 CAGE Questionnaire Score 0 025 Utilities Answer Date Recorded In the past 12 months has th e [employer], gas, oil, or water company threatened to [...] Visit [place] [facility] [address], [address] [place] [address] Kylah Alejandra, EMMY [address] [place] [address] Health Maintenance Due Date Last Done Comments [facility]-Bone Density Scan 1950 [facility]-Medicare Annual Wellness (AWV) 1950 [facility]-/Child/Adol SDOH Screenings 1950 [facility]-DTaP,Tdap,and Td Vaccines (1 - Tdap) 1970 CT Colonography 1996 Colonoscopy 1996 FIT-DNA 1996 FIT 1996 FOBT 1996 Sigmoidoscopy 1996 [facility]-Colorectal Cancer Screening 1996 Lung Cancer Screening Shared Decision Making 2001 [facility]-Breast Cancer Screening 2001 [facility]-RSV Vaccine: 60+ Years or (1 - Risk 50-74 years 1-dose series) 2001 [facility]-Zoster Vaccines (1 of 2) 2001 [facility]-Lung Cancer Screening 08/07/2023 08/07/2022 [facility]-Depression Screening 03/31/2025 03/31/2024 [id number] Vaccine (1 - 2025-26 season) 2025 [facility]- SDOH Screenings 11/04/2025 [facility]-Adult SDOH Screenings 11/04/2025 05/05/2025 [facility]-Hepatitis C Screening Completed 05/01/2025, 10/2022 [facility]-Influenza Vaccine Completed 08/06/2025 , 08/04/2024, 12/11/2019, Additional history exists [facility]-Pneumococcal Vaccine: 50+ Years Completed 08/06/2025, 05/26/2021 [facility]-Obesity Intervention Completed 025, 08/07/2025, 06/22/2025, Additional history exists HPV Vaccines (No Doses Required) Completed [facility]-HIB Vaccines Aged Out No longer e [...] this topic Medical Devices Implanted Type Area Banquet Server On Call Device Identifier Shelf Expiration Date Model / Serial / Lot Stent Without Tip Hardwick 3mm X 24mm - [id number] Implanted:Qty: 1 on 06/22/2025 by Marifer Rose RN at [place] [id number] 01/31/2030 [id number] / / [id number] Vip Vascular Closure Device 6 Fr - [id number] Implanted:Qty: 1 on 06/22/2025 by Marifer Rose RN at [facility] [employer]-[id number] 02/23/2026 [id number] / / [id number] Coil Detach Xl Soft 7x20cm - [id number] Implanted:Qty: 1 on 09/09/2025 by Anders Sotelo MD at [place] [id number] 68 05/31/2030 [id number] / / [id number] Coil Detach Xl Soft 7x20cm - [id number] Implanted:Qty: 1 on 09/09/2025 by Anders Sotelo MD at [place] [id number] 05/29/2030 [id number] / / [id number] Coil Detach Xl Soft 6x20cm - [id number] Implanted:Qty: 1 on 09/09/2025 by Anders Sotelo MD at [facility]5 68 06/01/2030 [id number] / / [id number] Coil 360 Ultra 5mm-15cm - [id number] Implanted:Qty: 1 on 09/09/2025 by Anders Sotelo MD at [place] [id number] 68 05/11/2030 [id number] / / [id number] Coil 360 Ultra 5mm-15cm - [id number] Implanted:Qty: 1 on 09/09/2025 by Anders Sotelo MD at [place] [id number] 68 05/16/2030 [id number] / / [id number] Closure Device Vip Angioseal 8 Fr - [id number] Implanted:Qty: 1 on 09/09/2025 by Anders Sotelo MD at [facility] [employer]-[id number] 05/18/2026 [id number] / / [id number] Stent Without Tip Hardwick 3mm X 24mm - [id number] Implanted:Qty: 1 on 09/09/2025 by Anders Sotelo MD at [place] [id number] 68 02/24/2030 [id number] / / [id number] Hip Stem Inzone Detachment - [id number] Implanted:Qty: 1 on 09/09/2025 by Anders Sotelo MD at [place] [id number] 68 04/09/2027 [id number] / / [id number] Coil Detach Xl Soft 92b06vg - [id number] Implanted:Qty: 1 on 09/09/2025 by Anders Sotelo MD at [place] [id number] 06/21/2030 [id number] / / [id number] Coil Detach Xl Soft 66b21tl - [id number] Implanted:Qty: 1 on 09/09/2025 by Anders Sotelo MD at [place] [id number] 06/21/2030 [id number] / / [id number] Coil Detach Xl Soft 08a10jn - [id number] Implanted:Qty: 1 on 09/09/2025 by Anders Sotelo MD at [facility] Ann Neurovascular-[id number] 68 06/08/2030 [id number] / / [id number] Coil Detach Xl Soft 29g77pf - [id number] Implanted:Qty: 1 on 09/09/2025 by [facility][id number] 68 06/08/2030 [id number] / / [id number] Coil Detach Xl Soft 8x30cm - [id number] Implanted:Qty: 1 on 09/09/2025 by Anders Sotelo MD at [facility] Neurovascular-[id number] 68 05/04/2030 [id number] / / [id number] Procedures Procedure Name Priority Date/Time Associated Diagnosis [...] W/O DIFFERENTIAL Routine 09/09/2025 5:50 PM EDT FL CRITICAL CARE, E/M 30-74 MINUTES Routine 09/09/2025 5:20 PM EDT Aneurysm (CMS/HCC) OXYGEN THERAPY Routine 09/09/2025 3:52 PM EDT OXYGEN THERAPY Routine 09/09/2025 3:51 PM EDT IR ARTERIAL EMBOLIZATION Routine 09/09/2025 3:44 PM EDT Aneurysm (CMS/HCC) ANESTHESIA ARTERIAL LINE PLACEMENT Routine 09/09/2025 1:35 PM EDT PB ANESTHESIA PLACEHOLDER Routine 09/09/2025 1:30 PM EDT FL AN ELECTIVE ENDOTRACHEAL AIRWAY Routine 09/09/2025 1:30 [...] coil performed here 2024, Lashonda/Deepak TECHNIQUE: 3-D [id number] MR angiography was performed through the major [...] Overall intrinsic flow related enhancement suggesting patency.. [place] of [place] and Major Peripheral Branches: Sequela [...] coil performed here 2024, Lashonda/Deepak TECHNIQUE: 3-D [id number] MR angiography was performed through the majorintracranial [...] degradation. Overall intrinsic flowrelated enhancement suggesting patency.. [place] of [place] and Major Peripheral Branches: Sequela [...] Hold for add-ons 09/10/2025 8:02 AM EDT [facility] Comment:Auto resulted. Blood Venous blood specimen / Unknown 09/10/2025 4:45 AM EDT 09/10/2025 5:05 AM EDT us Anders Sotelo MD LAB BLOOD ORDERABLES Final Re sult Performing Organization Address City/[facility]/ZIP Co de Phone Number [facility] [address] [place] [address] * Light Green Top (09/10/2025 4:45 AM EDT) Pathologist [facility] Extra Hold for add-ons 09/10/2025 8:02 AM EDT [facility] Comment:Auto resulted. Blood Venous blood specimen / Unknown 09/10/2025 4:45 AM EDT 09/10/2025 5:05 AM EDT us Anders Sotelo MD LAB BLOOD ORDERABLES Final Re sult Performing Organization Address [facility] Co de Phone Number [facility] [address] [place] [address] * (ABNORMAL) Blood gas panel, arterial (09/09/2025 5:51 PM EDT) [facility] pH, Arterial 7.32 7.31 - 7.42 LAB HEMATOLOGY METHOD 09/09/2025 5:59 PM EDT [facility] pCO2, Arterial 44 35 - 48 mmHg LAB HEMATOLOGY METHOD 09/09/2025 5:59 PM EDT [facility] pO2, Arterial 128 >70 mmHg LAB HEMATOLOGY METHOD 09/09/2025 5:59 PM EDT [facility] SO2, Measured, Arterial 99(H) 94 - 98 % LAB HEMATOLOGY METHOD 09/09/2025 5:59 PM EDT [facility] Base Excess, Arterial -3.7(L) -2.0 - 3.0 mmol/L LAB HEMATOLOGY METHOD 09/09/2025 5:59 PM EDT [facility] Bicarbonate, Calculated, Arterial 22 22 - 26 mmol/L LAB HEMATOLOGY METHOD 09/09/2025 5:59 PM EDT [facility] Hematocrit, Whole Blood 33.8(L) 34.0 - 45.0 % LAB HEMATOLOGY METHOD 09/09/2025 5:59 PM EDT [facility] Sodium, Whole Blood 143 136 - 145 mmol/L LAB HEMATOLOGY METHOD 09/09/2025 5:59 PM EDT [facility] Potassium, Whole Blood 4.1 3.6 - 4.9 mmol/L LAB HEMATOLOGY METHOD 09/09/2025 5:59 PM EDT [facility] Chloride, Whole Blood 114(H) 97 - 107 mmol/L LAB HEMATOLOGY METHOD 09/09/2025 5:59 PM EDT [facility] Glucose, Whole Blood 114(H) 74 - 99 mg/dL LAB HEMATOLOGY METHOD 09/09/2025 5:59 PM EDT [facility] Ionized Calcium, Whole Blood 4.4(L) 4.6 - 5.1 mg/dL LAB HEMATOLOGY METHOD 09/09/2025 5:59 PM EDT [facility] Lactate, Arterial, Whole Blood 0.7 0.5 - 1.6 mmol/L LAB HEMATOLOGY METHOD 09/09/2025 5:59 PM EDT [facility] Blood Arterial blood specimen / Unknown Arterial Puncture / Unknown 09/09/2025 5:51 PM EDT 09/09/2025 5:58 PM EDT us Rose Dang TRAINING CONSULTANT, DNP LAB BLOOD ORDERABLES Fi nal Result [facility] [address] [place] [address] * (ABNORMAL) CBC W/O Differential (09/09/2025 5:50 PM EDT) WBC Count 5.96 3.70 - 10.30 10*3/uL LAB HEMATOLOGY METHOD 09/09/2025 6:20 PM EDT [facility] RBC Count 3.76(L) 3.90 - 5.20 10*6/uL LAB HEMATOLOGY METHOD 09/09/2025 6:20 PM EDT [facility] HGB 11.2 11.2 - 15.7 g/dL LAB HEMATOLOGY METHOD 09/09/2025 6:20 PM EDT [facility] HCT 34.8 34.0 - 45.0 % LAB HEMATOLOGY METHOD 09/09/2025 6:20 PM EDT [facility] Platelet Count 235 155 - 369 10*3/uL LAB HEMATOLOGY METHOD 09/09/2025 6:20 PM EDT [facility] MCV 93 79 - 98 fL LAB HEMATOLOGY METHOD 09/09/2025 6:20 PM EDT [facility] MCH 29.8 26.0 - 32.0 pg LAB HEMATOLOGY METHOD 09/09/2025 6:20 PM EDT [facility] MCHC 32.2 30.7 - 35.5 g/dL LAB HEMATOLOGY METHOD 09/09/2025 6:20 PM EDT [facility] RDW 14.6(H) 11.5 - 14.5 % LAB HEMATOLOGY METHOD 09/09/2025 6:20 PM EDT [facility] MPV 9.3 8.8 - 12.5 fL LAB HEMATOLOGY METHOD 09/09/2025 6:20 PM EDT [facility] nRBC 0.0 <=0.0 per 100 WBCs LAB HEMATOLOGY METHOD 09/09/2025 6:20 PM EDT [facility] Blood Venous blood specimen / Unknown Venipuncture / Unknown 09/09/2025 5:50 PM EDT 09/09/2025 6:12 PM EDT us Rose Dang TRAINING CONSULTANT, DNP LAB BLOOD ORDERABLES Fi nal Result Performing Organization Address City/[facility] Co de Phone Number [facility] [address] [place] [address] * (ABNORMAL) Phosphorus, Plasma (09/09/2025 5:50 PM EDT) Pathologist [facility] Phosphorus, Plasma 5.6(H) 2.5 - 4.5 mg/dL 09/09/2025 6:38 PM EDT [facility] Blood Venous blood specimen / Unknown Venipuncture / Unknown 09/09/2025 5:50 PM EDT 09/09/2025 6:06 PM EDT us Rose Lucina Dang TRAINING CONSULTANT, DNP LAB BLOOD ORDERABLES Fi nal Result Performing Organization Address City/[facility]/ZIP Co de Phone Number [facility] [address] [place] [address] * (ABNORMAL) Magnesium, Plasma (09/09/2025 5:50 PM EDT) Pathologist [facility] Magnesium, Plasma 1.5(L) 1.9 - 2.4 mg/dL 09/09/2025 6:38 PM EDT [facility] Blood Venous blood specimen / Unknown Venipuncture / Unknown 09/09/2025 5:50 PM EDT 09/09/2025 6:06 PM EDT Rose Dang TRAINING CONSULTANT, DNP LAB BLOOD ORDERABLES Fi nal Result [facility] [address] [place] [address] * (ABNORMAL) Comprehensive metabolic panel (09/09/2025 5:50 PM EDT) [facility] Glucose, Plasma 112(H) 74 - 99 mg/dL 09/09/2025 6:38 PM EDT [facility] BUN, Plasma 8 8 - 23 mg/dL 09/09/2025 6:38 PM EDT [facility] Creatinine, Plasma 0.74 0.60 - 1.10 mg/dL 09/09/2025 6:38 PM EDT [facility] BUN/Creatinine Ratio 11 09/09/2025 6:38 PM EDT [facility] Sodium, Plasma 142 136 - 145 mmol/L 09/09/2025 6:38 PM EDT [facility] Potassium, Plasma 4.3 3.6 - 4.9 mmol/L 09/09/2025 6:38 PM EDT [facility] Chloride, Plasma 111(H) 97 - 107 mmol/L 09/09/2025 6:38 PM EDT [facility] CO2, Plasma 20(L) 22 - 29 mmol/L 09/09/2025 6:38 PM EDT [facility] Anion Gap 11 6 - 16 mmol/L 09/09/2025 6:38 PM EDT [facility] Total Calcium, Plasma 7.8(L) 8.9 - 10.2 mg/dL 09/09/2025 6:38 PM EDT [facility] Total Protein 5.8(L) 6.3 - 7.9 g/dL 09/09/2025 6:38 PM EDT [facility] Albumin, Plasma 3.5 3.5 - 5.2 g/dL 09/09/2025 6:38 PM EDT [facility] AST, Plasma 22 10 - 35 U/L 09/09/2025 6:38 PM EDT [facility] ALT, Plasma 13 10 - 35 U/L 09/09/2025 6:38 PM EDT [facility] Alkaline Phosphatase, Plasma 51 46 - 142 U/L 09/09/2025 6:38 PM EDT [facility] Total Bilirubin, Plasma 0.6 0.2 - 1.1 mg/dL 09/09/2025 6:38 PM EDT [facility] eGFRcr 85.6 mL/min/1.7 3m*2 09/09/2025 6:38 PM EDT [facility] Comment:Reported eGFRcr in m L/min/1.73m2 is based the CKD-EPI 2020 equation that does not use a race coefficient. Blood Venous blood specimen / Unknown Venipuncture / Unknown 09/09/2025 5:50 PM EDT 09/09/2025 6:06 PM EDT us Rose Dang APRN, DNP LAB BLOOD ORDERABLES Fi nal Result [facility] [address] [place] [address] * FL CRITICAL CARE, E/M 30-74 MINUTES (09/09/2025 5:20 [...] stent assisted coil embolization. COMPARISON: [facility] 06/22/2025 HAIR MACHINE OPERATOR: Anders Sotelo M.D. SECONDARY FIRE EXTINGUISHER TECHNICIAN: Yumi Jefferson MD LENGTH OF PROCEDURE: 57 [...] femoral artery was then accessed with 4 Sammarinese micropuncture set, and a 4 Sammarinese sheath advanced over a J-wire. The sheath [...] 90 cm BMX 81 guide catheter.A 5 Sammarinese La 2 catheter was advanced over a 0.035 Angle-Faison guidewire through the sheath and into the [...] obtained. At this point, a Milena 5 nigerian intermediate distal access catheter, SL-10 microcatheter, and Buzz 0.014 microwire were coaxially advanced through the guide catheter into the right MCA artery for the support needed to advance the intermediate catheter. The microwire microcatheter were navigated into the right JONAH A1 segment, the microwire was navigated through the aneurysm into the right pericallosal artery. The microwire was removed. A Neuroform Hardwick stent measuring 3 mm x 24 mm [...] the puncture site was closed using 8 nigerian angioseal. Patient tolerated the procedure and she [...] stent assisted coil embolization. COMPARISON: [facility] 06/22/2025 HAIR MACHINE OPERATOR: Anders Sotelo M.D. SECONDARY FIRE EXTINGUISHER TECHNICIAN: Yumi Jefferson MD LENGTH OF PROCEDURE: 57 [...] common femoral artery wasthen accessed with 4 Sammarinese micropuncture set, and a 4 Sammarinese sheathadvanced over a J-wire. The sheath was connected to a regulated,pressurized infusion of heparinized saline. During access, ultrasoundguidance was used to confirm vessel patency, and to visualize the vascularneedle entry during access. Ultrasound images were included in the finalreport. Using roadmap technique, the sheath was exchanged over a 145cm J-wire fora 90 cm BMX 81 guide catheter.A 5 Sammarinese La 2 catheter was advancedover a 0.035 Angle- Faison guidewire through the sheath and into thesubclavian [...] cerebral artery A2 segment aneurysm note. Aneurysm fpwbtpuz39.4 mm x 14.1 mm with 4.6 mm [...] cerebral artery A2 segment aneurysm note. Aneurysm jmvxattq55.4 mm x 14.1 mm with 4.6 mm [...] obtained. At this point, a Milena 5 nigerian intermediate distal accesscatheter, SL-10 microcatheter, and Buzz 0.014 microwire werecoaxially advanced through the guide catheter into the right MCA arteryfor the support needed to advance the intermediate catheter. The microwiremicrocatheter were navigated into the right JONAH A1 segment, the microwirewas navigated through the aneurysm into the right pericallosal artery. Themicrowire was removed. A Neuroform Hardwick stent measuring 3 mm x 24 mm [...] and thepuncture site was closed using 8 nigerian angioseal. Patient tolerated theprocedure and she was [...] ORDERABLES Edited Re sult - Final * FL AN ELECTIVE ENDOTRACHEAL AIRWAY, PB ANESTHESIA PLACEHOLDER (09/09/2025 1:30 PM EDT) Narrative Jill Barnes CRNA, DNP - 09/09/2025 1:30 PM EDT Jill Barnes CRNA, DNP 09/09/2025 1:43 PM Airway Date/Time: 09/09/2025 1:30 PM Reason: elective Airway not difficult General Information and Staff Patient location during procedure: OR BLOCK SEALER: Jill Barnes CRNA, DNP Performed: BLOCK SEALER Patient Condition Indications for airway management: anesthesia [...] Antibody Negative Negative 05/01/2025 9:16 PM EDT [facility] Blood Venous blood specimen / Unknown Venipuncture / Unknown 05/01/2025 8:22 PM EDT 05/01/2025 8:34 PM EDT Rula Howe MD LAB BLOOD ORDERABLES Final Re sult [facility] [address] [place] [address] * CT Chest wo IV Contrast (08/07/2022 [...] WO IV CONTRAST ordered by GUILLERMO PHILIP, [id number] CLINICAL INDICATION: Low back pain, no red [...] WO IV CONTRAST ordered by GUILLERMO PHILIP, [id number] CLINICAL INDICATION: Low back pain, no red [...] Most Recently Relevant to Health Maintenance Insurance [employer] MEDICARE Advance Directives * Full Code (Latest [...] Patient has decision-making capacity? Yes Care Teams Breastfeeding Program Coordinator Relationship Specialty Start Date End Date Michael Baez MD [facility] [phone] PCP - General 04/08/21 Acacia Scott APRN [address] [place] [address] Nurse Practitioner Cardiology 03/27/22 Virgilio Nguyễn [id number] Referring Physician 10/07/24
--- OUTSIDE RECORDS SUMMARY | 2025-11-18 15:41 | XMS_ITS | Encounter Summary ---
Author Organization [facility] Address [address] [place] [address] Care Team Providers Care Automatic Blocker Name Role Phone Michael Baez MD Primary Care Provider [phone] Acacia Scott LDR NURSE Unavailable [phone] Virgilio Nguyễn Unavailable Reason for Visit * Reason Onset Date Comments Med Refill 10/20/2025 The pended medic ations have been requested for refill. Please send to Specialty Pharmacy. 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 0 05/03/2025 CAGE Questionnaire Score 0 025 Utilities Answer Date Recorded In the past 12 months has th e [employer], gas, oil, or water company threatened to [...] [facility] st Contact Info) Description 03/15/2026 11:20 AM EDT Office Visit [place] [facility] [address], [address] [place] [address] Kylah Alejandra, EMMY [address] [place] [address] documented as of this encounter Visit Diagnoses Not on filedocumented in this encounter Additional Health Concerns Assessment Noted Time A fall risk assessment has been complete d for the patient 08/07/2025 2:23 PM EDT A Body Mass Index follow-up plan has been documented for the patient 10/20/2025 4:20 PM EST documented as of this encounter Care Teams Automatic Blocker Relationship Specialty Start Date End Date Michael Baez MD [facility]A [id number] PCP - General 04/08/21 Acacia Scott APRN [address] [place] [phone] Nurse Practitioner Cardiology 03/27/22 Virgilio Nguyễn [id number] Referring Physician 10/07/24 documented as of this encounter
--- OUTSIDE RECORDS SUMMARY | 2025-11-18 15:41 | XMS_ITS | Clinical Summary ---
Author Organization [employer] ([place], [place], [place], [place], [place]) Address [address] [place] [address] Care Team Providers Care Manager Of School Name Role Phone Unavailable Primary Care Provider [...]
--- OUTSIDE RECORDS SUMMARY | 2025-11-18 15:41 | XMS_ITS | Encounter Summary ---
Author Organization [facility] Address [address] [place] [address] Care Team Providers Care Regulatory Coordinator Name Role Phone Michael Baez MD Primary Care Provider [phone] Acacia Scott APRN Unavailable [phone] Virgilio Nguyễn Unavailable Encounter Details Date Type [...] any time in the past 12 [facility], were you homeless or living in [...] drink first t pippa in the morning ([employer]) to steady your nerves or to get [...] as of this encounter Functional Status * Communicable Disease Screening Question Answer Date of Assessment Author Have you been in contact wit h someone who was sick? No / Unsure 10/20/2025 12:04 PM EST Krissy Diaz Do you have any of the follo wing new or worsening symptoms? None of these 10/20/2025 12:04 PM JORGE DiazAashish * Travel Screening Question Answer Date of Assessment Author Have you traveled [place] or domestically in the last month? No 10/20/2025 12:04 PM Krissy Choudhary documented as of this encounter Mental Status * Communicable Disease Screening Question Answer Entry Date Author Have you been in contact wit h someone who was sick? No / Unsure 10/20/2025 12:04 PM Krissy Choudhary Do you have any of the follo wing new or worsening symptoms? None of these 10/20/2025 12:04 PM JORGE Diaz Reaganniru bauer * Travel Screening Question Answer Entry Date Author Have you traveled [place] or domestically in the last month? No 10/20/2025 12:04 PM Krissy Choudhary documented in this encounter Plan of Treatment Upcoming Encounters Date Type Department Care Team (Late st Contact Info) Description 03/15/2026 11:20 AM EDT Office Visit [place] [facility] [address] [place] [address] Kylah Alejandra, PA [address] [place] [address] documented as of this encounter Visit Diagnoses Not on filedocumented in this encounter Additional Health Concerns Assessment Noted Time A fall risk assessment has been complete d for the patient 08/07/2025 2:23 PM EDT A Body Mass Index follow-up plan has been documented for the patient 10/20/2025 4:20 PM EST documented as of this encounter Care Teams Regulatory Coordinator Relationship Specialty Start Date End Date Michael Baez MD [facility] 2A [id number] PCP - General 04/08/21 Acacia Scott APRN [address] [place] [id number] Nurse Practitioner Cardiology 03/27/22 Virgilio Nguyễn [id number] Referring Physician 10/07/24 documented as of this encounter
--- NOTE | 2025-11-18 15:48 | CT_ITS ---
PROCEDURE INFORMATION: Exam: CT Abdomen And Pelvis With Contrast Exam date and time: 11/18/2025 4:37 PM Age: 74 years old Clinical indication: Abdominal pain; Additional info: Llq abdominal pain, n/v/d, HX of diverticulitis TECHNIQUE: Imaging protocol: Computed tomography of the abdomen and pelvis with contrast. Radiation optimization: All CT scans at this facility use at least one of these dose optimization techniques: automated exposure control; mA and/or kV adjustment per patient size (includes targeted exams where dose is matched to clinical indication); or iterative reconstruction. Contrast material: ISOVUE; Contrast volume: 75 ml; Contrast route: IV; COMPARISON: CT ANGIO ABDOMEN PELVIS 10/26/2025 1:49 PM FINDINGS: Lungs: The visualized lung bases are clear. Heart: The visualized portions of the heart are unremarkable. Diaphragm: A small hiatal hernia is present. Liver: There is diffuse decrease in hepatic/liver parenchymal density consistent with fatty infiltration. Gallbladder and biliary ducts: There is a 10 mm ovoid focus of increased attenuation in the proximal gallbladder likely reflecting noncalcified stone. No gallbladder wall thickening or pericholecystic fluid. Pancreas: Normal. No ductal dilation. Spleen: The spleen demonstrates punctate calcifications, consistent with remote granulomatous organism exposure. The spleen is normal. Adrenal glands: The right adrenal gland is normal. There is nodular enlargement of the anterior left adrenal gland measuring 12 x 9 mm, not optimally characterized on current exam. Correlate clinically. The Kidneys and ureters: There is a tiny hypodensity in the inferior left kidney, too small to adequately characterize. Statistically, this is likely a cyst. The No hydronephrosis. Stomach and bowel: Apparent mural thickening involving the anorectal region be related to or accentuated by incomplete distention. This is best seen on series 1001 images 53 -55, as well as series 3 images 104 -114. This is most noted involving the left lateral and posterior rectal wall and which appears slightly more circumferential distally. The overall appearance is not dramatically changed. Correlate clinically as proctitis or other inflammatory/infiltrative/neoplastic/ischemic processes cannot entirely be excluded. Mild diverticulosis is present in the distal colon. There is no evidence of colitis/diverticulitis. Unopacified loops of small bowel within range of normal. Aside from the hiatal hernia, the stomach is within range of normal. The duodenum is unremarkable. Appendix: No evidence of appendicitis. Intraperitoneal space: There is no evidence of free intraperitoneal or pelvic fluid. No evidence of intraperitoneal free air. Vasculature: The aorta and iliac arteries demonstrate moderate atherosclerotic calcification. There are a few benign phleboliths in the pelvis. The Descending thoracic aorta measures 3 x 3.1 cm. The proximal abdominal aorta measures 2.7 x 2.9 cm. The mid abdominal aorta measures 1.8 cm. Previously described mild right renal artery stenosis is more optimally evaluated on recent CTA. Can not exclude minor left renal artery stenosis. No significant celiac or SMA artery stenosis. Lymph nodes: There is no evidence of pathologic adenopathy. Urinary bladder: The bladder is normal. Reproductive: The uterus is either atrophic or absent. No adnexal masses. Bones/joints: There are moderate to severe stable degenerative changes of the hip joints, greater on the left. There are moderate to severe degenerative changes of the symphyseal pubic joint. There are moderate degenerative changes of the sacroiliac joints. There is moderate diffuse osteopenia. The thoracolumbar spine demonstrates moderate degenerative changes at multiple levels, stable since 10/26/2025. Post kyphoplasty changes involving L2 are stable. Mild concavity and sclerosis of the inferior endplate of L1 is stable. There is grade 1 retrolisthesis of L1 on L2 and L2 on L3, unchanged. There is grade 1 anterior spondylolisthesis of L4 on L5, unchanged. Prominent bilateral neural foraminal narrowing is present at all levels from L1 through S1, unchanged. Soft tissues: No significant soft tissue edema. There is mild asymmetric fat density within both inguinal canals suggesting small inguinal hernias. IMPRESSION: 1. Apparent mural thickening involving the anorectal region may be related to or accentuated by incomplete distention but can not exclude proctitis or other inflammatory/infiltrative/neoplastic/ischemic processes. Correlate clinically. 2. Mild distal colonic diverticulosis without evidence of diverticulitis. 3. Stable cholelithiasis. 4. Stable nonspecific left adrenal nodule. 5. Stable minor fat containing bilateral inguinal hernias. 6. Small hiatal hernia. 7. Fatty hepatic infiltration.
--- NOTE | 2025-11-18 15:54 | ED_ITS ---
<Statement entered by Jill Patterson DO - 11/19/25 01:38> I was consulted by the [facility], and we discussed the complexity of problems being addressed. I approve the treatment and management plan for this patient's care in the emergency department, thus performing a substantial portion of the medical decision making. Jill Patterson DO Discharge Plan Disposition Patient Disposition: Home, Self-Care Prescriptions Prescriptions: New ondansetron 4 mg tablet,disintegrating 4 mg PO Q8H PRN (Reason: nausea and vomiting) Qty: 10 0RF doxycycline hyclate 100 mg capsule 100 mg PO BID Qty: 20 0RF No Action cetirizine 10 mg tablet 10 mg PO gabapentin 300 mg capsule 300 mg PO TID sacubitril-valsartan [Entresto] 24-26 mg tablet 1 tab PO BID Qty: 60 11RF budesonide [Pulmicort] 0.5 mg/2 mL suspension for nebulization 0.5 mg inhalation BID 90 Days Qty: 360 2RF fluticasone propionate 50 mcg/actuation spray,suspension See Rx Instructions .ROUTE .COMPLEX Qty: 16 0RF Dose Instruction: USE 2 SPRAYS IN EACH NOSTRIL ONCE A DAY Rx Instructions: USE 2 SPRAYS IN EACH NOSTRIL ONCE A DAY montelukast 10 mg tablet 10 mg PO DAILY 90 Days Qty: 90 3RF ipratropium-albuterol 0.5 mg-3 mg(2.5 mg base)/3 mL solution for nebulization 3 ml inhalation Q8H 90 Days Qty: 540 3RF clopidogrel [Plavix] 75 mg tablet 75 mg PO DAILY Qty: 30 5RF fluticasone propion-salmeterol [Advair Diskus] 500-50 mcg/dose blister with device 1 inh inhalation BID Qty: 180 2RF Combivent Respimat 20-100 mcg/actuation mist See Rx Instructions .ROUTE .COMPLEX Qty: 4 3RF Dose Instruction: inhale 1 PUFF BY MOUTH EVERY 6 HOURS NEEDED FOR shortness of breath OR wheezing Rx Instructions: inhale 1 PUFF BY MOUTH EVERY 6 HOURS NEEDED FOR shortness of breath OR wheezing Breztri Aerosphere 160-9-4.8 mcg/actuation HFA aerosol inhaler 2 puff PO BID Qty: 10.7 2RF trazodone 50 mg tablet 50 mg PO HS bisoprolol fumarate 5 mg tablet 5 mg PO DAILY famotidine 20 mg tablet 20 mg PO BID temazepam 15 mg capsule 15 mg PO HS albuterol sulfate 90 mcg/actuation HFA aerosol inhaler 2 inh INHALATION Q4HP PRN (Reason: Shortness of breath) escitalopram oxalate 20 mg tablet 20 mg PO DAILY Eliquis 5 mg tablet 5 mg PO BID Gemtesa 75 mg tablet 75 mg PO DAILY Fasenra Pen 30 mg/mL auto-injector 30 mg SQ Q56D Repatha SureClick 140 mg/mL pen injector 140 mg SQ Q14D pantoprazole [Protonix] 40 mg tablet,delayed release (DR/EC) 40 mg PO DAILY Qty: 30 0RF Rx Instructions: Take on empty stomach. Referrals Follow up/Referrals: Miguel Ángel Cheatham II, MD [Staff Physician, Gastroenterology] - See instructions Michael Baez MD [Primary Care Provider, Internal Medicine] - See instructions Activity Restrictions/Add. Instructions Additional Instructions/Restrictions: You were seen in the emergency room today and diagnosed with possible acute proctitis. You were given a prescription for antiemetics, and doxycycline for 7 days. You should follow-up with GI for this acute proctitis. Should you have any worsening of symptoms you should return to the ER. Clinical Impressions Clinical Impression: Acute proctitis Instructions Patient Instructions: DI for Diarrhea and Traveler's Diarrhea in Adults, DI for Diarrhea and Traveler's Diarrhea in Children, DI for Nausea in Adults, DI for Nausea in Children Print Language Print Language: Romanian Discharge ED Provider: Jill Patterson General Adult HPI General Chief complaint: Nausea/Vomiting/Diarrhea Stated complaint: vomiting, diarrhea,stomach cramps Time Seen by Provider: 11/18/25 15:39 Mode of Arrival: Ambulatory Source of Information: Patient and Spouse Description of Symptoms (Recalled from ER Triage Doc. by RN): PATIENT PRESENTS TO ED FOR N/V/D AND LLQ ABDOMINAL PAIN THAT BEGAN AT 0500 THIS MORNING. HX OF DIVERTICULITIS. REPORTS CHILLS BUT NO KNOWN FEVER. History of Present Illness HPI narrative: Supriya Andres is a 74-year-old female who presents emergency room today with complaints of NBNB emesis, nausea, and left lower quadrant abdominal pain. This winter states that her symptoms started around 5:00 this morning. Has had multiple episodes of emesis today. Tells me that she does have a history of diverticulitis in the past but thinks that this feels different than her prior diverticulitis . Reports several episodes of diarrhea as well, did note 1 episode of BRBPR this morning. No melanotic stools noted. No dizziness, lightheadedness. Prior abdominal surgeries include a hysterectomy, still has her gallbladder and appendix. No fever noted. No known sick contacts. Has not eaten anything unusual over the last day or 2. Does take Eliquis for A-fib, last dose was this morning. Is unsure when she last took her Entresto, states she has been out for a while . Please note that the above description of symptoms, and this electronic medical record under categorization of recalled from ER triage doctor by RN are reflective of an initial nursing assessment, however, is not reflective of my full history and physical exam that was personally taken and clarified. Consequentially, this proceeding description of symptoms, which may include the patient's cauterized chief complaint in the EMR, do not reflect my personal clinical impression, and the ultimate description of the history of present illness stated complaints should be deferred to this section of this note. Unless stated otherwise were congruent with the section of the note, additional signs, symptoms, or incongruence can be interpreted as in or accurate with my clinical impression. Related Data Home Medications ?Medication ?Instructions ?Recorded ?Confirmed albuterol sulfate 90 mcg/actuation 2 inh inhalation Q4 HP PRN 10/12/24 09/03/25 aerosol inhaler Shortness of breath apixaban 5 mg tablet (Eliquis) 5 mg PO BID 10/12/24 bisoprolol fumarate 5 mg tablet 5 mg PO DAILY 10/12/24 09/03/25 escitalopram oxalate 20 mg tablet 20 mg PO DAILY 10/1209/03/25 famotidine 20 mg tablet 20 mg PO BID 10/12/24 temazepam 15 mg capsule 15 mg PO HS 10/12/24 5 trazodone 50 mg tablet 50 mg PO HS 10/12/24 5 vibegron 75 mg tablet (Gemtesa) 75 mg PO DAILY 4 09/03/25 benralizumab 30 mg/mL subcutaneous 30 mg SQ Q56D 10/1309/03/25 auto-injector (Fasenra Pen) evolocumab 140 mg/mL subcutaneous 140 mg SQ Q14D 10/1309/03/25 pen injector (Naeem ChapinJonatanick) cetirizine 10 mg tablet 10 mg PO 01/30/25 09/03/25 gabapentin 300 mg capsule 300 mg PO TID 09/03/2509/03 Previous Rx's ?Medication ?Instructions ?Recorded pantoprazole 40 mg tablet,delayed 40 mg PO DAILY #30 t abs 01/11/25 release (Protonix) budesonide 0.5 mg/2 mL suspension 0.5 mg (2 mL) inhala tion BID 90 04/21/25 for nebulization (Pulmicort) days #360 mL fluticasone propionate 50 See Rx Instructions .Route 0 05/25/25 mcg/actuation nasal .COMPLEX #16 grams spray,suspension montelukast 10 mg tablet 10 mg PO DAILY 90 days #90 t abs 06/29/25 ipratropium 0.5 mg-albuterol 3 mg 3 ml inhalation Q8H 3 months #540 07/20/25 (2.5 mg base)/3 mL nebulization mL soln clopidogrel 75 mg tablet (Plavix) 75 mg PO DAILY #30 t abs 08/27/25 fluticasone 500 mcg-salmeterol 50 1 inh inhalation BID #180 ea 08/27/25 mcg/dose blistr powdr for inhalation (Advair Diskus) sacubitril 24 mg-valsartan 26 mg 1 tab PO BID #60 tabs 09/03/25 tablet (Entresto) ipratropium 20 mcg-albuterol 100 See Rx Instructions . Route 09/23/25 mcg/actuation mist for inhalation .COMPLEX #4 grams (Combivent Respimat) budesonide 160 mcg-glycopyr 9 2 puff PO BID #10.7 gram s 11/03/25 mcg-formot 4.8 mcg/actuation HFA inhaler (Breztri Aerosphere) doxycycline hyclate 100 mg capsule 100 mg PO BID #20 c aps 11/18/25 ondansetron 4 mg disintegrating 4 mg PO Q8H PRN nausea and 11/18/25 tablet vomiting #10 tabs Allergies Allergy/AdvReac Type Severity Reaction Status Date / Time codeine Allergy Mild Gastrointestinal Verified 09/03/25 13:20 Upset diphenhydramine (From Allergy Mild Flushing Verified 09/03/25 13:20 Benadryl) Penicillins Allergy Mild Hives Verified 09/03/25 13:20 hydromorphone (From Dilaudid) Allergy Agitated Verified 09/03/25 13:20 lorazepam (From Ativan) Allergy Anxiety Verified 09/03/25 13:20 isosorbide AdvReac Intermediate Severe CHENEY Verified 09/03/25 13:20 diazepam (From Valium) AdvReac Mild Agitated Verified 09/03/25 13:20 hydrocodone AdvReac Hives Verified 09/03/25 13:20 PFSH PFSH Disclaimer: The information contained in this section may have been updated after the patient was seen, as this information can be updated by other users. Medical History Abnormal electrocardiogram [ECG] [EKG] Encounter for screening for malignant neoplasm of respiratory organs Epigastric pain Unstable angina Chest pain Atypical angina Chest pain Acute hypoxemic respiratory failure Hypertension, uncontrolled Asthma exacerbation Pneumonia Dyspnea on exertion Encounter for screening for malignant neoplasm of lung in current smoker with 30 pack year history or greater COPD exacerbation Elevated brain natriuretic peptide (BNP) level Atrial fibrillation Acute exacerbation of chronic obstructive airways disease Respiratory failure with hypoxia SOB (shortness of breath) History of left heart catheterization Abnormal echocardiogram HFrEF (heart failure with reduced ejection fraction) Peripheral eosinophilia Severe persistent asthma Stopped smoking with greater than 30 pack year history Eosinophilia (Unknown) Allergic rhinitis Asthma History of smoking 30 or more pack years Acute respiratory failure with hypoxia Restless leg syndrome Hyperlipidemia Hypertension Atrial fibrillation Anxiety Depression COPD (chronic obstructive pulmonary disease) Thoracic compression fracture Former smoker CAD (coronary artery disease) Surgical History History of colon resection History of bilateral knee replacement H/O: hysterectomy Status post ablation of atrial fibrillation OCT 2019 Hx of CABG Family History Other No significant family history Social History Smoking Status: Never smoker years smoked: 56 how long ago did patient quit smoking: july 2022 quit status: quit date established second hand exposure: No alcohol intake: never substance use type: denies use current occupational status: retired Travel in the last 8 weeks?: None household members: spouse and children housing: house lives independently: No marital status: education level: college current occupational exposures/hazards: No caffeine: Yes Have you lived/traveled outside [place] in past 30 days?: No Contact w/someone who lives/traveled outside [place] past 30 days?: No Exposure to someone with infectious disease in past 14 days?: No Do you have a fever (greater than 100.4 F or 38 C)?: No Have you tested positive for COVID-19?: No Exposed to someone with COVID-19 in past 14 days?: No Do you have a sore throat?: No Do you have a cough?: No Do you have any weakness?: No Do you have any diarrhea?: Yes Are you experiencing any unusual bleeding?: No Do you have any muscle aches/pain?: No Do you have any abdominal pain?: Yes Are you experiencing loss of taste or smell?: No Other Medical History Have you received the Flu Vaccine for this season: No Have you received the Pneumonia Vaccine: Yes ROS Obtained: Yes All systems reviewed & no additional complaints except as documented Physical Exam General General appearance: alert and in no apparent distress Head Head exam: atraumatic, normocephalic and normal inspection Eye Eye exam: Present normal appearance, PERRL and EOMI ENT ENT exam: Present normal exam, normal oropharynx, mucous membranes moist, TM's normal bilaterally and normal external ear exam Neck Neck exam: Present normal inspection, full ROM and trachea midline; Absent meningismus or lymphadenopathy Chest Chest inspection: Present normal inspection and symmetric chest wall rise; Absent tenderness Respiratory Respiratory exam: Present normal lung sounds bilaterally; Absent respiratory distress Cardiovascular Cardiovascular exam: Present regular rate and normal rhythm; Absent JVD Abdominal Exam Abdominal exam: Present soft, tenderness and normal bowel sounds Abdominal tenderness: Present LLQ (TTP left lower quadrant, abdomen soft, hypoactive bowel sounds, no peritoneal signs) Extremities Exam Extremities exam: Present normal inspection, full ROM and normal capillary refill; Absent calf tenderness Back Exam Back exam: Present normal inspection; Absent tenderness Neurological Exam Neurological exam: Present alert and oriented X3 Psychiatric Psychiatric exam: Present normal affect and normal mood Skin Skin exam: Present warm, dry, intact and normal color Lymphatic Lymphatic Findings: no adenopathy Medical Decision Making Medical Records Screening: Per USPSTF and CDC recommendations, given the prevalence of disease in our region, it is our hospital?s policy to screen for HIV and viral Hepatitis for all patients aged 18 and over and those with ongoing risk factors. Donald Inquiry Pt receiving controlled substance: No Vital Signs: 11/18/25 15:47 11/18/25 15:47 11/18/25 16:12 Temperature 98.5 F 98.5 F Temperature Source Oral Pulse Rate 64 69 Pulse Rate [Right] 64 Respiratory Rate 16 16 Blood Pressure 143/78 H 167/88 H Blood Pressure [Right Arm] 143/78 H Blood Pressure Mean [Right Arm] 99 Blood Pressure Source Blood Pressure Position 02 Sat by Pulse Oximetry 97 97 96 Oxygen Delivery Method 11/18/25 16:15 11/18/25 16:20 11/18/25 16:30 Temperature Temperature Source Pulse Rate 74 69 69 Pulse Rate [Right] Respiratory Rate Blood Pressure 146/72 H 133/75 144/79 H Blood Pressure [Right Arm] Blood Pressure Mean [Right Arm] Blood Pressure Source Blood Pressure Position 02 Sat by Pulse Oximetry 96 97 97 Oxygen Delivery Method 11/18/25 16:46 11/18/25 16:50 11/18/25 16:55 Temperature Temperature Source Pulse Rate 70 68 69 Pulse Rate [Right] Respiratory Rate Blood Pressure 158/80 H 145/78 H 138/69 Blood Pressure [Right Arm] Blood Pressure Mean [Right Arm] Blood Pressure Source Blood Pressure Position 02 Sat by Pulse Oximetry 96 98 93 L Oxygen Delivery Method Room Air Room Air Room Air 11/18/25 17:00 11/18/25 17:05 11/18/25 17:10 Temperature Temperature Source Pulse Rate 70 66 67 Pulse Rate [Right] Respiratory Rate Blood Pressure 134/75 137/75 131/71 Blood Pressure [Right Arm] Blood Pressure Mean [Right Arm] Blood Pressure Source Blood Pressure Position 02 Sat by Pulse Oximetry 93 L 94 L 94 L Oxygen Delivery Method Room Air Room Air Room Air 11/18/25 17:15 11/18/25 17:30 11/18/25 17:40 Temperature Temperature Source Pulse Rate 67 65 75 Pulse Rate [Right] Respiratory Rate Blood Pressure 137/71 136/74 138/72 Blood Pressure [Right Arm] Blood Pressure Mean [Right Arm] Blood Pressure Source Blood Pressure Position 02 Sat by Pulse Oximetry 94 L 94 L 93 L Oxygen Delivery Method Room Air 11/18/25 17:53 11/18/25 17:54 11/18/25 18:00 Temperature Temperature Source Pulse Rate 75 66 Pulse Rate [Right] Respiratory Rate Blood Pressure 159/91 H 143/72 H Blood Pressure [Right Arm] Blood Pressure Mean [Right Arm] Blood Pressure Source Blood Pressure Position 02 Sat by Pulse Oximetry 95 96 96 Oxygen Delivery Method Room Air Room Air Room Air 11/18/25 18:18 Temperature 97.5 F L Temperature Source Temporal Artery Scan Pulse Rate 68 Pulse Rate [Right] Respiratory Rate 17 Blood Pressure 137/69 Blood Pressure [Right Arm] Blood Pressure Mean [Right Arm] Blood Pressure Source Automatic Cuff Blood Pressure Position Sitting 02 Sat by Pulse Oximetry Oxygen Delivery Method Room Air Lab Data Lab Results 11/18/25 15:52: WBC 9.6, RBC 4.67, Hgb 14.0, Hct 43.0, MCV 92.1, MCH 30.0, MCHC 32.6, RDW 13.4, Plt Count 337, MPV 8.8, Neut % (Auto) 89.1 H, Lymph % (Auto) 4.0 L, [place] % (Auto) 4.7, Eos % (Auto) 1.5, Baso % (Auto) 0.3, Neut # (Auto) 8.6 H, Lymph # (Auto) 0.4 L, [place] # (Auto) 0.5, Eos # (Auto) 0.1, Baso # (Auto) 0.0, Total Counted 100, Neutrophils % (Manual) 95 H, Lymphocytes % (Manual) 2 L, Monocytes % (Manual) 2, Eosinophils % (Manual) 1, Platelet Estimate Normal, Polychromasia 1+, Poikilocytosis 1+, Anisocytosis 1+, Microcytosis 1+, Macrocytosis 1+, Target Cells 1+, Tear Drop Cells 1+, Ovalocytes 1+, Sodium 140, Potassium 4.3, Chloride 106, Carbon Dioxide 26, Anion Gap 12.3, BUN 15, Creatinine 0.70, Estimated Creat Clear 56, Estimated GFR 82, Est GFR ( Amer) 99, Glucose 114 H, Lactate 0.8, Calcium 9.0, Total Bilirubin 1.0, AST 33, ALT 19, Alkaline Phosphatase 76, Troponin I < 0.01, Total Protein 8.1, Albumin 4.8, Globulin 3.3 H, Albumin/Globulin Ratio 1.5, Lipase 67 11/18/25 17:50: Urine Color Yellow, Urine Appearance Clear, Urine pH 6.5, Ur Specific [place] 1.015, Urine Protein Negative, Urine Glucose (UA) Negative, Urine Ketones Trace, Urine Blood Trace-i, Urine Nitrate Negative, Urine Bilirubin Negative, Urine Urobilinogen 0.2, Ur Leukocyte Esterase Negative 11/18/25 15:52 11/18/25 15:52 Orders (Tests/Meds): ED MEDICATIONS Generic Name Dose Route Start Last Admin Trade Name Freq PRN Reason Stop Dose Admin Doxycycline Hyclate 100 mg 11/18/25 18:05 Doxycycline Hycl 100 Mg Tablet PO 11/18/25 18:06 ONCE ONE Ceftriaxone Sodium 0.5 gm/ 50 mls @ 100 mls/hr 11/18/25 18:04 Sodium Chloride IV 11/18/25 18:33 ONCE ONE Discontinued Medications Generic Name Dose Route Start Last Admin Trade Name Freq PRN Reason Stop Dose Admin Sodium Chloride 500 mls @ 500 mls/hr 11/18/25 15:49 11/18/25 17:49 Sod Chlor 0.9% 1000ml Bag IV 11/18/25 16:48 Infused .Q1H ONE Infusion Iopamidol 75 ml 11/18/25 16:39 11/18/25 16:40 Iopamidol-370 (76%);100ml Bottle IV 11/18/25 16:40 75 ml ONCE ONE Administration Morphine Sulfate 4 mg 11/18/25 15:49 11/18/25 16:33 Morphine 4mg/Ml Syringe IV 11/18/25 15:50 4 mg ONCE ONE Administration Ondansetron HCl 4 mg 11/18/25 15:49 11/18/25 16:33 Ondansetron 4mg/2ml Vial IV 11/18/25 15:50 4 mg ONCE ONE Administration Sodium Chloride 10 ml 11/18/25 16:39 11/18/25 16:39 Sodium Chloride 0.9% 10ml Syr (Rad Only) IV 11/18/25 16:40 10 ml ONCE ONE Administration ORDERS Category Date Time Status CT abdomen pelvis w con Stat Cat Scan 11/18/25 15:48 Completed CBC w/Auto Diff [Complete Blood Count Auto Diff] Stat Lab 11/18/25 15:52 Completed CMP [Comprehensive Metabolic Panel] Stat Lab 11/18/25 15:52 Completed Lactic Acid Stat Lab 11/18/25 15:52 Completed Lipase Stat Lab 11/18/25 15:52 Completed Trop I [Troponin I] Stat Lab 11/18/25 15:52 Completed Troponin I Q3H Lab 11/18/25 19:00 Ordered Troponin I Q3H Lab 11/18/25 22:00 Ordered UA/RFX Microscopic Stat Lab 11/18/25 17:50 Completed Medical Decision Narrative: In summary patient is an 74-year-old female who presents emergency department for evaluation of left lower quadrant abdominal pain. Essentially patient is abdominal pain started at 5:00 this morning, noted multiple episodes of NBNB emesis. Did notice some BRBPR after 1 episode of diarrhea today. No melanotic stools noted. Last EGD and colonoscopy was reportedly in the last 5 years, patient unsure of when she would have had this procedure done. Patient is hemodynamically stable, afebrile, heart rate in the 70s, normotensive blood pressure, upon arrival, afebrile. Physical exam remarkable for significant left lower quadrant tenderness with palpation, no peritoneal signs, no guarding, hypoactive bowel sounds.. Differential diagnosis includes diverticulitis, acute cystitis, bowel obstruction. Initial workup will be conducted with hematologic labs, CT abdomen pelvis with contrast. Initial interventions include 500 cc crystalloid bolus, patient has a significant history of heart failure, morphine, Zofran for pain control and nausea. Initial workup reviewed by hi hematologic labs essentially unremarkable, glucose slightly bated at 114. UA appeared noninfectious. No leukocytosis noted. Troponin was negative, lipase is 67, lactic acid is 0.8. CT of the abdomen pelvis with contrast showed mural thickening involving the anorectal region could be incomplete distention but could not exclude proctitis or inflammatory/neoplastic/ischemic process, also had some mild distal colonic diverticulosis without diverticulitis, stable cholelithiasis. Patient will be treated for proctitis with 500 mg of Rocephin and doxycycline 100 mg p.o. twice daily for 7 days. This was called into her pharmacy.. Upon repeat evaluation patient had acceptable resolution of symptoms, is feeling much better, no nausea, has not had any episodes of emesis while in the ER, abdominal pain is rated at a 0/10 at this time.. Given this patient appropriate for discharge and will be discharged home with a prescription for doxycycline 100 mg twice daily for 7 days. She was given 500 mg of Rocephin while in the ER. I will also call in her prescription for some antiemetics. She should follow-up with GI, I have put in a referral for Dr. Cheatham for her. She was given strict return precautions to the ER. Critical Care Critical Care Time Critical Care Time: No
[2025-11-18 16:01] LABS: Hematocrit 43.0 % (37.0-47.0); Hemoglobin 14.0 g/dL (12.2-16.2); Immature Granulocytes % 0.4 %; Mean Corpuscular HGB Conc 32.6 g/dL (31.8-35.4); Mean Corpuscular Hemoglobin 30.0 pg (27.0-31.2); Mean Corpuscular Volume 92.1 fl (81-99); Nucleated Red Blood Cells % 0 %; Platelet Count 337 K/mm3 (142-424); Red Blood Count 4.67 M/mm3 (4.20-5.40); Red Cell Distribution Width-SD 46.0 fL; White Blood Count 9.6 K/mm3 (4.8-10.8)
[2025-11-18 16:18] LABS: Albumin Level 4.8 g/dl (3.5-5.0); Chloride 106 mmol/L (98-107); Potassium 4.3 mmoL/L (3.5-5.1); Sodium 140 mmol/L (136-145)
[2025-11-18 16:21] LABS: Alanine Aminotransferase 19 U/L (12-78); Albumin/Globulin Ratio 1.5 (1.1-1.8); Alkaline Phosphatase 76 U/L (38-126); Anion Gap 12.3 mEq/L (5-15); Aspartate Amino Transferase 33 U/L (14-36); Bilirubin,Total 1.0 mg/dl (0.2-1.3); Blood Urea Nitrogen 15 mg/dl (7-17); Calcium 9.0 mg/dl (8.4-10.2); Carbon Dioxide 26 mmol/L (22.0-30.0); Creatinine Clearance Estimated 56 mL/min (50-200); Creatinine,Serum 0.70 mg/dl (0.52-1.04); Estimated Glomerular Filt Rate 82 ml/min (>60); GFR (African American) 99 ML/MIN (>60); Globulin 3.3 g/dL (1.3-3.2); Glucose 114 mg/dl (74-100); Lipase 67 U/L (23-300); Total Protein,Serum 8.1 g/dl (6.3-8.2)
[2025-11-18] MEDS: 0.9 % SODIUM CHLORIDE 1000ML 500 ML IV (16:32)
[2025-11-18 16:33] LABS: Total Cells Counted 100
[2025-11-18] MEDS: MORPHINE 4MG/ML SYRINGE 4 MG IV (16:33)
[2025-11-18] MEDS: ONDANSETRON 4MG/2ML VIAL 4 MG IV ×2 (16:33→18:47)
[2025-11-18 16:34] LABS: Anisocytosis 1+; Macrocytosis 1+; Microcytosis 1+; Ovalocytes 1+; Poikilocytosis 1+; Polychromasia 1+; Target Cells 1+; Tear Drop Cells 1+
[2025-11-18 16:35] LABS: Troponin I < 0.01 ng/ml (0.00-0.034)
[2025-11-18] MEDS: SODIUM CHLORIDE 0.9% 10ML SYR (RAD ONLY) 10 ML IV (16:39)
[2025-11-18] MEDS: IOPAMIDOL-370 (76%);100ML BOTTLE 75 ML IV (16:40)
[2025-11-18 18:00] LABS: Bilirubin,Urine Negative (Negative); Color,Urine YELLOW (Yellow); Glucose,Urine (UA) Negative (Negative); Ketones,Urine TRACE (Negative); Leukocyte Esterase,Urine NEGATIVE (Negative); PH,Urine 6.5 (5.0-8.5); Protein,Urine NEGATIVE (Negative); Specific Gravity, Urine 1.015 (1.005-1.030); Urobilinogen,Urine 0.2 EU/dl (0.2)
[2025-11-18] MEDS: DOXYCYCLINE HYCL 100 MG TABLET PO (18:45)
[2025-11-18] MEDS: ONDANSETRON 4MG ODT 8 MG SL (19:32)
== END 2025-11-18 19:44 | disposition home or self-care (01) ==
PROVIDERS: Nurse Practitioner Acute Care; Emergency Provider Student in an Organized Health Care Education/Training Program; PCP Internal Medicine Adolescent Medicine
DX: K62.89 Other specified diseases of anus and rectum (principal); R10.32 Left lower quadrant pain; R11.2 Nausea with vomiting, unspecified; R19.7 Diarrhea, unspecified
CPT/HCPCS: 74177; 80053; 81003; 83605; 83690; 84484; 85007; 85025; 96361; 96365; 96375; 96376; 99285; J0696; J2270; J2405; J7030; Q0162; Q9967

== ENCOUNTER 2025-11-22 08:01 | Emergency (ER) | payer MEDICARE, SELFPAY ==
--- OUTSIDE RECORDS SUMMARY | 2025-10-20 12:04 | XMS_ITS | Encounter Summary ---
Author Organization [facility] Address [address] [place] [address] Care Team Providers Care Drywall Foreman Name Role Phone Michael Baez MD Primary Care Provider [phone] Acacia Scott CHARGE ENTRY CLERK Unavailable [phone] DelmaAnisajani Unavailable Reason for Referral * Imaging (Routine) - Denied Specialty Diagnoses / Procedures Referred By Bryannaac t Referred To Contact Radiology Diagnoses Cerebral aneurysm Procedures MR Angio Head w IV Contrast Prachi Hodgson PA [address] [address] Phone: tel: fax: Referral ID Status Reason Start Date Expiration Date Visits Re quested Visits Authorized [id number] Denied 09/10/2025 03/12/2027 1 0 Reason for Visit * Imaging (Routine) - Denied Specialty Diagnoses / Procedures Referred By Terrence prasad Referred To Contact Radiology Diagnoses Cerebral aneurysm Procedures MR Angio Head w IV Contrast Prachi Hodgson PA [address] [facility] [address] [place] [address] Phone: tel: fax: Referral ID Status Reason Start Date Expiration Date Visits Re quested Visits Authorized [id number] Denied 09/10/2025 03/12/2027 1 0 Encounter Details Date Type Department Care Team (Latest Contact Info) Description 10/20/2025 12:04 PM EST - 10/20/2025 11:59 PM EST Hospital Encounter PAV A Radiology [address] [place] [address] Cerebral aneurysm Discharge Disposition: Home or Self [...] any time in the past 12 m [facility], were you homeless or living in a halfway (including now)? 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-EASEMENT WORKER) to 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 0 05/03/2025 CAGE Questionnaire Score 0 025 Utilities Answer Date Recorded In the past 12 months has th e [employer], gas, oil, or water company threatened to [...] Visit [place] [facility] [address] [place] [address] Kylah Alejandra, EMMY [address] [place] [address] documented as of this encounter [...] coil performed here 2024, Lashonda/Deepak TECHNIQUE: 3-D jxgu-wk-knmkij MR angiography was performed through the major [...] Overall intrinsic flow related enhancement suggesting patency.. [place] and Major Peripheral Branches: Sequela [...] coil performed here 2024, Lashonda/Deepak TECHNIQUE: 3-D vioi-pe-yqpezn MR angiography was performed through the majorintracranial [...] degradation. Overall intrinsic flowrelated enhancement suggesting patency.. [place] of [place] and Major Peripheral Branches: Sequela [...] documented as of this encounter Care Teams Drywall Foreman Relationship Specialty Start Date End Date Michael Baez MD [facility] [address] PCP - General 04/08/21 Acacia Scott APRN [address] [place] [address] Nurse Practitioner Cardiology 03/27/22 Virgilio Nguyễn [id number] Referring Physician 10/07/24 documented as of this encounter
--- OUTSIDE RECORDS SUMMARY | 2025-10-20 16:00 | XMS_ITS | Encounter Summary ---
Author Organization Healthcare Address [address] [place] [address] Care Team Providers Care Catheter Builder Name Role Phone Michael Baez MD Primary Care Provider [phone] Acacia Scott SUPERVISOR [employer]OTOSTAT Unavailable [phone] DelmaAnisajani Unavailable Reason for Visit * Consultation (Routine) - Closed Specialty Diagnoses / Procedures Referred By Conteffie t Referred To Contact Neurosurgery Diagnoses Cerebral aneurysm Anders Sotelo MD [address] [address] Phone: tel: fax: Referral ID Status Reason Start Date Expiration Date V isits Requested Visits Authorized [id number] Closed Specialty Services Required 09/10/2025 03/12/2027 1 1 Encounter Details Date Type Department Care Team (Late st Contact Info) Description 10/20/2025 4:00 PM EST Office Visit [place] [facility] [address], [address] [place] [address] David Gallego MD [id number] [place] [address] Cerebral aneurysm (Primary Dx) Social [...] in the past 12 m [facility], were you homeless or living in a [...] drink first t pippa in the morning (EYE-CONSTRUCTION TECH) to steady your nerves or to get [...] 3:44 PM EST documented in this encounter Functional Status * BP Answer Date of Assessment Author 122/67 10/20/2025 3:44 PM EST Zora Rodriguez * Pulse Answer Date of Assessment Author 60 10/20/2025 3:44 PM EST Zora Rodriguez * SpO2 Answer Date of Assessment Author 97 10/20/2025 3:44 PM EST Zora Rodriguez * Height Answer Date of Assessment Author 64 10/20/2025 3:44 PM EST Zora Rodriguez * Weight Answer Date of Assessment Author 2592 10/20/2025 3:44 PM EST Zora Rodriguez * BMI (Calculated) Answer Date of Assessment Author 27.9 10/20/2025 3:44 PM EST Zora Rodriguez * Percent Excess Weight Loss Answer Date of Assessment Author 0 10/20/2025 3:44 PM EST Zora Rodriguez * Total Weight Change Percent Answer Date of Assessment Author 22210/20/2025 3:44 PM EST Rodriguez, Zora Rula * Weight Change Since Preop Answer Date of Assessment Author 73.47 10/20/2025 3:44 PM EST Rodriguez, Zora Rula * Initial Excess Weight Answer Date of Assessment Author -54.43 10/20/2025 3:44 PM EST Rodriguez, Zora Rula * IBW in lbs (Bariatric) Answer Date of Assessment Author 120 10/20/2025 3:44 PM EST Rodriguez, Zora Rula * Weight Change Since Last Visit Answer Date of Assessment Author 73.47 10/20/2025 3:44 PM EST Rodriguez, Zora Rula * IBW in kg (Bariatric) Answer Date of Assessment Author 54.43 10/20/2025 3:44 PM EST Rodriguez, Zora Rula * Percent of IBW Answer Date of Assessment Author 4,762.08 10/20/2025 3:44 PM EST Rodriguez, Zora Rula * EBW (kg) Answer Date of Assessment Author 2,590.46 10/20/2025 3:44 PM EST Rodriguez, Zora Rula * EBW (lbs) Answer Date of Assessment Author 2,584.5 10/20/2025 3:44 PM EST Rodriguez, Zora Rula * Weight Change 24 hrs Answer Date of Assessment Author -2.717 10/20/2025 3:44 PM EST Rodriguez, Zora Rula * BSA (Calculated - sq m) Answer Date of Assessment Author 1.82 10/20/2025 3:44 PM EST Rodriguez, Zora Rula * BMI (Calculated) Answer Date of Assessment Author 27.79 10/20/2025 3:44 PM EST Rodriguez, Zora Rula * IBW/kg (Calculated) Male Answer Date of Assessment Author 59.2 10/20/2025 3:44 PM EST Rodriguez, Zora Rula * IBW/kg (Calculated) Female Answer Date of Assessment Author 54.7 10/20/2025 3:44 PM EST Rodriguez, Zora Rula * IBW/kg (Calculated) Answer Date of Assessment Author 54.7 10/20/2025 3:44 PM EST Rodriugez, Zora Rula * Weight in (lb) to have BMI = 25 Answer Date of Assessment Author 145.3 10/20/2025 3:44 PM EST Rodriguez, Zora Rula * BMI (Calculated) Answer Date of Assessment Author 27.9 10/20/2025 3:44 PM EST Rodrgiuez, Zora Rula * Percent Excess Weight Loss Answer Date of Assessment Author 0 10/20/2025 3:44 PM EST Rodriguez, Zora Rula * Weight Change Since Preop Answer Date of Assessment Author 73.48 10/20/2025 3:44 PM EST Rodriguez, Zora Rula * Initial Excess Weight Answer Date of Assessment Author -54.43 10/20/2025 3:44 PM EST Rodriguez, Zora Rula * IBW in kg (Bariatric) Answer Date of Assessment Author 54.43 10/20/2025 3:44 PM EST Rodriguez, Zora Rula * IBW in lb (Bariatric) Answer Date of Assessment Author 120 10/20/2025 3:44 PM EST Rodriguez, Zora Rula * Weight Change Since Last Visit Answer Date of Assessment Author -2.27 10/20/2025 3:44 PM EST Rodriguez, Zora Rula * Percent of IBW Answer Date of Assessment Author 135 10/20/2025 3:44 PM EST Rodriguez, Zora Rula * EBW (kg) Answer Date of Assessment Author 19.04 10/20/2025 3:44 PM EST Rodirguez, Zora Rula * EBW (lb) Answer Date of Assessment Author 42 10/20/2025 3:44 PM EST Rodriguez, Zora Rula * Difference in Weight Since Last Visit Answer Date of Assessment Author -2.27 10/20/2025 3:44 PM EST Rodriguez, Zora Rula * IBW/kg (Calculated) Answer Date of Assessment Author 54.7 10/20/2025 3:44 PM EST Rodriguez, Zora Rula * Adult Low Range Vt 6mL/kg Answer Date of Assessment Author 328.2 10/20/2025 3:44 PM EST Rodriguez, Zora Rula * Adult Moderate Range Vt 8mL/kg Answer Date of Assessment Author 437.6 10/20/2025 3:44 PM EST Rodriguez, Zora Rula * Adult High Range Vt 10mL/kg Answer Date of Assessment Author 547 10/20/2025 3:44 PM EST Rodriguez, Zora Rula * Pain Score Answer Date of Assessment Author 2 10/20/2025 3:45 PM EST Rodriguez, Zora Rula * Pain Screening/Additional Assessments Question Answer Date of Assessment Author Pain Screening/Assessments Pain Screening 10/20/2025 3 :45 PM EST Rodriguez, Zora Rula * Pain Screening Answer Date of Assessment Author 0-10 10/20/2025 3:45 PM EST Rodriguez, Zora Rula * BP Answer Date of Assessment Author 122/67 10/20/2025 3:44 PM EST Rodriguez, Zora Rula * Pulse Answer Date of Assessment Author 60 10/20/2025 3:44 PM EST Rodriguez, Zora Rula * SpO2 Answer Date of Assessment Author 97 10/20/2025 3:44 PM EST Rodriguez, Zora Rula * Height Answer Date of Assessment Author 64 10/20/2025 3:44 PM EST Rodriguez, Zora Rula * Weight Answer Date of Assessment Author 2592 10/20/2025 3:44 PM EST Rodriguez, Zora Rula * BSA (Calculated - sq m) Answer Date of Assessment Author 1.82 10/20/2025 3:44 PM EST Rodriguez, Zora Rula * BMI (Calculated) Answer Date of Assessment Author 27.79 10/20/2025 3:44 PM EST Rodriguez, Zora Rula * Weight in (lb) to have BMI = 25 Answer Date of Assessment Author 145.3 10/20/2025 3:44 PM EST Rodriguez, Zora Rula * Pain Score Answer Date of Assessment Author 2 10/20/2025 3:45 PM EST Rodriguez Zora Rula documented as of this encounter Mental Status * BP Answer Entry Date Author 122/67 10/20/2025 3:44 PM EST Rodriguez, Zora Rula * Pulse Answer Entry Date Author 60 10/20/2025 3:44 PM EST Rodriguez, Zora Rula * SpO2 Answer Entry Date Author 97 10/20/2025 3:44 PM EST Rodriguez, Zora Rula * Height Answer Entry Date Author 64 10/20/2025 3:44 PM EST Rodriguez, Zora Rula * Weight Answer Entry Date Author 2592 10/20/2025 3:44 PM EST Rodriguez, Zora Rula * BMI (Calculated) Answer Entry Date Author 27.9 10/20/2025 3:44 PM EST Rodriguez, Zora Rula * Percent Excess Weight Loss Answer Entry Date Author 0 10/20/2025 3:44 PM EST Rodriguez, Zora Rula * Total Weight Change Percent Answer Entry Date Author 22210/20/2025 3:44 PM EST Rodriguez, Zora Rula * Weight Change Since Preop Answer Entry Date Author 73.47 10/20/2025 3:44 PM EST Rodriguez, Zora Rula * Initial Excess Weight Answer Entry Date Author -54.43 10/20/2025 3:44 PM EST Rodriguez, Zora Rula * IBW in lbs (Bariatric) Answer Entry Date Author 120 10/20/2025 3:44 PM EST Rodriguez, Zora Rula * Weight Change Since Last Visit Answer Entry Date Author 73.47 10/20/2025 3:44 PM EST Rodriguez, Zora Rula * IBW in kg (Bariatric) Answer Entry Date Author 54.43 10/20/2025 3:44 PM EST Rodriguez, Zora Rula * Percent of IBW Answer Entry Date Author 4,762.08 10/20/2025 3:44 PM EST Rodriguez, Zora Rula * EBW (kg) Answer Entry Date Author 2,590.46 10/20/2025 3:44 PM EST Rodriguez, Zora Rula * EBW (lbs) Answer Entry Date Author 2,584.5 10/20/2025 3:44 PM EST Rodriguez, Zora Rula * Weight Change 24 hrs Answer Entry Date Author -2.717 10/20/2025 3:44 PM EST Rodriguez, Zora Rula * BSA (Calculated - sq m) Answer Entry Date Author 1.82 10/20/2025 3:44 PM EST Rodriguez, Zora Rula * BMI (Calculated) Answer Entry Date Author 27.79 10/20/2025 3:44 PM EST Rodriguez, Zora Rula * IBW/kg (Calculated) Male Answer Entry Date Author 59.2 10/20/2025 3:44 PM EST Rodriguez, Zora Rula * IBW/kg (Calculated) Female Answer Entry Date Author 54.7 10/20/2025 3:44 PM EST Rodriguez, Zora Rula * IBW/kg (Calculated) Answer Entry Date Author 54.7 10/20/2025 3:44 PM EST Rodriguez, Zora Rula * Restart Pain Assessment Timer Answer Entry Date Author Yes 10/20/2025 3:45 PM EST Rodriguez, Zora Rula * Weight in (lb) to have BMI = 25 Answer Entry Date Author 145.3 10/20/2025 3:44 PM EST Rodriguez, Zora Rula * BMI (Calculated) Answer Entry Date Author 27.9 10/20/2025 3:44 PM EST Rodriguez, Zora Rula * Percent Excess Weight Loss Answer Entry Date Author 0 10/20/2025 3:44 PM EST Rodriguez, Zora Rula * Weight Change Since Preop Answer Entry Date Author 73.48 10/20/2025 3:44 PM EST Rodriguez, Zora Rula * Initial Excess Weight Answer Entry Date Author -54.43 10/20/2025 3:44 PM EST Rodriguez, Zora Rula * IBW in kg (Bariatric) Answer Entry Date Author 54.43 10/20/2025 3:44 PM EST Rodriguez, Zora Rula * IBW in lb (Bariatric) Answer Entry Date Author 120 10/20/2025 3:44 PM EST Rodriguez, Zora Rula * Weight Change Since Last Visit Answer Entry Date Author -2.27 10/20/2025 3:44 PM EST Rodrigeuz, Zora Rula * Percent of IBW Answer Entry Date Author 135 10/20/2025 3:44 PM EST Rodriguez, Zora Rula * EBW (kg) Answer Entry Date Author 19.04 10/20/2025 3:44 PM EST Rodriguez, Zora Rula * EBW (lb) Answer Entry Date Author 42 10/20/2025 3:44 PM EST Rodriguez, Zora Rula * Difference in Weight Since Last Visit Answer Entry Date Author -2.27 10/20/2025 3:44 PM EST Rodriguez, Zora Rula * IBW/kg (Calculated) Answer Entry Date Author 54.7 10/20/2025 3:44 PM EST Rodriguez, Zora Rula * Adult Low Range Vt 6mL/kg Answer Entry Date Author 328.2 10/20/2025 3:44 PM EST Rodriguez, Zora Rula * Adult Moderate Range Vt 8mL/kg Answer Entry Date Author 437.6 10/20/2025 3:44 PM EST Rodriguez, Zora Rula * Adult High Range Vt 10mL/kg Answer Entry Date Author 547 10/20/2025 3:44 PM EST Rodriguez, Zora Rula * Pain Score Answer Entry Date Author 2 10/20/2025 3:45 PM EST Rodriguez, Zora Rula * Pain Screening Answer Entry Date Author 0-10 10/20/2025 3:45 PM EST Rodriguez, Zora Rula documented in this encounter Miscellaneous Notes * [...] CN 2-12 intact, Motor: RUE: 5/5 RLE 03/30 LUE / LLE 03/30 IMAGING: I personally reviewed and independently interpreted [...] concerns please feel free to contact us: [facility] Department of Neurosurgery [address], [place] [address] [place] [id number] ; I reviewed this patient's history, exam, [...] tablet Take 1 tablet by mouth daily. Rxbttgo-Yqyeabobvge-Unritzhfgm (Breztri Aerosphere) 160-9-4.8 MCG/ACT aerosol Inhale 2 [...] Visit [place] [facility] [address] [place] [address] Kylah Alejandra PA [address] [place] [address] documented as of this encounter Visit Diagnoses Diagnosis Cerebral aneurysm- Primary Cerebral aneurysm, nonruptured documented in this encounter Additional Health Concerns Assessment Noted Time A fall risk assessment has been complete d for the patient 08/07/2025 2:23 PM EDT A Body Mass Index follow-up plan has been documented for the patient 10/20/2025 4:20 PM EST documented as of this encounter Care Teams Catheter Builder Relationship Specialty Start Date End Date Michael Baez MD [facility] [address] PCP - General 04/08/21 Acacia Scott APRN [address] [place] [phone] Nurse Practitioner Cardiology 03/27/22 Virgilio Nguyễn [address] Referring Physician 10/07/24 documented as of this encounter
[2025-11-22 08:10] VITALS: BP 153/108; PULSE 82; RESP 24; TEMP 37; O2SAT 95; BMI 27.6
--- NOTE | 2025-11-22 08:15 | CT_ITS ---
PROCEDURE INFORMATION: Exam: CT Head Without Contrast Exam date and time: 11/22/2025 8:20 AM Age: 74 years old Clinical indication: Stroke-like symptoms; Altered mental status/memory loss; Additional info: Aneurysm S/P coil, left-sided paresis, anticoaged TECHNIQUE: Imaging protocol: Computed tomography of the head without contrast. Radiation optimization: All CT scans at this facility use at least one of these dose optimization techniques: automated exposure control; mA and/or kV adjustment per patient size (includes targeted exams where dose is matched to clinical indication); or iterative reconstruction. Other technique: STROKE PROTOCOL was implemented. COMPARISON: CT HEAD/BRAIN WO CON 05/01/2025 4:20 PM FINDINGS: Brain: Intracranial vascular calcifications are present. Limited evaluation of brain parenchyma secondary to extensive beam hardening artifact from anterior aneurysm coils. No gross hemorrhage. No obvious mass effect or midline shift. Bilateral basal ganglia mineralization. Cerebral ventricles: No ventriculomegaly. Paranasal sinuses: Visualized sinuses are unremarkable. No fluid levels. Mastoid air cells: Visualized mastoid air cells are well aerated. Orbital cavities: There is asymmetry of the lenses consistent with left intraocular lens prosthesis. Bones: Unremarkable. No acute fracture. Soft tissues: Unremarkable. Vasculature: Large cluster of aneurysm coils noted anteriorly at the midline in region of previous aneurysm. IMPRESSION: Large cluster of aneurysm coils noted anteriorly at the midline in region of previous aneurysm. Limited evaluation of brain parenchyma at the level of the aneurysm coils secondary to extensive beam hardening artifact, no gross evidence for acute intracranial process. ASSESSMENT: ASPECTS ([place] Stroke Program Early CT Score) is 10.
--- NOTE | 2025-11-22 08:15 | XR_ITS ---
PROCEDURE INFORMATION: Exam: XR Left Femur Exam date and time: 11/22/2025 8:39 AM Age: 74 years old Clinical indication: Injury or trauma; Fall; Blunt trauma; Thigh or upper leg; Left; Additional info: Fall, stroke like symptoms, pain TECHNIQUE: Imaging protocol: Radiologic exam of the left femur. Views: 2 views. COMPARISON: CT ANGIO ABD/PEL - TRAUMA 11/22/2025 8:32 AM FINDINGS: Bones/joints: Postsurgical changes of total knee replacement on the left. Soft tissues: Unremarkable. IMPRESSION: No acute fracture. MRI is recommended if continued hip pain is present. Postsurgical changes of total knee replacement on the left.
--- NOTE | 2025-11-22 08:15 | CT_ITS ---
PROCEDURE INFORMATION: Exam: CTA Head With Contrast, Arteriography Exam date and time: 11/22/2025 8:29 AM Age: 74 years old Clinical indication: Stroke-like symptoms; Altered mental status/memory loss; Additional info: Fall on anticoag TECHNIQUE: Imaging protocol: Computed tomographic angiography of the head with contrast. Exam focused on the arteries. 3D rendering (Not supervised by radiologist): MIP and/or 3D reconstructed images were created by the technologist. Radiation optimization: All CT scans at this facility use at least one of these dose optimization techniques: automated exposure control; mA and/or kV adjustment per patient size (includes targeted exams where dose is matched to clinical indication); or iterative reconstruction. Contrast material: ISOVUE; Contrast volume: 80 ml; Contrast route: INTRAVENOUS (IV); COMPARISON: CT HEAD/BRAIN WO CON 11/22/2025 8:20 AM FINDINGS: ANTERIOR CIRCULATION: Right internal carotid artery: Calcified atherosclerosis involving the cavernous portion of the right distal ICA with less than 50% luminal narrowing. Right middle cerebral artery: No occlusion or significant stenosis. No aneurysm. Right anterior cerebral artery: Proximal and distal right anterior cerebral artery is patent, remainder can not be evaluated secondary to beam hardening artifact. Left internal carotid artery: Calcified atherosclerosis involving the cavernous portion of the left distal ICA with less than 50% luminal narrowing. Left middle cerebral artery: No occlusion or significant stenosis. No aneurysm. Left anterior cerebral artery: Proximal and distal left anterior cerebral artery is patent, remainder can not be evaluated secondary to beam hardening artifact. POSTERIOR CIRCULATION: Right vertebral artery: No occlusion or significant stenosis. No aneurysm. Left vertebral artery: No occlusion or significant stenosis. No aneurysm. Basilar artery: No occlusion or significant stenosis. No aneurysm. Right posterior cerebral artery: No occlusion or significant stenosis. No aneurysm. Left posterior cerebral artery: No occlusion or significant stenosis. No aneurysm. Brain: Large collection of aneurysm coils along the midline in region of prior aneurysm. Beam hardening artifact limits evaluation of adjacent structures. Cerebral ventricles: No ventriculomegaly. Bones/joints: Unremarkable. No acute fracture. Soft tissues: Unremarkable. IMPRESSION: 1. Large collection of aneurysm coils at the midline limits evaluation of anterior cerebral arteries, proximal and distal anterior cerebral arteries appear patent however midportion cannot be evaluated due to beam hardening artifact. 2. Otherwise no large vessel stenosis or occlusion. No residual aneurysm grossly identified.
--- NOTE | 2025-11-22 08:16 | CT_ITS ---
PROCEDURE INFORMATION: Exam: CT Cervical Spine Without Contrast Exam date and time: 11/22/2025 8:23 AM Age: 74 years old Clinical indication: Injury or trauma; Additional info: Fall on anticoag TECHNIQUE: Imaging protocol: Computed tomography of the cervical spine without contrast. Radiation optimization: All CT scans at this facility use at least one of these dose optimization techniques: automated exposure control; mA and/or kV adjustment per patient size (includes targeted exams where dose is matched to clinical indication); or iterative reconstruction. COMPARISON: CT HEAD/BRAIN WO CON 11/22/2025 8:20 AM FINDINGS: Bones/joints: Mild anterolisthesis of C4 over C5. C2-C3: No significant disc bulge or herniation. No severe spinal canal stenosis. No significant neural foraminal narrowing. C3-C4: No significant disc bulge or herniation. No severe spinal canal stenosis. No significant neural foraminal narrowing. C4-C5: Severe left neural foraminal narrowing is noted C4-C5. C5-C6: Mild bilateral neural foraminal narrowing is seen at C5-C6. C6-C7: Moderate bilateral neural foraminal narrowing at C6-C7 . C7-T1: No significant disc bulge or herniation. No severe spinal canal stenosis. No significant neural foraminal narrowing. Thyroid: Questionable thyroid nodule on the right measuring 6 mm. Lungs: Lung apices are normal. Soft tissues: Unremarkable. IMPRESSION: 1. No acute fracture. 2. Mild anterolisthesis of C4 over C5. 3. Severe left neural foraminal narrowing noted C4-C5. 4. Questionable thyroid nodule on the right measuring 6 mm. COMMENTS: Consistent with the [employer]'s Incidental Findings Committee white paper (J Am Sita Radiol 2015): In patients aged 35 years and older with an incidental thyroid nodule equal to or greater than 1.[address], MRI or extrathyroidal US, further evaluation with dedicated thyroid US is recommended for patients with normal life expectancy and without comorbidities. For smaller nodules without suspicious features, no further evaluation or follow up is recommended.
--- NOTE | 2025-11-22 08:16 | CT_ITS ---
PROCEDURE INFORMATION: Exam: CTA Chest With Contrast Exam date and time: 11/22/2025 8:32 AM Age: 74 years old Clinical indication: Injury or trauma; Additional info: Fall on anticoag, L rib pain TECHNIQUE: Imaging protocol: Computed tomographic angiography of the chest with contrast. Exam focused on the arteries. 3D rendering (Not supervised by radiologist): MIP and/or 3D reconstructed images were created by the technologist. Radiation optimization: All CT scans at this facility use at least one of these dose optimization techniques: automated exposure control; mA and/or kV adjustment per patient size (includes targeted exams where dose is matched to clinical indication); or iterative reconstruction. Contrast material: ISOVUE; Contrast volume: 80 ml; Contrast route: INTRAVENOUS (IV); COMPARISON: CT ANGIO CHEST 10/26/2025 1:49 PM FINDINGS: Pulmonary arteries: The main pulmonary artery at the level of the right pulmonary artery measures 2.6 cm. No evidence of acute pulmonary embolism upto the subsegmental level. Aorta: The ascending aorta is aneurysmal measuring 3.9 cm. Mild atherosclerotic calcifications affect the aorta and its branches. Lungs: Patchy opacities in the left upper lobe likely represent atelectasis or infection. Pleural spaces: Unremarkable. No pneumothorax. No pleural effusion. Heart: Unremarkable. No cardiomegaly. No pericardial effusion. Coronary arteries: Coronary artery calcifications are noted. Lymph nodes: Unremarkable. No enlarged lymph nodes. Bones/joints: Moderate wedge compression deformity involving the T7 vertebra is age indeterminate. Soft tissues: Unremarkable. IMPRESSION: 1. No evidence of acute pulmonary embolism upto the subsegmental level. 2. The ascending aorta is aneurysmal measuring 3.9 cm, stable. 3. Patchy opacities in the left upper lobe likely represent atelectasis or infection. 4. Moderate wedge compression deformity involving the T7 vertebra is age indeterminate.
--- NOTE | 2025-11-22 08:16 | CT_ITS ---
PROCEDURE INFORMATION: Exam: CT Pelvis Without Contrast, Skeleton Exam date and time: 11/22/2025 8:25 AM Age: 74 years old Clinical indication: Injury or trauma; Additional info: Fall on L hip, pain TECHNIQUE: Imaging protocol: Computed tomography of the pelvis without contrast. Exam focused on the skeleton. Radiation optimization: All CT scans at this facility use at least one of these dose optimization techniques: automated exposure control; mA and/or kV adjustment per patient size (includes targeted exams where dose is matched to clinical indication); or iterative reconstruction. COMPARISON: CT ABDOMEN PELVIS W CON 11/18/2025 4:37 PM FINDINGS: Bones/joints: Unremarkable. No acute fracture. No dislocation. Soft tissues: Unremarkable. IMPRESSION: No acute findings. MRI is recommended if continued hip pain is present.
--- NOTE | 2025-11-22 08:16 | CT_ITS ---
PROCEDURE INFORMATION: Exam: CTA Abdomen and Pelvis With Contrast Exam date and time: 11/22/2025 8:32 AM Age: 74 years old Clinical indication: Injury or trauma; Additional info: Fall on anticoag L side TECHNIQUE: Imaging protocol: Computed tomographic angiography of the abdomen and pelvis with contrast. Exam focused on the arteries. 3D rendering (Not supervised by radiologist): MIP and/or 3D reconstructed images were created by the technologist. Radiation optimization: All CT scans at this facility use at least one of these dose optimization techniques: automated exposure control; mA and/or kV adjustment per patient size (includes targeted exams where dose is matched to clinical indication); or iterative reconstruction. Contrast material: ISOVUE; Contrast volume: 80 ml; Contrast route: INTRAVENOUS (IV); COMPARISON: CT ANGIO ABDOMEN PELVIS 10/26/2025 1:49 PM FINDINGS: Aorta: Mild atherosclerotic calcifications affect the aorta and its branches. Celiac and mesenteric arteries: No occlusion or significant stenosis. Renal arteries: No occlusion or significant stenosis. Right iliac arteries: No occlusion or significant stenosis. Left iliac arteries: No occlusion or significant stenosis. Liver: No mass. Gallbladder and biliary ducts: A calcified gallstone is seen in the gallbladder. Pancreas: Unremarkable. No mass. No ductal dilation. Spleen: Unremarkable. No splenomegaly. Adrenal glands: Unremarkable. No mass. Kidneys and ureters: Unremarkable. No solid mass. No hydronephrosis. Stomach and bowel: Mild wall thickening involving the anorectal region may represent proctitis or neoplasm. Moderate diverticulosis is seen involving the sigmoid colon. Appendix: No evidence of appendicitis. Intraperitoneal space: No evidence of free air in the abdomen. Lymph nodes: Unremarkable. No enlarged lymph nodes. Urinary bladder: Unremarkable. No mass. Reproductive: Unremarkable as visualized. Bones/joints: Mild anterolisthesis of L4 over L5. Mild anterolisthesis of L3 over L4. Kyphoplasty changes at L2 vertebra. Soft tissues: Unremarkable. IMPRESSION: 1. No acute findings. 2. Mild wall thickening involving the anorectal region may represent proctitis or neoplasm. Moderate diverticulosis is seen involving the sigmoid colon. 3. Cholelithiasis without evidence of cholecystitis.
--- NOTE | 2025-11-22 08:18 | HMH.EDGENADL ---
Discharge Plan Disposition Patient Disposition: Xfer Short-Term Hosp Prescriptions Prescriptions: No Action cetirizine 10 mg tablet 10 mg PO gabapentin 300 mg capsule 300 mg PO TID sacubitril-valsartan [Entresto] 24-26 mg tablet 1 tab PO BID Qty: 60 11RF budesonide [Pulmicort] 0.5 mg/2 mL suspension for nebulization 0.5 mg inhalation BID 90 Days Qty: 360 2RF fluticasone propionate 50 mcg/actuation spray,suspension See Rx Instructions .ROUTE .COMPLEX Qty: 16 0RF Dose Instruction: USE 2 SPRAYS IN EACH NOSTRIL ONCE A DAY Rx Instructions: USE 2 SPRAYS IN EACH NOSTRIL ONCE A DAY montelukast 10 mg tablet 10 mg PO DAILY 90 Days Qty: 90 3RF ipratropium-albuterol 0.5 mg-3 mg(2.5 mg base)/3 mL solution for nebulization 3 ml inhalation Q8H 90 Days Qty: 540 3RF clopidogrel [Plavix] 75 mg tablet 75 mg PO DAILY Qty: 30 5RF fluticasone propion-salmeterol [Advair Diskus] 500-50 mcg/dose blister with device 1 inh inhalation BID Qty: 180 2RF Combivent Respimat 20-100 mcg/actuation mist See Rx Instructions .ROUTE .COMPLEX Qty: 4 3RF Dose Instruction: inhale 1 PUFF BY MOUTH EVERY 6 HOURS NEEDED FOR shortness of breath OR wheezing Rx Instructions: inhale 1 PUFF BY MOUTH EVERY 6 HOURS NEEDED FOR shortness of breath OR wheezing Kokitri Aerosphere 160-9-4.8 mcg/actuation HFA aerosol inhaler 2 puff PO BID Qty: 10.7 2RF trazodone 50 mg tablet 50 mg PO HS bisoprolol fumarate 5 mg tablet 5 mg PO DAILY famotidine 20 mg tablet 20 mg PO BID temazepam 15 mg capsule 15 mg PO HS albuterol sulfate 90 mcg/actuation HFA aerosol inhaler 2 inh INHALATION Q4HP PRN (Reason: Shortness of breath) escitalopram oxalate 20 mg tablet 20 mg PO DAILY Eliquis 5 mg tablet 5 mg PO BID Gemtesa 75 mg tablet 75 mg PO DAILY Fasenra Pen 30 mg/mL auto-injector 30 mg SQ Q56D Repatha SureClick 140 mg/mL pen injector 140 mg SQ Q14D ondansetron 4 mg tablet,disintegrating 4 mg PO Q8H PRN (Reason: nausea and vomiting) Qty: 10 0RF doxycycline hyclate 100 mg capsule 100 mg PO BID Qty: 20 0RF pantoprazole [Protonix] 40 mg tablet,delayed release (DR/EC) 40 mg PO DAILY Qty: 30 0RF Rx Instructions: Take on empty stomach. Referrals Follow up/Referrals: Michael Baez MD [Primary Care Provider, Internal Medicine] - See instructions Clinical Impressions Clinical Impression: Acute CVA (cerebrovascular accident), Closed rib fracture, Contusion of lung, Thyroid nodule, Abnormality of colon, Acute hypokalemia Print Language Print Language: Sierra Leonean Discharge ED Provider: Pipe Mari General Adult HPI General Chief complaint: Neuro Symptoms/Deficit Stated complaint: AO Fall from bed 11/22 Pain in ribs and hip Time Seen by Provider: 11/22/25 08:01 History of Present Illness HPI narrative: Patient is a 74-year-old female past medical history of atrial fibrillation on anticoagulation, intracranial aneurysm status post coiling earlier this year, COPD, hypertension, hyperlipidemia, previous smoker who presents to the emergency department for evaluation of symptoms related to a fall. Patient reportedly rolled to sit on the side the bed at 3 AM but had no control over her body and fell off of the bed onto her left side striking her hip and shoulder. She is complaining of left rib pain and left hip pain. She is unable to move her arm and leg on the left. No vision changes. No central chest pain reported. No other acute complaints at this time. Pain in the hip is moderate to severe in intensity. Please note that above description of symptoms, in this electronic medical record under categorization of recalled from ER triage doctor by RN are reflective of an initial nursing assessment, however, is not reflective of my full history and physical exam that was personally taken and clarified. Consequentially, this preceding description of symptoms, which may include the patient's categorized chief complaint in the EMR, do not reflect my personal clinical impression, and the ultimate description of history of present illness and patient stated complaints should be deferred to this section of the note. Unless stated otherwise or congruent with this section of the note, additional signs, symptoms, or incongruence should be interpreted as inaccurate with my clinical impression. Related Data Home Medications ?Medication ?Instructions ?Recorded ?Confirmed albuterol sulfate 90 mcg/actuation 2 inh inhalation Q4HP PRN 10/12/24 09/03/25 aerosol inhaler Shortness of breath apixaban 5 mg tablet (Eliquis) 5 mg PO BID 10/12/24 09/03/25 bisoprolol fumarate 5 mg tablet 5 mg PO DAILY 10/12/24 09/03/25 escitalopram oxalate 20 mg tablet 20 mg PO DAILY 10/12/24 09/03/25 famotidine 20 mg tablet 20 mg PO BID 10/12/24 09/03/25 temazepam 15 mg capsule 15 mg PO HS 10/12/24 09/03/25 trazodone 50 mg tablet 50 mg PO HS 10/12/24 09/03/25 vibegron 75 mg tablet (Gemtesa) 75 mg PO DAILY 10/12/24 09/03/25 benralizumab 30 mg/mL subcutaneous 30 mg SQ Q56D 10/13/24 09/03/25 auto-injector (Fasenra Pen) evolocumab 140 mg/mL subcutaneous 140 mg SQ Q14D 10/13/24 09/03/25 pen injector (Repatha SureClick) cetirizine 10 mg tablet 10 mg PO 01/30/25 09/03/25 gabapentin 300 mg capsule 300 mg PO TID 09/03/25 09/03/25 Previous Rx's ?Medication ?Instructions ?Recorded pantoprazole 40 mg tablet,delayed 40 mg PO DAILY #30 tabs 01/11/25 release (Protonix) budesonide 0.5 mg/2 mL suspension 0.5 mg (2 mL) inhalation BID 90 04/21/25 for nebulization (Pulmicort) days #360 mL fluticasone propionate 50 See Rx Instructions .Route 05/25/25 mcg/actuation nasal .COMPLEX #16 grams spray,suspension montelukast 10 mg tablet 10 mg PO DAILY 90 days #90 tabs 06/29/25 ipratropium 0.5 mg-albuterol 3 mg 3 ml inhalation Q8H 3 months #540 07/20/25 (2.5 mg base)/3 mL nebulization mL soln clopidogrel 75 mg tablet (Plavix) 75 mg PO DAILY #30 tabs 08/27/25 fluticasone 500 mcg-salmeterol 50 1 inh inhalation BID #180 ea 08/27/25 mcg/dose blistr powdr for inhalation (Advair Diskus) sacubitril 24 mg-valsartan 26 mg 1 tab PO BID #60 tabs 09/03/25 tablet (Entresto) ipratropium 20 mcg-albuterol 100 See Rx Instructions .Route 09/23/25 mcg/actuation mist for inhalation .COMPLEX #4 grams (Combivent Respimat) budesonide 160 mcg-glycopyr 9 2 puff PO BID #10.7 grams 11/03/25 mcg-formot 4.8 mcg/actuation HFA inhaler (Breztri Aerosphere) doxycycline hyclate 100 mg capsule 100 mg PO BID #20 caps 11/18/25 ondansetron 4 mg disintegrating 4 mg PO Q8H PRN nausea and 11/18/25 tablet vomiting #10 tabs Allergies Allergy/AdvReac Type Severity Reaction Status Date / Time codeine Allergy Mild Gastrointestinal Verified 09/03/25 13:20 Upset diphenhydramine (From Allergy Mild Flushing Verified 09/03/25 13:20 Benadryl) Penicillins Allergy Mild Hives Verified 09/03/25 13:20 hydromorphone (From Dilaudid) Allergy Agitated Verified 09/03/25 13:20 lorazepam (From Ativan) Allergy Anxiety Verified 09/03/25 13:20 isosorbide AdvReac Intermediate Severe CHENEY Verified 09/03/25 13:20 diazepam (From Valium) AdvReac Mild Agitated Verified 09/03/25 13:20 hydrocodone AdvReac Hives Verified 09/03/25 13:20 PFSH PFSH Disclaimer: The information contained in this section may have been updated after the patient was seen, as this information can be updated by other users. Medical History Abnormal electrocardiogram [ECG] [EKG] Encounter for screening for malignant neoplasm of respiratory organs Epigastric pain Unstable angina Chest pain Atypical angina Chest pain Acute hypoxemic respiratory failure Hypertension, uncontrolled Asthma exacerbation Pneumonia Dyspnea on exertion Encounter for screening for malignant neoplasm of lung in current smoker with 30 pack year history or greater COPD exacerbation Elevated brain natriuretic peptide (BNP) level Atrial fibrillation Acute exacerbation of chronic obstructive airways disease Respiratory failure with hypoxia SOB (shortness of breath) History of left heart catheterization Abnormal echocardiogram HFrEF (heart failure with reduced ejection fraction) Peripheral eosinophilia Severe persistent asthma Stopped smoking with greater than 30 pack year history Eosinophilia (Unknown) Allergic rhinitis Asthma History of smoking 30 or more pack years Acute respiratory failure with hypoxia Restless leg syndrome Hyperlipidemia Hypertension Atrial fibrillation Anxiety Depression COPD (chronic obstructive pulmonary disease) Thoracic compression fracture Former smoker CAD (coronary artery disease) Surgical History History of colon resection History of bilateral knee replacement H/O: hysterectomy Status post ablation of atrial fibrillation OCT 2019 Hx of CABG Family History Other No significant family history Social History Smoking Status: Former smoker years smoked: 55 how long ago did patient quit smoking: july 2022 quit status: quit date established second hand exposure: No alcohol intake: never substance use type: denies use current occupational status: retired Travel in the last 8 weeks?: None household members: spouse and children housing: house lives independently: No marital status: education level: college current occupational exposures/hazards: No caffeine: Yes Have you lived/traveled outside [place] in past 30 days?: No Contact w/someone who lives/traveled outside US past 30 days?: No Exposure to someone with infectious disease in past 14 days?: No Do you have a fever (greater than 100.4 F or 38 C)?: No Have you tested positive for COVID-19?: No Exposed to someone with COVID-19 in past 14 days?: No Do you have a sore throat?: No Do you have a cough?: No Do you have any weakness?: No Do you have any diarrhea?: No Are you experiencing any unusual bleeding?: No Do you have any muscle aches/pain?: No Do you have any abdominal pain?: No Are you experiencing loss of taste or smell?: No Other Medical History Have you received the Flu Vaccine for this season: No Have you received the Pneumonia Vaccine: Yes ROS Obtained: Yes Systems reviewed as appropriate & no additional complaints except as documented Physical Exam General General appearance: alert Head Head exam: atraumatic and normocephalic Eye Eye exam: Present PERRL and EOMI ENT ENT exam: Present mucous membranes moist Neck Neck exam: Present normal inspection Chest Chest inspection: Present normal inspection and symmetric chest wall rise Respiratory Respiratory exam: Present normal lung sounds bilaterally; Absent respiratory distress Cardiovascular Cardiovascular exam: Present regular rate and normal rhythm Abdominal Exam Abdominal exam: Present soft; Absent tenderness Extremities Exam Extremities exam: Present other (Tenderness over the left hip. No tenderness over the bilateral upper extremities or right lower extremity. 5 out of 5 strength right upper and right lower extremity.) Neurological Exam Neurological exam: Present alert, oriented X3 and other (1 out of 5 strength left upper and left lower extremity. 5 out of 5 strength right upper right lower extremity. Flattening of the nasolabial fold on the left. Decreased sensation left lower extremity); Absent CN II-XII intact Psychiatric Psychiatric exam: Present normal affect Skin Skin exam: Present warm and dry Medical Decision Making Medical Records Screening: Per USPSTF and CDC recommendations, given the prevalence of disease in our region, it is our hospital?s policy to screen for HIV and viral Hepatitis for all patients aged 18 and over and those with ongoing risk factors. Donald Inquiry Pt receiving controlled substance: No Vital Signs: 11/22/25 08:10 11/22/25 09:00 11/22/25 09:30 Temperature 98.6 F Temperature Source Oral Pulse Rate 84 78 Pulse Rate [Left Radial] 82 Respiratory Rate 24 18 13 Blood Pressure 144/87 H 141/91 H Blood Pressure [Right Arm] 153/108 H Blood Pressure Mean [Right Arm] 123 02 Sat by Pulse Oximetry 95 95 94 L Oxygen Delivery Method Room Air Lab Data Lab Results 11/22/25 08:10: WBC 9.3, RBC 4.90, Hgb 14.4, Hct 44.8, MCV 91.4, MCH 29.4, MCHC 32.1, RDW 13.4, Plt Count 356, MPV 8.7, Neut % (Auto) 75.3, Lymph % (Auto) 15.1, [place] % (Auto) 8.0, Eos % (Auto) 0.9, Baso % (Auto) 0.3, Neut # (Auto) 7.0, Lymph # (Auto) 1.4, [place] # (Auto) 0.7, Eos # (Auto) 0.1, Baso # (Auto) 0.0, PT 11.3, INR 1.02, APTT 24.9, Sodium 140, Potassium 2.7 L*, Chloride 104, Carbon Dioxide 29, Anion Gap 9.7, BUN 7, Creatinine 0.70, Estimated Creat Clear 58, Estimated GFR 82, Est GFR ( Amer) 99, Glucose 125 H, Calcium 9.3, Magnesium 1.8, Total Bilirubin 0.7, AST 37 H, ALT 24, Alkaline Phosphatase 74, Troponin I < 0.01, Total Protein 7.7, Albumin 4.5, Globulin 3.2, Albumin/Globulin Ratio 1.4, Triglycerides 97, Cholesterol 139 L, LDL Cholesterol Direct 46.73 L, VLDL Cholesterol 19, HDL Cholesterol 88 H, Cholesterol/HDL Ratio 1.6, Plasma/Serum Alcohol < 10 11/22/25 08:55: Urine Color Yellow, Urine Appearance Clear, Urine pH 6.5, Ur Specific [place] <= 1.005, Urine Protein Negative, Urine Glucose (UA) Negative, Urine Ketones Negative, Urine Blood Negative, Urine Nitrate Negative, Urine Bilirubin Negative, Urine Urobilinogen 0.2, Ur Leukocyte Esterase Negative, Urine RBC None, Urine WBC None, Ur Squamous Epith Cells None, Urine Bacteria None, Urine Opiates Screen Negative, Urine Methadone Screen Negative, Ur Barbituates Screen Negative, Ur Phencyclidine Scrn Negative, Ur Amphetamines Screen Negative, U Benzodiazepines Scrn Negative, Urine Cocaine Screen Negative, U Marijuana (THC) Screen Negative 11/22/25 08:10 11/22/25 08:10 Orders (Tests/Meds): ED MEDICATIONS Generic Name Dose Route Start Last Admin Trade Name Freq PRN Reason Stop Dose Admin Potassium Chloride/Water 100 mls @ 50 mls/hr 11/22/25 08:55 11/22/25 09:30 Potassium Chloride 20meq/100ml Ivpb IV 11/22/25 14:54 50 mls/hr Q2H CORDELIA Administration Sodium Chloride 10 ml 11/22/25 08:15 Sodium Chloride 0.9% 10ml Flush Syringe IV 12/22/25 08:14 NEEDED PRN Maintain IV Site Discontinued Medications Generic Name Dose Route Start Last Admin Trade Name Freq PRN Reason Stop Dose Admin Fentanyl Citrate 50 mcg 11/22/25 08:15 11/22/25 09:07 Fentanyl 100mcg/2ml Vial IV 11/22/25 08:16 50 mcg ONCE ONE Administration Iopamidol 160 ml 11/22/25 09:01 11/22/25 09:03 Iopamidol-370 (76%);100ml Bottle IV 11/22/25 09:02 160 ml ONCE ONE Administration Ondansetron HCl 4 mg 11/22/25 08:15 11/22/25 09:07 Ondansetron 4mg/2ml Vial IV 11/22/25 08:16 4 mg ONCE ONE Administration Sodium Chloride 10 ml 11/22/25 09:01 11/22/25 09:02 Sodium Chloride 0.9% 10ml Syr (Rad Only) IV 11/22/25 09:02 10 ml ONCE ONE Administration Sodium Chloride 100 ml 11/22/25 09:01 11/22/25 09:02 0.9 % Sodium Chloride 50 Ml Vial IV 11/22/25 09:02 100 ml ONCE ONE Administration ORDERS Category Date Time Status CT angio abd/pel - TRAUMA Stat Cat Scan 11/22/25 08:[address] angio chest - dissection Stat Cat Scan 11/22/25 08:[address] angio head Stat Cat Scan 11/22/25 08:[address] angio neck Stat Cat Scan 11/22/25 08:[address] bony pelvis Stat Cat Scan 11/22/25 08:[address] cervical spine wo con Stat Cat Scan 11/22/25 08:[address] head/brain wo con Stat Cat Scan 11/22/25 08:15 Completed Femur XR left 2 views [XR femur LT 2V] Stat Exams 11/22/25 08:15 Completed Activated Partial Thrombo Time Stat Lab 11/22/25 08:10 Completed Complete Blood Count Auto Diff Stat Lab 11/22/25 08:10 Completed Comprehensive Metabolic Panel Stat Lab 11/22/25 08:10 Completed Drug Screen,Urine Stat Lab 11/22/25 08:55 Completed Ethyl Alcohol Stat Lab 11/22/25 08:10 Completed Lipid Panel Stat Lab 11/22/25 08:10 Completed Magnesium Stat Lab 11/22/25 08:10 Completed Prothrombin Time INR Stat Lab 11/22/25 08:10 Completed Troponin I Q3H Lab 11/22/25 11:15 Ordered Troponin I Q3H Lab 11/22/25 14:15 Ordered Troponin I Stat Lab 11/22/25 08:10 Completed Urinalysis and Microscopic Stat Lab 11/22/25 08:55 Completed ECG Request Stat Y 11/22/25 08:15 Ordered ECG Data Tracing #1: Independently interpreted by me rate is irregular, sinus arrhythmia with intermittent premature contractions, no ST elevation in anatomical contiguous leads, QTc 445 Medical Decision Narrative: In summary patient is a 74-year-old female with past medical history described above who presents emergency department for evaluation of loss of motor control and traumatic injury sustained in a fall in the setting of multiple comorbidities and intracranial aneurysm status post coiling. My concern for CVA is high. Last known normal 10 PM when she went to bed. Fingerstick blood glucose upon arrival nonactionable. Large-bore IV access obtained. Patient has left-sided parapsoas left hip tenderness. No cervical spine tenderness and is able to range her neck freely. No visual changes. Patient is well outside the window for thrombolytics. Patient undergo emergent noncontrasted CT scan of the head CTA of the head and neck stroke protocol. In addition trauma survey will be conducted with noncontrasted CT scan of the cervical spine, CTA chest, abdomen, pelvis. CT bony pelvis and plain films of the left femur will be obtained. Right upper extremity is nontender and sensation is preserved x-rays were considered will be deferred at this time. Initial inventions include Zofran and fentanyl. NIH is 9 patient scores minor facial paralysis left, left arm no effort against gravity, left leg no effort against gravity, decreased sensation left lower extremity. Initial hematologic labs no significant leukocytosis no transfusable anemia moderate hypokalemia which will be repleted IV, initial troponin undetectably low. Noncontrasted CT scan of the head informally visualized by me, significant beam artifact around her reported coils, no obvious intracranial hemorrhage. I had interactive discussion with radiology regarding this besides the beam artifact noncontrasted CT scan of the head and CT of the head and neck is nonactionable. Original chest CTA read is remarkable for moderate wedge compression deformity involving T7 age-indeterminate with incidental persistent ascending aorta dilatation, patchy opacities in left upper lobe likely represent atelectasis or infection. I called the radiologist as I appreciate a rib fracture, they agree nondisplaced left anterior seventh rib fracture. Remainder of CT imaging remarkable for moderate wall thickening of the anorectal region for which patient was already aware and pending outpatient follow-up, questionable thyroid nodule measuring 6 mm. Given no given opacities on the left thoracic cage in the setting of trauma without proceeding respiratory infection I have concern for developing pulmonary contusion. The case was discussed with Dr. Gaona at [facility] and their stroke team regarding management patient will be transferred [facility] for continued evaluation at this time. Critical Care Critical Care Time Critical Care Time: Yes Attestation: On 11/22/25, the high probability of a clinically significant, sudden or life threatening deterioration of the following system(s) required my full and direct attention, intervention and personal management. The time I documented below is in addition to time spent performing reported procedures but includes the following listed in this critical care notation. Total Time Total Critical Care Time: 45
--- OUTSIDE RECORDS SUMMARY | 2025-11-22 08:19 | XMS_ITS | Encounter Summary ---
[facility] Address [address] [place] [address] Care Team Providers Care Sql Data Analyst Name Role Phone Michael Baez MD Primary Care Provider [phone] Encounter Details Date Type Department Care Team (Late st Contact Info) Description 12/11/2018 External CPT II [facility] Social History Tobacco Use [...] on filedocumented in this encounter Care Teams Sql Data Analyst Relationship Specialty Start Date End Date Michael Baez MD [address] [facility] [address] [facility] [address] PCP - General Adolescent Medicine 04/25/23 documented as of this encounter
--- OUTSIDE RECORDS SUMMARY | 2025-11-22 08:19 | XMS_ITS | Encounter Summary ---
Author Organization [employer] ([place], [place], [place], [place], [place]) Address [address] [place] [address] Care Team Providers Care Forklift Wheel Loader Name Role Phone Unavailable Primary Care Provider Unavailabl e Encounter Details Date Type Department Care Team (Late st Contact Info) Description 07/07/2019 Transcribed Document [facility] Family Medicine [facility] [address] ProviderCarlitos MD [address] [place], [place] [id number] Social History Tobacco Use Types Packs/Day Years [...] no sleepiness and scores 0/24 in the [place] Sleepiness Scale. She does have very mild [...]
--- OUTSIDE RECORDS SUMMARY | 2025-11-22 08:19 | XMS_ITS | Data Portability ---
Author Organization [place] [facility] Address [address] [place] [address] Assessment Encounter Date Assessment Date Assessment LastModified [...] and regulations. Patient is located in the [facility] and the treating medical provider is located in the [facility]. The telephone call was conducted for [...] daily living. She has been told at [facility] that she was not a [...] and regulations. Patient is located in the [facility] and the treating medical provider is located in the [facility]. The telephone call was conducted for approximately 15 mins. abux Not available 09/18/2024 16:47:27 Plan of Treatment Reminders Order Date Submit Date Provider Last Modified By Organization Details Last Modified Time Details Appointments None recorded. Lab None recorded. Referral orthopedic surgeon referral 2023 024 Aubrey Gonzáles MD, [address] [facility] [address], [place], [address], 5 07:51:54 Procedures intra-artic ular injection, hip (PROC) 2023 024 [email or web address] 1 Not available 4 12:24:31 Surgeries None recorded. Imaging XR, hip, unilateral, 2 or 3 view 2023 024 [facility] (X-Ray), [address] [place] [address] [address] [place], [address], 4 15:40:01 Medication Orders tramadol 50 mg tablet 2023 024 [facility], [address] [place], [id number], 4 16:50:08 Patient TargetsNo targets recorded. Patient InstructionsNo instructions recorded. Reason for Referral Orthopedic Surgeon Referral for Pain of right hip joint Referring Physician: Uriel Sharma, Pain Management, [phone] Encounter Date: 09/18/2024 Results Created Date Observation Date Name Description Value Unit Range Abnormal Flag Note LastModifiedBy Organization Detail LastModifiedTime 09/02/20 24 MRI, lumba r spine , w/o contr ast No observ ation record ed. Not Available 2023 09:09:46 09/05/20 24 XR, hip + pelvi s, unila teral No observ ation record ed. [email or web address] Not Available 2023 11:33:42 Result Notes None recorded. Problems Name Problem SNOMED Code Status Onset Date Resolution Date Notes Provider Name and Address Organization Details Recorded Time Compression fracture of lumbar spine 325079933 Active 2023 [facility] 4 07:22:24 Pain of right hip joint 4251926100650 02 Active 2023 Uriel Sharma MD [address] [facility], [place], [address], [place] [facility] 4 15:17:38 Osteoarthri tis of right hip joint 3511956334826 07 Active 2023 Uriel Sharma MD [address] [facility],[address], [address], [place] [facility] 4 13:45:31 Problem Notes None recorded. Procedures Surgical History Date Name Laterality Status Provider Name and Address Organization Details Recorded Time 4 Hip Joint Steroid Injection completed Uriel Sharma MD [address] [facility],[address] [address], [place], [address], [place] [facility] 09/02/2024 13:44:15 Kyphoplasty completed Uriel Sharma MD [address] [facility],[address] [address], [place], [address], [place] [facility] 08/07/2024 [...] n Not available Not available Not available 08/07/202447001 2 RxNorm MUSTAPHA NUNEZ null, [place] [facility] 4 13:05:33 5637 midazolam hydrochlo ride medicatio n Not available Not available Not available 08/07/202472920 8 RxNorm MUSTAPHA NUNEZ null, [place] - [...] /min 98 % 162.56 cm 30 kg/m2 34063.6 6 g 137/80 mm[Hg] MUSTAPHA NUNEZ [place] [facility] 4 13:56:35 Date Recorded Body height Body mass index (BMI) Body weight Oxygen saturation Heart rate Pain severity - 0-10 verbal numeric rating [Score] - Reported Systolic And Diastolic Provider Name and Address Organization Details Last Updated DateTime 4 162.56 cm 30 kg/m2 23607.6 6 g 98 % 76 /min 10 [...] COVID-19 While That Case Was Ill? No [email or web address] Information n ot available 08/07/2024 In The 14 Days Before Symptom Onset, Have You Had Close Contact With A Person Who Is Under Investigation For COVID-19 While That Person Was Ill? No Information not available 08/07/2024 Have You Been To An Area Known To Be High Risk For COVID-19? No [email or web address] Information not available 08/07/2024 Sex: Female Functional Status Question Answer Note LastModified by Organizat ion Details LastModified Time Do you use any illicit or recreational drugs? No Information not available 08/07/2024 Do you or have you ever used any other forms of tobacco or nicotine? No [email or web address] Information not available 08/07/2024 What is your level of alcohol consumption? None [email or web address] Information not available 08/07/2024 Mental Status None recorded. Family History Nothing Reported. Medical History No medical history recorded. Gynecological HistoryNo gynecological history recorded. Obstetrics History GPAL:G 0 P 0 0 0 0 Past Encounters Encounter ID Performer Location Encounter Start Date Encounter Closed Date Diagnosis/Indication Diagnosis SNOMED-CT Code Diagnosis ICD10 Code Diagnosis IMO Codes Diagnosis Note [id number] Uriel Sharma MD [address] [place] [address] 08/07/2024 12:39:56 08/08/2024 08:05:08 Compression fracture of lumbar spine 320945690 M48.56XA Compressio n fracture of L2 1601659790 9216604 M48.56XA [id number] Uriel Sharma MD [address] [place] [address] 08/22/2024 13:35:15 08/22/2024 14:58:08 Compression fracture of lumbar spine 636640085 M48.56XA Pain of ri ght hip joint 5985490228 52688 M25.551 [id number] Uriel Sharma MD [facility] [address] [place] [address] 09/02/2024 12:43:24 09/02/2024 14:03:09 Compression fracture of lumbar spine 377199547 M48.56XA Pain of ri ght hip joint 0652862096 98861 M25.551 Osteoarthr itis of right hip joint 1999210365 54455 M16.11 [id number] Uriel Sharma MD [facility] [address] [place] [address] 09/18/2024 15:30:54 09/19/2024 08:23:35 Pain of right hip joint 9328101724 82984 M25.551 Osteoarthr itis of right hip joint 9788800409 77681 M16.11 Compressio n fracture of lumbar spine 930732018 M48.56XA Health Concerns Section Related Observation LastModified by Organization Detai ls LastModified Time None Recorded Concern Status LastModified by Organization Details LastModified Time None Recorded Advance Directives Directive None Recorded Payers Insurance Date Sequence Insurance Name Policy Number Policy Kuo Covered Member ID Kuo Member ID Guarantor Name 12/15/2022 1 [place] Supriya Andres [id number] Supriya Andres 02/07/2022 2 [facility] (MEDICAID REPLACEMENT - HMO) Supriya Andres [id number] Supriya Andres 12/08/2020 2 UNSPECIFIED REMIT PAYOR Supriya Andres 04/11/2022 2 MEDICAID-[facility] HEALTH CHOICES - FFS/TRADITION AL Supriya Andres [id number] Supriya Andres 06/03/2024 1 [employer] (MEDICARE REPLACEMENT/A DVANTAGE - PPO) Supriya Andres [id number] Supriya Andres 05/16/2024 2 MEDICAID-[facility] HEALTH CHOICES - FFS/TRADITION AL Supriya Andres [id number] Supriya Andres 09/15/2024 1 [employer] (MEDICARE REPLACEMENT/A DVANTAGE - PPO) [id number] Supriya Andres [id number] Supriya Andres 09/01/2024 2 [place] Supriya Andres [id number] Supriya Andres Notes Date Note Type Note [...] factors, (nothing). Uriel Sharma MD [address], [address], [place] [facility] 08/07/2024 23:23:49 [...] factors, (nothing). Uriel Sharma MD [address], [address], [facility] 08/22/2024 15:17:54 [...] factors, (nothing). Uriel Sharma MD [address] [address], [place], [address], [facility] 09/02/2024 13:46:16 OBGyn Episode No OBEpisode recorded.
--- OUTSIDE RECORDS SUMMARY | 2025-11-22 08:19 | XMS_ITS | Encounter Summary ---
Author Organization [facility] Address [address] [place] [address] Care Team Providers Care Girls Swimming Coach Name Role Phone Michael Baez MD Primary Care Provider [phone] Acacia Scott APRN Unavailable [phone] Virgilio Nguyễn Unavailable Encounter Details Date Type [...] time in the past 12 m [facility], were you homeless or living [...] drink first t pippa in the morning (EYE-REVENUE SPECIALIST) to steady your nerves or to [...] of these 10/20/2025 12:04 PM JORGE Diaz Dearbornniru bauer * Travel Screening Question Answer Entry Date Author Have you traveled intern[place] or domestically in the last month? No 10/20/2025 12:04 PM Krissy Choudhary documented in this encounter Plan of Treatment Upcoming Encounters Date Type Department Care Team (Late st Contact Info) Description 03/15/2026 11:20 AM EDT Office Visit [place] [facility] [address], [address] [place] [address] Kylah Alejandra, PA [address] [place] [address] documented as of this encounter Visit Diagnoses Not on filedocumented in this encounter Additional Health Concerns Assessment Noted Time A fall risk assessment has been complete d for the patient 08/07/2025 2:23 PM EDT A Body Mass Index follow-up plan has been documented for the patient 10/20/2025 4:20 PM EST documented as of this encounter Care Teams Girls Swimming Coach Relationship Specialty Start Date End Date Michael Baez MD [facility] 2A [address] PCP - General 04/08/21 Acacia Scott APRN [address] [place] [address] Nurse Practitioner Cardiology 03/27/22 Virgilio Nguyễn [id number] Referring Physician 10/07/24 documented as of this encounter
--- OUTSIDE RECORDS SUMMARY | 2025-11-22 08:19 | XMS_ITS | Encounter Summary ---
Author Organization [facility] Address [address] [place] [address] Care Team Providers Care Specialty Sales Consultant Name Role Phone Michael Baez MD Primary Care Provider [phone] Acacia Scott APRN Unavailable [phone] Virgilio Nguyễn Unavailable Encounter Details Date Type [...] any time in the past 12 m [facility] were you [facility] or living in a [...] drink first t pippa in the morning (EYE-INSPECTOR TYPE) to 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 0 05/03/2025 CAGE Questionnaire Score 0 025 Utilities Answer Date Recorded In the past 12 months has th e [employer], gas, oil, or water company threatened to [...] Description 03/15/2026 11:20 AM EDT Office Visit [place] [facility] [address] [place] [address] Kylah Alejandra, EMMY [address] [place] [address] documented as of this encounter Visit Diagnoses Not on filedocumented in this encounter Additional Health Concerns Assessment Noted Time A fall risk assessment has been complete d for the patient 08/07/2025 2:23 PM EDT A Body Mass Index follow-up plan has been documented for the patient 08/07/2025 4:31 PM EDT documented as of this encounter Care Teams Specialty Sales Consultant Relationship Specialty Start Date End Date Michael Baez MD [facility] 2A [id number] PCP - General 04/08/21 Acacia Scott APRN [address] [place] [id number] Nurse Practitioner Cardiology 03/27/22 Virgilio Nguyễn [id number] Referring Physician 10/07/24 documented as of this encounter
--- OUTSIDE RECORDS SUMMARY | 2025-11-22 08:19 | XMS_ITS | Clinical Summary ---
Author Organization [facility] ([place], [place], [place], [place], [place]) Address [address] [place] [address] Care Team Providers Care Print Graphic Designer Name Role Phone Unavailable Primary Care Provider [...]
--- OUTSIDE RECORDS SUMMARY | 2025-11-22 08:19 | XMS_ITS | Clinical Summary ---
Author Organization [facility] Address [address] [place] [address] Care Team Providers Care Tire Adjuster Name Role Phone Michael Baez MD Primary Care Provider [phone] Acacia Scott APRN Unavailable [phone] Virgilio Nguyễn Unavailable Allergies Active Allergy Reactions [...] 2 puffs every 4 hours as needed. 0 Active famotidine (Pepcid) 20 MG tablet Take 1 tablet by mouth 2 times a day as needed. 1 Active temazepam (Restoril) 15 MG capsule Take 1 capsule by mouth nightly. 2 Active fluticasone (Flonase) 50 MCG/ACT nasal spray Administer 1 spray into each nostril daily. 2 Active Fasenra Pen 30 MG/ML solution auto-injector injection Inject 1 mL under the skin every 56 days. Takes every 8 weeks - next dose due 09/07/25 4 Active Gemtesa 75 MG tablet Take 75 [...] Active azelastine (Astelin) 0.1 % nasal spray 4 Active acetaminophen (Tylenol 8 Hour) 650 MG [...] cetirizine (ZyrTEC) 10 MG tablet 1 tablet. 5 Active Entresto 24-26 MG tablet 5 Active gabapentin (Neurontin) 300 MG capsule Take 1 capsule by mouth 3 times a day. 5 Active Eliquis 5 MG tablet Take 1 tablet by mouth 2 times a day. 180 tablet 3 5 Active Evolocumab (Repatha) 140 MG/ML solution auto-injector autoinjector Inject 1 mL under the skin every 14 days. 2 mL 1 5 026 Active fluticasone-salm eterol (Advair Diskus) 500-50 MCG/ACT diskus inhaler inhale 1 puff by mouth 2 times a day 5 Active ipratropium-albu terol (Duo-Neb) 0.5-2.5 mg/3 mL nebulizer solution INHALE THE CONTENTS OF 1 VIAL VIA NEBULIZER EVERY 8 HOURS Active clopidogrel (Plavix) 75 MG tablet Take 1 tablet by mouth daily. 90 tablet 1 5 Active Active Problems Problem Noted Date [...] per protocol. 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 05/13/2019 Assessment & [...] [facility] [address] [place] [id number] David Gallego MD Cerebral aneurysm (Primary Dx) 10/20/2025 12:04 PM EST - 10/20/2025 11:59 PM EST Hospital Encounter [facility] [address] [place] [phone] Cerebral aneurysm Discharge Disposition: Home or Self Care 10/20/2025 Refill [facility] [address], [address] [place] [phone] Acacia Scott APRN 10/20/2025 Travel 10/18/2025 Travel 09/10/2025 Travel 09/10/2025 Orders Only [facility] [address] [place] [address] Prachi Hodgson PA Cerebral aneurysm (Primary Dx) 09/09/2025 11:55 PM EDT - 09/10/2025 2:18 PM EDT Hospital Encounter [facility] OPERATING ROOM [address] [place] [phone] Anders Sotelo MD Armstrong, Bruce, RN Aneurysm ([facility]) (Primary Dx); Pre-op exam; Cerebral aneurysm Discharge Disposition: Home or Self Care 09/09/2025 1:15 PM EDT Anesthesia Event [facility] Interventional Radiology [address] [place] [phone] Jill Barnes CRNA, Elizabeth Benitez PA 09/09/2025 Travel 09/08/2025 Travel 08/31/2025 1:00 PM EDT Pre-Admission Testing [facility] [address] [place] [address] 08/31/2025 Travel from Last 3 Months Immunizations Immunization [...] time in the past 12 m [facility], were you homeless or living in [...] drink first t pippa in the morning ([facility]RN OPERATING ROOM) to 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 0 05/03/2025 CAGE Questionnaire Score 0 025 Utilities Answer Date Recorded In the past 12 months has [employer], gas, oil, or water company threatened to [...] Description 03/15/2026 11:20 AM EDT Office Visit [facility] [address] [place] [phone] Kylah Alejandra, EMMY [address] [place] [address] Health Maintenance Due Date Last [...] Screening 08/07/2023 08/07/2022 [facility]-Depression Screening 03/31/2025 03/31/2024 XLM-OSNNX-10 Vaccine ( - 2024- season) 2025 [facility]- SDOH Screenings 11/04/2025 [facility]-Adult [...] this topic Medical Devices Implanted Type Area Upper Cutter Machine Device Identifier Shelf Expiration Date Model / Serial / Lot Stent Without Tip [place] 3mm X 24mm - [id number] Implanted:Qty: 1 on 06/22/2025 by Marifer Rose, PAULINO at [place] [address] 68 01/31/2030 [id number] / / [id number] Vip Vascular Closure Device 6 Fr - [id number] Implanted:Qty: 1 on 06/22/2025 by Marifer Rose RN at [facility] [employer]-[id number] 02/23/2026 [id number] / / [id number] Coil Detach Xl Soft 7x20cm - [id number] Implanted:Qty: 1 on 09/09/2025 by Anders Sotelo MD at [place] [address] 68 05/31/2030 [id number] / / [id number] Coil Detach Xl Soft 7x20cm - [id number] Implanted:Qty: 1 on 09/09/2025 by Anders Sotelo MD at [place] [address] 68 05/29/2030 [id number] / / [id number] Coil Detach Xl Soft 6x20cm - [id number] Implanted:Qty: 1 on 09/09/2025 by Anders Sotelo MD at [place] [address] 68 06/01/2030 [id number] / / [id number] Coil 360 Ultra 5mm-15cm - [id number] Implanted:Qty: 1 on 09/09/2025 by Anders Sotelo MD at [place] [address] 68 05/11/2030 [id number] / / [id number] Coil 360 Ultra 5mm-15cm - [id number] Implanted:Qty: 1 on 09/09/2025 by Anders Sotelo MD at [place] [address] 68 05/16/2030 [id number] / / [id number] Closure Device Vip Angioseal 8 Fr - [id number] Implanted:Qty: 1 on 09/09/2025 by Anders Sotelo MD at [facility] [employer]-[id number] 05/18/2026 [id number] / / [id number] Stent Without Tip [place] 3mm X 24mm - [id number] Implanted:Qty: 1 on 09/09/2025 by Anders Sotelo MD at [place] [address] 68 02/24/2030 [id number] / / [id number] Hip Stem Inzone Detachment - [id number] Implanted:Qty: 1 on 09/09/2025 by Anders Sotelo MD at [place] [address] 68 04/09/2027 [id number] / / [id number] Coil Detach Xl Soft 80o76zv - [id number] Implanted:Qty: 1 on 09/09/2025 by Anders Sotelo MD at [place] [address] 68 06/21/2030 [id number] / / [id number] Coil Detach Xl Soft 08c32gg - [id number] Implanted:Qty: 1 on 09/09/2025 by Anders Sotelo MD at [place] [address] 68 06/21/2030 [id number] / / [id number] Coil Detach Xl Soft 83x31qd - [id number] Implanted:Qty: 1 on 09/09/2025 by Anders Sotelo MD at [place] [address] 68 06/08/2030 [id number] / / [id number] Coil Detach Xl Soft 92w87vb - [id number] Implanted:Qty: 1 on 09/09/2025 by Anders Sotelo MD at [place] [address] 68 06/08/2030 [id number] / / [id number] Coil Detach Xl Soft 8x30cm - [id number] Implanted:Qty: 1 on 09/09/2025 by Anders Sotelo MD at [place] [address] 68 05/04/2030 [id number] / / [id number] Procedures Procedure Name Priority Date/Time Associated Diagnosis [...] W/O DIFFERENTIAL Routine 09/09/2025 5:50 PM EDT [facility], E/M 30-74 MINUTES Routine 09/09/2025 [...] coil performed here 2024, Joe-Rikki/Deepak TECHNIQUE: 3-D [id number] MR angiography was performed through the major [...] Overall intrinsic flow related enhancement suggesting patency.. [place] and Major Peripheral Branches: Sequela [...] coil performed here 2024, Lashonda/Deepak TECHNIQUE: 3-D [id number] MR angiography was performed through the majorintracranial [...] degradation. Overall intrinsic flowrelated enhancement suggesting patency.. [place] and Major Peripheral Branches: Sequela [...] Hold for add-ons 09/10/2025 8:[address] [facility] Comment:Auto resulted. Blood Venous blood specimen / Unknown 09/10/2025 4:45 AM EDT 09/10/2025 5:05 AM EDT us Anders Sotelo MD LAB BLOOD ORDERABLES Final Re sult Performing Organization Address [facility] Co de Phone Number [facility] [address] [place] [address] * Light Green Top (09/10/2025 4:45 AM EDT) Extra Hold for add-ons 09/10/2025 8:[address] [facility] Comment:Auto resulted. Blood Venous blood specimen / Unknown 09/10/2025 4:45 AM EDT 09/10/2025 5:05 AM EDT us Anders Sotelo MD LAB BLOOD ORDERABLES Final Re sult Performing Organization Address City/[facility] Co de Phone Number [facility] [address] [place] [address] * (ABNORMAL) Blood gas panel, arterial (09/09/2025 5:51 PM EDT) pH, Arterial 7.32 7.31 - 7.42 LAB HEMATOLOGY METHOD 09/09/2025 5:[address] [facility] pCO2, Arterial 44 35 - 48 mmHg LAB HEMATOLOGY METHOD 09/09/2025 5:[address] [facility] pO2, Arterial 128 >70 mmHg LAB HEMATOLOGY METHOD 09/09/2025 5:[address] [facility] SO2, Measured, Arterial 99(H) 94 - 98 % LAB HEMATOLOGY METHOD 09/09/2025 5:[address] [facility] Base Excess, Arterial -3.7(L) -2.0 - 3.0 mmol/L LAB HEMATOLOGY METHOD 09/09/2025 5:[address] [facility] Bicarbonate, Calculated, Arterial 22 22 - 26 mmol/L LAB HEMATOLOGY METHOD 09/09/2025 5:[address] [facility] Hematocrit, Whole Blood 33.8(L) 34.0 - 45.0 % LAB HEMATOLOGY METHOD 09/09/2025 5:[address] [facility] Sodium, Whole Blood 143 136 - 145 mmol/L LAB HEMATOLOGY METHOD 09/09/2025 5:[address] [facility] Potassium, Whole Blood 4.1 3.6 - 4.9 mmol/L LAB HEMATOLOGY METHOD 09/09/2025 5:[address] [facility] Chloride, Whole Blood 114(H) 97 - 107 mmol/L LAB HEMATOLOGY METHOD 09/09/2025 5:[address] [facility] Glucose, Whole Blood 114(H) 74 - 99 mg/dL LAB HEMATOLOGY METHOD 09/09/2025 5:[address] [facility] Ionized Calcium, Whole Blood 4.4(L) 4.6 - 5.1 mg/dL LAB HEMATOLOGY METHOD 09/09/2025 5:[address] [facility] Lactate, Arterial, Whole Blood 0.7 0.5 - 1.6 mmol/L LAB HEMATOLOGY METHOD 09/09/2025 5:[address] [facility] Blood Arterial blood specimen / Unknown Arterial Puncture / Unknown 09/09/2025 5:51 PM EDT 09/09/2025 5:58 PM EDT us Rose Lucina Dang SENIOR PROCESS CONTROL TECH, DNP LAB BLOOD ORDERABLES Fi nal Result [facility] [address] [place] [address] * (ABNORMAL) CBC W/O Differential (09/09/2025 5:50 PM EDT) WBC Count 5.96 3.70 - 10.30 10*3/uL LAB HEMATOLOGY METHOD 09/09/2025 6:[address] [facility] RBC Count 3.76(L) 3.90 - 5.20 10*6/uL LAB HEMATOLOGY METHOD 09/09/2025 6:[address] [facility] HGB 11.2 11.2 - 15.7 g/dL LAB HEMATOLOGY METHOD 09/09/2025 6:[address] [facility] HCT 34.8 34.0 - 45.0 % LAB HEMATOLOGY METHOD 09/09/2025 6:[address] [facility] Platelet Count 235 155 - 369 10*3/uL LAB HEMATOLOGY METHOD 09/09/2025 6:[address] [facility] MCV 93 79 - 98 fL LAB HEMATOLOGY METHOD 09/09/2025 6:[address] [facility] MCH 29.8 26.0 - 32.0 pg LAB HEMATOLOGY METHOD 09/09/2025 6:[address] [facility] MCHC 32.2 30.7 - 35.5 g/dL LAB HEMATOLOGY METHOD 09/09/2025 6:[address] [facility] RDW 14.6(H) 11.5 - 14.5 % LAB HEMATOLOGY METHOD 09/09/2025 6:[address] [facility] MPV 9.3 8.8 - 12.5 fL LAB HEMATOLOGY METHOD 09/09/2025 6:[address] [facility] nRBC 0.0 <=0.0 per 100 WBCs LAB HEMATOLOGY METHOD 09/09/2025 6:[address] [facility] Blood Venous blood specimen / Unknown Venipuncture / Unknown 09/09/2025 5:50 PM EDT 09/09/2025 6:12 PM EDT us Rose Dang APRN, ERIBERTO LAB BLOOD ORDERABLES Fi nal Result [facility] [address] [place] [address] * (ABNORMAL) Phosphorus, Plasma (09/09/2025 5:50 PM EDT) Phosphorus, Plasma 5.6(H) 2.5 - 4.5 mg/dL 09/09/2025 6:[address] [facility] Blood Venous blood specimen / Unknown Venipuncture / Unknown 09/09/2025 5:50 PM EDT 09/09/2025 6:06 PM EDT us Rose Dang APRN, ERIBERTO LAB BLOOD ORDERABLES Fi nal Result Performing Organization Address City/[facility]/ZIP Co de Phone Number [facility] [address] [place] [address] * (ABNORMAL) Magnesium, Plasma (09/09/2025 5:50 PM EDT) Magnesium, Plasma 1.5(L) 1.9 - 2.4 mg/dL 09/09/2025 6:[address] [facility] Blood Venous blood specimen / Unknown Venipuncture / Unknown 09/09/2025 5:50 PM EDT 09/09/2025 6:06 PM EDT us Rose Dang APRN, DNP LAB BLOOD ORDERABLES Fi nal Result Performing Organization Address City/[facility]/ZIP Co de Phone Number [facility] [address] [place] [address] * (ABNORMAL) Comprehensive metabolic panel (09/09/2025 5:50 PM EDT) Glucose, Plasma 112(H) 74 - 99 mg/dL 09/09/2025 6:[address] [facility] BUN, Plasma 8 8 - 23 mg/dL 09/09/2025 6:[address] [facility] Creatinine, Plasma 0.74 0.60 - 1.10 mg/dL 09/09/2025 6:[address] [facility] BUN/Creatinine Ratio 11 09/09/2025 6:[address] [facility] Sodium, Plasma 142 136 - 145 mmol/L 09/09/2025 6:[address] [facility] Potassium, Plasma 4.3 3.6 - 4.9 mmol/L 09/09/2025 6:[address] [facility] Chloride, Plasma 111(H) 97 - 107 mmol/L 09/09/2025 6:[address] [facility] CO2, Plasma 20(L) 22 - 29 mmol/L 09/09/2025 6:[address] [facility] Anion Gap 11 6 - 16 mmol/L 09/09/2025 6:[address] [facility] Total Calcium, Plasma 7.8(L) 8.9 - 10.2 mg/dL 09/09/2025 6:[address] [facility] Total Protein 5.8(L) 6.3 - 7.9 g/dL 09/09/2025 6:[address] [facility] Albumin, Plasma 3.5 3.5 - 5.2 g/dL 09/09/2025 6:[address] [facility] AST, Plasma 22 10 - 35 U/L 09/09/2025 6:[address] [facility] ALT, Plasma 13 10 - 35 U/L 09/09/2025 6:[address] [facility] Alkaline Phosphatase, Plasma 51 46 - 142 U/L 09/09/2025 6:[address] [facility] Total Bilirubin, Plasma 0.6 0.2 - 1.1 mg/dL 09/09/2025 6:[address] [facility] eGFRcr 85.6 mL/min/1.7 3m*2 09/09/2025 6:[address] [facility] Comment:Reported eGFRcr in m L/min/1.73m2 is based the CKD-EPI 2021 equation that does not use a race coefficient. Blood Venous blood specimen / Unknown Venipuncture / Unknown 09/09/2025 5:50 PM EDT 09/09/2025 6:06 PM EDT Rose Dang APRN, DNP LAB BLOOD ORDERABLES Fi nal Result [facility] [address] [place] [address] * [facility], E/M 30-74 MINUTES (09/09/2025 5:20 [...] stent assisted coil embolization. COMPARISON: DSA 06/22/2025 LUG LOADER: Anders Sotelo M.D. SECONDARY SCALE SHOOTER: Yumi Jefferson MD LENGTH OF PROCEDURE: 57 [...] femoral artery was then accessed with 4 [place] micropuncture set, and a 4 [place] sheath advanced over a J-wire. The [...] 90 cm BMX 81 guide catheter.A 5 [place] La 2 catheter was advanced over a 0.035 [place] guidewire through the sheath and into the [...] obtained. At this point, a Milena 5 citizen [place] intermediate distal access catheter, SL-10 microcatheter, and Buzz 0.014 microwire were coaxially advanced through the guide catheter into the right MCA artery for the support needed to advance the intermediate catheter. The microwire microcatheter were navigated into the right JONAH A1 segment, the microwire was navigated through the aneurysm into the right pericallosal artery. The microwire was removed. A Neuroform [place] stent measuring 3 mm x 24 mm [...] the puncture site was closed using 8 citizen [place] angioseal. Patient tolerated the procedure and she [...] stent assisted coil embolization. COMPARISON: DSA 06/22/2025 LUG LOADER: Anders Sotelo M.D. SECONDARY SCALE SHOOTER: Yumi Jefferson MD LENGTH OF PROCEDURE: 57 [...] common femoral artery wasthen accessed with 4 [place] micropuncture set, and a 4 [place] sheathadvanced over a J-wire. The sheath was connected to a regulated,pressurized infusion of heparinized saline. During access, ultrasoundguidance was used to confirm vessel patency, and to visualize the vascularneedle entry during access. Ultrasound images were included in the finalreport. Using roadmap technique, the sheath was exchanged over a 145cm J-wire fora 90 cm BMX 81 guide catheter.A 5 [place] 2 catheter was advancedover a 0.035 Ang[place] guidewire through the sheath and into thesubclavian [...] cerebral artery A2 segment aneurysm note. Aneurysm hdwtchos32.4 mm x 14.1 mm with 4.6 mm [...] cerebral artery A2 segment aneurysm note. Aneurysm iblhjakl68.4 mm x 14.1 mm with 4.6 mm [...] obtained. At this point, a Milena 5 citizen [place] intermediate distal accesscatheter, SL-10 microcatheter, and Buzz 0.014 microwire werecoaxially advanced through the guide catheter into the right MCA arteryfor the support needed to advance the intermediate catheter. The microwiremicrocatheter were navigated into the right JONAH A1 segment, the microwirewas navigated through the aneurysm into the right pericallosal artery. Themicrowire was removed. A Neuroform [place] stent measuring 3 mm x 24 mm [...] is a good deployment of the stent,patent OJNAH and MCA branches, no in-stent stenosis, no [...] and thepuncture site was closed using 8 citizen [place] angioseal. Patient tolerated theprocedure and she was [...] the findings to the patient's family and [facility] Preliminary report signed by Yumi Jefferson on [...] and Staff Patient location during procedure: [place] INFORMATION RECEPTIONIST: Jill Barnes CRNA, DNP Performed: INFORMATION RECEPTIONIST Patient Condition Indications for airway management: anesthesia [...] Antibody Negative Negative 05/01/2025 9:[address] [facility] Blood Venous blood specimen / Unknown Venipuncture / Unknown 05/01/2025 8:22 PM EDT 05/01/2025 8:34 PM EDT Rula Howe MD LAB BLOOD ORDERABLES Final Re sult [facility] [address] [place] [address] * CT Chest wo IV Contrast (08/07/2022 [...] CHEST WO IV CONTRAST ordered by GUILLERMO PHILIP [id number] CLINICAL INDICATION: Low back pain, no red [...] WO IV CONTRAST ordered by GUILLERMO PHILIP, [id number] CLINICAL INDICATION: Low back pain, no red [...] Patient has decision-making capacity? Yes Care Teams Tire Adjuster Relationship Specialty Start Date End Date Michael Baez MD [facility] [id number] PCP - General 04/08/21 Acacia Scott APRN [address] [place] [phone] Nurse Practitioner Cardiology 03/27/22 Virgilio Nguyễn [id number] Referring Physician 10/07/24
--- OUTSIDE RECORDS SUMMARY | 2025-11-22 08:19 | XMS_ITS | Clinical Summary ---
[facility] Organization [facility] Address [address] [place] [address] Care Team Providers Care Jelly Maker Name Role Phone Michael Baez MD Primary Care Provider [phone] Allergies Active Allergy Reactions Criticality Noted Date [...] Payer (Ef fective 2004-Present) Name:Supriya Andres Member ID:[id number] Relation to Subscriber:Self Name:Supriya Andres Subscriber ID:[id number] Payer ID:[id number] Group ID:Not on file Type:Not on file Address: [address] [place] [id number] [facility] MEDICARE REPLACEMENT Care Teams Jelly Maker Relationship Specialty Start Date End Date Michael Baez MD [address] [facility] [address] [place] [id number] PCP - General Adolescent Medicine 04/25/23
--- OUTSIDE RECORDS SUMMARY | 2025-11-22 08:19 | XMS_ITS | Encounter Summary ---
[facility] Organization [facility] Address [address] [place] [address] Care Team Providers Care Professional Organizer Name Role Phone Michael Baez MD Primary Care Provider [phone] Encounter Details Date Type Department Care Team (Late st Contact Info) Description 12/16/2013 Conversion Encounter [facility] HISTORICAL CONV [address] [place] [address] Interface, See Report Social History [...] See Report - 12/16/2013 8:29 AM EST [place] [address] DISCHARGE SUMMARY PATIENT NAME: SUSANNAH ANDRES [address] [facility] NO: [id number] DATE OF : 1950 DATE OF ADMISSION: [...] Aliya Miller M.D.* MBS/rxll Voice Rec. ID #[id number] Voice Original ID #[id number] Doc ID #[id number] Rev. #0 cc: Aliya Miller M.D.* Dr. Juan David Lopez M.D.* DO NOT TEXT EDIT THIS LINE :CDS:[id number]: Authenticated and Edited by ALIYA MILLER MD On 12/23/13 12:06:53 PM documented in this encounter H&P Notes * Interface, See Report - 12/16/2013 8:29 AM EST [address] HISTORY AND PHYSICAL PATIENT NAME: SUSANNAH ANDRES 2 [facility] NO: [id number] DATE OF : 1950 DATE OF ADMISSION: 12/16/2013 ADMITTING PHYSICIAN: Aliya Miller M.D. PRIMARY CARE PHYSICIAN: Dr. Garcia formerly Dr. Lynn CALCINER OPERATOR: Robel Chicas M.D. REFERRING PHYSICIAN: Ingrid Lopez [...] Negative stress test, 06/2013. 3. History of DC. 4. Obesity with BMI over 32. 5. [...] Aliya Miller M.D.* HARSHAD/danyell Voice Rec. ID #[id number] Voice Original ID #[id number] Doc ID #[id number] Rev. #0 cc: Aliya Miller M.D.* Ingrid Lopez M.D.* DO NOT TEXT EDIT THIS LINE :[facility]:[id number]: Authenticated by ALIYA MILLER MD On 01/06/2014 07:44:48 AM documented in this encounter OR Notes * Op Note - Interface, See Report - 12/16/2013 8:29 AM EST [place] [address] OPERATIVE REPORT PATIENT NAME: SUSANNAH ANDRES1 2 [facility] NO: [id number] DATE OF : 1950 DATE OF OPERATION: 12/16/2013 SURGEON: Ingrid Lopez M.D. BUNG SEWER: Nikole Tovar PA-C PREOPERATIVE DIAGNOSIS: Advanced right [...] closed with #1 Vicryl in an interrupted [id number] fashion, followed by closure of the deep [...] Ingrid Lopez M.D.* MK/rxmjh Voice Rec. ID #[id number] Original Voice Rec. ID #[id number] Doc ID #[id number] Revision Count: 0 cc: Ingrid Lopez M.D.* Shahid Fall M.D.* Nikole Tovar PA-C <start header> [place] [address] OPERATIVE REPORT PATIENT NAME: SUSANNAH ANDRES1 2 [facility] NO: [id number] DATE OF : 1950 <end header> DO NOT TEXT EDIT THIS LINE :[employer]:[id number]: Authenticated by INGRID LOPEZ M.D. On 12/18/2013 [...] EST) Magnesium 2.0 1.7 - 2.4 mg/dL [facility] Blood specimen (specimen) 12/18/2013 4:49 AM EST Narrative [facility] - 12/18/2013 5:31 AM EST Specimen Type: Blood Aliya Miller MD LAB BLOOD ORDERABLES Fi nal Result [facility] [address] [place] [id number], * (ABNORMAL) CBC (No diff) (12/18/2013 4:49 AM EST) WBC 8.79 3.50 - 10.80 [facility] RBC 3.88(L) 3.89 - 5.14 [facility] Hemoglobin 11.9 11.5 - 15.5 g/dL [facility] Hematocrit 34.9 34.5 - 44.0 % [facility] MCV 89.9 80.0 - 99.0 fL [facility] MCH 30.7 27.0 - 31.0 pg [facility] MCHC 34.1 32.0 - 36.0 g/dL [facility] RDW-CV 13.1 11.3 - 14.5 % [facility] Platelets 271 150 - 450 [facility] Blood specimen (specimen) 12/18/2013 4:49 AM EST [facility] - 12/18/2013 5:15 AM EST Specimen Type: Blood Ingrid Lopez MD LAB BLOOD ORDERABLES Final Res ult Performing Organization Address [facility] [place] [address], * (ABNORMAL) Magnesium (12/17/2013 4:55 AM EST) Pathologist [facility] Magnesium 1.4(L) 1.7 - 2.4 mg/dL [facility] Blood specimen (specimen) 12/17/2013 4:55 AM EST [facility] - 12/17/2013 5:52 AM EST Specimen Type: Blood Aliya Miller MD LAB BLOOD ORDERABLES Fi nal Result Performing Organization Address [facility] [place] [address], * Troponin (12/17/2013 4:55 AM EST) Pathologist [facility] Troponin I 0.04 0.00 - 0.60 ng/mL [facility] Blood specimen (specimen) 12/17/2013 4:55 AM EST [facility] - 12/17/2013 5:52 AM EST Specimen Type: Blood Aliya Miller MD LAB BLOOD ORDERABLES Fi nal Result Performing Organization Address [facility] [place] [address], * Vitamin D 25 hydroxy (12/17/2013 4:55 AM EST) Pathologist [facility] 25 Hydroxy, Vitamin D 52.1 ng/mL [facility] Comment: DF by IF @ 12/17/2013 05:57 Reference Ranges for Total Vitamin D 25(OH) Deficiency <20.0 ng/ml Insufficiency 20-30 ng/ml Sufficiency 30-100 ng/ml Toxicity >100 ng/ml Blood specimen (specimen) 12/17/2013 4:55 AM EST [facility] - 12/17/2013 5:57 AM EST Specimen Type: Blood Aliya Miller MD LAB BLOOD ORDERABLES Fi nal Result Performing Organization Address City/[facility]/ZIP [place] [address], * (ABNORMAL) Basic metabolic panel (12/17/2013 4:55 AM EST) Pathologist [facility] Glucose 119(H) 70 - 100 mg/dL [facility] BUN 9 6 - 20 mg/dL [facility] Creatinine 0.9 0.6 - 1.3 mg/dL [facility] Sodium 134(L) 136 - 145 mmol/L [facility] Potassium 3.7 3.4 - 5.4 mmol/L [facility] Chloride 100 98 - 107 mmol/L [facility] CO2 28 20 - 31 mmol/L [facility] Calcium 8.8 8.7 - 10.4 mg/dL [facility] eGFR 67 ml/min/1.7 32 [facility] Comment: DF by IF @ 12/17/2013 05:52 National Kidney Foundation Guidelines Stage Description GFR 1 Normal or High 90+ 2 Mild decrease 60-89 3 Moderate decrease 30-59 4 Severe decrease 15-29 5 Kidney failure <15 Anion Gap 7 3 - 11 mmol/L [facility] Blood specimen (specimen) 12/17/2013 4:55 AM EST Narrative [facility] - 12/17/2013 5:52 AM EST Specimen Type: Blood Aliya Miller MD LAB BLOOD ORDERABLES [facility] Result Performing Organization Address City/State/[facility] [place] [address], * CBC (No diff) (12/17/2013 4:55 AM EST) WBC 9.42 3.50 - 10.80 [facility] RBC 4.00 3.89 - 5.14 [facility] Hemoglobin 12.3 11.5 - 15.5 g/dL [facility] Hematocrit 36.2 34.5 - 44.0 % [facility] MCV 90.5 80.0 - 99.0 fL [facility] MCH 30.8 27.0 - 31.0 pg [facility] MCHC 34.0 32.0 - 36.0 g/dL [facility] RDW-CV 13.2 11.3 - 14.5 % [facility] Platelets 287 150 - 450 [facility] Blood specimen (specimen) 12/17/2013 4:55 AM EST Narrative [facility] - 12/17/2013 5:30 AM EST Specimen Type: Blood Ingrid Lopez MD LAB BLOOD ORDERABLES Final Res ult [facility] [address] [place] [address], * XR KNEE 1 OR 2 VW [...] EST) Glucose 118 75 - 125 mg/dL [facility] Blood specimen (specimen) 12/16/2013 12:51 PM EST [facility] - 12/16/2013 12:54 PM EST Specimen Type: Blood Historical Provider POINT OF CARE TEST ORDERA BLES Final Result Performing Organization Address [facility] [place] [address], * (ABNORMAL) OR Potassium (12/16/2013 8:58 AM EST) Potassium 3.46(L) 3.5 - 5.3 mmol/L [facility] Venous blood specimen (specimen) 12/16/2013 8:58 AM EST [facility] - 12/16/2013 9:23 AM EST Specimen Type: Venous Ingrid Lopez MD LAB BLOOD ORDERABLES Final Res ult Performing Organization Address [facility] [place] [address], * Protime-INR (12/16/2013 8:58 AM EST) Protime 10.9 9.6 - 11.5 Seconds [facility] INR 1.02 [facility] Comment: US by IF @ 12/16/2013 09:46 Therapeutic Ranges for INR: 2.0-3.0 (PT 20-30) 2.5-3.5 (PT 25-34) Blood specimen (specimen) 12/16/2013 8:58 AM EST Narrative [facility] - 12/16/2013 9:46 AM EST Specimen Type: Blood Ingrid Lopez MD LAB BLOOD ORDERABLES Final Res ult Performing Organization Address [facility] [place] [address], * Type and screen (12/16/2013 8:58 AM EST) ABORh A Rh Negative [facility] Antibody Screen Negative [facility] Blood specimen (specimen) 12/16/2013 8:58 AM EST Narrative [facility] - 12/16/2013 10:08 AM EST Specimen Type: Blood Ingrid Lopez MD BLOOD BANK TEST ORDERABLES Fin al Result Performing Organization Address [facility] de Phone Number [facility] [address] [place] [address], * SCANNED EKG (12/16/2013) [facility] ECG ORDERABLES Final Result * X-RAY [...] IMPRESSION- No acute cardiopulmonary disease. E: 12/10/2013 Blood Bank Order Control Clerk- ALEKSANDRA Nascimento Radiologist- ELKIN JACKSON [place] Radiologist- ELKIN JACKSON Released Date Time- 12/10/13 [...] IMPRESSION- No acute cardiopulmonary disease. E: 12/10/2013 Blood Bank Order Control Clerk- ALEKSANDRA Nascimento Radiologist- ELKIN JACKSON [place] Radiologist- ELKIN JACKSON Released Date Time- 12/10/13 1451 Ingrid Lopez MD [facility] DIAGNOSTIC IMAGING ORDERAB LES Final Result * (ABNORMAL) C-reactive protein (12/10/2013 10:30 AM EST) C-Reactive Protein 10.400(H) 0.000 - 10.000 mg/L [facility] Blood specimen (specimen) 12/10/2013 10:30 AM EST Narrative [facility] - 12/10/2013 11:19 AM EST Specimen Type: Serum 1 Ingrid Lopez MD LAB BLOOD ORDERABLES Final Res ult [facility] [address] [place] [address], * Sedimentation rate (12/10/2013 10:30 AM EST) Pathologist [facility] Sed Rate 5 0 - 30 mm/hr [facility] Blood specimen (specimen) 12/10/2013 10:30 AM EST [facility] - 12/10/2013 11:39 AM EST Specimen Type: Blood Ingrid Lopez MD LAB BLOOD ORDERABLES Final Res ult Performing Organization Address [facility] de Phone Number [facility] [address] [place] [address], * APTT (12/10/2013 10:30 AM EST) Pathologist [facility] PTT 27 24 - 31 Seconds [facility] Comment: US by IF @ 12/10/2013 11:14 PTT = The equivalent PTT values for the therapeutic range of heparin levels at 0.3 to 0.5 U/ml are 45 to 60 seconds. PTT = The equivalent PTT values for the therapeutic range of heparin levels at 0.3 to 0.5 U/ml are 45 to 60 seconds. Blood specimen (specimen) 12/10/2013 10:30 AM EST [facility] - 12/10/2013 11:14 AM EST Specimen Type: Blood Ingrid Lopez MD LAB BLOOD ORDERABLES Final Res ult Performing Organization Address [facility] de Phone Number [facility] [address] [place] [address], * Protime-INR (12/10/2013 10:30 AM EST) Pathologist [facility] Protime 10.7 9.6 - 11.5 Seconds [facility] INR 1.00 [facility] Comment: US by IF @ 12/10/2013 11:14 Therapeutic Ranges for INR: 2.0-3.0 (PT 20-30) 2.5-3.5 (PT 25-34) Blood specimen (specimen) 12/10/2013 10:30 AM EST Narrative [facility] - 12/10/2013 11:14 AM EST Specimen Type: Blood Ingrid Lopez MD LAB BLOOD ORDERABLES Final Res ult Performing Organization Address [facility] de Phone Number [facility] [address] [place] [address], * Hemoglobin A1c (12/10/2013 10:30 AM EST) Hemoglobin A1C 5.7 4.00 - 6.00 % [facility] Comment: DF by IF @ 12/10/2013 11:16 The [place] [employer] recommends maintenance of Hemoglobin A1C at 7.0% or lower. Goals for Hemoglobin A1C reduction may need to be modified if hypoglycemia is a problem. Mean Bld Glu Estim. 111 mg/dL [facility] Blood specimen (specimen) 12/10/2013 10:30 AM EST Narrative [facility] - 12/10/2013 11:16 AM EST Specimen Type: Blood Ingrid Lopez MD LAB BLOOD ORDERABLES Final Res ult Performing Organization Address [facility] de Phone Number [facility] [address] [place] [address], * Basic metabolic panel (12/10/2013 10:30 AM EST) Glucose 96 70 - 100 mg/dL [facility] BUN 16 6 - 20 mg/dL [facility] Creatinine 1.0 0.6 - 1.3 mg/dL [facility] Sodium 142 136 - 145 mmol/L [facility] Potassium 3.8 3.4 - 5.4 mmol/L [facility] Chloride 104 98 - 107 mmol/L [facility] CO2 28 20 - 31 mmol/L [facility] Calcium 9.6 8.7 - 10.4 mg/dL [facility] eGFR 60 ml/min/1.7 32 [facility] Comment: DF by IF @ 12/10/2013 11:21 National Kidney Foundation Guidelines Stage Description GFR 1 Normal or High 90+ 2 Mild decrease 60-89 3 Moderate decrease 30-59 4 Severe decrease 15-29 5 Kidney failure <15 Anion Gap 9 3 - 11 mmol/L [facility] Blood specimen (specimen) 12/10/2013 10:30 AM EST Narrative [facility] - 12/10/2013 11:21 AM EST Specimen Type: Blood Ingrid Lopez MD LAB BLOOD ORDERABLES Final Res ult [place] [address] [place] [address], * (ABNORMAL) CBC and Differential (12/10/2013 10:30 AM EST) WBC 6.61 3.50 - 10.80 [facility] RBC 4.85 3.89 - 5.14 /[facility] Hemoglobin 15.2 11.5 - 15.5 g/dL [facility] Hematocrit 43.6 34.5 - 44.0 % [facility] MCV 89.9 80.0 - 99.0 fL [facility] MCH 31.3(H) 27.0 - 31.0 pg [facility] MCHC 34.9 32.0 - 36.0 g/dL [facility] RDW-CV 13.2 11.3 - 14.5 % [facility] Platelets 330 150 - 450 K/[facility] Neutrophils Absolute 3.79 1.50 - 8.30 [facility] Lymphocytes Absolute 2.03 0.60 - 4.80 K/[facility] Monocytes Absolute 0.48 0.00 - 1.00 /[facility] Eosinophils Absolute 0.26 0.10 - 0.30 K/mcL [facility] Basophils Absolute 0.03 0.00 - 0.20 [facility] Neutrophil Rel % 57.3 41.0 - 71.0 % [facility] Lymphocyte Rel % 30.7 24.0 - 44.0 % [facility] Monocyte Rel % 7.3 0.0 - 12.0 % [facility] Eosinophil Rel % 3.9(H) 0.0 - 3.0 % [facility] Basophil Rel % 0.5 0.0 - 1.0 % [facility] Immature Granulocyte Rel % 0.3 0.0 - 0.6 % [facility] Blood specimen (specimen) 12/10/2013 10:30 AM EST Narrative [facility] - 12/10/2013 10:56 AM EST Specimen Type: Blood Ingrid Lopez MD LAB BLOOD ORDERABLES Final Res ult [facility] [address] [place] [address], * Urinalysis Without Microscopic (12/10/2013 10:26 AM EST) Color, UA Yellow [facility] Appearance, UA Clear [facility] pH, UA 5.5 4.5 - 8.0 [facility] Specific [place], UA 1.024 1.001 - 1.030 [facility] Glucose, UA Negative NEGATIVE mg/dL [facility] Ketones, UA Negative NEGATIVE [facility] Bilirubin, UA Negative NEGATIVE [facility] Blood, UA Negative NEGATIVE [facility] Protein, UA Negative NEGATIVE mg/dL [facility] Comment: DF by IF @ 12/10/2013 10:55 This test was previously referred to as Albumin Nitrite, UA Negative NEGATIVE [facility] Leukocytes, UA Negative NEGATIVE [facility] Urobilinogen, UA 0.2 0.2 - 1.0 mg/dL [facility] Urine specimen (specimen) Urine specimen obtained by clean catch procedure / Unknown 12/10/2013 10:26 AM EST Narrative [facility] - 12/10/2013 10:55 AM EST Specimen Type: Urine Specimen Source: Clean Catch Urine Microscopic not indicated. Ingrid Lopez MD URINE ORDERABLES Final Result Performing Organization Address City/State/[facility] Co de Phone Number [facility] [address] [place] [address], documented in this encounter Visit Diagnoses Not on filedocumented in this encounter Care Teams Professional Organizer Relationship Specialty Start Date End Date Michael Baez MD [facility] [address] [place] [address] PCP - General Adolescent Medicine 04/25/23 documented as of this encounter
--- OUTSIDE RECORDS SUMMARY | 2025-11-22 08:19 | XMS_ITS | Clinical Summary ---
Author Organization [facility] [place] Address [address] [address] Phone Care Team Providers Care Integrity Specialist Name Role Phone Unavailable Primary Care [...] age to complete this topic Insurance [employer] [facility] [place] [address] MEDICARE [place] PART A AND B
--- OUTSIDE RECORDS SUMMARY | 2025-11-22 08:19 | XMS_ITS | Encounter Summary ---
Author Organization [employer] ([place], [place], [place], [place], [place]) Address [address] [place] [address] Care Team Providers Care Research Administrator Name Role Phone Unavailable Primary Care Provider Unavailabl e Encounter Details Date Type Department Care Team (Late st Contact Info) Description 03/17/2019 Transcribed Document [facility] Family Medicine [address] [place] [address] ProviderCarlitos MD [address] [place] [address] Social History Tobacco Use Types [...] Rafael Virk M.D. CC2: Dr. Marily Lynn documented in this encounter Plan of Treatment Not on file documented as of this encounter Visit Diagnoses Not on filedocumented in this encounter
--- OUTSIDE RECORDS SUMMARY | 2025-11-22 08:19 | XMS_ITS | Encounter Summary ---
Author Organization [facility] Address [address] [place] [address] Care Team Providers Care Party Plan Demonstrator Name Role Phone Michael Baez MD Primary Care Provider Acacia Scott SEMI DRIVER Unavailable [phone] Virgilio Nguyễn Unavailable Reason for Visit * Reason Onset Date Comments Med Refill 10/20/2025 The pended medic ations have been requested for refill. Please send to Specialty Pharmacy. Encounter Details Date Type Department Care Team (Late st Contact Info) Description 10/20/2025 Refill [facility] [place] [address] [facility], [address] [place] [address] Acacia Scott, SEMI DRIVER [address] [place] [address] Social History Tobacco Use Types [...] time in the past 12 m [facility], were you homeless or living in [...] drink first t pippa in the morning (EYE-ROLL CHANGER) to 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 0 05/03/2025 CAGE Questionnaire Score 0 025 Utilities Answer Date Recorded In the past 12 months has th e InvitedHome, gas, oil, or water company threatened to shut off services in your home? No 05/08/2025 Comments No Sex and Gender Information Value Date Recorded Sex Assigned at Not on file Legal Sex Female 7:36 PM EDT Gender Identity Not on file Sexual Orientation Not on file documented as of this encounter Plan of Treatment Upcoming Encounters Date Type Department Care Team ([facility] st Contact Info) Description 03/15/2026 11:20 AM EDT Office Visit [place] [facility] [address] [place] [address] Kylah Alejandra, EMMY [address] [place] [address] documented as of this encounter Visit Diagnoses Not on filedocumented in this encounter Additional Health Concerns Assessment Noted Time A fall risk assessment has been complete d for the patient 08/07/2025 2:23 PM EDT A Body Mass Index follow-up plan has been documented for the patient 10/20/2025 4:20 PM EST documented as of this encounter Care Teams Party Plan Demonstrator Relationship Specialty Start Date End Date Michael Baez MD [facility] [address] [address] PCP - General 04/08/21 Acacia Scott APRN [address] [place] [phone] Nurse Practitioner Cardiology 03/27/22 Virgilio Nguyễn [phone] Referring Physician 10/07/24 documented as of this encounter
--- OUTSIDE RECORDS SUMMARY | 2025-11-22 08:19 | XMS_ITS | Encounter Summary ---
Author Organization [employer] ([place], [place], [place], [place], [place]) Address [address] [place] [address] Care Team Providers Care French Pastry Cook Name Role Phone Unavailable Primary Care Provider Unavailabl e Encounter Details Date Type Department Care Team (Late st Contact Info) Description 05/06/2019 Transcribed Document [facility] Family Medicine [facility] [place] [address] ProviderCarlitos MD [address] [id number] Social History Tobacco Use Types Packs/Day Years [...] no sleepiness and scores 0/24 in the [place] Sleepiness Scale. OTHER MEDICAL PROBLEMS: Include atrial fibrillation for which she is scheduled to see an physician general practice in the next several days. She has [...]
--- OUTSIDE RECORDS SUMMARY | 2025-11-22 08:19 | XMS_ITS | Data Portability ---
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 [email or web address] Not available 07/19/2022 16:04:36 Plan of Treatment Reminders Order Date Submit Date Provider Last Modified By Organization Details Last Modified Time Details Appointments None recorded. Lab multiple inhalant allergen IgE Ab, quant, serum 2021 [facility], [address] [place] [address], [id number], 15:40:50 CBC w/ auto diff 2021 [facility], [address] [place] [address], [id number], 12:35:49 IgE, quantitati ve, serum 2021 [facility], [address] [place] [address], [id number], 12:35:47 Referral None recorded. Procedures pulse oximetry with exercise (PROC) 2021 aerwin [facility], [address] [place] [address], [id number], 11:34:39 Surgeries None recorded. Imaging RF, esophagus, w/ contrast PO 2021 022 [email or web address] 15 [facility], [address] [place] [address], [id number], 07:06:25 CT, chest, w/o contrast 2021 [facility], [address] [place] [address], [address], 05/27/202 2 12:21:46 Medication Orders prednisone 20 mg tablet 2021 022 DONNIE [facility], [address] [place] [address] D[place] ID, [id number], 2 11:38:48 Levaquin 500 mg tablet [address] [facility], [address] [place] [address] [place], [id number], 2 13:07:02 prednisone 20 mg tablet [address] [facility], [address] [place] [address] [place], [id number], 2 13:07:17 cefdinir 300 mg capsule 2018 019 [email or web address] 0 [facility], [address] [place] [address] [place], [id number], 0 14:58:08 prednisone 20 mg tablet [address] [facility], [address] [place] [address] D[place] ID, [id number], 2 13:07:17 Ventolin HFA 90 mcg/actuat ion aerosol inhaler 2018 019 INTERFACE [facility], [facility], [address] [place] [address] [place], [id number], 9 15:30:58 Trelegy Ellipta 100 mcg-62.5 mcg-25 mcg powder for inhalation [address], [address] [place] [address] [place], [id number], 2 13:07:57 ipratropiu m 0.5 mg-albuter ol 3 mg (2.5 mg base)/3 mL nebulizati on soln 2018 019 [email or web address] [facility], [address], [place], [place], [id number], 14:21:09 Patient TargetsNo targets recorded. Patient Instructions Encounter Date Encounter Id Patient Instructions Last Modified By Organization Details Last Modified Time 08/07/2019 [id number] learning about chronic bronchitis aerwin Not available 08/07/2019 15:27:27 chronic obstruct yunier pulmonary disease (COPD): care instructions aerwin Not available 08/07/2019 15:30:40 learning about c opd and how to prevent lung infections aerwin Not available 08/07/2019 15:30:40 Return to clinic in 6 months. aerwin Not available 08/07/2019 16:08:48 12/11/2019 [id number] influenza (flu) vaccine: care instructions aerwin Not available 12/15/2019 08:02:22 pneumonia: care instructions aerwin Not available 12/11/2019 16:00:07 chronic obstruct yunier pulmonary disease (COPD): care instructions aerwin Not available 12/15/2019 08:02:22 learning about c opd and how to prevent lung infections aerwin Not available 12/15/2019 08:02:22 04/20/2022 [id number] I will call her with further recommendations after CT results returns. aerwin Not available 04/20/2022 14:21:28 06/21/2022 [id number] rtc after barium swallow/labs aerwin Not available 06/21/2022 16:32:39 Reason for Referral None Reported. Results Created Date Observation Date Name Description Value Unit Range Abnormal Flag Note LastModifiedBy Organization Detail LastModifiedTime 06/21/2006/21/2022 COMPL ETE BLOOD COUNT white blood cells 6.1 K/uL 3.8-10 .8 normal Not Available [facility] [address] [place], [address], 06/21/2022 12:35:49 06/21/2006/21/2022 COMPL ETE BLOOD COUNT red blood cells 4.73 M/uL 3.80-5 .20 normal Not Available [facility] [address] [place] [address], [address], 06/21/2022 12:35:49 06/21/20 22 06/21/2022 COMPL ETE BLOOD COUNT hemoglobin 14.6 g/dL 12.0-1 6.0 normal Not Available [facility] [address] [place] [address], [address], 06/21/2022 12:35:49 06/21/20 22 06/21/2022 COMPL ETE BLOOD COUNT hematocrit 42.6 % 35.0-4 7.0 normal Not Available [facility] [address] [place] [address], [address], 06/21/2022 12:35:49 06/21/20 22 06/21/2022 COMPL ETE BLOOD COUNT MCV 90 fL 80-100 normal Not Available [facility] [address] [place] [address], [address], 06/21/2022 12:35:49 06/21/20 22 06/21/2022 COMPL ETE BLOOD COUNT MCH 31 pg 26-35 normal Not Available [facility] [address] [place] [address], [address], 06/21/2022 12:35:49 06/21/20 22 06/21/2022 COMPL ETE BLOOD COUNT MCHC 34 g/dL 32-36 normal Not Available [facility] [address] [place] [address], [address], 06/21/2022 12:35:49 06/21/20 22 06/21/2022 COMPL ETE BLOOD COUNT RDW 13.9 % 11.0-1 5.0 normal Not Available [facility] [address] [place] [address], [address], 06/21/2022 12:35:49 06/21/20 22 06/21/2022 COMPL ETE BLOOD COUNT MPV 6.9 fL 6.2-10 .5 normal Not Available [facility] [address] [place] [address], [address], 06/21/2022 12:35:49 06/21/20 22 06/21/2022 COMPL ETE BLOOD COUNT platelet count 296 K/uL 130-40 0 normal Not Available [facility] [address] [place] [address], [address], 06/21/2022 12:35:49 06/21/20 22 06/21/2022 COMPL ETE BLOOD COUNT neutrophil,a bsolute 3.2 K/uL 1.6-8. 4 normal Not Available [facility] [address] [place] [address], [address], 06/21/2022 12:35:49 06/21/20 22 06/21/2022 COMPL ETE BLOOD COUNT lymphocyte,a bsolute 2.1 K/uL 0.4-5. 1 normal Not Available [facility] [address] [place] [address], [address], 06/21/2022 12:35:49 06/21/20 22 06/21/2022 COMPL ETE BLOOD COUNT monocyte,abs olute 0.5 K/uL 0.0-1. 2 normal Not Available [facility] [address] [place] [address], [address], 06/21/2022 12:35:49 06/21/20 22 06/21/2022 COMPL ETE BLOOD COUNT eosinophil,a bsolute 0.3 K/uL 0.0-0. 8 normal Not Available [facility] [address] [place] [address], [address], 06/21/2022 12:35:49 06/21/20 22 06/21/2022 COMPL ETE BLOOD COUNT basophil,abs olute 0.0 K/uL 0.0-0. 3 normal Not Available [facility] [address] [place] [address], [address], 06/21/2022 12:35:49 06/21/20 22 06/21/2022 COMPL ETE BLOOD COUNT % neutrophils 51.6 % 42.0-7 8.0 normal Not Available [facility] [address] [place] [address], [address], 06/21/2022 12:35:49 06/21/20 22 06/21/2022 COMPL ETE BLOOD COUNT % lymphocytes 34.5 % 11.0-4 7.0 normal Not Available [facility] [address] [place] [address], [address], 06/21/2022 12:35:49 06/21/20 22 06/21/2022 COMPL ETE BLOOD COUNT % monocytes 7.9 % 0.0-11 .0 normal Not Available [facility] [address] [place] [address], [address], 06/21/2022 12:35:49 06/21/20 22 06/21/2022 COMPL ETE BLOOD COUNT % eosinophils 5.3 % 0.0-7. 0 normal Not Available [facility] [address] [place] [address], [address], 06/21/2022 12:35:49 06/21/20 22 06/21/2022 COMPL ETE BLOOD COUNT % basophils 0.7 % 0.0-3. 0 normal Not Available [facility] [address] [place] [address], [address], 06/21/2022 12:35:49 06/21/20 22 06/21/2022 COMPL ETE BLOOD COUNT nucleated red cells 0.0 % 0.0-0. 9 normal Not Available [facility] [address] [place] [address], [address], 06/21/2022 12:35:49 06/21/20 22 06/21/2022 COMPL ETE BLOOD COUNT nucleated RBCs, absolute 0.00 K/uL not estab. normal Not Available [facility] [address] [place], [address], 06/21/2022 12:35:49 06/21/20 22 06/23/2022 IGE, TOTAL IgE, total 678 kU/L <or=11 4 high TEST PERFO RMED AT: [facility] [address] [place] [address] NGHIA Brown MD Not Available [facility] [address] [place], [address], 06/23/2022 12:35:47 07/18/20 22 07/19/2022 COMPR EHENS [...] S [facility] [address] [address] NGHIA Brown MD Not Available [facility] [address] [place] [address], [address], 07/19/2022 15:40:50 07/18/20 22 07/19/2022 COMPR EHENS YUNIER INHAL ANT PANEL cottonwood tree <0.10 kU/L normal Not Available [facility] [address] [place] [address], [address], 07/19/2022 15:40:50 07/18/20 22 07/19/2022 COMPR EHENS YUNIER INHAL ANT PANEL class 0 normal Not Available [facility] [address] [place] [address], [address], 07/19/2022 15:40:50 07/18/20 22 07/19/2022 COMPR EHENS YUNIER INHAL ANT PANEL white debby <0.10 kU/L normal Not Available [facility] [address] [place] [address], [address], 07/19/2022 15:40:50 07/18/20 22 07/19/2022 COMPR EHENS YUNIER INHAL ANT PANEL class 0 normal Not Available [facility] [address] [place] [address], [address], 07/19/2022 15:40:50 07/18/20 22 07/19/2022 COMPR EHENS YUNIER INHAL ANT PANEL white pine <0.10 kU/L normal Not Available [facility] [address] [place] [address], [address], 07/19/2022 15:40:50 07/18/20 22 07/19/2022 COMPR EHENS YUNIER INHAL ANT PANEL class 0 normal Not Available [facility] [address] [place] [address], [address], 07/19/2022 15:40:50 07/18/20 22 07/19/2022 COMPR EHENS YUNIER INHAL ANT PANEL CAT dander <0.10 kU/L normal Not Available [facility] [address] [place] [address], [address], 07/19/2022 15:40:50 07/18/20 22 07/19/2022 COMPR EHENS YUNIER INHAL ANT PANEL class 0 normal Not Available [facility] [address] [place] [address], [address], 07/19/2022 15:40:50 07/18/20 22 07/19/2022 COMPR EHENS YUNIER INHAL ANT PANEL horse dander <0.10 kU/L normal Not Available [facility] [address] [place] [address], [address], 07/19/2022 15:40:50 07/18/20 22 07/19/2022 COMPR EHENS YUNIER INHAL ANT PANEL class 0 normal Not Available [facility] [address] [place] [address], [address], 07/19/2022 15:40:50 07/18/20 22 07/19/2022 COMPR EHENS YUNIER INHAL ANT PANEL cow dander <0.10 kU/L normal Not Available [facility] [address] [place] [address], [address], 07/19/2022 15:40:50 07/18/20 22 07/19/2022 COMPR EHENS YUNIER INHAL ANT PANEL class 0 normal Not Available [facility] [address] [place] [address], [address], 07/19/2022 15:40:50 07/18/20 22 07/19/2022 COMPR EHENS YUNIER INHAL ANT PANEL dog dander 0.17 kU/L high Not Available [facility] [address] [place] [address], [address], 07/19/2022 15:40:50 07/18/20 22 07/19/2022 COMPR EHENS YUNIER INHAL ANT PANEL class 0/1 normal Not Available [facility] [address] [place] [address], [address], 07/19/2022 15:40:50 07/18/20 22 07/19/2022 COMPR EHENS YUNIER INHAL ANT PANEL goose feathers <0.10 kU/L normal Not Available [facility] [address] [place] [address], [address], 07/19/2022 15:40:50 07/18/20 22 07/19/2022 COMPR EHENS YUNIER INHAL ANT PANEL class 0 normal Not Available [facility] [address] [place] [address], [address], 07/19/2022 15:40:50 07/18/20 22 07/19/2022 COMPR EHENS YUNIER INHAL ANT PANEL penicillium notatum <0.10 kU/L normal Not Available [facility] [address] [place] [address], [address], 07/19/2022 15:40:50 07/18/20 22 07/19/2022 COMPR EHENS YUNIER INHAL ANT PANEL class 0 normal Not Available [facility] [address] [place] [address], [address], 07/19/2022 15:40:50 07/18/20 22 07/19/2022 COMPR EHENS YUNIER INHAL ANT PANEL cladosporium herbarum <0.10 kU/L normal Not Available [facility] [address] [place] [address], [address], 07/19/2022 15:40:50 07/18/20 22 07/19/2022 COMPR EHENS YUNIER INHAL ANT PANEL class 0 normal Not Available [facility] [address] [place] [address], [address], 07/19/2022 15:40:50 07/18/20 22 07/19/2022 COMPR EHENS YUNIER INHAL ANT PANEL aspergillus fumigatus <0.10 kU/L normal Not Available [facility] [address] [place] [address], [address], 07/19/2022 15:40:50 07/18/20 22 07/19/2022 COMPR EHENS YUNIER INHAL ANT PANEL class 0 normal Not Available [facility] [address] [place] [address], [address], 07/19/2022 15:40:50 07/18/20 22 07/19/2022 COMPR EHENS YUNIER INHAL ANT PANEL mucor racemosus <0.10 kU/L normal Not Available [facility] [address] [place] [address], [address], 07/19/2022 15:40:50 07/18/20 22 07/19/2022 COMPR EHENS YUNIER INHAL ANT PANEL class 0 normal Not Available [facility] [address] [place] [address], [address], 07/19/2022 15:40:50 07/18/20 22 07/19/2022 COMPR EHENS YUNIER INHAL ANT PANEL dorie albicans <0.10 kU/L normal Not Available [facility] [address] [place] [address], [address], 07/19/2022 15:40:50 07/18/20 22 07/19/2022 COMPR EHENS YUNIER INHAL ANT PANEL class 0 normal Not Available [facility] [address] [place] [address], [address], 07/19/2022 15:40:50 07/18/20 22 07/19/2022 COMPR EHENS YNUIER INHAL ANT PANEL alternaria alternata <0.10 kU/L normal Not Available [facility] [address] [place] [address], [address], 07/19/2022 15:40:50 07/18/20 22 07/19/2022 COMPR EHENS YUNIER INHAL ANT PANEL class 0 normal Not Available [facility] [address] [place] [address], [address], 07/19/2022 15:40:50 07/18/20 22 07/19/2022 COMPR EHENS YUNIER INHAL ANT PANEL D. farinae <0.10 kU/L normal Not Available [facility] [address] [place] [address], [address], 07/19/2022 15:40:50 07/18/20 22 07/19/2022 COMPR EHENS YUNIER INHAL ANT PANEL class 0 normal Not Available [facility] [address] [place] [address], [address], 07/19/2022 15:40:50 07/18/20 22 07/19/2022 COMPR EHENS YUNIER INHAL ANT PANEL D. pteronyssinu s <0.10 kU/L normal Not Available [facility] [address] [place] [address], [address], 07/19/2022 15:40:50 07/18/20 22 07/19/2022 COMPR EHENS YUNIER INHAL ANT PANEL class 0 normal Not Available [facility] [address] [place] [address], [address], 07/19/2022 15:40:50 07/18/20 22 07/19/2022 COMPR EHENS YUNIER INHAL ANT PANEL cockroach <0.10 kU/L normal Not Available [facility] [address] [place] [address], [address], 07/19/2022 15:40:50 07/18/20 22 07/19/2022 COMPR EHENS YUNIER INHAL ANT PANEL class 0 normal Not Available [facility] [address] [place] [address], [address], 07/19/2022 15:40:50 07/18/20 22 07/19/2022 COMPR EHENS YUNIER INHAL ANT PANEL epicoccum purpurasce <0.10 kU/L normal Not Available [facility] [address] [place] [address], [address], 07/19/2022 15:40:50 07/18/20 22 07/19/2022 COMPR EHENS YUNIER INHAL ANT PANEL class 0 normal Not Available [facility] [address] [place] [address], [address], 07/19/2022 15:40:50 07/18/20 22 07/19/2022 COMPR EHENS YUNIER INHAL ANT PANEL fusarium moniliforme <0.10 kU/L normal Not Available [facility] [address] [place] [address], [address], 07/19/2022 15:40:50 07/18/20 22 07/19/2022 COMPR EHENS YUNIER INHAL ANT PANEL class 0 normal Not Available [facility] [address] [place] [address], [address], 07/19/2022 15:40:50 07/18/20 22 07/19/2022 COMPR EHENS YUNIER INHAL ANT PANEL rhizopus nigricans <0.10 kU/L normal Not Available [facility] [address] [place] [address], [address], 07/19/2022 15:40:50 07/18/20 22 07/19/2022 COMPR EHENS YUNIER INHAL ANT PANEL class 0 normal Not Available [facility] [address] [place] [address], [address], 07/19/2022 15:40:50 07/18/20 22 07/19/2022 COMPR EHENS YUNIER INHAL ANT PANEL stemph. botryosum <0.10 kU/L normal Not Available [facility] [address] [place] [address], [address], 07/19/2022 15:40:50 07/18/20 22 07/19/2022 COMPR EHENS YUNIER INHAL ANT PANEL class 0 normal TEST PERFO RMED AT: [facility] [address] [facility] [place] [phone] NGHIA Brown MD Not Available [facility] [address] [place] [address], [address], 07/19/2022 15:40:50 07/18/20 22 07/19/2022 COMPR EHENS YUNIER INHAL ANT PANEL rabbit epithelia <0.10 kU/L normal Not Available [facility] [address] [place] [address], [address], 07/19/2022 15:40:50 07/18/20 22 07/19/2022 COMPR EHENS YUNIER INHAL ANT PANEL class 0 normal Not Available [facility] [address] [place] [address], [address], 07/19/2022 15:40:50 07/18/20 22 07/19/2022 COMPR EHENS YUNIER INHAL ANT PANEL guinea pig epithelia <0.10 kU/L normal Not Available [facility] [address] [place] [address], [address], 07/19/2022 15:40:50 07/18/20 22 07/19/2022 COMPR EHENS YUNIER INHAL ANT PANEL class 0 normal Not Available [facility] [address] [place] [address], [address], 07/19/2022 15:40:50 07/18/20 22 07/19/2022 COMPR EHENS YUNIER INHAL ANT PANEL willow <0.10 kU/L normal Not Available [facility] [address] [place] [address], [address], 07/19/2022 15:40:50 07/18/20 22 07/19/2022 COMPR EHENS YUNIER INHAL ANT PANEL class 0 normal Not Available [facility] [address] [place] [address], [address], 07/19/2022 15:40:50 07/18/20 22 07/19/2022 COMPR EHENS YUNIER INHAL ANT PANEL IgE, total 664 kU/L <or=11 4 high Not Available [facility] [address] [place] [address], [address], 07/19/2022 15:46:06 07/18/20 22 07/19/2022 COMPR EHENS YUNIER INHAL ANT PANEL bermuda grass <0.10 kU/L normal Not Available [facility] [address] [place] [address], [address], 07/19/2022 15:46:06 07/18/20 22 07/19/2022 COMPR EHENS YUNIER INHAL ANT PANEL class 0 normal Not Available [facility] [address] [place] [address], [address], 07/19/2022 15:46:06 07/18/20 22 07/19/2022 COMPR EHENS YUNIER INHAL ANT PANEL ethan grass <0.10 kU/L normal Not Available [facility] [address] [place] [address], [address], 07/19/2022 15:46:06 07/18/20 22 07/19/2022 COMPR EHENS YUNIER INHAL ANT PANEL class 0 normal Not Available [facility] [address] [place] [address], [address], 07/19/2022 15:46:06 07/18/20 22 07/19/2022 COMPR EHENS YUNIER INHAL ANT PANEL dot grass (ky blue) <0.10 kU/L normal Not Available [facility] [address] [place] [address], [address], 07/19/2022 15:46:06 07/18/20 22 07/19/2022 COMPR EHENS YUNIER INHAL ANT PANEL class 0 normal Not Available [facility] [address] [place] [address], [address], 07/19/2022 15:46:06 07/18/20 22 07/19/2022 COMPR EHENS YUNIER INHAL ANT PANEL leonard grass <0.10 kU/L normal Not Available [facility] [address] [place], [address], 07/19/2022 15:46:06 07/18/20 22 07/19/2022 COMPR EHENS YUNIER INHAL ANT PANEL class 0 normal Not Available [facility] [address] [place] [address], [address], 07/19/2022 15:46:06 07/18/20 22 07/19/2022 COMPR EHENS YUNIER INHAL ANT PANEL common ragweed <0.10 kU/L normal Not Available [facility] [address] [place], [address], 07/19/2022 15:46:06 07/18/20 22 07/19/2022 COMPR EHENS YUNIER INHAL ANT PANEL class 0 normal Not Available [facility] [address] [place] [address], [address], 07/19/2022 15:46:06 07/18/20 22 07/19/2022 COMPR EHENS [...] PERFO RMED AT: [facility] [address] [facility] [address] NGHIA Brown MD Not Available [facility] [address] [place] [address], [address], 07/19/2022 15:46:06 07/18/20 22 07/19/2022 COMPR EHENS YUNIER INHAL ANT PANEL wormwood <0.10 kU/L normal Not Available [facility] [address] [place] [address], [address], 07/19/2022 15:46:06 07/18/20 22 07/19/2022 COMPR EHENS YUNIER INHAL ANT PANEL class 0 normal Not Available [facility] [address] [place] [address], [address], 07/19/2022 15:46:06 07/18/20 22 07/19/2022 COMPR EHENS YUNIER INHAL ANT PANEL upper sorbian plantain <0.10 kU/L normal Not Available [facility] [address] [place] [address], [address], 07/19/2022 15:46:06 07/18/20 22 07/19/2022 COMPR EHENS YUNIER INHAL ANT PANEL class 0 normal Not Available [facility] [address] [place] [address], [address], 07/19/2022 15:46:06 07/18/20 22 07/19/2022 COMPR EHENS YUNIER INHAL ANT PANEL lambs quarters <0.10 kU/L normal Not Available [facility] [address] [place] [address], [address], 07/19/2022 15:46:06 07/18/20 22 07/19/2022 COMPR EHENS YUNIER INHAL ANT PANEL class 0 normal Not Available [facility] [address] [place] [address], [address], 07/19/2022 15:46:06 07/18/20 22 07/19/2022 COMPR EHENS YUNIER INHAL ANT PANEL australian thistle <0.10 kU/L normal Not Available [facility] [address] [place] [address], [address], 07/19/2022 15:46:06 07/18/20 22 07/19/2022 COMPR EHENS YUNIER INHAL ANT PANEL class 0 normal Not Available [facility] [address] [place] [address], [address], 07/19/2022 15:46:06 07/18/20 22 07/19/2022 COMPR EHENS YUNIER INHAL ANT PANEL goldenrod <0.10 kU/L normal Not Available [facility] [address] [place] [address], [address], 07/19/2022 15:46:06 07/18/20 22 07/19/2022 COMPR EHENS YUNIER INHAL ANT PANEL class 0 normal Not Available [facility] [address] [place] [address], [address], 07/19/2022 15:46:06 07/18/20 22 07/19/2022 COMPR EHENS YUNIER INHAL ANT PANEL cocklebur <0.10 kU/L normal Not Available [facility] [address] [place] [address], [address], 07/19/2022 15:46:06 07/18/20 22 07/19/2022 COMPR EHENS YUNIER INHAL ANT PANEL class 0 normal Not Available [facility] [address] [place] [address], [address], 07/19/2022 15:46:06 07/18/20 22 07/19/2022 COMPR EHENS YUNIER INHAL ANT PANEL rough pigweed <0.10 kU/L normal Not Available [facility] [address] [place] [address], [address], 07/19/2022 15:46:06 07/18/20 22 07/19/2022 COMPR EHENS YUNIER INHAL ANT PANEL class 0 normal Not Available [facility] [address] [place] [address], [address], 07/19/2022 15:46:06 07/18/20 22 07/19/2022 COMPR EHENS YUNIER INHAL ANT PANEL sheep daryl <0.10 kU/L normal Not Available [facility] [address] [place] [address], [address], 07/19/2022 15:46:06 07/18/20 22 07/19/2022 COMPR EHENS YUNIER INHAL ANT PANEL class 0 normal Not Available [facility] [address] [place] [address], [address], 07/19/2022 15:46:06 07/18/20 22 07/19/2022 COMPR EHENS YUNIER INHAL ANT PANEL nettle <0.10 kU/L normal Not Available [facility] [address] [place] [address], [address], 07/19/2022 15:46:06 07/18/20 22 07/19/2022 COMPR EHENS YUNIER INHAL ANT PANEL class 0 normal Not Available [facility] [address] [place] [address], [address], 07/19/2022 15:46:06 07/18/20 22 07/19/2022 COMPR EHENS YUNIER INHAL ANT PANEL maple (box elder) <0.10 kU/L normal Not Available [facility] [address] [place] [address], [address], 07/19/2022 15:46:06 07/18/20 22 07/19/2022 COMPR EHENS YUNIER INHAL ANT PANEL class 0 normal Not Available [facility] [address] [place] [address], [address], 07/19/2022 15:46:06 07/18/20 22 07/19/2022 COMPR EHENS YUNIER INHAL ANT PANEL birch <0.10 kU/L normal Not Available [facility] [address] [place] [address], [address], 07/19/2022 15:46:06 07/18/20 22 07/19/2022 COMPR EHENS YUNIER INHAL ANT PANEL class 0 normal Not Available [facility] [address] [place] [address], [address], 07/19/2022 15:46:06 07/18/20 22 07/19/2022 COMPR EHENS YUNIER INHAL ANT PANEL mountain cedar <0.10 kU/L normal Not Available [facility] [address] [place] [address], [address], 07/19/2022 15:46:06 07/18/20 22 07/19/2022 COMPR EHENS YUNIER INHAL ANT PANEL class 0 normal Not Available [facility] [address] [place] [address], [address], 07/19/2022 15:46:06 07/18/20 22 07/19/2022 COMPR EHENS YUNIER INHAL ANT PANEL oak <0.10 kU/L normal Not Available [facility] [address] [place] [address], [address], 07/19/2022 15:46:06 07/18/20 22 07/19/2022 COMPR EHENS YUNIER INHAL ANT PANEL class 0 normal Not Available [facility] [address] [place] [address], [address], 07/19/2022 15:46:06 07/18/20 22 07/19/2022 COMPR EHENS YUNIER INHAL ANT PANEL elm <0.10 kU/L normal Not Available [facility] [address] [place] [address], [address], 07/19/2022 15:46:06 07/18/20 22 07/19/2022 COMPR EHENS YUNIER INHAL ANT PANEL class 0 normal Not Available [facility] [address] [place] [address], [address], 07/19/2022 15:46:06 07/18/20 22 07/19/2022 COMPR EHENS YUNIER INHAL ANT PANEL sycamore <0.10 kU/L normal Not Available [facility] [address] [place] [address], [address], 07/19/2022 15:46:06 07/18/20 22 07/19/2022 COMPR EHENS YUNIER INHAL ANT PANEL class 0 normal TEST PERFO RMED AT: [facility] [address] [facility], [place] [phone] NGHIA Brown MD Not Available [facility] [address] [place] [address], [address], 07/19/2022 15:46:06 07/18/20 22 07/19/2022 COMPR EHENS YUNIER INHAL ANT PANEL cottonwood tree <0.10 kU/L normal Not Available [facility] [address] [place] [address], [address], 07/19/2022 15:46:06 07/18/20 22 07/19/2022 COMPR EHENS YUNIER INHAL ANT PANEL class 0 normal Not Available [facility] [address] [place] [address], [address], 07/19/2022 15:46:06 07/18/20 22 07/19/2022 COMPR EHENS YUNIER INHAL ANT PANEL white debby <0.10 kU/L normal Not Available [facility] [address] [place] [address], [address], 07/19/2022 15:46:06 07/18/20 22 07/19/2022 COMPR EHENS YUNIER INHAL ANT PANEL class 0 normal Not Available [facility] [address] [place] [address], [address], 07/19/2022 15:46:06 07/18/20 22 07/19/2022 COMPR EHENS YUNIER INHAL ANT PANEL white pine <0.10 kU/L normal Not Available [facility] [address] [place] [address], [address], 07/19/2022 15:46:06 07/18/20 22 07/19/2022 COMPR EHENS YUNIER INHAL ANT PANEL class 0 normal Not Available [facility] [address] [place] [address], [address], 07/19/2022 15:46:06 07/18/20 22 07/19/2022 COMPR EHENS YUNIER INHAL ANT PANEL CAT dander <0.10 kU/L normal Not Available [facility] [address] [place] [address], [address], 07/19/2022 15:46:06 07/18/20 22 07/19/2022 COMPR EHENS YUNIER INHAL ANT PANEL class 0 normal Not Available [facility] [address] [place] [address], [address], 07/19/2022 15:46:06 07/18/20 22 07/19/2022 COMPR EHENS YUNIER INHAL ANT PANEL horse dander <0.10 kU/L normal Not Available [facility] [address] [place] [address], [address], 07/19/2022 15:46:06 07/18/20 22 07/19/2022 COMPR EHENS YUNIER INHAL ANT PANEL class 0 normal Not Available [facility] [address] [place] [address], [address], 07/19/2022 15:46:06 07/18/20 22 07/19/2022 COMPR EHENS YUNIER INHAL ANT PANEL cow dander <0.10 kU/L normal Not Available [facility] [address] [place] [address], [address], 07/19/2022 15:46:06 07/18/20 22 07/19/2022 COMPR EHENS YUNIER INHAL ANT PANEL class 0 normal Not Available [facility] [address] [place] [address], [address], 07/19/2022 15:46:06 07/18/20 22 07/19/2022 COMPR EHENS YUNIER INHAL ANT PANEL dog dander 0.17 kU/L high Not Available [facility] [address] [place] [address], [address], 07/19/2022 15:46:06 07/18/20 22 07/19/2022 COMPR EHENS YUNIER INHAL ANT PANEL class 0/1 normal Not Available [facility] [address] [place] [address], [address], 07/19/2022 15:46:06 07/18/20 22 07/19/2022 COMPR EHENS YUNIER INHAL ANT PANEL goose feathers <0.10 kU/L normal Not Available [facility] [address] [place] [address], [address], 07/19/2022 15:46:06 07/18/20 22 07/19/2022 COMPR EHENS YUNIER INHAL ANT PANEL class 0 normal Not Available [facility] [address] [place] [address], [address], 07/19/2022 15:46:06 07/18/20 22 07/19/2022 COMPR EHENS YUNIER INHAL ANT PANEL penicillium notatum <0.10 kU/L normal Not Available [facility] [address] [place] [address], [address], 07/19/2022 15:46:06 07/18/20 22 07/19/2022 COMPR EHENS YUNIER INHAL ANT PANEL class 0 normal Not Available [facility] [address] [place] [address], [address], 07/19/2022 15:46:06 07/18/20 22 07/19/2022 COMPR EHENS YUNIER INHAL ANT PANEL cladosporium herbarum <0.10 kU/L normal Not Available [facility] [address] [place] [address], [address], 07/19/2022 15:46:06 07/18/20 22 07/19/2022 COMPR EHENS YUNIER INHAL ANT PANEL class 0 normal Not Available [facility] [address] [place] [address], [address], 07/19/2022 15:46:06 07/18/20 22 07/19/2022 COMPR EHENS YUNIER INHAL ANT PANEL aspergillus fumigatus <0.10 kU/L normal Not Available [facility] [address] [place] [address], [address], 07/19/2022 15:46:06 07/18/20 22 07/19/2022 COMPR EHENS YUNIER INHAL ANT PANEL class 0 normal Not Available [facility] [address] [place] [address], [address], 07/19/2022 15:46:06 07/18/20 22 07/19/2022 COMPR EHENS YUNIER INHAL ANT PANEL mucor racemosus <0.10 kU/L normal Not Available [facility] [address] [place] [address], [address], 07/19/2022 15:46:06 07/18/20 22 07/19/2022 COMPR EHENS YUNIER INHAL ANT PANEL class 0 normal Not Available [facility] [address] [place] [address], [address], 07/19/2022 15:46:06 07/18/20 22 07/19/2022 COMPR EHENS YUNIER INHAL ANT PANEL dorie albicans <0.10 kU/L normal Not Available [facility] [address] [place] [address], [address], 07/19/2022 15:46:06 07/18/20 22 07/19/2022 COMPR EHENS YUNIER INHAL ANT PANEL class 0 normal Not Available [facility] [address] [place] [address], [address], 07/19/2022 15:46:06 07/18/20 22 07/19/2022 COMPR EHENS YUNIER INHAL ANT PANEL alternaria alternata <0.10 kU/L normal Not Available [facility] [address] [place] [address], [address], 07/19/2022 15:46:06 07/18/20 22 07/19/2022 COMPR EHENS YUNIER INHAL ANT PANEL class 0 normal Not Available [facility] [address] [place] [address], [address], 07/19/2022 15:46:06 07/18/20 22 07/19/2022 COMPR EHENS YUNIER INHAL ANT PANEL D. farinae <0.10 kU/L normal Not Available [facility] [address] [place] [address], [address], 07/19/2022 15:46:06 07/18/20 22 07/19/2022 COMPR EHENS YUNIER INHAL ANT PANEL class 0 normal Not Available [facility] [address] [place] [address], [address], 07/19/2022 15:46:06 07/18/20 22 07/19/2022 COMPR EHENS YUNIER INHAL ANT PANEL D. pteronyssinu s <0.10 kU/L normal Not Available [facility] [address] [place] [address], [address], 07/19/2022 15:46:06 07/18/20 22 07/19/2022 COMPR EHENS YUNIER INHAL ANT PANEL class 0 normal Not Available [facility] [address] [place] [address], [address], 07/19/2022 15:46:06 07/18/20 22 07/19/2022 COMPR EHENS YUNIER INHAL ANT PANEL cockroach <0.10 kU/L normal Not Available [facility] [address] [place] [address], [address], 07/19/2022 15:46:06 07/18/20 22 07/19/2022 COMPR EHENS YUNIER INHAL ANT PANEL class 0 normal Not Available [facility] [address] [place] [address], [address], 07/19/2022 15:46:06 07/18/20 22 07/19/2022 COMPR EHENS YUNIER INHAL ANT PANEL epicoccum purpurasce <0.10 kU/L normal Not Available [facility] [address] [place] [address], [address], 07/19/2022 15:46:06 07/18/20 22 07/19/2022 COMPR EHENS YUNIER INHAL ANT PANEL class 0 normal Not Available [facility] [address] [place] [address], [address], 07/19/2022 15:46:06 07/18/20 22 07/19/2022 COMPR EHENS YUNIER INHAL ANT PANEL fusarium moniliforme <0.10 kU/L normal Not Available [facility] [address] [place] [address], [address], 07/19/2022 15:46:06 07/18/20 22 07/19/2022 COMPR EHENS YUNIER INHAL ANT PANEL class 0 normal Not Available [facility] [address] [place] [address], [address], 07/19/2022 15:46:06 07/18/20 22 07/19/2022 COMPR EHENS YUNIER INHAL ANT PANEL rhizopus nigricans <0.10 kU/L normal Not Available [facility] [address] [place] [address], [address], 07/19/2022 15:46:06 07/18/20 22 07/19/2022 COMPR EHENS YUNIER INHAL ANT PANEL class 0 normal Not Available [facility] [address] [place] [address], [address], 07/19/2022 15:46:06 07/18/20 22 07/19/2022 COMPR EHENS YUNIER INHAL ANT PANEL stemph. botryosum <0.10 kU/L normal Not Available [facility] [address] [place] [address], [address], 07/19/2022 15:46:06 07/18/20 22 07/19/2022 COMPR EHENS YUNIER INHAL ANT PANEL class 0 normal TEST PERFO RMED AT: [facility] [address] [facility], [place] [phone] NGHIA Brown MD Not Available [facility] [address] [place] [address], [address], 07/19/2022 15:46:06 07/18/20 22 07/19/2022 COMPR EHENS YUNIER INHAL ANT PANEL rabbit epithelia <0.10 kU/L normal Not Available [facility] [address] [place] [address], [address], 07/19/2022 15:46:06 07/18/20 22 07/19/2022 COMPR EHENS YUNIER INHAL ANT PANEL class 0 normal Not Available [facility] [address] [place] [address], [address], 07/19/2022 15:46:06 07/18/20 22 07/19/2022 COMPR EHENS YUNIER INHAL ANT PANEL guinea pig epithelia <0.10 kU/L normal Not Available [facility] [address] [place] [address], [address], 07/19/2022 15:46:06 07/18/20 22 07/19/2022 COMPR EHENS YUNIER INHAL ANT PANEL class 0 normal Not Available [facility] [address] [place], [address], 07/19/2022 15:46:06 07/18/20 22 07/19/2022 COMPR EHENS YUNIER INHAL ANT PANEL willow <0.10 kU/L normal Not Available [facility] [address] [place] [address], [address], 07/19/2022 15:46:06 07/18/20 22 07/19/2022 COMPR EHENS YUNIER INHAL ANT PANEL class 0 normal Not Available [facility] [address] [place], [address], 07/19/2022 15:46:06 08/07/20 19 08/07/2019 LDCT, chest , for lung jose roberto r jennifer charles Formerly [facility] [address] [place] [id number] Patibre t Name: MANDA SANTACRUZ Stephanie Toi [...] icant abnorm ality was identi fied. FOR DIRECTOR OF ARCHIVES AL STATIS TICAL PURPOS E ONLY: Exam [...] Jo Karimi MD on 019 3:57 [facility] [address] [facility], [place], [address], 08/11/2019 09:00:15 12/11/19 20 12/10/2019 CT, chest , w/o contr ast No observ ation record ed. [email or web address] [facility] [address], [place], [id number], 12/12/2019 08:03:39 01/09/2012/10/2019 CT, angio gram, chest , w/ contr ast No observ ation record ed. BARCODE Not Available 2019 15:09:25 03/01/20 20 02/05/2020 XR, chest No observ ation record ed. [email or web address] [facility] [place] [address], [place], [id number], 03/01/2020 11:39:02 03/01/20 20 02/16/2020 NM, thyro id scan No observ ation record ed. [email or web address] [facility] [address], [place], [address], 03/01/2020 11:38:53 03/01/20 20 02/17/2020 XR, chest No observ ation record ed. aerwin [facility] [address], [place], [address], 03/01/2020 10:40:17 04/21/20 22 04/20/2022 CT, chest , w/o contr ast [facility] [address] [facility] [place] [id number] Patien t Name: MANDA prasad : [address] [facility] [place] er: CARMEL SHARMA EXAM DATE: 2021 EXAM: [...] Karimi MD on 022 12:16 PM aerwin [facility] [address] [place] [address], [address], 06/07/2022 11:27:33 06/23/20 22 06/23/2022 RF, valarieoph scott, w/ contr ast PO [facility] [address] [place] [address] [place] [id number] Patien t Name: MANDA Brown Patibre t [...] Ferrell MD on 022 11:45 AM aerwin [facility] [address] [place], [address], 01/04/2023 18:20:17 Result Notes Documentation Provider Name and Address Organization Details Recorded Time Ldct, Chest, For Lung Cancer Screening : [address] [address] Patient Name: SUSANNAH ANDRES Patient : 1950 [...] By: Dante Karimi MD EL SHARMA PA-C [address] [place] [address], [address], [facility] 08/11/2019 09:00:15 Ct, Chest, W/o Contrast : [place] [address] Patient Name: SUSANNAH ANDRES Patient : 1950 [...] By: Dante Karimi MD EL SHARMA PA-C [address] [place] [address], [address], [facility] 06/07/2022 11:27:33 Rf, Esophagus, W/ Contrast Po : [place] [address] Patient Name: SUSANNAH ANDRES Patient : 1950 [...] By: Mika Ferrell MD EL SHARMA PA-C [address] [place] [address], [address], [facility] 01/04/2023 18:20:17 Problems Name Problem SNOMED Code Status Onset Date Resolution Date Notes Provider Name and Address Organization Details Recorded Time Chronic obstructiv e pulmonary disease 73352936 Active 2016 CASTILLO SMALLWOOD MD [address] [place], [address] , [facility] 7 14:17:18 Gastroesop hageal reflux disease without esophagiti s 696539372 Active 2021 YAA WAYNE MD [address] [place], [address] , [facility] 2 15:23:11 Asthma-chr onic obstructiv e pulmonary disease overlap syndrome 0289383084612 9107 Active 2021 YAA WAYNE MD [address] [place], [address] , [facility] 2 15:23:14 Problem Notes None recorded. Procedures Surgical History Date Name Laterality Status Provider Name and Address Organization Details Recorded Time 07/18/20 22 Allergy Skin Test - Enviromental completed YAA WAYNE MD [address] [place], [address], [facility] 07/18/2022 19:38:28 06/21/20 22 Demonstration Aerosol/Generator/ Nebulizer/Opticham kennedi completed Karlaelvin Jackson [facility] 06/21/2022 10:39:12 06/21/20 22 Spirometry with Bronchodilator completed Karla Jackson [facility] 06/21/2022 10:21:28 02/25/20 20 placement of stent completed Tania Soto [facility] 04/20/2022 13:09:59 12/11/19 20 Spirometry completed CARMEL SHARMA PA-C [address] [place], [address], [facility] 12/11/2019 17:06:06 07/23/20 18 Diffusion Capacity completed CARMEL SHARMA PA-C [address] [place], [address] [place] [address] 07/23/2018 14:45:26 07/23/20 18 Lung Volumes, Plethysmography completed CARMEL SHARMA PA-C [address] [place], [address], [facility] 07/23/2018 14:45:35 07/23/20 18 Spirometry completed CARMEL SHARMA PA-C [address] [place], [address], [facility] 07/23/2018 14:45:48 06/12/20 18 Nebulizer Treatment completed Naya Garcia [facility] 06/12/2018 13:08:19 04/23/20 18 Nebulizer Treatment completed Yvrose Samano [facility] 04/23/2018 10:17:05 09/11/20 17 Nebulizer Treatment completed CASTILLO SMALLWOOD MD [address] [place], [address], [facility] 09/11/2017 14:28:29 08/27/20 17 Nebulizer Treatment completed Yvrose Samano [facility] 08/27/2017 11:10:15 CABG completed Yvrose Samano [facility] 08/27/2017 10:39:41 Total Hysterectomy completed Ginny Samano [facility] 08/27/2017 10:39:46 Knee Surgery completed Yvrose Samano [facility] 08/27/2017 10:39:51 Imaging Results None recorded. Procedure Notes None recorded. Medical Equipment None Reported. Allergies Allergen ID Allergen Name Allergen Category Reaction Reaction Severity Criticality Documentation Date Start Date Code Code System Note Provider Name and Address Organization Details Recorded Time 011534 Benadryl medicatio n itching Not available Not available 10/20/20162008 7 RxNorm Yvrose Samano [facility] 7 10:50:26 188475 Product containin g penicilli n (product) medicatio n rash Not available Not available 10/20/20162008 86438 8001 SNOMED Yvrose Samano [facility] 7 10:50:53 476112 codeine medicatio n vomiting Not available Not available 10/20/20162008 2670 RxNorm Yvrose Samano [facility] 7 10:50:46 248485 Valium medicatio n other Not available Not available 10/20/20162008 2 RxNorm MOOD IRAHETA ES Yvrosekimmie Samano [facility] 7 10:50:44 Medications Name Sig Start Date [...] tion route for 30 days. 2021 active [facility][id number] Not Available Not Available Not Available [...] subcutan eous route. active PA approved Auth#[id number] approved : 08/24/22- further notice Not Available [...] Updated DateTime 0 162.56 cm 31.1 kg/m2 70560.2 2 g 70 /min 94 % 16 /min 122/80 mm[Hg] Elizabeth Aldana [facility] 0 14:55:13 Date Recorded Body weight Oxygen saturation Heart rate Systolic And Diastolic Provider Name and Address Organization Details Last Updated DateTime 04/20/2022 55116.77 g 96 % 73 /min 131/80 mm[Hg] Tania Soto [facility] 04/20/2022 13:11:48 Date Recorded Body weight Heart rate Oxygen saturation Systolic And Diastolic Provider Name and Address Organization Details Last Updated DateTime 06/21/2022 11542.18 g 68 /min 97 % 124/72 mm[Hg] Le Pardo [facility] 06/21/2022 10:03:18 Date Recorded Body height Body mass index (BMI) Body weight Systolic And Diastolic Provider Name and Address Organization Details Last Updated DateTime 07/18/2022 162.56 cm 31.8 kg/m2 33925.59 g 128/80 mm[Hg] Sabi Ambrocio [facility] 07/18/2022 15:02:40 Date Recorded Body height Body mass index (BMI) Body weight Respiratory rate Heart rate Oxygen saturation Systolic And Diastolic Provider Name and Address Organization Details Last Updated DateTime 9 162.56 cm 31.8 kg/m2 12931.5 9 g 16 /min 60 /min 94 % 122/82 mm[Hg] Gricelda Bales [facility] 9 15:06:52 Social History Question Answer Notes LastModified by Organizat ion Details LastModified Time Tobacco Smoking Status Former [facility]oker [facility]2017 10:53:20 Exposure To Fumes No Information [...] Much Tobacco Do You Smoke? 2 PPD [email or web address] Information not available 07/23/2018 How Many Years Have You Smoked Tobacco? 50 Information not available 07/23/2018 Have You Recently [...] is your level of alcohol consumption? Occasional Information not available 07/23/2018 Have you been exposed to chemicals or toxins? No Information not available 06/21/2022 What is your occupation? RETIRED [email or web address] Information not available 07/23/2018 What is your exercise level? Occasional Information not available 06/21/2022 Mental Status None recorded. Family History Relationship Description Onset Age of this Age Resolved Age Notes LastModified by Organization Details LastModified Time Unspecified Relation Family history of malignant neoplasm [facility] Not available 2016 10:39:01 Unspecified Relation Diabetes mellitus [facility] Not available 2016 10:39:08 Unspecified Relation Alcoholism [facility] Not available 2016 10:39:13 Unspecified Relation Cerebrovascu lar accident [facility] Not available 12/2016 10:39:23 Unspecified Relation Hypertensive disorder [facility] Not available 2016 10:39:28 Medical History [...] high-dose, trivalent, PF 12/11/2019 completed Not Available [facility] 2019 02:48:26 Influenza, high-dose, trivalent, PF 08/22/2018 completed Not Available [facility] 2019 02:54:10 Past Encounters Encounter ID Performer Location Encounter Start Date Encounter Closed Date Diagnosis/Indication Diagnosis SNOMED-CT Code Diagnosis ICD10 Code Diagnosis IMO Codes Diagnosis Note [id number] FARHAD MCFARLAND PA-C [facility] [address] [place] [phone] 7 08/27/2017 10:02:16 08/27/2017 11:32:44 Overweight 772960618 E66.3 Acute exac erbation of chronic obstructive pulmonary disease 794470617 J44.1 [id number] CASTILLO SMALLWOOD MD [facility] [address] [place] [address] 09/11/2017 12:58:55 09/11/2017 15:35:31 Cough 33404316 R05 Acute sinusitis 21015474 J01.90 Acute bronchitis 8451872 2 J20.9 Chronic ob structive pulmonary disease 01963023 J44.9 [id number] FARHAD MCFARLAND PA-C [facility] [address] [place] [address] 7 04/23/2018 08:55:52 04/23/2018 10:46:37 Acute exacerbation of chronic obstructive pulmonary disease 101287278 J44.1 [id number] FARHAD MCFARLAND PA-C [facility] [address] [place] [address] 7 06/12/2018 12:04:54 06/12/2018 13:37:59 Acute exacerbation of chronic obstructive pulmonary disease 748389681 J44.1 Contusion of rib 9932004 06 S20.20XA [id number] CARMEL SHARMA PA-C PULMON[facility] [address] [place] [phone] 1 07/23/2018 08:26:14 07/23/2018 16:37:30 Chronic bronchitis 88567683 J42 Symptoms consistent with chronic bronchitis . [...] Requested immunizati on records. History of smoking 50361 46130 0789764 Z87.891 Patient is a candidate for CT chest Lung Cancer Screening due to smoking history. Patient is currently asymptomat ic with no signs or symptoms of lung cancer. Patient did participat e in shared decision making. We discussed the risks vs. benefits of CT Chest Lung Cancer Screening in detail. [id number] CARMEL SHARMA PA-C PULMONARY [address] [place] [address], [address] [place] [address] 1 08/22/2018 10:21:11 08/22/2018 16:25:55 Chronic bronchitis 15402126 J42 symptoms are currently improved. I did [...] again next year. Active or passive immunization 706564850 Z23 [id number] CARMEL SHARMA PA-C PULMONARY [address] [facility], [address] [place] [address] 01/30/2019 12:55:45 01/30/2019 14:35:38 History of smoking [id number] 9135708 Z87.891 Patient is a candidate for CT chest Lung Cancer Screening due to smoking history. Patient is currently asymptomat ic with no signs or symptoms of lung cancer. Patient did participat e in shared decision making. We discussed the risks vs. benefits of CT Chest Lung Cancer Screening in detail. Chronic bronchitis 44320 004 J42 respirator y symptoms have been well controlled on Trelegy Ellipta. She will continue this one inhalation daily. Use albuterol as needed. Currently no signs of acute infection. [id number] CARMEL SHARMA PA-C PULMONARY [address] [facility], [address] [place] [address] 08/07/2019 14:58:30 08/08/2019 08:10:40 Chronic bronchitis 92716860 J42 respirator y symptoms have been well controlled on Trelegy Ellipta. She will continue this one inhalation daily. Use albuterol as needed. Currently no signs of acute infection. Chronic ob structive pulmonary disease 51311700 J44.9 I prescribed her duo nebs to use in her nebulizer as needed. These were previously denied by insurance. I resent these again. Acute lowe r respiratory tract infection 591404602 J22 patient will go ahead and start Omnicef for respirator y tract infection. She will start prednisone if no improvemen t. patient will receive influenza vaccine at home after her acute infection has resolved. She will call if there is any worsening of symptoms. Former hea vy tobacco smoker [id number] [address] chest lung cancer screening will be repeated in 1 year. [id number] CARMEL SHARMA PA-C PULMONARY [address] [facility], [address] [place] [address] 12/11/2019 14:17:23 12/12/2019 09:30:56 Chronic obstructive pulmonary disease 81072252 J44.9 I did not make any changes in her regular medication regimen. Administra tion of influenza vaccine 72183668 Z23 Pneumonia 263981356 J18. 9 I prescribed her Levaquin for 10 days and 2 weeks of prednisone . Spirometry also shows worsening. we will review images when scanned into our radiology system. I do question that she may be aspirating with bilateral lower lobe pneumonia. she denies dysphagia but does have a small hiatal hernia. [id number] CARMEL SHARMA PA-C PULMONARY [address] [facility], [address] [place] [address] 04/20/2022 10:32:27 04/20/2022 14:40:53 Persistent cough 587371446 R05.3 due to her worsening cough, I ordered an HRCT of chest for further evaluation . She is having difficulty coughing up mucus. she does not have consistent mucus production therefore I did not order sputum cultures. she has had frequent exacerbati ons recently. Chronic ob structive pulmonary disease 72832398 J44.9 recommend to increase Breztri to 2 inhalation s twice daily. continue Combivent and albuterol nebs as needed. Former hea vy tobacco smoker 9127078951 02331 Z87.891 patient quit smoking in 2016. [id number] CARMEL SHARMA PA-C PULMONARY [address] [facility], [address] [place] [address] 06/21/2022 09:39:28 06/22/2022 07:06:25 Chronic obstructive pulmonary disease 66902982 J44.9 continue Breztri 2 inhalation s twice daily. continue Combivent and albuterol nebs as needed. will check IgE and CBC with diff, appears to be asthmatic component to this. She may benefit from a biologic. Former hea vy tobacco smoker [id number] 50717 Z87.891 patient quit smoking in 2016. Bronchiectasis 64708972 J47.9 continue flutter valve, nebs. Will consider vest. Persistent cough 4532971 02 R05.3 Start Prednisone x 2 weeks. I ordered a barium swallow. I suspect she may be aspirating . [id number] YAA WAYNE MD [facility] CLOSED [address] [facility] ,[address] [place] [address] 07/18/2022 14:23:29 07/20/2022 11:26:43 Asthma-chronic obstructive pulmonary disease overlap syndrome 6496810936 7821795 J44.9 Gastroesop hageal reflux disease without esophagitis 100518276 K21.9 Obesity 725622405 E66.9 Health Concerns Section Related Observation LastModified by Organization Detai ls LastModified Time None Recorded Concern Status LastModified by Organization Details LastModified Time None Recorded Advance Directives Directive None Recorded Payers Insurance Date Sequence Insurance Name Policy Number Policy Kuo Covered Member ID Kuo Member ID Guarantor Name 01/30/2018 2 UNSPECIFIED REMIT PAYOR Susannah Andres 11/13/2022 2 [facility] (MEDICA[facility]) Susannah Andres [id number] Susannah Andres 10/29/2017 2 UNSPECIFIED REMIT PAYOR Susannah Andres 11/13/2022 2 [facility] (MEDICAID REPLACEMENT - HMO) [id number] Susannah Andres [id number] Susannah Andres 11/13/2022 1 [employer] (MEDICARE REPLACEMENT/AD VANTAGE - PPO) Susannah Andres [id number] Susannah Andres 11/13/2022 2 [place] - FFS/TRADITIONA L Susannah Andres [id number] Susannah Andres 11/13/2022 1 MEDICARE-ID (MEDICARE) Susannah Andres [id number] Susannah Andres Notes Date Note Type Note Provider Name and Address Organization Details Recorded Time 08/07/2019 text/html Patient Has Chronic Bronchitis. She Is Currently Treated with Trelegy Ellipta. over the last 2 days, she has had increased cough, nasal congestion, wheezing, and dyspnea. Sputum is mainly white at this time. No fever or chills. Patient is a 41-gnwo-fmil smoking history. On average, she smoked one pack of cigarettes a day. She quit smoking approximately [address] chest lung cancer screening shows no suspicious nodules today. CARMEL ZACHARY, PA-C [address] [place], [address], [facility] 08/07/2019 16:09:15 12/11/2019 text/html Patient Has chronic [...] is vaping. CARMEL SHARMA PA-C [address] [place], [address], [facility] 12/11/2019 17:06:59 04/20/2022 text/html Patient Has chronic [...] since 2017. CARMEL SHARMA PA-C [address] [place], [address], [facility] 04/20/2022 14:21:55 06/21/2022 text/html Patient has chronic [...] odors or perfumes. CARMEL SHARMA PA-C [address] [place], [address], [facility] 06/21/2022 16:33:08 07/18/2022 text/html ROS as noted in the HPI Ms Adnres is a 71yoF with COPD who follows [...] with moderate gastroesophageal reflux. YAA WAYNE MD [facility] [place], [address], [facility] 07/19/2022 16:04:41 OBGyn Episode No OBEpisode recorded.
--- OUTSIDE RECORDS SUMMARY | 2025-11-22 08:19 | XMS_ITS | Encounter Summary ---
Author Organization [employer] ([place], [place], [place], [place], [place]) Address [address] [place] [address] Care Team Providers Care Silk Screen Operator Name Role Phone Unavailable Primary Care Provider Unavailabl e Encounter Details Date Type Department Care Team (Late st Contact Info) Description 02/18/2019 Transcribed Document [facility] [place] [address] ProviderCarlitos MD [address] [place], [place] [id number] Social History Tobacco Use Types Packs/Day Years [...]
--- OUTSIDE RECORDS SUMMARY | 2025-11-22 08:19 | XMS_ITS | Referral Summary ---
Author Organization [employer] ([place], [place], [place], [place], [place]) Address [address] [place] [address] Care Team Providers Care Belt Weaver Name Role Phone Unavailable Primary Care Provider [...]
--- OUTSIDE RECORDS SUMMARY | 2025-11-22 08:20 | XMS_ITS | Encounter Summary ---
Author Organization Healthcare Address [address] 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) to steady your nerves or to get [...] Visit [place] [facility] [address], [address] [place] [address] Kylah Alejandra PA [address] [place] [address] documented as of this encounter [...] documented as of this encounter Care Teams Divorce Attorney Relationship Specialty Start Date End Date Michael Baez MD [facility] [address] [address] PCP - General 04/08/21 Acacia Scott APRN [address] [place] [address] Nurse Practitioner Cardiology 03/27/22 Virgilio Nguyễn [address] Referring Physician 10/07/24 Elisa Camacho LPN [facility] None TCM Nurse 05/07/25 06/06/25 documented as of this encounter
[2025-11-22 08:40] LABS: Hematocrit 44.8 % (37.0-47.0); Hemoglobin 14.4 g/dL (12.2-16.2); Immature Granulocytes % 0.4 %; Mean Corpuscular HGB Conc 32.1 g/dL (31.8-35.4); Mean Corpuscular Hemoglobin 29.4 pg (27.0-31.2); Mean Corpuscular Volume 91.4 fl (81-99); Nucleated Red Blood Cells % 0 %; Platelet Count 356 K/mm3 (142-424); Red Blood Count 4.90 M/mm3 (4.20-5.40); Red Cell Distribution Width-SD 45.8 fL; White Blood Count 9.3 K/mm3 (4.8-10.8)
[2025-11-22 08:48] LABS: Chloride 104 mmol/L (98-107)
[2025-11-22 08:49] LABS: Sodium 140 mmol/L (136-145)
[2025-11-22 08:51] LABS: Alanine Aminotransferase 24 U/L (12-78); Alkaline Phosphatase 74 U/L (38-126); Anion Gap 9.7 mEq/L (5-15); Aspartate Amino Transferase 37 U/L (14-36); Bilirubin,Total 0.7 mg/dl (0.2-1.3); Blood Urea Nitrogen 7 mg/dl (7-17); Carbon Dioxide 29 mmol/L (22.0-30.0); Cholesterol 139 mg/dl (140-200); Creatinine Clearance Estimated 58 mL/min (50-200); Creatinine,Serum 0.70 mg/dl (0.52-1.04); Estimated Glomerular Filt Rate 82 ml/min (>60); GFR (African American) 99 ML/MIN (>60); Total Protein,Serum 7.7 g/dl (6.3-8.2); Triglycerides 97 mg/dl (30-150)
[2025-11-22 08:52] LABS: Calcium 9.3 mg/dl (8.4-10.2); Glucose 125 mg/dl (74-100); HDL Cholesterol 88 mg/dl (40-60)
[2025-11-22 08:54] LABS: Potassium 2.7 mmoL/L (3.5-5.1)
--- NOTE | 2025-11-22 08:54 | PC.NURSE ---
Dr. Mari notified of K+ of 2.7.
[2025-11-22 09:00] VITALS: BP 144/87; PULSE 84; RESP 18; O2SAT 95
--- NOTE | 2025-11-22 09:00 | ECG_ITS ---
APPROVED REPORT Exam: Resting ECG HR:81 bpm ECG Measurements Heart Rate 81 AXES NH 211 P 79 QRSd 100 QRS 37 QT 408 T 28 QTc 445 Conclusion SINUS RHYTHM WITH FIRST DEGREE AV BLOCK WITH FREQUENT VENTRICULAR PREMATURE COMPLEXES ST DEVIATION AND MODERATE T-WAVE ABNORMALITY, CONSIDER ANTEROLATERAL ISCHEMIA [-0.1+ mV T-WAVE IN V3-V6] ABNORMAL ECG INTERPRETATION BASED ON A DEFAULT AGE OF 40 YEARS Electronically signed by : FELIX ALVARADO, 11/24/2025 08:42:39
[2025-11-22] MEDS: 0.9 % SODIUM CHLORIDE 50 ML VIAL 100 ML IV (09:02)
[2025-11-22] MEDS: SODIUM CHLORIDE 0.9% 10ML SYR (RAD ONLY) 10 ML IV (09:02)
[2025-11-22] MEDS: IOPAMIDOL-370 (76%);100ML BOTTLE 160 ML IV (09:03)
[2025-11-22 09:06] LABS: Activated Partial Thrombo Time 24.9 seconds (22.8-30.6); INR 1.02 (0.9-1.1); Prothrombin Time 11.3 seconds (10.1-12.5)
[2025-11-22] MEDS: ONDANSETRON 4MG/2ML VIAL 4 MG IV (09:07)
[2025-11-22] MEDS: FENTANYL 100MCG/2ML VIAL 50 MCG IV (09:07)
[2025-11-22 09:08] LABS: Troponin I < 0.01 ng/ml (0.00-0.034)
[2025-11-22 09:08] LABS: Microscopic, Urine URINE MICROSCOPIC (MICROSCOPIC)
[2025-11-22 09:12] LABS: Magnesium 1.8 mg/dl (1.6-2.3)
[2025-11-22 09:22] LABS: Bilirubin,Urine Negative (Negative); Color,Urine YELLOW (Yellow); Glucose,Urine (UA) Negative (Negative); Ketones,Urine Negative (Negative); Leukocyte Esterase,Urine Negative (Negative); PH,Urine 6.5 (5.0-8.5); Protein,Urine Negative (Negative); Specific Gravity, Urine <= 1.005 (1.005-1.030); Urobilinogen,Urine 0.2 EU/dl (0.2)
[2025-11-22 09:29] LABS: Albumin Level 4.5 g/dl (3.5-5.0); Albumin/Globulin Ratio 1.4 (1.1-1.8); Globulin 3.2 g/dL (1.3-3.2)
[2025-11-22 09:30] VITALS: BP 141/91; PULSE 78; RESP 13; O2SAT 94
[2025-11-22 09:34] LABS: Phencyclidine Screen,Urine Negative ng/ml (<25)
[2025-11-22 09:35] LABS: Opiate Screen,Urine Negative ng/ml (<300)
[2025-11-22 09:36] LABS: Amphetamine/Metha Screen,Urine Negative ng/ml (<1000)
[2025-11-22 09:37] LABS: Barbiturates Screen,Urine Negative ng/ml (<200); Benzodiazepines Screen,Urine Negative ng/ml (<200)
[2025-11-22 09:39] LABS: Methadone Screen,Urine Negative ng/ml (<300)
--- NOTE | 2025-11-22 09:44 | PC.NURSE ---
Called [facility] for transfer, familia will call back.
[2025-11-22 10:15] VITALS: BP 160/78; PULSE 70; RESP 20; TEMP 36.8; O2SAT 96
== END 2025-11-22 10:45 | disposition short-term general hospital (02) ==
PROVIDERS: Emergency Provider Emergency Medicine; PCP Internal Medicine Adolescent Medicine
DX: I63.9 Cerebral infarction, unspecified (principal); S22.060A Wedge compression fracture of T7-T8 vertebra, initial encounter for closed fracture; S22.32XA Fracture of one rib, left side, initial encounter for closed fracture; E87.6 Hypokalemia; R29.709 NIHSS score 9; E04.1 Nontoxic single thyroid nodule; K63.9 Disease of intestine, unspecified; M25.552 Pain in left hip; I10 Essential (primary) hypertension; W06.XXXA Fall from bed, initial encounter; Z87.891 Personal history of nicotine dependence
CPT/HCPCS: 70450; 70496; 70498; 71275; 72125; 72192; 73552; 74174; 80053; 80061; 80307; 80320; 81001; 83735; 84484; 85025; 85610; 85730; 93005; 96365; 96366; 96375; 99285; 99291; J2405; J3010; J3480; Q9967